=== PATIENT | male | born 1955 | race Caucasian/White ===

== ENCOUNTER 2016-07-09 09:32 | Inpatient (IN) | payer BC ==
[2016-07-05 10:17] VITALS: BMI 38.0
[2016-07-09] VITALS (11 sets, daily range): BP systolic 129–181; BP diastolic 66–93; PULSE 77–93; TEMP 36.2–37.2; O2SAT 92–96; Ht 177.8 cm; Wt 120.5 kg
[~2016-07-09] VITALS: Ht 177.8 cm; Wt 120.5 kg
[~2016-07-09 09:32] MED LIST: DUTA0.5C PO; FERR325T5 PO; LATA0.009 OPB; LOSA25TA18 PO; METF1000 PO; PRLSR20 PO; ROSU40TA PO
[2016-07-09] MEDS ORDERED: LIDOCAINE HCL 2% 2 ML VIAL (20MG/ML) ONE (10:25)
[2016-07-09] MEDS ORDERED: PROPOFOL IV EMULSION 10 MG/ML 20 ML VIAL IV ONE (10:25)
--- NOTE | 2016-07-09 11:32 | Anesthesiology Progress Note ---
Anesthesia Progress Note Date of Service Jul 09, 2016. Progress Notes Patient evaluated and chart reviewed. Patient is a 61 year old M scheduled for an upper and lower endoscopy to evaluate anemia. He did have a stress test a few weeks ago which was abnormal with stress and he has been getting progressively short of breath. According to the patient, cardiology wanted to evaluate the source of anemia before proceeding with his coronary workup and potentially committing him to anti platelet therapy. Since this time he has been placed on iron supplementation which failed to significantly increase his hct and he is infact mildly more short of breath with exertion. I did check another H/H today and his hemoglobin was 8.2, which appears to be a low point for his recent labs. Given his probable coronary disease and significant symptoms, I feel that the patient could benefit from transfusion prior to undergoing a significant anesthetic and procedure. I have discussed the patient with the [facility] Hospitalist who will accept the patient on the floor and we will tenatively plan to proceed with his colonoscopy and EGD as soon as possible.
[2016-07-09] MEDS ORDERED: ONDANSETRON INJ 2 MG/ML 2 ML VIAL IV PRN (12:15)
[2016-07-09] MEDS ORDERED: GLUCOSE 10 TABS/TUBE PO PRN (12:15)
[2016-07-09] MEDS ORDERED: DEXTROSE 50% 50 ML SYR IV PRN (12:15)
[2016-07-09] MEDS ORDERED: GLUCOSE 40% GEL 15 GM TUBE PO PRN (12:15)
[2016-07-09] MEDS ORDERED: GLUCAGON FOR INJ 1 MG VIAL SQ PRN (12:15)
[2016-07-09] MEDS ORDERED: ACETAMINOPHEN 325 MG TAB PO PRN (12:15)
[2016-07-09] MEDS ORDERED: MULT-922 PO (12:22)
[2016-07-09] MEDS ORDERED: OXYC-57 PO (12:22)
[2016-07-09] MEDS ORDERED: TRMO2580 TOP (12:22)
--- NOTE | 2016-07-09 13:10 | History and Physical ---
History & Physical Date & Time of Service: Jul 09, 2016 at 12:29 Chief Complaint: Anemia, Fatigue, Beeper 770 Primary Care Physician: Fady Barone M.D. History of Present Illness Source: patient This is a 61 y/o male with PMHx of DM 2, REMBERTO on CPAP, HTN, Dyslipidemia and other problems as outlined below who presents to the hospital for upper and lower endoscopy to evaluate anemia. Pt reports that he has been experiencing progressively worsening exertional dyspnea for the past few months. He also reports 2 episodes of chest pain while at rest that he describes as 1/10 central chest "pressure" that does not radiate anywhere. The sxs lasted a few minutes before resolving completely. Pt had a stress test done a few weeks ago which was + for inducible ischemia. According to the patient, he was scheduled for a cardiac catheterization however the procedure was cancelled due to anemia and cardiology wanted to evaluate the source of anemia before proceeding with coronary workup. Patient presented to the endoscopy lab this morning for his scheduled procedures. His HgB was noted to be 8.2. In the setting of possible coronary disease, anesthesia felt patient would benefit from transfusion prior to being scoped. Pt denies fever/chills, palpitations, abd pain, N/V, hematochezia, melena, bladder issues, LE edema ,calf pain, lightheadedness/ dizziness. 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) Allergies Coded Allergies: Nickel (Verified Allergy, Unknown, RASH, 07/05/16) Tetanus Toxoid (Verified Allergy, Unknown, ITCHING AND RASH, 07/05/16) Home Medications Scheduled Dutasteride (Avodart), 0.5 MG PO QAM Ferrous Sulfate (Ferrous Sulfate), 1 TAB PO BID Latanoprost 0.005% Oph (Xalatan 0.005% Oph), 1 DROP OPB QPM Losartan Potassium (Cozaar), 25 MG PO HS Metformin Hcl (Glucophage), 1,000 MG PO BID Multiple Vitamins W/ Minerals (Multivitamin Adults), 1 TAB PO DAILY Omeprazole (Prilosec), 20 MG PO BID Rosuvastatin Calcium (Crestor), 40 MG PO HS Triamcinolone Acetonide (Topic (Triamcinolone Acet 0.025%), 1 APPLN TOP BID Scheduled PRN Oxycodone/Acetaminophen 5MG/325MG (Percocet 5MG/325MG), 1 TABLET PO Q6H PRN for Pain Review of Systems Constitutional: + fatigue, No chills, No fever, No sweats, No weakness Eyes: No worsening of vision ENT: No hearing loss Respiratory: + dyspnea on exertion, + shortness of breath, No cough, No dyspnea at rest Cardiovascular: + chest pain, No claudication, No edema, No palpitations Abdomen: No GI bleeding, No constipation, No diarrhea, No nausea, No pain, No vomiting Musculoskeletal: No calf pain, No swelling Genitourinary - Male: No dysuria Neurologic: No weakness Psychiatric: No depression symptoms Endocrine: + fatigue Hematologic / Lymphatic: No abnormal bleeding/bruising Integumentary: No new/changing skin lesions Physical Exam Vital Signs Date Time Temp Pulse Resp B/P Pulse Ox O2 Delivery O2 Flow Rate FiO2 07/09/16 10:18 36.9 81 20 131/76 96 Room Air General Appearance: WD/WN, no apparent distress, + obese, + pertinent finding ( Pt is sitting in bed with at bedside) Head: normocephalic, atraumatic Eyes: normal inspection ENT: hearing grossly normal Neck: supple Respiratory/Chest: chest non-tender, lungs clear, normal breath sounds, no respiratory distress Cardiovascular: regular rate, rhythm, no edema, no murmur Abdomen/GI: normal bowel sounds, non tender, soft Back: normal inspection Extremities/Musculoskelatal: normal inspection, no calf tenderness, no pedal edema Neurologic/Psych: alert, normal mood/affect, oriented x 3 Skin: normal color, warm/dry Diagnostics Laboratory Results Results Past 24 Hours Test 07/09/16 11:00 Range/Units Hemoglobin 8.2 14.0-18.0 g/dL Hematocrit 28.0 42-52 % Impression Assessment and Plan SYMPTOMATIC ANEMIA pt presented with exertional dyspnea for a few months -admit to med/surg -Hgb currently 8.2; will continue to monitor with H&H q 8h -will transfuse 2 units now in setting of possible coronary disease; transfuse PRN HgB <10 -check anemia panel -clear liquid diet; keep NPO after midnight -consult GI, Dr. Flores-plan for EGD and colonoscopy tmrw -pt appears to be hemodynamically stable -continue to monitor closely RECENT ABNORMAL STRESS TEST -stress test 06/22/16 + inducible ischemia -plan is for cardiac cath after anemia is addressed -pt currently denies chest pain -follows with cardiology, Dr. Trujillo DM 2 -recent A1C 7.4 -hold metformin -start ISS -monitor with BSG AC HS REMBERTO ON CPAP -pt may use CPAP brought from home BPH -cont Avodart GLAUCOMA -cont latanoprost HTN -BP stable -cont losartan -monitor DYSLIPIDEMIA -cont statin DVT PROPHYLAXIS -SCDs only in setting of GI bleed CODE STATUS -FULL CODE status per discussion with patient upon admission DISPO Pt seen in collaboration with Dr Ruiz. Please see his addendum for further details. Thanks! -Of note: patient will be followed by Dr. Gibbs starting tomorrow AM. VTE Prophylaxis VTE Risk Assessment Done? Y/N: Yes Risk Level: Moderate Note ATTENDING ADDENDUM Record reviewed. Patient interviewed and examined. Care coordinated with Genet Mejía PA-C. Please refer to her documentation for patient's history. Briefly, 61 YO male undergoing evaluation for progressive dyspnea on exertion. Recent outpatient stress test was positive. Found to be anemic. EGD and colonoscopy recommended to rule out GI pathology before proceeding with cardiac cath and possible PCI. EGD and colonoscopy were scheduled to be performed today. Found to have Hgb of 8.2, lower than last determination. Transfusion recommended before proceeding with endoscopies in light of positive stress test. Not experiencing any melena or hematochezia. EXAM: General- no distress VS- as noted Neck- no JVD Lungs- clear Heart- RRR, II/ systolic murmur at base Abdomen- + BS, soft, nontender Extremities- no pretibial edema or calf tenderness Neuro- alert, oriented DATA: Hgb 8.2. Fe 12, % transferrin sat 2, ferritin 5. Other lab studies as noted. ASSESSMENT AND PLAN: Microcytic anemia, Fe deficiency. Transfusion recommended before endoscopies in light of recent EST. Transfuse 2 units pRBC's today. Check repeat H/H in a.m. GI unable to perform elective endoscopies tomorrow, so they will need to be rescheduled as outpatient. Please refer to NNEKA Mejía's documentation for discussion of other issues. Hansel Ruiz MD .
[2016-07-09 14:21] LABS: BASO % 0.9 %; BASO ABS # 0.06 K/uL (0-0.2); HEMATOCRIT 29.4 % (42-52); IG% 0.3 %; LYMPH % 20.2 %; LYMPH ABS # 1.33 K/uL (1.2-3.4); MEAN CELL VOLUME 68.1 fL (80-100); MEAN CORPUSCULAR HEMOGLOBIN 20.1 pg (25-34); MEAN CORPUSCULAR HGB CONC 29.6 g/dl (32-36); MEAN PLATELET VOLUME 9.2 fL (7.4-10.4); MONO % 7.9 %; NEUT % 68.7 %; PLATELET COUNT 246 K/uL (130-400); RED BLOOD COUNT 4.32 M/uL (4.7-6.1); WHITE BLOOD COUNT 6.58 K/uL (4.8-10.8)
[2016-07-09 14:44] LABS: COMPLETE YES; GIANT PLATELETS 1+; MICROCYTOSIS PRESENT; POLYCHROMASIA 1+
[2016-07-09 14:45] LABS: BUN/CREATININE RATIO 9.2 (10-20); CALCIUM 8.9 mg/dl (8.5-10.1); CREATININE 0.73 mg/dl (0.60-1.40); POTASSIUM 3.8 mmol/L (3.5-5.1)
[2016-07-09 14:48] LABS: FERRITIN 5.1 ng/ml (8.0-388.0)
--- NOTE | 2016-07-09 15:06 | Gastrointestinal Consultation ---
Gastrointestinal Consultation Date of Consultation: Jul 09, 2016 Consulting Physician: Mark Reason for Consultation: anemia History of Present Illness Patient is a 61 year old male with past medical history significant for obstructive sleep apnea using CPAP, DMT2, dyslipidemia, BPH, anemia, obesity and HTN . He was scheduled for an EGD/Colonoscopy today with Dr. Flores. This was not completed due to low HGB and recent cardiac complaints of worsening SOB with activity. The case was cancelled by anesthesia because of concerns about cardiac risk factors and symptoms. He was admitted for blood transfusion and a thorough cardiac work up. 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 His SOB has progressively worsened over the course of this past month. He was seen and evaluated this afternoon. A repeat HGB was obtained today, 8.2. He denies any GI complaints at this time. He reports that he is very hungry and would like to eat if he is not having any procedures done over the weekend. He is sitting upright in bed with his . Denies any history of black/bloody stools or emesis. No fever, chills, chest pain, SOB at rest. Colonoscopy 12/07/[address] Vinson: The perianal and digital rectal examinations were normal. Pertinent negatives include normal sphincter tone and no palpable rectal lesions. The terminal ileum appeared normal. The entire examined colon appeared normal on direct and retroflexion views. EGD: not previously completed. 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) Allergies Coded Allergies: Nickel (Verified Allergy, Unknown, RASH, 07/05/16) Tetanus Toxoid (Verified Allergy, Unknown, ITCHING AND RASH, 07/05/16) Current Medications Home Meds and Scripts Medications Dose Route/Sig Max Daily Dose Days Date Category Multivitamin Adults (Multiple Vitamins W/ Minerals) 1 Tab Tab 1 Tab PO DAILY 07/09/16 Reported Triamcinolone Acet 0.025% (Triamcinolone Acetonide (Topic) 0.025 % Oin 1 Appln TOP BID 07/09/16 Reported Percocet 5MG/325MG (Oxycodone/Acetaminophen) Tab 1 Tablet PO Q6H PRN 07/09/16 Reported Crestor (Rosuvastatin Calcium) 40 Mg Tab 40 Mg PO HS 07/05/16 Reported Ferrous Sulfate 325 Mg Tab 1 Tab PO BID 07/05/16 Reported Prilosec (Omeprazole) 20 Mg Capcr 20 Mg PO BID 07/05/16 Reported Glucophage (Metformin Hcl) 1,000 Mg Tab 1,000 Mg PO BID 07/05/16 Reported Avodart (Dutasteride) 0.5 Mg Cap 0.5 Mg PO QAM 11/05/12 Reported Cozaar (Losartan Potassium) 25 Mg Tab 25 Mg PO HS 11/05/12 Reported Xalatan 0.005% Oph (Latanoprost) Soln 1 Drop OPB QPM 11/05/12 Reported Review of Systems Constitutional: No chills, No fever, No weakness, No weight loss Respiratory: + shortness of breath, No cough Cardiac: No chest pain, No edema Abdomen: No GI bleeding, No constipation, No diarrhea, No dysphagia, No nausea , No odynophagia, No pain, No vomiting Skin: No color change, No itch, No jaundice, No rash Physical Exam Date Time Temp Pulse Resp B/P Pulse Ox O2 Delivery O2 Flow Rate FiO2 07/09/16 13:20 36.2 77 18 130/83 93 Room Air 07/09/16 13:20 36.2 77 18 130/83 93 Room Air 07/09/16 13:20 93 Room Air 07/09/16 10:18 36.9 81 20 131/76 96 Room Air General Appearance: no apparent distress Eyes: PERRL, EOMI ENT: hearing grossly normal Neck: supple, trachea midline Respiratory/Chest: lungs clear, normal breath sounds, no respiratory distress, no accessory muscle use Cardiovascular: regular rate, rhythm, no edema, no gallop, no JVD, no murmur Abdomen: normal bowel sounds, non tender, soft, no organomegaly Neurologic/Psych: alert, normal mood/affect, oriented x 3 Skin: normal color, no jaundice, warm/dry, no rash Laboratory Results Last 24 Hours Test 07/09/16 11:00 07/09/16 13:05 07/09/16 14:06 Hemoglobin 8.2 g/dL 8.7 g/dL Hematocrit 28.0 % 29.4 % Absolute Reticulocyte Count 0.10 10^6/uL Percent Reticulocyte Count 2.4 % Transferrin % Saturation % White Blood Count 6.58 K/uL Red Blood Count 4.32 M/uL Mean Corpuscular Volume 68.1 fL Mean Corpuscular Hemoglobin 20.1 pg Mean Corpuscular Hemoglobin Concent 29.6 g/dl Platelet Count 246 K/uL Mean Platelet Volume 9.2 fL Neutrophils (%) (Auto) 68.7 % Lymphocytes (%) (Auto) 20.2 % Monocytes (%) (Auto) 7.9 % Eosinophils (%) (Auto) 2.0 % Basophils (%) (Auto) 0.9 % Neutrophils # (Auto) 4.52 K/uL Lymphocytes # (Auto) 1.33 K/uL Monocytes # (Auto) 0.52 K/uL Eosinophils # (Auto) 0.13 K/uL Basophils # (Auto) 0.06 K/uL RDW Standard Deviation 46.0 fL RDW Coefficient of Variation 18.4 % Immature Granulocyte % (Auto) 0.3 % Immature Granulocyte # (Auto) 0.02 K/uL Giant Platelets 1+ Polychromasia 1+ Microcytosis PRESENT Impression Patient is a 61 year old male with GEOFF who was scheduled for an EGD/Colonoscopy today. This was postponed due to recent cardiac stress test and progressively worsening SOB. Will plan for EGD/Colonoscopy on 07/12/16 if patient is still admitted. Plan GI "ok" to advance diet today. Trend H&H - Transfuse as needed Cardiology referral - appreciate input No GI contraindication to discharge - if patient is stable and without any acute GI symptoms, we can plan to complete EGD and colonoscopy as an outpatient. If patient is still admitted for additional work up, we can arrange for an inpatient EGD/Colonoscopy on Tuesday07/12/16 if cleared by cardiology and anesthesia. Please order colonoscopy prep if patient wishes to proceed with procedures and is still admitted. Start the patient on a clear liquid diet on . Complete colonoscopy prep with 20 mg Dulcolax at 1700, 119 gm of miralax mixed with Gatorade at 1700 and 119 gm of miralax mixed with Gatorade at 2100. NPO at 2355 on 07/11/16. I have personally seen and examined patient with CYNDI Pina on . Her note reflects my exam and findings. I agree with her impression and plan. Will arrange rescheduling for endoscopy. Gilberto Flores M.D.
[2016-07-09] MEDS: INSULIN ASPART 100 UNITS/ML 3 ML PEN SC SCH ×2 (18:33→21:59)
--- NOTE | 2016-07-09 20:53 | CARDIOLOGY CONSULTATION ---
DATE OF CONSULTATION: 07/09/2016 HISTORY OF PRESENT ILLNESS: Rafael Cantu is a 61-year-old male seen in cardiology consultation per the request of Carlita Khan of the [facility] gastroenterology service for evaluation of shortness of breath and abnormal stress testing. 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 He has noted an insidious onset of fatigue and shortness of breath that he believes has occurred over the last few months. He is not able to pinpoint exactly when he started feeling poorly, but he notes that typical activities that he tolerated well, he has to pause and rest in order to catch his breath. He feels fatigue, shortness of breath, and feels that his heart races rapidly when he has these episodes. He had seen his primary care provider, Dr. Barone, and further testing was performed. An echocardiogram had been performed at [facility] on 06/22/2016 that revealed a normal LVEF and mild aortic valve stenosis. A pharmacologic nuclear stress test revealed ischemia in the inferior, inferolateral hughes with preserved LVEF. The patient had, therefore, seen Dr. Lucho Trujillo of [facility] cardiology in [place] on 06/29/2016. Due to the patient's abnormal stress test and symptoms, outpatient cardiac catheterization had been arranged. As part of his preoperative testing, however, the patient was found to have new onset anemia with a hemoglobin of 8.4 g/dL. This was significantly changed from his last hemoglobin level that had been performed in 2008. Because of the anemia, he was referred back to his primary care provider for further evaluation. Iron studies were performed as an outpatient and revealed iron deficiency. The patient was scheduled to have an outpatient colonoscopy and EGD for further evaluation of the anemia today, but on arrival when his history was reviewed including the abnormal stress test and recent shortness of breath, the patient's procedure was canceled and it was determined that he would be admitted for further anemia evaluation. His initial hemoglobin today at [facility] was 8.2 with a hematocrit of 28. His total iron was low at 12, his percent saturation was low at 2. His kidney function was noted to be stable. On questioning, the patient notes that in addition to his shortness of breath, he has had progressive constipation. He believes he had a colonoscopy about 5 years ago and was told that he had no significant abnormalities at that time and routine repeat surveillance colonoscopy was recommended. PAST MEDICAL HISTORY: 1. Type 2 diabetes mellitus. 2. Dyslipidemia. 3. Hypertension. 4. Obesity. 5. Obstructive sleep apnea, on CPAP. 6. Benign prostatic hypertrophy. SURGICAL HISTORY: 1. History of tonsillectomy. 2. History of rotator cuff repair bilaterally. SOCIAL HISTORY: The patient is a former smoker, having smoked up to 3 packs per day for 40 years. He quit in 2012 and he noted interval improvement in his breathing. He is and lives with his spouse who accompanies him at the bedside. 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 FAMILY HISTORY: The patient's mother at age 56 due to complication of throat cancer. The patient's father in his 80s due to complications of emphysema per the best of his recollection. He has a sister who is alive and has no heart disease to the best of his knowledge. ALLERGIES: 1. NICKEL. 2. TETANUS TOXOID. HOME MEDICATIONS: Avodart 0.5 mg daily in a.m., ferrous sulfate 1 tablet p.o. b.i.d., latanoprost 1 drop daily in p.m., losartan 25 mg at bedtime, Glucophage 1000 mg p.o. b.i.d., multivitamin 1 tablet by mouth daily, omeprazole 20 mg b.i.d., rosuvastatin 40 mg daily, triamcinolone apply topically 2 times per day. As needed MEDICATIONS: Oxycodone/acetaminophen 1 tablet by mouth q. 6 hours p.r.n. pain. REVIEW OF SYSTEMS: A 12-point review of systems was reviewed and is negative with the exception of that above. PHYSICAL EXAMINATION: VITAL SIGNS: Temperature 36.9, heart rate 83, blood pressure 155/81, respiratory rate 16, pulse oximetry 94% on room air. GENERAL APPEARANCE: Awake and oriented x3, no acute distress. HEENT: Extraocular muscles are intact. Pupils equal and reactive to light. NECK: No bruits, no cervical lymphadenopathy. CARDIOVASCULAR: 1/6 systolic murmur heard best at the right sternal border. LUNGS: Clear. No rales, rhonchi or wheezing. ABDOMEN: Soft, nontender, nondistended. EXTREMITIES: No clubbing, cyanosis or edema. NEUROLOGIC: No focal deficits. DIAGNOSTIC DATA: Recent echocardiogram and stress test as outlined above. The patient has not had an EKG yet in the hospital. FINAL IMPRESSION: 61-year-old male. 1. Recent complaint of progressive fatigue and exertional shortness of breath. 2. Abnormal cardiac testing with recent nuclear stress testing revealing inferior, inferolateral ischemia, preserved LVEF. 3. Mild aortic valve stenosis. 4. Iron deficiency anemia. DISCUSSION AND RECOMMENDATIONS: When I interviewed the patient in room 351-2, he was feeling well. He was receiving the first of his 2 units of packed red blood cells and he was tolerating this well. He notes no resting symptoms. He notes no lovely chest discomfort, just shortness of breath. At this point, I described to the patient that we have two issues that we need to deal with. His stress test is suggestive of underlying coronary artery disease. Coronary angiography had been recommended; however, surgical or percutaneous revascularization would not be possible without being on antiplatelet therapy. The clinical question at this point is how to address these 2 problems and in what order they should be addressed. If he was to have need for percutaneous coronary intervention, he would need dual antiplatelet therapy and of course this could not be performed with ongoing issues with anemia. Would recommend optimizing his hemoglobin with transfusion of packed red blood cells and proceed with endoscopy including EGD and colonoscopy with the knowledge that the stress test of course was performed in the setting of anemia. Optimizing his hemoglobin should reduce his ischemic burden. After it is determined that he is a candidate for antiplatelet therapy, would then proceed with diagnostic cardiac catheterization. In terms of the timing of the colonoscopy, depending upon how the patient feels after his transfusion therapy, this can be revisited to determine if this should be performed as an inpatient or if the patient can be discharged to have the procedure done as soon as possible as an outpatient. It is noted that the patient's complex history will have to be taken into account when his procedures are scheduled so that the providers caring for him including anesthesia, cardiology, and GI are well aware of what is going on before he arrives for any future scheduled procedure. JOSELYN
[2016-07-09] MEDS ORDERED: LATANOPROST 0.005% OP SOLN 2.5 ML BTL OPB SCH (21:00)
[2016-07-09] MEDS ORDERED: ROSUVASTATIN CALCIUM 20 MG TAB PO SCH (21:00)
[2016-07-09] MEDS ORDERED: LOSARTAN POTASSIUM 25 MG TAB PO SCH (21:00)
[2016-07-09] MEDS: PANTOprazole SOD 40 MG TAB PO SCH (21:47)
[2016-07-09] MEDS: TRIAMCINOLONE ACET 0.025% CR 15 GM TUBE EXT SCH (21:59)
[2016-07-10] VITALS (10 sets, daily range): BP systolic 122–176; BP diastolic 70–98; PULSE 72–81; TEMP 36.4–36.9; O2SAT 91–95
[2016-07-10 07:09] LABS: HEMATOCRIT 32.8 % (42-52); MEAN CELL VOLUME 71.3 fL (80-100); MEAN CORPUSCULAR HEMOGLOBIN 21.3 pg (25-34); MEAN CORPUSCULAR HGB CONC 29.9 g/dl (32-36); MEAN PLATELET VOLUME 10.2 fL (7.4-10.4); PLATELET COUNT 237 K/uL (130-400); WHITE BLOOD COUNT 6.76 K/uL (4.8-10.8)
[2016-07-10 07:43] LABS: CALCIUM 8.8 mg/dl (8.5-10.1); CREATININE 0.82 mg/dl (0.60-1.40)
[2016-07-10] MEDS: PANTOprazole SOD 40 MG TAB PO SCH (09:13)
[2016-07-10] MEDS: INSULIN ASPART 100 UNITS/ML 3 ML PEN SC SCH ×3 (09:13→18:30)
[2016-07-10] MEDS: TRIAMCINOLONE ACET 0.025% CR 15 GM TUBE EXT SCH (09:13)
--- NOTE | 2016-07-10 11:37 | Discharge Instructions ---
Discharge Instructions Admission Reason for Admission: Anemia Discharge Discharge Diagnosis / Problem: SYMPTOMATIC ANEMIA /IRON DEFICIENCY Discharge Goals Goal(s): Increase independence, Improve disease control, Diagnostic testing Activity Recommendations Activity Limitations: resume your previous activity . Instructions / Follow-Up Instructions / Follow-Up HOSPITAL FOLLOW UP ON 07/13/2016 @ 11:[address] Fady Barone III, MD [facility] BLOOD WORK : CBC ( COMPLETE BLOOD COUNT ) ON Tuesday07/12/16 DO NOT TAKE -ASPIRIN , MOTRIN , ADVIL , NAPROXEN , IBUPROFEN , ALEVE - FOR PAIN -AVOID NSAID'S CAN CAUSE STOMACH ULCER CAUSING BLEEDING /ANEMIA CAN TAKE TYLENOL NEEDED FOR PAIN NOTIFY YOUR FAMILY PHYSICIAN FOR ANY DARK STOOL , BLOOD IN STOOL Current Hospital Diet Patient's current hospital diet: Diabetes Type 2 Diet, AHA Diet (Heart Healthy) Discharge Diet Recommended Diet: AHA Diet (Heart Healthy), Diabetes Type 2 Diet Pending Studies Studies pending at discharge: yes List of pending studies: BLOOD WORK : CBC ( COMPLETE BLOOD COUNT ) ON Tuesday07/12/16 Medical Emergencies . Who to Call and When: Medical Emergencies: If at any time you feel your situation is an emergency, please call 911 immediately. . Non-Emergent Contact Non-Emergency issues call your: Primary Care Provider . . "Provider Documentation" section prepared by Dinora Patel. VTE Core Measure Inpt VTE Proph given/why not?: Jaclyn Pepper SCD's [place] Drug Monitoring Program Search Results: no issues identified
[2016-07-10] MEDS ORDERED: PRT40 PO (11:38)
[2016-07-10] MEDS ORDERED: FERR325T5 PO (11:38)
[2016-07-10] MEDS ORDERED: ASCA500 PO (11:38)
[2016-07-10] MEDS ORDERED: ASCORBIC ACID 500 MG TAB PO SCH (12:00)
--- NOTE | 2016-07-10 13:54 | Progress Note ---
Internal Med Progress Note Date of Service: Jul 10, 2016. Provider Documentation: SUBJECTIVE: still has some tiredness no PIERRE or SOB , denies of any orthopnea no episode of dark to tarry stool no chest pain tolerating diet well OBJECTIVE: Vital Signs-as noted below Exam: General-no sign of distress , very pleasant Eyes-sclera non icteric, PERRLA/EOMI ENT-NAD Neck-no thyromegaly Lungs-CTA , no wheeze or rales Heart-regular S1/S2 Abdomen-soft, non tender Extremities-no lower ext rash or deformity , no rash Neuro-no focal deficit Lab data as noted below. ASSESSMENT & PLAN: SYMPTOMATIC ANEMIA : presented for evaluation of generalized weakness, fatigue , PIERRE Fe study : checked pre transfusion : iron 12 ( low ) /TIBC 481 ( H) / transferrin 369 ( H) /transferrin % saturation 2 ( L ) /Ferritin 5.1 L ( L ) Microcytic/ Fe deficiency anemia -MCV 66 with elevated retic count possible GI bleed -chronic -most likely upper GI pt screening Colonoscopy in 2011 -was found to be wnl , no prior EGD done risk factors -reports of taking Motrin 800 mg 2 -3 times daily for joint / arthritis pain has stopped taking in past few weeks noted occasional black tarry stool off and on for past 2-3 months no active GI bleed noted ,stool heme occult negative appreciated GI eval pt is transfused 2 units of PRBC Hb improved 8.2-> 9.8 -still feels fatigued and weak mild improvement of PIERRE will order for transfusion for 1 more Unit of PRBC , goal to have Hb > 10 ( given concern for underlying Possible CAD ) pt is asked to avoid NSAID's added PPI repeat CBC in early next week , prior to Hospital follow up with PCP need to have GI eval and reschedule for EGD and Colonoscopy for possible peptic ulcer disease POSSIBLE CAD : complains of SOB on exertion , occasional chest heaviness with activity echocardiogram sone at [facility] on 06/22/2016 Normal LVEF and mild aortic valve stenosis. Pharmacologic nuclear stress test revealed ischemia in the inferior, inferolateral hughes with preserved LVEF. pt was seen Dr. Lucho Trujillo of [facility] cardiology in [place] on 2016. Out pt cardiac catheterization was schedule on 07/01/16 at [facility] Cardiac cath was cancelled as Preoperative testing showed significant anemia with a hemoglobin of 8.4 g/dL. anemia has to be corrected and needs GI eval with EGD /colonoscopy to assess for GI bleed as pt will need to be on dual antiplatelet therapy if any cardiac intervention needed pt given 2 units of PRBC transfusion , Hb improved to 9.8 no complain of chest pain or SOB no ischemic changes in EKG will transfuse one more unit of PRBC in order to achieve Hb > 10 repeat CBC as out pt continue follow up with Cardiology pt is asked to avoid anti platelets -no Aspirin till GI work up is done TYPE 2 DM : cont Metformin ordered for insulin SSI while in hospital DVT PROPHYLAXIS scd and teds Pharmacological anticoagulation avoided due to anemia DISPOSITION stable to be Discharge home today Vital Signs: Date Time Temp Pulse Resp B/P Pulse Ox O2 Delivery O2 Flow Rate FiO2 07/10/16 14:23 36.8 73 16 151/81 94 07/10/16 14:00 36.9 74 18 144/77 92 07/10/16 13:46 36.5 80 16 176/83 07/10/16 11:20 36.6 81 14 146/70 93 Room Air 07/10/16 09:49 93 Room Air 07/10/16 09:15 Room Air 07/10/16 08:15 36.5 72 18 138/98 93 Room Air 07/09/16 23:14 36.5 79 18 146/90 96 CPAP 07/09/16 22:19 36.7 82 18 178/81 94 07/09/16 21:43 36.8 83 18 130/66 93 Room Air 07/09/16 21:00 36.7 82 18 181/90 96 07/09/16 20:01 Room Air 07/09/16 19:50 36.7 81 18 139/73 92 07/09/16 19:18 37.0 83 18 138/81 94 07/09/16 18:53 36.9 83 16 155/81 94 07/09/16 18:31 36.9 91 18 170/93 94 07/09/16 18:20 37.2 93 18 152/82 93 07/09/16 15:57 Room Air 07/09/16 15:08 36.3 91 18 129/77 92 Room Air Lab Results: Results Past 24 Hours Test 07/09/16 16:47 07/09/16 20:16 07/10/16 06:50 07/10/16 07:48 Range/Units Bedside Glucose 248 161 195 70-99 mg/dl White Blood Count 6.76 4.8-10.8 K/uL Red Blood Count 4.60 4.7-6.1 M/uL Hemoglobin 9.8 14.0-18.0 g/dL Hematocrit 32.8 42-52 % Mean Corpuscular Volume 71.3 80-100 fL Mean Corpuscular Hemoglobin 21.3 25-34 pg Mean Corpuscular Hemoglobin Concent 29.9 32-36 g/dl RDW Standard Deviation 50.0 36.4-46.3 fL RDW Coefficient of Variation 19.3 11.5-14.5 % Platelet Count 237 130-400 K/uL Mean Platelet Volume 10.2 7.4-10.4 fL Sodium Level 140 136-145 mmol/L Potassium Level 4.0 3.5-5.1 mmol/L Chloride Level 105 98-107 mmol/L Carbon Dioxide Level 25 21-32 mmol/L Anion Gap 10.0 3-11 mmol/L Blood Urea Nitrogen 7 7-18 mg/dl Creatinine 0.82 0.60-1.40 mg/dl Est Creatinine Clear Calc Drug Dose 120.0 ml/min Estimated GFR () 109.1 Estimated GFR (Non- 94.1 BUN/Creatinine Ratio 9.0 10-20 Random Glucose 180 70-99 mg/dl Calcium Level 8.8 8.5-10.1 mg/dl Test 07/10/16 11:27 Range/Units Bedside Glucose 190 70-99 mg/dl
--- NOTE | 2016-07-10 13:56 | Discharge Summary ---
Discharge Summary Date of Service Jul 10, 2016. Discharge Summary Admission Date: Jul 09, 2016 at 12:13 Discharge Date: Jul 10, 2016 Discharge Disposition: Home Principal Diagnosis: SYMPTOMATIC ANEMIA /IRON DEFICIENCY Procedures: PRBC TRANSFUSION Consultations: [facility] CARD[facility] GASTROENTEROLOGY Pending Studies/Follow-Up: List of pending studies: BLOOD WORK : CBC ( COMPLETE BLOOD COUNT ) ON Tuesday07/12/16 Medication Reconciliation New Medications: Ascorbic Acid (Vitamin C) 500 Mg Tab 500 MG PO QAM for 30 Days, #30 TAB 3 Refills Pantoprazole (Pantoprazole Sodium) 40 Mg Tab 40 MG PO BID for 30 Days, #60 TAB 3 Refills Continued Medications: Dutasteride (Avodart) 0.5 Mg Cap 0.5 MG PO QAM Ferrous Sulfate (Ferrous Sulfate) 325 Mg Tab 1 TAB PO BID for 30 Days, #60 TABS 4 Refills (This prescription has been renewed ) Latanoprost 0.005% Oph (Xalatan 0.005% Oph) Soln 1 DROP OPB QPM Losartan Potassium (Cozaar) 25 Mg Tab 25 MG PO HS Metformin Hcl (Glucophage) 1,000 Mg Tab 1000 MG PO BID Multiple Vitamins W/ Minerals (Multivitamin Adults) 1 Tab Tab 1 TAB PO DAILY Oxycodone/Acetaminophen 5MG/325MG (Percocet 5MG/325MG) Tab 1 TABLET PO Q6H PRN for Pain, TAB Rosuvastatin Calcium (Crestor) 40 Mg Tab 40 MG PO HS Triamcinolone Acetonide (Topic (Triamcinolone Acet 0.025%) 0.025 % Oin 1 APPLN TOP BID, #30 GM 1 Refill Discontinued Medications: Omeprazole (Prilosec) 20 Mg Capcr 20 MG PO BID Admission Information HPI (per Admitting provider): This is a 61 y/o male with PMHx of DM 2, REMBERTO on CPAP, HTN, Dyslipidemia and other problems as outlined below who presents to the hospital for upper and lower endoscopy to evaluate anemia. Pt reports that he has been experiencing progressively worsening exertional dyspnea for the past few months. He also reports 2 episodes of chest pain while at rest that he describes as 1/10 central chest "pressure" that does not radiate anywhere. The sxs lasted a few minutes before resolving completely. Pt had a stress test done a few weeks ago which was + for inducible ischemia. According to the patient, he was scheduled for a cardiac catheterization however the procedure was cancelled due to anemia and cardiology wanted to evaluate the source of anemia before proceeding with coronary workup. Patient presented to the endoscopy lab this morning for his scheduled procedures. His HgB was noted to be 8.2. In the setting of possible coronary disease, anesthesia felt patient would benefit from transfusion prior to being scoped. Pt denies fever/chills, palpitations, abd pain, N/V, hematochezia, melena, bladder issues, LE edema ,calf pain, lightheadedness/ dizziness. Physical Exam (per Admitting): General Appearance: WD/WN, no apparent distress, + obese, + pertinent finding (Pt is sitting in bed with at bedside) Head: normocephalic, atraumatic Eyes: normal inspection ENT: hearing grossly normal Neck: supple Respiratory/Chest: chest non-tender, lungs clear, normal breath sounds, no respiratory distress Cardiovascular: regular rate, rhythm, no edema, no murmur Abdomen/GI: normal bowel sounds, non tender, soft Back: normal inspection Extremities/Musculoskelatal: normal inspection, no calf tenderness, no pedal edema Neurologic/Psych: alert, normal mood/affect, oriented x 3 Skin: normal color, warm/dry Hospital Course SYMPTOMATIC ANEMIA : presented for evaluation of generalized weakness, fatigue , PIERRE Fe study : checked pre transfusion : iron 12 ( low ) /TIBC 481 ( H) / transferrin 369 ( H) /transferrin % saturation 2 ( L ) /Ferritin 5.1 L ( L ) Microcytic/ Fe deficiency anemia -MCV 66 with elevated retic count possible GI bleed -chronic -most likely upper GI pt screening Colonoscopy in 2011 -was found to be wnl , no prior EGD done risk factors -reports of taking Motrin 800 mg 2 -3 times daily for joint / arthritis pain has stopped taking in past few weeks noted occasional black tarry stool off and on for past 2-3 months no active GI bleed noted ,stool heme occult negative appreciated GI eval pt is transfused 2 units of PRBC Hb improved 8.2-> 9.8 -still feels fatigued and weak mild improvement of PIERRE will order for transfusion for 1 more Unit of PRBC , goal to have Hb > 10 ( given concern for underlying Possible CAD ) pt is asked to avoid NSAID's added PPI repeat CBC in early next week , prior to Hospital follow up with PCP need to have GI eval and reschedule for EGD and Colonoscopy for possible peptic ulcer disease POSSIBLE CAD : complains of SOB on exertion , occasional chest heaviness with activity echocardiogram sone at [facility] on 06/22/2016 Normal LVEF and mild aortic valve stenosis. Pharmacologic nuclear stress test revealed ischemia in the inferior, inferolateral hughes with preserved LVEF. pt was seen Dr. Lucho Trujillo of [facility] cardiology in [place] on 2016. Out pt cardiac catheterization was schedule on 07/01/16 at [facility] Cardiac cath was cancelled as Preoperative testing showed significant anemia with a hemoglobin of 8.4 g/dL. anemia has to be corrected and needs GI eval with EGD /colonoscopy to assess for GI bleed as pt will need to be on dual antiplatelet therapy if any cardiac intervention needed pt given 2 units of PRBC transfusion , Hb improved to 9.8 no complain of chest pain or SOB no ischemic changes in EKG will transfuse one more unit of PRBC in order to achieve Hb > 10 repeat CBC as out pt continue follow up with Cardiology pt is asked to avoid anti platelets -no Aspirin till GI work up is done TYPE 2 DM : cont Metformin ordered for insulin SSI while in hospital DVT PROPHYLAXIS scd and teds Pharmacological anticoagulation avoided due to anemia DISPOSITION stable to be Discharge home today Total time spent on discharge = This includes examination of the patient, discharge planning, medication reconciliation, and communication with other providers. Discharge Instructions Discharge Instructions Admission Reason for Admission: Anemia Discharge Discharge Diagnosis / Problem: SYMPTOMATIC ANEMIA /IRON DEFICIENCY Discharge Goals Goal(s): Increase independence, Improve disease control, Diagnostic testing Activity Recommendations Activity Limitations: resume your previous activity . Instructions / Follow-Up Instructions / Follow-Up HOSPITAL FOLLOW UP ON 07/13/2016 @ 11:[address] Fady Barone III, MD [facility] BLOOD WORK : CBC ( COMPLETE BLOOD COUNT ) ON Tuesday07/12/16 DO NOT TAKE -ASPIRIN , MOTRIN , ADVIL , NAPROXEN , IBUPROFEN , ALEVE - FOR PAIN -AVOID NSAID'S CAN CAUSE STOMACH ULCER CAUSING BLEEDING /ANEMIA CAN TAKE TYLENOL NEEDED FOR PAIN NOTIFY YOUR FAMILY PHYSICIAN FOR ANY DARK STOOL , BLOOD IN STOOL Current Hospital Diet Patient's current hospital diet: Diabetes Type 2 Diet, AHA Diet (Heart Healthy) Discharge Diet Recommended Diet: AHA Diet (Heart Healthy), Diabetes Type 2 Diet Pending Studies Studies pending at discharge: yes List of pending studies: BLOOD WORK : CBC ( COMPLETE BLOOD COUNT ) ON Tuesday07/12/16 Medical Emergencies . Who to Call and When: Medical Emergencies: If at any time you feel your situation is an emergency, please call 911 immediately. . Non-Emergent Contact Non-Emergency issues call your: Primary Care Provider . . "Provider Documentation" section prepared by Dinora Patel. VTE Core Measure Inpt VTE Proph given/why not?: Jaclyn Pepper SCD's [place] Drug Monitoring Program Search Results: no issues identified
[2016-07-10] MEDS: FERROUS SULFATE 325 MG TAB PO SCH ×2 (14:10→18:27)
== END 2016-07-10 19:00 | disposition home or self-care (01) | DRG 812 ==
LOC: ENRESERVDT → ENRESERVTM → C.GI 09:32 → C.MSW 12:13
PROVIDERS: ADMIT Hospitalist; ATTEND Hospitalist
DX: D50.9 Iron deficiency anemia, unspecified (principal); K92.2 Gastrointestinal hemorrhage, unspecified; E11.9 Type 2 diabetes mellitus without complications; E78.5 Hyperlipidemia, unspecified; N40.0 Benign prostatic hyperplasia without lower urinary tract symptoms; G47.33 Obstructive sleep apnea (adult) (pediatric); K27.9 Peptic ulcer, site unspecified, unspecified as acute or chronic, without hemorrhage or perforation; H40.9 Unspecified glaucoma; I25.10 Atherosclerotic heart disease of native coronary artery without angina pectoris; I10 Essential (primary) hypertension; E66.9 Obesity, unspecified; Z68.38 Body mass index [BMI] 38.0-38.9, adult; Z87.891 Personal history of nicotine dependence; Z90.89 Acquired absence of other organs; Z98.890 Other specified postprocedural states; Z80.8 Family history of malignant neoplasm of other organs or systems; Z82.5 Family history of asthma and other chronic lower respiratory diseases; Z79.84 Long term (current) use of oral hypoglycemic drugs; Z79.899 Other long term (current) drug therapy

== ENCOUNTER → 2016-07-13 | Day surgery (SDC) | payer BC ==
[~2016-07-13] VITALS: Ht 177.8 cm; Wt 121.0 kg
[~2016-07-13] MED LIST changes: +ASCA500 PO; +LIDOCAINE HCL 2% 2 ML VIAL (20MG/ML) ONE; +MULT-922 PO; +ONDANSETRON INJ 2 MG/ML 2 ML VIAL IV PRN; +OXYC-57 PO; -PRLSR20 PO; +PROPOFOL IV EMULSION 10 MG/ML 20 ML VIAL IV ONE; +PRT40 PO; +TRMO2580 TOP
[2016-07-13 14:13] VITALS: Ht 177.8 cm; Wt 121.0 kg
--- NOTE | 2016-07-13 14:22 | Endo History and Physical ---
History & Physical Date of Service: Jul 13, 2016. Chief Complaint: Low blood count Referring Physician: Dr. Barone History of Present Illness Patient referred for evaluation of iron deficiency anemia, negative colonoscopy 3 years ago. No hematochezia, melena, difficulty swallowing or weight loss. Past Surgical History Hx Cardiac Surgery: No Hx Internal Defibrillator: No Hx Pacemaker: No Hx Abdominal Surgery: No Hx Post-Op Nausea and Vomiting: No Hx Cancer Surgery: No Hx Thoracic Surgery: No Hx Orthopedic: Yes (Bilateral shoulder and left wrist) Hx Urinary Tract Surgery: No Social History Smoking Status: Former Smoker Hx Substance Use: No Hx Alcohol Use: No Allergies Coded Allergies: Nickel (Verified Allergy, Unknown, RASH, 07/05/16) Tetanus Toxoid (Verified Allergy, Unknown, ITCHING AND RASH, 07/05/16) Current Medications Reported Home Medications Medications Dose Route/Sig Max Daily Dose Days Date Category Vitamin C (Ascorbic Acid) 500 Mg Tab 500 Mg PO QAM 30 07/10/16 Rx Pantoprazole Sodium (Pantoprazole) 40 Mg Tab 40 Mg PO BID 30 07/10/16 Rx Ferrous Sulfate 325 Mg Tab 1 Tab PO BID 30 07/10/16 Rx Multivitamin Adults (Multiple Vitamins W/ Minerals) 1 Tab Tab 1 Tab PO DAILY 07/09/16 Reported Triamcinolone Acet 0.025% (Triamcinolone Acetonide (Topic) 0.025 % Oin 1 Appln TOP BID 07/09/16 Reported Percocet 5MG/325MG (Oxycodone/Acetaminophen) Tab 1 Tablet PO Q6H PRN 07/09/16 Reported Crestor (Rosuvastatin Calcium) 40 Mg Tab 40 Mg PO HS 07/05/16 Reported Glucophage (Metformin Hcl) 1,000 Mg Tab 1,000 Mg PO BID 07/05/16 Reported Avodart (Dutasteride) 0.5 Mg Cap 0.5 Mg PO QAM 11/05/12 Reported Cozaar (Losartan Potassium) 25 Mg Tab 25 Mg PO HS 11/05/12 Reported Xalatan 0.005% Oph (Latanoprost) Soln 1 Drop OPB QPM 11/05/12 Reported Vital Signs Weight (Kilograms): 121 Height (Feet): 5 Height (Inches): 10 Physical Exam General Appearance: no apparent distress Respiratory/Chest: Auscultation: breath sounds normal Cardiovascular: Heart Auscultation: RRR Abdomen: Inspection & Palpation: soft Assessment and Plan Patient for EGD / colonoscopy today. Risks discussed to include bleeding, infection, perforation, pain, infection, and missed polyps.
--- NOTE | 2016-07-13 15:41 | GI REPORT ---
Procedure Date: 07/13/2016 3:02 PM Procedure: Upper GI endoscopy Indications: Iron deficiency anemia Medicines: Monitored Anesthesia Care Complications: No immediate complications. Estimated blood loss: Minimal. Estimated Blood Loss: Estimated blood loss was minimal. Procedure: Pre-Anesthesia Assessment: - Prior to the procedure, a History and Physical was performed, and patient medications, allergies and sensitivities were reviewed. The patient's tolerance of previous anesthesia was reviewed. - The risks and benefits of the procedure and the sedation options and risks were discussed with the patient. All questions were answered and informed consent was obtained. - Patient identification and proposed procedure were verified prior to the procedure by the physician, the nurse and the four slide machine setter. The procedure was verified in the procedure room. - Pre-procedure physical examination revealed no contraindications to sedation. - ASA Grade Assessment: III - A patient with severe systemic disease. - After reviewing the risks and benefits, the patient was deemed in satisfactory condition to undergo the procedure. - The anesthesia plan was to use monitored anesthesia care (MAC). - Immediately prior to administration of medications, the patient was re-assessed for adequacy to receive sedatives. - The heart rate, respiratory rate, oxygen saturations, blood pressure, adequacy of pulmonary ventilation, and response to care were monitored throughout the procedure. - The physical status of the patient was re-assessed after the procedure. After obtaining informed consent, the endoscope was passed under direct vision. Throughout the procedure, the patient's blood pressure, pulse, and oxygen saturations were monitored continuously. The scope was introduced through the mouth, and advanced to the third part of duodenum. The upper GI endoscopy was accomplished without difficulty. The patient tolerated the procedure well. Findings: The examined esophagus was normal. The Z-line was irregular and was found 39 cm from the incisors. Biopsies were taken with a cold forceps for histology. Estimated blood loss was minimal. Diffuse mild inflammation characterized by erythema and granularity was found in the entire examined stomach. Biopsies were taken with a cold forceps for histology. Estimated blood loss was minimal. The examined duodenum was normal. Biopsies were taken with a cold forceps for histology. Estimated blood loss was minimal. Impression: - Normal esophagus. - Z-line irregular, 39 cm from the incisors. Biopsied. - Gastritis. Biopsied. - Normal examined duodenum. Biopsied. Recommendation: - Perform a colonoscopy today. - Await pathology results. Marques Ferrara D.O. Marques Ferrara, DO 07/13/2016 3:40:40 PM This report has been signed electronically. Note Initiated On: 07/13/2016 3:02 PM I attest to the content of the Intraoperative Record and orders documented therein, exceptions below
--- NOTE | 2016-07-13 15:43 | Anesthesiology Progress Note ---
Anesthesia Post Op Note Date & Time Jul 13, 2016 at 15:43 Vital Signs Pain Intensity: 0 Vital Signs Past 12 Hours Date Time Temp Pulse Resp B/P Pulse Ox O2 Delivery O2 Flow Rate FiO2 07/13/16 14:20 36.8 92 20 158/88 100 Room Air Notes Mental Status: alert / awake / arousable, participated in evaluation Pt Amnestic to Procedure: Yes Nausea / Vomiting: adequately controlled Pain: adequately controlled Airway Patency, RR, SpO2: stable & adequate BP & HR: stable & adequate Hydration State: stable & adequate Anesthetic Complications: no major complications apparent
--- NOTE | 2016-07-13 15:45 | GI REPORT ---
Procedure Date: 07/13/2016 3:01 PM Procedure: Colonoscopy Indications: Iron deficiency anemia Medicines: Monitored Anesthesia Care Complications: No immediate complications. Estimated blood loss: Minimal. Estimated Blood Loss: Estimated blood loss was minimal. Procedure: Pre-Anesthesia Assessment: - Prior to the procedure, a History and Physical was performed, and patient medications, allergies and sensitivities were reviewed. The patient's tolerance of previous anesthesia was reviewed. - The risks and benefits of the procedure and the sedation options and risks were discussed with the patient. All questions were answered and informed consent was obtained. - Patient identification and proposed procedure were verified prior to the procedure by the physician, the nurse and the civil division deputy sheriff. The procedure was verified in the procedure room. - Pre-procedure physical examination revealed no contraindications to sedation. - ASA Grade Assessment: III - A patient with severe systemic disease. - After reviewing the risks and benefits, the patient was deemed in satisfactory condition to undergo the procedure. - The anesthesia plan was to use monitored anesthesia care (MAC). - Immediately prior to administration of medications, the patient was re-assessed for adequacy to receive sedatives. - The heart rate, respiratory rate, oxygen saturations, blood pressure, adequacy of pulmonary ventilation, and response to care were monitored throughout the procedure. - The physical status of the patient was re-assessed after the procedure. After I obtained informed consent, the scope was passed under direct vision. Throughout the procedure, the patient's blood pressure, pulse, and oxygen saturations were monitored continuously. The Scope was introduced through the anus and advanced to the terminal ileum. The colonoscopy was performed without difficulty. The patient tolerated the procedure well. The quality of the bowel preparation was adequate to identify polyps 6 mm and larger in size. Findings: The perianal and digital rectal examinations were normal. Pertinent negatives include normal sphincter tone. The terminal ileum appeared normal. A single medium-sized localized angioectasia with bleeding on contact was found in the cecum. Coagulation for tissue destruction using argon plasma at 1 liter/minute and 20 somers was successful. Estimated blood loss was minimal. A 18 mm polyp was found in the ascending colon. The polyp was semi-sessile. The polyp was removed with a piecemeal technique using a hot snare. Resection and retrieval were complete. Estimated blood loss was minimal. A 10 mm polyp was found in the sigmoid colon. The polyp was sessile. The polyp was removed with a hot snare. Resection and retrieval were complete. Estimated blood loss was minimal. Internal hemorrhoids were found during retroflexion. The hemorrhoids were mild. The exam was otherwise without abnormality. Impression: - The examined portion of the ileum was normal. - A single colonic angioectasia. Treated with argon plasma coagulation (APC). I suspect this may be the etiology to the patient's anemia. - One 18 mm polyp in the ascending colon, removed piecemeal using a hot snare. Resected and retrieved. - One 10 mm polyp in the sigmoid colon, removed with a hot snare. Resected and retrieved. - Internal hemorrhoids. - The examination was otherwise normal. Recommendation: - Discharge patient to home (ambulatory). - Advance diet as tolerated today. - Await pathology results. - Repeat colonoscopy in 3 years for surveillance based on pathology results. - Try an iron supplment 1 time daily - If anemia persists would consider further evaluation with Wireless Capsule Endoscopy to screen for AVMs in the small bowel. Marques Ferrara D.O. Marques Ferrara, DO 07/13/2016 3:44:50 PM This report has been signed electronically. Note Initiated On: 07/13/2016 3:01 PM I attest to the content of the Intraoperative Record and orders documented therein, exceptions below
--- NOTE | 2016-07-13 15:47 | Discharge Instructions ---
Endoscopy Patient Instructions Date / Procedure(s) Performed Jul 13, 2016. Colonoscopy, EGD Allergy Information Coded Allergies: Nickel (Verified Allergy, Unknown, RASH, 07/05/16) Tetanus Toxoid (Verified Allergy, Unknown, ITCHING AND RASH, 07/05/16) Discharge Date / Findings Jul 13, 2016. 1 cecal AVM 2 colon polyps Internal Hemorrhoids Medication Instructions Reported Home Medications Medications Dose Route/Sig Max Daily Dose Days Date Category Vitamin C (Ascorbic Acid) 500 Mg Tab 500 Mg PO QAM 30 07/10/16 Rx Pantoprazole Sodium (Pantoprazole) 40 Mg Tab 40 Mg PO BID 30 07/10/16 Rx Ferrous Sulfate 325 Mg Tab 1 Tab PO BID 30 07/10/16 Rx Multivitamin Adults (Multiple Vitamins W/ Minerals) 1 Tab Tab 1 Tab PO DAILY 07/09/16 Reported Triamcinolone Acet 0.025% (Triamcinolone Acetonide (Topic) 0.025 % Oin 1 Appln TOP BID 07/09/16 Reported Percocet 5MG/325MG (Oxycodone/Acetaminophen) Tab 1 Tablet PO Q6H PRN 07/09/16 Reported Crestor (Rosuvastatin Calcium) 40 Mg Tab 40 Mg PO HS 07/05/16 Reported Glucophage (Metformin Hcl) 1,000 Mg Tab 1,000 Mg PO BID 07/05/16 Reported Avodart (Dutasteride) 0.5 Mg Cap 0.5 Mg PO QAM 11/05/12 Reported Cozaar (Losartan Potassium) 25 Mg Tab 25 Mg PO HS 11/05/12 Reported Xalatan 0.005% Oph (Latanoprost) Soln 1 Drop OPB QPM 11/05/12 Reported Provider Instructions Activity Restrictions - No exercising or heavy lifting for 24 hours. - Do not drink alcohol the day of the procedure. - Do not drive a car or operate machinery until the day after the procedure. - Do not make any important decisions or sign important papers in 24 hours after the procedure. Following Day: - Return to full activity which may include returning to work/school. Diet Start your diet with liquids and light foods (jello, soup, juice, toast). Then eat your usual diet if not nauseated. Treatment For Common After Affects For mild abdominal pain, bloating, or excessive gas: - Rest - Eat lightly - Lie on right side Follow-Up Information Await pathology results Repeat colonoscoy in 3 years Would consider a monthly CBC, if anemia persists would then arrange a wireless capsule endoscopy to evaluate the small bowel. Anesthesia Information What You Should Know You have had a procedure that required some medicine to reduce anxiety and discomfort. This treatment is called moderate sedation. After receiving the treatment, you may be sleepy, but you will be able to breathe on your own. The effects of the treatment may last for several hours. Follow these instructions along with Activity/Diet recommendations noted above: * Do NOT do anything where dizziness or clumsiness would be dangerous. * Rest quietly at home today, then you can be up and about tomorrow. * Have a responsible person stay with you the rest of today. * You may have had an I.V. today. If so, you may take the dressing off later today. Recommendations Call your doctor if: * Trouble breathing * Continuous vomiting for more than 24 hours * Temperature above 101 degrees * Severe abdominal pain or bloating * Pain not relieved by pain medicine ordered * There is increased drainage or redness from any incision * A large amount of rectal bleeding greater than 2-3 tablespoons. (If you had a polyp/s removed or have hemorrhoids, a small amount of blood - from the rectum is to be expected.) * You have any unanswered questions or concerns. IN THE EVENT OF A SERIOUS EMERGENCY, GO TO THE NEAREST EMERGENCY ROOM Your discharge instructions were prepared by provider Marques Ferrara. Patient Instructions Signature Page Rafael Cantu Patient (or Guardian) Signature/Date: I have read and understand the instructions given to me by my caregivers. Caregiver/RN/Doctor Signature/Date: The above-named patient and/or guardian has received patient instructions on this date. + Original Patient Signature Page (only) stays with chart. Please make copy for patient.
[2016-07-13 16:10] VITALS: BP 127/84; PULSE 83; O2SAT 96
== END | disposition home or self-care (01) ==
LOC: C.GI 13:35
PROVIDERS: ATTEND Internal Medicine Gastroenterology
DX: D50.9 Iron deficiency anemia, unspecified (principal); K55.21 Angiodysplasia of colon with hemorrhage; D12.2 Benign neoplasm of ascending colon; D12.5 Benign neoplasm of sigmoid colon; K64.8 Other hemorrhoids; K29.70 Gastritis, unspecified, without bleeding; E11.9 Type 2 diabetes mellitus without complications; G47.33 Obstructive sleep apnea (adult) (pediatric); Z87.891 Personal history of nicotine dependence; Z88.7 Allergy status to serum and vaccine; Z90.89 Acquired absence of other organs; Z68.35 Body mass index [BMI] 35.0-35.9, adult

== ENCOUNTER 2020-10-01 05:42 | Observation (INO) ==
--- NOTE | 2020-08-28 14:05 | PAT Medication Instructions ---
Medication Instructions Date of Service August 28, 2020 Home Medications ascorbic acid (vitamin C) [Vitamin C] 500 mg PO DAILY aspirin [Aspir-Low] 81 mg PO DAILY dutasteride 0.5 mg PO QAM ferrous sulfate [iron] 325 mg PO DAILY losartan 25 mg PO QAM metformin 1,000 mg PO BID multivitamin 1 tab PO DAILY rosuvastatin 40 mg PO HS glimepiride 2 mg PO QAM DO NOT take the morning of surgery ascorbic acid (vitamin C) [Vitamin C] 500 mg PO DAILY ferrous sulfate [iron] 325 mg PO DAILY losartan 25 mg PO QAM metformin 1,000 mg PO BID multivitamin 1 tab PO DAILY glimepiride 2 mg PO QAM Take morning of surgery With a small sip of water, OTHERWISE NOTHING TO EAT OR DRINK AFTER MIDNIGHT: aspirin [Aspir-Low] 81 mg PO DAILY (take morning of surgery unless told otherwise by surgeon) dutasteride 0.5 mg PO QAM Take evening before surgery metformin 1,000 mg PO BID rosuvastatin 40 mg PO HS Other Notes If you have any questions please call us at [phone] or [phone] or [phone] or [phone]
--- NOTE | 2020-08-29 10:10 | Anesthesiology Consultation ---
Date of Service August 29, 2020 Assessment & Plan (1) Encounter for pre-operative examination: COVID Status: As of 08/29 assessment, patient denies travel to endemic area, known exposure/sick contacts, or symptoms of COVID19. Patient instructed that they and their household members must follow strict social distancing guidelines, wear a mask in public and avoid travel/events/gatherings for 14 days prior to surgery. Preoperative COVID19 testing to be completed prior to surgery per surgeon's arrangements. Patient made aware to self-isolate as much as possible between COVID testing and surgery. [facility] AM DOS Chart Review Chart Review: Acceptable Risk for Surgery (pending pcp clearance 09/17) and Patient seen in Pre Admission Testing Teaching & Discussion Instructed NPO after midnight before surgery, except medications with 15 cc of water. Medication instructions provided according to the PAT guidelines. History Surgery Operation Date: 10/01/20 08:35 Proposed Procedures p Right Total Knee Arthroplasty - Good Sinclair DO Height/Weight Height: 5 ft 10 in Weight: 119.9 kg Allergies Allergy/AdvReac Type Severity Reaction Status Date / Time empagliflozin Allergy Unknown URINARY Verified 08/22/20 14:07 [From Jardiance] TRACT INFECTION nickel Allergy Unknown RASH Verified 08/22/20 14:07 tetanus toxoid, adsorbed Allergy Unknown ITCHING Verified 08/22/20 14:07 lisinopril AdvReac Unknown Cough Verified 08/22/20 14:07 Medications Home Medications Medication Instructions Recorded Confirmed Last Taken ascorbic acid (vitamin C) [Vitamin 500 mg PO DAILY 08/11/18 08/22/20 08/20/18 C] aspirin [Aspir-Low] 81 mg PO DAILY 08/11/18 08/22/20 08/20/18 dutasteride 0.5 mg PO QAM 08/11/18 08/22/20 08/20/18 ferrous sulfate [iron] 325 mg PO DAILY 08/11/18 08/22/20 08/20/18 losartan 25 mg PO QAM 08/11/18 08/22/20 08/20/18 metformin 1,000 mg PO BID 08/11/18 08/22/20 08/20/18 multivitamin 1 tab PO DAILY 08/11/18 08/22/20 08/20/18 rosuvastatin 40 mg PO HS 08/11/18 08/22/20 08/20/18 glimepiride 2 mg PO QAM 08/22/20 08/22/20 Unknown Past Medical History Medical History Anemia RECENT BPH (benign prostatic hyperplasia) Diabetes mellitus, type 2 GERD (gastroesophageal reflux disease) Not an issue recently Glaucoma RESOLVED S/P SURGICAL INTERVENTION History of colon polyps BENIGN Hyperlipidemia Osteoarthritis Scoliosis Sleep apnea CPAP, COMPLIANT. Exercise / Class Metabolic Activity II 4-5 Yardwork/Stairs/Walk up hill (DOES FOS DAILY AT HOME/WORK, NO CP, 'NOT USUALLY' SOB) Past Family History Family History Grandmother (Maternal) Family history of diabetes mellitus Mother Family history of esophageal cancer Sister Family history of diabetes mellitus Past Surgical History Surgical History History of adenoidectomy History of cardiac cath ABNORMAL STRESS TEST IN 2017 - NO STENTS. 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) History of repair of rotator cuff RT/LEFT History of tonsillectomy History of tooth extraction Past Anesthesia History No Hx of Anesthesia Complications and No Family Hx of Anesthesia Complications History of PONV No Hx of PONV and No Hx of Motion Sickness Social History Smoking Status: Former smoker tobacco type: cigarettes Do You Dip or Chew Tobacco: No Smoking End Date: 8 YR AGO Hx Alcohol Use: Yes Alcohol type: beer alcohol intake frequency: holidays/special occasions only Hx Substance Use: No substance use type: does not use Review of Systems Pt denies any recent chest pain, shortness of breath, palpitations, cough, fever, URI, or uncontrolled acid reflux. Physical Exam Vital Signs BP: 141/79 P: 87bpm SPO2: 94% RA T: 98.3 F R: 16 Constitutional + obese ENMT Mouth: no dental restorations, no chipped teeth and no loose teeth Thyromental Distance: > or= 3.5 Finger Breadths Mallampati Class: III Neck + short neck, + thick neck and + facial hair (short goatee); neck extension not limited Respiratory normal respiratory effort, lungs clear to auscultation Cardiovascular Rate/Rhythm: regular rate and regular rhythm Heart Sounds: + murmur (I/ systolic) Vessels: no carotid bruit Testing Laboratory Results PT 10.6 Seconds (9.0-12.0) 08/29/20 10:33 INR 1.0 (0.9-1.1) 08/29/20 10:33 APTT 23.1 Seconds (21.0-31.0) 08/29/20 10:33 Urine Color Yellow 08/29/20 10:33 Urine Appearance Clear (Clear) 08/29/20 10:33 Urine pH 5.0 (4.5-7.5) 08/29/20 10:33 Ur Specific Leon 1.025 (1.000-1.030) 08/29/20 10:33 Urine Protein 2+ (Negative) H 08/29/20 10:33 Urine Glucose (UA) 3+ (Negative) H 08/29/20 10:33 Urine Ketones Negative (Negative) 08/29/20 10:33 Urine Nitrite Negative (Negative) 08/29/20 10:33 Ur Leukocyte Esterase Negative (Negative) 08/29/20 10:33 Urine WBC (Auto) 1-5 /hpf (0-5) 08/29/20 10:33 Urine RBC (Auto) 0-4 /hpf (0-4) 08/29/20 10:33 U Hyaline Cast (Auto) 1-5 /lpf (0-5) 08/29/20 10:33 U Epithel Cells (Auto) 20-30 /lpf (0-5) H 08/29/20 10:33 Urine Bacteria (Auto) Negative (Negative) 08/29/20 10:33 Blood Type AB Positive 08/29/20 10:33 Antibody Screen NEGATIVE 08/29/20 10:33 08/13/20 WBC: 8.25 H/H: 12.8/38.7 PLATELETS: 192 SODIUM: 136 POTASSIUM: 4.3 CHLORIDE: 102 CO2: 21 BUN: 14 CREATININE: 0.80 GLUCOSE: 219 A1C: 7.1% Electrocardiogram Date: 08/29/20 Findings: + NSR @ (86bpm) Inferior infarct, age undetermined. Compared to EKG from 2013, inferior infarct is now present. *Review of 08/10/2018 EKG from [facility] system reports "compared with EKG of 08/16/2016, minimal criteria for inferior infarct are no longer present." Pt had heart cath in 2017 showing diffuse minor irregularities. Chest X-Ray Date: 08/29/20 FINDINGS: Lung volumes are normal. Lungs are clear. There is no pneumothorax or pleural effusion. There is mild cardiomegaly. Mediastinal contours are normal. There is no evidence for pulmonary edema. Postoperative findings within the right shoulder are incidentally noted. IMPRESSION: No acute cardiopulmonary findings. Echocardiogram Date: 06/22/16 EF: 55-59% Mild concentric LVH. Grade I diastolic dysfunction. Mild aortic stenosis -- HAL 1.6-1.7 cm2, MG 15.4 mmHg. Mild TR. The aortic root and proximal ascending aorta are mildly enlarged. Stress Test Date: 06/22/16 Resting EF: 68% Abnormal Lexiscan nuclear stress test suggesting mid to apical inferior, and apical lateral ischemia. Gated SPECT images reveal significant myocardial thickening and wall motion. Cardiac Catheterization Date: 08/16/16 The coronary arteries have diffuse minor irregularities. Recommend risk factor and lifestyle modification. Continued medical management.
--- NOTE | 2020-08-29 11:00 | XRay Report ---
XR chest Pre-admission PA/Lat CLINICAL HISTORY: Preoperative evaluation. COMPARISON STUDY: Chest radiograph November 05, 2012. FINDINGS: Lung volumes are normal. Lungs are clear. There is no pneumothorax or pleural effusion. The re is mild cardiomegaly. Mediastinal contours are normal. There is no evidence for pulmonary edema. P ostoperative findings within the right shoulder are incidentally noted. IMPRESSION: No acute cardiopulmonary findings. ACT 112: Negative or not required by law. Electronically signed by: Issa Pereira M.D. 08/29/2020 10:59 AM
[2020-08-29 11:04] LABS: Appearance Urine Clear (Clear); Bacteria Urine Automated Negative (Negative); Bilirubin Urine Negative (Negative); Blood Urine Negative (Negative); Color Urine Yellow; Epithelial Cell Urine Auto 20-30 /lpf (0-5); Glucose Urine UA 3+ (Negative); Ketones Urine Negative (Negative); Leukocyte Esterase Urine Negative (Negative); Nitrite Urine Negative (Negative); Protein Urine 2+ (Negative); RBC Urine Automated 0-4 /hpf (0-4); Specific Gravity Urine 1.025 (1.000-1.030); Urobilinogen Urine Negative (Negative)
[2020-08-29 11:06] LABS: Partial Thromboplastin Ratio 0.9; Partial Thromboplastin Time 23.1 Seconds (21.0-31.0); Prothrombin Time 10.6 Seconds (9.0-12.0)
--- NOTE | 2020-08-30 00:02 | Electrocardiogram Report ---
Test Reason : Blood Pressure : / mmHG Vent. Rate : 086 BPM Atrial Rate : 086 BPM P-R Int : 184 ms QRS Dur : 096 ms QT Int : 364 ms P-R-T Axes : 066 -02 030 degrees QTc Int : 435 ms Normal sinus rhythm Inferior infarct , age undetermined Abnormal ECG When compared with ECG of 20-JUL-2013 08:05, Inferior infarct is now Present Confirmed by Randall Schneider ([id number]) on 08/30/2020 12:02:27 AM Referred By: Good Sinclair Confirmed By:Randall Schneider
--- NOTE | 2020-09-18 12:47 | History & Physical Report ---
Date of Service September 18, 2020 date of surgery: 10/01/20 Procedure: Right Total Knee Arthroplasty Assessment & Plan (1) Arthritis of right knee: Further care discussed with patient and at this point in time has failed conservative measures and would like to proceed with a right total knee rep lacement. Plan on discharge will be home with home health physical therapy. DVT prophalaxis with TEDs, SCDs and will also place on aspirin 81 mg p.o. b.i.d. for a month postop. Patient will have follow up appointment in our office two weeks post op for staple/suture removal and re-evaluation. Patient otherwise has no other questions or concerns. The risks and benefits have been discussed including, but not limited to, risk of infection, nerve injury, stiffness, loss of motion, failure to improve, etc. Reasonable outcomes and options of treatment were discussed. An explanation of appropriate alternatives to the procedure that may be advantageous were discussed and their risks and benefits, as well as the risks and benefits of not proceeding with treatment. I offered to answer any additional inquiries concerning the treatment involved. All the patient's questions were answered. The patient is agreeable, understanding of the treatment plan and alternatives, and wishes to proceed with the treatment plan. History of Present Illness Chief Complaint: Right knee pain Primary Care Provider: Raza Miguelterence Hall is a pleasant 65 year old male who complains of right knee pain, presents for pre-op evaluation prior to a Right total knee replacement by Dr Sinclair at [facility]. he has complaints of pain, decreased range of motion and stiffness in his right knee. Currently the patient states that the symptoms are moderate-severe and rated as 6/10. The pain is described as aching, sharp and throbbing. His symptoms are aggravated by ascending stairs, daily activities, first steps while awake walking. Prior NSAIDs include Aleve, IBU. he has continued right knee pain, has history of scope in December 2019 followed by Durolane injection in February 2020 without relief. x-rays taken today showing advanced DJD right knee with bone on bone changes. we discussed his options, he would like to proceed with right TKA at [facility]. Allergies Allergy/AdvReac Type Severity Reaction Status Date / Time empagliflozin Allergy Unknown URINARY Verified 08/22/20 14:07 [From Jardiance] TRACT INFECTION nickel Allergy Unknown RASH Verified 08/22/20 14:07 tetanus toxoid, adsorbed Allergy Unknown ITCHING Verified 08/22/20 14:07 lisinopril AdvReac Unknown Cough Verified 08/22/20 14:07 Home Medications Medication Instructions Recorded Confirmed Type ascorbic acid (vitamin C) [Vitamin 500 mg PO DAILY 08/11/18 08/22/20 History C] aspirin [Aspir-Low] 81 mg PO DAILY 08/11/18 08/22/20 History dutasteride 0.5 mg PO QAM 08/11/18 08/22/20 History ferrous sulfate [iron] 325 mg PO DAILY 08/11/18 08/22/20 History losartan 25 mg PO QAM 08/11/18 08/22/20 History metformin 1,000 mg PO BID 08/11/18 08/22/20 History multivitamin 1 tab PO DAILY 08/11/18 08/22/20 History rosuvastatin 40 mg PO HS 08/11/18 08/22/20 History glimepiride 2 mg PO QAM 08/22/20 08/22/20 History Past Med/Surg History Medical History Anemia RECENT BPH (benign prostatic hyperplasia) Diabetes mellitus, type 2 GERD (gastroesophageal reflux disease) Not an issue recently Glaucoma RESOLVED S/P SURGICAL INTERVENTION History of colon polyps BENIGN Hyperlipidemia Osteoarthritis Scoliosis Sleep apnea CPAP, COMPLIANT. Surgical History History of adenoidectomy History of cardiac cath ABNORMAL STRESS TEST IN 2017 - NO STENTS. 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) History of repair of rotator cuff RT/LEFT History of tonsillectomy History of tooth extraction Family History Grandmother (Maternal) Family history of diabetes mellitus Mother Family history of esophageal cancer Sister Family history of diabetes mellitus Social History Smoking Status: Former smoker Second Hand Exposure: No; Hx Alcohol Use: Yes Alcohol type: beer Hx Substance Use: No Preferred Language: Wolof Communication Ability: Effective Java Technical 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: No Beliefs That Will Affect Care: Rastafarian Rastafarian Beliefs: RESTORATIONISM Current Living Situation: Spouse Feels Safe at Home: Yes Assistive Devices: CPAP Review of Systems Review of Systems: All systems reviewed & are unremarkable except as noted in HPI & below Constitutional: no fever, no chills and no sweats Respiratory: no cough and no dyspnea Cardiovascular: no chest pain, no dyspnea and no orthopnea Gastrointestinal: no abdominal pain, no nausea and no vomiting Musculoskeletal: as per Subjective / HPI Physical Exam Physical Exam: HT: 5ft 10in WT: 119.9kg Constitutional: WD/WN, vitals as above no acute distress Respiratory: normal respiratory effort, lungs clear to auscultation no respiratory distress, no labored breathing and does not use accessory muscles Cardiovascular: RRR, no murmur, no edema Gastrointestinal (Abdomen): normal bowel sounds, soft, nontender, no hepatosplenomegaly Musculoskeletal: Knee: + knee abnormal to inspection (Right Knee: ), + ef fusion (+1 effusion), + surgical incision (well healed portals), + limited ROM of knee (ROM 0/3/110), + knee ROM with crepitation, + joint line tenderness (medial joint line) and + Timoteo's sign positive; no deformity, no skin erythema, no ecchymosis, no valgus laxity, no varus laxity, anterior drawer test negative, Kamari's sign negative and pivot shift test negative Results & Data Results & Data ([facility]) Laboratory Results Laboratory Results PT 10.6 Seconds (9.0-12.0) 08/29/20 10:33 INR 1.0 (0.9-1.1) 08/29/20 10:33 APTT 23.1 Seconds (21.0-31.0) 08/29/20 10:33 PTT Ratio 0.9 08/29/20 10:33 Urine Color Yellow 08/29/20 10:33 Urine Appearance Clear (Clear) 08/29/20 10:33 Urine pH 5.0 (4.5-7.5) 08/29/20 10:33 Ur Specific [place] 1.025 (1.000-1.030) 08/29/20 10:33 Urine Protein 2+ (Negative) H 08/29/20 10:33 Urine Glucose (UA) 3+ (Negative) H 08/29/20 10:33 Urine Ketones Negative (Negative) 08/29/20 10:33 Urine Blood Negative (Negative) 08/29/20 10:33 Urine Nitrite Negative (Negative) 08/29/20 10:33 Urine Bilirubin Negative (Negative) 08/29/20 10:33 Urine Urobilinogen Negative (Negative) 08/29/20 10:33 Ur Leukocyte Esterase Negative (Negative) 08/29/20 10:33 Urine WBC (Auto) 1-5 /hpf (0-5) 08/29/20 10:33 Urine RBC (Auto) 0-4 /hpf (0-4) 08/29/20 10:33 U Hyaline Cast (Auto) 1-5 /lpf (0-5) 08/29/20 10:33 U Epithel Cells (Auto) 20-30 /lpf (0-5) H 08/29/20 10:33 Urine Bacteria (Auto) Negative (Negative) 08/29/20 10:33 Blood Type AB Positive 08/29/20 10:33 Antibody Screen NEGATIVE 08/29/20 10:33 Impressions Chest X-Ray 08/29/20 07:39 XR chest Pre-admission PA/Lat CLINICAL HISTORY: Preoperative evaluation. COMPARISON STUDY: Chest radiograph November 05, 2012. FINDINGS: Lung volumes are normal. Lungs are clear. There is no pneumothorax or pleural effusion. There is mild cardiomegaly. Mediastinal contours are normal. There is no evidence for pulmonary edema. Postoperative findings within the right shoulder are incidentally noted. IMPRESSION: No acute cardiopulmonary findings. ACT 112: Negative or not required by law. Electronically signed by: Issa Pereira M.D. 08/29/2020 10:59 AM Diagnostic Findings Right Knee X-ray showing advanced degenerative changes to the right knee, narrowing of the medial compartment and patello-femoral joint with patellar spurring noted, findings showing joint space narrowing of the medial compartment and patello-femoral joint, osteophyte formation and subchondral sclerosis noted. overall varus alignment. no acute bony pathology noted.
[2020-10-01] MEDS ORDERED: oxyCODONE HCL 10 MG TABCR (OxyCONTIN) PO SCH (06:00)
[2020-10-01] MEDS ORDERED: ceFAZolin 2000MG 2,000 MG/15 ML SYR IV SCH (06:00)
[2020-10-01] MEDS ORDERED: LR 500ML BOLUS IV SCH (06:00)
[2020-10-01] MEDS ORDERED: LR 15ML/HR IV SCH (06:00)
[2020-10-01] MEDS ORDERED: GABAPENTIN 300 MG CAP PO SCH (06:00)
[2020-10-01] MEDS ORDERED: TRANEXAMIC ACID 1,000 MG **IV Pre-op IV SCH (06:00)
[2020-10-01] MEDS ORDERED: METOCLOPRAMIDE HCL 10 MG TABLET PO SCH (06:00)
[2020-10-01] MEDS ORDERED: CeleBREX 200 MG CAP PO SCH (06:00)
[2020-10-01] MEDS ORDERED: ACETAMINOPHEN 500 MG TAB PO SCH (06:00)
[2020-10-01] MEDS ORDERED: FAMOTIDINE 20 MG TAB PO SCH (06:00)
[2020-10-01] MEDS ORDERED: ROPIVACAINE 0.5% HCL/PF 150 MG, BUPIVACAINE 0.75% MPF 20 ML, EPINEPHrine 30MG/30ML (OR ... INSTIL SCH (06:00)
[2020-10-01] MEDS ORDERED: dexAMETHasone 4 MG TAB PO SCH (06:00)
[2020-10-01] MEDS ORDERED: TRANEXAMIC ACID 1,000 MG **IV Intra-op IV SCH (06:00)
[2020-10-01] MEDS ORDERED: BUPIVACAINE 0.5 % 5 MG/1 ML PF 10ML VIAL ONE (06:17)
[2020-10-01] MEDS ORDERED: MIDAZOLAM HCL 1 MG/ML 2ML VIAL ONE ×2 (06:44)
[2020-10-01] MEDS ORDERED: fentaNYL citrate 100 MCG/2 ML VIAL ONE ×2 (06:44→08:50)
--- NOTE | 2020-10-01 07:01 | History & Physical Bridge Note ---
Date of Service October 01, 2020 History & Physical Bridge Note I have examined the patient, reviewed the History & Physical and in the interval since the performance of the History & Physical I have noted the following changes of clinical significance: no changes noted
[2020-10-01] MEDS ORDERED: ATROPINE SULFATE 0.1 MG/ML 10ML SYR IV PRN (07:14)
[2020-10-01] MEDS ORDERED: ePHEDrine sulfate 50 MG/ML AMP IV PRN (07:14)
[2020-10-01] MEDS ORDERED: fentaNYL citrate 100 MCG/2 ML VIAL IV PRN (07:14)
[2020-10-01] MEDS ORDERED: ONDANSETRON INJ 2 MG/ML 2 ML VIAL IV PRN ×2 (07:14→11:34)
[2020-10-01] MEDS ORDERED: PROPOFOL IV EMULSION 10 MG/ML 20 ML VIAL IV ONE (08:29)
[2020-10-01] MEDS ORDERED: ROPIVACAINE 0.5% 5 MG/ML 30 ML VIAL ONE (08:48)
[2020-10-01] MEDS ORDERED: ACETAMINOPHEN 1000 MG/100 ML IV IV ONE (09:16)
[2020-10-01] MEDS ORDERED: KETOROLAC 30 MG/ML VIAL ONE ×2 (09:16→09:17)
--- NOTE | 2020-10-01 09:43 | Operative Report ---
Post Operative Report Pre & Post Diagnosis Operation Date: 10/01/20 08:10 Pre-Op Diagnosis: Osteoarthritis, Right Knee Post-Op Diagnosis: Osteoarthritis, Right Knee I identified the patient and participated in the time-out.: Yes Procedure Operation Date: 10/01/20 08:10 Actual Procedures p Right Total Knee Arthroplasty(Right) utilizing [employer] titanium persona posterior stabilized total knee arthroplasty size 9 standard femur F tibia 11 posterior stabilized polythirty 4 oval patella- Good Sinclair DO Surgeon Good Sinclair DO Senior Ecologist Armaan EARLY Estimated Blood Loss 5 Findings Consistent with Post-Op Diagnosis Patient presents with severe end-stage tricompartmental degenerative joint disease right knee no response to conservative management the above intraoperative findings noted patient had eburnated [id number] subchondral sclerosis marginal osteophytes large effusion Specimens Bone and cartilage Drains Medium bore Hemovac Anesthesia Type MAC Spinal Regional Complications none Disposition Accompanied Patient To Recovery: No Disposition: Recovery Room Indications Patient presents with severe end-stage DJD failed attempted conservative management physical therapy anti-inflammatories relative rest activity modification corticosteroid injections viscosupplementation above intraoperative findings noted. Description of Procedure After proper prepping and draping of the Right lower extremity anterior midline incision was made over the region of the extensor extensor mechanism after meticulous hemostasis was obtained and maintained in subcutaneous tissues a medial parapatellar incision was made The patella was subluxed lateralward the medial lateral gutter were cleaned from any hypertrophic synovitis and scar tissue of the distal femoral block was placed and the distal femoral osteotomy cut was made subsequently the chamfers anterior and posterior osteotomy cuts were made utilizing the 4-in-1 block the tibia was subsequently subluxed anteriorward medial and ateral meniscal remnants were excised in their entirety remnants of the anterior and posterior cruciate ligaments were excised in their entirety excellent exposure of the proximal tibia was obtained the tibial osteotomy guide was placed on the proximal tibial osteotomy cut was made once again the knee was irrigated with copious amounts of sterile saline solution the patella was subsequently everted lateralward thickened scar tissue around the patella was removed the patella was subsequently cut utilizing a freehand technique and was drilled prepared for final preparation and placement of patella socially flexion-extension gaps were checked and the equal and symmetric trials were placed to the appropriate femoral and tibial trials with poly-spacer being placed for equal flexion and extension gaps and full range of motion including extension to 0 and flexion to 140 the trial components after having been taken to recovery range of motion was subsequently removed meticulous hemostasis was obtained and maintained subsequently a knee block injection of joint cocktail including ropivacaine 0.5% 150 mg. Bupivacaine 0.5% epinephrine 1-200,030 mL's toradol 30 mg dexamethasone 4 mg ketamine 10 mg clonidine 100 micrograms normal saline solution 30 mg was infiltrated into the soft tissues of the posterior knee medial lateral gutters and periosteal synovium special attention was paid to protect neurovascular structures at all times subsequently trial components having been removed the knee was irrigated with sterile saline solution. debris was removed the proximal tibia was subsequently prepared and was made ready for the placement of the tibial component tibial component was also cemented and tamped into position the femoral component was subsequently placed and cemented in the position the patellar component was subsequently cemented in position because hemostasis once again obtained and maintained wound having been thoroughly irrigated with debridement and debridement lavage was performed as well as a medial parapatellar incision closed with #1 Vicryl in interrupted fashion subcutaneous was closed with #2 Vicryl skin was closed with skin clips. PA-C was necessary for prepping and drapping as well as wound closure of deep fascia Sub cutaneous tissue and skin and was necessary for the case. A sterile compressive dressing was placed patient was taken to recovery in stable condition of report dictated by Yahir I attest to the content of the Intraoperative Record and any orders documented therein. Any exceptions are noted below. I attest to the content of the Intraoperative Record and any orders documented therein. Any exceptions are noted below.
[2020-10-01] MEDS ORDERED: NovoLIN-R INSULIN PER UNIT CHARGE ONE (10:39)
[2020-10-01] MEDS ORDERED: NovoLIN-R INSULIN PER UNIT CHARGE IV STA (10:42)
--- NOTE | 2020-10-01 11:01 | Anesthesiology Progress Note ---
Date of Service October 01, 2020 Anesthesia Post Procedure Vital Signs Vital Signs: Temp Pulse Pulse Resp BP BP Pulse Ox 10/01/20 10:50 86 18 129/76 96 10/01/20 10:40 90 18 129/71 97 10/01/20 10:30 96 H 16 120/83 97 10/01/20 10:29 97.5 F L 96 H 18 124/76 96 10/01/20 06:24 98.8 F 84 18 150/84 H 95 Pain Intensity Right Knee: Pain Intensity: 5 Transfer of Care Handoff Completed per policy Notes Mental Status: alert / awake / arousable and participated in evaluation Patient Amnestic to Procedure: Yes Nausea / Vomiting: adequately controlled Pain: adequately controlled Airway Patency, RR, SpO2: stable & adequate BP & HR: stable & adequate Hydration State: stable & adequate Anesthetic Complications: no major complications apparent and Pt Satisfied with anesthetic care
[2020-10-01] MEDS ORDERED: bisacodyL 10 MG SUPP PR PRN (11:34)
[2020-10-01] MEDS ORDERED: NALOXONE HCL 0.4 MG/1 ML VIAL/CARP IV PRN (11:34)
[2020-10-01] MEDS ORDERED: MAGNESIUM HYDROXIDE SUSP 30 ML UDC PO PRN (11:34)
[2020-10-01] MEDS ORDERED: PHARMACY GLYCEMIC MGMT CONSULT PRN (11:46)
--- NOTE | 2020-10-01 11:54 | XRay Report ---
TWO VIEWS RIGHT KNEE CLINICAL HISTORY: Postoperative examination. FINDINGS: AP and crosstable lateral portable views of the right knee are obtained. A right knee arthr oplasty is in near anatomic alignment. There has been undersurface remodeling of the patella. No acut e fracture is seen. There are expected postoperative changes around the knee including a surgical óscar in, soft tissue edema, and subcutaneous gas. There is atherosclerotic calcification of the popliteal artery. IMPRESSION: Expected postoperative changes status post right knee arthroplasty. No acute fracture is seen. ACT 112: Negative or not required by law. Electronically signed by: Raghu Rivera M.D. 10/01/2020 11:53 AM
[2020-10-01] MEDS: SODIUM CHLORIDE 0.9% 1000ML 1,000 ML IV SCH ×2 (12:03→23:51)
[2020-10-01] MEDS ORDERED: CARBOHYDRATES FOR HYPOGLYCEMIA PO PRN (12:15)
[2020-10-01] MEDS ORDERED: GLUCOSE 40% GEL 15 GM TUBE PO PRN (12:15)
[2020-10-01] MEDS ORDERED: GLUCOSE 10 TABS/TUBE PO PRN (12:15)
[2020-10-01] MEDS ORDERED: GLUCAGON FOR INJ 1 MG VIAL IM PRN (12:15)
[2020-10-01] MEDS ORDERED: NovoLIN-N (NPH) PER UNIT CHARGE SQ STA (12:15)
[2020-10-01] MEDS ORDERED: DEXTROSE 50% 50 ML SYRINGE IV PRN (12:15)
[2020-10-01] MEDS: INSULIN ASPART 100 UNITS/ML 3 ML PEN SC SCH ×3 (12:59→20:46)
--- NOTE | 2020-10-01 13:14 | Pharmacy Report ---
Pharmacy Glycemic Short Note 2 - Date of Service October 01, 2020 - Glycemic Short BSG Results (Last 24 hours): 10/01/20 10/01/20 10/01/20 05:57 10:34 11:09 POC Glucose 246 H 308 H* 304 H* 10/01/20 11:44 POC Glucose 281 H OUTPATIENT ANTIDIABETIC REGIMEN: * Metformin 1000 mg PO BIDM * Glimepiride 2 mg PO qAM * HbA1c = 7.1% (08/13/20) ASSESSMENT: * 65 yo M admitted s/p right total knee arthroplasty. Pharmacy has been consulted to assist with inpatient glycemic management. Patient did received 8 mg of PO dexamethasone prior to surgery. No further steroids are ordered to my knowledge. * Preoperative BSG was 246 mg/dL. Postoperative BSG was 308 mg/dL. Patient was given 5 units IV insulin. BSG was then 304 mg/dL so he received another 5 units of IV insulin. * Gave a one time dose of 45 units (0.375 units/kg) NPH to cover for steroid induced hyperglycemia. Novolog will be started based on actual body weight and stress of 3. * May require a Lantus dose this evening if hyperglycemia persists. Will hand- off consult to 2nd shift pharmacist. PLAN FOR INPATIENT GLYCEMIC CONTROL: * Hold outpatient oral diabetes medications * Basal insulin * NPH 45 units SC x 1 * Bolus insulin * NovoLog per scale ACHS or Q6hrs while NPO * Goal Range: Low 110 mg/dL - High 140 mg/dL * Correction Factor: 15 mg/dL/unit * Nutritional / Prandial insulin per carb ratio of 1 unit per 4 grams CHO consumed PLAN FOR DISCHARGE: * HbA1c was 7.1% from 08/13/20. This is almost at goal (< 7%) based on this patient's age and comorbidities. * Recommend increasing Glimepiride to 4 mg PO qAM upon discharge.
[2020-10-01] MEDS: ACETAMINOPHEN 500 MG TAB PO SCH ×2 (14:22→20:49)
[2020-10-01] MEDS: ceFAZolin 2000MG 2,000 MG/15 ML SYR IV SCH ×2 (16:32→23:44)
[2020-10-01] MEDS: DOCUSATE SODIUM 100 MG CAP PO SCH (20:47)
[2020-10-01] MEDS: SENNA 8.6 MG TAB PO SCH (20:47)
[2020-10-01] MEDS: ASPIRIN 81 MG ECTAB PO SCH (20:48)
[2020-10-01] MEDS: ROSUVASTATIN CALCIUM 20 MG TAB PO SCH (20:48)
[2020-10-01] MEDS ORDERED: LANTUS PER UNIT CHARGE SQ SCH (21:30)
[2020-10-02] MEDS: HYDROmorphone INJ 0.5 MG/0.5 ML SYR IV PRN ×3 (04:08→17:59)
[2020-10-02] MEDS: ACETAMINOPHEN 500 MG TAB PO SCH ×3 (05:54→20:29)
[2020-10-02] MEDS: oxyCODONE HCL IR 5 MG TAB (IMMEDIATE RELEASE) PO PRN ×4 (05:54→20:29)
[2020-10-02 06:35] LABS: Hemoglobin 11.8 g/dL (14.0-18.0); Mean Corpuscular Hemoglobin 31.7 pg (25-34); Mean Corpuscular Hgb Conc 32.8 g/dL (32-36); Mean Corpuscular Volume 96.8 fL (80-100); Mean Platelet Volume 10.5 fL (7.4-10.4); Platelet Count 206 K/uL (130-400); RDW Coefficient of Variation 14.9 % (11.5-14.5); RDW Standard Deviation 53.2 fL (36.4-46.3); Red Blood Count 3.72 M/uL (4.7-6.1); White Blood Count 13.52 K/uL (4.8-10.8)
[2020-10-02 07:16] LABS: BUN Creatinine Ratio 23.1 (10-20); Creatinine Clr Calc Pharmacy 113.5 ml/min; Est GFR (African American) 106.1 ml/min; Est GFR (Non-African American) 91.5 ml/min; Potassium 3.7 mmol/L (3.5-5.1)
--- NOTE | 2020-10-02 08:34 | Anesthesiology Progress Note ---
Date of Service October 02, 2020 Anesthesia Post Procedure Vital Signs Vital Signs: Temp Pulse Pulse Resp BP BP Pulse Ox 10/02/20 07:55 36.8 C 76 18 124/74 93 10/02/20 04:00 36.6 C 81 18 128/69 95 10/01/20 23:43 36.7 C 79 20 117/67 94 10/01/20 19:40 37.1 C 87 20 120/63 95 10/01/20 14:23 91 H 16 150/80 H 94 10/01/20 13:25 37.0 C 88 18 131/68 96 10/01/20 12:30 90 18 144/81 H 95 10/01/20 12:01 88 18 147/70 H 93 10/01/20 11:30 36.7 C 85 18 132/77 94 10/01/20 11:20 86 18 121/73 94 10/01/20 11:10 88 18 119/76 94 10/01/20 11:00 36.7 C 90 14 115/56 L 93 10/01/20 10:50 86 18 129/76 96 10/01/20 10:40 90 18 129/71 97 10/01/20 10:30 96 H 16 120/83 97 10/01/20 10:29 36.4 C L 96 H 18 124/76 96 Pain Intensity Right Knee: Pain Intensity: 2 Notes Mental Status: alert / awake / arousable and participated in evaluation Patient Amnestic to Procedure: Yes Nausea / Vomiting: adequately controlled Pain: adequately controlled Airway Patency, RR, SpO2: stable & adequate BP & HR: stable & adequate Hydration State: stable & adequate Anesthetic Complications: no major complications apparent
[2020-10-02] MEDS: INSULIN ASPART 100 UNITS/ML 3 ML PEN SC SCH ×4 (08:40→20:27)
[2020-10-02] MEDS ORDERED: GLIMEPIRIDE 2 MG TAB PO SCH (09:00)
[2020-10-02] MEDS ORDERED: metFORMIN HCL 500 MG TAB PO SCH (09:00)
[2020-10-02] MEDS: LOSARTAN POTASSIUM 25 MG TAB PO SCH (09:49)
[2020-10-02] MEDS: TAMSULOSIN HCL 0.4 MG CAP PO SCH (09:49)
[2020-10-02] MEDS: DOCUSATE SODIUM 100 MG CAP PO SCH ×2 (09:49→20:29)
[2020-10-02] MEDS: MULTIVITAMIN TAB PO SCH (09:49)
[2020-10-02] MEDS: ASPIRIN 81 MG ECTAB PO SCH ×2 (09:49→20:30)
--- NOTE | 2020-10-02 10:07 | Orthopedic Progress Note ---
Date of Service October 02, 2020 Assessment & Plan (1) Arthritis of right knee: Postop day 1 status post right total knee arthroplasty. PT/OT protocols. Weightbearing as tolerated. DVT prophylaxis-aspirin p.o. twice daily, SCDs, ELLA morales. Pain management as written. DC planning-patient is planning for home health services upon discharge. Admission and Anticipated Discharge Date Admission Date: October 01, 2020 Supervising Physician Co-Signing Physician Notes Patient seen and examined. Is having a lot of pain right now in his right knee after sitting up and eating dinner. He has had quite a bit of pain since surgery, but he has been able to ambulate at least to the hallway. I think this will significantly improve over the next few days, but he may need rehab stay. Subjective Postop day 1 Patient sitting up in bed awake and alert. States he was having a fair amount of pain this morning around 6 AM but was given an IV pain medication as well as p.o. pain medications. He states the pain control is a little bit better this morning. Denies shortness of breath, chest pain, lightheadedness. No other complaints at this time. Physical Exam Physical Exam: Dressings are clean, dry, and intact. Calves are soft nontender. Neurovascular is intact. Toes are mobile. He has good dorsiflexion and plantarflexion of the right foot. Hemovac drain 150 mL from the previous shift. Results & Data ([facility]) Vital Signs (Past 12 Hours) Vital Signs Temp Pulse Resp BP Pulse Ox 10/02/20 07:55 36.8 C 76 18 124/74 93 10/02/20 04:00 36.6 C 81 18 128/69 95 10/01/20 23:43 36.7 C 79 20 117/67 94 Laboratory Results Laboratory Results WBC 13.52 K/uL (4.8-10.8) H 10/02/20 05:32 RBC 3.72 M/uL (4.7-6.1) L 10/02/20 05:32 Hgb 11.8 g/dL (14.0-18.0) L 10/02/20 05:32 Hct 36.0 % (42-52) L 10/02/20 05:32 MCV 96.8 fL (80-100) 10/02/20 05:32 MCH 31.7 pg (25-34) 10/02/20 05:32 MCHC 32.8 g/dL (32-36) 10/02/20 05:32 RDW Std Deviation 53.2 fL (36.4-46.3) H 10/02/20 05:32 RDW Coeff of Freddie 14.9 % (11.5-14.5) H 10/02/20 05:32 Plt Count 206 K/uL (130-400) 10/02/20 05:32 MPV 10.5 fL (7.4-10.4) H 10/02/20 05:32 PT 10.6 Seconds (9.0-12.0) 08/29/20 10:33 INR 1.0 (0.9-1.1) 08/29/20 10:33 APTT 23.1 Seconds (21.0-31.0) 08/29/20 10:33 PTT Ratio 0.9 08/29/20 10:33 Sodium 139 mmol/L (136-145) 10/02/20 05:32 Potassium 3.7 mmol/L (3.5-5.1) 10/02/20 05:32 Chloride 108 mmol/L (98-107) H 10/02/20 05:32 Carbon Dioxide 23 mmol/L (21-32) 10/02/20 05:32 Anion Gap 9.0 (3-11) 10/02/20 05:32 BUN 19 mg/dl (7-18) H 10/02/20 05:32 Creatinine 0.82 mg/dl (0.6-1.4) 10/02/20 05:32 Est Cr Clr Drug Dosing 113.5 ml/min 10/02/20 05:32 Est GFR ( Amer) 106.1 ml/min 10/02/20 05:32 Est GFR (Non-Af Amer) 91.5 ml/min 10/02/20 05:32 BUN/Creatinine Ratio 23.1 (10-20) H 10/02/20 05:32 Glucose 145 mg/dl (70-99) H 10/02/20 05:32 POC Glucose 176 mg/dl (70-99) H 10/02/20 08:14 Calcium 9.0 mg/dl (8.5-10.1) 10/02/20 05:32 Urine Color Yellow 08/29/20 10:33 Urine Appearance Clear (Clear) 08/29/20 10:33 Urine pH 5.0 (4.5-7.5) 08/29/20 10:33 Ur Specific Roy 1.025 (1.000-1.030) 08/29/20 10:33 Urine Protein 2+ (Negative) H 08/29/20 10:33 Urine Glucose (UA) 3+ (Negative) H 08/29/20 10:33 Urine Ketones Negative (Negative) 08/29/20 10:33 Urine Blood Negative (Negative) 08/29/20 10:33 Urine Nitrite Negative (Negative) 08/29/20 10:33 Urine Bilirubin Negative (Negative) 08/29/20 10:33 Urine Urobilinogen Negative (Negative) 08/29/20 10:33 Ur Leukocyte Esterase Negative (Negative) 08/29/20 10:33 Urine WBC (Auto) 1-5 /hpf (0-5) 08/29/20 10:33 Urine RBC (Auto) 0-4 /hpf (0-4) 08/29/20 10:33 U Hyaline Cast (Auto) 1-5 /lpf (0-5) 08/29/20 10:33 U Epithel Cells (Auto) 20-30 /lpf (0-5) H 08/29/20 10:33 Urine Bacteria (Auto) Negative (Negative) 08/29/20 10:33 COVID-19 Eval Order Covid19 IDNow [facility] 10/01/20 06:24 SARS-CoV-2, RNA, NAAT NEGATIVE (NEGATIVE) 10/01/20 06:24 Blood Type AB Positive 08/29/20 10:33 Antibody Screen NEGATIVE 08/29/20 10:33 Knee X-Ray 10/01/20 10:29 TWO VIEWS RIGHT KNEE CLINICAL HISTORY: Postoperative examination. FINDINGS: AP and crosstable lateral portable views of the right knee are obta ined. A right knee arthroplasty is in near anatomic alignment. There has been undersurface remodeling of the patella. No acute fracture is seen. There are expected postoperative changes around the knee including a surgical drain, soft tissue edema, and subcutaneous gas. There is atherosclerotic calcification of the popliteal artery. IMPRESSION: Expected postoperative changes status post right knee arthroplasty. No acute fracture is seen. ACT 112: Negative or not required by law. Electronically signed by: Raghu Rivera M.D. 10/01/2020 11:53 AM
[2020-10-02] MEDS: ROSUVASTATIN CALCIUM 20 MG TAB PO SCH (20:30)
[2020-10-02] MEDS: SENNA 8.6 MG TAB PO SCH (20:30)
[2020-10-02] MEDS ORDERED: LANTUS PER UNIT CHARGE SQ SCH (21:00)
[2020-10-03] MEDS: HYDROmorphone INJ 0.5 MG/0.5 ML SYR IV PRN ×2 (01:25→08:50)
[2020-10-03] MEDS: ACETAMINOPHEN 500 MG TAB PO SCH ×3 (05:09→20:53)
[2020-10-03] MEDS: oxyCODONE HCL IR 5 MG TAB (IMMEDIATE RELEASE) PO PRN (05:09)
[2020-10-03] MEDS: INSULIN ASPART 100 UNITS/ML 3 ML PEN SC SCH ×4 (08:53→20:52)
[2020-10-03] MEDS: DOCUSATE SODIUM 100 MG CAP PO SCH (09:04)
[2020-10-03] MEDS: TAMSULOSIN HCL 0.4 MG CAP PO SCH (09:05)
[2020-10-03] MEDS: ASPIRIN 81 MG ECTAB PO SCH ×2 (09:05→20:53)
[2020-10-03] MEDS: LOSARTAN POTASSIUM 25 MG TAB PO SCH (09:05)
[2020-10-03] MEDS: DUTASTERIDE 0.5MG PO SCH (09:05)
[2020-10-03] MEDS: MULTIVITAMIN TAB PO SCH (09:05)
[2020-10-03] MEDS: INSULIN GLARGINE SOLOSTAR 100 UNITS/ML 3 ML PEN SC SCH ×2 (09:08→20:51)
--- NOTE | 2020-10-03 09:25 | Orthopedic Progress Note ---
Date of Service October 03, 2020 Assessment & Plan (1) Arthritis of right knee: Postop day 2 status post right total knee arthroplasty. PT/OT protocols. Weightbearing as tolerated. DVT prophylaxis-aspirin p.o. twice daily, SCDs, ELLA morales. Pain management as written. DC planning-[facility] if bed available. Admission and Anticipated Discharge Date Admission Date: October 01, 2020 Subjective Postop day 2 Patient currently sitting up in his chair at the bedside and has finished breakfast. He appears comfortable. He states he is having pain off and on in the operative knee. No other complaints at this time. Denies shortness of breath, chest pain, lightheadedness. Patient states he is planning on going to [facility] if approved. Physical Exam Physical Exam: Dressing has been removed and Hemovac has been discontinued. Mild drainage noted on the dressing where the drain used to be. Telfa noted over the incision. There is no erythema. Mild swelling. Calves are soft and nontender. Neurovascular is intact. Toes are mobile. Results & Data ([facility]) Vital Signs (Past 12 Hours) Vital Signs Temp Pulse Resp BP BP Pulse Ox 10/03/20 07:16 36.5 C 85 18 133/71 93 10/03/20 05:21 36.8 C 92 H 154/83 H 10/02/20 22:36 36.6 C 84 18 159/97 H 92
[2020-10-03] MEDS ORDERED: KETOROLAC 30 MG/ML VIAL IV ONE (09:39)
[2020-10-03] MEDS ORDERED: KETOROLAC TROMETHAMINE 15 MG/ML VIAL IV ONE (10:00)
--- NOTE | 2020-10-03 10:06 | Pharmacy Report ---
Pharmacy Glycemic Short Note 2 - Date of Service October 03, 2020 - Glycemic Short BSG Results (Last 24 hours): 10/02/20 10/02/20 10/02/20 12:02 17:25 20:25 POC Glucose 187 H 176 H 228 H 10/03/20 08:08 POC Glucose 239 H OUTPATIENT ANTIDIABETIC REGIMEN: * Metformin 1000 mg PO BIDM * Glimepiride 2 mg PO qAM * HbA1c = 7.1% (08/13/20) ASSESSMENT: 10/03 * BSGs a little elevated yesterday and fasting BSG elevated today at 239 mg/dL despite no steroid continuation. Will increase basal insulin and give a dose of Lantus this morning. NovoLog scale will also be tightened again (this was loosened yesterday in anticipation of preop dex effects wearing off). Patient is tolerating a diet. * ~1040am BSG resulted >300 mg/dL. This was likely due to only being ~1.5 hrs post prandial, with not enough time for novolog to take effect. True lunchtime BSG improved to 234 mg/dL. 10/01 * 65 yo M admitted s/p right total knee arthroplasty. Pharmacy has been consulted to assist with inpatient glycemic management. Patient did received 8 mg of PO dexamethasone prior to surgery. No further steroids are ordered to my knowledge. * Preoperative BSG was 246 mg/dL. Postoperative BSG was 308 mg/dL. Patient was given 5 units IV insulin. BSG was then 304 mg/dL so he received another 5 units of IV insulin. * Gave a one time dose of 45 units (0.375 units/kg) NPH to cover for steroid induced hyperglycemia. Novolog will be started based on actual body weight and stress of 3. * May require a Lantus dose this evening if hyperglycemia persists. Will hand- off consult to 2nd shift pharmacist. PLAN FOR INPATIENT GLYCEMIC CONTROL: * Hold outpatient oral diabetes medications * Basal insulin * Lantus 15 units BID (increase) * Bolus insulin * NovoLog per scale ACHS or Q6hrs while NPO * Goal Range: Low 110 mg/dL - High 140 mg/dL * Correction Factor: 15 mg/dL/unit * Nutritional / Prandial insulin per carb ratio of 1 unit per 5 grams CHO consumed PLAN FOR DISCHARGE (from previous note): * HbA1c was 7.1% from 08/13/20. This is almost at goal (< 7%) based on this patient's age and comorbidities. * Recommend increasing Glimepiride to 4 mg PO qAM upon discharge.
[2020-10-03 10:17] LABS: Hematocrit (blood only) 36.6 % (42-52); Hemoglobin 12.2 g/dL (14.0-18.0); Mean Corpuscular Hemoglobin 32.5 pg (25-34); Mean Corpuscular Hgb Conc 33.3 g/dL (32-36); Mean Corpuscular Volume 97.6 fL (80-100); Mean Platelet Volume 10.1 fL (7.4-10.4); Platelet Count 207 K/uL (130-400); RDW Coefficient of Variation 15.1 % (11.5-14.5); RDW Standard Deviation 54.1 fL (36.4-46.3); Red Blood Count 3.75 M/uL (4.7-6.1)
[2020-10-03 10:40] LABS: BUN Creatinine Ratio 15.3 (10-20); Creatinine Clr Calc Pharmacy 100.1 ml/min; Est GFR (African American) 98.1 ml/min; Est GFR (Non-African American) 84.6 ml/min; Potassium 3.7 mmol/L (3.5-5.1)
[2020-10-03 10:58] LABS: Beta-Hydroxybutyrate 2.07 mg/dl (0.2-2.81)
[2020-10-03] MEDS ORDERED: KETOROLAC 30 MG/ML VIAL IV SCH (15:00)
[2020-10-03] MEDS: KETOROLAC TROMETHAMINE 15 MG/ML VIAL IV SCH ×2 (15:28→20:53)
[2020-10-03] MEDS: MoRPHine SULFATE CR 15 MG TABCR PO SCH (17:34)
[2020-10-03] MEDS: ROSUVASTATIN CALCIUM 20 MG TAB PO SCH (20:53)
[2020-10-04] MEDS: KETOROLAC TROMETHAMINE 15 MG/ML VIAL IV SCH ×3 (03:25→15:08)
[2020-10-04] MEDS: MoRPHine SULFATE CR 15 MG TABCR PO SCH (05:36)
[2020-10-04] MEDS: ACETAMINOPHEN 500 MG TAB PO SCH ×2 (05:36→15:12)
--- NOTE | 2020-10-04 06:11 | Orthopedic Progress Note ---
Date of Service October 04, 2020 Assessment & Plan (1) Arthritis of right knee: Postop day 3 status post right total knee arthroplasty. PT/OT protocols. Weightbearing as tolerated. DVT prophylaxis-aspirin p.o. twice daily, SCDs, ELLA morales. Pain management as written. DC planning-[facility] later today Admission and Anticipated Discharge Date Admission Date: October 03, 2020 Supervising Physician Co-Signing Physician Notes Patient seen and examined. Agree with NNEKA Bustos's note as above. Patient doing much better today. Pain is better controlled. He is ambulating better, now able to get to the hallway. Plan for discharge to [facility] today. Subjective Postop day 3 laying in bed, comfortable. states last night was his best night so far. pain currently 08/23 Review of Systems Constitutional: no fever and no chills Respiratory: no cough and no chest congestion Cardiovascular: no chest pain and no dyspnea Gastrointestinal: no nausea and no vomiting Physical Exam Physical Exam: Vital Signs Temp 37.2 C 10/03/20 22:24 Pulse 86 10/03/20 22:24 Resp 18 10/03/20 22:24 BP 123/75 10/03/20 22:24 Pulse Ox 93 10/03/20 22:24 Intake & Output 10/03/20 10/03/20 10/04/20 06:59 18:59 06:59 Intake Total 425 / 425 Output Total 1126 / 1626 300 / 302 2 / 302 Balance -1126 / -276 -300 / 123 423 / 123 Intake: Oral 425 / 425 Output: Urine 1000 / 1250 300 / 300 Drain Output 125 / 375 Right Knee Hem ovac 125 / 375 # Bowel Movement s 1 / 2 / 2 Other: # Unmeasured Voi ds 1 1 Constitutional: WD/WN, vitals as above no acute distress Musculoskeletal: Right Knee- NVDI, calf SNT, negative rossi sign. DP palpable, able to wiggle toes/ankle movement without difficulty. prinea dressing clean dry and intact. expected post-operative bruising noted. Results & Data ([facility]) Vital Signs (Past 12 Hours) Vital Signs Temp Pulse Resp BP Pulse Ox 10/03/20 22:24 37.2 C 86 18 123/75 93
[2020-10-04] MEDS: INSULIN ASPART 100 UNITS/ML 3 ML PEN SC SCH ×2 (07:50→12:43)
[2020-10-04] MEDS: INSULIN GLARGINE SOLOSTAR 100 UNITS/ML 3 ML PEN SC SCH (07:53)
[2020-10-04] MEDS: DUTASTERIDE 0.5MG PO SCH (07:59)
[2020-10-04] MEDS: ASPIRIN 81 MG ECTAB PO SCH (07:59)
[2020-10-04] MEDS: TAMSULOSIN HCL 0.4 MG CAP PO SCH (07:59)
[2020-10-04] MEDS: LOSARTAN POTASSIUM 25 MG TAB PO SCH (07:59)
[2020-10-04] MEDS: MULTIVITAMIN TAB PO SCH (07:59)
[2020-10-04] MEDS ORDERED: INSULIN GLARGINE SOLOSTAR 100 UNITS/ML 3 ML PEN SC ONE (08:30)
[2020-10-04] MEDS: oxyCODONE HCL IR 5 MG TAB (IMMEDIATE RELEASE) PO PRN (12:51)
--- NOTE | 2020-10-08 10:57 | Discharge Summary ---
Date of Service October 08, 2020 Admission HPI Per Admitting Provider Rafael is a pleasant 65 year old male who complains of right knee pain, presents for pre-op evaluation prior to a Right total knee replacement by Dr Sinclair at [facility]. he has complaints of pain, decreased range of motion and stiffness in his right knee. Currently the patient states that the symptoms are moderate-severe and rated as 6/10. The pain is described as aching, sharp and throbbing. His symptoms are aggravated by ascending stairs, daily activities, first steps while awake walking. Prior NSAIDs include Aleve, IBU. he has continued right knee pain, has history of scope in December 2019 followed by Durolane injection in February 2020 without relief. x-rays taken today showing advanced DJD right knee with bone on bone changes. we discussed his options, he would like to proceed with right TKA at [facility]. Admission Exam Per Admitting Provider Physical Exam: HT: 5ft 10in WT: 119.9kg Constitutional: WD/WN, vitals as above no acute distress Respiratory: normal respiratory effort, lungs clear to auscultation no respiratory distress, no labored breathing and does not use accessory muscles Cardiovascular: RRR, no murmur, no edema Gastrointestinal (Abdomen): normal bowel sounds, soft, nontender, no hepatosplenomegaly Musculoskeletal: Knee: + knee abnormal to inspection (Right Knee: ), + effusion (+1 effusion), + surgical incision (well healed portals), + limited ROM of knee (ROM 0/3/110), + knee ROM with crepitation, + joint line tenderness (medial joint line) and + Timoteo's sign positive; no deformity, no skin erythema, no ecchymosis, no valgus laxity, no varus laxity, anterior drawer test negative, Kamari's sign negative and pivot shift test negative Principal Diagnosis Right knee osteoarthritis Discharge Exam Subjective Postop day 3 laying in bed, comfortable. states last night was his best night so far. pain currently 4/10 Review of Systems Constitutional: no fever and no chills Respiratory: no cough and no chest congestion Cardiovascular: no chest pain and no dyspnea Gastrointestinal: no nausea and no vomiting Physical Exam Physical Exam: Vital Signs Temp 37.2 C 10/03/20 22:24 Pulse 86 10/03/20 22:24 Resp 18 10/03/20 22:24 BP 123/75 10/03/20 22:24 Pulse Ox 93 10/03/20 22:24 Intake & Output 10/03/20 10/03/20 10/04/20 06:59 18:59 06:59 Intake Total 425 / 425 Output Total 1126 / 1626 300 / 302 2 / 302 Balance -1126 / -276 -300 / 123 423 / 123 Intake: Oral 425 / 425 Output: Urine 1000 / 1250 300 / 300 Drain Output 125 / 375 Right Knee Hem ovac 125 / 375 # Bowel Movement s 2 / 2 Other: # Unmeasured Voi ds 1 1 Constitutional: WD/WN, vitals as above no acute distress Musculoskeletal: Right Knee- NVDI, calf SNT, negative rossi sign. DP palpable, able to wiggle toes/ankle movement without difficulty. prinea dressing clean dry and intact. expected post-operative bruising noted. Discharge Data Allergies Allergy/AdvReac Type Severity Reaction Status Date / Time empagliflozin Allergy Unknown URINARY Verified 08/22/20 14:07 [From Jardiance] TRACT INFECTION nickel Allergy Unknown RASH Verified 08/22/20 14:07 tetanus toxoid, adsorbed Allergy Unknown ITCHING Verified 08/22/20 14:07 lisinopril AdvReac Unknown Cough Verified 08/22/20 14:07 Procedures Performed Operation Date: 10/01/20 08:10 Actual Procedures p Right Total Knee Arthroplasty(Right) - Good Sinclair DO Ordered Studies 10/01/20 05:00 US - OR guided needle placemen Routine Hospital Course (1) Osteoarthritis of right knee: Patient was admitted on the above-noted date and had the above-noted surgery performed which he tolerated well.On his first postoperative day, he was having fair amount of pain that morning. IV pain medication as well as p.o. pain medication has been given. No other complaints that morning. Dressings were clean, dry, and intact. Calves were soft and nontender. Neurovascular was intact. Toes were mobile. Vital signs were stable and his hemoglobin was 11.8. He was started on PT and OT protocols and continued on DVT prophylaxis and pain management. By his second postoperative day, he he continued to have pain off and on in the operative knee. He initially was planning on going home however he changed his mind and plans were for a group home facility. Vital signs remaining stable. After reassessing him later that afternoon, he continued to have uncontrolled pain. MS Contin 15 mg p.o. twice daily and Toradol 15 mg IV every 6 hours scheduled were added. IV Dilaudid was held. His transfer to [facility] was held. By his third postoperative day, his pain control is much better. He was ambulating better. Vital signs were stable. With better pain control was felt that the patient could be transferred to group home [facility] for further physical therapy and care. He was thusly discharged to [facility] for further care. Total Time Total Time Spent Total Time Spent (In Minutes): 5 Discharge Plan Discharge Items Patient Disposition: Transfer [facility] Reason For Visit: Osteoarthritis, Right Knee Discharge Diagnosis: Right knee osteoarthritis Condition on Discharge: Good Activity: Per Instructions section Weightbearing: Right weightbearing Weightbearing Comment: As tolerated with walker. Non-emergency contact: Surgeon Call non-emergency contact if: you have any medication questions, your pain is not controlled, your temperature is above 101.5, your wound has increased redness and your wound has increased drainage Follow-up/Referrals: Raza Miramontes [Primary Care Provider] - Diet: Carb Consistent or DM2 Addtl Attending Provider Instructions: ACTIVITY RECOMMENDATIONS: SELF CARE INSTRUCTIONS AFTER TOTAL KNEE REPLACEMENT A. You may need to continue a physical therapy program after discharge from the hospital. There are several options available to you. Your doctor will assist you in selecting the best one for you. 1. An out-patient facility 2 to 3 times a week for therapy or home therapy. 2. Continue working on all exercises taught to you in the hospital. Your goals should be to increase bending of your knee to 90 degrees and beyond and to fully straighten your knee. B. You may progress at your own pace from walking with a walker or crutches to a cane; then to no assistive devices. C. Make walking a part of your daily routine. Be up as much as comfortable with rest periods throughout the day. Rest with leg elevation is very important. Use the ice wrap frequently for the first 3-4 weeks. D. There are no restrictions on activities. You may ride in a car, shop, participate in chrome polisher and all social activities. E. Wear the long elastic stockings (ELLA hose) 20 hours a day for 2 weeks after surgery. They can be removed several times a day for laundering and for a bath. F. You may shower, no tub baths until cleared by your doctor. SPECIAL CARE INSTRUCTIONS: VERY IMPORTANT TO READ AND REVIEW A. There are a few signs you need to watch for after you are home. Call [facility] if you notice any of the followin. Increased severe knee pain. Some pain is expected especially when you exercise. 2. Increased swelling in your leg or knee; pain or swelling of the calf muscle in either lower leg. 3. Any fluid drainage from the incision. 4. Shortness of breath or chest pain. B. Please call [facility] at if you have any concerns or questions about your operation or recovery. The doctor or his nurse will return your call promptly. C. You must take antibiotics before dental work, bladder, bowel or other surgery. Your doctor will provide you with a permanent care to carry describing this precaution. IMPORTANT: * REMEMBER TO TAKE ASPIRIN, 81 MG, TWICE DAILY FOR 4 WEEKS UNLESS OTHERWISE DIRECTED. THIS IS YOUR BLOOD THINNER. * HIGH RISK PATIENTS MAY BE PRESCRIBED A STRONGER BLOOD THINNER. THIS WILL BE PROVIDED AT DISCHARGE. * CALL IF INCREASED PAIN, REDNESS, DRAINAGE OR FEVER GREATER THAT 101. * WEAR ELLA HOSE 20 HOURS PER DAY FOR 2 WEEKS. * DERMABOND Prineo- This is a mesh tape dressing that is covered with glue. It should remain in place until the incision is properly healed, usually 10-14 days. This dressing is designed to naturally slough off. You may trim the excess mesh tape as it peels off. Incision may be briefly wet in a shower. Dry immediately by blotting with a clean, dry towel. Do not bath or swim until instructed by your doctor. Do not scratch, rub, or pick at the dressing. Do not apply any topical ointments or lotions until dressing is completely removed and/or instructed by your doctor. There may be a small piece of suture material at one end of your incision. Do not pull or trim this. If it is bothersome or catching on clothing, you may cover it with a band-aid. Please call the office with any wound questions. . FOLLOW UP VISIT: If appointment is not already scheduled: Please call [facility] to make a follow-up appointment for 2 weeks after your surgery at . Pending Studies at Discharge: No Stand-Alone Forms: My [facility] [email or web address], Smoking Cessation Skilled Items Patient informed of condition?: Yes Discharge Level of Care: Skilled Discharge Prognosis: Stable Lines: None Urinary Catheter: No Medications and DC Order Prescriptions: New acetaminophen 500 mg Tablet 1,000 mg PO Q8 14 Days Qty: 84 RF: 0 aspirin 81 mg Tablet,Delayed Release (Dr/Ec) 81 mg PO BID 30 Days Qty: 60 RF: 0 polyethylene glycol 3350 [Miralax] 17 gram powder in packet 17 g PO DAILY PRN (Reason: constipation) Qty: 5 RF: 0 oxycodone 5 mg Tablet 5 - 10 mg PO Q6H PRN (Reason: pain) Qty: 30 RF: 0 cefadroxil 500 mg capsule 500 mg PO BID Qty: 28 RF: 1 Continued multivitamin Tablet 1 tab PO DAILY RF: 0 ascorbic acid (vitamin C) [Vitamin C] 500 mg Tablet 500 mg PO DAILY RF: 0 ferrous sulfate [iron] 325 mg (65 mg iron) Tablet 325 mg PO DAILY RF: 0 metformin 1,000 mg Tablet 1,000 mg PO BID RF: 0 losartan 25 mg Tablet 25 mg PO QAM RF: 0 dutasteride 0.5 mg Capsule 0.5 mg PO QAM RF: 0 rosuvastatin 40 mg Tablet 40 mg PO HS RF: 0 glimepiride 2 mg Tablet 2 mg PO QAM RF: 0 tamsulosin 0.4 mg Capsule 0.4 mg PO DAILY RF: 0 Discontinued aspirin [Aspir-Low] 81 mg Tablet,Delayed Release (Dr/Ec) 81 mg PO DAILY RF: 0 Discharge Orders: Discharge Order (Routine); Ordered 10/04/20 Ordered By: Yonatan Bustos Admission Data Admit Date/Time: 10/01/20 10:29 Attending Provider: Good Sinclair Admit Provider: Good Sinclair Primary Care Provider: Raza Miramontes Other Providers: [facility],Home Healthcare ; Dianna Neal [facility] Other Interventions: Discharge Summary Assessment (RN) Last Done: 10/04/20 12:59
== END 2020-10-04 16:28 ==
LOC: ASU 05:42 → 3E 05:42

== ENCOUNTER 2024-04-06 10:43 | Inpatient (IN) ==
[2024-04-06 11:23] LABS: Basophils # (auto) 0.08 K/uL (0.00-0.20); Basophils % (auto) 1.1 %; Eosinophils % (auto) 2.7 %; Hemoglobin 8.8 g/dl (14.0-18.0); Immature Granulocytes # (auto) 0.04 K/uL (0.01-0.20); Immature Granulocytes % (auto) 0.5 %; Lymphocytes # (auto) 0.85 K/uL (1.20-3.40); Lymphocytes % (auto) 11.4 %; Mean Corpuscular Hgb Conc 32.6 g/dL (32.0-36.0); Mean Corpuscular Volume 101.1 fL (80.0-100.0); Mean Platelet Volume 10.5 fL (9.4-12.4); Monocytes # (auto) 0.47 K/uL (0.11-0.59); Monocytes % (auto) 6.3 %; Neutrophils # (auto) 5.82 K/uL (1.40-6.50); Platelet Count 210 K/uL (130-400); RDW Coefficient of Variation 15.6 % (11.5-14.5); Red Blood Count 2.67 M/uL (4.70-6.10); White Blood Count 7.46 K/ul (4.8-10.8)
[2024-04-06 11:39] LABS: Albumin Globulin Ratio 1.6 (0.9-2); Albumin Level 4.1 gm/dl (3.4-5.0); BUN Creatinine Ratio 23.8 (10-20); Bilirubin,Total 0.9 mg/dl (0.2-1.0); Calcium 9.3 mg/dl (8.6-10.3); Globulin 2.6 gm/dl (2.5-4.0); Potassium 4.2 mmol/L (3.5-5.1); Total Protein 6.7 gm/dl (6.0-8.3)
--- NOTE | 2024-04-06 11:42 | Emergency Department Note ---
Impression & Plan Anemia, Acute GI bleeding ED Provider Note NAME: MARY KATE MARQUEZ AGE: 68 SEX: Male INFORMANT: Patient ED PROVIDER(S): Hansel Landers MD CHIEF COMPLAINT: Abnormal labs admitted PLAN: Disposition: Admitted Outpatient prescription management: none Referral: None MEDICAL DECISION MAKING: Patient presented and was evaluated. Physical examination revealed possible palpable mass in the right lower quadrant without any tenderness. Rectal examination showed dark stool with Hemoccult positive testing. Patient was hemodynamically stable. Blood work was obtained and he was found to have an anemia which dropped from 13 down to 8. The patient had unremarkable chemistries otherwise. Patient was given Protonix and Pepcid. CT imaging was ordered. Patient was prepped with oral contrast to assist in diagnostic accuracy. Due to the anemia and suspected GI source the patient will need further evaluation and management in the hospital. Consultation was made with the [facility] hospitalist service. Patient was evaluated in the ER and admitted under Dr. Ibanez service for further management. Care/management discussed with: none Level of care consideration(s): After review of the information above and other included data, I feel the patient requires escalation of care to admission Triage Nursing notes: reviewed and agree them. Vital Signs: reviewed and remarkable for no significant abnormalities Additional History obtained from: none Chronic Medical/Social Conditions affecting care: Diabetes, hypertension Prior/ Outside/ External records reviewed: none Differential Diagnosis: Diverticulosis, AVM, coagulopathy, inflammatory bowel disease, malignancy, peptic ulcer disease, cardiac sources, electrolyte abnormality, as well as other pathologies. Diagnostics, independently interpreted by me: ECG: Twelve-lead ECG reveals a normal sinus rhythm at 95 bpm. Left axis deviation. No ST elevation or depression. No PVCs. Cardiac Monitoring: Cardiac monitoring ordered by me: The patient was placed on continuous cardiac monitoring and observed. It revealed a normal sinus rhythm at 81 beats per minute without ectopy or evidence of dysrhythmia. Medical decision rules: none Imaging studies: CT imaging of the abdomen pelvis was negative for acute pathology. No sign of obstruction or mass. I refer you to the EMR for further details. HPI: 68 year old Male arrives for evaluation of abnormal labs. This started from labs done yesterday at the [facility] and he was found to be significantly anemic. Hemoglobin was in the 8 range. The patient also notes the following associated symptoms, some dyspnea on exertion with fatigue. Low energy. Family notes patient does have times where he looks pale. He does note some dark black stool but states he takes iron twice daily. This has been dark for "quite some time". The patient has been prescribed no relieving factors. Current pain is rated as 0/10. Patient states that he also noticed a lump on the right side of his abdomen. Pt denies LOC, headache, fevers, chills, diaphoresis, visual changes, neck pain, chest pain, current breathing difficulties, nausea, vomiting, abdominal pain, back pain, hematochezia, urinary symptoms, numbness, focal weakness, lymphadenopathy, rash, or other complaints. . PAST MEDICAL HISTORY: See Below, osteoarthritis, diabetes, hypertension PAST SURGICAL HISTORY: See Below, right total knee replacement SOCIAL HISTORY: See Below, HOME MEDICATIONS: See Below ALLERGIES: See Below VITALS: See Below PHYSICAL EXAMINATION: GENERAL: Awake, alert, well-appearing, in no distress HENT: Normocephalic, atraumatic. Oropharynx unremarkable. EYES: Pale conjunctiva. Sclera non-icteric. NECK: Inspection normal. Non-tender. Supple. No nuchal rigidity. FROM. No masses. RESPIRATORY: Clear to auscultation. No wheezes. No rales. Normal respiratory effort. CARDIAC: Normal rate. Normal rhythm. No murmurs. No rubs. Extremities warm and well perfused. Pulses equal. No JVD. GI: Soft, non-distended. No tenderness to palpation. No rebound or guarding. No masses. RECTAL: Dark stool. Hemoccult positive. MUSCULOSKELETAL: Atraumatic. Chest examination reveals no tenderness. The back is symmetrical on inspection without obvious abnormality. There is no CVA tenderness to palpation. No joint edema. LOWER EXTREMITIES: Calves are essentially equal size bilaterally and non-tender. Trace edema which is worse on the right. No discoloration. NEURO: Normal sensorium. No sensory or motor deficits noted. SKIN: No rash or jaundice noted. PROCEDURES: none CRITICAL CARE: none OBSERVATION NOTE: none Past Med/Surg History Problem List (Updated 04/06/24 @ 16:05 by Yonatan Durham) Symptomatic severe aortic stenosis with normal ejection fraction Symptomatic anemia Acute GI bleeding (Acute) Occult blood in stools Acute on chronic anemia Encounter for pre-operative examination Osteoarthritis of right knee BPH (benign prostatic hyperplasia) (Chronic) REMBERTO on CPAP (Chronic) Obesity (Chronic) Dyslipidemia (Chronic) Diabetes mellitus, type II (Chronic) Anemia (Acute) HTN (hypertension) (Chronic) Medical History History of colon polyps BENIGN Scoliosis Osteoarthritis BPH (benign prostatic hyperplasia) GERD (gastroesophageal reflux disease) Not an issue recently Diabetes mellitus, type 2 Anemia Glaucoma RESOLVED S/P SURGICAL INTERVENTION Hyperlipidemia Sleep apnea CPAP, COMPLIANT. Surgical History History of total right knee replacement (TKR) History of cardiac cath ABNORMAL STRESS TEST IN 2017 - NO STENTS. 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) History of repair of rotator cuff RT/LEFT History of esophagogastroduodenoscopy (EGD) History of colonoscopy History of tooth extraction History of tonsillectomy History of adenoidectomy History of myringotomy Family History Grandmother (Maternal) Family history of diabetes mellitus Mother Family history of esophageal cancer Sister Family history of diabetes mellitus Social History Smoking Status: Former smoker Tobacco Type: Cigarettes Second Hand Exposure: No; Do You Dip or Chew Tobacco: No; Tobacco Cessation Education Requested by Patient: No Hx Alcohol Use: Yes Alcohol type: hard liquor Hx Substance Use: No Preferred Language: Danish Communication Ability: Effective Audio Video Tech Required: No Beliefs That Will Affect Care: None marital status: Current Living Situation: Alone Current Living Situation Comment: currently in rehab facility Other Information That Helps Us Care for You: No Feels Safe at Home: Yes Safety Concerns: Feels Safe At This Time Assistive Devices: Glasses Allergies Allergies Allergy/AdvReac Type Severity Reaction Status Date / Time nickel Allergy Unknown RASH Verified 06/29/23 08:10 tetanus toxoid, adsorbed Allergy Unknown ITCHING Verified 06/29/23 08:10 empagliflozin AdvReac Unknown URINARY Verified 06/29/23 08:10 [From Jardiance] TRACT INFECTION lisinopril AdvReac Unknown Cough Verified 06/29/23 08:10 Home Meds Home Medications Medication Instructions Recorded Confirmed dutasteride 0.5 mg capsule 0.5 mg PO QAM 08/11/18 04/06/24 ferrous sulfate 325 mg (65 mg 325 mg PO BID 08/11/18 04/06/24 iron) tablet (iron) losartan 25 mg tablet 50 mg PO QAM 08/11/18 04/06/24 metformin 1,000 mg tablet 1,000 mg PO BID 08/11/18 04/06/24 multivitamin 1 tab PO QAM 08/11/18 04/06/24 rosuvastatin 40 mg tablet 40 mg PO HS 08/11/18 04/06/24 glimepiride 2 mg tablet 2 mg PO QAM 08/22/20 04/06/24 tamsulosin 0.4 mg capsule 0.4 mg PO HS 10/01/20 04/06/24 latanoprost 0.005 % eye drops 1 drp OPB PM 11/02/23 04/06/24 timolol maleate 0.25 % eye drops 2 drp OPB DAILY 11/02/23 04/06/24 Tylenol Ex Str Rapid Release 1,000 mg PO DIRECTED PRN Pain 04/06/24 04/06/24 aspirin 81 mg tablet,delayed 81 mg PO QAM 04/06/24 04/06/24 release Results & Data (ED) Vital Signs Vital Signs - 24 hr 04/06/24 10:45 04/06/24 11:11 04/06/24 11:12 Temperature 37.0 C Temperature Source Temporal Artery Scan Pulse Rate 99 H 93 H Pulse Rate [Apical] 93 H Respiratory Rate 16 19 Respiratory Effort / Characteristics Non-Labored Spontaneous Respiratory Depth Normal Respiratory Pattern Regular Blood Pressure 129/58 L Blood Pressure [Left Arm] 112/74 Blood Pressure Mean 81 Blood Pressure Mean [Left Arm] 86 Pulse Oximetry 96 95 Oxygen Delivery Method Room Air Room Air Sepsis Recent Fever Within 48 Hours No Sepsis New/Unexplained Change in Mental Status No Sepsis Action Taken by Nursing No Action Required 04/06/24 11:14 Temperature Temperature Source Pulse Rate Pulse Rate [Apical] Respiratory Rate Respiratory Effort / Characteristics Respiratory Depth Respiratory Pattern Blood Pressure Blood Pressure [Left Arm] Blood Pressure Mean Blood Pressure Mean [Left Arm] Pulse Oximetry 97 Oxygen Delivery Method Room Air Sepsis Recent Fever Within 48 Hours Sepsis New/Unexplained Change in Mental Status Sepsis Action Taken by Nursing Laboratory Data 04/06/24 11:08 04/06/24 11:08 Lab Results 04/06/24 04/06/24 04/06/24 Range/Units 11:02 11:08 11:09 WBC 7.46 (4.8-10.8) K/ul RBC 2.67 L (4.70-6.10) M/uL Hgb 8.8 L (14.0-18.0) g/dl Hct 27.0 L (42.0-52.0) % MCV 101.1 H (80.0-100.0) fL MCH 33.0 (25.0-34.0) pg MCHC 32.6 (32.0-36.0) g/dL RDW Std Deviation 56.0 H (36.4-46.3) fL RDW Coeff of Freddie 15.6 H (11.5-14.5) % Plt Count 210 (130-400) K/uL MPV 10.5 (9.4-12.4) fL Immature Gran % (Auto) 0.5 % Neut % (Auto) 78.0 % Lymph % (Auto) 11.4 % [place] % (Auto) 6.3 % Eos % (Auto) 2.7 % Baso % (Auto) 1.1 % Neut # (Auto) 5.82 (1.40-6.50) K/uL Lymph # (Auto) 0.85 L (1.20-3.40) K/uL [place] # (Auto) 0.47 (0.11-0.59) K/uL Eos # (Auto) 0.20 (0.00-0.50) K/uL Baso # (Auto) 0.08 (0.00-0.20) K/uL Immature Gran # (Auto) 0.04 (0.01-0.20) K/uL PT 10.9 (9.0-12.0) Seconds INR 1.0 (0.9-1.1) APTT 23 (21-31) Seconds PTT Ratio 0.9 Sodium 138 (136-145) mmol/L Potassium 4.2 (3.5-5.1) mmol/L Chloride 106 (98-107) mmol/L Carbon Dioxide 23 (21-32) mmol/L Anion Gap 9 (3-11) BUN 19 (6-23) mg/dl Creatinine 0.80 (0.6-1.4) mg/dl Est Cr Clr Drug Dosing 106.0 ml/min eGFR 95.21 BUN/Creatinine Ratio 23.8 H (10-20) Glucose 265 H (70-99(Fasting)) mg/dl Calcium 9.3 (8.6-10.3) mg/dl Total Bilirubin 0.9 (0.2-1.0) mg/dl AST 15 (13-39) U/L ALT 13 (7-52) U/L Alkaline Phosphatase 54 (34-104) U/L Troponin I High Sens 6.8 (0-20) pg/ml Total Protein 6.7 (6.0-8.3) gm/dl Albumin 4.1 (3.4-5.0) gm/dl Globulin 2.6 (2.5-4.0) gm/dl Albumin/Globulin Ratio 1.6 (0.9-2) POC Stool Occult Blood (Negative) Anaplasma Smear See Comment Babesia Smear See Comment Lyme Disease Screen Negative (Negative) Blood Type AB Positive Antibody Screen NEGATIVE 04/06/24 Range/Units 11:33 WBC (4.8-10.8) K/ul RBC (4.70-6.10) M/uL Hgb (14.0-18.0) g/dl Hct (42.0-52.0) % MCV (80.0-100.0) fL MCH (25.0-34.0) pg MCHC (32.0-36.0) g/dL RDW Std Deviation (36.4-46.3) fL RDW Coeff of Freddie (11.5-14.5) % Plt Count (130-400) K/uL MPV (9.4-12.4) fL Immature Gran % (Auto) % Neut % (Auto) % Lymph % (Auto) % [place] % (Auto) % Eos % (Auto) % Baso % (Auto) % Neut # (Auto) (1.40-6.50) K/uL Lymph # (Auto) (1.20-3.40) K/uL [place] # (Auto) (0.11-0.59) K/uL Eos # (Auto) (0.00-0.50) K/uL Baso # (Auto) (0.00-0.20) K/uL Immature Gran # (Auto) (0.01-0.20) K/uL PT (9.0-12.0) Seconds INR (0.9-1.1) APTT (21-31) Seconds PTT Ratio Sodium (136-145) mmol/L Potassium (3.5-5.1) mmol/L Chloride (98-107) mmol/L Carbon Dioxide (21-32) mmol/L Anion Gap (3-11) BUN (6-23) mg/dl Creatinine (0.6-1.4) mg/dl Est Cr Clr Drug Dosing ml/min eGFR BUN/Creatinine Ratio (10-20) Glucose (70-99(Fasting)) mg/dl Calcium (8.6-10.3) mg/dl Total Bilirubin (0.2-1.0) mg/dl AST (13-39) U/L ALT (7-52) U/L Alkaline Phosphatase (34-104) U/L Troponin I High Sens (0-20) pg/ml Total Protein (6.0-8.3) gm/dl Albumin (3.4-5.0) gm/dl Globulin (2.5-4.0) gm/dl Albumin/Globulin Ratio (0.9-2) POC Stool Occult Blood Positive A (Negative) Anaplasma Smear Babesia Smear Lyme Disease Screen (Negative) Blood Type Antibody Screen Administered Medications Discontinued Medications Pantoprazole Sodium (Protonix) 40 mg in 10 mls @ 5 mls/min IV NOW ONE Stop: 04/06/24 11:38 Last Admin: 04/06/24 11:53 Dose: 5 mls/min Documented By: SABINE Famotidine (Pepcid 20mg Iv Push) 20 mg in 5 mls @ 2.5 mls/min IV NOW STA Stop: 04/06/24 11:38 Last Admin: 04/06/24 11:53 Dose: 2.5 mls/min Documented By: SABINE Ioversol (Optiray 320 100ml) 94 ml IV ONCE ONE Stop: 04/06/24 14:29 Last Admin: 04/06/24 14:21 Dose: 94 ml Documented By: BHAVESH Imaging Data Radiologist's Impression: Abdomen/Pelvis CT 04/06/24 11:43 CT OF THE ABDOMEN AND PELVIS WITH CONTRAST CLINICAL HISTORY: GI bleed, RLQ palpable mass. COMPARISON STUDY: None. TECHNIQUE: Following IV administration of 94 mL of Optiray, axial images of the abdomen and pelvis were obtained from the lung bases to the proximal femurs. Images were reviewed in the axial, sagittal, and coronal planes. IV contrast was administered without complication. Automated exposure control was utilized for the study. A dose lowering technique was utilized adhering to the principles of ALARA. Oral contrast was administered. CT DOSE: 1316.74 mGy.cm FINDINGS: No pneumatosis, free air or portal venous gas is present. There are no hepatic lesions. The spleen, adrenal glands, kidneys and pancreas are unremarkable. There is no biliary or pancreatic ductal dilatation. The caliber and wall thickness of small and large bowel are normal. No intraluminal contrast is identified on this exam to suggest active GI bleed although portions of the bowel are obscured by oral contrast. There is colonic diverticulosis without evidence for acute diverticulitis. The appendix is normal. Bladder is mildly distended. There is no lymphadenopathy. No mass, fluid collection or enlarged lymph nodes are identified. There are small fat-containing bilateral inguinal hernias. IMPRESSION: 1. No acute process within the abdomen or pelvis. 2. No bowel obstruction. No bowel wall thickening. Normal appendix. 3. Sigmoid diverticulosis. No evidence for acute diverticulitis. 4. No findings to indicate active GI bleed by CT. ACT 112: Negative or not required by law. Electronically signed by: Issa Pereira M.D. 04/06/2024 3:21 PM Discharge Plan Visit Data Chief Complaint: Abnormal Labs/Diagnostic Testing Stated Complaint: ABN BLOOD WORK ED Provider: Hansel Landers Discharge Problem: Anemia, Acute GI bleeding Discharge Instructions Interventions: ED Discharge Assessment Last Done: 04/06/24 14:16
[2024-04-06 11:45] LABS: Troponin I High Sensitivity 6.8 pg/ml (0-20)
[2024-04-06 11:48] LABS: Partial Thromboplastin Ratio 0.9; Partial Thromboplastin Time 23 Seconds (21-31); Prothrombin Time 10.9 Seconds (9.0-12.0)
--- NOTE | 2024-04-06 11:49 | History & Physical Report ---
Date of Service April 06, 2024 Assessment & Plan (1) Acute on chronic anemia: (2) Occult blood in stools: Plan Rafael Cantu is a 68y/o M with PMHx significant for DM type II, dyslipidemia, diabetic nephropathy, REMBERTO on CPAP, HTN, aortic valve stenosis, severe obesity, BPH with obstruction/lower urinary tract symptoms, benign paroxysmal vertigo, bilateral primary open-angle glaucoma, iron deficiency anemia and depression who presented to the ED via referral from his PCP due to acute on chronic anemia and worsening fatigue. Symptomatic Acute on Chronic Anemia Hemoccult Positive, Likely Upper GI Bleed: Hgb 8.8 on admission, baseline Hgb ~11-13 per chart review. Hemoccult stool positive in the ED. CTAP pending - patient has felt a RLQ lump + unintentional weight loss. Most recent colonoscopy performed 06/29/2023 -> Normal appearance of the colon, multiple small and large-mouthed diverticula in the sigmoid colon, internal hemorrhoids. Blood consent obtained in the ED already, type/cross for 2 units of PRBCs as a precaution - on hold for now pending Hgb trend. GI consult pending; NPO except sips/chips for now. Tick borne panel pending. AM anemia workup pending. S/p 20mg IV Pepcid, 40mg IV Protonix in the ED. Continue IV Protonix 40mg BID. Trend H/H. Hold home ASA, iron supplementation for now. Chest Pressure, Recent Presyncopal Events: Patient with recent episodes of chest pressure and presyncopal events with exertion. Known aortic valve stenosis, + systolic murmur on exam. Troponin x 1 negative, admitting EKG with no overt evidence of ischemia. Will proceed with routine echocardiogram. Hold off on shakeel nding troponin for now given no acute cardiac symptoms per patient. DM Type II: Hold home agents, SSI regimen while inpatient. BSG checks ACHS. Most recent Hgb A1c was 4.9% on 04/05/2024. Other Chronic Medical Conditions: Dyslipidemia/BPH/Glaucoma/HTN --> Can continue home medications for these specific conditions. Continue CPAP HS for REMBERTO. DVT Prophylaxis: SCDs/TEDs for now ISO above. Code Status: FULL CODE PCP: Declan Dejesus MD Disposition: Admit to Med/Tele - Anticipated discharge date uncertain at this time pending his clinical course. Patient seen in collaboration with Dr. Ibanez. Please see addendum. I spent a total of 75 minutes coordinating, documenting, and providing care for this patient excluding time spent in the performance of separately billed services. This included personally reviewing all current laboratories and imaging studies, medical reconciliation, outpatient chart review and discussion with specialists. This chart was completed in part utilizing Speech Voice Recognition Software. Grammatical errors, random word insertions, pronoun errors, and incomplete sentences are an occasional consequence of this system due to software limitations, ambient noise, and hardware issues. Any formal questions or concerns about the content, text, or information contained within the body of this dictation should be directly addressed to the provider for clarification. History of Present Illness Chief Complaint: Referred by PCP: Acute Anemia, Increasing Fatigue Primary Care Provider: Declan Dejesus MD Rafael Cantu is a 68y/o M with PMHx significant for DM type II, dyslipidemia, diabetic nephropathy, REMBERTO on CPAP, HTN, severe obesity, BPH with obstruction/lower urinary tract symptoms, benign paroxysmal vertigo, bilateral primary open-angle glaucoma, iron deficiency anemia and depression who presented to the ED via referral from his PCP due to acute on chronic anemia and worsening fatigue. History obtained from the patient, daughter at bedside and associated chart review. He had a PCP appointment yesterday due to increasing fatigue and was found to have a hemoglobin of 8.9 (previous Hgb was 13 in October of this year) therefore he was referred into the ED for further evaluation. Patient reports that he has been dealing with fatigue for several months, however it seems to have worsened lately. He has also been noticing some mild shortness of breath with exertion. He mentions that he can no longer walk around the grocery store for very long without feeling like he is going to pass out. He states that over the past couple of days it feels as if he has "a really bad hangover" but he denies any recent alcohol use. Reports that he has black, tarry stools at baseline ever since starting an iron supplement over 20 years ago. He did not notice any red streaking or bright red blood in his stools lately and his last bowel movement was this morning. No recent fevers recorded however he did report a bout of night sweats last evening. Patient also endorses an approximate 40 pound weight loss over the past couple of months. Mentions he used to weigh 285 pounds. He reports that his appetite has been somewhat suppressed over the past couple of months but over the last couple of days he mentions that he has felt rather insatiable. Other than that he was not making any other lifestyle changes to promote intentional weight loss. Denies any recent nausea or vomiting, he has not noticed any hematuria either. He reports that he has felt a lump in his right lower abdominal quadrant intermittently - which he mentions he first noticed a few months ago. He does experience some intermittent right lower quadrant abdominal pain as well. He does endorse some intermittent centralized chest pressure over the past couple of weeks - which he has taken baby aspirin for at home with relief. He did have an elevated troponin on outpatient lab work yesterday of . His troponin today in the ED was negative and his EKG revealed no overt evidence of acute ischemic changes. He reports that he is to have an echocardiogram done next month for evaluation of a murmur that he has, which he reports has been pr esent for many years. Patient states there was concern from his PCP that he may have a bad valve - patient and his daughter are unsure of which one his PCP was specifically referring to. He has been experiencing intermittent tingling in his upper extremities over the past couple of weeks but denies any swelling or numbness in these extremities. He took all of his home morning medications already. He is a former smoker, no recreational drug use. Hemoglobin stable at 8.8 on admission, Hemoccult stool test positive in the ED. Patient weighed 255 pounds back in May of this year per [facility] records --> His weight today is ~239.4 pounds. Therefore recorded weight loss of 15.6 pounds since May until now. S/p IV Protonix and Pepcid in the ED. Blood consent obtained in the ED as a precautionary measure. Patient does wear CPAP at night for REMBERTO. Allergies Allergy/AdvReac Type Severity Reaction Status Date / Time nickel Allergy Unknown RASH Verified 06/29/23 08:10 tetanus toxoid, adsorbed Allergy Unknown ITCHING Verified 06/29/23 08:10 empagliflozin AdvReac Unknown URINARY Verified 06/29/23 08:10 [From Jardiance] TRACT INFECTION lisinopril AdvReac Unknown Cough Verified 06/29/23 08:10 Home Medications Medication Instructions Recorded Confirmed Type dutasteride 0.5 mg capsule 0.5 mg PO QAM 08/11/18 04/06/24 History ferrous sulfate 325 mg (65 mg 325 mg PO BID 08/11/18 04/06/24 History iron) tablet (iron) losartan 25 mg tablet 50 mg PO QAM 08/11/18 04/06/24 History metformin 1,000 mg tablet 1,000 mg PO BID 08/11/18 04/06/24 History multivitamin 1 tab PO QAM 08/11/18 04/06/24 History rosuvastatin 40 mg tablet 40 mg PO HS 08/11/18 04/06/24 History glimepiride 2 mg tablet 2 mg PO QAM 08/22/20 04/06/24 History tamsulosin 0.4 mg capsule 0.4 mg PO HS 10/01/20 04/06/24 History latanoprost 0.005 % eye drops 1 drp OPB PM 11/02/23 04/06/24 History timolol maleate 0.25 % eye drops 2 drp OPB DAILY 11/02/23 04/06/24 History Tylenol Ex Str Rapid Release 1,000 mg PO DIRECTED PRN Pain 04/06/24 04/06/24 History aspirin 81 mg tablet,delayed 81 mg PO QAM 04/06/24 04/06/24 History release Past Med/Surg History Problem List Symptomatic severe aortic stenosis with normal ejection fraction Symptomatic anemia Acute GI bleeding (Acute) Occult blood in stools Acute on chronic anemia Encounter for pre-operative examination Osteoarthritis of right knee BPH (benign prostatic hyperplasia) (Chronic) REMBERTO on CPAP (Chronic) Obesity (Chronic) Dyslipidemia (Chronic) Diabetes mellitus, type II (Chronic) Anemia (Acute) HTN (hypertension) (Chronic) Medical History History of colon polyps BENIGN Scoliosis Osteoarthritis BPH (benign prostatic hyperplasia) GERD (gastroesophageal reflux disease) Not an issue recently Diabetes mellitus, type 2 Anemia Glaucoma RESOLVED S/P SURGICAL INTERVENTION Hyperlipidemia Sleep apnea CPAP, COMPLIANT. Surgical History History of total right knee replacement (TKR) History of cardiac cath ABNORMAL STRESS TEST IN 2017 - NO STENTS. 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) History of repair of rotator cuff RT/LEFT History of esophagogastroduodenoscopy (EGD) History of colonoscopy History of tooth extraction History of tonsillectomy History of adenoidectomy History of myringotomy Family History Grandmother (Maternal) Family history of diabetes mellitus Mother Family history of esophageal cancer Sister Family history of diabetes mellitus Social History Smoking Status: Former smoker Tobacco Type: Cigarettes Second Hand Exposure: No; Do You Dip or Chew Tobacco: No; Tobacco Cessation Education Requested by Patient: No Hx Alcohol Use: Yes Alcohol type: hard liquor Hx Substance Use: No Preferred Language: Mongolian Communication Ability: Effective 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 Physical Exam Physical Exam: General: Obese M, NAD, sitting up in bed, very pleasant, conversing appropriately. Daughter at bedside. A+Ox3, euthymic affect. HEENT: Normocephalic, atraumatic. Conjunctivae normal, anicteric sclerae. External ear and nose normal, oropharynx normal. Respiratory: Normal respiratory effort, lungs clear to auscultation, no wheeze/rales/rhonchi. No accessory muscle use. Cardiovascular: Regular rate, rhythm, + systolic murmur, normal peripheral pulses, +1-2 RLE edema. Vessels: No JVD. Abdomen/GI: Normal bowel sounds, distended but soft, mild tenderness to deep palpation in the RLQ, no palpable masses. Extremities/Musculoskeletal: No cyanosis or clubbing, extremities motor strength intact, moves all extremities. Neurologic: No overt focal deficits, CN's II-XI not formally tested but appear grossly intact bilaterally. Skin: No rashes, normal color, warm/dry. Results & Data Results & Data Vital Signs (Past 12 Hours) Vital Signs Temp Pulse Pulse Resp BP BP Pulse Ox 04/06/24 11:14 97 04/06/24 11:12 93 H 19 112/74 95 04/06/24 11:11 93 H 04/06/24 10:45 37.0 C 99 H 16 129/58 L 96 O2 Del Method 04/06/24 11:14 Room Air 04/06/24 11:12 Room Air 04/06/24 11:11 04/06/24 10:45 Room Air Laboratory Results Short CBC 04/06/24 Range/Units 11:08 WBC 7.46 (4.8-10.8) K/ul Hgb 8.8 L (14.0-18.0) g/dl Hct 27.0 L (42.0-52.0) % Plt Count 210 (130-400) K/uL BMP 04/06/24 11:08 Sodium 138 Potassium 4.2 Chloride 106 Carbon Dioxide 23 BUN 19 Creatinine 0.80 Glucose 265 H Calcium 9.3 Liver Function 04/06/24 Range/Units 11:08 Total Bilirubin 0.9 (0.2-1.0) mg/dl AST 15 (13-39) U/L ALT 13 (7-52) U/L Alkaline Phosphatase 54 (34-104) U/L Albumin 4.1 (3.4-5.0) gm/dl Medications Administered Discontinued Medications Pantoprazole Sodium (Protonix) 40 mg in 10 mls @ 5 mls/min IV NOW ONE Stop: 04/06/24 11:38 Last Admin: 04/06/24 11:53 Dose: 5 mls/min Documented By: SABINE Famotidine (Pepcid 20mg Iv Push) 20 mg in 5 mls @ 2.5 mls/min IV NOW STA Stop: 04/06/24 11:38 Last Admin: 04/06/24 11:53 Dose: 2.5 mls/min Documented By: SABINE Code Status & VTE Plan Code Status FULL CODE Supervising Physician Co-Signing Physician Notes Attending addendum The patient was seen and examined in medical telemetry unit He has been complaining of progressive weakness for a long time and the weakness has gotten worse for the last 1 week Has been noticing black tarry stool for a long time as well but he has been on iron tablet He felt a lump right lower quadrant without any pain and/or discomfort and apparent blood count showed that he has low hemoglobin Also complaining of shortness of breath with exertion and has had weight loss of about 15 pounds for the last 2 months On examination Lying in bed without any acute distress Hemodynamically stable Chestclear to auscultate bilaterally HeartS1, S2 with a 2/6 ESM over precordium and aortic area Abdomenbenign, soft but distended, ventral hernia and no evidence of any palpable mass right lower quadrant Extremities trace edema bilaterally CNSalert, awake and oriented x 3. No focal sensory or motor deficit appreciated His admission lab, EKG and imaging studies reviewed Progressive shortness of breath with exertion and weakness with black tarry stool for a long time and unintentional weight loss of 15 pounds for the last 2 months Hemoccult is positive and hemoglobin is dropped to 8.8 from 13.0 on 11/02/2023 Need to rule out GI bleed and also possible cause of weight loss- could be secondary to chronic disease including diabetes Has significant which may the cause of presyncope Awaiting results of CT of the abdomen pelvis GI has been consulted for possible EGD/colonoscopy down the line Will need to monitor CBC and give blood transfusion if the hemoglobin drops below 7 Agree with assessment and plan as outlined above by Lubna Kelly PA-C and take the full disposal of the care in the hospital Dr Nadine Ibanez
[2024-04-06] MEDS: FAMOTIDINE 20MG IV PUSH 20 MG/5 ML SYR IV STA (11:53)
[2024-04-06] MEDS: PANTOprazole 40 MG/10 ML SYR IV ONE (11:53)
[2024-04-06] MEDS: OPTIRAY 320 100ml IV ONE (14:21)
[2024-04-06] MEDS ORDERED: MAGNESIUM HYDROXIDE SUSP 30 ML UDC PO PRN (14:37)
[2024-04-06] MEDS ORDERED: GLUCOSE 10 TAB/TUBE PO PRN (14:37)
[2024-04-06] MEDS ORDERED: GLUCOSE 40% GEL 15 GM TUBE PO PRN (14:37)
[2024-04-06] MEDS ORDERED: ACETAMINOPHEN 325 MG TAB PO PRN (14:37)
[2024-04-06] MEDS ORDERED: DEXTROSE 50% 50 ML SYRINGE IV PRN (14:37)
[2024-04-06] MEDS ORDERED: SODIUM CHLORIDE 0.9% 100 ML IV PRN (14:37)
[2024-04-06] MEDS ORDERED: ONDANSETRON INJ 2 MG/ML 2 ML VIAL IV PRN (14:37)
[2024-04-06] MEDS ORDERED: CARBOHYDRATES FOR HYPOGLYCEMIA PO PRN (14:37)
[2024-04-06] MEDS ORDERED: POLYETHYLENE (MIRALAX) 17 GM PACK PO PRN (14:37)
[2024-04-06] MEDS ORDERED: GLUCAGON FOR INJ 1 MG VIAL SQ PRN (14:37)
[2024-04-06] MEDS ORDERED: SODIUM CHLORIDE 0.9% 50 ML IV PRN (14:37)
--- NOTE | 2024-04-06 14:37 | Electrocardiogram Report ---
Test Reason : Blood Pressure : */* mmHG Vent. Rate : 95 BPM Atrial Rate : 95 BPM P-R Int : 176 ms QRS Dur : 96 ms QT Int : 336 ms P-R-T Axes : 51 -39 73 degrees QTcB Int : 422 ms Normal sinus rhythm Left axis deviation Cannot rule out Inferior infarct Abnormal ECG When compared with ECG of 02-Nov-2023 10:07, No significant change was found Confirmed by Randall Schneider ([id number]) on 04/06/2024 2:37:30 PM Referred By: Confirmed By: Randall Schneider
--- NOTE | 2024-04-06 14:47 | Gastrointestinal Consultation ---
Date of Consultation April 06, 2024 Assessment & Plan (1) Occult blood in stools: 68 year old male with history of T2DM, dyslipidemia, diabetic nephropathy, REMBERTO on CPAP, HTN, aortic valve stenosis, severe obesity, BPH with obstruction/lower urinary tract symptoms, benign paroxysmal vertigo, bilateral primary open-angle glaucoma, iron deficiency anemia and depression admitted through the ED w/ symptomatic acute on chronic anemia and heme-positive dark stools, weight loss. He endorses daily ASA and recent NSAIDs use alternating with Tylenol related to some MSK pain. Concern for gastritis, PUD, esophagitis vs other source of occult GI bleeding - Await results of CT - May have liquids today - Trend H&H - Monitor and document GI output - Transfuse PRN per primary team - Stop NSAIDs - Start IV PPI twice daily - Please keep NPO after midnight in anticipation for EGD evaluation Tuesday unless urgently indicated over the . - If EGD is negative, should have a repeat outpatient colonoscopy with his regular GI providers through [facility] I spent a total of 60 minutes on the date of service in review of patient's record, and previously obtained information in person and appropriate medical visit, discussion and education of plan, with patient and/or caregiver, placing orders for tests/referral/procedures as medically necessary and documentation of pertinent clinical information in patient's medical records for their visit today. (2) Acute on chronic anemia: Supervising Physician Co-Signing Physician Notes I examined the patient and reviewed patient's chart , laboratory data and imaging studies. I agree with with assessment and plan of care as suggested by advanced practice provider. Worsening anemia, possible melena. Heme positive stool. Evaluation of anemia, rule out iron deficiency, rule out other causes. For EGD on Tuesday. History of Present Illness Reason for Consultation: heme + stool Requesting Physician: Mukund Ibanez MD Attending Physician: Mukund Ibanze MD History of Present Illness 68 year old male with history of T2DM, dyslipidemia, diabetic nephropathy, REMBERTO on CPAP, HTN, aortic valve stenosis, severe obesity, BPH with obstruction/lower urinary tract symptoms, benign paroxysmal vertigo, bilateral primary open-angle glaucoma, iron deficiency anemia and depression admitted through the ED w/ acute on chronic anemia and worsening fatigue. GI was asked to evaluate for heme positive stools. Notes that he has chronic dark stools while he has been on oral iron. Stools are dark, can be loose or formed. Can go every few days. No BRBPR. Denies abd pain, nausea/vomiting. Tolerating PO intake. Suggests he had breakfast this AM around 0900. Denies reflux/regurgitation. No dysphagia. He does report some weight loss. No fever, chills, CP, SOB. On ASA Has been taking alternating NSAIDs and Tylenol due to arm pain No AC No ETOH/Tobacco Has never had an EGD. Last colon was in Jun 2023 for a positive cologuard test. H&H 8.8 INR 1 BUN 19 CORRECTIVE THERAPY AIDE 0.8 CTAP 2023: pending Colonoscopy 2023: - The examined colon appeared normal. - Sigmoid diverticulosis in the sigmoid colon. - Internal hemorrhoids. - The examination was otherwise normal on direct and retroflexion views. Allergies Allergy/AdvReac Type Severity Reaction Status Date / Time nickel Allergy Unknown RASH Verified 06/29/23 08:10 tetanus toxoid, adsorbed Allergy Unknown ITCHING Verified 06/29/23 08:10 empagliflozin AdvReac Unknown URINARY Verified 06/29/23 08:10 [From Jardiance] TRACT INFECTION lisinopril AdvReac Unknown Cough Verified 06/29/23 08:10 Home Medications Medication Instructions Recorded Confirmed Type dutasteride 0.5 mg capsule 0.5 mg PO QAM 08/11/18 04/06/24 History ferrous sulfate 325 mg (65 mg 325 mg PO BID 08/11/18 04/06/24 History iron) tablet (iron) losartan 25 mg tablet 50 mg PO QAM 08/11/18 04/06/24 History metformin 1,000 mg tablet 1,000 mg PO BID 08/11/18 04/06/24 History multivitamin 1 tab PO QAM 08/11/18 04/06/24 History rosuvastatin 40 mg tablet 40 mg PO HS 08/11/18 04/06/24 History glimepiride 2 mg tablet 2 mg PO QAM 08/22/20 04/06/24 History tamsulosin 0.4 mg capsule 0.4 mg PO HS 10/01/20 04/06/24 History latanoprost 0.005 % eye drops 1 drp OPB PM 11/02/23 04/06/24 History timolol maleate 0.25 % eye drops 2 drp OPB DAILY 11/02/23 04/06/24 History Tylenol Ex Str Rapid Release 1,000 mg PO DIRECTED PRN Pain 04/06/24 04/06/24 History aspirin 81 mg tablet,delayed 81 mg PO QAM 04/06/24 04/06/24 History release Patient History Medical History History of colon polyps BENIGN Scoliosis Osteoarthritis BPH (benign prostatic hyperplasia) GERD (gastroesophageal reflux disease) Not an issue recently Diabetes mellitus, type 2 Anemia Glaucoma RESOLVED S/P SURGICAL INTERVENTION Hyperlipidemia Sleep apnea CPAP, COMPLIANT. Surgical History History of total right knee replacement (TKR) History of cardiac cath ABNORMAL STRESS TEST IN 2017 - NO STENTS. 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) History of repair of rotator cuff RT/LEFT History of esophagogastroduodenoscopy (EGD) History of colonoscopy History of tooth extraction History of tonsillectomy History of adenoidectomy History of myringotomy Family History Grandmother (Maternal) Family history of diabetes mellitus Mother Family history of esophageal cancer Sister Family history of diabetes mellitus Social History Smoking Status: Former smoker Tobacco Type: Cigarettes Second Hand Exposure: No; Do You Dip or Chew Tobacco: No; Tobacco Cessation Education Requested by Patient: No Hx Alcohol Use: Yes Alcohol type: hard liquor Hx Substance Use: No Preferred Language: Greek Communication Ability: Effective Precipitate Washer Required: No Beliefs That Will Affect Care: None marital status: Current Living Situation: Alone Current Living Situation Comment: currently in rehab facility Other Information That Helps Us Care for You: No Feels Safe at Home: Yes Safety Concerns: Feels Safe At This Time Assistive Devices: Glasses Review of Systems Review of Systems: All other findings negative except as noted in HPI. Physical Exam Constitutional: WD/WN, vitals as above Respiratory: normal respiratory effort Cardiovascular: Extremities: no edema Gastrointestinal (Abdomen): Inspection/Auscultation: abdomen normal to inspection Percussion/Palpation: abdomen soft; abdomen nontender, no guarding, abdomen not rigid, no abdominal mass and no ascites Skin: no rashes, warm and dry Results & Data Vital Signs (Past 12 Hours) Vital Signs Temp Pulse Pulse Resp BP BP Pulse Ox 04/06/24 14:37 36.6 C 85 15 129/69 94 04/06/24 14:07 74 22 124/64 98 04/06/24 13:00 81 16 141/80 H 97 04/06/24 11:14 97 04/06/24 11:12 93 H 19 112/74 95 04/06/24 11:11 93 H 04/06/24 10:45 37.0 C 99 H 16 129/58 L 96 O2 Del Method 04/06/24 14:37 Room Air 04/06/24 14:07 04/06/24 13:00 04/06/24 11:14 Room Air 04/06/24 11:12 Room Air 04/06/24 11:11 04/06/24 10:45 Room Air Laboratory Results 04/06/24 04/06/24 04/06/24 Range/Units 11:33 11:09 11:08 WBC 7.46 (4.8-10.8) K/ul RBC 2.67 L (4.70-6.10) M/uL Hgb 8.8 L (14.0-18.0) g/dl Hct 27.0 L (42.0-52.0) % MCV 101.1 H (80.0-100.0) fL MCH 33.0 (25.0-34.0) pg MCHC 32.6 (32.0-36.0) g/dL RDW Std Deviation 56.0 H (36.4-46.3) fL RDW Coeff of Freddie 15.6 H (11.5-14.5) % Plt Count 210 (130-400) K/uL MPV 10.5 (9.4-12.4) fL Immature Gran % (Auto) 0.5 % Neut % (Auto) 78.0 % Lymph % (Auto) 11.4 % [place] % (Auto) 6.3 % Eos % (Auto) 2.7 % Baso % (Auto) 1.1 % Neut # (Auto) 5.82 (1.40-6.50) K/uL Lymph # (Auto) 0.85 L (1.20-3.40) K/uL [place] # (Auto) 0.47 (0.11-0.59) K/uL Eos # (Auto) 0.20 (0.00-0.50) K/uL Baso # (Auto) 0.08 (0.00-0.20) K/uL Immature Gran # (Auto) 0.04 (0.01-0.20) K/uL PT 10.9 (9.0-12.0) Seconds INR 1.0 (0.9-1.1) APTT 23 (21-31) Seconds PTT Ratio 0.9 Sodium 138 (136-145) mmol/L Potassium 4.2 (3.5-5.1) mmol/L Chloride 106 (98-107) mmol/L Carbon Dioxide 23 (21-32) mmol/L Anion Gap 9 (3-11) BUN 19 (6-23) mg/dl Creatinine 0.80 (0.6-1.4) mg/dl Est Cr Clr Drug Dosing 106.0 ml/min eGFR 95.21 BUN/Creatinine Ratio 23.8 H (10-20) Glucose 265 H (70-99(Fasting)) mg/dl Calcium 9.3 (8.6-10.3) mg/dl Total Bilirubin 0.9 (0.2-1.0) mg/dl AST 15 (13-39) U/L ALT 13 (7-52) U/L Alkaline Phosphatase 54 (34-104) U/L Troponin I High Sens 6.8 (0-20) pg/ml Total Protein 6.7 (6.0-8.3) gm/dl Albumin 4.1 (3.4-5.0) gm/dl Globulin 2.6 (2.5-4.0) gm/dl Albumin/Globulin Ratio 1.6 (0.9-2) POC Stool Occult Blood Positive A (Negative) Anaplasma Smear See Comment A. phagocytophilum DNA Pending Babesia Smear See Comment Lyme Disease Screen Negative (Negative) Blood Type Antibody Screen 04/06/24 Range/Units 11:02 WBC (4.8-10.8) K/ul RBC (4.70-6.10) M/uL Hgb (14.0-18.0) g/dl Hct (42.0-52.0) % MCV (80.0-100.0) fL MCH (25.0-34.0) pg MCHC (32.0-36.0) g/dL RDW Std Deviation (36.4-46.3) fL RDW Coeff of Freddie (11.5-14.5) % Plt Count (130-400) K/uL MPV (9.4-12.4) fL Immature Gran % (Auto) % Neut % (Auto) % Lymph % (Auto) % [place] % (Auto) % Eos % (Auto) % Baso % (Auto) % Neut # (Auto) (1.40-6.50) K/uL Lymph # (Auto) (1.20-3.40) K/uL [place] # (Auto) (0.11-0.59) K/uL Eos # (Auto) (0.00-0.50) K/uL Baso # (Auto) (0.00-0.20) K/uL Immature Gran # (Auto) (0.01-0.20) K/uL PT (9.0-12.0) Seconds INR (0.9-1.1) APTT (21-31) Seconds PTT Ratio Sodium (136-145) mmol/L Potassium (3.5-5.1) mmol/L Chloride (98-107) mmol/L Carbon Dioxide (21-32) mmol/L Anion Gap (3-11) BUN (6-23) mg/dl Creatinine (0.6-1.4) mg/dl Est Cr Clr Drug Dosing ml/min eGFR BUN/Creatinine Ratio (10-20) Glucose (70-99(Fasting)) mg/dl Calcium (8.6-10.3) mg/dl Total Bilirubin (0.2-1.0) mg/dl AST (13-39) U/L ALT (7-52) U/L Alkaline Phosphatase (34-104) U/L Troponin I High Sens (0-20) pg/ml Total Protein (6.0-8.3) gm/dl Albumin (3.4-5.0) gm/dl Globulin (2.5-4.0) gm/dl Albumin/Globulin Ratio (0.9-2) POC Stool Occult Blood (Negative) Anaplasma Smear A. phagocytophilum DNA Babesia Smear Lyme Disease Screen (Negative) Blood Type AB Positive Antibody Screen NEGATIVE PG Care Time/CCT Total # of Minutes Spent Total Time Spent with Patient: Total time spent is greater than 50% in coordination of care (as documented) at patient's floor/unit and/or counseling patient: Coding Level of Care Code 23086 INT INP/OBS CARE 2/55MIN Diagnoses Occult blood in stools R19.5 Acute on chronic anemia D64.9
--- NOTE | 2024-04-06 15:23 | CT Scan Report ---
CT OF THE ABDOMEN AND PELVIS WITH CONTRAST CLINICAL HISTORY: GI bleed, RLQ palpable mass. COMPARISON STUDY: None. TECHNIQUE: Following IV administration of 94 mL of Optiray, axial images of the abdomen and pelvis we re obtained from the lung bases to the proximal femurs. Images were reviewed in the axial, sagittal, and coronal planes. IV contrast was administered without complication. Automated exposure control wa s utilized for the study. A dose lowering technique was utilized adhering to the principles of ALARA . Oral contrast was administered. CT DOSE: 1316.74 mGy.cm FINDINGS: No pneumatosis, free air or portal venous gas is present. There are no hepatic lesions. The spleen, adrenal glands, kidneys and pancreas are unremarkable. There is no biliary or pancreatic jaquelin amanda dilatation. The caliber and wall thickness of small and large bowel are normal. No intraluminal c ontrast is identified on this exam to suggest active GI bleed although portions of the bowel are obsc ured by oral contrast. There is colonic diverticulosis without evidence for acute diverticulitis. The appendix is normal. Bladder is mildly distended. There is no lymphadenopathy. No mass, fluid collect ion or enlarged lymph nodes are identified. There are small fat-containing bilateral inguinal hernias . IMPRESSION: 1. No acute process within the abdomen or pelvis. 2. No bowel obstruction. No bowel wall thickening. Normal appendix. 3. Sigmoid diverticulosis. No evidence for acute diverticulitis. 4. No findings to indicate active GI bleed by CT. ACT 112: Negative or not required by law. Electronically signed by: Issa Pereira M.D. 04/06/2024 3:21 PM
--- NOTE | 2024-04-06 15:44 | Cardiology Consultation ---
Date of Consultation April 06, 2024 Assessment & Plan (1) Symptomatic anemia: (2) Occult blood in stools: (3) Acute on chronic anemia: (4) Symptomatic severe aortic stenosis with normal ejection fraction: (5) REMBERTO on CPAP: (6) Dyslipidemia: (7) Diabetes mellitus, type II: (8) HTN (hypertension): Plan Symptomatic anemia. Occult blood in stool. Patient evaluated by GI. EGD planned for Tuesday unless urgently indicated over the weekend. If EGD negative, outpatient colonoscopy planned. Possibility of AVMs and Heyde Syndrome noted and discussed. No overt cardiac contraindications to the above GI evaluation which should transpire in the hospital setting. Severe symptomatic aortic valve stenosis. Recommend cardiology follow-up shortly after discharge to initiate outpatient aortic valve replacement workup. Patient will require complete dental evaluation, bilateral carotid duplex (? Bilateral carotid bruits versus transmitted systolic murmur), repeat diagnostic cardiac catheterization, and referral to the [facility] as discussed. Shortness of breath. Suspect secondary to the above however patient is a reformed longstanding cigarette user who notes recent unplanned weight loss and occasional night sweats. Chest x-ray pending. Consider further evaluation - CT scan of the chest, PFT's, outpatient pulmonary evaluation. Supervising Physician Co-Signing Physician Notes Attending attestation: Case reviewed with the advanced practitioner. I have personally performed a history and physical examination on the patient. I have reviewed the advanced practitioner's documentation on the date of service referenced in note, and I agree with, and take responsibility for the plan of care. Patient's daughter, Mattie, present at the bedside during my assessment. Patient notes a syncopal episode while doing yard work in the setting of heat, volume depletion including drinking beer, back in October. Patient hemodynamically stable to allow for endoscopy/colonoscopy, and I think it is prudent to perform this as he would be committed to antiplatelet therapy after surgical AVR or TAVR. Heyde syndrome a possibility which constitutes gastrointestinal bleeding from angiodysplasia in the presence of aortic stenosis. Conor Allen DO History of Present Illness Reason for Consultation: Severe aortic stenosis, presyncope with exertion [facility] Dr. Guerra, Lubna Carter Attending Physician: Dr. Mukund Ibanez MD History of Present Illness Daughter and grandson Jeremy at bedside. Mr. Rafael Cantu is a 68-year-old male who describes experiencing fatigue and exertional dyspnea for many months, becoming extreme over the past 3 to 4 days. At the urging of his daughter he presented to [facility] in [place] yesterday where laboratory work revealed anemia with a hemoglobin of 8.9 g/dL and a elevated troponin for which she was called today and referred to the emergency room for further evaluation and treatment. Patient denies activity related chest pain or discomfort. He experiences chest discomfort intermittently at nighttime, aided by taking as needed aspirin. Shortness of breath now precludes him from ambulating through the grocery store and is associated with dizziness and near syncope. No true syncope. No palpitations. No cough or chest congestion. No orthopnea or PND. Lower extremity peripheral edema is described as enough to see where the sock was at the end of the day. No recent colds. No fevers. No chills. No dysphagia. No epistaxis. No hemoptysis. No hematuria. Patient describes a longstanding history of iron deficiency anemia, chronically prescribed oral iron replacement therapy. No recent change in bowel habits. Colonoscopy in June 2023 revealed sigmoid diverticulosis and internal hemorrhoids only. He reports a unplanned weight loss of 15 pounds over the last 6 months. Hemoglobin 8.8 g/dL on presentation. Stool occult positive. EKG on presentation to the ER revealed normal sinus rhythm at 95 bpm with left axis deviation. Possible old inferior infarct. QTc 422 ms. When compared to prior available tracings, there is no significant change. High-sensitivity troponin I 6.8 pg/mL. Resting echocardiography obtained earlier today demonstrated severe calcific aortic valve stenosis with preserved LV systolic function Past Medical and Surgical History Aortic valve stenosis Diagnostic cardiac catheterization in 2016, following abnormal stress testing, revealed mild nonobstructive coronary artery disease Hypertension Dyslipidemia Type 2 diabetes mellitus with nephropathy Longstanding iron deficiency anemia Obesity Obstructive sleep apnea, CPAP therapy BPH with LUTS Vertigo Glaucoma Depression GERD Osteoarthritis Right total knee replacement Cataract extraction ORIF left wrist Status post rotator cuff repair Tonsillectomy and adenoidectomy Myringotomy Family History: Mother was a smoker, dying with throat cancer at the age of 56. Father in his late 80s, Parkinson's disease. Sister is alive at 74 with diabetes mellitus. Social History: Ex-smoker having quit in May 2019 after smoking up to 5 packs/day. No smokeless tobacco. Prior significant alcohol intake, now with occasional use. No illegal drug use. 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 Allergies Allergy/AdvReac Type Severity Reaction Status Date / Time nickel Allergy Unknown RASH Verified 06/29/23 08:10 tetanus toxoid, adsorbed Allergy Unknown ITCHING Verified 06/29/23 08:10 empagliflozin AdvReac Unknown URINARY Verified 06/29/23 08:10 [From Jardiance] TRACT INFECTION lisinopril AdvReac Unknown Cough Verified 06/29/23 08:10 Home Medications Medication Instructions Recorded Confirmed Type dutasteride 0.5 mg capsule 0.5 mg PO QAM 08/11/18 04/06/24 History ferrous sulfate 325 mg (65 mg 325 mg PO BID 08/11/18 04/06/24 History iron) tablet (iron) losartan 25 mg tablet 50 mg PO QAM 08/11/18 04/06/24 History metformin 1,000 mg tablet 1,000 mg PO BID 08/11/18 04/06/24 History multivitamin 1 tab PO QAM 08/11/18 04/06/24 History rosuvastatin 40 mg tablet 40 mg PO HS 08/11/18 04/06/24 History glimepiride 2 mg tablet 2 mg PO QAM 08/22/20 04/06/24 History tamsulosin 0.4 mg capsule 0.4 mg PO HS 10/01/20 04/06/24 History latanoprost 0.005 % eye drops 1 drp OPB PM 11/02/23 04/06/24 History timolol maleate 0.25 % eye drops 2 drp OPB DAILY 11/02/23 04/06/24 History Tylenol Ex Str Rapid Release 1,000 mg PO DIRECTED PRN Pain 04/06/24 04/06/24 History aspirin 81 mg tablet,delayed 81 mg PO QAM 04/06/24 04/06/24 History release Patient History Medical History History of colon polyps BENIGN Scoliosis Osteoarthritis BPH (benign prostatic hyperplasia) GERD (gastroesophageal reflux disease) Not an issue recently Diabetes mellitus, type 2 Anemia Glaucoma RESOLVED S/P SURGICAL INTERVENTION Hyperlipidemia Sleep apnea CPAP, COMPLIANT. Surgical History History of total right knee replacement (TKR) History of cardiac cath ABNORMAL STRESS TEST IN 2017 - NO STENTS. 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) History of repair of rotator cuff RT/LEFT History of esophagogastroduodenoscopy (EGD) History of colonoscopy History of tooth extraction History of tonsillectomy History of adenoidectomy History of myringotomy Family History Grandmother (Maternal) Family history of diabetes mellitus Mother Family history of esophageal cancer Sister Family history of diabetes mellitus Social History Smoking Status: Former smoker Tobacco Type: Cigarettes Second Hand Exposure: No; Do You Dip or Chew Tobacco: No; Tobacco Cessation Education Requested by Patient: No Hx Alcohol Use: Yes Alcohol type: hard liquor Hx Substance Use: No Preferred Language: Macedonian Communication Ability: Effective Conductor Symphonic Orchestra Required: No Beliefs That Will Affect Care: None marital status: Current Living Situation: Alone Current Living Situation Comment: currently in rehab facility Other Information That Helps Us Care for You: No Feels Safe at Home: Yes Safety Concerns: Feels Safe At This Time Assistive Devices: Glasses Review of Systems Review of Systems: Complete review of systems is otherwise as stated above, negative, or noncontributory. Physical Exam Physical Exam: General: A&Ox3. NAD. HENT: Normocephalic. Atraumatic. Eyes: PER. Conjunctiva pink, sclera clear. Neck: Transmitted systolic murmur versus bilateral carotid bruits. No overt JVD. Heart: Regular at 90 bpm. Grade III/ systolic ejection murmur. No diastolic murmur. No rub. Lungs: Clear to auscultation. No wheeze. No rales. No rhonchi. Abdomen: +BS. Soft. Nontender. No masses or organomegaly. Extremities: Minimal edema. No clubbing. No cyanosis. Limited neurological examination is without focal deficits. Pulses: Posterior tibial=1/4. Results & Data Vital Signs (Past 12 Hours) Vital Signs Temp Pulse Pulse Resp BP BP Pulse Ox 04/06/24 14:37 36.6 C 85 15 129/69 94 04/06/24 14:07 74 22 124/64 98 04/06/24 13:00 81 16 141/80 H 97 04/06/24 11:14 97 04/06/24 11:12 93 H 19 112/74 95 04/06/24 11:11 93 H 04/06/24 10:45 37.0 C 99 H 16 129/58 L 96 O2 Del Method 04/06/24 14:37 Room Air 04/06/24 14:07 04/06/24 13:00 04/06/24 11:14 Room Air 04/06/24 11:12 Room Air 04/06/24 11:11 04/06/24 10:45 Room Air Laboratory Results Cardiac Enzymes 04/06/24 Range/Units 11:08 AST 15 (13-39) U/L Troponin I High Sens 6.8 (0-20) pg/ml Coagulation 04/06/24 Range/Units 11:08 PT 10.9 (9.0-12.0) Seconds APTT 23 (21-31) Seconds CBC 04/06/24 Range/Units 11:08 WBC 7.46 (4.8-10.8) K/ul RBC 2.67 L (4.70-6.10) M/uL Hgb 8.8 L (14.0-18.0) g/dl Hct 27.0 L (42.0-52.0) % Plt Count 210 (130-400) K/uL Neut # (Auto) 5.82 (1.40-6.50) K/uL Lymph # (Auto) 0.85 L (1.20-3.40) K/uL [place] # (Auto) 0.47 (0.11-0.59) K/uL Eos # (Auto) 0.20 (0.00-0.50) K/uL Baso # (Auto) 0.08 (0.00-0.20) K/uL Comprehensive Metabolic Panel 04/06/24 Range/Units 11:08 Sodium 138 (136-145) mmol/L Potassium 4.2 (3.5-5.1) mmol/L Chloride 106 (98-107) mmol/L Carbon Dioxide 23 (21-32) mmol/L BUN 19 (6-23) mg/dl Creatinine 0.80 (0.6-1.4) mg/dl Glucose 265 H (70-99(Fasting)) mg/dl Calcium 9.3 (8.6-10.3) mg/dl AST 15 (13-39) U/L ALT 13 (7-52) U/L Alkaline Phosphatase 54 (34-104) U/L Total Protein 6.7 (6.0-8.3) gm/dl Albumin 4.1 (3.4-5.0) gm/dl Intake and Output 04/06/24 04/06/24 04/06/24 06:59 14:59 22:59 Other: Weight 108.6 kg Weight Measurement Method Standing Scale Patient Weight 04/07/24 06:59 Weight 108.6 kg Diagnostic Findings Telemetry: Sinus rhythm in the 90s, occasional PVC April 06, 2024 TTE ([facility], Dr. Allen): Mild concentric LVH. Normal LV wall motion. Normal LV systolic function. EF 55 to 60%. Mildly dilated left atrium. Severely calcified aortic valve. Severe aortic valve stenosis. Peak velocity across the aortic valve 4 m/s, mean gradient 40 mmHg, aortic valve area 1 cm. Grade 1 diastolic dysfunction. Aortic root normal in diameter. Proximal ascending aorta not well-visualized.
--- NOTE | 2024-04-06 16:18 | XRay Report ---
EXAM: Radiograph of the Chest 1 View INDICATION: Shortness of breath increasing over the last few days. TECHNIQUE: Frontal view of the chest. COMPARISON: 11/02/2023 FINDINGS: Lungs and pleural spaces: Stable chronic interstitial scarring. No consolidation or pulmonary edema. No pleural effusion or pneumothorax. Heart: Stable prominent cardiac shadow accentuated by technique. Mediastinum: Normal contour. Bones/joints: No fracture, erosion or dislocation. Soft tissues: No abnormality noted. No radiopaque foreign body noted. Vasculature: Stable ectatic aorta. Upper abdomen: No abnormality noted. IMPRESSION: Stable chronic changes. No acute disease. ACT 112: Negative or not required by law. Electronically signed by Yashira Montiel 04-06-2024 4:16 PM
--- NOTE | 2024-04-06 17:16 | Communication Note ---
Date of Service: April 06, 2024 Reviewed GI consultation note. May have liquid diet, continue to trend H&H. Will transfuse if hemoglobin drops <7. Blood consent already obtained. Type/cross already ordered for 2 units of PRBCs in anticipation of possible worsening anemia. Planning for EGD evaluation on Tuesday unless urgently indicated over the weekend. CTAP unremarkable, revealed no findings indicative of an active GI bleed. Cardiology was consulted on this patient as his echo revealed severe aortic stenosis --> "Recommend cardiology follow-up shortly after discharge to initiate outpatient aortic valve replacement workup. Patient will require complete dental evaluation, bilateral carotid duplex (? bilateral carotid bruits vs transmitted systolic murmur), repeat diagnostic cardiac catheterization, and referral to the [facility]." He has been experiencing SOB with exertion as mentioned in the H&P (likely sec ondary to above), however he would benefit from outpatient pulmonary evaluation given his smoking history. CXR unremarkable. Attending addendum: The chart reviewed and agree with the above statement. Dr Nadine Ibanez
[2024-04-06] MEDS: INSULIN ASPART PER UNIT CHARGE SC SCH (17:51)
[2024-04-06 19:06] LABS: Hematocrit (blood only) 27.8 % (42.0-52.0); Hemoglobin 8.9 g/dl (14.0-18.0)
[2024-04-06] MEDS: ROSUVASTATIN CALCIUM 20 MG TAB PO SCH (20:05)
[2024-04-06] MEDS: PANTOprazole 40 MG/10 ML SYR IV SCH (20:05)
[2024-04-06] MEDS: LATANOPROST 0.005% OP SOLN 2.5 ML BTL OPB SCH (20:05)
[2024-04-06] MEDS: TAMSULOSIN HCL 0.4 MG CAP PO SCH (20:06)
[2024-04-06 23:16] LABS: Hematocrit (blood only) 25.3 % (42.0-52.0); Hemoglobin 8.3 g/dl (14.0-18.0)
[2024-04-07 06:09] LABS: Hematocrit (blood only) 28.2 % (42.0-52.0); Hemoglobin 8.8 g/dl (14.0-18.0); Mean Corpuscular Hemoglobin 31.9 pg (25.0-34.0); Mean Corpuscular Hgb Conc 31.2 g/dL (32.0-36.0); Mean Corpuscular Volume 102.2 fL (80.0-100.0); Mean Platelet Volume 10.7 fL (9.4-12.4); Platelet Count 214 K/uL (130-400); RDW Coefficient of Variation 15.8 % (11.5-14.5); RDW Standard Deviation 57.7 fL (36.4-46.3); Red Blood Count 2.76 M/uL (4.70-6.10); White Blood Count 7.18 K/ul (4.8-10.8)
[2024-04-07 06:29] LABS: BUN Creatinine Ratio 17.4 (10-20); Calcium 9.3 mg/dl (8.6-10.3); Creatinine Clr Calc Pharmacy 120.8 ml/min; Phosphorus 4.2 mg/dl (2.5-4.9); Potassium 4.2 mmol/L (3.5-5.1)
[2024-04-07 06:48] LABS: Ferritin 10.4 ng/ml (8-388)
[2024-04-07 07:06] LABS: Folate (Folic Acid),Ser orPlas > 22.30 ng/ml (>5.38)
[2024-04-07 07:07] LABS: Vitamin B12 390 pg/ml (180-914)
[2024-04-07 07:19] LABS: Estimated Average Glucose 80 mg/dl; Hemoglobin A1C 4.4 % (4.5-5.6)
[2024-04-07] MEDS: FINASTERIDE 5 MG TAB PO SCH (07:53)
[2024-04-07] MEDS: LOSARTAN POTASSIUM 50 MG TAB PO SCH (07:53)
[2024-04-07] MEDS: MULTIVITAMIN TAB PO SCH (07:53)
--- NOTE | 2024-04-07 08:10 | Hospitalist Progress Note ---
Date of Service April 07, 2024 Assessment & Plan (1) Acute on chronic anemia: (2) Occult blood in stools: Plan 68y/o M with DM type II, dyslipidemia, diabetic nephropathy, REMBERTO on CPAP, HTN, aortic valve stenosis, severe obesity, BPH with obstruction/lower urinary tract symptoms, BPPV, bilateral primary open-angle glaucoma, iron deficiency anemia and depression who presented to the ED via referral from his PCP due to acute on chronic anemia and worsening fatigue. Symptomatic Acute on Chronic Anemia Hemoccult Positive, Likely Upper GI Bleed: Hgb 8.8 on admission, baseline Hgb ~11-13 per chart review. Hemoccult stool positive in the ED. (but pt is also on iron pills) CT A/P- unremarkable, revealed no findings indicative of an active GI bleed. + unintentional weight loss. Most recent colonoscopy performed 06/29/2023 -> Normal appearance of the colon, multiple small and large-mouthed diverticula in the sigmoid colon, internal hemorrhoids. Blood consent obtained in the ED already, type/cross for 2 units of PRBCs as a precaution - on hold for now pending Hgb trend. GI consulted - plan for EGD on Tuesday unless urgently indicated over the weekend. NPO after MN in anticipation for EGD on Tuesday If EGD is negative, should have a repeat outpatient colonoscopy with his regular GI providers through [facility] Tick borne panel pending. Anemia panel - folate , B12 wnl, transf. sat 6% -> will give IV iron (venofer) S/p 20mg IV Pepcid, 40mg IV Protonix in the ED. Continue IV Protonix 40mg BID. Trend H/H. Hgb stable 8.8 on 04/07 Hold home ASA, and oral iron supplementation for now. Chest Pressure, Recent Presyncopal Events: Severe Patient with recent episodes of chest pressure and presyncopal events with exertion. Known aortic valve stenosis, + systolic murmur on exam. Troponin x 1 negative, admitting EKG with no overt evidence of ischemia. Echocardiogram obtained showing severe -> cardiology consulted Per cardiology: EGD planned for Tuesday unless urgently indicated over the weekend. If EGD negative, outpatient colonoscopy planned. Possibility of AVMs and Heyde Sy ndrome noted and discussed. No overt cardiac contraindications to the above GI evaluation which should transpire in the hospital setting. Severe symptomatic aortic valve stenosis. Recommend cardiology follow-up shortly after discharge to initiate outpatient aortic valve replacement workup. Patient will require complete dental evaluation, bilateral carotid duplex (? Bilateral carotid bruits versus transmitted systolic murmur), repeat diagnostic cardiac catheterization, and referral to the [facility] as discussed. Shortness of breath. Suspect secondary to the above however patient is a reformed longstanding cigarette user who notes recent unplanned weight loss and occasional night sweats. Chest x-ray unremarkable. Consider further evaluation - CT scan of the chest, PFT's, outpatient pulmonary evaluation. DM Type II: Hold home agents, SSI regimen while inpatient. BSG checks ACHS. Most recent Hgb A1c was 4.9% on 04/05/2024. Other Chronic Medical Conditions: Dyslipidemia/BPH/Glaucoma/HTN --> Can continue home medications for these specific conditions. Continue CPAP HS for REMBERTO. DVT Prophylaxis: SCDs/TEDs for now ISO above. Code Status: FULL CODE PCP: Declan Dejesus MD Disposition: Med/Tele Admission and Anticipated Discharge Date Admission Date: April 06, 2024 Subjective Pt seen in follow up of anemia, poss. GI bleed, severe GI and cardiology consulted Hgb stable this AM trans. sat 6% - will give IV iron Plan for EGD on Tuesday Currently pt is sitting up in bed in NAD Denies any abd. pain no fever, chills, chest pain or shortness of breath at rest Review of Systems Review of Systems: All systems reviewed & are unremarkable except as noted in Subjective Physical Exam Physical Exam: General: Obese M, NAD HEENT: Normocephalic, atraumatic. Conjunctivae normal, anicteric sclerae. External ear and nose normal Respiratory: Normal respiratory effort, lungs clear to auscultation, no wheeze/rales/rhonchi. Cardiovascular: Regular rate, rhythm, + systolic murmur Abdomen/GI: Normal bowel sounds, soft, mild distention Extremities/Musculoskeletal: extremities motor strength intact, moves all extremities. Neurologic: awake, alert, oriented, answers appropriately, speech fluent, moves extremities Skin: warm/dry. Results & Data Results & Data Vital Signs (Past 12 Hours) Vital Signs Temp Pulse Pulse Resp BP Pulse Ox O2 Del Method 04/07/24 07:43 36.6 C 74 18 127/65 96 Room Air 04/07/24 07:26 76 04/07/24 04:03 36.9 C 80 20 123/74 95 Room Air 04/07/24 03:02 77 24 95 04/06/24 23:54 36.5 C 78 20 108/69 96 CPAP 04/06/24 23:02 71 04/06/24 21:00 75 22 95 FiO2 04/07/24 07:43 04/07/24 07:26 04/07/24 04:03 04/07/24 03:02 04/06/24 23:54 04/06/24 23:02 04/06/24 21:00 21 Laboratory Results 04/07/24 04/06/24 04/06/24 Range/Units 05:24 22:51 20:12 WBC 7.18 (4.8-10.8) K/ul RBC 2.76 L (4.70-6.10) M/uL Hgb 8.8 L 8.3 L (14.0-18.0) g/dl Hct 28.2 L 25.3 L (42.0-52.0) % MCV 102.2 H (80.0-100.0) fL MCH 31.9 (25.0-34.0) pg MCHC 31.2 L (32.0-36.0) g/dL RDW Std Deviation 57.7 H (36.4-46.3) fL RDW Coeff of Freddie 15.8 H (11.5-14.5) % Plt Count 214 (130-400) K/uL MPV 10.7 (9.4-12.4) fL Immature Gran % (Auto) % Neut % (Auto) % Lymph % (Auto) % Lyon % (Auto) % Eos % (Auto) % Baso % (Auto) % Neut # (Auto) (1.40-6.50) K/uL Lymph # (Auto) (1.20-3.40) K/uL Lyon # (Auto) (0.11-0.59) K/uL Eos # (Auto) (0.00-0.50) K/uL Baso # (Auto) (0.00-0.20) K/uL Immature Gran # (Auto) (0.01-0.20) K/uL PT (9.0-12.0) Seconds INR (0.9-1.1) APTT (21-31) Seconds PTT Ratio Sodium 141 (136-145) mmol/L Potassium 4.2 (3.5-5.1) mmol/L Chloride 109 H (98-107) mmol/L Carbon Dioxide 25 (21-32) mmol/L Anion Gap 7 (3-11) BUN 12 (6-23) mg/dl Creatinine 0.69 (0.6-1.4) mg/dl Est Cr Clr Drug Dosing 120.8 ml/min eGFR 99.56 BUN/Creatinine Ratio 17.4 (10-20) Glucose 169 H (70-99(Fasting)) mg/dl POC Glucose 301 H* (70-99) mg/dl Estimat Average Glucose 80 mg/dl Hemoglobin A1c 4.4 L (4.5-5.6) % Calcium 9.3 (8.6-10.3) mg/dl Phosphorus 4.2 (2.5-4.9) mg/dl Magnesium 2.0 (1.7-2.4) mg/dl Iron 25 L (35-175) mcg/dl TIBC 420 (250-450) mcg/dl Unsaturated IBC 395 H (155-355) mcg/dl Transferrin % Sat 6 L (20-50) % Ferritin 10.4 (8-388) ng/ml Total Bilirubin (0.2-1.0) mg/dl AST (13-39) U/L ALT (7-52) U/L Alkaline Phosphatase (34-104) U/L Troponin I High Sens (0-20) pg/ml Total Protein (6.0-8.3) gm/dl Albumin (3.4-5.0) gm/dl Globulin (2.5-4.0) gm/dl Albumin/Globulin Ratio (0.9-2) Vitamin B12 390 (180-914) pg/ml Folate > 22.30 (>5.38) ng/ml POC Stool Occult Blood (Negative) Anaplasma Smear A. phagocytophilum DNA Babesia Smear Babesia microti DNA PCR Pending Lyme Disease Screen (Negative) Ehrlichia DNA (PCR) Pending Q Fever Phase I IgG Ab Pending Q Fever Phase I IgM Ab Pending Q Fever Phase II IgG Ab Pending Q Fever Phase II IgM Ab Pending Rickettsia IgG Ab Pending Rickettsia IgM Ab Pending Typhus Fever IgG Ab Pending Typhus Fever IgM Ab Pending Blood Type Antibody Screen 04/06/24 04/06/24 04/06/24 Range/Units 18:34 17:05 11:33 WBC (4.8-10.8) K/ul RBC (4.70-6.10) M/uL Hgb 8.9 L (14.0-18.0) g/dl Hct 27.8 L (42.0-52.0) % MCV (80.0-100.0) fL MCH (25.0-34.0) pg MCHC (32.0-36.0) g/dL RDW Std Deviation (36.4-46.3) fL RDW Coeff of Freddie (11.5-14.5) % Plt Count (130-400) K/uL MPV (9.4-12.4) fL Immature Gran % (Auto) % Neut % (Auto) % Lymph % (Auto) % Lyon % (Auto) % Eos % (Auto) % Baso % (Auto) % Neut # (Auto) (1.40-6.50) K/uL Lymph # (Auto) (1.20-3.40) K/uL Lyon # (Auto) (0.11-0.59) K/uL Eos # (Auto) (0.00-0.50) K/uL Baso # (Auto) (0.00-0.20) K/uL Immature Gran # (Auto) (0.01-0.20) K/uL PT (9.0-12.0) Seconds INR (0.9-1.1) APTT (21-31) Seconds PTT Ratio Sodium (136-145) mmol/L Potassium (3.5-5.1) mmol/L Chloride (98-107) mmol/L Carbon Dioxide (21-32) mmol/L Anion Gap (3-11) BUN (6-23) mg/dl Creatinine (0.6-1.4) mg/dl Est Cr Clr Drug Dosing ml/min eGFR BUN/Creatinine Ratio (10-20) Glucose (70-99(Fasting)) mg/dl POC Glucose 161 H (70-99) mg/dl Estimat Average Glucose mg/dl Hemoglobin A1c (4.5-5.6) % Calcium (8.6-10.3) mg/dl Phosphorus (2.5-4.9) mg/dl Magnesium (1.7-2.4) mg/dl Iron (35-175) mcg/dl TIBC (250-450) mcg/dl Unsaturated IBC (155-355) mcg/dl Transferrin % Sat (20-50) % Ferritin (8-388) ng/ml Total Bilirubin (0.2-1.0) mg/dl AST (13-39) U/L ALT (7-52) U/L Alkaline Phosphatase (34-104) U/L Troponin I High Sens (0-20) pg/ml Total Protein (6.0-8.3) gm/dl Albumin (3.4-5.0) gm/dl Globulin (2.5-4.0) gm/dl Albumin/Globulin Ratio (0.9-2) Vitamin B12 (180-914) pg/ml Folate (>5.38) ng/ml POC Stool Occult Blood Positive A (Negative) Anaplasma Smear A. phagocytophilum DNA Babesia Smear Babesia microti DNA PCR Lyme Disease Screen (Negative) Ehrlichia DNA (PCR) Q Fever Phase I IgG Ab Q Fever Phase I IgM Ab Q Fever Phase II IgG Ab Q Fever Phase II IgM Ab Rickettsia IgG Ab Rickettsia IgM Ab Typhus Fever IgG Ab Typhus Fever IgM Ab Blood Type Antibody Screen 04/06/24 04/06/24 04/06/24 Range/Units 11:09 11:08 11:02 WBC 7.46 (4.8-10.8) K/ul RBC 2.67 L (4.70-6.10) M/uL Hgb 8.8 L (14.0-18.0) g/dl Hct 27.0 L (42.0-52.0) % MCV 101.1 H (80.0-100.0) fL MCH 33.0 (25.0-34.0) pg MCHC 32.6 (32.0-36.0) g/dL RDW Std Deviation 56.0 H (36.4-46.3) fL RDW Coeff of Freddie 15.6 H (11.5-14.5) % Plt Count 210 (130-400) K/uL MPV 10.5 (9.4-12.4) fL Immature Gran % (Auto) 0.5 % Neut % (Auto) 78.0 % Lymph % (Auto) 11.4 % Lyon % (Auto) 6.3 % Eos % (Auto) 2.7 % Baso % (Auto) 1.1 % Neut # (Auto) 5.82 (1.40-6.50) K/uL Lymph # (Auto) 0.85 L (1.20-3.40) K/uL Lyon # (Auto) 0.47 (0.11-0.59) K/uL Eos # (Auto) 0.20 (0.00-0.50) K/uL Baso # (Auto) 0.08 (0.00-0.20) K/uL Immature Gran # (Auto) 0.04 (0.01-0.20) K/uL PT 10.9 (9.0-12.0) Seconds INR 1.0 (0.9-1.1) APTT 23 (21-31) Seconds PTT Ratio 0.9 Sodium 138 (136-145) mmol/L Potassium 4.2 (3.5-5.1) mmol/L Chloride 106 (98-107) mmol/L Carbon Dioxide 23 (21-32) mmol/L Anion Gap 9 (3-11) BUN 19 (6-23) mg/dl Creatinine 0.80 (0.6-1.4) mg/dl Est Cr Clr Drug Dosing 106.0 ml/min eGFR 95.21 BUN/Creatinine Ratio 23.8 H (10-20) Glucose 265 H (70-99(Fasting)) mg/dl POC Glucose (70-99) mg/dl Estimat Average Glucose mg/dl Hemoglobin A1c (4.5-5.6) % Calcium 9.3 (8.6-10.3) mg/dl Phosphorus (2.5-4.9) mg/dl Magnesium (1.7-2.4) mg/dl Iron (35-175) mcg/dl TIBC (250-450) mcg/dl Unsaturated IBC (155-355) mcg/dl Transferrin % Sat (20-50) % Ferritin (8-388) ng/ml Total Bilirubin 0.9 (0.2-1.0) mg/dl AST 15 (13-39) U/L ALT 13 (7-52) U/L Alkaline Phosphatase 54 (34-104) U/L Troponin I High Sens 6.8 (0-20) pg/ml Total Protein 6.7 (6.0-8.3) gm/dl Albumin 4.1 (3.4-5.0) gm/dl Globulin 2.6 (2.5-4.0) gm/dl Albumin/Globulin Ratio 1.6 (0.9-2) Vitamin B12 (180-914) pg/ml Folate (>5.38) ng/ml POC Stool Occult Blood (Negative) Anaplasma Smear See Comment A. phagocytophilum DNA Pending Babesia Smear See Comment Babesia microti DNA PCR Lyme Disease Screen Negative (Negative) Ehrlichia DNA (PCR) Q Fever Phase I IgG Ab Q Fever Phase I IgM Ab Q Fever Phase II IgG Ab Q Fever Phase II IgM Ab Rickettsia IgG Ab Rickettsia IgM Ab Typhus Fever IgG Ab Typhus Fever IgM Ab Blood Type AB Positive Antibody Screen NEGATIVE Medications Administered Current Inpatient Medications Acetaminophen (Acetaminophen 325 Mg Tab) 650 mg PO Q4H PRN PRN Reason: Pain or Fever Stop: 05/06/24 14:36 Dextrose (Dextrose 50% 50 Ml Syringe) 25 - 50 ml IV UD PRN; Protocol PRN Reason: Hypoglycemia Protocol Stop: 05/06/24 14:36 Finasteride (Finasteride 5 Mg Tab) 5 mg PO QAM DANYEL; Protocol Stop: 05/07/24 08:59 Last Admin: 04/07/24 07:53 Dose: 5 mg Glucagon (Glucagon For Inj 1 Mg Vial) 1 mg SQ UD PRN; Protocol PRN Reason: Hypoglycemia Protocol Stop: 05/06/24 14:36 Glucose (Glucose 40% Gel 15 Gm Tube) 15 - 30 gm PO UD PRN; Protocol PRN Reason: Hypoglycemia Protocol Stop: 05/06/24 14:36 Glucose (Glucose 10 Tab/Tube) 4 - 8 tab PO UD PRN; Protocol PRN Reason: Hypoglycemia Protocol Stop: 05/06/24 14:36 Pantoprazole Sodium (Protonix) 40 mg in 10 mls @ 5 mls/min IV BID DANYEL Stop: 05/06/24 20:59 Last Admin: 04/07/24 07:53 Dose: 5 mls/min Insulin Aspart (Insulin Aspart Per Unit Charge) 0 units SC ACHS DANYEL Stop: 05/06/24 16:29 Last Admin: 04/06/24 20:15 Dose: 8 units Latanoprost (Latanoprost 0.005% Op Soln 2.5 Ml Btl) 1 drops OPB PM DANYEL Stop: 05/06/24 20:59 Last Admin: 04/06/24 20:05 Dose: 1 drops Losartan Potassium (Losartan Potassium 50 Mg Tab) 50 mg PO QAM DANYEL Stop: 05/07/24 08:59 Last Admin: 04/07/24 07:53 Dose: 50 mg Magnesium Hydroxide (Magnesium Hydroxide Susp 30 Ml Udc) 30 ml PO Q12H PRN PRN Reason: Constipation Stop: 05/06/24 14:36 Miscellaneous (Carbohydrates For Hypoglycemia ) 15 - 30 gm PO UD PRN PRN Reason: Hypoglycemia Protocol Stop: 05/06/24 14:36 Multivitamins (Multivitamin Tab) 1 tab PO QAM DANYEL Stop: 05/07/24 08:59 Last Admin: 04/07/24 07:53 Dose: 1 tab Ondansetron HCl (Ondansetron Inj 2 Mg/Ml 2 Ml Vial) 4 mg IV Q6H PRN PRN Reason: Nausea Stop: 05/06/24 14:36 Polyethylene Glycol (Polyethylene (Miralax) 17 Gm Pack) 17 gm PO DAILY PRN PRN Reason: Constipation Stop: 05/06/24 14:36 Rosuvastatin Calcium (Rosuvastatin Calcium 20 Mg Tab) 40 mg PO HS DANYEL Stop: 05/06/24 20:59 Last Admin: 04/06/24 20:05 Dose: 40 mg Tamsulosin HCl (Tamsulosin Hcl 0.4 Mg Cap) 0.4 mg PO HS DANYEL Stop: 05/06/24 20:59 Last Admin: 04/06/24 20:06 Dose: 0.4 mg Timolol Maleate (Timolol Maleate 0.25% Op Soln 5 Ml Btl) 2 drops OP DAILY DANYEL Stop: 05/07/24 08:59
[2024-04-07] MEDS: TIMOLOL MALEATE 0.25% OP SOLN 5 ML BTL OP SCH (08:45)
[2024-04-07] MEDS: IRON SUCROSE 300 MG in SODIUM CHLORIDE 0.9% 250 ML IV SCH (09:06)
--- OUTSIDE RECORDS SUMMARY | 2024-04-07 09:28 | External Medical Summary ---
Author Name Unknown Address Unknown Organization [id number]:[facility] [place] - [address] [place] [address] Laboratory Report Ordering Provider Test Date Status INGRIDKOTATIFFANY 04/05/2024 08:27:52 Final Observation Date Value Abnormality Reference (Units ) Status Troponin T 04/05/2024 08:27:52 31 Above high normal < =22 (ng/L) Final Performing Location [facility] [place] - [address] [place] [address]
--- OUTSIDE RECORDS SUMMARY | 2024-04-07 09:28 | External Medical Summary ---
Author Name Unknown Address Unknown Organization [id number][place] [place] [address] [place] [address] Laboratory Report Ordering Provider Test Date Status TIFFANY HERNANDEZ 04/05/2024 08:27:52 Final Observation Date Value Abnormality Reference (Units ) Status SYNC LEUKOCYTES IN BLOOD BY AUTOMATED COUNT 04/05/2024 08:27:52 9.88 4.00-10.80 (K/uL) Final Segs 04/05/2024 08:27:52 80.8 Above high normal 40.0-75.0 (%) Final Lymphs % 04/05/2024 08:27:52 8.5 Below low normal 18.0-42.0 (%) Final Monos 04/05/2024 08:27:52 7.0 1.0-11.0 (%) Final Eosinophils 04/05/2024 08:27:52 2.3 0.0-6.0 (%) Final Basos 04/05/2024 08:27:52 0.8 0.0-2.0 (%) Final Immature Granulocyte, Percent 04/05/2024 08:27:52 0.6 0.0-2.0 (%) Final Absolute Segs 04/05/2024 08:27:52 7.98 Above high normal 1.80-7.70 (K/uL) Final Lymphs, absolute 04/05/2024 08:27:52 0.84 Below low normal 1.00-4.80 (K/ul) Final Monos, Abs 04/05/2024 08:27:52 0.69 0.00-1.10 (K/uL) Final Eos, Abs 04/05/2024 08:27:52 0.23 0.00-0.70 (K/uL) Final Basos, Abs 04/05/2024 08:27:52 0.08 0.00-0.20 (K/uL) Final Immature Granulocytes, Number 04/05/2024 08:27:52 0.06 0.00-0.20 (K/uL) Final Performing Location [facility] [place] [facility] [place] [address]
--- OUTSIDE RECORDS SUMMARY | 2024-04-07 09:28 | External Medical Summary | Summary of Care ---
Author Name Unknown Organization [facility] Address [address] [place] [address] Phone [phone] Care Team Providers Care Trommel Tender Name Role Phone Declan Dejesus MD Primary Care Provider [phone] Reason for Visit * Reason Comments Outpatient Testing Encounter Details Date Type Department Care Team (Late st Contact Info) Description 04/05/2024 8:40 AM EST Laboratory Laboratory, [facility] [address] [place] [id number] [facility], Laboratory [address], [place] [id number] Type 2 diabetes mellitus with hemoglobin A1c goal of less than 7.0% ([facility]); HTN, goal below 140/90; Fatigue, unspecified type; Murmur Allergies Active Allergy Reactions Criticality Noted Date Comments Empagliflozin 10/06/2020 Fungal infection, urinary frequency Lisinopril Cough Nickel Rash 09/13/2011 Tetanus Toxoids Rash 09/13/2011 documented as of this encounter (statuses as of 04/05/2024) Medications MULTI VITAMIN MENS PO TABS one by mouth daily Active Acetaminophen 325 MG Oral Capsule Take 1 Tablet by mouth every 4 hours as needed for Pain. Active Acetaminophen 500 MG Oral Tablet (Tylenol Extra Strength) Take 2 Tablets by mouth in the morning and 2 Tablets at noon and 2 Tablets before bedtime. Active Ferrous Sulfate 325 (65 Fe) MG Oral Tablet (Feosol) Take 1 Tab by mouth daily with breakfast. 30 Tab 1 Active Vitamin C 500 MG Oral Tablet (Ascorbic Acid) Take 1 Tab by mouth daily. 30 Tab 1 Active Aspirin 81 MG Oral Tablet Delayed ReleaseIndications :Type 2 diabetes mellitus with hemoglobin A1c goal of less than 7.0% (HCC) Take 1 Tablet by mouth in the morning. 30 Tablet 6 3 Active metFORMIN HCl 1000 MG Oral Tablet (Glucophage)Indica tions:Type 2 diabetes mellitus with hemoglobin A1c goal of less than 7.0% (HCC) Take 1 Tablet by mouth in the morning and 1 Tablet before bedtime. With meals.. 180 Tablet 3 02/09/2024 9:03 AM EDT 4 Active Rosuvastatin Calcium 40 MG Oral Tablet (Crestor)Indicatio ns:High triglycerides take one tablet by mouth once a day 90 Tablet 3 02/09/2024 9:03 AM EDT 4 Active Dutasteride 0.5 MG Oral Capsule (Avodart)Indicatio ns:BPH with obstruction/lower urinary tract symptoms Take 1 Capsule by mouth in the morning. 90 Capsule 3 02/09/2024 9:03 AM EDT 4 Active Glimepiride 2 MG Oral Tablet (Amaryl) TAKE ONE TABLET BY MOUTH DAILY WITH BREAKFAST 90 Tablet 3 02/20/2024 7:27 AM EDT 4 Active Losartan Potassium 50 MG Oral Tablet (Cozaar) Take 1 Tablet by mouth daily. 90 Tablet 1 03/20/2024 7:45 AM EST 4 Active Tamsulosin HCl 0.4 MG Oral Capsule (Flomax) Take 1 Capsule by mouth at bedtime. 90 Capsule 1 03/20/2024 7:45 AM EST 4 Active Latanoprost 0.005 % Ophthalmic Solution (Xalatan) Instill 1 drop into both eyes at bedtime 10 mL 3 01/19/2024 3:31 PM EDT 4 Active Timolol Maleate 0.25 % Ophthalmic Solution (Timoptic) Instill 2 Drops into both eyes in the morning. 15 mL 3 02/16/2024 8:03 AM EDT Active documented as of this encounter (statuses as of 04/05/2024) Active Problems Problem Noted Date Diagnosed Date Primary open-angle glaucoma, bilateral, moderate stage 05/20/2023 Type 2 diabetes mellitus with diabetic nephropat hy 05/20/2023 S/P total knee replacement, right 10/09/2020 REMBERTO on CPAP 10/09/2020 Iron deficiency anemia due to chronic blood loss 09/27/2016 HTN, goal below 140/90 10/27/2015 Overview: Per HTN Protocol Dyslipidemia, goal LDL below 130 08/27/2013 Benign paroxysmal vertigo 12/12/2012 BPH with obstruction/lower urinary tract symptom s 07/03/2012 Severe obesity with body mas s index (BMI) of 35.0 to 39.9 with serious comorbidity 10/27/2009 Overview (03/01/2018): Per Obesity Protocol, #19 ICD-10 update of inactive diagnosis Type 2 diabetes mellitus wit h hemoglobin A1c goal of less than 7.0% 03/11/2009 Overview (09/09/2015): ICD-10 update of inactive term documented as of this encounter (statuses as of 04/05/2024) Resolved Problems Problem Noted Date Diagnosed Date Resolved Date Primary open-angle glaucoma, right eye, moderate stage 10/16/2020 08/15/2023 Overview (08/15/2023): Noted on pl as OU moderate Glaucoma 08/27/2013 06/07/2022 Overview (06/07/2022): More specific dx on pl HTN, goal below 140/80 07/03/201210/29 Overview: Per HTN Protocol documented as of this encounter (statuses as of 04/05/2024) Immunizations Name Administration Dates Next Due COVID-19 mRNA, LNP-s, No Pre serve, 2-Dose Series (Moderna) 08/19/2020,07/22/2020 COVID-19, MRNA-LNP, PF, 50 M CG/0.5 mL, 12 YRS AND ABOVE, IM (MODERNA-Spikevax) 04/04/2023 COVID-19, mRNA, LNP-s, PF, B ooster, 100mcg/0.5mg (Moderna) 04/16/2021 Covid-19 Ad26, Single Dose (Sylvia/J&J) 08/19/2020,07/22/2020 Pneumococcal Conjugate Vacci ne, 20-valent (Kymddue10) 05/20/2023 Pneumococcal Polysaccharide PPV23 (Pneumovax) 03/11/2009,10/11/2008(Deferred: Patient Refused) Seasonal Influenza Vac., MDV , IM, 0.5 mL (Fluzone) 03/07/2016,06/15/2015,07/16/2013,05/17,05/05/2009(Deferred: Patient Refused) Seasonal Influenza, Quadriva lent Hd (Fluzone Hd) 04/04/2023 Seasonal Influenza, Quadrivalent, ID 03/11/2022, 04/16/2021,02/19/2020 TDAP, Age 7 and older, IM (Adacel) 10/11/2008(De jeff: Patient Refused) Zoster Vaccine Recombinant (Shingrix) 06/10/2023 ,04/04/2023 documented as of this encounter Social History Tobacco Use Types Packs/Day Years Used Date Smoking Tobacco: Former Cigarettes 2 30 0 12/03/1982 - 12/03/2012 Smokeless Tobacco: Never Alcohol Use Standard Drinks/Week Comments Yes 0 (1 standard drink = 0.6 oz pur e alcohol) seasonally and socially PHQ-2 Answer Date Recorded PHQ Adult Total Score 0 07/20/2023 Hunger Vital Sign Answer Date Recorded Within the past 12 months, y ou worried that your food would run out before you got the money to buy more. Patient declined Within the past 12 months, t he food you bought just didn't last and you didn't have money to get more. Patient declined 12/2023 Childcare Answer Date Recorded Do you feel overwhelmed with taking care of a child, family member or friend? Yes 06/23/2023 Does your family need help f inding childcare? (Household - for ages 0-17 years) Not on file 06/23/2023 Clothing Answer Date Recorded Have you been unable to get clothing when it was really needed? No 06/23/2023 Is your family able to get c lothes or diapers when needed? (Household - for ages 0-17 years) Not on file 06/23/2023 Personal Safety Answer Date Recorded Do you feel unsafe or have concerns for your saf ety? No 06/23/2023 Do you have concerns for you r family's safety? (Household - for ages 0-17 years) Not on file 06/23/2023 Utilities Answer Date Recorded Do you have trouble paying y our heating, water, or electric bill? No 06/23/2023 Is your family able to pay t he heat, water, or electric bill? (Household - for ages 0-17 years) Not on file 06/23/2023 Does your family have access to good internet? (Household - for ages 0-17 years) Not on file 06/23/2023 Employment Status Answer Date Recorded Are you unemployed or without regular income? No 06/23/2023 Does the household have a [facility] source of income? (Household - for ages 0-17 years) Not on file 06/23/2023 Social Connections Answer Date Recorded How often do you feel lonely or isolated from those around you? Sometimes 06/23/2023 Financial Resource Strain Answer Date R ecorded Do you have any trouble payi ng for your medications, or do you think you might in the future? Yes 06/23/2023 Does your family have troubl e paying for medicine? (Household - for ages 0-17 years) Not on file 06/23/2023 Transportation Needs Answer Date Record ed READ ONLY Do you have troubl e getting a ride to medical visits or work? Sometimes True 06/23/2023 Does your family have a hard time getting a ride to doctors visits? (Household - for ages 0-17 years) Not on file 06/23/2023 Has lack of transportation k ept you from medical appointments, meetings, work, or from getting things needed for daily living? Check all that apply. (Adult - for ages 18 years and over) Not on file 06/23/2023 Do you (or your family) have trouble finding or paying for a ride (transportation)? (Household - for ages 0-17 years) Not on file 06/23/2023 Housing Stability Answer Date Recorded Do you currently live in a s helter or have no steady place to sleep at night? No 06/23/2023 READ ONLY Do you think you a re at risk of becoming homeless? No 06/23/2023 Does your family worry about paying for your home or becoming homeless? (Household - for ages 0-17 years) Not on file 0 06/23/2023 Are you homeless or worried that you might be in the future? (Adult - for ages 18 years and over) Not on file Are you (or your family) alayna eless or worried that you might be in the future? (Household - for ages 0-17 years) Not on file Food Insecurity Answer Date Recorded Do you need food for this week? No 06/23/2023 Are you able to get enough f ood for your family? (Household - for ages 0-17 years) Not on file 06/23/2023 Does your family need food t his week? (Household - for ages 0-17 years) Not on file 06/23/2023 Do you always have enough fo od for your family? (Household - for ages 0-17 years) Not on file 06/23/2023 Sex and Gender Information Value Date Recorded Sex Assigned at Male 06/23/2023 2:00 PM EST Legal Sex Male 6:25 AM EST Gender Identity Male 06/23/2023 2:00 PM EST Sexual Orientation Straight 06/23/2023 2: 00 PM EST documented as of this encounter Plan of Treatment Upcoming Encounters Date Type Department Care Team (Late st Contact Info) Description 04/20/2024 11:20 AM EST Office Visit Family [facility] Zacarias Gallegos [address] [phone] SeptemberDeclan MD [address] [address] 04/25/2024 7:15 AM EST Cardiac Studies Cardiac Studies, [facility] [address] [address] 07/24/2024 10:00 AM EDT Nurse Only Ancillary Department, [address] [phone] Ashleigh, Nurse Annual Wellness [address] [id number] Pending Results Name Type Priority Associated Diagnoses Date /Time HEMOGLOBIN A1C Lab Routine Type 2 diabetes mellitus with hemoglobin A1c goal of less than 7.0% (HCC) 04/05/2024 8:27 AM EST CBC WITH WBC DIFFERENTIAL Lab Routine Type 2 diabetes mellitus with hemoglobin A1c goal of less than 7.0% (HCC) HTN, goal below 140/90 Fatigue, unspecified type 04/05/2024 8:27 AM EST COMPREHENSIVE METABOLIC PANEL Lab Routine Type 2 diabetes mellitus with hemoglobin A1c goal of less than 7.0% (HCC) HTN, goal below 140/90 Fatigue, unspecified type 04/05/2024 8:27 AM EST URINALYSIS, REFLEX TO MICROSCOPIC Lab Routine Type 2 diabetes mellitus with hemoglobin A1c goal of less than 7.0% (HCC) Fatigue, unspecified type 04/05/2024 8:27 AM EST TSH WITH FREE T4 IF INDICATED Lab Routine HTN, goal below 140/90 Fatigue, unspecified type 04/05/2024 8:27 AM EST TROPONIN T, HIGH SENSITIVITY Lab Routine HTN, goal below 140/90 Fatigue, unspecified type Murmur 04/05/2024 8:27 AM EST CBC Lab Routine Type 2 diabetes mellitus with hemoglobin A1c goal of less than 7.0% (HCC) HTN, goal below 140/90 Fatigue, unspecified type 04/05/2024 8:27 AM EST DIFFERENTIAL, AUTOMATED Lab Routine Type 2 diabetes mellitus with hemoglobin A1c goal of less than 7.0% (HCC) HTN, goal below 140/90 Fatigue, unspecified type 04/05/2024 8:27 AM EST Scheduled Procedures Name Priority Associated Diagnoses Date/Ti me COLONOSCOPY FLEXIBLE PROXIMA L DIAGNOSTIC Recall Screening for colon cancer Health Maintenance Due Date Last Done Comments Sigmoidoscopy 1998 Lung Cancer Screening 2003 Fecal Occult Blood Test 01/14/2024 01/14/20 23, 01/13/2023, 01/15/2022, Additional history exists COVID-19 Vaccine ( season) 2024 04/04/2023, 04/16/2021, 08/19/2020, Additional history exists Influenza Vaccine (FLU shot) (#1) 2024 04/04/2023, 03/11/2022, 04/16/2021, Additional history exists HbA1c 04/19/2024 10/19/2023, 09/2023, 07/20/2023, Additional history exists Adult Wellness Visit 07/19/2024 07/20/2023 B-12 07/19/2024 07/20/2023 Depression Screening 07/19/2024 07/20/2023 Diabetic Foot Exam 07/19/2024 07/20/2023, 0 01/03/2017, 02/17/2015, Additional history exists GFR 07/19/2024 07/20/2023, 12/15, 10/07/2020, Additional history exists Diabetic Eye Exam 12/12/2024 12/13/2023, , 07/13/2023, Additional history exists Albumin/Creatinine Ratio 03/26/2025 024, 01/04/2023, 07/05/2022, Additional history exists Cologuard 2026 2023, 05/16, 05/25/2023 Colonoscopy 06/29/2028 06/29/2023, 06/16, 07/13/2016, Additional history exists Colorectal Cancer Screening 06/29/2028 Lipid Panel 07/19/2028 07/20/2023, 12/15, 01/08/2019, Additional history exists AAA Screening Completed 10/18/2018, 0 09/2018, 11/11/2014, Additional history exists Pneumococcal Vaccine: 65+ Years Completed 05/20/2023, 03/11/2009 Zoster Vaccines Completed 06/10/2023, 04/04/2023 HPV (Gardasil) Vaccine Aged Out No lo nger eligible based on patient's age to complete this topic Hepatitis B Vaccine Aged Out No longe r eligible based on patient's age to complete this topic MENINGOCOCCAL (MENACTRA/MENVEO) Aged Out No longer eligible based on patient's age to complete this topic documented as of this encounter Medical Devices Implanted Type Area Environmental Services Project Manager Device Identifier Shelf Expiration Date Model / Serial / Lot Iol Mx60 14.0 Implanted:Qty: 1 on 10/19/2019 by Ankit Ny MD at [facility] Right: Eye 04/14/2020 MX60 / [id number] / [id number] Implanted:Qty: 1 on 10/30/2019 by Ankit Ny MD at [facility] Left: Eye 02/12/2021 MX60 / [id number] / [id number] documented as of this encounter Visit Diagnoses Diagnosis Type 2 diabetes mellitus with hemoglobin A1c goal of less than 7.0% (HCC) HTN, goal below 140/90 Unspecified essential hypertension Fatigue, unspecified type Murmur Undiagnosed cardiac murmurs documented in this encounter Care Teams Trommel Tender Relationship Specialty Start Date End Date September, Declan Person MD [address] [place] [address] PCP - General Family Medicine 05/20/23 documented as of this encounter
--- OUTSIDE RECORDS SUMMARY | 2024-04-07 09:28 | External Medical Summary ---
Author Name Unknown Address Unknown Organization [id number]:LABORATORY [facility] [place] - [address] [facility] [place] [address] Laboratory Report Ordering Provider Test Date Status TIFFANY HERNANDEZ 04/05/2024 08:27:52 Final Observation Date Value Abnormality Reference (Units ) Status BUN 04/05/2024 08:27:52 17 6-20 (mg/dL) Final Creatinine 04/05/2024 08:27:52 0.7 0.6-1.2 (mg/dL) Final Glomerular filtration rate/1.73 sq M.predicted [Volume Rate/Area] in Serum, Plasma or Blood by Creatinine-based formula (CKD-EPI) 04/05/2024 08:27:52 >90 >=60 (mL/min) Final eGFR is calculated based on the CKD-EPI 2020 equation. Sodium 04/05/2024 08:27:52 140 135-146 (m mol/L) Final Potassium 04/05/2024 08:27:52 4.4 3.5-5.1 (m mol/L) Final Cl 04/05/2024 08:27:52 106 98-107 (mm ol/L) Final CO2 04/05/2024 08:27:52 23 22-32 (mmo l/L) Final Anion gap 04/05/2024 08:27:52 11 7-15 (mmol /L) Final Glucose 04/05/2024 08:27:52 182 Above high normal 70 -120 (mg/dL) Final Albumin 04/05/2024 08:27:52 4.2 3.8-5.0 (g /dL) Final AST (Aspartate aminotransferase) 04/05/2024 08:27:52 13 10-50 (U/L) Fin al Alk Phos 04/05/2024 08:27:52 64 35-130 (U/ L) Final Bilirubin, Total 04/05/2024 08:27:52 0.7 <=1 .2 (mg/dL) Final Calcium 04/05/2024 08:27:52 9.7 8.4-10.2 ( mg/dL) Final Protein 04/05/2024 08:27:52 6.4 6.0-8.3 (g /dL) Final ALT (Alanine aminotransferase) 04/05/2024 08:27:52 19 10-50 (U/L) Vignesh vargas Performing Location LAB[facility]ATORY [facility] - [facility] [address] [facility] [id number]
--- OUTSIDE RECORDS SUMMARY | 2024-04-07 09:28 | External Medical Summary ---
Author Name Unknown Address Unknown Organization [id number]:LABORATORY [facility] - [facility] [address] [place] [address] Laboratory Report Ordering Provider Test Date Status INGRIDKOTATIFFANY 04/05/2024 08:27:52 Final Observation Date Value Abnormality Reference (Units ) Status TSH 04/05/2024 08:27:52 1.88 0.27-4.20 (uIU/mL) Final Performing Location LABORATORY [facility] - [address] [place] [address]
--- OUTSIDE RECORDS SUMMARY | 2024-04-07 09:28 | External Medical Summary ---
Author Name Unknown Address Unknown Organization [id number]:LABORATORY [facility] [place] - [address] [place] [address] Laboratory Report Ordering Provider Test Date Status ERIKAIFTIKHARTIFFANY 04/05/2024 08:27:52 Final Observation Date Value Abnormality Reference (Units ) Status HbA1C 04/05/2024 08:27:52 4.9 4.0-5.6 (% ) Final The use of HbA1c to monitor glycemic status is based on normal hemoglobin and HbA composition. This test should not be used in patients with abnormal hemoglobin that affects the half life of the red blood cell or the in vivo glycation rates. Glucose, estimated average 04/05/2024 08:27:52 94 <126 (mg/dL) Final Performing Location LAB[facility]ATORY [facility] - [address] [place] [address]
--- OUTSIDE RECORDS SUMMARY | 2024-04-07 09:28 | External Medical Summary | Summary of Care ---
Author Name Unknown Organization [facility] Address [address] [place] [address] Phone [phone] Care Team Providers Care Accounting Clerks Supervisor Name Role Phone Declan Dejesus MD Primary Care Provider [phone] Reason for Referral * Precert (Diagnostic Medical) (Within 10 days (routine)) - Authorized Specialty Diagnoses / Procedures Referred By Contac t Referred To Contact Cardiac Studies Diagnoses HTN, goal below 140/90 Fatigue, unspecified type Murmur Procedures ECHO, COMPLETE (2D), TRANS-THORACIC Shira Black MD [address] [place] [address] Phone: tel: fax: Referral ID Status Reason Start Date Expiration Date V isits Requested Visits Authorized [id number] Authorized Precert 04/05/2024 999 999 Reason for Visit * Reason Comments Acute Experiencing high bl ood sugar, readings for the week having been in the mid to high 200's. Pt reports yesterday was the highest it's ever been at 270. Encounter Details Date Type Department Care Team (Late st Contact Info) Description 04/05/2024 8:00 AM EST Office Visit [facility] [place] [address] [facility] [place] [phone] Shira Black MD [address] [facility] [place] [address] Type 2 diabetes mellitus with hemoglobin A1c goal of less than 7.0% (HCC)*; HTN, goal below 140/90; Fatigue, unspecified type; [...] 15 mL 3 02/16/2024 8:03 AM EDT 4 Active documented as of this encounter (statuses [...] (Sylvia/J&J) 08/19/2020,07/22/2020 Pneumococcal Conjugate Vacci ne, 20-valent (Sfpndep36) 05/20/2023 Pneumococcal Polysaccharide PPV23 (Pneumovax) 03/11/2009,10/11/2008(Deferred: Patient Refused) Seasonal Influenza Vac., MDV , IM, 0.5 mL (Fluzone) 03/07/2016,06/15/2015,07/16/2013,05/17,05/05/2009(Deferred: Patient Refused) Seasonal Influenza, Quadriva lent Hd (Fluzone Hd) 04/04/2023 Seasonal Influenza, Quadrivalent, ID 03/11/2022, 04/16/2021,02/19/2020 TDAP, Age 7 and older, IM (Adacel) 10/11/2008(De ferred: Patient Refused) Zoster Vaccine Recombinant (Shingrix) 06/10/2023 [...] No 06/23/2023 Does the household have a re gular source of income? (Household - for ages [...] PM EST documented as of this encounter Last Filed Vital Signs Vital Sign Reading Time Taken Comments Blood Pressure 132/84 04/05/2024 7:51 AM EST Pulse 80 04/05/2024 7:51 AM EST Temperature 36.9 C (98.4 F) 04/05/2024 7:51 AM ES T Respiratory Rate 16 04/05/2024 7:51 AM EST Oxygen Saturation 98% 04/05/2024 7:51 AM EST Inhaled Oxygen Concentration - - Weight 108.3 kg (238 lb 11.2 oz) 04/05/2024 7:51 AM EST Height 176.5 cm (5' 9.5") 04/05/2024 7:51 AM EST Body Mass Index 34.74 04/05/2024 7:51 AM EST documented in this encounter Progress Notes * Shira Black MD - 04/05/2024 8:25 AM EST Subjective Rafael aCntu is a 68 year old male. Chief Complaint Patient presents with Acute Experiencing high blood sugar, readings for the week having been in the mid to high 200's. Pt reports yesterday was the highest it's ever been at 270. HPI: Here for increased fatigue, foggy feeling, not well feeling last several days Severe fatigue with exertion His sugar has been up too , Known type 2 DM, does not drink water, only diet soda, gatorade or icetea, etc Advised to stop it and drink only water Will need to rule out infection And also showed murmur, no recent 2D echo, will check Known obesity, HTN, HL Taking all his meds PMH: Patient Active Problem List Diagnosis Type 2 diabetes mellitus with hemoglobin A1c goal of less than 7.0% (HCC) Severe obesity with body mass index (BMI) of 35.0 to 39.9 with serious comorbidity (HCC) BPH with obstruction/lower urinary tract symptoms Benign paroxysmal vertigo Dyslipidemia, goal LDL below 130 HTN, goal below 140/90 Iron deficiency anemia due to chronic blood loss S/P total knee replacement, right REMBERTO on CPAP Primary open-angle glaucoma, bilateral, moderate stage Type 2 diabetes mellitus with diabetic nephropathy (HCC) Current Outpatient Medications Medication Sig Dispense Refill MULTI VITAMIN MENS PO TABS one by mouth daily Acetaminophen 325 MG Oral Capsule Take 1 Tablet by mouth every 4 hours as needed for Pain. Acetaminophen 500 MG Oral Tablet (Tylenol Extra Strength) Take 2 Tablets by mouth in the morning and 2 Tablets at noon and 2 Tablets before bedtime. Ferrous Sulfate 325 (65 Fe) MG Oral Tablet (Feosol) Take 1 Tab by mouth daily with breakfast. 30 Tab 0 Vitamin C 500 MG Oral Tablet (Ascorbic Acid) Take 1 Tab by mouth daily. 30 Tab 0 Aspirin 81 MG Oral Tablet Delayed Release Take 1 Tablet by mouth in the morning. 30 Tablet 6 metFORMIN HCl 1000 MG Oral Tablet (Glucophage) Take 1 Tablet by mouth in the morning and 1 Tablet before bedtime. With meals.. 180 Tablet 3 Rosuvastatin Calcium 40 MG Oral Tablet (Crestor) take one tablet by mouth once a day 90 Tablet 3 Dutasteride 0.5 MG Oral Capsule (Avodart) Take 1 Capsule by mouth in the morning. 90 Capsule 3 Glimepiride 2 MG Oral Tablet (Amaryl) TAKE ONE TABLET BY MOUTH DAILY WITH BREAKFAST 90 Tablet 3 Losartan Potassium 50 MG Oral Tablet (Cozaar) Take 1 Tablet by mouth daily. 90 Tablet 1 Tamsulosin HCl 0.4 MG Oral Capsule (Flomax) Take 1 Capsule by mouth at bedtime. 90 Capsule 1 Latanoprost 0.005 % Ophthalmic Solution (Xalatan) Instill 1 drop into both eyes at bedtime 10 mL 3 Timolol Maleate 0.25 % Ophthalmic Solution (Timoptic) Instill 2 Drops into both eyes in the morning. 15 mL 3 No current facility-administered medications for this visit. Past Medical History: Diagnosis Date Arthritis Diabetes mellitus (HCC) Dyslipidemia, goal LDL below 130 08/27/2013 Dyslipidemia, goal to be determined Glaucoma 08/27/2013 Hypertension Lumbago Major depressive disorder, single episode, moderate (HCC) Obesity Shortness of breath Type 2 diabetes mellitus (HCC) UTI (urinary tract infection) Past Surgical History: Procedure Laterality Date ARTHROPLASTY KNEE TOTAL Right 10/01/[address] [facility] [address] Sinclair CARDIAC SURGERY PROCEDURE NEC cardiac cath 2016 COLONOSCOPY, DIAGNOSTIC (RECTUM) 07/13/2016 adenomatous polyp, repeat 3 yrs/[facility] COLONOSCOPY, DIAGNOSTIC (RECTUM) N/A 06/29/2023 sigmoid diverticulosis/hemorrhoids/recall 5 years/Colonoscopy/[place] COLORECTAL CANCER SCREEN; NOT AT RISK 12/07/2011 COLONOSCOPY CA SCRN NOT HI RSK performed by Julissa Vinson DO at ENDOSCOPY [facility] CORONARY ANGIOGRAPHY W/LEFT HEART CATH Right 08/16/2016 CORONARY ANGIOGRAPHY W/LEFT HEART CATH performed by Khang Mir MD [place] [facility] [place], FLEXIBLE, DIAGNOSTIC 07/13/2016 Barretts, repeat 3 yrs/[facility] MISCELLANEOUS ORDER ([facility] ONLY) left wrist fracture and surgical repair MISCELLANEOUS ORDER ([facility] ONLY) ACT 112 signed, 08/10/2018 PARTIAL REMOVAL OF EYE FLUID Right 08/21/2018 23G PPV/MP for ERM with VMT OD, Dr. Johnston RELIEVE INNER EYE PRESSURE Right 10/19/2019 right GONIOTOMY performed by Ankit Ny MD at OR [facility] RELIEVE INNER EYE PRESSURE Left 10/30/2019 left GONIOTOMY performed by Ankit Ny MD at OR [facility] REMOVAL OF ADENOIDS, AGE 12+ REMOVAL OF TONSILS, UNDER AGE 12 REMOVE CATARACT, INSERT LENS PROSTH Right 10/19/2019 right EXTRACAPSULAR CATARACT REMOVAL WITH INTRAOCULAR LENS performed by Ankit Ny MD at OR [facility] REMOVE CATARACT, INSERT LENS PROSTH Left 10/30/2019 left EXTRACAPSULAR CATARACT REMOVAL WITH INTRAOCULAR LENS performed by Ankit Ny MD at OR [facility] SHOULDER SURGERY PROCEDURE NEC 2003, 2008 left then right rotator cuff Review of patient's allergies indicates: Allergen Reactions Empagliflozin Fungal infection, urinary frequency Lisinopril Cough Nickel Rash Tetanus Toxoids Rash Family History Problem Relation Name Age of Onset Cancer Mother Cancer Stroke Father prostate cancer Diabetes Sister Diabetes Grandmother (Maternal) Eye Problems None Denies family hx of AMD, RD, glaucoma, or blindness Heart Disorder None Hypertension None Thyroid Disorder None Family Status Relation Status Mo at age 56 Fa at age 86 Sis (Not Specified) MGMA (Not Specified) NONE (Not Specified) Social History Socioeconomic History Marital status: Spouse name: Not on file Number of children: Not on file Years of education: Not on file Highest education level: Not on file Occupational History Not on file Tobacco Use Smoking status: Former Current packs/day: 0.00 Average packs/day: 2.0 packs/day for 30.0 years (60.0 ttl pk-yrs) Types: Cigarettes Start date: 12/03/1982 Quit date: 12/03/2012 Years since quittin.3 Smokeless tobacco: Never Vaping Use Vaping status: Never Used Substance and Sexual Activity Alcohol use: Yes Alcohol/week: 0.0 standard drinks of alcohol Comment: seasonally and socially Drug use: No Sexual activity: Yes Comment: has tried viagra Other Topics Concern Service No Blood Transfusions No Caffeine Concern Yes Comment: when driving Occupational Exposure No Hobby Hazards No Sleep Concern Yes Comment: up to urinate Stress Concern Not Asked Weight Concern Yes Special Diet No Back Care Yes Comment: fall in past and it gives him trouble from time to time Exercise Not Asked Bike Helmet Not Asked Seat Belt Yes Self-Exams No 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 (Adult - for ages 18 years and over): Yes Does your family have trouble paying for medicine? (Household - for ages 0-17 years): Not on file Food Insecurity: No Food Insecurity (06/23/2023) Food Insecurity Do you need food for this week? (Adult - for ages 18 years and over): No Are you able to get enough food for your family? (Household - for ages 0-17 years): Not on file Does your family need food this week? (Household - for ages 0-17 years): Not on file Do you always have enough food for your family? (Household - for ages 0-17 years): Not on file Transportation Needs: Unmet Transportation Needs (06/23/2023) Transportation Needs Do you have trouble getting a ride to medical visits or work? (Adult - for ages 18 years and over):Sometimes True Does your family have a hard time getting a ride to doctors visits? (Household - for ages 0-17 years): Not on file Has lack of transportation kept you from medical appointments, meetings, work, or from getting things needed for daily living? Check all that apply. (Adult - for ages 18 years and over): Not on file Do you (or your family) have trouble finding or paying for a ride (transportation)? (Household - for ages 0-17 years): Not on file Social Connections: Socially Integrated (06/23/2023) Social Connections How often do you feel lonely or isolated from those around you? (Adult - for ages 18 years and over): Sometimes Housing Stability: Low Risk (06/23/2023) Housing Stability Do you currently live in a intermediate or have no steady place to sleep at night? (Adult - for ages 18 years and over): No Do you think you are at risk of becoming homeless? (Adult - for ages 18 years and over): No Does your family worry about paying for your home or becoming homeless? (Household - for ages 0-17 years): Not on file Are you homeless or worried that you might be in the future? (Adult - for ages 18 years and over): Not on file Are you (or your family) homeless or worried that you might be in the future? (Household - for ages0-17 years): Not on file Review of Systems Constitutional: Positive for activity change and fatigue. Negative for appetite change, chills, diaphoresis, fever and unexpected weight change. Respiratory: Positive for shortness of breath (on exetion). Negative for cough, chest tightness andwheezing. Cardiovascular: Negative for chest pain, palpitations and leg swelling. Gastrointestinal: Negative for abdominal distention, abdominal pain, constipation, diarrhea, nauseaand vomiting. Endocrine: Negative. Genitourinary: Negative for difficulty urinating, dysuria, frequency and hematuria. Neurological: Positive for weakness (general). Negative for dizziness, light- headedness and headaches. Psychiatric/Behavioral: Negative for agitation, behavioral problems and sleep disturbance. Objective BP 132/84 | Pulse 80 | Temp 98.4 F (36.9 C) (Tympanic) | Resp 16 | Ht 5' 9.5" (1.765 m) | Wt 238 lb 11.2 oz (108.3 kg) | SpO2 98% | BMI 34.74 kg/m | BSA 2.3 m Physical Exam Constitutional: General: He is not in acute distress. Appearance: Normal appearance. He is obese. He is not ill-appearing, toxic- appearing or diaphoretic. HENT: Head: Normocephalic and atraumatic. Nose: Nose normal. Eyes: Extraocular Movements: Extraocular movements intact. Cardiovascular: Rate and Rhythm: Normal rate and regular rhythm. Pulses: Normal pulses. Heart sounds: Murmur heard. Pulmonary: Effort: Pulmonary effort is normal. No respiratory distress. Breath sounds: Normal breath sounds. No stridor. No wheezing, rhonchi or rales. Chest: Chest wall: No tenderness. Musculoskeletal: Right lower leg: No edema. Left lower leg: No edema. Neurological: General: No focal deficit present. Mental Status: He is alert and oriented to person, place, and time. Psychiatric: Behavior: Behavior normal. ASSESSMENT/PLAN: Type 2 diabetes mellitus with hemoglobin A1c goal of less than 7.0% ([facility]) (Primary) - HEMOGLOBIN A1C; Future; Expected date: 04/05/2024 - CBC WITH WBC DIFFERENTIAL; Future; Expected date: 04/05/2024 - COMPREHENSIVE METABOLIC PANEL; Future; Expected date: 04/05/2024 - CULTURE, URINE, QUANTITATIVE - URINALYSIS, REFLEX TO MICROSCOPIC; Future; Expected date: 04/05/2024 HTN, goal below 140/90 - CBC WITH WBC DIFFERENTIAL; Future; Expected date: 04/05/2024 - COMPREHENSIVE METABOLIC PANEL; Future; Expected date: 04/05/2024 - TSH WITH FREE T4 IF INDICATED; Future; Expected date: 04/05/2024 - TROPONIN T, HIGH SENSITIVITY; Future; Expected date: 04/05/2024 - ECHO, COMPLETE (2D), TRANS-THORACIC; Future; Expected date: 04/05/2024 Fatigue, unspecified type - CBC WITH WBC DIFFERENTIAL; Future; Expected date: 04/05/2024 - COMPREHENSIVE METABOLIC PANEL; Future; Expected date: 04/05/2024 - CULTURE, URINE, QUANTITATIVE - URINALYSIS, REFLEX TO MICROSCOPIC; Future; Expected date: 04/05/2024 - TSH WITH FREE T4 IF INDICATED; Future; Expected date: 04/05/2024 - TROPONIN T, HIGH SENSITIVITY; Future; Expected date: 04/05/2024 - ECHO, COMPLETE (2D), TRANS-THORACIC; Future; Expected date: 04/05/2024 - 25-HYDROXY VITAMIN D; Future; Expected date: 04/05/2024 Murmur - TROPONIN T, HIGH SENSITIVITY; Future; Expected date: 04/05/2024 - ECHO, COMPLETE (2D), TRANS-THORACIC; Future; Expected date: 04/05/2024 Check-out note: Labs today And 2D echo Water, diet changes F/u all the tests Check glucose Shira Black MD documented in this encounter Nursing Notes * Shaar Quick MED ASSIST - 04/05/2024 7:59 AM EST The patient has been properly identified by confirmation of name and date of . Chief Complaint Patient presents with Acute Experiencing high blood sugar, readings for the week having been in the mid to high 200's. Pt reports yesterday was the highest it's ever been at 270. documented in this encounter Plan of Treatment Upcoming Encounters Date Type Department Care Team (Late st Contact Info) Description 04/20/2024 11:20 AM EST [facility] [place] [phone] SeptemberDeclan MD [address] [facility] [address] 04/25/2024 7:15 AM EST Cardiac Studies Cardiac Studies, [facility] [address] [facility] [place] [address] 07/24/2024 10:00 AM EDT Nurse Only Ancillary Department, [place] [address] [facility] [place] [phone] [place] Nurse [facility] [address] [facility] [place] [address] Pending Results Name Type Priority Associated Diagnoses [...] Fatigue, unspecified type 04/05/2024 8:27 AM EST CULTURE, URINE, QUANTITATIVE Lab Routine Type 2 diabetes mellitus with [...] unspecified type Murmur 04/05/2024 8:27 AM EST Scheduled Orders Name Type Priority Associated Diagnoses Orde r Schedule HEMOGLOBIN A1C Lab Routine Type 2 diabetes mellitus with hemoglobin A1c goal of less than 7.0% (HCC) Expected: 04/05/2024 (Approximate), Expires: 04/05/2025 CBC WITH WBC DIFFERENTIAL Lab Routine Type 2 diabetes mellitus with hemoglobin A1c goal of less than 7.0% (HCC) HTN, goal below 140/90 Fatigue, unspecified type Expected: 04/05/2024 (Approximate), Expires: 04/05/2025 COMPREHENSIVE METABOLIC PANEL Lab Routine Type 2 diabetes mellitus with hemoglobin A1c goal of less than 7.0% (HCC) HTN, goal below 140/90 Fatigue, unspecified type Expected: 04/05/2024 (Approximate), Expires: 04/05/2025 URINALYSIS, REFLEX TO MICROSCOPIC Lab Routine Type 2 diabetes mellitus with hemoglobin A1c goal of less than 7.0% (HCC) Fatigue, unspecified type Expected: 04/05/2024, Expires: 04/05/2025 TSH WITH FREE T4 IF INDICATED Lab Routine HTN, goal below 140/90 Fatigue, unspecified type Expected: 04/05/2024 (Approximate), Expires: 04/05/2025 TROPONIN T, HIGH SENSITIVITY Lab Routine HTN, goal below 140/90 Fatigue, unspecified type Murmur Expected: 04/05/2024 (Approximate), Expires: 04/05/2025 ECHO, COMPLETE (2D), TRANS-THORACIC Echocardiology Routine HTN, goal below 140/90 Fatigue, unspecified type Murmur Expected: 04/05/2024, Expires: 05/05/2026 25-HYDROXY VITAMIN D Lab Routine Fatigue, unspecified type Expected: 04/05/2024 (Approximate), Expires: 04/05/2025 Scheduled Procedures Name Priority Associated Diagnoses Date/Ti [...] 04/16/2021, Additional history exists HbA1c 04/19/2024 10/19/2023, 06/0 09/2023, 07/20/2023, Additional history exists Adult Wellness Visit 07/19/2024 07/20/2023 B-12 07/19/2024 07/20/2023 Depression Screening 07/19/2024 07/20/2023 Diabetic Foot Exam 07/19/2024 07/20/2023, 0 01/03/2017, 02/17/2015, Additional history exists GFR 07/19/2024 07/20/2023, 0806/2022, 10/07/2020, Additional history exists Diabetic Eye Exam 12/12/2024 12/13/2023, , 07/13/2023, Additional history exists Albumin/Creatinine Ratio 03/26/2025 024, 01/04/2023, 07/05/2022, Additional history exists Cologuard 2026 2023, 05/16, 05/25/2023 Colonoscopy 06/29/2028 06/29/2023, 06/16, 07/13/2016, Additional history exists Colorectal Cancer Screening 06/29/2028 Lipid Panel 07/19/2028 07/20/2023, 12/15, 01/08/2019, Additional history exists AAA Screening Completed 10/18/2018, 09/2018, 11/11/2014, Additional history exists Pneumococcal Vaccine: [...] this encounter Medical Devices Implanted Type Area Paper Bag Inspector Device Identifier Shelf Expiration Date Model / Serial / Lot Iol Mx60 14.0 Implanted:Qty: 1 on 10/19/2019 by Ankit Ny MD at OR [facility] Right: Eye 04/14/2020 MX60 / [id number] / Mx60 Implanted:Qty: 1 on 10/30/2019 by Ankit Ny MD at OR [facility] Left: Eye 02/12/2021 MX60 / [id number] / [id number] documented as of this encounter Visit Diagnoses Diagnosis Type 2 diabetes mellitus with hemoglobin A1c goal of less than 7.0% (HCC)- Primary HTN, goal below 140/90 Unspecified essential hypertension Fatigue, unspecified type Murmur Undiagnosed cardiac murmurs documented in this encounter Care Teams Accounting Clerks Supervisor Relationship Specialty Start Date End Date September, Declan Person MD [address] [place] [address] PCP - General Family Medicine 05/20/23 documented as of this encounter
--- OUTSIDE RECORDS SUMMARY | 2024-04-07 09:28 | External Medical Summary ---
Author Name Unknown Address Unknown Organization [id number]:[facility] [place] [facility] [address] [facility] [address] Laboratory Report Ordering Provider Test Date Status TIFFANY HERNANDEZ 04/05/2024 08:27:52 Final Observation Date Value Abnormality Reference (Units ) Status WBC, Total 04/05/2024 08:27:52 9.88 4.00-10.80 (K/uL) Final RBC 04/05/2024 08:27:52 2.67 4.50-5.25 (M/uL) Final Hemoglobin 04/05/2024 08:27:52 8.9 Below low normal 14.0-16.8 (g/dL) Final HCT 04/05/2024 08:27:52 29.1 Below low normal 40.0-48.4 (%) Final MCV 04/05/2024 08:27:52 109.0 82.0-99.5 (fL) Final MCH 04/05/2024 08:27:52 33.3 27.0-34.0 (pg) Final MCHC 04/05/2024 08:27:52 30.6 32.0-36.0 (g/dL) Final RDW 04/05/2024 08:27:52 15.7 11.5-15.5 (%) Final Platelets 04/05/2024 08:27:52 228 140-400 (K/uL) Final MPV 04/05/2024 08:27:52 11.3 6.6-11.1 (fL) Final Nucleated erythrocytes/100 leukocytes [Ratio] in Blood by Automated count 04/05/2024 08:27:52 0 <=0 (/100 WBCs) Final Performing Location [facility] [place] [address] [address]
--- OUTSIDE RECORDS SUMMARY | 2024-04-07 09:28 | External Medical Summary ---
Author Name Unknown Address Unknown Organization [id number][place] [place] [address] [facility] [address] Laboratory Report Ordering Provider Test Date Status TIFFANY HERNANDEZ 04/05/2024 08:27:52 Final Observation Date Value Abnormality Reference (Units ) Status Color of Urine by Auto 04/05/2024 08:27:52 Yellow Colorless, Light Yellow, Yellow, Dark Yellow Final Clarity, Urine 04/05/2024 08:27:52 Clear Clear Final Glucose [Mass/volume] in Urine by Automated test strip 04/05/2024 08:27:52 50 Abnormal Negative (mg/dL) Final Bilirubin.total [Presence] in Urine by Automated test strip 04/05/2024 08:27:52 Negative Negative Final Ketones [Mass/volume] in Urine by Automated test strip 04/05/2024 08:27:52 Negative Negative (mg/dL) Final Specific gravity, Urine 04/05/2024 08:27:52 1.026 1.003-1.030 Final Hemoglobin [Presence] in Urine by Automated test strip 04/05/2024 08:27:52 Negative Negative Final pH, Urine 04/05/2024 08:27:52 5.5 5.0-7.5 (Units) Final Protein [Mass/volume] in Urine by Automated test strip 04/05/2024 08:27:52 100 Abnormal Negative (mg/dL) Final Urobilinogen [Mass/volume] in Urine by Automated test strip 04/05/2024 08:27:52 Normal Normal (mg/dL) Final Nitrite [Presence] in Urine by Automated test strip 04/05/2024 08:27:52 Negative Negative Final Leukocyte esterase [Presence] in Urine by Automated test strip 04/05/2024 08:27:52 Negative Negative Final RBC, Urine 04/05/2024 08:27:52 0-2 0-2 (/HPF) Final WBC, Urine 04/05/2024 08:27:52 0-2 0-2 (/HPF) Final Bacteria [#/area] in Urine sediment by Microscopy high power field 04/05/2024 08:27:52 0-25 0-25 (/HPF) Final Performing Location [facility] [place] [facility] [address] [facility] [address]
--- OUTSIDE RECORDS SUMMARY | 2024-04-07 09:28 | External Medical Summary | Summary of Care ---
Author Name Unknown Organization [facility] Address [address] [place] [address] Phone [phone] Care Team Providers Care Security Operations Analyst Name Role Phone Declan Dejesus MD Primary Care Provider Encounter Details Date Type Department Care Team (Late st Contact Info) Description 04/05/2024 Telephone [facility] [address] [place] [address] Shira Black MD [address] [place] [address] Allergies Active Allergy Reactions Criticality Noted Date [...] noon and 2 Tablets before bedtime. Active Vitamin C 500 MG Oral Tablet (Ascorbic Acid) Take 1 Tab by mouth daily. 30 Tab Active Aspirin 81 MG Oral Tablet Delayed ReleaseIndication s:Type 2 diabetes mellitus with hemoglobin A1c goal of less than 7.0% (HCC) Take 1 Tablet by mouth in the morning. 30 Tablet 6 3 Active metFORMIN HCl 1000 MG Oral Tablet (Glucophage)Indic ations:Type 2 diabetes mellitus with hemoglobin A1c goal of less than 7.0% (HCC) Take 1 Tablet by mouth in the morning and 1 Tablet before bedtime. With meals.. 180 Tablet 3 02/09/2024 9:03 AM EDT 4 Active Rosuvastatin Calcium 40 MG Oral Tablet (Crestor)Indicati ons:High triglycerides take one tablet by mouth once a day 90 Tablet 3 02/09/2024 9:03 AM EDT 4 Active Dutasteride 0.5 MG Oral Capsule (Avodart)Indicati ons:BPH with obstruction/lower urinary tract symptoms Take 1 [...] 3 02/16/2024 8:03 AM EDT 4 Active Ferrous Sulfate 325 (65 Fe) MG Oral Tablet (Feosol) Take 1 Tablet by mouth in the morning and 1 Tablet in the evening. 180 Tablet 1 4 Active Ferrous Sulfate 325 (65 Fe) MG Oral Tablet (Feosol) Take 1 Tab by mouth daily with breakfast. 30 Tab 06/03 024 Discontin ued(Refil l) documented as of this encounter (statuses as [...] (Sylvia/J&J) 08/19/2020,07/22/2020 Pneumococcal Conjugate Vacci ne, 20-valent ([id number]) 05/20/2023 Pneumococcal Polysaccharide PPV23 (Pneumovax) 03/11/2009,10/11/2008(Deferred: Patient Refused) Seasonal Influenza Vac., MDV , IM, 0.5 mL (Fluzone) 03/07/2016,06/15/2015,07/16/2013,05/17,05/05/2009(Deferred: Patient Refused) Seasonal Influenza, Quadriva lent Hd (Fluzone Hd) 04/04/2023 Seasonal Influenza, Quadrivalent, ID 03/11/2022, 04/16/2021,02/19/2020 TDAP, Age 7 and older, IM (Adacel) 10/11/2008(De jaidend: Patient Refused) Zoster Vaccine Recombinant (Shingrix) 06/10/2023 [...] No 06/23/2023 Does the household have a [facility] source of income? (Household - for [...] PM EST documented as of this encounter Miscellaneous Notes * Telephone Encounter - Shira Black MD - 04/05/2024 4:10 PM EST Most of blood tests are pending But his cell counts showed acute anemia Last year his hb level was more than 13 Now down to 8.9 which is huge drop Wonder if he is taking iron pill ? If not, should start it twice daily Will send out And he had normal colonoscopy this year fortunately But wonder if he has heartburn or reflux, upper abd pain ? documented in this encounter Plan of Treatment Upcoming Encounters Date Type Department Care Team (Bogdan farooq Contact Info) Description 04/20/2024 11:20 AM EST Office Visit Family Practice, Ashleigh Gallegos [address] [place] [address] SeptemberDeclan MD [address] [facility] [address] 04/25/2024 7:15 AM EST Cardiac Studies Cardiac Studies, [facility] [address] [place] [address] 07/24/2024 10:00 AM EDT Nurse Only Ancillary Department, Ashleigh Palmer [address] [place] [address] [place], Nurse Annual Wellness [address] [facility] [place] [address] Scheduled Orders Name Type Priority Associated Diagnoses Orde r Schedule IRON SCREEN, INCLUDING TIBC Lab Routine Anemia, unspecified type Expected: 04/05/2024 (Approximate), Expires: 04/05/2025 VITAMIN B12 Lab Routine Anemia, unspecified type Expected: 04/05/2024 (Approximate), Expires: 04/05/2025 [...] this encounter Medical Devices Implanted Type Area Staff Auditor Device Identifier Shelf Expiration Date Model / Serial / Lot Iol Mx60 14.0 Implanted:Qty: 1 on 10/19/2019 by Ankit Ny MD at [facility] Right: Eye 04/14/2020 MX60 / [id number] / [id number] Implanted:Qty: 1 on 10/30/2019 by Ankit Ny MD at OR [facility] Left: Eye 02/12/2021 [id number] / [id number] / [id number] documented as of this encounter Visit Diagnoses Diagnosis Anemia, unspecified type- Primary documented in this encounter Care Teams Security Operations Analyst Relationship Specialty Start Date End Date September, Declan Person MD [address] [facility] [place] [address] PCP - General Family Medicine 05/20/23 documented as of this encounter
--- OUTSIDE RECORDS SUMMARY | 2024-04-07 09:29 | External Medical Summary | Summary of Care ---
Author Name Unknown Organization [facility] Address [address] [place] [facility] [place] [address] Phone [phone] Care Team Providers Care Accounting Supervisor Name Role Phone Declan Dejesus MD Primary Care Provider [phone] Encounter Details Date Type Department Care Team (Late st Contact Info) Description 03/19/2024 Patient Reported Data Patient Survey Ortho OBERD Allergies Active Allergy Reactions Criticality Noted Date Comments Empagliflozin 10/06/2020 Fungal infection, urinary frequency Lisinopril Cough Nickel Rash 09/13/2011 Tetanus Toxoids Rash 09/13/2011 documented as of this encounter (statuses as of 03/19/2024) Medications Medication Sig Dispensed Refills Start Date End Date Status MULTI VITAMIN MENS PO TABS one by [...] by mouth daily with breakfast. 30 Tab 10/16/2020 Active Vitamin C 500 MG Oral Tablet (Ascorbic Acid) Take 1 Tab by mouth daily. 30 Tab 10/16/2020 Active Aspirin 81 MG Oral Tablet Delayed ReleaseIndications:Ty pe 2 diabetes mellitus with hemoglobin A1c goal of less than 7.0% (HCC) Take 1 Tablet by mouth in the morning. 30 Tablet 6 01/04/2023 Active metFORMIN HCl 1000 MG Oral Tablet (Glucophage)Indicatio ns:Type 2 diabetes mellitus with hemoglobin A1c goal of less than 7.0% (HCC) Take 1 Tablet by mouth in the morning and 1 Tablet before bedtime. With meals.. 180 Tablet 3 05/20/2023 Active Rosuvastatin Calcium 40 MG Oral Tablet (Crestor)Indications: High triglycerides take one tablet by mouth once a day 90 Tablet 3 05/20/2023 Active Dutasteride 0.5 MG Oral Capsule (Avodart)Indications: BPH with obstruction/lower urinary tract symptoms Take 1 Capsule by mouth in the morning. 90 Capsule 3 08/19/2023 Active Glimepiride 2 MG Oral Tablet (Amaryl) TAKE ONE TABLET BY MOUTH DAILY WITH BREAKFAST 90 Tablet 3 11/21/2023 Active Losartan Potassium 50 MG Oral Tablet (Cozaar) Take 1 Tablet by mouth daily. 90 Tablet 1 12/20/2023 Active Tamsulosin HCl 0.4 MG Oral Capsule (Flomax) Take 1 Capsule by mouth at bedtime. 90 Capsule 1 12/20/2023 Active Latanoprost 0.005 % Ophthalmic Solution (Xalatan) Instill 1 drop into both eyes at bedtime 10 mL 3 01/18/2024 Active Timolol Maleate 0.25 % Ophthalmic Solution (Timoptic) Instill 2 Drops into both eyes in the morning. 15 mL 3 02/13/2024 Active documented as of this encounter (statuses as of 03/19/2024) Active Problems Problem Noted Date Diagnosed Date [...] 35.0 to 39.9 with serious comorbidity 10/27/2009 Overview: Per Obesity Protocol, #19 ICD-10 update of inactive diagnosis Type 2 diabetes mellitus wit h hemoglobin A1c goal of less than 7.0% 03/11/2009 Overview: ICD-10 update of inactive term documented as of this encounter (statuses as of 03/19/2024) Resolved Problems Problem Noted Date Diagnosed Date Resolved Date Primary open-angle glaucoma, right eye, moderate stage 10/16/2020 08/15/2023 Overview: Noted on pl as OU moderate Glaucoma 08/27/2013 06/07/2022 Overview: More specific dx on pl HTN, goal below 140/80 07/03/201210/29 Overview: Per HTN Protocol documented as of this encounter (statuses as of 03/19/2024) Immunizations Name Administration Dates Next Due COVID-19 mRNA, LNP-s, No Pre serve, 2-Dose Series (Moderna) 08/19/2020,07/22/2020 COVID-19, MRNA-LNP, PF, 50 M CG/0.5 mL, 12 YRS AND ABOVE, IM (MODERNA-Spikevax) 04/04/2023 COVID-19, mRNA, LNP-s, PF, B ooster, 100mcg/0.5mg (Moderna) 04/16/2021 Covid-19 Ad26, Single Dose (Sylvia/J&J) 08/19/2020,07/22/2020 Pneumococcal Conjugate Vacci ne, 20-valent (Ulglklc48) 05/20/2023 Pneumococcal Polysaccharide PPV23 (Pneumovax) 03/11/2009,10/11/2008(Deferred: Patient [...] seasonally and socially PHQ-2 Answer Date Recorded PHQ-2 Score -1 03/20/2018 Sex and Gender Information Value Date Recorded Sex Assigned at Male 06/23/2023 2:00 PM EST Gender Identity Male 06/23/2023 2:00 PM EST Sexual Orientation Straight 06/23/2023 2: 00 PM EST Job Start Date Occupation Industry Not on file Not on file Not on file documented as of this encounter Plan of Treatment Upcoming Encounters Date Type Department Care Team (Late st Contact Info) Description 04/20/2024 11:20 AM EST Office Visit [facility] [address] [place] [address] September, Declan Person MD [address] [place] [address] 07/24/2024 10:00 AM EDT Nurse Only Ancillary Department, [place] [address] [place] [address] [place], Nurse Annual Wellness [address] [place] [address] Scheduled Procedures Name Priority Associated Diagnoses Date/Ti me COLONOSCOPY FLEXIBLE PROXIMA L DIAGNOSTIC Recall Screening for colon cancer Health Maintenance Due Date Last Done Comments Sigmoidoscopy 1998 Lung Cancer Screening 2003 Albumin/Creatinine Ratio 01/05/2024 023, 07/05/2022, 01/08/2019, Additional history exists Fecal Occult Blood Test 01/14/2024 01/14/20 23, [...] 12/12/2024 12/13/2023, , 07/13/2023, Additional history exists Cologuard 2026 2023, 05/16, [...] this encounter Medical Devices Implanted Type Area Shrinking Machine Operator Device Identifier Shelf Expiration Date Model / Serial / Lot Iol Mx60 14.0 Implanted:Qty: 1 on 10/19/2019 by Ankit Ny MD at OR [facility] Right: Eye 04/14/2020 MX60 / [id number] / [id number] Implanted:Qty: 1 on 10/30/2019 by Ankit Ny MD at OR [facility] Left: Eye 02/12/2021 MX60 / [id number] / [id number] documented as of this encounter Care Teams Accounting Supervisor Relationship Specialty Start Date End Date September, Declan Person MD [address] [place] [address] PCP - General Family Medicine 05/20/23 documented as of this encounter
--- OUTSIDE RECORDS SUMMARY | 2024-04-07 09:29 | External Medical Summary | Summary of Care ---
Author Name Unknown Organization [facility] Address [address] [place] [address] Phone [phone] Care Team Providers Care Package Handler Name Role Phone Declan Dejesus MD Primary Care Provider [phone] Encounter Details Date Type Department Care Team (Late st Contact Info) Description 02/20/2024 Patient Reported Data Patient Survey Ortho OBERD Allergies Active Allergy Reactions Criticality Noted Date Comments Empagliflozin 10/06/2020 Fungal infection, urinary frequency Lisinopril Cough Nickel Rash 09/13/2011 Tetanus Toxoids Rash 09/13/2011 documented as of this encounter (statuses as of 02/20/2024) Medications Medication Sig Dispensed Refills Start Date [...] as of this encounter (statuses as of 02/20/2024) Active Problems Problem Noted Date Diagnosed Date [...] as of this encounter (statuses as of 02/20/2024) Resolved Problems Problem Noted Date Diagnosed Date Resolved Date Primary open-angle glaucoma, right eye, moderate stage 10/16/2020 08/15/2023 Overview: Noted on pl as OU moderate Glaucoma 08/27/2013 06/07/2022 Overview: More specific dx on pl HTN, goal below 140/80 07/03/201210/29 Overview: Per HTN Protocol documented as of this encounter (statuses as of 02/20/2024) Immunizations Name Administration Dates Next Due COVID-19 mRNA, LNP-s, No Pre serve, 2-Dose Series (Moderna) 08/19/2020,07/22/2020 COVID-19, MRNA-LNP, 23-24, P F, 50 MCG/0.5 mL, 12 YRS AND ABOVE, IM (MODERNA-Spikevax) 04/04/2023 COVID-19, mRNA, LNP-s, PF, B ooster, 100mcg/0.5mg (Moderna) 04/16/2021 Covid-19 Ad26, Single Dose (Sylvia/J&J) 08/19/2020,07/22/2020 Pneumococcal Conjugate Vacci ne, 20-valent ([id number]) 05/20/2023 Pneumococcal Polysaccharide PPV23 (Pneumovax) 03/11/2009,10/11/2008(Deferred: Patient [...] Care Team (Late st Contact Info) Description 03/16/2024 10:00 AM EDT Office Visit Orthopaedics [facility] [address] [place] [address] Evens Alas MD [address] [place] [phone] 04/20/2024 11:20 AM EST Office Visit Family [facility], [place] [address] [place] [facility] [place] [address] SeptemberDeclan MD [address] [place] [facility] [place] [address] 07/24/2024 10:00 AM EDT Nurse Only Ancillary Department, [place] [address] [facility] [id number] [place], Nurse Annual Wellness [address] [place] [address] Scheduled Procedures Name Priority Associated Diagnoses Date/Ti [...] Additional history exists AAA Screening Completed 10/18/2018, 060 09/2018, 11/11/2014, Additional history exists Pneumococcal Vaccine: [...] this encounter Medical Devices Implanted Type Area Mds Manager Device Identifier Shelf Expiration Date Model / Serial / Lot Iol Mx60 14.0 Implanted:Qty: 1 on 10/19/2019 by Ankit Ny MD at OR [facility] Right: Eye 04/14/2020 MX60 / [id number] / [id number] Implanted:Qty: 1 on 10/30/2019 by Ankit Ny MD at OR [facility] Left: Eye 02/12/2021 [id number] / [id number] / [id number] documented as of this encounter Care Teams Package Handler Relationship Specialty Start Date End Date September, Declan Person MD [address] [place] [address] PCP - General Family Medicine 05/20/23 documented as of this encounter
--- OUTSIDE RECORDS SUMMARY | 2024-04-07 09:29 | External Medical Summary | Summary of Care ---
Author Name Unknown Organization [facility] Address [address] [place] [facility] [place] [address] Phone [phone] Care Team Providers Care Guide Escort Name Role Phone Declan Dejesus MD Primary Care Provider [phone] Encounter Details Date Type Department Care Team (Late st Contact Info) Description 02/19/2024 Patient Reported Data Patient Survey Ortho OBERD Allergies Active Allergy Reactions Criticality Noted Date Comments Empagliflozin 10/06/2020 Fungal infection, urinary frequency Lisinopril Cough Nickel Rash 09/13/2011 Tetanus Toxoids Rash 09/13/2011 documented as of this encounter (statuses as of 02/19/2024) Medications Medication Sig Dispensed Refills Start Date [...] as of this encounter (statuses as of 02/19/2024) Active Problems Problem Noted Date Diagnosed Date [...] as of this encounter (statuses as of 02/19/2024) Resolved Problems Problem Noted Date Diagnosed Date Resolved Date Primary open-angle glaucoma, right eye, moderate stage 10/16/2020 08/15/2023 Overview: Noted on pl as OU moderate Glaucoma 08/27/2013 06/07/2022 Overview: More specific dx on pl HTN, goal below 140/80 07/03/201210/29 Overview: Per HTN Protocol documented as of this encounter (statuses as of 02/19/2024) Immunizations Name Administration Dates Next Due COVID-19 mRNA, LNP-s, No Pre serve, 2-Dose Series (Moderna) 08/19/2020,07/22/2020 COVID-19, MRNA-LNP, 23-24, P F, 50 MCG/0.5 mL, 12 YRS AND ABOVE, IM (MODERNA-Spikevax) 04/04/2023 COVID-19, mRNA, LNP-s, PF, B ooster, 100mcg/0.5mg (Moderna) 04/16/2021 Covid-19 Ad26, Single Dose (Sylvia/J&J) 08/19/2020,07/22/2020 Pneumococcal Conjugate Vacci ne, 20-valent ([id number]) 05/20/2023 Pneumococcal Polysaccharide PPV23 (Pneumovax) 03/11/2009,10/11/2008(Deferred: Patient [...] 03/16/2024 10:00 AM EDT Office Visit Orthopaedics [facility] [address] [place] [address] Evens Alas MD [address] [place] [address] 04/20/2024 11:20 AM EST Office Visit Family [facility], [place] [address] [place] [facility] [place] [address] SeptemberDeclan MD [address] [place] [facility] [place] [address] 07/24/2024 10:00 AM EDT Nurse Only Ancillary Department, [place] [address] [facility] [phone] [place], Nurse Annual Wellness [address] [place] [address] Scheduled Procedures Name Priority Associated Diagnoses Date/Ti [...] this encounter Medical Devices Implanted Type Area Splunk Dashboard Developer Device Identifier Shelf Expiration Date Model / Serial / Lot Iol Mx60 14.0 Implanted:Qty: 1 on 10/19/2019 by Ankit Ny MD at OR [facility] Right: Eye 04/14/2020 MX60 / [id number] / [id number] Implanted:Qty: 1 on 10/30/2019 by Ankit Ny MD at OR [facility] Left: Eye 02/12/2021 [id number] / [id number] / [id number] documented as of this encounter Care Teams Guide Escort Relationship Specialty Start Date End Date September, Declan Person MD [address] [place] [address] PCP - General Family Medicine 05/20/23 documented as of this encounter
--- OUTSIDE RECORDS SUMMARY | 2024-04-07 09:29 | External Medical Summary ---
Author Name Unknown Address Unknown Organization K1H:LAB[facility]ATORY [facility] - [address] [place] [address] Laboratory Report Ordering Provider Test Date Status APOLLOJOSE LUIS 03/26/2024 14:58:00 Final Normal: <30 mg/g creatinine< br/>High: 30-300 mg/g creatinine
Very High: >300 mg/g creatinine
Nephrotic: >2200 mg/g creatinine Observation Date Value Abnormality Reference (Units ) Status Albumin, Urine 03/26/2024 14:58:00 68.00 (mg/d L) Final This testing was performed a s part of a [facility] fulfillment initiative Creatinine, Urine 03/26/2024 14:58:00 121 (m g/dL) Final Albumin/Creatinine [Mass Ratio] in Urine 03/26/2024 14:58:00 562 Above high normal <30 (mg/g Creat) Final Performing Location [facility] - [address] [facility] [address]
--- OUTSIDE RECORDS SUMMARY | 2024-04-07 09:29 | External Medical Summary | Summary of Care ---
Author Name Unknown Organization [facility] Address [address] [facility] [place] [address] Phone [phone] Care Team Providers Care Research Geneticist Name Role Phone Declan Dejesus MD Primary [...] (Sylvia/J&J) 08/19/2020,07/22/2020 Pneumococcal Conjugate Vacci ne, 20-valent ([id number]) 05/20/2023 Pneumococcal Polysaccharide PPV23 (Pneumovax) 03/11/2009,10/11/2008(Deferred: Patient [...] 03/16/2024 10:00 AM EDT Office Visit Orthopaedics [facility] [address] [place] [address] Evens Alas MD [address] [place] [address] 04/20/2024 11:20 AM EST Office Visit [facility], [place] [address] [place] [facility] [place] [address] SeptemberDeclan MD [address] [place] [facility] [place] [facility] [place] [address] 07/24/2024 10:00 AM EDT Nurse Only Ancillary Department, [place] [address] [facility] [phone] [place], Nurse Annual Wellness [address] [place] [address] Scheduled Procedures Name Priority Associated Diagnoses Date/Ti [...] this encounter Medical Devices Implanted Type Area Academic Affairs Specialist Device Identifier Shelf Expiration Date Model / Serial / Lot Iol Mx60 14.0 Implanted:Qty: 1 on 10/19/2019 by Ankit Ny MD at OR [facility] Right: Eye 04/14/2020 MX60 / [id number] / [id number] Implanted:Qty: 1 on 10/30/2019 by Ankit Ny MD at OR [facility] Left: Eye 02/12/2021 [id number] / [id number] / [id number] documented as of this encounter Care Teams Research Geneticist Relationship Specialty Start Date End Date September, Declan Person MD [address] [place] [address] PCP - General Family Medicine 05/20/23 documented as of this encounter
--- OUTSIDE RECORDS SUMMARY | 2024-04-07 09:29 | External Medical Summary | Summary of Care ---
Author Name Unknown Organization [facility] Address [address] [facility] [place] [address] Phone [phone] Care Team Providers Care Traffic Investigator Name Role Phone Declan Dejesus MD Primary [...] (Sylvia/J&J) 08/19/2020,07/22/2020 Pneumococcal Conjugate Vacci ne, 20-valent ([id number]) 05/20/2023 Pneumococcal Polysaccharide PPV23 (Pneumovax) 03/11/2009,10/11/2008(Deferred: Patient [...] 03/16/2024 10:00 AM EDT Office Visit Orthopaedics [facility] [address] [place] [address] Evens Alas MD [address] [place] [address] 04/20/2024 11:20 AM EST Office Visit Family [facility], [place] [address] [place] [facility] [address] SeptemberDeclan MD [address] [place] [facility] [place] [address] 07/24/2024 10:00 AM EDT Nurse Only Ancillary Department, [place] [address] [facility] [phone] [place], Nurse Annual Wellness [address] [place] [facility] [place] [address] Scheduled Procedures Name Priority Associated Diagnoses Date/Ti [...] this encounter Medical Devices Implanted Type Area Tubing Tester Device Identifier Shelf Expiration Date Model / Serial / Lot Iol Mx60 14.0 Implanted:Qty: 1 on 10/19/2019 by Ankit Ny MD at OR [facility] Right: Eye 04/14/2020 MX60 / [id number] / [id number] Implanted:Qty: 1 on 10/30/2019 by Ankit Ny MD at OR [facility] Left: Eye 02/12/2021 [id number] / [id number] / [id number] documented as of this encounter Care Teams Traffic Investigator Relationship Specialty Start Date End Date September, Declan Person MD [address] [place] [address] PCP - General Family Medicine 05/20/23 documented as of this encounter
--- OUTSIDE RECORDS SUMMARY | 2024-04-07 09:29 | External Medical Summary | Summary of Care ---
Author Name Unknown Organization [facility] Address [address] [place] [facility] [place] [address] Phone [phone] Care Team Providers Care Equine Internship Name Role Phone Declan Dejesus MD Primary Care Provider [phone] Encounter Details Date Type Department Care Team [...] (Sylvia/J&J) 08/19/2020,07/22/2020 Pneumococcal Conjugate Vacci ne, 20-valent ([id number]) 05/20/2023 Pneumococcal Polysaccharide PPV23 (Pneumovax) 03/11/2009,10/11/2008(Deferred: Patient [...] 03/16/2024 10:00 AM EDT Office Visit Orthopaedics [facility] [address] [place] [address] Evens Alas MD [address] [place] [address] 04/20/2024 11:20 AM EST Office Visit Family [facility], [place] [address] [facility] [place] [address] SeptemberDeclan MD [address] [place] [facility] [place] [address] 07/24/2024 10:00 AM EDT Nurse Only Ancillary Department, [place] [address] [facility] [phone] [place], Nurse Annual Wellness [address] [place] [address] Scheduled Procedures Name Priority Associated Diagnoses Date/Ti [...] encounter Medical Devices Implanted Type Area Environmental Manager Device Identifier Shelf Expiration Date Model / Serial / Lot Iol Mx60 14.0 Implanted:Qty: 1 on 10/19/2019 by Ankit Ny MD at OR [facility] Right: Eye 04/14/2020 MX60 / [id number] / [id number] Implanted:Qty: 1 on 10/30/2019 by Ankit Ny MD at OR [facility] Left: Eye 02/12/2021 [id number] / [id number] / [id number] documented as of this encounter Care Teams Equine Internship Relationship Specialty Start Date End Date September, Declan Person MD [address] [place] [address] PCP - General Family Medicine 05/20/23 documented as of this encounter
--- OUTSIDE RECORDS SUMMARY | 2024-04-07 09:29 | External Medical Summary | Summary of Care ---
Author Name Unknown Organization [facility] Address [address] [place] [address] Phone [phone] Care Team Providers Care Data Migration Lead Name Role Phone Declan Dejesus MD Primary Care Provider [phone] Reason for Visit * Reason Onset Date Comments Order Request 02/03/2024 Encounter Details Date Type Department Care Team (Late st Contact Info) Description 02/03/2024 Telephone [facility] [address] [place] [address] Declan Dejesus MD [address] [place] [address] Order Request Allergies Active Allergy Reactions Criticality Noted Date Comments Empagliflozin 10/06/2020 Fungal infection, urinary frequency Lisinopril Cough Nickel Rash 09/13/2011 Tetanus Toxoids Rash 09/13/2011 documented as of this encounter (statuses as of 02/08/2024) Medications Medication Sig Dispensed Refills Start Date [...] by mouth daily. 30 Tab 10/16/2020 Active Timolol Maleate 0.25 % Ophthalmic Solution (Timoptic) Instill 2 Drops into both eyes in the morning. 15 mL 3 01/04/2023 Active Aspirin 81 MG Oral Tablet Delayed [...] at bedtime 10 mL 3 01/18/2024 Active documented as of this encounter (statuses as of 02/08/2024) Active Problems Problem Noted Date Diagnosed Date [...] as of this encounter (statuses as of 02/08/2024) Resolved Problems Problem Noted Date Diagnosed Date Resolved Date Primary open-angle glaucoma, right eye, moderate stage 10/16/2020 08/15/2023 Overview: Noted on pl as OU moderate Glaucoma 08/27/2013 06/07/2022 Overview: More specific dx on pl HTN, goal below 140/80 07/03/201210/29 Overview: Per HTN Protocol documented as of this encounter (statuses as of 02/08/2024) Immunizations Name Administration Dates Next Due COVID-19 mRNA, LNP-s, No Pre serve, 2-Dose Series (Moderna) 08/19/2020,07/22/2020 COVID-19, MRNA-LNP, 23-24, P F, 50 MCG/0.5 mL, 12 YRS AND ABOVE, IM (MODERNA-Spikevax) 04/04/2023 COVID-19, mRNA, LNP-s, PF, B ooster, 100mcg/0.5mg (Moderna) 04/16/2021 Covid-19 Ad26, Single Dose (Sylvia/J&J) 08/19/2020,07/22/2020 Pneumococcal Conjugate Vacci ne, 20-valent ([id number]) 05/20/2023 Pneumococcal Polysaccharide PPV23 (Pneumovax) 03/11/2009,10/11/2008(Deferred: Patient Refused) Seasonal Influenza, Quadriva lent Hd (Fluzone Hd) 04/04/2023 Seasonal Influenza, Quadrivalent, ID 03/11/2022, 04/16/2021,02/19/2020 Seasonal Influenza, Trivalen t, (IIV3), with Preserv, (Fluzone) 03/07/2016,06/15/2015,07/16/2013,05/17,05/05/2009(Deferred: Patient Refused) TDAP, Age 7 and older, IM (Adacel) [...] on file documented as of this encounter Miscellaneous Notes * Telephone Encounter - Lori Givens LPN - 02/08/2024 3:25 PM EDT Please see MyG message * Telephone Encounter - Hannah Mcintosh LPN - 02/03/2024 10:36 AM EDT Patient aware and verbalized understanding, will comply. * Telephone Encounter - Raeann Crenshaw DO - 02/03/2024 10:22 AM EDT Xray ordered * Telephone Encounter - Karla Oneill LPN - 02/03/2024 9:36 AM EDT Pt is requesting an Xray of Right Shoulder and Ar. Please advise. * Telephone Encounter - Fatou Lane OSA - 02/03/2024 9:06 AM EDT An order was requested for this patient. Name of Requesting Provider: DR Dejesus Order Requested: Xray of Right Shoulder and Arm Diagnosis/Reason for Request: Pt fell on 01/30/24 What location AND department does the patient wish to have their order completed at? [facility] Fax Number, if applicable: If the caller is not a current patient, please advise the patient to call their current PCP to havethe order's prior to being seen in our office. The patient was informed that our providers would not order anything (medication, labs, etc.) prior to being seen. documented in this encounter Plan of Treatment Upcoming Encounters Date Type Department Care Team (Late st Contact Info) Description 03/16/2024 10:00 AM EDT Office Visit Orthopaedics [facility] [address] [address] Evens Alas MD [address] [phone] 04/20/2024 11:20 AM EST [facility] [place] [address] [facility] [phone] Declan [facility]jesus [facility] [address] [facility] [address] 07/24/2024 10:00 AM EDT Nurse Only Ancillary Department, [place] [address] [address] [place], Nurse [facility] [address] [address] Scheduled Procedures Name Priority Associated Diagnoses Date/Ti [...] this encounter Medical Devices Implanted Type Area Hot Metal Mixer Operator Helper Device Identifier Shelf Expiration Date Model / Serial / Lot Iol Mx60 14.0 Implanted:Qty: 1 on 10/19/2019 by Ankit Ny MD at OR [facility] Right: Eye 04/14/2020 MX60 / [id number] / [id number] Implanted:Qty: 1 on 10/30/2019 by Ankit Ny MD at OR [facility] Left: Eye 02/12/2021 MX60 / [id number] / [id number] documented as of this encounter Procedures Procedure Name Priority Date/Time Associated Diagnosis Comments XR SHOULDER, 2 OR MORE VIEWS Routine 02/03/2024 12:01 PM EDT Pain of right upper extremity documented in this encounter Results * XR SHOULDER, 2 OR MORE VIEWS (02/03/2024 12:01 PM EDT) Anatomical Region Laterality Modality Upper Extremity, Shoulder Digita l Radiography 02/05/2024 9:03 AM EDT Narrative 02/05/2024 9:01 AM EDT EXAM: RT XR SHOULDER, 2 OR MORE VIEWS HISTORY: right arm pain COMPARISON:- FINDINGS / IMPRESSION: No acute displaced fracture or dislocation. Suture anchors in the right shoulder. Degenerative change of the AC joint. Procedure Note Paul Bruno MD - 02/05/2024 EXAM: RT XR SHOULDER, 2 OR MORE VIEWS HISTORY: right arm pain COMPARISON:- FINDINGS / IMPRESSION: No acute displaced fracture or dislocation. Suture anchors in the rightshoulder. Degenerative change of the AC joint. Raeann Crenshaw DO RADIOLOGY (RAD GENER AL) documented in this encounter Visit Diagnoses Diagnosis Pain of right upper extremity- Primary documented in this encounter Care Teams Data Migration Lead Relationship Specialty Start Date End Date September, Declan Perosn MD [address] [place] [address] PCP - General Family Medicine 05/20/23 documented as of this encounter
--- OUTSIDE RECORDS SUMMARY | 2024-04-07 09:29 | External Medical Summary | Summary of Care ---
Author Name Unknown Organization [facility] Address [address] [place] [facility] [place] [address] Phone [phone] Care Team Providers Care Production Solderer Name Role Phone Declan Dejesus MD Primary Care Provider [phone] Encounter Details Date Type Department Care Team [...] (Sylvia/J&J) 08/19/2020,07/22/2020 Pneumococcal Conjugate Vacci ne, 20-valent ([id number]) 05/20/2023 Pneumococcal Polysaccharide PPV23 (Pneumovax) 03/11/2009,10/11/2008(Deferred: Patient [...] 03/16/2024 10:00 AM EDT Office Visit Orthopaedics [facility] [address] [place] [address] Evens Alas MD [address] [place] [phone] 04/20/2024 11:20 AM EST Office Visit Family [facility], [place] [address] [place] [facility] [place] [address] SeptemberDeclan MD [address] [place] [facility] [place] [address] 07/24/2024 10:00 AM EDT Nurse Only Ancillary Department, [place] [address] [facility] [phone] [place], Nurse [facility] [address] [place] [address] Scheduled Procedures Name Priority Associated Diagnoses Date/Ti [...] this encounter Medical Devices Implanted Type Area Cable Puller Device Identifier Shelf Expiration Date Model / Serial / Lot Iol Mx60 14.0 Implanted:Qty: 1 on 10/19/2019 by Ankit Ny MD at OR [facility] Right: Eye 04/14/2020 MX60 / [id number] / [id number] Implanted:Qty: 1 on 10/30/2019 by Ankit Ny MD at OR [facility] Left: Eye 02/12/2021 MX60 / [id number] / [id number] documented as of this encounter Care Teams Production Solderer Relationship Specialty Start Date End Date September, Declan Person MD [address] [place] [address] PCP - General Family Medicine 05/20/23 documented as of this encounter
--- OUTSIDE RECORDS SUMMARY | 2024-04-07 09:29 | External Medical Summary | Summary of Care ---
Author Name Unknown Organization [facility] Address [address] [place] [address] Phone [phone] Care Team Providers Care Assistant Professor Of Surgery Name Role Phone Declan Dejesus MD Primary Care Provider [phone] Reason for Visit * Reason Onset Date Comments Order Request 02/03/2024 Encounter Details Date Type Department Care Team (Late st Contact Info) Description 02/03/2024 Telephone [facility] [address] [place] [facility] [place] [address] SeptemberDeclan MD [address] [place] [address] Order Request Allergies Active Allergy Reactions Criticality Noted Date Comments Empagliflozin 10/06/2020 Fungal infection, urinary frequency Lisinopril Cough Nickel Rash 09/13/2011 Tetanus Toxoids Rash 09/13/2011 documented as of this encounter (statuses as of 02/03/2024) Medications Medication Sig Dispensed Refills Start Date [...] as of this encounter (statuses as of 02/03/2024) Active Problems Problem Noted Date Diagnosed Date [...] as of this encounter (statuses as of 02/03/2024) Resolved Problems Problem Noted Date Diagnosed Date Resolved Date Primary open-angle glaucoma, right eye, moderate stage 10/16/2020 08/15/2023 Overview: Noted on pl as OU moderate Glaucoma 08/27/2013 06/07/2022 Overview: More specific dx on pl HTN, goal below 140/80 07/03/201210/29 Overview: Per HTN Protocol documented as of this encounter (statuses as of 02/03/2024) Immunizations Name Administration Dates Next Due COVID-19 mRNA, LNP-s, No Pre serve, 2-Dose Series (Moderna) 08/19/2020,07/22/2020 COVID-19, MRNA-LNP, 23-24, P F, 50 MCG/0.5 mL, 12 YRS AND ABOVE, IM (MODERNA-Spikevax) 04/04/2023 COVID-19, mRNA, LNP-s, PF, B ooster, 100mcg/0.5mg (Moderna) 04/16/2021 Covid-19 Ad26, Single Dose (Sylvia/J&J) 08/19/2020,07/22/2020 Pneumococcal Conjugate Vacci ne, 20-valent ([id number]) 05/20/2023 Pneumococcal Polysaccharide PPV23 (Pneumovax) 03/11/2009,10/11/2008(Deferred: Patient [...] encounter Miscellaneous Notes * Telephone Encounter - Hannah Mcintosh LPN [...] wish to have their order completed at? [facility] Fax Number, if applicable: If the caller [...] Description 04/20/2024 11:20 AM EST Office Visit [facility] [place] [address] [place] [address] SeptemberDeclan MD [address] [place] [address] 07/24/2024 10:00 AM EDT Nurse Only Ancillary Department, [place] [address] [place] [address] [place], Nurse [facility] [address] [place] [address] Scheduled Orders Name Type Priority Associated Diagnoses Orde r Schedule XR SHOULDER, 2 OR MORE VIEWS Medical Imaging Routine Pain of right upper extremity Ordered: 02/03/2024 Scheduled Procedures Name Priority Associated Diagnoses Date/Ti [...] this encounter Medical Devices Implanted Type Area Business Office Director Device Identifier Shelf Expiration Date Model / Serial / Lot Iol Mx60 14.0 Implanted:Qty: 1 on 10/19/2019 by Ankit Ny MD at OR [facility] Right: Eye 04/14/2020 MX60 / [id number] / [id number] Implanted:Qty: 1 on 10/30/2019 by Ankit Ny MD at OR [facility] Left: Eye 02/12/2021 MX60 / [id number] / [id number] documented as of this encounter Visit Diagnoses Diagnosis Pain of right upper extremity- Primary documented in this encounter Care Teams Assistant Professor Of Surgery Relationship Specialty Start Date End Date September, Declan Person MD [address] [place] [address] PCP - General Family Medicine 05/20/23 documented as of this encounter
--- OUTSIDE RECORDS SUMMARY | 2024-04-07 09:29 | External Medical Summary | Summary of Care ---
Author Name Unknown Organization [facility] Address [address] [facility] [address] Phone [phone] Care Team Providers Care Demurrage Clerk Name Role Phone Declan Dejesus MD Primary Care Provider [phone] Encounter Details Date Type Department Care Team [...] (Sylvia/J&J) 08/19/2020,07/22/2020 Pneumococcal Conjugate Vacci ne, 20-valent ([id number]) 05/20/2023 Pneumococcal Polysaccharide PPV23 (Pneumovax) 03/11/2009,10/11/2008(Deferred: Patient [...] 03/16/2024 10:00 AM EDT Office Visit Orthopaedics [facility] [address] [place] [address] Evens Alas MD [address] [place] [address] 04/20/2024 11:20 AM EST Office Visit Family [facility], [place] [address] [place] [facility] [place] [address] SeptemberDeclan MD [address] [place] [facility] [place] [address] 07/24/2024 10:00 AM EDT Nurse Only Ancillary Department, [place] [address] [address] [facility] [phone] [place], Nurse Annual Wellness [address] [place] [facility] [place] [place] [address] Scheduled Procedures Name Priority Associated Diagnoses Date/Ti [...] this encounter Medical Devices Implanted Type Area Collar Baster Device Identifier Shelf Expiration Date Model / Serial / Lot Iol Mx60 14.0 Implanted:Qty: 1 on 10/19/2019 by Ankit Ny MD at OR [facility] Right: Eye 04/14/2020 MX60 / [id number] / [id number] Implanted:Qty: 1 on 10/30/2019 by Ankit Ny MD at OR [facility] Left: Eye 02/12/2021 MX60 / [id number] / [id number] documented as of this encounter Care Teams Demurrage Clerk Relationship Specialty Start Date End Date September, Declan Person MD [address] [place] [address] PCP - General Family Medicine 05/20/23 documented as of this encounter
--- OUTSIDE RECORDS SUMMARY | 2024-04-07 09:29 | External Medical Summary | Summary of Care ---
Author Name Unknown Organization [facility] Address [address] [place] [address] Phone [phone] Care Team Providers Care Hazmat Technician Name Role Phone Kole Estrada MD Primary Care Provider [phone] Reason for Visit * Reason Comments Medication Refill Encounter Details Date Type Department Care Team (Late st Contact Info) Description 02/13/2024 Refill [facility] [address] [place] [phone] SeptemberKole MD [address] [place] [address] Allergies Active Allergy Reactions Criticality Noted Date Comments Empagliflozin 10/06/2020 Fungal infection, urinary frequency Lisinopril Cough Nickel Rash 09/13/2011 Tetanus Toxoids Rash 09/13/2011 documented as of this encounter (statuses as of 02/13/2024) Medications Medication Sig Dispensed Refills Start Date [...] Active Aspirin 81 MG Oral Tablet Delayed ReleaseIndications: Type 2 diabetes mellitus with hemoglobin A1c goal of less than 7.0% (HCC) Take 1 Tablet by mouth in the morning. 30 Tablet 6 01/04/2023 Active metFORMIN HCl 1000 MG Oral Tablet (Glucophage)Indicat ions:Type 2 diabetes mellitus with hemoglobin A1c goal of less than 7.0% (HCC) Take 1 Tablet by mouth in the morning and 1 Tablet before bedtime. With meals.. 180 Tablet 3 05/20/2023 Active Rosuvastatin Calcium 40 MG Oral Tablet (Crestor)Indication s:High triglycerides take one tablet by mouth once a day 90 Tablet 3 05/20/2023 Active Dutasteride 0.5 MG Oral Capsule (Avodart)Indication s:BPH with obstruction/lower urinary tract symptoms Take 1 [...] the morning. 15 mL 3 02/13/2024 Active Timolol Maleate 0.25 % Ophthalmic Solution (Timoptic) Instill 2 Drops into both eyes in the morning. 15 mL 3 01/04/2023 Discontinue d(Refill) documented as of this encounter (statuses as of 02/13/2024) Active Problems Problem Noted Date Diagnosed Date [...] as of this encounter (statuses as of 02/13/2024) Resolved Problems Problem Noted Date Diagnosed Date Resolved Date Primary open-angle glaucoma, right eye, moderate stage 10/16/2020 08/15/2023 Overview: Noted on pl as OU moderate Glaucoma 08/27/2013 06/07/2022 Overview: More specific dx on pl HTN, goal below 140/80 07/03/201210/29 Overview: Per HTN Protocol documented as of this encounter (statuses as of 02/13/2024) Immunizations Name Administration Dates Next Due COVID-19 mRNA, LNP-s, No Pre serve, 2-Dose Series (Moderna) 08/19/2020,07/22/2020 COVID-19, MRNA-LNP, 23-24, P F, 50 MCG/0.5 mL, 12 YRS AND ABOVE, IM (MODERNA-Spikevax) 04/04/2023 COVID-19, mRNA, LNP-s, PF, B ooster, 100mcg/0.5mg (Moderna) 04/16/2021 Covid-19 Ad26, Single Dose (Sylvia/J&J) 08/19/2020,07/22/2020 Pneumococcal Conjugate Vacci ne, 20-valent (Judrjno16) 05/20/2023 Pneumococcal Polysaccharide PPV23 (Pneumovax) 03/11/2009,10/11/2008(Deferred: Patient [...] encounter Miscellaneous Notes * Telephone Encounter - Kole Estrada MD - 02/13/2024 1:30 PM EDTSigned Prescriptions: Disp Refills Timolol Maleate 0.25 % Ophthalmic Solution*15 mL 3 Sig: Instill 2 Drops into both eyes in the morning. Authorizing Provider: KOLE ESTRADA * Telephone Encounter - Nabor Du, MED ASSIST - 02/13/2024 9:59 AM EDT Pending Prescriptions: Disp Refills Timolol Maleate 0.25 % Ophthalmic Solution*15 mL 3 Sig: Instill2 Drops into both eyes in the morning. documented in this encounter Plan of Treatment Upcoming Encounters Date Type Department Care Team (Late st Contact Info) Description 03/16/2024 10:00 AM EDT Office Visit [facility] [address] [facility] [place] [address] Evens Alas MD [address] [place] [phone] 04/20/2024 11:20 AM EST Office Visit [place] [address] [facility] [phone] SeptemberKole MD [address] [facility] [place] [address] 07/24/2024 10:00 AM EDT Nurse Only Ancillary Department, [place] [address] [facility] [place] [address] [place] Nurse Annual [facility]ness [address] [place] [facility] [place] [address] Scheduled Procedures Name Priority Associated Diagnoses Date/Ti [...] this encounter Medical Devices Implanted Type Area Fur Finisher Device Identifier Shelf Expiration Date Model / Serial / Lot Iol Mx60 14.0 Implanted:Qty: 1 on 10/19/2019 by Ankit Ny MD at OR [facility] Right: Eye 04/14/2020 MX60 / [id number] / [id number] Implanted:Qty: 1 on 10/30/2019 by Ankit Ny MD at OR [facility] Left: Eye 02/12/2021 MX60 / [id number] / [id number] documented as of this encounter Care Teams Hazmat Technician Relationship Specialty Start Date End Date September, Kole Person MD [address] [place] [address] PCP - General Family Medicine 05/20/23 documented as of this encounter
--- OUTSIDE RECORDS SUMMARY | 2024-04-07 09:29 | External Medical Summary | Summary of Care ---
Author Name Unknown Organization [facility] Address [address] [place] [facility] [place] [address] Phone [phone] Care Team Providers Care General Office Worker Name Role Phone Declan Dejesus MD Primary Care Provider [phone] Reason for Referral * Evaluate & Treat - Unlimited Visits (Within 30 days (routine)) - Authorized Specialty Diagnoses / Procedures Referred By Александр woo Referred To Contact Orthopaedic Surgery / Orthopedics Diagnoses Injury of right rotator cuff, initial encounter Sharer, Angela Ross PA-C [address] [place] [address] Good Aviles MD Referral ID Status Reason Start Date Expiration Date Visits Requested Visits Authorized [id number] Authorized Specialty Services Required 02/03/2024 999 [id number] Question Answer Referral Priority Within 30 days (routine) Where should this appointment be scheduled? [facility] What body part is the patient being seen for? Shoulder What condition is the patient being seen for? Sprain/Strain/Tear/Other * Evaluate & Treat - Unlimited Visits (Within 10 days (routine)) - Authorized Specialty Diagnoses / Procedures Referred By Александр woo Referred To Contact Physical Therapy / Physical Medicine And Rehab Diagnoses Injury of right rotator cuff, initial encounter Sharer, Angela Ross PA-C [address] [place] [address] Referral ID Status Reason Start Date Expiration Date Visits Requested Visits Authorized [id number] Authorized Specialty Services Required 02/03/[phone] Question Answer Referral Priority Within 10 days (routine) Where should this appointment be scheduled? [facility] Rotator cuff program with scapular stabilization and theraband home exercise program 2x week for 6 weeks Reason for Visit * Reason Comments NEW PATIENT Right shoulder Encounter Details Date Type Department Care Team (Late st Contact Info) Description 02/03/2024 12:15 PM EDT Office Visit Orthopaedics [facility] [address] [place] [address] Sharer, Angela Ross PA-C [address] [place] [address] Injury of right rotator cuff, initial encounter* Allergies Active Allergy Reactions Criticality Noted Date [...] hemoglobin A1c goal of less than 7.0% ([facility]) Take 1 Tablet by mouth in the [...] 05/20/2023 S/P total knee replacement, right 10/09/2020 REMBETRO on CPAP 10/09/2020 Iron deficiency anemia due [...] (Sylvia/J&J) 08/19/2020,07/22/2020 Pneumococcal Conjugate Vacci ne, 20-valent ([id number]) 05/20/2023 Pneumococcal Polysaccharide PPV23 (Pneumovax) 03/11/2009,10/11/2008(Deferred: Patient Refused) Seasonal Influenza, Quadriva lent Hd (Fluzone Hd) 04/04/2023 Seasonal Influenza, Quadrivalent, ID 03/11/2022, 04/16/2021,02/19/2020 Seasonal Influenza, Trivalen t, (IIV3), with Preserv, (Fluzone) 03/07/2016,06/15/2015,07/16/2013,05/17,05/05/2009(Deferred: Patient Refused) TDAP, Age 7 and older, IM (Adacel) 10/11/2008([facility]: Patient Refused) Zoster Vaccine Recombinant (Shingrix) 06/10/2023 [...] on file documented as of this encounter Progress Notes * Sharer, Angela Ross PA-C - 02/03/2024 12:45 PM EDT Rafael Cantu is a 68 year old male who presents for consultation to [facility] for right shoulder injury/pain. Consult requested by Raeann Crenshaw DO. Subjective: Rafael Cantu reports that right shoulder pain started after a fall in October. Patient states he fellagain on Tuesday re-injured the shoulder. He complains of pain along the anterior right shoulder. Complains difficulty with day-to-day activities. Notes pain with reaching overhead or reaching behind.Complains of weakness in his shoulder. He denies any neck pain, numbness, tingling. History of rotator cuff [place] [address] Aviles Review of systems: All others negative except those noted above in HPI. Review of patient's allergies indicates: Allergen Reactions Empagliflozin Fungal infection, urinary frequency Lisinopril Cough Nickel Rash Tetanus Toxoids Rash Current Outpatient Medications Medication Sig Dispense Refill [...] Tab by mouth daily. 30 Tab 0 Timolol Maleate 0.25 % Ophthalmic Solution (Timoptic) Instill 2 Drops into both eyes in the morning. 15 mL 3 Aspirin 81 MG Oral Tablet Delayed Release [...] both eyes at bedtime 10 mL 3 No current facility-administered medications for [...] Laterality Date ARTHROPLASTY KNEE TOTAL Right 10/01/2020 [facility] [address]. Sinclair CARDIAC SURGERY PROCEDURE NEC cardiac cath 2016 COLONOSCOPY, DIAGNOSTIC (RECTUM) 07/13/2016 adenomatous polyp, repeat 3 yrs/[facility] COLONOSCOPY, DIAGNOSTIC (RECTUM) N/A 06/29/2023 sigmoid diverticulosis/hemorrhoids/recall 5 years/Colonoscopy/CO COLORECTAL CANCER SCREEN; NOT AT RISK 12/07/2011 COLONOSCOPY CA SCRN NOT HI RSK performed by Julissa Vinson DO at ENDOSCOPY [facility] CORONARY ANGIOGRAPHY W/LEFT HEART CATH Right 08/16/2016 CORONARY ANGIOGRAPHY W/LEFT HEART CATH performed by Khang Mir MD at CARDIAC LABS [facility] EGD, FLEXIBLE, DIAGNOSTIC 07/13/2016 Barretts, repeat 3 yrs/[facility] MISCELLANEOUS ORDER ([facility] ONLY) left wrist fracture and surgical repair MISCELLANEOUS ORDER ([facility] ONLY) ACT 112 signed, 08/10/2018 PARTIAL REMOVAL OF EYE FLUID Right 08/21/2018 23G PPV/MP for ERM with VMT OD, Dr. Johnston RELIEVE INNER EYE PRESSURE Right 10/19/2019 right GONIOTOMY performed by Ankit Ny MD at OR [facility] RELIEVE INNER EYE PRESSURE Left 10/30/2019 left GONIOTOMY performed by Ankit Ny MD at OR [facility] REMOVAL OF ADENOIDS, AGE 12+ REMOVAL OF TONSILS, UNDER AGE 12 REMOVE CATARACT, INSERT LENS PROSTH Right 10/19/2019 right EXTRACAPSULAR CATARACT REMOVAL WITH INTRAOCULAR LENS performed by Ankit Ny MD at OR [facility] REMOVE CATARACT, INSERT LENS PROSTH Left 10/30/2019 left EXTRACAPSULAR CATARACT REMOVAL WITH INTRAOCULAR LENS performed by Ankit Ny MD at OR [facility] SHOULDER SURGERY PROCEDURE NEC 2003, 2008 left then right rotator cuff Social History Socioeconomic History Marital status: Spouse name: Not on file Number of children: Not on file Years of education: Not on file Highest education level: Not on file Occupational History Not on file Tobacco Use Smoking status: Former Current packs/day: 0.00 Average packs/day: 2.0 packs/day for 30.0 years (60.0 ttl pk-yrs) Types: Cigarettes Start date: 12/03/1982 Quit date: 12/03/2012 Years since quittin.1 Smokeless tobacco: Never Vaping Use Vaping status: [...] Belt Yes Self-Exams No Social History Narrative Stamp Classifier Social Determinants of Health Financial Resource Strain: High Risk (06/23/2023) Financial [...] Stability Do you currently live in a [place] care facility or have no steady place to sleep [...] - for ages0-17 years): Not on file Family History Problem Relation Name Age of Onset Cancer Mother Cancer Stroke Father prostate cancer Diabetes Sister Diabetes Grandmother (Maternal) Eye Problems None Denies family hx of AMD, RD, glaucoma, or blindness Heart Disorder None Hypertension None Thyroid Disorder None Family History; none relevant to acute HPI 02/03/2024 Objective: Physical Exam There were no vitals filed for this visit. Estimated body mass index is 35.37 kg/m as calculated from the following: Height as of 07/20/23: 1.765 m (5' 9.5"). Weight as of 10/19/23: 110.2 kg (243 lb). General: generally well-nourished and in no acute distress HEENT: normocephalic, atraumatic, sclera anicteric Psych: mood and affect normal , cooperative Card: Peripheral pulses: normal in affected extremity (s) Resp: equal chest rise, non-tachypneic, non-labored breathing Skin: no rash, normal Neuro: Coordination: normal; Sensation: normal on affected extremity (s) MSK: Shoulder exam, bilateral Inspection: Faint ecchymosis along anterior upper arm. Palpation: tender to palpation at supraspinatous right and tender to palpation at Biceps tendon right Shoulder glenohumeral ACTIVE range of motion: ABD (100') - Bilateral and equal ER (90') - Bilateral and equal IR (60') - Bilateral and equal FF (110') - Bilateral and equal Strength and cuff tests: supraspinatous (empty can): Right - 4/5 Left - 5/5 infraspinatous/teres minor (resisted external rotation): Right - 4/5 Left - 5/5 subscapularis (resisted internal rotation): Right - 5/5 Left - 5/5 drop arm: negative Bilateral Impingment tests: Neer positive Right Hawkin's sign positive Right Acromioclavicular joint: crossed arm negative Bilateral Biceps and labral tests: speed (biceps) positive Right Scapula exam: normal and symmetric motion Cervical Spine: Patient denies neck symptoms and/or numbness/tingling in upper extremities Spurling negative Bilateral Radiology (I have personally reviewed the following films): X-ray of the right was reviewed with patient. Those x-rays reveal no acute fracture or dislocations. There is no superior migration humeralhead. The AC joint reveals degenerative changes. Assessment and Plan: Injury of right rotator cuff, initial encounter (Primary) - PHYSICAL THERAPY REFERRAL OP - ORTHOPAEDICS REFERRAL OP Suspect rotator cuff tear. Recommend course of physical therapy. Encouraged ice. Follow Up: Return for Right shoulder pain Follow up with Dr Patterson in 6 weeks . | For: Right shoulder pain Follow up with Dr Patterson in 6 weeks Angela Ruano PA-C [facility] [address] [facility] [place] [address] documented in this encounter Nursing Notes * Bev Rudolph MED ASSIST - 02/03/2024 12:17 PM EDT Here for UC regarding ongoing right shoulder pain after a fall on Tuesday. documented in this encounter Plan of Treatment Upcoming Encounters Date Type Department Care Team (Late st Contact Info) Description 03/16/2024 10:00 AM EDT Office Visit Orthopaedics [facility] [address] [place] [address] Evens Alas MD [address] [place] [address] 04/20/2024 11:20 AM EST Office [facility] [place] [address] [address] Declan Dejesus [facility] [address] [facility] [address] 07/24/2024 10:00 AM EDT Nurse Only Ancillary Department, [place] [address] [facility] [address] [address] [place], Nurse [facility] [address] [facility] [address] Scheduled Procedures Name Priority Associated Diagnoses Date/Ti me COLONOSCOPY FLEXIBLE PROXIMA L DIAGNOSTIC Recall Screening for colon cancer Scheduled Referrals Name Type Priority Associated Diagnoses Order Schedule PHYSICAL THERAPY REFERRAL OP Referral Within 10 days (routine) Injury of right rotator cuff, initial encounter Ordered: 02/03/2024 ORTHOPAEDICS REFERRAL OP Referral Within 30 days (routine) Injury of right rotator cuff, initial encounter Ordered: 02/03/2024 Health Maintenance Due Date Last Done Comments Sigmoidoscopy 1998 Lung Cancer Screening 2003 Albumin/Creatinine Ratio 01/05/2024 023, 07/05/2022, 01/08/2019, Additional history exists Fecal Occult Blood Test 01/14/2024 01/14/20 23, 01/13/2023, 01/15/2022, Additional history exists COVID-19 Vaccine ( season) 2024 04/04/2023, 04/16/2021, 08/19/2020, Additional history exists Influenza Vaccine (FLU shot) (#1) 2024 04/04/2023, 03/11/2022, 04/16/2021, Additional history exists HbA1c 04/19/2024 10/19/2023, 0609/2023, 07/20/2023, Additional history exists Adult Wellness Visit [...] this encounter Medical Devices Implanted Type Area Acute Care Certified Nursing Assistant Device Identifier Shelf Expiration Date Model / Serial / Lot Iol Mx60 14.0 Implanted:Qty: 1 on 10/19/2019 by Ankit Ny MD at OR [facility] Right: Eye 04/14/2020 MX60 / [id number] / [id number] Implanted:Qty: 1 on 10/30/2019 by Ankit Ny MD at OR [facility] Left: Eye 02/12/2021 MX60 / [id number] / [id number] documented as of this encounter Visit Diagnoses Diagnosis Injury of right rotator cuff, initial encounter- Primary documented in this encounter Care Teams General Office Worker Relationship Specialty Start Date End Date September, Declan Person MD [address] [facility] [place] [address] PCP - General Family Medicine 05/20/23 documented as of this encounter
--- OUTSIDE RECORDS SUMMARY | 2024-04-07 09:29 | External Medical Summary | Summary of Care ---
Author Name Unknown Organization [facility] Address [address] [place] [address] Phone [phone] Care Team Providers Care Cp Bleacher Operator Name Role Phone Declan Dejesus MD Primary Care Provider [phone] Encounter Details Date Type Department Care Team [...] (Sylvia/J&J) 08/19/2020,07/22/2020 Pneumococcal Conjugate Vacci ne, 20-valent ([id number]) 05/20/2023 Pneumococcal Polysaccharide PPV23 (Pneumovax) 03/11/2009,10/11/2008(Deferred: Patient [...] 03/16/2024 10:00 AM EDT Office Visit Orthopaedics [facility] [address] [place] [address] Evens Alas MD [address] [place] [address] 04/20/2024 11:20 AM EST Office Visit Family [facility], [place] [address] [place] [facility] [place] [address] SeptemberDeclan MD [address] [place] [facility] [place] [address] 07/24/2024 10:00 AM EDT Nurse Only Ancillary Department, [place] [address] [facility] [facility] [id number] [place], Nurse Annual Wellness [address] [place] [facility] [place] [address] Scheduled Procedures Name Priority Associated Diagnoses Date/Ti [...] this encounter Medical Devices Implanted Type Area Product Development Ecologist Device Identifier Shelf Expiration Date Model / Serial / Lot Iol Mx60 14.0 Implanted:Qty: 1 on 10/19/2019 by Ankit Ny MD at OR [facility] Right: Eye 04/14/2020 MX60 / [id number] / [id number] Implanted:Qty: 1 on 10/30/2019 by Ankit Ny MD at OR [facility] Left: Eye 02/12/2021 [id number] / [id number] / [id number] documented as of this encounter Care Teams Cp Bleacher Operator Relationship Specialty Start Date End Date September, Declan Person MD [address] [place] [address] PCP - General Family Medicine 05/20/23 documented as of this encounter
--- OUTSIDE RECORDS SUMMARY | 2024-04-07 09:29 | External Medical Summary | Summary of Care ---
Author Name Unknown Organization [facility] Address [address] [place] [place] [place] [address] Phone [phone] Care Team Providers Care Construction Executive Name Role Phone Declan Dejesus MD Primary Care Provider [phone] Encounter Details Date Type Department Care Team [...] (Sylvia/J&J) 08/19/2020,07/22/2020 Pneumococcal Conjugate Vacci ne, 20-valent ([id number]) 05/20/2023 Pneumococcal Polysaccharide PPV23 (Pneumovax) 03/11/2009,10/11/2008(Deferred: Patient [...] 03/16/2024 10:00 AM EDT Office Visit Orthopaedics [facility] [address] [place] [address] Evens Alas MD [address] [place] [address] 04/20/2024 11:20 AM EST Office Visit Family [facility], [place] [address] [place] [address] SeptemberDeclan MD [address] [place] [facility] [place] [address] 07/24/2024 10:00 AM EDT Nurse Only Ancillary Department, [place] [address] [facility] [phone] [place], Nurse Annual Wellness [address] [place] [facility] [place] [address] Scheduled Procedures Name Priority Associated Diagnoses Date/Ti [...] this encounter Medical Devices Implanted Type Area Inpatient Services Director Device Identifier Shelf Expiration Date Model / Serial / Lot Iol Mx60 14.0 Implanted:Qty: 1 on 10/19/2019 by Ankit Ny MD at OR [facility] Right: Eye 04/14/2020 MX60 / [id number] / [id number] Implanted:Qty: 1 on 10/30/2019 by Ankit Ny MD at OR [facility] Left: Eye 02/12/2021 [id number] / [id number] / [id number] documented as of this encounter Care Teams Construction Executive Relationship Specialty Start Date End Date September, Declan Person MD [address] [place] [address] PCP - General Family Medicine 05/20/23 documented as of this encounter
--- OUTSIDE RECORDS SUMMARY | 2024-04-07 09:29 | External Medical Summary | Summary of Care ---
Author Name Unknown Organization [facility] Address [address] [facility] [place] [place] [address] Phone [phone] Care Team Providers Care Claims Customer Service Representative Name Role Phone Declan Dejesus MD Primary Care Provider [phone] Reason for Visit * Reason Comments NEW PATIENT Pt is here for R galen monet first seen by Angela Ruano 02/03/24 from a fall XR:02/03/24 * Evaluate & Treat - Unlimited Visits (Within 30 days (routine)) - Authorized Specialty Diagnoses / Procedures Referred By Александр woo Referred To Contact Orthopaedic Surgery / Orthopedics Diagnoses Injury of right rotator cuff, initial encounter Sharer, Angela Ross PA-C [address] [address] Good Aviles MD Referral ID Status Reason Start Date Expiration Date Visits Requested Visits Authorized [id number] Authorized Specialty Services Required 02/03/2024 [id number] Encounter Details Date Type Department Care Team (Late st Contact Info) Description 03/16/2024 10:00 AM EDT Office Visit Orthopaedics [facility] [address] [address] Evens Alas MD [address] [phone] Nontraumatic incomplete tear of right rotator cuff*; Nontraumatic incomplete tear of left rotator cuff Allergies Active Allergy Reactions Criticality Noted Date Comments Empagliflozin 10/06/2020 Fungal infection, urinary frequency Lisinopril Cough Nickel Rash 09/13/2011 Tetanus Toxoids Rash 09/13/2011 documented as of this encounter (statuses as of 03/16/2024) Medications Medication Sig Dispensed Refills Start Date [...] as of this encounter (statuses as of 03/16/2024) Active Problems Problem Noted Date Diagnosed Date [...] as of this encounter (statuses as of 03/16/2024) Resolved Problems Problem Noted Date Diagnosed Date Resolved Date Primary open-angle glaucoma, right eye, moderate stage 10/16/2020 08/15/2023 Overview: Noted on pl as OU moderate Glaucoma 08/27/2013 06/07/2022 Overview: More specific dx on pl HTN, goal below 140/80 07/03/201210/29 Overview: Per HTN Protocol documented as of this encounter (statuses as of 03/16/2024) Immunizations Name Administration Dates Next Due COVID-19 mRNA, LNP-s, No Pre serve, 2-Dose Series (Moderna) 08/19/2020,07/22/2020 COVID-19, MRNA-LNP, PF, 50 M CG/0.5 mL, 12 YRS AND ABOVE, IM (MODERNA-Spikevax) 04/04/2023 COVID-19, mRNA, LNP-s, PF, B ooster, 100mcg/0.5mg (Moderna) 04/16/2021 Covid-19 Ad26, Single Dose (Sylvia/J&J) 08/19/2020,07/22/2020 Pneumococcal Conjugate Vacci ne, 20-valent ([id number]) 05/20/2023 Pneumococcal Polysaccharide PPV23 (Pneumovax) 03/11/2009,10/11/2008(Deferred: Patient [...] as of this encounter Progress Notes * Evens Alas MD - 03/16/2024 10:05 AM EDT CHIEF COMPLAINT: Chief Complaint Patient presents with NEW PATIENT Pt is here for R shoulder first seen by Angela Ruano 02/03/24 from a fall XR:02/03/24 Impression: (M75.111) Nontraumatic incomplete tear of right rotator cuff (primary encounter diagnosis) acute onchronic injury (M75.112) Nontraumatic incomplete tear of left rotator cuff Plan: We discussed the diagnosis and treatment options with the patient today. Patient's physical exam isconsistent with bilateral shoulder weakness secondary to persistent rotator cuff pathology. Since the patient has improved with doing the physical therapy in his pain has subsided we recommend that he continue with the exercise program. We discussed other treatment options such as injections with the patient today. We would not recommend steroid injections at this time since he is functional. He understands the risk of steroids and the negative affects on tendon healing. If he develops worsening pain or pain at night patient may benefit from cortisone injections in thefuture. Follow Up: Return if symptoms worsen or fail to improve. There are no Patient Instructions on file for this visit. HISTORY OF PRESENT ILLNESS: Rafael Cantu is a 68 year old right hand dominant male who presents to orthopedic Sports Medicine for evaluation to us with a history of right shoulder pain . Patient states that he fell 2 months ago while doing yard work and developed pain in the shoulder. He presented to Urgent Care. He was evaluated and placed in physical therapy for his shoulder. He presents today stating that he has had improvement in his range of motion in his pain. He is now able to function and do most activities. He denies any paresthesias. Of note patient has had rotator cuff surgery on both shoulders over 10 yearsago. Wakes at night? no. Physical Therapy? yes. Injections? no. Nursing Notes: Esdras Jernigan, [facility] 03/16/24 0943 Signed Pt is here for R shoulder first seen by Angela Ruano 02/03/24 from a fall XR:02/03/24 Past Surgical History: Procedure Laterality Date ARTHROPLASTY KNEE TOTAL Right 10/01/2020 [facility] [address]. Sinclair CARDIAC SURGERY PROCEDURE NEC cardiac cath 2016 COLONOSCOPY, DIAGNOSTIC (RECTUM) 07/13/2016 adenomatous polyp, repeat 3 yrs/[facility] COLONOSCOPY, DIAGNOSTIC (RECTUM) N/A 06/29/2023 sigmoid diverticulosis/hemorrhoids/recall 5 years/Colonoscopy/DC COLORECTAL CANCER SCREEN; NOT AT RISK 12/07/2011 COLONOSCOPY CA SCRN NOT HI RSK performed by Julissa Vinson DO at ENDOSCOPY [facility] CORONARY ANGIOGRAPHY W/LEFT HEART CATH Right 08/16/2016 CORONARY ANGIOGRAPHY W/LEFT HEART CATH performed by Khang Mir MD at [facility] [place], FLEXIBLE, DIAGNOSTIC 07/13/2016 Barret[place], repeat 3 yrs/[facility] MISCELLANEOUS ORDER ([facility] ONLY) left wrist fracture and surgical repair MISCELLANEOUS ORDER ([facility] ONLY) ACT 112 signed, 08/10/2018 PARTIAL REMOVAL OF EYE FLUID Right 08/21/2018 23G PPV/MP for ERM with VMT OD, Dr. Johnston RELIEVE INNER EYE PRESSURE Right 10/19/2019 right GONIOTOMY performed by Ankit Ny MD at OR [facility] RELIEVE INNER EYE PRESSURE Left 10/30/2019 left GONIOTOMY performed by Ankit Ny MD at OR [facility] REMOVAL OF ADENOIDS, AGE 12+ REMOVAL OF TONSILS, UNDER AGE 12 REMOVE CATARACT, INSERT LENS PROSTH Right 10/19/2019 right EXTRACAPSULAR CATARACT REMOVAL WITH INTRAOCULAR LENS performed by Ankit yN MD at OR [facility] REMOVE CATARACT, INSERT LENS PROSTH Left 10/30/2019 left EXTRACAPSULAR CATARACT REMOVAL WITH INTRAOCULAR LENS performed by Ankit Ny MD at OR [facility] SHOULDER SURGERY PROCEDURE NEC 2003, 2008 [...] No current facility-administered medications for this visit. Social History Socioeconomic History Marital status: Tobacco Use Smoking status: Former Current packs/day: 0.00 Average packs/day: 2.0 packs/day for 30.0 years (60.0 ttl pk-yrs) Types: Cigarettes Start date: 12/03/1982 Quit date: 12/03/2012 Years since quittin.2 Smokeless tobacco: Never Vaping Use Vaping status: Never Used Substance and Sexual Activity Alcohol use: Yes Alcohol/week: 0.0 standard drinks of alcohol Comment: seasonally and socially Drug use: No Sexual activity: Yes Comment: has tried viagra Other Topics Concern Service No Blood Transfusions No Caffeine Concern Yes Comment: when driving Occupational Exposure No Hobby Hazards No Sleep Concern Yes Comment: up to urinate Weight Concern Yes Special Diet No Back Care Yes Comment: fall in past and it gives him trouble from time to time Seat Belt Yes Self-Exams No 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 (Adult - for ages 18 years and over): Yes Food Insecurity: No Food Insecurity (06/23/2023) Food Insecurity Do you need food for this week? (Adult - for ages 18 years and over): No Transportation Needs: Unmet Transportation Needs (06/23/2023) Transportation Needs Do you have trouble getting a ride to medical visits or work? (Adult - for ages 18 years and over):Sometimes True Social Connections: Socially Integrated (06/23/2023) Social Connections How often do you feel lonely or isolated from those around you? (Adult - for ages 18 years and over): Sometimes Housing Stability: Low Risk (06/23/2023) Housing Stability Do you currently live in a senior care or have no steady place to sleep at night? (Adult - for ages 18 years and over): No Do you think you are at risk of becoming homeless? (Adult - for ages 18 years and over): No Family History Problem Relation Name Age of Onset Cancer Mother Cancer Stroke Father prostate cancer Diabetes Sister Diabetes Grandmother (Maternal) Eye Problems None Denies family hx of AMD, RD, glaucoma, or blindness Heart Disorder None Hypertension None Thyroid Disorder None Past Medical History: Diagnosis Date Arthritis Diabetes mellitus (HCC) Dyslipidemia, goal LDL below 130 08/27/2013 Dyslipidemia, goal to be determined Glaucoma 08/27/2013 Hypertension Lumbago Major depressive disorder, single episode, moderate (HCC) Obesity Shortness of breath Type 2 diabetes mellitus (HCC) UTI (urinary tract infection) ROS: Constitional: No change in weight, No weakness, No fatigue, and No fevers, sweats, or chills Skin: No edema, No rash, and No itching Psychiatric: No depression, No anxiety, and No psychosis Xray: I personally reviewed the xrays. Patient underwent x-rays of the right shoulder on 02/03/2024. The x-rays of the right shoulder show evidence of previous rotator cuff repair with metal anchor placement at the rotator cuff footprint. There is no evidence of loose bodies. There is degeneration of the AC joint. Proximal humeral head migration is difficult to assess secondary to x-ray orientation. PHYSICAL EXAM: General: generally well-nourished and in no acute distress HEENT: normocephalic, atraumatic, EOMI, sclera anicteric. Psych: mood and affect normal , cooperative Card: Peripheral pulses: normal in affected extremity (s) Resp: equal chest rise, non-tachypneic, non-labored breathing Skin: no rash, normal Neuro: Coordination: normal; Sensation: normal on affected extremity (s) Skin: normal. C-Spine evaluation: Does patient have neck symptoms and/or numbness/tingling in upper extremities: no Inspection: bilateral and symmetrical . There is evidence of supraspinatus and infraspinatus muscleatrophy with prominence of the scapular spine bilaterally Shoulder ROM: ABD (170') - Bilateral and equal ER (40') - Bilateral and equal Passive ER -Bilateral and equal IR (T10) - right T10 left T10 FF (180') - Bilateral and equal Scapular elevation with forward flexion:negativeBilateral Tenderness/Location: yes - SS and Biceps Inspection AC Joint Prominence: normal Cross-arm maneuver: positive Impingement sign: positive Sulcus sign: negative Lift-off test: negative Apprehension:negative Kingsport's test: negative Load and shift: negative Speed's test: positive bilaterally Drop-arm test: negative Instability Testing: Shoulder instability testing: not examined negative scapular winging negative scapular dyskinesis Strength: ABD: Right - 5/5 Left - 5/5 ER: Right - 4/5 Left - 4/5 IR: Right - 5/5 Left - 5/5 Biceps: Right - 5-/5 Left - 5/5 "Empty can": Right - 4+/5 Left - 4+/5 Neurovascular assessment: negative for deficit Neck ROM: Extension 10 degrees Flexion to the chest Spurlings test: Right negative Left negative Lateral bending and rotation pain: right negative left negative TTP: negative Ligamentous laxity testing: negative Bilateral Evens Alas MD Orthopaedics [place] [id number] Orthopedic Sports Medicine Surgery 03/16/2024 10:05 AM This chart was completed in part utilizing [employer] Speech Voice Recognition Software. Grammatical errors, random word insertions, pronoun errors, and incomplete sentences are an occasional consequence of this system due to software limitations, ambient noise, and hardware issues. Any formal questions or concerns about the content, text, or information contained within the body of this dictation should be directly addressed to the provider for clarification. documented in this encounter Nursing Notes * Esdras Jernigan CMA - 03/16/2024 9:42 AM EDT Pt is here for R shoulder first seen by Angela Pintor 02/03/24 from a fall XR:02/03/24 documented in this encounter Plan of Treatment Upcoming Encounters Date Type Department Care Team (Late st Contact Info) Description 04/20/2024 11:20 AM EST Office Visit [facility] [address] [place] [address] September, Declan Person MD [address] [place] [address] 07/24/2024 10:00 AM EDT Nurse Only Ancillary Department, [place] [address] [place] [address] [place], Nurse Annual Wellness [address] [place] [address] Scheduled Procedures Name Priority Associated Diagnoses Date/Ti me COLONOSCOPY FLEXIBLE PROXIMA L DIAGNOSTIC Recall Screening for colon cancer Scheduled Referrals Name Type Priority Associated Diagnoses Order Schedule ORTHOPAEDICS REFERRAL OP Referral Within 30 days [...] this encounter Medical Devices Implanted Type Area Adjunct Professor Device Identifier Shelf Expiration Date Model / Serial / Lot Iol Mx60 14.0 Implanted:Qty: 1 on 10/19/2019 by Ankit Ny MD at OR [facility] Right: Eye 04/14/2020 MX60 / [id number] / [id number] Implanted:Qty: 1 on 10/30/2019 by Ankit Ny MD at [facility] Left: Eye 02/12/2021 MX60 / [id number] / [id number] documented as of this encounter Visit Diagnoses Diagnosis Nontraumatic incomplete tear of right rotator cuff- Primary Partial tear of rotator cuff Nontraumatic incomplete tear of left rotator cuff documented in this encounter Care Teams Claims Customer Service Representative Relationship Specialty Start Date End Date September, Declan Person MD [address] [place] [address] PCP - General Family Medicine 05/20/23 documented as of this encounter
--- OUTSIDE RECORDS SUMMARY | 2024-04-07 09:30 | External Medical Summary | Summary of Care ---
Author Name Unknown Organization [facility] Address [address] [place] [address] Phone [phone] Care Team Providers Care Conduit Cleaner Name Role Phone Kole Estrada MD Primary Care Provider [phone] Reason for Visit * Reason Comments Medication Refill Encounter Details Date Type Department Care Team (Late st Contact Info) Description 12/19/2023 Refill [facility] [address] [place] [phone] Kole Estrada MD [address] [place] [address] Allergies Active Allergy Reactions Criticality Noted Date Comments Empagliflozin 10/06/2020 Fungal infection, urinary frequency Lisinopril Cough Nickel Rash 09/13/2011 Tetanus Toxoids Rash 09/13/2011 documented as of this encounter (statuses as of 12/20/2023) Medications Medication Sig Dispensed Refills Start Date [...] the morning. 90 Capsule 3 08/19/2023 Active Latanoprost 0.005 % Ophthalmic Solution (Xalatan) Instill 1 drop into both eyes at bedtime 2.5 mL 3 10/11/2023 Active Glimepiride 2 MG Oral Tablet (Amaryl) TAKE ONE TABLET BY MOUTH DAILY WITH BREAKFAST 90 Tablet 3 11/21/2023 Active Losartan Potassium 50 MG Oral Tablet (Cozaar) Take 1 Tablet by mouth daily. 90 Tablet 1 12/20/2023 Active Tamsulosin HCl 0.4 MG Oral Capsule (Flomax) Take 1 Capsule by mouth at bedtime. 90 Capsule 1 12/20/2023 Active Losartan Potassium 50 MG Oral Tablet (Cozaar) Take 1 Tablet by mouth daily. 90 Tablet 1 06/29/2023 4 Discontinue d(Refill) Tamsulosin HCl 0.4 MG Oral Capsule (Flomax) Take 1 Capsule by mouth at bedtime. 90 Capsule 1 06/29/2023 4 Discontinue d(Refill) documented as of this encounter (statuses as of 12/20/2023) Active Problems Problem Noted Date Diagnosed Date [...] as of this encounter (statuses as of 12/20/2023) Resolved Problems Problem Noted Date Diagnosed Date Resolved Date Primary open-angle glaucoma, right eye, moderate stage 10/16/2020 08/15/2023 Overview: Noted on pl as OU moderate Glaucoma 08/27/2013 06/07/2022 Overview: More specific dx on pl HTN, goal below 140/80 07/03/201210/29 Overview: Per HTN Protocol documented as of this encounter (statuses as of 12/20/2023) Immunizations Name Administration Dates Next Due COVID-19 mRNA, LNP-s, No Pre serve, 2-Dose Series (Moderna) 08/19/2020,07/22/2020 COVID-19, MRNA-LNP, 23-24, P F, 50 MCG/0.5 mL, 12 YRS AND ABOVE, IM (MODERNA-Spikevax) 04/04/2023 COVID-19, mRNA, LNP-s, PF, B ooster, 100mcg/0.5mg (Moderna) 04/16/2021 Covid-19 Ad26, Single Dose (Sylvia/J&J) 08/19/2020,07/22/2020 Pneumococcal Conjugate Vacci ne, 20-valent ([id number]) 05/20/2023 Pneumococcal Polysaccharide PPV23 (Pneumovax) 03/11/2009,10/11/2008(Deferred: Patient Refused) Seasonal Influenza, Quadriva lent Hd (Fluzone Hd) 04/04/2023 Seasonal Influenza, Quadrivalent, ID 03/11/2022, 04/16/2021,02/19/2020 Seasonal Influenza, Split, I IV3, With Preserve, Inj 03/07/2016,06/15/2015,07/16/2013,05/17,05/05/2009(Deferred: Patient Refused) TDAP, Age 7 and [...] encounter Miscellaneous Notes * Telephone Encounter - Inge Arias [facility] - 12/20/2023 6:56 AM EDTSigned Prescriptions: Disp Refills Losartan Potassium 50 MG Oral Tablet (Coza*90 Tab*1 Sig: Take 1 Tablet by mouth daily. Authorizing Provider: KOLE ESTRADA Ordering User: INGE ARIAS Tamsulosin HCl 0.4 MG Oral Capsule (Flomax)90 Cap*1 Sig: Take 1 Capsule by mouth at bedtime. Authorizing Provider: KOLE ESTRADA Ordering User: INGE ARIAS ----- * Telephone Encounter - Transfer User, Rx Adt - 12/19/2023 12:13 AM EDTPending Prescriptions: Disp Refills Losartan Potassium 50 MG Oral Tablet (Coza*90 Tab*1 Sig: Take 1Tablet by mouth daily. Tamsulosin HCl 0.4 MG Oral Capsule (Flomax)90 Cap*1 Sig: Take 1 Capsule by mouth at bedtime. documented in this encounter Plan of Treatment Upcoming Encounters Date Type Department Care Team (Late st Contact Info) Description 04/20/2024 11:20 AM EST Office [facility] [place] [address] [facility] [phone] SeptemberKole MD [address] [facility] [address] 07/24/2024 10:00 AM EDT Nurse Only Ancillary Department, [place] [address] [facility] [place] [address] [place], Nurse [facility] [address] [facility] [address] Health Maintenance Due Date Last Done Comments Sigmoidoscopy 1998 Lung Cancer Screening 2003 COVID-19 Vaccine ( season) 2023 04/04/2023, 04/16/2021, 08/19/2020, Additional history exists Albumin/Creatinine Ratio 01/05/2024 08/22/2 023, 07/05/2022, 01/08/2019, Additional history exists Fecal Occult Blood Test 01/14/2024 01/14/20 23, 01/13/2023, 01/15/2022, Additional history exists Influenza Vaccine (FLU shot) (#1) 2024 04/04/2023, 03/11/2022, 04/16/2021, Additional history exists HbA1c 04/19/2024 10/19/2023, 09/2023, 07/20/2023, Additional history exists Diabetic Eye Exam 07/13/2024 07/13/2023, , 07/13/2023, Additional history exists Adult Wellness Visit 07/19/2024 07/20/2023 B-12 07/19/2024 07/20/2023 Depression Screening 07/19/2024 07/20/2023 Diabetic Foot Exam 07/19/2024 07/20/2023, 0 01/03/2017, 02/17/2015, Additional history exists GFR 07/19/2024 07/20/2023, 12/15, 10/07/2020, Additional history exists Cologuard 2026 2023, 05/16, 05/25/2023 Colonoscopy 06/29/2026 06/29/2023, 06/16, 07/13/2016, Additional history exists Colorectal Cancer Screening 06/29/2026 Lipid Panel 07/19/2028 07/20/2023, 12/15, 01/08/2019, Additional [...] this encounter Medical Devices Implanted Type Area Restaurant Managing Partner Device Identifier Shelf Expiration Date Model / Serial / Lot Iol Mx60 14.0 Implanted:Qty: 1 on 10/19/2019 by Ankit Ny MD at OR [facility] Right: Eye 04/14/2020 MX60 / [id number] / [id number] Implanted:Qty: 1 on 10/30/2019 by Ankit Ny MD at OR [facility] Left: Eye 02/12/2021 MX60 / [id number] / [id number] documented as of this encounter Care Teams Conduit Cleaner Relationship Specialty Start Date End Date September, Kole Person MD [address] [facility] [place] [address] PCP - General Family Medicine 05/20/23 documented as of this encounter
--- OUTSIDE RECORDS SUMMARY | 2024-04-07 09:30 | External Medical Summary | Summary of Care ---
Author Name Unknown Organization [facility] Address [address] [place] [address] Phone [phone] Care Team Providers Care Ophthalmic Asst Name Role Phone Kole Estrada MD Primary Care Provider [phone] Reason for Visit * Reason Comments Medication Refill Encounter Details Date Type Department Care Team (Late st Contact Info) Description 11/19/2023 Refill [facility] [address] [place] [id number] Kole Estrada MD [address] [place] [address] Allergies Active Allergy Reactions Criticality Noted Date Comments Empagliflozin 10/06/2020 Fungal infection, urinary frequency Lisinopril Cough Nickel Rash 09/13/2011 Tetanus Toxoids Rash 09/13/2011 documented as of this encounter (statuses as of 11/21/2023) Medications Medication Sig Dispensed Refills Start Date [...] a day 90 Tablet 3 05/20/2023 Active Losartan Potassium 50 MG Oral Tablet (Cozaar) Take 1 Tablet by mouth daily. 90 Tablet 1 06/29/2023 Active Tamsulosin HCl 0.4 MG Oral Capsule (Flomax) Take 1 Capsule by mouth at bedtime. 90 Capsule 1 06/29/2023 Active Dutasteride 0.5 MG Oral Capsule (Avodart)Indication s:BPH with obstruction/lower urinary tract symptoms Take 1 Capsule by mouth in the morning. 90 Capsule 3 08/19/2023 Active Latanoprost 0.005 % Ophthalmic Solution (Xalatan) Instill 1 drop into both eyes at bedtime 2.5 mL 3 10/11/2023 Active Glimepiride 2 MG Oral Tablet (Amaryl) TAKE 1 TABLET BY MOUTH DAILY WITH BREAKFAST 90 Tablet 3 11/21/2023 Active Glimepiride 2 MG Oral Tablet (Amaryl) TAKE 1 TABLET BY MOUTH DAILY WITH BREAKFAST 90 Tablet 1 05/27/2023 Discontinue d(Refill) documented as of this encounter (statuses as of 11/21/2023) Active Problems Problem Noted Date Diagnosed Date [...] as of this encounter (statuses as of 11/21/2023) Resolved Problems Problem Noted Date Diagnosed Date Resolved Date Primary open-angle glaucoma, right eye, moderate stage 10/16/2020 08/15/2023 Overview: Noted on pl as OU moderate Glaucoma 08/27/2013 06/07/2022 Overview: More specific dx on pl HTN, goal below 140/80 07/03/201210/29 Overview: Per HTN Protocol documented as of this encounter (statuses as of 11/21/2023) Immunizations Name Administration Dates Next Due COVID-19 mRNA, LNP-s, No Pre serve, 2-Dose Series (Moderna) 08/19/2020,07/22/2020 COVID-19, MRNA-LNP, 23-24, P F, 50 MCG/0.5 mL, 12 YRS AND ABOVE, IM (MODERNA-Spikevax) 04/04/2023 COVID-19, mRNA, LNP-s, PF, B ooster, 100mcg/0.5mg (Moderna) 04/16/2021 Covid-19 Ad26, Single Dose (Sylvia/J&J) 08/19/2020,07/22/2020 Pneumococcal Conjugate Vacci ne, 20-valent ([id number]) 05/20/2023 Pneumococcal Polysaccharide PPV23 (Pneumovax) 03/11/2009,10/11/2008(Deferred: Patient [...] encounter Miscellaneous Notes * Telephone Encounter - Koko Keita RPh - 11/21/2023 9:06 AM EDTSigned Prescriptions: Disp Refills Glimepiride 2 MG Oral Tablet (Amaryl) 90 Tab*3 Sig: TAKE 1 TABLET BY MOUTH DAILY WITH BREAKFASTAuthorizing Provider: KOLE ESTRADA User: KOKO KEITA- documented in this encounter Plan of Treatment Upcoming Encounters Date Type Department Care Team (Late st Contact Info) Description 04/20/2024 11:20 AM EST Office Visit Family Practice, [facility] [address] [phone] SeptemberKole MD [address] [address] 07/24/2024 10:00 AM EDT Nurse Only Ancillary Department, [facility] [address] [address] [employer], Nurse [facility] [address] [facility] [phone] Health Maintenance Due Date Last Done Comments Sigmoidoscopy 1998 Lung Cancer Screening 2003 COVID-19 Vaccine ( season) 2023 04/04/2023, 04/16/2021, 08/19/2020, Additional history exists Albumin/Creatinine Ratio 01/05/2024 023, 07/05/2022, 01/08/2019, Additional history exists Fecal Occult Blood Test 01/14/2024 01/14/20 23, 01/13/2023, 01/15/2022, Additional history exists Influenza Vaccine (FLU shot) (#1) 2024 04/04/2023, 03/11/2022, 04/16/2021, Additional history exists HbA1c 04/19/2024 10/19/2023, 06/0 09/2023, 07/20/2023, Additional history exists Diabetic Eye Exam 07/13/2024 07/13/2023, , 07/13/2023, Additional history exists B-12 07/19/2024 07/20/2023 Depression Screening 07/19/2024 07/20/2023 Diabetic Foot Exam 07/19/2024 07/20/2023, 0 01/03/2017, 02/17/2015, Additional history exists GFR 07/19/2024 07/20/2023, 0806/2022, 10/07/2020, Additional history exists Cologuard 2026 2023, [...] this encounter Medical Devices Implanted Type Area Entertainment Centre Manager Device Identifier Shelf Expiration Date Model / Serial / Lot Iol Mx60 14.0 Implanted:Qty: 1 on 10/19/2019 by Ankit Ny MD at OR [facility] Right: Eye 04/14/2020 MX60 / [id number] / [id number] Implanted:Qty: 1 on 10/30/2019 by Ankit Ny MD at OR [facility] Left: Eye 02/12/2021 MX60 / [id number] / [id number] documented as of this encounter Care Teams Ophthalmic Asst Relationship Specialty Start Date End Date September, Kole Person MD [address] [place] [address] PCP - General Family Medicine 05/20/23 documented as of this encounter
--- OUTSIDE RECORDS SUMMARY | 2024-04-07 09:30 | External Medical Summary | Summary of Care ---
Author Name Unknown Organization [facility] Address [address] [place] [address] Phone [phone] Care Team Providers Care Glove Operator Name Role Phone Declan Dejesus MD Primary Care Provider [phone] Reason for Visit * Reason Onset Date Comments Order Request 02/03/2024 Encounter Details Date Type Department Care Team (Late st Contact Info) Description 02/03/2024 Telephone [facility] [address] [place] [id number] SeptemberDeclan MD [address] [place] [address] Order Request Allergies Active Allergy [...] (Sylvia/J&J) 08/19/2020,07/22/2020 Pneumococcal Conjugate Vacci ne, 20-valent ([id number]) 05/20/2023 Pneumococcal Polysaccharide PPV23 (Pneumovax) 03/11/2009,10/11/2008(Deferred: Patient [...] wish to have their order completed at? [facility] Fax Number, if applicable: If the caller [...] Description 04/20/2024 11:20 AM EST Office Visit [facility], [place] [address] [place] [address] SeptemberDeclan MD [address] [place] [address] 07/24/2024 10:00 AM EDT Nurse Only Ancillary Department, [place] [address] [place] [address] [place], Nurse [facility] [address] [place] [address] Scheduled Orders Name Type Priority Associated Diagnoses [...] this encounter Medical Devices Implanted Type Area Underwriting Clerk Device Identifier Shelf Expiration Date Model / Serial / Lot Iol Mx60 14.0 Implanted:Qty: 1 on 10/19/2019 by Ankit Ny MD at OR [facility] Right: Eye 04/14/2020 MX60 / [id number] / Mx60 Implanted:Qty: 1 on 10/30/2019 by Ankit Ny MD at OR [facility] Left: Eye 02/12/2021 MX60 / [id number] / [id number] documented as of this encounter Visit Diagnoses Diagnosis Pain of right upper extremity- Primary documented in this encounter Care Teams Glove Operator Relationship Specialty Start Date End Date September, Declan Person MD [address] [place] [address] PCP - General Family Medicine 05/20/23 documented as of this encounter
--- NOTE | 2024-04-07 10:12 | Cardiology Progress Note ---
Date of Service April 07, 2024 Assessment & Plan (1) Symptomatic anemia: (2) Occult blood in stools: (3) Acute on chronic anemia: (4) Symptomatic severe aortic stenosis with normal ejection fraction: (5) REMBERTO on CPAP: (6) Dyslipidemia: (7) Diabetes mellitus, type II: (8) HTN (hypertension): Plan Symptomatic anemia. Occult blood in stool. Patient evaluated by GI. EGD planned for Tuesday unless urgently indicated over the weekend. If EGD negative, outpatient colonoscopy planned. Possibility of AVMs and Heyde Syndrome noted and discussed. No overt cardiac contraindications to the above GI evaluation which should transpire in the hospital setting. Severe symptomatic aortic valve stenosis. Recommend cardiology follow-up shortly after discharge to initiate outpatient aortic valve replacement workup. Patient will require complete dental evaluation, bilateral carotid duplex (? Bilateral carotid bruits versus transmitted systolic murmur), repeat diagnostic cardiac catheterization, and referral to the [facility] as discussed. Shortness of breath. Suspect secondary to the above however patient is a reformed longstanding cigarette user who notes recent unplanned weight loss and occasional night sweats. Chest x-ray pending. Consider further evaluation - CT scan of the chest, PFT's, outpatient pulmonary evaluation. Admission and Anticipated Discharge Date Admission Date: April 06, 2024 Subjective Patient seen cardiology follow-up. No acute complaints. Denies blood per rectum today. Denies lightheadedness, dizziness, or recurrent syncope. Telemetry reveals sinus rhythm in the range of 70 bpm to 100 bpm without arrhythmia. Review of Systems Review of Systems: All systems reviewed & are unremarkable except as noted in HPI & below Physical Exam Constitutional: well developed Eyes: PERRL, conjunctivae normal, anicteric sclerae Respiratory: normal respiratory effort, lungs clear to auscultation Cardiovascular: Rate/Rhythm: regular rate and regular rhythm Heart Sounds: + murmur (II/ systolic murmur heard best at right sternal border) Extremities: no edema Gastrointestinal (Abdomen): normal bowel sounds, soft, nontender, no hepatosplenomegaly Skin: no rashes, warm and dry Neurologic: PERRL, EOMI, accommodation nl, no face palsy, no dysarthria Results & Data Vital Signs (Past 12 Hours) Vital Signs Temp Pulse Pulse Resp BP Pulse Ox O2 Del Method 04/07/24 07:43 36.6 C 74 18 127/65 96 Room Air 04/07/24 07:26 76 04/07/24 04:03 36.9 C 80 20 123/74 95 Room Air 04/07/24 03:02 77 24 95 04/06/24 23:54 36.5 C 78 20 108/69 96 CPAP 04/06/24 23:02 71 Laboratory Results Cardiac Enzymes 04/06/24 Range/Units 11:08 AST 15 (13-39) U/L Troponin I High Sens 6.8 (0-20) pg/ml Coagulation 04/06/24 Range/Units 11:08 PT 10.9 (9.0-12.0) Seconds APTT 23 (21-31) Seconds CBC 04/06/24 04/06/24 04/06/24 Range/Units 11:08 18:34 22:51 WBC 7.46 (4.8-10.8) K/ul RBC 2.67 L (4.70-6.10) M/uL Hgb 8.8 L 8.9 L 8.3 L (14.0-18.0) g/dl Hct 27.0 L 27.8 L 25.3 L (42.0-52.0) % Plt Count 210 (130-400) K/uL Neut # (Auto) 5.82 (1.40-6.50) K/uL Lymph # (Auto) 0.85 L (1.20-3.40) K/uL Nicholas # (Auto) 0.47 (0.11-0.59) K/uL Eos # (Auto) 0.20 (0.00-0.50) K/uL Baso # (Auto) 0.08 (0.00-0.20) K/uL 04/07/24 Range/Units 05:24 WBC 7.18 (4.8-10.8) K/ul RBC 2.76 L (4.70-6.10) M/uL Hgb 8.8 L (14.0-18.0) g/dl Hct 28.2 L (42.0-52.0) % Plt Count 214 (130-400) K/uL Neut # (Auto) (1.40-6.50) K/uL Lymph # (Auto) (1.20-3.40) K/uL Nicholas # (Auto) (0.11-0.59) K/uL Eos # (Auto) (0.00-0.50) K/uL Baso # (Auto) (0.00-0.20) K/uL Comprehensive Metabolic Panel 04/06/24 04/07/24 Range/Units 11:08 05:24 Sodium 138 141 (136-145) mmol/L Potassium 4.2 4.2 (3.5-5.1) mmol/L Chloride 106 109 H (98-107) mmol/L Carbon Dioxide 23 25 (21-32) mmol/L BUN 19 12 (6-23) mg/dl Creatinine 0.80 0.69 (0.6-1.4) mg/dl Glucose 265 H 169 H (70-99(Fasting)) mg/dl Calcium 9.3 9.3 (8.6-10.3) mg/dl AST 15 (13-39) U/L ALT 13 (7-52) U/L Alkaline Phosphatase 54 (34-104) U/L Total Protein 6.7 (6.0-8.3) gm/dl Albumin 4.1 (3.4-5.0) gm/dl Intake and Output 04/06/24 04/07/24 04/07/24 22:59 06:59 14:59 Intake Total 450 / 600 150 / 600 Balance 450 / 600 150 / 600 Intake: Oral 450 / 600 150 / 600 Other: Weight 104.9 kg Weight Measurement Method Built in [facility] [id number]-rhgu stool sample for occult blood was positive
--- NOTE | 2024-04-07 10:41 | Gastroenterology Progress Note ---
Date of Service April 07, 2024 Assessment & Plan (1) Symptomatic anemia: (2) Acute GI bleeding: (3) Occult blood in stools: Plan: EGD planned for April 09. Please keep n.p.o. after midnight on Tuesday. Continue Protonix. Admission and Anticipated Discharge Date Admission Date: April 06, 2024 Subjective No gastrointestinal symptoms. No nausea, vomiting, hematemesis, no melena. Hemoglobin remains stable. Cardiology evaluation noted, okay to proceed with EGD from cardiac standpoint. Review of Systems Review of Systems: Constitutional: Denies weight loss, chills, fever, fatigue. Respiratory: Denies cough, denies shortness of breath. Cardiovascular: Denies chest pain and palpitations. Gastrointestinal: Denies nausea, vomiting, diarrhea, constipation, abdominal pain. Physical Exam Physical Exam: Constitutional: WD/WN, vitals as above Respiratory: normal respiratory effort, lungs clear to auscultation Cardiovascular: Irregular, systolic ejection murmur, no edema Gastrointestinal (Abdomen): normal bowel sounds, soft, nontender, no hepatosplenomegaly. Neurological: Oriented x 3, grossly no focal abnormalities, speech is intact. Results & Data Results & Data Vital Signs (Past 12 Hours) Vital Signs Temp Pulse Pulse Resp BP Pulse Ox O2 Del Method 04/07/24 07:43 36.6 C 74 18 127/65 96 Room Air 04/07/24 07:26 76 04/07/24 04:03 36.9 C 80 20 123/74 95 Room Air 04/07/24 03:02 77 24 95 04/06/24 23:54 36.5 C 78 20 108/69 96 CPAP 04/06/24 23:02 71 PG Care Time/CCT Total # of Minutes Spent Total Time Spent with Patient: Total time spent is greater than 50% in coordination of care (as documented) at patient's floor/unit and/or counseling patient: Coding Level of Care Code 44858 SUB INP/OBS CARE 2/35MIN Diagnoses Symptomatic anemia D64.9 Acute GI bleeding K92.2 Occult blood in stools R19.5
--- OUTSIDE RECORDS SUMMARY | 2024-04-07 15:29 | External Medical Summary | Summary of Care ---
Author Name Unknown Organization [facility] Address [address] [place] [address] Phone [phone] Care Team Providers Care Type Disk Quality Control Supervisor Name Role Phone Declan Dejesus MD Primary Care Provider [phone] Encounter Details Date Type Department Care Team (Late st Contact Info) Description 04/05/2024 Telephone [facility] [address] [place] [address] Shira Black MD [address] [place] [address] Allergies Active Allergy Reactions Criticality Noted Date Comments Empagliflozin 10/06/2020 Fungal infection, urinary frequency Lisinopril Cough Nickel Rash 09/13/2011 Tetanus Toxoids Rash 09/13/2011 documented as of this encounter (statuses as of 04/06/2024) Medications MULTI VITAMIN MENS PO TABS one [...] as of this encounter (statuses as of 04/06/2024) Active Problems Problem Noted Date Diagnosed Date [...] as of this encounter (statuses as of 04/06/2024) Resolved Problems Problem Noted Date Diagnosed Date Resolved Date Primary open-angle glaucoma, right eye, moderate stage 10/16/2020 08/15/2023 Overview (08/15/2023): Noted on pl as OU moderate Glaucoma 08/27/2013 06/07/2022 Overview (06/07/2022): More specific dx on pl HTN, goal below 140/80 07/03/201210/29 Overview: Per HTN Protocol documented as of this encounter (statuses as of 04/06/2024) Immunizations Name Administration Dates Next Due COVID-19 mRNA, LNP-s, No Pre serve, 2-Dose Series (Moderna) 08/19/2020,07/22/2020 COVID-19, MRNA-LNP, PF, 50 M CG/0.5 mL, 12 YRS AND ABOVE, IM (MODERNA-Spikevax) 04/04/2023 COVID-19, mRNA, LNP-s, PF, B ooster, 100mcg/0.5mg (Moderna) 04/16/2021 Covid-19 Ad26, Single Dose (Sylvia/J&J) 08/19/2020,07/22/2020 Pneumococcal Conjugate Vacci ne, 20-valent ([id number]) 05/20/2023 Pneumococcal Polysaccharide PPV23 (Pneumovax) 03/11/2009,10/11/2008(Deferred: Patient [...] No 06/23/2023 Does the household have a [facility] source of income? (Household - for [...] Telephone Encounter - Shira Black MD - 04/06/2024 9:32 AM EST Talked to pt Acute anemia, from 13 down to 8. With clinical sx of SOB, fatigue severe Also elevated troponin Having high glucose fasting more than 200 this morning Although his hba1c is 4.9 For all above findings, advised to pt to go to ER Pt understood * Telephone Encounter - Shira Black MD [...] 11:20 AM EST Office Visit Family Practice, [facility] [address] [place] [id number] SeptemberDeclan MD [address] [place] [address] 04/25/2024 7:15 AM EST Cardiac Studies Cardiac Studies, [facility] [address] [place] [address] 07/24/2024 10:00 AM EDT Nurse Only [facility] [address] [place] [address] [place], Nurse [facility] [address] [facility] [address] Scheduled Orders Name Type Priority Associated Diagnoses [...] 2024 04/04/2023, 03/11/2022, 04/16/2021, Additional history exists Adult Wellness Visit 07/19/2024 07/20/2023 B-12 07/19/2024 07/20/2023 Depression Screening 07/19/2024 07/20/2023 Diabetic Foot Exam 07/19/2024 07/20/2023, 0 01/03/2017, 02/17/2015, Additional history exists HbA1c 10/03/2024 04/05/2024, 06/0 09/2023, 10/19/2023, Additional history exists Diabetic Eye Exam 12/12/2024 12/13/2023, , 07/13/2023, Additional history exists Albumin/Creatinine Ratio 03/26/2025 024, 01/04/2023, 07/05/2022, Additional history exists GFR 04/05/2025 04/05/2024, 03/0 10/2023, 01/04/2023, Additional history exists Cologuard 2026 2023, 05/16, 05/25/2023 Colonoscopy 06/29/2028 06/29/2023, 06/16, 07/13/2016, Additional history exists Colorectal Cancer Screening 06/29/2028 Lipid Panel 07/19/2028 07/20/2023, 0806/2022, 01/08/2019, Additional history exists AAA Screening Completed [...] this encounter Medical Devices Implanted Type Area Ekg Technician Device Identifier Shelf Expiration Date Model / Serial / Lot Iol Mx60 14.0 Implanted:Qty: 1 on 10/19/2019 by Ankit Ny MD at OR [facility] Right: Eye 04/14/2020 MX60 / [id number] / [id number] Implanted:Qty: 1 on 10/30/2019 by Ankit Ny MD at OR [facility] Left: Eye 02/12/2021 MX60 / [id number] / [id number] documented as of this encounter Visit Diagnoses Diagnosis Anemia, unspecified type- Primary documented in this encounter Care Teams Type Disk Quality Control Supervisor Relationship Specialty Start Date End Date September, Declan Person MD [address] [place] [address] PCP - General Family Medicine 05/20/23 documented as of this encounter
[2024-04-08] MEDS: ALUMINUM/MAGNESIUM/SIMETH (MAALOX MAX) 30 ML UDC PO STA (02:38)
--- NOTE | 2024-04-08 07:51 | Hospitalist Progress Note ---
Date of Service April 08, 2024 Assessment & Plan (1) Acute on chronic anemia: (2) Occult blood in stools: Plan 68y/o M with DM type II, dyslipidemia, diabetic nephropathy, REMBERTO on CPAP, HTN, aortic valve stenosis, severe obesity, BPH with obstruction/lower urinary tract symptoms, BPPV, bilateral primary open-angle glaucoma, iron deficiency anemia and depression who presented to the ED via referral from his PCP due to acute on chronic anemia and worsening fatigue. Symptomatic Acute on Chronic Anemia Hemoccult Positive, Likely Upper GI Bleed: Hgb 8.8 on admission, baseline Hgb ~11-13 per chart review. Hemoccult stool positive in the ED. (but pt is also on iron pills) CT A/P- unremarkable, revealed no findings indicative of an active GI bleed. + unintentional weight loss. Most recent colonoscopy performed 06/29/2023 -> Normal appearance of the colon, multiple small and large-mouthed diverticula in the sigmoid colon, internal hemorrhoids. Blood consent obtained in the ED already, type/cross for 2 units of PRBCs as a precaution - on hold for now pending Hgb trend. GI consulted - plan for EGD on Tuesday unless urgently indicated over the weekend. NPO after MN in anticipation for EGD on Tuesday If EGD is negative, should have a repeat outpatient colonoscopy with his regular GI providers through [facility] Tick borne panel pending. Anemia panel - folate , B12 wnl, transf. sat 6% -> gave IV iron (venofer) on 04/07 S/p 20mg IV Pepcid, 40mg IV Protonix in the ED. Continue IV Protonix 40mg BID. Trend H/H. Hgb stable 8.8 on 04/07, hgb 9.3 on 04/08 Hold home ASA, and oral iron supplementation for now. Chest Pressure, Recent Presyncopal Events: Severe Patient with recent episodes of chest pressure and presyncopal events with exe rtion. Known aortic valve stenosis, + systolic murmur on exam. Troponin x 1 negative, admitting EKG with no overt evidence of ischemia. Echocardiogram obtained showing severe -> cardiology consulted Per cardiology: EGD planned for Tuesday unless urgently indicated over the weekend. If EGD negative, outpatient colonoscopy planned. Possibility of AVMs and Heyde Syndrome noted and discussed. No overt cardiac contraindications to the above GI evaluation which should transpire in the hospital setting. Severe symptomatic aortic valve stenosis. Recommend cardiology follow-up shortly after discharge to initiate outpatient aortic valve replacement workup. Patient will require complete dental evaluation, bilateral carotid duplex (? Bilateral carotid bruits versus transmitted systolic murmur), repeat diagnostic cardiac catheterization, and referral to the [facility] as discussed. Shortness of breath. Suspect secondary to the above however patient is a reformed longstanding cigarette user who notes recent unplanned weight loss and occasional night sweats. Chest x-ray unremarkable. Consider further evaluation - CT scan of the chest, PFT's, outpatient pulmonary evaluation. DM Type II: Hold home agents, SSI regimen while inpatient. BSG checks ACHS. Most recent Hgb A1c was 4.9% on 04/05/2024. Other Chronic Medical Conditions: Dyslipidemia/BPH/Glaucoma/HTN --> Can continue home medications for these specific conditions. Continue CPAP HS for REMBERTO. DVT Prophylaxis: SCDs/TEDs for now ISO above. Code Status: FULL CODE PCP: Declan Dejesus MD Disposition: Med/Tele Admission and Anticipated Discharge Date Admission Date: April 06, 2024 Subjective Pt seen in follow up of anemia, poss. GI bleed, severe GI and cardiology consulted Hgb improved this AM trans. sat 6% - gave IV iron yesterday Plan for EGD on Tuesday Currently pt is sitting up in bed in NAD Denies any abd. pain but feels that he had more BMs d/t oral contrast he got no fever, chills, chest pain or shortness of breath at rest Review of Systems Review of Systems: All systems reviewed & are unremarkable except as noted in Subjective Physical Exam Physical Exam: General: Obese M, NAD HEENT: Normocephalic, atraumatic. Conjunctivae normal, anicteric sclerae. Ex ternal ear and nose normal Respiratory: Normal respiratory effort, lungs clear to auscultation, no wheeze/rales/rhonchi. Cardiovascular: Regular rate, rhythm, + systolic murmur Abdomen/GI: Normal bowel sounds, soft, mild distention Extremities/Musculoskeletal: extremities motor strength intact, moves all extremities. Neurologic: awake, alert, oriented, answers appropriately, speech fluent, moves extremities Skin: warm/dry. Results & Data Results & Data Vital Signs (Past 12 Hours) Vital Signs Temp Pulse Pulse Resp BP BP Pulse Ox 04/08/24 07:13 68 04/08/24 07:13 04/08/24 07:07 36.4 C L 79 18 107/61 94 04/08/24 03:24 36.4 C L 73 20 128/75 96 04/08/24 03:08 77 26 H 95 04/08/24 00:12 56 L 04/07/24 23:06 36.3 C L 67 20 128/82 98 04/07/24 22:10 69 21 98 04/07/24 19:55 36.8 C 71 20 109/68 94 O2 Del Method FiO2 04/08/24 07:13 04/08/24 07:13 Nasal Cannula 04/08/24 07:07 Room Air 04/08/24 03:24 CPAP 04/08/24 03:08 21 04/08/24 00:12 04/07/24 23:06 CPAP 04/07/24 22:10 04/07/24 19:55 Room Air Laboratory Results 04/08/24 04/08/24 04/08/24 Range/Units 17:01 12:06 08:04 Hgb (14.0-18.0) g/dl Hct (42.0-52.0) % POC Glucose 126 H 197 H 206 H (70-99) mg/dl 04/08/24 04/07/24 Range/Units 07:52 20:30 Hgb 9.3 L (14.0-18.0) g/dl Hct 29.8 L (42.0-52.0) % POC Glucose 163 H (70-99) mg/dl Medications Administered Current Inpatient Medications Acetaminophen (Acetaminophen 325 Mg Tab) 650 mg PO Q4H PRN PRN Reason: Pain or Fever Stop: 05/06/24 14:36 Dextrose (Dextrose 50% 50 Ml Syringe) 25 - 50 ml IV UD PRN; Protocol PRN Reason: Hypoglycemia Protocol Stop: 05/06/24 14:36 Finasteride (Finasteride 5 Mg Tab) 5 mg PO QAM [facility]; Protocol Stop: 05/07/24 08:59 Last Admin: 04/08/24 07:41 Dose: 5 mg Glucagon (Glucagon For Inj 1 Mg Vial) 1 mg SQ UD PRN; Protocol PRN Reason: Hypoglycemia Protocol Stop: 05/06/24 14:36 Glucose (Glucose 40% Gel 15 Gm Tube) 15 - 30 gm PO UD PRN; Protocol PRN Reason: Hypoglycemia Protocol Stop: 05/06/24 14:36 Glucose (Glucose 10 Tab/Tube) 4 - 8 tab PO UD PRN; Protocol PRN Reason: Hypoglycemia Protocol Stop: 05/06/24 14:36 Pantoprazole Sodium (Protonix) 40 mg in 10 mls @ 5 mls/min IV BID DANYEL Stop: 05/06/24 20:59 Last Admin: 04/08/24 07:41 Dose: 5 mls/min Insulin Aspart (Insulin Aspart Per Unit Charge) 0 units SC ACHS DANYEL Stop: 05/06/24 16:29 Last Admin: 04/07/24 20:49 Dose: 1 units Latanoprost (Latanoprost 0.005% Op Soln 2.5 Ml Btl) 1 drops OPB PM DANYEL Stop: 05/06/24 20:59 Last Admin: 04/07/24 20:49 Dose: 1 drops Losartan Potassium (Losartan Potassium 50 Mg Tab) 50 mg PO QAM DANYEL Stop: 05/07/24 08:59 Last Admin: 04/08/24 07:41 Dose: 50 mg Magnesium Hydroxide (Magnesium Hydroxide Susp 30 Ml Udc) 30 ml PO Q12H PRN PRN Reason: Constipation Stop: 05/06/24 14:36 Miscellaneous (Carbohydrates For Hypoglycemia ) 15 - 30 gm PO UD PRN PRN Reason: Hypoglycemia Protocol Stop: 05/06/24 14:36 Multivitamins (Multivitamin Tab) 1 tab PO QAM DANYEL Stop: 05/07/24 08:59 Last Admin: 04/08/24 07:41 Dose: 1 tab Ondansetron HCl (Ondansetron Inj 2 Mg/Ml 2 Ml Vial) 4 mg IV Q6H PRN PRN Reason: Nausea Stop: 05/06/24 14:36 Polyethylene Glycol (Polyethylene (Miralax) 17 Gm Pack) 17 gm PO DAILY PRN PRN Reason: Constipation Stop: 05/06/24 14:36 Rosuvastatin Calcium (Rosuvastatin Calcium 20 Mg Tab) 40 mg PO HS DANYEL Stop: 05/06/24 20:59 Last Admin: 04/07/24 20:49 Dose: 40 mg Tamsulosin HCl (Tamsulosin Hcl 0.4 Mg Cap) 0.4 mg PO HS DANYEL Stop: 05/06/24 20:59 Last Admin: 04/07/24 20:49 Dose: 0.4 mg Timolol Maleate (Timolol Maleate 0.25% Op Soln 5 Ml Btl) 2 drops OP DAILY DANYEL Stop: 05/07/24 08:59 Last Admin: 04/08/24 07:42 Dose: 2 drops
[2024-04-08 08:10] LABS: Hematocrit (blood only) 29.8 % (42.0-52.0); Hemoglobin 9.3 g/dl (14.0-18.0)
--- NOTE | 2024-04-08 11:33 | Cardiology Progress Note ---
Date of Service April 08, 2024 Assessment & Plan (1) Symptomatic anemia: (2) Occult blood in stools: (3) Acute on chronic anemia: (4) Symptomatic severe aortic stenosis with normal ejection fraction: (5) REMBERTO on CPAP: (6) Dyslipidemia: (7) Diabetes mellitus, type II: (8) HTN (hypertension): Plan Symptomatic anemia. Occult blood in stool. Patient evaluated by GI. EGD planned for Tuesday unless urgently indicated over the weekend. If EGD negative, outpatient colonoscopy planned. Possibility of AVMs and Heyde Syndrome noted and discussed. No overt cardiac contraindications to the above GI evaluation which should transpire in the hospital setting. Severe symptomatic aortic valve stenosis. Recommend cardiology follow-up shortly after discharge to initiate outpatient aortic valve replacement workup. Patient will require complete dental evaluation, bilateral carotid duplex (? Bilateral carotid bruits versus transmitted systolic murmur), repeat diagnostic cardiac catheterization, and referral to the [facility] as discussed. Admission and Anticipated Discharge Date Admission Date: April 06, 2024 Subjective Patient seen in cardiology follow-up. No acute cardiology complaints. Denies any blood per rectum. Telemetry feels sinus rhythm in the 60s. Physical Exam Physical Exam: General: no acute distress and stated age Eyes: conjunctiva are pink and non-injected, sclera clear Neck: normal jugular venous pulse, no hepatojugular reflux Chest: normal shape and normal respiratory effort Lungs: clear to auscultation and percussion Cardiac Exam: - Regular rate and rhythm, 2/6 systolic murmur heard best at the right sternal border. Abdomen: abdomen soft, non-tender, no abnormal masses and no hepatosplenomegaly Musculoskeletal: no gait disturbance, no weakness Extremities: no edema and no cyanosis Neuro:awake, conversant, follows commands, no focal motor deficits Results & Data Vital Signs (Past 12 Hours) Vital Signs Temp Pulse Pulse Resp BP BP Pulse Ox 04/08/24 10:58 36.4 C L 73 18 112/66 96 04/08/24 07:13 68 04/08/24 07:13 04/08/24 07:07 36.4 C L 79 18 107/61 94 04/08/24 03:24 36.4 C L 73 20 128/75 96 04/08/24 03:08 77 26 H 95 04/08/24 00:12 56 L O2 Del Method FiO2 04/08/24 10:58 Room Air 04/08/24 07:13 04/08/24 07:13 Nasal Cannula 04/08/24 07:07 Room Air 04/08/24 03:24 CPAP 04/08/24 03:08 21 04/08/24 00:12
[2024-04-08] MEDS: CALCIUM CARBONATE 500 MG CHEWABLE TAB PO ONE (17:40)
[2024-04-09 06:27] LABS: Hematocrit (blood only) 31.7 % (42.0-52.0); Hemoglobin 10.3 g/dl (14.0-18.0); Mean Corpuscular Hemoglobin 32.9 pg (25.0-34.0); Mean Corpuscular Hgb Conc 32.5 g/dL (32.0-36.0); Mean Corpuscular Volume 101.3 fL (80.0-100.0); Mean Platelet Volume 10.8 fL (9.4-12.4); Platelet Count 245 K/uL (130-400); RDW Coefficient of Variation 14.9 % (11.5-14.5); RDW Standard Deviation 55.6 fL (36.4-46.3); Red Blood Count 3.13 M/uL (4.70-6.10); White Blood Count 8.53 K/ul (4.8-10.8)
[2024-04-09 06:43] LABS: BUN Creatinine Ratio 9.9 (10-20); Calcium 9.7 mg/dl (8.6-10.3); Creatinine Clr Calc Pharmacy 101.7 ml/min; Magnesium 2.3 mg/dl (1.7-2.4); Phosphorus 3.7 mg/dl (2.5-4.9); Potassium 4.3 mmol/L (3.5-5.1)
--- NOTE | 2024-04-09 07:21 | Anesthesiology Consultation ---
Date of Service April 09, 2024 Assessment & Plan Chart Review Chart Review: Acceptable Risk for Surgery Consults Requested none ASA ASA4 Proposed Anesthesia Anesthesia Type: MAC Risk / Benefits Reviewed With: PT / POA / Parent / Guardian, Accepts Plan and Informed Consent Obtained Additional Comments: discussed risks if mac with severe as and ot accepts History Surgery Operation Date: 04/09/24 17:10 Proposed Procedures p Esophagogastroduodenoscopy Valentin Hanson MD Height/Weight Height: 5 ft 10 in Weight: 102.3 kg Allergies Allergy/AdvReac Type Severity Reaction Status Date / Time nickel Allergy Unknown RASH Verified 06/29/23 08:10 tetanus toxoid, adsorbed Allergy Unknown ITCHING Verified 06/29/23 08:10 empagliflozin AdvReac Unknown URINARY Verified 06/29/23 08:10 [From Jardiance] TRACT INFECTION lisinopril AdvReac Unknown Cough Verified 06/29/23 08:10 Medications Home Medications Medication Instructions Recorded Confirmed Last Taken dutasteride 0.5 mg capsule 0.5 mg PO QAM 08/11/18 04/06/24 11/02/23 ferrous sulfate 325 mg (65 mg 325 mg PO BID 08/11/18 04/06/24 11/02/23 iron) tablet (iron) losartan 25 mg tablet 50 mg PO QAM 08/11/18 04/06/24 11/02/23 metformin 1,000 mg tablet 1,000 mg PO BID 08/11/18 04/06/24 11/02/23 multivitamin 1 tab PO QAM 08/11/18 04/06/24 06/28/23 rosuvastatin 40 mg tablet 40 mg PO HS 08/11/18 04/06/24 06/28/23 glimepiride 2 mg tablet 2 mg PO QAM 08/22/20 04/06/24 11/02/23 tamsulosin 0.4 mg capsule 0.4 mg PO HS 10/01/20 04/06/24 06/28/23 latanoprost 0.005 % eye drops 1 drp OPB PM 11/02/23 04/06/24 Unknown timolol maleate 0.25 % eye drops 2 drp OPB DAILY 11/02/23 04/06/24 Unknown Tylenol Ex Str Rapid Release 1,000 mg PO DIRECTED PRN Pain 04/06/24 04/06/24 Unknown aspirin 81 mg tablet,delayed 81 mg PO QAM 04/06/24 04/06/24 Unknown release Active Medications Generic Name Dose Route Start Last Admin Trade Name Veronica CUMMINS Reason Stop Dose Admin Finasteride 5 mg 04/07/24 09:00 04/09/24 07:40 Finasteride 5 Mg Tab PO 05/07/24 08:59 Not Given QAM DANYEL Protocol Pantoprazole Sodium 40 mg in 10 mls @ 5 mls/min 04/06/24 21:00 04/09/24 07:40 Protonix IV 05/06/24 20:59 5 mls/min BID DANYEL Administration Insulin Aspart 0 units 04/06/24 16:30 04/08/24 21:06 Insulin Aspart Per Unit Charge SC 05/06/24 16:29 Not Given ACHS DANYEL Latanoprost 1 drops 04/06/24 21:00 04/08/24 21:06 Latanoprost 0.005% Op Soln 2.5 Ml Btl OPB 05/06/24 20:59 1 drops PM DANYEL Administration Losartan Potassium 50 mg 04/07/24 09:00 04/09/24 07:40 Losartan Potassium 50 Mg Tab PO 05/07/24 08:59 Not Given QAM DANYEL Multivitamins 1 tab 04/07/24 09:00 04/09/24 07:40 Multivitamin Tab PO 05/07/24 08:59 Not Given QAM DANYEL Rosuvastatin Calcium 40 mg 04/06/24 21:00 04/08/24 21:06 Rosuvastatin Calcium 20 Mg Tab PO 05/06/24 20:59 40 mg HS DANYEL Administration Tamsulosin HCl 0.4 mg 04/06/24 21:00 04/08/24 21:06 Tamsulosin Hcl 0.4 Mg Cap PO 05/06/24 20:59 0.4 mg HS DANYEL Administration Timolol Maleate 2 drops 04/07/24 09:00 04/09/24 07:40 Timolol Maleate 0.25% Op Soln 5 Ml Btl OP 05/07/24 08:59 2 drops DAILY DANYEL Administration NPO Date Last Intake of Fluids: 04/08/24 Time Last Intake of Fluids: 19:00 Date Last Intake of Solids: 04/08/24 Time Last Intake of Solids: 17:00 Past Medical History Medical History (Updated 04/09/24 @ 07:17 by Shara Mackey DO) Aortic stenosis, severe BPH (benign prostatic hyperplasia) REMBERTO on CPAP Obesity Dyslipidemia HTN (hypertension) Diabetes mellitus, type II History of colon polyps BENIGN Scoliosis Osteoarthritis BPH (benign prostatic hyperplasia) GERD (gastroesophageal reflux disease) Not an issue recently Diabetes mellitus, type 2 Anemia Glaucoma RESOLVED S/P SURGICAL INTERVENTION Hyperlipidemia Sleep apnea CPAP, COMPLIANT. Exercise / Class Metabolic Activity III < 4 Walking/Shop/Light housework in october 2023 pt syncopal while doing yardwork Past Family History Family History Grandmother (Maternal) Family history of diabetes mellitus Mother Family history of esophageal cancer Sister Family history of diabetes mellitus Past Surgical History Surgical History (Updated 04/09/24 @ 07:17 by Shara Mackey DO) History of tonsillectomy Hx of repair of rotator cuff "bilateral" History of total right knee replacement (TKR) History of cardiac cath ABNORMAL STRESS TEST IN 2016 - NO STENTS. 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) History of repair of rotator cuff RT/LEFT History of esophagogastroduodenoscopy (EGD) History of colonoscopy History of tooth extraction History of tonsillectomy History of adenoidectomy History of myringotomy Past Anesthesia History No Hx of Anesthesia Complications and No Family Hx of Anesthesia Complications History of PONV No Hx of PONV and No Hx of Motion Sickness Social History Smoking Status: Former smoker tobacco type: cigarettes Do You Dip or Chew Tobacco: No Hx Alcohol Use: Yes Alcohol type: hard liquor alcohol intake frequency: holidays/special occasions only Hx Substance Use: No substance use type: does not use Physical Exam Vital Signs Last Vital Signs Temp 36.3 C L 04/09/24 08:12 Pulse 74 04/09/24 08:12 Resp 16 04/09/24 08:12 BP 114/73 04/09/24 08:12 Pulse Ox 95 04/09/24 08:12 O2 Del Method Room Air 04/09/24 08:12 FiO2 21 04/08/24 03:08 Constitutional + obese ENMT Mouth: + dentition abnormality (missing both front kateral teeth, scattered others missing none loose); no TMJ abnormality Thyromental Distance: > or= 3.5 Finger Breadths Mallampati Class: II Neck normal visual inspection and trachea midline; neck extension not limited Respiratory normal respiratory effort Auscultation: lungs clear to auscultation bilaterally Cardiovascular Rate/Rhythm: regular rate and regular rhythm Heart Sounds: + murmur (4/6sem ) Musculoskeletal Spine: normal cervical ROM Extremities: full ROM of extremities Neurologic moves all extremities Psychiatric Orientation: alert and oriented x 3 Testing Laboratory Results 04/09/24 05:57 04/09/24 05:57 PT 10.9 Seconds (9.0-12.0) 04/06/24 11:08 INR 1.0 (0.9-1.1) 04/06/24 11:08 APTT 23 Seconds (21-31) 04/06/24 11:08 Hemoglobin A1c 4.4 % (4.5-5.6) L 04/07/24 05:24 Blood Type AB Positive 04/06/24 11:02 Antibody Screen NEGATIVE 04/06/24 11:02 04/08/24 20:48 POC Glucose 128 H Electrocardiogram Date: 04/06/24 Findings: + NSR @ (95bpm with LAD) Chest X-Ray Date: 04/06/24 Findings: + NAD Echocardiogram Date: 04/06/24 EF: 55-60% LV Function: normal Other Findings: + atrial enlargement (mild LAE), + LVH (mild concen) and + diastolic dysfunction (gr1) Valvular Disease: + (severe HAL 1cm2 peak velocity 4m/s)
--- NOTE | 2024-04-09 08:20 | Cardiology Progress Note ---
Date of Service April 09, 2024 Assessment & Plan (1) Symptomatic severe aortic stenosis with normal ejection fraction: Plan 68 yo man presenting with GIB S/P Endoscopy - Pathology noted Pt will need to have Aortic Valve evaluation. Potential referral to Valve Clinic Please call back with any additional questions 52 min spent addressing challenges, educating and advancing daily plan of care Paul Castillo Admission and Anticipated Discharge Date Admission Date: April 06, 2024 Subjective Events Overnight: No events EGD performed without complications noted Telemetry - No events reported Subjective: No complaints Review of Systems Review of Systems: All systems reviewed & are unremarkable except as noted in HPI & below Physical Exam Physical Exam: Obese Joselo cheeks No elevation in JVP S1S2 2-3/6 Systolic Murmur c/w - runs through second heart sound CTA B No C/C/E Warm and perfused Results & Data Vital Signs (Past 12 Hours) Vital Signs Temp Pulse Pulse Resp BP Pulse Ox O2 Del Method 04/09/24 07:26 36.5 C 86 20 119/74 95 Room Air 04/09/24 07:09 100 H 04/09/24 07:09 Room Air 04/09/24 05:42 84 18 96 04/09/24 03:46 36.2 C L 89 20 123/76 92 Room Air, CPAP 04/08/24 23:42 36.3 C L 81 20 114/73 92 Room Air 04/08/24 23:16 74 04/08/24 21:32 Room Air 04/08/24 21:00 77 14 97 Laboratory Results CBC 04/09/24 Range/Units 05:57 WBC 8.53 (4.8-10.8) K/ul RBC 3.13 L (4.70-6.10) M/uL Hgb 10.3 L (14.0-18.0) g/dl Hct 31.7 L (42.0-52.0) % Plt Count 245 (130-400) K/uL Comprehensive Metabolic Panel 04/09/24 Range/Units 05:57 Sodium 139 (136-145) mmol/L Potassium 4.3 (3.5-5.1) mmol/L Chloride 105 (98-107) mmol/L Carbon Dioxide 27 (21-32) mmol/L BUN 8 (6-23) mg/dl Creatinine 0.81 (0.6-1.4) mg/dl Glucose 202 H (70-99(Fasting)) mg/dl Calcium 9.7 (8.6-10.3) mg/dl Intake and Output 04/08/24 04/09/24 04/09/24 22:59 06:59 14:59 Intake Total 700 / 1180 Balance 700 / 1180 Intake: Oral 700 / 1180 Other: Other Intake Source sips Weight 102.3 kg 102.3 kg Weight Measurement Method Built in [facility] Patient Weight 04/10/24 06:59 Weight 102.3 kg Medications Administered Current Inpatient Medications Acetaminophen (Acetaminophen 325 Mg Tab) 650 mg PO Q4H PRN PRN Reason: Pain or Fever Stop: 05/06/24 14:36 Dextrose (Dextrose 50% 50 Ml Syringe) 25 - 50 ml IV UD PRN; Protocol PRN Reason: Hypoglycemia Protocol Stop: 05/06/24 14:36 Finasteride (Finasteride 5 Mg Tab) 5 mg PO QAM DANYEL; Protocol Stop: 05/07/24 08:59 Last Admin: 04/09/24 07:40 Dose: Not Given Glucagon (Glucagon For Inj 1 Mg Vial) 1 mg SQ UD PRN; Protocol PRN Reason: Hypoglycemia Protocol Stop: 05/06/24 14:36 Glucose (Glucose 40% Gel 15 Gm Tube) 15 - 30 gm PO UD PRN; Protocol PRN Reason: Hypoglycemia Protocol Stop: 05/06/24 14:36 Glucose (Glucose 10 Tab/Tube) 4 - 8 tab PO UD PRN; Protocol PRN Reason: Hypoglycemia Protocol Stop: 05/06/24 14:36 Pantoprazole Sodium (Protonix) 40 mg in 10 mls @ 5 mls/min IV BID DANYEL Stop: 05/06/24 20:59 Last Admin: 04/09/24 07:40 Dose: 5 mls/min Insulin Aspart (Insulin Aspart Per Unit Charge) 0 units SC ACHS DANYEL Stop: 05/06/24 16:29 Last Admin: 04/08/24 21:06 Dose: Not Given Latanoprost (Latanoprost 0.005% Op Soln 2.5 Ml Btl) 1 drops OPB PM DANYEL Stop: 05/06/24 20:59 Last Admin: 04/08/24 21:06 Dose: 1 drops Losartan Potassium (Losartan Potassium 50 Mg Tab) 50 mg PO QAM ADNYEL Stop: 05/07/24 08:59 Last Admin: 11/25/24 07:40 Dose: Not Given Magnesium Hydroxide (Magnesium Hydroxide Susp 30 Ml Udc) 30 ml PO Q12H PRN PRN Reason: Constipation Stop: 05/06/24 14:36 Miscellaneous (Carbohydrates For Hypoglycemia ) 15 - 30 gm PO UD PRN PRN Reason: Hypoglycemia Protocol Stop: 05/06/24 14:36 Multivitamins (Multivitamin Tab) 1 tab PO QAM DANYEL Stop: 05/07/24 08:59 Last Admin: 04/09/24 07:40 Dose: Not Given Ondansetron HCl (Ondansetron Inj 2 Mg/Ml 2 Ml Vial) 4 mg IV Q6H PRN PRN Reason: Nausea Stop: 05/06/24 14:36 Polyethylene Glycol (Polyethylene (Miralax) 17 Gm Pack) 17 gm PO DAILY PRN PRN Reason: Constipation Stop: 05/06/24 14:36 Rosuvastatin Calcium (Rosuvastatin Calcium 20 Mg Tab) 40 mg PO HS DANYEL Stop: 05/06/24 20:59 Last Admin: 04/08/24 21:06 Dose: 40 mg Tamsulosin HCl (Tamsulosin Hcl 0.4 Mg Cap) 0.4 mg PO HS DANYEL Stop: 05/06/24 20:59 Last Admin: 04/08/24 21:06 Dose: 0.4 mg Timolol Maleate (Timolol Maleate 0.25% Op Soln 5 Ml Btl) 2 drops OP DAILY DANYEL Stop: 05/07/24 08:59 Last Admin: 04/09/24 07:40 Dose: 2 drops
--- NOTE | 2024-04-09 08:30 | Gastroenterology Progress Note ---
Date of Service April 09, 2024 Assessment & Plan (1) Symptomatic anemia: Plan: 68 year old male with history of T2DM, dyslipidemia, diabetic nephropathy, REMBERTO on CPAP, HTN, aortic valve stenosis, severe obesity, BPH with obstruction/lower urinary tract symptoms, benign paroxysmal vertigo, bilateral primary open-angle glaucoma, iron deficiency anemia and depression admitted through the ED w/ symptomatic acute on chronic anemia and heme-positive dark stools, weight loss. He endorses daily ASA and recent NSAIDs use alternating with Tylenol related to some MSK pain. Concern for gastritis, PUD, esophagitis vs other source of occult GI bleeding - Maintain NPO status for EGD evaluation this AM - Trend H&H - Monitor and document GI output - Transfuse PRN per primary team - Stop NSAIDs - Continue IV PPI twice daily - If EGD is negative, should have a repeat outpatient colonoscopy with his regular GI providers through [facility] and this will need to be arranged by this hospitalist service. We appreciate assistance in the management of any serological abnormality and corrections to include: hemoglobin >7, INR <2, platelets >50,000, potassium levels >3.5 but <5.3, and sodium levels within 5 points of the reference range prior to endoscopic evaluation. Thank you for allowing us to participate in the care of this patient. Please call with any acute changes, questions or concerns. Please see addendum below with additional recommendation from my supervising physician. Admission and Anticipated Discharge Date Admission Date: April 06, 2024 Supervising Physician Co-Signing Physician Notes .attestation I examined the patient and reviewed the medical record, laboratory data and i maging studies. I agree with the assessment and plan of care as suggested by the advanced practice provider. Subjective Pt was seen and evaluated, chart reviewed. Remains NPO for EGD this AM for eval of acute on chronic anemia and dark stools. Notes his stools seem to be more brown now. Denies any black or bloody output. Abd pain is also improving. Review of Systems Review of Systems: All other findings negative except as noted in HPI. Physical Exam Constitutional: WD/WN, vitals as above Respiratory: normal respiratory effort, lungs clear to auscultation Cardiovascular: Rate/Rhythm: regular rate and regular rhythm Gastrointestinal (Abdomen): normal bowel sounds, soft, nontender, no hepatosplenomegaly Skin: no rashes, warm and dry Results & Data Results & Data Vital Signs (Past 12 Hours) Vital Signs Temp Pulse Pulse Resp BP BP Pulse Ox 04/09/24 08:12 36.3 C L 74 16 114/73 95 04/09/24 07:26 36.5 C 86 20 119/74 95 04/09/24 07:09 100 H 04/09/24 07:09 04/09/24 05:42 84 18 96 04/09/24 03:46 36.2 C L 89 20 123/76 92 04/08/24 23:42 36.3 C L 81 20 114/73 92 04/08/24 23:16 74 04/08/24 21:32 04/08/24 21:00 77 14 97 O2 Del Method 04/09/24 08:12 Room Air 04/09/24 07:26 Room Air 04/09/24 07:09 04/09/24 07:09 Room Air 04/09/24 05:42 04/09/24 03:46 Room Air, CPAP 04/08/24 23:42 Room Air 04/08/24 23:16 04/08/24 21:32 Room Air 04/08/24 21:00 Laboratory Results 04/09/24 04/08/24 04/08/24 Range/Units 05:57 20:48 17:01 WBC 8.53 (4.8-10.8) K/ul RBC 3.13 L (4.70-6.10) M/uL Hgb 10.3 L (14.0-18.0) g/dl Hct 31.7 L (42.0-52.0) % MCV 101.3 H (80.0-100.0) fL MCH 32.9 (25.0-34.0) pg MCHC 32.5 (32.0-36.0) g/dL RDW Std Deviation 55.6 H (36.4-46.3) fL RDW Coeff of Freddie 14.9 H (11.5-14.5) % Plt Count 245 (130-400) K/uL MPV 10.8 (9.4-12.4) fL Sodium 139 (136-145) mmol/L Potassium 4.3 (3.5-5.1) mmol/L Chloride 105 (98-107) mmol/L Carbon Dioxide 27 (21-32) mmol/L Anion Gap 7 (3-11) BUN 8 (6-23) mg/dl Creatinine 0.81 (0.6-1.4) mg/dl Est Cr Clr Drug Dosing 101.7 ml/min eGFR 94.85 BUN/Creatinine Ratio 9.9 L (10-20) Glucose 202 H (70-99(Fasting)) mg/dl POC Glucose 128 H 126 H (70-99) mg/dl Calcium 9.7 (8.6-10.3) mg/dl Phosphorus 3.7 (2.5-4.9) mg/dl Magnesium 2.3 (1.7-2.4) mg/dl 04/08/24 Range/Units 12:06 WBC (4.8-10.8) K/ul RBC (4.70-6.10) M/uL Hgb (14.0-18.0) g/dl Hct (42.0-52.0) % MCV (80.0-100.0) fL MCH (25.0-34.0) pg MCHC (32.0-36.0) g/dL RDW Std Deviation (36.4-46.3) fL RDW Coeff of Freddie (11.5-14.5) % Plt Count (130-400) K/uL MPV (9.4-12.4) fL Sodium (136-145) mmol/L Potassium (3.5-5.1) mmol/L Chloride (98-107) mmol/L Carbon Dioxide (21-32) mmol/L Anion Gap (3-11) BUN (6-23) mg/dl Creatinine (0.6-1.4) mg/dl Est Cr Clr Drug Dosing ml/min eGFR BUN/Creatinine Ratio (10-20) Glucose (70-99(Fasting)) mg/dl POC Glucose 197 H (70-99) mg/dl Calcium (8.6-10.3) mg/dl Phosphorus (2.5-4.9) mg/dl Magnesium (1.7-2.4) mg/dl PG Care Time/CCT Total # of Minutes Spent Total Time Spent with Patient: Total time spent is greater than 50% in coordination of care (as documented) at patient's floor/unit and/or counseling patient: Coding Level of Care Code None Diagnoses Symptomatic anemia D64.9
--- NOTE | 2024-04-09 10:12 | GI REPORT ---
[facility] Patient: MARY KATE MARQUEZ : 1955 Sex at : Male Age: 68 Years Procedure: Upper GI endoscopy Date: 04/09/2024 Attending Physician: Toñito Hanson MD Referring MD: Maximus Mcdaniel Md Indications: - Anemia and melena Medications: - Monitored Anesthesia Care Complications: - None Estimated Blood Loss: - Estimated blood loss: None. Procedure: - The egd scope was introduced through the mouth and advanced to the second part of the duodenum. - The upper GI endoscopy was accomplished with ease. - The patient tolerated the procedure well. Findings: - Irregular GE Junction Biopsy done for Barretts Erosions in the antrum and body of the stomach Biopsy done for H. Pylorii Duodenitis in the bulb Impression: - Irregular GE Junction Biopsy done for Barretts Erosions in the antrum and body of the stomach Biopsy done for H. Pylorii Duodenitis in the bulb Recommendation: - PPI BID. Avoid NSAIDS. FU pathology. FU as OP with gastroenterology Procedure Code(s): - 27553, Esophagogastroduodenoscopy, flexible, transoral; diagnostic, including collection of specimen(s) by brushing or washing, when performed (separate procedure) CPT(R) - 2023 copyright [employer]. All Rights Reserved. The CPT codes, CCI edits and ICD codes generated are intended as suggestions and were generated based on input data. These codes are preliminary and upon nail making machine setter review may be revised to meet current compliance and payer requirements. The provider is responsible for the final determination of appropriate codes, and modifiers. Toñito Hanson MD This document has been electronically signed. Note Initiated:04/09/2024 Note Completed:04/09/2024 10:11 AM \\[email or web address]\Results\[email or web address]\[id number]
--- NOTE | 2024-04-09 11:03 | Anesthesiology Progress Note ---
Date of Service April 09, 2024 Anesthesia Post Procedure Vital Signs Vital Signs: Temp Pulse Pulse Resp BP BP Pulse Ox 04/09/24 10:38 66 16 124/73 97 04/09/24 10:23 66 16 111/61 95 04/09/24 10:08 78 18 110/74 97 04/09/24 08:12 36.3 C L 74 16 114/73 95 04/09/24 07:26 36.5 C 86 20 119/74 95 04/09/24 07:09 100 H 04/09/24 07:09 04/09/24 05:42 84 18 96 04/09/24 03:46 36.2 C L 89 20 123/76 92 04/08/24 23:42 36.3 C L 81 20 114/73 92 04/08/24 23:16 74 04/08/24 21:32 04/08/24 21:00 77 14 97 04/08/24 20:02 36.6 C 89 20 94/60 L 95 04/08/24 15:34 89 04/08/24 15:22 36.5 C 83 18 119/78 95 O2 Del Method 04/09/24 10:38 Room Air 04/09/24 10:23 Room Air 04/09/24 10:08 Room Air 04/09/24 08:12 Room Air 04/09/24 07:26 Room Air 04/09/24 07:09 04/09/24 07:09 Room Air 04/09/24 05:42 04/09/24 03:46 Room Air, CPAP 04/08/24 23:42 Room Air 04/08/24 23:16 04/08/24 21:32 Room Air 04/08/24 21:00 04/08/24 20:02 Room Air 04/08/24 15:34 04/08/24 15:22 Room Air Pain Intensity Bilateral Abdomen: Pain Intensity: 5 Transfer of Care Handoff Completed per policy Notes Mental Status: alert / awake / arousable Patient Amnestic to Procedure: Yes Nausea / Vomiting: adequately controlled Pain: adequately controlled Airway Patency, RR, SpO2: stable & adequate BP & HR: stable & adequate Hydration State: stable & adequate Anesthetic Complications: no major complications apparent and Pt Satisfied with anesthetic care
[2024-04-09] MEDS: KETAMINE HCL 10MG/ML SYR ONE (11:47)
[2024-04-09] MEDS: BENZOCAINE/TETRACAIN/BUTAM 50 APPLN/5 GM CAN EXT ONE (11:47)
[2024-04-09] MEDS: LIDOCAINE 2% 2 ML VIAL/AMP(20MG/ML) INFIL ONE (11:48)
[2024-04-09] MEDS: PROPOFOL IV EMULSION 10 MG/ML 20 ML VIAL IV ONE (11:48)
[2024-04-09 12:08] VITALS: BP 113/70; PULSE 64; RESP 20; TEMP 97.5; O2SAT 94
--- NOTE | 2024-04-09 12:16 | Discharge Summary ---
Date of Service April 09, 2024 Admission HPI Per Admitting Provider Rafael Cantu is a 68y/o M with PMHx significant for DM type II, dyslipidemia, diabetic nephropathy, REMBERTO on CPAP, HTN, severe obesity, BPH with obstruction/lower urinary tract symptoms, benign paroxysmal vertigo, bilateral primary open-angle glaucoma, iron deficiency anemia and depression who presented to the ED via referral from his PCP due to acute on chronic anemia and worsening fatigue. History obtained from the patient, daughter at bedside and associated chart review. He had a PCP appointment yesterday due to increasing fatigue and was found to have a hemoglobin of 8.9 (previous Hgb was 13 in October of this year) therefore he was referred into the ED for further evaluation. Patient reports that he has been dealing with fatigue for several months, however it seems to have worsened lately. He has also been noticing some mild shortness of breath with exertion. He mentions that he can no longer walk around the grocery store for very long without feeling like he is going to pass out. He states that over the past couple of days it feels as if he has "a really bad hangover" but he denies any recent alcohol use. Reports that he has black, tarry stools at baseline ever since starting an iron supplement over 20 years ago. He did not notice any red streaking or bright red blood in his stools lately and his last bowel movement was this morning. No recent fevers recorded however he did report a bout of night sweats last evening. Patient also endorses an approximate 40 pound weight loss over the past couple of months. Mentions he used to weigh 285 pounds. He reports that his appetite has been somewhat suppressed over the past couple of months but over the last couple of days he mentions that he has felt rather insatiable. Other than that he was not making any other lifestyle changes to promote intentional weight loss. Denies any recent nausea or vomiting, he has not noticed any hematuria either. He reports that he has felt a lump in his right lower abdominal quadrant intermittently - which he mentions he first noticed a few months ago. He does experience some intermittent right lower quadrant abdominal pain as well. He does endorse some intermittent centralized chest pressure over the past couple of weeks - which he has taken baby aspirin for at home with relief. He did have an elevated troponin on outpatient lab work yesterday of . His troponin today in the ED was negative and his EKG revealed no overt evidence of acute ischemic changes. He reports that he is to have an echocardiogram done next month for evaluation of a murmur that he has, which he reports has been present for many years. Patient states there was concern from his PCP that he may have a bad valve - patient and his daughter are unsure of which one his PCP was specifically referring to. He has been experiencing intermittent tingling in his upper extremities over the past couple of weeks but denies any swelling or numbness in these extremities. He took all of his home morning medications already. He is a former smoker, no recreational drug use. Hemoglobin stable at 8.8 on admission, Hemoccult stool test positive in the ED. Patient weighed 255 pounds back in May of this year per [facility] records --> His weight today is ~239.4 pounds. Therefore recorded weight loss of 15.6 pounds since May until now. S/p IV Protonix and Pepcid in the ED. Blood consent obtained in the ED as a precautionary measure. Patient does wear CPAP at night for REMBERTO. Admission Exam Per Admitting Provider General: Obese M, NAD, sitting up in bed, very pleasant, conversing appropriately. Daughter at bedside. A+Ox3, euthymic affect. HEENT: Normocephalic, atraumatic. Conjunctivae normal, anicteric sclerae. External ear and nose normal, oropharynx normal. Respiratory: Normal respiratory effort, lungs clear to auscultation, no wheeze/rales/rhonchi. No accessory muscle use. Cardiovascular: Regular rate, rhythm, + systolic murmur, normal peripheral pulses, +1-2 RLE edema. Vessels: No JVD. Abdomen/GI: Normal bowel sounds, distended but soft, mild tenderness to deep palpation in the RLQ, no palpable masses. Extremities/Musculoskeletal: No cyanosis or clubbing, extremities motor strength intact, moves all extremities. Neurologic: No overt focal deficits, CN's II-XI not formally tested but appear grossly intact bilaterally. Skin: No rashes, normal color, warm/dry. Principal Diagnosis Anemia, GI bleed Duodenitis, possible Larsen's esophagus Discharge Exam General: Obese M, NAD HEENT: Normocephalic, atraumatic. Conjunctivae normal, anicteric sclerae. External ear and nose normal Respiratory: Normal respiratory effort, lungs clear to auscultation, no wheeze/rales/rhonchi. Cardiovascular: Regular rate, rhythm, + systolic murmur Abdomen/GI: Normal bowel sounds, soft, mild distention Extremities/Musculoskeletal: extremities motor strength intact, moves all extremities. Neurologic: awake, alert, oriented, answers appropriately, speech fluent, moves extremities Skin: warm/dry. Discharge Data Allergies Allergy/AdvReac Type Severity Reaction Status Date / Time nickel Allergy Unknown RASH Verified 06/29/23 08:10 tetanus toxoid, adsorbed Allergy Unknown ITCHING Verified 06/29/23 08:10 empagliflozin AdvReac Unknown URINARY Verified 06/29/23 08:10 [From Jardiance] TRACT INFECTION lisinopril AdvReac Unknown Cough Verified 06/29/23 08:10 Consultations 04/06/24 11:47 ED Decision to Admit Stat 04/06/24 13:28 Consult Gastroenterology Routine 04/06/24 15:06 Consult Cardiology Routine Procedures Performed Operation Date: 04/09/24 17:10 Actual Procedures p EGD Biopsy Cytology - Toñito Hanson MD Ordered Studies 04/06/24 11:43 CT Abd and Pelvis [CT abd pelvis oral and IV con] Stat FINDINGS: No pneumatosis, free air or portal venous gas is present. There are no hepatic lesions. The spleen, adrenal glands, kidneys and pancreas are unremarkable. There is no biliary or pancreatic ductal dilatation. The caliber and wall thickness of small and large bowel are normal. No intraluminal contrast is identified on this exam to suggest active GI bleed although portions of the bowel are obscured by oral contrast. There is colonic diverticulosis without evidence for acute diverticulitis. The appendix is normal. Bladder is mildly distended. There is no lymphadenopathy. No mass, fluid collection or enlarged lymph nodes are identified. There are small fat-containing bilateral inguinal hernias. IMPRESSION: 1. No acute process within the abdomen or pelvis. 2. No bowel obstruction. No bowel wall thickening. Normal appendix. 3. Sigmoid diverticulosis. No evidence for acute diverticulitis. 4. No findings to indicate active GI bleed by CT. Hospital Course (1) Acute on chronic anemia: (2) Occult blood in stools: Plan 68y/o M with DM type II, dyslipidemia, diabetic nephropathy, REMBERTO on CPAP, HTN, aortic valve stenosis, severe obesity, BPH with obstruction/lower urinary tract symptoms, BPPV, bilateral primary open-angle glaucoma, iron deficiency anemia and depression who presented to the ED via referral from his PCP due to acute on chronic anemia and worsening fatigue. Symptomatic Acute on Chronic Anemia Hemoccult Positive, Likely Upper GI Bleed: Hgb 8.8 on admission, baseline Hgb ~11-13 per chart review. Hemoccult stool positive in the ED. (but pt is also on iron pills) CT A/P- unremarkable, revealed no findings indicative of an active GI bleed. + unintentional weight loss. Most recent colonoscopy performed 06/29/2023 -> Normal appearance of the colon, multiple small and large-mouthed diverticula in the sigmoid colon, internal hemorrhoids. Blood consent obtained in the ED already, type/cross for 2 units of PRBCs as a precaution - on hold for now pending Hgb trend. GI consulted - s/p EGD 04/09/2024 Findings: - Irregular GE Junction Biopsy done for Barretts Erosions in the antrum and body of the stomach Biopsy done for H. Pylorii Duodenitis in the bulb Impression: - Irregular GE Junction Biopsy done for Barretts Erosions in the antrum and body of the stomach Biopsy done for H. Pylorii Duodenitis in the bulb Recommendation: - PPI BID. Avoid NSAIDS. Follow Up pathology. Follow Up as OP with gastroenterology Tick borne panel pending. Anemia panel - folate , B12 wnl, transf. sat 6% -> gave IV iron (venofer) on 04/07 S/p 20mg IV Pepcid, 40mg IV Protonix in the ED. Continue IV Protonix 40mg BID while inpt -> switch to PO lasix 40 mg BID on discharge Trend H/H. Hgb stable 8.8 on 04/07, hgb 9.3 on 04/08 ok to resume ASA, per GI Chest Pressure, Recent Presyncopal Events: Severe Patient with recent episodes of chest pressure and presyncopal events with exertion. Known aortic valve stenosis, + systolic murmur on exam. Troponin x 1 negative, admitting EKG with no overt evidence of ischemia. Echocardiogram obtained showing severe -> cardiology consulted Per cardiology: EGD planned for Tuesday unless urgently indicated over the weekend. If EGD negative, outpatient colonoscopy planned. Possibility of AVMs and Heyde Syndrome noted and discussed. No overt cardiac contraindications to the above GI evaluation which should transpire in the hospital setting. Severe symptomatic aortic valve stenosis. Recommend cardiology follow-up shortly after discharge to initiate outpatient aortic valve replacement workup. Patient will require complete dental evaluation, bilateral carotid duplex (? Bilateral carotid bruits versus transmitted systolic murmur), repeat diagnostic cardiac catheterization, and referral to the [facility] as discussed. Shortness of breath. Suspect secondary to the above however patient is a reformed longstanding cigarette user who notes recent unplanned weight loss and occasional night sweats. Chest x-ray unremarkable. Consider further evaluation - CT scan of the chest, PFT's, outpatient pulmonary evaluation. DM Type II: Hold home agents, SSI regimen while inpatient. BSG checks ACHS. Most recent Hgb A1c was 4.9% on 04/05/2024. Other Chronic Medical Conditions: Dyslipidemia/BPH/Glaucoma/HTN --> Can continue home medications for these speci fic conditions. Continue CPAP HS for REMBERTO. Total Time Total Time Spent Total Time Spent (In Minutes): 40 Discharge Plan Discharge Items Patient Disposition: Home - Self-Care Reason For Visit: ACUTE ON CHRONIC ANEMIA, GI BLEED Discharge Diagnosis: Anemia, GI bleed Duodenitis, possible Larsen's esophagus Activity: Per Instructions section Non-emergency contact: Primary Care Provider, Order Processing Clerk and Script Coordinator Call non-emergency contact if: you have any medication questions and your symptoms worsen Follow-up/Referrals: Declan Dejesus MD [Primary Care Provider] - Diet: Regular Addtl Attending Provider Instructions: Follow up with primary care doctor, mobile development manager and senior living sales counselor. Take pantoprazole 40 mg twice a day. Do not take NSAIDs - such as ibuprofen, Advil, Mortrin, etc. For pain, you can take tylenol 1,000 mg three times a day. Pending Studies at Discharge: Yes Studies:: biopsy from EGD, tickborne panel Stand-Alone Forms: [employer], Smoking Cessation Medications and DC Order Prescriptions: New pantoprazole 40 mg Tablet,Delayed Release (Dr/Ec) 40 mg PO BID Qty: 60 0RF Continued multivitamin Tablet 1 tab PO QAM ferrous sulfate [iron] 325 mg (65 mg iron) Tablet 325 mg PO BID metformin 1,000 mg Tablet 1,000 mg PO BID losartan 25 mg Tablet 50 mg PO QAM dutasteride 0.5 mg Capsule 0.5 mg PO QAM rosuvastatin 40 mg Tablet 40 mg PO HS glimepiride 2 mg Tablet 2 mg PO QAM tamsulosin 0.4 mg Capsule 0.4 mg PO HS latanoprost 0.005 % drops 1 drp OPB PM timolol maleate 0.25 % drops 2 drp OPB DAILY aspirin [Aspir-81] 81 mg Tablet,Delayed Release (Dr/Ec) 81 mg PO QAM Tylenol Ex Str Rapid Release 1,000 mg PO DIRECTED PRN (Reason: Pain) Discharge Orders: Discharge Order (Routine); Ordered 04/09/24 Ordered By: Maximus Mcdaniel Admission Data Admit Date/Time: 04/06/24 12:05 Attending Provider: Maximus Mcdaniel Admit Provider: Mukund Ibanez Primary Care Provider: Declan Dejesus Other Providers: Tigre Castano; Mukund Ibanez; Conor Allen Other Interventions: Discharge Summary Assessment (RN) Last Done: 04/09/24 10:38
[2024-04-09] MEDS: LIDOCAINE 5% 1 PATCH TD STA (13:58)
[2024-04-09] MEDS ORDERED: PANTOprazole 40 MG TAB PO SCH (21:00)
--- NOTE | 2024-04-10 18:22 | Coding Query ---
ANEMIA To promote full compliance with coding requirements relating to patient care, physician participation is requested in all cases of educational therapist uncertainty. Please assist us with the question(s) below: Coding Question(s): The record reflects the following clinical findings: 68-year-old male who is FOCB+ presents with acute on chronic anemia. The medical record reflects the following clinical evidence: Clinical Indicators: H&H 8.3/25.3, FOCB+ Risk Factor(s): Age, weight loss, GI bleed, possible AVM, Treatment: Daily H&H's, type and crossmatch for 2 units, GI consultation, pending EGD, If these findings are indicative of anemia, please specify the known or suspected type by placing an "X" within the parenthesis (x). If other, please document type. ( ) Acute blood loss anemia ( ) Chronic blood loss anemia ( ) Iron deficient anemia ( ) Anemia, unspecified or other ( x) Other: (please specify) acute on chronic anemia Thank you Shawna ALVES
[2024-04-12 00:11] LABS: Babesia microti DNA Not Detected (Not Detected); Q Fever IgG, Phase I NEGATIVE; Q Fever Phase I IgM Antibody NEGATIVE; Q Fever Phase II IgG Antibody NEGATIVE; Q Fever Phase II IgM Antibody NEGATIVE; R. typhi IgG Ab NOT DETECTED; R. typhi IgM Ab NOT DETECTED; RMSF IgG Ab NOT DETECTED; RMSF IgM Ab NOT DETECTED
== END 2024-04-09 15:01 | disposition home or self-care (01) | DRG 379 ==
LOC: ED 10:43 → SUATTDRO 12:05 → 2W 12:05

== ENCOUNTER 2024-04-17 09:09 | Inpatient (IN) ==
[2024-04-17 09:53] LABS: iSTAT Creatinine 0.8 mg/dl (0.6-1.3); iSTAT Hemoglobin 7.5 g/dl (14.0-18.0); iSTAT Ionized Calcium 1.22 mmol/l (1.12-1.32); iSTAT Potassium 4.1 mmol/L (3.3-5.0)
--- NOTE | 2024-04-17 10:04 | Emergency Department Note ---
Impression & Plan Symptomatic anemia, Dizziness, Generalized weakness, Aortic stenosis ED Provider Note NAME: MARY KATE MARQUEZ AGE: 68 SEX: M : 1955 ARRIVES VIA: Walk-In INFORMANT: Patient ED PROVIDER(S): Lloyd Morales MD CHIEF COMPLAINT: Dizziness, anemia, referred. PLAN: Disposition: Admit MEDICAL DECISION MAKING: The patient is a pleasant 68-year-old gentleman with a past medical history of aortic stenosis, hypertension, HLD, REMBERTO on CPAP, GERD, gastritis, iron deficiency anemia who presents to the emergency department via walk-in referred by his PCP office for generalized weakness and lightheadedness where he had outpatient blood work showing hemoglobin of 7.1 after being admitted to this facility recently from 04/06-04/09 for anemia and suspicion for upper GI bleeding where he had endoscopy showing erosive changes of the esophagus, duodenum, and stomach. The patient was treat with Iron infusion and Protonix. Hbg 8.8 to 10.3 on discharge on 04/09. Patient reports he has been taking oral iron supplement and so his stool continues to be black but denies any gross blood in his stool. He denies any chest pain, shortness of breath. He reports some intermittent abdominal cramping but denies discrete abdominal pain. CT of the abdomen pelvis on his prior admission was unremarkable. On evaluation the patient is no distress, afebrile stable vital signs. He has mild pallor. Abdomen is nontender. EKG without overt acute ischemia. CXR with vascular congestion and chronic interstitial thickening and otherwise negative for acute cardiopulmonary process per my personal preliminary review/interpretation. WBC and platelet within normal limits. MCV of 104 and H/H 7.1/23.5, downtrending from the patient's discharge. Chemistry without metabolic acidosis. BUN is 20. Creatinine is within normal limits. LFTs are unremarkable. The patient's iron is 115. Folate and B12 are normal. TSH is normal limits. Given the patient's symptomatic anemia patient was consented for blood transfusion with 1 unit of PRBCs administered. Patient agrees with plan for admission for further management. Case was discussed with Leann Mendoza PAC [facility], who will evaluate the patient for admission. Further management per admitting team. Triage Nursing notes reviewed and agree them. Prior/external medical records reviewed Vital Signs: reviewed Differential diagnosis: Diverticulosis, AVM, coagulopathy, colitis, inflammatory bowel disease, malignancy, Gwendolyn-Ny tear, esophagitis, peptic ulcer disease, variceal bleed, gastritis, epistaxis, fissure, hemorrhoids, as well as other pathologies. ER treatment provided: See below. Diagnostics interpreted by me: ECG: NSR, 88 bpm, no ectopy, no overt ST elevation or depression. Cardiac Monitoring: An order for continuous cardiac monitoring was placed and demonstrated NSR, 88 bpm, no ectopy. Laboratory studies: See below Imaging studies: See below Consultation(s): Leann [facility] PAC with Dr. Martinez [facility] hospitalist HPI: The patient is a pleasant 68-year-old gentleman with a past medical history of aortic stenosis, hypertension, HLD, REMBERTO on CPAP, GERD, gastritis, iron deficiency anemia who presents to the emergency department via walk-in referred by his PCP office for generalized weakness and lightheadedness where he had outpatient blood work showing hemoglobin of 7.1 after being admitted to this facility recently from 04/06-04/09 for anemia and suspicion for upper GI bleeding where he had endoscopy showing erosive changes of the esophagus, duodenum, and stomach. The patient was treat with Iron infusion and Protonix. Hbg 8.8 to 10.3 on discharge on 04/09. Patient reports he has been taking oral iron supplement and so his stool continues to be black but denies any gross blood in his stool. He denies any chest pain, shortness of breath. He reports some intermittent abdominal cramping but denies discrete abdominal pain. CT of the abdomen pelvis on his prior admission was unremarkable. ROS: See above HPI for pertinent positives & negatives. A total of 10 systems reviewed and were otherwise negative. VITALS:See Below PHYSICAL EXAMINATION: GENERAL: Awake, alert, fatigued-appearing, in no distress HENT: Normocephalic, atraumatic. Oropharynx unremarkable. EYES: Normal conjunctiva. Sclera non-icteric. NECK: Supple. No nuchal rigidity. FROM. No JVD. RESPIRATORY: Clear to auscultation. CARDIAC: Regular rate, normal rhythm. 3/6 systolic murmur. Extremities warm and well perfused. Pulses equal. ABDOMEN: Soft, non-distended. No tenderness to palpation. No rebound or guarding. No masses. MUSCULOSKELETAL: Chest examination reveals no tenderness. The back is symmetrical on inspection without obvious abnormality. There is no CVA tenderness to palpation. No joint edema. LOWER EXTREMITIES: Calves are equal size bilaterally and non-tender. No edema. No discoloration. NEURO: Normal sensorium. No sensory or motor deficits noted. SKIN: Mild pallor. No rash or jaundice noted. ED COURSE: Critical Care: I have personally spent greater than 35 minutes of critical care time in the direct management of this patient. This includes bedside care, interpretation of diagnostic studies, and testing, discussion with consultants, patient, and family members, and other required patient management activities. This 35 minutes is in excess of all separately billable procedures. Lloyd Morales MD Past Med/Surg History Problem List (Updated 04/17/24 @ 19:55 by Lloyd Morales MD) Aortic stenosis (Acute) Generalized weakness (Acute) Dizziness (Acute) Symptomatic severe aortic stenosis with normal ejection fraction Symptomatic anemia (Acute) Acute GI bleeding (Acute) Occult blood in stools Acute on chronic anemia Osteoarthritis of right knee Anemia (Acute) Medical History Aortic stenosis, severe BPH (benign prostatic hyperplasia) REMBERTO on CPAP Obesity Dyslipidemia HTN (hypertension) Diabetes mellitus, type II History of colon polyps BENIGN Scoliosis Osteoarthritis BPH (benign prostatic hyperplasia) GERD (gastroesophageal reflux disease) Not an issue recently Diabetes mellitus, type 2 Anemia Glaucoma RESOLVED S/P SURGICAL INTERVENTION Hyperlipidemia Sleep apnea CPAP, COMPLIANT. Surgical History History of tonsillectomy Hx of repair of rotator cuff "bilateral" History of total right knee replacement (TKR) History of cardiac cath ABNORMAL STRESS TEST IN 2017 - NO STENTS. 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) History of repair of rotator cuff RT/LEFT History of esophagogastroduodenoscopy (EGD) History of colonoscopy History of tooth extraction History of tonsillectomy History of adenoidectomy History of myringotomy Family History Grandmother (Maternal) Family history of diabetes mellitus Mother Family history of esophageal cancer Sister Family history of diabetes mellitus Social History Smoking Status: Former smoker Tobacco Type: Cigarettes Second Hand Exposure: No; Do You Dip or Chew Tobacco: No; Hx Alcohol Use: Yes Alcohol type: hard liquor Hx Substance Use: No Preferred Language: Portuguese Communication Ability: Effective Wheat Cleaner Required: No Beliefs That Will Affect Care: None marital status: Current Living Situation: Alone Current Living Situation Comment: currently in rehab facility Other Information That Helps Us Care for You: No Feels Safe at Home: Yes Safety Concerns: Feels Safe At This Time Assistive Devices: CPAP and Glasses Allergies Allergies Allergy/AdvReac Type Severity Reaction Status Date / Time nickel Allergy Unknown RASH Verified 06/29/23 08:10 tetanus toxoid, adsorbed Allergy Unknown ITCHING Verified 06/29/23 08:10 empagliflozin AdvReac Unknown URINARY Verified 06/29/23 08:10 [From Jardiance] TRACT INFECTION lisinopril AdvReac Unknown Cough Verified 06/29/23 08:10 Home Meds Home Medications Medication Instructions Recorded Confirmed dutasteride 0.5 mg capsule 0.5 mg PO QAM 08/11/18 04/17/24 ferrous sulfate 325 mg (65 mg 325 mg PO BID 08/11/18 04/17/24 iron) tablet (iron) losartan 25 mg tablet 50 mg PO QAM 08/11/18 04/17/24 metformin 1,000 mg tablet 1,000 mg PO BID 08/11/18 04/17/24 multivitamin 1 tab PO QAM 08/11/18 04/17/24 rosuvastatin 40 mg tablet 40 mg PO HS 08/11/18 04/17/24 glimepiride 2 mg tablet 2 mg PO QAM 08/22/20 04/17/24 tamsulosin 0.4 mg capsule 0.4 mg PO HS 10/01/20 04/17/24 latanoprost 0.005 % eye drops 1 drp OPB PM 11/02/23 04/17/24 timolol maleate 0.25 % eye drops 2 drp OPB DAILY 11/02/23 04/17/24 Tylenol Ex Str Rapid Release 1,000 mg PO DIRECTED PRN Pain 04/06/24 04/17/24 aspirin 81 mg tablet,delayed 81 mg PO QAM 04/06/24 04/17/24 release Previous Rx's Medication Instructions Recorded pantoprazole 40 mg tablet,delayed 40 mg PO BID #60 tabs 04/09/24 release Results & Data (ED) Vital Signs Vital Signs - 24 hr 04/17/24 09:16 04/17/24 09:41 04/17/24 09:45 Temperature 36.7 C Temperature Source Temporal Artery Scan Pulse Rate 86 87 82 Pulse Rate from SpO2 Sensor 84 Respiratory Rate 20 17 Respiratory Effort / Characteristics Non-Labored Spontaneous Respiratory Depth Normal Blood Pressure 110/68 Blood Pressure Mean 82 Blood Pressure Position Pulse Oximetry 97 95 Oxygen Delivery Method Room Air Room Air Sepsis Recent Fever Within 48 Hours No Sepsis New/Unexplained Change in Mental Status N/A Sepsis Action Taken by Nursing No Action Required 04/17/24 10:00 04/17/24 10:00 04/17/24 10:27 Temperature Temperature Source Pulse Rate 82 83 Pulse Rate from SpO2 Sensor 82 83 Respiratory Rate 21 19 Respiratory Effort / Characteristics Respiratory Depth Blood Pressure 104/61 Blood Pressure Mean 75 Blood Pressure Position Pulse Oximetry 94 95 Oxygen Delivery Method Room Air Room Air Sepsis Recent Fever Within 48 Hours Sepsis New/Unexplained Change in Mental Status Sepsis Action Taken by Nursing 04/17/24 10:30 04/17/24 10:57 04/17/24 11:00 Temperature Temperature Source Pulse Rate 80 Pulse Rate from SpO2 Sensor 79 Respiratory Rate 19 Respiratory Effort / Characteristics Respiratory Depth Blood Pressure 115/58 L 121/70 Blood Pressure Mean 85 78 Blood Pressure Position Pulse Oximetry 91 Oxygen Delivery Method Room Air Sepsis Recent Fever Within 48 Hours Sepsis New/Unexplained Change in Mental Status Sepsis Action Taken by Nursing 04/17/24 11:06 04/17/24 11:09 04/17/24 11:20 Temperature 36.9 C Temperature Source Oral Pulse Rate 77 79 79 Pulse Rate from SpO2 Sensor 78 80 Respiratory Rate 17 18 18 Respiratory Effort / Characteristics Respiratory Depth Blood Pressure 120/70 Blood Pressure Mean 86 Blood Pressure Position Lying Pulse Oximetry 92 96 95 Oxygen Delivery Method Room Air Room Air Sepsis Recent Fever Within 48 Hours Sepsis New/Unexplained Change in Mental Status Sepsis Action Taken by Nursing 04/17/24 11:20 04/17/24 11:32 04/17/24 11:33 Temperature Temperature Source Pulse Rate 78 Pulse Rate from SpO2 Sensor 78 Respiratory Rate 17 Respiratory Effort / Characteristics Respiratory Depth Blood Pressure 120/70 108/56 L Blood Pressure Mean 95 73 Blood Pressure Position Pulse Oximetry 97 Oxygen Delivery Method Room Air Sepsis Recent Fever Within 48 Hours Sepsis New/Unexplained Change in Mental Status Sepsis Action Taken by Nursing 04/17/24 11:35 04/17/24 11:45 04/17/24 11:45 Temperature Temperature Source Pulse Rate 77 79 Pulse Rate from SpO2 Sensor 79 Respiratory Rate 22 18 Respiratory Effort / Characteristics Respiratory Depth Blood Pressure 108/56 L 116/71 Blood Pressure Mean 73 90 Blood Pressure Position Pulse Oximetry 96 96 Oxygen Delivery Method Sepsis Recent Fever Within 48 Hours Sepsis New/Unexplained Change in Mental Status Sepsis Action Taken by Nursing 04/17/24 11:51 Temperature 36.9 C Temperature Source Oral Pulse Rate 76 Pulse Rate from SpO2 Sensor Respiratory Rate 18 Respiratory Effort / Characteristics Respiratory Depth Blood Pressure 128/73 Blood Pressure Mean 91 Blood Pressure Position Pulse Oximetry 97 Oxygen Delivery Method Sepsis Recent Fever Within 48 Hours Sepsis New/Unexplained Change in Mental Status Sepsis Action Taken by Nursing Laboratory Data Attestation: I reviewed the patient's lab results. 04/17/24 09:31 04/17/24 09:31 Lab Results 04/17/24 04/17/24 04/17/24 Range/Units 09:31 09:37 10:05 WBC 7.20 (4.8-10.8) K/ul RBC 2.26 L (4.70-6.10) M/uL Hgb 7.1 L (14.0-18.0) g/dl POC Hgb 7.5 L (14.0-18.0) g/dl Hct 23.5 L (42.0-52.0) % POC Hct 22 L (42-52) % MCV 104.0 H (80.0-100.0) fL MCH 31.4 (25.0-34.0) pg MCHC 30.2 L (32.0-36.0) g/dL RDW Std Deviation 55.0 H (36.4-46.3) fL RDW Coeff of Freddie 14.7 H (11.5-14.5) % Plt Count 205 (130-400) K/uL MPV 11.3 (9.4-12.4) fL Immature Gran % (Auto) 0.7 % Neut % (Auto) 79.8 % Lymph % (Auto) 9.4 % Martin % (Auto) 7.6 % Eos % (Auto) 1.7 % Baso % (Auto) 0.8 % Reticulocyte % (Auto) 10.33 H (0.50-2.00) % Neut # (Auto) 5.74 (1.40-6.50) K/uL Lymph # (Auto) 0.68 L (1.20-3.40) K/uL Martin # (Auto) 0.55 (0.11-0.59) K/uL Eos # (Auto) 0.12 (0.00-0.50) K/uL Baso # (Auto) 0.06 (0.00-0.20) K/uL Reticulocyte # 0.230 H (0.020-0.100) 10^6/uL Immature Gran # (Auto) 0.05 (0.01-0.20) K/uL Polychromasia 1+ Anisocytosis Present Tear Drop Cells Occasional PT 10.9 (9.0-12.0) Seconds INR 1.0 (0.9-1.1) POC Sodium 138 (135-144) mmol/L Sodium 137 (136-145) mmol/L POC Potassium 4.1 (3.3-5.0) mmol/L Potassium 4.0 (3.5-5.1) mmol/L POC Chloride 105 (101-112) mmol/L Chloride 106 (98-107) mmol/L Carbon Dioxide 21 (21-32) mmol/L POC Total CO2 19 L (24-31) mmol/L Anion Gap 10 (3-11) POC Anion Gap 19.0 (16-25) mmol/L POC BUN 18 (7-18) mg/dl BUN 20 (6-23) mg/dl Creatinine 0.78 (0.6-1.4) mg/dl POC Creatinine 0.8 (0.6-1.3) mg/dl Est Cr Clr Drug Dosing 105.0 ml/min eGFR 95.94 BUN/Creatinine Ratio 25.6 H (10-20) Glucose 224 H (70-99(Fasting)) mg/dl POC Glucose (other) 219 H (70-99) mg/dl Calcium 9.2 (8.6-10.3) mg/dl POC Ioniz Calcium Juan Antonio 1.22 (1.12-1.32) mmol/l Magnesium 1.8 (1.7-2.4) mg/dl Iron 115 (35-175) mcg/dl Unsaturated IBC 292 (155-355) mcg/dl Transferrin 325 (200-360) mg/dl Ferritin 13.3 (8-388) ng/ml Total Bilirubin 0.7 (0.2-1.0) mg/dl AST 16 (13-39) U/L ALT 12 (7-52) U/L Alkaline Phosphatase 52 (34-104) U/L Total Protein 6.2 (6.0-8.3) gm/dl Albumin 4.1 (3.4-5.0) gm/dl Globulin 2.1 L (2.5-4.0) gm/dl Albumin/Globulin Ratio 2.0 (0.9-2) Vitamin B12 409 (180-914) pg/ml Folate > 22.30 (>5.38) ng/ml TSH 2.956 (0.300-4.500) uIu/ml Blood Type AB Positive Antibody Screen NEGATIVE Crossmatch See Detail Administered Medications Insulin Aspart (Insulin Aspart Per Unit Charge) 0 units SC ACHS DANYEL Stop: 05/17/24 16:29 Last Admin: 04/17/24 18:04 Dose: 5 units Documented By: MANDY Co-signed By: [facility] [place] Discontinued Medications Furosemide (Furosemide Inj 20 Mg/2 Ml Vial) 20 mg IV ONE ONE Stop: 04/17/24 12:27 Last Admin: 04/17/24 12:38 Dose: 20 mg Documented By: RADHA Furosemide (Furosemide Inj 20 Mg/2 Ml Vial) 20 mg IV ONE ONE Stop: 04/17/24 15:33 Last Admin: 04/17/24 17:00 Dose: 20 mg Documented By: MANDY Pantoprazole Sodium (Protonix) 40 mg in 10 mls @ 5 mls/min IV NOW ONE Stop: 04/17/24 11:44 Last Admin: 04/17/24 12:03 Dose: 5 mls/min Documented By: RADHA Potassium Chloride (Potassium Chloride Crtab 20 Meq Tabcr) 40 meq PO ONE ONE Stop: 04/17/24 15:33 Last Admin: 04/17/24 18:00 Dose: 40 meq Documented By: MANDY Imaging Data Radiologist's Impression: Chest X-Ray 04/17/24 10:06 XR chest 1V portable HISTORY: 68 years-old Male weakness COMPARISON: 04/06/2024 TECHNIQUE: AP view of the chest FINDINGS: Cardiac silhouette is enlarged. Chronic interstitial coarsening. No pneumothorax. Pulmonary vascular congestion with unchanged blunting of the costophrenic angles. No large pleural effusion. No lobar airspace consolidation. Surgical anchor of the right humeral head. The bones appear grossly intact. IMPRESSION: 1. Cardiomegaly with pulmonary vascular congestion and mild chronic interstitial coarsening. 2. No airspace consolidation typical for pneumonia. ACT 112: Negative or not required by law. The above report was generated using voice recognition software. It may contain grammatical, syntax or spelling errors. Electronically signed by: Brian Grimes M.D. 04/17/2024 10:27 AM Discharge Plan Visit Data Chief Complaint: Abnormal Labs/Diagnostic Testing Stated Complaint: ABN LABS/BLOOD WORK, NEEDS TRANSFUSION ED Provider: Lloyd Morales ED Midlevel Provider: Roxie Kohli Discharge Problem: Symptomatic anemia, Dizziness, Generalized weakness, Aortic stenosis Patient Disposition: Admitted As Inpatient Discharge Instructions Interventions: ED Discharge Assessment Last Done: 04/17/24 14:47 Discharge Problem: Aortic stenosis Qualifiers: Cardiac valve disease etiology: etiology unspecified Qualified Code(s): I35.0 - Nonrheumatic aortic (valve) stenosis
[2024-04-17] MEDS ORDERED: SODIUM CHLORIDE 0.9% 100 ML IV PRN (10:09)
[2024-04-17] MEDS ORDERED: SODIUM CHLORIDE 0.9% 50 ML IV PRN (10:09)
--- NOTE | 2024-04-17 10:28 | XRay Report ---
XR chest 1V portable HISTORY: 68 years-old Male weakness COMPARISON: 04/06/2024 TECHNIQUE: AP view of the chest FINDINGS: Cardiac silhouette is enlarged. Chronic interstitial coarsening. No pneumothorax. Pulmonary vascular congestion with unchanged blunting of the costophrenic angles. No large pleural effusion. No lobar ai rspace consolidation. Surgical anchor of the right humeral head. The bones appear grossly intact. IMPRESSION: 1. Cardiomegaly with pulmonary vascular congestion and mild chronic interstitial coarsening. 2. No airspace consolidation typical for pneumonia. ACT 112: Negative or not required by law. The above report was generated using voice recognition software. It may contain grammatical, syntax o r spelling errors. Electronically signed by: Brian Grimes M.D. 04/17/2024 10:27 AM
[2024-04-17 10:40] LABS: Basophils # (auto) 0.06 K/uL (0.00-0.20); Basophils % (auto) 0.8 %; Eosinophils # (auto) 0.12 K/uL (0.00-0.50); Eosinophils % (auto) 1.7 %; Hematocrit (blood only) 23.5 % (42.0-52.0); Hemoglobin 7.1 g/dl (14.0-18.0); Immature Granulocytes # (auto) 0.05 K/uL (0.01-0.20); Immature Granulocytes % (auto) 0.7 %; Lymphocytes # (auto) 0.68 K/uL (1.20-3.40); Lymphocytes % (auto) 9.4 %; Mean Corpuscular Hemoglobin 31.4 pg (25.0-34.0); Mean Corpuscular Hgb Conc 30.2 g/dL (32.0-36.0); Mean Platelet Volume 11.3 fL (9.4-12.4); Monocytes # (auto) 0.55 K/uL (0.11-0.59); Monocytes % (auto) 7.6 %; Neutrophils # (auto) 5.74 K/uL (1.40-6.50); Neutrophils % (auto) 79.8 %; Platelet Count 205 K/uL (130-400); RDW Coefficient of Variation 14.7 % (11.5-14.5); Red Blood Count 2.26 M/uL (4.70-6.10); Reticulocyte % 10.33 % (0.50-2.00)
[2024-04-17 11:00] LABS: Albumin Level 4.1 gm/dl (3.4-5.0); BUN Creatinine Ratio 25.6 (10-20); Bilirubin,Total 0.7 mg/dl (0.2-1.0); Calcium 9.2 mg/dl (8.6-10.3); Globulin 2.1 gm/dl (2.5-4.0); Magnesium 1.8 mg/dl (1.7-2.4); Prothrombin Time 10.9 Seconds (9.0-12.0); Total Protein 6.2 gm/dl (6.0-8.3)
[2024-04-17 11:04] LABS: Anisocytosis Present; Polychromasia 1+; Tear Drop Cells Occasional
[2024-04-17 11:14] LABS: Thyroid Stimulating Hormone 2.956 uIu/ml (0.300-4.500)
[2024-04-17 11:19] LABS: Ferritin 13.3 ng/ml (8-388)
[2024-04-17 11:21] LABS: Folate (Folic Acid),Ser orPlas > 22.30 ng/ml (>5.38)
[2024-04-17 11:22] LABS: Vitamin B12 409 pg/ml (180-914)
[2024-04-17] MEDS: PANTOprazole 40 MG/10 ML SYR IV ONE (12:03)
--- NOTE | 2024-04-17 12:23 | History & Physical Report ---
<Statement entered by Keo Martinez, DO - 04/17/24 13:44> I have seen and examined the patient and have discussed the case with the provider above. I have reviewed the advanced practitioner's documentation, and I agree with, and take responsibility for that plan of care. Patient seen and examined while still in the ED. Nontoxic appearance. No acute distress. Physical exam: Lungs: Decreased breath sounds, no wheezes, no significant rales CV: S1-S2, systolic blowing murmur Extremities: 1+ pretibial edema Reviewed diagnostics Suspect patient's symptoms are multifactorial. I suspect patient's aortic stenosis may be the most significant contributing diagnosis to his shortness of breath and fatigue. His anemia is slightly worse but not significantly worse today as expect his symptoms to be significantly different than when he left the hospital. May have some evidence of volume overload most likely due to his valvular failure. I suspect the patient's symptoms were not completely resolved until he has his aortic valve repaired. Reviewed plan of care with MARC as outlined below Date of Service April 17, 2024 Assessment & Plan (1) Symptomatic anemia: (2) Symptomatic severe aortic stenosis with normal ejection fraction: (3) Acute on chronic anemia: (4) Diabetes mellitus, type II: (5) HTN (hypertension): (6) REMBERTO on CPAP: (7) Obesity: Plan Rafael Cantu is a 68y/o M with PMHx significant for DM type II, dyslipidemia, REMBERTO on CPAP, HTN, aortic valve stenosis, morbid obesity, BPH with obstruction/lower urinary tract symptoms, benign paroxysmal vertigo, bilateral primary open-angle glaucoma, iron deficiency anemia and depression who presented to the ED via referral from his PCP due to abnormal labs. Recent admission 04/06 to 04/09. Received 1 iron transfusion during the hospitalization. Underwent EGD which was consistent with Larsen's esophagus and duodenitis, prescribed pantoprazole 40 mg twice daily. Up until yesterday he had only been taking it once daily. Last colonoscopy was June 2023 which was otherwise unremarkable except for some diverticulosis and internal hemorrhoids. He reports no active bleeding, chronic black stool from iron supplement. Outpatient hemoglobin 7.1 at hospital follow-up visit and was referred back to ED. He is currently receiving 1 unit of PRBC in ED. Acute on chronic anemia history of iron deficiency status post supplementation IV and orally symptomatic anemia admit to medical telemetry continue transfusion of 1 unit PRBC, give Lasix 20 mg IV x 1 now, will consider additional diuresis posttransfusion suspect patient's symptoms are multifactorial in setting of acute on chronic anemia as well as symptomatic aortic stenosis he is already established with GI, do not feel GI will offer any further intervention during last hospitalization there was question of Heyde syndrome anemia panel unremarkable Pt on [id number] daily, will hold for now as he does not have any hx of known CAD with angioplasty or hx of TIA/CVA Severe aortic stenosis established with cardiology Resting echo last admission demonstrated severe calcific aortic valve stenosis with preserved LV systolic function outpt work up in progress per last cardiology note during last hospitalization "Patient will require complete dental evaluation, bilateral carotid duplex (? Bilateral carotid bruits versus transmitted systolic murmur), repeat diagnostic cardiac catheterization, and referral to the [facility] as discussed." T2DM: chronic, stable, hold metformin, glimperide and lantus/novolog while inpt, most recent a1c 4.4, will not be accurate this admission due to transfusion HTN: chronic, stable, hold losartan for now until reassessed in a.m. as Bp on softer side today HLD: chronic, stable continue statin Morbid obesity: chronic, BMI 36.2, continue diet/lifestyle modifcations REMBERTO on CPAP DVT ppx: SCDS FULL CODE PCP: Declan Dejesus Dispo: admit to med tele Pt was seen and examined in collaboration with Dr. Martinez, please see addendum I spent a total of 65 minutes reviewing notes, outpatient records, labs, medication, coordinating, documenting and providing care for this patient excluding time spent in the performance of separately billed services. History of Present Illness Chief Complaint: Referral by PCP due to abnormal labs Primary Care Provider: Declan Dejesus MD Rafael Cantu is a 68y/o M with PMHx significant for DM type II, dyslipidemia, REMBERTO on CPAP, HTN, aortic valve stenosis, morbid obesity, BPH with obstruction/lower urinary tract symptoms, benign paroxysmal vertigo, bilateral primary open-angle glaucoma, iron deficiency anemia and depression who presented to the ED via referral from his PCP due to abnormal labs. of significance patient was recently hospitalized 04/06 to 04/09 secondary to acute on chronic anemia. He initially presented to ED secondary to referral from PCP due to worsening fatigue and hemoglobin. On admission his hemoglobin was 8.8. At baseline he is approximately 11-13. His Hemoccult stool was positive in ED. CT abdomen pelvis was negative for any acute abnormality or findings of active GI bleeding. Of significance his last colonoscopy was 06/29/2023 which revealed multiple small and large mouth diverticula in the sigmoid colon, internal hemorrhoids otherwise normal-appearing colon. During last admission he did undergo EGD on 04/09 which showed an irregular GE junction which was biopsied and consistent with Larsen's esophagus. Also noted was erosions in the antrum and the body of the stomach and duodenitis in the bulb. He was prescribed Protonix 40 mg twice daily at discharge. Subsequently patient was only taking Protonix once daily until yesterday when PCP educated him that it was prescribed twice daily. He does have chronic black school secondary to taking iron supplements but otherwise denies any overt bleeding. He reports a significant fatigue, lack of energy, dyspnea on exertion and chest tightness when lying flat. He states that the symptoms were present during previous admission and have remained constant/stable. He does report some lightheadedness and dizziness when walking through the grocery store but denies any syncope. He denies any fever, chills, sweats, current chest pain or shortness of breath, nausea, vomiting, abdominal pain, change in his bowel or urinary habits. Allergies Allergy/AdvReac Type Severity Reaction Status Date / Time nickel Allergy Unknown RASH Verified 06/29/23 08:10 tetanus toxoid, adsorbed Allergy Unknown ITCHING Verified 06/29/23 08:10 empagliflozin AdvReac Unknown URINARY Verified 06/29/23 08:10 [From Jardiance] TRACT INFECTION lisinopril AdvReac Unknown Cough Verified 06/29/23 08:10 Home Medications Medication Instructions Recorded Confirmed Type dutasteride 0.5 mg capsule 0.5 mg PO QAM 08/11/18 04/17/24 History ferrous sulfate 325 mg (65 mg 325 mg PO BID 08/11/18 04/17/24 History iron) tablet (iron) losartan 25 mg tablet 50 mg PO QAM 08/11/18 04/17/24 History metformin 1,000 mg tablet 1,000 mg PO BID 08/11/18 04/17/24 History multivitamin 1 tab PO QAM 08/11/18 04/17/24 History rosuvastatin 40 mg tablet 40 mg PO HS 08/11/18 04/17/24 History glimepiride 2 mg tablet 2 mg PO QAM 08/22/20 04/17/24 History tamsulosin 0.4 mg capsule 0.4 mg PO HS 10/01/20 04/17/24 History latanoprost 0.005 % eye drops 1 drp OPB PM 11/02/23 04/17/24 History timolol maleate 0.25 % eye drops 2 drp OPB DAILY 11/02/23 04/17/24 History Tylenol Ex Str Rapid Release 1,000 mg PO DIRECTED PRN Pain 04/06/24 04/17/24 History aspirin 81 mg tablet,delayed 81 mg PO QAM 04/06/24 04/17/24 History release pantoprazole 40 mg tablet,delayed 40 mg PO BID #60 tabs 04/09/24 04/17/24 Rx release Past Med/Surg History Problem List Symptomatic severe aortic stenosis with normal ejection fraction Symptomatic anemia (Acute) Acute GI bleeding (Acute) Occult blood in stools Acute on chronic anemia Osteoarthritis of right knee Anemia (Acute) Medical History Aortic stenosis, severe BPH (benign prostatic hyperplasia) REMBERTO on CPAP Obesity Dyslipidemia HTN (hypertension) Diabetes mellitus, type II History of colon polyps BENIGN Scoliosis Osteoarthritis BPH (benign prostatic hyperplasia) GERD (gastroesophageal reflux disease) Not an issue recently Diabetes mellitus, type 2 Anemia Glaucoma RESOLVED S/P SURGICAL INTERVENTION Hyperlipidemia Sleep apnea CPAP, COMPLIANT. Surgical History History of tonsillectomy Hx of repair of rotator cuff "bilateral" History of total right knee replacement (TKR) History of cardiac cath ABNORMAL STRESS TEST IN 2017 - NO STENTS. 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) History of repair of rotator cuff RT/LEFT History of esophagogastroduodenoscopy (EGD) History of colonoscopy History of tooth extraction History of tonsillectomy History of adenoidectomy History of myringotomy Family History Grandmother (Maternal) Family history of diabetes mellitus Mother Family history of esophageal cancer Sister Family history of diabetes mellitus Social History Smoking Status: Never smoker Tobacco Type: Cigarettes Second Hand Exposure: No; Do You Dip or Chew Tobacco: No; Hx Alcohol Use: Yes Alcohol type: hard liquor Hx Substance Use: No Preferred Language: Albanian Communication Ability: Effective Fisher Required: No Beliefs That Will Affect Care: None marital status: Current Living Situation: Alone Current Living Situation Comment: currently in rehab facility Feels Safe at Home: Yes Assistive Devices: CPAP Review of Systems Review of Systems: All systems reviewed & are unremarkable except as noted in HPI & below Physical Exam Physical Exam: Constitutional: WD/WN, vitals as above, NAD, sitting up in bed, pleasant, conversing easily Head: Normocephalic, Atraumatic Eyes: PERRL, conjunctivae normal, anicteric sclerae ENMT: external ear and nose normal, oropharynx normal Neck: trachea midline, no thyromegaly normal visual inspection Respiratory: normal respiratory effort, lungs clear to auscultation, no wheeze, rales, rhonchi. Normal insp/exp effort, no accessory muscle use Cardiovascular: RRR, 2/6 blowing MIESHA on precordium, no edema Vessels: no JVD or carotid bruit Chest: normal inspection of chest Abdomen: normal bowel sounds,obese abd, soft, nontender, no hepatosplenomegaly Musculoskeletal: no cyanosis or clubbing, extremities motor strength 5/5 Skin: no rashes, warm and dry normal turgor Neurologic: PERRL, EOMI, accommodation nl, no face palsy, no dysarthria CN's II-XI intact bilaterally and moves all extremities Psychiatric: A+Ox3, flat affect Lymphatic: no cervical or axillary lymphadenopathy : deferred Results & Data Results & Data Vital Signs (Past 12 Hours) Vital Signs Temp Pulse Resp BP Pulse Ox O2 Del Method 04/17/24 12:06 36.9 C 81 22 128/75 96 04/17/24 11:51 36.9 C 76 18 128/73 97 04/17/24 11:35 77 22 108/56 L 96 04/17/24 11:33 78 17 97 Room Air 04/17/24 11:32 108/56 L 04/17/24 11:20 120/70 04/17/24 11:20 36.9 C 79 18 120/70 95 04/17/24 11:09 79 18 96 Room Air 04/17/24 11:06 77 17 92 Room Air 04/17/24 11:00 121/70 04/17/24 10:57 80 19 91 Room Air 04/17/24 10:30 115/58 L 04/17/24 10:27 83 19 95 Room Air 04/17/24 10:00 82 21 94 Room Air 04/17/24 10:00 104/61 04/17/24 09:45 82 17 95 Room Air 04/17/24 09:41 87 04/17/24 09:16 36.7 C 86 20 110/68 97 Room Air Laboratory Results I have independently reviewed and interpreted patient's admitting labs including CBC, CMP, PT/INR, anemia panel, mag and troponin. Diagnostic Findings Chest X-Ray 04/17/24 10:06 XR chest 1V portable HISTORY: 68 years-old Male weakness COMPARISON: 04/06/2024 TECHNIQUE: AP view of the chest FINDINGS: Cardiac silhouette is enlarged. Chronic interstitial coarsening. No pn eumothorax. Pulmonary vascular congestion with unchanged blunting of the costophrenic angles. No large pleural effusion. No lobar airspace consolidation. Surgical anchor of the right humeral head. The bones appear grossly intact. IMPRESSION: 1. Cardiomegaly with pulmonary vascular congestion and mild chronic interstitial coarsening. 2. No airspace consolidation typical for pneumonia. ACT 112: Negative or not required by law. The above report was generated using voice recognition software. It may contain grammatical, syntax or spelling errors. Electronically signed by: Brian Grimes M.D. 04/17/2024 10:27 AM Medications Administered Medication List Discontinued Medications Pantoprazole Sodium (Protonix) 40 mg in 10 mls @ 5 mls/min IV NOW ONE Stop: 04/17/24 11:44 Last Admin: 04/17/24 12:03 Dose: 5 mls/min Documented By: RADHA Code Status & VTE Plan Code Status FULL CODE VTE Prophylaxis Plan VTE Prophylaxis will be ordered: Yes
[2024-04-17] MEDS: FUROSEMIDE INJ 20 MG/2 ML VIAL IV ONE ×2 (12:38→17:00)
[2024-04-17 14:00] LABS: Appearance Urine Clear (Clear); Bacteria Urine Automated None Seen (None Seen); Bilirubin Urine Negative (Negative); Blood Urine Negative (Negative); Cast Urine Automated 0-2 /lpf (0-2); Color Urine Yellow; Epithelial Cell Urine Auto 0-2 /hpf (0-2); Glucose Urine UA Negative (Negative); Ketones Urine Negative (Negative); Leukocyte Esterase Urine Negative (Negative); Nitrite Urine Negative (Negative); Protein Urine 1+ (Negative); RBC Urine Automated 0-2 /hpf (0-2); Specific Gravity Urine 1.015 (1.000-1.030); Urobilinogen Urine Negative (Negative); WBC Urine Automated 0-5 /hpf (0-5)
--- NOTE | 2024-04-17 14:19 | Electrocardiogram Report ---
Test Reason : Blood Pressure : */* mmHG Vent. Rate : 88 BPM Atrial Rate : 88 BPM P-R Int : 190 ms QRS Dur : 94 ms QT Int : 348 ms P-R-T Axes : 24 -26 51 degrees QTcB Int : 421 ms Normal sinus rhythm with sinus arrhythmia Normal ECG When compared with ECG of 06-Apr-2024 11:00, No significant change was found Confirmed by Milind Nichols ([id number]) on 04/17/2024 2:18:53 PM Referred By: REFERRED SELF Confirmed By: Milind Nichols
[2024-04-17] MEDS ORDERED: GLUCAGON FOR INJ 1 MG VIAL SQ PRN (15:32)
[2024-04-17] MEDS ORDERED: DEXTROSE 50% 50 ML SYRINGE IV PRN (15:32)
[2024-04-17] MEDS ORDERED: GLUCOSE 10 TAB/TUBE PO PRN (15:32)
[2024-04-17] MEDS ORDERED: ACETAMINOPHEN 325 MG TAB PO PRN (15:32)
[2024-04-17] MEDS ORDERED: ONDANSETRON INJ 2 MG/ML 2 ML VIAL IV PRN (15:32)
[2024-04-17] MEDS ORDERED: POLYETHYLENE (MIRALAX) 17 GM PACK PO PRN (15:32)
[2024-04-17] MEDS ORDERED: GLUCOSE 40% GEL 15 GM TUBE PO PRN (15:32)
[2024-04-17] MEDS ORDERED: CARBOHYDRATES FOR HYPOGLYCEMIA PO PRN (15:32)
[2024-04-17] MEDS: POTASSIUM CHLORIDE CRTAB 20 MEQ TABCR PO ONE (18:00)
[2024-04-17] MEDS: INSULIN ASPART PER UNIT CHARGE SC SCH (18:04)
[2024-04-17] MEDS: LATANOPROST 0.005% OP SOLN 2.5 ML BTL OPB SCH (19:59)
[2024-04-17] MEDS: TAMSULOSIN HCL 0.4 MG CAP PO SCH (20:00)
[2024-04-17] MEDS: FERROUS SULFATE 325 MG TAB PO SCH (20:00)
[2024-04-17] MEDS: PANTOprazole 40 MG/10 ML SYR IV SCH (20:00)
[2024-04-17] MEDS: ROSUVASTATIN CALCIUM 20 MG TAB PO SCH (20:00)
[2024-04-17] MEDS: LANTUS PER UNIT CHARGE SQ SCH (20:14)
[2024-04-18 07:48] LABS: Hematocrit (blood only) 25.8 % (42.0-52.0); Mean Corpuscular Hemoglobin 30.7 pg (25.0-34.0); Mean Corpuscular Volume 98.9 fL (80.0-100.0); Mean Platelet Volume 11.1 fL (9.4-12.4); Platelet Count 199 K/uL (130-400); RDW Coefficient of Variation 16.9 % (11.5-14.5); Red Blood Count 2.61 M/uL (4.70-6.10); White Blood Count 6.96 K/ul (4.8-10.8)
[2024-04-18 07:54] LABS: Basophils # (auto) 0.07 K/uL (0.00-0.20); Eosinophils # (auto) 0.16 K/uL (0.00-0.50); Eosinophils % (auto) 2.3 %; Immature Granulocytes # (auto) 0.02 K/uL (0.01-0.20); Immature Granulocytes % (auto) 0.3 %; Lymphocytes # (auto) 0.62 K/uL (1.20-3.40); Lymphocytes % (auto) 8.9 %; Monocytes # (auto) 0.63 K/uL (0.11-0.59); Monocytes % (auto) 9.1 %; Neutrophils # (auto) 5.46 K/uL (1.40-6.50); Neutrophils % (auto) 78.4 %; Polychromasia 1+
[2024-04-18 07:56] LABS: Albumin Globulin Ratio 1.6 (0.9-2); Albumin Level 3.8 gm/dl (3.4-5.0); BUN Creatinine Ratio 22.7 (10-20); Bilirubin,Total 1.2 mg/dl (0.2-1.0); Calcium 9.2 mg/dl (8.6-10.3); Creatinine Clr Calc Pharmacy 107.7 ml/min; Globulin 2.4 gm/dl (2.5-4.0); Magnesium 1.9 mg/dl (1.7-2.4); Potassium 4.1 mmol/L (3.5-5.1); Total Protein 6.2 gm/dl (6.0-8.3)
[2024-04-18] MEDS: TIMOLOL MALEATE 0.25% OP SOLN 5 ML BTL OPB SCH (09:26)
[2024-04-18] MEDS: FINASTERIDE 5 MG TAB PO SCH (09:27)
[2024-04-18] MEDS: MULTIVITAMIN TAB PO SCH (09:27)
[2024-04-18] MEDS ORDERED: SODIUM CHLORIDE 0.9% 100 ML IV PRN (09:43)
[2024-04-18] MEDS ORDERED: SODIUM CHLORIDE 0.9% 50 ML IV PRN (09:43)
--- NOTE | 2024-04-18 09:54 | Discharge Summary ---
Discharge Summary Date of Service April 18, 2024 Principal Dx & Hospital Course #1 = Principal Diagnosis (1) Symptomatic anemia: (2) Symptomatic severe aortic stenosis with normal ejection fraction: (3) Acute on chronic anemia: (4) Diabetes mellitus, type II: (5) HTN (hypertension): (6) REMBERTO on CPAP: (7) Obesity: Notes For Next Care Provider Medication Changes From Visit None Admission HPI Per Admitting Provider Patient is a 68-year-old gentleman with history of diabetes mellitus type 2, dyslipidemia, REMBERTO, hypertension, significant aortic stenosis, severe obesity, BPH, macular degeneration, chronic iron deficiency anemia who presented to hospital because of weakness and tiredness. Patient was found to have hemo globin of 7.3 and was transfused with 1 unit of PRBC. Hemoglobin improved to 8. Patient was seen and examined today. We had a long conversation about the nature of his symptoms. My personal intake is that this is multifactorial secondary to severe aortic stenosis for which patient has already been transferred to valve clinic for consideration of TAVR, the second important thing is that this gentleman has chronic iron deficiency because of chronic GI blood loss coming from significant GERD/Larsen's esophagus as well as evidence of multiple diverticula and polyps found on colonoscopy earlier this year. His fecal occult blood in March was positive as well. I am going to give him another unit of blood to thank him up and along with 1 more dose of Lasix, in the afternoon he can be discharged home, I explained to him that the nature of this is recurring and ongoing, he is already on PPI twice daily, I am questioning whether his aspirin can be discontinued but that is up to his card iologist. I recommended him to have at least CBC every week to be able to catch drop in H&H faster and schedule him for outpatient transfusion. Otherwise patient is stable and can be discharged home. Discharge Exam VITALS: Reviewed. WEIGHT/BMI reviewed. GEN: Healthy appearing, well-developed, NAD. PSYCH: Good Judgment. AOx3. Normal memory, mood, and affect. NECK: Supple, with no masses. CV: RRR, no m/r/g. LUNGS: CTAB, no w/r/c. ABD: Soft, NT/ND, NBS, no masses or organomegaly. : N/A SKIN: Warm, well perfused. No skin rashes or abnormal lesions. MSK: No deformities, Normal gait. EXT: No clubbing, cyanosis, or edema. NEURO: Ambulating with no limitations. Normal muscle strength and tone. No focal deficits. Updated Medication List Medication Instructions Recorded Confirmed Type dutasteride 0.5 mg capsule 0.5 mg PO QAM 08/11/18 04/17/24 History ferrous sulfate 325 mg (65 mg 325 mg PO BID 08/11/18 04/17/24 History iron) tablet (iron) losartan 25 mg tablet 50 mg PO QAM 08/11/18 04/17/24 History metformin 1,000 mg tablet 1,000 mg PO BID 08/11/18 04/17/24 History multivitamin 1 tab PO QAM 08/11/18 04/17/24 History rosuvastatin 40 mg tablet 40 mg PO HS 08/11/18 04/17/24 History glimepiride 2 mg tablet 2 mg PO QAM 08/22/20 04/17/24 History tamsulosin 0.4 mg capsule 0.4 mg PO HS 10/01/20 04/17/24 History latanoprost 0.005 % eye drops 1 drp OPB PM 11/02/23 04/17/24 History timolol maleate 0.25 % eye drops 2 drp OPB DAILY 11/02/23 04/17/24 History Tylenol Ex Str Rapid Release 1,000 mg PO DIRECTED PRN Pain 04/06/24 04/17/24 History aspirin 81 mg tablet,delayed 81 mg PO QAM 04/06/24 04/17/24 History release pantoprazole 40 mg tablet,delayed 40 mg PO BID #60 tabs 04/09/24 04/17/24 Rx release Additional Medication Comments Current Inpatient Medications Acetaminophen (Acetaminophen 325 Mg Tab) 650 mg PO Q4H PRN PRN Reason: Pain or Fever Stop: 05/17/24 15:31 Dextrose (Dextrose 50% 50 Ml Syringe) 25 - 50 ml IV UD PRN; Protocol PRN Reason: Hypoglycemia Protocol Stop: 05/17/24 15:31 Ferrous Sulfate (Ferrous Sulfate 325 Mg Tab) 325 mg PO BID [facility] Stop: 05/17/24 20:59 Last Admin: 04/18/24 09:27 Dose: 325 mg Finasteride (Finasteride 5 Mg Tab) 5 mg PO QAM [facility] Stop: 05/18/24 08:59 Last Admin: 04/18/24 09:27 Dose: 5 mg Glucagon (Glucagon For Inj 1 Mg Vial) 1 mg SQ UD PRN; Protocol PRN Reason: Hypoglycemia Protocol Stop: 05/17/24 15:31 Glucose (Glucose 40% Gel 15 Gm Tube) 15 - 30 gm PO UD PRN; Protocol PRN Reason: Hypoglycemia Protocol Stop: 05/17/24 15:31 Glucose (Glucose 10 Tab/Tube) 4 - 8 tab PO UD PRN; Protocol PRN Reason: Hypoglycemia Protocol Stop: 05/17/24 15:31 Pantoprazole Sodium (Protonix) 40 mg in 10 mls @ 5 mls/min IV BID [facility] Stop: 05/17/24 20:59 Last Admin: 04/18/24 09:27 Dose: 5 mls/min Sodium Chloride (Nss) 100 mls @ 15 mls/hr IV .Q6H40M PRN PRN Reason: For Transfusion Duration Stop: 04/18/24 17:44 Sodium Chloride (Nss) 50 mls @ 15 mls/hr IV .Q3H20M PRN PRN Reason: For Transfusion Duration Stop: 04/18/24 17:44 Insulin Aspart (Insulin Aspart Per Unit Charge) 0 units SC ACHS [facility] Stop: 05/17/24 16:29 Last Admin: 04/18/24 09:26 Dose: 6 units Insulin Glargine (Lantus Per Unit Charge) 0 - 5 units SQ BID [facility] Stop: 05/17/24 20:59 Last Admin: 04/18/24 09:25 Dose: 5 units Latanoprost (Latanoprost 0.005% Op Soln 2.5 Ml Btl) 1 drops OPB PM [facility] Stop: 05/17/24 20:59 Last Admin: 04/17/24 19:59 Dose: 1 drops Miscellaneous (Carbohydrates For Hypoglycemia ) 15 - 30 gm PO UD PRN PRN Reason: Hypoglycemia Protocol Stop: 05/17/24 15:31 Multivitamins (Multivitamin Tab) 1 tab PO QAM [facility] Stop: 05/18/24 08:59 Last Admin: 04/18/24 09:27 Dose: 1 tab Ondansetron HCl (Ondansetron Inj 2 Mg/Ml 2 Ml Vial) 4 mg IV Q6H PRN PRN Reason: Nausea Stop: 05/17/24 15:31 Polyethylene Glycol (Polyethylene (Miralax) 17 Gm Pack) 17 gm PO DAILY PRN PRN Reason: Constipation Stop: 05/17/24 15:31 Rosuvastatin Calcium (Rosuvastatin Calcium 20 Mg Tab) 40 mg PO HS [facility] Stop: 05/17/24 20:59 Last Admin: 04/17/24 20:00 Dose: 40 mg Tamsulosin HCl (Tamsulosin Hcl 0.4 Mg Cap) 0.4 mg PO HS [facility] Stop: 05/17/24 20:59 Last Admin: 04/17/24 20:00 Dose: 0.4 mg Timolol Maleate (Timolol Maleate 0.25% Op Soln 5 Ml Btl) 2 drops OPB DAILY [facility] Stop: 05/18/24 08:59 Last Admin: 04/18/24 09:26 Dose: 2 drops Hospital Stay Data Consultations 04/17/24 11:43 ED Decision to Admit Stat 04/17/24 15:50 Consult Cardiology Routine Diagnostic Imagining Performed Chest X-Ray 04/17/24 10:06 XR chest 1V portable HISTORY: 68 years-old Male weakness COMPARISON: 04/06/2024 TECHNIQUE: AP view of the chest FINDINGS: Cardiac silhouette is enlarged. Chronic interstitial coarsening. No pneumothorax. Pulmonary vascular congestion with unchanged blunting of the costophrenic angles. No large pleural effusion. No lobar airspace consolidation. Surgical anchor of the right humeral head. The bones appear grossly intact. IMPRESSION: 1. Cardiomegaly with pulmonary vascular congestion and mild chronic interstitial coarsening. 2. No airspace consolidation typical for pneumonia. ACT 112: Negative or not required by law. The above report was generated using voice recognition software. It may contain grammatical, syntax or spelling errors. Electronically signed by: Brian Grimes M.D. 04/17/2024 10:27 AM Pending Results Patient Have Any Pending Studies at Discharge: No Discharge Instructions Given to Patient (Per Discharging Provider) Patient to contact his PCP to have weekly CBC Total Time Total Time Spent Total Time Spent (In Minutes): More than 40 minutes
--- NOTE | 2024-04-18 10:05 | Cardiology Progress Note ---
Date of Service April 18, 2024 Assessment & Plan (1) Aortic stenosis: Plan 68 yo man presenting with GIB S/P Endoscopy - Pathology noted Continue PPI Ongoing need for transfusions Potential ongoing tarry stools Severe + Chest pain - nocturnal - consistent with angina Would maintain HgB >8 Given ongoing transfusion requirement, may need to transfuse above HgB of 8 to maintain a HgB of 8 Please administer lasix with each transfusion to maintain euvolemia - Patient appears mildly volume overloaded (JVP 15 cmH20) - Lasix 40 mg IV x 1 may be helpful at the time of transfusion Outpatient evaluation for Aortic Valve intervention set for 04/26/2024 Please call back with any additional questions 51 min spent addressing challenges, educating and advancing daily plan of care Paul Castillo Admission and Anticipated Discharge Date Admission Date: April 17, 2024 Subjective Events Overnight: * no telemetry events Subjective: * Chest discomfort at night * + Tarry stools persist Review of Systems Review of Systems: All systems reviewed & are unremarkable except as noted in HPI & below Physical Exam Physical Exam: Obese Joselo cheeks JVP 15 cmH20 S1S2 2-3/6 Systolic Murmur c/w - runs through second heart sound CTA B No C/C/E Warm and perfused Results & Data Vital Signs (Past 12 Hours) Vital Signs Temp Pulse Pulse Resp BP Pulse Ox O2 Del Method 04/18/24 08:22 36.4 C L 74 20 108/65 95 Room Air 04/18/24 07:30 Room Air 04/18/24 07:16 83 04/18/24 03:44 36.5 C 83 20 107/63 94 Room Air 04/18/24 00:22 36.5 C 83 20 114/68 93 Room Air Laboratory Results Cardiac Enzymes 04/17/24 04/18/24 Range/Units 09:31 06:40 AST 16 13 (13-39) U/L Coagulation 04/17/24 Range/Units 09:31 PT 10.9 (9.0-12.0) Seconds CBC 04/17/24 04/18/24 Range/Units 09:31 06:40 WBC 7.20 6.96 (4.8-10.8) K/ul RBC 2.26 L 2.61 L (4.70-6.10) M/uL Hgb 7.1 L 8.0 L (14.0-18.0) g/dl Hct 23.5 L 25.8 L (42.0-52.0) % Plt Count 205 199 (130-400) K/uL Neut # (Auto) 5.74 5.46 (1.40-6.50) K/uL Lymph # (Auto) 0.68 L 0.62 L (1.20-3.40) K/uL [place] # (Auto) 0.55 0.63 H (0.11-0.59) K/uL Eos # (Auto) 0.12 0.16 (0.00-0.50) K/uL Baso # (Auto) 0.06 0.07 (0.00-0.20) K/uL Comprehensive Metabolic Panel 04/17/24 04/18/24 Range/Units 09:31 06:40 Sodium 137 136 (136-145) mmol/L Potassium 4.0 4.1 (3.5-5.1) mmol/L Chloride 106 103 (98-107) mmol/L Carbon Dioxide 21 26 (21-32) mmol/L BUN 20 17 (6-23) mg/dl Creatinine 0.78 0.75 (0.6-1.4) mg/dl Glucose 224 H 194 H (70-99(Fasting)) mg/dl Calcium 9.2 9.2 (8.6-10.3) mg/dl AST 16 13 (13-39) U/L ALT 12 11 (7-52) U/L Alkaline Phosphatase 52 51 (34-104) U/L Total Protein 6.2 6.2 (6.0-8.3) gm/dl Albumin 4.1 3.8 (3.4-5.0) gm/dl Intake and Output 04/17/24 04/18/24 04/18/24 22:59 06:59 14:59 Intake Total 320 / 730 100 / 730 Output Total 400 / 1900 1500 / 1900 Balance -80 / -1170 -1400 / -1170 Intake: Oral 320 / 420 100 / 420 Output: Urine 400 / 1900 1500 / 1900 Other: Weight 105.2 kg Weight Measurement Method Standing Scale Diagnostic Findings ECHOcardiogram: 04-06-2024 LVEF 55-60% No WMA LA - mildly dilated Aortic Valve - severely calcified - HAL 1 cm2 Severe Aortic Stenosis Medications Administered Current Inpatient Medications Acetaminophen (Acetaminophen 325 Mg Tab) 650 mg PO Q4H PRN PRN Reason: Pain or Fever Stop: 05/17/24 15:31 Dextrose (Dextrose 50% 50 Ml Syringe) 25 - 50 ml IV UD PRN; Protocol PRN Reason: Hypoglycemia Protocol Stop: 05/17/24 15:31 Ferrous Sulfate (Ferrous Sulfate 325 Mg Tab) 325 mg PO BID DANYEL Stop: 05/17/24 20:59 Last Admin: 04/18/24 09:27 Dose: 325 mg Finasteride (Finasteride 5 Mg Tab) 5 mg PO QAM DANYEL Stop: 05/18/24 08:59 Last Admin: 04/18/24 09:27 Dose: 5 mg Glucagon (Glucagon For Inj 1 Mg Vial) 1 mg SQ UD PRN; Protocol PRN Reason: Hypoglycemia Protocol Stop: 05/17/24 15:31 Glucose (Glucose 40% Gel 15 Gm Tube) 15 - 30 gm PO UD PRN; Protocol PRN Reason: Hypoglycemia Protocol Stop: 05/17/24 15:31 Glucose (Glucose 10 Tab/Tube) 4 - 8 tab PO UD PRN; Protocol PRN Reason: Hypoglycemia Protocol Stop: 05/17/24 15:31 Pantoprazole Sodium (Protonix) 40 mg in 10 mls @ 5 mls/min IV BID [facility] Stop: 05/17/24 20:59 Last Admin: 04/18/24 09:27 Dose: 5 mls/min Sodium Chloride (Nss) 100 mls @ 15 mls/hr IV .Q6H40M PRN PRN Reason: For Transfusion Duration Stop: 04/18/24 17:44 Sodium Chloride (Nss) 50 mls @ 15 mls/hr IV .Q3H20M PRN PRN Reason: For Transfusion Duration Stop: 04/18/24 17:44 Insulin Aspart (Insulin Aspart Per Unit Charge) 0 units SC ACHS [facility] Stop: 05/17/24 16:29 Last Admin: 04/18/24 09:26 Dose: 6 units Insulin Glargine (Lantus Per Unit Charge) 0 - 5 units SQ BID [facility] Stop: 05/17/24 20:59 Last Admin: 04/18/24 09:25 Dose: 5 units Latanoprost (Latanoprost 0.005% Op Soln 2.5 Ml Btl) 1 drops OPB PM [facility] Stop: 05/17/24 20:59 Last Admin: 04/17/24 19:59 Dose: 1 drops Miscellaneous (Carbohydrates For Hypoglycemia ) 15 - 30 gm PO UD PRN PRN Reason: Hypoglycemia Protocol Stop: 05/17/24 15:31 Multivitamins (Multivitamin Tab) 1 tab PO QAM DANYEL Stop: 05/18/24 08:59 Last Admin: 04/18/24 09:27 Dose: 1 tab Ondansetron HCl (Ondansetron Inj 2 Mg/Ml 2 Ml Vial) 4 mg IV Q6H PRN PRN Reason: Nausea Stop: 05/17/24 15:31 Polyethylene Glycol (Polyethylene (Miralax) 17 Gm Pack) 17 gm PO DAILY PRN PRN Reason: Constipation Stop: 05/17/24 15:31 Rosuvastatin Calcium (Rosuvastatin Calcium 20 Mg Tab) 40 mg PO HS [facility] Stop: 05/17/24 20:59 Last Admin: 04/17/24 20:00 Dose: 40 mg Tamsulosin HCl (Tamsulosin Hcl 0.4 Mg Cap) 0.4 mg PO HS [facility] Stop: 05/17/24 20:59 Last Admin: 04/17/24 20:00 Dose: 0.4 mg Timolol Maleate (Timolol Maleate 0.25% Op Soln 5 Ml Btl) 2 drops OPB DAILY [facility] Stop: 05/18/24 08:59 Last Admin: 04/18/24 09:26 Dose: 2 drops (1) Aortic stenosis Cardiac valve disease etiology: etiology unspecified Qualified Code(s): I35.0 - Nonrheumatic aortic (valve) stenosis
[2024-04-18] MEDS: FUROSEMIDE 40 MG/4 ML VIAL IV ONE (10:31)
[2024-04-18 10:59] VITALS: RESP 18
--- OUTSIDE RECORDS SUMMARY | 2024-04-18 11:57 | External Medical Summary | Summary of Care ---
Author Name Unknown Organization [facility] Address [address] [place] [address] Phone [phone] Care Team Providers Care Residential Sales Manager Name Role Phone Declan Dejesus MD Primary Care Provider [phone] Reason for Visit * Reason Onset Date Comments Appointment 04/10/2024 Clarify need for Echocardiogram appointment Encounter Details Date Type Department Care Team (Latest Contact Info) Description 04/10/2024 Erco Machine Operator Telephone Care Coordination and Integration [address] [place] [address] Diana Cole, YAMILE [address] [place] [address] Appointment (Clarify need for Echocardiogr... Allergies Active Allergy Reactions Criticality Noted Date Comments Empagliflozin 10/06/2020 Fungal infection, urinary frequency Lisinopril Cough Nickel Rash 09/13/2011 Tetanus Toxoids Rash 09/13/2011 documented as of this encounter (statuses as of 04/16/2024) Medications MULTI VITAMIN MENS PO TABS one by mouth daily Active Aspirin 81 MG Oral Tablet Delayed [...] the evening. 180 Tablet 1 4 Active Acetaminophen 500 MG Oral Capsule Take 2 Capsules by mouth every 4 hours as needed for Pain, Mild or Fever >38C(100.5F). Active Pantoprazole Sodium 40 MG Oral Tablet Delayed Release (Protonix) Take 1 Tablet by mouth 2 times a day. Active Vitamin C 1000 MG Oral Tablet Take 1 Tablet by mouth 2 times a day. Active Zinc 50 MG Oral Tablet Take 1 Tablet by mouth in the morning. Active Vitamin D3 125 MCG (5000 UT) Oral Tablet Disintegrating Take 1 Tablet by mouth daily. Active documented as of this encounter (statuses as of 04/16/2024) Active Problems Problem Noted Date Diagnosed Date [...] as of this encounter (statuses as of 04/16/2024) Resolved Problems Problem Noted Date Diagnosed Date Resolved Date Primary open-angle glaucoma, right eye, moderate stage 10/16/2020 08/15/2023 Overview (08/15/2023): Noted on pl as OU moderate Glaucoma 08/27/2013 06/07/2022 Overview (06/07/2022): More specific dx on pl HTN, goal below 140/80 07/03/201210/29 Overview: Per HTN Protocol documented as of this encounter (statuses as of 04/16/2024) Immunizations Name Administration Dates Next Due COVID-19 mRNA, LNP-s, No Pre serve, 2-Dose Series (Moderna) 08/19/2020,07/22/2020 COVID-19, MRNA-LNP, PF, 50 M CG/0.5 mL, 12 YRS AND ABOVE, IM (MODERNA-Spikevax) 04/04/2023 COVID-19, mRNA, LNP-s, PF, B ooster, 100mcg/0.5mg (Moderna) 04/16/2021 Covid-19 Ad26, Single Dose (Sylvia/J&J) 08/19/2020,07/22/2020 Pneumococcal Conjugate Vacci ne, 20-valent ([id number]) 05/20/2023 Pneumococcal Polysaccharide PPV23 (Pneumovax) 03/11/2009,10/11/2008(Deferred: Patient [...] Answer Date Recorded PHQ Adult Total Score 2 04/10/2024 Hunger Vital Sign Answer Date Recorded Within the past 12 months, y ou worried that your food would run out before you got the money to buy more. Never true 04/10/20 24 Within the past 12 months, t he food you bought just didn't last and you didn't have money to get more. Never true 04/10/2024 Childcare Answer Date Recorded Do you feel overwhelmed with taking care of a child, family member or friend? No 04/10/2024 Does your family need help f inding childcare? (Household - for ages 0-17 years) Not on file 04/10/2024 Clothing Answer Date Recorded Have you been unable to get clothing when it was really needed? No 04/10/2024 Is your family able to get c lothes or diapers when needed? (Household - for ages 0-17 years) Not on file 04/10/2024 Personal Safety Answer Date Recorded Do you feel unsafe or have concerns for your saf ety? No 04/10/2024 Do you have concerns for you r family's safety? (Household - for ages 0-17 years) Not on file 04/10/2024 Utilities Answer Date Recorded Do you have trouble paying y our heating, water, or electric bill? No 04/10/2024 Is your family able to pay t he heat, water, or electric bill? (Household - for ages 0-17 years) Not on file 04/10/2024 Does your family have access to good internet? (Household - for ages 0-17 years) Not on file 04/10/2024 Employment Status Answer Date Recorded Are you unemployed or without regular income? No 04/10/2024 Does the household have a [employer] [place] source of income? (Household - for ages 0-17 years) Not on file 04/10/2024 Social Connections Answer Date Recorded How often do you feel lonely or isolated from those around you? Sometimes 04/10/2024 Financial Resource Strain Answer Date R ecorded Do you have any trouble payi ng for your medications, or do you think you might in the future? No 04/10/2024 Does your family have troubl e paying for medicine? (Household - for ages 0-17 years) Not on file 04/10/2024 Transportation Needs Answer Date Record ed READ ONLY Do you have troubl e getting a ride to medical visits or work? Sometimes True 04/10/2024 Does your family have a hard time getting a ride to doctors visits? (Household - for ages 0-17 years) Not on file 04/10/2024 Has lack of transportation k ept you from medical appointments, meetings, work, or from getting things needed for daily living? Check all that apply. No Do you (or your family) have trouble finding or paying for a ride (transportation)? (Household - for ages 0-17 years) Not on file 04/10/2024 Housing Stability Answer Date Recorded Do you currently live in a s helter or have no steady place to sleep at night? No 04/10/2024 READ ONLY Do you think you a re at risk of becoming homeless? No 04/10/2024 Does your family worry about paying for your home or becoming homeless? (Household - for ages 0-17 years) Not on file 1 06/10/2023 Are you homeless or worried that you might be in the future? No 04/10/2024 Are you (or your family) alayna eless or worried that you might be in the future? (Household - for ages 0-17 years) Not on file Food Insecurity Answer Date Recorded Do you need food for this week? No 04/10/2024 Are you able to get enough f ood for your family? (Household - for ages 0-17 years) Not on file 04/10/2024 Does your family need food t his week? (Household - for ages 0-17 years) Not on file 04/10/2024 Do you always have enough fo od for your family? (Household - for ages 0-17 years) Not on file 04/10/2024 Sex and Gender Information Value Date Recorded Sex Assigned at Male 06/23/2023 2:00 PM EST Legal Sex Male 6:25 AM EST Gender Identity Male 06/23/2023 2:00 PM EST Sexual Orientation Straight 06/23/2023 2: 00 PM EST documented as of this encounter Miscellaneous Notes * Telephone Encounter - Diana Cole RN - 04/16/2024 11:17 AM EST Noted. Spoke to patient, making him aware he does not need to having an echocardiogram done on 04/25/2024 given he recently had one done while admitted at [facility]. Patient verbalized understanding andexpressed appreciation for the follow up. Per review of [facility], the Echocardiogram appointment on 04/25/2024 has been canceled. Diana Cole RN, BSN Float [employer] Machine Operator [phone] * Telephone Encounter - Kareen Boyd CRNP - 04/11/2024 12:24 PM EST Please advise patient that NO he does not need that outpatient echo as he just had one done in the hospital. That echo had been ordered by his PCP prior to hospitalization. We will use the echo he had completed at [facility]. Cancel Echo appt. Keep Cardiology appt. Very important. Thank you. * Telephone Encounter - Diana Cole RN - 04/10/2024 2:51 PM EST Patient acknowledged he is scheduled to undergo an Echocardiogram on 04/25/2024, however he is questioning the need for this appointment and states he had an echocardiogram completed during his recent hospitalization at [facility] (04/06/2024 - 04/09/2024). Please clarify whether or not patient is to keep his Echo appointment scheduled for 04/25/2024. Thanks, Diana Cole RN, BSN [facility] Erco Machine Operator [phone] documented in this encounter Plan of Treatment Upcoming Encounters Date Type Department Care Team (Late st Contact Info) Description 04/23/2024 8:30 AM EST Imaging Vascular Lab, [facility] [address] [address] 04/26/2024 11:30 AM EST Office Visit Cardiology, [facility] [address] [address] Kareen Boyd CRNP [address] [address] 07/20/2024 10:20 AM EST Office Visit [facility] Zacarias Gallegos [address] [phone] Declan Dejesus MD [address] [address] 07/24/2024 10:00 AM EDT Nurse Only Ancillary Department, Ashleigh Kamara [address] [phone] Ashleigh, Nurse Annual Wellness [address] [place] [address] Scheduled Procedures Name Priority Associated Diagnoses Date/Ti me COLONOSCOPY FLEXIBLE PROXIMA L DIAGNOSTIC Recall Screening for colon cancer Health Maintenance Due Date Last Done Comments Sigmoidoscopy 1998 Lung Cancer Screening 2003 Fecal Occult Blood Test 01/14/2024 01/14/20, 01/13/2023, 01/15/2022, Additional history exists COVID-19 Vaccine ( season) 2024 04/04/2023, 04/16/2021, 08/19/2020, Additional history exists Influenza Vaccine (FLU shot) (#1) 2024 04/04/2023, 03/11/2022, 04/16/2021, Additional history exists Adult Wellness Visit 07/19/2024 07/20/2023 B-12 07/19/2024 07/20/2023 Diabetic Foot Exam 07/19/2024 07/20/2023, 0 01/03/2017, 02/17/2015, Additional history exists HbA1c 10/03/2024 04/05/2024, 06/0 09/2023, 10/19/2023, Additional history exists Diabetic Eye Exam 12/12/2024 12/13/2023, , 07/13/2023, Additional history exists Albumin/Creatinine Ratio 03/26/20252 024, 01/04/2023, 07/05/2022, Additional history exists GFR 04/05/2025 04/05/2024, 03/0 10/2023, 01/04/2023, Additional history exists Depression Screening 04/10/2025 04/10/2024 Cologuard 2026 2023, 05/16, 05/25/2023 Colonoscopy 06/29/2028 [...] this encounter Medical Devices Implanted Type Area Auto Hiker Device Identifier Shelf Expiration Date Model / Serial / Lot Iol Mx60 14.0 Implanted:Qty: 1 on 10/19/2019 by Ankit Ny MD at OR [facility] Right: Eye 04/14/2020 MX60 / [id number] / [id number] Implanted:Qty: 1 on 10/30/2019 by Ankit Ny MD at OR [facility] Left: Eye 02/12/2021 MX60 / [id number] / [id number] documented as of this encounter Care Teams Residential Sales Manager Relationship Specialty Start Date End Date September, Declan Person MD [address] [place] [address] PCP - General Family Medicine 05/20/23 documented as of this encounter
--- OUTSIDE RECORDS SUMMARY | 2024-04-18 11:58 | External Medical Summary | Summary of Care ---
Author Name Unknown Organization [facility] Address [address] [facility] [place] [address] Phone [phone] Care Team Providers Care Statistical Technician Name Role Phone Declan Dejesus MD Primary Care Provider Encounter Details Date Type Department Care Team (Late st Contact Info) Description 04/09/2024 Telephone Cardiology, [facility] [address] [place] [address] Kareen Boyd CRNP [address] [address] Allergies Active Allergy Reactions Criticality Noted Date Comments Empagliflozin 10/06/2020 Fungal infection, urinary frequency Lisinopril Cough Nickel Rash 09/13/2011 Tetanus Toxoids Rash 09/13/2011 documented as of this encounter (statuses as of 04/11/2024) Medications MULTI VITAMIN MENS PO TABS one [...] evening. 180 Tablet 1 4 Active Acetaminophen 325 MG Oral Capsule Take 1 Tablet by mouth every 4 hours as needed for Pain. 024 Discontin ued(Medic ation List Clean Up) Acetaminophen 500 MG Oral Tablet (Tylenol Extra Strength) Take 2 Tablets by mouth in the morning and 2 Tablets at noon and 2 Tablets before bedtime. 024 Discontin ued(Medic ation List Clean Up) Vitamin C 500 MG Oral Tablet (Ascorbic Acid) Take 1 Tab by mouth daily. 30 Tab 06/ 024 Discontin ued(Medic ation/Dos e Changed) documented as of this encounter (statuses as of 04/11/2024) Active Problems Problem Noted Date Diagnosed Date [...] as of this encounter (statuses as of 04/11/2024) Resolved Problems Problem Noted Date Diagnosed Date Resolved Date Primary open-angle glaucoma, right eye, moderate stage 10/16/2020 08/15/2023 Overview (08/15/2023): Noted on pl as OU moderate Glaucoma 08/27/2013 06/07/2022 Overview (06/07/2022): More specific dx on pl HTN, goal below 140/80 07/03/201210/29 Overview: Per HTN Protocol documented as of this encounter (statuses as of 04/11/2024) Immunizations Name Administration Dates Next Due COVID-19 mRNA, LNP-s, No Pre serve, 2-Dose Series (Moderna) 08/19/2020,07/22/2020 COVID-19, MRNA-LNP, PF, 50 M CG/0.5 mL, 12 YRS AND ABOVE, IM (MODERNA-Spikevax) 04/04/2023 COVID-19, mRNA, LNP-s, PF, B ooster, 100mcg/0.5mg (Moderna) 04/16/2021 Covid-19 Ad26, Single Dose (Sylvia/J&J) 08/19/2020,07/22/2020 Pneumococcal Conjugate Vacci ne, 20-valent ([id number]) 05/20/2023 Pneumococcal Polysaccharide PPV23 (Pneumovax) 03/11/2009,10/11/2008(Deferred: Patient [...] No 04/10/2024 Does the [facility] have [facility]? (Household - for [...] daily living? Check all that apply. No 024 Do you (or your family) have trouble [...] encounter Miscellaneous Notes * Telephone Encounter - Kareen Boyd CRNP - 04/11/2024 12:23 PM EST Noted. Thank you * Telephone Encounter - Demetris Miller OSA - 04/11/2024 10:21 AM EST Patient has been scheduled and hold removed: NEW CARDIOLOGY at 11:30 AM (60 min)Arrive by 11:15 AM April Appointment Provider:Kareen Boyd CRNP in CARDIOLOGY [facility] * Telephone Encounter - Bruna Carter RN - 04/11/2024 10:09 AM EST Conversion complete. Please schedule and remove hold. * Telephone Encounter - Diana Cole RN - 04/10/2024 3:28 PM EST Spoke to patient, verifying his upcoming Cardiology appointment is on 04/26/2024 at 11:30am. He verbalized understanding and expressed appreciation for the clarification. Diana Cole RN, BSN [facility] Assistant Associate Full Professor [phone] * Telephone Encounter - Demetris Miller OSA - 04/10/2024 2:59 PM EST I am sorry, it was for 04/26/24 at 1130. My mistake. Thank you. * Telephone Encounter - Diana Cole RN - 04/10/2024 2:53 PM EST While speaking with patient, he mentioned he was offered a Cardiology appointment on either 04/26/2024 or 04/27/2024 and accepted an appointment on 04/26/2024 at 11:30am. Per review of this encounter, it states patient accepted an appointment on 04/27/2024 at 11:30am. Please contact patient to clarify his appointment date/time and ensure the appointment is scheduledin [facility]. Thanks, Diana Cole RN, BSN [facility] Assistant Associate Full Professor [phone] * Telephone Encounter - Demetris Miller OSA - 04/10/2024 10:49 AM EST Called patient, he accepted 04/27/24 at 1130 am with Kareen. Thank you. * Telephone Encounter - Bruna Carter RN - 04/09/2024 3:12 PM EST Acceptable to offer close in new as per below. Please route back once date/time confirmed and will submit. * Telephone Encounter - Demetris Miller OSA - 04/09/2024 2:01 PM EST jeff Mcfarland I offer this patient a WORKING SECOND HAND Clos Rel with Yonatan, he has several upcoming appts. And this patient also has an ECHO scheduled on 04/25. Thank you. * Telephone Encounter - Kareen Boyd CRNP - 04/09/2024 1:37 PM EST New patient establish care/ Hospital discharge follow up: Patient needs to be scheduled for a new patient appointment/ Hospital discharge follow up Admitted [facility] 04/06/2024- Anticipated DC date Today. DX: Symptomatic anemia Symptomatic Severe with preserved EF REMBERTO HTN DM Dyslipidemia Patient needs to be established with General cardiology and they will likely proceed with a valve clinic referral (leave at their discretion) Patient was seen by Dr. Allen and yonatan Durham PA-C inpatient. Please try to arrange within the next 4 weeks. Important. Thank you, Kareen documented in this encounter Plan of Treatment Upcoming Encounters Date Type Department Care Team (Late st Contact Info) Description 04/16/2024 9:00 AM EST Office Visit Ashleigh Husain [address] [phone] SeptemberDeclan MD [address] [address] 04/20/2024 11:20 AM EST Office Visit Family Practice, [place] [facility] [address] [facility] [place] [phone] Declan Dejesus MD [address] [place] [address] 04/25/2024 7:15 AM EST Cardiac Studies Cardiac Studies, [facility] [address] [facility] [address] 04/26/2024 11:30 AM EST Office Visit Cardiology, [facility] [address] [address] K[facility]en Boyd CRNP [address] [facility] [address] 07/24/2024 10:00 AM EDT Nurse Only [facility] [address] [facility] [place] [phone] Ashleigh Nurse Annual Wellness [address] [place] [address] Scheduled Procedures Name Priority Associated Diagnoses Date/Ti [...] 07/05/2022, Additional history exists GFR 04/05/2025 04/05/2024, 030 10/2023, 01/04/2023, Additional history exists Depression Screening [...] this encounter Medical Devices Implanted Type Area Cloud Solutions Architect Device Identifier Shelf Expiration Date Model / Serial / Lot Iol Mx60 14.0 Implanted:Qty: 1 on 10/19/2019 by Ankit Ny MD at [facility] Right: Eye 04/14/2020 MX60 / [id number] / [id number] Implanted:Qty: 1 on 10/30/2019 by Ankit Ny MD at OR [facility] Left: Eye 02/12/2021 MX60 / [id number] / [id number] documented as of this encounter Care Teams Statistical Technician Relationship Specialty Start Date End Date September, Declan Person MD [address] [address] PCP - General Family Medicine 05/20/23 documented as of this encounter
--- OUTSIDE RECORDS SUMMARY | 2024-04-18 11:58 | External Medical Summary ---
Author Name Unknown Address Unknown Organization K01:LABORATORY [facility] [place] - [address] [place] [address] Laboratory Report Ordering Provider Test Date Status TIFFANY HERNANDEZ 04/16/2024 10:12:30 Final Observation Date Value Abnormality Reference (Units ) Status Iron 04/16/2024 10:12:30 122 45-176 (ug /dL) Final Iron-binding capacity 04/16/2024 10:12:30 383 250-425 (ug/dL) Final Transferrin Sat % 04/16/2024 10:12:30 32 15 -55 (%) Final Performing Location LABORATORY [facility] [place] - [address] [place] [address]
--- OUTSIDE RECORDS SUMMARY | 2024-04-18 11:58 | External Medical Summary | Summary of Care ---
Author Name Unknown Organization [facility] Address [address] [facility] [place] [address] Phone [phone] Care Team Providers Care Civil Drafting Technician Name Role Phone Declan Dejesus MD Primary Care Provider [phone] Reason for Visit * Reason Onset Date Comments Hospital Follow-Up Patient is he re for a hospital follow up from [facility] 04/06-04/09 for GI bleed and Anemia. Hospital Follow-Up 04/16/2024 Encounter Details Date Type Department Care Team (Late st Contact Info) Description 04/16/2024 9:00 AM EST Office Visit [facility] Ashleigh Nes[address]itt [address] [phone] Declan Dejesus MD [address] [address] Hospital discharge follow-up*; Severe aortic stenosis; Acute blood loss anemia; Iron deficiency anemia due to chronic blood loss; HTN, goal below 140/90; Type 2 diabetes mellitus with hemoglobin A1c goal of less than 7.0% ([facility]); Dyslipidemia, goal LDL below 130 Allergies Active Allergy Reactions Criticality Noted Date [...] Tablet in the evening. 180 Tablet 1 11/21/202 4 Active Acetaminophen 500 MG Oral Capsule [...] (Sylvia/J&J) 08/19/2020,07/22/2020 Pneumococcal Conjugate Vacci ne, 20-valent ([id number]) 05/20/2023 Pneumococcal Polysaccharide PPV23 (Pneumovax) 03/11/2009,10/11/2008(Deferred: Patient [...] No 04/10/2024 Does the household have a re gular [...] Sign Reading Time Taken Comments Blood Pressure 126/60 04/16/2024 9:18 AM EST Pulse 84 04/16/2024 9:18 AM EST Temperature 36.9 C (98.4 F) 04/16/2024 9:18 AM ES T Respiratory Rate 18 04/16/2024 9:18 AM EST Oxygen Saturation 97% 04/16/2024 9:18 AM EST Inhaled Oxygen Concentration - - Weight 108.7 kg (239 lb 9.6 oz) 04/16/2024 9:18 AM EST Height - - Body Mass Index 34.88 04/05/2024 7:51 AM EST documented in this encounter Progress Notes * Declan Dejesus MD - 04/16/2024 9:15 AM EST Images from the original note were not included. Assessment and Plan 1. Severe aortic stenosis Severe aortic stenosis on echocardiogram completed 04/06/2024 during hospitalization at [facility]. Recommendation is for evaluation by Cardiology to consider AVR. We will get a carotid ultrasound as recommended by the hospital team and await evaluation on 04/26/2024 with Cardiology through [facility]. - [facility] DUPLEX CAROTID BILAT 2. Acute blood loss anemia Stable hemoglobin during hospitalization. Status post Venofer. Erosions noted in the stomach. Consideration for Heyde syndrome in the setting of severe aortic stenosis. Patient is taking pantoprazoleonce daily. Recommended twice daily dosing. CBC prior to leaving the office today to ensure stability of HGB. Does have follow up with Gastroenterology scheduled for June 2024. Continue oral ironsupplementation. - CBC; Future 3. Iron deficiency anemia due to chronic blood loss 4. HTN, goal below 140/90 Blood pressure 126/60 in office today. Continue losartan 50 mg daily. 5. Type 2 diabetes mellitus with hemoglobin A1c goal of less than 7.0% (HCC) Type 2 diabetes with most recent A1c 4.9 impacted by anemia. Blood sugars at home has been running in the low 200s. Recommend ongoing use of metformin 1000 mg twice daily and glimepiride 2 mg daily. 6. Dyslipidemia, goal LDL below 130 Continue rosuvastatin 40 mg daily. 7. Hospital discharge follow-up (Primary) - DISCH MED RECON CUR MED LIS Wrap-Up Follow up in 3 months with PCP, as scheduled with specialists. History of Present Illness The patient is a 68-year-old male with past medical history of type 2 diabetes, dyslipidemia, hypertension, REMBERTO on CPAP, obesity, BPH, vertigo, iron-deficiency anemia who presents for hospital followup. The patient was admitted to [facility] from 04/06/2024 through 04/09/2024. Patient initially presented to the ED due to hemoglobin drop from 13-8.9 with a associated fatigue and shortness of breath. In the ED hemoglobin was 8.8 with positive Hemoccult. He received IV Protonix and Pepcid in the ED. he underwent CT abdomen pelvis which was unremarkable with no findings of active GI bleed. Patient underwent EGD per GI recommendations. This showed irregular GE junction withbiopsy collected to rule out Larsen's and H pylori. He was recommended PPI twice daily for at least a month. Avoid NSAIDs. It was recommended he follow up outpatient with Gastroenterology. His anemia panel showed normal folate and B12. Transferrin saturation was 6% and therefore he was given IV Venofer. Cardiology evaluated the patient due to intermittent chest pain. He was known aortic stenosis and there was concern for Heyde syndrome as a cause of his GI bleed. Recommendation is for outpatient workup for aortic valve replacement. He is scheduled to see cardiology on 04/26/2024. Today patient reports he feels fairly well. Does report ongoing symptoms of fatigue and a chronic hang over tight feeling as he describes it. Denies any bright red blood per rectum. Eating and drinking normally. He was unsure if he was taking his Protonix twice daily as directed. He maybe only taking them once daily. He will check on this when he returns home. Physical Exam Vitals: 04/16/24 0918 Temp: 98.4 F (36.9 C) Pulse: 84 Resp: 18 SpO2: 97% BP: 126/60 Physical Exam Physical Exam Vitals reviewed. Constitutional: General: He is not in acute distress. Cardiovascular: Rate and Rhythm: Normal rate and regular rhythm. Heart sounds: Murmur heard. Comments: 3/6 systolic ejection murmur. Pulmonary: Effort: Pulmonary effort is normal. No respiratory distress. Breath sounds: Normal breath sounds. No wheezing. Musculoskeletal: Comments: Trace edema to the mid rasheed bilaterally. Neurological: General: No focal deficit present. Mental Status: He is alert. Psychiatric: Mood and Affect: Mood normal. Behavior: Behavior normal. Time: I spent a total of 30-39 minutes (exact time 38 mins) on the date of service in preparation, delivery, and documentation of the care provided to the patient excluding any time spent in the performance of separately billed services. This note has been completed in part utilizing 248 [employer] Voice Recognition Software. Due to technical limitations of the software, grammatical errors, random word insertions, prounoun errors, and incomplete sentences may occur. Any formal questions or concerns about the content, text, or information contained within the body of this dictation should be directly addressed to the provider for clarification. documented in this encounter Nursing Notes * Bev Schuler LPN - 04/16/2024 9:18 AM EST The patient has been properly identified by confirmation of name and date of . Chief Complaint Patient presents with Hospital Follow-Up Patient is here for a hospital follow up from [facility] 04/06-04/09 for GI bleed and Anemia. documented in this encounter Plan of Treatment Upcoming Encounters Date Type Department Care Team (Late st Contact Info) Description 04/23/2024 8:30 AM EST [facility] [address] [address] 04/26/2024 11:30 AM EST Office Visit Cardiology, [facility] [address] [facility] [place] [address] Kareen Boyd CRNP [address] [facility] [place] [address] 07/20/2024 10:20 AM EST Office Visit Family [facility], [place]leigh Gallegos [address] [phone] Declan Dejesus MD [address] [address] 07/24/2024 10:00 AM EDT Nurse Only Ancillary Department, [place] Kamara [address] [phone] Ashleigh Nurse [facility] [address] [place] [address] Pending Results Name Type Priority Associated Diagnoses Date /Time CBC Lab Routine Acute blood loss anemia 04/16/2024 10:12 AM EST Scheduled Orders Name Type Priority Associated Diagnoses Orde r Schedule VASC DUPLEX CAROTID BILAT Medical Imaging Routine Severe aortic stenosis Ordered: 04/16/2024 CBC Lab Routine Acute blood loss anemia Expected: 04/16/2024 (Approximate), Expires: 04/16/2025 Scheduled Procedures Name Priority Associated Diagnoses Date/Ti [...] this encounter Medical Devices Implanted Type Area Pierce And Shave Press Operator Device Identifier Shelf Expiration Date Model / Serial / Lot Iol Mx60 14.0 Implanted:Qty: 1 on 10/19/2019 by Ankit Ny MD at OR [facility] Right: Eye 04/14/2020 MX60 / [id number] / [id number] Implanted:Qty: 1 on 10/30/2019 by Ankti Ny MD at OR [facility] Left: Eye 02/12/2021 MX60 / [id number] / [id number] documented as of this encounter Visit Diagnoses Diagnosis Hospital discharge follow-up- Primary Other follow-up examination Severe aortic stenosis Aortic valve disorders Acute blood loss anemia Acute posthemorrhagic anemia Iron deficiency anemia due to chronic blood loss Iron deficiency anemia secondary to blood loss (chronic) HTN, goal below 140/90 Unspecified essential hypertension Type 2 diabetes mellitus with hemoglobin A1c goal of less than 7.0% (HCC) Dyslipidemia, goal LDL below 130 Other and unspecified hyperlipidemia documented in this encounter Care Teams Civil Drafting Technician Relationship Specialty Start Date End Date September, Declan Person MD [address] [place] [id number] PCP - General Family Medicine 05/20/23 documented as of this encounter
--- OUTSIDE RECORDS SUMMARY | 2024-04-18 11:58 | External Medical Summary ---
Author Name Unknown Address Unknown Organization K01:LAB[facility]ATORY [facility] [place] - [address] [place] [address] Laboratory Report Ordering Provider Test Date Status TIFFANY HERNANDEZ 04/16/2024 10:12:30 Final Observation Date Value Abnormality Reference (Units ) Status Vitamin B12 04/16/2024 10:12:30 444 648-5465 (pg/mL) Final Performing Location LABORATORY [facility] - [address] [place] [address]
--- OUTSIDE RECORDS SUMMARY | 2024-04-18 11:58 | External Medical Summary | Summary of Care ---
Author Name Unknown Organization [facility] Address [address] [place] [place] [address] Phone [phone] Care Team Providers Care Flavoring Oil Filterer Name Role Phone Declan Dejesus MD Primary Care Provider [phone] Encounter Details Date Type Department Care Team (Late st Contact Info) Description 04/09/2024 Population Health External Data Unspecified Department Allergies Active Allergy Reactions Criticality Noted Date Comments Empagliflozin 10/06/2020 Fungal infection, urinary frequency Lisinopril Cough Nickel Rash 09/13/2011 Tetanus Toxoids Rash 09/13/2011 documented as of this encounter (statuses as of 04/09/2024) Medications MULTI VITAMIN MENS PO TABS one [...] the evening. 180 Tablet 1 4 Active documented as of this encounter (statuses as of 04/09/2024) Active Problems Problem Noted Date Diagnosed Date [...] as of this encounter (statuses as of 04/09/2024) Resolved Problems Problem Noted Date Diagnosed Date Resolved Date Primary open-angle glaucoma, right eye, moderate stage 10/16/2020 08/15/2023 Overview (08/15/2023): Noted on pl as OU moderate Glaucoma 08/27/2013 06/07/2022 Overview (06/07/2022): More specific dx on pl HTN, goal below 140/80 07/03/201210/29 Overview: Per HTN Protocol documented as of this encounter (statuses as of 04/09/2024) Immunizations Name Administration Dates Next Due COVID-19 mRNA, LNP-s, No Pre serve, 2-Dose Series (Moderna) 08/19/2020,07/22/2020 COVID-19, MRNA-LNP, PF, 50 M CG/0.5 mL, 12 YRS AND ABOVE, IM (MODERNA-Spikevax) 04/04/2023 COVID-19, mRNA, LNP-s, PF, B ooster, 100mcg/0.5mg (Moderna) 04/16/2021 Covid-19 Ad26, Single Dose (Sylvia/J&J) 08/19/2020,07/22/2020 Pneumococcal Conjugate Vacci ne, 20-valent ([id number]) 05/20/2023 Pneumococcal Polysaccharide PPV23 (Pneumovax) 03/11/2009,10/11/2008(Deferred: Patient [...] Office Visit Family Practice, [place] Gallegos [address] [phone] SeptemberDeclan MD [address] [facility] [place] [address] 04/25/2024 7:15 AM EST Cardiac Studies Cardiac Studies, [facility] [address] [facility] [place] [address] 07/24/2024 10:00 AM EDT Nurse Only Ancillary Department, Ashleigh Kamara [address] [phone] Ashleigh Nurse [facility] [address] [address] Scheduled Procedures Name Priority Associated Diagnoses Date/Ti [...] Additional history exists AAA Screening Completed 10/18/2018, 06/0 09/2018, 11/11/2014, Additional history exists Pneumococcal Vaccine: [...] this encounter Medical Devices Implanted Type Area Applications Sales Representative Device Identifier Shelf Expiration Date Model / Serial / Lot Iol Mx60 14.0 Implanted:Qty: 1 on 10/19/2019 by Ankit Ny MD at OR [facility] Right: Eye 04/14/2020 MX60 / [id number] / [id number] Implanted:Qty: 1 on 10/30/2019 by Ankit Ny MD at OR [facility] Left: Eye 02/12/2021 [id number] / [id number] / [id number] documented as of this encounter Care Teams Flavoring Oil Filterer Relationship Specialty Start Date End Date September, Declan Person MD [address] [place] [address] PCP - General Family Medicine 05/20/23 documented as of this encounter
--- OUTSIDE RECORDS SUMMARY | 2024-04-18 11:58 | External Medical Summary | Summary of Care ---
Author Name Unknown Organization [facility] Address [address] [place] [address] Phone [phone] Care Team Providers Care Cart Pusher Name Role Phone Declan Dejesus MD Primary Care Provider [phone] Reason for Visit * Reason Comments Outpatient Testing Encounter Details Date Type Department Care Team (Late st Contact Info) Description 04/16/2024 9:20 AM EST Laboratory Laboratory, [facility] [address] [place] [phone] [place], Laboratory [address] [place] [address] Fatigue, unspecified type; Anemia, unspecified type; Acute blood loss anemia Allergies Active Allergy Reactions Criticality Noted Date [...] A1c goal of less than 7.0% ([facility]) Take 1 Tablet by mouth in the [...] (Sylvia/J&J) 08/19/2020,07/22/2020 Pneumococcal Conjugate Vacci ne, 20-valent ([id number]) 05/20/2023 Pneumococcal Polysaccharide PPV23 (Pneumovax) 03/11/2009,10/11/2008(Deferred: Patient [...] No 04/10/2024 Does the household have a [facility] source [facility] income? (Household - for [...] 04/23/2024 8:30 AM EST Imaging Vascular Lab, [facility] [facility] [address] [address] 04/26/2024 11:30 AM EST Office Visit Cardiology, [facility] [address] [address] Kareen Boyd CRNP [address] [address] 07/20/2024 10:20 AM EST Office Visit Family Practice, [place] Gallegos [address] [place] [address] SeptemberDeclan MD [address] [address] 07/24/2024 10:00 AM EDT Nurse Only Ancillary Department, Ashleigh Kamara [address] [place] [phone] Ashleigh, Nurse [facility] [address] [facility] [address] [phone] Pending Results Name Type Priority Associated Diagnoses Date /Time 25-HYDROXY VITAMIN D Lab Routine Fatigue, unspecified type 04/16/2024 10:12 AM EST IRON SCREEN, INCLUDING TIBC Lab Routine Anemia, unspecified type 04/16/2024 10:12 AM EST VITAMIN B12 Lab Routine Anemia, unspecified type 04/16/2024 10:12 AM EST CBC Lab Routine Acute blood loss anemia 04/16/2024 10:12 AM EST Scheduled Procedures Name Priority Associated [...] 07/05/2022, Additional history exists GFR 04/05/2025 04/05/2024, 10/2023, 01/04/2023, Additional history exists Depression Screening [...] this encounter Medical Devices Implanted Type Area Elect Equip Maint Eng Device Identifier Shelf Expiration Date Model / Serial / Lot Iol Mx60 14.0 Implanted:Qty: 1 on 10/19/2019 by Ankit Ny MD at OR [facility] Right: Eye 04/14/2020 [id number] / [id number] / [id number] Implanted:Qty: 1 on 10/30/2019 by Ankit Ny MD at OR [facility] Left: Eye 02/12/2021 [id number] / [id number] / [id number] documented as of this encounter Visit Diagnoses Diagnosis Fatigue, unspecified type Anemia, unspecified type Acute blood loss anemia Acute posthemorrhagic anemia documented in this encounter Care Teams Cart Pusher Relationship Specialty Start Date End Date September, Declan Person MD [address] [address] PCP - General Family Medicine 05/20/23 documented as of this encounter
--- OUTSIDE RECORDS SUMMARY | 2024-04-18 11:58 | External Medical Summary ---
Author Name Unknown Address Unknown Organization K01:LAB[place]ATORY [facility] [place] [address] [place] [address] Laboratory Report Ordering Provider Test Date Status TIFFANY HERNANDEZ 04/16/2024 10:12:30 Final Deficient: <20 ng/mL
Ins ufficient: 20-29 ng/mL
Recommended/Optimum:30-50 ng/mL

Vitamin D intoxication is rare. If suspicious of Vitamin D toxicity, evaluation of serum Calcium and PTH is recommended. Observation Date Value Abnormality Reference (Units ) Status 25-OH Vitamin D total 04/16/2024 10:12:30 64 >19 (ng/mL) Final Performing Location LABORATORY [facility] [place] [address] [place] [address]
--- OUTSIDE RECORDS SUMMARY | 2024-04-18 11:58 | External Medical Summary | Summary of Care ---
Author Name Unknown Organization [facility] Address [address] [place] [place] [address] Phone [phone] Care Team Providers Care Collating Machine Operator Name Role Phone Declan Dejesus MD Primary Care Provider [phone] Encounter Details Date Type Department Care Team (Late st Contact Info) Description 04/06/2024 Result Scan Unspecified Department <No scans attached> Allergies Active Allergy Reactions Criticality Noted Date Comments Empagliflozin 10/06/2020 Fungal infection, urinary frequency Lisinopril Cough Nickel Rash 09/13/2011 Tetanus Toxoids Rash 09/13/2011 documented as of this encounter (statuses as of 04/10/2024) Medications MULTI VITAMIN MENS PO TABS one [...] as of this encounter (statuses as of 04/10/2024) Active Problems Problem Noted Date Diagnosed Date [...] as of this encounter (statuses as of 04/10/2024) Resolved Problems Problem Noted Date Diagnosed Date Resolved Date Primary open-angle glaucoma, right eye, moderate stage 10/16/2020 08/15/2023 Overview (08/15/2023): Noted on pl as OU moderate Glaucoma 08/27/2013 06/07/2022 Overview (06/07/2022): More specific dx on pl HTN, goal below 140/80 07/03/201210/29 Overview: Per HTN Protocol documented as of this encounter (statuses as of 04/10/2024) Immunizations Name Administration Dates Next Due COVID-19 mRNA, LNP-s, No Pre serve, 2-Dose Series (Moderna) 08/19/2020,07/22/2020 COVID-19, MRNA-LNP, PF, 50 M CG/0.5 mL, 12 YRS AND ABOVE, IM (MODERNA-Spikevax) 04/04/2023 COVID-19, mRNA, LNP-s, PF, B ooster, 100mcg/0.5mg (Moderna) 04/16/2021 Covid-19 Ad26, Single Dose (Sylvia/J&J) 08/19/2020,07/22/2020 Pneumococcal Conjugate Vacci ne, 20-valent ([id number]) 05/20/2023 Pneumococcal Polysaccharide PPV23 (Pneumovax) 03/11/2009,10/11/2008(Deferred: Patient [...] Description 04/16/2024 9:00 AM EST [place] [phone] Declan Dejesus MD [address] [address] 04/20/2024 11:20 AM EST Office Visit [place] Husain [address] [phone] SeptemberDeclan MD [address] [address] 04/25/2024 7:15 AM EST Cardiac Studies Cardiac Studies, [facility] [address] [place] [address] 07/24/2024 10:00 AM EDT Nurse Only Ancillary Department, [address] [phone] Ashleigh, Nurse [facility] [address] [place] [phone] Scheduled Procedures Name Priority Associated Diagnoses Date/Ti [...] this encounter Medical Devices Implanted Type Area Medical Receptionist Assistant Device Identifier Shelf Expiration Date Model / Serial / Lot Iol Mx60 14.0 Implanted:Qty: 1 on 10/19/2019 by Ankit Ny MD at OR [facility] Right: Eye 04/14/2020 MX60 / [id number] / Mx60 Implanted:Qty: 1 on 10/30/2019 by Ankit Ny MD at OR [facility] Left: Eye 02/12/2021 MX60 / [id number] / [id number] documented as of this encounter Procedures Procedure Name Priority Date/Time Associated Diagnosis Comments ECHOCARDIOLOGY SCANNED RESULT 04/06/2024 documented in this encounter Results * ECHOCARDIOLOGY SCANNED RESULT (04/06/2024) 04/06/2024 us No Physician Data Unknown ECHOCARDIOLOGY Final Result documented in this encounter Care Teams Collating Machine Operator Relationship Specialty Start Date End Date September, [facility] [address] [facility] [address] PCP - General Family Medicine 05/20/23 documented as of this encounter
--- OUTSIDE RECORDS SUMMARY | 2024-04-18 11:58 | External Medical Summary ---
Author Name Unknown Address Unknown Organization K01:LABORATORY [facility] [place] [facility] [address] Laboratory Report Ordering Provider Test Date Status 04/16/2024 10:12:30 Final Observation Date Value Abnormality Reference (Units ) Status WBC, Total 04/16/2024 10:12:30 7.32 4.00-10.80 (K/uL) Final RBC 04/16/2024 10:12:30 2.22 4.50-5.25 (M/uL) Final Hemoglobin 04/16/2024 10:12:30 7.1 Below low normal 14.0-16.8 (g/dL) Final HCT 04/16/2024 10:12:30 24.0 Below low normal 40.0-48.4 (%) Final MCV 04/16/2024 10:12:30 108.1 82.0-99.5 (fL) Final MCH 04/16/2024 10:12:30 32.0 27.0-34.0 (pg) Final MCHC 04/16/2024 10:12:30 29.6 32.0-36.0 (g/dL) Final RDW 04/16/2024 10:12:30 14.6 11.5-15.5 (%) Final Platelets 04/16/2024 10:12:30 206 140-400 (K/uL) Final MPV 04/16/2024 10:12:30 11.1 6.6-11.1 (fL) Final Nucleated erythrocytes/100 leukocytes [Ratio] in Blood by Automated count 04/16/2024 10:12:30 0 <=0 (/100 WBCs) Final Performing Location LABORATORY [facility] [place] - [address] [place] [address]
[2024-04-18 14:05] VITALS: TEMP 99; O2SAT 93
[2024-04-18 14:42] VITALS: BP 108/65; PULSE 74
== END 2024-04-18 15:18 | disposition home or self-care (01) | DRG 307 ==
LOC: ED 09:09 → 2N 11:56 → SUATTDRO 11:56 → 2N 14:47

== ENCOUNTER 2024-07-04 11:12 | Inpatient (IN) ==
[2024-07-04 11:41] LABS: Basophils # (auto) 0.06 K/uL (0.00-0.20); Basophils % (auto) 0.7 %; Eosinophils # (auto) 0.15 K/uL (0.00-0.50); Eosinophils % (auto) 1.6 %; Hematocrit (blood only) 28.1 % (42.0-52.0); Hemoglobin 8.3 g/dl (14.0-18.0); Immature Granulocytes # (auto) 0.03 K/uL (0.01-0.20); Immature Granulocytes % (auto) 0.3 %; Lymphocytes # (auto) 0.79 K/uL (1.20-3.40); Lymphocytes % (auto) 8.7 %; Mean Corpuscular Hemoglobin 23.6 pg (25.0-34.0); Mean Corpuscular Hgb Conc 29.5 g/dL (32.0-36.0); Mean Corpuscular Volume 80.1 fL (80.0-100.0); Mean Platelet Volume 11.2 fL (9.4-12.4); Monocytes # (auto) 0.65 K/uL (0.11-0.59); Monocytes % (auto) 7.1 %; Neutrophils # (auto) 7.45 K/uL (1.40-6.50); Neutrophils % (auto) 81.6 %; Platelet Count 212 K/uL (130-400); RDW Coefficient of Variation 16.5 % (11.5-14.5); RDW Standard Deviation 47.1 fL (36.4-46.3); Red Blood Count 3.51 M/uL (4.70-6.10); White Blood Count 9.13 K/ul (4.8-10.8)
[2024-07-04 11:51] LABS: Partial Thromboplastin Ratio 0.9; Partial Thromboplastin Time 25 Seconds (21-31); Prothrombin Time 11.2 Seconds (9.0-12.0)
--- NOTE | 2024-07-04 11:51 | Operative Report ---
Post Operative Report Patient:Rafael Cantu MR#:[id number] Date:1955 DATE OF PROCEDURE: 07/04/2024 PREOPERATIVE DIAGNOSIS: Supraventricular tachycardia. POSTOPERATIVE DIAGNOSIS: Typical atrioventricular red reentrant tachycardia. PROCEDURES PERFORMED: Electrophysiology study, ultrasound guidance venous access, radiofrequency ablation of the slow pathway with slow pathway modification, isuprel drug infusion, 3D anatomical mapping of the His bundle region and the coronary sinus. SURGEON: Divya Nation DO. MANAGER CARE MANAGEMENT: None. ANESTHESIA: Monitored conscious sedation administered under my supervision by Samra Yoo Start time 08:11 and end time 11:04. A total of 6 mg of Versed and 150 mcg of fentanyl. INTRAVENOUS FLUIDS: 60 mL. BLOOD LOSS: 5 mL URINE OUTPUT: Not applicable. SPECIMENS: None. FINDINGS: See below. DRAINS: None. COMPLICATIONS: None. CONDITION: Stable. INDICATIONS: This is a 69-year-old female who has a past medical history for PAT on zio patch 03/2024 along with WCT thought to be more SVT with aberrancy on zio patch, HTN, HLD, Hypothyroidism and palpitations. Due to the recurrent symptomatic palpitations with possible SVT, she was recommended an electrophysiology study with possible ablation. CONSENT: Consent was obtained prior to the patient going into the electrophysiology lab. The patient was informed of risks, benefits, and alternatives to the procedure. Risks include, but not limited to sudden cardiac , cardiac arrhythmias, cerebrovascular accident, myocardial infarction, injury to the blood vessels, chamber of the heart, or the modoc electrical system where she would need a permanent pacemaker, bleeding, and infection. The patient understood these risks and agreed to the procedure as planned. Informed consent was obtained. DESCRIPTION OF PROCEDURE: The patient was brought into the electrophysiology lab in a fasting state. She was connected to continuous cardiac monitoring. A time-out was performed to ensure the patient identity and procedure correctly. She was prepped and draped over bilateral groins in normal surgical standard fashion. Monitored conscious sedation was given throughout the procedure for the patient's comfort level. [place] precautions were maintained throughout the procedure. A 10 mL of 1% lidocaine-bupivacaine mixture were given in the bilateral groins each for local anesthesia. Then, using the modified Seldinger technique under ultrasound guidance, venous access was obtained in the following manner. The left femoral vein had a 6-Pakistani sheath followed by a Monika quadripolar catheter positioned in the right ventricular apex. A 7-Pakistani sheath followed by octopole the Hisser catheter positioned over the His bundle region. A 7-Pakistani sheath followed by a Biosense DF curved decapolar coronary sinus positioned out in the coronary sinus. The right femoral vein had a 6-Pakistani sheath followed by a Monika quadripolar catheter positioned in the right atrial appendage. A 6-Pakistani sheath that was ultimately swapped out for an SRO sheath followed by a non-irrigated Biosense DF 4 mm mapping ablation catheter. With all the diagnostic catheters in position, an electrophysiology study was performed with the following findings. Baseline intervals cycle length was 886 milliseconds. UT interval 172 milliseconds, QRS 82 milliseconds, QT 405 milliseconds. AH 97 milliseconds, HV 52 milliseconds. AV Wenckebach was found to be at 420 milliseconds. The AV node ERP was 650/320 and 500/410. But there were echo beats repeatedly at 650/450 and 500/450. The FP ERP was 650/460. The right atrial ERP was 650/210 and 500/270. The right ventricular ERP was 600/210 and 400/220. Giving double atrial extrastimuli from the high right atrium, as well as single atrial extrastimuli from C/S prox, I was not able to induce SVT, so then I started isuprel drug infusion. Once I had an adequate Isuprel response, I then repeated the electrophysiology study with the following findings. Sinus cycle length was 663 milliseconds. The UT interval was 114 milliseconds, QRS 75 milliseconds, QT 328 milliseconds, AH was 50 milliseconds, and the HV was 44 milliseconds. AV Wenckebach 320ms FP ERP 450/340 AVN ERP 450/250; i was getting echo beats with giving single atrial extrastimuli Atrial ERP 450/220 No inducible SVT with doubles from the HRA so the isoprel was increased to 4 with the higher increase of isoprel dose I still did not induce any SVT. So then I tried to induce during isoprel washout; which while giving doubles from the HRA at 500/410/300 the patient went into SVT. The tachycardia cycle length was 376 milliseconds. VA time was 44 milliseconds. There was concentric retrograde atrial activation and with entrainment and burst right ventricular pacing, the tachycardia continued after I thought and there was a VAV response, all suggesting that the patient's tachycardia was a typical AVNRT. The typical/may be slightly atypical given the longer VA time. I then set up to do a slow pathway modification. The right femoral 6-Pakistani vein, 6-Pakistani sheath was swapped out for the SRO and then the ablation catheter was advanced into the heart. I did 3D anatomical mapping of the His bundle region as well as the coronary sinus. Then, I positioned the catheter on the low right atrial septum area and started having a series of radiofrequency scott at 30 somers. I had to move up and septal and then got junctional beats; continued on RF for about a total of 1 minute; i did not give any further RF as the catheter was moving a lot with respiration and I felt that the 1 minute burn was good enough. So I pulled the ablation catheter back into the IVC and did a post ablation EPS and tried to re-induce SVT. Electrophysiology study post-ablation following findings: Baseline intervals, UT interval 181 milliseconds, QRS 61 milliseconds, QT 369 milliseconds. Sinus cycle length 772 milliseconds, AH 80 milliseconds, and HV 61 milliseconds. AV Wenckebach was 490 milliseconds. There was no evidence of a Fast pathway anymore; and there were no echo beats. The AV node ERP was 700/440 and at a 450/260. The atrial ERP was 700/240 and 450/220.I then gave up to singles without any inducible SVT, so then I started isuprel drug infusion. Once I had a successful response to the Isuprel, I did another electrophysiology study to see if I could induce SVT again post-ablation giving up to doubles from the HRA. I then tried to re-induce SVT with wash out on Isuprel and gave up to tripples from the HRA without any echo beats or SVT. As I am declared that we were successful with our ablation. All the catheters were removed from the body and the sheaths were pulled and manual compression was used to establish hemostasis. IMPRESSION: 1. Successful slow pathway modification radiofrequency ablation secondary to atrioventricular red reentrant tachycardia. 2. Dual atrioventricular red pathology. PLAN: Monitor the patient post-procedure. No heavy lifting or squatting for 1 week. For now we will continue the metoprolol 25mg BID and decide in follow up about possibly switching to toprol 25mg daily or taking metoprolol PRN. She will bel seen in the office in approximately 1 month's time.
[2024-07-04] MEDS: fentaNYL citrate PF 100 MCG/2 ML VIAL IV STA (11:57)
--- NOTE | 2024-07-04 12:00 | Electrocardiogram Report ---
Test Reason : Blood Pressure : */* mmHG Vent. Rate : 77 BPM Atrial Rate : 77 BPM P-R Int : 212 ms QRS Dur : 164 ms QT Int : 430 ms P-R-T Axes : -1 -9 86 degrees QTcB Int : 486 ms Sinus rhythm with 1st degree A-V block with Fusion complexes Left bundle branch block Abnormal ECG When compared with ECG of 17-Apr-2024 09:28, Fusion complexes are now Present Left bundle branch block is now Present Confirmed by Baron Pagan ([id number]) on 07/04/2024 12:00:39 PM Referred By: Divya Nation Confirmed By: Baron Pagan
[2024-07-04 12:04] LABS: Albumin Level 4.2 gm/dl (3.4-5.0); Bilirubin,Total 0.8 mg/dl (0.2-1.0); Potassium 4.4 mmol/L (3.5-5.1)
[2024-07-04 12:10] LABS: Albumin Globulin Ratio 1.4 (0.9-2); BUN Creatinine Ratio 22.1 (10-20); Creatinine Clr Calc Pharmacy 104.4 ml/min; Total Protein 7.2 gm/dl (6.0-8.3)
--- NOTE | 2024-07-04 12:11 | XRay Report ---
XR chest 1V portable CLINICAL HISTORY: Chest pain, nonspecific COMPARISON STUDY: Chest radiograph July 02, 2024. FINDINGS: Left subclavian pacer and prosthetic aortic valve are place. Moderate cardiomegaly is again noted. There is no evidence for pulmonary edema. There is no consolidation. No pneumothorax or pleur al effusion. IMPRESSION: No acute cardiopulmonary findings. No change in appearance of the chest. ACT 112: Negative or not required by law. Electronically signed by: Issa Pereira M.D. 07/04/2024 12:10 PM
--- NOTE | 2024-07-04 13:27 | Emergency Department Note ---
Impression & Plan Syncope and collapse, Sustained ventricular fibrillation ED Provider Note HISTORY OF PRESENT ILLNESS: Patient is a 69-year-old male presenting after syncopal episode. Patient reports that last night he was seated in a recliner watching TV when he suddenly felt unwell and his vision got fuzzy. The next thing he remembers was waking up in his recliner. He states he was able to get himself to bed but was feeling very rundown and fatigued. He called his daughter this morning and explained his situation, and she promptly brought him to the emergency department after consulting his rn community health. Patient just had a pacemaker placed 3 days ago. They were called by the pacemaker company and stated that "I had an arrhythmia and to come to the ER." Patient had a pacemaker placed for complete heart block and previous V. tach. Patient is complaining of pain at his pacemaker site. Denies any abdominal pain, nausea or vomiting. He does report feeling short of breath earlier today. Denies any anticoagulation use. Denies any history of cardiac stents. He had a valve replacement recently. ROS: as above PHYSICAL EXAM: Constitutional: Patient appears in no acute distress. HENT: Head: Normocephalic and atraumatic. Eyes: EOMI, PERRL Mouth/Throat: Mucous membranes moist. Neck: Trachea midline. Neck supple. Cardiovascular: Paced rhythm. No murmurs, rubs or gallops. Intact distal pulses. Pulmonary/Chest: No respiratory distress. Breath sounds clear and equal bilaterally. No wheezes or rales. Incision on left chest wall is clean/dry/intact. No drainage or palpable fluctuance underneath the incision. Abdominal: Abdomen soft, no tenderness, rebound or guarding. Musculoskeletal: No edema, tenderness or deformity noted. Skin: Warm and dry. No rash, erythema, pallor or cyanosis Psychiatric: Appropriate mood and affect for situation. Neurological: Alert and keenly responsive. CN II-XII grossly intact, moving all extremities equally and fully. MDM: - Vitals signs stable - History obtained via patient. History as above. - Chronic conditions affecting care: anemia; DM-2; GERD; BPH; HLD; aortic stenosis; complete heart block (s/p pacemaker) - Differential diagnoses include, but are not limited to: Dysrhythmia; electrolyte abnormality; ACS; pneumonia; anemia - Order placed for continuous cardiac monitoring. At this time, monitor showed rate of 70 bpm with paced rhythm, per my interpretation. - External medical records reviewed. Discharge summary dated 04/18/2024 was reviewed. Patient was admitted that time due to symptomatic severe aortic stenosis and symptomatic anemia. - Discussed case with patient's rn community health, Dr. Nation, at 13:27. She recommended laboratory workup and ordered an echocardiogram. She reported the patient had an episode of V. tach which is why they referred the patient to the ER. - EKG image interpreted by myself showed ventricular paced rhythm. Rate 71 bpm. - Laboratory workup interpreted by myself showed normal WBC; chronic anemia (Hgb 8.3); normal PT/INR; stable electrolytes; elevated troponin (26) - CXR image reviewed by myself is negative for pneumonia, per my interpretation. - Patient given 50 mcg IV fentanyl for chest and arm pain in the ER. - Discussion was had with leather case finisher about patient's case and need for admission - Hospitalist consulted for admission - Patient admitted to [facility] for further evaluation and management. ASSESSMENT AND PLAN: Diagnosis: Syncope and collapse; sustained ventricular tachycardia Plan: admit Past Med/Surg History Problem List (Updated 07/04/24 @ 15:08 by Kelli Stover MD) Sustained ventricular fibrillation (Acute) Syncope and collapse (Acute) Chronic anemia Hypomagnesemia S/P TAVR (transcatheter aortic valve replacement) Ventricular tachycardia Syncope and collapse Aortic stenosis (Acute) Generalized weakness (Acute) Dizziness (Acute) Symptomatic severe aortic stenosis with normal ejection fraction Symptomatic anemia (Acute) Acute GI bleeding (Acute) Occult blood in stools Acute on chronic anemia Osteoarthritis of right knee Anemia (Acute) Medical History Aortic stenosis, severe BPH (benign prostatic hyperplasia) REMBERTO on CPAP Obesity Dyslipidemia HTN (hypertension) Diabetes mellitus, type II History of colon polyps BENIGN Scoliosis Osteoarthritis BPH (benign prostatic hyperplasia) GERD (gastroesophageal reflux disease) Not an issue recently Diabetes mellitus, type 2 Anemia Glaucoma RESOLVED S/P SURGICAL INTERVENTION Hyperlipidemia Sleep apnea CPAP, COMPLIANT. Surgical History History of tonsillectomy Hx of repair of rotator cuff "bilateral" History of total right knee replacement (TKR) History of cardiac cath ABNORMAL STRESS TEST IN 2017 - NO STENTS. 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) History of repair of rotator cuff RT/LEFT History of esophagogastroduodenoscopy (EGD) History of colonoscopy History of tooth extraction History of tonsillectomy History of adenoidectomy History of myringotomy Family History Grandmother (Maternal) Family history of diabetes mellitus Mother Family history of esophageal cancer Sister Family history of diabetes mellitus Social History Smoking Status: Never smoker Tobacco Type: Cigarettes Second Hand Exposure: No; Do You Dip or Chew Tobacco: No; Hx Alcohol Use: Yes Alcohol type: beer Hx Substance Use: No Preferred Language: Azeri Communication Ability: Effective Technical Sales Associate Required: No Beliefs That Will Affect Care: None marital status: Current Living Situation: Alone Current Living Situation Comment: currently in rehab facility Feels Safe at Home: Yes Assistive Devices: Glasses Allergies Allergies Allergy/AdvReac Type Severity Reaction Status Date / Time nickel Allergy Unknown RASH Verified 07/02/24 09:42 tetanus toxoid, adsorbed Allergy Unknown ITCHING Verified 07/02/24 09:42 empagliflozin AdvReac Unknown URINARY Verified 07/02/24 09:42 [From Jardiance] TRACT INFECTION lisinopril AdvReac Unknown Cough Verified 07/02/24 09:42 polyethylene glycol 3350 AdvReac Unknown Verified 07/02/24 09:42 [From Miralax] Home Meds Home Medications Medication Instructions Recorded Confirmed dutasteride 0.5 mg capsule 0.5 mg PO QAM 08/11/18 07/02/24 metformin 1,000 mg tablet 1,000 mg PO BID 08/11/18 07/02/24 multivitamin 1 tab PO QAM 08/11/18 07/02/24 rosuvastatin 40 mg tablet 40 mg PO HS 08/11/18 07/02/24 glimepiride 2 mg tablet 2 mg PO QAM 08/22/20 07/02/24 tamsulosin 0.4 mg capsule 0.4 mg PO 10/01/20 07/02/24 timolol maleate 0.25 % eye drops 2 drp OPB DAILY 11/02/23 07/02/24 Tylenol Ex Str Rapid Release 1,000 mg PO DIRECTED PRN Pain 04/06/24 07/02/24 ascorbic acid (vitamin C) 1,000 mg 1 g PO Q6H 07/02/24 07/02/24 tablet (Vitamin C) aspirin 81 mg chewable tablet 81 mg PO DAILY 07/02/24 07/02/24 cholecalciferol (vitamin D3) 125 125 mcg PO DAILY 07/02/24 07/02/24 mcg (5,000 unit) tablet (Vitamin D3) folic acid 1 mg tablet 1 mg PO DAILY 07/02/24 07/02/24 vitamin B12 1,000 mcg-folic acid 1,000 medardo sublingual 07/02/24 400 mcg sublingual lozenge zinc 50 mg capsule 50 mg PO DAILY 07/02/24 07/02/24 Previous Rx's Medication Instructions Recorded pantoprazole 40 mg tablet,delayed 40 mg PO BID #60 tabs 05/15/24 release metoprolol succinate 25 mg 25 mg PO DAILY #30 tabs 07/02/24 tablet,extended release 24 hr (Toprol XL) Results & Data (ED) Vital Signs Vital Signs - 24 hr 07/04/24 11:14 07/04/24 11:17 07/04/24 11:17 Temperature 36.8 C 36.9 C Temperature Source Temporal Artery Scan Oral Pulse Rate 84 Pulse Rate [Apical] 70 Pulse Rate from SpO2 Sensor Pulse Rhythm Pulse Rhythm [Apical] Regular Pulse Strength [Apical] Normal Respiratory Rate 18 20 Respiratory Effort / Characteristics Non-Labored Spontaneous Non-Labored Spontaneous Respiratory Depth Normal Normal Respiratory Pattern Regular Regular Blood Pressure 136/74 Blood Pressure [Right Arm] 117/71 Blood Pressure Mean 94 Blood Pressure Mean [Right Arm] 86 Blood Pressure Position [Right Arm] Semi-fowlers Pulse Oximetry 97 96 98 Oxygen Delivery Method Room Air Room Air Room Air Sepsis Recent Fever Within 48 Hours No Sepsis New/Unexplained Change in Mental Status N/A Sepsis Action Taken by Nursing No Action Required 07/04/24 11:17 07/04/24 12:30 07/04/24 12:30 Temperature Temperature Source Pulse Rate 70 70 Pulse Rate [Apical] Pulse Rate from SpO2 Sensor Pulse Rhythm Regular Pulse Rhythm [Apical] Pulse Strength [Apical] Respiratory Rate 20 Respiratory Effort / Characteristics Respiratory Depth Respiratory Pattern Blood Pressure 117/71 Blood Pressure [Right Arm] Blood Pressure Mean 91 Blood Pressure Mean [Right Arm] Blood Pressure Position [Right Arm] Pulse Oximetry 96 Oxygen Delivery Method Room Air Sepsis Recent Fever Within 48 Hours Sepsis New/Unexplained Change in Mental Status Sepsis Action Taken by Nursing 07/04/24 12:30 07/04/24 12:36 07/04/24 13:01 Temperature Temperature Source Pulse Rate 70 Pulse Rate [Apical] Pulse Rate from SpO2 Sensor 70 Pulse Rhythm Pulse Rhythm [Apical] Pulse Strength [Apical] Respiratory Rate 10 L Respiratory Effort / Characteristics Respiratory Depth Respiratory Pattern Blood Pressure 117/71 93/62 L Blood Pressure [Right Arm] Blood Pressure Mean 91 73 Blood Pressure Mean [Right Arm] Blood Pressure Position [Right Arm] Pulse Oximetry 93 Oxygen Delivery Method Sepsis Recent Fever Within 48 Hours Sepsis New/Unexplained Change in Mental Status Sepsis Action Taken by Nursing 07/04/24 13:06 07/04/24 13:12 07/04/24 13:24 Temperature Temperature Source Pulse Rate 70 72 72 Pulse Rate [Apical] Pulse Rate from SpO2 Sensor 71 72 73 Pulse Rhythm Pulse Rhythm [Apical] Pulse Strength [Apical] Respiratory Rate 16 16 17 Respiratory Effort / Characteristics Respiratory Depth Respiratory Pattern Blood Pressure Blood Pressure [Right Arm] Blood Pressure Mean Blood Pressure Mean [Right Arm] Blood Pressure Position [Right Arm] Pulse Oximetry 95 95 95 Oxygen Delivery Method Sepsis Recent Fever Within 48 Hours Sepsis New/Unexplained Change in Mental Status Sepsis Action Taken by Nursing 07/04/24 13:27 07/04/24 13:46 07/04/24 13:57 Temperature Temperature Source Pulse Rate 72 77 Pulse Rate [Apical] Pulse Rate from SpO2 Sensor 71 70 Pulse Rhythm Pulse Rhythm [Apical] Pulse Strength [Apical] Respiratory Rate 15 19 Respiratory Effort / Characteristics Respiratory Depth Respiratory Pattern Blood Pressure 111/67 Blood Pressure [Right Arm] Blood Pressure Mean 91 Blood Pressure Mean [Right Arm] Blood Pressure Position [Right Arm] Pulse Oximetry 95 94 Oxygen Delivery Method Sepsis Recent Fever Within 48 Hours Sepsis New/Unexplained Change in Mental Status Sepsis Action Taken by Nursing 07/04/24 14:15 Temperature Temperature Source Pulse Rate 72 Pulse Rate [Apical] Pulse Rate from SpO2 Sensor 73 Pulse Rhythm Pulse Rhythm [Apical] Pulse Strength [Apical] Respiratory Rate 19 Respiratory Effort / Characteristics Respiratory Depth Respiratory Pattern Blood Pressure Blood Pressure [Right Arm] Blood Pressure Mean Blood Pressure Mean [Right Arm] Blood Pressure Position [Right Arm] Pulse Oximetry 94 Oxygen Delivery Method Sepsis Recent Fever Within 48 Hours Sepsis New/Unexplained Change in Mental Status Sepsis Action Taken by Nursing Laboratory Data 07/04/24 11:21 07/04/24 11:21 Lab Results 07/04/24 Range/Units 11:21 WBC 9.13 (4.8-10.8) K/ul RBC 3.51 L (4.70-6.10) M/uL Hgb 8.3 L (14.0-18.0) g/dl Hct 28.1 L (42.0-52.0) % MCV 80.1 (80.0-100.0) fL MCH 23.6 L (25.0-34.0) pg MCHC 29.5 L (32.0-36.0) g/dL RDW Std Deviation 47.1 H (36.4-46.3) fL RDW Coeff of Freddie 16.5 H (11.5-14.5) % Plt Count 212 (130-400) K/uL MPV 11.2 (9.4-12.4) fL Immature Gran % (Auto) 0.3 % Neut % (Auto) 81.6 % Lymph % (Auto) 8.7 % [place] % (Auto) 7.1 % Eos % (Auto) 1.6 % Baso % (Auto) 0.7 % Neut # (Auto) 7.45 H (1.40-6.50) K/uL Lymph # (Auto) 0.79 L (1.20-3.40) K/uL [place] # (Auto) 0.65 H (0.11-0.59) K/uL Eos # (Auto) 0.15 (0.00-0.50) K/uL Baso # (Auto) 0.06 (0.00-0.20) K/uL Immature Gran # (Auto) 0.03 (0.01-0.20) K/uL PT 11.2 (9.0-12.0) Seconds INR 1.0 (0.9-1.1) APTT 25 (21-31) Seconds PTT Ratio 0.9 Sodium 138 (136-145) mmol/L Potassium 4.4 (3.5-5.1) mmol/L Chloride 105 (98-107) mmol/L Carbon Dioxide 26 (21-32) mmol/L Anion Gap 7 (3-11) BUN 17 (6-23) mg/dl Creatinine 0.77 (0.6-1.4) mg/dl Est Cr Clr Drug Dosing 104.4 ml/min eGFR 95.72 BUN/Creatinine Ratio 22.1 H (10-20) Glucose 137 H (70-99(Fasting)) mg/dl Calcium 10.0 (8.6-10.3) mg/dl Magnesium 2.0 (1.7-2.4) mg/dl Total Bilirubin 0.8 (0.2-1.0) mg/dl AST 13 (13-39) U/L ALT 9 (7-52) U/L Alkaline Phosphatase 78 (34-104) U/L Troponin I High Sens 26.0 H (0-20) pg/ml Total Protein 7.2 (6.0-8.3) gm/dl Albumin 4.2 (3.4-5.0) gm/dl Globulin 3.0 (2.5-4.0) gm/dl Albumin/Globulin Ratio 1.4 (0.9-2) Administered Medications Magnesium Sulfate/Dextrose (Magnesium Sulfate / D5w) 1 gm in 100 mls @ 50 mls/hr IV Q2H DANYEL Stop: 07/04/24 18:29 Last Admin: 07/04/24 14:44 Dose: 50 mls/hr Documented By: RL Discontinued Medications Fentanyl Citrate (Fentanyl Citrate Pf 100 Mcg/2 Ml Vial) 50 mcg IV NOW STA Stop: 07/04/24 11:55 Last Admin: 07/04/24 11:57 Dose: 50 mcg Documented By: RL Imaging Data Radiologist's Impression: Chest X-Ray 07/04/24 11:17 XR chest 1V portable CLINICAL HISTORY: Chest pain, nonspecific COMPARISON STUDY: Chest radiograph July 02, 2024. FINDINGS: Left subclavian pacer and prosthetic aortic valve are place. Moderate cardiomegaly is again noted. There is no evidence for pulmonary edema. There is no consolidation. No pneumothorax or pleural effusion. IMPRESSION: No acute cardiopulmonary findings. No change in appearance of the chest. ACT 112: Negative or not required by law. Electronically signed by: Issa Pereira M.D. 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, DOC REF ED Provider: Kelli Stover Discharge Problem: Syncope and collapse, Sustained ventricular fibrillation Forms Stand Alone Forms: My [facility] Prescriptions Prescriptions: No Action pantoprazole 40 mg tablet,delayed release (DR/EC) 40 mg PO BID Qty: 60 2RF multivitamin Tablet 1 tab PO QAM metformin 1,000 mg Tablet 1,000 mg PO BID dutasteride 0.5 mg Capsule 0.5 mg PO QAM rosuvastatin 40 mg Tablet 40 mg PO HS glimepiride 2 mg Tablet 2 mg PO QAM tamsulosin 0.4 mg Capsule 0.4 mg PO HS timolol maleate 0.25 % drops 2 drp OPB DAILY Tylenol Ex Str Rapid Release 1,000 mg PO DIRECTED PRN (Reason: Pain) ascorbic acid (vitamin C) [Vitamin C] 1,000 mg Tablet 1 g PO Q6H aspirin 81 mg Tablet,Chewable 81 mg PO DAILY folic acid 1 mg Tablet 1 mg PO DAILY zinc 50 mg Capsule 50 mg PO DAILY cholecalciferol (vitamin D3) [Vitamin D3] 125 mcg (5,000 unit) Tablet 125 mcg PO DAILY vitamin X44-udpdg acid 1,000-400 mcg Lozenge 1,000 medardo SUBLINGUAL metoprolol succinate [Toprol XL] 25 mg tablet extended release 24 hr 25 mg PO DAILY Qty: 30 11RF Referrals Referrals: Declan Dejesus MD [Primary Care Provider] -
--- NOTE | 2024-07-04 14:40 | Cardiology Consultation ---
Date of Consultation July 04, 2024 Assessment & Plan (1) Syncope and collapse: (2) Ventricular tachycardia: (3) S/P TAVR (transcatheter aortic valve replacement): (4) Hypomagnesemia: (5) Chronic anemia: Plan 69-year-old male with complex recent cardiac history noted above including TAVR and pacemaker implantation presents to the ER with syncope secondary to sustained ventricular tachycardia. Echocardiogram demonstrates preserved LV systolic function, normal TAVR valve function, no significant pericardial effusion. Recommend ICD implantation for secondary prevention of ventricular tachycardia. Titrate metoprolol to 25 mg twice daily. Supplement magnesium as indicated. Maintain serum potassium greater than 4.0. Discuss potential addition of antiarrhythmic therapy (amiodarone) with electrophysiology. Thank you for allowing me to participate in care of your patient. Good Crenshaw DO, [facility] History of Present Illness Reason for Consultation: Syncope, VT Requesting Physician: Dr. Stover, ER physician Attending Physician: Dr. Kelli Stover History of Present Illness 69-year-old male status post recent TAVR implantation 07/10, and dual-chamber permanent pacemaker implantation 06/01/2024 presents emergency department with syncope. Patient was sitting on his couch last evening when he became acutely lightheaded and lost consciousness. Event was unwitnessed. No tongue biting, or incontinence. Contacted his daughter in the a.m. who brought him to the ER for further evaluation and treatment. Pacemaker interrogation reveal sustained ventricular tachycardia at the time of syncopal event. He remains sinus rhythm with first-degree AV block and atrial paced rhythm on telemetry since admission. Preliminary review of bedside echocardiogram demonstrates preserved LV systolic function. Normal TAVR function as well. No pericardial effusion. Currently, patient resting comfortably. Denies any recent chest pain or unusual shortness of breath. Recovering well from recent TAVR and pacemaker implantation. No orthopnea, PND, or lower extremity edema. Pre-TAVR cardiac catheterization revealed essentially normal coronary arteries 05/29/2024. Allergies Allergy/AdvReac Type Severity Reaction Status Date / Time nickel Allergy Unknown RASH Verified 07/02/24 09:42 tetanus toxoid, adsorbed Allergy Unknown ITCHING Verified 07/02/24 09:42 empagliflozin AdvReac Unknown URINARY Verified 07/02/24 09:42 [From Jardiance] TRACT INFECTION lisinopril AdvReac Unknown Cough Verified 07/02/24 09:42 polyethylene glycol 3350 AdvReac Unknown Verified 07/02/24 09:42 [From Miralax] Home Medications Medication Instructions Recorded Confirmed Type dutasteride 0.5 mg capsule 0.5 mg PO QAM 08/11/18 07/02/24 History metformin 1,000 mg tablet 1,000 mg PO BID 08/11/18 07/02/24 History multivitamin 1 tab PO QAM 08/11/18 07/02/24 History rosuvastatin 40 mg tablet 40 mg PO HS 08/11/18 07/02/24 History glimepiride 2 mg tablet 2 mg PO QAM 08/22/20 07/02/24 History tamsulosin 0.4 mg capsule 0.4 mg PO HS 10/01/20 07/02/24 History timolol maleate 0.25 % eye drops 2 drp OPB DAILY 11/02/23 07/02/24 History Tylenol Ex Str Rapid Release 1,000 mg PO DIRECTED PRN Pain 04/06/24 07/02/24 History pantoprazole 40 mg tablet,delayed 40 mg PO BID #60 tabs 05/15/24 07/02/24 Rx release ascorbic acid (vitamin C) 1,000 mg 1 g PO Q6H 07/02/24 07/02/24 History tablet (Vitamin C) aspirin 81 mg chewable tablet 81 mg PO DAILY 07/02/24 07/02/24 History cholecalciferol (vitamin D3) 125 125 mcg PO DAILY 07/02/24 07/02/24 History mcg (5,000 unit) tablet (Vitamin D3) folic acid 1 mg tablet 1 mg PO DAILY 07/02/24 07/02/24 History metoprolol succinate 25 mg 25 mg PO DAILY #30 tabs 07/02/24 Rx tablet,extended release 24 hr (Toprol XL) vitamin B12 1,000 mcg-folic acid 1,000 medardo sublingual 07/02/24 History 400 mcg sublingual lozenge zinc 50 mg capsule 50 mg PO DAILY 07/02/24 07/02/24 History Patient History Medical History Aortic stenosis, severe BPH (benign prostatic hyperplasia) REMBERTO on CPAP Obesity Dyslipidemia HTN (hypertension) Diabetes mellitus, type II History of colon polyps BENIGN Scoliosis Osteoarthritis BPH (benign prostatic hyperplasia) GERD (gastroesophageal reflux disease) Not an issue recently Diabetes mellitus, type 2 Anemia Glaucoma RESOLVED S/P SURGICAL INTERVENTION Hyperlipidemia Sleep apnea CPAP, COMPLIANT. Surgical History History of tonsillectomy Hx of repair of rotator cuff "bilateral" History of total right knee replacement (TKR) History of cardiac cath ABNORMAL STRESS TEST IN 2017 - NO STENTS. 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) History of repair of rotator cuff RT/LEFT History of esophagogastroduodenoscopy (EGD) History of colonoscopy History of tooth extraction History of tonsillectomy History of adenoidectomy History of myringotomy Family History Grandmother (Maternal) Family history of diabetes mellitus Mother Family history of esophageal cancer Sister Family history of diabetes mellitus Social History Smoking Status: Never smoker Tobacco Type: Cigarettes Second Hand Exposure: No; Do You Dip or Chew Tobacco: No; Hx Alcohol Use: Yes Alcohol type: beer Hx Substance Use: No Preferred Language: [place] Communication Ability: Effective Physician Pediatrician Required: No Beliefs That Will Affect Care: None marital status: Current Living Situation: Alone Current Living Situation Comment: currently in rehab facility Feels Safe at Home: Yes Assistive Devices: Glasses Review of Systems Review of Systems: All systems reviewed & are unremarkable except as noted in Subjective Physical Exam Constitutional: well nourished; no acute distress and not ill appearing Respiratory: no respiratory distress, no labored breathing and no retractions Auscultation: lungs clear to auscultation bilaterally; no crackles, no rales, no rhonchi and no wheezes Cardiovascular: Rate/Rhythm: + abnormal rhythm (Irregular rhythm) Heart Sounds: normal S1, normal S2 and + murmur (1/6 systolic ejection murmur heard best at the base) Vessels: radial pulses present; no JVD Extremities: no edema Gastrointestinal (Abdomen): Inspection/Auscultation: abdomen normal to insp ection; abdomen not distended Percussion/Palpation: abdomen soft; abdomen nontender, no guarding and abdomen not rigid Neurologic: CN's II-XI intact bilaterally and moves all extremities; no focal motor deficits Results & Data Vital Signs (Past 12 Hours) Vital Signs Temp Pulse Pulse Resp BP BP Pulse Ox 07/04/24 14:15 72 19 94 07/04/24 13:57 77 19 94 07/04/24 13:46 111/67 07/04/24 13:27 72 15 95 07/04/24 13:24 72 17 95 07/04/24 13:12 72 16 95 07/04/24 13:06 70 16 95 07/04/24 13:01 93/62 L 07/04/24 12:36 70 10 L 93 07/04/24 12:30 117/71 07/04/24 12:30 117/71 07/04/24 12:30 70 07/04/24 11:17 70 20 96 07/04/24 11:17 36.9 C 70 20 117/71 98 07/04/24 11:17 96 07/04/24 11:14 36.8 C 84 18 136/74 97 O2 Del Method 07/04/24 14:15 07/04/24 13:57 07/04/24 13:46 07/04/24 13:27 07/04/24 13:24 07/04/24 13:12 07/04/24 13:06 07/04/24 13:01 07/04/24 12:36 07/04/24 12:30 07/04/24 12:30 07/04/24 12:30 07/04/24 11:17 Room Air 07/04/24 11:17 Room Air 07/04/24 11:17 Room Air 07/04/24 11:14 Room Air Laboratory Results Cardiac Enzymes 07/04/24 Range/Units 11:21 AST 13 (13-39) U/L Troponin I High Sens 26.0 H (0-20) pg/ml Coagulation 07/04/24 Range/Units 11:21 PT 11.2 (9.0-12.0) Seconds APTT 25 (21-31) Seconds CBC 07/04/24 Range/Units 11:21 WBC 9.13 (4.8-10.8) K/ul RBC 3.51 L (4.70-6.10) M/uL Hgb 8.3 L (14.0-18.0) g/dl Hct 28.1 L (42.0-52.0) % Plt Count 212 (130-400) K/uL Neut # (Auto) 7.45 H (1.40-6.50) K/uL Lymph # (Auto) 0.79 L (1.20-3.40) K/uL Mills # (Auto) 0.65 H (0.11-0.59) K/uL Eos # (Auto) 0.15 (0.00-0.50) K/uL Baso # (Auto) 0.06 (0.00-0.20) K/uL Comprehensive Metabolic Panel 07/04/24 Range/Units 11:21 Sodium 138 (136-145) mmol/L Potassium 4.4 (3.5-5.1) mmol/L Chloride 105 (98-107) mmol/L Carbon Dioxide 26 (21-32) mmol/L BUN 17 (6-23) mg/dl Creatinine 0.77 (0.6-1.4) mg/dl Glucose 137 H (70-99(Fasting)) mg/dl Calcium 10.0 (8.6-10.3) mg/dl AST 13 (13-39) U/L ALT 9 (7-52) U/L Alkaline Phosphatase 78 (34-104) U/L Total Protein 7.2 (6.0-8.3) gm/dl Albumin 4.2 (3.4-5.0) gm/dl Intake and Output 07/03/24 07/04/24 07/04/24 22:59 06:59 14:59 Other: Weight 107.1 kg Weight Measurement Method Chair Scale Patient Weight 07/05/24 06:59 Weight 107.1 kg
[2024-07-04] MEDS: MAGNESIUM SULFATE / D5W 1 GM/100 ML BAG IV SCH (14:44)
--- NOTE | 2024-07-04 14:56 | History & Physical Report ---
<Statement entered by Keo Martinez, DO - 07/04/24 18:41> I have seen and examined the patient and have discussed the case with the advance practice provider. I have reviewed the advanced practitioner's documentation, and I agree with, and take responsibility for that plan of care. Patient on his way to the [facility] [employer] [facility] for AICD. Denies any chest pain or shortness of breath at this time. Further plan of care as outlined below I spent a total of 14 minutes coordinating, documenting, and providing care for this patient excluding time spent by another provider/QHP. Date of Service July 04, 2024 Assessment & Plan (1) Syncope and collapse: (2) Ventricular tachycardia: (3) Pacemaker: Plan: Patient is 69 year old male with PMH HTN, dyslipidemia, DM II, chronic iron deficiency anemia, s/p TAVR 06/19/24, AV block s/p pacemaker on 07/02/24, CPAP, depression, BPH presented to ER with c/o syncope last night. In ER vitals stable. Troponin: 26-->24. K: 4.4. Magnesium: 2.0 CXR: no acute infiltrate, no significant overload Pacemaker in interrogated showing episode sustained ventricular tachycardia. Today Echo: EF: 60-65, normal TAVR valve function, no significant pericardial effusion. Cardiology consult. Dr Crenshaw saw and recommend ICD implantation and ordered metoprolol to 25 mg twice daily, and IV magnesium Consult cardiology EP. Dr Nation saw pt in ER and is planning to take for ICD now Will keep NPO for now CBC, BMP in am EKG in am (4) Aortic stenosis: (5) S/P TAVR (transcatheter aortic valve replacement): Plan: S/P TAVR on 06/19/24 (6) HTN (hypertension): Plan: BP stable Cardiology had changed metoprolol succinate 25mg to tartrate 25mg BID Monitor (7) Dyslipidemia: Plan: Continue rosuvastatin (8) Chronic anemia: Plan: Chronic iron deficiency anemia Hgb: 8.3. 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 Supplemental iron stopped as pt reports causing GI upset. (9) Diabetes mellitus, type II: Plan: A1c: 4.9 on 04/05/24 Hold home metformin, glimepiride Novolog sliding scale per protocol (10) BPH (benign prostatic hyperplasia): Plan: Continue home tamsulosin, dutasteride (11) REMBERTO on CPAP: Plan: CPAP HS DVT Prophylaxis SCDs for now Admit PCU Full Code as per discussion with pt Follows with Dr Dejesus for routine care Pt was seen and care coordinated with Dr Martinez. See addendum I spent a total of 63 minutes reviewing notes, outpatient records, labs, medication, coordinating, documenting and providing care for this patient excluding time spent in the performance of separately billed services and excluding time spent by another provider/QHP. History of Present Illness Chief Complaint: Syncope Primary Care Provider: Declan Dejesus MD Patient is 69 year old male with PMH HTN, dyslipidemia, DM II, chronic iron deficiency anemia, s/p TAVR 06/19/24, AV block s/p pacemaker on 07/02/24, CPAP, depression, BPH presented to ER with c/o syncope last night. Patient states was sitting in his chair when he had sudden dizziness and states he passed out. Unsure how long episode was. He was at home by himself. Denies palpitation, N/V, THAKKAR or chest pain. States he has been having pain at site of pacemaker since it was inserted. Hasn't noticed any discharge from area. Reports still has been feeling poorly with continued exertional SOB. Per out patient chart review saw Dr Nation on 06/29/24 and Lasix was started. Patient states last took yesterday and he feels his BLE edema has improved and didn't take any more today. Had 3 cups coffee this morning, nothing else to eat. Denies fever/chills, diaphoresis, N/V/D/C, THAKKAR, neck pain, cough, sore throat, rhinorrhea, abdominal pain, paresthesias, rashes, dysuria, hematuria. Allergies Allergy/AdvReac Type Severity Reaction Status Date / Time nickel Allergy Unknown RASH Verified 07/04/24 15:10 tetanus toxoid, adsorbed Allergy Unknown ITCHING Verified 07/04/24 15:10 empagliflozin AdvReac Unknown URINARY Verified 07/04/24 15:10 [From Jardiance] TRACT INFECTION lisinopril AdvReac Unknown Cough Verified 07/04/24 15:10 polyethylene glycol 3350 AdvReac Unknown Verified 07/04/24 15:10 [From Miralax] Home Medications Medication Instructions Recorded Confirmed Type dutasteride 0.5 mg capsule 0.5 mg PO QAM 08/11/18 07/04/24 History metformin 1,000 mg tablet 1,000 mg PO BID 08/11/18 07/04/24 History multivitamin 1 tab PO QAM 08/11/18 07/04/24 History rosuvastatin 40 mg tablet 40 mg PO HS 08/11/18 07/04/24 History glimepiride 2 mg tablet 2 mg PO QAM 08/22/20 07/04/24 History tamsulosin 0.4 mg capsule 0.4 mg PO HS 10/01/20 07/04/24 History timolol maleate 0.25 % eye drops 2 drp OPB DAILY 11/02/23 07/04/24 History acetaminophen 500 mg tablet 1,000 mg PO DIRECTED PRN Pain 04/06/24 07/04/24 History ##0 ascorbic acid (vitamin C) 1,000 mg 1 g PO BID 07/02/24 07/04/24 History tablet (Vitamin C) aspirin 81 mg chewable tablet 81 mg PO DAILY 07/02/24 07/04/24 History cholecalciferol (vitamin D3) 125 125 mcg PO DAILY 07/02/24 07/04/24 History mcg (5,000 unit) tablet (Vitamin D3) folic acid 1 mg tablet 1 mg PO DAILY 07/02/24 07/04/24 History metoprolol succinate 25 mg 25 mg PO DAILY #30 tabs 07/02/24 07/04/24 Rx tablet,extended release 24 hr (Toprol XL) cyanocobalamin (vitamin B-12) 1,000 mcg PO DAILY 07/04/24 07/04/24 History 1,000 mcg tablet (Vitamin B-12) furosemide 20 mg tablet 20 mg PO DAILY PRN Weight Gain 07/04/24 07/04/24 History latanoprost 0.005 % eye drops 1 drp ophthalmic (eye) HS 07/04/24 07/04/24 History pantoprazole 40 mg tablet,delayed 40 mg PO DAILY 07/04/24 07/04/24 History release Past Med/Surg History Problem List (Updated 07/04/24 @ 15:54 by Amanda Tanner PA-C) Pacemaker Sustained ventricular fibrillation (Acute) Syncope and collapse (Acute) Chronic anemia Hypomagnesemia S/P TAVR (transcatheter aortic valve replacement) Ventricular tachycardia Syncope and collapse Aortic stenosis (Acute) Generalized weakness (Acute) Dizziness (Acute) Symptomatic severe aortic stenosis with normal ejection fraction Symptomatic anemia (Acute) Acute GI bleeding (Acute) Occult blood in stools Acute on chronic anemia Osteoarthritis of right knee Anemia (Acute) Medical History Aortic stenosis, severe BPH (benign prostatic hyperplasia) REMBERTO on CPAP Obesity Dyslipidemia HTN (hypertension) Diabetes mellitus, type II History of colon polyps BENIGN Scoliosis Osteoarthritis BPH (benign prostatic hyperplasia) GERD (gastroesophageal reflux disease) Not an issue recently Diabetes mellitus, type 2 Anemia Glaucoma RESOLVED S/P SURGICAL INTERVENTION Hyperlipidemia Sleep apnea CPAP, COMPLIANT. Surgical History History of tonsillectomy Hx of repair of rotator cuff "bilateral" History of total right knee replacement (TKR) History of cardiac cath ABNORMAL STRESS TEST IN 2017 - NO STENTS. 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) History of repair of rotator cuff RT/LEFT History of esophagogastroduodenoscopy (EGD) History of colonoscopy History of tooth extraction History of tonsillectomy History of adenoidectomy History of myringotomy Family History Grandmother (Maternal) Family history of diabetes mellitus Mother Family history of esophageal cancer Sister Family history of diabetes mellitus Social History Smoking Status: Never smoker Tobacco Type: Cigarettes Second Hand Exposure: No; Do You Dip or Chew Tobacco: No; Hx Alcohol Use: Yes Alcohol type: beer Hx Substance Use: No Preferred Language: Hebrew Communication Ability: Effective Center Director Required: No Beliefs That Will Affect Care: None marital status: Current Living Situation: Alone Current Living Situation Comment: currently in rehab facility Feels Safe at Home: Yes Assistive Devices: Glasses Review of Systems Review of Systems: All systems reviewed & are unremarkable except as noted in HPI & below Physical Exam Physical Exam: General: no acute distress, obese elderly male Head: normocephalic, atraumatic Eyes: conjunctiva non-injected, anicteric ENT: normal inspection external ears, nose, mucous membranes moist Neck: supple, trachea midline, non-tender Lungs: clear, no respiratory distress, no wheezing/rhonchi/rales CV: RRR, +murmur, trace pretibial edema Abd: protuberant, normal BS, soft, non-tender Ext: no cyanosis, no calf tenderness Neuro: A&O x 3, no focal deficits noted, normal affect Skin: warm, dry Results & Data Results & Data Vital Signs (Past 12 Hours) Vital Signs Temp Pulse Pulse Resp BP BP Pulse Ox 07/04/24 14:15 72 19 94 07/04/24 13:57 77 19 94 07/04/24 13:46 111/67 07/04/24 13:27 72 15 95 07/04/24 13:24 72 17 95 07/04/24 13:12 72 16 95 07/04/24 13:06 70 16 95 07/04/24 13:01 93/62 L 07/04/24 12:36 70 10 L 93 07/04/24 12:30 117/71 07/04/24 12:30 117/71 07/04/24 12:30 70 07/04/24 11:17 70 20 96 07/04/24 11:17 36.9 C 70 20 117/71 98 07/04/24 11:17 96 07/04/24 11:14 36.8 C 84 18 136/74 97 O2 Del Method 07/04/24 14:15 07/04/24 13:57 07/04/24 13:46 07/04/24 13:27 07/04/24 13:24 07/04/24 13:12 07/04/24 13:06 07/04/24 13:01 07/04/24 12:36 07/04/24 12:30 07/04/24 12:30 07/04/24 12:30 07/04/24 11:17 Room Air 07/04/24 11:17 Room Air 07/04/24 11:17 Room Air 07/04/24 11:14 Room Air Laboratory Results Short CBC 07/04/24 Range/Units 11:21 WBC 9.13 (4.8-10.8) K/ul Hgb 8.3 L (14.0-18.0) g/dl Hct 28.1 L (42.0-52.0) % Plt Count 212 (130-400) K/uL BMP 07/04/24 11:21 Sodium 138 Potassium 4.4 Chloride 105 Carbon Dioxide 26 BUN 17 Creatinine 0.77 Glucose 137 H Calcium 10.0 Liver Function 07/04/24 Range/Units 11:21 Total Bilirubin 0.8 (0.2-1.0) mg/dl AST 13 (13-39) U/L ALT 9 (7-52) U/L Alkaline Phosphatase 78 (34-104) U/L Albumin 4.2 (3.4-5.0) gm/dl Diagnostic Findings Chest X-Ray 07/04/24 11:17 XR chest 1V portable CLINICAL HISTORY: Chest pain, nonspecific COMPARISON STUDY: Chest radiograph July 02, 2024. FINDINGS: Left subclavian pacer and prosthetic aortic valve are place. Moderate cardiomegaly is again noted. There is no evidence for pulmonary edema. There is no consolidation. No pneumothorax or pleural effusion. IMPRESSION: No acute cardiopulmonary findings. No change in appearance of the chest. ACT 112: Negative or not required by law. Electronically signed by: Issa Pereira M.D. 07/04/2024 12:10 PM ECG Additional Comments: sinus rhythm, rate 77, 1st degree AV block, LBBB (4) Aortic stenosis Cardiac valve disease etiology: etiology unspecified Qualified Code(s): I35.0 - Nonrheumatic aortic (valve) stenosis
--- NOTE | 2024-07-04 16:35 | History & Physical Bridge Note ---
Date of Service July 04, 2024 History & Physical Bridge Note I have examined the patient, reviewed the History & Physical and in the interval since the performance of the History & Physical I have noted the following changes of clinical significance: Pt with syncope due to sustained VT as found on pacemaker interrogation; he is recommended an upgrade to a BiV ICD due to the sustained VT. I discussed the procedure and potential risks with the patient and his daughter (who was on the phone); they expressed an understanding and consents signed. A formal shared decision making process was performed with Rafael Cantu today utilizing the [employer] ICD evidence based tool from [employer] [place] [employer]. The discussion that followed was collaborative: detailing the information, risks, and benefits provided by the tool. We also discussed the values and preferences of Rafael Cantu to build a consensus regarding the preferred treatment plan. A decision was reached to proceed with upgrade to a BiV ICD due to sustained VT
--- NOTE | 2024-07-04 16:38 | Electrocardiogram Report ---
Test Reason : Blood Pressure : */* mmHG Vent. Rate : 71 BPM Atrial Rate : 71 BPM P-R Int : * ms QRS Dur : 126 ms QT Int : 412 ms P-R-T Axes : * -47 103 degrees QTcB Int : 447 ms Ventricular-paced rhythm with frequent atrial-paced complexes in a pattern of bigeminy Undersensing of some P-waves (likely in the blanking period) Abnormal ECG When compared with ECG of 04-Jul-2024 11:21, Electronic ventricular pacemaker has replaced Sinus rhythm Confirmed by Baron Pagan ([id number]) on 07/04/2024 4:38:14 PM Referred By: Divya Ntaion Confirmed By: Baron Pagan
--- OUTSIDE RECORDS SUMMARY | 2024-07-04 16:53 | External Medical Summary | Summary of Care ---
Author Name Unknown Organization [facility] Address [address] [facility] [place] [address] Phone [phone] Care Team Providers Care Manager Intensive Care Name Role Phone Declan Dejesus MD Primary Care Provider [phone] Reason for Visit * Reason Onset Date Comments Patient Instructions 06/29/2024 Encounter Details Date Type Department Care Team (Late st Contact Info) Description 06/29/2024 Telephone Cardiology, [place] [address] [place] [id number] Divya Nation Yanna, [address] [facility] [place] [address] Patient Instructions Allergies Active Allergy Reactions Criticality Noted Date Comments Empagliflozin 10/06/2020 Fungal infection, urinary frequency Lisinopril Cough Polyethylene Glycol Other (Please comment) Low 04/26/2024 Severe gas Nickel Rash 09/13/2011 Tetanus Toxoids Rash 09/13/2011 documented as of this encounter (statuses as of 07/02/2024) Medications MULTI VITAMIN MENS PO TABS one by mouth daily Active Dutasteride 0.5 MG Oral Capsule (Avodart)Indicatio ns:BPH with obstruction/lower urinary tract symptoms Take 1 Capsule by mouth in the morning. 90 Capsule 3 05/10/2024 10:16 AM EST Active Glimepiride 2 MG Oral Tablet (Amaryl) TAKE ONE TABLET BY MOUTH DAILY WITH BREAKFAST 90 Tablet 3 05/19/2024 3:36 PM EST 4 Active Latanoprost 0.005 % Ophthalmic Solution (Xalatan) Instill 1 drop into both eyes at bedtime 10 mL 3 04/19/2024 9:28 AM EST 4 Active Timolol Maleate 0.25 % Ophthalmic Solution (Timoptic) Instill 2 Drops into both eyes in the morning. 15 mL 3 05/15/2024 11:26 AM EST 4 Active Acetaminophen 500 MG Oral Capsule Take 2 Capsules by mouth every 4 hours as needed for Pain, Mild or Fever >38C(100.5F). Active Vitamin C 1000 MG Oral Tablet Take 1 Tablet by mouth 2 times a day. Active Zinc 50 MG Oral Tablet Take 1 Tablet by mouth in the morning. Active Vitamin D3 125 MCG (5000 UT) Oral Tablet Disintegrating Take 1 Tablet by mouth daily. Active Rosuvastatin Calcium 40 MG Oral Tablet (Crestor)Indicatio ns:High triglycerides take one tablet by mouth once a day 90 Tablet 3 05/03/2024 10:09 AM EST 4 Active metFORMIN HCl 1000 MG Oral Tablet (Glucophage)Indica tions:Type 2 diabetes mellitus with hemoglobin A1c goal of less than 7.0% (HCC) Take 1 Tablet by mouth in the morning and 1 Tablet before bedtime with meals 180 Tablet 3 05/03/2024 10:09 AM EST 4 Active CPAP every night at bedtime. Active Tamsulosin HCl 0.4 MG Oral Capsule (Flomax) Take 1 Capsule by mouth at bedtime. 90 Capsule 1 06/14/2024 6:43 PM EST 5 Active Pantoprazole Sodium 40 MG Oral Tablet Delayed Release (Protonix) Take 1 Tablet by mouth in the morning. 30 Tablet 1 5 Active Aspirin 81 MG Oral Tablet Chewable Chew & swallow 1 Tablet by mouth every morning. 30 Tablet 11 5 Active Vitamin B-12 1000 MCG Oral Tablet (Cyanocobalamin)In dications:Iron deficiency anemia due to chronic blood loss Take 1 Tablet by mouth in the morning. 90 Tablet 3 06/29/2024 3:45 PM EST 5 Active Folic Acid 1 MG Oral TabletIndications: Iron deficiency anemia due to chronic blood loss Take 1 Tablet by mouth in the morning. 90 Tablet 3 06/29/2024 3:45 PM EST Active Furosemide 20 MG Oral Tablet (Lasix) Take 1 Tablet by mouth daily as needed (leg swelling and weight gain). 30 Tablet 3 5 Active documented as of this encounter (statuses as of 07/02/2024) Active Problems Problem Noted Date Diagnosed Date Glaucoma 06/26/2024 Pulmonary emphysema 06/26/2024 S/P TAVR (transcatheter aortic valve replacement ) 06/20/2024 History of arteriovenous malformation (AVM) 05/17 Edema of right lower leg 06/07/2024 Atherosclerosis of [place] ronary artery without angina pectoris 05/11/2024 Severe aortic stenosis 05/01/2024 Symptomatic anemia 05/01/2024 Melena 05/01/2024 Primary open-angle glaucoma, bilateral, moderate stage 05/20/2023 [...] as of this encounter (statuses as of 07/02/2024) Resolved Problems Problem Noted Date Diagnosed Date Resolved Date Primary open-angle glaucoma, right eye, moderate stage 10/16/2020 08/15/2023 Overview (08/15/2023): Noted on pl as OU moderate Glaucoma 08/27/2013 06/07/2022 Overview (06/07/2022): More specific dx on pl HTN, goal below 140/80 07/03/201210/29 Overview: Per HTN Protocol documented as of this encounter (statuses as of 07/02/2024) Immunizations Name Administration Dates Next Due COVID-19 mRNA, LNP-s, No Pre serve, 2-Dose Series (Moderna) 08/19/2020,07/22/2020 COVID-19, MRNA-LNP, PF, 50 M CG/0.5 mL, 12 YRS AND ABOVE, IM (MODERNA-Spikevax) 04/04/2023 COVID-19, mRNA, LNP-s, PF, B ooster, 100mcg/0.5mg (Moderna) 04/16/2021 Covid-19 Ad26, Single Dose (Sylvia/J&J) 08/19/2020,07/22/2020 Pneumococcal Conjugate Vacci ne, 20-valent ([id number]) 05/20/2023 Pneumococcal Polysaccharide PPV23 (Pneumovax) 03/11/2009,10/11/2008(Deferred: Patient [...] Cigarettes 2 30 0 12/03/1982 - 12/03/2012 Passive Smoke Exposure: Past Smokeless Tobacco: Never Alcohol Use Standard Drinks/Week [...] have concerns for your saf ety? No 05/01/2024 Do you have concerns for you r family's safety? (Household - for ages 0-17 years) Not on file 05/01/2024 Utilities Answer Date Recorded Do you have trouble paying y our heating, water, or electric bill? No 05/01/2024 Is your family able to pay t he heat, water, or electric bill? (Household - for ages 0-17 years) Not on file 05/01/2024 Does your family have access to good internet? (Household - for ages 0-17 years) Not on file 05/01/2024 Employment Status Answer Date Recorded Are you [...] 04/10/2024 Transportation Needs Answer Date Record ed Do you have trouble getting a ride to medical visits or work? (Adult - for ages 18 years and over) Not on file 05/01/2024 Does your family have a hard time getting a ride to doctors visits? (Household - for ages 0-17 years) Not on file 05/01/2024 Has lack of transportation k ept you from medical appointments, meetings, work, or from getting things needed for daily living? Check all that apply. No 05/01/2024 Do you (or your family) have trouble finding or paying for a ride (transportation)? (Household - for ages 0-17 years) Not on file 05/01/2024 Housing Stability Answer Date Recorded Do you currently live in a s helter or have no steady place to sleep at night? No 05/01/2024 Do you think you are at risk of becoming homeless? (Adult - for ages 18 years and over) Not on file 05/01/2024 Does your family worry about paying for your home or becoming homeless? (Household - for ages 0-17 years) Not on file 1 07/02/2023 Are you homeless or worried that you might be in the future? No 05/01/2024 Are you (or your family) alayna eless or worried that you might be in the future? (Household - for ages 0-17 years) Not on file Food Insecurity Answer Date Recorded Do you need food for this week? No 05/01/2024 Are you able to get enough f ood for your family? (Household - for ages 0-17 years) Not on file 05/01/2024 Does your family need food t his week? (Household - for ages 0-17 years) Not on file 05/01/2024 Do you always have enough fo od for your family? (Household - for ages 0-17 years) Not on file 05/01/2024 Food Insecurity Answer Date Recorded Within the past 12 months, y ou worried that your food would run out before you got the money to buy more. Never true 05/01/20 24 Within the past 12 months, t he food you bought just didn't last and you didn't have money to get more. Never true 05/01/2024 Do you need food for this week? No 05/01/2024 Sex and Gender Information Value Date Recorded Sex Assigned at Male 06/23/2023 2:00 PM EST Legal Sex Male 6:25 AM EST Gender Identity Male 06/23/2023 2:00 PM EST Sexual Orientation Straight 06/23/2023 2: 00 PM EST documented as of this encounter Functional Status * Are you deaf or do you have serious difficulty hearing? Answer Date of Assessment Author No 06/07/2024 11:53 PM EST Yeny Bowman RN * Are you blind or do you have serious difficulty seeing, even when wearing glasses? Answer Date of Assessment Author No 06/07/2024 11:53 PM Yeny Carrillo RN * Do you have serious difficulty walking or climbing stairs? (5 years old or older) Answer Date of Assessment Author Yes 06/07/2024 11:53 PM Yeny Carrillo RN * Do you have difficulty dressing or bathing? (5 years old or older) Answer Date of Assessment Author Yes 06/07/2024 11:53 PM Yeny Carrillo RN * Because of a physical, mental, or emotional condition, do you have difficulty doing errands alone such as visiting a doctors office or shopping? (15 years old or older) Answer Date of Assessment Author No 06/07/2024 11:53 PM Yeny Carrillo RN documented as of this encounter Mental Status * Because of a physical, mental, or emotional condition, do you have serious difficulty concentrating, remembering, or making decisions? (5 years old or older) Answer Entry Date Author No 06/07/2024 11:53 PM Yeny Carrillo RN documented in this encounter Miscellaneous Notes * Telephone Encounter - Brianna Pereira NRCMA - 06/29/2024 2:42 PM EST Device Instructions Procedure Date: 07/02/2024 Time: 10:30 am For: New Dual chamber Pacemaker Location: [facility] Main Entrance- Outpatient Registration, [address] [facility] [place] [address] Patient/Family member was notified via written instructions given at office visit. Nothing to eat or drink after midnight, You may have clear liquids 4 hours prior to procedure No caffeine 24 hours prior to procedure No tobacco products after midnight Arrive at [facility] at 9:30 am in the Medical Treatment Unit/Same Day Surgery Desk and check in at the registration desk. Meds to hold AM of procedure include- Lasix, Metformin, Glimepiride and any over the counter vitamins, Fish oil and/or Vit E. Meds to adjust the pm prior to the procedure include- none Pt may take all other medications regularly scheduled that morning including aspirin. Additional labs or testing needed: none Bring all of your medications with you in their original containers. Use Chlorhexidine wash the evening prior to and the morning of the procedure. Follow instructions given with the wash. You may remain at [facility] Overnight for observation. Wound check will be scheduled in [facility] Office with Clinic Nurse. Your wound is NOT PERMITTED to get wet in any way while site is covered by bandage. You are unable to shower/swim/hot tub until given permission by clinic nurse in the office. New devices education Please make sure you diet is rich in fruits, vegetables, and healthy protein to promote proper healing. Do not lift any object over 10 pounds. Do not raise your elbow on the incision side above shoulder level in a repetitive manner. This gives the device lead wires time to attach securely inside your heart. Avoid dental procedures for 6 months Call Miriam at [phone] with any questions or concerns documented in this encounter Plan of Treatment Upcoming Encounters Date Type Department Care Team (Late st Contact Info) Description 07/12/2024 10:00 AM EST Cardiac Studies Cardiology, [facility] [address] [facility] [place] [address] Edvin Bradshaw [facility] [address] [facility] [place] [address] 07/17/2024 7:40 AM EST Office Visit Family [facility] [address] [place] [phone] SeptemberDeclan MD [address] [place] [address] 07/19/2024 2:30 PM EST Cardiac Studies Cardiac Studies, [facility] [address] [place] [address] 07/24/2024 10:00 AM EDT Nurse Only Ancillary Department, Ashleigh Kamara [address] [place] [phone] Ashleigh Nurse Annual Wellness [address] [place] [address] 07/26/2024 9:00 AM EDT Laboratory Laboratory, [facility] [address] [place] [phone] [facility] [address] [place] [address] 07/26/2024 9:30 AM EDT Office Visit Cardiology, [facility] [address] [place] [address] Kareen Boyd CRNP [address] [place] [address] 07/30/2024 12:40 PM EDT Office Visit Family Practice, Ashleigh Gallegos [address] [place] [phone] SeptemberDeclan MD [address] [place] [address] 07/31/2024 10:00 AM EDT Laboratory Laboratory, Ashleigh Galleg[place] [phone] Ashleigh, Laboratory [address] [place] [address] 08/07/2024 11:30 AM EDT Office Visit Hematology/Oncology Juan Richards [place] [address] [facility] [place] [phone] Bruna Funk CRNP [address] [place] [address] Health Maintenance Due Date Last Done Comments Alpha-1 Antitrypsin 1971 Sigmoidoscopy 1998 Lung Cancer Screening 2003 Fecal Occult Blood Test 01/14/2024 01/14/20 23, 01/13/2023, 01/15/2022, Additional history exists COVID-19 Vaccine ( season) 2024 04/04/2023, 04/16/2021, 08/19/2020, Additional history exists Influenza Vaccine (FLU shot) (#1) 2024 04/04/2023, 03/11/2022, 04/16/2021, Additional history exists Adult Wellness Visit 07/19/2024 07/20/2023 Diabetic Foot Exam 07/19/2024 07/20/2023, 0 01/03/2017, 02/17/2015, Additional history exists HbA1c 10/03/2024 04/05/2024, 06/0 09/2023, 10/19/2023, Additional history exists Diabetic Eye Exam 12/12/2024 12/13/2023, , 07/13/2023, Additional history exists Albumin/Creatinine Ratio 03/26/2025 024, 01/04/2023, 07/05/2022, Additional history exists Depression Screening 04/10/2025 04/10/2024 B-12 06/08/2025 06/08/2024, 12/06/2023, 07/20/2023 O2 ASSESSMENT COMPLETED IN PAST YEAR FOR COPD 06/19/2025 06/19/2024 GFR 06/20/2025 06/20/2024, 08/2024, 06/19/2024, Additional history exists Cologuard 2026 2023, 05/16, 05/25/2023 Colonoscopy 05/02/2029 05/02/2024, 04/15, 06/29/2023, Additional history exists Colorectal Cancer Screening 05/02/2029 AAA Screening Completed 10/18/2018, 09/2018, 11/11/2014, Additional history exists Pneumococcal Vaccine: 50+ Years Completed 05/20/2023, 03/11/2009 Zoster Vaccines Completed 06/10/2023, 04/04/2023 HPV (Gardasil) Vaccine Aged Out No lo nger eligible based on patient's age to complete this topic Hepatitis B Vaccine Aged Out No longe r eligible based on patient's age to complete this topic MENINGOCOCCAL (MENACTRA/MENVEO) Aged Out No longer eligible based on patient's age to complete this topic Meningitis B Vaccine (Bexsero/Trumemba) Aged Out No longer eligible based on patient's age to complete this topic documented as of this encounter Medical Devices Implanted Type Area Label Paster Device Identifier Shelf Expiration Date Model / Serial / Lot Iol Mx60 14.0 Implanted:Qty: 1 on 10/19/2019 by Ankit Ny MD at OR [facility] Right: Eye 04/14/2020 MX60 / [id number] / [id number] Implanted:Qty: 1 on 10/30/2019 by Ankit Ny MD at OR [facility] Left: Eye 02/12/2021 MX60 / [id number] / [id number] Clip Ultra 360 235cm - [id number] Implanted:Qty: 1 on 05/02/2024 by Omid Bonner MD at OR [facility] Colon [employer] ENDOSCOPY [id number] 12/26/2026 [id number] / / [id number] Clip Ultra 360 235cm - [id number] Implanted:Qty: 1 on 05/02/2024 by Omid Bonner MD at OR [facility] Colon [employer] ENDOS[employer] [id number] 12/26/2026 [id number] / / [id number] Clip Ultra 360 235cm - [id number] Implanted:Qty: 1 on 05/02/2024 by Omid Bonner MD at OR [facility] [employer] ENDOSCOPY [id number] 12/26/2026 [id number] / / [id number] Catheter Hemostatic 235cm 2.8mm 11mm Cl[address] Latexfree - [id number] Implanted:Qty: 1 on 06/08/2024 by Belén Hernadez MD at OR [facility] [employer] ENDOSCOPY [id number] 01/01/2027 [id number] / / [id number] Clip Ultra 360 235cm - [id number] Implanted:Qty: 1 on 06/08/2024 by Belén Hernadez MD at OR [facility] [employer] ENDOSCOPY [id number] 03/06/2027 [id number] / / [id number] Catheter Hemostatic 235cm 2.8mm 11mm [address] Latexfree - [id number] Implanted:Qty: 1 on 06/08/2024 by Belén Hernadez MD at OR [facility] [employer] ENDOSCOPY [id number] 01/30/2027 [id number] / / [id number] Clip Ultra 360 235cm - [id number] Implanted:Qty: 1 on 06/08/2024 by Belén Hernadez MD at OR [facility] [employer] ENDOSCOPY [id number] 12/27/2026 [id number] / / [id number] Catheter Hemostatic 235cm 2.8mm [address]mm [address] Latexfree - [id number] Implanted:Qty: 1 on 06/08/2024 by Belén Hernadez MD at OR [facility] [employer] ENDOSCOPY [id number] 01/30/2027 [id number] / / [id number] Clip Ultra 360 235cm - [id number] Implanted:Qty: 1 on 06/08/2024 by Belén Hernadez MD at OR [facility] [employer] ENDOSCOPY [id number] 12/27/2026 [id number] / / [id number] Clip Ultra 360 235cm - [id number] Implanted:Qty: 1 on 06/08/2024 by Belén Hernadez MD at OR [facility] [employer] ENDOSCOPY [id number] 12/26/2026 [id number] / / [id number] Clip Ultra 360 235cm - [id number] Implanted:Qty: 1 on 06/08/2024 by Belén Hernadez MD at OR [facility] [employer] ENDOSCOPY [id number] 12/27/2026 [id number] / / [id number] Clip Hemostatic 18mm Assurance - [id number] Implanted:Qty: 1 on 06/08/2024 by Belén Hernadez MD at OR [facility] [employer] [id number] 01/02/2027 [id number] / / [id number] Catheter Hemostatic 235cm 2.8mm [address]mm [address] Latexfree - [id number] Implanted:Qty: 1 on 06/08/2024 by Belén Hernadez MD at OR [facility] [employer] ENDOSCOPY [id number] 01/30/2027 [id number] / / [id number] Catheter Hemostatic 235cm 2.8mm [address] Latexfree - [id number] Implanted:Qty: 1 on 06/08/2024 by Belén Hernadez MD at OR [facility] [employer] ENDOSCOPY [id number] 01/30/2027 [id number] / / [id number] Clip Hemostatic 11mm Assurance - [id number] Implanted:Qty: 1 on 06/08/2024 by Belén Hernadez MD at OR [facility] [employer] 11/14/2026 [id number] / / [id number] Catheter Hemostatic 235cm 2.8mm [address]mm [address] Latexfree - [id number] Implanted:Qty: 1 on 06/08/2024 by Belén Hernadez MD at OR [facility] [employer] ENDOSCOPY [id number] 01/01/2027 [id number] / / [id number] Catheter Hemostatic 235cm 2.8mm [address]mm [address] Latexfree - [id number] Implanted:Qty: 1 on 06/08/2024 by Belén Hernadez MD at OR [facility] [employer] ENDOSCOPY [id number] 01/30/2027 [id number] / / [id number] Valve Transcath Resilia 26mm - [id number] - [id number] Implanted:Qty: 1 on 06/19/2024 by Khang Mir MD at [facility] [employer] [id number] 09/27/2026 [id number] / [id number] / [id number] documented as of this encounter Advance Directives * Full Code (Latest Code Status on File) Date Activated Date Inactivated Comments 06/19/2024 12:49 PM 06/20/2024 4:51 PM This order re flects the patients wishes and were consensually agreed upon. Question Answer Comments Discussion of Advance Directives occurred with: Patient * Full Code Date Activated Date Inactivated Comments 06/07/2024 10:49 PM 06/12/2024 10:54 PM This order reflects the patients wishes and were consensually agreed upon. Question Answer Comments Discussion of Advance Directives occurred with: Patient * Full Code Date Activated Date Inactivated Comments 05/02/2024 9:14 AM 05/04/2024 2:11 PM This order reflects the patients wishes and were consensually agreed upon. Question Answer Comments Discussion of Advance Directives occurred with: Patient Does the patient have a Living Will? Yes, not cu rrently available Does the patient have Health Care Power of Wood Box Maker? Yes, not currently available * No Code Date Activated Date Inactivated Comments 05/01/2024 11:50 AM 05/02/2024 9:14 AM This orde r reflects the patients wishes and were consensually agreed upon. Question Answer Comments Discussion of Advance Directives occurred with: Patient Healthcare Agents on File Name Relationship Healthcare Agent Relationshi p Communication Mattie Branch Adult Child First Alternat e Health Care Agent (per Health Care Power of Wood Box Maker document) Care Teams Manager Intensive Care Relationship Specialty Start Date End Date September, Declan Person MD [address] [place] [address] PCP - General Family Medicine 05/20/23 documented as of this encounter
[2024-07-04] MEDS: BUPIVACAINE 0.25% PF 30 ML VIAL ONE (16:54)
[2024-07-04] MEDS: VANCOMYCIN HCL 1000MG/20ML VIAL ONE (16:54)
[2024-07-04] MEDS: LIDOCAINE 1% LOCAL 20 ML VIAL ONE ×2 (16:54→17:34)
[2024-07-04] MEDS: ceFAZolin 330 MG/ML 1 GM VIAL ONE (16:55)
[2024-07-04] MEDS: WATER, STERILE FOR INJ 10 ML VIAL ONE (16:55)
[2024-07-04] MEDS: METOPROLOL TARTRATE 25 MG TAB PO STA (17:10)
[2024-07-04] MEDS: MIDAZOLAM HCL 5 MG/ML 1 ML VIAL ONE (17:33)
[2024-07-04] MEDS: fentaNYL citrate PF 100 MCG/2 ML VIAL ONE (17:33)
[2024-07-04] MEDS: MoRPHine SULFATE 2 MG/ML CARP ONE (17:34)
--- NOTE | 2024-07-04 17:38 | Post Anesthesia Assessment ---
Date of Service July 04, 2024 Post Sedation Assessment Vital Signs Temp Pulse Pulse Resp BP BP Pulse Ox 07/04/24 15:58 77 18 90/50 L 98 07/04/24 15:00 123/71 07/04/24 15:00 72 20 94 07/04/24 14:31 103/42 L 07/04/24 14:15 72 19 94 07/04/24 13:57 77 19 94 07/04/24 13:46 111/67 07/04/24 13:27 72 15 95 07/04/24 13:24 72 17 95 07/04/24 13:12 72 16 95 07/04/24 13:06 70 16 95 07/04/24 13:01 93/62 L 07/04/24 12:36 70 10 L 93 07/04/24 12:30 117/71 07/04/24 12:30 117/71 07/04/24 12:30 70 07/04/24 11:17 70 20 96 07/04/24 11:17 36.9 C 70 20 117/71 98 07/04/24 11:17 96 07/04/24 11:14 36.8 C 84 18 136/74 97 O2 Del Method 07/04/24 15:58 Room Air 07/04/24 15:00 07/04/24 15:00 07/04/24 14:31 07/04/24 14:15 07/04/24 13:57 07/04/24 13:46 07/04/24 13:27 07/04/24 13:24 07/04/24 13:12 07/04/24 13:06 07/04/24 13:01 07/04/24 12:36 07/04/24 12:30 07/04/24 12:30 07/04/24 12:30 07/04/24 11:17 Room Air 07/04/24 11:17 Room Air 07/04/24 11:17 Room Air 07/04/24 11:14 Room Air Recovery Score Activity: Moves 4 extremities Respiration: Deep Breath/Cough Circulation: +/-20% PreAnes Value Consciousness: Fully Awake Oxygen Saturation: > 92% On Room Air Discharge Sedation Level of Care: Fast Track Phase II Post Sedation Plan On clinical assessment, the patient appears to have tolerated the sedation without complications. Patient is recovering as anticipated. Patient will continue to be monitored by nursing and may be discharged when sedation discharge criteria are met per below protocol. Upon Completions of procedure up to 15 minutes continue every 5 minute vital signs and the P.A.R. score; then discharge to a Phase I or Fast Track to Phase II per the following guidelines: * Discharge Patient to appropriate Phase II area if PAR is 8 or greater or return to pre- procedure baseline. The post - procedure orders will be as directed. * If PAR score is less than 8 or not return to pre-procedure baseline then patient will follow Phase I monitoring till PAR is reached for Phase II. The Phase I may be done in procedure room or may call to secure a Phase I area. * If naloxone or flumazenil are used for reversal, hold in Phase I for continued monitoring from when last reversal dose was given for a minimum of 60 minutes or longer pending the nurse and/or physician discretion of patient condition before discharge to Phase II. Please call the Sedation Physician to re-evaluate and complete post-note for discharge to Phase II area. Do NOT discharge from procedure sedation or Phase 1 until post- sedation evaluation note is complete by procedure /sedation MD Sedation Discharge Instructions to be given to the patient at discharge to home.
[2024-07-04] MEDS ORDERED: MAGNESIUM HYDROXIDE SUSP 30 ML UDC PO PRN (18:33)
[2024-07-04] MEDS ORDERED: DEXTROSE 50% 50 ML SYRINGE IV PRN (18:33)
[2024-07-04] MEDS ORDERED: GLUCOSE 40% GEL 15 GM TUBE PO PRN (18:33)
[2024-07-04] MEDS ORDERED: CARBOHYDRATES FOR HYPOGLYCEMIA PO PRN (18:33)
[2024-07-04] MEDS ORDERED: GLUCAGON FOR INJ 1 MG VIAL SQ PRN (18:33)
[2024-07-04] MEDS ORDERED: GLUCOSE 10 TAB/TUBE PO PRN (18:33)
[2024-07-04] MEDS ORDERED: INFLUENZA VACC TS2024-25(65y+)/PF (IIV3) 0.5mL Syr IM ONE (18:43)
--- NOTE | 2024-07-04 20:03 | XRay Report ---
EXAM: X-ray chest one-view portable CLINICAL HISTORY: Status post upgrade to BiV ICD ensure no pneumothorax PRIORS: 07/02/2024 TECHNIQUE: Frontal view chest FINDINGS: The chest is well-expanded. No pneumothorax. A cardiac device is noted on the left chest wall. Postsurgical change of the heart noted. Heart size mildly enlarged. Trachea is patent. Osseous structures demonstrate no acute abnormality. Surgical anchors noted in the right humeral head. IMPRESSION: No pneumothorax. Electronically signed by Laura Balderas 07-04-2024 8:03 PM
[2024-07-04] MEDS: INSULIN ASPART PER UNIT CHARGE SC SCH (20:07)
[2024-07-04] MEDS: LATANOPROST 0.005% OP SOLN 2.5 ML BTL OP SCH (21:12)
[2024-07-04] MEDS: ROSUVASTATIN CALCIUM 20 MG TAB PO SCH (21:14)
[2024-07-04] MEDS: TAMSULOSIN HCL 0.4 MG CAP PO SCH (21:15)
[2024-07-04] MEDS: AMIODARONE 200 MG TAB PO ONE (22:45)
[2024-07-04] MEDS: METOPROLOL TARTRATE 25 MG TAB PO SCH (22:45)
[2024-07-04] MEDS: oxyCODONE/ACETAMINOPHEN 5mg/325mg TAB PO PRN (23:00)
--- OUTSIDE RECORDS SUMMARY | 2024-07-05 03:05 | External Medical Summary | Summary of Care ---
Author Name Unknown Organization [facility] Address [address] [address] Phone [phone] Care Team Providers Care Commercial Fisher Name Role Phone Declan Dejesus MD Primary Care Provider [phone] Reason for Visit * Reason Onset Date Comments Near Syncopal Episode 07/04/2024 Encounter Details Date Type Department Care Team (Late st Contact Info) Description 07/04/2024 Telephone Cardiology, [facility] [address] [facility] [place] [address] Divya Nation, [address] [facility] [place] [address] Near Syncopal Episode Allergies Active Allergy Reactions Criticality Noted Date Comments Empagliflozin 10/06/2020 Fungal infection, urinary frequency Lisinopril Cough Polyethylene Glycol Other (Please comment) Low 04/26/2024 Severe gas Nickel Rash 09/13/2011 Tetanus Toxoids Rash 09/13/2011 documented as of this encounter (statuses as of 07/04/2024) Medications MULTI VITAMIN MENS PO TABS one by mouth daily Active Dutasteride 0.5 MG Oral Capsule (Avodart)Indicatio ns:BPH with obstruction/lower urinary tract symptoms Take 1 Capsule by mouth in the morning. 90 Capsule 3 05/10/2024 10:16 AM EST 04/05/202 4 Active Glimepiride 2 MG Oral Tablet [...] 3 06/29/2024 3:45 PM EST 5 Active Furosemide 20 MG Oral Tablet (Lasix) Take 1 Tablet by mouth daily as needed (leg swelling and weight gain). 30 Tablet 3 5 Active Amoxicillin 500 MG Oral Capsule (Amoxil) Take 4 capsules 1 hour prior to any dental 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 4 Capsule 3 5 Active documented as of this encounter (statuses as of 07/04/2024) Active Problems Problem Noted Date Diagnosed Date Glaucoma 06/26/2024 Pulmonary emphysema 06/26/2024 S/P TAVR (transcatheter aortic valve replacement ) 06/20/2024 History of arteriovenous malformation (AVM) 05/17 Edema of right lower leg 06/07/2024 Atherosclerosis of [place] ronary artery without angina pectoris 05/11/2024 [...] as of this encounter (statuses as of 07/04/2024) Resolved Problems Problem Noted Date Diagnosed Date Resolved Date Primary open-angle glaucoma, right eye, moderate stage 10/16/2020 08/15/2023 Overview (08/15/2023): Noted on pl as OU moderate Glaucoma 08/27/2013 06/07/2022 Overview (06/07/2022): More specific dx on pl HTN, goal below 140/80 07/03/201210/29 Overview: Per HTN Protocol documented as of this encounter (statuses as of 07/04/2024) Immunizations Name Administration Dates Next Due COVID-19 mRNA, LNP-s, No Pre serve, 2-Dose Series (Moderna) 08/19/2020,07/22/2020 COVID-19, MRNA-LNP, PF, 50 M CG/0.5 mL, 12 YRS AND ABOVE, IM (MODERNA-Spikevax) 04/04/2023 COVID-19, mRNA, LNP-s, PF, B ooster, 100mcg/0.5mg (Moderna) 04/16/2021 Covid-19 Ad26, Single Dose (Sylvia/J&J) 08/19/2020,07/22/2020 Pneumococcal Conjugate Vacci ne, 20-valent ([id number]) 05/20/2023 Pneumococcal Polysaccharide PPV23 (Pneumovax) 03/11/2009,10/11/2008(Deferred: Patient [...] 06/07/2024 11:53 PM Yeny Carrillo RN * Are you blind or do [...] Telephone Encounter - Brianna Pereira NRCMA - 07/04/2024 10:06 AM EST Received remote tracing per Dr Nation, pt had sustained VT and needs to go to [facility] ED for echo andto see Dr Nation in ED for further evaluation and treatment. Pt daughter made aware, states understanding and will get father to ED now. JASPER Recio * Telephone Encounter - Brianna Pereira NRCMA - 07/04/2024 9:10 AM EST Pt daughter called to state that he had an episode of near syncope yesterday evening lasting less than 1 minute. Pt denies any illness. BP is note available. Blood sugar was 147. Pt related this episode to feeling worse than he did after valve surgery when he was on telemetry and had 4 sec pause. Daughter is at work an pt is is at his home with no way to check bp. Pt was advise to send a remote transmission and Dr Nation made aware. Per Dr Nation, pt may need to come into clinic for in personinterrogation. This will depend on the remote findings. JASPER Recio documented in this encounter Plan of Treatment Upcoming Encounters Date Type Department Care Team (Late st Contact Info) Description 07/12/2024 10:00 AM EST Cardiac Studies Cardiology, [facility] [address] [facility] [place] [address] [facility] [address] [facility] [place] [address] 07/17/2024 7:40 AM EST [facility] [address] [place] [phone] Declan Dejesus MD [address] [address] 07/19/2024 2:30 PM EST Cardiac Studies Cardiac Studies, [facility] [address] [place] [address] 07/24/2024 10:00 AM EDT Nurse Only Ancillary Department, [place] [phone] Ashleigh Nurse [facility] [address] [place] [address] 07/26/2024 9:00 AM EDT Laboratory Laboratory, [facility] [address] [facility] [address] [facility] [phone] [facility] [address] [place] [address] 07/26/2024 9:30 AM EDT Office Visit Cardiology, [facility] [address] [place] [address] Kareen Boyd CRNP [address] [place] [address] 07/30/2024 12:40 PM EDT Office Visit Family Practice, [place] [phone] Declan Dejesus MD [address] [place] [address] 07/31/2024 10:00 AM EDT Laboratory Laboratory, [place] [address] [place] [address] [place] [address] 08/09/2024 2:30 PM EDT Office Visit Hematology/Oncology [facility] [place] [address] [place] [phone] Bruna Funk CRNP [address] [place] [address] Health Maintenance Due Date Last Done Comments [...] 02/17/2015, Additional history exists HbA1c 10/03/2024 04/05/2024, 060 09/2023, 10/19/2023, Additional history exists Diabetic Eye Exam 12/12/2024 12/13/2023, , 07/13/2023, Additional history exists Albumin/Creatinine Ratio 03/26/2025 024, 01/04/2023, 07/05/2022, Additional history exists Depression Screening 04/10/2025 04/10/2024 B-12 06/08/2025 06/08/2024, 06/2023, 07/20/2023 O2 ASSESSMENT COMPLETED IN PAST YEAR FOR COPD 06/19/2025 06/19/2024 GFR 06/20/2025 06/20/2024, 08/2024, 06/19/2024, Additional history exists Cologuard 2026 2023, 05/16, 05/25/2023 Colonoscopy 05/02/2029 05/02/2024, 04/15, 06/29/2023, Additional history exists Colorectal Cancer Screening 05/02/2029 AAA Screening Completed 10/18/2018, 06/0 09/2018, 11/11/2014, [...] this encounter Medical Devices Implanted Type Area Border Measurer And Cutter Device Identifier Shelf Expiration Date Model / Serial / Lot Iol Mx60 14.0 Implanted:Qty: 1 on 10/19/2019 by Ankit Ny MD at OR [facility] Right: Eye 04/14/2020 MX60 / [id number] / [id number] Implanted:Qty: 1 on 10/30/2019 by Ankit Ny MD at OR [facility] Left: Eye 02/12/2021 MX60 / [id number] / [id number] Clip Ultra 360 235cm - [id number] Implanted:Qty: 1 on 05/02/2024 by Omid Bonner MD at OR [facility] Colon [employer] : ENDOSCOPY [id number] 12/26/2026 [id number] / / [id number] Clip Ultra 360 235cm - [id number] Implanted:Qty: 1 on 05/02/2024 by Omid Bonner MD at OR [facility] Colon [employer] ENDOSCOPY [id number] 12/26/2026 [id number] / / [id number] Clip Ultra 360 235cm - [id number] Implanted:Qty: 1 on 05/02/2024 by Omid Bonner MD at OR [facility] Colon [employer] ENDOSCOPY [id number] 12/26/2026 [id number] / / [id number] Catheter Hemostatic 235cm 2.8mm 11mm Cl[address] Latexfree - [id number] Implanted:Qty: 1 on 06/08/2024 by Belén Hernadez MD at OR [facility] [employer] ENDOSCOPY [id number] 01/01/2027 [id number] / / [id number] Clip Ultra 360 235cm - [id number] Implanted:Qty: 1 on 06/08/2024 by Belén Hernadez MD at OR [facility] [employer] ENDOSCOPY [id number] 03/06/2027 [id number] / / [id number] Catheter Hemostatic 235cm 2.8mm 11mm Cl[address] Latexfree - [id number] Implanted:Qty: 1 on 06/08/2024 by Belén Hernadez MD at OR [facility] [employer] ENDOSCOPY [id number] 01/30/2027 [id number] / / [id number] Clip Ultra 360 235cm - [id number] Implanted:Qty: 1 on 06/08/2024 by Belén Hernadez MD at OR [facility] [employer] ENDOSCOPY [id number] 12/27/2026 [id number] / / [id number] Catheter Hemostatic 235cm 2.8mm 11mm [address] Latexfree - [id number] Implanted:Qty: 1 on 06/08/2024 by Belén Hernadez MD at OR [facility] [employer] ENDOSCOPY [id number] 01/30/2027 [id number] / / [id number] Clip Ultra 360 235cm - [id number] Implanted:Qty: 1 on 06/08/2024 by Belén Hernadez MD at OR [facility] [employer] ENDOSCOPY [id number] 12/27/2026 [id number] / / [id number] Clip Ultra 360 235cm - [id number] Implanted:Qty: 1 on 06/08/2024 by Belén Hernadez MD at OR [facility] [employer] ENDOSCOPY [id number] 12/26/2026 [id number] / / [id number] Clip Ultra 360 235cm - [id number] Implanted:Qty: 1 on 06/08/2024 by Belén Hernadez MD at OR [facility] [employer] ENDOSCOPY [id number] 12/27/2026 [id number] / / [id number] Clip Hemostatic 18mm Assurance - [id number] Implanted:Qty: 1 on 06/08/2024 by Belén Hernadez MD at OR [facility] [employer] [id number] 01/02/2027 [id number] / / [id number] Catheter Hemostatic 235cm 2.8mm 11mm [address] Latexfree - [id number] Implanted:Qty: 1 on 06/08/2024 by Belén Hernadez MD at OR [facility] [employer] ENDOSCOPY [id number] 01/30/2027 [id number] / / [id number] Catheter Hemostatic 235cm 2.8mm 11mm [address] Latexfree - [id number] Implanted:Qty: 1 on 06/08/2024 by Belén Hernadez MD at OR [facility] [employer] ENDOSCOPY [id number] 01/30/2027 [id number] / / [id number] Clip Hemostatic 11mm Assurance - [id number] Implanted:Qty: 1 on 06/08/2024 by Belén Hernadez MD at OR [facility] [email or web address] 11/14/2026 [id number] / / [id number] Catheter Hemostatic 235cm 2.8mm 11mm Cl[address] Latexfree - [id number] Implanted:Qty: 1 on 06/08/2024 by Belén Hernadez MD at OR [facility] [employer] ENDOSCOPY [id number] 01/01/2027 [id number] / / [id number] Catheter Hemostatic 235cm 2.8mm 11mm Cl[address] Latexfree - [id number] Implanted:Qty: 1 on 06/08/2024 by Belén Hernadez MD at OR [facility] [employer] ENDOSCOPY [id number] 01/30/2027 [id number] / / [id number] Valve Transcath Resilia 26mm - [id number] - [id number] Implanted:Qty: 1 on 06/19/2024 by Khang Mir MD at [facility] [employer] [id number] 09/27/2026 [id number] / [id number] / [id number] documented as of this encounter Advance Directives [...] the patient have Health Care Power of Tin Recovery Worker? Yes, not currently available * No Code Date Activated Date Inactivated Comments 05/01/2024 11:50 AM 05/02/2024 9:14 AM This orde r reflects the patients wishes and were consensually agreed upon. Question Answer Comments Discussion of Advance Directives occurred with: Patient Healthcare Agents on File Name Relationship Healthcare Agent [facility] Mattie Branch Adult Child First Alternat e Health Care Agent (per Health Care Power of Tin Recovery Worker document) Care Teams Commercial Fisher Relationship Specialty Start Date End Date September, Declan Person MD [address] [address] [address] PCP - General Family Medicine 05/20/23 documented as of this encounter
[2024-07-05 06:37] LABS: Hematocrit (blood only) 24.9 % (42.0-52.0); Hemoglobin 7.4 g/dl (14.0-18.0); Mean Corpuscular Hemoglobin 23.9 pg (25.0-34.0); Mean Corpuscular Hgb Conc 29.7 g/dL (32.0-36.0); Mean Corpuscular Volume 80.3 fL (80.0-100.0); Mean Platelet Volume 10.9 fL (9.4-12.4); Platelet Count 171 K/uL (130-400); RDW Coefficient of Variation 16.9 % (11.5-14.5); RDW Standard Deviation 49.5 fL (36.4-46.3); White Blood Count 7.25 K/ul (4.8-10.8)
[2024-07-05 06:51] LABS: BUN Creatinine Ratio 19.1 (10-20); Calcium 9.2 mg/dl (8.6-10.3); Creatinine Clr Calc Pharmacy 118.3 ml/min; Magnesium 2.1 mg/dl (1.7-2.4); Potassium 3.9 mmol/L (3.5-5.1)
[2024-07-05] MEDS: AMIODARONE 200 MG TAB PO SCH (08:24)
[2024-07-05] MEDS: FOLIC ACID 1 MG TAB PO SCH (08:25)
[2024-07-05] MEDS: ASPIRIN 81 MG CHEW PO SCH (08:25)
[2024-07-05] MEDS: PANTOprazole 40 MG TAB PO SCH (08:26)
[2024-07-05] MEDS: FINASTERIDE 5 MG TAB PO SCH (08:26)
[2024-07-05] MEDS: MULTIVITAMIN TAB PO SCH (08:26)
[2024-07-05] MEDS: CHOLECALCIFEROL 125 MCG (5,000 UNITS) TAB PO SCH (08:27)
[2024-07-05] MEDS: CYANOCOBALAMIN (B-12) 500 MCG TABLET PO SCH (08:27)
[2024-07-05] MEDS: TIMOLOL MALEATE 0.25% OP SOLN 5 ML BTL OPB SCH (08:28)
[2024-07-05 09:14] LABS: Estimated Average Glucose 128 mg/dl; Hemoglobin A1C 6.1 % (4.5-5.6)
[2024-07-05 12:03] LABS: Hematocrit (blood only) 26.8 % (42.0-52.0); Hemoglobin 7.8 g/dl (14.0-18.0)
--- NOTE | 2024-07-05 12:10 | Cardiology Progress Note ---
Date of Service July 05, 2024 Assessment & Plan (1) Syncope and collapse: (2) Ventricular tachycardia: (3) S/P TAVR (transcatheter aortic valve replacement): (4) Hypomagnesemia: (5) Chronic anemia: (6) ICD (implantable cardioverter-defibrillator) in place: Plan 69-year-old male with complex recent cardiac history noted above including TAVR and pacemaker implantation presents to the ER with syncope secondary to sustained ventricular tachycardia. Echocardiogram demonstrates preserved LV systolic function, normal TAVR valve function, no significant pericardial effusion. ICD implanted without complication 07/04/2024. Normal function per interrogation today. Hemoglobin trending downward today without signs/symptoms of GI blood loss. Recommendations: * Discontinue metoprolol to tartrate in favor of Toprol-XL 50 mg today * Amiodarone 200 mg TID, reduce dose to 200mg daily after 8-10g load * Serial H&H, maintain hemoglobin greater than 8.0g/dl * Outpatient device clinic wound check in one week * Continue low dose aspirin Thank you for allowing me to participate in care of your patient. Good Crenshaw DO, [facility] Admission and Anticipated Discharge Date Admission Date: July 04, 2024 Subjective Technically 69-year-old male seen examined at the bedside. Notes mild discomfort near ICD surgical site. No ecchymosis or hematoma. Telemetry reveals sinus rhythm with ventricular pacing. No recurrent ventricular tachycardia overnight. Denies palpitations or lightheadedness. Review of Systems Review of Systems: All systems reviewed & are unremarkable except as noted in Subjective Physical Exam Constitutional: well nourished; no acute distress and not ill appearing Respiratory: no respiratory distress, no labored breathing and no retractions Auscultation: lungs clear to auscultation bilaterally; no crackles, no rales, no rhonchi and no wheezes Cardiovascular: Rate/Rhythm: + abnormal rhythm (Irregular rhythm) Heart Sounds: normal S1, normal S2 and + murmur (1/6 systolic ejection murmur heard best at the base) Vessels: radial pulses present; no JVD Extremities: no edema Gastrointestinal (Abdomen): Inspection/Auscultation: abdomen normal to inspection; abdomen not distended Percussion/Palpation: abdomen soft; abdomen nontender, no guarding and abdomen not rigid Neurologic: CN's II-XI intact bilaterally and moves all extremities; no focal motor deficits Results & Data Vital Signs (Past 12 Hours) Vital Signs Temp Pulse Pulse Resp BP Pulse Ox O2 Del Method 07/05/24 11:30 36.8 C 74 18 118/65 97 Room Air 07/05/24 08:58 67 07/05/24 08:00 36.9 C 68 20 129/74 96 Room Air 07/05/24 04:02 36.8 C 80 18 135/89 96 Room Air 07/05/24 03:30 66 13 95 FiO2 07/05/24 11:30 07/05/24 08:58 07/05/24 08:00 07/05/24 04:02 07/05/24 03:30 21 Laboratory Results Cardiac Enzymes 07/04/24 Range/Units 14:48 Troponin I High Sens 24.1 H (0-20) pg/ml CBC 07/05/24 07/05/24 Range/Units 06:06 11:53 WBC 7.25 (4.8-10.8) K/ul RBC 3.10 L (4.70-6.10) M/uL Hgb 7.4 L 7.8 L (14.0-18.0) g/dl Hct 24.9 L 26.8 L (42.0-52.0) % Plt Count 171 (130-400) K/uL Comprehensive Metabolic Panel 07/05/24 Range/Units 06:06 Sodium 137 (136-145) mmol/L Potassium 3.9 (3.5-5.1) mmol/L Chloride 105 (98-107) mmol/L Carbon Dioxide 27 (21-32) mmol/L BUN 13 (6-23) mg/dl Creatinine 0.68 (0.6-1.4) mg/dl Glucose 163 H (70-99(Fasting)) mg/dl Calcium 9.2 (8.6-10.3) mg/dl Intake and Output 07/04/24 07/05/24 07/05/24 22:59 06:59 14:59 Intake Total 200 / 200 Balance 200 / 200 Intake: IV 200 / 200 Magnesium Sulfate / D5w 1 gm In 200 / 200 100 ml @ 50 mls/hr IV Q2H DANYEL Rx#:[id number] Other: # Unmeasured Voids 450 Weight 107.1 kg 107.2 kg Weight Measurement Method Built in [facility] Built in [facility]
--- NOTE | 2024-07-05 15:47 | Electrocardiogram Report ---
Test Reason : Blood Pressure : */* mmHG Vent. Rate : 83 BPM Atrial Rate : 83 BPM P-R Int : 144 ms QRS Dur : 114 ms QT Int : 382 ms P-R-T Axes : * -44 111 degrees QTcB Int : 448 ms Atrial-sensed ventricular-paced rhythm Abnormal ECG When compared with ECG of 04-Jul-2024 14:15, Vent. rate has increased by 12 bpm Confirmed by Baron Pagan ([id number]) on 07/05/2024 3:47:40 PM Referred By: Divya Nation Confirmed By: Baron Pagan
--- NOTE | 2024-07-05 16:01 | Electrocardiogram Report ---
Test Reason : Blood Pressure : */* mmHG Vent. Rate : 72 BPM Atrial Rate : 72 BPM P-R Int : 158 ms QRS Dur : 162 ms QT Int : 454 ms P-R-T Axes : 42 -44 95 degrees QTcB Int : 497 ms Atrial-sensed ventricular-paced rhythm Abnormal ECG When compared with ECG of 04-Jul-2024 21:53, (unconfirmed) Vent. rate has decreased by 11 bpm Confirmed by Baron Pagan ([id number]) on 07/05/2024 4:01:04 PM Referred By: Divya Nation Confirmed By: Baron Pagan
[2024-07-05] MEDS: IRON SUCROSE 300 MG in SODIUM CHLORIDE 0.9% 250 ML IV ONE (16:25)
--- NOTE | 2024-07-05 18:51 | Hospitalist Progress Note ---
Date of Service July 05, 2024 Assessment & Plan (1) Syncope and collapse: (2) Ventricular tachycardia: (3) Pacemaker: Plan: Patient is 69 year old male with PMH HTN, dyslipidemia, DM II, chronic iron deficiency anemia, s/p TAVR 06/19/24, AV block s/p pacemaker on 07/02/24, CPAP, depression, BPH presented to ER with c/o syncope last night. In ER vitals stable. Troponin: 26-->24. K: 4.4. Magnesium: 2.0 CXR: no acute infiltrate, no significant overload Pacemaker in interrogated showing episode sustained ventricular tachycardia. Today Echo: EF: 60-65, normal TAVR valve function, no significant pericardial effusion. Cardiology consult. Dr Crenshaw saw and recommend ICD implantation and ordered metoprolol to 25 mg twice daily, and IV magnesium Consult cardiology EP. Dr Nation saw pt in ER and is planning to take for ICD now Will keep NPO for now CBC, BMP in am EKG in am 07/05 s/p pacemaker placement Cardiology recommendations: * Discontinue metoprolol to tartrate in favor of Toprol-XL 50 mg today * Amiodarone 200 mg TID, reduce dose to 200mg daily after 8-10g load * Serial H&H, maintain hemoglobin greater than 8.0g/dl * Outpatient device clinic wound check in one week * Continue low dose aspirin (4) Aortic stenosis: (5) S/P TAVR (transcatheter aortic valve replacement): Plan: S/P TAVR on 06/19/24 (6) HTN (hypertension): Plan: BP stable Monitor (7) Dyslipidemia: Plan: Continue rosuvastatin (8) Chronic anemia: Plan: Chronic iron deficiency anemia Hgb: 8.3. 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 Supplemental iron stopped as pt reports causing GI upset. 07/05 Iron < 17 Venofer ordered monitor Hg (9) Diabetes mellitus, type II: Plan: A1c: 4.9 on 04/05/24 Hold home metformin, glimepiride Novolog sliding scale per protocol (10) BPH (benign prostatic hyperplasia): Plan: Continue home tamsulosin, dutasteride (11) REMBERTO on CPAP: Plan: CPAP HS DVT Prophylaxis SCDs for now Admit PCU Full Code as per discussion with pt Follows with Dr Dejesus for routine care Admission and Anticipated Discharge Date Admission Date: July 04, 2024 Subjective ff up for v tach, syncope, etc s/p ICD placement seen resting in bed, sleeping states he feels ok overall still having significant pain over the ICD site no chest pain, dyspnea, palpitations, dizziness no melena/hematochezia no other symptom Review of Systems Review of Systems: all noted and negative except for above Physical Exam Physical Exam: General- oriented x 3, not in distress, speaks in sentences with no effort or accessory muscle use Eyes- anicteric Neck- no JVD Lungs- clear breath sounds bilaterally, no rales/wheezes left chest wall: no bleeding or discharge Heart- normal rate, regular rhythm; no murmurs Abdomen- normal bowel sounds, nondistended, soft, nontender Extremities- no pretibial edema, no calf tenderness Neuro- alert, oriented x 3; no gross focal neurologic deficits Skin- warm & dry Results & Data Results & Data Vital Signs (Past 12 Hours) Vital Signs Temp Pulse Pulse Resp BP Pulse Ox O2 Del Method 07/05/24 15:34 72 07/05/24 15:03 36.7 C 77 16 124/70 97 Room Air 07/05/24 11:30 36.8 C 74 18 118/65 97 Room Air 07/05/24 08:58 67 07/05/24 08:00 36.9 C 68 20 129/74 96 Room Air all noted and reviewed including below (4) Aortic stenosis Cardiac valve disease etiology: etiology unspecified Qualified Code(s): I35.0 - Nonrheumatic aortic (valve) stenosis
[2024-07-06 06:57] LABS: Basophils # (auto) 0.05 K/uL (0.00-0.20); Basophils % (auto) 0.6 %; Eosinophils # (auto) 0.14 K/uL (0.00-0.50); Eosinophils % (auto) 1.6 %; Hematocrit (blood only) 25.1 % (42.0-52.0); Hemoglobin 7.5 g/dl (14.0-18.0); Immature Granulocytes # (auto) 0.04 K/uL (0.01-0.20); Immature Granulocytes % (auto) 0.5 %; Lymphocytes # (auto) 0.48 K/uL (1.20-3.40); Lymphocytes % (auto) 5.5 %; Mean Corpuscular Hgb Conc 29.9 g/dL (32.0-36.0); Mean Corpuscular Volume 80.4 fL (80.0-100.0); Mean Platelet Volume 11.3 fL (9.4-12.4); Monocytes # (auto) 0.79 K/uL (0.11-0.59); Monocytes % (auto) 9.1 %; Neutrophils # (auto) 7.18 K/uL (1.40-6.50); Neutrophils % (auto) 82.7 %; Platelet Count 169 K/uL (130-400); RDW Coefficient of Variation 16.9 % (11.5-14.5); RDW Standard Deviation 49.4 fL (36.4-46.3); Red Blood Count 3.12 M/uL (4.70-6.10); White Blood Count 8.68 K/ul (4.8-10.8)
[2024-07-06 07:10] LABS: BUN Creatinine Ratio 15.8 (10-20); Calcium 9.3 mg/dl (8.6-10.3); Creatinine Clr Calc Pharmacy 105.5 ml/min; Potassium 3.9 mmol/L (3.5-5.1)
[2024-07-06 07:29] LABS: Hypochromasia Present; Polychromasia 1+; Tear Drop Cells 1+
[2024-07-06] MEDS: METOPROLOL SUCC 50MG EXT REL TAB PO SCH (08:30)
[2024-07-06] MEDS ORDERED: SODIUM CHLORIDE 0.9% 50 ML IV PRN (10:10)
[2024-07-06] MEDS ORDERED: SODIUM CHLORIDE 0.9% 100 ML IV PRN (10:10)
[2024-07-06] MEDS: ACETAMINOPHEN 325 MG TAB PO SCH (12:27)
[2024-07-06] MEDS: diphenhydrAMINE Capsule 25 MG CAP PO SCH (12:28)
--- NOTE | 2024-07-06 13:54 | Cardiology Progress Note ---
Date of Service July 06, 2024 Assessment & Plan (1) Syncope and collapse: (2) Ventricular tachycardia: (3) S/P TAVR (transcatheter aortic valve replacement): (4) Hypomagnesemia: (5) Chronic anemia: (6) ICD (implantable cardioverter-defibrillator) in place: Plan 69-year-old male with complex recent cardiac history noted above including TAVR and pacemaker implantation presents to the ER with syncope secondary to sustained ventricular tachycardia. Echocardiogram demonstrates preserved LV systolic function, normal TAVR valve function, no significant pericardial effusion. ICD implanted without complication 07/04/2024. Normal function per interrogation 07/05/2024. Hemoglobin 7.5 (stable) today without signs/symptoms of GI blood loss. Recommendations: * Continue Toprol-XL 50 mg today * Amiodarone 200 mg TID, reduce dose to 200mg daily after 8-10g load (14 days) * Serial H&H, maintain hemoglobin greater than 8.0g/dl * Oral iron supplementation poorly tolerated, IV iron infusion as per internal medicine * Outpatient device clinic wound check in one week * Continue low dose aspirin Cardiology will sign off. Please call with additional concerns/questions. Good Crenshaw DO, [facility] Admission and Anticipated Discharge Date Admission Date: July 04, 2024 Subjective 69-year-old male seen examined the bedside. Feeling better today. Notes mild discomfort near ICD surgical site. No palpitations, chest discomfort, shortness of breath. Denies signs/symptoms of GI blood loss. Hemoglobin stable. Review of Systems Review of Systems: All systems reviewed & are unremarkable except as noted in Subjective Physical Exam Constitutional: well nourished; no acute distress and not ill appearing Respiratory: no respiratory distress, no labored breathing and no retractions Auscultation: lungs clear to auscultation bilaterally; no crackles, no rales, no rhonchi and no wheezes Cardiovascular: Rate/Rhythm: + abnormal rhythm (Irregular rhythm) Heart Sounds: normal S1, normal S2 and + murmur (1/6 systolic ejection murmur heard best at the base) Vessels: radial pulses present; no JVD Extremities: no edema Gastrointestinal (Abdomen): Inspection/Auscultation: abdomen normal to inspection; abdomen not distended Percussion/Palpation: abdomen soft; abdomen nontender, no guarding and abdomen not rigid Neurologic: CN's II-XI intact bilaterally and moves all extremities; no focal motor deficits Results & Data Vital Signs (Past 12 Hours) Vital Signs Temp Pulse Pulse Resp BP BP Pulse Ox 07/06/24 13:31 36.9 C 68 18 109/71 92 07/06/24 13:09 36.8 C 66 18 105/67 93 07/06/24 12:01 36.6 C 71 20 134/76 94 07/06/24 07:33 37.1 C 74 18 113/72 93 07/06/24 03:58 64 16 92 07/06/24 03:00 36.7 C 78 17 123/71 91 O2 Del Method FiO2 07/06/24 13:31 07/06/24 13:09 07/06/24 12:01 Room Air 07/06/24 07:33 Room Air 07/06/24 03:58 21 07/06/24 03:00 CPAP Laboratory Results CBC 07/06/24 Range/Units 06:17 WBC 8.68 (4.8-10.8) K/ul RBC 3.12 L (4.70-6.10) M/uL Hgb 7.5 L (14.0-18.0) g/dl Hct 25.1 L (42.0-52.0) % Plt Count 169 (130-400) K/uL Neut # (Auto) 7.18 H (1.40-6.50) K/uL Lymph # (Auto) 0.48 L (1.20-3.40) K/uL [place] # (Auto) 0.79 H (0.11-0.59) K/uL Eos # (Auto) 0.14 (0.00-0.50) K/uL Baso # (Auto) 0.05 (0.00-0.20) K/uL Comprehensive Metabolic Panel 07/06/24 Range/Units 06:17 Sodium 137 (136-145) mmol/L Potassium 3.9 (3.5-5.1) mmol/L Chloride 105 (98-107) mmol/L Carbon Dioxide 27 (21-32) mmol/L BUN 12 (6-23) mg/dl Creatinine 0.76 (0.6-1.4) mg/dl Glucose 176 H (70-99(Fasting)) mg/dl Calcium 9.3 (8.6-10.3) mg/dl Intake and Output 07/05/24 07/06/24 07/06/24 22:59 06:59 14:59 Intake Total 465 / 1135 120 / 1135 0 / 0 Output Total 200 / 200 Balance 265 / 935 120 / 935 0 / 0 Intake: IV 265 / 265 Iron Sucrose 300 mg In Sodium 265 / 265 Chloride 0.9% 250 ml @ 176.667 mls/hr IV TODAY ONE Rx#: [id number] Oral 200 / 870 120 / 870 Intake (Blood Product) Amt 0 / 0 Packed Cells, Leukoreduced 0 / 0 Unit [id number] Output: Urine 200 / 200 Other: Weight 106.6 kg Weight Measurement Method Built in [facility]
--- NOTE | 2024-07-06 17:46 | Hospitalist Progress Note ---
Date of Service July 06, 2024 Assessment & Plan (1) Syncope and collapse: (2) Ventricular tachycardia: (3) Pacemaker: Plan: Patient is 69 year old male with PMH HTN, dyslipidemia, DM II, chronic iron deficiency anemia, s/p TAVR 06/19/24, AV block s/p pacemaker on 07/02/24, CPAP, depression, BPH presented to ER with c/o syncope last night. In ER vitals stable. Troponin: 26-->24. K: 4.4. Magnesium: 2.0 CXR: no acute infiltrate, no significant overload Pacemaker in interrogated showing episode sustained ventricular tachycardia. Today Echo: EF: 60-65, normal TAVR valve function, no significant pericardial effusion. Cardiology consult. Dr Crenshaw saw and recommend ICD implantation and ordered metoprolol to 25 mg twice daily, and IV magnesium Consult cardiology EP. Dr Nation saw pt in ER and is planning to take for ICD now Will keep NPO for now CBC, BMP in am EKG in am 07/06 s/p pacemaker placement No arrhythmias so far Cardiology recommendations: * Discontinue metoprolol to tartrate in favor of Toprol-XL 50 mg today * Amiodarone 200 mg TID, reduce dose to 200mg daily after 8-10g load * Serial H&H, maintain hemoglobin greater than 8.0g/dl * Outpatient device clinic wound check in one week * Continue low dose aspirin (4) Aortic stenosis: (5) S/P TAVR (transcatheter aortic valve replacement): Plan: S/P TAVR on 06/19/24 (6) HTN (hypertension): Plan: BP stable Monitor (7) Dyslipidemia: Plan: Continue rosuvastatin (8) Chronic anemia: Plan: Chronic iron deficiency anemia Hgb: 8.3. 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 Supplemental iron stopped as pt reports causing GI upset. 07/05 Iron < 17 Venofer ordered monitor Hg 07/06 Hemoglobin decreased 7.5 Likely secondary to acute blood loss from procedures No signs of overt GI bleed Has a history of Heyde's syndrome 1 unit packed RBCs ordered Hold aspirin for now Repeat H&H tonight (9) Diabetes mellitus, type II: Plan: A1c: 4.9 on 04/05/24 Hold home metformin, glimepiride Novolog sliding scale per protocol (10) BPH (benign prostatic hyperplasia): Plan: Continue home tamsulosin, dutasteride (11) REMBERTO on CPAP: Plan: CPAP HS DVT Prophylaxis SCDs for now Admit PCU Full Code as per discussion with pt Follows with Dr Dejesus for routine care Admission and Anticipated Discharge Date Admission Date: July 04, 2024 Subjective Still having some pain over the ICD/pacemaker site Denies chest pain, shortness of breath, palpitations, dizziness no other new symptoms Review of Systems Review of Systems: all noted and negative except for above Physical Exam Physical Exam: General- oriented x 3, not in distress, speaks in sentences with no effort or accessory muscle use Eyes- anicteric Neck- no JVD Lungs- clear breath sounds bilaterally, no rales/wheezes ICD/pacemaker site: No bleeding or discharge Heart- normal rate, regular rhythm; no murmurs Abdomen- normal bowel sounds, nondistended, soft, nontender Extremities- no pretibial edema, no calf tenderness Neuro- alert, oriented x 3; no gross focal neurologic deficits Skin- warm & dry Results & Data Results & Data Vital Signs (Past 12 Hours) Vital Signs Temp Pulse Pulse Resp BP BP Pulse Ox 07/06/24 17:39 36.5 C 67 18 128/62 94 07/06/24 16:30 65 07/06/24 15:43 36.5 C 71 18 142/83 H 94 07/06/24 15:16 36.5 C 67 18 128/62 93 07/06/24 14:16 65 18 105/72 91 07/06/24 13:46 36.9 C 64 18 108/69 92 07/06/24 13:31 36.9 C 68 18 109/71 92 07/06/24 13:09 36.8 C 66 18 105/67 93 07/06/24 12:01 36.6 C 71 20 134/76 94 07/06/24 10:10 70 07/06/24 07:33 37.1 C 74 18 113/72 93 O2 Del Method 07/06/24 17:39 07/06/24 16:30 07/06/24 15:43 Room Air 07/06/24 15:16 07/06/24 14:16 07/06/24 13:46 07/06/24 13:31 07/06/24 13:09 07/06/24 12:01 Room Air 07/06/24 10:10 07/06/24 07:33 Room Air all noted and reviewed including below (4) Aortic stenosis Cardiac valve disease etiology: etiology unspecified Qualified Code(s): I35.0 - Nonrheumatic aortic (valve) stenosis
[2024-07-06 18:56] LABS: Hematocrit (blood only) 27.6 % (42.0-52.0); Hemoglobin 8.4 g/dl (14.0-18.0)
[2024-07-06] MEDS ORDERED: MoRPHine SULFATE 4 MG/ML 1 ML CARP\\VIAL IV PRN (20:44)
[2024-07-06] MEDS: oxyCODONE HCL IR 5 MG TAB (IMMEDIATE RELEASE) PO STA (21:19)
[2024-07-06] MEDS: ACETAMINOPHEN 325 MG TAB PO PRN (21:19)
[2024-07-06] MEDS: PANTOprazole 40 MG/10 ML SYR IV SCH (21:20)
[2024-07-07] MEDS: oxyCODONE HCL IR 5 MG TAB (IMMEDIATE RELEASE) PO PRN (02:14)
[2024-07-07] MEDS: DOCUSATE SODIUM 100 MG CAP PO SCH (08:48)
[2024-07-07 09:32] LABS: Basophils # (auto) 0.07 K/uL (0.00-0.20); Basophils % (auto) 0.9 %; Eosinophils # (auto) 0.25 K/uL (0.00-0.50); Eosinophils % (auto) 3.1 %; Hematocrit (blood only) 27.4 % (42.0-52.0); Hemoglobin 8.2 g/dl (14.0-18.0); Immature Granulocytes # (auto) 0.05 K/uL (0.01-0.20); Immature Granulocytes % (auto) 0.6 %; Lymphocytes # (auto) 0.59 K/uL (1.20-3.40); Lymphocytes % (auto) 7.3 %; Mean Corpuscular Hemoglobin 24.1 pg (25.0-34.0); Mean Corpuscular Hgb Conc 29.9 g/dL (32.0-36.0); Mean Corpuscular Volume 80.6 fL (80.0-100.0); Mean Platelet Volume 11.6 fL (9.4-12.4); Monocytes # (auto) 0.71 K/uL (0.11-0.59); Monocytes % (auto) 8.8 %; Neutrophils # (auto) 6.38 K/uL (1.40-6.50); Neutrophils % (auto) 79.3 %; Platelet Count 172 K/uL (130-400); RDW Coefficient of Variation 16.6 % (11.5-14.5); RDW Standard Deviation 48.2 fL (36.4-46.3); White Blood Count 8.05 K/ul (4.8-10.8)
[2024-07-07] MEDS ORDERED: PHARMACY GLYCEMIC MGMT CONSULT PRN (11:35)
[2024-07-07 11:49] VITALS: BP 122/71; RESP 20; TEMP 97.5; O2SAT 92
--- NOTE | 2024-07-07 13:23 | Hospitalist Progress Note ---
Date of Service July 07, 2024 Assessment & Plan (1) Syncope and collapse: (2) Ventricular tachycardia: (3) Pacemaker: Plan: Patient is 69 year old male with PMH HTN, dyslipidemia, DM II, chronic iron deficiency anemia, s/p TAVR 06/19/24, AV block s/p pacemaker on 07/02/24, CPAP, depression, BPH presented to ER with c/o syncope last night. In ER vitals stable. Troponin: 26-->24. K: 4.4. Magnesium: 2.0 CXR: no acute infiltrate, no significant overload Pacemaker in interrogated showing episode sustained ventricular tachycardia. Today Echo: EF: 60-65, normal TAVR valve function, no significant pericardial effusion. Cardiology consult. Dr Crenshaw saw and recommend ICD implantation and ordered metoprolol to 25 mg twice daily, and IV magnesium Consult cardiology EP. Dr Nation saw pt in ER and is planning to take for ICD now Will keep NPO for now CBC, BMP in am EKG in am 07/06 s/p pacemaker placement No arrhythmias so far Cardiology recommendations: * Discontinue metoprolol to tartrate in favor of Toprol-XL 50 mg today * Amiodarone 200 mg TID, reduce dose to 200mg daily after 8-10g load * Serial H&H, maintain hemoglobin greater than 8.0g/dl * Outpatient device clinic wound check in one week * Continue low dose aspirin (4) Aortic stenosis: (5) S/P TAVR (transcatheter aortic valve replacement): Plan: S/P TAVR on 06/19/24 (6) HTN (hypertension): Plan: BP stable Monitor (7) Dyslipidemia: Plan: Continue rosuvastatin (8) Chronic anemia: Plan: Chronic iron deficiency anemia Hgb: 8.3. 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 Supplemental iron stopped as pt reports causing GI upset. 07/05 Iron < 17 Venofer ordered monitor Hg 07/06 Hemoglobin decreased 7.5 Likely secondary to acute blood loss from procedures No signs of overt GI bleed Has a history of Heyde's syndrome 1 unit packed RBCs ordered Hold aspirin for now Repeat H&H tonight (9) Diabetes mellitus, type II: Plan: A1c: 4.9 on 04/05/24 Hold home metformin, glimepiride Novolog sliding scale per protocol (10) BPH (benign prostatic hyperplasia): Plan: Continue home tamsulosin, dutasteride (11) REMBERTO on CPAP: Plan: CPAP HS DVT Prophylaxis SCDs for now Admit PCU Full Code as per discussion with pt Follows with Dr Dejesus for routine care Admission and Anticipated Discharge Date Admission Date: July 04, 2024 Results & Data Results & Data Vital Signs (Past 12 Hours) Vital Signs Temp Pulse Resp BP Pulse Ox O2 Del Method 07/07/24 10:58 36.4 C L 67 20 122/71 92 Room Air 07/07/24 07:35 36.3 C L 82 19 138/77 95 Room Air 07/07/24 02:29 36.8 C 70 18 118/62 93 Room Air 07/07/24 02:29 19 93 (4) Aortic stenosis Cardiac valve disease etiology: etiology unspecified Qualified Code(s): I35.0 - Nonrheumatic aortic (valve) stenosis
[2024-07-07 14:03] VITALS: PULSE 77
--- NOTE | 2024-07-07 16:18 | Discharge Summary ---
Discharge Summary Date of Service July 07, 2024 delayed entry date of service noted above Principal Dx & Hospital Course #1 = Principal Diagnosis (1) Syncope and collapse: (2) Ventricular tachycardia: (3) Pacemaker: (4) Aortic stenosis: (5) S/P TAVR (transcatheter aortic valve replacement): (6) HTN (hypertension): (7) Dyslipidemia: (8) Chronic anemia: (9) Diabetes mellitus, type II: (10) BPH (benign prostatic hyperplasia): (11) REMBERTO on CPAP: (1) Syncope and collapse: (2) Ventricular tachycardia: (3) Pacemaker: Plan: Patient is 69 year old male with PMH HTN, dyslipidemia, DM II, chronic iron deficiency anemia, s/p TAVR 06/19/24, AV block s/p pacemaker on 07/02/24, CPAP, depression, BPH presented to ER with c/o syncope last night. In ER vitals stable. Troponin: 26-->24. K: 4.4. Magnesium: 2.0 CXR: no acute infiltrate, no significant overload Pacemaker in interrogated showing episode sustained ventricular tachycardia. Today Echo: EF: 60-65, normal TAVR valve function, no significant pericardial e ffusion. Cardiology consult. Dr Crenshaw saw and recommend ICD implantation and ordered metoprolol to 25 mg twice daily, and IV magnesium Consult cardiology EP. Dr Nation saw pt in ER and is planning to take for ICD now Will keep NPO for now CBC, BMP in am EKG in am 07/07 s/p pacemaker placement No arrhythmias so far Cardiology recommendations: * Discontinue metoprolol to tartrate in favor of Toprol-XL 50 mg today * Amiodarone 200 mg TID, reduce dose to 200mg daily after 8-10g load (2 weeks) * Serial H&H, maintain hemoglobin greater than 8.0g/dl * Outpatient device clinic wound check in one week * Continue low dose aspirin (4) Aortic stenosis: (5) S/P TAVR (transcatheter aortic valve replacement): Plan: S/P TAVR on 06/19/24 (6) HTN (hypertension): Plan: BP stable Monitor (7) Dyslipidemia: Plan: Continue rosuvastatin (8) Chronic anemia: Plan: Chronic iron deficiency anemia Hgb: 8.3. 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 Supplemental iron stopped as pt reports causing GI upset. 07/05 Iron < 17 Venofer ordered monitor Hg 07/06 Hemoglobin decreased 7.5 Likely secondary to acute blood loss from procedures No signs of overt GI bleed Has a history of Heyde's syndrome 1 unit packed RBCs ordered Hold aspirin for now Repeat H&H tonight 07/07 Hg stable at 8.2 no overt signs of GI bleed noted acute blood loss likely from recent procedures monitor CBC and Fe level closely (9) Diabetes mellitus, type II: Plan: A1c: 4.9 on 04/05/24 resume usual regimen (10) BPH (benign prostatic hyperplasia): Plan: Continue home tamsulosin, dutasteride (11) REMBERTO on CPAP: Plan: CPAP HS d/c to home ff up with PCP in 1 week ff up with [facility] in 1 week Notes For Next Care Provider Medication Changes From Visit Toprol-XL 50mg daily Amiodarone 200 mg three times a day,then reduce dose to 200mg daily on July 21, 2024 Oxycodone PRN for severe pain Admission HPI Per Admitting Provider Patient is 69 year old male with PMH HTN, dyslipidemia, DM II, chronic iron deficiency anemia, s/p TAVR 06/19/24, AV block s/p pacemaker on 07/02/24, CPAP, depression, BPH presented to ER with c/o syncope last night. Patient states was sitting in his chair when he had sudden dizziness and states he passed out. Unsure how long episode was. He was at home by himself. Denies palpitation, N/V, THAKKAR or chest pain. States he has been having pain at site of pacemaker since it was inserted. Hasn't noticed any discharge from area. Reports still has been feeling poorly with continued exertional SOB. Per out patient chart review saw Dr Nation on 06/29/24 and Lasix was started. Patient states last took yesterday and he feels his BLE edema has improved and didn't take any more today. Had 3 cups coffee this morning, nothing else to eat. Denies fever/chills, diaphoresis, N/V/D/C, THAKKAR, neck pain, cough, sore throat, rhinorrhea, abdominal pain, paresthesias, rashes, dysuria, hematuria. Admission Exam Per Admitting Provider General: no acute distress, obese elderly male Head: normocephalic, atraumatic Eyes: conjunctiva non-injected, anicteric ENT: normal inspection external ears, nose, mucous membranes moist Neck: supple, trachea midline, non-tender Lungs: clear, no respiratory distress, no wheezing/rhonchi/rales CV: RRR, +murmur, trace pretibial edema Abd: protuberant, normal BS, soft, non-tender Ext: no cyanosis, no calf tenderness Neuro: A&O x 3, no focal deficits noted, normal affect Skin: warm, dry Discharge Exam General- oriented x 3, not in distress, speaks in sentences with no effort or accessory muscle use Eyes- anicteric Neck- no JVD Lungs- clear breath sounds bilaterally, no rales/wheezes Heart- normal rate, regular rhythm; no murmurs pacemaker site: no bleeding or discharge Abdomen- normal bowel sounds, nondistended, soft, nontender Extremities- no pretibial edema, no calf tenderness Neuro- alert, oriented x 3; no gross focal neurologic deficits Skin- warm & dry Updated Medication List Medication Instructions Recorded Confirmed Type dutasteride 0.5 mg capsule 0.5 mg PO QAM 08/11/18 07/04/24 History metformin 1,000 mg tablet 1,000 mg PO BID 08/11/18 07/04/24 History multivitamin 1 tab PO QAM 08/11/18 07/04/24 History rosuvastatin 40 mg tablet 40 mg PO HS 08/11/18 07/04/24 History glimepiride 2 mg tablet 2 mg PO QAM 08/22/20 07/04/24 History tamsulosin 0.4 mg capsule 0.4 mg PO HS 10/01/20 07/04/24 History timolol maleate 0.25 % eye drops 2 drp OPB DAILY 11/02/23 07/04/24 History acetaminophen 500 mg tablet 1,000 mg PO DIRECTED PRN Pain 04/06/24 07/04/24 History ##0 ascorbic acid (vitamin C) 1,000 mg 1 g PO BID 07/02/24 07/04/24 History tablet (Vitamin C) aspirin 81 mg chewable tablet 81 mg PO DAILY 07/02/24 07/04/24 History cholecalciferol (vitamin D3) 125 125 mcg PO DAILY 07/02/24 07/04/24 History mcg (5,000 unit) tablet (Vitamin D3) folic acid 1 mg tablet 1 mg PO DAILY 07/02/24 07/04/24 History cyanocobalamin (vitamin B-12) 1,000 mcg PO DAILY 07/04/24 07/04/24 History 1,000 mcg tablet (Vitamin B-12) furosemide 20 mg tablet 20 mg PO DAILY PRN Weight Gain 07/04/24 07/04/24 History latanoprost 0.005 % eye drops 1 drp ophthalmic (eye) HS 07/04/24 07/04/24 History pantoprazole 40 mg tablet,delayed 40 mg PO DAILY 07/04/24 07/04/24 History release amiodarone 200 mg tablet 200 mg PO UD #60 tabs 07/07/24 Rx docusate sodium 100 mg capsule 100 mg PO BID 7 days #14 caps 07/07/24 Rx metoprolol succinate 50 mg 50 mg PO QAM 30 days #30 tabs 07/07/24 Rx tablet,extended release 24 hr oxycodone 5 mg tablet 5 mg PO QID PRN SEVERE PAIN #15 07/07/24 Rx tabs Hospital Stay Data Consultations 07/04/24 14:43 ED Decision to Admit Stat 07/04/24 15:56 Consult Cardiac Electrophysiology Routine 07/04/24 15:57 Consult Cardiology Routine Procedures Performed Operation Date: 07/04/24 15:30 Actual Procedures p ICD Insertion Single or Dual - Divya Nation DO s Venogram, Unilateral - Divya Nation DO Diagnostic Imagining Performed 07/04/24 17:00 EP Lab Images for PACS ONCE XR chest 1V portable CLINICAL HISTORY: Chest pain, nonspecific COMPARISON STUDY: Chest radiograph July 02, 2024. FINDINGS: Left subclavian pacer and prosthetic aortic valve are place. Moderate cardiomegaly is again noted. There is no evidence for pulmonary edema. There is no consolidation. No pneumothorax or pleural effusion. IMPRESSION: No acute cardiopulmonary findings. No change in appearance of the chest. ACT 112: Negative or not required by law. Electronically signed by: Issa Pereira M.D. 07/04/2024 12:10 PM EXAM: X-ray chest one-view portable CLINICAL HISTORY: Status post upgrade to BiV ICD ensure no pneumothorax PRIORS: 07/02/2024 TECHNIQUE: Frontal view chest FINDINGS: The chest is well-expanded. No pneumothorax. A cardiac device is noted on the left chest wall. Postsurgical change of the heart noted. Heart size mildly enlarged. Trachea is patent. Osseous structures demonstrate no acute abnormality. Surgical anchors noted in the right humeral head. IMPRESSION: No pneumothorax. Electronically signed by Laura Balderas 07-04-2024 8:03 PM Dictated: 07/04/241933 Transcribed: Pending Results Patient Have Any Pending Studies at Discharge: No Discharge Instructions Given to Patient (Per Discharging Provider) PLEASE REFER TO YOUR NEW MEDICATION LIST AND FOLLOW INSTRUCTIONS CAREFULLY. YOUR NEW MEDICATIONS INCLUDE Toprol-XL 50mg daily Amiodarone 200 mg three times a day,then reduce dose to 200mg daily on July 21, 2024 Oxycodone PRN for severe pain PLEASE CALL YOUR PRIMARY CARE PHYSICIAN OR RETURN TO THE ER IF WITH WORSENING OF SYMPTOMS, INCLUDING pain over surgical site, bleeding from surgical site, black or bloody stools, dizziness, weakness, chest pain, shortness of breath, palpitations, etc FOLLOW UP WITH PRIMARY CARE PHYSICIAN IN 1 WEEK. FOLLOW UP WITH CARDIOLOGY CLINIC THIS COMING WEEK FOR WOUND AND DEVICE CHECK. THE CLINIC WILL BE CALLING YOU SOON FOR APPOINTMENT. Total Time Total Time Spent Total Time Spent (In Minutes): 45 minutes
--- NOTE | 2024-07-21 08:03 | Operative Report ---
Post Operative Report DATE OF PROCEDURE: 07/04/2024 PREOPERATIVE DIAGNOSES: sustained VT, syncope, Chronic heart failure with preserved EF NYHA Class II, intermittent CHB POSTOPERATIVE DIAGNOSES: same PROCEDURE: Upgrade to a BiV rate responsive implantable cardiac defibrillator under fluoroscopic guidance along with a peripheral venogram SURGEON: Divya Nation DO. BUTTERMAKER HELPER: None. ANESTHESIA: Monitored conscious sedation administered under my supervision by Ani Fountain. Start time 16:55 end time 17:45. A total of 4 mg of Versed and 100 mcg of fentanyl. INTRAVENOUS FLUIDS: 0 mL. CONTRAST: 10 mL. ANTIBIOTICS: 2 gram ancef INTRAVENOUS FLUIDS: 0 mL. BLOOD LOSS: 50 mL. URINE OUTPUT: None. SPECIMENS: None. FINDINGS: See below. DRAINS: None. INDICATIONS: This is a 69-year-old gentleman, who has a past medical history intermittent CHB s/p ppm 07/02/2024, LBBB, TAVR 06/19/2024, HTN, HLD, DM, S/p TKA, REMBERTO on CPAP, CAD mild non-obstructive disease, BPH, H?o AVM, iron deficiency anemia, emphysema. He had a syncopal episode which correlated with VT as seen on his ppm interrogation. He was recommended an upgrade to a BiV ICD. CONSENT: Consent was obtained prior to the patient going into electrophysiology lab. The patient was informed of risks, benefits, and alternatives to the procedure. Risks include, but not limited to, sudden cardiac , cardiac arrhythmias, cerebrovascular accident, myocardial infarction, injury to the blood vessels, chamber of the heart and lung, bleeding and infection. The patient understood these risks and agreed to proceed as planned. Informed consent was obtained. DESCRIPTION OF PROCEDURE: The patient was brought into electrophysiology lab in a fasting state. He was connected to continuous cardiac monitoring. A time-out was performed to ensure patient's identity and procedure correctly. He was prepped and draped in the left clavicular space in normal surgical standard fashion. Monitored conscious sedation was given throughout the procedure for patient's comfort level. [place] precautions were maintained throughout the procedure. He received prophylactic antibiotics prior to incision 10 mL of 1% lidocaine-bupivacaine mixture was given over the prior surgical incision.The prior surgical incision was reopened using blunt dissection. Blunt dissection was performed down to the pulse generator. Pulse generator was removed from the body but the remained attached to the leads to have back up pacing while positioning in the bundle lead. Then, a peripheral venogram was performed to identify the axillary vein. Venous access was obtained through a needlestick without any problems. A guidewire was inserted without any res istance. A 7-Lao sheath was then inserted over the guidewire without any resistance. The guidewire and dilator were removed. Then the right ventricular defibrillator lead was advanced into the RV and positioned into the RV apex under fluoroscopic guidance. There was adequate sensing and pacing threshold without any diaphragmatic stimulation with high output pacing. The 7 uzbek sheath was split under fluoroscopic guidance and the lead was fixated to the pectoralis muscle using 0 silk suture. Then, I flushed the pocket with copious amounts of vancomycin and saline wash and inspected for hemostasis. I then connected the RV lead to the new pulse generator making sure the pins were in appropriate position, passed set screws, and set screws were tightened. Then, I disconnected the pacemaker leads from the pacemaker and checked it intraoperatively, see below for results. I then connected the RA and left bundle leads to the new ICD generator making sure the pins were in appropriate position, passed set screws, and set screws were all tightened. I then placed the device in the pocket, making sure the leads were lying flat beneath the device. The incision was closed in a 3-layer fashion using 2-0 Vicryl interrupted suture, followed by 3-0 Vicryl interrupted suture, followed by 4-0 Monocryl. Primaseal dressing was placed. EQUIPMENT: 1. Explanted generator is a model [id number], serial number [id number], implanted 07/02/2024 2. The new pulse generator is a BudgefZarpo Assura [id number], serial number [id number] 3. RA lead Winkler UlitPace [id number]; SN: [id number] implanted 07/02/2024 4. RV ICD lead: Winkler Durata [id number]; SN: [id number] 5. Left bundle lead; Winkler Ulitpace [id number]; SN: [id number] implanted 07/02/2024 INTRAPROCEDURAL FINDINGS: 1. Right atrial lead, P waves 1.7 millivolts, impedance 360 ohms, threshold 1.0 volts at 0.5 milliseconds. 2. Right ventricular defibrillator lead, R waves 12mV; impedance 670 ohms, threshold 0.5 volts at 0.5 milliseconds. 3. Left bundle lead, impedance 470 ohms, threshold 0.75 volts at 0.5 milliseconds. FINAL MEASUREMENTS THROUGH THE DEVICE: 1. Right atrial lead, P waves 1.5 millivolts, impedance 340 ohms, threshold 0.75 volts at 0.4 milliseconds. 2. Right ventricular defibrillator lead, 12mV; impedance 680 ohms, threshold 0.55 volts at 0.4 milliseconds. 3. Left bundle lead, programmed unipolar, impedance 480 ohms, threshold 0.75 volts at 0.4 milliseconds. FINAL PARAMETERS: DDDR 60/130, right atrial amplitude 3.5 volts, pulse width 0.4 milliseconds, sensitivity 0.3 millivolts. Right ventricular defibrillator lead amplitude 3.5 volts, pulse width 0.4 milliseconds, sensitivity 0.3 millivolts. Left bundle lead amplitude 3.5 volts, pulse width 0.4 milliseconds. A VT monitor zone at 150 beats per minute for 30 detection intervals, a VT zone at 171bpm for 30 detection intervals and a VF zone at 230 beats per minute for 24detection intervals. IMPRESSION: Successful upgrade to a biventricular rate responsive implantable cardiac defibrillator along with peripheral venogram under fluoroscopic guidance secondary to syncope from sustained VT, intermittent CHB s/p ppm 07/02/2024, Chronic heart failure with reduced ejection fraction, [place] Heart Association class II. PLAN: Monitor the patient post-procedure. A 12-lead ECG, chest x-ray and recheck the device in a few hours. He cannot lift more than 10 pounds with left arm for 2 weeks. He cannot lift the left elbow or left shoulder for 1 month. He is to keep the dressing on and dry until his wound check.
== END 2024-07-07 15:10 | disposition home or self-care (01) | DRG 277 ==
LOC: ED 11:12 → 2S 15:05 → SUATTDRO 15:05
PROC: EPB.ICD (2024-07-04 15:30)

== ENCOUNTER 2024-07-31 07:09 | Inpatient (IN) ==
--- NOTE | 2024-07-31 07:26 | Emergency Department Note ---
Impression & Plan Generalized weakness, Fever, Leukocytosis, Elevated procalcitonin, Thrombocytopenia, Elevated lactic acid level, Elevated troponin ED Provider Note HISTORY OF PRESENT ILLNESS: Patient is a 69-year-old male presenting with weakness. Patient reports he has been feeling generally unwell for the last 36 hours. He reports that Tuesday night he broke out in a cold sweat and started having some foul-smelling urine. Denies any burning with urination. He states he was feeling generally unwell yesterday, but when he tried to get up today out of his chair he developed some substernal chest pain and shortness of breath. He proceeded to call 911. He states that he took Tylenol yesterday for his chills. Denies any recent sick contact exposures. Denies any abdominal pain, nausea or vomiting. Denies any chest pain currently. ROS: as above PHYSICAL EXAM: Constitutional: Patient appears in no acute distress. HENT: Head: Normocephalic and atraumatic. Eyes: EOMI, PERRL Mouth/Throat: Mucous membranes moist. Neck: Trachea midline. Neck supple. Cardiovascular: Paced rhythm. No murmurs, rubs or gallops. Intact distal pulses. Pulmonary/Chest: No respiratory distress. Breath sounds clear and equal bilaterally. No wheezes or rales. Abdominal: Abdomen soft, no tenderness, rebound or guarding. Musculoskeletal: No edema, tenderness or deformity noted. Skin: Warm and dry. No rash, erythema, pallor or cyanosis Psychiatric: Appropriate mood and affect for situation. Neurological: Alert and keenly responsive. CN II-XII grossly intact, moving all extremities equally and fully. MDM: - Vitals signs stable - History obtained via patient. History as above. - Chronic conditions affecting care: HTN; HLD; DM-2; chronic iron deficiency anemia; aortic stenosis (s/p TAVR in Jun 2024); AV block (s/p pacemaker); BPH; depression - Differential diagnoses include, but are not limited to: UTI; pneumonia; viral syndrome; ACS; pulmonary edema - Order placed for continuous cardiac monitoring. At this time, monitor showed rate of 90 bpm with normal sinus rhythm, per my interpretation. - External medical records reviewed. Discharge summary dated 07/07/2024 was reviewed. Patient was admitted for syncope and collapse secondary to ventricular tachycardia. - EKG image interpreted by myself showed paced rhythm. Rate 99 bpm. QT 380. 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 UA was obtained via straight cath - Viral respiratory panel negative - CXR image reviewed by myself showed some right perihilar infiltration, per my interpretation. Radiology reports chest x-ray is negative. - Blood cultures ordered. Patient given 1g IV tylenol for fever in ER. - Patient given 2.5L NS in ER. Patient sepsis fluid volume calculation based on ideal body weight is 2100 mL. - Given 2g IV Rocephin for antibiotic coverage. Unclear source for patient's sepsis at this time. However, he did recent have an aortic valve replacement in early June. Will broaden antibiotic coverage to cefepime and vancomycin. Patient will need echocardiogram in the inpatient setting. - Patient has no complaints of abdominal pain and no reproducible abdominal pain on examination. So though CT abdomen/pelvis was considered it was not obtained. - Discussion was had with mental health case manager about patient's case and need for admission - Hospitalist consulted for admission - Patient admitted to [facility] for further evaluation and management. ASSESSMENT AND PLAN: Diagnosis: Generalized weakness; fever; chest pain; leukocytosis; thrombocytopenia; elevated lactic acid; elevated troponin; elevated procalcitonin Plan: Admit Past Med/Surg History Problem List (Updated 07/31/24 @ 10:02 by Lubna Carter PA-C) Severe sepsis Elevated troponin (Acute) Elevated lactic acid level (Acute) Thrombocytopenia (Acute) Elevated procalcitonin (Acute) Leukocytosis (Acute) Fever (Acute) Generalized weakness (Acute) ICD (implantable cardioverter-defibrillator) in place Pacemaker Sustained ventricular fibrillation (Acute) Syncope and collapse (Acute) Chronic anemia Hypomagnesemia S/P TAVR (transcatheter aortic valve replacement) Ventricular tachycardia Syncope and collapse Aortic stenosis (Acute) Generalized weakness (Acute) Dizziness (Acute) Symptomatic severe aortic stenosis with normal ejection fraction Symptomatic anemia (Acute) Acute GI bleeding (Acute) Occult blood in stools Acute on chronic anemia Osteoarthritis of right knee Anemia (Acute) Medical History Aortic stenosis, severe BPH (benign prostatic hyperplasia) REMBERTO on CPAP Obesity Dyslipidemia HTN (hypertension) Diabetes mellitus, type II History of colon polyps BENIGN Scoliosis Osteoarthritis BPH (benign prostatic hyperplasia) GERD (gastroesophageal reflux disease) Not an issue recently Diabetes mellitus, type 2 Anemia Glaucoma RESOLVED S/P SURGICAL INTERVENTION Hyperlipidemia Sleep apnea CPAP, COMPLIANT. Surgical History History of tonsillectomy Hx of repair of rotator cuff "bilateral" History of total right knee replacement (TKR) History of cardiac cath ABNORMAL STRESS TEST IN 2017 - NO STENTS. 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) History of repair of rotator cuff RT/LEFT History of esophagogastroduodenoscopy (EGD) History of colonoscopy History of tooth extraction History of tonsillectomy History of adenoidectomy History of myringotomy Family History Grandmother (Maternal) Family history of diabetes mellitus Mother Family history of esophageal cancer Sister Family history of diabetes mellitus Social History Smoking Status: Former smoker Tobacco Type: Cigarettes Second Hand Exposure: No; Do You Dip or Chew Tobacco: No; Hx Alcohol Use: No Hx Substance Use: No Preferred Language: Uzbek Communication Ability: Effective 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 Beliefs That Will Affect Care: None marital status: Current Living Situation: Alone Current Living Situation Comment: currently in rehab facility Feels Safe at Home: Yes Assistive Devices: None Allergies Allergies Allergy/AdvReac Type Severity Reaction Status Date / Time nickel Allergy Unknown RASH Verified 07/04/24 15:10 tetanus toxoid, adsorbed Allergy Unknown ITCHING Verified 07/04/24 15:10 empagliflozin AdvReac Unknown URINARY Verified 07/04/24 15:10 [From Jardiance] TRACT INFECTION lisinopril AdvReac Unknown Cough Verified 07/04/24 15:10 polyethylene glycol 3350 AdvReac Unknown Verified 07/04/24 15:10 [From Miralax] Home Meds Home Medications Medication Instructions Recorded Confirmed dutasteride 0.5 mg capsule 0.5 mg PO QAM 08/11/18 07/31/24 metformin 1,000 mg tablet 1,000 mg PO BID 08/11/18 07/31/24 multivitamin 1 tab PO QAM 08/11/18 07/31/24 rosuvastatin 40 mg tablet 40 mg PO HS 08/11/18 07/31/24 glimepiride 2 mg tablet 2 mg PO QAM 08/22/20 07/31/24 tamsulosin 0.4 mg capsule 0.4 mg PO HS 10/01/20 07/31/24 timolol maleate 0.25 % eye drops 2 drp OPB DAILY 11/02/23 07/31/24 acetaminophen 500 mg tablet 1,000 mg PO DIRECTED PRN Pain 04/06/24 07/31/24 ##0 ascorbic acid (vitamin C) 1,000 mg 1 g PO BID 07/02/24 07/31/24 tablet (Vitamin C) aspirin 81 mg chewable tablet 81 mg PO DAILY 07/02/24 07/31/24 cholecalciferol (vitamin D3) 125 125 mcg PO DAILY 07/02/24 07/31/24 mcg (5,000 unit) tablet (Vitamin D3) folic acid 1 mg tablet 1 mg PO DAILY 07/02/24 07/31/24 cyanocobalamin (vitamin B-12) 1,000 mcg PO DAILY 07/04/24 07/31/24 1,000 mcg tablet (Vitamin B-12) furosemide 20 mg tablet 20 mg PO DAILY PRN Weight Gain 07/04/24 07/31/24 latanoprost 0.005 % eye drops 1 drp ophthalmic (eye) HS 07/04/24 07/31/24 pantoprazole 40 mg tablet,delayed 40 mg PO DAILY 07/04/24 07/31/24 release amiodarone 200 mg tablet 200 mg PO DAILY 07/31/24 07/31/24 Previous Rx's Medication Instructions Recorded metoprolol succinate 50 mg 50 mg PO QAM 30 days #30 tabs 07/07/24 tablet,extended release 24 hr oxycodone 5 mg tablet 5 mg PO QID PRN SEVERE PAIN #15 07/07/24 tabs Results & Data (ED) Vital Signs Vital Signs - 24 hr 07/31/24 07:15 07/31/24 07:23 07/31/24 07:43 Temperature 39.3 C H Temperature Source Oral Pulse Rate 92 H 98 H Pulse Rate [Apical] Pulse Rhythm Regular Pulse Rhythm [Apical] Pulse Strength Normal Pulse Strength [Apical] Respiratory Rate 18 Respiratory Effort / Characteristics Non-Labored Spontaneous Respiratory Depth Normal Respiratory Pattern Regular Blood Pressure 126/72 Blood Pressure [Right Arm] Blood Pressure Mean 90 Blood Pressure Mean [Right Arm] Pulse Oximetry 94 94 Oxygen Delivery Method Room Air Room Air Sepsis Recent Fever Within 48 Hours No Sepsis New/Unexplained Change in Mental Status No Sepsis Action Taken by Nursing No Action Required 07/31/24 07:46 07/31/24 08:35 07/31/24 09:35 Temperature 36.8 C Temperature Source Oral Pulse Rate Pulse Rate [Apical] 91 H 92 H 90 Pulse Rhythm Pulse Rhythm [Apical] Regular Pulse Strength Pulse Strength [Apical] Normal Normal Respiratory Rate 19 19 18 Respiratory Effort / Characteristics Non-Labored Spontaneous Non-Labored Spontaneous Non-Labored Spontaneous Respiratory Depth Normal Normal Normal Respiratory Pattern Regular Regular Blood Pressure Blood Pressure [Right Arm] 133/75 138/56 L 136/77 Blood Pressure Mean Blood Pressure Mean [Right Arm] 94 83 96 Pulse Oximetry 95 96 95 Oxygen Delivery Method Room Air Room Air Room Air Sepsis Recent Fever Within 48 Hours Sepsis New/Unexplained Change in Mental Status Sepsis Action Taken by Nursing Laboratory Data 07/31/24 07:40 07/31/24 07:40 Lab Results 07/31/24 07/31/24 07/31/24 Range/Units 07:40 09:19 Unknown WBC 12.38 H (4.8-10.8) K/ul RBC 3.55 L (4.70-6.10) M/uL Hgb 8.4 L (14.0-18.0) g/dl Hct 28.5 L (42.0-52.0) % MCV 80.3 (80.0-100.0) fL MCH 23.7 L (25.0-34.0) pg MCHC 29.5 L (32.0-36.0) g/dL RDW Std Deviation 59.0 H (36.4-46.3) fL RDW Coeff of Freddie 20.7 H (11.5-14.5) % Plt Count 118 L (130-400) K/uL MPV 11.2 (9.4-12.4) fL Immature Gran % (Auto) 0.6 % Neut % (Auto) 92.7 % Lymph % (Auto) 1.7 % [place] % (Auto) 4.8 % Eos % (Auto) 0.0 % Baso % (Auto) 0.2 % Neut # (Auto) 11.46 H (1.40-6.50) K/uL Lymph # (Auto) 0.21 L (1.20-3.40) K/uL [place] # (Auto) 0.60 H (0.11-0.59) K/uL Eos # (Auto) 0.00 (0.00-0.50) K/uL Baso # (Auto) 0.03 (0.00-0.20) K/uL Immature Gran # (Auto) 0.08 (0.01-0.20) K/uL Platelet Estimate Decreased L (Normal) Polychromasia 1+ Anisocytosis Present Tear Drop Cells 1+ Ovalocytes 1+ PT 12.6 H (9.0-12.0) Seconds INR 1.2 H (0.9-1.1) Sodium 131 L (136-145) mmol/L Potassium 3.6 (3.5-5.1) mmol/L Chloride 97 L (98-107) mmol/L Carbon Dioxide 24 (21-32) mmol/L Anion Gap 10 (3-11) BUN 23 (6-23) mg/dl Creatinine 1.09 (0.6-1.4) mg/dl Est Cr Clr Drug Dosing 72.3 ml/min eGFR 72.56 BUN/Creatinine Ratio 21.1 H (10-20) Glucose 236 H (70-99(Fasting)) mg/dl Lactate 4.5 H* 2.1 H* (0.4-2.0) mmol/L Calcium 8.9 (8.6-10.3) mg/dl Magnesium 1.9 (1.7-2.4) mg/dl Total Bilirubin 1.8 H (0.2-1.0) mg/dl AST 21 (13-39) U/L ALT 16 (7-52) U/L Alkaline Phosphatase 62 (34-104) U/L Troponin I High Sens 31.9 H (0-20) pg/ml Total Protein 6.7 (6.0-8.3) gm/dl Albumin 4.0 (3.4-5.0) gm/dl Globulin 2.7 (2.5-4.0) gm/dl Albumin/Globulin Ratio 1.5 (0.9-2) Procalcitonin 2.27 H (0-0.5) ng/ml TSH 1.154 (0.300-4.500) uIu/ml Urine Color Yellow Urine Appearance Cloudy A (Clear) Urine pH 5.0 (4.5-7.5) Ur Specific [place] 1.022 (1.000-1.030) Urine Protein 3+ H (Negative) Urine Glucose (UA) Negative (Negative) Urine Ketones Negative (Negative) Urine Blood Trace H (Negative) Urine Nitrite Negative (Negative) Urine Bilirubin Negative (Negative) Urine Urobilinogen Negative (Negative) Ur Leukocyte Esterase Negative (Negative) Urine WBC (Auto) 0-5 (0-5) /hpf Urine RBC (Auto) 0-2 (0-2) /hpf U Hyaline Cast (Auto) 3-5 H (0-2) /lpf U Epithel Cells (Auto) 3-5 H (0-2) /hpf Urine Bacteria (Auto) None Seen (None Seen) Granular Casts Present A (None Prsent) /lpf Adenovirus (PCR) Not Detected (NotDetected) B. pertussis DNA (PCR) Not Detected (NotDetected) B.parapertussis DNA PCR Not Detected (NotDetected) C. pneumoniae DNA (PCR) Not Detected (NotDetected) Coronavirus OC43 (PCR) Not Detected (NotDetected) Coronavirus HKU1 (PCR) Not Detected (NotDetected) Coronavirus 229E (PCR) Not Detected (NotDetected) SARS-CoV-2 (PCR) Not Detected (NotDetected) Coronavirus NL63 (PCR) Not Detected (NotDetected) Human Metapneumovir PCR Not Detected (NotDetected) Influenza Type A (PCR) Not Detected (NotDetected) Influenza Type B (PCR) Not Detected (NotDetected) M. pneumoniae (PCR) Not Detected (NotDetected) Parainfluenza 1 (PCR) Not Detected (NotDetected) Parainfluenza 2 (PCR) Not Detected (NotDetected) Parainfluenza 3 (PCR) Not Detected (NotDetected) Parainfluenza 4 (PCR) Not Detected (NotDetected) RSV (PCR) Not Detected (NotDetected) Entero/Rhino (PCR) Not Detected (NotDetected) Administered Medications Sodium Chloride (Nss) 1,000 mls @ 999 mls/hr IV .Q1H1M ONE Stop: 07/31/24 10:15 Last Admin: 07/31/24 09:51 Dose: 999 mls/hr Documented By: Infusion: 07/31/24 09:51 Dose: Infused Documented By: Admin: 07/31/24 09:32 Dose: 999 mls/hr Documented By: BRIDGETT Sodium Chloride (Nss) 1,000 mls @ 999 mls/hr IV .Q1H1M ONE Stop: 07/31/24 10:35 Last Admin: 07/31/24 09:51 Dose: 999 mls/hr Documented By: BRIDGETT Discontinued Medications Acetaminophen (Ofirmev) 1,000 mg in 100 mls @ 400 mls/hr IV NOW STA Stop: 07/31/24 07:39 Last Infusion: 07/31/24 08:01 Dose: Infused Documented By: Admin: 07/31/24 07:45 Dose: 400 mls/hr Documented By: BRIDGETT Ceftriaxone Sodium (Rocephin) 2,000 mg in 50 mls @ 100 mls/hr IV NOW STA Stop: 07/31/24 09:44 Last Admin: 07/31/24 09:31 Dose: 100 mls/hr Documented By: BRIDGETT Imaging Data Radiologist's Impression: Chest X-Ray 07/31/24 07:24 XR chest 1V portable CLINICAL HISTORY: weakness COMPARISON STUDY: 07/04/2024 FINDINGS: Stable pacemaker. Stable cardiac valve repair. Stable mild cardiomegaly without pulmonary vascular congestion. No effusion, consolidation, or pneumothorax. IMPRESSION: No acute findings. ACT 112: Negative or not required by law. Electronically signed by: Raza Velazquez M.D. 07/31/2024 8:07 AM Discharge Plan Visit Data Chief Complaint: Weakness ED Provider: Kelli Stover Discharge Problem: Generalized weakness, Fever, Leukocytosis, Elevated procalcitonin, Thrombocytopenia, Elevated lactic acid level, Elevated troponin Forms Stand Alone Forms: My [facility] Prescriptions Prescriptions: No Action multivitamin Tablet 1 tab PO QAM Rx Instructions: otc unable to verify metformin 1,000 mg Tablet 1,000 mg PO BID dutasteride 0.5 mg Capsule 0.5 mg PO QAM rosuvastatin 40 mg Tablet 40 mg PO HS glimepiride 2 mg Tablet 2 mg PO QAM tamsulosin 0.4 mg Capsule 0.4 mg PO HS timolol maleate 0.25 % drops 2 drp OPB DAILY latanoprost 0.005 % drops 1 drp ophthalmic (eye) HS cyanocobalamin (vitamin B-12) [Vitamin B-12] 1,000 mcg Tablet 1,000 mcg PO DAILY Rx Instructions: otc unable to verify furosemide 20 mg tablet 20 mg PO DAILY PRN (Reason: Weight Gain) pantoprazole 40 mg tablet,delayed release (DR/EC) 40 mg PO DAILY metoprolol succinate 50 mg Tablet Extended Release 24 Hr 50 mg PO QAM 30 Days Qty: 30 1RF oxycodone 5 mg Tablet 5 mg PO QID PRN (Reason: SEVERE PAIN) Qty: 15 0RF Rx Instructions: last filled 07/07 4 day supply acetaminophen 500 mg Tablet 1,000 mg PO DIRECTED PRN (Reason: Pain) Qty: 0 Rx Instructions: otc unable to verify ascorbic acid (vitamin C) [Vitamin C] 1,000 mg Tablet 1 g PO BID Rx Instructions: otc unable to verify aspirin 81 mg Tablet,Chewable 81 mg PO DAILY Rx Instructions: otc unable to verify folic acid 1 mg Tablet 1 mg PO DAILY Rx Instructions: otc unable to verify cholecalciferol (vitamin D3) [Vitamin D3] 125 mcg (5,000 unit) Tablet 125 mcg PO DAILY Rx Instructions: otc unable to verify amiodarone 200 mg tablet 200 mg PO DAILY Referrals Referrals: Dcelan Dejesus MD [Primary Care Provider] -
[2024-07-31] MEDS: ACETAMINOPHEN 1,000 MG/100 ML VIAL IV STA (07:45)
--- NOTE | 2024-07-31 08:09 | XRay Report ---
XR chest 1V portable CLINICAL HISTORY: weakness COMPARISON STUDY: 07/04/2024 FINDINGS: Stable pacemaker. Stable cardiac valve repair. Stable mild cardiomegaly without pulmonary v ascular congestion. No effusion, consolidation, or pneumothorax. IMPRESSION: No acute findings. ACT 112: Negative or not required by law. Electronically signed by: Raza Velazquez M.D. 07/31/2024 8:07 AM
[2024-07-31 08:18] LABS: Albumin Globulin Ratio 1.5 (0.9-2); BUN Creatinine Ratio 21.1 (10-20); Bilirubin,Total 1.8 mg/dl (0.2-1.0); Calcium 8.9 mg/dl (8.6-10.3); Creatinine Clr Calc Pharmacy 72.3 ml/min; Globulin 2.7 gm/dl (2.5-4.0); Magnesium 1.9 mg/dl (1.7-2.4); Potassium 3.6 mmol/L (3.5-5.1); Total Protein 6.7 gm/dl (6.0-8.3)
[2024-07-31 08:24] LABS: Troponin I High Sensitivity 31.9 pg/ml (0-20)
[2024-07-31 08:27] LABS: INR 1.2 (0.9-1.1); Prothrombin Time 12.6 Seconds (9.0-12.0)
[2024-07-31 08:33] LABS: Thyroid Stimulating Hormone 1.154 uIu/ml (0.300-4.500)
[2024-07-31 08:39] LABS: Adenovirus PCR Not Detected (NotDetected); Bordetella parapertussis PCR Not Detected (NotDetected); Bordetella pertussis PCR Not Detected (NotDetected); Chlamydia pneumoniae PCR Not Detected (NotDetected); Coronavirus 229E PCR Not Detected (NotDetected); Coronavirus CoV-2 (COVID19)PCR Not Detected (NotDetected); Coronavirus HKU1 PCR Not Detected (NotDetected); Coronavirus NL63 PCR Not Detected (NotDetected); Coronavirus OC43PCR Not Detected (NotDetected); Human Metapneumovirus PCR Not Detected (NotDetected); Influenza A PCR Not Detected (NotDetected); Influenza B PCR Not Detected (NotDetected); Mycoplasma pneumoniae PCR Not Detected (NotDetected); Parainfluenza Virus 1 PCR Not Detected (NotDetected); Parainfluenza Virus 2 PCR Not Detected (NotDetected); Parainfluenza Virus 3 PCR Not Detected (NotDetected); Parainfluenza Virus 4 PCR Not Detected (NotDetected); Respiratory Syncytial VirusPCR Not Detected (NotDetected); Rhinovirus/Enterovirus PCR Not Detected (NotDetected)
[2024-07-31 08:46] LABS: Anisocytosis Present; Basophils # (auto) 0.03 K/uL (0.00-0.20); Basophils % (auto) 0.2 %; Hematocrit (blood only) 28.5 % (42.0-52.0); Hemoglobin 8.4 g/dl (14.0-18.0); Immature Granulocytes # (auto) 0.08 K/uL (0.01-0.20); Immature Granulocytes % (auto) 0.6 %; Lymphocytes # (auto) 0.21 K/uL (1.20-3.40); Lymphocytes % (auto) 1.7 %; Mean Corpuscular Hemoglobin 23.7 pg (25.0-34.0); Mean Corpuscular Hgb Conc 29.5 g/dL (32.0-36.0); Mean Corpuscular Volume 80.3 fL (80.0-100.0); Mean Platelet Volume 11.2 fL (9.4-12.4); Monocytes % (auto) 4.8 %; Neutrophils # (auto) 11.46 K/uL (1.40-6.50); Neutrophils % (auto) 92.7 %; Ovalocytes 1+; Platelet Count 118 K/uL (130-400); Platelet Estimate Decreased (Normal); Polychromasia 1+; RDW Coefficient of Variation 20.7 % (11.5-14.5); Red Blood Count 3.55 M/uL (4.70-6.10); Tear Drop Cells 1+; White Blood Count 12.38 K/ul (4.8-10.8)
--- OUTSIDE RECORDS SUMMARY | 2024-07-31 08:59 | External Medical Summary | Summary of Care ---
Author Name Unknown Organization [facility] Address [address] [place] [address] Phone [phone] Care Team Providers Care Party Plan Selling Distributor Name Role Phone Declan Dejesus MD Primary Care Provider [phone] Reason for Visit * Reason Comments IV Therapy Venofer 2/ Encounter Details Date Type Department Care Team (Latest Contact Info) Description 07/27/2024 8:30 AM EDT Hem/Onc Treatment Hematology/Oncology Treatment, [address] [phone] Susie, Chair 11 Hem Onc [address] [address] Iron deficiency anemia due to chronic blood loss* Allergies Active Allergy Reactions Criticality Noted Date Comments Empagliflozin 10/06/2020 Fungal infection, urinary frequency Lisinopril Cough Polyethylene Glycol Other (Please comment) Low 04/26/2024 Severe gas Nickel Rash 09/13/2011 Tetanus Toxoids Rash 09/13/2011 documented as of this encounter (statuses as of 07/27/2024) Medications MULTI VITAMIN MENS PO TABS one by mouth daily Active Dutasteride 0.5 MG Oral Capsule (Avodart)Indicatio ns:BPH with obstruction/lower urinary tract symptoms Take 1 Capsule by mouth in the morning. 90 Capsule 3 05/10/2024 10:16 AM EST 08/19/19 24 Active Glimepiride 2 MG Oral Tablet (Amaryl) TAKE ONE TABLET BY MOUTH DAILY WITH BREAKFAST 90 Tablet 3 05/19/2024 3:36 PM EST 11/21/19 24 Active Latanoprost 0.005 % Ophthalmic Solution (Xalatan) Instill 1 drop into both eyes at bedtime 10 mL 3 07/17/2024 1:46 PM EST 01/18/20 24 Active Timolol Maleate 0.25 % Ophthalmic Solution (Timoptic) Instill 2 Drops into both eyes in the morning. 15 mL 3 05/15/2024 11:26 AM EST 02/13/20 24 Active Acetaminophen 500 MG Oral Capsule Take [...] 90 Tablet 3 05/03/2024 10:09 AM EST 05/02/20 24 Active metFORMIN HCl 1000 MG Oral Tablet (Glucophage)Indica tions:Type 2 diabetes mellitus with hemoglobin A1c goal of less than 7.0% (HCC) Take 1 Tablet by mouth in the morning and 1 Tablet before bedtime with meals 180 Tablet 3 05/03/2024 10:09 AM EST 05/02/20 24 Active CPAP every night at bedtime. Active Tamsulosin HCl 0.4 MG Oral Capsule (Flomax) Take 1 Capsule by mouth at bedtime. 90 Capsule 1 06/14/2024 6:43 PM EST 06/12/19 25 Active Pantoprazole Sodium 40 MG Oral Tablet Delayed Release (Protonix) Take 1 Tablet by mouth in the morning. 30 Tablet 1 06/12/19 25 Active Aspirin 81 MG Oral Tablet Chewable Chew & swallow 1 Tablet by mouth every morning. 30 Tablet 11 06/21/19 25 Active Vitamin B-12 1000 MCG Oral Tablet (Cyanocobalamin)In dications:Iron deficiency anemia due to chronic blood loss Take 1 Tablet by mouth in the morning. 90 Tablet 3 06/29/2024 3:45 PM EST 06/26/19 25 Active Folic Acid 1 MG Oral TabletIndications: Iron deficiency anemia due to chronic blood loss Take 1 Tablet by mouth in the morning. 90 Tablet 3 06/29/2024 3:45 PM EST 06/26/19 Active Furosemide 20 MG Oral Tablet (Lasix) Take 1 Tablet by mouth daily as needed (leg swelling and weight gain). 30 Tablet 3 06/29/19 Active Amoxicillin 500 MG Oral Capsule (Amoxil) Take 4 capsules 1 hour prior to any dental work/cleaning. 4 Capsule 3 06/29/19 25 Active Additional Information Patient not taking.Reported on 07/26/2024 Amiodarone HCl 200 MG Oral Tablet (Cordarone) Take 1 Tablet by mouth in the morning and 1 Tablet at noon and 1 Tablet before bedtime. Reduce to 200mg daily starting July 21 2024. Active Docusate Sodium 100 MG Oral Capsule (Colace) Take 1 Capsule by mouth in the morning and 1 Capsule before bedtime. For 7 days. Active Metoprolol Succinate 50 MG Oral Capsule ER 24 Hour Sprinkle Take 50 mg by mouth in the morning. Active documented as of this encounter (statuses as of 07/27/2024) Active Problems Problem Noted Date Diagnosed Date Glaucoma 06/26/2024 Pulmonary emphysema 06/26/2024 S/P TAVR (transcatheter aortic valve replacement ) 06/20/2024 History of arteriovenous malformation (AVM) 05/17 Edema of right lower leg 06/07/2024 Atherosclerosis of [place] ronary artery without angina pectoris 05/11/2024 [...] as of this encounter (statuses as of 07/27/2024) Resolved Problems Problem Noted Date Diagnosed Date Resolved Date Primary open-angle glaucoma, right eye, moderate stage 10/16/2020 08/15/2023 Overview (08/15/2023): Noted on pl as OU moderate Glaucoma 08/27/2013 06/07/2022 Overview (06/07/2022): More specific dx on pl HTN, goal below 140/80 07/03/201210/29 Overview: Per HTN Protocol documented as of this encounter (statuses as of 07/27/2024) Immunizations Name Administration Dates Next Due COVID-19 mRNA, LNP-s, No Pre serve, 2-Dose Series (Moderna) 08/19/2020,07/22/2020 COVID-19, MRNA-LNP, PF, 50 M CG/0.5 mL, 12 YRS AND ABOVE, IM (MODERNA-Spikevax) 04/04/2023 COVID-19, mRNA, LNP-s, PF, B ooster, 100mcg/0.5mg (Moderna) 04/16/2021 Covid-19 Ad26, Single Dose (Sylvia/J&J) 08/19/2020,07/22/2020 Pneumococcal Conjugate Vacci ne, 20-valent ([id number]) 05/20/2023 Pneumococcal Polysaccharide PPV23 (Pneumovax) 03/11/2009,10/11/2008(Deferred: Patient Refused) Seasonal Influenza Vac., MDV , IM, 0.5 mL (Fluzone) 03/07/2016,06/15/2015,07/16/2013,05/17,05/05/2009(Deferred: Patient Refused) Seasonal Influenza, High Dos e, Trivalent, PF, IM (Fluzone HD) 07/17/2024 Seasonal Influenza, Quadriva lent Hd (Fluzone Hd) [...] Date Recorded PHQ Adult Total Score 0 07/24/2024 Hunger Vital Sign Answer Date Recorded Within [...] Sign Reading Time Taken Comments Blood Pressure 128/73 07/27/2024 8:45 AM EDT Pulse 60 07/27/2024 8:45 AM EDT Temperature 36.3 °C (97.3 °F) 07/27/2024 8:45 AM ED T Respiratory Rate 16 07/27/2024 8:45 AM EDT Oxygen Saturation 95% 07/27/2024 8:45 AM EDT Inhaled Oxygen Concentration - - Weight - - Height - - Body Mass Index - - documented in this encounter Functional Status * Are you deaf or do you have serious difficulty hearing? Answer Date of Assessment Author No 06/07/2024 11:53 PM EST Yeny Bowman RN * Are you blind or do you have serious difficulty seeing, even when wearing glasses? Answer Date of Assessment Author No 06/07/2024 11:53 PM EST Yeny Bowman RN * Do you have serious difficulty [...] doing errands alone such as visiting a doctor’s office or shopping? (15 years old or [...] Yeny Carrillo RN documented in this encounter Nursing Notes * Makayla Love RN - 07/27/2024 8:46 AM EDT Chair 8, Venofer 2/4. Aside from ongoing fatigue, pt has no new acute symptoms/concerns to report since last treatment. PIV established; Venofer infusing. Safety and Risk for Injury Patient will remain free from injury. Ensure appropriate safety devices are available. Provide and maintain safe environment. Patient instructed on use of heat and massage functions where applicable. Patient shown how to operate the heat function of the chair and to alert nursing staff if the chair feels too warm. Patient instructed on the risk of potential scott while using the heat function. documented in this encounter Plan of Treatment Upcoming Encounters Date Type Department Care Team (Late st Contact Info) Description 07/31/2024 10:00 AM EDT Laboratory Laboratory, Ashleigh Kamara [address] [phone] [place] Sotelo [address] [address] 08/01/2024 8:00 AM EDT Hem/Onc Treatment Hematology/Oncology Treatment, [place] [address] [facility] [place] [phone] Susie, Chair 5 Hem Onc Scenery [address] [facility] [place], [place] [address] 08/09/2024 12:30 PM EDT Hem/Onc Treatment Hematology/Oncology Treatment, [place] [address] [facility], [place] [phone] Susie, Chair 1 Hem Onc Scenery [address] [facility] [place], [place] [address] 08/09/2024 2:30 PM EDT Office Visit Hematology/Oncology [facility] [place] [address] [facility] [place], [place] [phone] Bruna Funk CRNP [address] [place], [place] [address] [address] 10/09/2024 10:00 AM EDT Cardiac Studies Cardiology, [facility] [address] [facility] [place] [address] Edvin Bradshaw [facility] [address] [facility] [place] [address] 10/17/2024 8:00 AM EDT Office Visit [facility] [address] [facility] [place] [phone] Declan Dejesus MD [address] [facility] [place] [address] 12/26/2024 9:30 AM EDT Cardiac Studies Cardiac Studies, [facility] [address] [place] [address] 12/31/2024 2:00 PM EDT Office Visit Cardiology, [facility] [address] [facility] [place] [address] Kareen Boyd CRNP [address] [place] [address] 07/29/2025 10:00 AM EDT Nurse Only Ancillary Department, Ashleigh Kamara [address] [phone] Ashleigh, Nurse [facility] Wellness [address] [facility] [place] [address] Health Maintenance Due Date Last Done Comments Alpha-1 Antitrypsin 1971 Sigmoidoscopy 1998 Lung Cancer Screening 2003 Fecal Occult Blood Test 01/14/2024 01/14/20 23, 01/13/2023, 01/15/2022, Additional history exists COVID-19 Vaccine ( season) 2024 04/04/2023, 04/16/2021, 08/19/2020, Additional history exists HbA1c 10/03/2024 04/05/2024, 06/0 09/2023, 10/19/2023, Additional history exists Albumin/Creatinine Ratio 03/26/2025 024, 01/04/2023, 07/05/2022, Additional history exists B-12 06/08/2025 06/08/2024, 1206/2023, 07/20/2023 O2 ASSESSMENT COMPLETED IN PAST YEAR FOR COPD 06/19/2025 06/19/2024 Adult Wellness Visit 07/24/2025 07/24/2024, 07/20/19 24 Depression Screening 07/24/2025 07/24/2024 Diabetic Foot Exam 07/24/2025 07/24/2024, 0 07/20/2023, 01/03/2017, Additional history exists Diabetic Eye Exam 07/25/2025 07/25/2024, , 07/13/2023, Additional history exists GFR 07/26/2025 07/26/2024, 03/0 07/2024, 06/20/2024, Additional history exists Cologuard 2026 2023, 05/16, 05/25/2023 Colonoscopy 05/02/2029 05/02/2024, 04/15, 06/29/2023, Additional history exists Colorectal Cancer Screening 05/02/2029 AAA Screening Completed 10/18/2018, 09/2018, 11/11/2014, Additional history exists Pneumococcal Vaccine: 50+ Years Completed 05/20/2023, 03/11/2009 Zoster Vaccines Completed 06/10/2023, 04/04/2023 Influenza Vaccine (FLU shot) Completed 08/2024, 04/04/2023, 03/11/2022, Additional history exists HPV (Gardasil) Vaccine Aged Out No lo [...] this encounter Medical Devices Implanted Type Area Painter Set Device Identifier Shelf Expiration Date Model / Serial / Lot Iol Mx60 14.0 Implanted:Qty: 1 on 10/19/2019 by Ankit Ny MD at OR [facility] Right: Eye 04/14/2020 MX60 / [id number] / [id number] Implanted:Qty: 1 on 10/30/2019 by Ankit Ny MD at OR [facility] Left: Eye 02/12/2021 MX60 / [id number] / [id number] Clip Ultra 360 235cm - [id number] Implanted:Qty: 1 on 05/02/2024 by Omid Bonner MD at OR [facility] Colon [employer] ENDOSCOPY [id number] 12/26/2026 [id number] / / [id number] Clip Ultra 360 235cm - [id number] Implanted:Qty: 1 on 05/02/2024 by Omid Bonner MD at OR [facility] Colon [employer] ENDOSCOPY [id number] 12/26/2026 [id number] / / [id number] Clip Ultra 360 235cm - [id number] Implanted:Qty: 1 on 05/02/2024 by Omid Bonner MD at OR [facility] Colon [employer] ENDOS[employer] [id number] 12/26/2026 [id number] / / [id number] Catheter Hemostatic 235cm 2.8mm [address]mm Cl[address] Latexfree - [id number] Implanted:Qty: 1 on 06/08/2024 by Belén Hernadez MD at OR [facility] [employer] ENDOS[employer] [id number] 01/01/2027 [id number] / / [id number] Clip Ultra 360 235cm - [id number] Implanted:Qty: 1 on 06/08/2024 by Belén Hernadez MD at OR [facility] [employer] ENDOS[employer] [id number] 03/06/2027 [id number] / / [id number] Catheter Hemostatic 235cm 2.8mm [address]mm [address] Latexfree - [id number] Implanted:Qty: 1 on 06/08/2024 by Belén Hernadez MD at OR [facility] [employer] ENDOS[employer] [id number] 01/30/2027 [id number] / / [id number] Clip Ultra 360 235cm - [id number] Implanted:Qty: 1 on 06/08/2024 by Belén Hernadez MD at OR [facility] [employer] [id number] 12/27/2026 [id number] / / [id number] Catheter Hemostatic 235cm 2.8mm [address] Latexfree - [id number] Implanted:Qty: 1 on 06/08/2024 by Belén Hernadez MD at OR [facility] [employer] ENDOS[employer] [id number] 01/30/2027 [id number] / / [id number] Clip Ultra 360 235cm - [id number] Implanted:Qty: 1 on 06/08/2024 by Belén Hernadez MD at OR [facility] [employer] ENDOS[employer] [id number] 12/27/2026 [id number] / / [id number] Clip Ultra 360 235cm - [id number] Implanted:Qty: 1 on 06/08/2024 by Belén Hernadez MD at OR [facility] [employer] ENDOS[employer] [id number] 12/26/2026 [id number] / / [id number] Clip Ultra 360 235cm - [id number] Implanted:Qty: 1 on 06/08/2024 by Belén Hernadez MD at OR [facility] [employer]OS[employer] [id number] 12/27/2026 [id number] / / [id number] Clip Hemostatic 18mm Assurance - [id number] Implanted:Qty: 1 on 06/08/2024 by Belén Hernadez MD at OR [facility] [employer] [id number] 01/02/2027 [id number] / [id number] Catheter Hemostatic 235cm 2.8mm [address] Latexfree - [id number] Implanted:Qty: 1 on 06/08/2024 by Belén Hernadez MD at OR [facility] [employer] [id number] 01/30/2027 [id number] / / [id number] Catheter Hemostatic 235cm 2.8mm [address] Latexfree - [id number] Implanted:Qty: 1 on 06/08/2024 by Belén Hernadez MD at OR [facility] [employer]OS[employer] [id number] 01/30/2027 [id number] / / [id number] Clip Hemostatic 11mm Assurance - [id number] Implanted:Qty: 1 on 06/08/2024 by Belén Hernadez MD at OR [facility] [employer] 11/14/2026 [id number] / [id number] Catheter Hemostatic 235cm 2.8mm [address] Latexfree - [id number] Implanted:Qty: 1 on 06/08/2024 by Belén Hernadez MD at OR [facility] [employer] ENDOS[employer] [id number] 01/01/2027 [id number] / / [id number] Catheter Hemostatic 235cm 2.8mm [address] Latexfree - [id number] Implanted:Qty: 1 on 06/08/2024 by Belén Hernadez MD at OR [facility] [employer] [id number] 01/30/2027 [id number] / / [id number] Valve Transcath Resilia 26mm - [id number] - [id number] Implanted:Qty: 1 on 06/19/2024 by Khang Mir MD at [facility] [employer] [id number] 09/27/2026 [id number] / [id number] / [id number] documented as of this encounter Visit Diagnoses Diagnosis Iron deficiency anemia due to chronic blood loss- Primary Iron deficiency anemia secondary to blood loss (chronic) documented in this encounter Administered Medications Active Administered Medications - up to 3 most recent administrations Medication Order MAR Action Action Date Dose Rate Site diphenhydrAMINE (Benadryl) inj 50 mg 50 mg, IV Push, ONCE PRN Other, Hypersensitivity Reaction, Starting on Tue07/27/24 at 0836, Until 07/28/24 at 0835, For 24 hoursIndications:Iron deficiency anemia due to chronic blood loss EPINEPHrine 1 MG/ML inj 0.3 mg 0.3 mg, Intramuscular, ONCE PRN Other, Hypersensitivity Reaction or Anaphylaxis, Starting on Tue07/27/24 at 0836, Until 07/28/24 at 0835, For 24 hoursIndications:Iron deficiency anemia due to chronic blood loss hEParin 100 UNIT/ML Lock Flush inj 500 Units 500 Units (5 mL), IV Lock, PRN Other, IV Flush, Starting on Tue07/27/24 at 0836, Until 07/28/24 at 0835, For 24 hours, Do not flush if lock, PICC, or central line not in place; IV infusing or unable to flush.Indications:Iron deficiency anemia due to chronic blood loss Hydrocortisone Sod Suc (PF) (Solu-Cortef) inj 100 mg 100 mg, IV Push, ONCE PRN Other, Hypersensitivity Reaction, Starting on Tue07/27/24 at 0836, Until 07/28/24 at 0835, For 24 hoursIndications:Iron deficiency anemia due to chronic blood loss NSS infusion 500 mL, Intravenous, at 50 mL/hr, CONTINUOUS, Starting on Tue07/27/24 at 0945, Until Tue07/27/24 at 1944Indications:Iron deficiency anemia due to chronic blood loss Start Infusion 07/27/2024 8:38 AM EDT 500 mL 50 mL/hr oxygen GAS Inhalation, OXYGEN, First dose on Tue07/27/24 at 0915, Until Discontinued, Device/Managed by: Low Flow Device, Goal SPO2 (%): 91-95, Starting Device: Nasal Cannula, Initial Flow Rate (LPM): 2, Lowest Support: Nasal Cannula: Flow 0-6 LPM. Titrate up/down by 1 LPM., Higher Support: Non-Rebreather (NRB) Mask: Minimum of 10 LPM. Titrate to maintain bag inflation., Titration Interval: Q2 minutes and as needed., Notify Provider: For sudden DECREASE in resting SPO2 to less than 85% and when escalating delivery device., Wean patient off Oxygen when the oxygen saturation is greater than or equal to 93%Indications:Iron deficiency anemia due to chronic blood loss sodium chloride 0.9 % flush central line 10 mL 10 mL, IV Push, PRN Other, IV Flush, Starting on Tue07/27/24 at 0836, Until 07/28/24 at 0835, For 24 hours, Do not flush if lock, PICC, or central line not in place; IV infusing or unable to flush.Indications:Iron deficiency anemia due to chronic blood loss Inactive Administered Medications - up to 3 most recent administrations Medication Order MAR Action Action Date Dose Rate Site Iron Sucrose (Venofer) 300 mg in NSS 250 mL ivpb 300 mg, IV Piggyback, ONCE, 1 dose, On Tue07/27/24 at 1015, Administer over 90 MinutesIndications:Iron deficiency anemia due to chronic blood loss Start Infusion 07/27/2024 8:41 AM EDT 300 mg 180 mL/hr documented in this encounter Advance Directives * Full Code [...] the patient have Health Care Power of Waiter/Waitress Head? Yes, not currently available * No Code Date Activated Date Inactivated Comments 05/01/2024 11:50 AM 05/02/2024 9:14 AM This orde r reflects the patients wishes and were consensually agreed upon. Question Answer Comments Discussion of Advance Directives occurred with: Patient Healthcare Agents on File Name Relationship Healthcare Agent [facility] p Communication Mattie Bracnh Adult Child First Alternat e Health Care Agent (per Health Care Power of Waiter/Waitress Head document) Care Teams Party Plan Selling Distributor Relationship Specialty Start Date End Date September, Declan Person MD [address] [facility] [place] [id number] PCP - General Family Medicine 05/20/23 documented as of this encounter
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
--- OUTSIDE RECORDS SUMMARY | 2024-07-31 08:59 | External Medical Summary | Summary of Care ---
Author Name Unknown Organization [facility] Address [address] [place] [address] Phone [phone] Care Team Providers Care Assistant Real Estate Manager Name Role Phone Declan Dejesus MD Primary Care Provider [phone] Encounter Details Date Type Department Care Team (Late st Contact Info) Description 07/30/2024 10:45 AM EDT Scheduled Telephone Care Coordination and Integration [address] [place], [place] [phone] Shara Ruiz, Community Health Ingot Weigher [address] [place], [place] [phone] Allergies Active Allergy Reactions Criticality Noted Date [...] of right lower leg 06/07/2024 Atherosclerosis of [place] co ronary artery without angina pectoris 05/11/2024 [...] (Sylvia/J&J) 08/19/2020,07/22/2020 Pneumococcal Conjugate Vacci ne, 20-valent (Ihujmdz44) 05/20/2023 Pneumococcal Polysaccharide PPV23 (Pneumovax) 03/11/2009,10/11/2008(Deferred: Patient [...] from today. * Shara Ruiz, Community Health Ingot Weigher - 07/30/2024 11:43 AM EDT Telemedicine visit: No Community Health Ingot Weigher (JHOAN) documentation: This Chw placed #3 f/u [...] Health Worker 1 Support Services/[facility] [employer] Plan [email or web address] documented in this encounter Plan of Treatment Upcoming Encounters Date Type Department Care Team (Late st Contact Info) Description 07/31/2024 10:00 AM EDT Laboratory Laboratory, [facility] Kamara [address] [phone] [facility] [address] [address] 08/01/2024 8:00 AM EDT Hem/Onc Treatment Hematology/[address], [address] [phone] Susie, Chair 5 Hem On[address] [place] [address] 08/09/2024 12:30 PM EDT Hem/Onc Treatment Hematology/Oncology Treatment, [place] [address] [facility] [phone] Susie, Chair 8 Hem Onc [facility] [address] [place] [address] [place] [address] 08/09/2024 2:30 PM EDT Office Visit Hematology/Oncology [facility] [address] [place] [phone] Bruna Funk CRNP [address] [facility] [place] [address] 10/09/2024 10:00 AM EDT Cardiac Studies Cardiology, [facility] [address] [facility] [place] [address] Edvin Bradshaw [facility] [address] [address] 10/17/2024 8:00 AM EDT Office Visit Family Practice, [facility]leigh Gallegos [address] [phone] Declan Dejesus MD [address] [address] 12/26/2024 9:30 AM EDT Cardiac Studies Cardiac Studies, [facility] [address] [place] [address] 12/31/2024 2:00 PM EDT Office Visit Cardiology, [facility] [address] [place] [address] Kareen Boyd CRNP [address] [place] [address] 07/29/2025 10:00 AM EDT Nurse Only Ancillary Department, [facility] Kamara [address] [phone] Ashleigh, Nurse Annual Wellness [address] [address] Health Maintenance Due Date Last Done Comments [...] this encounter Medical Devices Implanted Type Area Ehs Engineer Device Identifier Shelf Expiration Date Model / Serial / Lot Iol Mx60 14.0 Implanted:Qty: 1 on 10/19/2019 by Ankit Ny MD at OR [facility] Right: Eye 04/14/2020 MX60 / [id number] / Mx60 Implanted:Qty: 1 on 10/30/2019 by Ankit Ny MD at OR [facility] Left: Eye 02/12/2021 MX60 / [id number] / [id number] Clip Ultra 360 235cm - [id number] Implanted:Qty: 1 on 05/02/2024 by Omid Bonner MD at OR [facility] Colon [employer] : ENDOSCOPY [id number] 12/26/2026 [id number] / / [id number] Clip Ultra 360 235cm - [id number] Implanted:Qty: 1 on 05/02/2024 by Omid Bonner MD at OR [facility] Colon [employer] : ENDOSCOPY [id number] 12/26/2026 [id number] / / [id number] Clip Ultra 360 235cm - [id number] Implanted:Qty: 1 on 05/02/2024 by Omid Bonner MD at OR [facility] Colon [employer] ENDOSCOPY [id number] 12/26/2026 [id number] / / [id number] Catheter Hemostatic 235cm 2.8mm [address]mm [address] Latexfree - [id number] Implanted:Qty: 1 on 06/08/2024 by Belén Hernadez MD at OR [facility] [employer] ENDOSCOPY [id number] 01/01/2027 [id number] / / [id number] Clip Ultra 360 235cm - [id number] Implanted:Qty: 1 on 06/08/2024 by Belén Hernadez MD at OR [facility] [employer] ENDOSCOPY [id number] 03/06/2027 [id number] / / [id number] Catheter Hemostatic 235cm 2.8mm [address]mm [address] Latexfree - [id number] Implanted:Qty: 1 on 06/08/2024 by Belén Hernadez MD at OR [facility] [employer] ENDOSCOPY [id number] 01/30/2027 [id number] / / [id number] Clip Ultra 360 235cm - [id number] Implanted:Qty: 1 on 06/08/2024 by Belén Hernadez MD at OR [facility] [employer] ENDOS[employer] [id number] 12/27/2026 [id number] / / [id number] Catheter Hemostatic 235cm 2.8mm [address]mm [address] Latexfree - [id number] Implanted:Qty: 1 on 06/08/2024 by Belén Hernadez MD at OR [facility] [employer] ENDOSCOPY [id number] 01/30/2027 [id number] / / [id number] Clip Ultra 360 235cm - [id number] Implanted:Qty: 1 on 06/08/2024 by Belén Hernadez MD at OR [facility] [employer] ENDOSCOPY [id number] 12/27/2026 [id number] / / [id number] Clip Ultra 360 235cm - [id number] Implanted:Qty: 1 on 06/08/2024 by Belén Hernadez MD at OR [facility] [employer] ENDOSCOPY [id number] 12/26/2026 [id number] / / [id number] Clip Ultra 360 235cm - [id number] Implanted:Qty: 1 on 06/08/2024 by Belén Hernadez MD at OR [facility] [employer] ENDOS[employer] [id number] 12/27/2026 [id number] / / [id number] Clip Hemostatic 18mm Assurance - [id number] Implanted:Qty: 1 on 06/08/2024 by Belén Hernadez MD at OR [facility] [employer] [id number] 01/02/2027 [id number] Catheter Hemostatic 235cm 2.8mm [address] Latexfree - Implanted:Qty: 1 on 06/08/2024 by Belén Hernadez MD at OR [facility] [employer] ENDOSCOPY [id number] 01/30/2027 [id number] / / [id number] Catheter Hemostatic 235cm 2.8mm [address] Latexfree - [id number] Implanted:Qty: 1 on 06/08/2024 by Belén Hernadez MD at OR [facility] [employer] ENDOSCOPY [id number] 01/30/2027 [id number] / / [id number] Clip Hemostatic 11mm Assurance - [id number] Implanted:Qty: 1 on 06/08/2024 by Belén Hernadez MD at OR [facility] [employer] 11/14/2026 [id number] / / [id number] Catheter Hemostatic 235cm 2.8mm [address] Latexfree - [id number] Implanted:Qty: 1 on 06/08/2024 by Belén Hernadez MD at OR [facility] [employer] ENDOS[employer] [id number] 01/01/2027 [id number] / / [id number] Catheter Hemostatic 235cm 2.8mm [address]mm [address] Latexfree - [id number] Implanted:Qty: 1 on 06/08/2024 by Belén Hernadez MD at OR [facility] [employer] ENDOS[employer] [id number] 01/30/2027 [id number] / / [id number] Valve Transcath Resilia 26mm - [id number] - [id number] Implanted:Qty: 1 on 06/19/2024 by Khang Mir MD at [facility] [employer] [id number] 09/27/2026 [id number] / [id number] / [id number] documented as of this encounter Advance Directives [...] the patient have Health Care Power of Clinical Resource Coordinator? Yes, not currently available * No Code [...] Care Agent (per Health Care Power of Clinical Resource Coordinator document) Care Teams Assistant Real Estate Manager Relationship Specialty Start Date End Date September, Declan Person MD [address] [address] PCP - General Family Medicine 05/20/23 documented as of this encounter
--- OUTSIDE RECORDS SUMMARY | 2024-07-31 08:59 | External Medical Summary | Summary of Care ---
Author Name Unknown Organization [facility] Address [address] [place] [facility] [place] [address] Phone [phone] Care Team Providers Care Dock Associate Name Role Phone Declan Dejesus MD Primary Care Provider [phone] Reason for Visit * Reason Comments IV Therapy Venofer 2/ Encounter Details Date Type Department Care Team (Latest Contact Info) Description 07/27/2024 8:30 AM EDT Hem/Onc Treatment Hematology/Oncology Treatment, [address] [phone] Susie, Chair 11 Hem On[address] [address] Iron deficiency anemia due to chronic blood [...] of right lower leg 06/07/2024 Atherosclerosis of [place] co ronary artery without angina pectoris 05/11/2024 [...] (Sylvia/J&J) 08/19/2020,07/22/2020 Pneumococcal Conjugate Vacci ne, 20-valent (Rymoyli32) 05/20/2023 Pneumococcal Polysaccharide PPV23 (Pneumovax) 03/11/2009,10/11/2008(Deferred: Patient [...] Laboratory Laboratory, Ashleigh Kamara [address] [phone] [place] [address] [place] [address] 08/01/2024 8:00 AM EDT Hem/Onc Treatment Hematology/Oncology Treatment, [place] [address] [facility] [place] [phone] Susie, Chair 5 Hem Onc Scenery [address] [facility] [place], [place] [address] 08/09/2024 12:30 PM EDT Hem/Onc Treatment Hematology/Oncology Treatment, [place] [address] [facility] [place], [place] [phone] Susie, Chair 8 Hem Onc Scenery [address] [facility] [place] [address] 08/09/2024 2:30 PM EDT Office Visit Hematology/Oncology [facility] [place] [address] [facility] [place], [place] [phone] Bruna Funk CRNP [address] [place], [place] [address] [address] 10/09/2024 10:00 AM EDT Cardiac Studies Cardiology, [facility] [address] [facility] [place] [address] Edvin Bradshaw [facility] 132 [facility] [place] [address] 10/17/2024 8:00 AM EDT Office Visit [facility] [address] [facility] [place] [phone] Declan Dejesus MD [address] [facility] [place] [address] 12/26/2024 9:30 AM EDT Cardiac Studies Cardiac Studies, [facility] [address] [place] [address] 12/31/2024 2:00 PM EDT Office Visit Cardiology, [facility] [address] [facility] [place] [address] Kareen Boyd CRNP [address] [place] [address] 07/29/2025 10:00 AM EDT Nurse Only Ancillary Department, Ashleigh Kamara [address] [address] [phone] Ashleigh, Nurse Annual Wellness [facility] [place] [address] Health Maintenance Due Date Last Done Comments [...] this encounter Medical Devices Implanted Type Area [employer]ver [employer] Mold Device Identifier Shelf Expiration Date Model / Serial / Lot Iol Mx60 14.0 Implanted:Qty: 1 on 10/19/2019 by Ankit Ny MD at OR [facility] Right: Eye 04/14/2020 MX60 / [id number] / [id number] Implanted:Qty: 1 on 10/30/2019 by Ankit Ny MD at OR [facility] Left: Eye 02/12/2021 MX60 / [id number] / [id number] Clip Ultra 360 235cm - [id number] Implanted:Qty: 1 on 05/02/2024 by Omid Bonner MD at OR [facility] Colon [employer] ENDOSCOPY [id number] 12/26/2026 [id number] / / [id number] Clip Ultra 360 235cm - [id number] Implanted:Qty: 1 on 05/02/2024 by Omid Bonner MD at OR [facility] Colon [employer] : ENDOSCOPY [id number] 12/26/2026 [id number] / / [id number] Clip Ultra 360 235cm - [id number] Implanted:Qty: 1 on 05/02/2024 by Omid Bonner MD at OR [facility] Colon [employer] ENDOSCOPY [id number] 12/26/2026 [id number] / / [id number] Catheter Hemostatic 235cm 2.8mm 11mm Clip St Latexfree - [id number] Implanted:Qty: 1 on 06/08/2024 by Belén Hernadez MD at OR [facility] [employer] ENDOS[employer] [id number] 01/01/2027 [id number] / / [id number] Clip Ultra 360 235cm - [id number] Implanted:Qty: 1 on 06/08/2024 by Belén Hernadez MD at OR [facility] [employer] ENDOS[employer] [id number] 03/06/2027 [id number] / / [id number] Catheter Hemostatic 235cm 2.8mm 11mm Cl[address] Latexfree - [id number] Implanted:Qty: 1 on 06/08/2024 by Belén Hernadez MD at OR [facility] [employer] ENDOSCOPY [id number] 01/30/2027 [id number] / / [id number] Clip Ultra 360 235cm - [id number] Implanted:Qty: 1 on 06/08/2024 by Belén Hernadez MD at OR [facility] [employer] ENDOS[employer] [id number] 12/27/2026 [id number] / / [id number] Catheter Hemostatic 235cm 2.8mm 11mm [address] Latexfree - [id number] Implanted:Qty: 1 on 06/08/2024 by Belén Hernadez MD at OR [facility] [employer] ENDOSCOPY [id number] 01/30/2027 [id number] / / [id number] Clip Ultra 360 235cm - [id number] Implanted:Qty: 1 on 06/08/2024 by Belén Hernadez MD at OR [facility] [employer] ENDOS[employer] [id number] 12/27/2026 [id number] / / [id number] Clip Ultra 360 235cm - [id number] Implanted:Qty: 1 on 06/08/2024 by Belén Hernadez MD at OR [facility] [employer] ENDOS[employer] [id number] 12/26/2026 [id number] / / [id number] Clip Ultra 360 235cm - [id number] Implanted:Qty: 1 on 06/08/2024 by Belén Hernadez MD at OR [facility] [employer] ENDOS[employer] [id number] 12/27/2026 [id number] / / [id number] Clip Hemostatic 18mm Assurance - [id number] Implanted:Qty: 1 on 06/08/2024 by Belén Hernadez MD at OR [facility] [employer]IA [id number] 01/02/2027 [id number] / [id number] Catheter Hemostatic 235cm 2.8mm 11mm Cl[address] Latexfree - [id number] Implanted:Qty: 1 on 06/08/2024 by Belén Hernadez MD at OR [facility] [employer] ENDOS[employer] [id number] 01/30/2027 [id number] / / [id number] Catheter Hemostatic 235cm 2.8mm 11mm [address] Latexfree - [id number] Implanted:Qty: 1 on 06/08/2024 by Belén Hernadez MD at OR [facility] [employer] ENDOS[employer] [id number] 01/30/2027 [id number] / / [id number] Clip Hemostatic 11mm Assurance - [id number] Implanted:Qty: 1 on 06/08/2024 by Belén Hernadez MD at OR [facility] [employer] 11/14/2026 [id number] / [id number] Catheter Hemostatic 235cm 2.8mm [address]mm [address] Latexfree - [id number] Implanted:Qty: 1 on 06/08/2024 by Belén Hernadez MD at OR [facility] [employer] ENDOSCOPY [id number] 01/01/2027 [id number] / / [id number] Catheter Hemostatic 235cm 2.8mm 11mm Cl[address] Latexfree - [id number] Implanted:Qty: 1 on 06/08/2024 by Belén Hernadez MD at OR [facility] [employer] ENDOSCOPY [id number] 01/30/2027 [id number] / / [id number] Valve Transcath Resilia 26mm - [id number] - [id number] Implanted:Qty: 1 on 06/19/2024 by Khang Mir MD at [facility] [employer] [id number] 09/27/2026 [id number] / [id number] / [id number] documented as of this encounter Visit Diagnoses Diagnosis Iron deficiency anemia due to chronic blood loss- Primary Iron deficiency anemia secondary to blood loss (chronic) documented in this encounter Administered Medications Inactive Administered Medications - up to 3 most recent administrations Medication Order MAR Action Action Date Dose Rate Site Iron Sucrose (Venofer) 300 mg in NSS 250 mL ivpb 300 mg, IV Piggyback, ONCE, 1 dose, On Tue07/27/24 at 1015, Administer over 90 MinutesIndications:Iron deficiency anemia due to chronic blood loss Start Infusion 07/27/2024 8:41 AM EDT 300 mg 180 mL/hr NSS infusion 500 mL, Intravenous, at 50 mL/hr, CONTINUOUS, Starting on Tue07/27/24 at 0945, Until Tue07/27/24 at 1249Indications:Iron deficiency anemia due to chronic blood loss Start Infusion 07/27/2024 8:38 AM EDT 500 mL 50 mL/hr documented in this encounter Advance Directives [...] the patient have Health Care Power of Materials Inspector? Yes, not currently available * No Code Date Activated Date Inactivated Comments 05/01/2024 11:50 AM 05/02/2024 9:14 AM This orde r reflects the patients wishes and were consensually agreed upon. Question Answer Comments Discussion of Advance Directives occurred with: Patient Healthcare Agents on File Name Relationship Healthcare Agent [employer] p Communication Mattie Branch Adult Child First Alternat e Health Care Agent (per Health Care Power of Materials Inspector document) Care Teams Dock Associate Relationship Specialty Start Date End Date September, Declan Person MD [address] [facility] [place] [address] PCP - General Family Medicine 05/20/23 documented as of this encounter
--- OUTSIDE RECORDS SUMMARY | 2024-07-31 08:59 | External Medical Summary | Summary of Care ---
Author Name Unknown Organization [facility] Address [address] [place] [facility] [place] [place] [address] Phone [phone] Care Team Providers Care Crate Tier Name Role Phone Declan Dejesus MD Primary Care Provider [phone] Encounter Details Date Type Department Care Team (Late st Contact Info) Description 07/17/2024 Orders Only Hematology/Oncology Treatment, [place] [address] [place] [address] [facility]una [facility] [place] [address] Allergies Active Allergy Reactions Criticality Noted Date Comments Empagliflozin 10/06/2020 Fungal infection, urinary frequency Lisinopril Cough Polyethylene Glycol Other (Please comment) Low 04/26/2024 Severe gas Nickel Rash 09/13/2011 Tetanus Toxoids Rash 09/13/2011 documented as of this encounter (statuses as of 07/28/2024) Medications MULTI VITAMIN MENS PO TABS one [...] as of this encounter (statuses as of 07/28/2024) Active Problems Problem Noted Date Diagnosed Date Glaucoma 06/26/2024 Pulmonary emphysema 06/26/2024 S/P TAVR (transcatheter aortic valve replacement ) 06/20/2024 History of arteriovenous malformation (AVM) 05/17 Edema of right lower leg 06/07/2024 Atherosclerosis of [place] ronary artery without angina pectoris 05/11/2024 [...] as of this encounter (statuses as of 07/28/2024) Resolved Problems Problem Noted Date Diagnosed Date Resolved Date Primary open-angle glaucoma, right eye, moderate stage 10/16/2020 08/15/2023 Overview (08/15/2023): Noted on pl as OU moderate Glaucoma 08/27/2013 06/07/2022 Overview (06/07/2022): More specific dx on pl HTN, goal below 140/80 07/03/201210/29 Overview: Per HTN Protocol documented as of this encounter (statuses as of 07/28/2024) Immunizations Name Administration Dates Next Due COVID-19 mRNA, LNP-s, No Pre serve, 2-Dose Series (Moderna) 08/19/2020,07/22/2020 COVID-19, MRNA-LNP, PF, 50 M CG/0.5 mL, 12 YRS AND ABOVE, IM (MODERNA-Spikevax) 04/04/2023 COVID-19, mRNA, LNP-s, PF, B ooster, 100mcg/0.5mg (Moderna) 04/16/2021 Covid-19 Ad26, Single Dose (Sylvia/J&J) 08/19/2020,07/22/2020 Pneumococcal Conjugate Vacci ne, 20-valent (Jnrxxrv38) 05/20/2023 Pneumococcal Polysaccharide PPV23 (Pneumovax) 03/11/2009,10/11/2008(Deferred: Patient [...] Yeny Carrillo RN documented in this encounter Plan of Treatment Upcoming Encounters Date Type Department Care Team (Late st Contact Info) Description 07/31/2024 10:00 AM EDT Laboratory Laboratory, [address] [facility] [place] [phone] [facility] [place] [address] 08/01/2024 8:00 AM EDT [facility] [phone] Susie, Chair 5 Hem Onc Scenery [address] [place] [address] [place] [address] 08/09/2024 12:30 PM EDT Hem/Onc Treatment Hematology/Oncology Treatment, [place] [address] [facility] [phone] Susie, Chair 8 Hem Onc Scenery 200 [facility] [place] [address] 08/09/2024 2:30 PM EDT Office Visit Hematology/Oncology [facility] [place] [address] [facility] [phone] Bruna Funk CRNP [address] [facility] [place] [id number] 10/09/2024 10:00 AM EDT Cardiac Studies Cardiology, [facility] 132 [facility] [place] [address] Edvin [facility] 132 [facility] [place] [address] 10/17/2024 8:00 AM EDT Office Visit Family Practice, Ashleigh Gallegos [address] [place] [phone] Declan Dejesus MD [address] [place] [address] 12/26/2024 9:30 AM EDT Cardiac Studies Cardiac Studies, [facility] [address] [place] [address] 12/31/2024 2:00 PM EDT Office Visit [facility]iology, [facility] [place] [address] Kareen Boyd CRNP [address] [place] [address] 07/29/2025 10:00 AM EDT Nurse Only Ancillary Department, Ashleigh Kamara [address] [place] [phone] Ashleigh, Nurse Annual Wellness [address] [place] [address] Health Maintenance Due Date Last Done Comments [...] 06/19/2024 Adult Wellness Visit 07/24/2025 07/24/2024, 07/20/19 Depression Screening 07/24/2025 07/24/2024 Diabetic Foot Exam [...] this encounter Medical Devices Implanted Type Area Bargeman Device Identifier Shelf Expiration Date Model / Serial / Lot Iol Mx60 14.0 Implanted:Qty: 1 on 10/19/2019 by Ankit Ny MD at OR [facility] Right: Eye 04/14/2020 MX60 / [id number] / [id number] Implanted:Qty: 1 on 10/30/2019 by Ankit Ny MD at OR [facility] Left: Eye 02/12/2021 MX60 / [id number] / [id number] Clip Ultra 360 235cm - [id number] Implanted:Qty: 1 on 05/02/2024 by Omid Bonner MD at OR [facility] Colon [employer] ENDOSCOPY [id number] 12/26/2026 [id number] / / [id number] Clip Ultra 360 235cm - [id number] Implanted:Qty: 1 on 05/02/2024 by Omid Bonner MD at OR [facility] Colon [employer] ENDOSCOPY [id number] 12/26/2026 [id number] / / [id number] Clip Ultra 360 235cm - [id number] Implanted:Qty: 1 on 05/02/2024 by Omid Bonner MD at OR [facility] Colon [employer] ENDOSCOPY [id number] 12/26/2026 [id number] / / [id number] Catheter Hemostatic 235cm 2.8mm [address] Latexfree - [id number] Implanted:Qty: 1 on 06/08/2024 by Belén Hernadez MD at OR [facility] [employer] ENDOSCOPY [id number] 01/01/2027 [id number] / / [id number] Clip Ultra 360 235cm - [id number] Implanted:Qty: 1 on 06/08/2024 by Belén Hernadez MD at OR [facility] [employer] ENDOSCOPY [id number] 03/06/2027 [id number] / / [id number] Catheter Hemostatic 235cm 2.8mm [address]mm [address] Latexfree - [id number] Implanted:Qty: 1 on 06/08/2024 by Belén Hernadez MD at OR [facility] [employer] ENDOSCOPY [id number] 01/30/2027 [id number] / / [id number] Clip Ultra 360 235cm - [id number] Implanted:Qty: 1 on 06/08/2024 by Belén Hernadez MD at OR [facility] [employer] ENDOSCOPY [id number] 12/27/2026 [id number] / / [id number] Catheter Hemostatic 235cm 2.8mm [address] Latexfree - [id number] Implanted:Qty: 1 on 06/08/2024 by Belén Hernadez MD at OR [facility] [employer] ENDOSCOPY [id number] 01/30/2027 [id number] / / [id number] Clip Ultra 360 235cm - [id number] Implanted:Qty: 1 on 06/08/2024 by Belén Hernadez MD at OR [facility] [employer] ENDOSCOPY [id number] 12/27/2026 [id number] / / [id number] Clip Ultra 360 235cm - [id number] Implanted:Qty: 1 on 06/08/2024 by Belén Hernadez MD at OR [facility] [employer] ENDOSCOPY [id number] 12/26/2026 [id number] / / [id number] Clip Ultra 360 235cm - [id number] Implanted:Qty: 1 on 06/08/2024 by Belén Hernadez MD at OR [facility] [employer] ENDOSCOPY [id number] 12/27/2026 [id number] / / [id number] Clip Hemostatic 18mm Assurance - [id number] Implanted:Qty: 1 on 06/08/2024 by Belén Hernadez MD at OR [facility] [employer] [id number] 01/02/2027 [id number] / [id number] Catheter Hemostatic 235cm 2.8mm [address] Latexfree - [id number] Implanted:Qty: 1 on 06/08/2024 by Belén Hernadez MD at OR [facility] [employer] ENDOSCOPY [id number] 01/30/2027 [id number] / / [id number] Catheter Hemostatic 235cm 2.8mm [address] Latexfree - [id number] Implanted:Qty: 1 on 06/08/2024 by Belén Hernadez MD at OR [facility] [employer] ENDOSCOPY [id number] 01/30/2027 [id number] / / [id number] Clip Hemostatic 11mm Assurance - [id number] Implanted:Qty: 1 on 06/08/2024 by Belén Hernadez MD at OR [facility] [employer] 11/14/2026 [id number] / / [id number] Catheter Hemostatic 235cm 2.8mm [address] Latexfree - [id number] Implanted:Qty: 1 on 06/08/2024 by Belén Hernadez MD at OR [facility] [employer] ENDOS[employer] [id number] 01/01/2027 [id number] / / [id number] Catheter Hemostatic 235cm 2.8mm [address] Latexfree - [id number] Implanted:Qty: 1 on 06/08/2024 by Belén Hernadez MD at OR [facility] [employer] ENDOS[employer] [id number] 01/30/2027 [id number] / / [id number] Valve Transcath Resilia 26mm - [id number] - [id number] Implanted:Qty: 1 on 06/19/2024 by Khang Mir MD at [facility] [employer] [id number] 09/27/2026 [id number] / [id number] / [id number] documented as of this encounter Advance Directives [...] the patient have Health Care Power of Hand Alterations Tailor? Yes, not currently available * No Code Date Activated Date Inactivated Comments 05/01/2024 11:50 AM 05/02/2024 9:14 AM This orde r reflects the patients wishes and were consensually agreed upon. Question Answer Comments Discussion of Advance Directives occurred with: Patient Healthcare Agents on File Name Relationship Healthcare Agent [facility] p Communication Mattie Branch Adult Child First Alternat e Health Care Agent (per Health Care Power of Hand Alterations Tailor document) Care Teams Crate Tier Relationship Specialty Start Date End Date September, Declan Person MD [address] [place] [id number] PCP - General Family Medicine 05/20/23 documented as of this encounter
--- OUTSIDE RECORDS SUMMARY | 2024-07-31 08:59 | External Medical Summary | Summary of Care ---
Author Name Unknown Organization [facility] Address [address] [place] [address] Phone [phone] Care Team Providers Care Cow Trimmer Name Role Phone Declan Dejesus MD Primary Care Provider [phone] Encounter Details Date Type Department Care Team (Late st Contact Info) Description 07/26/2024 Result Scan Unspecified Department Divya Nation, DO [address] [facility] [place] [id number] <No scans attached> Allergies Active Allergy Reactions [...] of right lower leg 06/07/2024 Atherosclerosis of [place] co ronary artery without angina pectoris 05/11/2024 [...] (Sylvia/J&J) 08/19/2020,07/22/2020 Pneumococcal Conjugate Vacci ne, 20-valent ([id number]) 05/20/2023 Pneumococcal Polysaccharide PPV23 (Pneumovax) 03/11/2009,10/11/2008(Deferred: Patient [...] EDT Laboratory Laboratory, [address] [facility] [phone] [facility] [place] [address] 08/01/2024 8:00 AM EDT Hem[facility] [phone] Susie, Chair 5 Hem Onc [address] [place] [address] 08/09/2024 12:30 PM EDT Hem/Onc Treatment Hematology/Oncology Treatment, [place] [address] [facility] [phone] Susie, Chair 1 Hem Onc [address] [place] [address] 08/09/2024 2:30 PM EDT Office Visit Hematology/Oncology [facility] [place] [address] [facility] [place] [phone] Bruna Funk CRNP [address] [facility] [place] [address] 10/09/2024 10:00 AM EDT Cardiac Studies Cardiology, [facility] [address] [facility] [place] [address] [facility] [address] [facility] [place] [address] 10/17/2024 8:00 AM EDT Office Visit Family Practice, [address] [place] [phone] Declan Dejesus MD [address] [place] [address] 12/26/2024 9:30 AM EDT Cardiac Studies Cardiac Studies, [facility] [address] [place] [address] 12/31/2024 2:00 PM EDT Office Visit [facility], [facility] [place] [address] Kareen Boyd CRNP [address] [place] [address] 07/29/2025 10:00 AM EDT Nurse Only Ancillary Department, [place] [address] [place] [phone] Ashleigh, Nurse Annual Wellness [address] [place] [address] Health Maintenance Due Date Last Done Comments Alpha-1 Antitrypsin 1971 Sigmoidoscopy 1998 Lung Cancer Screening 2003 Fecal Occult Blood Test 01/14/2024 01/14/20 23, 01/13/2023, 01/15/2022, Additional history exists COVID-19 Vaccine ( season) 2024 04/04/2023, 04/16/2021, 08/19/2020, Additional history exists HbA1c 10/03/2024 04/05/2024, 09/2023, 10/19/2023, Additional history exists Albumin/Creatinine Ratio 03/26/2025 024, 01/04/2023, 07/05/2022, Additional history exists B-12 06/08/2025 06/08/2024, 06/2023, 07/20/2023 O2 ASSESSMENT [...] this encounter Medical Devices Implanted Type Area Overhead Door Technician Device Identifier Shelf Expiration Date Model / Serial / Lot Iol Mx60 14.0 Implanted:Qty: 1 on 10/19/2019 by Ankit Ny MD at OR [facility] Right: Eye 04/14/2020 MX60 / [id number] / Mx60 Implanted:Qty: 1 on 10/30/2019 by Ankit Ny MD at OR [facility] Left: Eye 02/12/2021 MX60 / [id number] / [id number] Clip Ultra 360 235cm - [id number] Implanted:Qty: 1 on 05/02/2024 by Omid Bonner MD at OR [facility] Colon [employer] : ENDOSCOPY [id number] 12/26/2026 [id number] / / [id number] Clip Ultra 360 235cm - [id number] Implanted:Qty: 1 on 05/02/2024 by Omid Bonner MD at OR [facility] Colon [employer] ENDOSCOPY [id number] 12/26/2026 [id number] / / [id number] Clip Ultra 360 235cm - [id number] Implanted:Qty: 1 on 05/02/2024 by Omid Bonner MD at OR [facility] Colon [employer] ENDOSCOPY [id number] 12/26/2026 [id number] / / [id number] Catheter Hemostatic 235cm 2.8mm [address]mm Cl[address] Latexfree - [id number] Implanted:Qty: 1 on 06/08/2024 by Belén Hernadez MD at OR [facility] [employer]OS[employer] [id number] 01/01/2027 [id number] / / [id number] Clip Ultra 360 235cm - [id number] Implanted:Qty: 1 on 06/08/2024 by Belén Hernadez MD at OR [facility] [employer] [id number] 03/06/2027 [id number] / / [id number] Catheter Hemostatic 235cm 2.8mm [address] Latexfree - [id number] Implanted:Qty: 1 on 06/08/2024 by Belén Hernadez MD at OR [facility] [employer] ENDOS[employer] [id number] 01/30/2027 [id number] / / [id number] Clip Ultra 360 235cm - [id number] Implanted:Qty: 1 on 06/08/2024 by Belén Hernadez MD at OR [facility] [employer] END[employer] [id number] 12/27/2026 [id number] / / [id number] Catheter Hemostatic 235cm 2.8mm [address] Latexfree - [id number] Implanted:Qty: 1 on 06/08/2024 by Belén Hernadez MD at OR [facility] [employer] ENDOS[employer] [id number] 01/30/2027 [id number] / / [id number] Clip Ultra 360 235cm - [id number] Implanted:Qty: 1 on 06/08/2024 by Belén Hernadez MD at OR [facility] [employer] ENDOS[employer] [id number] 12/27/2026 [id number] / / [id number] Clip Ultra 360 235cm - [id number] Implanted:Qty: 1 on 06/08/2024 by Belén Hernadez MD at OR [facility] [employer] ENDOS[employer] [id number] 12/26/2026 [id number] / / [id number] Clip Ultra 360 235cm - [id number] Implanted:Qty: 1 on 06/08/2024 by Belén Hernadez MD at OR [facility] [employer]OS[employer] [id number] 12/27/2026 [id number] / / [id number] Clip Hemostatic 18mm Assurance - [id number] Implanted:Qty: 1 on 06/08/2024 by Belén Hernadez MD at OR [facility] [employer] [id number] 01/02/2027 [id number] / / [id number] Catheter Hemostatic 235cm 2.8mm [address] Latexfree - [id number] Implanted:Qty: 1 on 06/08/2024 by Belén Hernadez MD at OR [facility] [employer] [id number] 01/30/2027 [id number] / / [id number] Catheter Hemostatic 235cm 2.8mm [address] Latexfree - [id number] Implanted:Qty: 1 on 06/08/2024 by Belén Hernadez MD at OR [facility] [employer] [id number] 01/30/2027 [id number] / / [id number] Clip Hemostatic 11mm Assurance - [id number] Implanted:Qty: 1 on 06/08/2024 by Belén Hernadez MD at OR [facility] [employer] 11/14/2026 [id number] / / [id number] Catheter Hemostatic 235cm 2.8mm [address] Latexfree - [id number] Implanted:Qty: 1 on 06/08/2024 by Belén Hernadez MD at OR [facility] [employer]OS[employer] [id number] 01/01/2027 [id number] / / [id number] Catheter Hemostatic 235cm 2.8mm [address] Latexfree - [id number] Implanted:Qty: 1 on 06/08/2024 by Belén Hernadez MD at OR [facility] [employer] ENDOS[employer] [id number] 01/30/2027 [id number] / / [id number] Valve Transcath Resilia 26mm - [id number] - [id number] Implanted:Qty: 1 on 06/19/2024 by Khang Mir MD at [facility] [employer] [id number] 09/27/2026 [id number] / [id number] / [id number] documented as of this encounter Procedures Procedure Name Priority Date/Time Associated Diagnosis Comments CARDIOLOGY SCANNED RESULT 07/26/2024 documented in this encounter Results * CARDIOLOGY SCANNED RESULT (07/26/2024) 07/26/2024 Divya Nation DO OTHER Final R esult documented in this encounter Advance Directives * [...] the patient have Health Care Power of Webmethods Consultant? Yes, not currently available * No Code Date Activated Date Inactivated Comments 05/01/2024 11:50 AM 05/02/2024 9:14 AM This orde r reflects the patients wishes and were consensually agreed upon. Question Answer Comments Discussion of Advance Directives occurred with: Patient Healthcare Agents on File Name Relationship Healthcare Agent [facility] p Communication Mattie Branch Adult Child First Alternat e Health Care Agent (per Health Care Power of Webmethods Consultant document) Care Teams Cow Trimmer Relationship Specialty Start Date End Date September, Declan Person MD [address] [facility] [place] [address] PCP - General Family Medicine 05/20/23 documented as of this encounter
--- OUTSIDE RECORDS SUMMARY | 2024-07-31 09:00 | External Medical Summary | Summary of Care ---
Author Name Unknown Organization [facility] Address [address] [address] Phone [phone] Care Team Providers Care Booster Operator Name Role Phone Declan Dejesus MD Primary Care Provider [phone] Reason for Referral * Precert (Diagnostic Medical) (Within 10 days (routine)) - Authorized Specialty Diagnoses / Procedures Referred By Contac t Referred To Contact Cardiac Studies Diagnoses S/P TAVR (transcatheter aortic valve replacement) Procedures ECHO, COMPLETE (2D), TRANS-THORACIC Kareen Boyd CRNP [address] [address] Phone: tel: fax: Referral ID Status Reason Start Date Expiration Date V isits Requested Visits Authorized [id number] Authorized Precert 12/18/2024 999 999 Reason for Visit * Reason Comments Follow Up Encounter Details Date Type Department Care Team (Late st Contact Info) Description 07/26/2024 9:30 AM EDT Office Visit Cardiology, [facility] [address] [place] [address] Kareen Boyd CRNP [address] [place] [address] Severe aortic stenosis*; S/P TAVR (transcatheter aortic valve replacement); Mobitz type 2 second degree AV block; Sustained VT (ventricular tachycardia) (HCC); Presence of automatic cardioverter/defibri llator (AICD); HTN, goal below 140/90 Allergies Active Allergy Reactions Criticality Noted Date Comments Empagliflozin 10/06/2020 Fungal infection, urinary frequency Lisinopril Cough Polyethylene Glycol Other (Please comment) Low 04/26/2024 Severe gas Nickel Rash 09/13/2011 Tetanus Toxoids Rash 09/13/2011 documented as of this encounter (statuses as of 07/27/2024) Medications MULTI VITAMIN MENS PO TABS one by mouth daily Active Dutasteride 0.5 MG Oral Capsule (Avodart)Indicati ons:BPH with obstruction/lower urinary tract symptoms Take 1 Capsule by mouth in the morning. 90 Capsule 3 4 10:16 AM EST 024 Active Glimepiride 2 MG Oral Tablet (Amaryl) TAKE ONE TABLET BY MOUTH DAILY WITH BREAKFAST 90 Tablet 3 5 3:36 PM EST 024 Active Latanoprost 0.005 % Ophthalmic Solution (Xalatan) Instill 1 drop into both eyes at bedtime 10 mL 3 5 1:46 PM EST 024 Active Timolol Maleate 0.25 % Ophthalmic Solution (Timoptic) Instill 2 Drops into both eyes in the morning. 15 mL 3 4 11:26 AM EST 024 Active Acetaminophen 500 MG Oral Capsule Take [...] mouth once a day 90 Tablet 3 4 10:09 AM EST 024 Active metFORMIN HCl 1000 MG Oral Tablet (Glucophage)Indic ations:Type 2 diabetes mellitus with hemoglobin A1c goal of less than 7.0% (HCC) Take 1 Tablet by mouth in the morning and 1 Tablet before bedtime with meals 180 Tablet 3 4 10:09 AM EST 024 Active CPAP every night at bedtime. Active Tamsulosin HCl 0.4 MG Oral Capsule (Flomax) Take 1 Capsule by mouth at bedtime. 90 Capsule 1 5 6:43 PM EST 025 Active Pantoprazole Sodium 40 MG Oral Tablet Delayed Release (Protonix) Take 1 Tablet by mouth in the morning. 30 Tablet 1 025 Active Aspirin 81 MG Oral Tablet Chewable Chew & swallow 1 Tablet by mouth every morning. 30 Tablet 11 025 Active Vitamin B-12 1000 MCG Oral Tablet (Cyanocobalamin)I ndications:Iron deficiency anemia due to chronic blood loss Take 1 Tablet by mouth in the morning. 90 Tablet 3 5 3:45 PM EST 025 Active Folic Acid 1 MG Oral TabletIndications :Iron deficiency anemia due to chronic blood loss Take 1 Tablet by mouth in the morning. 90 Tablet 3 5 3:45 PM EST 025 Active Furosemide 20 MG Oral Tablet (Lasix) Take 1 Tablet by mouth daily as needed (leg swelling and weight gain). 30 Tablet 3 025 Active Amoxicillin 500 MG Oral Capsule (Amoxil) Take 4 capsules 1 hour prior to any dental work/cleaning. 4 Capsule 3 025 Active Additional Information Patient not taking.Reported on [...] mg by mouth in the morning. Active oxyCODONE-Acetami nophen 5-325 MG Oral Tablet (Percocet) Take 1 Tablet by mouth every 4 hours as needed for Pain, Moderate. 20 Tablet 025 2024 Discontinued documented as of this encounter (statuses as of 07/27/2024) Active Problems Problem Noted Date Diagnosed Date Glaucoma 06/26/2024 Pulmonary emphysema 06/26/2024 S/P TAVR (transcatheter aortic valve replacement ) 06/20/2024 History of arteriovenous malformation (AVM) 05/17 Edema of right lower leg 06/07/2024 Atherosclerosis of kasaan co ronary artery without angina pectoris 05/11/2024 [...] (Sylvia/J&J) 08/19/2020,07/22/2020 Pneumococcal Conjugate Vacci ne, 20-valent ([id number]) 05/20/2023 Pneumococcal Polysaccharide PPV23 (Pneumovax) 03/11/2009,10/11/2008(Deferred: Patient [...] Sign Reading Time Taken Comments Blood Pressure 122/72 07/26/2024 8:59 AM EDT Pulse 60 07/26/2024 8:59 AM EDT Temperature - - Respiratory Rate - - Oxygen Saturation - - Inhaled Oxygen Concentration - - Weight 106.6 kg (235 lb) 07/26/2024 8:59 AM EDT Height - - Body Mass Index 34.7 07/24/2024 10:24 AM EDT documented in this encounter Functional Status * [...] documented in this encounter Progress Notes * Kareen Boyd CRNP - 07/26/2024 9:30 AM EDT 07/25/2024 Valve Clinic Return: 1 Month Primary Sign Maker: Cardiac Problems: Severe aortic stenosis s/p TAVR # 26mm Restrepo Roxana S3 Ultra Resilia valve (post dilated with oneadditional cc of volume) 06/19/24 Iron deficiency anemia LBBB HLD DM 2 HTN REMBERTO on CPAP HPI: Rafael Cantu is a 69 year old male presents for one month post TAVR follow up HOSPITAL COURSE (focused) 06/19-06/20/24: The patient presented to the hospital for an outpatient TAVR.Patient's procedure was completed without complications. After the procedure, CXRs were WNL. EKG post procedure were WNL. An echocardiogram was performed on POD#1 to assess the aortic valve replacement and showed normal functioning of the aortic valve. Repeat EKG prior to discharge showed no concerning conduction abnormalities. Patient was noted to have a 4 second sinus pause on tele the night ofTAVR. Patient with no additional pauses thereafter during hospitalization and remained HDS. Zio patch was ordered on discharge for additional evaluation. The patient otherwise remained stable and wasdischarged to home in stable condition on 06/20/2024. Patient was seen one week post TAVR by Ms. Lebron PA-C reporting that he wasn't feeling any improvement post TAVR. Complained of chest pain at rest, shortness of breath and fatigue. He also endorsed consuming a diet high in sodium including ham, potatoes, premade breakfast bowls, soda, and pours salt in his coffee, complained of lower extremity edema and weight gain. HANY noted Mobitz II Block, was asymptomatic and set up to see EP on 06/30. Review of Dr. Nation'snote recommended to move forward with placement of a dual chamber PPM which was scheduled for 07/02/24 at [facility]. Patient had a near syncopal episode on 07/04 and presented to the ER at [facility] after a remote device interrogation showed sustained VT on 07/02/24. His device was upgraded to an ICD on 07/04/2024. Presents today feeling fair. He just feels exhausted, endorses some dizziness today with ambulatinginto the building, but resolved quickly after he sat down. No chest pain or pressure. No palpitations. Endorses some tenderness at the IcD incision site. Diet: Recent subway sub, does add table salt to his coffee grounds. He has been trying to avoid canned foods. Not currently taking his Lasix. Mora he didn't need it. Weights have been stable per patient. EKG today shows AV paced rhythm. ICD site is closed, well approximated with no erythema, discharge or drainage. BP well controlled. Compliant on all medication therapies (excluding lasix as noted above) Recent echo reviewed showing preserved EF and stable functioning TAVR REVIEW OF SYSTEMS: See HPI for pertinent positives. All others negative other than those noted in the HPI. CONSTITUTIONAL: No change in weight, No weakness, No fatigue and No fevers, No sweats or chills. PULMONARY: No cough, sputum, or hemoptysis, No wheezing, No shortness or breath and No recent change in breathing. CARDIOVASCULAR: No chest pain, No dyspnea on exertion, No edema, No palpitations and No syncope. GASTROINTESTINAL: No abdominal pain, No change in bowel habits, No significant heartburn, No nausea, No vomiting, No diarrhea, No constipation, No blood in stools or black tarry stools. No dysphagia. HEMATOLOGIC: No abnormal bleeding and No bruising. NEUROLOGICAL: Normal balance, No headaches and No weakness. Review of patient's allergies indicates: Allergen Reactions Empagliflozin Fungal infection, urinary frequency Lisinopril Cough Nickel Rash Tetanus Toxoids Rash Miralax [Polyethylene Glycol] Other (Please comment) Severe gas Current Outpatient Medications Medication Sig Dispense Refill MULTI VITAMIN MENS PO TABS one by mouth daily Dutasteride 0.5 MG Oral Capsule (Avodart) Take 1 Capsule by mouth in the morning. 90 Capsule 3 Glimepiride 2 MG Oral Tablet (Amaryl) TAKE ONE TABLET BY MOUTH DAILY WITH BREAKFAST 90 Tablet 3 Latanoprost 0.005 % Ophthalmic Solution (Xalatan) Instill 1 drop into both eyes at bedtime 10 mL 3 Timolol Maleate 0.25 % Ophthalmic Solution (Timoptic) Instill 2 Drops into both eyes in the morning. 15 mL 3 Acetaminophen 500 MG Oral Capsule Take 2 Capsules by mouth every 4 hours as needed for Pain, Mild or Fever >38C(100.5F). Vitamin C 1000 MG Oral Tablet Take 1 Tablet by mouth 2 times a day. Zinc 50 MG Oral Tablet Take 1 Tablet by mouth in the morning. Vitamin D3 125 MCG (5000 UT) Oral Tablet Disintegrating Take 1 Tablet by mouth daily. Rosuvastatin Calcium 40 MG Oral Tablet (Crestor) take one tablet by mouth once a day 90 Tablet 3 metFORMIN HCl 1000 MG Oral Tablet (Glucophage) Take 1 Tablet by mouth in the morning and 1 Tablet before bedtime with meals 180 Tablet 3 CPAP every night at bedtime. Tamsulosin HCl 0.4 MG Oral Capsule (Flomax) Take 1 Capsule by mouth at bedtime. 90 Capsule 1 Pantoprazole Sodium 40 MG Oral Tablet Delayed Release (Protonix) Take 1 Tablet by mouth in the morning. 30 Tablet 1 Aspirin 81 MG Oral Tablet Chewable Chew & swallow 1 Tablet by mouth every morning. 30 Tablet 11 Vitamin B-12 1000 MCG Oral Tablet (Cyanocobalamin) Take 1 Tablet by mouth in the morning. 90 Tablet3 Folic Acid 1 MG Oral Tablet Take 1 Tablet by mouth in the morning. 90 Tablet 3 Furosemide 20 MG Oral Tablet (Lasix) Take 1 Tablet by mouth daily as needed (leg swelling and weight gain). 30 Tablet 3 Amiodarone HCl 200 MG Oral Tablet (Cordarone) Take 1 Tablet by mouth in the morning and 1 Tablet atnoon and 1 Tablet before bedtime. Reduce to 200mg daily starting July 21 2024. Docusate Sodium 100 MG Oral Capsule (Colace) Take 1 Capsule by mouth in the morning and 1 Capsule before bedtime. For 7 days. Metoprolol Succinate 50 MG Oral Capsule ER 24 Hour Sprinkle Take 50 mg by mouth in the morning. Amoxicillin 500 MG Oral Capsule (Amoxil) Take 4 capsules 1 hour prior to any dental work/cleaning. (Patient not taking: Reported on 07/26/2024) 4 Capsule 3 No current facility-administered medications for this visit. Past Medical History: Diagnosis Date Arthritis Diabetes mellitus (HCC) Dyslipidemia, goal LDL below 130 08/27/2013 Dyslipidemia, goal to be determined Glaucoma 08/27/2013 Hypertension Lumbago Major depressive disorder, single episode, moderate (HCC) Obesity Shortness of breath Type 2 diabetes mellitus (HCC) UTI (urinary tract infection) Family History Problem Relation Name Age of Onset Cancer Mother Cancer Stroke Father prostate cancer Diabetes Sister Diabetes Grandmother (Maternal) Eye Problems None Denies family hx of AMD, RD, glaucoma, or blindness Heart Disorder None Hypertension None Thyroid Disorder None Social History Socioeconomic History Marital status: Tobacco Use Smoking status: Former Current packs/day: 0.00 Average packs/day: 2.0 packs/day for 30.0 years (60.0 ttl pk-yrs) Types: Cigarettes Start date: 12/03/1982 Quit date: 12/03/2012 Years since quittin.6 Passive exposure: Past Smokeless tobacco: Never Vaping Use Vaping status: [...] Belt Yes Self-Exams No 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 (Adult - for ages 18 years and over): No Food Insecurity: No Food Insecurity (05/01/2024) Food Insecurity Worried About Running Out of Food in the Last Year: Never true Ran Out of Food in the Last Year: Never true Do you need food for this week? (Adult - for ages 18 years and over): No Transportation Needs: No Transportation Needs (05/01/2024) Transportation Needs Has lack of transportation kept you from medical appointments, meetings, work, or from getting things needed for daily living? Check all that apply. (Adult - for ages 18 years and over): No Recent Concern: Transportation Needs - Unmet Transportation Needs (05/01/2024) Transportation Needs Do you have trouble getting a ride to medical visits or work? (Adult - for ages 18 years and over):Sometimes True Has lack of transportation kept you from medical appointments, meetings, work, or from getting things needed for daily living? Check all that apply. (Adult - for ages 18 years and over): No Social Connections: Socially Integrated (04/10/2024) Social Connections How often do you feel lonely or isolated from those around you? (Adult - for ages 18 years and over): Sometimes Housing Stability: Low Risk (05/01/2024) Housing Stability Do you currently live in a fdc or have no steady place to sleep at night? (Adult - for ages 18 years and over): No Are you homeless or worried that you might be in the future? (Adult - for ages 18 years and over): No OBJECTIVE/PHYSICAL EXAMINATION: BP 122/72 | Pulse 60 | Wt 106.6 kg (235 lb) | BMI 34.70 kg/m² | BSA 2.28 m² General: No acute distress. A+Ox3. HEENT: Normocephalic. Atraumatic. PERRL. EOMI. Conjunctiva and sclera clear. NECK: No carotid bruits. No JVD. Carotid upstrokes are brisk. Heart: RRR. S1 and S2 noted. +1/6 systolic murmur. No rubs or gallops. PMI non displaced. Lungs: Clear to auscultation. No wheezes.No rhonchi. No rales. Abdomen: Normal bowel sounds. Soft. Nontender. No masses or organomegaly. No abdominal bruits. Extremities: +Trace edema. No clubbing or cyanosis. Pulses: radial=2/4, posterior tibial=2/4, dorsalis pedis = 2/4. NEURO: No focal deficits. PSYCH: Appropriate affect and insight. SKIN: Groin sites healed. Left ICD/pacer pocket site C/D/I. No erythema, discharge or drainage. DATA Labs & Imaging Reviewed Below: EKG 1 Week s/p TAVR 06/29/24 Sinus rhythm with 1st degree AV block with fusion complexes, 81 bpm LBBB ECHO 1 Month post TAVR (07/19/2024) Interpretation Summary The left ventricular cavity size is normal. The LV wall thickness is moderately increased (concentric). The left ventricular wall motion is normal. The qualitative LV ejection fraction is 55-59% (normal). The left ventricular diastolic function is mildly abnormal (grade I). The patient is status post TAVR with Roxana type prosthetic valve. Aortic valve prosthesis stenosis is absent. Trivial paravalvular aortic valve prosthesis regurgitation is present. The aortic root is borderline enlarged. The proximal ascending thoracic aorta is mildly enlarged. The mitral valve leaflets thickness is moderately increased. Moderate mitral regurgitation is present. Echo POD # 1 s/p TAVR 06/20/24 The examination is adequate to evaluate the referral indication. The qualitative LV ejection fraction is 55-59% (normal). No LV segmental wall motion abnormalities. The left ventricular diastolic function is mildly abnormal (grade I). The patient is status post TAVR with Roxana type prosthetic valve. Aortic valve prosthesis stenosis is absent. Significant aortic valve prosthesis regurgitation is absent. Ao V max = 2.44 m/s. mean PG = 11.4 mmHg. The ascending aorta is mildly dilated at 4.3 cm. Intra-Op TAVR Echo 06/19/24 This was an intraprocedural TTE performed during the deployment of a #26 Restrepo Roxana TAVR Pre-TAVR The examination is adequate to evaluate the referral indication. The qualitative LV ejection fraction is 55-59% (normal). No LV segmental wall motion abnormalities. Severe aortic stenosis was felt to be present on prior TTE. Doppler data could not confirm on this exam. Post-TAVR The patient is status post TAVR with Roxana type prosthetic valve. Aortic valve prosthesis stenosisis absent. Trivial paravalvular aortic valve prosthesis regurgitation is present. No pericardial effusion is noted. Pre-TAVR Cardiac Catheterization 05/29/24 * Mild luminal irregularities in the RCA, otherwise normal coronary arteries by angiography ASSESSMENT/PLAN: 69 year old year old male 1. Severe aortic stenosis 2. S/P TAVR (transcatheter aortic valve replacement) -Recent echo shows stable function -EKG with no acute changes. -Reports ongoing fatigue, but is noticing a small increase in functional capacity. -Labs and echo prior to next valve clinic return - EKG - ECHO, COMPLETE (2D), TRANS-THORACIC; Future - CBC; Future - BASIC METABOLIC PANEL; Future -Continue ASA -Discussed maintaining daily weights and adhering to a lower sodium diet. He is to alert us of any weight gain of 5lbs or greater in one week, significant swelling of lower extremities. May continue Furosemide on PRN plan 3. Mobitz type 2 second degree AV block 4. Sustained VT (ventricular tachycardia) (HCC) 5. Presence of automatic cardioverter/defibrillator (AICD -Underwent dual chamber PPM on 07/02, but then suffered a syncopal episode with a remote interrogation showing sustained VT during event. Upgraded on 07/04/24 with an ICD -incision site demonstrates routine healing without incident 6. HTN, goal below 140/90 -controlled SBE Prophylaxis: No routine dental work should be completed in the first 6 months after TAVR. However, if an acute issue arises, patient is to alert the valve team. Antibiotics are needed for all dental work: Amoxicillin 2g- Take 4 capsules 1 hour prior to any dental work Cephalexin 2g- Take 4 tablets 1 hour prior to any dental procedure. Penicillin and/or sulfa allergy: Azithromycin 500 mg (1 tablet) 30-60 mg prior to any dental work. DISPOSITION: Follow up 5 months (6mo valve clinic return) or if symptoms worsen/fail to improve. All questions were answered to the patients satisfaction. Patient advised to report to ED with any and all emergencies. The patient agrees to the above plan and will call with additional questions or concerns. CYNDI [facility] Cardiology, [address] [address] I spent a total of 40 minutes on the date of service in preparation, delivery, and documentation ofthe care provided to Rafael Cantu excluding any time spent in the performance of separately billedservices. This chart was completed in part utilizing [employer] Speech Voice Recognition Software. Grammatical errors, random word insertions, pronoun errors, and incomplete sentences are an occasional consequence of this system due to software limitations, ambient noise, and hardware issues. Any formal questions or concerns about the content, text, or information contained within the body of this dictation should be directly addressed to the provider for clarification. documented in this encounter Procedure Notes * Woody Sethi DO - 07/26/2024 9:08 AM EDTAssociated Order(s): EKG REASON FOR STUDY: 1m s/p TAVR;1m s/p TAVR CONCLUSIONS: AV dual-paced rhythm Abnormal ECG When compared with ECG [id number] 13:29, Electronic pacemaker detectedhas replacedSinus rhythm Ventricular Rate: 60 Atrial Rate: 24 QRS Duration: 166 QT/QTc: 482/482 ms P-R-T [place]: 0 : -25 : 17 degrees documented in this encounter Nursing Notes * Oberteuffer, Cori, SHIP YARD ELECTRICAL PERSON - 07/26/2024 8:56 AM EDT Examination Room: 7 Name: Rafael Cantu Date of : (1955) Reason for Visit: 1m Interim Hospitalization(s): none Problems/Concerns: fatigue Chest Pain/SOB: denied [facility] is a way you can talk to your provider online through e-mail. Would you like to sign up? I can activate it for you? ALREADY ACTIVE Patient was instructed to not get up on the exam table until directed and assisted by their provider; patient is to remain seated in the chair/ wheelchair/ exam table for fall prevention and safety reasons. Patient is aware to have assistance to step down off exam table with personnel. Patient voiced full comprehension of instructions. documented in this encounter Plan of Treatment Upcoming Encounters Date Type Department Care Team (Late st Contact Info) Description 07/27/2024 8:30 AM EDT Hem/Onc Treatment Hematology[address] [phone] Susie, Chair 11 Hem Onc [address] [facility] [place] [address] 07/31/2024 10:00 AM EDT Laboratory [facility], [place] [facility] [address] [facility] [place] [phone] [place], Laboratory [address] [facility] [place] [id number] 08/01/2024 8:00 AM EDT Hem/Onc Treatment Hematology/[address], [address] [phone] Susie, Chair 5 Hem Onc [address] [place] [address] 08/09/2024 12:30 PM EDT Hem/Onc Treatment Hematology/Oncology Treatment, [place] [address] [place] [phone] Susie, Chair 1 Hem Onc [facility] [address] [place] [address] 08/09/2024 2:30 PM EDT Office Visit Hematology/Oncology [facility] [place] [address] [place] [phone] Bruna Funk CRNP [address] [place] [address] 10/09/2024 10:00 AM EDT Cardiac Studies Cardiology, [facility] [address] [place] [address] Edvin Bradshaw [facility] [address] [facility] [place] [address] 10/17/2024 8:00 AM EDT Office Visit Family Practice, [facility] [address] [facility] [address] [phone] Declan Dejesus MD [address] [address] 12/26/2024 9:30 AM EDT Cardiac Studies Cardiac Studies, [facility] [address] [place] [address] 12/31/2024 2:00 PM EDT Office Visit Cardiology, [facility] [address] [place] [address] Kareen Boyd CRNP [address] [place] [address] 07/29/2025 10:00 AM EDT Nurse Only Ancillary Department, Ashleigh Kamara [address] [phone] Ashleigh Nurse Annual Wellness [address] [place] [address] Scheduled Orders Name Type Priority Associated Diagnoses Orde r Schedule ECHO, COMPLETE (2D), TRANS-THORACIC Echocardiology Routine S/P TAVR (transcatheter aortic valve replacement) Expected: 12/18/2024 (Approximate), Expires: 08/25/2026 Health Maintenance Due Date Last Done Comments [...] 07/13/2023, Additional history exists GFR 07/26/2025 07/26/2024, 030 07/2024, 06/20/2024, Additional history exists Cologuard 2026 [...] this encounter Medical Devices Implanted Type Area Dexigraph Operator Device Identifier Shelf Expiration Date Model / Serial / Lot Iol Mx60 14.0 Implanted:Qty: 1 on 10/19/2019 by Ankit Ny MD at OR [facility] Right: Eye 04/14/2020 MX60 / [id number] / [id number] Implanted:Qty: 1 on 10/30/2019 by Ankit Ny MD at OR [facility] Left: Eye 02/12/2021 MX60 / [id number] / [id number] Clip Ultra 360 235cm - [id number] Implanted:Qty: 1 on 05/02/2024 by Omid Bonner MD at OR [facility] Colon [employer] : ENDOSCOPY [id number] 12/26/2026 [id number] / / [id number] Clip Ultra 360 235cm - [id number] Implanted:Qty: 1 on 05/02/2024 by Omid Bonner MD at OR [facility] Colon [employer] : ENDOSCOPY [id number] 12/26/2026 [id number] / / [id number] Clip Ultra 360 235cm - [id number] Implanted:Qty: 1 on 05/02/2024 by Omid Bonner MD at OR [facility] Colon [employer] : ENDOSCOPY [id number] 12/26/2026 [id number] / / [id number] Catheter Hemostatic 235cm 2.8mm [address]mm Cl[address] Latex[employer] - [id number] Implanted:Qty: 1 on 06/08/2024 by Belén Hernadez MD at OR [facility] [employer] ENDOSCOPY [id number] 01/01/2027 [id number] / / [id number] Clip Ultra 360 235cm - [id number] Implanted:Qty: 1 on 06/08/2024 by Belén Hernadez MD at OR [facility] [employer] ENDOSCOPY [id number] 03/06/2027 [id number] / / [id number] Catheter Hemostatic 235cm 2.8mm [address] Late[employer] - [id number] Implanted:Qty: 1 on 06/08/2024 by Belén Hernadez MD at OR [facility] [employer] [id number] 01/30/2027 [id number] / / [id number] Clip Ultra 360 235cm - [id number] Implanted:Qty: 1 on 06/08/2024 by Belén Hernadez MD at OR [facility] [employer] [id number] 12/27/2026 [id number] / / [id number] Catheter Hemostatic 235cm 2.8mm 11mm Clip [address] Latexfree - [id number] Implanted:Qty: 1 on 06/08/2024 by Belén Hernadez MD at OR [facility] [employer] [id number] 01/30/2027 [id number] / / [id number] Clip Ultra 360 235cm - [id number] Implanted:Qty: 1 on 06/08/2024 by Belén Hernadez MD at OR [facility] [employer] [id number] 12/27/2026 [id number] / / [id number] Clip Ultra 360 235cm - [id number] Implanted:Qty: 1 on 06/08/2024 by Belén Hernadez MD at OR [facility] [employer] [id number] 12/26/2026 [id number] / / [id number] Clip Ultra 360 235cm - [id number] Implanted:Qty: 1 on 06/08/2024 by Belén Hernadez MD at OR [facility] [employer] [id number] 12/27/2026 [id number] / / [id number] Clip Hemostatic 18mm Assurance - [id number] Implanted:Qty: 1 on 06/08/2024 by Belén Hernadez MD at OR [facility] [employer] [id number] 01/02/2027 [id number] / / [id number] Catheter Hemostatic 235cm 2.8mm 11mm Cl[address] Latexfree - [id number] Implanted:Qty: 1 on 06/08/2024 by Belén Hernadez MD at OR [facility] [employer] END[employer] [id number] 01/30/2027 [id number] / / [id number] Catheter Hemostatic 235cm 2.8mm [address]mm [address] Latexfree - [id number] Implanted:Qty: 1 on 06/08/2024 by Belén Hernadez MD at OR [facility] [employer] END[employer] [id number] 01/30/2027 [id number] / / [id number] Clip Hemostatic 11mm Assurance - [id number] Implanted:Qty: 1 on 06/08/2024 by Belén Hernadez MD at OR [facility] [employer] 11/14/2026 [id number] / / [id number] Catheter Hemostatic 235cm 2.8mm 11mm Cl[address] Latexfree - [id number] Implanted:Qty: 1 on 06/08/2024 by Belén Hernadez MD at OR [facility] [employer] [id number] 01/01/2027 [id number] / / [id number] Catheter Hemostatic 235cm 2.8mm 11mm Cl[address] Latexfree - [id number] Implanted:Qty: 1 on 06/08/2024 by Belén Hernadez MD at OR [facility] [employer] [id number] 01/30/2027 [id number] / / [id number] Valve Transcath Resilia 26mm - [id number] - [id number] Implanted:Qty: 1 on 06/19/2024 by Khang Mir MD at [facility] [employer] [id number] 09/27/2026 [id number] / [id number] / [id number] documented as of this encounter Procedures Procedure Name Priority Date/Time Associated Diagnosis Comments HI ECG ROUTINE ECG W/LEAST 12 LDS W/I&R Routine 07/26/2024 9:08 AM EDT S/P TAVR (transcatheter aortic valve replacement) documented in this encounter Results * BASIC METABOLIC PANEL (07/26/2024 9:45 AM EDT) BUN 19 6 - 20 mg/dL 07/26/2024 1:13 PM EDT [facility] CREATININE 0.8 0.6 - 1.2 mg/dL 07/26/2024 1:13 PM EDT [facility] EGFR >90 >=60 mL/min 07/26/2024 1:13 PM EDT [facility] Comment:eGFR is calculated b ased on the CKD-EPI 2020 equation. SODIUM 139 135 - 146 mmol/L 07/26/2024 1:13 PM EDT [facility] POTASSIUM 4.5 3.5 - 5.1 mmol/L 07/26/2024 1:13 PM EDT [facility] CHLORIDE 102 98 - 107 mmol/L 07/26/2024 1:13 PM EDT [facility] CO2 23 22 - 32 mmol/L 07/26/2024 1:13 PM EDT [facility] ANION GAP 14 7 - 15 mmol/L 07/26/2024 1:13 PM EDT [facility] GLUCOSE 115 70 - 120 mg/dL 07/26/2024 1:13 PM EDT [facility] CALCIUM 9.9 8.4 - 10.2 mg/dL 07/26/2024 1:13 PM EDT [facility] Blood Venous blood specimen / Unknown Venipuncture / Unknown 07/26/2024 9:45 AM EDT 07/26/2024 9:45 AM EDT Kareen HANNA LAB BLOOD ORDERABLES Fi nal Result [facility] [place] [address] * (ABNORMAL) CBC (07/26/2024 9:45 AM EDT) WBC 9.25 4.00 - 10.80 K/uL 07/26/2024 9:57 AM EDT [facility] RBC 3.60 4.50 - 5.25 M/uL 07/26/2024 9:57 AM EDT [facility]10 HGB 8.7(L) 14.0 - 16.8 g/dL 07/26/2024 9:57 AM EDT [facility] HCT 30.2(L) 40.0 - 48.4 % 07/26/2024 9:57 AM EDT [facility]10 MCV 83.9 82.0 - 99.5 fL 07/26/2024 9:57 AM EDT [facility]10 MCH 24.2 27.0 - 34.0 pg 07/26/2024 9:57 AM EDT [facility]10 MCHC 28.8 32.0 - 36.0 g/dL 07/26/2024 9:57 AM EDT [facility] RDW 19.4 11.5 - 15.5 % 07/26/2024 9:57 AM EDT [facility]10 PLT 217 140 - 400 K/uL 07/26/2024 9:57 AM EDT [facility] MPV 11.7 6.6 - 11.1 fL 07/26/2024 9:57 AM EDT [facility] Blood Venous blood specimen / Unknown Venipuncture / Unknown 07/26/2024 9:45 AM EDT 07/26/2024 9:45 AM EDT Kareen HANNA LAB BLOOD ORDERABLES Fi nal Result Performing Organization Address [facility] Co de Phone Number [phone] [place] [address] * EKG (07/26/2024 9:08 AM EDT) 07/26/2024 9:08 AM EDT Narrative Procedure Note Woody Sethi, DO - 07/26/2024 9:08 AM EDT REASON FOR STUDY: 1m s/p TAVR;1m s/p TAVR CONCLUSIONS: AV dual-paced rhythm Abnormal ECG When compared with ECG [id number] 13:29, Electronic pacemaker detectedhas replacedSinus rhythm Ventricular Rate: 60 Atrial Rate: 24 QRS Duration: 166 QT/QTc: 482/482 ms P-R-T [place]: 0 : -25 : 17 degrees Kareen HANNA EKG Final R esult Performing Organization Address [facility] de Phone Number [facility] documented in this encounter Visit Diagnoses Diagnosis Severe aortic stenosis- Primary Aortic valve disorders S/P TAVR (transcatheter aortic valve replacement) Heart valve replaced by other means Mobitz type 2 second degree AV block Mobitz (type) II atrioventricular block Sustained VT (ventricular tachycardia) (HCC) Paroxysmal ventricular tachycardia Presence of automatic cardioverter/defibrillator (AICD) Automatic implantable cardiac defibrillator in situ HTN, goal below 140/90 Unspecified essential hypertension documented in this encounter Advance Directives * [...] the patient have Health Care Power of Mold Finisher? Yes, not currently available * No Code Date Activated Date Inactivated Comments 05/01/2024 11:50 AM 05/02/2024 9:14 AM This orde r reflects the patients wishes and were consensually agreed upon. Question Answer Comments Discussion of Advance Directives occurred with: Patient Healthcare Agents on File Name Relationship Healthcare Agent [facility] Mattie Branch Adult Child First Alternat e Health Care Agent (per Health Care Power of Mold Finisher document) Care Teams Booster Operator Relationship Specialty Start Date End Date September, Declan Person MD [address] [facility] [place] [address] PCP - General Family Medicine 05/20/23 documented as of this encounter"
--- OUTSIDE RECORDS SUMMARY | 2024-07-31 09:00 | External Medical Summary | Summary of Care ---
Author Name Unknown Organization [facility] Address [address] [facility] [place] [address] Phone [phone] Care Team Providers Care Craft Center Director Name Role Phone Declan Dejesus MD Primary Care Provider [phone] Reason for Visit * Reason Comments Outpatient Testing Encounter Details Date Type Department Care Team (Late st Contact Info) Description 07/26/2024 10:10 AM EDT Laboratory Laboratory, [facility] [address] [facility] [phone] [facility] [address] [place] [address] S/P TAVR (transcatheter aortic valve replacement) Allergies Active Allergy Reactions Criticality Noted Date Comments Empagliflozin 10/06/2020 Fungal infection, urinary frequency Lisinopril Cough Polyethylene Glycol Other (Please comment) Low 04/26/2024 Severe gas Nickel Rash 09/13/2011 Tetanus Toxoids Rash 09/13/2011 documented as of this encounter (statuses as of 07/26/2024) Medications MULTI VITAMIN MENS PO TABS one [...] as of this encounter (statuses as of 07/26/2024) Active Problems Problem Noted Date Diagnosed Date Glaucoma 06/26/2024 Pulmonary emphysema 06/26/2024 S/P TAVR (transcatheter aortic valve replacement ) 06/20/2024 History of arteriovenous malformation (AVM) 05/17 Edema of right lower leg 06/07/2024 Atherosclerosis of [place] co ronary artery without angina pectoris 05/11/2024 [...] as of this encounter (statuses as of 07/26/2024) Resolved Problems Problem Noted Date Diagnosed Date Resolved Date Primary open-angle glaucoma, right eye, moderate stage 10/16/2020 08/15/2023 Overview (08/15/2023): Noted on pl as OU moderate Glaucoma 08/27/2013 06/07/2022 Overview (06/07/2022): More specific dx on pl HTN, goal below 140/80 07/03/201210/29 Overview: Per HTN Protocol documented as of this encounter (statuses as of 07/26/2024) Immunizations Name Administration Dates Next Due COVID-19 mRNA, LNP-s, No Pre serve, 2-Dose Series (Moderna) 08/19/2020,07/22/2020 COVID-19, MRNA-LNP, PF, 50 M CG/0.5 mL, 12 YRS AND ABOVE, IM (MODERNA-Spikevax) 04/04/2023 COVID-19, mRNA, LNP-s, PF, B ooster, 100mcg/0.5mg (Moderna) 04/16/2021 Covid-19 Ad26, Single Dose (Sylvia/J&J) 08/19/2020,07/22/2020 Pneumococcal Conjugate Vacci ne, 20-valent (Tuajgzm54) 05/20/2023 Pneumococcal Polysaccharide PPV23 (Pneumovax) 03/11/2009,10/11/2008(Deferred: Patient [...] Entry Date Author No 06/07/2024 11:53 PM Yney Carrillo RN documented in this encounter Plan of Treatment Upcoming Encounters Date Type Department Care Team (Late st Contact Info) Description 07/27/2024 8:30 AM EDT Hem/Onc Treatment Hematology/[address], [address] [phone] Susie, Chair 11 Hem Onc Scenery [address] [place] [address] [place] [address] 07/31/2024 10:00 AM EDT Laboratory Laboratory, [facility] [address] [facility] [address] [facility] [address] [place] [address] 08/01/2024 8:00 AM EDT Hem/Onc Treatment Hematology/Oncology Treatment, [address], [place] [address] Susie, Chair 5 Hem Onc Scenery [facility] [place] [address] 08/09/2024 12:30 PM EDT Hem/Onc Treatment Hematology/Oncology Treatment, [address], [place] [address] Susie, Chair 1 Hem Onc [facility] [place] [address] 08/09/2024 2:30 PM EDT Office Visit Hematology/Oncology [facility] [address] [address] [place] [phone] Bruna Funk CRNP [address] [place] [address] 10/09/2024 10:00 AM EDT Cardiac Studies Cardiology, [facility] [address] [facility] [place] [address] [facility] [address] [place] [address] 10/17/2024 8:00 AM EDT Office [facility] [address] [facility] [place] [phone] SeptemberDeclan MD [address] [place] [address] 12/26/2024 9:30 AM EDT Cardiac Studies Cardiac Studies, [facility] [address] [facility] [address] [place] [address] 12/31/2024 2:00 PM EDT Office Visit Cardiology, [facility] [address] [facility] [place] [address] Kareen Boyd CRNP [address] [place] [address] 07/29/2025 10:00 AM EDT Nurse Only Ancillary Department, [facility] Kamara [address] [facility] [place] [phone] Ashleigh Nurse Annual Wellness [address] [place] [address] Pending Results Name Type Priority Associated Diagnoses Date /Time BASIC METABOLIC PANEL Lab Routine S/P TAVR (transcatheter aortic valve replacement) 07/26/2024 9:45 AM EDT Health Maintenance Due Date Last Done Comments [...] PAST YEAR FOR COPD 06/19/2025 06/19/2024 GFR 07/16/2025 07/16/2024, 09/2024, 06/19/2024, Additional history exists Adult Wellness Visit 07/24/2025 07/24/2024, 07/20/19 Depression Screening 07/24/2025 07/24/2024 Diabetic Foot Exam 07/24/2025 07/24/2024, 0 07/20/2023, 01/03/2017, Additional history exists Diabetic Eye Exam 07/25/2025 07/25/2024, , 07/13/2023, Additional history exists Cologuard 2026 [...] this encounter Medical Devices Implanted Type Area Microbiology Lab Analyst Device Identifier Shelf Expiration Date Model / Serial / Lot Iol Mx60 14.0 Implanted:Qty: 1 on 10/19/2019 by Ankit Ny MD at OR [facility] Right: Eye 04/14/2020 MX60 / [id number] / [id number] Implanted:Qty: 1 on 10/30/2019 by Ankit Ny MD at OR [facility] Left: Eye 02/12/2021 MX60 / [id number] / [id number] Clip Ultra 360 235cm - [id number] Implanted:Qty: 1 on 05/02/2024 by Omid Bonner MD at OR [facility] Colon [employer]OS[employer] [id number] 12/26/2026 [id number] / / [id number] Clip Ultra 360 235cm - [id number] Implanted:Qty: 1 on 05/02/2024 by Omid Bonner MD at OR [facility] Colon [employer] [id number] 12/26/2026 [id number] / / [id number] Clip Ultra 360 235cm - [id number] Implanted:Qty: 1 on 05/02/2024 by Omid Bonner MD at OR [facility] Colon [employer] [id number] 12/26/2026 [id number] / / [id number] Catheter Hemostatic 235cm 2.8mm [address]mm [address] Latexfree - [id number] Implanted:Qty: 1 on 06/08/2024 by Belén Hernadez MD at OR [facility] [employer] [id number] 01/01/2027 [id number] / / [id number] Clip Ultra 360 235cm - [id number] Implanted:Qty: 1 on 06/08/2024 by Belén Hernadez MD at OR [facility] [employer] [id number] 03/06/2027 [id number] / / [id number] Catheter Hemostatic 235cm 2.8mm [address]mm [address] [employer]xfree - [id number] Implanted:Qty: 1 on 06/08/2024 by Belén Hernadez MD at OR [facility] [employer] [id number] 01/30/2027 [id number] / / [id number] Clip Ultra 360 235cm - [id number] Implanted:Qty: 1 on 06/08/2024 by Belén Hernadez MD at OR [facility] [employer] [id number] 12/27/2026 [id number] / / [id number] Catheter Hemostatic 235cm 2.8mm [address] [employer] - [id number] Implanted:Qty: 1 on 06/08/2024 by Belén Hernadez MD at OR [facility] [employer] [id number] 01/30/2027 [id number] / / [id number] Clip Ultra 360 235cm - [id number] Implanted:Qty: 1 on 06/08/2024 by Belén Hernadez MD at OR [facility] [employer] [id number] 12/27/2026 [id number] / / [id number] Clip Ultra 360 235cm - [id number] Implanted:Qty: 1 on 06/08/2024 by Belén Hernadez MD at OR [facility] [employer] [id number] 12/26/2026 [id number] / / [id number] Clip Ultra 360 235cm - [id number] Implanted:Qty: 1 on 06/08/2024 by Belén Hernadez MD at OR [facility] [employer] [id number] 12/27/2026 [id number] / / [id number] Clip Hemostatic 18mm Assurance - [id number] Implanted:Qty: 1 on 06/08/2024 by Belén Hernadez MD at OR [facility] [employer] [id number] 01/02/2027 [id number] / / [id number] Catheter Hemostatic 235cm 2.8mm [address] Latexfree - [id number] Implanted:Qty: 1 on 06/08/2024 by Belén Hernadez MD at OR [facility] [employer] [id number] 01/30/2027 [id number] / / [id number] Catheter Hemostatic 235cm 2.8mm [address] Latexfree - [id number] Implanted:Qty: 1 on 06/08/2024 by Belén Hernadez MD at OR [facility] [employer] [id number] 01/30/2027 [id number] / / [id number] Clip Hemostatic 11mm Assurance - [id number] Implanted:Qty: 1 on 06/08/2024 by Belén Hernadez MD at OR [facility] [employer] 11/14/2026 [id number] / / [id number] Catheter Hemostatic 235cm 2.8mm [address] [employer] - [id number] Implanted:Qty: 1 on 06/08/2024 by Belén Hernadez MD at OR [facility] [employer] [id number] 01/01/2027 [id number] / / [id number] Catheter Hemostatic 235cm 2.8mm [address] Latexfree - [id number] Implanted:Qty: 1 on 06/08/2024 by Belén Hernadez MD at OR [facility] [employer] [id number] 01/30/2027 [id number] / / [id number] Valve Transcath Resilia 26mm - [id number] - [id number] Implanted:Qty: 1 on 06/19/2024 by Khang Mir MD at [facility]ARDIAC LABS [facility] [employer] [id number] 09/27/2026 [id number] / [id number] / [id number] documented as of this encounter Procedures Procedure Name Priority Date/Time Associated Diagnosis Comments CBC Routine 07/26/2024 9:45 AM EDT S/P TAVR (transcatheter aortic valve replacement) documented in this encounter Results * (ABNORMAL) CBC (07/26/2024 9:45 AM EDT) WBC 9.25 4.00 - 10.80 K/uL 07/26/2024 9:57 AM EDT [facility] RBC 3.60 4.50 - 5.25 M/uL 07/26/2024 9:57 AM EDT [facility] [place] [facility]10 HGB 8.7(L) 14.0 - 16.8 g/dL 07/26/2024 9:57 AM EDT [facility] [place] [facility]10 HCT 30.2(L) 40.0 - 48.4 % 07/26/2024 9:57 AM EDT [facility]10 MCV 83.9 82.0 - 99.5 fL 07/26/2024 9:57 AM EDT [facility]10 MCH 24.2 27.0 - 34.0 pg 07/26/2024 9:57 AM EDT [facility]10 MCHC 28.8 32.0 - 36.0 g/dL 07/26/2024 9:57 AM EDT [facility]10 RDW 19.4 11.5 - 15.5 % 07/26/2024 9:57 AM EDT [facility]10 PLT 217 140 - 400 K/uL 07/26/2024 9:57 AM EDT [facility]10 MPV 11.7 6.6 - 11.1 fL 07/26/2024 9:57 AM EDT [facility]10 Blood Venous blood specimen / Unknown Venipuncture / Unknown 07/26/2024 9:45 AM EDT 07/26/2024 9:45 AM EDT us Kareen HANNA LAB BLOOD ORDERABLES Fi nal Result [facility] [facility] [place] [address] documented in this encounter Visit Diagnoses Diagnosis S/P TAVR (transcatheter aortic valve replacement) Heart valve replaced by other means documented in this encounter Advance Directives * [...] the patient have Health Care Power of County Surveyor? Yes, not currently available * No Code Date Activated Date Inactivated Comments 05/01/2024 11:50 AM 05/02/2024 9:14 AM This orde r reflects the patients wishes and were consensually agreed upon. Question Answer Comments Discussion of Advance Directives occurred with: Patient Healthcare Agents on File Name Relationship [facility] Mattie Branch Adult Child First Alternat e Health Care Agent (per Health Care Power of County Surveyor document) Care Teams Craft Center Director Relationship Specialty Start Date End Date September, Declan Person MD [address] [place] [address] PCP - General Family Medicine 05/20/23 documented as of this encounter
--- OUTSIDE RECORDS SUMMARY | 2024-07-31 09:02 | External Medical Summary | Summary of Care ---
Author Name Unknown Organization [facility] Address [address] [address] Phone [phone] Care Team Providers Care Heavy Forger Name Role Phone Declan Dejesus MD Primary Care Provider [phone] Encounter Details Date Type Department Care Team (Late st Contact Info) Description 07/17/2024 Orders Only [facility] [phone] Bruna Funk CRNP [address] [facility] [place] [address] Allergies Active Allergy Reactions Criticality Noted Date Comments Empagliflozin 10/06/2020 Fungal infection, urinary frequency Lisinopril Cough Polyethylene Glycol Other (Please comment) Low 04/26/2024 Severe gas Nickel Rash 09/13/2011 Tetanus Toxoids Rash 09/13/2011 documented as of this encounter (statuses as of 07/25/2024) Medications MULTI VITAMIN MENS PO TABS one [...] 10 mL 3 07/17/2024 1:46 PM EST 4 Active Timolol Maleate 0.25 % [...] 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 4 Capsule 3 5 Active oxyCODONE-Acetamin ophen 5-325 MG Oral Tablet (Percocet) Take 1 Tablet by mouth every 4 hours as needed for Pain, Moderate. 20 Tablet 5 Active Amiodarone HCl 200 MG Oral Tablet (Cordarone) [...] as of this encounter (statuses as of 07/25/2024) Active Problems Problem Noted Date Diagnosed Date Glaucoma 06/26/2024 Pulmonary emphysema 06/26/2024 S/P TAVR (transcatheter aortic valve replacement ) 06/20/2024 History of arteriovenous malformation (AVM) 05/17 Edema of right lower leg 06/07/2024 Atherosclerosis of jena co ronary artery without angina pectoris 05/11/2024 [...] as of this encounter (statuses as of 07/25/2024) Resolved Problems Problem Noted Date Diagnosed Date Resolved Date Primary open-angle glaucoma, right eye, moderate stage 10/16/2020 08/15/2023 Overview (08/15/2023): Noted on pl as OU moderate Glaucoma 08/27/2013 06/07/2022 Overview (06/07/2022): More specific dx on pl HTN, goal below 140/80 07/03/201210/29 Overview: Per HTN Protocol documented as of this encounter (statuses as of 07/25/2024) Immunizations Name Administration Dates Next Due COVID-19 mRNA, LNP-s, No Pre serve, 2-Dose Series (Moderna) 08/19/2020,07/22/2020 COVID-19, MRNA-LNP, PF, 50 M CG/0.5 mL, 12 YRS AND ABOVE, IM (MODERNA-Spikevax) 04/04/2023 COVID-19, mRNA, LNP-s, PF, B ooster, 100mcg/0.5mg (Moderna) 04/16/2021 Covid-19 Ad26, Single Dose (Sylvia/J&J) 08/19/2020,07/22/2020 Pneumococcal Conjugate Vacci ne, 20-valent ([id number]) 05/20/2023 Pneumococcal Polysaccharide PPV23 (Pneumovax) 03/11/2009,10/11/2008(Deferred: Patient [...] Team (Late st Contact Info) Description 07/26/2024 9:00 AM EDT Laboratory Laboratory, [facility] [address] [place] [phone] [facility] [address] [place] [address] 07/26/2024 9:30 AM EDT Office Visit Cardiology, [facility] [address] [place] [address] Kareen Boyd CRNP 132 [facility] [place] [address] 07/27/2024 8:30 AM EDT Hem/Onc Treatment Hematology/Oncology Treatment, [address], [place] [phone] Susie, Chair 11 Hem [address]c [address] [address] 07/31/2024 10:00 AM EDT Laboratory LaboratoryAshleigh [address] [place] [phone] [place] [address] [place] [address] 08/01/2024 8:00 AM EDT Hem/Onc Treatment [address]ematology[address] [phone] Susie, Chair 5 Hem Onc Scenery [address] [place], [place] [address] 08/09/2024 12:30 PM EDT Hem/Onc Treatment Hematology/Oncology Treatment, [place] [address] [place], [place] [phone] Susie, Chair 1 Hem Onc Scenery [address] [place], [place] [address] 08/09/2024 2:30 PM EDT Office Visit Hematology/Oncology [facility] [place] [address] [place], [place] [address] Bruna Funk CRNP [address] [facility] [place] [address] 10/09/2024 10:00 AM EDT Cardiac Studies Cardiology, [facility] [address] [facility] [place] [address] [facility] [address] [facility] [place] [address] 10/17/2024 8:00 AM EDT Office Visit Family Practice, [place]leigh Gallegos [address] [place] [phone] SeptemberDeclan MD [address] [place] [address] 07/29/2025 10:00 AM EDT Nurse Only Ancillary Department, [place] Kamara [address] [place] [phone] Ashleigh, Nurse Annual Wellness [address] [place] [address] Health Maintenance Due Date Last Done Comments Alpha-1 Antitrypsin 1971 Sigmoidoscopy 1998 Lung Cancer Screening 2003 Fecal Occult Blood Test 01/14/2024 01/14/20 23, 01/13/2023, 01/15/2022, Additional history exists COVID-19 Vaccine ( season) 2024 04/04/2023, 04/16/2021, 08/19/2020, Additional history exists HbA1c 10/03/2024 04/05/2024, 09/2023, 10/19/2023, Additional history exists Diabetic Eye [...] 07/24/2024, 0 07/20/2023, 01/03/2017, Additional history exists Cologuard 2026 2023, 05/16, [...] this encounter Medical Devices Implanted Type Area Cellophane Bath Mixer Device Identifier Shelf Expiration Date Model / Serial / Lot Iol Mx60 14.0 Implanted:Qty: 1 on 10/19/2019 by Ankit Ny MD at OR [facility] Right: Eye 04/14/2020 MX60 / [id number] / [id number] Implanted:Qty: 1 on 10/30/2019 by Ankit Ny MD at OR [facility] Left: Eye 02/12/2021 MX60 / [id number] / [id number] Clip Ultra 360 235cm - [id number] Implanted:Qty: 1 on 05/02/2024 by Omid Bonner MD at OR [facility] Colon [employer] ENDOSCOPY [id number] 12/26/2026 [id number] / / [id number] Clip Ultra 360 235cm - [id number] Implanted:Qty: 1 on 05/02/2024 by Omid Bonner MD at OR [facility] Colon [employer] ENDOSCOPY [id number] 12/26/2026 [id number] / / [id number] Clip Ultra 360 235cm - [id number] Implanted:Qty: 1 on 05/02/2024 by Omid Bonner MD at OR [facility] Colon [employer] ENDOS[employer] [id number] 12/26/2026 [id number] / / [id number] Catheter Hemostatic 235cm 2.8mm [address] Latexfree - [id number] Implanted:Qty: 1 on 06/08/2024 by Belén Hernadez MD at OR [facility] [employer] ENDOS[employer] [id number] 01/01/2027 [id number] / / [id number] Clip Ultra 360 235cm - [id number] Implanted:Qty: 1 on 06/08/2024 by Belén Hernadez MD at OR [facility] [employer] ENDOS[employer] [id number] 03/06/2027 [id number] / / [id number] Catheter Hemostatic 235cm 2.8mm [address] Latexfree - [id number] Implanted:Qty: 1 on 06/08/2024 by Belén Hernadez MD at OR [facility] [employer] ENDOS[employer] [id number] 01/30/2027 [id number] / / [id number] Clip Ultra 360 235cm - [id number] Implanted:Qty: 1 on 06/08/2024 by Belén Hernadez MD at OR [facility] [employer] ENDOS[employer] [id number] 12/27/2026 [id number] / / [id number] Catheter Hemostatic 235cm 2.8mm [address] Latexfree - [id number] Implanted:Qty: 1 on 06/08/2024 by Belén Hernadez MD at OR [facility] [employer] ENDOS[employer] [id number] 01/30/2027 [id number] / / [id number] Clip Ultra 360 235cm - [id number] Implanted:Qty: 1 on 06/08/2024 by Belén Hernadez MD at OR [facility] [employer] ENDOS[employer] [id number] 12/27/2026 [id number] / / [id number] Clip Ultra 360 235cm - [id number] Implanted:Qty: 1 on 06/08/2024 by Belén Hernadez MD at OR [facility] [employer] ENDOS[employer] [id number] 12/26/2026 [id number] / / [id number] Clip Ultra 360 235cm - [id number] Implanted:Qty: 1 on 06/08/2024 by Belén Hernadez MD at OR [facility] [employer] ENDOS[employer] [id number] 12/27/2026 [id number] / / [id number] Clip Hemostatic 18mm Assurance - [id number] Implanted:Qty: 1 on 06/08/2024 by Belén Hernadez MD at OR [facility] [employer] [id number] 01/02/2027 [id number] / / [id number] Catheter Hemostatic 235cm 2.8mm [address] Latexfree - [id number] Implanted:Qty: 1 on 06/08/2024 by Belén Hernadez MD at OR [facility] [employer] ENDOS[employer] [id number] 01/30/2027 [id number] / / [id number] Catheter Hemostatic 235cm 2.8mm [address] Latexfree - [id number] Implanted:Qty: 1 on 06/08/2024 by Belén Hernadez MD at OR [facility] [employer] ENDOS[employer] [id number] 01/30/2027 [id number] / / [id number] Clip Hemostatic 11mm Assurance - [id number] Implanted:Qty: 1 on 06/08/2024 by Belén Hernadez MD at OR [facility] [employer] 11/14/2026 [id number] / / [id number] Catheter Hemostatic 235cm 2.8mm [address] Latexfree - [id number] Implanted:Qty: 1 on 06/08/2024 by Belén Hernadez MD at OR [facility] [employer] ENDOS[employer] [id number] 01/01/2027 [id number] / / [id number] Catheter Hemostatic 235cm 2.8mm [address] Latexfree - [id number] Implanted:Qty: 1 on 06/08/2024 by Belén Hernadez MD at OR [facility] [employer] ENDOS[employer] [id number] 01/30/2027 [id number] / / [id number] Valve Transcath Resilia 26mm - [id number] - [id number] Implanted:Qty: 1 on 06/19/2024 by Khang Mir MD at [facility] [employer] [id number] 09/27/2026 [id number] / [id number] / [id number] documented as of this encounter Advance Directives [...] the patient have Health Care Power of Instrument Repair Specialist? Yes, not currently available * No Code Date Activated Date Inactivated Comments 05/01/2024 11:50 AM 05/02/2024 9:14 AM This orde r reflects the patients wishes and were consensually agreed upon. Question Answer Comments Discussion of Advance Directives occurred with: Patient Healthcare Agents on File Name Relationship [facility] Mattie Branch Adult Child First Alternat e Health Care Agent (per Health Care Power of Instrument Repair Specialist document) Care Teams Heavy Forger Relationship Specialty Start Date End Date September, Declan Person MD [address] [place] [address] PCP - General Family Medicine 05/20/23 documented as of this encounter
--- OUTSIDE RECORDS SUMMARY | 2024-07-31 09:02 | External Medical Summary ---
Author Name Unknown Address Unknown Organization [id number] [address] [place] [address] Laboratory Report Ordering Provider Test Date Status COLUMBA ALBARRAN 07/26/2024 09:45:42 Final Observation Date Value Abnormality Reference (Units ) Status WBC, Total 07/26/2024 09:45:42 9.25 4.00-10.8 0 (K/uL) Final RBC 07/26/2024 09:45:42 3.60 4.50-5.25 (M/uL) Final Hemoglobin 07/26/2024 09:45:42 8.7 Below low normal 14 .0-16.8 (g/dL) Final HCT 07/26/2024 09:45:42 30.2 Below low normal 40. 0-48.4 (%) Final MCV 07/26/2024 09:45:42 83.9 82.0-99.5 (fL) Final MCH 07/26/2024 09:45:42 24.2 27.0-34.0 (pg) Final MCHC 07/26/2024 09:45:42 28.8 32.0-36.0 (g/dL) Final RDW 07/26/2024 09:45:42 19.4 11.5-15.5 (%) Final Platelets 07/26/2024 09:45:42 217 140-400 (K /uL) Final MPV 07/26/2024 09:45:42 11.7 6.6-11.1 ( fL) Final [facility] [address] [place] [address]
--- OUTSIDE RECORDS SUMMARY | 2024-07-31 09:02 | External Medical Summary | Clinical Summary ---
Author Name Unknown Organization [facility] Address 1 [facility] [place] [address] Care Team Providers Care Wildlife Protector Name Role Phone AnjelicaDeclan MD Primary Care Provider [phone] Allergies Active Allergy Reactions Criticality Noted Date Comments Empagliflozin 10/06/2020 Fungal infection, urinary frequency Lisinopril Cough Polyethylene Glycol Other (Please comment) Low 04/26/2024 Severe gas Nickel Rash 09/13/2011 Tetanus Toxoids Rash 09/13/2011 Medications * This document contains information received from the source organization and may not represent a complete record from that organization. MULTI VITAMIN MENS PO TABS one by [...] Pain, Moderate. 20 Tablet 025 2024 Discontinued Active Problems Problem Noted Date Diagnosed Date [...] Overview (09/09/2015): ICD-10 update of inactive term Resolved Problems Problem Noted Date Diagnosed Date Resolved Date Primary open-angle glaucoma, right eye, moderate stage 10/16/2020 08/15/2023 Overview (08/15/2023): Noted on pl as OU moderate Glaucoma 08/27/2013 06/07/2022 Overview (06/07/2022): More specific dx on pl HTN, goal below 140/80 07/03/201210/29 Overview: Per HTN Protocol Encounters Date Type Department Care Team Description 07/27/19 9:30 AM EDT Office Visit Cardiology, [facility] [address] [place] [address] Kareen Boyd CRNP HTN, goal below 140/90*; S/P TAVR (transcatheter aortic valve replacement) 07/27/19 Travel 07/27/19 Orders Only Family Practice, Ashleigh Gallegos [address] [facility] [place] [address] SeptemberDeclan MD 07/25/19 10:00 AM EDT Nurse Only Ancillary Department, Ashleigh Palmer [address] [facility] [place] [address] Ashleigh, Nurse Annual Wellness Adult Annual Wellness Visit, Subsequent Visit 07/25/19 Travel 07/24/19 12:00 PM EDT Scheduled Telephone Care Coordination and Integration [address] [place] [address] Shara Ruiz [facility] [employer] Mother 07/20/19 2:30 PM EST Cardiac Studies Cardiac Studies, [facility] 132 [place] [address] History of transcatheter aortic valve replacement (TAVR) 07/20/19 Travel 07/19/19 8:30 AM EST Hem/Onc Treatment Hematology/Oncolo gy Treatment, [place] [address] [place] [address] Susie, Chair 11 Hem Onc [facility] Iron deficiency anemia due to chronic blood loss* 07/18/19 7:40 AM EST Office Visit [facility], Ashleigh Gallegos [address] [place] [address] Declan Dejesus MD Risk and functional assessment*; Iron deficiency anemia due to chronic blood loss; Hospital discharge follow-up; Need for influenza vaccination; Type 2 diabetes mellitus with hemoglobin A1c goal of less than 7.0% (HCC); Dyslipidemia, goal LDL below 130; HTN, goal below 140/90; S/P TAVR (transcatheter aortic valve replacement); Severe obesity with body mass index (BMI) of 35.0 to 39.9 with serious comorbidity (HCC) 07/18/19 25 Orders Only Hematology/Oncolo gy [facility] 200 [facility] [place] [address] Bruna Funk CRNP 07/18/19 25 Orders Only Hematology/Oncolo gy [facility] [address] Bruna Funk CRNP 07/18/19 25 Telephone Cardiology, [address] [place], [place] [id number] Diana Diana PA-C Test Results 07/18/19 25 Telephone Hematology/Oncolo gy [facility] 200 [facility] [place] [address] Bruna Funk CRNP Test Results Lab 07/18/19 25 Orders Only Hematology/Oncolo gy [facility] 200 [facility] [place] [address] Bruna Funk CRNP Iron deficiency anemia due to chronic blood loss* 07/18/19 Travel 07/17/19 2:00 PM EST Scheduled Telephone Care Coordination and Integration 100 [address] [facility] [place] [address] Shara Ruiz [facility] [employer] Mother 07/17/19 9:40 AM EST Laboratory Laboratory, Ashleigh Kamara [address] [place] [phone] [place] Iron deficiency anemia due to chronic blood loss; History of transcatheter aortic valve replacement (TAVR); Severe aortic stenosis; S/P TAVR (transcatheter aortic valve replacement); Mobitz type 2 second degree AV block 07/17/19 Travel 07/12/19 10:00 AM EST Cardiac Studies Cardiology, [facility] [address] [facility] LBBB (left bundle branch block)*; Mobitz type 2 second degree AV block; Intermittent complete atrioventricular block (HCC); Presence of automatic cardioverter/defibrillator (AICD) 07/12/19 Travel 07/09/19 Telephone Hematology/Oncolo gy Treatment, [place] [address] [place] [address] Bruna Funk CRNP Encounter Created in Error 07/05/19 Orders Only Family Practice, [facility] 226 [facility] [place] [phone] SeptemberDeclan MD 07/04/19 Result Scan Unspecified Department <No scans attached> 07/04/19 Telephone Cardiology, [place] [address] Divya Nation DO 07/04/19 Telephone Cardiology, [facility] 132 [facility] [place] [address] Divya Nation DO Near Syncopal Episode 06/29/19 2:00 [place] [address] Divya Nation DO Intermittent complete atrioventricular block (HCC)*; LBBB (left bundle branch block); Dyslipidemia, goal LDL below 130; HTN, goal below 140/90; Atherosclerosis of [place] coronary artery of [place] heart without angina pectoris 06/29/19 2:00 PM EST Office Visit [place] [address] Diana Diana PA-C S/P TAVR (transcatheter aortic valve replacement)*; Severe aortic stenosis; Mobitz type 2 second degree AV block 06/29/19 Telephone Cardiology, [address] [place] [address] Divya Nation, Patient Instructions 06/29/19 Travel 06/28/19 5:30 PM EST Scheduled Telephone Care Coordination and Integration [address] [place] [address] Shara Ruiz [facility] Patrol Mother 06/28/19 Telephone [facility] [address] [address] Katia Ernst, RN 06/28/19 Documentation [facility] 100 [place] [address] Katia Ernst, RN 06/28/19 Telephone [facility] [place] Cardiology [address] [place] [address] Donald Ellis DO Advice 06/26/19 4:20 PM EST Office [facility] 226 [place] [address] Declan Dejesus MD Hospital discharge follow-up*; Iron deficiency anemia due to chronic blood loss; S/P TAVR (transcatheter aortic valve replacement); HTN, goal below 140/90; Type 2 diabetes mellitus with diabetic nephropathy, unspecified whether [facility] insulin use (HCC); Primary open-angle glaucoma, bilateral, moderate stage; Atherosclerosis of [place] coronary artery without angina pectoris, unspecified whether [place] or transplanted heart; Glaucoma, unspecified glaucoma type, unspecified laterality; Pulmonary emphysema, unspecified emphysema type ([facility]) 06/26/19 Travel 06/22/19 Telephone Care Coordination and Integration [facility] [place] [address] Diana Cole, YAMILE Appointment 06/20/19 1:00 PM EST Documentation [facility] 100 [place] [address] Monitor, Holter S/P TAVR (transcatheter aortic valve replacement) 06/20/19 25 7:23 AM EST - 06/20/19 25 11:59 PM EST Hospital Encounter [facility] [address] [place] [address] Discharge Disposition: Home - Self Care 06/20/19 25 Travel 06/20/19 25 Population Health External Data Unspecified Department 06/19/19 25 10:52 AM EST - 06/19/19 25 11:59 PM EST Hospital Encounter [facility] [address] [place] [address] Discharge Disposition: Home - Self Care 06/19/19 25 9:30 AM EST - 06/19/19 25 10:30 AM EST Surgery CRS Waiting GM, Cardiac Recovery Suite Waiting Unit, [address] [place] [address] Khang Mir MD REPLACE AORTIC VALVE, PERCUTANEOUS FEMORAL 06/19/19 25 8:46 AM EST - 06/20/19 25 12:51 PM EST Hospital Encounter CRS Extend [facility], Cardiac Recovery Suite Extended Unit, [address] [place] [address] Khang Mir MD Yost, Gregory Walter, EKG Report Discharge Disposition: Home - Self Care 06/19/19 25 Documentation Cardiology [facility], [address] [address] Leah Sutton, 06/19/19 25 Travel 06/18/19 25 Orders Only Cardiology [facility], [place] [address] [place] [address] Noelle Alexis CRC History of transcatheter aortic valve replacement (TAVR)* 06/15/19 25 9:20 AM EST Laboratory Laboratory, [place] [facility] [address] 226 [facility] [place] [phone] [place] m[place] 06/15/19 25 Telephone Radiology Film File 100 [place] [facility] [place] [address] Support, Imaging Radiology Imaging Records Request 06/15/19 25 Travel 06/13/19 Telephone Radiology Film File 100 [address] [facility] [place] [address] Support, Imaging Radiology Patient Access Records Request 06/13/19 Telephone Hematology/Oncolo wilfrido Richards [place] [address] [place] [address] Bruna Funk CRNP 06/12/19 Telephone [facility] [place] [address] [facility] [place] [address] Declan Dejesus MD Hospital Follow-Up 06/11/19 10:00 AM EST Nurse Only Gastroenterology, [place] [address] [place] [address] Nurse Nate Ariza Nurse Documentation (VCE as inpatient); En... 06/11/19 Refill [facility] [place] [address] [facility] [place] [address] Declan Dejesus MD 06/08/19 1:50 PM EST - 06/08/19 2:27 PM EST Surgery OR [facility], Operating Room, [facility] - 4th Floor [address] [place] [phone] Belén Hernadez MD ESOPHAGOGASTRODUODENOSCOPY (EGD), FLEXIBLE, TRANSORAL, DIAGNOSTIC 06/08/19 Travel 06/08/19 Population Health External Data Unspecified Department 06/07/19 6:10 PM EST - 06/12/19 6:54 PM EST Hospital Encounter 3B GL, [facility] 3rd Floor [address] [place] [address] Thomas Bolaños DO Vilensky, Valeriy M, MD Varela, Lionel, MD Xanthopoulos, Julie, MD, PhD Various: KRAVS,UGI,EKG Discharge Disposition: Home - Self Care 06/07/19 8:30 AM EST Laboratory Laboratory, [place] [facility] [address] [facility] [place] [address] [place] Iron deficiency anemia due to chronic blood loss 06/07/19 Telephone Hematology/Oncolo gy [address] [place] [address] [place] [phone] Bruna Funk, CYNDI Test Results Lab 06/07/19 Travel 06/05/19 9:45 AM EST Scheduled Telephone Care Coordination and Integration [address] [facility] [place] [address] Keshia Reyez [facility] Mother 06/04/19 1:30 PM EST Office Visit Cardiothoracic Surg [facility], [place] [address] [place] [facility] [place] [address] Yonatan Newell MD Severe aortic stenosis* 06/04/19 Population Health External Data Unspecified Department 06/04/19 Travel 06/01/19 3:00 PM EST Hem/Onc Treatment Hematology/Oncolo gy Treatment, [address] [phone] Susie, Chair 10 Hem Onc Scenery Iron deficiency anemia due to chronic blood loss* 05/29/19 7:00 AM EST - 05/29/19 8:00 AM EST Surgery CRS Waiting [facility] [place], Cardiac Recovery Suite Waiting Unit, H [address] [place] [address] Gretchen Leone MD CORONARY ANGIOGRAPHY W/LEFT HEART CATH 05/29/19 6:32 AM EST - 05/29/19 12:56 PM EST Hospital Encounter CRS Waiting [facility] [place], Cardiac Recovery Suite Waiting Unit, H [address] [place] [address] Gretchen Leone MD Various: KRAVS,EKG Discharge Disposition: Home - Self Care 05/29/19 Travel 05/25/19 1:00 PM EST Hem/Onc Treatment Hematology/Oncolo gy Treatment, [address] [place] [phone] Susie, Chair 6 Hem Onc Scenery Iron deficiency anemia due to chronic blood loss* 05/24/19 8:40 AM EST Laboratory Laboratory, [address] [facility] [place] [address] [facility] Iron deficiency anemia due to chronic blood loss; Symptomatic anemia; Severe aortic stenosis 05/24/19 Travel 05/22/19 12:30 PM EST Scheduled Telephone Care Coordination and Integration [address] [place] [address] Thuy Mccarthy, [facility] Patrol Mother 05/21/19 12:30 PM EST Office Visit Dental Medicine, [place] [address] [place] [address] Woody Mathews, NATHANAEL Dental caries [K02.9]* 05/21/19 Travel 05/18/19 11:15 AM EST Hem/Onc Treatment Hematology/Oncolo gy Treatment, [place] [address] [place] [address] Susie Chair 9 Hem Onc [facility] Iron deficiency anemia due to chronic blood loss* 05/17/19 8:40 AM EST Laboratory Laboratory, [place] [facility] [address] [place] [address] [facility] Iron deficiency anemia due to chronic blood loss 05/17/19 25 Travel 05/15/20 24 2:45 PM EST Scheduled Telephone Care Coordination and Integration [address] [place] [address] Thuy Mccarthy, [facility] Health Patrol Mother 05/15/20 24 Travel 05/11/20 24 2:00 PM EST Office Visit [facility], [address] [place] [phone] Shira Black MD Symptomatic anemia*; Severe aortic stenosis; Iron deficiency anemia due to chronic blood loss; Heyd's syndrome (HCC); Angiectasia; Type 2 diabetes mellitus with hemoglobin A1c goal of less than 7.0% (HCC); HTN, goal below 140/90; Atherosclerosis of [place] coronary artery without angina pectoris, unspecified whether [place] or transplanted heart 05/11/20 24 Orders Only Hematology/Oncolo gy [facility] [address] [place] [address] Bruna Funk CRNP 05/11/20 Travel 05/11/20 Telephone Hematology/Oncolo gy [facility] [address] [place] [address] Bruna Funk CRNP Appointment ([facility]) 05/11/20 Orders Only Hematology/Oncolo gy [facility] [address] [place], [place] [address] Bruna Funk CRNP 05/11/20 Telephone Hematology/Oncolo gy [facility] [address] [place], [place] [address] Bruna Funk CRNP Test Results Lab 05/10/20 11:00 AM EST Laboratory Laboratory [facility] [address] [place], [place] [address] [facility] Severe aortic stenosis; Acute blood loss anemia; Iron deficiency anemia due to chronic blood loss; Symptomatic anemia 05/10/20 10:00 AM EST Office Visit Hematology/Oncolo gy [facility] [address] [place], [place] [address] Bruna Funk CRNP Iron deficiency anemia due to chronic blood loss*; Symptomatic anemia; Severe aortic stenosis 05/10/[address] [address] Declan Dejesus MD Health Maintenance 05/10/20 Travel 05/07/20 11:00 AM EST Office Visit [facility], [address] [address] Khang Mir MD Nonrheumatic aortic valve stenosis* 05/07/20 9:20 AM EST - 05/07/20 11:59 PM EST Hospital Encounter Radiology, [address] [address] Discharge Disposition: Home - Self Care 05/07/20 Telephone Oral Maxillofacial Surgery, [address] [address] Services, Scheduling 05/07/20 Orders Only Cardiology [facility], [place] [address] [place] [address] Katia Ernst, RN Dental caries* 05/07/20 Travel 05/03/20 Orders Only Cardiology [facility], [place] [address] [place] [address] Katia Ernst, RN Aortic valve stenosis* 05/02/20 1:00 PM EST - 05/02/20 1:43 PM EST Surgery OR [facility], Operating Room, [facility] - 4th Floor 400 [place] [address] Omid Bonner MD COLONOSCOPY FLEXIBLE PROXIMAL DIAGNOSTIC 05/02/20 Population Health External Data Unspecified Department 05/01/20 10:11 AM EST - 05/04/20 10:05 AM EST Hospital Encounter 5A [facility], [facility] 5th Floor 400 [place] [address] Woody Shea MD Taylor, MD Jr Kwan, Clulen Berman MD Various: KRAVS,EKG,GICOLON Discharge Disposition: Home - Self Care 05/01/20 Travel 05/01/[address] [place] [address] Declan Dejesus MD High triglycerides; Type 2 diabetes mellitus with hemoglobin A1c goal of less than 7.0% ([facility]) 04/30/20 8:20 AM EST Laboratory Laboratory, [facility] [address] [place] [phone] Ashleigh Laboratory Severe aortic stenosis; Acute blood loss anemia; Iron deficiency anemia due to chronic blood loss 04/30/20 Travel 04/27/20 12:30 PM EST Scheduled Telephone Care Coordination and Integration 100 [address] [facility] [place] [address] Thuy Mccarthy, [facility] Patrol Mother 04/27/20 Telephone [facility]03[facility] [address] September, Declan Person MD FYI 04/27/20 24 New Patient Triage (CRITICAL CARE UNIT MANAGER USE ONLY) Cardiology [facility] [place], [address] [place] [address] Katia Ernst RN from Last 3 Months Immunizations Name Administration Dates Next Due COVID-19 mRNA, LNP-s, No Pre serve, 2-Dose Series (Moderna) 08/19/2020,07/22/2020 COVID-19, MRNA-LNP, PF, 50 M CG/0.5 mL, 12 YRS AND ABOVE, IM (MODERNA-Spikevax) 04/04/2023 COVID-19, mRNA, LNP-s, PF, B ooster, 100mcg/0.5mg (Moderna) 04/16/2021 Covid-19 Ad26, Single Dose (Sylvia/J&J) 08/19/2020,07/22/2020 Pneumococcal Conjugate Vacci ne, 20-valent ([id number]) 05/20/2023 Pneumococcal Polysaccharide PPV23 (Pneumovax) 03/11/2009,10/11/2008(Deferred: Patient Refused) Seasonal Influenza Vac., MDV , IM, 0.5 mL (Fluzone) 03/07/2016,06/15/2015,07/16/2013,05/17,05/05/2009(Deferred: Patient Refused) Seasonal Influenza, High Dos e, Trivalent, PF, IM (Fluzone HD) 07/17/2024 Seasonal Influenza, Quadriva lent Hd (Fluzone Hd) 04/04/2023 Seasonal Influenza, Quadrivalent, ID 03/11/2022, 04/16/2021,02/19/2020 TDAP, Age 7 and older, IM (Adacel) 10/11/2008(Plaza: Patient Refused) Zoster Vaccine Recombinant (Shingrix) 06/10/2023 ,04/04/2023 Family History Medical History Relation Name Comments Stroke Father prostate cancer Diabetes Grandmother (Maternal) Cancer Mother Cancer Eye Problems None Denies family h x of AMD, RD, glaucoma, or blindness Heart Disorder None Hypertension None Thyroid Disorder None Diabetes Sister Relation Name Status Comments Father (Age 86) Grandmother (Maternal) Mother (Age 56) None Sister Social History Tobacco Use Types Packs/Day Years Used Date Smoking Tobacco: Former Cigarettes 2 30 0 12/03/1982 - 12/03/2012 Passive Smoke Exposure: Past Smokeless Tobacco: Never Tobacco Cessation:Counseling Given: No Alcohol Use Standard Drinks/Week Comments Yes 0 [...] Orientation Straight 06/23/2023 2: 00 PM EST Last Filed Vital Signs Vital Sign Reading Time Taken Comments Blood Pressure 122/72 07/26/2024 8:59 AM EDT Pulse 60 07/26/2024 8:59 AM EDT Temperature 37.1 °C (98.7 °F) 07/24/2024 10:24 AM E DT Respiratory Rate 18 07/18/2024 8:40 AM EST Oxygen Saturation 95% 07/24/2024 10:24 AM EDT Inhaled Oxygen Concentration - - Weight 106.6 kg (235 lb) 07/26/2024 8:59 AM EDT Height 175.3 cm (5' 9") 07/24/2024 10:24 AM EDT Body Mass Index 34.7 07/24/2024 10:24 AM EDT Plan of Treatment Upcoming Encounters Date Type Department Care Team (Late st Contact Info) Description 07/26/2024 10:10 AM EDT [facility] 132 [facility] [place] [phone] Kg Stafford 132 [facility] [place] [address] Arrived 07/27/2024 8:30 AM EDT Hem/Onc Treatment Hematology/Oncology Treatment, [place] [address] [place] [phone] Susie, Chair 11 Hem Onc Scenery [address] [place] [address] 07/31/2024 10:00 AM EDT Laboratory Laboratory, Ashleigh Adames 226 [facility] [place] [address] Ashleigh, Laboratory 226 [place] [address] 08/01/2024 8:00 AM EDT Hem/Onc Treatment Hematology/Oncology Treatment, [address], [place] [phone] Susie, Chair 5 Hem On[address] [place], [place] [address] 08/09/2024 12:30 PM EDT Hem/Onc Treatment Hematology/Oncology Treatment, [place] 200 [facility], [place] [phone] Susie, Chair 1 Hem Onc [address] [place], [place] [address] 08/09/2024 2:30 PM EDT Office Visit Hematology/Oncology [facility] 200 [facility], [place] [address] Bruna Funk CRNP [address] [place] [address] 10/09/2024 10:00 AM EDT Cardiac Studies Cardiology, [facility] 132 [facility] [address] [facility] 132 [facility] [place] [address] 10/17/2024 8:00 AM EDT Office Visit Family [facility], Ashleigh Gallegos [address] [place] [address] Declan Dejesus MD 226 [facility] [place] [address] 12/26/2024 9:30 AM EDT Cardiac Studies Cardiac Studies, [facility] [address] [place] [address] 12/31/2024 2:00 PM EDT Office Visit Cardiology, [facility] [address] [place] [address] Kareen Boyd CRNP [address] [place] [address] 07/29/2025 10:00 AM EDT Nurse Only Ancillary Department, Ashleigh Kamara [address] [place] [address] Nurse Ashleigh Annual Wellness 226 [place] [address] Health Maintenance Due Date Last Done Comments Alpha-1 Antitrypsin 1971 Sigmoidoscopy 1998 Lung Cancer Screening 2003 Fecal Occult Blood Test 01/14/2024 01/14/20 23, 01/13/2023, 01/15/2022, Additional history exists COVID-19 Vaccine ( season) 2024 04/04/2023, 04/16/2021, 08/19/2020, Additional history exists HbA1c 10/03/2024 04/05/2024, 0 09/2023, 10/19/2023, Additional history exists Albumin/Creatinine Ratio 03/26/2025 024, 01/04/2023, 07/05/2022, Additional history exists B-12 06/08/2025 06/08/2024, 06/2023, 07/20/2023 O2 ASSESSMENT COMPLETED IN PAST YEAR FOR COPD 06/19/2025 06/19/2024 GFR 07/16/2025 07/16/2024, 0 09/2024, 06/19/2024, Additional history exists Adult Wellness Visit 07/24/2025 07/24/2024, 07/20/19 24 [...] on patient's age to complete this topic Medical Devices Implanted Type Area Food Truck Caterer Device Identifier Shelf Expiration Date Model / Serial / Lot Iol Mx60 14.0 Implanted:Qty: 1 on 10/19/2019 by Ankit Ny MD at OR [facility] Right: Eye 04/14/2020 MX60 / [id number] / [id number] Implanted:Qty: 1 on 10/30/2019 by Ankit Ny MD at OR [facility] Left: Eye 02/12/2021 [id number] / [id number] / [id number] Clip Ultra 360 235cm - [id number] Implanted:Qty: 1 on 05/02/2024 by Omid Bonner MD at OR [facility] Colon [employer] : ENDOSCOPY [id number] 12/26/2026 [id number] / / [id number] Clip Ultra 360 235cm - [id number] Implanted:Qty: 1 on 05/02/2024 by Omid Bonner MD at OR [facility] Colon [employer] : ENDOSCOPY [id number] 12/26/2026 [id number] / / [id number] Clip Ultra 360 235cm - [id number] Implanted:Qty: 1 on 05/02/2024 by Omid Bonner MD at OR [facility] Colon [employer] : ENDOSCOPY [id number] 12/26/2026 [id number] / / [id number] Catheter Hemostatic 235cm 2.8mm [address]mm [address] Latexfree - [id number] Implanted:Qty: 1 on 06/08/2024 by Belén Hernadez MD at OR [facility] [employer] : ENDOSCOPY [id number] 01/01/2027 [id number] / / [id number] Clip Ultra 360 235cm - [id number] Implanted:Qty: 1 on 06/08/2024 by Belén Hernadez MD at OR [facility] [employer] ENDOSCOPY [id number] 03/06/2027 [id number] / / [id number] Catheter Hemostatic 235cm 2.8mm 11mm [address] Latex[employer] - [id number] Implanted:Qty: 1 on 06/08/2024 by Belén Hernadez MD at OR [facility] [employer] ENDOSCOPY [id number] 01/30/2027 [id number] / / [id number] Clip Ultra 360 235cm - [id number] Implanted:Qty: 1 on 06/08/2024 by Belén Hernadez MD at OR [facility] [employer] : ENDOSCOPY [id number] 12/27/2026 [id number] / / [id number] Catheter Hemostatic 235cm 2.8mm 11mm Clip St Latex[employer] - [id number] Implanted:Qty: 1 on 06/08/2024 by Belén Hernadez MD at OR [facility] [employer] : ENDOSCOPY [id number] 01/30/2027 [id number] / / [id number] Clip Ultra 360 235cm - [id number] Implanted:Qty: 1 on 06/08/2024 by Belén Hernadez MD at OR [facility] [employer] : ENDOSCOPY [id number] 12/27/2026 [id number] / / [id number] Clip Ultra 360 235cm - [id number] Implanted:Qty: 1 on 06/08/2024 by Belén Hernadez MD at OR [facility] [employer] : ENDOSCOPY [id number] 12/26/2026 [id number] / / [id number] Clip Ultra 360 235cm - [id number] Implanted:Qty: 1 on 06/08/2024 by Belén Hernadez MD at OR [facility] [employer] : ENDOSCOPY [id number] 12/27/2026 [id number] / / [id number] Clip Hemostatic 18mm Assurance - [id number] Implanted:Qty: 1 on 06/08/2024 by Belén Hernadez MD at OR [facility] [place] [employer] [id number] 01/02/2027 [id number] / / [id number] Catheter Hemostatic 235cm 2.8mm [address]mm [address] Latexfree - [id number] Implanted:Qty: 1 on 06/08/2024 by Belén Hernadez MD at OR [facility] [employer] : ENDOSCOPY [id number] 01/30/2027 [id number] / / [id number] Catheter Hemostatic 235cm 2.8mm [address] Latexfree - [id number] Implanted:Qty: 1 on 06/08/2024 by Belén Hernadez MD at OR [facility] [employer] : ENDOSCOPY [id number] 01/30/2027 [id number] / / [id number] Clip Hemostatic 11mm Assurance - [id number] Implanted:Qty: 1 on 06/08/2024 by Belén Hernadez MD at OR [facility] [place] [employer] 11/14/2026 [id number] / / [id number] Catheter Hemostatic 235cm 2.8mm [address] Latexfree - [id number] Implanted:Qty: 1 on 06/08/2024 by Belén Hernadez MD at OR [facility] [employer] : ENDOSCOPY [id number] 01/01/2027 [id number] / / [id number] Catheter Hemostatic 235cm 2.8mm [address] Latexfree - [id number] Implanted:Qty: 1 on 06/08/2024 by Belén Hernadez MD at OR [facility] [employer] : ENDOSCOPY [id number] 01/30/2027 [id number] / / [id number] Valve Transcath Resilia 26mm - [id number] - [id number] Implanted:Qty: 1 on 06/19/2024 by Khang Mir MD at CARDIAC LABS [facility] [place] [place] [employer] [id number] 09/27/2026 [id number] / [id number] / [id number] Procedures Procedure Name Priority Date/Time Associated Diagnosis Comments DIABETIC EYE EXAM Routine 07/25/2024 ECHO, COMPLETE (2D), TRANS-THORACIC Routine 07/19/2024 3:40 PM EST History of transcatheter aortic valve replacement (TAVR) IRON SCREEN, INCLUDING TIBC Routine 07/16/2024 9:42 AM EST Iron deficiency anemia due to chronic blood loss FERRITIN Routine 07/16/2024 9:42 AM EST Iron deficiency anemia due to chronic blood loss DIFFERENTIAL, AUTOMATED STAT 07/16/2024 9:42 AM EST Iron deficiency anemia due to chronic blood loss CBC STAT 07/16/2024 9:42 AM EST Iron deficiency anemia due to chronic blood loss COMPREHENSIVE METABOLIC PANEL Routine 07/16/2024 9:42 AM EST Severe aortic stenosis S/P TAVR (transcatheter aortic valve replacement) Mobitz type 2 second degree AV block CBC STAT 07/16/2024 9:42 AM EST Iron deficiency anemia due to chronic blood loss ECHOCARDIOLOGY SCANNED RESULT 07/04/2024 XR CHEST 1 VIEW Routine 07/04/2024 HC ECG TRACING ONLY STAT 06/29/2024 1:29 PM EST Screening for cardiovascular condition ECHO, COMPLETE (2D), TRANS-THORACIC Routine 06/20/2024 8:16 AM EST S/P TAVR (transcatheter aortic valve replacement) XR CHEST 1 VIEW Routine 06/20/2024 6:05 AM EST Encounter for surgical aftercare following surgery on the circulatory system HC ECG TRACING ONLY Routine 06/20/2024 3:45 AM EST Post-operative state MAGNESIUM STAT 06/20/2024 3:32 AM EST BASIC METABOLIC PANEL STAT 06/20/2024 3:32 AM EST CBC STAT 06/20/2024 3:31 AM EST GLUCOSE METER, POINT OF CARE ROLANDA 06/19/2024 10:12 PM EST GLUCOSE METER, POINT OF CARE ROLANDA 06/19/2024 7:01 PM EST XR CHEST 1 VIEW STAT 06/19/2024 1:26 PM EST Encounter for surgical aftercare following surgery on the circulatory system Other disorders of lung S/P TAVR (transcatheter aortic valve replacement) MAGNESIUM STAT 06/19/2024 1:06 PM EST CBC STAT 06/19/2024 1:06 PM EST BASIC METABOLIC PANEL STAT 06/19/2024 1:06 PM EST HC ECG TRACING ONLY STAT 06/19/2024 12:55 PM EST Post-operative state ECHO, COMPLETE (2D), TRANS-THORACIC Routine 06/19/2024 12:41 PM EST Status post cardiac surgery ACT, POINT OF CARE ROLANDA 06/19/2024 12:12 PM EST Replace Aortic Valve, Percutaneous Femoral 06/19/2024 11:32 AM EST Aortic stenosis Replace Aortic Valve, Percutaneous Femoral 06/19/2024 11:32 AM EST Aortic stenosis TYPE AND SCREEN Routine 06/19/2024 9:09 AM EST PT INR Routine 06/19/2024 9:09 AM EST HEPATIC FUNCTION PANEL Routine 06/19/2024 9:09 AM EST CBC Routine 06/19/2024 9:09 AM EST BNP (NT-PROBNP) Routine 06/19/2024 9:09 AM EST BASIC METABOLIC PANEL Routine 06/19/2024 9:09 AM EST HC COMPATIBILITY ELECTRONIC CROSSMATCH STAT 06/19/2024 8:50 AM EST CARDIAC CATHETERIZATION REPORT Routine 06/19/2024 DIFFERENTIAL, AUTOMATED Routine 06/15/2024 9:35 AM EST Melena Severe aortic stenosis CBC Routine 06/15/2024 9:35 AM EST Melena Severe aortic stenosis FERRITIN Routine 06/15/2024 9:35 AM EST Melena Severe aortic stenosis IRON SCREEN, INCLUDING TIBC Routine 06/15/2024 9:35 AM EST Melena Severe aortic stenosis CBC Routine 06/15/2024 9:35 AM EST Melena Severe aortic stenosis GLUCOSE METER, POINT OF CARE ROLANDA 06/12/2024 4:30 PM EST GLUCOSE METER, POINT OF CARE [facility] 06/12/2024 11:23 AM EST GLUCOSE METER, POINT OF CARE [facility] 06/12/2024 7:36 AM EST CBC Routine 06/12/2024 6:55 AM EST COMPREHENSIVE METABOLIC PANEL STAT 06/12/2024 6:55 AM EST GLUCOSE METER, POINT OF CARE [facility] 06/11/2024 9:18 PM EST CBC Routine 06/11/2024 6:22 PM EST GLUCOSE METER, POINT OF CARE [facility] 06/11/2024 5:00 PM EST GLUCOSE METER, POINT OF CARE [facility] 06/11/2024 11:57 AM EST GLUCOSE METER, POINT OF CARE [facility] 06/11/2024 7:43 AM EST GLUCOSE METER, POINT OF CARE [facility] 06/11/2024 6:32 AM EST CBC Routine 06/11/2024 5:39 AM EST COMPREHENSIVE METABOLIC PANEL STAT 06/11/2024 5:39 AM EST GI TRACT IMAGING, CAPSULE, SMALL Routine 06/11/2024 GLUCOSE METER, POINT OF CARE [facility] 06/10/2024 9:47 PM EST GLUCOSE METER, POINT OF CARE [facility] 06/10/2024 9:10 PM EST GLUCOSE METER, POINT OF CARE [facility] 06/10/2024 4:20 PM EST HEMOGLOBIN AND HEMATOCRIT PANEL Routine 06/10/2024 2:04 PM EST GLUCOSE METER, POINT OF CARE [facility] 06/10/2024 11:20 AM EST TRANSFUSE PACKED RED BLOOD CELLS Routine 06/10/2024 9:37 AM EST HC COMPATIBILITY ELECTRONIC CROSSMATCH Routine 06/10/2024 8:40 AM EST GLUCOSE METER, POINT OF CARE [facility] 06/10/2024 7:22 AM EST IRON SCREEN, INCLUDING TIBC Add-on 06/10/2024 7:11 AM EST DIFFERENTIAL, AUTOMATED Routine 06/10/2024 7:11 AM EST CBC Routine 06/10/2024 7:11 AM EST CBC Routine 06/10/2024 7:11 AM EST COMPREHENSIVE METABOLIC PANEL STAT 06/10/2024 7:11 AM EST GLUCOSE METER, POINT OF CARE [facility] 06/09/2024 9:10 PM EST GLUCOSE METER, POINT OF CARE [facility] 06/09/2024 4:29 PM EST CBC Routine 06/09/2024 4:13 PM EST GLUCOSE METER, POINT OF CARE [facility] 06/09/2024 11:37 AM EST GLUCOSE METER, POINT OF CARE [facility] 06/09/2024 8:21 AM EST CBC Add-on 06/09/2024 7:12 AM EST EXTRA LAVENDER TOP Routine 06/09/2024 7:12 AM EST EXTRA TUBES Routine 06/09/2024 7:12 AM EST COMPREHENSIVE METABOLIC PANEL STAT 06/09/2024 6:43 AM EST CBC Routine 06/08/2024 11:48 PM EST GLUCOSE METER, POINT OF CARE R[facility] 06/08/2024 9:03 PM EST GLUCOSE METER, POINT OF CARE [facility] 06/08/2024 5:28 PM EST CBC Routine 06/08/2024 4:53 PM EST UPPER GI ENDOSCOPY 06/08/2024 2:02 PM EST EGD, Flexible, Diagnostic 06/08/2024 1:40 PM EST Iron deficiency anemia TRANSFUSE PACKED RED BLOOD CELLS STAT 06/08/2024 12:44 PM EST GLUCOSE METER, POINT OF CARE ROLANDA 06/08/2024 12:31 PM EST CBC STAT 06/08/2024 11:44 AM EST GLUCOSE METER, POINT OF CARE [facility] 06/08/2024 10:11 AM EST TRANSFUSE PACKED RED BLOOD CELLS STAT 06/08/2024 8:42 AM EST HC COMPATIBILITY ELECTRONIC CROSSMATCH STAT 06/08/2024 8:05 AM EST RETICULOCYTE PANEL Add-on 06/08/2024 7:05 AM EST CBC Routine 06/08/2024 7:05 AM EST IRON SCREEN, INCLUDING TIBC Add-on 06/08/2024 7:04 AM EST FERRITIN Add-on 06/08/2024 7:04 AM EST VITAMIN B12 Add-on 06/08/2024 7:04 AM EST FOLIC ACID Add-on 06/08/2024 7:04 AM EST HAPTOGLOBIN Add-on 06/08/2024 7:04 AM EST LD Add-on 06/08/2024 7:04 AM EST BASIC METABOLIC PANEL Routine 06/08/2024 7:[address] PULMONARY EMBOLUS W CONTRAST STAT 06/07/2024 9:41 PM EST Other nonspecific abnormal finding of lung field Shortness of breath Tachycardia, unspecified TROPONIN T, HIGH SENSITIVITY STAT 06/07/2024 8:38 PM EST TRANSFUSE PACKED RED BLOOD CELLS Routine 06/07/2024 7:26 PM EST PT INR STAT 06/07/2024 7:04 PM EST HC COMPATIBILITY ELECTRONIC CROSSMATCH Routine 06/07/2024 6:35 PM EST EXTRA ANGELO TOP Routine 06/07/2024 6:22 PM EST EXTRA PINK TOP Routine 06/07/2024 6:22 PM EST EXTRA TUBES Routine 06/07/2024 6:22 PM EST DIFFERENTIAL, AUTOMATED STAT 06/07/2024 6:22 PM EST CBC STAT 06/07/2024 6:22 PM EST TROPONIN T, HIGH SENSITIVITY STAT 06/07/2024 6:22 PM EST TYPE AND SCREEN STAT 06/07/2024 6:22 PM EST CBC STAT 06/07/2024 6:22 PM EST COMPREHENSIVE METABOLIC PANEL STAT 06/07/2024 6:22 PM EST HC ECG TRACING ONLY STAT 06/07/2024 6:16 PM EST Screening for cardiovascular condition DIFFERENTIAL, AUTOMATED STAT 06/07/2024 8:20 AM EST Iron deficiency anemia due to chronic blood loss CBC STAT 06/07/2024 8:20 AM EST Iron deficiency anemia due to chronic blood loss CBC STAT 06/07/2024 8:20 AM EST Iron deficiency anemia due to chronic blood loss Coronary Angiography w/left heart Cath 05/29/2024 9:29 AM EST Aortic stenosis RENAL FUNCTION PANEL STAT 05/29/2024 7:27 AM EST CBC STAT 05/29/2024 7:27 AM EST HC ECG TRACING ONLY STAT 05/29/2024 7:23 AM EST SOB (shortness of breath) CARDIAC CATHETERIZATION REPORT Routine 05/29/2024 DIFFERENTIAL, AUTOMATED STAT 05/24/2024 8:38 AM EST Iron deficiency anemia due to chronic blood loss CBC STAT 05/24/2024 8:38 AM EST Iron deficiency anemia due to chronic blood loss FERRITIN STAT 05/24/2024 8:38 AM EST Iron deficiency anemia due to chronic blood loss Symptomatic anemia Severe aortic stenosis IRON SCREEN, INCLUDING TIBC STAT 05/24/2024 8:38 AM EST Iron deficiency anemia due to chronic blood loss Symptomatic anemia Severe aortic stenosis CBC STAT 05/24/2024 8:38 AM EST Iron deficiency anemia due to chronic blood loss DIFFERENTIAL, AUTOMATED STAT 05/17/2024 8:43 AM EST Iron deficiency anemia due to chronic blood loss CBC STAT 05/17/2024 8:43 AM EST Iron deficiency anemia due to chronic blood loss CBC STAT 05/17/2024 8:43 AM EST Iron deficiency anemia due to chronic blood loss DIFFERENTIAL, AUTOMATED STAT 05/10/2024 10:06 AM EST Iron deficiency anemia due to chronic blood loss Symptomatic anemia Severe aortic stenosis CBC STAT 05/10/2024 10:06 AM EST Iron deficiency anemia due to chronic blood loss Symptomatic anemia Severe aortic stenosis FERRITIN STAT 05/10/2024 10:06 AM EST Iron deficiency anemia due to chronic blood loss Symptomatic anemia Severe aortic stenosis IRON SCREEN, INCLUDING TIBC STAT 05/10/2024 10:06 AM EST Iron deficiency anemia due to chronic blood loss Symptomatic anemia Severe aortic stenosis CBC STAT 05/10/2024 10:06 AM EST Iron deficiency anemia due to chronic blood loss Symptomatic anemia Severe aortic stenosis CTA TAVR GATED STUDY Routine 05/07/2024 10:34 AM EST Aortic valve stenosis GLUCOSE METER, POINT OF CARE ROLANDA 05/04/2024 7:33 AM EST DIFFERENTIAL, AUTOMATED Routine 05/04/2024 5:56 AM EST CBC Routine 05/04/2024 5:56 AM EST BASIC METABOLIC PANEL Routine 05/04/2024 5:56 AM EST CBC Routine 05/04/2024 5:56 AM EST GLUCOSE METER, POINT OF CARE ROLANDA 05/03/2024 9:27 PM EST HGB Routine 05/03/2024 7:00 PM EST GLUCOSE METER, POINT OF CARE ROLANDA 05/03/2024 6:03 PM EST HGB Routine 05/03/2024 11:55 AM EST GLUCOSE METER, POINT OF CARE ROLANDA 05/03/2024 11:44 AM EST GLUCOSE METER, POINT OF CARE ROLANDA 05/03/2024 5:49 AM EST DIFFERENTIAL, AUTOMATED Routine 05/03/2024 5:23 AM EST CBC Routine 05/03/2024 5:23 AM EST BASIC METABOLIC PANEL Routine 05/03/2024 5:23 AM EST CBC Routine 05/03/2024 5:23 AM EST GLUCOSE METER, POINT OF CARE ROLANDA 05/03/2024 12:20 AM EST HGB Routine 05/02/2024 11:49 PM EST HGB Routine 05/02/2024 9:20 PM EST GLUCOSE METER, POINT OF CARE ROLANDA 05/02/2024 5:17 PM EST HGB Routine 05/02/2024 2:44 PM EST COLONOSCOPY 05/02/2024 1:26 PM EST Colonoscopy, Diagnostic (Rectum) 05/02/2024 1:00 PM EST Anemia GLUCOSE METER, POINT OF CARE ROLANDA 05/02/2024 11:42 AM EST GLUCOSE METER, POINT OF CARE ROLANDA 05/02/2024 6:03 AM EST PHOSPHORUS Routine 05/02/2024 5:42 AM EST MAGNESIUM Routine 05/02/2024 5:42 AM EST CBC Routine 05/02/2024 5:42 AM EST BASIC METABOLIC PANEL Routine 05/02/2024 5:42 AM EST GLUCOSE METER, POINT OF CARE ROLANDA 05/01/2024 11:47 PM EST HGB Routine 05/01/2024 9:40 PM EST TRANSFUSE PACKED RED BLOOD CELLS Routine 05/01/2024 6:20 PM EST GLUCOSE METER, POINT OF CARE ROLANDA 05/01/2024 5:16 PM EST HC COMPATIBILITY ELECTRONIC CROSSMATCH Routine 05/01/2024 5:05 PM EST HGB Routine 05/01/2024 4:24 PM EST EXTRA GREEN TOP WITH GEL Routine 05/01/2024 4:21 PM EST EXTRA TUBES Routine 05/01/2024 4:21 PM EST XR CHEST 1 VIEW STAT 05/01/2024 12:58 PM EST Pleural effusion, not elsewhere classified TRANSFUSE PACKED RED BLOOD CELLS STAT 05/01/2024 12:41 PM EST GLUCOSE METER, POINT OF CARE ROLANDA 05/01/2024 12:18 PM EST ABO/RH Routine 05/01/2024 11:04 AM EST HC COMPATIBILITY ELECTRONIC CROSSMATCH STAT 05/01/2024 10:45 AM EST EXTRA LIGHT BLUE TOP Routine 05/01/2024 10:24 AM EST EXTRA TUBES Routine 05/01/2024 10:24 AM EST DIFFERENTIAL, AUTOMATED STAT 05/01/2024 10:24 AM EST CBC STAT 05/01/2024 10:24 AM EST BNP (NT-PROBNP) STAT 05/01/2024 10:24 AM EST TROPONIN T, HIGH SENSITIVITY STAT 05/01/2024 10:24 AM EST TYPE AND SCREEN STAT 05/01/2024 10:24 AM EST COMPREHENSIVE METABOLIC PANEL STAT 05/01/2024 10:24 AM EST CBC STAT 05/01/2024 10:24 AM EST HC ECG TRACING ONLY STAT 05/01/2024 10:15 AM EST CBC Routine 04/30/2024 8:31 AM EST Severe aortic stenosis Acute blood loss anemia Iron deficiency anemia due to chronic blood loss HEMOGLOBIN A1C Routine 04/05/2024 8:27 AM EST Type 2 diabetes mellitus with hemoglobin A1c goal of less than 7.0% (HCC) ALBUMIN / CREATININE RATIO, URINE Routine 03/26/2024 2:58 PM EST Other specified diabetes mellitus without complications (HCC) COLOGUARD Unrestricted Lab 05/25/2023 7:30 AM EST Colon cancer screening FECAL OCCULT BLOOD, EIA Routine 01/13/2023 6:53 AM EDT Encounter for screening for malignant neoplasm of colon CT ABDOMEN W IV AND W ORAL CONTRAST Routine 11/11/2014 11:42 AM EDT Abdominal pain, right lower quadrant from Last 3 Months or Most Recently Relevant to Health Maintenance Results * DIABETIC EYE EXAM (07/25/2024) 07/25/2024 us History Per Patient OTHER Final Result OUTSIDE LAB (SEE SCANNED REPORT) * ECHO, COMPLETE (2D), TRANS-THORACIC (07/19/2024 3:40 PM EST) Only the most recent of3 resultswithin the time period is included. LEFT VENTRICULAR EJECTION FRACTION 55 % [facility] 07/19/2024 2:14 PM EST us Kareen HANNA ECHOCARDIOLOGY Final R esult [facility] CARDIOLOGY * (ABNORMAL) DIFFERENTIAL, AUTOMATED (07/16/2024 9:42 AM EST) Only the most recent of11 resultswithin the time period is included. WBC 10.17 4.00 - 10.80 K/uL 07/16/2024 5:17 PM EST [facility] Neutrophils % 86.3(H) 40.0 - 75.0 % 07/16/2024 5:17 PM EST [facility] Lymphocytes % 4.9(L) 18.0 - 42.0 % 07/16/2024 5:17 PM EST [facility] Monocytes % 6.3 1.0 - 11.0 % 07/16/2024 5:17 PM EST [facility] Eosinophils % 1.5 0.0 - 6.0 % 07/16/2024 5:17 PM EST [facility] Basophils % 0.6 0.0 - 2.0 % 07/16/2024 5:17 PM EST [facility] Immature Granulocytes % 0.4 0.0 - 2.0 % 07/16/2024 5:17 PM EST [facility] Absolute Neutrophils 8.78(H) 1.80 - 7.70 K/uL 07/16/2024 5:17 PM EST [facility] Absolute Lymphocytes 0.50(L) 1.00 - 4.80 K/ul 07/16/2024 5:17 PM EST [facility] Absolute Monocytes 0.64 0.00 - 1.10 K/uL 07/16/2024 5:17 PM EST [facility] Absolute Eosinophils 0.15 0.00 - 0.70 K/uL 07/16/2024 5:17 PM EST [facility] Absolute Basophils 0.06 0.00 - 0.20 K/uL 07/16/2024 5:17 PM EST [facility] Absolute Immature Granulocytes 0.04 0.00 - 0.20 K/uL 07/16/2024 5:17 PM EST [facility] Blood Venous blood specimen / Unknown Venipuncture / Unknown 07/16/2024 9:42 AM EST 07/16/2024 9:42 AM EST us Bruna HANNA LAB BLOOD ORDERABLES Fi nal Result [facility] [address] [place] [address] * (ABNORMAL) COMPREHENSIVE METABOLIC PANEL (07/16/2024 9:42 AM EST) Only the most recent of7 resultswithin the time period is included. BUN 14 6 - 20 mg/dL 07/16/2024 4:43 PM EST [facility] CREATININE 0.9 0.6 - 1.2 mg/dL 07/16/2024 4:43 PM EST [facility] EGFR >90 >=60 mL/min 07/16/2024 4:43 PM EST [facility] Comment:eGFR is calculated b ased on the CKD-EPI 2020 equation. SODIUM 140 135 - 146 mmol/L 07/16/2024 4:43 PM EST [facility] POTASSIUM 4.6 3.5 - 5.1 mmol/L 07/16/2024 4:43 PM EST [facility] CHLORIDE 104 98 - 107 mmol/L 07/16/2024 4:43 PM EST [facility] CO2 24 22 - 32 mmol/L 07/16/2024 4:43 PM EST [facility] ANION GAP 12 7 - 15 mmol/L 07/16/2024 4:43 PM EST [facility] GLUCOSE 168(H) 70 - 120 mg/dL 07/16/2024 4:43 PM EST [facility] Albumin 4.1 3.8 - 5.0 g/dL 07/16/2024 4:43 PM EST [facility] AST 30 10 - 50 U/L 07/16/2024 4:43 PM EST [facility] Alkaline Phosphatase 89 35 - 130 U/L 07/16/2024 4:43 PM EST [facility] Bilirubin, Total 0.8 <=1.2 mg/dL 07/16/2024 4:43 PM EST [facility] CALCIUM 9.4 8.4 - 10.2 mg/dL 07/16/2024 4:43 PM EST [facility] Protein 6.5 6.0 - 8.3 g/dL 07/16/2024 4:43 PM EST [facility] ALT 28 10 - 50 U/L 07/16/2024 4:43 PM EST [facility] Blood Venous blood specimen / Unknown Venipuncture / Unknown 07/16/2024 9:42 AM EST 07/16/2024 9:42 AM EST Diana Diana PA-C LAB BLOOD ORDERABLES Fi nal Result Performing Organization Address [facility] de Phone Number LABORATORY [facility] [place] [place] [address] [place] [address] * (ABNORMAL) IRON SCREEN, INCLUDING TIBC (07/16/2024 9:42 AM EST) Only the most recent of6 resultswithin the time period is included. Iron 22(L) 45 - 176 ug/dL 07/17/2024 11:20 AM EST [facility] Iron Binding Capacity 375 250 - 425 ug/dL 07/17/2024 11:20 AM EST [facility] Transferrin Saturation Percent 6(L) 15 - 55 % 07/17/2024 11:20 AM EST [facility] Blood Venous blood specimen / Unknown Venipuncture / Unknown 07/16/2024 9:42 AM EST 07/16/2024 9:42 AM EST Bruna HANNA LAB BLOOD ORDERABLES Fi nal Result Performing Organization Address [facility] de Phone Number LABORATORY [facility] [place] [place] [address] [place] [address] * (ABNORMAL) CBC (07/16/2024 9:42 AM EST) Only the most recent of26 resultswithin the time period is included. WBC 10.17 4.00 - 10.80 K/uL 07/16/2024 5:17 PM EST [facility] RBC 3.58 4.50 - 5.25 M/uL 07/16/2024 5:17 PM EST [facility] HGB 8.6(L) 14.0 - 16.8 g/dL 07/16/2024 5:17 PM EST [facility] HCT 29.8(L) 40.0 - 48.4 % 07/16/2024 5:17 PM EST [facility] MCV 83.2 82.0 - 99.5 fL 07/16/2024 5:17 PM EST LABORATORY [facility] [place] [place] MCH 24.0 27.0 - 34.0 pg 07/16/2024 5:17 PM EST LABORATORY [facility] [place] [place] MCHC 28.9 32.0 - 36.0 g/dL 07/16/2024 5:17 PM EST LABORATORY [facility] [place] [place] RDW 17.5 11.5 - 15.5 % 07/16/2024 5:17 PM EST LABORATORY [facility] [place] [place] PLT 201 140 - 400 K/uL 07/16/2024 5:17 PM EST LABORATORY [facility] [place] [place] MPV 12.4 6.6 - 11.1 fL 07/16/2024 5:17 PM EST LABORATORY [facility] [place] [place] nRBCs 0 <=0 /100 WBCs 07/16/2024 5:17 PM EST LABORATORY [facility] [place] [place] Blood Venous blood specimen / Unknown Venipuncture / Unknown 07/16/2024 9:42 AM EST 07/16/2024 9:42 AM EST Bruna HANNA LAB BLOOD ORDERABLES Fi nal Result Performing Organization Address City/[facility]/ZIP Co de Phone Number LABORATORY [place] [address] [place] [address] * (ABNORMAL) FERRITIN (07/16/2024 9:42 AM EST) Only the most recent of5 resultswithin the time period is included. [facility] Ferritin 24(L) 30 - 400 ng/mL 07/17/2024 11:47 AM EST LABORATORY [facility] [place] [place] Blood Venous blood specimen / Unknown Venipuncture / Unknown 07/16/2024 9:42 AM EST 07/16/2024 9:42 AM EST Bruna HANNA LAB BLOOD ORDERABLES Fi nal Result Performing Organization Address City/[facility]/ZIP Co de Phone Number LABORATORY [place] [address] [place] [address] * XR CHEST 1 VIEW (07/04/2024) Only the most recent of4 resultswithin the time period is included. Anatomical Region Laterality Modality Chest Other 07/04/2024 us Divya Raines Felyvíctor RADIOLOGY (RAD GENERAL) Final Result * ECHOCARDIOLOGY SCANNED RESULT (07/04/2024) 07/04/2024 us No Physician Data Unknown ECHOCARDIOLOGY Final Result * EKG (06/29/2024 1:29 PM EST) Only the most recent of6 resultswithin the time period is included. 06/29/2024 1:29 PM EST Narrative Procedure Note Divya Nation, - 06/12/2024 6:54 PM EST REASON FOR STUDY: Screening for cardiovascular condition CONCLUSIONS: Sinus rhythm with 1st degree AV block with Fusion complexes Left bundle branch block Abnormal ECG When compared with ECG of 20-Jun-2024 03:45, Fusion complexes are now Present NV interval has increased Left bundle branch block is now Present Ventricular Rate: 81 Atrial Rate: 81 NV Interval: 234 QRS Duration: 158 QT/QTc: 432/501 ms P-R-T [place]: 63 : 61 : 14 degrees us Haris Chao PA-C EKG Final Result [facility] * (ABNORMAL) BASIC METABOLIC PANEL (06/20/2024 3:32 AM EST) Only the most recent of7 resultswithin the time period is included. BUN 20 6 - 20 mg/dL 06/20/2024 4:17 AM EST [facility] CREATININE 0.8 0.6 - 1.2 mg/dL 06/20/2024 4:17 AM EST [facility] EGFR >90 >=60 mL/min 06/20/2024 4:17 AM EST [facility] Comment:eGFR is calculated b ased on the CKD-EPI 2020 equation. SODIUM 135 135 - 146 mmol/L 06/20/2024 4:17 AM EST [facility] POTASSIUM 4.1 3.5 - 5.1 mmol/L 06/20/2024 4:17 AM EST LABORAT[facility] C CHLORIDE 104 98 - 107 mmol/L 06/20/2024 4:17 AM EST LABORATORY C CO2 23 22 - 32 mmol/L 06/20/2024 4:17 AM EST LABORATORY C ANION GAP 8 7 - 15 mmol/L 06/20/2024 4:17 AM EST LABORATORY [facility] [place] [place] GLUCOSE 202(H) 70 - 120 mg/dL 06/20/2024 4:17 AM EST LAB[facility]ATORY [facility] [place] [place] CALCIUM 9.4 8.4 - 10.2 mg/dL 06/20/2024 4:17 AM EST [facility]ATORY [facility] [place] [place] Blood Venous blood specimen / Unknown Venipuncture / Unknown 06/20/2024 3:32 AM EST 06/20/2024 3:41 AM EST us Maninder Comer MD LAB BLOOD ORDERABLES Final Resul t Performing Organization Address City/[facility] Co de Phone Number LABORATORY [facility] [place] [place] [address] [place] [address] * MAGNESIUM (06/20/2024 3:32 AM EST) Only the most recent of3 resultswithin the time period is included. Magnesium 2.1 1.5 - 2.6 mg/dL 06/20/2024 4:17 AM EST LAB[facility]ATORY [facility] [place] [place] Blood Venous blood specimen / Unknown Venipuncture / Unknown 06/20/2024 3:32 AM EST 06/20/2024 3:41 AM EST us Maninder Comer MD LAB BLOOD ORDERABLES Final Resul t Performing Organization Address City/[facility] de Phone Number LABORATORY [facility] [place] [place] [address] [place] [address] * (ABNORMAL) GLUCOSE METER, POINT OF CARE (06/19/2024 10:12 PM EST) Only the most recent of35 resultswithin the time period is included. Glucose - POCT 212(H) 70 - 120 mg/dL 06/19/2024 10:22 PM EST [employer] Blood Whole blood specimen / Unknown 06/19/2024 10:12 PM EST 06/19/2024 10:22 PM EST [place] [facility] POINT OF CARE TEST DOCKED DEVICE UNSOLICITED RESULTS Final Result Performing Organization Address City/[facility]/ZIP Co de Phone Number [facility] [address] [place] [address] * ACT, POINT OF CARE (06/19/2024 12:12 PM EST) [facility] ACT 245 50 - 1,000 secs 06/19/2024 2:38 PM EST [facility] Blood 06/19/2024 12:1 2 PM EST 06/19/2024 2:38 PM EST Narrative [facility] [employer] [facility] - 06/19/2024 2:38 PM EST NORMAL (NON-HEPARINIZED) 74-137 SECONDS HEPARINIZED 200+ SECONDS CRITICAL GREATER THAN 1000 SECONDS [place] [facility] POINT OF CARE TEST DOCKED DEVICE UNSOLICITED RESULTS Final Result Performing Organization Address [facility] de Phone Number [facility] [address] [place] [address] * BNP, NT-PRO (06/19/2024 9:09 AM EST) Only the most recent of2 resultswithin the time period is included. [facility] BNP, NT-Pro 95 <300 pg/mL 06/19/2024 9:59 AM EST LABORATORY [facility] [place] [place] Blood Venous blood specimen / Unknown Venipuncture / Unknown 06/19/2024 9:09 AM EST 06/19/2024 9:30 AM EST Narrative LAB[facility]ATORY [facility] [place] [place] - 06/19/2024 9:59 AM EST Exclude Heart Failure: <300 pg/mL Diagnose Heart Failure: Age <50 yr: >450 pg/mL 50-75 yr: >900 pg/mL >75 yr: >1800 pg/mL GFR is 30-59 mL/min: >1200 pg/mL or Age-adjusted values GFR <30 mL/min: do not use, not reliable Prognostic threshold: 1000 pg/mL Khang Mir MD LAB BLOOD ORDERABLES Final Re sult Performing Organization Address [facility] de Phone Number LABORATORY [facility] [place] [place] [address] [place] [address] * HEPATIC FUNCTION PANEL (06/19/2024 9:09 AM EST) Albumin 4.4 3.8 - 5.0 g/dL 06/19/2024 9:59 AM EST [facility] AST 13 10 - 50 U/L 06/19/2024 9:59 AM EST [facility] Alkaline Phosphatase 78 35 - 130 U/L 06/19/2024 9:59 AM EST LABORATORY C ALT 10 10 - 50 U/L 06/19/2024 9:59 AM EST [facility] Bilirubin, Total 0.8 <=1.2 mg/dL 06/19/2024 9:59 AM EST LABORATORY C Bilirubin, Direct 0.3 0.0 - 0.3 mg/dL 06/19/2024 9:59 AM EST LABORATORY C Protein 7.1 6.0 - 8.3 g/dL 06/19/2024 9:59 AM EST LABORATORY C Blood Venous blood specimen / Unknown Venipuncture / Unknown 06/19/2024 9:09 AM EST 06/19/2024 9:30 AM EST Khang Mir MD LAB BLOOD ORDERABLES Final Re sult Performing Organization Address [facility] de Phone Number LABORATORY [facility] [place] [place] [address] [place] [address] * TYPE AND SCREEN (06/19/2024 9:09 AM EST) Only the most recent of3 resultswithin the time period is included. ABO AB 06/19/2024 10:12 AM EST LAB[facility]ATORY [facility] [place] [place] BLOOD BANK Rh Positive 06/19/2024 10:12 AM EST LAB[facility] [place] [place] BLOOD BANK Red Blood Cell Antibody Screen Negative 06/19/2024 10:12 AM EST LAB[facility]AT[facility] [place] [place] BLOOD BANK Specimen Expiration Date 06/22/2024 23:59 06/19/2024 10:12 AM EST LAB[facility] [place] [place] BLOOD BANK Blood Venous blood specimen / Unknown Venipuncture / Unknown 06/19/2024 9:09 AM EST 06/19/2024 9:17 AM EST Khang Mir MD LAB BLOOD BANK TEST ORDERABLE S Final Result Performing Organization Address [facility] de Phone Number LABORATORY [facility] [place] [place] BLOOD BANK [address] [place] [address] * PT INR (06/19/2024 9:09 AM EST) Only the most recent of2 resultswithin the time period is included. Prothrombin Time 14.1 11.6 - 15.2 seconds 06/19/2024 9:51 AM EST LAB[facility]ATORY [facility] [place] [place] INR 1.1 0.8 - 1.2 06/19/2024 9:51 AM EST LAB[facility] [place] [place] Blood Venous blood specimen / Unknown Venipuncture / Unknown 06/19/2024 9:09 AM EST 06/19/2024 9:30 AM EST Narrative [facility] [place] [place] - 06/19/2024 9:51 AM EST Warfarin Therapy INR: 2.0-3.0 conventional anticoagulation INR: 2.5-3.5 high intensity anticoagulation Khang Mir MD LAB BLOOD ORDERABLES Final Re sult Performing Organization Address City/[facility] de Phone Number LABORATORY [facility] [place] [place] [address] [place] [address] * PREPARE PACKED RED BLOOD CELLS (06/19/2024 8:50 AM EST) Only the most recent of6 resultswithin the time period is included. Unit Product Code [id number] 06/19/2024 6:17 PM EST LAB[facility]ATORY [facility] [place] [place] BLOOD BANK Unit Number [id number] 06/19/2024 6:17 PM EST LAB[facility] [place] [place] BLOOD BANK Unit ABO AB 06/19/2024 6:17 PM EST LAB[facility] [place] [place] BLOOD BANK Unit Rh POS 06/19/2024 6:17 PM EST LAB[facility]AT[facility] [place] [place] BLOOD BANK Unit Crossmatch Compatible 06/19/2024 10:16 AM EST [facility] BLOOD BANK Unit Status RE 06/19/2024 6:17 PM EST [facility] BLOOD BANK Unit Blood Type ABPOS 06/19/2024 6:17 PM EST [facility] BLOOD BANK Unit Expiration [id number] 06/19/2024 6:17 PM EST [facility] BLOOD BANK Unit Barcode 8400 06/19/2024 6:17 PM EST LABORATORY C BLOOD BANK Unit Product Code [id number] 06/19/2024 6:17 PM EST LABORATORY C BLOOD BANK Unit Number [id number] 06/19/2024 6:17 PM EST LABORATORY C BLOOD BANK Unit ABO AB 06/19/2024 6:17 PM EST LAB[facility]ATORY [facility] [place] [place] BLOOD BANK Unit Rh POS 06/19/2024 6:17 PM EST [facility] [place] [place] BLOOD BANK Unit Crossmatch Compatible 06/19/2024 10:16 AM EST LAB[facility] [place] [place] BLOOD BANK Unit Status RE 06/19/2024 6:17 PM EST LAB[facility] [place] [place] BLOOD BANK Unit Blood Type ABPOS 06/19/2024 6:17 PM EST LAB[facility] [place] [place] BLOOD BANK Unit Expiration [id number] 06/19/2024 6:17 PM EST LAB[facility] [place] [place] BLOOD BANK Unit Barcode 8400 06/19/2024 6:17 PM EST LAB[facility] [place] [place] BLOOD BANK 06/19/2024 8:50 AM EST Khang Mir MD BLD BANK PRODUCT ORDERABLES E dited Result - Final LABORATORY [facility] [place] [place] BLOOD BANK [address] [place] [address] * CARDIAC CATHETERIZATION REPORT (06/19/2024) Only the most recent of2 resultswithin the time period is included. DATE OF PROCEDURE 06/19/2024 [facility] Khang Sosa MD [facility] PROCEDURES TAVR - Replace Aortic Valve Perq No conscious sedation administered by cath/EP lab staff during this procedure. [facility] TOTAL CONTRAST VOLUME 45 ml [facility] TOTAL RADIATION 0.23 Gy [facility] COMPLICATIONS No complication None [facility] 06/19/2024 06/19/2024 1:1 8 PM EST Khang Mir MD CARD CATH Final Result [facility] * GI TRACT IMAGING, CAPSULE, SMALL (06/11/2024) Lori Hall PA-C MEDICINE Final R esult * (ABNORMAL) HEMOGLOBIN AND HEMATOCRIT PANEL (06/10/2024 2:04 PM EST) [facility] HGB 8.7(L) 14.0 - 16.8 g/dL 06/10/2024 2:42 PM EST [facility]ATORY [facility] HCT 28.1(L) 40.0 - 48.4 % 06/10/2024 2:42 PM EST LABORATORY GL Blood Venous blood specimen / Unknown Venipuncture / Unknown 06/10/2024 2:04 PM EST 06/10/2024 2:38 PM EST Carmencita Baldwin MD, PhD LAB BLOOD ORDERABLES Final Result Performing Organization Address [facility] de Phone Number LABORATORY [address] [address] * TRANSFUSE PACKED RED BLOOD CELLS (06/10/2024 1:06 PM EST) Only the most recent of6 resultswithin the time period is included. Carmencita Baldwin MD, PhD BLD BANK TRANFUSE ORD ERABLES Final Result * EXTRA LAVENDER TOP (06/09/2024 7:12 AM EST) Blood Venous blood specimen / Unknown 06/09/2024 7:12 AM EST 06/09/2024 7:12 AM EST Carmencita Baldwin MD, PhD LAB BLOOD ORDERABLES Final Result Performing Organization Address City/[facility] Co de Phone Number LABORATORY [address] [id number] * UPPER GI ENDOSCOPY (06/08/2024 2:02 PM EST) 06/08/2024 2:02 PM EST Narrative Procedure Note Stan Lorenzo MD - 06/08/2024 2:02 PM EST [facility] Patient Name: Rafael Cantu Procedure Date: 06/08/2024 2:02 PM Date of : 1955 Admit Type: Outpatient Note Status:Finalized Date of : 1955 Admit Type: Outpatient Age: 69 Room: OR 5 Gender: Male Note Status: Finalized Procedure: Upper GI endoscopy / small bowel enteroscopy Indications: Acute post hemorrhagic anemia Providers: Belén Hernadez MD (Doctor) Referring MD: Stan Lorenzo MD Medicines: See the Anesthesia note for documentation of theadministered medications Complications: No immediate complications. Procedure: Pre-Anesthesia Assessment: - ASA Grade Assessment: III - A patient with severesystemic disease. After obtaining informed consent, the endoscope waspassed under direct vision. All instruments were visually inspected immediatelybefore and after removal from the patient to ensure they are fully intact. Throughoutthe procedure, the patient's blood pressure, pulse, and oxygen saturations weremonitored continuously. The PCF-H180AL Colonoscope ([id number]) was introducedthrough the mouth, and advanced to the proximal jejunum. The upper GI endoscopy wasaccomplished without difficulty. The patient tolerated the procedure well. Findings & Specimens: The examined esophagus was normal. The stomach was normal. The duodenum was normal. There were multiple non-bleeding angioectasias throughout the smallintestine. 10 angioectasias were clipped, using a total of 13 clips. There was bilious fluidthroughout the entire examined small intestine. Pictures from the exam were lost. Recommendation: Discharge pt floor. Clears today, and then adv to reg diet if hgbstable. Octreotide x 48 hours for angioectasia bleeding. Belén Hernadez MD 06/08/2024 4:12:58 PM This report has been signed electronically. us Stan Lorenzo MD GASTRO UPPER Final Result * (ABNORMAL) RETICULOCYTE PANEL (06/08/2024 7:05 AM EST) Reticulocyte Percent 5.40(H) 0.80 - 1.90 % 06/08/2024 9:25 AM EST LABORATORY [facility] Absolute Reticulocyte 129.1(H) 31.3 - 100.1 K/uL 06/08/2024 9:25 AM EST LABORATORY [facility] Immature Reticulocyte Fraction 40.4(H) 2.5 - 20.6 % 06/08/2024 9:25 AM EST LAB[facility]ATORY [facility] Reticulocyte Hemoglobin 20.6(L) 29.7 - 37.4 pg 06/08/2024 9:25 AM EST LAB[facility]ATORY [facility] Blood Venous blood specimen / Unknown Venipuncture / Unknown 06/08/2024 7:05 AM EST 06/08/2024 7:24 AM EST us Stan Lorenzo MD LAB BLOOD ORDERABLES Final Resu lt LABORATORY [address] [address] * FOLIC ACID (06/08/2024 7:04 AM EST) Pathologist [facility] Folic Acid >20.0 >4.5 ng/mL 06/08/2024 5:06 PM EST LABORATORY [facility] [place] [place] Blood Venous blood specimen / Unknown Venipuncture / Unknown 06/08/2024 7:04 AM EST 06/08/2024 7:24 AM EST us Stan Lorenzo MD LAB BLOOD ORDERABLES Final Resu lt LABORATORY [address] [address] * LD (06/08/2024 7:04 AM EST) Pathologist [facility] LD 173 <=250 U/L 06/08/2024 9:4 6 AM EST LAB[facility]ATORY [facility] Blood Venous blood specimen / Unknown Venipuncture / Unknown 06/08/2024 7:04 AM EST 06/08/2024 7:24 AM EST us Stan Lorenzo MD LAB BLOOD ORDERABLES Final Resu lt Performing Organization Address City/[facility]/ZIP Co de Phone Number LABORATORY [facility] [address] [place] [address] * HAPTOGLOBIN (06/08/2024 7:04 AM EST) Haptoglobin 125 30 - 200 mg/dL 06/08/2024 4:00 PM EST LABORATORY [facility] [place] [place] Blood Venous blood specimen / Unknown Venipuncture / Unknown 06/08/2024 7:04 AM EST 06/08/2024 7:24 AM EST us Stan Lorenzo MD LAB BLOOD ORDERABLES Final Resu lt Performing Organization Address [facility] Co de Phone Number LABORATORY [facility] [place] [place] [address] [place] [address] * VITAMIN B12 (06/08/2024 7:04 AM EST) Vitamin B12 492 232 - 1,245 pg/mL 06/08/2024 5:06 PM EST LAB[facility]ATORY [facility] [place] [place] Blood Venous blood specimen / Unknown Venipuncture / Unknown 06/08/2024 7:04 AM EST 06/08/2024 7:24 AM EST Stan Lorenzo MD LAB BLOOD ORDERABLES Final Resu lt Performing Organization Address [facility] Co de Phone Number LABORATORY [facility] [place] [place] [address] [place] [address] * CT PULMONARY EMBOLUS W CONTRAST (06/07/2024 9:41 PM EST) Anatomical Region Laterality Modality Chest, Cardio, Body Computed Victor Manuel ography 06/07/2024 9:30 PM EST Impressions 06/07/2024 10:15 PM EST IMPRESSION: 1. No central pulmonary arterial filling defect is seen. Subsegmental vessels are not well evaluated due to motion and technical factors related to small bore IV. 2. Parenchymal consolidations at the bases could be on the basis of atelectasis but underlying infection is not completely excluded. COMMENTS: The presence of pulmonary emphysema on CT is an independent risk factor for lung cancer. In the absence of a history or active diagnosis of lung cancer, it is recommended that this patient with emphysema be evaluated for enrollment in a low dose CT lung cancer screening program. THIS DOCUMENT HAS BEEN ELECTRONICALLY SIGNED BY PRAMOD URIOSETGUI MD Narrative 06/07/2024 10:15 PM EST PROCEDURE INFORMATION: Exam: CTA Chest With Contrast Exam date and time: 06/07/2024 9:30 PM Age: 69 years old Clinical indication: Shortness of breath; Additional info: Clinical signs of dvt, SOB, tachy TECHNIQUE: Imaging protocol: Computed tomographic angiography of the chest with contrast. Exam focused on the arteries. 3D rendering (Not supervised by radiologist): MIP and/or 3D reconstructed images were created by the technologist. Radiation optimization: All CT scans at this facility use at least one of these dose optimization techniques: automated exposure control; mA and/or kV adjustment per patient size (includes targeted exams where dose is matched to clinical indication); or iterative reconstruction. Contrast material: ISOVUE 370; Contrast volume: 80 ml; Contrast route: INTRAVENOUS (IV); COMPARISON: 1. CR (CXR AP X-HESS GRID, CHEST, CXR AP GRID Crosswise) 05/01/2024 12:[address] Cardiac^TAVR LARGE (Adult) 05/07/2024 10:26 AM 3. XA Cardiac ECO Dose 05/29/2024 9:16 AM FINDINGS: Pulmonary arteries: There is fair opacification of the pulmonary arterial tree. No central pulmonary arterial filling defect is seen. Aorta: There is atherosclerotic disease of the visualized aorta and its major branch vessels. Other arteries: Subsegmental vessels are not well evaluated due to motion and factors related to small bore IV. Lungs: Scattered areas of bronchial wall thickening which are likely chronic inflammatory. A few areas of subpleural reticulation are noted, nonspecific. There are scattered areas of emphysema throughout the lungs. Parenchymal consolidations at the bases could be on the basis of atelectasis but underlying infection is not completely excluded. Pleural spaces: Unremarkable. No pneumothorax. No pleural effusion. Heart: Unremarkable. No cardiomegaly. No pericardial effusion. Coronary arteries: There is mild coronary atherosclerotic disease/calcification although evaluation is limited secondary to the non gated nature of the study. Lymph nodes: There are mildly prominent mediastinal lymph nodes which are nonenlarged. Kidneys: There is nonspecific bilateral perinephric stranding. Intestine: There is large volume stool throughout the colon. Bones/joints: There is diffuse degenerative disease of the visualized osseous structures. Soft tissues: Unremarkable. Other findings: Motion artifact mildly limits evaluation. Procedure Note Pramod Uriostegui MD - 06/07/2024 PROCEDURE INFORMATION: Exam: CTA Chest With Contrast Exam date and time: 06/07/2024 9:30 PM Age: 69 years old Clinical indication: Shortness of breath; Additional info: Clinical signsof dvt, SOB, tachy TECHNIQUE: Imaging protocol: Computed tomographic angiography of the chest withcontrast. Exam focused on the arteries. 3D rendering (Not supervised by radiologist): MIP and/or 3D reconstructed images were created by the technologist. Radiation optimization: All CT scans at this facility use at least one ofthese dose optimization techniques: automated exposure control; mA and/or kV adjustment per patient size (includes targeted exams where dose is matchedto clinical indication); or iterative reconstruction. Contrast material: ISOVUE 370; Contrast volume: 80 ml; Contrast route: INTRAVENOUS (IV); COMPARISON: 1. CR (CXR AP X-HESS GRID, CHEST, CXR AP GRID Crosswise) 412:[address] Cardiac^TAVR LARGE (Adult) 05/07/2024 10:26 AM 3. XA Cardiac ECO Dose 05/29/2024 9:16 AM FINDINGS: Pulmonary arteries: There is fair opacification of the pulmonary arterialtree. No central pulmonary arterial filling defect is seen. Aorta: There is atherosclerotic disease of the visualized aorta and itsmajor branch vessels. Other arteries: Subsegmental vessels are not well evaluated due to motionand factors related to small bore IV. Lungs: Scattered areas of bronchial wall thickening which are likelychronic inflammatory. A few areas of subpleural reticulation are noted,nonspecific. There are scattered areas of emphysema throughout the lungs. Parenchymal consolidations at the bases could be on the basis of atelectasis butunderlying infection is not completely excluded. Pleural spaces: Unremarkable. No pneumothorax. No pleural effusion. Heart: Unremarkable. No cardiomegaly. No pericardial effusion. Coronary arteries: There is mild coronary atheroscleroticdisease/calcification although evaluation is limited secondary to the non gated nature of thestudy. Lymph nodes: There are mildly prominent mediastinal lymph nodes which are nonenlarged. Kidneys: There is nonspecific bilateral perinephric stranding. Intestine: There is large volume stool throughout the colon. Bones/joints: There is diffuse degenerative disease of the visualizedosseous structures. Soft tissues: Unremarkable. Other findings: Motion artifact mildly limits evaluation. IMPRESSION IMPRESSION: 1. No central pulmonary arterial filling defect is seen. Subsegmentalvessels are not well evaluated due to motion and technical factors related tosmall bore IV. 2. Parenchymal consolidations at the bases could be on the basis of atelectasis but underlying infection is not completely excluded. COMMENTS: The presence of pulmonary emphysema on CT is an independent risk factorfor lung cancer. In the absence of a history or active diagnosis of lungcancer, it is recommended that this patient with emphysema be evaluated forenrollment in a low dose CT lung cancer screening program. THIS DOCUMENT HAS BEEN ELECTRONICALLY SIGNED BY PRAMOD URIOSTEGUI MD Haris Chao PA-C RAD CT Final Result * (ABNORMAL) TROPONIN T, HIGH SENSITIVITY (06/07/2024 8:38 PM EST) Only the most recent of3 resultswithin the time period is included. Troponin T, High Sensitivity 28(H) <=22 ng/L 06/07/2024 9:03 PM EST LABORATORY [facility] Blood Venous blood specimen / Unknown Venipuncture / Unknown 06/07/2024 8:38 PM EST 06/07/2024 8:41 PM EST Thomas Bolaños DO LAB BLOOD ORDERABLES Final Re sult LABORATORY [facility] [address] [place] [address] * EXTRA ANGELO TOP (06/07/2024 6:22 PM EST) Blood Venous blood specimen / Unknown 06/07/2024 6:22 PM EST 06/07/2024 6:27 PM EST [facility] LAB BLOOD ORDERABLES Final Re sult Performing Organization Address City/[facility]/ZIP Co de Phone Number LABORATORY [address] [address] * EXTRA PINK TOP (06/07/2024 6:22 PM EST) Blood Venous blood specimen / Unknown 06/07/2024 6:22 PM EST 06/07/2024 6:27 PM EST [facility] LAB BLOOD ORDERABLES Final Re sult Performing Organization Address City/[facility] Co de Phone Number LABORATORY [address] [address] * (ABNORMAL) RENAL FUNCTION PANEL (05/29/2024 7:27 AM EST) BUN 15 6 - 20 mg/dL 05/29/2024 8:09 AM EST [facility] CREATININE 0.7 0.6 - 1.2 mg/dL 05/29/2024 8:09 AM EST [facility] EGFR >90 >=60 mL/min 05/29/2024 8:09 AM EST [facility] Comment:eGFR is calculated b ased on the CKD-EPI 2020 equation. SODIUM 138 135 - 146 mmol/L 05/29/2024 8:09 AM EST [facility] POTASSIUM 4.1 3.5 - 5.1 mmol/L 05/29/2024 8:09 AM EST [facility] CHLORIDE 103 98 - 107 mmol/L 05/29/2024 8:09 AM EST [facility] CO2 23 22 - 32 mmol/L 05/29/2024 8:09 AM EST [facility] ANION GAP 12 7 - 15 mmol/L 05/29/2024 8:09 AM EST [facility] GLUCOSE 207(H) 70 - 120 mg/dL 05/29/2024 8:09 AM EST [facility] CALCIUM 9.7 8.4 - 10.2 mg/dL 05/29/2024 8:09 AM EST [facility] Albumin 4.3 3.8 - 5.0 g/dL 05/29/2024 8:09 AM EST [facility] Phosphorus 3.6 2.5 - 4.8 mg/dL 05/29/2024 8:09 AM EST LAB[facility]ATORY [facility] [place] [place] Blood Venous blood specimen / Unknown Venipuncture / Unknown 05/29/2024 7:27 AM EST 05/29/2024 7:35 AM EST us Jessica Zhang CYNDI LAB BLOOD ORDERABLES Final Result LABORATORY [facility] [place] [place] [address] [place] [address] * CTA TAVR GATED STUDY (05/07/2024 10:34 AM EST) Anatomical Region Laterality Modality Chest, Abdomen, Pelvis, Body Com puted Tomography 05/07/2024 7:44 PM EST Narrative 05/07/2024 7:42 PM EST EXAM: 1. CTA CHEST WITH CONTRAST 2. CTA ABDOMEN PELVIS WITH CONTRAST 3. CTA TAVR HISTORY: pre TAVR COMPARISON: CT abdomen from 11/11/2014. TECHNIQUE: 1. CTA chest with intravenous contrast was performed. MIP images were obtained and reviewed. 2. CTA abdomen pelvis with intravenous contrast was performed. MIP images were obtained and reviewed. 3. CTA TAVR CONTRAST: 80 mL intravenously. FINDINGS: CTA CHEST: PULMONARY ARTERIES: Normal in size. No large central or segmental pulmonary embolism. AORTA: Aortic valve appears trileaflet with moderate annular calcifications. Total annular calcium score of 1701. No significant sub valvular calcifications. Maximum annular distension measured on 20% R-R. 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 Patent arch vessels. HEART: Normal in size. Moderate mitral annular calcifications. Moderate to severe trivessel coronary artery atherosclerosis. No pericardial effusion.. MEDIASTINUM/JEAN: No lymphadenopathy. CHEST WALL/AXILLA: Unremarkable. LUNGS/PLEURA: Emphysema. No suspicious pulmonary nodules. Central airways are clear. No pleural effusion or pneumothorax. CTA ABDOMEN PELVIS: LIVER: Unremarkable. GALLBLADDER/BILE DUCTS: Unremarkable. PANCREAS: Unremarkable. GI TRACT: Surgical clips in the cecal region. Scattered colonic diverticula. No evidence of bowel obstruction. SPLEEN: Unremarkable. LYMPH NODES: No lymphadenopathy. ADRENAL GLANDS: Left adrenal gland thickening/nodularity. KIDNEYS/URETERS: Irregular area of masslike enhancement in the central aspect of the left kidney measuring 26.2 mm x 36.3 mm (series 10, image 373). Further evaluation with MRI is recommended. Mild perinephric stranding. URINARY BLADDER: Unremarkable. REPRODUCTIVE ORGANS: Prostate is unremarkable. VASCULATURE: Scattered atherosclerotic calcifications without aortic aneurysm. Celiac, SMA and RADHA are patent. Single patent renal arteries bilaterally. Moderate iliofemoral atherosclerosis without significant stenosis. Average min diameter abdominal aorta: 17.9 mm Average max diameter abdominal aorta: 23.4 mm Min left iliofemoral diameter: 8.08 mm Min right iliofemoral diameter: 7.24 mm Cannulation zone calcifications: [id number]-lsuwlaeo MISCELLANEOUS: No free fluid or free air. Small fat containing bilateral inguinal hernias. MUSCULOSKELETAL: Polyarticular degenerative changes. Fusion of the T12 through L2 vertebral bodies. Anterolisthesis of L5 on S1 secondary to pars defects. No acute osseous abnormalities IMPRESSION: Aortic valve appears trileaflet with moderate annular calcifications. Total annular calcium score of 1701. No significant sub valvular calcifications. Maximum annular distension measured on 20% R-R. Annulus measures 4.87 cm2. LVOT 4 mm below annular plane measures5.17 cm2. Minimal coronary ostia height from annulus 12.9 mm on the left. Severe trivessel coronary artery atherosclerosis. Moderate mitral annular calcifications. No significant iliofemoral atherosclerosis. Minimal luminal diameter of 7.2 mm on the right. Mild tortuosity. Irregular in area of nodular enhancement measuring up to 36 mm in the central aspect of the left kidney, possibly artifactual. Further evaluation with MRI is recommended to rule out underlying mass. Procedure Note Sean Parisi MD - 05/07/2024 EXAM: 1. CTA CHEST WITH CONTRAST 2. CTA ABDOMEN PELVIS WITH CONTRAST 3. CTA TAVR HISTORY: pre TAVR COMPARISON: CT abdomen from 11/11/2014. TECHNIQUE: 1. CTA chest with intravenous contrast was performed. MIP images wereobtained and reviewed. 2. CTA abdomen pelvis with intravenous contrast was performed. MIP imageswere obtained and reviewed. 3. CTA TAVR CONTRAST: 80 mL intravenously. FINDINGS: CTA CHEST: PULMONARY ARTERIES: Normal in size. No large central or segmentalpulmonary embolism. AORTA: Aortic valve appears trileaflet with moderate annularcalcifications. Total annular calcium score of 1701. No significant subvalvular calcifications. Maximum annular distension measured on 20% R-R. 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 Patent archvessels. HEART: Normal in size. Moderate mitral annular calcifications. Moderateto severe trivessel coronary artery atherosclerosis. No pericardialeffusion.. MEDIASTINUM/JEAN: No lymphadenopathy. CHEST WALL/AXILLA: Unremarkable. LUNGS/PLEURA: Emphysema. No suspicious pulmonary nodules. Centralairways are clear. No pleural effusion or pneumothorax. CTA ABDOMEN PELVIS: LIVER: Unremarkable. GALLBLADDER/BILE DUCTS: Unremarkable. PANCREAS: Unremarkable. GI TRACT: Surgical clips in the cecal region. Scattered colonicdiverticula. No evidence of bowel obstruction. SPLEEN: Unremarkable. LYMPH NODES: No lymphadenopathy. ADRENAL GLANDS: Left adrenal gland thickening/nodularity. KIDNEYS/URETERS: Irregular area of masslike enhancement in the centralaspect of the left kidney measuring 26.2 mm x 36.3 mm (series 10, ). Further evaluation with MRI is recommended. Mild perinephricstranding. URINARY BLADDER: Unremarkable. REPRODUCTIVE ORGANS: Prostate is unremarkable. VASCULATURE: Scattered atherosclerotic calcifications without aorticaneurysm. Celiac, SMA and RADHA are patent. Single patent renal arteriesbilaterally. Moderate iliofemoral atherosclerosis without significantstenosis. Average min diameter abdominal aorta: 17.9 mm Average max diameter abdominal aorta: 23.4 mm Min left iliofemoral diameter: 8.08 mm Min right iliofemoral diameter: 7.24 mm Cannulation zone calcifications: [id number]-[id number] MISCELLANEOUS: No free fluid or free air. Small fat containing bilateralinguinal hernias. MUSCULOSKELETAL: Polyarticular degenerative changes. Fusion of the [id number] L2 vertebral bodies. Anterolisthesis of L5 on S1 secondary topars defects. No acute osseous abnormalities IMPRESSION: Aortic valve appears trileaflet with moderate annular calcifications.Total annular calcium score of 1701. No significant sub valvularcalcifications. Maximum annular distension measured on 20% R-R. Annulus measures 4.87 cm2.LVOT 4 mm below annular plane measures5.17 cm2. Minimal coronary ostia height from annulus 12.9 mm on the left. Severetrivessel coronary artery atherosclerosis. Moderate mitral annularcalcifications. No significant iliofemoral atherosclerosis. Minimal luminal diameter of7.2 mm on the right. Mild tortuosity. Irregular in area of nodular enhancement measuring up to 36 mm in thecentral aspect of the left kidney, possibly artifactual. Furtherevaluation with MRI is recommended to rule out underlying mass. us Khang Mir MD RAD CT Final Result * (ABNORMAL) HGB (05/03/2024 7:00 PM EST) Only the most recent of7 resultswithin the time period is included. HGB 8.1(L) 14.0 - 16.8 g/dL 05/03/2024 7:08 PM EST LAB[facility]ATORY [facility] Blood Venous blood specimen / Unknown Venipuncture / Unknown 05/03/2024 7:00 PM EST 05/03/2024 7:04 PM EST us Min Min Jr BOWLING LAB BLOOD ORDERABLES Final Resul t LAB[facility]ATORY [facility] [address] [place] [address] * COLONOSCOPY (05/02/2024 1:26 PM EST) 05/02/2024 1:26 PM EST Narrative Procedure Note Conor Allen DO - 05/02/2024 1:26 PM EST [facility] Patient Name: Rafael Cantu Procedure Date: 05/02/2024 1:26 PM Date of : 1955 Admit Type: Outpatient Note Status:Finalized Date of : 1955 Admit Type: Outpatient Age: 68 Room: OR 4 Gender: Male Note Status: Finalized Procedure: Colonoscopy Indications: Iron deficiency anemia Providers: Omid Bonner MD (Doctor) Referring MD: Conor Allen MD, Declan Kingsley Medicines: Propofol per Anesthesia Complications: No immediate complications. Estimated blood loss:None. Procedure: Pre-Anesthesia Assessment: - - Prior to the procedure, a History and Physicalwas performed, patient medications, allergies and sensitivities were reviewed. Thepatient's tolerance of previous anesthesia was reviewed. See [facility] for furtherdetails. - The risks, benefits, and alternatives of theprocedure including the sedation options and risks were discussed with the patient.All questions were answered and informed consent was obtained. - Patient identification and proposed procedurewere verified prior to the procedure by the physician and the nurse. The procedure wasverified in the procedure room. - See [facility] for documentation of the pre-procedureassessment including ASA status. - After I obtained informed consent, the scope wascarefully and meticulously passed under direct vision only when the lumen wasdefinitively identified. CO2 insufflation was utilized throughout the entire procedureexclusively. After I obtained informed consent, the scope waspassed under direct vision. All instruments were visually inspected immediatelybefore and after removal from the patient to ensure they are fully intact. Throughout the procedure, the patient's bloodpressure, pulse, and oxygen saturations were monitored continuously. The [id number] ([id number]) was introduced through the anus and advanced to the cecum,identified by appendiceal orifice and ileocecal valve. The colonoscopy was performedwithout difficulty. The patient tolerated the procedure well. The quality of thebowel preparation was fair. Findings & Specimens: The terminal ileum appeared normal. Multiple small-mouthed diverticula were found in the sigmoid colon. Internal hemorrhoids were found during retroflexion. A single localized angioectasia without bleeding was found in thececum. Coagulation for bleeding prevention using argon beam at 0.8 liters/minute and 20 somers wassuccessful. To prevent bleeding post-intervention, three hemostatic clips were successfully placed(MR conditional). There was no bleeding during, or at the end, of the procedure. The exam was otherwise without abnormality on direct and retroflexionviews. Impression: - Preparation of the colon was fair. - The examined portion of the ileum was normal. - Diverticulosis in the sigmoid colon. - Internal hemorrhoids. - A single non-bleeding colonic angioectasia.Treated with argon beam coagulation. Clips (MR conditional) were placed. - The examination was otherwise normal on directand retroflexion views. - No specimens collected. Recommendation: - Return patient to hospital recio for possibledischarge same day. - Return to referring physician as previouslyscheduled. - Follow clinically, consider outpatient Videocapsule endoscopy, however, given green stool in colon would not delay Aortic valverepair Omid Bonner MD 05/02/2024 2:19:26 PM This report has been signed electronically. Conor Allen DO GASTRO LOWER Final Result * PHOSPHORUS (05/02/2024 5:42 AM EST) Phosphorus 3.9 2.5 - 4.8 mg/dL 05/02/2024 6:24 AM EST [facility] Blood Venous blood specimen / Unknown Venipuncture / Unknown 05/02/2024 5:42 AM EST 05/02/2024 5:51 AM EST Sharon Chavez PA-C LAB BLOOD ORDERABLES Final R esult [facility] [address] [place] [address] * EXTRA GREEN TOP WITH GEL (05/01/2024 4:21 PM EST) Blood Venous blood specimen / Unknown 05/01/2024 4:21 PM EST 05/01/2024 4:40 PM EST Vasile Montalvo MD LAB BLOOD ORDERABLES Final Result Performing Organization Address [facility] de Phone Number LABORATORY [address] [address] * ABO/RH (05/01/2024 11:04 AM EST) ABO AB 05/01/2024 11:25 AM EST [facility] BLOOD BANK Rh Positive 05/01/2024 11:25 AM EST [facility] BLOOD BANK Blood Venous blood specimen / Unknown Venipuncture / Unknown 05/01/2024 11:04 AM EST 05/01/2024 11:24 AM EST Woody Shea MD LAB BLOOD BANK TEST ORDERABLE S Final Result Performing Organization Address [facility] de Phone Number [facility] BLOOD BANK [address] [place] [id number] * EXTRA LIGHT BLUE TOP (05/01/2024 10:24 AM EST) Blood Venous blood specimen / Unknown 05/01/2024 10:24 AM EST 05/01/2024 10:34 AM EST Woody Shea MD LAB BLOOD ORDERABLES Final Re sult Performing Organization Address [facility] de Phone Number LABORATORY [address] [address] * HEMOGLOBIN A1C (04/05/2024 8:27 AM EST) Hemoglobin A1C 4.9 4.0 - 5.6 % 04/05/2024 8:32 PM EST LABORATORY [facility] [place] [place] Comment:The use of HbA1c to monitor glycemic status is based on normal hemoglobin and HbA composition. This test should not be used in patients with abnormal hemoglobin that affects the half life of the red blood cell or the in vivo glycation rates. Estimated Average Glucose 94 <126 mg/dL 04/05/2024 8:32 PM EST LAB[facility]ORY [facility] [place] [place] Blood Venous blood specimen / Unknown Venipuncture / Unknown 04/05/2024 8:27 AM EST 04/05/2024 8:31 AM EST Shira Black MD LAB BLOOD ORDERABLES Final Resul t Performing Organization Address City/[facility]/ZIP Co de Phone Number LABORATORY [facility] [place] [place] [address] [place] [address] * (ABNORMAL) ALBUMIN / CREATININE RATIO, URINE (03/26/2024 2:58 PM EST) Albumin, Random Urine 68.00 mg/dL 03/27/2024 2:07 PM EST LABORATORY [facility] [place] Comment:This testing was per formed as part of a [facility] [employer] fulfillment initiative Creatinine, Random Urine 121 mg/dL 03/27/2024 2:07 PM EST LAB[facility]ORY [facility] [place] Albumin / Creatinine Ratio, Urine 562(H) <30 mg/g Creat 03/27/2024 2:07 PM EST LAB[facility] [place] Urine Urine specimen obtained by clean catch procedure / Unknown 03/26/2024 2:58 PM EST 03/26/2024 3:53 PM EST Narrative LAB[facility]ATORY [facility] [place] - 03/27/2024 2:07 PM EST Normal: <30 mg/g creatinine High: 30-300 mg/g creatinine Very High: >300 mg/g creatinine Nephrotic: >2200 mg/g creatinine us Vera Shaw MD LAB URINE ORDERABLES F inal Result LAB[facility]ATORY [facility] [place] [address] [place] [address] * (ABNORMAL) COLOGUARD (05/25/2023 7:30 AM EST) COLOGUARD Positive( A) Negative [facility] (CLIA #:[id number]) Comment: POSITIVE TEST RESULT. A positive Cologuard result should be followed with a colonoscopy or visual examination of the colon. The normal value (reference range) for this assay is negative. TEST DESCRIPTION: Composite algorithmic analysis of stool DNA-biomarkers with hemoglobin immunoassay. Quantitative values of individual biomarkers are not reportable and are not associated with individual biomarker result reference ranges. Cologuard is intended for colorectal cancer screening of adults of either sex, 45 years or older, who are at average-risk for colorectal cancer (CRC). Cologuard has been approved for use by the U.S. FDA. The performance of Cologuard was established in a cross sectional study of average-risk adults aged 50-84. Cologuard performance in patients ages 45 to 49 years was estimated by sub-group analysis of near-age groups. Colonoscopies performed for a positive result may find as the most clinically significant lesion: colorectal cancer [4.0%], advanced adenoma (including sessile serrated polyps greater than or equal to 1cm diameter) [20%] or non- advanced adenoma [31%]; or no colorectal neoplasia [45%]. These estimates are derived from a prospective cross-sectional screening study of 10,000 individuals at average risk for colorectal cancer who were screened with both Cologuard and colonoscopy. (Xochilt Al. et al, N Engl J Med 2014;370(14):6173-5167.) Cologuard may produce a false negative or false positive result (no colorectal cancer or precancerous polyp present at colonoscopy follow up). A negative Cologuard test result does not guarantee the absence of CRC or advanced adenoma (pre-cancer). The current Cologuard screening interval is every 3 years. ([place] [employer] and U.S. Multi-Society Task Force). Cologuard performance data in a 10,000 patient pivotal study using colonoscopy as the reference method can be accessed at the following location: www.[employer].com/results. Additional description of the Cologuard test process, warnings and precautions can be found at www.[email or web address].com. Stool 05/25/2023 7:30 AM EST 05/26/2023 2:59 PM EST Declan Dejesus MD LAB FLUID AND STOOL ORDERABLES Final Result Performing Organization Address City/[facility]/ZIP Co de Phone Number [employer] [address] , [address] [place] [address], [facility] [employer] (CLIA #:[id number]) [address] [place] [address] * (ABNORMAL) FECAL OCCULT BLOOD, EIA (01/13/2023 6:53 AM EDT) iFOBT Positive( A) Negative 01/13/2023 9:40 AM EDT LABORATORY [facility] [place] Comment:This testing was per formed as part of a [facility] Care-[employer] fulfillment initiative Stool Stool specimen / Unknown 01/13/2023 6:53 AM EDT 01/13/2023 7:43 AM EDT us Vera Shaw MD LAB FLUID AND STOOL OR DERABLES Final Result Performing Organization Address [facility] de Phone Number LABORATORY [facility] [place] [address] [place] [address] * ABDOMEN CT WITH IV AND WITH PO CONTRAST (11/11/2014 11:42 AM EDT) Anatomical Region Laterality Modality Other 11/11/2014 11:4 2 AM EDT Narrative 11/11/2014 1:58 PM EDT EXAM EXAM: CT ABDOMEN WITH IV CONTRAST- W/ PO DATE and TIME: 11/11/2014 11:42 AM HISTORY CLINICAL INFORMATION: persistent right sided abdominal pain, worsening over past six months. had US gb and that was normal TECHNIQUE Oral Contrast: Oral contrast was administered. IV Contrast: 96 milliliterml of OPTIRAY 350 was injected intravenously; Prepared:100 milliliter; Not Used:4 milliliter COMPARISON No comparisons FINDINGS LOWER CHEST: HEART(visualized): Unremarkable LUNG BASES: Mild dependent changes. ABDOMEN/PELVIS: LINES AND DEVICES: None LIVER: Unremarkable BILE DUCTS: Unremarkable GALLBLADDER: No radiodense calculi. PANCREAS: Unremarkable SPLEEN: Unremarkable ADRENALS: Mild nonspecific thickening/nodularity of the left adrenal gland. KIDNEYS/URETERS: Unremarkable BOWEL: Visualized bowel is normal in caliber. LYMPH NODES: No pathologically enlarged lymph nodes are seen. VESSELS: Aortic calcifications. PERITONEUM/RETROPERITONEUM: Unremarkable ABDOMINAL WALL/SOFT TISSUES: Unremarkable BONES: Advanced thoracolumbar degenerative changes. IMPRESSION No acute findings in the abdomen. Incidental/chronic findings, as above. Authenticated By Authenticating Date Authenticating Time Reading Providers(s) YUNIOR CARPIO MD 11-11-2014 13:58 YUNIOR CARPIO MD Procedure Note Yunior Carpio MD - 11/11/2014 EXAM EXAM: CT ABDOMEN WITH IV CONTRAST- W/ PO DATE and TIME: 11/11/2014 11:42 AM HISTORY CLINICAL INFORMATION: persistent right sided abdominal pain, worseningover past six months. had US gb and that was normal TECHNIQUE Oral Contrast: Oral contrast was administered. IV Contrast: 96 milliliterml of OPTIRAY 350 was injected intravenously;Prepared:100 milliliter; Not Used:4 milliliter COMPARISON No comparisons FINDINGS LOWER CHEST: HEART(visualized): Unremarkable LUNG BASES: Mild dependent changes. ABDOMEN/PELVIS: LINES AND DEVICES: None LIVER: Unremarkable BILE DUCTS: Unremarkable GALLBLADDER: No radiodense calculi. PANCREAS: Unremarkable SPLEEN: Unremarkable ADRENALS: Mild nonspecific thickening/nodularity of the left adrenalgland. KIDNEYS/URETERS: Unremarkable BOWEL: Visualized bowel is normal in caliber. LYMPH NODES: No pathologically enlarged lymph nodes are seen. VESSELS: Aortic calcifications. PERITONEUM/RETROPERITONEUM: Unremarkable ABDOMINAL WALL/SOFT TISSUES: Unremarkable BONES: Advanced thoracolumbar degenerative changes. IMPRESSION No acute findings in the abdomen. Incidental/chronic findings, as above. Authenticated By Authenticating Date AuthenticatingTime Reading Providers(s) YUNIOR CARPIO MD 11-11-2014 13:58YUNIOR CARPIO MD us Fady Barone III, MD RAD CT Final R esult from Last 3 Months or Most Recently Relevant to Health Maintenance Advance Directives * Full Code (Latest Code [...] the patient have Health Care Power of Washer And Capper Machine Operator? Yes, not currently available * No Code Date Activated Date Inactivated Comments 05/01/2024 11:50 AM 05/02/2024 9:14 AM This orde r reflects the patients wishes and were consensually agreed upon. Question Answer Comments Discussion of Advance Directives occurred with: Patient Healthcare Agents on File Name Relationship Healthcare Agent [facility] Communication Mattie Branch Adult Child First Alternat e Health Care Agent (per Health Care Power of Washer And Capper Machine Operator document) Care Teams Wildlife Protector Relationship Specialty Start Date End Date September, Declan Person MD [address] [facility] [place] [id number] PCP - General Family Medicine 05/20/23
--- OUTSIDE RECORDS SUMMARY | 2024-07-31 09:02 | External Medical Summary | Summary of Care ---
Author Name Unknown Organization [facility] Address [address] [place] [address] Phone [phone] Care Team Providers Care Exhauster Engineer Name Role Phone SeptemberDeclan MD Primary Care Provider [phone] Encounter Details Date Type Department Care Team (Late st Contact Info) Description 07/26/2024 Orders Only [facility] [address] [phone] Declan Dejesus MD [address] [place] [address] Allergies Active Allergy Reactions Criticality Noted [...] 90 Capsule 3 4 10:16 AM EST 08/19/19 24 Active Glimepiride 2 MG Oral Tablet (Amaryl) TAKE ONE TABLET BY MOUTH DAILY WITH BREAKFAST 90 Tablet 3 5 3:36 PM EST 11/21/19 24 Active Latanoprost 0.005 % Ophthalmic Solution (Xalatan) Instill 1 drop into both eyes at bedtime 10 mL 3 5 1:46 PM EST 01/18/20 24 Active Timolol Maleate 0.25 % Ophthalmic Solution (Timoptic) Instill 2 Drops into both eyes in the morning. 15 mL 3 4 11:26 AM EST 02/13/20 24 Active Acetaminophen 500 MG Oral Capsule Take 2 Capsules by mouth every 4 hours as needed for Pain, Mild or Fever >38C(100.5F) . Active Vitamin C 1000 MG Oral Tablet [...] 90 Tablet 3 4 10:09 AM EST 05/02/20 24 Active metFORMIN HCl 1000 MG Oral Tablet (Glucophage)Indic ations:Type 2 diabetes mellitus with hemoglobin A1c goal of less than 7.0% (HCC) Take 1 Tablet by mouth in the morning and 1 Tablet before bedtime with meals 180 Tablet 3 4 10:09 AM EST 05/02/20 24 Active CPAP every night at bedtime. Active Tamsulosin HCl 0.4 MG Oral Capsule (Flomax) Take 1 Capsule by mouth at bedtime. 90 Capsule 1 5 6:43 PM EST 06/12/19 25 Active Pantoprazole [...] 90 Tablet 3 5 3:45 PM EST 06/26/19 25 Active Folic Acid 1 MG Oral TabletIndications :Iron deficiency anemia due to chronic blood loss Take 1 Tablet by mouth in the morning. 90 Tablet 3 5 3:45 PM EST 06/26/19 25 Active Furosemide 20 MG Oral Tablet (Lasix) Take 1 Tablet by mouth daily as needed (leg swelling and weight gain). 30 Tablet 3 06/29/19 25 Active Amoxicillin 500 MG Oral Capsule (Amoxil) Take 4 capsules 1 hour prior to any dental work/cleanin g. 4 Capsule 3 06/29/19 25 Active Amiodarone HCl 200 MG Oral Tablet [...] as needed for Pain, Moderate. 20 Tablet 07/04/19 25 025 Discontinued documented as of this encounter (statuses as of 07/26/2024) Active Problems Problem Noted Date Diagnosed Date Glaucoma 06/26/2024 Pulmonary emphysema 06/26/2024 S/P TAVR (transcatheter aortic valve replacement ) 06/20/2024 History of arteriovenous malformation (AVM) 05/17 Edema of right lower leg 06/07/2024 Atherosclerosis of [place] co ronary artery without angina pectoris 05/11/2024 [...] (Sylvia/J&J) 08/19/2020,07/22/2020 Pneumococcal Conjugate Vacci ne, 20-valent ([id number]) 05/20/2023 Pneumococcal Polysaccharide PPV23 (Pneumovax) 03/11/2009,10/11/2008(Deferred: Patient [...] 04/10/2024 Does the household have a re lar source of income? (Household - for ages [...] Upcoming Encounters Date Type Department Care Team (Latest Contact Info) Description 07/26/2024 9:30 AM EDT Office Visit Cardiology, [facility] [address] [place] [address] Kareen Boyd CRNP [address] [place] [address] HTN, goal below 140/90*; S/P TAVR (transcatheter aortic valve replacement) 07/27/2024 8:30 AM EDT Hem/Onc Treatment Hematology/Oncology Treatment[address], [place] [phone] Susie, Chair 11 Hem Onc [address] [place] [address] 07/31/2024 10:00 AM EDT Laboratory Laboratory, [facility]leigh Kamara [address] [phone] [facility] [address] [address] 08/01/2024 8:00 AM EDT Hem/Onc Treatment Hematology/Oncology Treatment, [address], [place] [phone] Susie, Chair 5 Hem Onc [facility] [address] [place] [address] [place] [address] 08/09/2024 12:30 PM EDT Hem/Onc Treatment Hematology/Oncology Treatment, [place] [address] [place], [place] [address] Susie, Chair 1 Hem Onc [facility] [address] [facility] [place] [address] 08/09/2024 2:30 PM EDT Office Visit Hematology/Oncology [facility] [place] [address] [facility] [place] [phone] Bruna Funk CRNP [address] [place] [address] 10/09/2024 10:00 AM EDT Cardiac Studies Cardiology, [facility] [address] [facility] [place] [address] [facility] [address] [facility] [place] [address] 10/17/2024 8:00 AM EDT Office Visit Family Practice, Ashleigh Gallegos [address] [phone] SeptemberDeclan MD [address] [address] 07/29/2025 10:00 AM EDT Nurse Only Ancillary Department, Ashleigh Kamara [address] [phone] Ashleigh, Nurse Annual Wellness [address] [address] Health Maintenance Due Date Last Done Comments [...] this encounter Medical Devices Implanted Type Area Activities Counselor Device Identifier Shelf Expiration Date Model / Serial / Lot Iol Mx60 14.0 Implanted:Qty: 1 on 10/19/2019 by Ankit Ny MD at OR [facility] Right: Eye 04/14/2020 MX60 / [id number] / [id number] Implanted:Qty: 1 on 10/30/2019 by Ankit Ny MD at OR [facility] Left: Eye 02/12/2021 MX60 / [id number] / [id number] Clip Ultra 360 235cm - [id number] Implanted:Qty: 1 on 05/02/2024 by Omid Bonner MD at OR [facility] Colon [employer] ENDOSCOPY [id number] 12/26/2026 [id number] / / [id number] Clip Ultra 360 235cm - [id number] Implanted:Qty: 1 on 05/02/2024 by Omid Bonner MD at OR [facility] Colon [employer] ENDOS[employer] [id number] 12/26/2026 [id number] / / [id number] Clip Ultra 360 235cm - [id number] Implanted:Qty: 1 on 05/02/2024 by Omid Bonner MD at OR [facility] Colon [employer] ENDOS[employer] [id number] 12/26/2026 [id number] / / [id number] Catheter Hemostatic 235cm 2.8mm 11mm Clip [address] Latexfree - [id number] Implanted:Qty: 1 on 06/08/2024 by Belén Hernadez MD at OR [facility] [employer] [id number] 01/01/2027 [id number] / / [id number] Clip Ultra 360 235cm - [id number] Implanted:Qty: 1 on 06/08/2024 by Belén Hernadez MD at OR [facility] [employer] [id number] 03/06/2027 [id number] / / [id number] Catheter Hemostatic 235cm 2.8mm [address] Latexfree - [id number] Implanted:Qty: 1 on 06/08/2024 by Belén Hernadez MD at OR [facility] [employer] [id number] 01/30/2027 [id number] / / [id number] Clip Ultra 360 235cm - [id number] Implanted:Qty: 1 on 06/08/2024 by Belén Hernadez MD at OR [facility] [employer] [id number] 12/27/2026 [id number] / / [id number] Catheter Hemostatic 235cm 2.8mm [address] Latexfree - [id number] Implanted:Qty: 1 on 06/08/2024 by Belén Hernadez MD at OR [facility] [employer] END[employer] [id number] 01/30/2027 [id number] / / [id number] Clip Ultra 360 235cm - [id number] Implanted:Qty: 1 on 06/08/2024 by Belén Hernadez MD at OR [facility] [employer] ENDOSCOPY [id number] 12/27/2026 [id number] / / [id number] Clip Ultra 360 235cm - [id number] Implanted:Qty: 1 on 06/08/2024 by Belén Hernadez MD at OR [facility] [employer] ENDOS[employer] [id number] 12/26/2026 [id number] / / [id number] Clip Ultra 360 235cm - [id number] Implanted:Qty: 1 on 06/08/2024 by Belén Hernadez MD at OR [facility] [employer] [id number] 12/27/2026 [id number] / / [id number] Clip Hemostatic 18mm Assurance - [id number] Implanted:Qty: 1 on 06/08/2024 by Belén Hernadez MD at OR [facility] [employer] [id number] 01/02/2027 [id number] / / [id number] Catheter Hemostatic 235cm 2.8mm [address] Latexfree - [id number] Implanted:Qty: 1 on 06/08/2024 by Belén Hernadez MD at OR [facility] [employer] ENDOS[employer] [id number] 01/30/2027 [id number] / / [id number] Catheter Hemostatic 235cm 2.8mm [address] Latexfree - [id number] Implanted:Qty: 1 on 06/08/2024 by Belén Hernadez MD at OR [facility] [employer] [id number] 01/30/2027 [id number] / / [id number] Clip Hemostatic 11mm Assurance - [id number] Implanted:Qty: 1 on 06/08/2024 by Belén Hernadez MD at OR [facility] [employer] 11/14/2026 [id number] Catheter Hemostatic 235cm 2.8mm [address] Latexfree - [id number] Implanted:Qty: 1 on 06/08/2024 by Belén Hernadez MD at OR [facility] [employer]OS[employer] [id number] 01/01/2027 [id number] / / [id number] Catheter Hemostatic 235cm 2.8mm [address] Latexfree - [id number] Implanted:Qty: 1 on 06/08/2024 by Belén Hernadez MD at OR [facility] [employer] [id number] 01/30/2027 [id number] / / [id number] Valve Transcath Resilia 26mm - [id number] - [id number] Implanted:Qty: 1 on 06/19/2024 by Khang Mir MD at [facility] [employer] [id number] 09/27/2026 [id number] / [id number] / [id number] documented as of this encounter Procedures Procedure Name Priority Date/Time Associated Diagnosis Comments DIABETIC EYE EXAM Routine 07/25/2024 documented in this encounter Results * DIABETIC EYE EXAM (07/25/2024) 07/25/2024 us History Per Patient OTHER Final Result OUTSIDE LAB (SEE SCANNED REPORT) documented in this encounter Advance Directives * [...] the patient have Health Care Power of Agency Legal Counsel? Yes, not currently available * No Code [...] Care Agent (per Health Care Power of Agency Legal Counsel document) Care Teams Exhauster Engineer Relationship Specialty Start Date End Date September, Declan Person MD [address] [address] PCP - General Family Medicine 05/20/23 documented as of this encounter
--- OUTSIDE RECORDS SUMMARY | 2024-07-31 09:02 | External Medical Summary ---
Author Name Unknown Address Unknown Organization [id number] [address] [place] [address] Laboratory Report Ordering Provider Test Date Status COLUMBA ALBARRAN 07/26/2024 09:45:42 Final Observation Date Value Abnormality Reference (Units ) Status BUN 07/26/2024 09:45:42 19 6-20 (mg/dL) Final Creatinine 07/26/2024 09:45:42 0.8 0.6-1.2 (mg/dL) Final Glomerular filtration rate/1.73 sq M.predicted [Volume Rate/Area] in Serum, Plasma or Blood by Creatinine-based formula (CKD-EPI) 07/26/2024 09:45:42 >90 >=60 (mL/min) Final eGFR is calculated based on the CKD-EPI 2020 equation. Sodium 07/26/2024 09:45:42 139 135-146 (m mol/L) Final Potassium 07/26/2024 09:45:42 4.5 3.5-5.1 (m mol/L) Final Cl 07/26/2024 09:45:42 102 98-107 (mm ol/L) Final CO2 07/26/2024 09:45:42 23 22-32 (mmo l/L) Final Anion gap 07/26/2024 09:45:42 14 7-15 (mmol /L) Final Glucose 07/26/2024 09:45:42 115 70-120 (mg /dL) Final Calcium 07/26/2024 09:45:42 9.9 8.4-10.2 ( mg/dL) Final Performing Location [facility] [address] [place] [address]
--- OUTSIDE RECORDS SUMMARY | 2024-07-31 09:03 | External Medical Summary | Summary of Care ---
Author Name Unknown Organization [facility] Address [address] [address] Phone [phone] Care Team Providers Care Stringing Machine Tender Name Role Phone Declan Dejesus MD Primary Care Provider [phone] Reason for Visit * Reason Comments Medication Administration venofer Encounter Details Date Type Department Care Team (Latest Contact Info) Description 07/18/2024 8:30 AM EST Hem/Onc Treatment Hematology/Oncology Treatment, [place] [address] [place] [address] Susie, Chair 11 Hem Onc [facility] [address] [place], [place] [id number] Iron deficiency anemia due to chronic blood loss* Allergies Active Allergy Reactions Criticality Noted Date Comments Empagliflozin 10/06/2020 Fungal infection, urinary frequency Lisinopril Cough Polyethylene Glycol Other (Please comment) Low 04/26/2024 Severe gas Nickel Rash 09/13/2011 Tetanus Toxoids Rash 09/13/2011 documented as of this encounter (statuses as of 07/18/2024) Medications MULTI VITAMIN MENS PO TABS one [...] as of this encounter (statuses as of 07/18/2024) Active Problems Problem Noted Date Diagnosed Date Glaucoma 06/26/2024 Pulmonary emphysema 06/26/2024 S/P TAVR (transcatheter aortic valve replacement ) 06/20/2024 History of arteriovenous malformation (AVM) 05/17 Edema of right lower leg 06/07/2024 Atherosclerosis of [place] co ronary artery without angina pectoris 05/11/2024 [...] as of this encounter (statuses as of 07/18/2024) Resolved Problems Problem Noted Date Diagnosed Date Resolved Date Primary open-angle glaucoma, right eye, moderate stage 10/16/2020 08/15/2023 Overview (08/15/2023): Noted on pl as OU moderate Glaucoma 08/27/2013 06/07/2022 Overview (06/07/2022): More specific dx on pl HTN, goal below 140/80 07/03/201210/29 Overview: Per HTN Protocol documented as of this encounter (statuses as of 07/18/2024) Immunizations Name Administration Dates Next Due COVID-19 mRNA, LNP-s, No Pre serve, 2-Dose Series (Moderna) 08/19/2020,07/22/2020 COVID-19, MRNA-LNP, PF, 50 M CG/0.5 mL, 12 YRS AND ABOVE, IM (MODERNA-Spikevax) 04/04/2023 COVID-19, mRNA, LNP-s, PF, B ooster, 100mcg/0.5mg (Moderna) 04/16/2021 Covid-19 Ad26, Single Dose (Sylvia/J&J) 08/19/2020,07/22/2020 Pneumococcal Conjugate Vacci ne, 20-valent (Idfjehd48) 05/20/2023 Pneumococcal Polysaccharide PPV23 (Pneumovax) 03/11/2009,10/11/2008(Deferred: Patient [...] Sign Reading Time Taken Comments Blood Pressure 129/73 07/18/2024 8:40 AM EST Pulse 60 07/18/2024 8:40 AM EST Temperature 36.2 °C (97.1 °F) 07/18/2024 8:40 AM ES T Respiratory Rate 18 07/18/2024 8:40 AM EST Oxygen Saturation 96% 07/18/2024 8:40 AM EST Inhaled Oxygen Concentration - - Weight - [...] documented in this encounter Nursing Notes * Carmencita Cortes RN - 07/18/2024 10:32 AM EST Infusion complete. Patient tolerated well. No complaints. IV site removed and dry dressing applied. Goals: Patient will remain free from injury. Possible barriers to meeting goals: ambulating with IV pole Stability of the patient: Moderately stable - low risk of patient condition declining or worsening Summary regarding today's goals: Met: Patient remained free from harm/injury during treatment. Patient left facility in stable condition. * Carmencita Cortes RN - 07/18/2024 10:06 AM EST Chair 9, patient here for venofer infusion. Patient has tolerated infusions in the past. IV started, patient tolerated well. Safety and Risk for Injury Patient will [...] Care Team (Late st Contact Info) Description 07/19/2024 2:30 PM EST Cardiac Studies Cardiac Studies, [facility] [address] [place] [address] 07/24/2024 10:00 AM EDT Nurse Only Ancillary Department, Ashleigh Kamara [address] [phone] Ashleigh Nurse Annual [facility] [address] [address] 07/25/2024 1:30 PM EDT Hem/Onc Treatment Hematology/Oncology Treatment, [place] [address] [facility] [place] [phone] Susie, Chair 10 Hem Onc [facility] [address] [place] [address] 07/26/2024 9:00 AM EDT Laboratory Laboratory, [facility] [address] [phone] [facility] [address] [facility] [place] [address] 07/26/2024 9:30 AM EDT Office Visit Cardiology, [facility] [address] [address] Kareen Boyd CRNP [address] [place] [address] 07/31/2024 10:00 AM EDT Laboratory Laboratory, [facility] Kamara [address] [phone] [place] Sotelo [address] [address] 08/01/2024 8:00 AM EDT Hem/Onc Treatment Hematology/Oncology Treatment, [place] [address] [place] [phone] Susie, Chair 5 Hem Onc [facility] [address] [facility] [place] [address] 08/09/2024 12:30 PM EDT Hem/Onc Treatment Hematology/Oncology Treatment, [place] [address] [facility], [place] [phone] Susie, Chair 1 Hem Onc [address] [place] [address] 08/09/2024 2:30 PM EDT Office Visit Hematology/Oncology [facility] [address] [facility] [place] [address] Bruna Funk CRNP [address] [place] [address] [place] [address] 10/09/2024 10:00 AM EDT Cardiac Studies [facility], [facility] [address] [facility] [address] [place] [address] 10/17/2024 8:00 AM EDT [facility] Visit [facility] [address] [phone] SeptemberDeclan MD [address] [address] Health Maintenance Due Date Last Done Comments Alpha-1 Antitrypsin 1971 Sigmoidoscopy 1998 Lung Cancer Screening 2003 Fecal Occult Blood Test 01/14/2024 01/14/20 23, 01/13/2023, 01/15/2022, Additional history exists COVID-19 Vaccine ( season) 2024 04/04/2023, 04/16/2021, 08/19/2020, Additional history exists Adult Wellness Visit 07/19/2024 [...] 07/16/2024, 0 09/2024, 06/19/2024, Additional history exists Cologuard 2026 2023, 05/16, 05/25/2023 Colonoscopy 05/02/2029 05/02/2024, 04/15, 06/29/2023, Additional history exists Colorectal Cancer Screening 05/02/2029 AAA Screening Completed 10/18/2018, 060 09/2018, 11/11/2014, [...] this encounter Medical Devices Implanted Type Area Supervisory Aide Device Identifier Shelf Expiration Date Model / Serial / Lot Iol Mx60 14.0 Implanted:Qty: 1 on 10/19/2019 by Ankit Ny MD at OR [facility] Right: Eye 04/14/2020 MX60 / [id number] / [id number] Implanted:Qty: 1 on 10/30/2019 by Ankit Ny MD at OR [facility] Left: Eye 02/12/2021 MX60 / [id number] / [id number] Clip Ultra 360 235cm - [id number] Implanted:Qty: 1 on 05/02/2024 by Omid Bonner MD at OR [facility] Colon [employer] : ENDOSCOPY [id number] 12/26/2026 [id number] / / [id number] Clip Ultra 360 235cm - [id number] Implanted:Qty: 1 on 05/02/2024 by Omid Bonner MD at OR [facility] Colon [employer] : ENDOSCOPY [id number] 12/26/2026 [id number] / / [id number] Clip Ultra 360 235cm - [id number] Implanted:Qty: 1 on 05/02/2024 by Omid Bonner MD at OR [facility] Colon [employer] : ENDOSCOPY [id number] 12/26/2026 [id number] / / [id number] Catheter Hemostatic 235cm 2.8mm [address]mm Cl[address] Latexfree - [id number] Implanted:Qty: 1 on 06/08/2024 by Belén Hernadez MD at OR [facility] [employer] ENDOSCOPY [id number] 01/01/2027 [id number] / / [id number] Clip Ultra 360 235cm - [id number] Implanted:Qty: 1 on 06/08/2024 by Belén Hernadez MD at OR [facility] [employer] ENDOSCOPY [id number] 03/06/2027 [id number] / / [id number] Catheter Hemostatic 235cm 2.8mm [address] Latexfree - [id number] Implanted:Qty: 1 on 06/08/2024 by Belén Hernadez MD at OR [facility] [employer] : ENDOSCOPY [id number] 01/30/2027 [id number] / / [id number] Clip Ultra 360 235cm - [id number] Implanted:Qty: 1 on 06/08/2024 by Belén Hernadez MD at OR [facility] [employer] ENDOSCOPY [id number] 12/27/2026 [id number] / / [id number] Catheter Hemostatic 235cm 2.8mm [address] Latexfree - [id number] Implanted:Qty: 1 on 06/08/2024 by Belén Hernadez MD at OR [facility] [employer] ENDOSCOPY [id number] 01/30/2027 [id number] / / [id number] Clip Ultra 360 235cm - [id number] Implanted:Qty: 1 on 06/08/2024 by Belén Hernadez MD at OR [facility] [employer] ENDOSCOPY [id number] 12/27/2026 [id number] / / [id number] Clip Ultra 360 235cm - [id number] Implanted:Qty: 1 on 06/08/2024 by Belén Hernadez MD at OR [facility] [employer] ENDOSCOPY [id number] 12/26/2026 [id number] / / [id number] Clip Ultra 360 235cm - [id number] Implanted:Qty: 1 on 06/08/2024 by Belén Hernadez MD at OR [facility] [employer] ENDOSCOPY [id number] 12/27/2026 [id number] / / [id number] Clip Hemostatic 18mm Assurance - [id number] Implanted:Qty: 1 on 06/08/2024 by Belén Hernadez MD at OR [facility] [employer] [id number] 01/02/2027 [id number] Catheter Hemostatic 235cm 2.8mm [address] Latexfree - [id number] Implanted:Qty: 1 on 06/08/2024 by Belén Hernadez MD at OR [facility] [employer] ENDOSCOPY [id number] 01/30/2027 [id number] / / [id number] Catheter Hemostatic 235cm 2.8mm [address] Latexfree - [id number] Implanted:Qty: 1 on 06/08/2024 by Belén Hernadez MD at OR [facility] [employer] ENDOSCOPY [id number] 01/30/2027 [id number] / / [id number] Clip Hemostatic 11mm Assurance - [id number] Implanted:Qty: 1 on 06/08/2024 by Belén Hernadez MD at OR [facility] [employer] 11/14/2026 [id number] / / [id number] Catheter Hemostatic 235cm 2.8mm [address] Latexfree - [id number] Implanted:Qty: 1 on 06/08/2024 by Belén Hernadez MD at OR [facility] [employer] ENDOSCOPY [id number] 01/01/2027 [id number] / / [id number] Catheter Hemostatic 235cm 2.8mm [address] Latexfree - [id number] Implanted:Qty: 1 on 06/08/2024 by Belén Hernadez MD at OR [facility] [employer] ENDOSCOPY [id number] 01/30/2027 [id number] / / [id number] Valve Transcath Resilia 26mm - [id number] - [id number] Implanted:Qty: 1 on 06/19/2024 by Khang Mir MD at [facility] [employer] [id number] 09/27/2026 [id number] / [id number] / [id number] documented as of this encounter Visit Diagnoses [...] ONCE PRN Other, Hypersensitivity Reaction, Starting on Tue07/18/24 at 0840, Until Candace 07/19/24 at 0839, For 24 hoursIndications:Iron deficiency anemia due to chronic blood loss EPINEPHrine 1 MG/ML inj 0.3 mg 0.3 mg, Intramuscular, ONCE PRN Other, Hypersensitivity Reaction or Anaphylaxis, Starting on Tue07/18/24 at 0840, Until Candace 07/19/24 at 0839, For 24 hoursIndications:Iron deficiency anemia due to chronic blood loss hEParin 100 UNIT/ML Lock Flush inj 500 Units 500 Units (5 mL), IV Lock, PRN Other, IV Flush, Starting on Tue07/18/24 at 0840, Until Candace 07/19/24 at 0839, For 24 hours, Do not flush if lock, PICC, or central line not in place; IV infusing or unable to flush.Indications:Iron deficiency anemia due to chronic blood loss Hydrocortisone Sod Suc (PF) (Solu-Cortef) inj 100 mg 100 mg, IV Push, ONCE PRN Other, Hypersensitivity Reaction, Starting on Tue07/18/24 at 0840, Until Candace 07/19/24 at 0839, For 24 hoursIndications:Iron deficiency anemia due to chronic blood loss NSS infusion 500 mL, Intravenous, at 50 mL/hr, CONTINUOUS, Starting on Tue07/18/24 at 0945, Until Tue07/18/24 at 1944Indications:Iron deficiency anemia due to chronic blood loss Start Infusion 07/18/2024 8:43 AM EST 500 mL 50 mL/hr oxygen GAS Inhalation, OXYGEN, First dose on Tue07/18/24 at 0915, Until Discontinued, Device/Managed by: Low [...] Push, PRN Other, IV Flush, Starting on Tue07/18/24 at 0840, Until Candace 07/19/24 at 0839, For 24 hours, Do not flush if [...] mg, IV Piggyback, ONCE, 1 dose, On Tue07/18/24 at 1015, Administer over 90 MinutesIndications:Iron deficiency anemia due to chronic blood loss Start Infusion 07/18/2024 8:45 AM EST 300 mg 180 mL/hr documented in this [...] the patient have Health Care Power of Hypoid Gear Tester? Yes, not currently available * No Code Date Activated Date Inactivated Comments 05/01/2024 11:50 AM 05/02/2024 9:14 AM This orde r reflects the patients wishes and were consensually agreed upon. Question Answer Comments Discussion of Advance Directives occurred with: Patient Healthcare Agents on File Name Relationship Healthcare Agent [facility] Communication Mattie Branch Adult Child First Alternat e Health Care Agent (per Health Care Power of Hypoid Gear Tester document) Care Teams Stringing Machine Tender Relationship Specialty Start Date End Date September, Declan Person MD [address] [address] PCP - General Family Medicine 05/20/23 documented as of this encounter
--- OUTSIDE RECORDS SUMMARY | 2024-07-31 09:03 | External Medical Summary | Summary of Care ---
Author Name Unknown Organization [facility] Address [address] [facility] [place] [address] Phone [phone] Care Team Providers Care Executive Assistant Name Role Phone Declan Dejesus MD Primary Care Provider [phone] Reason for Visit * Reason Onset Date Comments Test Results Lab 07/17/2024 Encounter Details Date Type Department Care Team (Late st Contact Info) Description 07/17/2024 Telephone Hematology/Oncology [facility] [address] [facility] [place] [address] Bruna Funk CRNP 400 [facility] [place] [address] Test Results Lab Allergies Active Allergy Reactions Criticality Noted Date Comments Empagliflozin 10/06/2020 Fungal infection, urinary frequency Lisinopril Cough Polyethylene Glycol Other (Please comment) Low 04/26/2024 Severe gas Nickel Rash 09/13/2011 Tetanus Toxoids Rash 09/13/2011 documented as of this encounter (statuses as of 07/17/2024) Medications MULTI VITAMIN MENS PO TABS one [...] hemoglobin A1c goal of less than 7.0% ([facility]) Take 1 Tablet by mouth in the [...] as of this encounter (statuses as of 07/17/2024) Active Problems Problem Noted Date Diagnosed Date Glaucoma 06/26/2024 Pulmonary emphysema 06/26/2024 S/P TAVR (transcatheter aortic valve replacement ) 06/20/2024 History of arteriovenous malformation (AVM) 05/17 Edema of right lower leg 06/07/2024 Atherosclerosis of [place] ronary artery without angina pectoris 05/11/2024 [...] as of this encounter (statuses as of 07/17/2024) Resolved Problems Problem Noted Date Diagnosed Date Resolved Date Primary open-angle glaucoma, right eye, moderate stage 10/16/2020 08/15/2023 Overview (08/15/2023): Noted on pl as OU moderate Glaucoma 08/27/2013 06/07/2022 Overview (06/07/2022): More specific dx on pl HTN, goal below 140/80 07/03/201210/29 Overview: Per HTN Protocol documented as of this encounter (statuses as of 07/17/2024) Immunizations Name Administration Dates Next Due COVID-19 mRNA, LNP-s, No Pre serve, 2-Dose Series (Moderna) 08/19/2020,07/22/2020 COVID-19, MRNA-LNP, PF, 50 M CG/0.5 mL, 12 YRS AND ABOVE, IM (MODERNA-Spikevax) 04/04/2023 COVID-19, mRNA, LNP-s, PF, B ooster, 100mcg/0.5mg (Moderna) 04/16/2021 Covid-19 Ad26, Single Dose (Sylvia/J&J) 08/19/2020,07/22/2020 Pneumococcal Conjugate Vacci ne, 20-valent (Mclzgin09) 05/20/2023 Pneumococcal Polysaccharide PPV23 (Pneumovax) 03/11/2009,10/11/2008(Deferred: Patient [...] 06/07/2024 11:53 PM EST Yeny Bowman RN documented as of this encounter Mental Status * Because of a physical, mental, or emotional condition, do you have serious difficulty concentrating, remembering, or making decisions? (5 years old or older) Answer Entry Date Author No 06/07/2024 11:53 PM EST Yeny Bowman RN documented in this encounter Miscellaneous Notes * Telephone Encounter - Maida Saxena LPN - 07/17/2024 1:12 PM EST Spoke with patient, informed patient of result note below. Patient verbalized understanding. Patient states he is agreeable to having the infusions. Patient is requesting morning infusion appointments when possible. Patient scheduled for his last infusion on 08/09/2024 prior to his appointment with Bruna at 2:30 pm to minimize travel. He denies any questions or needs at this time. * Telephone Encounter - Maida Saxena LPN - 07/17/2024 12:58 PM EST Order received for Venofer [place] plan built and routed to provider No prior authorization required * Telephone Encounter - Bruna Funk CRNP - 07/17/2024 11:50 AM EST Results for orders placed or performed in visit on 07/17/24 FERRITIN Result Value Ref Range Ferritin 24 (L) 30 - 400 ng/mL IRON SCREEN, INCLUDING TIBC Result Value Ref Range Iron 22 (L) 45 - 176 ug/dL Iron Binding Capacity 375 250 - 425 ug/dL Transferrin Saturation Percent 6 (L) 15 - 55 % Component Latest Ref Rng 07/16/2024 WBC 4.00 - 10.80 K/uL 10.17 RBC 4.50 - 5.25 M/uL 3.58 HGB 14.0 - 16.8 g/dL 8.6 (L) HCT 40.0 - 48.4 % 29.8 (L) MCV 82.0 - 99.5 fL 83.2 MCH 27.0 - 34.0 pg 24.0 MCHC 32.0 - 36.0 g/dL 28.9 RDW 11.5 - 15.5 % 17.5 PLT 140 - 400 K/uL 201 MPV 6.6 - 11.1 fL 12.4 nRBCs <=0 /100 WBCs 0 Ongoing GEOFF present. Order placed for IV Venofer 300 mg weekly x 4 infusions. Please make patient aware and assist with scheduling. Please keep office visit scheduled 08/09/24. documented in this encounter Plan of Treatment Upcoming Encounters Date Type Department Care Team (Late st Contact Info) Description 07/18/2024 8:30 AM EST Hem/Onc Treatment Hematology/[address] [phone] Susie, Chair 11 Hem On[address] [place] [address] 07/19/2024 2:30 PM EST Cardiac Studies Cardiac Studies, [facility] [address] 07/24/2024 10:00 AM EDT Nurse Only Ancillary Department, Ashleigh Kamara 226 [facility] [place] [phone] Ashleigh, Nurse Annual Wellness [address] [facility] [place] [address] 07/25/2024 1:30 PM EDT Hem/Onc Treatment Hematology/Oncology [address], [address] [phone] Susie, Chair 10 Hem On[address] [place] [address] 07/26/2024 9:00 AM EDT Laboratory Laboratory, [facility] [address] [facility] [place] [phone] Kg Stafford [facility] [address] [facility] [place], [place] [address] 07/26/2024 9:30 AM EDT Office Visit Cardiology, [facility] [address] [facility] [place], [place] [address] Kareen Boyd CRNP [address] [place] [address] 07/31/2024 10:00 AM EDT [facility] [phone] [facility] [address] [place] [address] 08/01/2024 8:00 AM EDT [facility] 200 [facility], [place] [phone] Susie, Chair 5 Hem Onc Scenery [address] [place] [address] [place] [address] 08/09/2024 12:30 PM EDT Hem/Onc Treatment Hematology/Oncology [address] [phone] Susie, Chair 1 Hem Onc [facility] [address] [place] [address] [place] [address] 08/09/2024 2:30 PM EDT Office Visit Hematology/Oncology [facility] [place] [facility] [phone] Bruna Funk CRNP [address] [place] [address] 10/09/2024 10:00 AM EDT Cardiac Studies Cardiology, [facility] [address] [place] [address] [facility] [address] [place] [address] 10/17/2024 8:00 AM EDT Office Visit Family Practice, Ashleigh [address] [place] [phone] Declan Dejesus MD [address] [place] [address] Health Maintenance Due Date Last Done Comments [...] Depression Screening 04/10/2025 04/10/2024 B-12 06/08/2025 06/08/2024, 12/0 06/2023, 07/20/2023 O2 ASSESSMENT COMPLETED IN PAST YEAR FOR COPD 06/19/2025 06/19/2024 GFR 07/16/2025 07/16/2024, 09/2024, 06/19/2024, Additional history exists Cologuard 2026 [...] this encounter Medical Devices Implanted Type Area Brick Kiln Worker Device Identifier Shelf Expiration Date Model / Serial / Lot Iol Mx60 14.0 Implanted:Qty: 1 on 10/19/2019 by Ankit Ny MD at OR [facility] Right: Eye 04/14/2020 MX60 / [id number] / [id number] Implanted:Qty: 1 on 10/30/2019 by Ankit Ny MD at OR [facility] Left: Eye 02/12/2021 MX60 / [id number] / [id number] Clip Ultra 360 235cm - [id number] Implanted:Qty: 1 on 05/02/2024 by Omid Bonner MD at OR [facility] Colon [employer] ENDOSCOPY [id number] 12/26/2026 [id number] / / [id number] Clip Ultra 360 235cm - [id number] Implanted:Qty: 1 on 05/02/2024 by Omid Bonner MD at OR [facility] Colon [employer] ENDOSCOPY [id number] 12/26/2026 [id number] / / [id number] Clip Ultra 360 235cm - [id number] Implanted:Qty: 1 on 05/02/2024 by Omid Bonner MD at OR [facility] Colon [employer] ENDOSCOPY [id number] 12/26/2026 [id number] / / [id number] Catheter Hemostatic 235cm 2.8mm [address]mm [address] Latexfree - [id number] Implanted:Qty: 1 on 06/08/2024 by Belén Hernadez MD at OR [facility] [employer] ENDOSCOPY [id number] 01/01/2027 [id number] / / [id number] Clip Ultra 360 235cm - [id number] Implanted:Qty: 1 on 06/08/2024 by Belén Hernadez MD at OR [facility] [employer] ENDOSCOPY [id number] 03/06/2027 [id number] / / [id number] Catheter Hemostatic 235cm 2.8mm [address]mm [address] Latexfree - [id number] Implanted:Qty: 1 on 06/08/2024 by Belén Hernadez MD at OR [facility] [employer] ENDOSCOPY [id number] 01/30/2027 [id number] / / [id number] Clip Ultra 360 235cm - [id number] Implanted:Qty: 1 on 06/08/2024 by Belén Hernadez MD at OR [facility] [employer] ENDOSCOPY [id number] 12/27/2026 [id number] / / [id number] Catheter Hemostatic 235cm 2.8mm [address]mm [address] Latexfree - [id number] Implanted:Qty: 1 on 06/08/2024 by Belén Hernadez MD at OR [facility] [employer] ENDOSCOPY [id number] 01/30/2027 [id number] / / [id number] Clip Ultra 360 235cm - [id number] Implanted:Qty: 1 on 06/08/2024 by Belén Hernadez MD at OR [facility] [employer] ENDOSCOPY [id number] 12/27/2026 [id number] / / [id number] Clip Ultra 360 235cm - [id number] Implanted:Qty: 1 on 06/08/2024 by Belén Hernadez MD at OR [facility] [employer] ENDOSCOPY [id number] 12/26/2026 [id number] / / [id number] Clip Ultra 360 235cm - [id number] Implanted:Qty: 1 on 06/08/2024 by Belén Hernadez MD at OR [facility] [employer] ENDOSCOPY [id number] 12/27/2026 [id number] / / [id number] Clip Hemostatic 18mm Assurance - [id number] Implanted:Qty: 1 on 06/08/2024 by Belén Hernadez MD at OR [facility] [employer] [id number] 01/02/2027 [id number] / / [id number] Catheter Hemostatic 235cm 2.8mm 11mm [address] Latexfree - [id number] Implanted:Qty: 1 on 06/08/2024 by Belén Hernadez MD at OR [facility] [employer] ENDOSCOPY [id number] 01/30/2027 [id number] / / [id number] Catheter Hemostatic 235cm 2.8mm [address]mm [address] Latexfree - [id number] Implanted:Qty: 1 on 06/08/2024 by Belén Hernadez MD at OR [facility] [employer] ENDOSCOPY [id number] 01/30/2027 [id number] / / [id number] Clip Hemostatic 11mm Assurance - [id number] Implanted:Qty: 1 on 06/08/2024 by Belén Hernadez MD at OR [facility] [employer] 11/14/2026 [id number] / / [id number] Catheter Hemostatic 235cm 2.8mm [address]mm [address] Latexfree - [id number] Implanted:Qty: 1 on 06/08/2024 by Belén Hernadez MD at OR [facility] [employer] ENDOSCOPY [id number] 01/01/2027 [id number] / / [id number] Catheter Hemostatic 235cm 2.8mm [address]mm [address] Latexfree - [id number] Implanted:Qty: 1 on 06/08/2024 by Belén Hernadez MD at OR [facility] [employer] ENDOSCOPY [id number] 01/30/2027 [id number] / / [id number] Valve Transcath Resilia 26mm - [id number] - [id number] Implanted:Qty: 1 on 06/19/2024 by Khang Mir MD at [facility] [employer] [id number] 09/27/2026 [id number] / [id number] / [id number] documented as of this encounter Visit Diagnoses Diagnosis Iron deficiency anemia due to chronic blood loss- Primary Iron deficiency anemia secondary to blood loss (chronic) documented in this encounter Advance Directives * [...] the patient have Health Care Power of Analytical Chemist? Yes, not currently available * No Code Date Activated Date Inactivated Comments 05/01/2024 11:50 AM 05/02/2024 9:14 AM This orde r reflects the patients wishes and were consensually agreed upon. Question Answer Comments Discussion of Advance Directives occurred with: Patient Healthcare Agents on File Name Relationship Healthcare Agent [facility] Mattie Branch Adult Child First Alternat e Health Care Agent (per Health Care Power of Analytical Chemist document) Care Teams Executive Assistant Relationship Specialty Start Date End Date September, Declan Person MD [address] [place] [address] PCP - General Family Medicine 05/20/23 documented as of this encounter
--- OUTSIDE RECORDS SUMMARY | 2024-07-31 09:03 | External Medical Summary | Summary of Care ---
Author Name Unknown Organization [facility] Address [address] [facility] [place] [address] Phone [phone] Care Team Providers Care Sports Bookmaker Name Role Phone Declan Dejesus MD Primary Care Provider [phone] Reason for Visit * Reason Onset Date Comments Test Results 07/17/2024 Encounter Details Date Type Department Care Team (Late st Contact Info) Description 07/17/2024 Telephone Cardiology, [place] [address] [place] [phone] Diana Diana PA-C [address] [place] [address] Test Results Allergies Active Allergy Reactions Criticality Noted Date [...] of right lower leg 06/07/2024 Atherosclerosis of [place] ronary artery without angina pectoris 05/11/2024 [...] (Sylvia/J&J) 08/19/2020,07/22/2020 Pneumococcal Conjugate Vacci ne, 20-valent (Weszzdx72) 05/20/2023 Pneumococcal Polysaccharide PPV23 (Pneumovax) 03/11/2009,10/11/2008(Deferred: Patient [...] encounter Miscellaneous Notes * Telephone Encounter - Michelle Gandhi LPN - 07/17/2024 12:41 PM EST Patient advised of result note via [employer] Message. Michelle Gandhi LPN * Telephone Encounter - Michelle Gandhi LPN - 07/17/2024 12:39 PM EST ----- Message from Diana Diana sent at 07/17/2024 12:10 PM EST ----- Stable electrolytes and kidney function. Continue current medications. documented in this encounter Plan of Treatment Upcoming Encounters Date Type Department Care Team (Late st Contact Info) Description 07/18/2024 8:30 AM EST Hem/Onc Treatment Hematology/Oncology Treatment, [place] [address] [place] [address] Susie, Chair 11 Hem Onc Scenery [address] [place] [address] 07/19/2024 2:30 PM EST Cardiac Studies Cardiac Studies, [facility] [address] [place] [address] 07/24/2024 10:00 AM EDT Nurse Only Ancillary Department, [address] [place] [phone] Ashleigh Nurse Annual Wellness [address] [place] [address] 07/25/2024 1:30 PM EDT Hem/Onc Treatment Hematology/Oncology Treatment, [address] [place] [phone] Susie, Chair 10 Hem On[address] [place], [place] [address] 07/26/2024 9:00 AM EDT Laboratory Laboratory, [facility] [address] [facility] [place] [phone] Kg Stafford [facility] [address] [facility] [place] [address] 07/26/2024 9:30 AM EDT Office Visit Cardiology, [facility] [address] [facility] [place] [address] Kareen Boyd CRNP [address] [facility] [place] [address] 07/31/2024 10:00 AM EDT Laboratory Laboratory, [place]leigh Kamara [address] [facility] [place] [phone] Ashleigh Laboratory [address] [place] [address] 08/01/2024 8:00 AM EDT Hem/Onc Treatment Hematology/Oncology Treatment, [address] [place] [phone] Susie, Chair 5 Hem On[address] [place], [place] [address] 08/09/2024 12:30 PM EDT Hem/Onc Treatment Hematology/Oncology Treatment, [address] [place] [phone] Susie, Chair 1 Hem Onc [facility] 200 [facility] [place] [address] 08/09/2024 2:30 PM EDT Office Visit Hematology/Oncology [facility] [place] 200 [facility] [place] [phone] Bruna Funk, CYNDI 400 [facility] [address] 10/09/2024 10:00 AM EDT Cardiac Studies Cardiology, [facility] 132 [facility] [address] [facility] 132 [facility] [place] [address] 10/17/2024 8:00 AM EDT [facility] 226 [place] [address] SeptemberDeclan MD [address] [place] [address] Health Maintenance Due Date Last Done Comments [...] this encounter Medical Devices Implanted Type Area Supervisor Liquid Yeast Device Identifier Shelf Expiration Date Model / Serial / Lot Iol Mx60 14.0 Implanted:Qty: 1 on 10/19/2019 by Ankit Ny MD at OR [facility] Right: Eye 04/14/2020 MX60 / [id number] / Mx60 Implanted:Qty: 1 on 10/30/2019 by Ankit Ny MD at OR [facility] Left: Eye 02/12/2021 MX60 / [id number] / [id number] Clip Ultra 360 235cm - [id number] Implanted:Qty: 1 on 05/02/2024 by Omid Bonner MD at OR [facility] Colon [employer] ENDOSCOPY [id number] 12/26/2026 [id number] / / [id number] Clip Ultra 360 235cm - [id number] Implanted:Qty: 1 on 05/02/2024 by Omid Bonner MD at OR [facility] Colon [employer] ENDOSCOPY [id number] 12/26/2026 [id number] / / [id number] Clip Ultra 360 235cm - [id number] Implanted:Qty: 1 on 05/02/2024 by Omid Bonner MD at OR [facility] Colon [employer] ENDOSCOPY [id number] 12/26/2026 [id number] / / [id number] Catheter Hemostatic 235cm 2.8mm [address] Latexfree - [id number] Implanted:Qty: 1 on 06/08/2024 by Belén Hernadez MD at OR [facility] [employer] ENDOSCOPY [id number] 01/01/2027 [id number] / / [id number] Clip Ultra 360 235cm - [id number] Implanted:Qty: 1 on 06/08/2024 by Belén Hernadez MD at OR [facility] [employer] ENDOSCOPY [id number] 03/06/2027 [id number] / / [id number] Catheter Hemostatic 235cm 2.8mm [address] Latexfree - [id number] Implanted:Qty: 1 on 06/08/2024 by Belén Hernadez MD at OR [facility] [employer] ENDOSCOPY [id number] 01/30/2027 [id number] / / [id number] Clip Ultra 360 235cm - [id number] Implanted:Qty: 1 on 06/08/2024 by Belén Hernadez MD at OR [facility] [employer] ENDOSCOPY [id number] 12/27/2026 [id number] / / [id number] Catheter Hemostatic 235cm 2.8mm [address] Latexfree - [id number] Implanted:Qty: 1 on 06/08/2024 by Belén Hernadez MD at OR [facility] [employer] ENDOSCOPY [id number] 01/30/2027 [id number] / / [id number] Clip Ultra 360 235cm - [id number] Implanted:Qty: 1 on 06/08/2024 by Belén Hernadez MD at OR [facility] [employer] ENDOSCOPY [id number] 12/27/2026 [id number] / / [id number] Clip Ultra 360 235cm - [id number] Implanted:Qty: 1 on 06/08/2024 by Belén Hernadez MD at OR [facility] [employer] ENDOSCOPY [id number] 12/26/2026 [id number] / / [id number] Clip Ultra 360 235cm - [id number] Implanted:Qty: 1 on 06/08/2024 by Belén Hernadez MD at OR [facility] [employer] ENDOSCOPY [id number] 12/27/2026 [id number] / / [id number] Clip Hemostatic 18mm Assurance - [id number] Implanted:Qty: 1 on 06/08/2024 by Belén Hernadez MD at OR [facility] [employer] [id number] 01/02/2027 [id number] / / [id number] Catheter Hemostatic 235cm 2.8mm [address] Latexfree - [id number] Implanted:Qty: 1 on 06/08/2024 by Belén Hernadez MD at OR [facility] [employer] ENDOSCOPY [id number] 01/30/2027 [id number] / / [id number] Catheter Hemostatic 235cm 2.8mm [address] Latexfree - [id number] Implanted:Qty: 1 on 06/08/2024 by Belén Hernadez MD at OR [facility] [employer] ENDOSCOPY [id number] 01/30/2027 [id number] / / [id number] Clip Hemostatic 11mm Assurance - [id number] Implanted:Qty: 1 on 06/08/2024 by Belén Hernadez MD at OR [facility] [employer] 11/14/2026 [id number] / / [id number] Catheter Hemostatic 235cm 2.8mm [address] Latexfree - [id number] Implanted:Qty: 1 on 06/08/2024 by Belén Hernadez MD at OR [facility] [employer] ENDOS[employer] [id number] 01/01/2027 [id number] / / [id number] Catheter Hemostatic 235cm 2.8mm [address]mm [address] Latexfree - [id number] Implanted:Qty: 1 on 06/08/2024 by Belén Hernadez MD at OR [facility] [employer] ENDOSCOPY [id number] 01/30/2027 [id number] / / [id number] Valve Transcath Resilia 26mm - [id number] - [id number] Implanted:Qty: 1 on 06/19/2024 by Khang Mir MD at [facility] [employer] [id number] 09/27/2026 [id number] / [id number] / [id number] documented as of this encounter Advance Directives [...] the patient have Health Care Power of Winery Worker? Yes, not currently available * No [...] Care Agent (per Health Care Power of Winery Worker document) Care Teams Sports Bookmaker Relationship Specialty Start Date End Date September, Declan Person MD [address] [place] [address] PCP - General Family Medicine 05/20/23 documented as of this encounter
--- OUTSIDE RECORDS SUMMARY | 2024-07-31 09:03 | External Medical Summary | Summary of Care ---
Author Name Unknown Organization [facility] Address [address] [facility] [place] [address] Phone [phone] Care Team Providers Care Beautician Apprentice Name Role Phone Declan Dejesus MD Primary Care Provider [phone] Reason for Visit * Reason Comments Adult Annual Wellness Visit, Subsequent Visit Encounter Details Date Type Department Care Team (Late st Contact Info) Description 07/24/2024 10:00 AM EDT Nurse Only Ancillary Department, Ashleigh [address] [id number] Ashleigh Nurse Annual Wellness [address] [address] Adult Annual Wellness Visit, Subsequent Visit Allergies Active Allergy Reactions Criticality Noted Date Comments Empagliflozin 10/06/2020 Fungal infection, urinary frequency Lisinopril Cough Polyethylene Glycol Other (Please comment) Low 04/26/2024 Severe gas Nickel Rash 09/13/2011 Tetanus Toxoids Rash 09/13/2011 documented as of this encounter (statuses as of 07/24/2024) Medications MULTI VITAMIN MENS PO TABS one by mouth daily Active Dutasteride 0.5 MG Oral Capsule (Avodart)Indicatio ns:BPH with obstruction/lower urinary tract symptoms Take 1 Capsule by mouth in the morning. 90 Capsule 3 05/10/2024 10:16 AM EST 4 Active Glimepiride 2 MG Oral Tablet [...] as of this encounter (statuses as of 07/24/2024) Active Problems Problem Noted Date Diagnosed Date Glaucoma 06/26/2024 Pulmonary emphysema 06/26/2024 S/P TAVR (transcatheter aortic valve replacement ) 06/20/2024 History of arteriovenous malformation (AVM) 05/17 Edema of right lower leg 06/07/2024 Atherosclerosis of [place] co ronary artery without angina pectoris 05/11/2024 [...] as of this encounter (statuses as of 07/24/2024) Resolved Problems Problem Noted Date Diagnosed Date Resolved Date Primary open-angle glaucoma, right eye, moderate stage 10/16/2020 08/15/2023 Overview (08/15/2023): Noted on pl as OU moderate Glaucoma 08/27/2013 06/07/2022 Overview (06/07/2022): More specific dx on pl HTN, goal below 140/80 07/03/201210/29 Overview: Per HTN Protocol documented as of this encounter (statuses as of 07/24/2024) Immunizations Name Administration Dates Next Due COVID-19 mRNA, LNP-s, No Pre serve, 2-Dose Series (Moderna) 08/19/2020,07/22/2020 COVID-19, MRNA-LNP, PF, 50 M CG/0.5 mL, 12 YRS AND ABOVE, IM (MODERNA-Spikevax) 04/04/2023 COVID-19, mRNA, LNP-s, PF, B ooster, 100mcg/0.5mg (Moderna) 04/16/2021 Covid-19 Ad26, Single Dose (Sylvia/J&J) 08/19/2020,07/22/2020 Pneumococcal Conjugate Vacci ne, 20-valent (Uffcgqo19) 05/20/2023 Pneumococcal Polysaccharide PPV23 (Pneumovax) 03/11/2009,10/11/2008(Deferred: Patient [...] Sign Reading Time Taken Comments Blood Pressure 123/50 07/24/2024 10:24 AM EDT Pulse 60 07/24/2024 10:24 AM EDT Temperature 37.1 °C (98.7 °F) 07/24/2024 1 0:24 AM EDT Respiratory Rate - - Oxygen Saturation 95% 07/24/2024 10: 24 AM EDT Inhaled Oxygen Concentration - - Weight 105.8 kg (233 lb 3.2 oz) 025 10:24 AM EDT Height 175.3 cm (5' 9") 07/24/2024 10:2 4 AM EDT Body Mass Index 34.44 07/24/2024 10:24 AM EDT documented in this [...] Yeny Carrillo RN documented in this encounter Patient Instructions * Patient Instructions* Kimberlee Campuzano RN - 07/24/2024 11:03 AM EDT Hi Mr. Cantu, As your primary care physician, I know that regular visits with my patients who have several chronic conditions can go a long way in helping you stay healthy. Many times, the clinic team and I are in touch with you and/or other care team members between office visits to adjust medications, discuss any changes in your health, and review our care plan to make sure it is still meeting your needs. I am dedicated to helping you take a more active role in your overall care. It is important that there are resources available to you, so I created a personalized plan of care with a Health Calendar for you, which is included on the next page of this letter. Below is a list that summarizes your electronic health record: Health Maintenance Due: Health Maintenance Due Topic Date Due • Alpha-1 Antitrypsin Never done • Lung Cancer Screening Never done • COVID-19 Vaccine ( season) 2024 Current Medication List: (as of Visit date not found (in office), Visit date not found (telemedicine) ) Current Outpatient Medications Medication Sig Dispense Refill • MULTI VITAMIN MENS PO TABS one by mouth daily • Dutasteride 0.5 MG Oral Capsule (Avodart) Take 1 Capsule by mouth in the morning. 90 Capsule 3 • Glimepiride 2 MG Oral Tablet (Amaryl) TAKE ONE TABLET BY MOUTH DAILY WITH BREAKFAST 90 Tablet 3 • Latanoprost 0.005 % Ophthalmic Solution (Xalatan) Instill 1 drop into both eyes at bedtime 10 mL 3 • Timolol Maleate 0.25 % Ophthalmic Solution (Timoptic) Instill 2 Drops into both eyes in the morning. 15 mL 3 • Vitamin C 1000 MG Oral Tablet Take 1 Tablet by mouth 2 times a day. • Zinc 50 MG Oral Tablet Take 1 Tablet by mouth in the morning. • Vitamin D3 125 MCG (5000 UT) Oral Tablet Disintegrating Take 1 Tablet by mouth daily. • Rosuvastatin Calcium 40 MG Oral Tablet (Crestor) take one tablet by mouth once a day 90 Tablet 3 • metFORMIN HCl 1000 MG Oral Tablet (Glucophage) Take 1 Tablet by mouth in the morning and 1 Tablet before bedtime with meals 180 Tablet 3 • CPAP every night at bedtime. • Tamsulosin HCl 0.4 MG Oral Capsule (Flomax) Take 1 Capsule by mouth at bedtime. 90 Capsule 1 • Pantoprazole Sodium 40 MG Oral Tablet Delayed Release (Protonix) Take 1 Tablet by mouth in the morning. 30 Tablet 1 Aspirin 81 MG Oral Tablet Chewable Chew & swallow 1 Tablet by mouth every morning. 30 Tablet 11 • Vitamin B-12 1000 MCG Oral Tablet (Cyanocobalamin) Take 1 Tablet by mouth in the morning. 90 Tablet 3 • Folic Acid 1 MG Oral Tablet Take 1 Tablet by mouth in the morning. 90 Tablet 3 • oxyCODONE-Acetaminophen 5-325 MG Oral Tablet (Percocet) Take 1 Tablet by mouth every 4 hours asneeded for Pain, Moderate. 20 Tablet 0 • Amiodarone HCl 200 MG Oral Tablet (Cordarone) Take 1 Tablet by mouth in the morning and 1 Tablet at noon and 1 Tablet before bedtime. Reduce to 200mg daily starting July 21 2024. • Metoprolol Succinate 50 MG Oral Capsule ER 24 Hour Sprinkle Take 50 mg by mouth in the morning. • Acetaminophen 500 MG Oral Capsule Take 2 Capsules by mouth every 4 hours as needed for Pain, Mild or Fever >38C(100.5F). • Furosemide 20 MG Oral Tablet (Lasix) Take 1 Tablet by mouth daily as needed (leg swelling and weight gain). 30 Tablet 3 • Amoxicillin 500 MG Oral Capsule (Amoxil) Take 4 capsules 1 hour prior to any dental work/cleaning. 4 Capsule 3 • Docusate Sodium 100 MG Oral Capsule (Colace) Take 1 Capsule by mouth in the morning and 1 Capsule before bedtime. For 7 days. (Patient not taking: Reported on 07/17/2024) No current facility-administered medications for this visit. Current List of Allergies: (as of Visit date not found (in office), Visit date not found (telemedicine) ) Review of patient's allergies indicates: Allergen Reactions • Empagliflozin Fungal infection, urinary frequency • Lisinopril Cough • Nickel Rash • Tetanus Toxoids Rash • Miralax [Polyethylene Glycol] Other (Please comment) Severe gas Most Recent Lab Results: Results for orders placed or performed in visit on 07/19/24 ECHO, COMPLETE (2D), TRANS-THORACIC Result Value Ref Range LEFT VENTRICULAR EJECTION FRACTION 55 % Sincerely, Declan Dejesus MD 07/24/2024 [facility] Calendar (as of Visit date not found (in office), Visit date not found (telemedicine) ) Care needs Care needs Last completed Due next Alpha-1 Antitrypsin --- Never done Lung cancer screening --- Never done COVID-19 Vaccine ( season) 2023 01/15/2024 A1C blood sugar test 04/05/2024 10/03/2024 Diabetic Eye Exam 12/13/2023 12/12/2024 Urine albumin/creatinine test 03/26/2024 03/26/2025 Yearly B-12 vitamin test 06/08/2024 06/08/2025 Yearly COPD oxygen test 06/19/2024 06/19/2025 Kidney Function Test 07/16/2024 07/16/2025 Diabetic Foot Exam 07/24/2024 07/24/2025 Adult Wellness Visit 07/24/2024 07/24/2025 Colorectal cancer screening (colonoscopy 10 years, sigmoidoscopy 5 years, Cologuard 3 years, stool sample 1 year) 05/02/2024 05/02/2029 As you look over the recommended services, be sure to check with your insurance company to determine what's covered. [employer] is a great tool that helps you review your medical record online, including test results, doctor notes and your health summary. You can also schedule appointments with me and other members of your care team, request prescription refills and ask for advice related to your medical conditions at [employer] documented in this encounter Progress Notes * Kimberlee Campuzano RN - 07/24/2024 10:28 AM EDT AD8 Dementia Screening Interview Person answering questions: patient Remember, "Yes, a change" indicates that there has been a change in the last several years caused by cognitive (thinking and memory) problems 1. Problems with judgement (eg: problems making decisions, bad financial decisions, problems with thinking). No (0) 2. Less interest in hobbies/activities. No (0) 3. Repeats the same things over and over (questions, stories, or statements). No (0) 4. Trouble learning how to use a tool, appliance, or gadget (eg: VCR, computer, microwave, remote control). No (0) 5. Forgets correct month or year. No (0) 6. Trouble handling complicated financial affairs (eg: balancing checkbook, income taxes, paying bills). No (0) 7. Trouble remembering appointments. No (0) 8. Daily problems with thinking and/or memory. No (0) TOTAL AD8: 0 - AD8 Dementia Screening Score The final score is a sum of the number items marked "Yes, A Change". 0 - 1: Normal cognition; 2 or greater: Cognitive impairments is likely to be present - further testing required Adult Annual Wellness Visit: Rafael Cantu is a 69 year old male who presents for an Adult Annual Wellness Visit. Depression Screening: Did the patient complete the screening questionnaire for Depression? Yes Is the patient's total score for Depression 15 or greater? No, no further intervention needed, unless requested by patient. Did the patient answer positively to the suicide question? No, no further intervention needed, unless requested by patient. In general, compared to other people your age, what would you say that your health is? Poor Ht Readings from Last 1 Encounters: 07/24/24 5' 9" (1.753 m) Wt Readings from Last 1 Encounters: 07/24/24 233 lb 3.2 oz (105.8 kg) Body Mass Index: BMI Greater than 30 Body mass index is 34.44 kg/m². BP Readings from Last 1 Encounters: 07/24/24 123/50 Medical/Surgical/Family History Reviewed: Yes Past Medical History: Diagnosis Date Arthritis Diabetes mellitus (HCC) Dyslipidemia, goal LDL below 130 08/27/2013 Dyslipidemia, goal to be determined Glaucoma 08/27/2013 Hypertension Lumbago Major depressive disorder, single episode, moderate (HCC) Obesity Shortness of breath Type 2 diabetes mellitus (HCC) UTI (urinary tract infection) Past Surgical History: Procedure Laterality Date ARTHROPLASTY KNEE TOTAL Right 10/01/2020 [facility] Dr. Sinclair CARDIAC SURGERY PROCEDURE NEC cardiac cath 2016 COLONOSCOPY, DIAGNOSTIC (RECTUM) 07/13/2016 adenomatous polyp, repeat 3 yrs/[facility] COLONOSCOPY, DIAGNOSTIC (RECTUM) N/A 06/29/2023 sigmoid diverticulosis/hemorrhoids/recall 5 years/Colonoscopy/[place] COLONOSCOPY, DIAGNOSTIC (RECTUM) N/A 05/02/2024 poor prep/diverticulosis/hemorrhoids/single non-bleeding colonic angioectasia, clips placed/COLONOSCOPY FLEXIBLE PROXIMAL DIAGNOSTIC performed by Omid Bonner MD at OR [facility] COLORECTAL CANCER SCREEN; NOT AT RISK 12/07/2011 COLONOSCOPY CA SCRN NOT HI RSK performed [facility] Julissa Vinson [facility] CORONARY ANGIOGRAPHY W/LEFT HEART CATH Right 08/16/2016 CORONARY ANGIOGRAPHY W/LEFT HEART CATH performed by Khang Mir MD at [facility] CORONARY ANGIOGRAPHY W/LEFT HEART CATH Right 05/29/2024 CORONARY ANGIOGRAPHY W/LEFT HEART CATH performed by Gretchen Leone MD at [facility] EGD, FLEXIBLE, DIAGNOSTIC 07/13/2016 Barretts, repeat 3 yrs/[facility] EGD, FLEXIBLE, DIAGNOSTIC N/A 06/08/2024 multiple non-bleeding angioectasias small intestine, clipped/ESOPHAGOGASTRODUODENOSCOPY (EGD), FLEXIBLE, TRANSORAL, DIAGNOSTIC performed by Belén Hernadez MD at OR [facility] MISCELLANEOUS ORDER ([facility] ONLY) left wrist fracture and surgical repair MISCELLANEOUS ORDER ([facility] ONLY) ACT 112 signed, 08/10/2018 PARTIAL REMOVAL OF EYE FLUID Right 08/21/2018 23G PPV/MP for ERM with VMT OD, Dr. Johnston RELIEVE INNER EYE PRESSURE Right 10/19/2019 right GONIOTOMY performed by Ankit Ny MD at OR [facility] [address] RELIEVE INNER EYE PRESSURE Left 10/30/2019 left GONIOTOMY performed by Ankit Ny MD at [facility] REMOVAL OF ADENOIDS, AGE 12+ REMOVAL OF TONSILS, UNDER AGE 12 REMOVE CATARACT, INSERT LENS PROSTH Right 10/19/2019 right EXTRACAPSULAR CATARACT REMOVAL WITH INTRAOCULAR LENS performed by Ankit Ny MD at OR [facility] [address] REMOVE CATARACT, INSERT LENS PROSTH Left 10/30/2019 left EXTRACAPSULAR CATARACT REMOVAL WITH INTRAOCULAR LENS performed by Ankit Ny MD at [facility] REPLACE AORTIC VALVE, PERCUTANEOUS FEMORAL N/A 06/19/2024 REPLACE AORTIC VALVE, PERCUTANEOUS FEMORAL performed by Khang Mir MD at [facility] REPLACE AORTIC VALVE, PERCUTANEOUS FEMORAL N/A 06/19/2024 REPLACE AORTIC VALVE, PERCUTANEOUS FEMORAL performed by Woody Alanis MD at [facility] SHOULDER SURGERY PROCEDURE NEC 2003, 2008 left then right rotator cuff Family History Problem Relation Name Age of Onset Cancer Mother Cancer Stroke Father prostate cancer Diabetes Sister Diabetes Grandmother (Maternal) Eye Problems None Denies family hx of AMD, RD, glaucoma, or blindness Heart Disorder None Hypertension None Thyroid Disorder None Has patient ever had cancer? No Social History Tobacco Use Smoking status: Former Current packs/day: 0.00 Average packs/day: 2.0 packs/day for 30.0 years (60.0 ttl pk-yrs) Types: Cigarettes Start date: 12/03/1982 Quit date: 12/03/2012 Years since quittin.6 Passive exposure: Past Smokeless tobacco: Never Substance Use Topics Alcohol use: Yes Alcohol/week: 0.0 standard drinks of alcohol Comment: seasonally and socially Vaping/E-Cigarette Use Vaping/E-Cigarette Use Never User Passive Exposure No Vaping/E-Cigarette Substances Nicotine No Other No Flavoring No THC No Cannabidiol (CBD) No Vaping/E-Cigarette Devices Disposable No Pre-filled or Refillable Cartridge No Refillable Tank No Pre-filled Pod No Tobacco/Alcohol screening completed today? Yes Hospital Care: Admissions (within the last year): Hospital, Location: [facility] 03/2024 [facility] 04/2024 [facility] 04/2024 [facility] 05/2024 [facility] 06/2024 [facility] 06/2024 ER within 30 days: Yes, when: 07/04/2024 and where: [facility] Does the patient have an Advance Directives/Living Will? Yes Advance Care Planning is important to all adults. Discussed the process of thinking and talking about future healthcare decisions. Reviewed Living Will with patient. Last Physical Exam: Last physical exam: 07/17/2024 Does patient see primary provider regularly? Yes Does patient see other providers? Yes, Specialist Patient Care Team updated? Yes Review of patient's allergies indicates: Allergen Reactions Empagliflozin Fungal infection, urinary frequency Lisinopril Cough Nickel Rash Tetanus Toxoids Rash Miralax [Polyethylene Glycol] Other (Please comment) Severe gas Immunization History Administered Date(s) Administered COVID-19 mRNA, LNP-s, No Preserve, 2-Dose Series (Moderna) 07/22/2020, 08/19/2020 COVID-19, MRNA-LNP, PF, 50 MCG/0.5 mL, 12 YRS AND ABOVE, IM (MODERNA-Spikevax) 04/04/2023 COVID-19, mRNA, LNP-s, PF, Booster, 100mcg/0.5mg (Moderna) 04/16/2021 Covid-19 Ad26, Single Dose (Sylvia/J&J) 07/22/2020, 08/19/2020 Pneumococcal Conjugate Vaccine, 20-valent ([id number]) 05/20/2023 Pneumococcal Polysaccharide PPV23 (Pneumovax) 03/11/2009 Seasonal Influenza Vac., MDV, IM, 0.5 mL (Fluzone) 05/17/2012, 07/16/2013, 06/15/2015, 03/07/2016 Seasonal Influenza, High Dose, Trivalent, PF, IM (Fluzone HD) 07/17/2024 Seasonal Influenza, Quadrivalent Hd (Fluzone Hd) 04/04/2023 Seasonal Influenza, Quadrivalent, ID 02/19/2020, 04/16/2021, 03/11/2022 Zoster Vaccine Recombinant (Shingrix) 04/04/2023, 06/10/2023 Current Outpatient Medications Medication Sig Dispense Refill [...] eyes in the morning. 15 mL 3 Vitamin C 1000 MG Oral Tablet Take [...] mouth in the morning. 90 Tablet 3 oxyCODONE-Acetaminophen 5-325 MG Oral Tablet (Percocet) Take 1 Tablet by mouth every 4 hours as needed for Pain, Moderate. 20 Tablet 0 Amiodarone HCl 200 MG Oral Tablet (Cordarone) Take 1 Tablet by mouth in the morning and 1 Tablet atnoon and 1 Tablet before bedtime. Reduce to 200mg daily starting July 21 2024. Metoprolol Succinate 50 MG Oral Capsule ER 24 Hour Sprinkle Take 50 mg by mouth in the morning. Acetaminophen 500 MG Oral Capsule Take 2 Capsules by mouth every 4 hours as needed for Pain, Mild or Fever >38C(100.5F). Furosemide 20 MG Oral Tablet (Lasix) Take 1 Tablet by mouth daily as needed (leg swelling and weight gain). 30 Tablet 3 Amoxicillin 500 MG Oral Capsule (Amoxil) Take 4 capsules 1 hour prior to any dental work/cleaning. 4 Capsule 3 Docusate Sodium 100 MG Oral Capsule (Colace) Take 1 Capsule by mouth in the morning and 1 Capsule before bedtime. For 7 days. (Patient not taking: Reported on 07/17/2024) No current facility-administered medications for this visit. 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 Yes Patient takes medications as prescribed? Yes Patient manages own medications: Yes Patient uses a pill box? No Dental Exam: No Encouraged twice yearly cleaning Eye Screening: Yes: Every 6 months Are you having trouble with hearing? No Do you use an assistive device to help your hearing? No Exercise Screening: does not exercise regularly Nutrition Assessment: Eats one - two meals a day Some fruits, not as many vegetables Pain Screening: Are you having any pain? No Sleep Screening Tool 'STOP': Has sleep apnea, uses CPAP Patient and Caregiver Support System: Patient lives alone Means of Transportation: Drives. Not a concern. Patient lives in Two Story - How many stairs: 15 steps, with hand railings Community Resources: Not Applicable Functional Status and ADL Skills: Has patient ever had an amputation? No Functional Assessment: 80- Normal activity with effort: some symptoms of disease Ambulation: Patient ambulates without assistive device. Independent Dressing: Gets clothes and dresses without any assistance: Independent Able to move freely in chair or bed including turning over: Independent Repositioning (bed or chair): Not applicable Transfers: Independent Toileting: Goes to bathroom, uses toilet, arranges clothes and returns without any assistance: Independent Toileting: continent of bowel and incontinent of bladder Feeding: Self Bathing: Self; walk in shower, grab bars, mat to step out onto Requires none assistance with ADLs. Instrumental ADL's: Shopping: Moderate Assistance, daughter helps Housekeeping: Minimal Assistance Handling Finances: Independent DME Vendor Name: Not Applicable Fall Risk Assessment: Fall Risk Assessment Questionnaire & Timed Up and Go Test (TUG) None Can the patient demonstrate that he can stand from a sitting position? Yes Has the patient had a fall within the last 6 months? No Does the patient have a problem with his gait or balance? Yes Does the patient take 4 or more prescription medicines? Yes Does the patient use sedatives or narcotics? No Fall Risk Factors Present: History of falls within the past 6 months Yes Cause of fall: Patient lost balance. Uses more than 4 medications Balance or gait disturbances Older than age 70 Adq-Jy-jtz-Go Test: Time began at 1000. Patient stood from sitting position and walked approximately 10 feet, returned and sat down. Total time for mld-uc-ghz-go test was 15 seconds. Tsy-Wk-rxo-Go Test completed? Yes Gender Specific Preventative Plan: Health Maintenance Topic Date Due Alpha-1 Antitrypsin Never done Lung Cancer Screening Never done COVID-19 Vaccine ( season) 2024 HbA1c 10/03/2024 Diabetic Eye Exam 12/12/2024 Albumin/Creatinine Ratio 03/26/2025 B-12 06/08/2025 O2 ASSESSMENT COMPLETED IN PAST YEAR FOR COPD 06/19/2025 GFR 07/16/2025 Diabetic Foot Exam 07/24/2025 Depression Screening 07/24/2025 Adult Wellness Visit 07/24/2025 Colorectal Cancer Screening 05/02/2029 Influenza Vaccine (FLU shot) Completed AAA Screening Completed Zoster Vaccines Completed Pneumococcal Vaccine: 50+ Years Completed Hepatitis B Vaccine Aged Out MENINGOCOCCAL (MENACTRA/MENVEO) Aged Out HPV (Gardasil) Vaccine Aged Out Meningitis B Vaccine (Bexsero/Trumemba) Aged Out Follow Up/ Referrals/Handouts: Depression screening - Completed Functional assessment - Completed Falls Risk screening - Completed, handout given Exercise screening - Encouraged to be as active as able Nutrition assessment -. Education Provided and Handouts Provided Pain screening - No concerns Incontinence screening - Urinary incontinence, no new concerns Routine general medical examination at a health care facility (Primary) Type 2 diabetes mellitus with hemoglobin A1c goal of less than 7.0% ([facility]) - DIABETES FOOT EXAM Component Latest Ref Rng 04/05/2024 Hemoglobin A1C 4.0 - 5.6 % 4.9 Estimated Average Glucose <126 mg/dL 94 -Med reconciliation completed and compliance discussed. - pt to continue present medications. Continue to monitor and follow with PCP. Dyslipidemia, goal LDL below 130 Component Latest Ref Rng 07/20/2023 Non-HDL Cholesterol <=159 mg/dL 92 -Med reconciliation completed and compliance discussed. - pt to continue present medications. Continue to monitor and follow with PCP REMBERTO on CPAP Continue to monitor and follow with PCP HTN, goal below 140/90 BP Readings from Last 3 Encounters: 07/24/24 123/50 07/18/24 129/73 07/17/24 126/56 -Med reconciliation completed and compliance discussed. - pt to continue present medications. Continue to monitor and follow with PCP/Cardiology Patient has been verbally educated on the need or importance of Diabetic Foot Exam and Lung Cancer Screening, Alpha-1 Antitrypsin level DM Foot exam completed today Lung Cancer Screening - defer to PCP Alpha-1 Antitrypsin level - defer to PCP Discussed importance of Covid Vaccine: pt has received the vaccine Yes, Patient has received Covid vaccine and boosters. Has not received most recent booster. Would patient like to schedule next AWV visit? Yes Kimberlee Campuzano RN DM Foot Exam completed today. Kimberlee Campuzano RN Socks and Shoes Removed for Annual Diabetic Foot Screening RIGHT FOOT: No Reddened, Cracking, Or Open Areas Noted. RIGHT Dorsalis Pedis Pulse: Palpable RIGHT Posterior Tibial Pulse: Palpable RIGHT Monofilament:Patient reports feeling monofilament pressure on plantar surface of foot LEFT FOOT: No Reddened, Cracking or Open Areas Noted. LEFT Dorsalis Pedis Pulse: Palpable LEFT Posterior Tibial Pulse: Palpable LEFT Monofilament:Patient reports feeling monofilament pressure on plantar surface of foot Do you need diabetic shoes: N/A documented in this encounter Miscellaneous Notes * Pt Handout (not on AVS) - Kimberlee Campuzano RN - 07/24/2024 11:07 AM EDT [id number] Fall Prevention Falls often take place due to slipping, tripping, or losing your balance. Millions of people fall every year and injure themselves. Among older adults in the [place] falls are the most common cause of traumatic brain injuries. Every 20 minutes, an older adult dies from a fall. Here are ways to reduceyour risk of falling again: · Think about your fall. Was there anything that caused your fall that can be fixed, removed, or replaced? · Make your home safe by keeping walkways clear of objects you may trip over, such as electrical cords. · Use nonslip pads under rugs. Don't use area rugs or small throw rugs. · Use nonslip mats in bathtubs and showers. · Hang grab rails by the toilet and inside and outside the shower. · Install handrails and lights on staircases. The handrails should be on both sides of the stairs. · Use night lights. · Don't walk in poorly lit areas. · Don't stand on chairs or wobbly ladders. · Use care when reaching overhead or looking up. This position can cause a loss of balance. · Be sure your shoes fit well, are in good condition, and have nonslip bottoms. · Wear shoes both inside and outside of your home. Don't go barefoot or wear slippers. · Be cautious when going up and down stairs, curbs, and when walking on uneven sidewalks. · If your balance is poor, consider using a cane or walker. Talk with your healthcare provider about having a balance assessment. · If your fall was related to alcohol use, stop or limit alcohol intake. Ask your provider for help if you think you may overuse alcohol and can't stop. · If your fall was related to use of sleeping medicines, talk with your provider about this. You may need to reduce your dosage at bedtime if you wake up during the night to go to the bathroom. · To reduce the need for nighttime bathroom trips: o Don't drink fluids for several hours before going to bed o Empty your bladder before going to bed o Men can keep a urinal at the bedside · Stay as active as you can. Balance, flexibility, strength, and endurance all come from exercise.They all play a role in preventing falls. Ask your provider which types of activity are right for you. Try to do some type of exercise every day. · Get your eyes checked once a year or more often if your vision changes · If you have pets, know where they are before you stand up or walk so you don't trip over them. · Go over all your medicines with a pharmacist or other provider. This is to see if any of them could make you more likely to fall. Have this type of medicine review at least once every year. · If your provider advises a new medicine, ask if the side effects will affect your balance. · Don't move quickly from one position to another. For instance, don't stand up fast from sitting.This can cause dizziness and may lead to a fall. · Sit down when putting on pants, socks, and shoes. This will make you less likely to lose your balance and fall. · Always let your provider know if you have fallen since your last visit. · Contact your provider right away if you're having balance problems or falling more often. Last Reviewed Date: 2021 00:00:00 © [employer]. All rights reserved. This information is not intended as a substitute for professional medical care. Always follow your healthcare professional's instructions. * Pt Handout (not on AVS) - Kimberlee Campuzano RN - 07/24/2024 11:06 AM EDT Images from the original note were not included. [id number] Steps for Eating Healthier Changing the way you eat can improve your health. It can lower your cholesterol and blood pressure,and help you stay at a healthy weight. Your diet doesn?t have to be bland and boring to be healthy.Just watch your calories and follow these steps: Step 1. Eat fewer unhealthy fats · Choose more fish and lean meats instead of fatty cuts of meat. · Skip butter and lard, and use less margarine. Replace these with healthier fats, such as olive, canola, or avocado oils. · Pass on foods that have palm, coconut, or partially hydrogenated oils. · Eat fewer high-fat dairy foods like cheese, ice cream, and whole milk. · Get a heart-healthy cookbook and try some new recipes. Step 2. Go light on salt · Keep the saltshaker off the table. · Limit high-salt ingredients, such as soy sauce, bouillon, and garlic salt. · Instead of adding salt when cooking, season your food with herbs, spices, and other flavorings. Try lemon, garlic, onion, vinegar, or salt-free herb seasonings. · Limit convenience foods, such as boxed or canned foods and restaurant food. · Read food labels and choose lower-sodium options. Buy fresh, frozen, or canned vegetables that don't have added salt. Step 3. Limit sugar · Pause before you add sugars to pancakes, cereal, coffee, or tea. This includes white and brown table sugar, syrup, honey, and molasses. Cut your usual amount by half. · Swap out sugar-filled soda and other drinks. Buy sugar-free or low-calorie beverages. Remember, water is always the best choice. Try adding lemon juice to water for extra flavor. · Read labels and choose foods with less added sugar. Keep in mind that dairy foods and foods withfruit will have some natural sugar. · Cut the sugar in recipes by 1/3 to 1/2. Boost the flavor with extracts like almond, vanilla, or orange. Or add spices such as cinnamon or nutmeg. Step 4. Eat more fiber · Eat fresh fruits and vegetables every day. · Boost your diet with whole grains. Go for oats, whole-grain rice, and bran. · Add beans and lentils to your meals. · Drink more water to match your fiber increase to help prevent constipation. Step 5. Pay attention to serving sizes · Remember that a serving size is a standard measurement. It will let you track the amount of fat,calories, and other nutrients in the food you eat. · Read the Nutrition Facts label on packaged foods to learn their serving sizes. · Use serving sizes to assess how much food you put on your plate. Pay attention to your portions.How many servings are you eating? · Keep in mind that your needs may change if you?re more active or less active, or if you have other factors that change your calorie needs. · Use your hand to help you measure serving sizes. For example: o 1 teaspoon: This is about the size of the first joint of your thumb. o 1 tablespoon: This is about the size of the first 2 joints of your thumb. o 1 ounce: This is about what you can fit in your cupped hand. o 2 to 3 ounces: This is about the size of the palm of your hand. o ½ cup: This is also about what you can fit in your cupped hand. o 1 cup: This is about the size of your fist. Last Reviewed Date: 2022 00:00:00 © 9567-4536 [employer]. All rights reserved. This information is not intended as a substitute for professional medical care. Always follow your healthcare professional's instructions. documented in this encounter Plan of Treatment Upcoming Encounters Date Type Department Care Team (Late st Contact Info) Description 07/26/2024 9:00 AM EDT Laboratory Laboratory, [facility] [address] [facility] [place] [address] [facility] [address] [facility] [address] 07/26/2024 9:30 AM EDT Office Visit Cardiology, [facility] [address] [facility] [place] [address] Kareen Boyd CRNP [address] [place] [address] 07/27/2024 8:30 AM EDT Hem/Onc Treatment Hematology/Oncology Treatment, [address], [place] [id number] Susie, Chair 11 Hem Onc [address] [place] [address] 07/31/2024 10:00 AM EDT [facility] [address] [place] [address] [facility] [address] [place] [address] 08/01/2024 8:00 AM EDT Hem/Onc Treatment Hematology/Oncology Treatment[address], [place] [phone] Susie, Chair 5 Hem Onc [facility] [address] [place] [address] [place], [place] [address] 08/09/2024 12:30 PM EDT Hem/Onc Treatment Hematology/Oncology Treatment, [address], [place] [id number] Susie, Chair 1 Hem Onc [facility] [address] [place] [address] [place] [address] 08/09/2024 2:30 PM EDT Office Visit Hematology/Oncology [facility] [place] [address] [address] [place] [phone] Bruna Funk CRNP [address] [place] [address] 10/09/2024 10:00 AM EDT Cardiac Studies Cardiology, [facility] [address] [facility] [place] [address] [facility] [address] [facility] [place] [address] 10/17/2024 8:00 AM EDT Office Visit [facility] Practice, [facility] [address] [facility] [place] [phone] Declan Dejesus MD [facility] [place] [address] 07/29/2025 10:00 AM EDT Nurse Only Ancillary Department, [facility] Kamara [facility] [place] [phone] Nurse Ashleigh [facility] [address] [place] [id number] Health Maintenance Due Date Last Done Comments [...] this encounter Medical Devices Implanted Type Area Pot Pusher Device Identifier Shelf Expiration Date Model / Serial / Lot Iol Mx60 14.0 Implanted:Qty: 1 on 10/19/2019 by Ankit Ny MD at OR [facility] [address] Right: Eye 04/14/2020 MX60 / [id number] / [id number] Implanted:Qty: 1 on 10/30/2019 by Ankit Ny MD at OR [facility] [address] Left: Eye 02/12/2021 MX60 / [id number] / [id number] Clip Ultra 360 235cm - [id number] Implanted:Qty: 1 on 05/02/2024 by Omid Bonner MD at OR [facility] Colon [employer] ENDOSCOPY [id number] 12/26/2026 [id number] / / [id number] Clip Ultra 360 235cm - [id number] Implanted:Qty: 1 on 05/02/2024 by Omid Bonner MD at OR [facility] Colon [employer] ENDOSCOPY [id number] 12/26/2026 [id number] / / [id number] Clip Ultra 360 235cm - [id number] Implanted:Qty: 1 on 05/02/2024 by Omid Bonner MD at OR [facility] Colon [employer] ENDOS[employer] [id number] 12/26/2026 [id number] / / [id number] Catheter Hemostatic 235cm 2.8mm [address]mm [address] Latexfree - [id number] Implanted:Qty: 1 on 06/08/2024 by Belén Hernadez MD at OR [facility] [employer] ENDOS[employer] [id number] 01/01/2027 [id number] / / [id number] Clip Ultra 360 235cm - [id number] Implanted:Qty: 1 on 06/08/2024 by Belén Hernadez MD at OR [facility] [employer] ENDOS[employer] [id number] 03/06/2027 [id number] / / [id number] Catheter Hemostatic 235cm 2.8mm [address] [employer] - [id number] Implanted:Qty: 1 on 06/08/2024 by Belén Hernadez MD at OR [facility] [employer] [id number] 01/30/2027 [id number] / / [id number] Clip Ultra 360 235cm - [id number] Implanted:Qty: 1 on 06/08/2024 by Belén Hernadez MD at OR [facility] [employer] END[employer] [id number] 12/27/2026 [id number] / / [id number] Catheter Hemostatic 235cm 2.8mm [address] Late[employer]free - [id number] Implanted:Qty: 1 on 06/08/2024 by Belén Hernadez MD at OR [facility] [employer] END[employer] [id number] 01/30/2027 [id number] / / [id number] Clip Ultra 360 235cm - [id number] Implanted:Qty: 1 on 06/08/2024 by Belén Hernadez MD at OR [facility] [employer] ENDOS[employer] [id number] 12/27/2026 [id number] / / [id number] Clip Ultra 360 235cm - [id number] Implanted:Qty: 1 on 06/08/2024 by Belén Hernadez MD at OR [facility] [employer] ENDOS[employer] [id number] 12/26/2026 [id number] / / [id number] Clip Ultra 360 235cm - [id number] Implanted:Qty: 1 on 06/08/2024 by Belén Hernadez MD at OR [facility] [employer] [id number] 12/27/2026 [id number] / / [id number] Clip Hemostatic 18mm Assurance - [id number] Implanted:Qty: 1 on 06/08/2024 by Belén Hernadez MD at OR [facility] [id number] 01/02/2027 [id number] / [id number] Catheter Hemostatic 235cm 2.8mm [address] Latexfree - [id number] Implanted:Qty: 1 on 06/08/2024 by Belén Hernadez MD at OR [facility] [employer] ENDOS[employer] [id number] 01/30/2027 [id number] / / [id number] Catheter Hemostatic 235cm 2.8mm [address] Latexfree - [id number] Implanted:Qty: 1 on 06/08/2024 by Belén Hernadez MD at OR [facility] [employer] [id number] 01/30/2027 [id number] / / [id number] Clip Hemostatic 11mm Assurance - [id number] Implanted:Qty: 1 on 06/08/2024 by Belén Hernadez MD at OR [facility] [employer] 11/14/2026 [id number] / / [id number] Catheter Hemostatic 235cm 2.8mm [address] Late[employer]free - [id number] Implanted:Qty: 1 on 06/08/2024 by Belén Hernadez MD at OR [facility] [employer] ENDOS[employer] [id number] 01/01/2027 [id number] / / [id number] Catheter Hemostatic 235cm 2.8mm [address] Latexfree - [id number] Implanted:Qty: 1 on 06/08/2024 by Belén Hernadez MD at OR [facility] [employer] END[employer] [id number] 01/30/2027 [id number] / / [id number] Valve Transcath Resilia 26mm - [id number] - [id number] Implanted:Qty: 1 on 06/19/2024 by Khang Mir MD at [facility] [employer] [id number] 09/27/2026 [id number] / [id number] / [id number] documented as of this encounter Visit Diagnoses Diagnosis Routine general medical examination at a health care facility- Primary Type 2 diabetes mellitus with hemoglobin A1c goal of less than 7.0% (HCC) Dyslipidemia, goal LDL below 130 Other and unspecified hyperlipidemia REMBERTO on CPAP Obstructive sleep apnea (adult) (pediatric) HTN, goal below 140/90 Unspecified essential hypertension [...] the patient have Health Care Power of Valving Machine Operator? Yes, not currently available * No Code Date Activated Date Inactivated Comments 05/01/2024 11:50 AM 05/02/2024 9:14 AM This orde r reflects the patients wishes and were consensually agreed upon. Question Answer Comments Discussion of Advance Directives occurred with: Patient Healthcare Agents on File Name Relationship Healthcare Agent [facility] Communication Mattie Branch Adult Child First Alternat e Health Care Agent (per Health Care Power of Valving Machine Operator document) Care Teams Beautician Apprentice Relationship Specialty Start Date End Date September, Declan Person MD [address] [facility] [place] [address] PCP - General Family Medicine 05/20/23 documented as of this encounter
--- OUTSIDE RECORDS SUMMARY | 2024-07-31 09:03 | External Medical Summary | Summary of Care ---
Author Name Unknown Organization [facility] Address [address] [place] [address] Phone [phone] Care Team Providers Care Brush Filler Hand Name Role Phone Declan Dejesus MD Primary Care Provider [phone] Encounter Details Date Type Department Care Team (Late st Contact Info) Description 07/23/2024 12:00 PM EDT Scheduled Telephone Care Coordination and Integration [address] [place], [place] [phone] Shara Ruiz, Community Health Parts Designer [address] [place], [place] [phone] Allergies Active Allergy Reactions Criticality Noted Date Comments Empagliflozin 10/06/2020 Fungal infection, urinary frequency Lisinopril Cough Polyethylene Glycol Other (Please comment) Low 04/26/2024 Severe gas Nickel Rash 09/13/2011 Tetanus Toxoids Rash 09/13/2011 documented as of this encounter (statuses as of 07/23/2024) Medications MULTI VITAMIN MENS PO TABS one [...] as of this encounter (statuses as of 07/23/2024) Active Problems Problem Noted Date Diagnosed Date Glaucoma 06/26/2024 Pulmonary emphysema 06/26/2024 S/P TAVR (transcatheter aortic valve replacement ) 06/20/2024 History of arteriovenous malformation (AVM) 05/17 Edema of right lower leg 06/07/2024 Atherosclerosis of [place] co ronary artery without angina pectoris 05/11/2024 [...] as of this encounter (statuses as of 07/23/2024) Resolved Problems Problem Noted Date Diagnosed Date Resolved Date Primary open-angle glaucoma, right eye, moderate stage 10/16/2020 08/15/2023 Overview (08/15/2023): Noted on pl as OU moderate Glaucoma 08/27/2013 06/07/2022 Overview (06/07/2022): More specific dx on pl HTN, goal below 140/80 07/03/201210/29 Overview: Per HTN Protocol documented as of this encounter (statuses as of 07/23/2024) Immunizations Name Administration Dates Next Due COVID-19 mRNA, LNP-s, No Pre serve, 2-Dose Series (Moderna) 08/19/2020,07/22/2020 COVID-19, MRNA-LNP, PF, 50 M CG/0.5 mL, 12 YRS AND ABOVE, IM (MODERNA-Spikevax) 04/04/2023 COVID-19, mRNA, LNP-s, PF, B ooster, 100mcg/0.5mg (Moderna) 04/16/2021 Covid-19 Ad26, Single Dose (Sylvia/J&J) 08/19/2020,07/22/2020 Pneumococcal Conjugate Vacci ne, 20-valent (Ghxwsrz64) 05/20/2023 Pneumococcal Polysaccharide PPV23 (Pneumovax) 03/11/2009,10/11/2008(Deferred: Patient [...] documented in this encounter Progress Notes * Shara Ruiz, Community Health Parts Designer - 07/23/2024 12:12 PM EDT Telemedicine visit: No Community Health Parts Designer (JHOAN) documentation: This CHW placed #2 f/u PC to patient per CM's request Patient is will having a lot of weakness and is exhausted since hospitalization and is having incision site discomfort. Are you experiencing any chest pain or discomfort? No Have you been experiencing any palpitations or tachycardia? No Have you been experiencing any dizziness or lightheadedness? Yes, all the time. Especially when standing up and moving around Have you had any syncopal episodes? No Are you experiencing any increase in weakness or fatigue since your hospitalization? yes Have you noticed any increase in shortness of breath since your procedure? yes Have you noticed any new or unusual swelling? No Are you experiencing any fevers or chills? No Are you experiencing any change in your bowels? No Patient has wellness check up tomorrow and has Veterinary Livestock Inspector appointment on Tuesday this week. This Chw confirmed CM's contact name and number and encouraged patient to reach out to CM with any concerns or questions and this CHW will follow up with patient next week as scheduled. Shara Ruiz- Community Health Worker 1 Support Services/[facility] [email or web address] documented in this encounter Plan of Treatment Upcoming Encounters Date Type Department Care Team (Late st Contact Info) Description 07/24/2024 10:00 AM EDT Nurse Only Ancillary Department, [address] [place] [phone] Ashleigh Nurse Annual Wellness [address] [place] [address] 07/26/2024 9:00 AM EDT Laboratory Laboratory, [facility] [address] [facility] [place] [address] Kg Stafford [facility] [address] [place] [address] 07/26/2024 9:30 AM EDT Office Visit Cardiology, [facility] [address] [facility] [place], [place] [address] Kareen Boyd CRNP [address] [place] [address] 07/27/2024 8:30 AM EDT Hem/Onc Treatment Hematology/Oncology Treatment, [address] [place] [phone] Susie, Chair 11 Hem Onc [facility] [address] [place] [address] [place] [address] 07/31/2024 10:00 AM EDT Laboratory Laboratory, Ashleigh Kamara [address] [place] [address] Ash[facility] Laboratory [address] [place] [address] 08/01/2024 8:00 AM EDT Hem/Onc Treatment Hematology/Oncology Treatment, [address] [place] [phone] Susie, Chair 5 Hem Onc Scenery 200 [facility] [place] [address] 08/09/2024 12:30 PM EDT Hem/Onc Treatment Hematology/Oncology Treatment, [address], [place] [phone] Susie, Chair 1 Hem Onc [facility] 200 [facility] [place] [address] 08/09/2024 2:30 PM EDT Office Visit Hematology/Oncology [facility] [place] 200 [facility] [place], [place] [phone] Bruna Funk, CYNDI [facility] [address] 10/09/2024 10:00 AM EDT Cardiac Studies Cardiology, [facility] 132 [facility] [place] [address] [facility] 132 [facility] [place] [address] 10/17/2024 8:00 AM EDT [facility] [address] SeptemberDeclan MD [address] [place] [address] Health Maintenance Due Date Last Done Comments [...] this encounter Medical Devices Implanted Type Area Design Painter Device Identifier Shelf Expiration Date Model / Serial / Lot Iol Mx60 14.0 Implanted:Qty: 1 on 10/19/2019 by Ankit Ny MD at OR [facility] Right: Eye 04/14/2020 MX60 / [id number] / [id number] Implanted:Qty: 1 on 10/30/2019 by Ankit Ny MD at OR [facility] Left: Eye 02/12/2021 MX60 / [id number] / [id number] Clip Ultra 360 235cm - [id number] Implanted:Qty: 1 on 05/02/2024 by Omid Bonner MD at OR [facility] Colon [employer] ENDOSCOPY [id number] 12/26/2026 [id number] / / [id number] Clip Ultra 360 235cm - [id number] Implanted:Qty: 1 on 05/02/2024 by Omid Bonner MD at OR [facility] Colon [employer] ENDOSCOPY [id number] 12/26/2026 [id number] / / [id number] Clip Ultra 360 235cm - [id number] Implanted:Qty: 1 on 05/02/2024 by Omid Bonner MD at OR [facility] Colon [employer] : ENDOSCOPY [id number] 12/26/2026 [id number] / / [id number] Catheter Hemostatic 235cm 2.8mm [address]mm [address] Latexfree - [id number] Implanted:Qty: 1 on 06/08/2024 by Belén Hernadez MD at OR [facility] [employer] ENDOSCOPY [id number] 01/01/2027 [id number] / / [id number] Clip Ultra 360 235cm - [id number] Implanted:Qty: 1 on 06/08/2024 by Belén Hernadez MD at OR [facility] [employer] ENDOS[employer] [id number] 03/06/2027 [id number] / / [id number] Catheter Hemostatic 235cm 2.8mm 11mm [address] Latexfree - [id number] Implanted:Qty: 1 on 06/08/2024 by Belén Hernadez MD at OR [facility] [employer] ENDOS[employer] [id number] 01/30/2027 [id number] / / [id number] Clip Ultra 360 235cm - [id number] Implanted:Qty: 1 on 06/08/2024 by Belén Hernadez MD at OR [facility] [employer] ENDOSCOPY [id number] 12/27/2026 [id number] / / [id number] Catheter Hemostatic 235cm 2.8mm 11mm [address] Latexfree - [id number] Implanted:Qty: 1 on 06/08/2024 by Belén Hernadez MD at OR [facility] [employer] ENDOSCOPY [id number] 01/30/2027 [id number] / / [id number] Clip Ultra 360 235cm - [id number] Implanted:Qty: 1 on 06/08/2024 by Belén Hernadez MD at OR [facility] [employer] ENDOSCOPY [id number] 12/27/2026 [id number] / / [id number] Clip Ultra 360 235cm - [id number] Implanted:Qty: 1 on 06/08/2024 by Belén Hernadez MD at OR [facility] [employer] ENDOSCOPY [id number] 12/26/2026 [id number] / / [id number] Clip Ultra 360 235cm - [id number] Implanted:Qty: 1 on 06/08/2024 by Belén Hernadez MD at OR [facility] [employer] ENDOSCOPY [id number] 12/27/2026 [id number] / / [id number] Clip Hemostatic 18mm Assurance - [id number] Implanted:Qty: 1 on 06/08/2024 by Belén Hernadez MD at OR [facility] [employer] [id number] 01/02/2027 [id number] / / [id number] Catheter Hemostatic 235cm 2.8mm [address] Latexfree - [id number] Implanted:Qty: 1 on 06/08/2024 by Belén Hernadez MD at OR [facility] [employer] ENDOSCOPY [id number] 01/30/2027 [id number] / / [id number] Catheter Hemostatic 235cm 2.8mm [address] Latexfree - [id number] Implanted:Qty: 1 on 06/08/2024 by Belén Hernadez MD at OR [facility] [employer] ENDOSCOPY [id number] 01/30/2027 [id number] / / [id number] Clip Hemostatic 11mm Assurance - [id number] Implanted:Qty: 1 on 06/08/2024 by Belén Hernadez MD at OR [facility] [employer] 11/14/2026 [id number] / / [id number] Catheter Hemostatic 235cm 2.8mm [address]mm [address] Latexfree - [id number] Implanted:Qty: 1 on 06/08/2024 by Belén Hernadez MD at OR [facility] [employer] ENDOSCOPY [id number] 01/01/2027 [id number] / / [id number] Catheter Hemostatic 235cm 2.8mm [address]mm [address] Latexfree - [id number] Implanted:Qty: 1 on 06/08/2024 by Belén Hernadez MD at OR [facility] [employer] ENDOSCOPY [id number] 01/30/2027 [id number] / / [id number] Valve Transcath Resilia 26mm - [id number] - [id number] Implanted:Qty: 1 on 06/19/2024 by Khang Mir MD at [facility] [place] [employer] [id number] 09/27/2026 [id number] / [id number] / [id number] documented as of this encounter Advance Directives * Full Code (Latest Code Status on File) Date Activated Date Inactivated Comments 06/19/2024 12:49 PM 06/20/2024 4:51 PM This order r eflects the patients wishes and were consensually agreed [...] the patient have Health Care Power of Warehouse Technician? Yes, not currently available * No Code [...] Care Agent (per Health Care Power of Warehouse Technician document) Care Teams Brush Filler Hand Relationship Specialty Start Date End Date September, Declan Person MD [address] [place] [address] PCP - General Family Medicine 05/20/23 documented as of this encounter
--- OUTSIDE RECORDS SUMMARY | 2024-07-31 09:04 | External Medical Summary | Summary of Care ---
Author Name Unknown Organization [facility] Address [address] [facility] [place] [address] Phone [phone] Care Team Providers Care Weatherization Operations Manager Name Role Phone Declan Dejesus MD Primary Care Provider [phone] Reason for Visit * Reason Onset Date Comments Test Results Lab 07/17/2024 Encounter Details Date Type Department Care Team (Late st Contact Info) Description 07/17/2024 Telephone Hematology/Oncology [facility] 200 [facility] [place] [address] Bruna Funk CRNP 400 [facility] [place] [address] Test Results [...] hemoglobin A1c goal of less than 7.0% ([facility]) Take 1 Tablet by mouth in the [...] of right lower leg 06/07/2024 Atherosclerosis of [place] co ronary artery without angina pectoris 05/11/2024 [...] (Sylvia/J&J) 08/19/2020,07/22/2020 Pneumococcal Conjugate Vacci ne, 20-valent (Jpoihsf26) 05/20/2023 Pneumococcal Polysaccharide PPV23 (Pneumovax) 03/11/2009,10/11/2008(Deferred: Patient [...] 12:58 PM EST Order received for Venofer Calhoun plan built and routed to provider No [...] 07/18/2024 8:30 AM EST Hem/Onc Treatment Hematology[address] [phone] Susie, Chair 11 Hem Onc [address] [place] [address] 07/19/2024 2:30 PM EST Cardiac Studies Card[facility] Studies, [facility] 132 [facility] [address] 07/24/2024 10:00 AM EDT Nurse Only Ancillary Department, Ashleigh Kamara 226 [facility] [place] [phone] Ashleigh, Nurse Annual Wellness [facility] [place] [address] 07/25/2024 1:30 PM EDT Hem/Onc Treatment Hematology/[address]cology [address], [address] [phone] Susie, Chair 10 Hem Onc [address] [place] [address] 07/26/2024 9:00 AM EDT Laboratory Laboratory, [facility] [address] [facility] [place] [phone] Kg Stafford [facility] [address] [facility] [place], [place] [address] 07/26/2024 9:30 AM EDT Office Visit Cardiology, [facility] [address] [facility] [place] [address] Kareen Boyd CRNP [address] [place] [address] 07/31/2024 10:00 AM EDT [facility] [phone] [facility] 226 [place] [address] 08/01/2024 8:00 AM EDT Hem[facility] 200 [facility], [place] [phone] Susie, Chair 5 Hem Onc Scenery [address] [place] [address] [place] [address] 08/09/2024 12:30 PM EDT Hem/Onc Treatment Hematology/[address]cology [address] [phone] Susie, Chair 1 Hem Onc [facility] [address] [place] [address] [place] [address] 08/09/2024 2:30 PM EDT Office Visit Hematology/Oncology [facility] [place] [facility] [phone] Bruna Funk CRNP [address] [place] [address] 10/09/2024 10:00 AM EDT Cardiac Studies Cardiology, [facility] [address] [place] [address] [facility] [address] [place] [address] 10/17/2024 8:00 AM EDT Office Visit Family Practice, [place] [address] [place] [phone] Declan Dejesus MD [address] [place] [address] Health Maintenance Due Date Last Done Comments [...] this encounter Medical Devices Implanted Type Area Compliance Paralegal Device Identifier Shelf Expiration Date Model / Serial / Lot Iol Mx60 14.0 Implanted:Qty: 1 on 10/19/2019 by Ankit Ny MD at OR [facility] Right: Eye 04/14/2020 MX60 / [id number] / [id number] Implanted:Qty: 1 on 10/30/2019 by Ankit Ny MD at OR [facility] Left: Eye 02/12/2021 MX60 / [id number] 2 / [id number] Clip Ultra 360 235cm - [id number] Implanted:Qty: 1 on 05/02/2024 by Omid Bonner MD at OR [facility] Colon [employer] : ENDOSCOPY [id number] 12/26/2026 [id number] / / [id number] Clip Ultra 360 235cm - [id number] Implanted:Qty: 1 on 05/02/2024 by Omid Bonner MD at OR [facility] Colon [employer] ENDOSCOPY [id number] 12/26/2026 [id number] / / [id number] Clip Ultra 360 235cm - [id number] Implanted:Qty: 1 on 05/02/2024 by Omid Bonner MD at OR [facility] Colon [employer] ENDOSCOPY [id number] 12/26/2026 [id number] / / [id number] Catheter Hemostatic 235cm 2.8mm [address] Latexfree - [id number] Implanted:Qty: 1 on 06/08/2024 by Belén Hernadez MD at OR [facility] [employer] ENDOSCOPY [id number] 01/01/2027 [id number] / / [id number] Clip Ultra 360 235cm - [id number] Implanted:Qty: 1 on 06/08/2024 by Belén Hernadez MD at OR [facility] [employer] ENDOSCOPY [id number] 03/06/2027 [id number] / / [id number] Catheter Hemostatic 235cm 2.8mm [address] Latexfree - [id number] Implanted:Qty: 1 on 06/08/2024 by Belén Hernadez MD at OR [facility] [employer] ENDOSCOPY [id number] 01/30/2027 [id number] / / [id number] Clip Ultra 360 235cm - [id number] Implanted:Qty: 1 on 06/08/2024 by Belén Hernadez MD at OR [facility] [employer] ENDOSCOPY [id number] 12/27/2026 [id number] / / [id number] Catheter Hemostatic 235cm 2.8mm [address] Latexfree - [id number] Implanted:Qty: 1 on 06/08/2024 by Belén Hernadez MD at OR [facility] [employer] ENDOSCOPY [id number] 01/30/2027 [id number] / / [id number] Clip Ultra 360 235cm - [id number] Implanted:Qty: 1 on 06/08/2024 by Belén Hernadez MD at OR [facility] [employer] ENDOSCOPY [id number] 12/27/2026 [id number] / / [id number] Clip Ultra 360 235cm - [id number] Implanted:Qty: 1 on 06/08/2024 by Belén Hernadez MD at OR [facility] [employer] ENDOSCOPY [id number] 12/26/2026 [id number] / / [id number] Clip Ultra 360 235cm - [id number] Implanted:Qty: 1 on 06/08/2024 by Belén Hernadez MD at OR [facility] [employer] ENDOSCOPY [id number] 12/27/2026 [id number] / / [id number] Clip Hemostatic 18mm Assurance - [id number] Implanted:Qty: 1 on 06/08/2024 by Belén Hernadez MD at OR [facility] [employer] [id number] 01/02/2027 [id number] / / [id number] Catheter Hemostatic 235cm 2.8mm [address] Latexfree - [id number] Implanted:Qty: 1 on 06/08/2024 by Belén Hernadez MD at OR [facility] [employer] ENDOSCOPY [id number] 01/30/2027 [id number] / / [id number] Catheter Hemostatic 235cm 2.8mm [address] Latexfree - [id number] Implanted:Qty: 1 on 06/08/2024 by Belén Hernadez MD at OR [facility] [employer] ENDOSCOPY [id number] 01/30/2027 [id number] / / [id number] Clip Hemostatic 11mm Assurance - [id number] Implanted:Qty: 1 on 06/08/2024 by Belén Hernadez MD at OR [facility] [employer] 11/14/2026 [id number] / / [id number] Catheter Hemostatic 235cm 2.8mm [address] Latexfree - [id number] Implanted:Qty: 1 on 06/08/2024 by Belén Hernadez MD at OR [facility] [employer] ENDOSCOPY [id number] 01/01/2027 [id number] / / [id number] Catheter Hemostatic 235cm 2.8mm [address] Latexfree - [id number] Implanted:Qty: 1 on 06/08/2024 by Belén Hernadez MD at OR [facility] [employer] ENDOSCOPY [id number] 01/30/2027 [id number] / / [id number] Valve Transcath Resilia 26mm - [id number] - [id number] Implanted:Qty: 1 on 06/19/2024 by Khang Mir MD at [facility] [place] [employer] [id number] 09/27/2026 [id number] / [id number] / [id number] documented as of this encounter Visit Diagnoses [...] the patient have Health Care Power of Director Of Dementia Operations? Yes, not currently available * No Code Date Activated Date Inactivated Comments 05/01/2024 11:50 AM 05/02/2024 9:14 AM This orde r reflects the patients wishes and were consensually agreed upon. Question Answer Comments Discussion of Advance Directives occurred with: Patient Healthcare Agents on File Name Relationship Healthcare Agent [facility] Mattie Branch Adult Child First Alternat e Health Care Agent (per Health Care Power of Director Of Dementia Operations document) Care Teams Weatherization Operations Manager Relationship Specialty Start Date End Date September, Declan Person MD [address] [place] [address] PCP - General Family Medicine 05/20/23 documented as of this encounter
--- OUTSIDE RECORDS SUMMARY | 2024-07-31 09:04 | External Medical Summary | Summary of Care ---
Author Name Unknown Organization [facility] Address [address] [place] [address] Phone [phone] Care Team Providers Care Tricot Knitting Machine Operator Name Role Phone Declan Dejesus MD Primary Care Provider [phone] Reason for Visit * Reason Onset Date Comments Test Results Lab 07/17/2024 Encounter Details Date Type Department Care Team (Late st Contact Info) Description 07/17/2024 Telephone Hematology/Oncology [facility] 200 [facility] [place] [address] Bruna Funk CRNP 400 [facility] [place] [address] Test Results Lab Allergies [...] less than 7.0% ([facility]) Take 1 Tablet by mouth [...] of right lower leg 06/07/2024 Atherosclerosis of [place] co ronary artery without angina pectoris 05/11/2024 [...] (Sylvia/J&J) 08/19/2020,07/22/2020 Pneumococcal Conjugate Vacci ne, 20-valent (Sprzexj10) 05/20/2023 Pneumococcal Polysaccharide PPV23 (Pneumovax) 03/11/2009,10/11/2008(Deferred: Patient [...] 12:58 PM EST Order received for Venofer [place] plan built and routed to provider No [...] 07/18/2024 8:30 AM EST Hem/Onc Treatment Hematology/Oncology [address] [phone] Susie, Chair 11 Hem Onc [address] [place] [address] 07/19/2024 2:30 PM EST Cardiac Studies Cardiac Studies, [facility] [address] 07/24/2024 10:00 AM EDT Nurse Only Ancillary Department, Ashleigh Kamara 226 [facility] [place] [phone] Ashleigh, Nurse Annual Wellness [facility] [place] [address] 07/25/2024 1:30 PM EDT Hem/Onc Treatment Hematology/Oncology Treatment, [address] [phone] Susie, Chair 10 Hem Onc [address] [place] [address] 07/26/2024 9:00 AM EDT Laboratory Laboratory, [facility] [address] [facility] [place] [phone] Kg [facility] [address] [facility] [place], [place] [address] 07/26/2024 9:30 AM EDT Office Visit Cardiology, [facility] [address] [facility] [place], [place] [address] Kareen Boyd CRNP [address] [place] [address] 07/31/2024 10:00 AM EDT Laboratory Laboratory, [place] [facility] [phone] [facility] 226 [place] [address] 08/01/2024 8:00 AM EDT Hem[facility] 200 [facility], [place] [phone] Susie, Chair 5 Hem Onc Scenery [address] [place] [address] [place] [address] 08/09/2024 12:30 PM EDT Hem/Onc Treatment Hematology/Oncology [address] [phone] Susie, Chair 1 Hem Onc [facility] [address] [place] [address] [place] [address] 08/09/2024 2:30 PM EDT Office Visit Hematology/Oncology [facility] [place] 200 [facility] [phone] Bruna Funk CRNP [address] [place] [address] 10/09/2024 10:00 AM EDT Cardiac Studies Cardiology, [facility] [address] [place] [address] [facility] [address] [place] [address] 10/17/2024 8:00 AM EDT Office Visit Family Practice, Ashleigh Gallegos 226 [place] [phone] Declan Dejesus MD 226 [place] [address] Health Maintenance Due Date Last Done Comments [...] this encounter Medical Devices Implanted Type Area Inspector Hairspring Truing Device Identifier Shelf Expiration Date Model / Serial / Lot Iol Mx60 14.0 Implanted:Qty: 1 on 10/19/2019 by Ankit Ny MD at OR [facility] Right: Eye 04/14/2020 MX60 / [id number] / [id number] Implanted:Qty: 1 on 10/30/2019 by Ankit Ny MD at OR [facility] Left: Eye 02/12/2021 MX60 / [id number] / [id number] Clip Ultra 360 235cm - [id number] Implanted:Qty: 1 on 05/02/2024 by Omid Bonner MD at OR [facility] Colon [employer] ENDOSCOPY [id number] 12/26/2026 [id number] / / [id number] Clip Ultra 360 235cm - [id number] Implanted:Qty: 1 on 05/02/2024 by Omid Bonner MD at OR [facility] Colon [employer] ENDOSCOPY [id number] 12/26/2026 [id number] / / [id number] Clip Ultra 360 235cm - [id number] Implanted:Qty: 1 on 05/02/2024 by Omid Bonner MD at OR [facility] Colon [employer] ENDOSCOPY [id number] 12/26/2026 [id number] / / [id number] Catheter Hemostatic 235cm 2.8mm 11mm Clip St Latexfree - [id number] Implanted:Qty: 1 on 06/08/2024 by Belén Hernadez MD at OR [facility] [employer] ENDOSCOPY [id number] 01/01/2027 [id number] / / [id number] Clip Ultra 360 235cm - [id number] Implanted:Qty: 1 on 06/08/2024 by Belén Hernadez MD at OR [facility] [employer] ENDOS[employer] [id number] 03/06/2027 [id number] / / [id number] Catheter Hemostatic 235cm 2.8mm 11mm Cl[address] Latexfree - [id number] Implanted:Qty: 1 on 06/08/2024 by Belén Hernadez MD at OR [facility] [employer] ENDOSCOPY [id number] 01/30/2027 [id number] / / [id number] Clip Ultra 360 235cm - [id number] Implanted:Qty: 1 on 06/08/2024 by Belén Hernadez MD at OR [facility] [employer] ENDOSCOPY [id number] 12/27/2026 [id number] / / [id number] Catheter Hemostatic 235cm 2.8mm 11mm [address] Latexfree - [id number] Implanted:Qty: 1 on 06/08/2024 by Belén Hernadez MD at OR [facility] [employer] ENDOSCOPY [id number] 01/30/2027 [id number] / / [id number] Clip Ultra 360 235cm - [id number] Implanted:Qty: 1 on 06/08/2024 by Belén Hernadez MD at OR [facility] [employer] ENDOSCOPY [id number] 12/27/2026 [id number] / / [id number] Clip Ultra 360 235cm - [id number] Implanted:Qty: 1 on 06/08/2024 by Belén Hernadez MD at OR [facility] [employer] ENDOSCOPY [id number] 12/26/2026 [id number] / / [id number] Clip Ultra 360 235cm - [id number] Implanted:Qty: 1 on 06/08/2024 by Belén Hernadez MD at OR [facility] [employer] ENDOS[employer] [id number] 12/27/2026 [id number] / / [id number] Clip Hemostatic 18mm Assurance - [id number] Implanted:Qty: 1 on 06/08/2024 by Belén Hernadez MD at OR [facility] [employer]IS [employer] [id number] 01/02/2027 [id number] / / [id number] Catheter Hemostatic 235cm 2.8mm 11mm Cl[address] Latexfree - [id number] Implanted:Qty: 1 on 06/08/2024 by Belén Hernadez MD at OR [facility] [employer] ENDOSCOPY [id number] 01/30/2027 [id number] / / [id number] Catheter Hemostatic 235cm 2.8mm 11mm [address] Latexfree - [id number] Implanted:Qty: 1 on 06/08/2024 by Belén Hernadez MD at OR [facility] [employer] ENDOSCOPY [id number] 01/30/2027 [id number] / / [id number] Clip Hemostatic 11mm Assurance - [id number] Implanted:Qty: 1 on 06/08/2024 by Belén Hernadez MD at OR [facility] [employer] 11/14/2026 [id number] / / [id number] Catheter Hemostatic 235cm 2.8mm 11mm [address] Latexfree - [id number] Implanted:Qty: 1 on 06/08/2024 by Belén Hernadez MD at OR [facility] [employer] ENDOSCOPY [id number] 01/01/2027 [id number] / / [id number] Catheter Hemostatic 235cm 2.8mm 11mm [address] Latexfree - [id number] Implanted:Qty: 1 on 06/08/2024 by Belén Hernadez MD at OR [facility] [employer] ENDOSCOPY [id number] 01/30/2027 [id number] / / [id number] Valve Transcath Resilia 26mm - [id number] - [id number] Implanted:Qty: 1 on 06/19/2024 by Khang Mir MD at [facility]S [facility] [employer] [id number] 09/27/2026 [id number] / [id number] / [id number] documented as of this encounter Visit Diagnoses [...] the patient have Health Care Power of Monument Stonecutter? Yes, not currently available * No Code Date Activated Date Inactivated Comments 05/01/2024 11:50 AM 05/02/2024 9:14 AM This orde r reflects the patients wishes and were consensually agreed upon. Question Answer Comments Discussion of Advance Directives occurred with: Patient Healthcare Agents on File Name Relationship Healthcare Agent [facility] Mattie Branch Adult Child First Alternat e Health Care Agent (per Health Care Power of Monument Stonecutter document) Care Teams Tricot Knitting Machine Operator Relationship Specialty Start Date End Date September, Declan Person MD 226 [place] [address] PCP - General Family Medicine 05/20/23 documented as of this encounter
--- OUTSIDE RECORDS SUMMARY | 2024-07-31 09:04 | External Medical Summary | Summary of Care ---
Author Name Unknown Organization [facility] Address [address] [facility] [facility] [address] Phone [phone] Care Team Providers Care Special Education Superintendent Name Role Phone Declan Dejesus MD Primary Care Provider Encounter Details Date Type Department Care Team (Late st Contact Info) Description 07/17/2024 Orders Only Hematology/Oncology [facility] 200 [facility] [address] Bruna Funk CRNP 400 [facility] [place] [address] Iron deficiency anemia due to chronic blood [...] of right lower leg 06/07/2024 Atherosclerosis of [place] co ronary artery without angina pectoris 05/11/2024 [...] (Sylvia/J&J) 08/19/2020,07/22/2020 Pneumococcal Conjugate Vacci ne, 20-valent (Naphlfu80) 05/20/2023 Pneumococcal Polysaccharide PPV23 (Pneumovax) 03/11/2009,10/11/2008(Deferred: Patient [...] of Assessment Author Yes 06/07/2024 11:53 PM EST Yeny Bowman RN * Do you have difficulty dressing or bathing? (5 years old or older) Answer Date of Assessment Author Yes 06/07/2024 11:53 PM EST Yeny Bowman RN * Because of a physical, mental, [...] Yeny Bowman RN documented in this encounter Plan of Treatment Upcoming Encounters Date Type Department Care Team (Late st Contact Info) Description 07/18/2024 8:30 AM EST Hem/Onc Treatment Hematology/Oncology [address], [address] [phone] Susie, Chair 11 Hem Onc [address] [place] [address] 07/19/2024 2:30 PM EST Cardiac Studies Cardiac Studies, [facility] 132 [facility] [place] [address] 07/24/2024 10:00 AM EDT Nurse Only Ancillary Department, Ashleigh Kamara 226 [facility] [place] [address] Ashleigh, Nurse Annual Wellness [facility] [place] [address] 07/25/2024 1:30 PM EDT Hem/Onc Treatment Hematology/Oncology Treatment, [address] [phone] Susie, Chair 10 Hem Onc [facility] 200 [facility] [place] [address] 07/26/2024 9:00 AM EDT Laboratory Laboratory, [facility] [address] [place] [phone] [place] 132 [facility] [place] [address] 07/26/2024 9:30 AM EDT Office Visit Cardiology, [facility] 132 [facility] [place] [address] Kareen Boyd CRNP 132 [facility] [place] [address] 07/31/2024 10:00 AM EDT Laboratory Laboratory, [place] [facility] 226 [facility] [phone] [facility] 226 [place] [address] 08/01/2024 8:00 AM EDT Hem/Onc Treatment Hematology/Oncology Treatment[address], [place] [phone] Susie, Chair 5 Hem Onc [facility] [address] [place], [place] [address] [address] 08/09/2024 12:30 PM EDT Hem/Onc Treatment Hematology/Oncology [address], [place] [phone] Susie, Chair 1 Hem Onc [address] [address] 08/09/2024 2:30 PM EDT Office Visit Hematology/Oncology [address] [phone] Bruna Funk CRNP [address] [place] [address] 10/09/2024 10:00 AM EDT Cardiac Studies Cardiology, [facility] 132 [facility] [place] [address] [facility] 132 [facility] [place] [address] 10/17/2024 8:00 AM EDT Office Visit [facility], Ashleigh Gallegos 226 [place] [address] Declan Dejesus MD [address] [place] [address] Health Maintenance Due Date Last Done Comments Alpha-1 Antitrypsin 1971 Sigmoidoscopy 1998 Lung Cancer Screening 2003 Fecal Occult Blood Test 01/14/2024 01/14/20, 01/13/2023, 01/15/2022, Additional history exists COVID-19 Vaccine ( season) 2024 04/04/2023, 04/16/2021, 08/19/2020, Additional history exists Adult Wellness Visit 07/19/2024 07/20/2023 Diabetic Foot Exam 07/19/2024 07/20/2023, 0 01/03/2017, 02/17/2015, Additional history exists HbA1c 10/03/2024 04/05/2024, 09/2023, 10/19/2023, Additional history exists Diabetic Eye Exam 12/12/2024 12/13/2023, , 07/13/2023, Additional history exists Albumin/Creatinine Ratio 03/26/20252 024, 01/04/2023, 07/05/2022, Additional history exists Depression [...] this encounter Medical Devices Implanted Type Area Records Custodian Device Identifier Shelf Expiration Date Model / Serial / Lot Iol Mx60 14.0 Implanted:Qty: 1 on 10/19/2019 by Ankit Ny MD at OR [facility] Right: Eye 04/14/2020 MX60 / [id number] / [id number] Implanted:Qty: 1 on 10/30/2019 by Ankit Ny MD at OR [facility] Left: Eye 02/12/2021 MX60 / [id number] / [id number] Clip Ultra 360 235cm - [id number] Implanted:Qty: 1 on 05/02/2024 by Omid Bonner MD at OR [facility] Colon [employer] ENDOSCOPY [id number] 12/26/2026 [id number] / / [id number] Clip Ultra 360 235cm - [id number] Implanted:Qty: 1 on 05/02/2024 by Omid Bonner MD at OR [facility] Colon [employer] ENDOSCOPY [id number] 12/26/2026 [id number] / / [id number] Clip Ultra 360 235cm - [id number] Implanted:Qty: 1 on 05/02/2024 by Omid Bonner MD at OR [facility] Colon [employer] ENDOSCOPY [id number] 12/26/2026 [id number] / / [id number] Catheter Hemostatic 235cm 2.8mm [address]mm [address] Latexfree - [id number] Implanted:Qty: 1 on 06/08/2024 by Belén Hernadez MD at OR [facility] [employer] ENDOS[employer] [id number] 01/01/2027 [id number] / / [id number] Clip Ultra 360 235cm - [id number] Implanted:Qty: 1 on 06/08/2024 by Belén Hernadez MD at OR [facility] [employer] ENDOS[employer] [id number] 03/06/2027 [id number] / / [id number] Catheter Hemostatic 235cm 2.8mm [address]mm [address] Latexfree - [id number] Implanted:Qty: 1 on 06/08/2024 by Belén Hernadez MD at OR [facility] [employer] ENDOSCOPY [id number] 01/30/2027 [id number] / / [id number] Clip Ultra 360 235cm - [id number] Implanted:Qty: 1 on 06/08/2024 by Belén Hernadez MD at OR [facility] [employer] ENDOS[employer] [id number] 12/27/2026 [id number] / / [id number] Catheter Hemostatic 235cm 2.8mm [address]mm [address] Latexfree - [id number] Implanted:Qty: 1 on 06/08/2024 by Belén Hernadez MD at OR [facility] [employer] ENDOS[employer] [id number] 01/30/2027 [id number] / / [id number] Clip Ultra 360 235cm - [id number] Implanted:Qty: 1 on 06/08/2024 by Belén Hernadez MD at OR [facility] [employer] ENDOSCOPY [id number] 12/27/2026 [id number] / / [id number] Clip Ultra 360 235cm - [id number] Implanted:Qty: 1 on 06/08/2024 by Belén Hernadez MD at OR [facility] [employer] ENDOSCOPY [id number] 12/26/2026 [id number] / / [id number] Clip Ultra 360 235cm - [id number] Implanted:Qty: 1 on 06/08/2024 by Belén Hernadez MD at OR [facility] [employer] ENDOS[employer] [id number] 12/27/2026 [id number] / / [id number] Clip Hemostatic 18mm Assurance - [id number] Implanted:Qty: 1 on 06/08/2024 by Belén Hernadez MD at OR [facility] STERIS [employer]ASIA [id number] 01/02/2027 [id number] / / [id number] Catheter Hemostatic 235cm 2.8mm [address]mm [address] Latexfree - [id number] Implanted:Qty: 1 on 06/08/2024 by Belén Hernadez MD at OR [facility] [employer] ENDOSCOPY [id number] 01/30/2027 [id number] / / [id number] Catheter Hemostatic 235cm 2.8mm [address] Latexfree - [id number] Implanted:Qty: 1 on 06/08/2024 by Belén Hernadez MD at OR [facility] [employer] ENDOSCOPY [id number] 01/30/2027 [id number] / / [id number] Clip Hemostatic 11mm Assurance - [id number] Implanted:Qty: 1 on 06/08/2024 by Belén Hernadez MD at OR [facility] [employer] 11/14/2026 [id number] / / [id number] Catheter Hemostatic 235cm 2.8mm [address] Latexfree - [id number] Implanted:Qty: 1 on 06/08/2024 by Belén Hernadez MD at OR [facility] [employer] ENDOS[employer] [id number] 01/01/2027 [id number] / / [id number] Catheter Hemostatic 235cm 2.8mm [address]mm [address] Latexfree - [id number] Implanted:Qty: 1 on 06/08/2024 by Belén Hernadez MD at OR [facility] [employer] ENDOSCOPY [id number] 01/30/2027 [id number] / / [id number] Valve Transcath Resilia 26mm - [id number] - [id number] Implanted:Qty: 1 on 06/19/2024 by Khang Mir MD [place] [facility] [employer] [id number] 09/27/2026 [id number] / [id number] / [id number] documented as of this encounter Procedures Procedure Name Priority Date/Time Associated Diagnosis Comments IRON SCREEN, INCLUDING TIBC Routine 07/16/2024 9:42 AM EST Iron deficiency anemia due to chronic blood loss FERRITIN Routine 07/16/2024 9:42 AM EST Iron deficiency anemia due to chronic blood loss documented in this encounter Results * (ABNORMAL) IRON SCREEN, INCLUDING TIBC (07/16/2024 9:42 AM EST) Iron 22(L) 45 - 176 ug/dL 07/17/2024 11:20 AM EST LAB[facility] Iron Binding Capacity 375 250 - 425 ug/dL 07/17/2024 11:20 AM EST LABORATORY C Transferrin Saturation Percent 6(L) 15 - 55 % 07/17/2024 11:20 AM EST [facility] Blood Venous blood specimen / Unknown Venipuncture / Unknown 07/16/2024 9:42 AM EST 07/16/2024 9:42 AM EST us Bruna HANNA LAB BLOOD ORDERABLES Fi nal Result [facility] [address] [place] [address] * (ABNORMAL) FERRITIN (07/16/2024 9:42 AM EST) Ferritin 24(L) 30 - 400 ng/mL 07/17/2024 11:47 AM EST [facility] Blood Venous blood specimen / Unknown Venipuncture / Unknown 07/16/2024 9:42 AM EST 07/16/2024 9:42 AM EST us Bruna HANNA LAB BLOOD ORDERABLES Fi nal Result [facility] 100 [address] [facility] [place] [address] documented in this encounter Visit Diagnoses Diagnosis Iron deficiency [...] the patient have Health Care Power of Wall And Floor Tiler? Yes, not currently available * No Code Date Activated Date Inactivated Comments 05/01/2024 11:50 AM 05/02/2024 9:14 AM This orde r reflects the patients wishes and were consensually agreed upon. Question Answer Comments Discussion of Advance Directives occurred with: Patient Healthcare Agents on File Name Relationship Healthcare Agent [facility] Communication Mattie Branch Adult Child First Alternat e Health Care Agent (per Health Care Power of Wall And Floor Tiler document) Care Teams Special Education Superintendent Relationship Specialty Start Date End Date September, Declan Person MD [address] [place] [address] PCP - General Family Medicine 05/20/23 documented as of this encounter
--- OUTSIDE RECORDS SUMMARY | 2024-07-31 09:04 | External Medical Summary | Summary of Care ---
Author Name Unknown Organization [facility] Address [address] [place] [facility] [place] [address] Phone [phone] Care Team Providers Care Nurse Wound Name Role Phone Declan Dejesus MD Primary Care Provider [phone] Reason for Visit * Reason Onset Date Comments Follow Up Pt here today fo r his 3 month follow upPt has a concern about a his heart. He has had a heart valve replacement, and two pacemaker surgery. Hospital Follow-Up 07/17/2024 Encounter Details Date Type Department Care Team (Late st Contact Info) Description 07/17/2024 7:40 AM EST [facility] [address] [phone] Declan Dejesus MD [address] [id number] Risk and functional assessment*; Iron deficiency anemia due to chronic blood loss; Hospital discharge follow-up; Need for influenza vaccination; Type 2 diabetes mellitus with hemoglobin A1c goal of less than 7.0% (HCC); Dyslipidemia, goal LDL below 130; HTN, goal below 140/90; S/P TAVR (transcatheter aortic valve replacement); Severe obesity with body mass index (BMI) of 35.0 to 39.9 with serious comorbidity (HCC) Allergies Active Allergy Reactions Criticality Noted Date [...] goal of less than 7.0% ([facility]) Take 1 Tablet by mouth [...] of right lower leg 06/07/2024 Atherosclerosis of twenty-nine palms co ronary artery without angina pectoris 05/11/2024 [...] (Sylvia/J&J) 08/19/2020,07/22/2020 Pneumococcal Conjugate Vacci ne, 20-valent (Loptfqs06) 05/20/2023 Pneumococcal Polysaccharide PPV23 (Pneumovax) 03/11/2009,10/11/2008(Deferred: Patient [...] Sign Reading Time Taken Comments Blood Pressure 126/56 07/17/2024 7:36 AM EST Pulse 60 07/17/2024 7:36 AM EST Temperature 36.7 °C (98 °F) 07/17/2024 7:36 AM EST Respiratory Rate 16 07/17/2024 7:36 AM EST Oxygen Saturation 96% 07/17/2024 7:36 AM EST Inhaled Oxygen Concentration - - Weight 107.7 kg (237 lb 6.4 oz) 07/17/2024 7:36 AM EST Height - - Body Mass Index 36.1 06/29/2024 2:28 PM EST documented in this encounter Functional Status * [...] this encounter Patient Instructions * Patient Instructions* Mai Davalos LPN - 07/17/2024 7:39 AM EST Patient Instructions - Fall Prevention (This education is for all patients over 65 regardless of symptoms) Remember to take your current medications as prescribed. In order to prevent falls, you are encouraged to: Exercise Utilize assistive/adaptive devices Avoid multifocal lenses when walking Avoid hazards in home Maintain a regular toileting schedule Any questions please contact our office. Preventing Falls in the Home (This education is for all patients over 65 regardless of symptoms) As you get older, falls are more likely. That’s because your reaction time slows. Your muscles and joints may also get stiffer, making them less flexible. Illness, medications, and vision changes can also affect your balance. A fall could leave you unable to live on your own. To make your home safer, follow these tips: Floors Put nonskid pads under area rugs Remove throw rugs Replace worn floor coverings Tack carpets firmly to each step on carpeted stairs. Put nonskid strips on the edges of uncarpeted stairs Keep floors and stairs free of clutter and cords Arrange furniture so there are clear pathways Clean up any spills right away Bathrooms Install grab bars in the tub or shower Apply nonskid strips or put a nonskid rubber mat in the tub or shower Sit on a bath chair to bathe Use bathmats with nonskid backing Lighting Keep a flashlight in each room Put a nightlight along the pathway between the bedroom and the bathroom [employer] Patient Education Copyright© 2008 - 2010 [employer]ail except where otherwise noted Preventing Falls: Exercises to Improve Balance, Flexibility, Strength, and Staying Power (This education is for all patients over 65 regardless of symptoms) Certain types of exercises may help make you less likely to fall. Try the ones below. Or do other exercises that your healthcare provider suggests. Depending on your health, you may need to start slowly. Don’t let that stop you. Even small amounts of exercise can help you. Be sure to talk to yourhealthcare provider before starting any exercise program. Improve Balance Many types of exercise can help improve balance. Felipe chi and yoga are good examples. Here’s another one to try. You can do it anytime and almost anywhere. Stand next to a counter or solid support. Push yourself up onto your tiptoes. Hold for 5 seconds. If you start to lose your balance, hold on to the counter. Rest and repeat 5 times. Work up to holding for 20 to 30 seconds, if you can. Increase Flexibility Being more flexible makes it easier for you to move around safely. Try exercises like the seated hamstring stretch. Sit in a chair and put one foot on a stool. Straighten your leg and reach with both hands down either side of your leg. Reach as far down your leg as you can. Hold for about 20 seconds. Go back to the starting position. Then repeat 5 times. Switch legs. Build Strength “Resistance” exercises help build strength. You can do them without equipment. Or you can use weights, elastic bands, or special machines. One such exercise is called the biceps curl. You can hold a 1 pound weight or even a can of soup. Do this exercise at least 3 times a week. Strive for everyday. Sit up straight in a chair. Keep your elbow close to your body and your wrist straight. Bend your arm, moving your hand up to your shoulder. Then slowly lower your arm. Repeat 5 times. Switch to the other arm. Build Your Staying Power “Aerobic” exercises make your heart and lungs stronger so you can keep moving longer. Walking and swimming are two of the best types of exercises you can do. Using a stationary bike is great, too. Find an aerobic exercise that you enjoy. Start slowly and build up. Even 5 minutes is helpful. Aimfor a goal of 30 minutes, at least 3 times a week. You don’t have to do 30 minutes in one session. Break it up and walk a little throughout the day. More Helpful Tips Start easy. Slowly work up to doing more. Talk with your healthcare provider about the best exercises for you. Call senior centers or health clubs about exercise programs. If needed, have a family member watch you walk every so often to check your stability. Exercise with a friend. Choose an activity you both enjoy. Try exercises that you can do anytime, anywhere. Here are two examples. Have someone with you when you first try these: Practice walking by placing one foot right in front of the other. Stand up and sit down 10 times. Repeat this throughout the day. Sohail Patient Education Copyright© 2008 - 2010 Sohail except where otherwise noted. Preventing Falls: Moving Safely Using a Cane or Walker (This education is for all patients over 65 regardless of symptoms) Keep the cane away from your feet so you don’t trip. A walking aid, such as a cane or walker, can help you stay more independent and avoid falls. Remember to keep your walking aid within easy reach when you’re in a chair or in bed. And learn how to use it safely so you don’t injure yourself. Using a Cane If you have a stronger side, hold the cane on that side. Get your balance. Move the cane and your weaker leg forward. Support your weight on both the cane and your weaker side. Step with your stronger leg. Start again from step 1. If you’re using a folding walker, be sure you know how to lock it open. Check that it’s locked open before each use. Using a Walker Roll the walker (or lift it, if you’re using one without wheels) forward about 12 inches. Step forward with your weaker leg first. Use the walker to help keep your balance. Bring your other foot forward to the center of the walker. Start again from step 1. Helpful Tips Check with your healthcare provider about the right walking aid to use. Ask about a walker with a seat attached. Check the tips of your cane or walker to make sure they have nonskid covers. Move slowly from room to room. Don’t meade. Sit down to get dressed. Use a javon pack or backpack to keep your hands free. Get help for jobs that mean climbing, even on a stepstool. [employer]oh[employer] Patient Education Copyright© 2008 - 2010 Sohail except where otherwise noted. Treating Urinary Incontinence in Men (This education is for all patients over 65 regardless of symptoms) You can't always control the release of urine. You may leak urine. Or you may not be able to hold your urine until you can get to a bathroom. This is called urinary incontinence. The problem can be managed. Talk to your doctor about your treatment options. Taking Medications Prescription medications may help you. They may: Help the sphincter to work better. (This is the muscle that closes to keep urine from leaking out of the bladder.) Help stop the bladder from walt too often to push urine out. Help the bladder muscles contract with more force. Help relax the sphincter muscle and allow urine to flow more freely. Making Changes to Your Routine Certain changes in your daily routine may help. These include: Avoiding caffeine and alcohol. Using timed voiding. This is following a schedule for drinking fluids and urinating. Doing Kegel exercises daily. These exercises involve tightening the muscles in your sphincter and around your bladder to help strengthen them. Your doctor can explain how to do them. Using a Catheter A catheter is a narrow tube that is inserted through the urethra into the bladder. It drains urine.A condom catheter covers the penis. It channels urine into a collection bag. It is worn most of thetime. Intermittent catheterization means inserting a catheter to drain the bladder, then removing it. This is done on a regular schedule. Having Surgery If other options don't work, surgery may be recommended. If surgery is an option, your healthcare provider can discuss it with you and explain its risks and benefits. Healing After Prostate Surgery Surgery on the prostate gland can cause incontinence. Most often, the incontinence is only for a short time. It clears up when healing is complete. Very rarely, prostate surgery can result in permanent incontinence. documented in this encounter Progress Notes * Declan Dejesus MD - 07/17/2024 8:23 AM EST Images from the original note were not included. Subjective Rafael Catnu is a 69 year old male that presents for Follow Up (Pt here today for his 3 month follow up/Pt has a concern about a his heart. He has had a heart valve replacement, and two pacemaker surgery. ) and Hospital Follow-Up History of Present Illness Rafael Cantu is a 69 year old male with severe aortic stenosis status post TAVR and dual chamber pacemaker who presents for hospital follow-up. He was admitted to [facility] from 07/04/2024-07/07/2024 following a syncopal episode. His pacer was interrogated showing sustained ventricular tachycardia. Went for ICD placement. Was started on amiodarone and metoprolol succinate. Received a single unit of pRBCs for HGB of 7.5 with goal above 8. Was discharged to follow up with PCP and cardiology. He experiences significant fatigue, which he attributes to recent medical procedures and low blood count. He underwent a transcatheter aortic valve replacement (TAVR) on June 19, 2024, and a dual chamber pacemaker implantation on July 02, 2024. Following the pacemaker implantation, he had a syncopal episode on July 03, 2024, and was admitted to [facility] on July 04, 2024, where sustained ventricular tachycardia was detected. An ICD was subsequently implanted. He is currently on amiodarone 200 mg three times daily, which will be reduced to 200 mg daily starting July 21, 2024. He is also taking metoprolol succinate 50 mg once daily. He has a history of iron deficiency anemia and supplemental iron was discontinued due to gastrointestinal upset. His hemoglobin was 8.2 at the hospital and has increased to 8.6 on 07/16/2024. Iron of 32 on 06/15/2024. He has type 2 diabetes with recent glucose readings of 168 mg/dL and 228 mg/dL. His glucose levels tend to be higher in the morning. He has experienced some swelling in his right leg, which he attributes to a previous knee replacement. His right leg tends to swell more than the left. He is prescribed lasix to be used PRN for leg swelling or weight gain. Weight has been largely stable and he has not been taking the medication. He has a history of obesity, benign prostatic hyperplasia (BPH), pulmonary emphysema, hypertension,and dyslipidemia. Objective Vitals: 07/17/24 0736 Temp: 98 °F (36.7 °C) Pulse: 60 Resp: 16 SpO2: 96% BP: 126/56 Physical Exam EXTREMITIES: Mild edema on right leg, minimal on left leg. Physical Exam Vitals reviewed. Constitutional: General: He is not in acute distress. Cardiovascular: Rate and Rhythm: Normal rate and regular rhythm. Heart sounds: No murmur heard. Pulmonary: Effort: Pulmonary effort is normal. No respiratory distress. Breath sounds: Normal breath sounds. No wheezing. Musculoskeletal: Comments: Trace edema bilaterally, right greater than left. Neurological: General: No focal deficit present. Mental Status: He is alert. I have reviewed the following results: Results LABS Hemoglobin: 8.6 g/dL (07/16/2024) Hemoglobin: 8.2 g/dL (07/04/2024) DIAGNOSTIC Echocardiogram: Valve functioning properly (06/19/2024) Pacemaker interrogation: Sustained ventricular tachycardia (07/04/2024) Assessment and Plan Assessment & Plan Ventricular tachycardia Managed with ICD implantation and amiodarone to prevent recurrence and reduce ICD intervention. - Continue amiodarone 200 mg three times daily until July 21, then reduce to 200 mg daily. - Follow up with cardiology on July 26. High degree AV block status post pacemaker and ICD implantation Managed with dual chamber pacemaker and ICD to prevent syncope and manage arrhythmias. - Monitor for symptoms of dizziness or syncope. - Follow up with cardiology on July 26. Aortic stenosis status post TAVR Post-TAVR with good initial valve function. Awaiting follow-up echocardiogram. - Order echocardiogram on July 19 to assess valve function. - Follow up with cardiology on July 26. Iron deficiency anemia Chronic anemia likely due to GI bleeding and surgeries. Oral iron stopped due to GI upset. Considering IV iron. - Contact hematology/oncology to discuss possibility of IV iron infusions. - Monitor hemoglobin levels and iron stores. - Encourage dietary intake of iron-rich foods. Type 2 diabetes mellitus Glucose levels range from 168 to 228 mg/dL. A1c unreliable due to anemia. Focus on maintaining glucose below 200 mg/dL. - Monitor blood glucose levels, aiming for values below 200 mg/dL. - Reassess diabetes management after stabilization of other health issues. Hypertension Well-controlled with metoprolol succinate. No need for daily monitoring unless symptomatic. - Continue metoprolol succinate 50 mg once daily. - Monitor blood pressure if symptomatic. Obesity Noted in medical history. Dyslipidemia Noted in medical history. Pulmonary emphysema Noted in medical history. Benign prostatic hyperplasia (BPH) Noted in medical history. Goals of Care Discussed resuscitation preferences and quality of life concerns. Low likelihood of successful resuscitation with good outcomes. - Consider discussing advanced directives and resuscitation preferences in future visits. Follow-up Plans discussed for continuity of care. - Cancel appointment on July 30 and reschedule for three months later. - Keep wellness appointment on July 24. - Administer flu shot during today's visit. Risk and functional assessment (Primary) Iron deficiency anemia due to chronic blood loss Hospital discharge follow-up - DISCH MED RECON CUR MED LIS Need for influenza vaccination - INFLUENZA VAC., TRIVALENT, HD, PF, 65 AND ABOVE, 0.5 ML IM (FLUZONE HD) Type 2 diabetes mellitus with hemoglobin A1c goal of less than 7.0% (HCC) Dyslipidemia, goal LDL below 130 HTN, goal below 140/90 S/P TAVR (transcatheter aortic valve replacement) Severe obesity with body mass index (BMI) of 35.0 to 39.9 with serious comorbidity (HCC) Wrap-Up Follow Up: Return in about 3 months (around 10/17/2024) for 3 month return. | For: 3 month return | Check-out note: Please cancel appointment on 07/30/2024. Time: I spent a total of 40-54 minutes (exact time 45 mins) on the date of service in preparation, delivery, and documentation of the care provided to Rafael Cantu excluding any time spent in the performance of separately billed services. Text in this note was generated using an ambient documentation service. I discussed the use of a device to record and summarize our discussion today. All persons present during the encounter consented to its use. documented in this encounter Nursing Notes * Mai Davalos LPN - 07/17/2024 7:29 AM EST Chief Complaint Patient presents with Follow Up Pt here today for his 3 month follow up Pt has a concern about a his heart. He has had a heart valve replacement, and two pacemaker surgery. documented in this encounter Plan of Treatment Upcoming Encounters Date Type Department Care Team (Late st Contact Info) Description 07/19/2024 2:30 PM EST Cardiac Studies Cardiac Studies, [facility] [address] [address] 07/24/2024 10:00 AM EDT Nurse Only Ancillary Department, [facility] [address] [facility] [place] [address] [facility], Nurse Annual Wellness [address] [place] [place] [address] 07/26/2024 9:00 AM EDT Laboratory Laboratory, [facility] [address] [facility] [place] [phone] [facility] [address] [address] 07/26/2024 9:30 AM EDT Office Visit Cardiology, [facility] [address] [address] Kareen Boyd CRNP [address] [address] 07/31/2024 10:00 AM EDT Laboratory Laboratory, [facility] [address] [place] [phone] [facility] [address] [place] [address] 08/09/2024 2:30 PM EDT Office Visit Hematology/Oncology [facility] [address] [place] [place] [phone] Bruna Funk CRNP [address] [facility] [address] [address] 10/09/2024 10:00 AM EDT Cardiac Studies Cardiology, [facility] [address] [address] [facility] [address] [address] 10/17/2024 8:00 AM EDT Office Visit Family Practice, [place] [facility] [address] [phone] Declan Dejesus MD [address] [place] [address] Health Maintenance Due Date Last Done Comments [...] this encounter Medical Devices Implanted Type Area Jail Guard Device Identifier Shelf Expiration Date Model / Serial / Lot Iol Mx60 14.0 Implanted:Qty: 1 on 10/19/2019 by Ankit Ny MD at OR [facility] Right: Eye 04/14/2020 MX60 / [id number] / [id number] Implanted:Qty: 1 on 10/30/2019 by Ankit Ny MD at OR [facility] Left: Eye 02/12/2021 MX60 / [id number] / [id number] Clip Ultra 360 235cm - [id number] Implanted:Qty: 1 on 05/02/2024 by Omid Bonner MD at OR [facility] Colon [employer] ENDOSCOPY [id number] 12/26/2026 [id number] / / [id number] Clip Ultra 360 235cm - [id number] Implanted:Qty: 1 on 05/02/2024 by Omid Bonner MD at OR [facility] Colon [employer] ENDOSCOPY [id number] 12/26/2026 [id number] / / [id number] Clip Ultra 360 235cm - [id number] Implanted:Qty: 1 on 05/02/2024 by Omid Bonner MD at OR [facility] Colon [employer] ENDOSCOPY [id number] 12/26/2026 [id number] / / [id number] Catheter Hemostatic 235cm 2.8mm [address] Latexfree - [id number] Implanted:Qty: 1 on 06/08/2024 by Belén Hernadez MD at OR [facility] [employer] ENDOSCOPY [id number] 01/01/2027 [id number] / / [id number] Clip Ultra 360 235cm - [id number] Implanted:Qty: 1 on 06/08/2024 by Belén Hernadez MD at OR [facility] [employer] ENDOSCOPY [id number] 03/06/2027 [id number] / / [id number] Catheter Hemostatic 235cm 2.8mm [address] Latexfree - [id number] Implanted:Qty: 1 on 06/08/2024 by Belén Hernadez MD at OR [facility] [employer] ENDOSCOPY [id number] 01/30/2027 [id number] / / [id number] Clip Ultra 360 235cm - [id number] Implanted:Qty: 1 on 06/08/2024 by Belén Herandez MD at OR [facility] [employer] ENDOS[employer] [id number] 12/27/2026 [id number] / / [id number] Catheter Hemostatic 235cm 2.8mm [address] Latexfree - [id number] Implanted:Qty: 1 on 06/08/2024 by Belén Hernadez MD at OR [facility] [employer] ENDOSCOPY [id number] 01/30/2027 [id number] / / [id number] Clip Ultra 360 235cm - [id number] Implanted:Qty: 1 on 06/08/2024 by Belén Hernadez MD at OR [facility] [employer] ENDOSCOPY [id number] 12/27/2026 [id number] / / [id number] Clip Ultra 360 235cm - [id number] Implanted:Qty: 1 on 06/08/2024 by Belén Hernadez MD at OR [facility] [employer] ENDOSCOPY [id number] 12/26/2026 [id number] / / [id number] Clip Ultra 360 235cm - [id number] Implanted:Qty: 1 on 06/08/2024 by Belén Hernadez MD at OR [facility] [employer] ENDOSCOPY [id number] 12/27/2026 [id number] / / [id number] Clip Hemostatic 18mm Assurance - [id number] Implanted:Qty: 1 on 06/08/2024 by Belén Hernadez MD at OR [facility] [employer]IS [employer] [id number] 01/02/2027 [id number] / / [id number] Catheter Hemostatic 235cm 2.8mm [address] Latexfree - [id number] Implanted:Qty: 1 on 06/08/2024 by Belén Hernadez MD at OR [facility] [employer] ENDOS[employer] [id number] 01/30/2027 [id number] / / [id number] Catheter Hemostatic 235cm 2.8mm [address] Latexfree - [id number] Implanted:Qty: 1 on 06/08/2024 by Belén Hernadez MD at OR [facility] [employer] ENDOSCOPY [id number] 01/30/2027 [id number] / / [id number] Clip Hemostatic 11mm Assurance - [id number] Implanted:Qty: 1 on 06/08/2024 by Belén Hernadez MD at OR [facility] [employer] 11/14/2026 [id number] / / [id number] Catheter Hemostatic 235cm 2.8mm [address] Latexfree - [id number] Implanted:Qty: 1 on 06/08/2024 by Belén Hernadez MD at OR [facility] [employer] ENDOSCOPY [id number] 01/01/2027 [id number] / / [id number] Catheter Hemostatic 235cm 2.8mm [address] Latexfree - [id number] Implanted:Qty: 1 on 06/08/2024 by Belén Hernadez MD at OR [facility] [employer] ENDOS[employer] [id number] 01/30/2027 [id number] / / [id number] Valve Transcath Resilia 26mm - [id number] - [id number] Implanted:Qty: 1 on 06/19/2024 by Khang Mir MD at [facility] [id number] 09/27/2026 [id number] / [id number] / [id number] documented as of this encounter Visit Diagnoses Diagnosis Risk and functional assessment- Primary Screening for unspecified condition Iron deficiency anemia due to chronic blood loss Iron deficiency anemia secondary to blood loss (chronic) Hospital discharge follow-up Other follow-up examination Need for influenza vaccination Need for prophylactic vaccination and inoculation against influenza Type 2 diabetes mellitus with hemoglobin A1c goal of less than 7.0% (HCC) Dyslipidemia, goal LDL below 130 Other and unspecified hyperlipidemia HTN, goal below 140/90 Unspecified essential hypertension S/P TAVR (transcatheter aortic valve replacement) Heart valve replaced by other means Severe obesity with body mass index (BMI) of 35.0 to 39.9 with serious comorbidity (HCC) documented in this encounter Advance Directives * [...] the patient have Health Care Power of Aviation Safety Officer? Yes, not currently available * No Code Date Activated Date Inactivated Comments 05/01/2024 11:50 AM 05/02/2024 9:14 AM This orde r reflects the patients wishes and were consensually agreed upon. Question Answer Comments Discussion of Advance Directives occurred with: Patient Healthcare Agents on File Name Relationship Healthcare Agent [facility] Communication Mattie Branch Adult Child First Alternat e Health Care Agent (per Health Care Power of Aviation Safety Officer document) Care Teams Nurse Wound Relationship Specialty Start Date End Date September, Declan Person MD [address] [address] PCP - General Family Medicine 05/20/23 documented as of this encounter"
--- OUTSIDE RECORDS SUMMARY | 2024-07-31 09:04 | External Medical Summary | Summary of Care ---
Author Name Unknown Organization [facility] Address [address] [place] [address] Phone [phone] Care Team Providers Care Electrical Technician Instructor Name Role Phone Declan Dejesus MD Primary Care Provider [phone] Encounter Details Date Type Department Care Team (Late st Contact Info) Description 07/16/2024 2:00 PM EST Scheduled Telephone Care Coordination and Integration [address], [place] [id number] [facility] [address], [place] [id number] Allergies Active Allergy Reactions Criticality Noted Date [...] of right lower leg 06/07/2024 Atherosclerosis of [place] co ronary artery without angina pectoris 05/11/2024 [...] (Sylvia/J&J) 08/19/2020,07/22/2020 Pneumococcal Conjugate Vacci ne, 20-valent (Tmpqagg17) 05/20/2023 Pneumococcal Polysaccharide PPV23 (Pneumovax) 03/11/2009,10/11/2008(Deferred: Patient [...] Description 07/17/2024 7:40 AM EST Office Visit Family [facility] [place] [address] [place] [phone] SeptemberDeclan MD [address] [facility] [place] [address] 07/19/2024 2:30 PM EST Cardiac Studies Cardiac Studies, [facility] [address] [place] [address] 07/24/2024 10:00 AM EDT Nurse Only Ancillary Department, Ashleigh Dilllissa Kamara 226 [facility] [place] [phone] Ashleigh, Nurse Annual Wellness 226 [facility] [place] [address] 07/26/2024 9:00 AM EDT Laboratory Laboratory, [facility] 132 [facility] [place] [address] [facility] 132 [facility] [place] [address] 07/26/2024 9:30 AM EDT Office Visit Cardiology, [facility] [address] [address] Kareen Boyd CRNP 132 [facility] [place] [address] 07/30/2024 12:40 PM EDT Office Visit Family Practice, Ashleigh Gallegos [address] [place] [address] SeptemberDeclan MD [address] [address] 07/31/2024 10:00 AM EDT Laboratory Laboratory, Ashleigh Kamara [address] [place] [phone] [facility] [address] [place] [address] 08/09/2024 2:30 PM EDT Office Visit Hematology/Oncology [facility] [address] [facility] [phone] Bruna Funk CRNP [address] [place] [address] [place] [address] 10/09/2024 10:00 AM EDT Cardiac Studies Cardiology, [facility] 132 [facility] [place] [address] [facility] 132 [place] [address] Health Maintenance Due Date Last Done Comments [...] this encounter Medical Devices Implanted Type Area City Letter Carrier Device Identifier Shelf Expiration Date Model / Serial / Lot Iol Mx60 14.0 Implanted:Qty: 1 on 10/19/2019 by Ankit Ny MD at OR [facility] Right: Eye 04/14/2020 MX60 / [id number] / [id number] Implanted:Qty: 1 on 10/30/2019 by Ankit Ny MD at OR [facility] Left: Eye 02/12/2021 MX60 / [id number] / [id number] Clip Ultra 360 235cm - [id number] Implanted:Qty: 1 on 05/02/2024 by Omid Bonner MD at OR [facility] Colon [employer] ENDOSCOPY [id number] 12/26/2026 [id number] / / [id number] Clip Ultra 360 235cm - [id number] Implanted:Qty: 1 on 05/02/2024 by Omid Bonner MD at OR [facility] Colon [employer] ENDOSCOPY [id number] 12/26/2026 [id number] / / [id number] Clip Ultra 360 235cm - [id number] Implanted:Qty: 1 on 05/02/2024 by Omid Bonner MD at OR [facility] Colon [employer] ENDOSCOPY [id number] 12/26/2026 [id number] / / [id number] Catheter Hemostatic 235cm 2.8mm 11mm Clip [address] Latexfree - [id number] Implanted:Qty: 1 on 06/08/2024 by Belén Hernadez MD at OR [facility] [employer] ENDOSCOPY [id number] 01/01/2027 [id number] / / [id number] Clip Ultra 360 235cm - [id number] Implanted:Qty: 1 on 06/08/2024 by Belén Hernadez MD at OR [facility] [employer] ENDOSCOPY [id number] 03/06/2027 [id number] / / [id number] Catheter Hemostatic 235cm 2.8mm 11mm [address] Latexfree - [id number] Implanted:Qty: 1 on 06/08/2024 by Belén Hernadez MD at OR [facility] [employer] ENDOSCOPY [id number] 01/30/2027 [id number] / / [id number] Clip Ultra 360 235cm - [id number] Implanted:Qty: 1 on 06/08/2024 by Belén Hernadez MD at OR [facility] [employer] ENDOSCOPY [id number] 12/27/2026 [id number] / / [id number] Catheter Hemostatic 235cm 2.8mm [address]mm [address] Latexfree - [id number] Implanted:Qty: 1 on 06/08/2024 by Belén Hernadez MD at OR [facility] [employer] ENDOSCOPY [id number] 01/30/2027 [id number] / / [id number] Clip Ultra 360 235cm - [id number] Implanted:Qty: 1 on 06/08/2024 by Belén Hernadez MD at OR [facility] [employer] ENDOSCOPY [id number] 12/27/2026 [id number] / / [id number] Clip Ultra 360 235cm - [id number] Implanted:Qty: 1 on 06/08/2024 by Belén Hernadez MD at OR [facility] [employer] ENDOSCOPY [id number] 12/26/2026 [id number] / / [id number] Clip Ultra 360 235cm - [id number] Implanted:Qty: 1 on 06/08/2024 by Belén Hernadez MD at OR [facility] [employer] ENDOSCOPY [id number] 12/27/2026 [id number] / / [id number] Clip Hemostatic 18mm Assurance - [id number] Implanted:Qty: 1 on 06/08/2024 by Belén Hernadez MD at OR [facility] [employer] [id number] 01/02/2027 [id number] / [id number] Catheter Hemostatic 235cm 2.8mm 11mm [address] Latexfree - [id number] Implanted:Qty: 1 on 06/08/2024 by Belén Hernadez MD at OR [facility] [employer] ENDOS[employer] [id number] 01/30/2027 [id number] / / [id number] Catheter Hemostatic 235cm 2.8mm 11mm [address] Latexfree - [id number] Implanted:Qty: 1 on 06/08/2024 by Belén Hernadez MD at OR [facility] [employer] ENDOSCOPY [id number] 01/30/2027 [id number] / / [id number] Clip Hemostatic 11mm Assurance - [id number] Implanted:Qty: 1 on 06/08/2024 by Belén Hernadez MD at OR [facility] [employer] 11/14/2026 [id number] / / [id number] Catheter Hemostatic 235cm 2.8mm [address]mm [address] Latexfree - [id number] Implanted:Qty: 1 on 06/08/2024 by Belén Hernadez MD at OR [facility] [employer] ENDOSCOPY [id number] 01/01/2027 [id number] / / [id number] Catheter Hemostatic 235cm 2.8mm 11mm [address] Latexfree - [id number] Implanted:Qty: 1 on 06/08/2024 by Belén Hernadez MD at OR [facility] [employer] ENDOS[employer] [id number] 01/30/2027 [id number] / / [id number] Valve Transcath Resilia 26mm - [id number] - [id number] Implanted:Qty: 1 on 06/19/2024 by Khang Mir MD at [facility] [employer] [id number] 09/27/2026 [id number] / [id number] / [id number] documented as of this encounter Advance Directives [...] the patient have Health Care Power of Marine Equipment Preservation Inspector? Yes, not currently available * No Code Date Activated Date Inactivated Comments 05/01/2024 11:50 AM 05/02/2024 9:14 AM This orde r reflects the patients wishes and were consensually agreed upon. Question Answer Comments Discussion of Advance Directives occurred with: Patient Healthcare Agents on File Name Relationship Healthcare Agent [facility] Communication Mattie Branch Adult Child First Alternat e Health Care Agent (per Health Care Power of Marine Equipment Preservation Inspector document) Care Teams Electrical Technician Instructor Relationship Specialty Start Date End Date September, Declan Person MD [address] [place] [address] PCP - General Family Medicine 05/20/23 documented as of this encounter
--- OUTSIDE RECORDS SUMMARY | 2024-07-31 09:05 | External Medical Summary | Summary of Care ---
Author Name Unknown Organization [facility] Address [address] [facility] [address] Phone [phone] Care Team Providers Care Head Mechanic Name Role Phone Declan Dejesus MD Primary Care Provider [phone] Reason for Visit * Reason Comments Defibrillator Clinic Wound check Encounter Details Date Type Department Care Team (Latest Contact Info) Description 07/12/2024 10:00 AM EST Cardiac Studies Cardiology, [facility] [address] [place], [place] [phone] [place], Pacer [facility] [address] [place] [address] LBBB (left bundle branch block)*; Mobitz type 2 second degree AV block; Intermittent complete atrioventricular block (HCC); Presence of automatic cardioverter/defibrillat or (AICD) Allergies Active Allergy Reactions Criticality Noted Date Comments Empagliflozin 10/06/2020 Fungal infection, urinary frequency Lisinopril Cough Polyethylene Glycol Other (Please comment) Low 04/26/2024 Severe gas Nickel Rash 09/13/2011 Tetanus Toxoids Rash 09/13/2011 documented as of this encounter (statuses as of 07/12/2024) Medications MULTI VITAMIN MENS PO TABS one [...] as of this encounter (statuses as of 07/12/2024) Active Problems Problem Noted Date Diagnosed Date Glaucoma 06/26/2024 Pulmonary emphysema 06/26/2024 S/P TAVR (transcatheter aortic valve replacement ) 06/20/2024 History of arteriovenous malformation (AVM) 05/17 Edema of right lower leg 06/07/2024 Atherosclerosis of [place] co ronary artery without angina pectoris 05/11/2024 [...] as of this encounter (statuses as of 07/12/2024) Resolved Problems Problem Noted Date Diagnosed Date Resolved Date Primary open-angle glaucoma, right eye, moderate stage 10/16/2020 08/15/2023 Overview (08/15/2023): Noted on pl as OU moderate Glaucoma 08/27/2013 06/07/2022 Overview (06/07/2022): More specific dx on pl HTN, goal below 140/80 07/03/201210/29 Overview: Per HTN Protocol documented as of this encounter (statuses as of 07/12/2024) Immunizations Name Administration Dates Next Due COVID-19 mRNA, LNP-s, No Pre serve, 2-Dose Series (Moderna) 08/19/2020,07/22/2020 COVID-19, MRNA-LNP, PF, 50 M CG/0.5 mL, 12 YRS AND ABOVE, IM (MODERNA-Spikevax) 04/04/2023 COVID-19, mRNA, LNP-s, PF, B ooster, 100mcg/0.5mg (Moderna) 04/16/2021 Covid-19 Ad26, Single Dose (Sylvia/J&J) 08/19/2020,07/22/2020 Pneumococcal Conjugate Vacci ne, 20-valent (Oommdfu40) 05/20/2023 Pneumococcal Polysaccharide PPV23 (Pneumovax) 03/11/2009,10/11/2008(Deferred: Patient [...] documented in this encounter Progress Notes * Mattie Johnson, ORIN - 07/12/2024 10:13 AM EST Patient and implanted device were evaluated today in the [facility]. Providers please see scanned report in the Scans tab. Primaseal dressing removed. Left pectoral device pocket appears to be healing. No drainage is noted. Incision edges are in approximation. No ecchymosis is noted. Area is soft to palpation. Area cleansed with chlora prep. After dry Sure prep applied to surrounding skin avoiding incision. No recorded events . The below education was provided along with the [facility] booklet. Please inspect your incision every day. You should not have any drainage, redness, open areas or scabs. Report any changes to the Device Clinic. You may shower and cleanse the area with antibacterial soap and pat dry, do not allow shower spray to hit incision directly Do not raise your elbow on the incision side above shoulder level in a repetitive manner.-- This gives the device lead wires time to attach securely inside your heart. No lifting anything over 10 pounds Avoid dental procedures for 6 months - call if there is a dental emergency. Please be sure your diet is rich in fruits, vegetables, and healthy protein to promote proper healing. You can supplement with Boost or Ensure protein drinks. Carry an ID card that contains information about your pacemaker. You can show this card if your pacemaker sets off a metal detector. You should also show it to avoid screening with a hand-held security wand. Keep your cell phone away from your pacemaker. Don't carry the phone in your shirt pocket, even when it's turned off. Avoid strong magnets. Examples are those used in MRIs or in hand-held security wands. Avoid strong electrical marie. Examples are those made by radio transmitting towers, “ham” radios, and heavy-duty electrical equipment. Avoid leaning over the open hopkins of a running car. A running engine creates an electrical field. documented in this encounter Plan of Treatment Upcoming Encounters Date Type Department Care Team (Late st Contact Info) Description 07/17/2024 7:40 AM EST [facility] [place] [facility] [address] [facility] [place] [phone] SeptemberDeclan MD 226 [facility] [place] [address] 07/19/2024 2:30 PM EST Cardiac Studies Cardiac Studies, [facility] 132 [facility] [place] [address] 07/24/2024 10:00 AM EDT Nurse Only Ancillary Department, [place] 226 [facility] [place] [address] Ashleigh, Nurse Annual Wellness 226 [facility] [place] [address] 07/26/2024 9:00 AM EDT Laboratory Laboratory, [facility] 132 [facility] [place] [address] [facility] 132 [facility] [place] [address] 07/26/2024 9:30 AM EDT Office Visit Cardiology, [facility] 132 [facility] [place] [address] Kareen Boyd CRNP 132 [facility] [place] [address] 07/30/2024 12:40 PM EDT [facility] [place] Gallegos [address] [address] Declan Dejesus MD [address] [place] [address] 07/31/2024 10:00 AM EDT Laboratory Laboratory, Ashleigh Kamara [address] [place] [address] [facility] [address] [place] [address] 08/09/2024 2:30 PM EDT Office Visit Hematology/Oncology [facility] 200 [place] [address] Bruna Funk [facility]NP [facility] [address] 10/09/2024 10:00 AM EDT Cardiac Studies Cardiology, [facility] 132 [facility] [phone] [place], Pacer Clinic [facility] 132 [facility] [address] Scheduled Orders Name Type Priority Associated Diagnoses Orde r Schedule POSTOP F-UP VISIT IN GLOBAL Procedures Routine LBBB (left bundle branch block) Mobitz type 2 second degree AV block Intermittent complete atrioventricular block (HCC) Presence of automatic cardioverter/defibrillator (AICD) Ordered: 07/12/2024 Health Maintenance Due Date Last Done Comments [...] Depression Screening 04/10/2025 04/10/2024 B-12 06/08/2025 06/08/2024, 120 06/2023, 07/20/2023 O2 ASSESSMENT COMPLETED IN PAST [...] this encounter Medical Devices Implanted Type Area Offline Cutter Device Identifier Shelf Expiration Date Model / Serial / Lot Iol Mx60 14.0 Implanted:Qty: 1 on 10/19/2019 by Ankit Ny MD at OR [facility] Right: Eye 04/14/2020 MX60 / [id number] / Mx60 Implanted:Qty: 1 on 10/30/2019 by Ankit Ny MD at OR [facility] Left: Eye 02/12/2021 MX60 / [id number] / [id number] Clip Ultra 360 235cm - [id number] Implanted:Qty: 1 on 05/02/2024 by Omid Bonner MD at OR [facility] Colon [employer] ENDOSCOPY [id number] 12/26/2026 [id number] / / [id number] Clip Ultra 360 235cm - [id number] Implanted:Qty: 1 on 05/02/2024 by Omid Bonner MD at OR [facility] Colon [employer] ENDOSCOPY [id number] 12/26/2026 [id number] / / [id number] Clip Ultra 360 235cm - [id number] Implanted:Qty: 1 on 05/02/2024 by Omid Bonner MD at OR [facility] Colon [employer] ENDOSCOPY [id number] 12/26/2026 [id number] / / [id number] Catheter Hemostatic 235cm 2.8mm [address]mm [address] Latexfree - [id number] Implanted:Qty: 1 on 06/08/2024 by Belén Hernadez MD at OR [facility] [employer] ENDOSCOPY [id number] 01/01/2027 [id number] / / [id number] Clip Ultra 360 235cm - [id number] Implanted:Qty: 1 on 06/08/2024 by Belén Hernadez MD at OR [facility] [employer] [id number] 03/06/2027 [id number] / / [id number] Catheter Hemostatic 235cm 2.8mm [address] Latexfree - [id number] Implanted:Qty: 1 on 06/08/2024 by Belén Hernadez MD at OR [facility] [employer] END[employer] [id number] 01/30/2027 [id number] / / [id number] Clip Ultra 360 235cm - [id number] Implanted:Qty: 1 on 06/08/2024 by Belén Hernadez MD at OR [facility] [employer] ENDOSCOPY [id number] 12/27/2026 [id number] / / [id number] Catheter Hemostatic 235cm 2.8mm [address] Latexfree - [id number] Implanted:Qty: 1 on 06/08/2024 by Belén Hernadez MD at OR [facility] [employer] ENDOS[employer] [id number] 01/30/2027 [id number] / / [id number] Clip Ultra 360 235cm - [id number] Implanted:Qty: 1 on 06/08/2024 by Belén Hernadez MD at OR [facility] [employer] ENDOS[employer] [id number] 12/27/2026 [id number] / / [id number] Clip Ultra 360 235cm - [id number] Implanted:Qty: 1 on 06/08/2024 by Belén Hernadez MD at OR [facility] [employer] [id number] 12/26/2026 [id number] / / [id number] Clip Ultra 360 235cm - [id number] Implanted:Qty: 1 on 06/08/2024 by Belén Hernadez MD at OR [facility] [employer] ENDOS[employer] [id number] 12/27/2026 [id number] / / [id number] Clip Hemostatic 18mm Assurance - [id number] Implanted:Qty: 1 on 06/08/2024 by Belén Hernadez MD at OR [facility] [employer] [id number] 01/02/2027 [id number] / / [id number] Catheter Hemostatic 235cm 2.8mm [address] Latexfree - [id number] Implanted:Qty: 1 on 06/08/2024 by Belén Hernadez MD at OR [facility] [employer] END[employer] [id number] 01/30/2027 [id number] / / [id number] Catheter Hemostatic 235cm 2.8mm [address] Latexfree - [id number] Implanted:Qty: 1 on 06/08/2024 by Belén Hernadez MD at OR [facility] [employer] ENDOS[employer] [id number] 01/30/2027 [id number] / / [id number] Clip Hemostatic 11mm Assurance - [id number] Implanted:Qty: 1 on 06/08/2024 by Belén Hernadez MD at OR [facility] [employer] 11/14/2026 [id number] Catheter Hemostatic 235cm 2.8mm [address] Latexfree - [id number] Implanted:Qty: 1 on 06/08/2024 by Belén Hernadez MD at OR [facility] [employer] [id number] 01/01/2027 [id number] / / [id number] Catheter Hemostatic 235cm 2.8mm [address] Latexfree - [id number] Implanted:Qty: 1 on 06/08/2024 by Belén Hernadez MD at OR [facility] [employer] [id number] 01/30/2027 [id number] / / [id number] Valve Transcath Resilia 26mm - [id number] - [id number] Implanted:Qty: 1 on 06/19/2024 by Khang Mir MD at [facility] [employer] [id number] 09/27/2026 [id number] / [id number] / [id number] documented as of this encounter Visit Diagnoses Diagnosis LBBB (left bundle branch block)- Primary Other left bundle branch block Mobitz type 2 second degree AV block Mobitz (type) II atrioventricular block Intermittent complete atrioventricular block (HCC) Atrioventricular block, complete Presence of automatic cardioverter/defibrillator (AICD) Automatic implantable cardiac defibrillator in situ documented in this encounter Advance Directives * [...] the patient have Health Care Power of Geophysical Laboratory Director? Yes, not currently available * No Code Date Activated Date Inactivated Comments 05/01/2024 11:50 AM 05/02/2024 9:14 AM This orde r reflects the patients wishes and were consensually agreed upon. Question Answer Comments Discussion of Advance Directives occurred with: Patient Healthcare Agents on File Name Relationship [facility] Agent [facility] Communication Mattie Branch Adult Child First Alternat e Health Care Agent (per Health Care Power of Geophysical Laboratory Director document) Care Teams Head Mechanic Relationship Specialty Start Date End Date September, Declan Person MD [address] [address] PCP - General Family Medicine 05/20/23 documented as of this encounter
--- OUTSIDE RECORDS SUMMARY | 2024-07-31 09:05 | External Medical Summary | Summary of Care ---
Author Name Unknown Organization [facility] Address [address] [place] [facility] [place] [place] [address] Phone [phone] Care Team Providers Care Switch Foreman Name Role Phone Declan Dejesus MD Primary Care Provider [phone] Reason for Visit * Reason Onset Date Comments Encounter Created in Error 07/09/2024 Encounter Details Date Type Department Care Team (Late st Contact Info) Description 07/09/2024 Telephone Hematology/Oncology Treatment, [place] [address] [place] [address] Bruna Funk CRNP [address] [place] [address] [place] [address] Encounter Created in Error Allergies Active Allergy Reactions Criticality Noted Date Comments Empagliflozin 10/06/2020 Fungal infection, urinary frequency Lisinopril Cough Polyethylene Glycol Other (Please comment) Low 04/26/2024 Severe gas Nickel Rash 09/13/2011 Tetanus Toxoids Rash 09/13/2011 documented as of this encounter (statuses as of 07/09/2024) Medications MULTI VITAMIN MENS PO TABS one [...] for Pain, Moderate. 20 Tablet 5 Active documented as of this encounter (statuses as of 07/09/2024) Active Problems Problem Noted Date Diagnosed Date Glaucoma 06/26/2024 Pulmonary emphysema 06/26/2024 S/P TAVR (transcatheter aortic valve replacement ) 06/20/2024 History of arteriovenous malformation (AVM) 05/17 Edema of right lower leg 06/07/2024 Atherosclerosis of [place] co ronary artery without angina pectoris 05/11/2024 [...] as of this encounter (statuses as of 07/09/2024) Resolved Problems Problem Noted Date Diagnosed Date Resolved Date Primary open-angle glaucoma, right eye, moderate stage 10/16/2020 08/15/2023 Overview (08/15/2023): Noted on pl as OU moderate Glaucoma 08/27/2013 06/07/2022 Overview (06/07/2022): More specific dx on pl HTN, goal below 140/80 07/03/201210/29 Overview: Per HTN Protocol documented as of this encounter (statuses as of 07/09/2024) Immunizations Name Administration Dates Next Due COVID-19 mRNA, LNP-s, No Pre serve, 2-Dose Series (Moderna) 08/19/2020,07/22/2020 COVID-19, MRNA-LNP, PF, 50 M CG/0.5 mL, 12 YRS AND ABOVE, IM (MODERNA-Spikevax) 04/04/2023 COVID-19, mRNA, LNP-s, PF, B ooster, 100mcg/0.5mg (Moderna) 04/16/2021 Covid-19 Ad26, Single Dose (Sylvia/J&J) 08/19/2020,07/22/2020 Pneumococcal Conjugate Vacci ne, 20-valent (Phhvbyu88) 05/20/2023 Pneumococcal Polysaccharide PPV23 (Pneumovax) 03/11/2009,10/11/2008(Deferred: Patient [...] money to buy more. Never true 04/10/20 Within the past 12 months, t he [...] 07/12/2024 10:00 AM EST Cardiac Studies Cardiology, [facility] [address] [place] [address] [facility] [address] [place] [address] 07/17/2024 7:40 AM EST [facility] [address] [facility] [place] [address] SeptemberDeclan MD [address] [place] [address] 07/19/2024 2:30 PM EST Cardiac Studies Cardiac Studies, [facility] [address] [place] [address] 07/24/2024 10:00 AM EDT Nurse Only Ancillary Department, [place] [address] [facility] [place] [address] Ashleigh, Nurse Annual Wellness [address] [place] [address] 07/26/2024 9:00 AM EDT Laboratory Laboratory, [facility] [address] [facility] [place] [address] [facility] [address] [place] [address] 07/26/2024 9:30 AM EDT Office Visit Cardiology, [facility] [address] [place] [address] Kareen Boyd CRNP [address] [place] [address] 07/30/2024 12:40 PM EDT Office Visit Family Practice, Ashleigh Gallegos [address] [place] [address] SeptemberDeclan MD [address] [place] [address] 07/31/2024 10:00 AM EDT Laboratory Laboratory, Ashleigh Kamara [address] [place] [address] [facility] [address] [place] [address] 08/09/2024 2:30 PM EDT Office Visit Hematology/Oncology [facility] [place] [address] [facility], [place] [phone] Bruna Funk CRNP [address] [facility] [place] [address] Health Maintenance Due Date Last Done Comments [...] this encounter Medical Devices Implanted Type Area Online Marketing Analyst Device Identifier Shelf Expiration Date Model / Serial / Lot Iol Mx60 14.0 Implanted:Qty: 1 on 10/19/2019 by Ankit Ny MD at OR [facility] Right: Eye 04/14/2020 MX60 / [id number] / [id number] Implanted:Qty: 1 on 10/30/2019 by Ankit Ny MD at OR [facility] Left: Eye 02/12/2021 MX60 / [id number] / [id number] Clip Ultra 360 235cm - [id number] Implanted:Qty: 1 on 05/02/2024 by Omid Bonner MD at OR [facility] Colon [employer] ENDOSCOPY [id number] 12/26/2026 [id number] / / [id number] Clip Ultra 360 235cm - [id number] Implanted:Qty: 1 on 05/02/2024 by Omid Bonner MD at OR [facility] Colon [employer] ENDOSCOPY [id number] 12/26/2026 [id number] / / [id number] Clip Ultra 360 235cm - [id number] Implanted:Qty: 1 on 05/02/2024 by Omid Bonner MD at OR [facility] Colon [employer] ENDOSCOPY [id number] 12/26/2026 [id number] / / [id number] Catheter Hemostatic 235cm 2.8mm [address]mm [address] Latexfree - [id number] Implanted:Qty: 1 on 06/08/2024 by Belén Hernadez MD at OR [facility] [employer] ENDOS[employer] [id number] 01/01/2027 [id number] / / [id number] Clip Ultra 360 235cm - [id number] Implanted:Qty: 1 on 06/08/2024 by Belén Hernadez MD at OR [facility] [employer] ENDOS[employer] [id number] 03/06/2027 [id number] / / [id number] Catheter Hemostatic 235cm 2.8mm 11mm [address] Latexfree - [id number] Implanted:Qty: 1 on 06/08/2024 by Belén Hernadez MD at OR [facility] [employer] ENDOSCOPY [id number] 01/30/2027 [id number] / / [id number] Clip Ultra 360 235cm - [id number] Implanted:Qty: 1 on 06/08/2024 by Belén Hernadez MD at OR [facility] [employer] ENDOSCOPY [id number] 12/27/2026 [id number] / / [id number] Catheter Hemostatic 235cm 2.8mm [address]mm [address] Latexfree - [id number] Implanted:Qty: 1 on 06/08/2024 by Belén Hernadez MD at OR [facility] [employer] ENDOSCOPY [id number] 01/30/2027 [id number] / / [id number] Clip Ultra 360 235cm - [id number] Implanted:Qty: 1 on 06/08/2024 by Belén Hernadez MD at OR [facility] [employer] ENDOSCOPY [id number] 12/27/2026 [id number] / / [id number] Clip Ultra 360 235cm - [id number] Implanted:Qty: 1 on 06/08/2024 by Belén Hernadez MD at OR [facility] [employer] ENDOSCOPY [id number] 12/26/2026 [id number] / / [id number] Clip Ultra 360 235cm - [id number] Implanted:Qty: 1 on 06/08/2024 by Belén Hernadez MD at OR [facility] [employer] ENDOSCOPY [id number] 12/27/2026 [id number] / / [id number] Clip Hemostatic 18mm Assurance - [id number] Implanted:Qty: 1 on 06/08/2024 by Belén Hernadez MD at OR [facility] [employer] [id number] 01/02/2027 [id number] Catheter Hemostatic 235cm 2.8mm 11mm [address] Latexfree - [id number] Implanted:Qty: 1 on 06/08/2024 by Belén Hernadez MD at OR [facility] [employer] ENDOSCOPY [id number] 01/30/2027 [id number] / / [id number] Catheter Hemostatic 235cm 2.8mm 11mm [address] Latexfree - [id number] Implanted:Qty: 1 on 06/08/2024 by Belén Hernadez MD at OR [facility] [employer] ENDOSCOPY [id number] 01/30/2027 [id number] / / [id number] Clip Hemostatic 11mm Assurance - [id number] Implanted:Qty: 1 on 06/08/2024 by Belén Hernadez MD at OR [facility] [employer] 11/14/2026 [id number] / / [id number] Catheter Hemostatic 235cm 2.8mm 11mm [address] Latexfree - [id number] Implanted:Qty: 1 on 06/08/2024 by Belén Hernadez MD at OR [facility] [employer] ENDOSCOPY [id number] 01/01/2027 [id number] / / [id number] Catheter Hemostatic 235cm 2.8mm 11mm [address] Latexfree - [id number] Implanted:Qty: 1 on 06/08/2024 by Belén Hernadez MD at OR [facility] [employer] ENDOSCOPY [id number] 01/30/2027 [id number] / / [id number] Valve Transcath Resilia 26mm - [id number] - [id number] Implanted:Qty: 1 on 06/19/2024 by Khang Mir MD at [facility] [employer] [id number] 09/27/2026 [id number] / [id number] / [id number] documented as of this encounter Advance Directives [...] the patient have Health Care Power of Core Dropper? Yes, not currently available * No Code Date Activated Date Inactivated Comments 05/01/2024 11:50 AM 05/02/2024 9:14 AM This orde r reflects the patients wishes and were consensually agreed upon. Question Answer Comments Discussion of Advance Directives occurred with: Patient Healthcare Agents on File Name Relationship [facility] Mattie Branch Adult Child First Alternat e Health Care Agent (per Health Care Power of Core Dropper document) Care Teams Switch Foreman Relationship Specialty Start Date End Date September, Declan Person MD [address] [place] [id number] PCP - General Family Medicine 05/20/23 documented as of this encounter
--- OUTSIDE RECORDS SUMMARY | 2024-07-31 09:05 | External Medical Summary | Summary of Care ---
Author Name Unknown Organization [facility] Address [address] [facility] [address] Phone [phone] Care Team Providers Care Orientation And Mobility Instructor Name Role Phone Declan Dejesus MD Primary Care Provider [phone] Encounter Details Date Type Department Care Team (Late st Contact Info) Description 07/04/2024 Telephone Cardiology, [place] [address] [facility] [address] Divya Nation, [address] [facility] [place] [address] Allergies Active Allergy Reactions Criticality Noted Date Comments Empagliflozin 10/06/2020 Fungal infection, urinary frequency Lisinopril Cough Polyethylene Glycol Other (Please comment) Low 04/26/2024 Severe gas Nickel Rash 09/13/2011 Tetanus Toxoids Rash 09/13/2011 documented as of this encounter (statuses as of 07/05/2024) Medications MULTI VITAMIN MENS PO TABS one [...] as of this encounter (statuses as of 07/05/2024) Active Problems Problem Noted Date Diagnosed Date Glaucoma 06/26/2024 Pulmonary emphysema 06/26/2024 S/P TAVR (transcatheter aortic valve replacement ) 06/20/2024 History of arteriovenous malformation (AVM) 05/17 Edema of right lower leg 06/07/2024 Atherosclerosis of [place] co ronary artery without angina pectoris 05/11/2024 [...] as of this encounter (statuses as of 07/05/2024) Resolved Problems Problem Noted Date Diagnosed Date Resolved Date Primary open-angle glaucoma, right eye, moderate stage 10/16/2020 08/15/2023 Overview (08/15/2023): Noted on pl as OU moderate Glaucoma 08/27/2013 06/07/2022 Overview (06/07/2022): More specific dx on pl HTN, goal below 140/80 07/03/201210/29 Overview: Per HTN Protocol documented as of this encounter (statuses as of 07/05/2024) Immunizations Name Administration Dates Next Due COVID-19 mRNA, LNP-s, No Pre serve, 2-Dose Series (Moderna) 08/19/2020,07/22/2020 COVID-19, MRNA-LNP, PF, 50 M CG/0.5 mL, 12 YRS AND ABOVE, IM (MODERNA-Spikevax) 04/04/2023 COVID-19, mRNA, LNP-s, PF, B ooster, 100mcg/0.5mg (Moderna) 04/16/2021 Covid-19 Ad26, Single Dose (Sylvia/J&J) 08/19/2020,07/22/2020 Pneumococcal Conjugate Vacci ne, 20-valent (Oxbcynj24) 05/20/2023 Pneumococcal Polysaccharide PPV23 (Pneumovax) 03/11/2009,10/11/2008(Deferred: Patient [...] encounter Miscellaneous Notes * Telephone Encounter - Divya Nation DO - 07/04/2024 6:46 PM EST Pt has post op pain from ppm on Tuesday07/02/2024 and upgrade to biv ICD on 07/04/2024 due to sustained VT. Will prescribe percocet Divya Nation DO [facility] [place] [address] documented in this encounter Plan of Treatment Upcoming Encounters Date Type Department Care Team (Late st Contact Info) Description 07/12/2024 10:00 AM EST Cardiac Studies Cardiology, [facility] [address] [facility] [place] [address] [facility] [address] [place] [address] 07/17/2024 7:40 AM EST Office Visit Family Practice, Ashleigh Gallegos [address] [place] [phone] September, Declan Person MD [address] [place] [address] 07/19/2024 2:30 PM EST Cardiac Studies Cardiac Studies, [facility] [address] [facility] [place] [address] 07/24/2024 10:00 AM EDT Nurse Only Ancillary Department, Ashleigh Kamara [address] [facility] [place] [phone] Ashleigh Nurse Annual Wellness [address] [place] [address] 07/26/2024 9:00 AM EDT Laboratory Laboratory, [facility] [place] [phone] [place] [address] [place] [address] 07/26/2024 9:30 AM EDT Office Visit Cardiology, [facility] [address] [place] [address] Kareen Boyd CRNP [address] [place] [address] 07/30/2024 12:40 PM EDT Office Visit Family Practice, [facility] [address] [facility] [place] [address] SeptemberDeclan MD [address] [facility] [address] 07/31/2024 10:00 AM EDT Laboratory Laboratory, [place] [facility] [address] [facility] [place] [phone] [facility] Laboratory [address] [place] [address] 08/09/2024 2:30 PM EDT Office Visit Hematology/Oncology [facility] [address] [place] [phone] Bruna Funk CRNP [address] [facility] [place] [address] Health Maintenance Due Date Last Done Comments [...] FOR COPD 06/19/2025 06/19/2024 GFR 06/20/2025 06/20/2024, 020 08/2024, 06/19/2024, Additional history exists Cologuard 2026 2023, 05/16, 05/25/2023 Colonoscopy 05/02/2029 05/02/2024, 04/15, 06/29/2023, Additional history exists Colorectal Cancer Screening 05/02/2029 AAA Screening Completed 10/18/2018, 0 09/2018, 11/11/2014, [...] this encounter Medical Devices Implanted Type Area Boring Machine Set Up Operator Jig Device Identifier Shelf Expiration Date Model / Serial / Lot Iol Mx60 14.0 Implanted:Qty: 1 on 10/19/2019 by Ankit Ny MD at OR [facility] Right: Eye 04/14/2020 MX60 / [id number] / [id number] Implanted:Qty: 1 on 10/30/2019 by Ankit Ny MD at OR [facility] Left: Eye 02/12/2021 MX60 / [id number] / [id number] Clip Ultra 360 235cm - [id number] Implanted:Qty: 1 on 05/02/2024 by Omid Bonner MD at OR [facility] Colon [employer] ENDOSCOPY [id number] 12/26/2026 [id number] / / [id number] Clip Ultra 360 235cm - [id number] Implanted:Qty: 1 on 05/02/2024 by Omid Bonner MD at OR [facility] Colon [employer] ENDOSCOPY [id number] 12/26/2026 [id number] / / [id number] Clip Ultra 360 235cm - [id number] Implanted:Qty: 1 on 05/02/2024 by Omid Bonner MD at OR [facility] Colon [employer] ENDOSCOPY [id number] 12/26/2026 [id number] / / [id number] Catheter Hemostatic 235cm 2.8mm [address] Latexfree - [id number] Implanted:Qty: 1 on 06/08/2024 by Belén Hernadez MD at OR [facility] [employer] ENDOSCOPY [id number] 01/01/2027 [id number] / / [id number] Clip Ultra 360 235cm - [id number] Implanted:Qty: 1 on 06/08/2024 by Belén Hernadez MD at OR [facility] [employer] ENDOSCOPY [id number] 03/06/2027 [id number] / / [id number] Catheter Hemostatic 235cm 2.8mm [address]mm [address] Latexfree - [id number] Implanted:Qty: 1 on 06/08/2024 by Belén Hernadez MD at OR [facility] [employer] ENDOSCOPY [id number] 01/30/2027 [id number] / / [id number] Clip Ultra 360 235cm - [id number] Implanted:Qty: 1 on 06/08/2024 by Belén Hernadez MD at OR [facility] [employer] ENDOSCOPY [id number] 12/27/2026 [id number] / / [id number] Catheter Hemostatic 235cm 2.8mm [address] Latexfree - [id number] Implanted:Qty: 1 on 06/08/2024 by Belén Hernadez MD at OR [facility] [employer] ENDOSCOPY [id number] 01/30/2027 [id number] / / [id number] Clip Ultra 360 235cm - [id number] Implanted:Qty: 1 on 06/08/2024 by Belén Hernadez MD at OR [facility] [employer] ENDOSCOPY [id number] 12/27/2026 [id number] / / [id number] Clip Ultra 360 235cm - [id number] Implanted:Qty: 1 on 06/08/2024 by Belén Hernadez MD at OR [facility] [employer] ENDOSCOPY [id number] 12/26/2026 [id number] / / [id number] Clip Ultra 360 235cm - [id number] Implanted:Qty: 1 on 06/08/2024 by Belén Hernadez MD at OR [facility] [employer] ENDOSCOPY [id number] 12/27/2026 [id number] / / [id number] Clip Hemostatic 18mm Assurance - [id number] Implanted:Qty: 1 on 06/08/2024 by Belén Hernadez MD at OR [facility] [employer]ERIS [employer]IA [id number] 01/02/2027 [id number] / [id number] Catheter Hemostatic 235cm 2.8mm [address] Latexfree - [id number] Implanted:Qty: 1 on 06/08/2024 by Belén Hernadez MD at OR [facility] [employer] ENDOSCOPY [id number] 01/30/2027 [id number] / / [id number] Catheter Hemostatic 235cm 2.8mm [address] Latexfree - [id number] Implanted:Qty: 1 on 06/08/2024 by Belén Hernadez MD at OR [facility] [employer] ENDOSCOPY [id number] 01/30/2027 [id number] / / [id number] Clip Hemostatic 11mm Assurance - [id number] Implanted:Qty: 1 on 06/08/2024 by Belén Hernadez MD at OR [facility] [employer]IS T[employer]IA 11/14/2026 [id number] / / [id number] Catheter Hemostatic 235cm 2.8mm [address] Latexfree - [id number] Implanted:Qty: 1 on 06/08/2024 by Belén Hernadez MD at OR [facility] [employer] ENDOSCOPY [id number] 01/01/2027 [id number] / / [id number] Catheter Hemostatic 235cm 2.8mm [address] Latexfree - [id number] Implanted:Qty: 1 on 06/08/2024 by Belén Hernadez MD at OR [facility] [employer] ENDOSCOPY [id number] 01/30/2027 [id number] / / [id number] Valve Transcath Resilia 26mm - [id number] - [id number] Implanted:Qty: 1 on 06/19/2024 by Khang Mir MD at [facility] [employer] [id number] 09/27/2026 [id number] / [id number] / [id number] documented as of this encounter Advance Directives [...] the patient have Health Care Power of Motor Assembly Supervisor? Yes, not currently available * No Code Date Activated Date Inactivated Comments 05/01/2024 11:50 AM 05/02/2024 9:14 AM This orde r reflects the patients wishes and were consensually agreed upon. Question Answer Comments Discussion of Advance Directives occurred with: Patient Healthcare Agents on File Name Relationship Healthcare Agent [facility] Mattie Branch Adult Child First Alternat e Health Care Agent (per Health Care Power of Motor Assembly Supervisor document) Care Teams Orientation And Mobility Instructor Relationship Specialty Start Date End Date September, Declan Person MD [address] [facility] [place] [id number] PCP - General Family Medicine 05/20/23 documented as of this encounter
--- OUTSIDE RECORDS SUMMARY | 2024-07-31 09:05 | External Medical Summary ---
Author Name Unknown Address Unknown Organization K01:LABORATORY [facility] - [facility] [address] [facility] [address] [facility] [address] Laboratory Report Ordering Provider Test Date Status CASANDRA WALKER 07/16/2024 09:42:51 Final Observation Date Value Abnormality Reference (Units ) Status WBC, Total 07/16/2024 09:42:51 10.17 4.00-10.80 (K/uL) Final RBC 07/16/2024 09:42:51 3.58 4.50-5.25 (M/uL) Final Hemoglobin 07/16/2024 09:42:51 8.6 Below low normal 14.0-16.8 (g/dL) Final HCT 07/16/2024 09:42:51 29.8 Below low normal 40.0-48.4 (%) Final MCV 07/16/2024 09:42:51 83.2 82.0-99.5 (fL) Final MCH 07/16/2024 09:42:51 24.0 27.0-34.0 (pg) Final MCHC 07/16/2024 09:42:51 28.9 32.0-36.0 (g/dL) Final RDW 07/16/2024 09:42:51 17.5 11.5-15.5 (%) Final Platelets 07/16/2024 09:42:51 201 140-400 (K/uL) Final MPV 07/16/2024 09:42:51 12.4 6.6-11.1 (fL) Final Nucleated erythrocytes/100 leukocytes [Ratio] in Blood by Automated count 07/16/2024 09:42:51 0 <=0 (/100 WBCs) Final Performing Location LABORATORY [facility] - [address] [place] [address]
--- OUTSIDE RECORDS SUMMARY | 2024-07-31 09:05 | External Medical Summary ---
Author Name Unknown Address Unknown Organization K01:LABORATORY [facility] - [address] [place] [address] Laboratory Report Ordering Provider Test Date Status CASANDRA WALKER 07/16/2024 09:42:51 Final Observation Date Value Abnormality Reference (Units ) Status Ferritin 07/16/2024 09:42:51 24 Below low normal 30- 400 (ng/mL) Final Performing Location LABORATORY [facility] - [address] [place] [address]
--- OUTSIDE RECORDS SUMMARY | 2024-07-31 09:05 | External Medical Summary | Summary of Care ---
Author Name Unknown Organization [facility] Address [address] [facility] [address] Phone [phone] Care Team Providers Care Skidway Man Name Role Phone Declan Dejesus MD Primary Care Provider [phone] Encounter Details Date Type Department Care Team (Late st Contact Info) Description 07/04/2024 Result Scan Unspecified Department <No scans attached> Allergies Active Allergy Reactions Criticality Noted Date Comments Empagliflozin 10/06/2020 Fungal infection, urinary frequency Lisinopril Cough Polyethylene Glycol Other (Please comment) Low 04/26/2024 Severe gas Nickel Rash 09/13/2011 Tetanus Toxoids Rash 09/13/2011 documented as of this encounter (statuses as of 07/06/2024) Medications MULTI VITAMIN MENS PO TABS one [...] as of this encounter (statuses as of 07/06/2024) Active Problems Problem Noted Date Diagnosed Date Glaucoma 06/26/2024 Pulmonary emphysema 06/26/2024 S/P TAVR (transcatheter aortic valve replacement ) 06/20/2024 History of arteriovenous malformation (AVM) 05/17 Edema of right lower leg 06/07/2024 Atherosclerosis of [place] co ronary artery without angina pectoris 05/11/2024 [...] as of this encounter (statuses as of 07/06/2024) Resolved Problems Problem Noted Date Diagnosed Date Resolved Date Primary open-angle glaucoma, right eye, moderate stage 10/16/2020 08/15/2023 Overview (08/15/2023): Noted on pl as OU moderate Glaucoma 08/27/2013 06/07/2022 Overview (06/07/2022): More specific dx on pl HTN, goal below 140/80 07/03/201210/29 Overview: Per HTN Protocol documented as of this encounter (statuses as of 07/06/2024) Immunizations Name Administration Dates Next Due COVID-19 mRNA, LNP-s, No Pre serve, 2-Dose Series (Moderna) 08/19/2020,07/22/2020 COVID-19, MRNA-LNP, PF, 50 M CG/0.5 mL, 12 YRS AND ABOVE, IM (MODERNA-Spikevax) 04/04/2023 COVID-19, mRNA, LNP-s, PF, B ooster, 100mcg/0.5mg (Moderna) 04/16/2021 Covid-19 Ad26, Single Dose (Sylvia/J&J) 08/19/2020,07/22/2020 Pneumococcal Conjugate Vacci ne, 20-valent ([id number]) 05/20/2023 Pneumococcal Polysaccharide PPV23 (Pneumovax) 03/11/2009,10/11/2008(Deferred: Patient [...] 07/12/2024 10:00 AM EST Cardiac Studies Cardiology, [facility] [address] [facility] [place] [address] [facility] [address] [place] [address] 07/17/2024 7:40 AM EST Office Visit [facility], [place] [phone] SeptemberDeclan MD [address] [place] [address] 07/19/2024 2:30 PM EST Cardiac Studies Cardiac Studies, [facility] [address] [place] [address] 07/24/2024 10:00 AM EDT Nurse Only Ancillary Department, [place] [phone] [place], Nurse Annual Wellness [address] [place] [address] 07/26/2024 9:00 AM EDT Laboratory Laboratory, [facility] [address] [place] [phone] [facility] [address] [place] [address] 07/26/2024 9:30 AM EDT Office Visit Cardiology, [facility] [address] [place] [address] Kareen Boyd CRNP [address] [place] [address] 07/30/2024 12:40 PM EDT Office Visit [facility], [place] Gallegos [address] [place] [phone] Declan Dejesus MD [address] [place] [address] 07/31/2024 10:00 AM EDT Laboratory Laboratory, [place] [address] [place] [phone] [place], Laboratory [address] [place] [address] 08/09/2024 2:30 PM EDT Office Visit Hematology/Oncology [facility] [place] [address] [place] [address] Bruna Funk CRNP [address] [place] [address] Health Maintenance Due Date Last Done Comments [...] this encounter Medical Devices Implanted Type Area Jinrikisha Driver Device Identifier Shelf Expiration Date Model / Serial / Lot Iol Mx60 14.0 Implanted:Qty: 1 on 10/19/2019 by Ankit Ny MD at OR [facility] Right: Eye 04/14/2020 MX60 / [id number] / [id number] Implanted:Qty: 1 on 10/30/2019 by Ankit Ny MD at OR [facility] Left: Eye 02/12/2021 MX60 / [id number] / [id number] Clip Ultra 360 235cm - [id number] Implanted:Qty: 1 on 05/02/2024 by Omid Bonner MD at OR [facility] Colon [employer] : ENDOSCOPY [id number] 12/26/2026 [id number] / / [id number] Clip Ultra 360 235cm - [id number] Implanted:Qty: 1 on 05/02/2024 by Omid Bonner MD at OR [facility] Colon [employer] : ENDOSCOPY [id number] 12/26/2026 [id number] / / [id number] Clip Ultra 360 235cm - [id number] Implanted:Qty: 1 on 05/02/2024 by Omid Bonner MD at OR [facility] Colon [employer] : ENDOSCOPY [id number] 12/26/2026 [id number] / / [id number] Catheter Hemostatic 235cm 2.8mm 11mm Clip [address] Latexfree - [id number] Implanted:Qty: 1 on 06/08/2024 by Belén Hernadez MD at OR [facility] [employer] ENDOSCOPY [id number] 01/01/2027 [id number] / / [id number] Clip Ultra 360 235cm - [id number] Implanted:Qty: 1 on 06/08/2024 by Belén Hernadez MD at OR [facility] [employer] ENDOSCOPY [id number] 03/06/2027 [id number] / / [id number] Catheter Hemostatic 235cm 2.8mm 11mm Cl[address] Latexfree - [id number] Implanted:Qty: 1 on 06/08/2024 by Belén Hernadez MD at OR [facility] [employer] ENDOSCOPY [id number] 01/30/2027 [id number] / / [id number] Clip Ultra 360 235cm - [id number] Implanted:Qty: 1 on 06/08/2024 by Belén Hernadez MD at OR [facility] [employer] ENDOSCOPY [id number] 12/27/2026 [id number] / / [id number] Catheter Hemostatic 235cm 2.8mm 11mm Cl[address] Latexfree - [id number] Implanted:Qty: 1 on 06/08/2024 by Belén Hernadez MD at OR [facility] [employer] ENDOSCOPY [id number] 01/30/2027 [id number] / / [id number] Clip Ultra 360 235cm - [id number] Implanted:Qty: 1 on 06/08/2024 by Belén Hernadez MD at OR [facility] [employer] ENDOSCOPY [id number] 12/27/2026 [id number] / / [id number] Clip Ultra 360 235cm - [id number] Implanted:Qty: 1 on 06/08/2024 by Belén Hernadez MD at OR [facility] [employer] ENDOSCOPY [id number] 12/26/2026 [id number] / / [id number] Clip Ultra 360 235cm - [id number] Implanted:Qty: 1 on 06/08/2024 by Belén Hernadez MD at OR [facility] [employer] ENDOSCOPY [id number] 12/27/2026 [id number] / / [id number] Clip Hemostatic 18mm Assurance - [id number] Implanted:Qty: 1 on 06/08/2024 by Belén Hernadez MD at OR [facility] [employer] [id number] 01/02/2027 [id number] / / [id number] Catheter Hemostatic 235cm 2.8mm 11mm Cl[address] Latexfree - [id number] Implanted:Qty: 1 on 06/08/2024 by Belén Hernadez MD at OR [facility] [employer] ENDOSCOPY [id number] 01/30/2027 [id number] / / [id number] Catheter Hemostatic 235cm 2.8mm 11mm [address] Latexfree - [id number] Implanted:Qty: 1 on 06/08/2024 by Belén Hernadez MD at OR [facility] [employer] ENDOSCOPY [id number] 01/30/2027 [id number] / / [id number] Clip Hemostatic 11mm Assurance - [id number] Implanted:Qty: 1 on 06/08/2024 by Belén Hernadez MD at OR [facility] [employer] 11/14/2026 [id number] / / [id number] Catheter Hemostatic 235cm 2.8mm 11mm Cl[address] Latexfree - [id number] Implanted:Qty: 1 on 06/08/2024 by Belén Hernadez MD at OR [facility] [employer] ENDOSCOPY [id number] 01/01/2027 [id number] / / [id number] Catheter Hemostatic 235cm 2.8mm 11mm Cl[address] Latexfree - [id number] Implanted:Qty: 1 on 06/08/2024 by Belén Hernadez MD at OR [facility] [employer] ENDOSCOPY [id number] 01/30/2027 [id number] / / [id number] Valve Transcath Resilia 26mm - [id number] - [id number] Implanted:Qty: 1 on 06/19/2024 by Khang Mir MD at [facility]ARD[facility]AC [facility]S [facility] [email or web address] [id number] 09/27/2026 [id number] / [id number] / [id number] documented as of this encounter Procedures Procedure Name Priority Date/Time Associated Diagnosis Comments ECHOCARDIOLOGY SCANNED RESULT 07/04/2024 documented in this encounter Results * ECHOCARDIOLOGY SCANNED RESULT (07/04/2024) 07/04/2024 us No Physician Data Unknown ECHOCARDIOLOGY Final Result documented in this encounter Advance Directives * [...] the patient have Health Care Power of Estate And Trust Tax Principal? Yes, not currently available * No Code Date Activated Date Inactivated Comments 05/01/2024 11:50 AM 05/02/2024 9:14 AM This orde r reflects the patients wishes and were consensually agreed upon. Question Answer Comments Discussion of Advance Directives occurred with: Patient Healthcare Agents on File Name Relationship Healthcare Agent [facility] p Communication Mattie Branch Adult Child First Alternat e Health Care Agent (per Health Care Power of Estate And Trust Tax Principal document) Care Teams Skidway Man Relationship Specialty Start Date End Date September, Declan Person MD [address] [facility] [place] [address] PCP - General Family Medicine 05/20/23 documented as of this encounter
--- OUTSIDE RECORDS SUMMARY | 2024-07-31 09:05 | External Medical Summary | Summary of Care ---
Author Name Unknown Organization [facility] Address [address] [facility] [address] Phone [phone] Care Team Providers Care X Ray Equipment Tester Name Role Phone Declan Dejesus MD Primary Care Provider [phone] Reason for Visit * Reason Comments Outpatient Testing Encounter Details Date Type Department Care Team (Late st Contact Info) Description 07/16/2024 9:40 AM EST Laboratory Laboratory, [place] [facility] [address] [facility] [place] [address] [facility] [address] [facility] [place] [address] Iron deficiency anemia due to chronic blood loss; History of transcatheter aortic valve replacement (TAVR); Severe aortic stenosis; S/P TAVR (transcatheter aortic valve replacement); Mobitz type 2 second degree AV block Allergies Active Allergy Reactions Criticality Noted Date Comments Empagliflozin 10/06/2020 Fungal infection, urinary frequency Lisinopril Cough Polyethylene Glycol Other (Please comment) Low 04/26/2024 Severe gas Nickel Rash 09/13/2011 Tetanus Toxoids Rash 09/13/2011 documented as of this encounter (statuses as of 07/16/2024) Medications MULTI VITAMIN MENS PO TABS one [...] as of this encounter (statuses as of 07/16/2024) Active Problems Problem Noted Date Diagnosed Date Glaucoma 06/26/2024 Pulmonary emphysema 06/26/2024 S/P TAVR (transcatheter aortic valve replacement ) 06/20/2024 History of arteriovenous malformation (AVM) 05/17 Edema of right lower leg 06/07/2024 Atherosclerosis of [place] co ronary artery without angina pectoris 05/11/2024 [...] as of this encounter (statuses as of 07/16/2024) Resolved Problems Problem Noted Date Diagnosed Date Resolved Date Primary open-angle glaucoma, right eye, moderate stage 10/16/2020 08/15/2023 Overview (08/15/2023): Noted on pl as OU moderate Glaucoma 08/27/2013 06/07/2022 Overview (06/07/2022): More specific dx on pl HTN, goal below 140/80 07/03/201210/29 Overview: Per HTN Protocol documented as of this encounter (statuses as of 07/16/2024) Immunizations Name Administration Dates Next Due COVID-19 mRNA, LNP-s, No Pre serve, 2-Dose Series (Moderna) 08/19/2020,07/22/2020 COVID-19, MRNA-LNP, PF, 50 M CG/0.5 mL, 12 YRS AND ABOVE, IM (MODERNA-Spikevax) 04/04/2023 COVID-19, mRNA, LNP-s, PF, B ooster, 100mcg/0.5mg (Moderna) 04/16/2021 Covid-19 Ad26, Single Dose (Sylvia/J&J) 08/19/2020,07/22/2020 Pneumococcal Conjugate Vacci ne, 20-valent (Oyivqwt24) 05/20/2023 Pneumococcal Polysaccharide PPV23 (Pneumovax) 03/11/2009,10/11/2008(Deferred: Patient [...] AM EST [facility] [place] [facility] [address] [facility] [place] [phone] SeptemberDeclan MD [address] [facility] [place] [address] 07/19/2024 2:30 PM EST Cardiac Studies Cardiac Studies, [facility] [address] [place] [address] 07/24/2024 10:00 AM EDT Nurse Only Ancillary Department, [place] Dilllissa Kamara [address] [facility] [place] [phone] [place] Nurse Annual Wellness [address] [facility] [place] [address] 07/26/2024 9:00 AM EDT Laboratory Laboratory, [facility] [address] [facility] [place] [address] Kg [place] [address] [place] [address] 07/26/2024 9:30 AM EDT [facility] [address] [facility] [place] [address] Kareen Boyd CRNP [address] [place] [address] 07/30/2024 12:40 PM EDT [facility] [place] [place] [phone] Declan Dejesus MD [address] [place] [address] 07/31/2024 10:00 AM EDT Laboratory Laboratory, [place] [phone] [place], Laboratory [address] [place] [address] 08/09/2024 2:30 PM EDT Office Visit Hematology/Oncology [facility] [address] [facility] [phone] Bruna Funk CRNP [address] [place] [address] 10/09/2024 10:00 AM EDT Cardiac Studies Cardiology, [facility] [address] [place] [address] [facility] [address] [place] [address] Pending Results Name Type Priority Associated Diagnoses Date /Time CBC WITH WBC DIFFERENTIAL Lab STAT Iron deficiency anemia due to chronic blood loss 07/16/2024 9:42 AM EST COMPREHENSIVE METABOLIC PANEL Lab Routine Severe aortic stenosis S/P TAVR (transcatheter aortic valve replacement) Mobitz type 2 second degree AV block 07/16/2024 9:42 AM EST CBC Lab STAT Iron deficiency anemia due to chronic blood loss 07/16/2024 9:42 AM EST DIFFERENTIAL, AUTOMATED Lab STAT Iron deficiency anemia due to chronic blood loss 07/16/2024 9:42 AM EST Health Maintenance Due Date Last Done Comments [...] FOR COPD 06/19/2025 06/19/2024 GFR 06/20/2025 06/20/2024, 0 08/2024, 06/19/2024, Additional history exists Cologuard 2026 [...] this encounter Medical Devices Implanted Type Area Director Of Services Device Identifier Shelf Expiration Date Model / Serial / Lot Iol Mx60 14.0 Implanted:Qty: 1 on 10/19/2019 by Ankit Ny MD at OR [facility] Right: Eye 04/14/2020 MX60 / [id number] / [id number] Implanted:Qty: 1 on 10/30/2019 by Ankit Ny MD at OR [facility] Left: Eye 02/12/2021 MX60 / [id number] / [id number] Clip Ultra 360 235cm - [id number] Implanted:Qty: 1 on 05/02/2024 by Omid Bonner MD at OR [facility] Colon [employer] : ENDOSCOPY [id number] 12/26/2026 [id number] / / [id number] Clip Ultra 360 235cm - [id number] Implanted:Qty: 1 on 05/02/2024 by Omid Bonner MD at OR [facility] Colon [employer] ENDOSCOPY [id number] 12/26/2026 [id number] / / [id number] Clip Ultra 360 235cm - [id number] Implanted:Qty: 1 on 05/02/2024 by Omid Bonner MD at OR [facility] Colon [employer] ENDOSCOPY [id number] 12/26/2026 [id number] / / [id number] Catheter Hemostatic 235cm 2.8mm [address]mm [address] Latexfree - [id number] Implanted:Qty: 1 on 06/08/2024 by Belén Hernadez MD at OR [facility] [employer] ENDOSCOPY [id number] 01/01/2027 [id number] / / [id number] Clip Ultra 360 235cm - [id number] Implanted:Qty: 1 on 06/08/2024 by Belén Hernadez MD at OR [facility] [employer] ENDOSCOPY [id number] 03/06/2027 [id number] / / [id number] Catheter Hemostatic 235cm 2.8mm [address] Latexfree - [id number] Implanted:Qty: 1 on 06/08/2024 by Belén Hernadez MD at OR [facility] [employer] ENDOSCOPY [id number] 01/30/2027 [id number] / / [id number] Clip Ultra 360 235cm - [id number] Implanted:Qty: 1 on 06/08/2024 by Belén Hernadez MD at OR [facility] [employer] ENDOSCOPY [id number] 12/27/2026 [id number] / / [id number] Catheter Hemostatic 235cm 2.8mm [address] Latexfree - [id number] Implanted:Qty: 1 on 06/08/2024 by Belén Hernadez MD at OR [facility] [employer] ENDOSCOPY [id number] 01/30/2027 [id number] / / [id number] Clip Ultra 360 235cm - [id number] Implanted:Qty: 1 on 06/08/2024 by Belén Hernadez MD at OR [facility] [employer] ENDOSCOPY [id number] 12/27/2026 [id number] / / [id number] Clip Ultra 360 235cm - [id number] Implanted:Qty: 1 on 06/08/2024 by Belén Hernadez MD at OR [facility] [employer] ENDOSCOPY [id number] 12/26/2026 [id number] / / [id number] Clip Ultra 360 235cm - [id number] Implanted:Qty: 1 on 06/08/2024 by Belén Hernadez MD at OR [facility] [employer] ENDOSCOPY [id number] 12/27/2026 [id number] / / [id number] Clip Hemostatic 18mm Assurance - [id number] Implanted:Qty: 1 on 06/08/2024 by Belén Hernadez MD at OR [facility] [employer]ER[employer] [id number] 01/02/2027 [id number] / / [id number] Catheter Hemostatic 235cm 2.8mm [address] Latexfree - [id number] Implanted:Qty: 1 on 06/08/2024 by Belén Hernadez MD at OR [facility] [employer] ENDOSCOPY [id number] 01/30/2027 [id number] / / [id number] Catheter Hemostatic 235cm 2.8mm [address] Latexfree - [id number] Implanted:Qty: 1 on 06/08/2024 by Belén Hernadez MD at OR [facility] [employer] ENDOSCOPY [id number] 01/30/2027 [id number] / / [id number] Clip Hemostatic 11mm Assurance - [id number] Implanted:Qty: 1 on 06/08/2024 by Belén Hernadez MD at OR [facility] [employer]ER[employer]ium TASIA 11/14/2026 [id number] / / [id number] Catheter Hemostatic 235cm 2.8mm [address] Latexfree - [id number] Implanted:Qty: 1 on 06/08/2024 by Belén Hernadez MD at OR [facility] [employer] ENDOSCOPY [id number] 01/01/2027 [id number] / / [id number] Catheter Hemostatic 235cm 2.8mm [address]mm [address] Latexfree - [id number] Implanted:Qty: 1 on 06/08/2024 by Belén Hernadez MD at OR [facility] [employer] ENDOSCOPY [id number] 01/30/2027 [id number] / / [id number] Valve Transcath Resilia 26mm - [id number] - [id number] Implanted:Qty: 1 on 06/19/2024 by Khang Mir MD [place] [facility] [employer] [id number] 09/27/2026 [id number] / [id number] / [id number] documented as of this encounter Visit Diagnoses Diagnosis Iron deficiency anemia due to chronic blood loss Iron deficiency anemia secondary to blood loss (chronic) History of transcatheter aortic valve replacement (TAVR) Severe aortic stenosis Aortic valve disorders S/P TAVR (transcatheter aortic valve replacement) Heart valve replaced by other means Mobitz type 2 second degree AV block Mobitz (type) II atrioventricular block documented in this encounter Advance Directives * [...] the patient have Health Care Power of Coning Machine Operator? Yes, not currently available * No Code Date Activated Date Inactivated Comments 05/01/2024 11:50 AM 05/02/2024 9:14 AM This orde r reflects the patients wishes and were consensually agreed upon. Question Answer Comments Discussion of Advance Directives occurred with: Patient Healthcare Agents on File Name Relationship Healthcare Agent [facility] p Communication Mattie Branch Adult Child First Alternat e Health Care Agent (per Health Care Power of Coning Machine Operator document) Care Teams X Ray Equipment Tester Relationship Specialty Start Date End Date September, Declan Person MD [address] [place] [address] PCP - General Family Medicine 05/20/23 documented as of this encounter
--- OUTSIDE RECORDS SUMMARY | 2024-07-31 09:05 | External Medical Summary ---
Author Name Unknown Address Unknown Organization K01:LAB[facility]ATORY [facility] [place] - [address] [facility] [place] [address] Laboratory Report Ordering Provider Test Date Status CASANDRA WALKER 07/16/2024 09:42:51 Final Observation Date Value Abnormality Reference (Units ) Status SYNC LEUKOCYTES IN BLOOD BY AUTOMATED COUNT 07/16/2024 09:42:51 10.17 4.00-10.80 (K/uL) Final Segs 07/16/2024 09:42:51 86.3 Above high normal 40.0-75.0 (%) Final Lymphs % 07/16/2024 09:42:51 4.9 Below low normal 18.0-42.0 (%) Final Monos 07/16/2024 09:42:51 6.3 1.0-11.0 (%) Final Eosinophils 07/16/2024 09:42:51 1.5 0.0-6.0 (%) Final Basos 07/16/2024 09:42:51 0.6 0.0-2.0 (%) Final Immature Granulocyte, Percent 07/16/2024 09:42:51 0.4 0.0-2.0 (%) Final Absolute Segs 07/16/2024 09:42:51 8.78 Above high normal 1.80-7.70 (K/uL) Final Lymphs, absolute 07/16/2024 09:42:51 0.50 Below low normal 1.00-4.80 (K/ul) Final Monos, Abs 07/16/2024 09:42:51 0.64 0.00-1.10 (K/uL) Final Eos, Abs 07/16/2024 09:42:51 0.15 0.00-0.70 (K/uL) Final Basos, Abs 07/16/2024 09:42:51 0.06 0.00-0.20 (K/uL) Final Immature Granulocytes, Number 07/16/2024 09:42:51 0.04 0.00-0.20 (K/uL) Final Performing Location LAB[facility]ATORY [facility] [place] - [facility] [place] [address]
--- OUTSIDE RECORDS SUMMARY | 2024-07-31 09:05 | External Medical Summary ---
Author Name Unknown Address Unknown Organization K01[place] [place] [address] [place] [address] Laboratory Report Ordering Provider Test Date Status CASANDRA WALKER 07/16/2024 09:42:51 Final Observation Date Value Abnormality Reference (Units ) Status Iron 07/16/2024 09:42:51 22 Below low normal 45-176 (ug/dL) Final Iron-binding capacity 07/16/2024 09:42:51 375 250-425 (ug/dL) Final Transferrin Sat % 07/16/2024 09:42:51 6 Below low normal 15-55 (%) Final Performing Location [facility] [place] [address] [place] [address]
--- OUTSIDE RECORDS SUMMARY | 2024-07-31 09:05 | External Medical Summary ---
Author Name Unknown Address Unknown Organization K01:[facility] [place] [address] [facility] [address] [facility] [place] [address] Laboratory Report Ordering Provider Test Date Status GERALDINE DIAZ 07/16/2024 09:42:51 Final Observation Date Value Abnormality Reference (Units ) Status BUN 07/16/2024 09:42:51 14 6-20 (mg/dL) Final Creatinine 07/16/2024 09:42:51 0.9 0.6-1.2 (mg/dL) Final Glomerular filtration rate/1.73 sq M.predicted [Volume Rate/Area] in Serum, Plasma or Blood by Creatinine-based formula (CKD-EPI) 07/16/2024 09:42:51 >90 >=60 (mL/min) Final eGFR is calculated based on the CKD-EPI 2020 equation. Sodium 07/16/2024 09:42:51 140 135-146 (m mol/L) Final Potassium 07/16/2024 09:42:51 4.6 3.5-5.1 (m mol/L) Final Cl 07/16/2024 09:42:51 104 98-107 (mm ol/L) Final CO2 07/16/2024 09:42:51 24 22-32 (mmo l/L) Final Anion gap 07/16/2024 09:42:51 12 7-15 (mmol /L) Final Glucose 07/16/2024 09:42:51 168 Above high normal 70 -120 (mg/dL) Final Albumin 07/16/2024 09:42:51 4.1 3.8-5.0 (g /dL) Final AST (Aspartate aminotransferase) 07/16/2024 09:42:51 30 10-50 (U/L) Fin al Alk Phos 07/16/2024 09:42:51 89 35-130 (U/ L) Final Bilirubin, Total 07/16/2024 09:42:51 0.8 <=1 .2 (mg/dL) Final Calcium 07/16/2024 09:42:51 9.4 8.4-10.2 ( mg/dL) Final Protein 07/16/2024 09:42:51 6.5 6.0-8.3 (g /dL) Final ALT (Alanine aminotransferase) 07/16/2024 09:42:51 28 10-50 (U/L) Vignesh vargas Performing Location [facility] [place] [address] [facility] [address]
[2024-07-31 09:15] LABS: Appearance Urine Cloudy (Clear); Bacteria Urine Automated None Seen (None Seen); Bilirubin Urine Negative (Negative); Blood Urine Trace (Negative); Color Urine Yellow; Glucose Urine UA Negative (Negative); Granular Casts Urine Present /lpf (None Prsent); Ketones Urine Negative (Negative); Leukocyte Esterase Urine Negative (Negative); Nitrite Urine Negative (Negative); Protein Urine 3+ (Negative); RBC Urine Automated 0-2 /hpf (0-2); Specific Gravity Urine 1.022 (1.000-1.030); Urobilinogen Urine Negative (Negative); WBC Urine Automated 0-5 /hpf (0-5)
[2024-07-31] MEDS: cefTRIAXone SODIUM 2,000 MG/50 ML BAG IV STA (09:31)
[2024-07-31] MEDS: SODIUM CHLORIDE 0.9% 1,000 ML IV ONE ×2 (09:32→09:51)
[2024-07-31] MEDS ORDERED: VANCOMYCIN CONSULT ACTIVE PRN (09:53)
--- NOTE | 2024-07-31 10:00 | History & Physical Report ---
Date of Service Over course of day patient improved hemodynamically. Appreciate cardiology input on atrial flutter and input regarding next steps. 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 July 31, 2024 Assessment & Plan (1) Severe sepsis: Plan: Rafael Cantu is a 69y/o M with PMHx significant for severe aortic stenosis s/p TAVR on 06/19/24, chronic LBBB, Mobitz type 2 second degree AV block s/p pacemaker placement on 07/02/24 with postoperative course complicated by episodes of sustained ventricular tachycardia requiring upgrade to an ICD on 07/04/24, HTN, HLD, mild nonobstructive CAD, DMII with diabetic nephropathy, REMBERTO on CPAP, pulmonary emphysema, longstanding iron deficiency anemia, BPH with LUTS, benign paroxysmal vertigo, glaucoma of both eyes, depression, GERD and generalized osteoarthritis who presented to the ED via EMS with complaints of fever, chills and generalized weakness. Meets severe sepsis criteria on admission given evidence of HR>90, temp>38C, leukocytosis (WBC 12k), suspected source of infection and lactic acidosis. Respiratory BioFire panel negative. CXR unremarkable. UA without overt evidence of infection. Procalcitonin 2.27. Currently with unidentified/unknown source of infection. Patient with recent invasive cardiac procedures including TAVR on 06/19/24 for severe and pacemaker placement on 07/02/24 with postoperative course complicated by episodes of sustained ventricular tachycardia requiring upgrade to an ICD on 07/04/24. Cannot rule-out possibility of underlying infected prosthetic valve endocarditis, therefore will broaden ABX coverage to IV vancomycin plus IV gentamicin and IV cefepime for now pending further evaluation including blood cultures, TTE, chest CT and CTAP. Check pacemaker interrogation. Trend lactate; set to receive 3L NSS so far. ID consult pending above additional work-up. PT/OT evaluations. (2) Elevated troponin: Plan: Likely 2/2 above infection. EKG reassuring. Will continue to trend troponin Q6H x 4 for now until flat. EKG with chest pain PRN. (3) History of transcatheter aortic valve replacement (TAVR): Plan: Severe s/p TAVR performed on 06/19/24 at [facility]. Follows with [facility] as an outpatient. TTE most recently performed on 07/19/24 with the following findings: normal LV c avity size, moderately increased concentric LV wall thickness, normal LV wall motion, LVEF of 55 to 59%, grade I DD, trivial paravalvular AV prosthesis regurgitation, borderline enlarged aortic root, mildly enlarged proximal ascending thoracic aorta and moderate mitral regurgitation. (4) Hyponatremia: Plan: Na 131 on admission. Suspect 2/2 recent poor oral intake. S/p IVF as per above. Encourage oral intake. Monitor repeat CMP in AM. (5) Thrombocytopenia: Plan: Platelet count 118k on admission. Likely 2/2 sepsis-induced thrombocytopenia. Monitor repeat CBC in AM. (6) Hyperlipidemia: (7) CAD (coronary artery disease): Plan: Continue ASA and rosuvastatin. (8) History of sustained ventricular tachycardia: (9) S/P ICD (internal cardiac defibrillator) procedure: Plan: Mobitz type 2 second degree AV block s/p pacemaker placement on 07/02/24 with postoperative course complicated by episodes of sustained ventricular t achycardia requiring upgrade to an ICD on 07/04/24. Incision site on right upper chest wall appears benign - no surrounding erythema, not warm to the touch, no visible drainage and nontender to palpation. Continue amiodarone. Other Chronic Medical Conditions: REMBERTO - Continue CPAP HS. HTN - BP stable but on lower side. Continue Toprol XL. Hold Lasix for now. DVT Prophylaxis: SQ Heparin Code Status: DNR/DNI - Per direct discussion with patient at bedside in ED. PCP: Declan Dejesus MD Disposition: Admit to PCU for further inpatient evaluation and management. Patient seen in collaboration with Dr. Mullins. Please see addendum. I spent a total of 65 minutes coordinating, documenting, and providing care for this patient excluding time spent in the performance of separately billed services or time spent by another provider/QHP. This included personally reviewing all current laboratories and imaging studies, medical reconciliation, outpatient chart review and discussion with specialists. This chart was completed in part utilizing Speech Voice Recognition Software. Grammatical errors, random word insertions, pronoun errors, and incomplete sentences are an occasional consequence of this system due to software limitations, ambient noise, and hardware issues. Any formal questions or concerns about the content, text, or information contained within the body of this dictation should be directly addressed to the provider for clarification. History of Present Illness Chief Complaint: Fever/Chills, Generalized Weakness Primary Care Provider: MD Lisa Shaylen Cantu is a 69y/o M with PMHx significant for severe aortic stenosis s/p TAVR on 06/19/24, chronic LBBB, Mobitz type 2 second degree AV block s/p pacemaker placement on 07/02/24 with postoperative course complicated by episodes of sustained ventricular tachycardia requiring upgrade to an ICD on 07/04/24, HTN, HLD, mild nonobstructive CAD, DMII with diabetic nephropathy, REMBERTO on CPAP, pulmonary emphysema, longstanding iron deficiency anemia, BPH with LUTS, benign paroxysmal vertigo, glaucoma of both eyes, depression, GERD and generalized osteoarthritis who presented to the ED via EMS with complaints of fever, chills and generalized weakness. History obtained from the patient, discussion with ED provider and associated chart review. Patient seen at bedside in the ED with Dr. Mullins. Endorses chills and generalized weakness since this past Tuesday. He has been feeling so weak to the point where he becomes extremely fatigued with minimal exertion. Mentions that he was so weak Tuesday evening that he could not even ambulate to the restroom and was unfortunately incontinent of his urine. Reports having fevers at home as well. Has also been experiencing dysuria and increased urinary frequency. Also endorsing malodorous urine, however he has not hydrating or eating well since Tuesday due to not feeling well. No hematuria. Denies any abdominal pain or diarrhea. Has not had a bowel movement since Tuesday. No reported headaches or neck stiffness. No increase in leg swelling. Denies any bodily wounds or open sores. No erythema, pain to palpation or drainage from his pacemaker/ICD insertion site on the right upper aspect of his chest; mentions this area seems to be healing well. No alcohol or tobacco use. No recreational drug use. Meets severe sepsis criteria on admission given evidence of HR > 90, temp > 38C, leukocytosis, suspected source of infection and lactic acidosis. CXR unremarkable. Initial laboratory evaluation reviewed. WBC count 12.38k with neutrophilic predominance. Thrombocytopenic with platelet count of 118k. Chronic anemia with baseline Hgb around 7-9. Lactic acidosis with initial lactate of 4.1, repeat lactate of 2.1 s/p 2L NSS in the ED. Procalcitonin 2.27; UA without overt evidence of infection. RVP negative. Noted to be hyponatremic with sodium level of 131, suspect due to poor oral intake. Hyperglycemic with BSG of 236. Elevated troponin with initial level of 31.9, repeat level of 30.7. Follows with [facility] as an outpatient. TTE most recently performed on 07/19/24 with the following findings: normal LV cavity size, moderately increased concentric LV wall thickness, normal LV wall motion, LVEF of 55 to 59%, grade I DD, trivial paravalvular AV prosthesis regurgitation, borderline enlarged aortic root, mildly enlarged proximal ascending thoracic aorta and moderate mitral regurgitation. Allergies Allergy/AdvReac Type Severity Reaction Status Date / Time nickel Allergy Unknown RASH Verified 07/04/24 15:10 tetanus toxoid, adsorbed Allergy Unknown ITCHING Verified 07/04/24 15:10 empagliflozin AdvReac Unknown URINARY Verified 07/04/24 15:10 [From Jardiance] TRACT INFECTION lisinopril AdvReac Unknown Cough Verified 07/04/24 15:10 polyethylene glycol 3350 AdvReac Unknown Verified 07/04/24 15:10 [From Miralax] Home Medications Medication Instructions Recorded Confirmed Type dutasteride 0.5 mg capsule 0.5 mg PO QAM 08/11/18 07/31/24 History metformin 1,000 mg tablet 1,000 mg PO BID 08/11/18 07/31/24 History multivitamin 1 tab PO QAM 08/11/18 07/31/24 History rosuvastatin 40 mg tablet 40 mg PO HS 08/11/18 07/31/24 History glimepiride 2 mg tablet 2 mg PO QAM 08/22/20 07/31/24 History tamsulosin 0.4 mg capsule 0.4 mg PO HS 10/01/20 07/31/24 History timolol maleate 0.25 % eye drops 2 drp OPB DAILY 11/02/23 07/31/24 History acetaminophen 500 mg tablet 1,000 mg PO DIRECTED PRN Pain 04/06/24 07/31/24 History ##0 ascorbic acid (vitamin C) 1,000 mg 1 g PO BID 07/02/24 07/31/24 History tablet (Vitamin C) aspirin 81 mg chewable tablet 81 mg PO DAILY 07/02/24 07/31/24 History cholecalciferol (vitamin D3) 125 125 mcg PO DAILY 07/02/24 07/31/24 History mcg (5,000 unit) tablet (Vitamin D3) folic acid 1 mg tablet 1 mg PO DAILY 07/02/24 07/31/24 History cyanocobalamin (vitamin B-12) 1,000 mcg PO DAILY 07/04/24 07/31/24 History 1,000 mcg tablet (Vitamin B-12) furosemide 20 mg tablet 20 mg PO DAILY PRN Weight Gain/Leg 07/04/24 07/31/24 History Swelling latanoprost 0.005 % eye drops 1 drp OPB HS 07/04/24 07/31/24 History pantoprazole 40 mg tablet,delayed 40 mg PO DAILY 07/04/24 07/31/24 History release metoprolol succinate 50 mg 50 mg PO QAM 30 days #30 tabs 07/07/24 07/31/24 Rx tablet,extended release 24 hr oxycodone 5 mg tablet 5 mg PO QID PRN SEVERE PAIN #15 07/07/24 07/31/24 Rx tabs amiodarone 200 mg tablet 200 mg PO DAILY 07/31/24 07/31/24 History Past Med/Surg History Problem List (Updated 07/31/24 @ 15:37 by Zina Acuna PA-C) Atrial flutter with rapid ventricular response S/P ICD (internal cardiac defibrillator) procedure History of sustained ventricular tachycardia CAD (coronary artery disease) History of transcatheter aortic valve replacement (TAVR) Hyponatremia Severe sepsis Elevated troponin (Acute) Elevated lactic acid level (Acute) Thrombocytopenia (Acute) Elevated procalcitonin (Acute) Leukocytosis (Acute) Fever (Acute) Generalized weakness (Acute) ICD (implantable cardioverter-defibrillator) in place Pacemaker Sustained ventricular fibrillation (Acute) Syncope and collapse (Acute) Chronic anemia Hypomagnesemia S/P TAVR (transcatheter aortic valve replacement) Ventricular tachycardia Syncope and collapse Aortic stenosis (Acute) Generalized weakness (Acute) Dizziness (Acute) Symptomatic severe aortic stenosis with normal ejection fraction Symptomatic anemia (Acute) Acute GI bleeding (Acute) Occult blood in stools Acute on chronic anemia Osteoarthritis of right knee Anemia (Acute) Medical History Aortic stenosis, severe BPH (benign prostatic hyperplasia) REMBERTO on CPAP Obesity Dyslipidemia HTN (hypertension) Diabetes mellitus, type II History of colon polyps BENIGN Scoliosis Osteoarthritis BPH (benign prostatic hyperplasia) GERD (gastroesophageal reflux disease) Not an issue recently Diabetes mellitus, type 2 Anemia Glaucoma RESOLVED S/P SURGICAL INTERVENTION Hyperlipidemia Sleep apnea CPAP, COMPLIANT. Surgical History History of tonsillectomy Hx of repair of rotator cuff "bilateral" History of total right knee replacement (TKR) History of cardiac cath ABNORMAL STRESS TEST IN 2017 - NO STENTS. 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) History of repair of rotator cuff RT/LEFT History of esophagogastroduodenoscopy (EGD) History of colonoscopy History of tooth extraction History of tonsillectomy History of adenoidectomy History of myringotomy Family History Grandmother (Maternal) Family history of diabetes mellitus Mother Family history of esophageal cancer Sister Family history of diabetes mellitus Social History Smoking Status: Former smoker Tobacco Type: Cigarettes Second Hand Exposure: No; Do You Dip or Chew Tobacco: No; Hx Alcohol Use: No Hx Substance Use: No Preferred Language: E[place] Communication Ability: Effective 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 Physical Exam Physical Exam: Please refer to Dr. Mullins's addendum for physical examination findings. Results & Data Results & Data Vital Signs (Past 12 Hours) Vital Signs Temp Pulse Pulse Resp BP BP Pulse Ox 07/31/24 09:35 90 18 136/77 95 07/31/24 08:35 36.8 C 92 H 19 138/56 L 96 07/31/24 07:46 91 H 19 133/75 95 07/31/24 07:43 94 07/31/24 07:23 98 H 07/31/24 07:15 39.3 C H 92 H 18 126/72 94 O2 Del Method 07/31/24 09:35 Room Air 07/31/24 08:35 Room Air 07/31/24 07:46 Room Air 07/31/24 07:43 Room Air 07/31/24 07:23 07/31/24 07:15 Room Air Laboratory Results Short CBC 07/31/24 Range/Units 07:40 WBC 12.38 H (4.8-10.8) K/ul Hgb 8.4 L (14.0-18.0) g/dl Hct 28.5 L (42.0-52.0) % Plt Count 118 L (130-400) K/uL BMP 07/31/24 07:40 Sodium 131 L Potassium 3.6 Chloride 97 L Carbon Dioxide 24 BUN 23 Creatinine 1.09 Glucose 236 H Calcium 8.9 Liver Function 07/31/24 Range/Units 07:40 Total Bilirubin 1.8 H (0.2-1.0) mg/dl AST 21 (13-39) U/L ALT 16 (7-52) U/L Alkaline Phosphatase 62 (34-104) U/L Albumin 4.0 (3.4-5.0) gm/dl Urine 07/31/24 Range/Units Unknown Urine Color Yellow Urine Appearance Cloudy A (Clear) Urine pH 5.0 (4.5-7.5) Ur Specific Indian 1.022 (1.000-1.030) Urine Protein 3+ H (Negative) Urine Glucose (UA) Negative (Negative) Diagnostic Findings Chest X-Ray 07/31/24 07:24 XR chest 1V portable CLINICAL HISTORY: weakness COMPARISON STUDY: 07/04/2024 FINDINGS: Stable pacemaker. Stable cardiac valve repair. Stable mild cardiomegaly without pulmonary vascular congestion. No effusion, consolidation, or pneumothorax. IMPRESSION: No acute findings. ACT 112: Negative or not required by law. Electronically signed by: Raza Velazquez M.D. 07/31/2024 8:07 AM Medications Administered Sodium Chloride (Nss) 1,000 mls @ 999 mls/hr IV .Q1H1M ONE Stop: 07/31/24 10:15 Last Admin: 07/31/24 09:51 Dose: 999 mls/hr Documented By: Infusion: 07/31/24 09:51 Dose: Infused Documented By: Admin: 07/31/24 09:32 Dose: 999 mls/hr Documented By: BRIDGETT Sodium Chloride (Nss) 1,000 mls @ 999 mls/hr IV .Q1H1M ONE Stop: 07/31/24 10:35 Last Admin: 07/31/24 09:51 Dose: 999 mls/hr Documented By: BRIDGETT Discontinued Medications Acetaminophen (Ofirmev) 1,000 mg in 100 mls @ 400 mls/hr IV NOW STA Stop: 07/31/24 07:39 Last Infusion: 07/31/24 08:01 Dose: Infused Documented By: Admin: 07/31/24 07:45 Dose: 400 mls/hr Documented By: BRIDGETT Ceftriaxone Sodium (Rocephin) 2,000 mg in 50 mls @ 100 mls/hr IV NOW STA Stop: 07/31/24 09:44 Last Admin: 07/31/24 09:31 Dose: 100 mls/hr Documented By: BRIDGETT Code Status & VTE Plan Code Status FULL CODE Supervising Physician Co-Signing Physician Notes Patient seen and examined at bedside. Symptoms have been present since Tuesday, started with fever and chills, then progressed to shallow breathing and palpitations. On arrival tachycardic and febrile. On exam, head to toe exam revealed no wounds, clear to auscultation lungs bilaterally, tachycardic, regular rhythm, systolic murmur on aortic valve consistent with TAVR. No clear source of infectious etiology, UA negative, chest xray clear, we ordered CT imaging with contrast of chest, abdomen, and pelvis to find source but no clear infectious source. Does have mediastinal lymphadenopathy. Elevated procal, fevers, tachycardia, leukocytosis with significant left shift clear sepsis pathology. Had TAVR 07/10/2024, has to be considered as source of infection given negative workup otherwise. Will start vancomycin, gentamycin and cefepime for now to cover prosthetic valve endocarditis and potential pacemaker infection (although less likely), needs 3 blood cultures total, cardiology consult, fluid resuscitation in setting of sepsis. Echo ordered, will likely need ADOLFO for further evaluation of prosthetic valve. I have seen and discussed the case with the collaborating advanced practitioner. I agree with the above H&P. I have reviewed and confirmed the patients medical history, the findings on physical examination, and the patients diagnosis and treatment plan with Raul ARECHIGA and agree with the information documented. I spent a total of 40 minutes coordinating, documenting, and providing care for this patient excluding time spent in the performance of separately billed [employer] es. All of the aforementioned completed outside of collaborating with the assigned advanced practitioner for a full treatment plan. I have reviewed the advanced practitioner's documentation, and I agree with, and take responsibility for the plan of care (6) Hyperlipidemia Hyperlipidemia type: unspecified Qualified Code(s): E78.5 - Hyperlipidemia, unspecified (7) CAD (coronary artery disease) Associated angina: unspecified whether angina present Coronary Disease- Associated Artery/Lesion type: unspecified vessel or lesion type [place] vs. transplanted heart: [place] heart Qualified Code(s): I25.10 - Atherosclerotic heart disease of [place] coronary artery without angina pectoris
[2024-07-31] MEDS: CEFEPIME 2000MG 2,000 MG/20 ML SYR IV STA (10:10)
[2024-07-31] MEDS: SODIUM CHLORIDE 0.9% 500 ML IV ONE (10:39)
[2024-07-31] MEDS: VANCOMYCIN HCL 2,000 MG in SODIUM CHLORIDE 0.9% 500 ML IV ONE (10:39)
[2024-07-31] MEDS: OPTIRAY 320 100ml IV ONE (10:55)
[2024-07-31] MEDS ORDERED: GENTAMICIN CONSULT ACTIVE PRN (11:07)
[2024-07-31] MEDS ORDERED: MAGNESIUM HYDROXIDE SUSP 30 ML UDC PO PRN (11:17)
[2024-07-31] MEDS ORDERED: ACETAMINOPHEN 325 MG TAB PO PRN (11:17)
--- NOTE | 2024-07-31 11:17 | CT Scan Report ---
CT OF THE ABDOMEN AND PELVIS WITH CONTRAST CLINICAL HISTORY: Unclear sepsis source. COMPARISON STUDY: CT of the abdomen and pelvis April 06, 2024. TECHNIQUE: Following IV administration of 94 mL of Optiray, axial images of the abdomen and pelvis we re obtained from the lung bases to the proximal femurs. Images were reviewed in the axial, sagittal, and coronal planes. IV contrast was administered without complication. Automated exposure control wa s utilized for the study. A dose lowering technique was utilized adhering to the principles of ALARA . FINDINGS: Pacer leads are partially imaged. There is mild interlobular septal thickening. No pneumato sis, free air or portal venous gas is present. Mild hepatosplenomegaly is unchanged. There are no hep atic lesions. There is no biliary or pancreatic ductal dilatation. Bilateral perinephric fluid is unc hanged. There is no hydronephrosis. Nephrograms are symmetric. No peripancreatic or pericholecystic i nfiltration is present. No abdominal or pelvic lymphadenopathy. Caliber and wall thickness of small a nd large bowel are normal. There is sigmoid diverticulosis without evidence for acute diverticulitis. The appendix is normal. No fluid collections are identified. Multilevel degenerative changes within lumbar spine are similar in appearance to prior CT. No areas of bony erosion are identified. IMPRESSION: 1. No acute process within the abdomen or pelvis. 2. No bowel obstruction. No bowel wall thickening. Sigmoid diverticulosis. No evidence for acute dive rticulitis. 3. Mild hepatosplenomegaly, unchanged. 4. Mild interstitial pulmonary edema. ACT 112: Negative or not required by law. Electronically signed by: Issa Pereira M.D. 07/31/2024 11:16 AM
--- NOTE | 2024-07-31 11:24 | CT Scan Report ---
CHEST CT WITH CONTRAST CT DOSE: 2374.74 mGy.cm HISTORY: concern for infective endocarditis/ICD infection TECHNIQUE: Multiaxial CT images of the chest were performed following the IV administration of 90 cc of Optiray. A dose lowering technique was utilized adhering to the principles of ALARA. COMPARISON STUDY: Chest x-ray earlier today. FINDINGS: Left cardiac pacemaker is present. No adjacent hematoma or abscess seen. There is minimal s carring or atelectasis in the lung bases. There is no pulmonary consolidation or pleural effusion. Th ere is mild emphysema. No specific evidence of interstitial lung disease. There are a few scattered s mall pulmonary nodules measuring up to 4 mm maximal dimension. There is mild mediastinal adenopathy w ith largest lymph node at right pretracheal node measuring 1.8 cm. There is aortic valve repair. Ther e are scattered coronary artery and aortic calcifications. There is mild scoliosis. There are mild di ffuse degenerative changes at the thoracic spine. IMPRESSION: 1. No evidence of abscess adjacent to the pacemaker battery. No pericardial effusion. 2. Mild mediastinal lymphadenopathy. No other acute findings seen. 3. Emphysema with no pneumonia or pleural effusion. There are a few small pulmonary nodules for which follow-up chest CT is suggested in one year. ACT 112: Positive. There are findings on this exam that require communication between the performing entity and the patient following Patient Test Result Information Act ([place] Act 112) guidelines. Electronically signed by: Raza Velazquez M.D. 07/31/2024 11:23 AM
[2024-07-31] MEDS ORDERED: DEXTROSE 50% 50 ML SYRINGE IV PRN (11:30)
[2024-07-31] MEDS ORDERED: GLUCOSE 40% GEL 15 GM TUBE PO PRN (11:30)
[2024-07-31] MEDS ORDERED: CARBOHYDRATES FOR HYPOGLYCEMIA PO PRN (11:30)
[2024-07-31] MEDS ORDERED: GLUCAGON FOR INJ 1 MG VIAL SQ PRN (11:30)
[2024-07-31] MEDS ORDERED: GLUCOSE 10 TAB/TUBE PO PRN (11:30)
[2024-07-31] MEDS ORDERED: PHARMACY GLYCEMIC MGMT CONSULT PRN (11:30)
--- NOTE | 2024-07-31 12:22 | Pharmacy Report ---
Pharmacy PK ABX Note - Date of Service July 31, 2024 - Assessment and Plan Assessment 69 year old M receiving Vancomycin, cefepime and gentamicin empirically for possible prosthetic valve endocarditis. Patient ~1.5 month since valve replacement. Pertinent microbiologic data includes: blood cultures pending Day # 1 of antimicrobial therapy. Plan Vancomycin * Loading dose: 2000 mg IV x 1 * Maintenance dose: 1000 mg IV every 12 hours * Regimen is predicted to achieve target AUC/ROSALIO of 400-600 mg/L.hr * Random level ordered for: 08/02/24 @0800 Gentamicin- synergy dosing * 3 mg/kg adj body weight q24 hours * Trough level ordered 08/02 @1130 prior to the 3rd dose to rule out accumulation of drug and potential for toxicity. Goal is to maintain trough levels < 1 mcg/mL. Cefepime: 2g q8 Pharmacy will continue to follow and will adjust dose/frequency as necessary. Thank you. Pharmacy has transitioned to AUC monitoring for vancomycin. AUC/ROSALIO is the preferred PK/PD target and is associated with decreased risk of nephrotoxicity compared to traditional trough targets.
[2024-07-31] MEDS: LANTUS PER UNIT CHARGE SC ONE (13:16)
[2024-07-31] MEDS: INSULIN ASPART PER UNIT CHARGE SC SCH (13:17)
[2024-07-31] MEDS: METOPROLOL SUCC 50MG EXT REL TAB PO SCH (13:18)
[2024-07-31] MEDS: CHOLECALCIFEROL 125 MCG (5,000 UNITS) TAB PO SCH (13:18)
[2024-07-31] MEDS: ASPIRIN 81 MG CHEW PO SCH (13:18)
[2024-07-31] MEDS: PANTOprazole 40 MG TAB PO SCH (13:18)
--- NOTE | 2024-07-31 14:11 | Pharmacy Report ---
Pharmacy Glycemic Short Note 2 - Date of Service July 31, 2024 - Glycemic Short BSG Results (Last 24 hours): 07/31/24 07/31/24 07:40 13:00 Glucose 236 H POC Glucose 197 H OUTPATIENT ANTIDIABETIC REGIMEN: * Metformin 1 g PO BIDM * Glimepiride 2 mg PO qAM HbA1c: 6.1% (07/05/24) ASSESSMENT: * RB is a 69 year old male admitted for sepsis secondary to currently unidentified source (concern for prosthetic valve infective endocarditis) * Blood sugar on presentation is 236 mg/dL, pharmacy consulted for glycemic management * Will give conservative Lantus dose for now and weight-based stress of 2 Novolog * Patient was hyperglycemic during last several inpatient stays here without basal insulin * Diet ordered PLAN FOR INPATIENT GLYCEMIC CONTROL: * Hold outpatient oral diabetes medications * Basal insulin * Lantus 15 units SC x 1 (~0.2 unit/kg of adjusted body weight) * Bolus insulin * NovoLog per scale ACHS or Q6hrs while NPO * Goal Range: Low 120 mg/dL - High 150 mg/dL * Correction Factor: 25 mg/dL/unit * Nutritional / Prandial insulin per carb ratio of 1 unit per 8 grams CHO consumed
[2024-07-31] MEDS: GENTAMICIN SULFATE 240 MG in DEXTROSE 5% 100 ML IV SCH (14:18)
[2024-07-31] MEDS: FINASTERIDE 5 MG TAB PO SCH (14:19)
[2024-07-31] MEDS: AMIODARONE 200 MG TAB PO SCH (14:19)
[2024-07-31] MEDS: ACETAMINOPHEN 500 MG TAB PO PRN (14:22)
--- NOTE | 2024-07-31 14:53 | Electrocardiogram Report ---
Test Reason : Blood Pressure : */* mmHG Vent. Rate : 99 BPM Atrial Rate : 99 BPM P-R Int : 178 ms QRS Dur : 130 ms QT Int : 380 ms P-R-T Axes : -4 -38 103 degrees QTcB Int : 487 ms Atrial-sensed ventricular-paced rhythm Abnormal ECG When compared with ECG of 05-Jul-2024 06:05, Vent. rate has increased by 27 bpm Confirmed by Baron Pagan ([id number]) on 07/31/2024 2:53:40 PM Referred By: Renny Mullins Confirmed By: Baron Pagan
--- NOTE | 2024-07-31 15:17 | Cardiology Consultation ---
Date of Consultation July 31, 2024 Assessment & Plan (1) Severe sepsis: (2) Atrial flutter with rapid ventricular response: (3) ICD (implantable cardioverter-defibrillator) in place: (4) History of transcatheter aortic valve replacement (TAVR): (5) History of sustained ventricular tachycardia: Plan Patient admitted for sepsis/febrile illness. Source unidentified at this time. WBC elevated. Lactate elevated. Febrile. Negative respiratory biofire. negative urine Chest CT and Abdominal CT without acute findings. Blood cultures pending. Pacemaker site without erythema. Interrogation ordered - [employer] rep notified and will be in to interrogate/check leads. Echo with preserved LVEF, normal functioning TAVR. No obvious source of vegetation. Once clinically stable/improved, consider ADOLFO. Will make NPO at midnight for possible ADOLOF on morning of 08/01 Continue broad spectrum antibiotics. New onset atrial flutter around 10:00 AM this morning. This correlates with timing of patient's worsening respiratory status/tachypnea. Has been on oral amiodarone as an outpatient due to VT. No known history of PAF per chart review. Reload amiodarone - IV amiodarone with bolus and gtt ordered. Continue metoprolol 50 mg daily Given thrombocytopenia and anemia, will hold of on IV heparin, unless atrial flutter persists > 24 hours. Supplement potassium and magnesium. ordered. Case discussed with Dr. Crenshaw. Further recommendations pending clinical response to above therapies and re- evaluation. I spent a total of 60 minutes on the date of service in preparation, delivery, and documentation of the care provided to this patient, excluding any time spent in the performance of separately billed services. Zina Acuna PA-C Department of Cardiology, [facility] This chart was completed in part utilizing Speech Voice Recognition Software. Grammatical errors, random word insertions, pronoun errors, and incomplete sentences are an occasional consequence of this system due to software limitations, ambient noise, and hardware issues. Any formal questions or concerns about the content, text, or information contained within the body of this dictation should be directly addressed to the provider for clarification. Supervising Physician Co-Signing Physician Notes I have personally performed a history and physical examination on the patient. I have reviewed the advance practitioner's documentation, and I agree with, and take responsibility for the plan of care. Complex 69-year-old patient presents with severe sepsis and new onset atrial flutter with rapid ventricular response. Recent history significant for TAVR placement and ICD implantation. Infectious source undefined at this time. Blood and urine cultures pending. Preliminary review of transthoracic echoca rdiogram without evidence of obvious vegetation. ICD surgical site nontender, intact, without erythema. Continue broad-spectrum antibiotic therapy and supportive care per internal medicine. Device interrogation pending at this time. Attempt antitachycardia pacing due to new onset atrial flutter. Initiate IV amiodarone bolus with infusion overnight. Continue metoprolol 50 mg daily. Supplement electrolytes as indicated. Maintain serum potassium greater than 4.0 and serum magnesium greater than 2.0. With new onset thrombocytopenia will hold off on IV anticoagulation unless patient remains in atrial flutter greater than 24 hours. N.p.o. except medications after midnight. I spent a total of 45 minutes on the date of service in preparation, delivery, and documentation of the care provided to this patient, excluding any time spent in the performance of separately billed services. Good Crenshaw DO, [facility] History of Present Illness Reason for Consultation: Sepsis; Recent TAVR; Pacemaker implant Requesting Physician: Reji Palomino Attending Physician: Dr. Crenshaw History of Present Illness Patient is a complex 69 year old male who presented to [facility] today with fevers, weakness, chills and malaise. Symptoms started on Tuesday night with chills/rigors. Poor PO intake of fluids/nutrition. Today he had trouble ambulating from bed to bathroom and came to the ER for evaluation. Since admission, found to have elevated WBC, elevated lactate. Meets sepsis criteria. No obvious source of infection by CT scans. Urine negative. Received IV fluids in the ER, now more tachycardiac and tachypneic. At 10:00 AM he went into atrial flutter RVR at 115 bmp. Blood cultures drawn. Started on broad spectrum antibiotics. Echo with preserved LVEF, no obvious vegetation on TAVR. Complex history includin. Severe aortic stenosis s/p TAVR # 26mm Restrepo Roxana S3 Ultra Resilia valve (post dilated with one additional cc of volume) 06/19/24 2. Iron deficiency anemia 3. LBBB 4. HLD 5. DM 2 6. HTN 7. REMBERTO on CPAP 8. 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 Allergies Allergy/AdvReac Type Severity Reaction Status Date / Time nickel Allergy Unknown RASH Verified 07/04/24 15:10 tetanus toxoid, adsorbed Allergy Unknown ITCHING Verified 07/04/24 15:10 empagliflozin AdvReac Unknown URINARY Verified 07/04/24 15:10 [From Jardiance] TRACT INFECTION lisinopril AdvReac Unknown Cough Verified 07/04/24 15:10 polyethylene glycol 3350 AdvReac Unknown Verified 07/04/24 15:10 [From Miralax] Home Medications Medication Instructions Recorded Confirmed Type dutasteride 0.5 mg capsule 0.5 mg PO QAM 08/11/18 07/31/24 History metformin 1,000 mg tablet 1,000 mg PO BID 08/11/18 07/31/24 History multivitamin 1 tab PO QAM 08/11/18 07/31/24 History rosuvastatin 40 mg tablet 40 mg PO HS 08/11/18 07/31/24 History glimepiride 2 mg tablet 2 mg PO QAM 08/22/20 07/31/24 History tamsulosin 0.4 mg capsule 0.4 mg PO HS 10/01/20 07/31/24 History timolol maleate 0.25 % eye drops 2 drp OPB DAILY 11/02/23 07/31/24 History acetaminophen 500 mg tablet 1,000 mg PO DIRECTED PRN Pain 04/06/24 07/31/24 History ##0 ascorbic acid (vitamin C) 1,000 mg 1 g PO BID 07/02/24 07/31/24 History tablet (Vitamin C) aspirin 81 mg chewable tablet 81 mg PO DAILY 07/02/24 07/31/24 History cholecalciferol (vitamin D3) 125 125 mcg PO DAILY 07/02/24 07/31/24 History mcg (5,000 unit) tablet (Vitamin D3) folic acid 1 mg tablet 1 mg PO DAILY 07/02/24 07/31/24 History cyanocobalamin (vitamin B-12) 1,000 mcg PO DAILY 07/04/24 07/31/24 History 1,000 mcg tablet (Vitamin B-12) furosemide 20 mg tablet 20 mg PO DAILY PRN Weight Gain/Leg 07/04/24 07/31/24 History Swelling latanoprost 0.005 % eye drops 1 drp OPB HS 07/04/24 07/31/24 History pantoprazole 40 mg tablet,delayed 40 mg PO DAILY 07/04/24 07/31/24 History release metoprolol succinate 50 mg 50 mg PO QAM 30 days #30 tabs 07/07/24 07/31/24 Rx tablet,extended release 24 hr oxycodone 5 mg tablet 5 mg PO QID PRN SEVERE PAIN #15 07/07/24 07/31/24 Rx tabs amiodarone 200 mg tablet 200 mg PO DAILY 07/31/24 07/31/24 History Patient History Medical History Aortic stenosis, severe BPH (benign prostatic hyperplasia) REMBERTO on CPAP Obesity Dyslipidemia HTN (hypertension) Diabetes mellitus, type II History of colon polyps BENIGN Scoliosis Osteoarthritis BPH (benign prostatic hyperplasia) GERD (gastroesophageal reflux disease) Not an issue recently Diabetes mellitus, type 2 Anemia Glaucoma RESOLVED S/P SURGICAL INTERVENTION Hyperlipidemia Sleep apnea CPAP, COMPLIANT. Surgical History History of tonsillectomy Hx of repair of rotator cuff "bilateral" History of total right knee replacement (TKR) History of cardiac cath ABNORMAL STRESS TEST IN 2017 - NO STENTS. 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) History of repair of rotator cuff RT/LEFT History of esophagogastroduodenoscopy (EGD) History of colonoscopy History of tooth extraction History of tonsillectomy History of adenoidectomy History of myringotomy Family History Grandmother (Maternal) Family history of diabetes mellitus Mother Family history of esophageal cancer Sister Family history of diabetes mellitus Social History Smoking Status: Former smoker Tobacco Type: Cigarettes Second Hand Exposure: No; Do You Dip or Chew Tobacco: No; Hx Alcohol Use: No Hx Substance Use: No Preferred Language: Paraguayan Communication Ability: Effective Tenterer Required: No Beliefs That Will Affect Care: None marital status: Current Living Situation: Alone Current Living Situation Comment: currently in rehab facility Feels Safe at Home: Yes Assistive Devices: None Review of Systems Review of Systems: All systems reviewed & are unremarkable except as noted in HPI & below Physical Exam Constitutional: WD/WN, vitals as above + ill appearing and + obese Neck: + thick neck Respiratory: + labored breathing, + cough and + tachy pneic Auscultation: + diminished lung sounds and + wheezes; no crackles and no rales Cardiovascular: Rate/Rhythm: regular rhythm and + tachycardic Heart Sounds: normal S1 and normal S2; no murmur Vessels: no JVD Extremities: no edema Gastrointestinal (Abdomen): normal bowel sounds, soft, nontender, no hepatosplenomegaly Neurologic: PERRL, EOMI, accommodation nl, no face palsy, no dysarthria Results & Data Vital Signs (Past 12 Hours) Vital Signs Temp Pulse Pulse Resp BP BP Pulse Ox 07/31/24 14:21 38.5 C H 115 H 28 H 142/72 H 94 07/31/24 10:11 37.1 C 105 H 18 133/66 94 07/31/24 09:35 90 18 136/77 95 07/31/24 08:35 36.8 C 92 H 19 138/56 L 96 07/31/24 07:46 91 H 19 133/75 95 07/31/24 07:43 94 07/31/24 07:23 98 H 07/31/24 07:15 39.3 C H 92 H 18 126/72 94 O2 Del Method O2 Flow Rate 07/31/24 14:21 Nasal Cannula 2 07/31/24 10:11 Room Air 07/31/24 09:35 Room Air 07/31/24 08:35 Room Air 07/31/24 07:46 Room Air 07/31/24 07:43 Room Air 07/31/24 07:23 07/31/24 07:15 Room Air Laboratory Results Cardiac Enzymes 07/31/24 07/31/24 Range/Units 07:40 09:24 AST 21 (13-39) U/L Troponin I High Sens 31.9 H 30.7 H (0-20) pg/ml Coagulation 07/31/24 Range/Units 07:40 PT 12.6 H (9.0-12.0) Seconds CBC 07/31/24 Range/Units 07:40 WBC 12.38 H (4.8-10.8) K/ul RBC 3.55 L (4.70-6.10) M/uL Hgb 8.4 L (14.0-18.0) g/dl Hct 28.5 L (42.0-52.0) % Plt Count 118 L (130-400) K/uL Neut # (Auto) 11.46 H (1.40-6.50) K/uL Lymph # (Auto) 0.21 L (1.20-3.40) K/uL [place] # (Auto) 0.60 H (0.11-0.59) K/uL Eos # (Auto) 0.00 (0.00-0.50) K/uL Baso # (Auto) 0.03 (0.00-0.20) K/uL Comprehensive Metabolic Panel 07/31/24 Range/Units 07:40 Sodium 131 L (136-145) mmol/L Potassium 3.6 (3.5-5.1) mmol/L Chloride 97 L (98-107) mmol/L Carbon Dioxide 24 (21-32) mmol/L BUN 23 (6-23) mg/dl Creatinine 1.09 (0.6-1.4) mg/dl Glucose 236 H (70-99(Fasting)) mg/dl Calcium 8.9 (8.6-10.3) mg/dl AST 21 (13-39) U/L ALT 16 (7-52) U/L Alkaline Phosphatase 62 (34-104) U/L Total Protein 6.7 (6.0-8.3) gm/dl Albumin 4.0 (3.4-5.0) gm/dl Intake and Output 07/31/24 07/31/24 07/31/24 06:59 14:59 22:59 Intake Total 2966.35 / 3072.35 106 / 3072.35 Output Total 650 / 650 Balance 2316.35 / 2422.35 106 / 2422.35 Intake: IV 2966.35 / 3072.35 106 / 3072.35 Acetaminophen 1,000 mg In 100 100 / 100 ml @ 400 mls/hr IV NOW STA Rx#: [id number] Gentamicin Sulfate 240 mg In 106 / 106 Dextrose 5% 100 ml @ 100 mls/hr IV Q24H [facility] Rx#:[id number] Sodium Chloride 0.9% 500 ml @ 2816.35 / 2816.35 999 mls/hr IV .Q31M ONE Rx#: [id number] cefTRIAXone SODIUM 2,000 mg In 50 / 50 50 ml @ 100 mls/hr IV NOW STA Rx#:[id number] Output: Urine 650 / 650 Other: Weight 103 kg Weight [facility] Weight 08/01/24 06:59 Weight 103 kg Diagnostic Findings Telemetry reviewed: On admission he presented with atrial sensed, ventricular paced rhythm. Around 10:00 patient developed atrial flutter with RVR at 115 bmp. EKG reviewed from admission: Atrial sensed ventricular paced rhythm. Repeat EKG reviewed from this afternoon: Atrial flutter with 2:1 AV conduction LAD Non specific intraventricular conduction delay Echo report reviewed dated 07/31/24: LVEF 55-60% Moderate concentric LVH 26 mm Edward Roxana TAVR bioprosthesis is present No significant AI Moderate MAC Mild TR Estimated pulm pressure is 43 mmHg No evidence of vegetation within limitations of imaging modality Chest X-Ray 07/31/24 07:24 XR chest 1V portable CLINICAL HISTORY: weakness COMPARISON STUDY: 07/04/2024 FINDINGS: Stable pacemaker. Stable cardiac valve repair. Stable mild cardiomegaly without pulmonary vascular congestion. No effusion, consolidation, or pneumothorax. IMPRESSION: No acute findings. Abdomen/Pelvis CT 07/31/24 10:43 IMPRESSION: 1. No acute process within the abdomen or pelvis. 2. No bowel obstruction. No bowel wall thickening. Sigmoid diverticulosis. No evidence for acute diverticulitis. 3. Mild hepatosplenomegaly, unchanged. 4. Mild interstitial pulmonary edema. ACT 112: Negative or not required by law. Electronically signed by: Issa Pereira M.D. 07/31/2024 11:[address] 07/31/24 10:[address] WITH CONTRAST CT DOSE: 2374.74 mGy.cm HISTORY: concern for infective endocarditis/ICD infection TECHNIQUE: Multiaxial CT images of the chest were performed following the IV administration of 90 cc of Optiray. A dose lowering technique was utilized adhering to the principles of ALARA. COMPARISON STUDY: Chest x-ray earlier today. FINDINGS: Left cardiac pacemaker is present. No adjacent hematoma or abscess seen. There is minimal scarring or atelectasis in the lung bases. There is no pulmonary consolidation or pleural effusion. There is mild emphysema. No specific evidence of interstitial lung disease. There are a few scattered small pulmonary nodules measuring up to 4 mm maximal dimension. There is mild mediastinal adenopathy with largest lymph node at right pretracheal node measuring 1.8 cm. There is aortic valve repair. There are scattered coronary artery and aortic calcifications. There is mild scoliosis. There are mild diffuse degenerative changes at the thoracic spine. IMPRESSION: 1. No evidence of abscess adjacent to the pacemaker battery. No pericardial effusion. 2. Mild mediastinal lymphadenopathy. No other acute findings seen. 3. Emphysema with no pneumonia or pleural effusion. There are a few small pulmonary nodules for which follow-up chest CT is suggested in one year. ACT 112: Positive. There are findings on this exam that require communication between the performing entity and the patient following Patient Test Result Information Act ([place] Act 112) guidelines. Electronically signed by: Raza Velazquez M.D. 07/31/2024 11:23 AM Medications Administered Current Inpatient Medications Acetaminophen (Acetaminophen 500 Mg Tab) 1,000 mg PO Q8H PRN PRN Reason: Pain Stop: 08/30/24 11:16 Last Admin: 07/31/24 14:22 Dose: 1,000 mg Amiodarone HCl (Amiodarone 200 Mg Tab) 200 mg PO DAILY DANYEL Stop: 08/30/24 11:44 Last Admin: 07/31/24 14:19 Dose: 200 mg Aspirin (Aspirin 81 Mg Chew) 81 mg PO DAILY DANYEL Stop: 08/30/24 11:44 Last Admin: 07/31/24 13:18 Dose: 81 mg Cyanocobalamin (Cyanocobalamin (B-12) 500 Mcg Tablet) 1,000 mcg PO DAILY DANYEL Stop: 08/31/24 08:59 Dextrose (Dextrose 50% 50 Ml Syringe) 25 - 50 ml IV UD PRN; Protocol PRN Reason: Hypoglycemia Protocol Stop: 08/30/24 11:29 Finasteride (Finasteride 5 Mg Tab) 5 mg PO QAM DANYEL Stop: 08/30/24 11:44 Last Admin: 07/31/24 14:19 Dose: 5 mg Folic Acid (Folic Acid 1 Mg Tab) 1 mg PO DAILY DANYEL Stop: 08/31/24 08:59 Glucagon (Glucagon For Inj 1 Mg Vial) 1 mg SQ UD PRN; Protocol PRN Reason: Hypoglycemia Protocol Stop: 08/30/24 11:29 Glucose (Glucose 40% Gel 15 Gm Tube) 15 - 30 gm PO UD PRN; Protocol PRN Reason: Hypoglycemia Protocol Stop: 08/30/24 11:29 Glucose (Glucose 10 Tab/Tube) 4 - 8 tab PO UD PRN; Protocol PRN Reason: Hypoglycemia Protocol Stop: 08/30/24 11:29 Heparin Sodium (Porcine) (Heparin Sod 5,000 Unit/0.5 Ml Vial) 5,000 units SQ Q8 DANYEL Stop: 08/30/24 13:59 Last Admin: 07/31/24 15:28 Dose: 5,000 units Lactated Ringer's (Lr) 1,000 mls @ 80 mls/hr IV .[id number] DANYEL Stop: 08/01/24 11:14 Cefepime HCl (Maxipime 2000mg) 2,000 mg in 20 mls @ 5 mls/min IV Q8H DANYEL Stop: 09/11/24 17:59 Gentamicin Sulfate 240 mg/ (Dextrose) 106 mls @ 100 mls/hr IV Q24H DANYEL Stop: 09/11/24 12:29 Last Infusion: 07/31/24 15:22 Dose: Infused Vancomycin HCl (Vancomycin Hcl) 1,000 mg in 270 mls @ 200 mls/hr IV Q12H DANYEL Stop: 09/11/24 22:59 Amiodarone HCl/Dextrose (Nexterone / D5w) 360 mg in 200 mls @ 33.333 mls/hr IV ONE ONE Stop: 07/31/24 21:33 Amiodarone HCl/Dextrose (Nexterone / D5w) 360 mg in 200 mls @ 16.667 mls/hr IV .Q12H DANYEL Stop: 08/30/24 21:29 Insulin Aspart (Insulin Aspart Per Unit Charge) 0 units SC ACHS DANYEL Stop: 08/30/24 11:29 Last Admin: 07/31/24 13:17 Dose: 4 units Lactobacillus Acidophilus (Advanced Probiotic 625 Mg Capsule) 1,250 mg PO DAILY DANYEL Stop: 08/30/24 14:14 Last Admin: 07/31/24 15:28 Dose: 1,250 mg Latanoprost (Latanoprost 0.005% Op Soln 2.5 Ml Btl) 1 drops OPB HS DANYEL Stop: 08/30/24 20:59 Magnesium Hydroxide (Magnesium Hydroxide Susp 30 Ml Udc) 30 ml PO Q12H PRN PRN Reason: Constipation Stop: 08/30/24 11:16 Metoprolol Succinate (Metoprolol Succ 50mg Ext Rel Tab) 50 mg PO QAM DANYEL Stop: 08/30/24 11:44 Last Admin: 07/31/24 13:18 Dose: 50 mg Miscellaneous (Carbohydrates For Hypoglycemia ) 15 - 30 gm PO UD PRN PRN Reason: Hypoglycemia Protocol Stop: 08/30/24 11:29 Miscellaneous Information (Vancomycin Consult Active) 1 each N/A UD PRN PRN Reason: Consult Stop: 08/30/24 09:52 Miscellaneous Information (Gentamicin Consult Active) 1 each N/A UD PRN PRN Reason: Consult Stop: 08/30/24 11:06 Miscellaneous Information (Pharmacy Glycemic Mgmt Consult) 1 each N/A UD PRN PRN Reason: Consult Stop: 08/30/24 11:29 Multivitamins (Multivitamin Tab) [facility] Stop: 08/31/24 08:59 Pantoprazole Sodium (Pantoprazole 40 Mg Tab) 40 mg PO DAILY DANYEL Stop: 08/30/24 11:44 Last Admin: 07/31/24 13:18 Dose: 40 mg Rosuvastatin Calcium (Rosuvastatin Calcium 20 Mg Tab) 40 mg PO HS DANYEL Stop: 08/30/24 20:59 Tamsulosin HCl (Tamsulosin Hcl 0.4 Mg Cap) 0.4 mg PO HS DANYEL Stop: 08/30/24 20:59 Vitamin D (Cholecalciferol 125 Mcg (5,000 Units) Tab) 125 mcg PO DAILY DANYEL Stop: 08/30/24 11:44 Last Admin: 07/31/24 13:18 Dose: 125 mcg
[2024-07-31] MEDS ORDERED: 0.2 MICRON FILTER SET 1 EACH IV STA (15:24)
[2024-07-31] MEDS: HEPARIN SOD 5,000 UNIT/0.5 ML VIAL SQ SCH (15:28)
[2024-07-31] MEDS: ADVANCED PROBIOTIC 625 MG CAPSULE PO SCH (15:28)
[2024-07-31] MEDS: AMIODARONE / D5W 150 MG/100 ML BAG IV STA (15:52)
[2024-07-31 16:03] LABS: Potassium 3.7 mmol/L (3.5-5.1)
[2024-07-31 16:10] LABS: Troponin I High Sensitivity 37.8 pg/ml (0-20)
[2024-07-31] MEDS: AMIODARONE / D5W 360 MG/200 ML BAG IV ONE (16:15)
[2024-07-31] MEDS: LACTATED RINGER'S 1,000 ML IV SCH (16:30)
[2024-07-31] MEDS: MAGNESIUM SULFATE / D5W 1 GM/100 ML BAG IV SCH (17:01)
[2024-07-31] MEDS: POTASSIUM CHLORIDE CRTAB 20 MEQ TABCR PO ONE (17:01)
[2024-07-31] MEDS: CEFEPIME 2000MG 2,000 MG/20 ML SYR IV SCH (19:41)
[2024-07-31] MEDS: ROSUVASTATIN CALCIUM 20 MG TAB PO SCH (20:44)
[2024-07-31] MEDS: TAMSULOSIN HCL 0.4 MG CAP PO SCH (20:44)
[2024-07-31 21:39] LABS: A calco-baum cmplx NotReported Not Detected (NotDetected); Bact fragilis Not Reported Not Detected (NotDetected); Blood Culture Id Panel See PCR Comment (NotDetected); C auris Not Reported Not Detected (NotDetected); Calbicans Not Reported Not Detected (NotDetected); Candida glabrata Not Reported Not Detected (NotDetected); Candida krusei Not Reported Not Detected (NotDetected); Cneoformans/gatti Not Reported Not Detected (NotDetected); Cparapsilosis Not Reported Not Detected (NotDetected); E cloacae compx Not Reported Not Detected (NotDetected); Efaecalis Not Reported DETECTED (NotDetected); Efaecium Not Reported Not Detected (NotDetected); Enterobacterales Not Reported Not Detected (NotDetected); Escherichia coli Not Reported Not Detected (NotDetected); H influenzae Not Reported Not Detected (NotDetected); K aerogenes Not Reported Not Detected (NotDetected); Koxytoca Not Reported Not Detected (NotDetected); Kpneumoniae grp Not Reported Not Detected (NotDetected); Lmonocyt Not Reported Not Detected (NotDetected); N meningitidis Not Reported Not Detected (NotDetected); P aeruginosa Not Reported Not Detected (NotDetected); Proteus spp Not Reported Not Detected (NotDetected); Salmonella spp Not Reported Not Detected (NotDetected); Staph lugdunensis Not Reported Not Detected (NotDetected); Staph spp. Not Reported Not Detected (NotDetected); Staphaureus Not Reported Not Detected (NotDetected); Staphepi Not Reported Not Detected (NotDetected); Stenmaltophilia Not Reported Not Detected (NotDetected); Strep agal(GrpB) Not Reported Not Detected (NotDetected); Strep pneum Not Reported Not Detected (NotDetected); Strep pyog (GrpA) Not Reported Not Detected (NotDetected); Strep spp Not Reported Not Detected (NotDetected); VanAB Resistant Gene VRE Not Detected (NotDetected)
[2024-07-31 21:56] LABS: Enterococcus faecalis DETECTED (NotDetected)
[2024-07-31] MEDS: AMIODARONE / D5W 360 MG/200 ML BAG IV SCH (22:13)
[2024-07-31] MEDS: LATANOPROST 0.005% OP SOLN 2.5 ML BTL OPB SCH (22:13)
[2024-07-31] MEDS: VANCOMYCIN HCL 1,000 MG/270 ML BAG IV SCH (22:59)
[2024-08-01 06:33] LABS: Albumin Globulin Ratio 1.3 (0.9-2); Albumin Level 3.2 gm/dl (3.4-5.0); BUN Creatinine Ratio 20.2 (10-20); Bilirubin,Total 0.9 mg/dl (0.2-1.0); Calcium 8.4 mg/dl (8.6-10.3); Creatinine Clr Calc Pharmacy 86.3 ml/min; Globulin 2.5 gm/dl (2.5-4.0); Magnesium 2.4 mg/dl (1.7-2.4); Potassium 3.7 mmol/L (3.5-5.1); Total Protein 5.7 gm/dl (6.0-8.3)
[2024-08-01 06:38] LABS: Troponin I High Sensitivity 26.1 pg/ml (0-20)
[2024-08-01 06:44] LABS: Hematocrit (blood only) 24.8 % (42.0-52.0); Hemoglobin 7.5 g/dl (14.0-18.0); Mean Corpuscular Hemoglobin 23.9 pg (25.0-34.0); Mean Corpuscular Hgb Conc 30.2 g/dL (32.0-36.0); Mean Platelet Volume 11.5 fL (9.4-12.4); Platelet Count 87 K/uL (130-400); RDW Coefficient of Variation 20.1 % (11.5-14.5); RDW Standard Deviation 56.5 fL (36.4-46.3); Red Blood Count 3.14 M/uL (4.70-6.10); White Blood Count 4.76 K/ul (4.8-10.8)
[2024-08-01 06:46] LABS: Anisocytosis Present; Basophils # (auto) 0.03 K/uL (0.00-0.20); Basophils % (auto) 0.6 %; Eosinophils # (auto) 0.02 K/uL (0.00-0.50); Eosinophils % (auto) 0.4 %; Immature Granulocytes # (auto) 0.02 K/uL (0.01-0.20); Immature Granulocytes % (auto) 0.4 %; Lymphocytes # (auto) 0.23 K/uL (1.20-3.40); Lymphocytes % (auto) 4.8 %; Monocytes # (auto) 0.52 K/uL (0.11-0.59); Monocytes % (auto) 10.9 %; Neutrophils # (auto) 3.94 K/uL (1.40-6.50); Neutrophils % (auto) 82.9 %; Tear Drop Cells 1+
[2024-08-01] MEDS: MULTIVITAMIN TAB PO SCH (08:36)
[2024-08-01] MEDS: CYANOCOBALAMIN (B-12) 500 MCG TABLET PO SCH (08:36)
[2024-08-01] MEDS: LANTUS PER UNIT CHARGE SC ONE ×2 (08:36→20:28)
[2024-08-01] MEDS: FOLIC ACID 1 MG TAB PO SCH (08:37)
[2024-08-01] MEDS ORDERED: AMIODARONE 200 MG TAB PO SCH (09:00)
[2024-08-01] MEDS: AMIODARONE IV BOLUS & DRIP IV STA (09:13)
[2024-08-01] MEDS: STAT IV Infusion **Titration per Protocol STA (09:13)
[2024-08-01] MEDS: VANCOMYCIN HCL 1,250 MG in SODIUM CHLORIDE 0.9% 250 ML IV SCH (09:53)
--- NOTE | 2024-08-01 10:44 | Pharmacy Report ---
Pharmacy Glycemic Short Note 2 - Date of Service August 01, 2024 - Glycemic Short BSG Results (Last 24 hours): 07/31/24 07/31/24 07/31/24 13:00 17:39 20:04 Glucose POC Glucose 197 H 219 H 227 H 08/01/24 08/01/24 05:38 07:14 Glucose 170 H POC Glucose 188 H OUTPATIENT ANTIDIABETIC REGIMEN: * Metformin 1 g PO BIDM * Glimepiride 2 mg PO qAM HbA1c: 6.1% (07/05/24) ASSESSMENT: 08/01/24: * Blood sugars elevated yesterday, ranging 197-227 mg/dL following consult * Received 32 units of insulin (15 units of basal and 17 units of prandial/correctional bolus) * NPO today for ADOLFO to assess for prosthetic valve IE - currently on broad spectrum antimicrobial regimen (vanco, gentamicin, and cefepime) * Currently receiving amiodarone gtt (mixed in dextrose) 07/31/24: * RB is a 69 year old male admitted for sepsis secondary to currently unidentified source (concern for prosthetic valve infective endocarditis) * Blood sugar on presentation is 236 mg/dL, pharmacy consulted for glycemic management * Will give conservative Lantus dose for now and weight-based stress of 2 Novolog * Patient was hyperglycemic during last several inpatient stays here without basal insulin * Diet ordered PLAN FOR INPATIENT GLYCEMIC CONTROL: * Hold outpatient oral diabetes medications * Basal insulin * Lantus 10 units SC x 1 this morning while NPO * Lantus 0-5-10 units SC HS (see EHR for details) * Bolus insulin * NovoLog per scale ACHS or Q6hrs while NPO * Goal Range: Low 120 mg/dL - High 150 mg/dL * Correction Factor: 20 mg/dL/unit * Nutritional / Prandial insulin per carb ratio of 1 unit per 7 grams CHO consumed
[2024-08-01] MEDS ORDERED: VANCOMYCIN HCL IV SCH (11:00)
[2024-08-01] MEDS ORDERED: HEPARIN 25000 UNIT/500 ML D5W 25,000 UNITS/500 ML BAG IV SCH (11:15)
[2024-08-01] MEDS: Heparin IV Adult Wt-Based Low-Dose *NO* INITIAL Bolus Protocol IV SCH (11:19)
--- NOTE | 2024-08-01 11:39 | Electrocardiogram Report ---
Test Reason : Blood Pressure : */* mmHG Vent. Rate : 113 BPM Atrial Rate : 226 BPM P-R Int : * ms QRS Dur : 122 ms QT Int : 318 ms P-R-T Axes : -82 -32 50 degrees QTcB Int : 436 ms Atrial flutter with 2:1 A-V conduction Left axis deviation Non-specific intra-ventricular conduction delay Abnormal ECG When compared with ECG of 31-Jul-2024 07:16, Atrial flutter has replaced Electronic ventricular pacemaker Confirmed by Baron Pagan ([id number]) on 08/01/2024 11:39:41 AM Referred By: Renny Mullins Confirmed By: Baron Pagan
--- NOTE | 2024-08-01 11:42 | Electrocardiogram Report ---
Test Reason : Blood Pressure : */* mmHG Vent. Rate : 90 BPM Atrial Rate : 227 BPM P-R Int : * ms QRS Dur : 108 ms QT Int : 354 ms P-R-T Axes : * -27 24 degrees QTcB Int : 433 ms Atrial flutter with variable A-V block Inferior infarct , age undetermined Abnormal ECG When compared with ECG of 31-Jul-2024 15:27, (unconfirmed) Nonspecific T wave abnormality no longer evident in Anterior leads Confirmed by Baron Pagan ([id number]) on 08/01/2024 11:41:39 AM Referred By: Renny Mullins Confirmed By: Baron Pagan
--- NOTE | 2024-08-01 12:28 | Hospitalist Progress Note ---
Date of Service August 01, 2024 Assessment & Plan (1) Severe sepsis: Plan: Rafael Cantu is a 69y/o M with PMHx significant for severe aortic stenosis s/p TAVR on 06/19/24, chronic LBBB, Mobitz type 2 second degree AV block s/p pacemaker placement on 07/02/24 with postoperative course complicated by episodes of sustained ventricular tachycardia requiring upgrade to an ICD on 07/04/24, HTN, HLD, mild nonobstructive CAD, DMII with diabetic nephropathy, REMBERTO on CPAP, p ulmonary emphysema, longstanding iron deficiency anemia, BPH with LUTS, benign paroxysmal vertigo, glaucoma of both eyes, depression, GERD and generalized osteoarthritis who presented to the ED via EMS with complaints of fever, chills and generalized weakness. Patient with recent invasive cardiac procedures including TAVR on 06/19/24 for severe and pacemaker placement on 07/02/24 with postoperative course complicated by episodes of sustained ventricular tachycardia requiring upgrade to an ICD on 07/04/24. Severe sepsis Suspected infective endocarditis Enterococcus bacteremia Lactic acidosis --CT chest showed mild mediastinal lymphadenopathy, emphysema, few small pulmonary nodules but otherwise no acute process -CT abdomen showed-sigmoid diverticulosis, mild hepatosplenomegaly, no other ac joyce process --Blood cultures: Enterococcus faecalis, gram-positive cocci in chains --BioFire negative --ECHO: No significant change when compared to prior study. EF 55 to 60%. Moderate concentric LVH. TAVR bioprosthesis is present. No significant bioprosthetic aortic valve regurgitation. Gradient is normal for prosthetic arctic valve. Moderate mitral annular calcification. Mild tricuspid re gurgitation. Estimated systolic blood pressure 43 mmHg. No evidence of vegetation within the limitations of imaging modality. --ICD site nonerythematous Lactic acidosis resolved with IV fluids Empirically on broad-spectrum antibiotics with vancomycin, cefepime, gentamicin Infectious disease consulted Appreciate cardiology input Plan for ADOLFO today Pancytopenia Currently no signs of bleeding Monitor CBC closely Atrial flutter with rapid ventricular response--POA ICD interrogation Continue amiodarone, metoprolol Was reloaded with IV amiodarone Not on anticoagulation due to anemia, thrombocytopenia Appreciate cardiology help (2) Elevated troponin: Plan: Likely demand ischemia secondary to sepsis, atrial flutter RVR (3) History of transcatheter aortic valve replacement (TAVR): Plan: Severe s/p TAVR performed on 06/19/24 at [facility]. Follows with [facility] as an outpatient. (4) Hyponatremia: Plan: Resolved with IV fluids Monitor sodium levels (5) Thrombocytopenia: Plan: Likely secondary to sepsis Currently no acute bleeding issues Monitor platelet count (6) Hyperlipidemia: Plan: Continue statin (7) CAD (coronary artery disease): Plan: Continue aspirin, metoprolol, statin (8) History of sustained ventricular tachycardia: (9) S/P ICD (internal cardiac defibrillator) procedure: Plan: Mobitz type 2 second degree AV block s/p pacemaker placement on 07/02/24 with postoperative course complicated by episodes of sustained ventricular tachycardia requiring upgrade to an ICD on 07/04/24. Other Chronic Medical Conditions: REMBERTO - Continue CPAP HS. HTN -continue current medications, monitor blood pressure DVT Px SQ Heparin Code Status: DNR/DNI Disposition: PT OT prior to discharge Admission and Anticipated Discharge Date Admission Date: July 31, 2024 Subjective Patient is seen and examined at bedside States feeling a lot better today Chills, dyspnea, chest tightness resolved Offers no new complaints today Discussed with cardiology today Denies any nausea, vomiting, abdominal pain, dizziness Review of Systems Review of Systems: All systems reviewed & are unremarkable except as noted in Subjective Physical Exam Physical Exam: Physical Exam: Vitals signs as noted above General Appearance:Obese, no apparent distress Head: normocephalic, Atraumatic Eyes: normal inspection, EOMI Neck: supple, Trachea midline Respiratory/Chest: Decreased breath sounds, CTA, No accessory muscle use Cardiovascular: S1, S2, no murmur Abdomen/GI:Soft, Non tender, Bowel sounds present Extremities/Musculoskeletal:normal inspection, 1+ edema Neurologic/Psych:AAOX3, grossly no focal neurological deficits Skin: normal color, warm Results & Data Results & Data Vital Signs (Past 12 Hours) Vital Signs Temp Pulse Pulse Resp BP Pulse Ox Pulse Ox 08/01/24 11:37 36.8 C 79 19 110/69 95 08/01/24 11:17 93 08/01/24 10:02 08/01/24 07:43 97 H 08/01/24 07:12 36.8 C 94 H 20 122/64 93 08/01/24 03:22 98 H 21 94 08/01/24 02:39 36.6 C 100 H 18 119/70 94 O2 Del Method O2 Del Method FiO2 08/01/24 11:37 Room Air 08/01/24 11:17 Room Air 08/01/24 10:02 Room Air 08/01/24 07:43 08/01/24 07:12 Room Air 08/01/24 03:22 21 08/01/24 02:39 BiPAP Laboratory Results Short CBC 08/01/24 Range/Units 05:38 WBC 4.76 L D (4.8-10.8) K/ul Hgb 7.5 L (14.0-18.0) g/dl Hct 24.8 L (42.0-52.0) % Plt Count 87 L (130-400) K/uL BMP 07/31/24 08/01/24 15:30 05:38 Sodium 136 Potassium 3.7 3.7 Chloride 106 Carbon Dioxide 24 BUN 19 Creatinine 0.94 Glucose 170 H Calcium 8.4 L Liver Function 08/01/24 Range/Units 05:38 Total Bilirubin 0.9 D (0.2-1.0) mg/dl AST 21 (13-39) U/L ALT 16 (7-52) U/L Alkaline Phosphatase 54 (34-104) U/L Albumin 3.2 L (3.4-5.0) gm/dl (6) Hyperlipidemia Hyperlipidemia type: unspecified Qualified Code(s): E78.5 - Hyperlipidemia, unspecified (7) CAD (coronary artery disease) Coronary Disease-Associated Artery/Lesion type: unspecified vessel or lesion type [place] vs. transplanted heart: [place] heart Associated angina: unspecified whether angina present Qualified Code(s): I25.10 - Atherosclerotic heart disease of [place] coronary artery without angina pectoris
--- NOTE | 2024-08-01 12:54 | Cardiology Progress Note ---
Date of Service August 01, 2024 Assessment & Plan (1) Severe sepsis: (2) Atrial flutter with rapid ventricular response: (3) ICD (implantable cardioverter-defibrillator) in place: (4) History of transcatheter aortic valve replacement (TAVR): (5) History of sustained ventricular tachycardia: Plan 07/31/24 Patient admitted for sepsis/febrile illness. Source unidentified at this time. WBC elevated. Lactate elevated. Febrile. Negative respiratory biofire. negative urine Chest CT and Abdominal CT without acute findings. Blood cultures pending. Pacemaker site without erythema. Interrogation ordered - [employer] rep notified and will be in to interrogate/check leads. Echo with preserved LVEF, normal functioning TAVR. No obvious source of vegetation. Once clinically stable/improved, consider ADOLFO. Will make NPO at midnight for possible ADOLFO on morning of 08/01 Continue broad spectrum antibiotics. New onset atrial flutter around 10:00 AM this morning. This correlates with timing of patient's worsening respiratory status/tachypnea. Has been on oral amiodarone as an outpatient due to VT. No known history of PAF per chart review. Reload amiodarone - IV amiodarone with bolus and gtt ordered. Continue metoprolol 50 mg daily Given thrombocytopenia and anemia, will hold of on IV heparin, unless atrial flutter persists > 24 hours. Supplement potassium and magnesium. 08/01/24: Patient admitted with severe sepsis. 3 out of 3 blood cultures positive for gram + cocci - Enterococcus Faecalis. Continue broad spectrum antibiotics. Initial Echo without evidence of vegetation on TAVR No evidence of pacemaker infection Patient NPO this morning for possible ADOLFO later today Patient remains in persistent atrial flutter. Rates improved on IV amiodarone. Continue amiodarone gtt. Continue metoprolol. Device rep to interrogate pacemaker and possible try to convert with ATP pacing If afib does not convert, may need IV heparin - Although anemia/low platelets noted. Will monitor. Further recommendations pending ADOLFO and device interrogation. Case discussed with Dr. Crenshaw. Further recommendations pending clinical response to above therapies and re- evaluation. I spent a total of 35 minutes on the date of service in preparation, delivery, and documentation of the care provided to this patient, excluding any time spent in the performance of separately billed services. Zina Acuna PA-C Department of Cardiology, [facility] This chart was completed in part utilizing Speech Voice Recognition Software. Grammatical errors, random word insertions, pronoun errors, and incomplete sentences are an occasional consequence of this system due to software limitations, ambient noise, and hardware issues. Any formal questions or concerns about the content, text, or information contained within the body of this dictation should be directly addressed to the provider for clarification. Admission and Anticipated Discharge Date Admission Date: July 31, 2024 Supervising Physician Co-Signing Physician Notes I have personally performed a history and physical examination on the patient. I have reviewed the advance practitioner's documentation, and I agree with, and take responsibility for the plan of care. Complex 69-year-old patient admitted with severe sepsis and new onset atrial flutter with rapid ventricular response. Recent history significant for TAVR placement and ICD implantation. Blood cultures positive for gram-positive cocci in chains. No obvious vegetation on transthoracic echocardiogram. Atrial flutter noted since admission. Successfully returned to sinus rhythm with antitachycardia pacing via pacemaker today. Recommendations: * Transesophageal echocardiogram today * Anesthesia consultation placed * Broad-spectrum antibiotic therapy and supportive care per internal medicine. * Continue IV amiodarone and metoprolol 50 mg daily. * Supplement electrolytes as indicated. * Maintain serum potassium greater than 4.0 and serum magnesium greater than 2.0. * NPO in anticipation of transesophageal echocardiogram I spent a total of 30 minutes on the date of service in preparation, delivery, and documentation of the care provided to this patient, excluding any time spent in the performance of separately billed services. Good Crenshaw DO, [facility] Subjective Patient resting in chair and working with PT at time of evaluation. Patient reports feeling "much better" than yesterday. SOB improved. No chest pain. Fevers improved. No dizziness. Still feeling "weak" but that is also improving. Review of Systems Review of Systems: All systems reviewed & are unremarkable except as noted in HPI & below Physical Exam Constitutional: WD/WN, vitals as above + obese; no acute distress Neck: + thick neck Respiratory: no labored breathing and not tachypneic Auscultation: + diminished lung sounds; no crackles, no rales and no wheezes Cardiovascular: Rate/Rhythm: regular rhythm and + tachycardic Heart Sounds: normal S1 and normal S2; no murmur Vessels: no JVD Extremities: no edema Gastrointestinal (Abdomen): normal bowel sounds, soft, nontender, no hepatosplenomegaly Neurologic: PERRL, EOMI, accommodation nl, no face palsy, no dysarthria Results & Data Vital Signs (Past 12 Hours) Vital Signs Temp Pulse Pulse Resp BP Pulse Ox Pulse Ox 08/01/24 11:37 36.8 C 79 19 110/69 95 08/01/24 11:17 93 08/01/24 10:02 08/01/24 07:43 97 H 08/01/24 07:12 36.8 C 94 H 20 122/64 93 08/01/24 03:22 98 H 21 94 08/01/24 02:39 36.6 C 100 H 18 119/70 94 O2 Del Method O2 Del Method FiO2 08/01/24 11:37 Room Air 08/01/24 11:17 Room Air 08/01/24 10:02 Room Air 08/01/24 07:43 08/01/24 07:12 Room Air 08/01/24 03:22 21 08/01/24 02:39 BiPAP Laboratory Results Cardiac Enzymes 07/31/24 07/31/24 07/31/24 Range/Units 15:30 16:04 18:11 AST (13-39) U/L Troponin I High Sens 37.8 H 30.2 H 38.0 H (0-20) pg/ml 07/31/24 08/01/24 08/01/24 Range/Units 21:05 05:38 11:44 AST 21 (13-39) U/L Troponin I High Sens 29.2 H 26.1 H 24.7 H (0-20) pg/ml CBC 08/01/24 Range/Units 05:38 WBC 4.76 L D (4.8-10.8) K/ul RBC 3.14 L (4.70-6.10) M/uL Hgb 7.5 L (14.0-18.0) g/dl Hct 24.8 L (42.0-52.0) % Plt Count 87 L (130-400) K/uL Neut # (Auto) 3.94 (1.40-6.50) K/uL Lymph # (Auto) 0.23 L (1.20-3.40) K/uL [place] # (Auto) 0.52 (0.11-0.59) K/uL Eos # (Auto) 0.02 (0.00-0.50) K/uL Baso # (Auto) 0.03 (0.00-0.20) K/uL Comprehensive Metabolic Panel 07/31/24 08/01/24 Range/Units 15:30 05:38 Sodium 136 (136-145) mmol/L Potassium 3.7 3.7 (3.5-5.1) mmol/L Chloride 106 (98-107) mmol/L Carbon Dioxide 24 (21-32) mmol/L BUN 19 (6-23) mg/dl Creatinine 0.94 (0.6-1.4) mg/dl Glucose 170 H (70-99(Fasting)) mg/dl Calcium 8.4 L (8.6-10.3) mg/dl AST 21 (13-39) U/L ALT 16 (7-52) U/L Alkaline Phosphatase 54 (34-104) U/L Total Protein 5.7 L (6.0-8.3) gm/dl Albumin 3.2 L (3.4-5.0) gm/dl Intake and Output 07/31/24 08/01/24 08/01/24 22:59 06:59 14:59 Intake Total 506 / 4282.35 270 / 4282.35 1542.525 / 1542.525 Output Total 1000 / 2150 500 / 2150 Balance -494 / 2132.35 -230 / 2132.35 1542.525 / 1542.525 Intake: IV 506 / 4282.35 270 / 4282.35 1542.525 / 1542.525 Amiodarone / D5w 150 mg In 100 100 / 100 ml @ 600 mls/hr IV NOW STA Rx#: [id number] Amiodarone / D5w 360 mg In 200 200 / 200 179.525 / 179.525 ml @ 0.5 MG/MIN 16.667 mls/hr IV .Q12H DANYEL Rx#:[id number] Gentamicin Sulfate 240 mg In 106 / 106 Dextrose 5% 100 ml @ 100 mls/hr IV Q24H DANYEL Rx#:[id number] Lactated Ringer's 1,000 ml @ 80 988 / 988 mls/hr IV .[id number] DANYEL Rx#: [id number] Magnesium Sulfate / D5w 1 gm In 200 / 200 100 ml @ 50 mls/hr IV Q2H DANYEL Rx#:[id number] Vancomycin HCl 1,250 mg In 275 / 275 Sodium Chloride 0.9% 250 ml @ 200 mls/hr IV Q12H DANYEL Rx#: [id number] Vancomycin HCl 1,000 mg In 270 270 / 270 ml @ 200 mls/hr IV Q12H DANYEL Rx# :[id number] Output: Urine 1000 / 2150 500 / 2150 Other: Other Intake Source npo Weight 105.4 kg 105.5 kg Weight Measurement Method Built in [facility] Diagnostic Findings 3 out of 3 blood cultures positive for Gram + cocci - Enterococcus Faecalis Telemetry reviewed: remains atrial flutter with controlled rates in the 80-90's at time of evaluation. Medications Administered Current Inpatient Medications Acetaminophen (Acetaminophen 500 Mg Tab) 1,000 mg PO Q8H PRN PRN Reason: Pain Stop: 08/30/24 11:16 Last Admin: 07/31/24 14:22 Dose: 1,000 mg Amiodarone HCl (Amiodarone 200 Mg Tab) 200 mg PO DAILY DANYEL Stop: 08/30/24 11:44 Last Admin: 08/01/24 09:53 Dose: 200 mg Aspirin (Aspirin 81 Mg Chew) 81 mg PO DAILY DANYEL Stop: 08/30/24 11:44 Last Admin: 08/01/24 08:36 Dose: 81 mg Cyanocobalamin (Cyanocobalamin (B-12) 500 Mcg Tablet) 1,000 mcg PO DAILY DANYEL Stop: 08/31/24 08:59 Last Admin: 08/01/24 08:36 Dose: 1,000 mcg Dextrose (Dextrose 50% 50 Ml Syringe) 25 - 50 ml IV UD PRN; Protocol PRN Reason: Hypoglycemia Protocol Stop: 08/30/24 11:29 Finasteride (Finasteride 5 Mg Tab) 5 mg PO QAM DANYEL Stop: 08/30/24 11:44 Last Admin: 08/01/24 08:37 Dose: 5 mg Folic Acid (Folic Acid 1 Mg Tab) 1 mg PO DAILY DANYEL Stop: 08/31/24 08:59 Last Admin: 08/01/24 08:37 Dose: 1 mg Glucagon (Glucagon For Inj 1 Mg Vial) 1 mg SQ UD PRN; Protocol PRN Reason: Hypoglycemia Protocol Stop: 08/30/24 11:29 Glucose (Glucose 40% Gel 15 Gm Tube) 15 - 30 gm PO UD PRN; Protocol PRN Reason: Hypoglycemia Protocol Stop: 08/30/24 11:29 Glucose (Glucose 10 Tab/Tube) 4 - 8 tab PO UD PRN; Protocol PRN Reason: Hypoglycemia Protocol Stop: 08/30/24 11:29 Heparin Sodium (Porcine) (Heparin Sod 5,000 Unit/0.5 Ml Vial) 5,000 units SQ Q8 DANYEL Stop: 08/30/24 13:59 Last Admin: 08/01/24 05:24 Dose: 5,000 units Cefepime HCl (Maxipime 2000mg) 2,000 mg in 20 mls @ 5 mls/min IV Q8H DANYEL Stop: 09/11/24 17:59 Last Admin: 08/01/24 08:44 Dose: 5 mls/min Gentamicin Sulfate 240 mg/ (Dextrose) 106 mls @ 100 mls/hr IV Q24H DANYEL Stop: 09/11/24 12:29 Last Admin: 08/01/24 12:03 Dose: 100 mls/hr Amiodarone HCl/Dextrose (Nexterone / D5w) 360 mg in 200 mls @ 16.667 mls/hr IV .Q12H DANYEL Stop: 08/30/24 21:29 Last Admin: 08/01/24 08:58 Dose: 0.5 mg/min, 16.7 mls/hr Vancomycin HCl 1,250 mg/ (Sodium Chloride) 275 mls @ 200 mls/hr IV Q12H DANYEL Stop: 09/12/24 10:59 Last Infusion: 08/01/24 11:18 Dose: Infused Insulin Aspart (Insulin Aspart Per Unit Charge) 0 units SC ACHS DANYEL Stop: 08/30/24 11:29 Last Admin: 08/01/24 12:03 Dose: 2 units Lactobacillus Acidophilus (Advanced Probiotic 625 Mg Capsule) 1,250 mg PO DAILY DANYEL Stop: 08/30/24 14:14 Last Admin: 08/01/24 09:53 Dose: 1,250 mg Latanoprost (Latanoprost 0.005% Op Soln 2.5 Ml Btl) 1 drops OPB HS DANYEL Stop: 08/30/24 20:59 Last Admin: 07/31/24 22:13 Dose: 1 drops Magnesium Hydroxide (Magnesium Hydroxide Susp 30 Ml Udc) 30 ml PO Q12H PRN PRN Reason: Constipation Stop: 08/30/24 11:16 Metoprolol Succinate (Metoprolol Succ 50mg Ext Rel Tab) 50 mg PO QAM [facility] Stop: 08/30/24 11:44 Last Admin: 08/01/24 08:36 Dose: 50 mg Miscellaneous (Carbohydrates For Hypoglycemia ) 15 - 30 gm PO UD PRN PRN Reason: Hypoglycemia Protocol Stop: 08/30/24 11:29 Miscellaneous (Gentamicin Trough) 1 each N/A DAILY@1130 DANYEL Stop: 08/02/24 11:31 Miscellaneous Information (Vancomycin Consult Active) 1 each N/A UD PRN PRN Reason: Consult Stop: 08/30/24 09:52 Miscellaneous Information (Gentamicin Consult Active) 1 each N/A UD PRN PRN Reason: Consult Stop: 08/30/24 11:06 Miscellaneous Information (Pharmacy Glycemic Mgmt Consult) 1 each N/A UD PRN PRN Reason: Consult Stop: 08/30/24 11:29 Multivitamins ([facility]ivitamin Tab) [facility] [place]: 08/31/24 08:59 Last Admin: 08/01/24 08:36 Dose: 1 tab Pantoprazole Sodium (Pantoprazole 40 Mg Tab) 40 mg PO DAILY DANYEL Stop: 08/30/24 11:44 Last Admin: 08/01/24 08:36 Dose: 40 mg Rosuvastatin Calcium (Rosuvastatin Calcium 20 Mg Tab) 40 mg PO HS DANYEL Stop: 08/30/24 20:59 Last Admin: 07/31/24 20:44 Dose: 40 mg Tamsulosin HCl (Tamsulosin Hcl 0.4 Mg Cap) 0.4 mg PO HS DANYEL Stop: 08/30/24 20:59 Last Admin: 07/31/24 20:44 Dose: 0.4 mg Vitamin D (Cholecalciferol 125 Mcg (5,000 Units) Tab) 125 mcg PO DAILY DANYEL Stop: 08/30/24 11:44 Last Admin: 08/01/24 08:36 Dose: 125 mcg
--- NOTE | 2024-08-01 12:58 | Anesthesiology Consultation ---
Date of Service August 01, 2024 Assessment & Plan Chart Review Chart Review: Acceptable Risk for Surgery and Patient NOT seen in Pre Admission Testing Consults Requested none ASA ASA4 Proposed Anesthesia Anesthesia Type: MAC History Surgery ADOLFO/Cardioversion Height/Weight Height: 5 ft 9 in Weight: 105.5 kg Allergies Allergy/AdvReac Type Severity Reaction Status Date / Time nickel Allergy Unknown RASH Verified 07/04/24 15:10 tetanus toxoid, adsorbed Allergy Unknown ITCHING Verified 07/04/24 15:10 empagliflozin AdvReac Unknown URINARY Verified 07/04/24 15:10 [From Jardiance] TRACT INFECTION lisinopril AdvReac Unknown Cough Verified 07/04/24 15:10 polyethylene glycol 3350 AdvReac Unknown Verified 07/04/24 15:10 [From Miralax] Medications Home Medications Medication Instructions Recorded Confirmed Last Taken dutasteride 0.5 mg capsule 0.5 mg PO QAM 08/11/18 07/31/24 11/02/23 metformin 1,000 mg tablet 1,000 mg PO BID 08/11/18 07/31/24 07/01/24 multivitamin 1 tab PO QAM 08/11/18 07/31/24 06/28/23 rosuvastatin 40 mg tablet 40 mg PO HS 08/11/18 07/31/24 06/28/23 glimepiride 2 mg tablet 2 mg PO QAM 08/22/20 07/31/24 11/02/23 tamsulosin 0.4 mg capsule 0.4 mg PO HS 10/01/20 07/31/24 06/28/23 timolol maleate 0.25 % eye drops 2 drp OPB DAILY 11/02/23 07/31/24 Unknown acetaminophen 500 mg tablet 1,000 mg PO DIRECTED PRN Pain 04/06/24 07/31/24 Unknown ##0 ascorbic acid (vitamin C) 1,000 mg 1 g PO BID 07/02/24 07/31/24 Unknown tablet (Vitamin C) aspirin 81 mg chewable tablet 81 mg PO DAILY 07/02/24 07/31/24 Unknown cholecalciferol (vitamin D3) 125 125 mcg PO DAILY 07/02/24 07/31/24 Unknown mcg (5,000 unit) tablet (Vitamin D3) folic acid 1 mg tablet 1 mg PO DAILY 07/02/24 07/31/24 Unknown cyanocobalamin (vitamin B-12) 1,000 mcg PO DAILY 07/04/24 07/31/24 Unknown 1,000 mcg tablet (Vitamin B-12) furosemide 20 mg tablet 20 mg PO DAILY PRN Weight Gain/Leg 07/04/24 07/31/24 07/03/24 Swelling latanoprost 0.005 % eye drops 1 drp OPB HS 07/04/24 07/31/24 Unknown pantoprazole 40 mg tablet,delayed 40 mg PO DAILY 07/04/24 07/31/24 Unknown release metoprolol succinate 50 mg 50 mg PO QAM 30 days #30 tabs 07/07/24 07/31/24 Unknown tablet,extended release 24 hr oxycodone 5 mg tablet 5 mg PO QID PRN SEVERE PAIN #15 07/07/24 07/31/24 Unknown tabs amiodarone 200 mg tablet 200 mg PO DAILY 07/31/24 07/31/24 Unknown Active Medications Generic Name Dose Route Start Last Admin Trade Name Freq PRN Reason Stop Dose Admin Acetaminophen 1,000 mg 07/31/24 11:17 07/31/24 14:22 Acetaminophen 500 Mg Tab PO 08/30/24 11:16 1,000 mg Q8H PRN Administration Pain Amiodarone HCl 200 mg 07/31/24 11:45 08/01/24 09:53 Amiodarone 200 Mg Tab PO 08/30/24 11:44 200 mg DAILY DANYEL Administration Aspirin 81 mg 07/31/24 11:45 08/01/24 08:36 Aspirin 81 Mg Chew PO 08/30/24 11:44 81 mg DAILY DANYEL Administration Cyanocobalamin 1,000 mcg 08/01/24 09:00 08/01/24 08:36 Cyanocobalamin (B-12) 500 Mcg Tablet PO 08/31/24 08:59 1,000 mcg DAILY DANYEL Administration Finasteride 5 mg 07/31/24 11:45 08/01/24 08:37 Finasteride 5 Mg Tab PO 08/30/24 11:44 5 mg QAM DANYEL Administration Folic Acid 1 mg 08/01/24 09:00 08/01/24 08:37 Folic Acid 1 Mg Tab PO 08/31/24 08:59 1 mg DAILY DANYEL Administration Heparin Sodium (Porcine) 5,000 units 07/31/24 14:00 08/01/24 05:24 Heparin Sod 5,000 Unit/0.5 Ml Vial SQ 08/30/24 13:59 5,000 units Q8 DANYEL Administration Cefepime HCl 2,000 mg in 20 mls @ 5 mls/min 07/31/24 18:00 08/01/24 08:44 Maxipime 2000mg IV 09/11/24 17:59 5 mls/min Q8H DANYEL Administration Gentamicin Sulfate 240 mg/ 106 mls @ 100 mls/hr 07/31/24 12:30 08/01/24 12:03 Dextrose IV 09/11/24 12:29 100 mls/hr Q24H DANYEL Administration Amiodarone HCl/Dextrose 360 mg in 200 mls @ 16.667 mls/hr 07/31/24 21:30 08/01/24 08:58 Nexterone / D5w IV 08/30/24 21:29 0.5 mg/min .Q12H DANYEL 16.7 mls/hr Administration 0.5 MG/MIN Vancomycin HCl 1,250 mg/ 275 mls @ 200 mls/hr 08/01/24 11:00 08/01/24 11:18 Sodium Chloride IV 09/12/24 10:59 Infused Q12H DANYEL Infusion Insulin Aspart 0 units 07/31/24 11:30 08/01/24 12:03 Insulin Aspart Per Unit Charge SC 08/30/24 11:29 2 units ACHS DANYEL Administration Lactobacillus Acidophilus 1,250 mg 07/31/24 14:15 08/01/24 09:53 Advanced Probiotic 625 Mg Capsule PO 08/30/24 14:14 1,250 mg DAILY DANYEL Administration Latanoprost 1 drops 07/31/24 21:00 07/31/24 22:13 Latanoprost 0.005% Op Soln 2.5 Ml Btl OPB 08/30/24 20:59 1 drops HS DANYEL Administration Metoprolol Succinate 50 mg 07/31/24 11:45 08/01/24 08:36 Metoprolol Succ 50mg Ext Rel Tab PO 08/30/24 11:44 50 mg QAM DANYEL Administration Multivitamins 1 tab 08/01/24 09:00 08/01/24 08:36 Multivitamin Tab PO 08/31/24 08:59 1 tab QAM DANYEL Administration Pantoprazole Sodium 40 mg 07/31/24 11:45 08/01/24 08:36 Pantoprazole 40 Mg Tab PO 08/30/24 11:44 40 mg DAILY DANYEL Administration Rosuvastatin Calcium 40 mg 07/31/24 21:00 07/31/24 20:44 Rosuvastatin Calcium 20 Mg Tab PO 08/30/24 20:59 40 mg HS DANYEL Administration Tamsulosin HCl 0.4 mg 07/31/24 21:00 07/31/24 20:44 Tamsulosin Hcl 0.4 Mg Cap PO 08/30/24 20:59 0.4 mg HS DANYEL Administration Vitamin D 125 mcg 07/31/24 11:45 08/01/24 08:36 Cholecalciferol 125 Mcg (5,000 Units) Tab PO 08/30/24 11:44 125 mcg DAILY DANYEL Administration Past Medical History Medical History Aortic stenosis, severe BPH (benign prostatic hyperplasia) REMBERTO on CPAP Obesity Dyslipidemia HTN (hypertension) Diabetes mellitus, type II History of colon polyps BENIGN Scoliosis Osteoarthritis BPH (benign prostatic hyperplasia) GERD (gastroesophageal reflux disease) Not an issue recently Diabetes mellitus, type 2 Anemia Glaucoma RESOLVED S/P SURGICAL INTERVENTION Hyperlipidemia Sleep apnea CPAP, COMPLIANT. HTN ASCVD Aorta COPD/Emphysema Hx/oV Tach S/P AICD A Flutter Exercise / Class Metabolic Activity III < 4 Walking/Shop/Light housework Past Family History Family History Grandmother (Maternal) Family history of diabetes mellitus Mother Family history of esophageal cancer Sister Family history of diabetes mellitus Past Surgical History Surgical History History of tonsillectomy Hx of repair of rotator cuff "bilateral" History of total right knee replacement (TKR) History of cardiac cath ABNORMAL STRESS TEST IN 2017 - NO STENTS. 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) History of repair of rotator cuff RT/LEFT History of esophagogastroduodenoscopy (EGD) History of colonoscopy History of tooth extraction History of tonsillectomy History of adenoidectomy History of myringotomy Past Anesthesia History No Hx of Anesthesia Complications and No Family Hx of Anesthesia Complications History of PONV No Hx of PONV and No Hx of Motion Sickness Social History Smoking Status: Former smoker tobacco type: cigarettes Do You Dip or Chew Tobacco: No Hx Alcohol Use: No Alcohol type: beer alcohol intake frequency: holidays/special occasions only Hx Substance Use: No substance use type: does not use Physical Exam Vital Signs Last Vital Signs Temp 36.8 C 08/01/24 11:37 Pulse 79 08/01/24 11:37 Resp 19 08/01/24 11:37 BP 110/69 08/01/24 11:37 Pulse Ox 95 08/01/24 11:37 O2 Del Method Room Air 08/01/24 11:37 O2 Flow Rate 2 07/31/24 15:30 FiO2 21 08/01/24 03:22 Testing Laboratory Results 08/01/24 05:38 08/01/24 05:38 PT 12.6 Seconds (9.0-12.0) H 07/31/24 07:40 INR 1.2 (0.9-1.1) H 07/31/24 07:40 Urine Color Yellow 07/31/24 Unknown Urine Appearance Cloudy (Clear) A 07/31/24 Unknown Urine pH 5.0 (4.5-7.5) 07/31/24 Unknown Ur Specific Sayre 1.022 (1.000-1.030) 07/31/24 Unknown Urine Protein 3+ (Negative) H 07/31/24 Unknown Urine Glucose (UA) Negative (Negative) 07/31/24 Unknown Urine Ketones Negative (Negative) 07/31/24 Unknown Urine Nitrite Negative (Negative) 07/31/24 Unknown Ur Leukocyte Esterase Negative (Negative) 07/31/24 Unknown Urine WBC (Auto) 0-5 /hpf (0-5) 07/31/24 Unknown Urine RBC (Auto) 0-2 /hpf (0-2) 07/31/24 Unknown U Hyaline Cast (Auto) 3-5 /lpf (0-2) H 07/31/24 Unknown U Epithel Cells (Auto) 3-5 /hpf (0-2) H 07/31/24 Unknown Urine Bacteria (Auto) None Seen (None Seen) 07/31/24 Unknown 07/31/24 09:19 Aerobic Blood Culture - Final Blood Enterococcus faecalis 07/31/24 09:19 Aerobic Blood Culture - Preliminary Blood Enterococcus faecalis 07/31/24 12:48 Aerobic Blood Culture - Preliminary Blood Gram positive cocci in chains 08/01/24 08/01/24 11:28 07:14 POC Glucose 185 H 188 H Electrocardiogram Date: 08/01/24 Findings: + AFIB @ (A Flutter @ 90 W/ variable AVB;inferior infarct,age ?) Chest X-Ray Date: 07/31/24 Findings: + NAD and + cardiomegaly stable PM;stable AVR Echocardiogram Date: 07/31/24 EF: 55% LV Function: normal RWMA: + none Other Findings: + LVH (moderate) Valvular Disease: + no significant valvular disease Mild TR Sys PA pressure 43 Torr Bioprosthetic AV functioning well 2ndary to TAVR 06/19/2024
--- NOTE | 2024-08-01 13:57 | Infectious Disease Consult ---
Date of Service August 01, 2024 Telehealth Information I performed this visit using a real-time telehealth connection between my location and the patients location ([facility]). After connecting through interactive tele-video, patient was identified by name and date of and/or wristband check.Patient (or authorized healthcare automobile rental representative) was informed that this was a telemedicine visit and it was being conducted confidentially over secure lines. My office door was closed and no on e else was present in the room with me.Patient (or authorized healthcare automobile rental representative) provided consent to proceed with the visit, expressed an understanding of privacy and security of the telemedicine visit, and gave permission to have a hospital automobile rental representative in the room in order to assist with the visit and to conduct portions of the visit, as needed. I informed the patient (or authorized healthcare automobile rental representative) that I reviewed their record and presented the opportunity for them to ask any questions regarding the visit today. The patient agreed to participate. Assessment & Plan (1) Enterococcal bacteremia: (2) History of transcatheter aortic valve replacement (TAVR): (3) S/P ICD (internal cardiac defibrillator) procedure: Plan patient with likely high-grade Enterococcus bacteremia, source is not obvious however may have initially presented from translocation of the abdomen given constipation or his history of IV infusions however this is unlikely to cause his current picture of high-grade bacteremia. High concern there is endocarditis given his recently placed aortic valve and recently placed ICD, agree with ruling out with ADOLFO. We are still pending sensitivities of the Enterococcus faecalis and as such can deescalate the cefepime to ampicillin, would recommend continuing with the vancomycin however can hold gentamicin at this time pending sensitivities and results of ADOLFO. Although synergistic gentamicin is recommended in endocarditis with this organism, alternative therapy is double beta-lactam if indeed sensitive to ampicillin. - ADOLFO - vancomycin IV, per pharmacy - ampicillin IV 2 g q.12 hours - discontinue cefepime/ gentamicin - repeat 2 sets blood culture tomorrow 08/02 final recommendation pending results of ADOLFO, patient may need removal of we lead/ surgical intervention of valve. high likelihood of prolonged IV therapy. Appreciate consultation, please do not hesitate to reach out for any further questions or concerns. Israel Parada MD PGY5 Infectious Disease Attending addendum This is a 69 y/o male w/ a hx of severe s/p TAVR (06/19/24), chronic LBBB w/ Mobitz II AV block s/p PPM (07/02/24) c/b Vtach, requiring upgrade to ICD (07/04/24), DM2 w/ nephropathy, who was admitted on 07/31/24 for sepsis w/ E faecalis bacteremia of unclear etiology (07/31/24: 3 [address] A/P and TTE unremarkable so far. The patient has hx of L knee replacement but currently no pain there. No neck pain. No new back pain. I agree w/ empiric abx w/ vancomcin iv and ampicillin for now, pending repeat blood cultures and ADOLFO for further evaluation. I am concerned about possible PVE or CIED infection. I saw and evaluated the patient today. I have reviewed the resident/fellow physician note and agree. During this patient encounter, one or more of the following was provided in addition to my in person visit: disease transmission risk assessment and mitigation; public health investigation, analysis, and testing; and/or complex antimicrobial therapy counseling and treatment. History of Present Illness History of Present Illness 69-year-old male with a history of aortic stenosis status post TAVR on 06/19/2024, status post ICD 07/04/2024, diabetes type 2, emphysema, BPH with LUTS presented to the ER with fever, chills and generalized weakness. T-max on admission 39.3, decreased to 38.5 and is now afebrile. Initial WBC 12.3, decreased to 4.7 today with lymphopenia as well as thrombocytopenia 87, anemia 7.5 with seemingly progressive decrease starting in middle of 2023, anemia also noted in 2020. Blood cultures 07/19 positive for the time being with Enterococcus faecalis. Patient was initiated on vancomycin, cefepime, gentamicin. Renal function is currently intact. Initial transthoracic echocardiogram without obvious vegetation. Cardiology has been consulted for ADOLFO, pending at this time. patient does note that he has been having ongoing iron infusions, weekly. He does not have any chronic indwelling venous access however. He also endorses right knee replacement however he is able to ambulate without difficulty, not in any significant pain. Denies significant back pain/neck pain. He also endorses chronic constipation with last bowel movement on Tuesday. Denies any abdominal pain. Allergies Allergy/AdvReac Type Severity Reaction Status Date / Time nickel Allergy Unknown RASH Verified 07/04/24 15:10 tetanus toxoid, adsorbed Allergy Unknown ITCHING Verified 07/04/24 15:10 empagliflozin AdvReac Unknown URINARY Verified 07/04/24 15:10 [From Jardiance] TRACT INFECTION lisinopril AdvReac Unknown Cough Verified 07/04/24 15:10 polyethylene glycol 3350 AdvReac Unknown Verified 07/04/24 15:10 [From Miralax] Home Medications Medication Instructions Recorded Confirmed Type dutasteride 0.5 mg capsule 0.5 mg PO QAM 08/11/18 07/31/24 History metformin 1,000 mg tablet 1,000 mg PO BID 08/11/18 07/31/24 History multivitamin 1 tab PO QAM 08/11/18 07/31/24 History rosuvastatin 40 mg tablet 40 mg PO HS 08/11/18 07/31/24 History glimepiride 2 mg tablet 2 mg PO QAM 08/22/20 07/31/24 History tamsulosin 0.4 mg capsule 0.4 mg PO HS 10/01/20 07/31/24 History timolol maleate 0.25 % eye drops 2 drp OPB DAILY 11/02/23 07/31/24 History acetaminophen 500 mg tablet 1,000 mg PO DIRECTED PRN Pain 04/06/24 07/31/24 History ##0 ascorbic acid (vitamin C) 1,000 mg 1 g PO BID 07/02/24 07/31/24 History tablet (Vitamin C) aspirin 81 mg chewable tablet 81 mg PO DAILY 07/02/24 07/31/24 History cholecalciferol (vitamin D3) 125 125 mcg PO DAILY 07/02/24 07/31/24 History mcg (5,000 unit) tablet (Vitamin D3) folic acid 1 mg tablet 1 mg PO DAILY 07/02/24 07/31/24 History cyanocobalamin (vitamin B-12) 1,000 mcg PO DAILY 07/04/24 07/31/24 History 1,000 mcg tablet (Vitamin B-12) furosemide 20 mg tablet 20 mg PO DAILY PRN Weight Gain/Leg 07/04/24 07/31/24 History Swelling latanoprost 0.005 % eye drops 1 drp OPB HS 07/04/24 07/31/24 History pantoprazole 40 mg tablet,delayed 40 mg PO DAILY 07/04/24 07/31/24 History release metoprolol succinate 50 mg 50 mg PO QAM 30 days #30 tabs 07/07/24 07/31/24 Rx tablet,extended release 24 hr oxycodone 5 mg tablet 5 mg PO QID PRN SEVERE PAIN #15 07/07/24 07/31/24 Rx tabs amiodarone 200 mg tablet 200 mg PO DAILY 07/31/24 07/31/24 History Patient History Medical History Aortic stenosis, severe BPH (benign prostatic hyperplasia) REMBERTO on CPAP Obesity Dyslipidemia HTN (hypertension) Diabetes mellitus, type II History of colon polyps BENIGN Scoliosis Osteoarthritis BPH (benign prostatic hyperplasia) GERD (gastroesophageal reflux disease) Not an issue recently Diabetes mellitus, type 2 Anemia Glaucoma RESOLVED S/P SURGICAL INTERVENTION Hyperlipidemia Sleep apnea CPAP, COMPLIANT. Surgical History History of tonsillectomy Hx of repair of rotator cuff "bilateral" History of total right knee replacement (TKR) History of cardiac cath ABNORMAL STRESS TEST IN 2017 - NO STENTS. 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) History of repair of rotator cuff RT/LEFT History of esophagogastroduodenoscopy (EGD) History of colonoscopy History of tooth extraction History of tonsillectomy History of adenoidectomy History of myringotomy Family History Grandmother (Maternal) Family history of diabetes mellitus Mother Family history of esophageal cancer Sister Family history of diabetes mellitus Social History Smoking Status: Former smoker Tobacco Type: Cigarettes Second Hand Exposure: No; Do You Dip or Chew Tobacco: No; Hx Alcohol Use: No Hx Substance Use: No Preferred Language: Kiswahili Communication Ability: Effective Reliability 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: No Beliefs That Will Affect Care: None marital status: Current Living Situation: Alone Current Living Situation Comment: currently in rehab facility Feels Safe at Home: Yes Assistive Devices: CPAP Review of Systems CONSTITUTIONAL: Denies weight loss, fever and chills. HEENT: Denies changes in vision and hearing. RESPIRATORY: Denies SOB and cough. CV: Denies palpitations and CP. GI: Denies abdominal pain, nausea, vomiting and diarrhea. : Denies dysuria and urinary frequency. MSK: Denies myalgia and joint pain. SKIN: Denies rash and pruritus. NEUROLOGICAL: Denies headache and syncope PSYCHIATRIC: Denies recent changes in mood. Denies anxiety and depression. Physical Exam GENERAL: Appears as stated age. No acute distress. NEUROLOGIC: No focal neurological deficits. Cranial nerves grossly intact. Results & Data Vital Signs (Past 12 Hours) Vital Signs Temp Pulse Pulse Resp BP Pulse Ox Pulse Ox 08/01/24 11:37 36.8 C 79 19 110/69 95 08/01/24 11:17 93 08/01/24 10:02 08/01/24 07:43 97 H 08/01/24 07:12 36.8 C 94 H 20 122/64 93 08/01/24 03:22 98 H 21 94 08/01/24 02:39 36.6 C 100 H 18 119/70 94 O2 Del Method O2 Del Method FiO2 08/01/24 11:37 Room Air 08/01/24 11:17 Room Air 08/01/24 10:02 Room Air 08/01/24 07:43 08/01/24 07:12 Room Air 08/01/24 03:22 21 08/01/24 02:39 BiPAP Laboratory Results 07/31/24 09:19 Aerobic Blood Culture - Final Blood Enterococcus faecalis Anaerobic Blood Culture - Pending 07/31/24 09:19 Aerobic Blood Culture - Preliminary Blood Enterococcus faecalis Anaerobic Blood Culture - Pending 07/31/24 12:48 Aerobic Blood Culture - Preliminary Blood Gram positive cocci in chains Anaerobic Blood Culture - Pending 08/01/24 08/01/24 08/01/24 11:44 11:28 07:14 WBC RBC Hgb Hct MCV MCH MCHC RDW Std Deviation RDW Coeff of Freddie Plt Count MPV Immature Gran % (Auto) Neut % (Auto) Lymph % (Auto) [place] % (Auto) Eos % (Auto) Baso % (Auto) Neut # (Auto) Lymph # (Auto) [place] # (Auto) Eos # (Auto) Baso # (Auto) Immature Gran # (Auto) Anisocytosis Tear Drop Cells Sodium Potassium Chloride Carbon Dioxide Anion Gap BUN Creatinine Est Cr Clr Drug Dosing eGFR BUN/Creatinine Ratio Glucose POC Glucose 185 H 188 H Lactate Calcium Magnesium Total Bilirubin AST ALT Alkaline Phosphatase Troponin I High Sens 24.7 H Total Protein Albumin Globulin Albumin/Globulin Ratio Enterococc faecalis PCR Sisi/B-Vanco Res Genes Bld Cult ID Panel PCR 08/01/24 07/31/24 07/31/24 05:38 21:05 20:04 WBC 4.76 L D RBC 3.14 L Hgb 7.5 L Hct 24.8 L MCV 79.0 L MCH 23.9 L MCHC 30.2 L RDW Std Deviation 56.5 H RDW Coeff of Freddie 20.1 H Plt Count 87 L MPV 11.5 Immature Gran % (Auto) 0.4 Neut % (Auto) 82.9 Lymph % (Auto) 4.8 [place] % (Auto) 10.9 Eos % (Auto) 0.4 Baso % (Auto) 0.6 Neut # (Auto) 3.94 Lymph # (Auto) 0.23 L [place] # (Auto) 0.52 Eos # (Auto) 0.02 Baso # (Auto) 0.03 Immature Gran # (Auto) 0.02 Anisocytosis Present Tear Drop Cells 1+ Sodium 136 Potassium 3.7 Chloride 106 Carbon Dioxide 24 Anion Gap 6 BUN 19 Creatinine 0.94 Est Cr Clr Drug Dosing 86.3 eGFR 86.67 BUN/Creatinine Ratio 20.2 H Glucose 170 H POC Glucose 227 H Lactate Calcium 8.4 L Magnesium 2.4 Total Bilirubin 0.9 D AST 21 ALT 16 Alkaline Phosphatase 54 Troponin I High Sens 26.1 H 29.2 H Total Protein 5.7 L Albumin 3.2 L Globulin 2.5 Albumin/Globulin Ratio 1.3 Enterococc faecalis PCR Sisi/B-Vanco Res Genes Bld Cult ID Panel PCR 07/31/24 07/31/24 07/31/24 18:11 17:39 16:04 WBC RBC Hgb Hct MCV MCH MCHC RDW Std Deviation RDW Coeff of Freddie Plt Count MPV Immature Gran % (Auto) Neut % (Auto) Lymph % (Auto) [place] % (Auto) Eos % (Auto) Baso % (Auto) Neut # (Auto) Lymph # (Auto) [place] # (Auto) Eos # (Auto) Baso # (Auto) Immature Gran # (Auto) Anisocytosis Tear Drop Cells Sodium Potassium Chloride Carbon Dioxide Anion Gap BUN Creatinine Est Cr Clr Drug Dosing eGFR BUN/Creatinine Ratio Glucose POC Glucose 219 H Lactate Calcium Magnesium Total Bilirubin AST ALT Alkaline Phosphatase Troponin I High Sens 38.0 H 30.2 H Total Protein Albumin Globulin Albumin/Globulin Ratio Enterococc faecalis PCR Sisi/B-Vanco Res Genes Bld Cult ID Panel PCR 07/31/24 07/31/24 15:30 09:19 WBC RBC Hgb Hct MCV MCH MCHC RDW Std Deviation RDW Coeff of Freddie Plt Count MPV Immature Gran % (Auto) Neut % (Auto) Lymph % (Auto) [place] % (Auto) Eos % (Auto) Baso % (Auto) Neut # (Auto) Lymph # (Auto) [place] # (Auto) Eos # (Auto) Baso # (Auto) Immature Gran # (Auto) Anisocytosis Tear Drop Cells Sodium Potassium 3.7 Chloride Carbon Dioxide Anion Gap BUN Creatinine Est Cr Clr Drug Dosing eGFR BUN/Creatinine Ratio Glucose POC Glucose Lactate 1.9 Calcium Magnesium Total Bilirubin AST ALT Alkaline Phosphatase Troponin I High Sens 37.8 H Total Protein Albumin Globulin Albumin/Globulin Ratio Enterococc faecalis PCR DETECTED A Sisi/B-Vanco Res Genes VRE Not Detected Bld Cult ID Panel PCR See PCR Comment Diagnostic Findings Chest X-Ray 07/31/24 07:24 XR chest 1V portable CLINICAL HISTORY: weakness COMPARISON STUDY: 07/04/2024 FINDINGS: Stable pacemaker. Stable cardiac valve repair. Stable mild cardiomegaly without pulmonary vascular congestion. No effusion, consolidation, or pneumothorax. IMPRESSION: No acute findings. ACT 112: Negative or not required by law. Electronically signed by: Raza Velazquez M.D. 07/31/2024 8:07 AM Abdomen/Pelvis CT 07/31/24 10:43 CT OF THE ABDOMEN AND PELVIS WITH CONTRAST CLINICAL HISTORY: Unclear sepsis source. COMPARISON STUDY: CT of the abdomen and pelvis April 06, 2024. TECHNIQUE: Following IV administration of 94 mL of Optiray, axial images of the abdomen and pelvis were obtained from the lung bases to the proximal femurs. Images were reviewed in the axial, sagittal, and coronal planes. IV contrast was administered without complication. Automated exposure control was utilized for the study. A dose lowering technique was utilized adhering to the principles of ALARA. FINDINGS: Pacer leads are partially imaged. There is mild interlobular septal thickening. No pneumatosis, free air or portal venous gas is present. Mild hepatosplenomegaly is unchanged. There are no hepatic lesions. There is no biliary or pancreatic ductal dilatation. Bilateral perinephric fluid is unchanged. There is no hydronephrosis. Nephrograms are symmetric. No baltazar pancreatic or pericholecystic infiltration is present. No abdominal or pelvic lymphadenopathy. Caliber and wall thickness of small and large bowel are normal. There is sigmoid diverticulosis without evidence for acute diverticulitis. The appendix is normal. No fluid collections are identified. Multilevel degenerative changes within lumbar spine are similar in appearance to prior CT. No areas of bony erosion are identified. IMPRESSION: 1. No acute process within the abdomen or pelvis. 2. No bowel obstruction. No bowel wall thickening. Sigmoid diverticulosis. No evidence for acute diverticulitis. 3. Mild hepatosplenomegaly, unchanged. 4. Mild interstitial pulmonary edema. ACT 112: Negative or not required by law. Electronically signed by: Issa Pereira M.D. 07/31/2024 11:[address] 07/31/24 10:[address] WITH CONTRAST CT DOSE: 2374.74 mGy.cm HISTORY: concern for infective endocarditis/ICD infection TECHNIQUE: Multiaxial CT images of the chest were performed following the IV administration of 90 cc of Optiray. A dose lowering technique was utilized adhering to the principles of ALARA. COMPARISON STUDY: Chest x-ray earlier today. FINDINGS: Left cardiac pacemaker is present. No adjacent hematoma or abscess seen. There is minimal scarring or atelectasis in the lung bases. There is no pulmonary consolidation or pleural effusion. There is mild emphysema. No specific evidence of interstitial lung disease. There are a few scattered small pulmonary nodules measuring up to 4 mm maximal dimension. There is mild mediastinal adenopathy with largest lymph node at right pretracheal node measuring 1.8 cm. There is aortic valve repair. There are scattered coronary artery and aortic calcifications. There is mild scoliosis. There are mild diffuse degenerative changes at the thoracic spine. IMPRESSION: 1. No evidence of abscess adjacent to the pacemaker battery. No pericardial effusion. 2. Mild mediastinal lymphadenopathy. No other acute findings seen. 3. Emphysema with no pneumonia or pleural effusion. There are a few small pulmonary nodules for which follow-up chest CT is suggested in one year. ACT 112: Positive. There are findings on this exam that require communication between the performing entity and the patient following Patient Test Result Information Act ([place] Act 112) guidelines. Electronically signed by: Raza Velazquez M.D. 07/31/2024 11:23 AM
[2024-08-01] MEDS ORDERED: PROPOFOL IV EMULSION 10 MG/ML 20 ML VIAL IV ONE ×2 (14:19→15:16)
--- NOTE | 2024-08-01 15:36 | Anesthesiology Progress Note ---
Date of Service August 01, 2024 Anesthesia Post Procedure Vital Signs Vital Signs: Temp Pulse Pulse Resp BP Pulse Ox Pulse Ox 08/01/24 15:26 76 08/01/24 14:35 98 H 14 119/74 94 08/01/24 11:37 36.8 C 79 19 110/69 95 08/01/24 11:17 93 08/01/24 10:02 08/01/24 07:43 97 H 08/01/24 07:12 36.8 C 94 H 20 122/64 93 08/01/24 03:22 98 H 21 94 08/01/24 02:39 36.6 C 100 H 18 119/70 94 07/31/24 22:55 21 95 07/31/24 22:51 36.7 C 75 18 116/70 95 07/31/24 19:30 07/31/24 19:21 36.7 C 82 18 109/60 94 07/31/24 17:35 07/31/24 17:35 36.8 C 91 H 22 105/70 93 O2 Del Method O2 Del Method FiO2 08/01/24 15:26 08/01/24 14:35 Room Air 08/01/24 11:37 Room Air 08/01/24 11:17 Room Air 08/01/24 10:02 Room Air 08/01/24 07:43 08/01/24 07:12 Room Air 08/01/24 03:22 21 08/01/24 02:39 BiPAP 07/31/24 22:55 21 07/31/24 22:51 Nasal Cannula 07/31/24 19:30 Room Air 07/31/24 19:21 Nasal Cannula 07/31/24 17:35 Room Air 07/31/24 17:35 Transfer of Care Handoff Completed per policy Notes Mental Status: alert / awake / arousable and participated in evaluation Patient Amnestic to Procedure: Yes Nausea / Vomiting: adequately controlled Pain: adequately controlled Airway Patency, RR, SpO2: stable & adequate BP & HR: stable & adequate Hydration State: stable & adequate Anesthetic Complications: no major complications apparent and Pt Satisfied with anesthetic care
[2024-08-01] MEDS: AMPICILLIN 2,000 MG in SODIUM CHLOR 0.9% MINI-B 100 ML IV SCH (17:27)
[2024-08-02] MEDS: INSULIN ASPART PER UNIT CHARGE SC SCH (02:33)
[2024-08-02 07:56] LABS: Albumin Globulin Ratio 1.3 (0.9-2); Albumin Level 3.2 gm/dl (3.4-5.0); BUN Creatinine Ratio 18.6 (10-20); Bilirubin,Total 0.7 mg/dl (0.2-1.0); Calcium 8.2 mg/dl (8.6-10.3); Creatinine Clr Calc Pharmacy 94.2 ml/min; Globulin 2.5 gm/dl (2.5-4.0); Magnesium 2.3 mg/dl (1.7-2.4); Potassium 3.6 mmol/L (3.5-5.1); Total Protein 5.7 gm/dl (6.0-8.3)
[2024-08-02 08:05] LABS: Hematocrit (blood only) 24.8 % (42.0-52.0); Hemoglobin 7.1 g/dl (14.0-18.0); Mean Corpuscular Hemoglobin 23.3 pg (25.0-34.0); Mean Corpuscular Hgb Conc 28.6 g/dL (32.0-36.0); Mean Corpuscular Volume 81.3 fL (80.0-100.0); Mean Platelet Volume 11.2 fL (9.4-12.4); Platelet Count 89 K/uL (130-400); RDW Coefficient of Variation 20.1 % (11.5-14.5); RDW Standard Deviation 58.6 fL (36.4-46.3); Red Blood Count 3.05 M/uL (4.70-6.10); White Blood Count 3.97 K/ul (4.8-10.8)
[2024-08-02 08:06] LABS: Anisocytosis Present; Basophils # (auto) 0.02 K/uL (0.00-0.20); Basophils % (auto) 0.5 %; Eosinophils # (auto) 0.07 K/uL (0.00-0.50); Eosinophils % (auto) 1.8 %; Hypochromasia Present; Immature Granulocytes # (auto) 0.02 K/uL (0.01-0.20); Immature Granulocytes % (auto) 0.5 %; Lymphocytes # (auto) 0.24 K/uL (1.20-3.40); Monocytes # (auto) 0.42 K/uL (0.11-0.59); Monocytes % (auto) 10.6 %; Neutrophils % (auto) 80.6 %; Ovalocytes 1+; Polychromasia 1+; Tear Drop Cells 1+
[2024-08-02] MEDS ORDERED: SODIUM CHLORIDE 0.9% 100 ML IV PRN (08:57)
[2024-08-02] MEDS: LANTUS PER UNIT CHARGE SC SCH (09:35)
[2024-08-02] MEDS: VANCOMYCIN HCL 1,500 MG in SODIUM CHLORIDE 0.9% 500 ML IV SCH (10:33)
[2024-08-02] MEDS ORDERED: GENTAMICIN TROUGH SCH (11:30)
[2024-08-02] MEDS: BENZOCAINE/TETRACAIN/BUTAM 50 APPLN/5 GM CAN EXT ONE (11:41)
[2024-08-02] MEDS: cefTRIAXone SODIUM 2,000 MG/50 ML BAG IV SCH (12:08)
--- NOTE | 2024-08-02 12:35 | Hospitalist Progress Note ---
Date of Service August 02, 2024 Assessment & Plan (1) Severe sepsis: Plan: Rafael Cantu is a 69y/o M with PMHx significant for severe aortic stenosis s/p TAVR on 06/19/24, chronic LBBB, Mobitz type 2 second degree AV block s/p pacemaker placement on 07/02/24 with postoperative course complicated by episodes of sustained ventricular tachycardia requiring upgrade to an ICD on 07/04/24, HTN, HLD, mild nonobstructive CAD, DMII with diabetic nephropathy, REMBERTO on CPAP, pulmonary emphysema, longstanding iron deficiency anemia, BPH with LUTS, benign paroxysmal vertigo, glaucoma of both eyes, depression, GERD and generalized osteoarthritis who presented to the ED via EMS with complaints of fever, chills and generalized weakness. Patient with recent invasive cardiac procedures including TAVR on 06/19/24 for severe and pacemaker placement on 07/02/24 with postoperative course complicated by episodes of sustained ventricular tachycardia requiring upgrade to an ICD on 07/04/24. 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 EF 55 to 60%. Moderate concentric LVH. TAVR bioprosthesis is present. No significant bioprosthetic aortic valve regurgitation. Gradient is normal for prosthetic arctic valve. Moderate mitral annular calcification. Mild tricuspid regurgitation. Estimated systolic blood pressure 43 mmHg. No evidence of vegetation within the limitations of imaging modality. --ICD site nonerythematous --S/P ADOLFO: Mobile echodensity) to the ICD lead as it transverses through the right atrium. Imaging consistent with vegetation or thrombus. Left atrium is moderately dilated. No thrombus detected in the left atrial appendage. 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 Patient has been receiving IV Venofer as outpatient Currently no signs of bleeding Monitor CBC closely Anemia workup pending Will consider to give IV Venofer today Atrial flutter with rapid ventricular response--POA ICD interrogation IV amiodarone discontinued Continue amiodarone, metoprolol Not on anticoagulation due to anemia, thrombocytopenia Appreciate cardiology input (2) Elevated troponin: Plan: Likely demand ischemia secondary to sepsis, atrial flutter RVR (3) History of transcatheter aortic valve replacement (TAVR): Plan: Severe s/p TAVR performed on 06/19/24 at [facility]. Follows with [facility] as an outpatient. (4) Hyponatremia: Plan: Resolved with IV fluids Monitor sodium levels (5) Thrombocytopenia: Plan: Likely secondary to sepsis Currently no acute bleeding issues Monitor platelet count Stable (6) Hyperlipidemia: Plan: Continue statin (7) CAD (coronary artery disease): Plan: Continue aspirin, metoprolol, statin (8) History of sustained ventricular tachycardia: (9) S/P ICD (internal cardiac defibrillator) procedure: Plan: Mobitz type 2 second degree AV block s/p pacemaker placement on 07/02/24 with postoperative course complicated by episodes of sustained ventricular tachycardia requiring upgrade to an ICD on 07/04/24. Other Chronic Medical Conditions: REMBERTO - Continue CPAP HS. HTN -continue current medications, monitor blood pressure DVT Px SQ Heparin Code Status: DNR/DNI Disposition: PT OT prior to discharge Admission and Anticipated Discharge Date Admission Date: July 31, 2024 Subjective Patient is seen and examined at bedside States having generalized weakness and feels tired No other complaints today Denies any bleeding issues Denies any chest pain, dyspnea, nausea, vomiting, abdominal pain, dizziness Review of Systems Review of Systems: All systems reviewed & are unremarkable except as noted in Subjective Physical Exam Physical Exam: Physical Exam: Vitals signs as noted above General Appearance:Obese, no apparent distress Head: normocephalic, Atraumatic Eyes: normal inspection, EOMI Neck: supple, Trachea midline Respiratory/Chest: Decreased breath sounds, CTA, No accessory muscle use Cardiovascular: S1, S2, no murmur Abdomen/GI:Soft, Non tender, Bowel sounds present Extremities/Musculoskeletal:normal inspection, 1+ edema Neurologic/Psych:AAOX3, grossly no focal neurological deficits Skin: normal color, warm Results & Data Results & Data Vital Signs (Past 12 Hours) Vital Signs Temp Pulse Pulse Resp BP Pulse Ox Pulse Ox 08/02/24 11:31 36.5 C 64 16 138/82 92 08/02/24 11:00 94 08/02/24 07:19 36.5 C 67 19 123/76 94 08/02/24 03:34 66 20 92 08/02/24 02:36 36.6 C 70 18 105/61 96 O2 Del Method O2 Del Method FiO2 08/02/24 11:31 Room Air 08/02/24 11:00 Room Air 08/02/24 07:19 Room Air 08/02/24 03:34 21 08/02/24 02:36 BiPAP Laboratory Results Short CBC 08/02/24 Range/Units 07:02 WBC 3.97 L (4.8-10.8) K/ul Hgb 7.1 L (14.0-18.0) g/dl Hct 24.8 L (42.0-52.0) % Plt Count 89 L (130-400) K/uL BMP 08/02/24 07:02 Sodium 137 Potassium 3.6 Chloride 109 H Carbon Dioxide 26 BUN 16 Creatinine 0.86 Glucose 144 H Calcium 8.2 L Liver Function 08/02/24 Range/Units 07:02 Total Bilirubin 0.7 (0.2-1.0) mg/dl AST 69 H (13-39) U/L ALT 62 H (7-52) U/L Alkaline Phosphatase 68 (34-104) U/L Albumin 3.2 L (3.4-5.0) gm/dl (6) Hyperlipidemia Hyperlipidemia type: unspecified Qualified Code(s): E78.5 - Hyperlipidemia, unspecified (7) CAD (coronary artery disease) Coronary Disease-Associated Artery/Lesion type: unspecified vessel or lesion type [place] vs. transplanted heart: [place] heart Associated angina: unspecified whether angina present Qualified Code(s): I25.10 - Atherosclerotic heart disease of [place] coronary artery without angina pectoris
[2024-08-02 13:04] LABS: Hematocrit (blood only) 24.6 % (42.0-52.0); Hemoglobin 7.3 g/dl (14.0-18.0)
[2024-08-02 13:49] LABS: Folate (Folic Acid),Ser orPlas > 22.30 ng/ml (>5.38); Vitamin B12 974 pg/ml (180-914)
[2024-08-02 13:54] LABS: Ferritin 159.7 ng/ml (8-388)
--- NOTE | 2024-08-02 14:28 | Cardiology Progress Note ---
Date of Service August 02, 2024 Assessment & Plan (1) Severe sepsis: (2) Atrial flutter with rapid ventricular response: (3) ICD (implantable cardioverter-defibrillator) in place: (4) History of transcatheter aortic valve replacement (TAVR): (5) History of sustained ventricular tachycardia: Plan 07/31/24 Patient admitted for sepsis/febrile illness. Source unidentified at this time. WBC elevated. Lactate elevated. Febrile. Negative respiratory biofire. negative urine Chest CT and Abdominal CT without acute findings. Blood cultures pending. Pacemaker site without erythema. Interrogation ordered - [employer] rep notified and will be in to interrogate/check leads. Echo with preserved LVEF, normal functioning TAVR. No obvious source of vegetation. Once clinically stable/improved, consider ADOLFO. Will make NPO at midnight for possible ADOLFO on morning of 08/01 Continue broad spectrum antibiotics. New onset atrial flutter around 10:00 AM this morning. This correlates with timing of patient's worsening respiratory status/tachypnea. Has been on oral amiodarone as an outpatient due to VT. No known history of PAF per chart review. Reload amiodarone - IV amiodarone with bolus and gtt ordered. Continue metoprolol 50 mg daily Given thrombocytopenia and anemia, will hold of on IV heparin, unless atrial flutter persists > 24 hours. Supplement potassium and magnesium. 08/01/24: Patient admitted with severe sepsis. 3 out of 3 blood cultures positive for gram + cocci - Enterococcus Faecalis. Continue broad spectrum antibiotics. Initial Echo without evidence of vegetation on TAVR No evidence of pacemaker infection Patient NPO this morning for possible ADOLFO later today Patient remains in persistent atrial flutter. Rates improved on IV amiodarone. Continue amiodarone gtt. Continue metoprolol. Device rep to interrogate pacemaker and possible try to convert with ATP pacing If afib does not convert, may need IV heparin - Although anemia/low platelets noted. Will monitor. Further recommendations pending ADOLFO and device interrogation. 08/02: Patient underwent ADOLFO yesterday afternoon with findings of mobile echodensity adherent to the ICD lead of his newly implanted device. Discussed with EP and extraction of PPM to occur tomorrow. IV amiodarone to be transitioned to oral amiodarone 200 mg BID today. Needs ongoing IV antibiotics, likely 6 weeks. ID consulted. No vegetation noted on his TAVR. No recurrent atrial flutter. NPO after midnight Case discussed with Dr. Crenshaw. I spent a total of 35 minutes on the date of service in preparation, delivery, and documentation of the care provided to this patient, excluding any time spent in the performance of separately billed services. Zina Acuna PA-C Department of Cardiology, [facility] This chart was completed in part utilizing Speech Voice Recognition Software. Grammatical errors, random word insertions, pronoun errors, and incomplete sentences are an occasional consequence of this system due to software limitations, ambient noise, and hardware issues. Any formal questions or concerns about the content, text, or information contained within the body of this dictation should be directly addressed to the provider for clarification. Admission and Anticipated Discharge Date Admission Date: July 31, 2024 Supervising Physician Co-Signing Physician Notes I have personally performed a history and physical examination on the patient. I have reviewed the advance practitioner's documentation, and I agree with, and take responsibility for the plan of care. Complex 69-year-old patient admitted with severe sepsis and new onset atrial flutter with rapid ventricular response. Antitachycardia pacing performed yesterday with return to sinus rhythm. Transesophageal echocardiogram demonstrating ICD lead vegetation. Blood cultures positive for Enterococcus. Patient feeling better today. No recurrent fevers. Telemetry revealing sinus rhythm. Recommendations: * Device extraction scheduled 08/03/2024. * N.p.o. except medications after midnight. * Antibiotic therapy and supportive care per internal medicine. * Discontinue IV amiodarone. * Restart oral amiodarone 200 mg twice daily. * Continue metoprolol 50 mg daily. * Supplement electrolytes as indicated. * Maintain serum potassium greater than 4.0 and serum magnesium greater than 2.0. I spent a total of 30 minutes on the date of service in preparation, delivery, and documentation of the care provided to this patient, excluding any time spent in the performance of separately billed services. Good Crenshaw DO, [facility] Subjective Patient sitting in chair. Feeling ok. Frustrated by recent events and needing device out, but understands. He reports he is feeling better since admission. SOB improved. no chest pain. No recurrent fevers or chills. No orthopnea, PND or edema. Review of Systems Review of Systems: All systems reviewed & are unremarkable except as noted in HPI & below Physical Exam Constitutional: WD/WN, vitals as above + ill appearing and + obese; no acute distress Neck: + thick neck Respiratory: no labored breathing and not tachypneic Auscultation: + diminished lung sounds; no crackles, no rales and no wheezes Cardiovascular: Rate/Rhythm: regular rhythm and + tachycardic Heart Sounds: normal S1 and normal S2; no murmur Vessels: no JVD Extremities: no edema Gastrointestinal (Abdomen): normal bowel sounds, soft, nontender, no hepatosplenomegaly Neurologic: PERRL, EOMI, accommodation nl, no face palsy, no dysarthria Results & Data Vital Signs (Past 12 Hours) Vital Signs Temp Pulse Pulse Resp BP Pulse Ox Pulse Ox 08/02/24 11:31 36.5 C 64 16 138/82 92 08/02/24 11:00 94 08/02/24 07:19 36.5 C 67 19 123/76 94 08/02/24 03:34 66 20 92 08/02/24 02:36 36.6 C 70 18 105/61 96 O2 Del Method O2 Del Method FiO2 08/02/24 11:31 Room Air 08/02/24 11:00 Room Air 08/02/24 07:19 Room Air 08/02/24 03:34 21 08/02/24 02:36 BiPAP Laboratory Results Cardiac Enzymes 08/02/24 Range/Units 07:02 AST 69 H (13-39) U/L CBC 08/02/24 08/02/24 Range/Units 07:02 12:47 WBC 3.97 L (4.8-10.8) K/ul RBC 3.05 L (4.70-6.10) M/uL Hgb 7.1 L 7.3 L (14.0-18.0) g/dl Hct 24.8 L 24.6 L (42.0-52.0) % Plt Count 89 L (130-400) K/uL Neut # (Auto) 3.20 (1.40-6.50) K/uL Lymph # (Auto) 0.24 L (1.20-3.40) K/uL [place] # (Auto) 0.42 (0.11-0.59) K/uL Eos # (Auto) 0.07 (0.00-0.50) K/uL Baso # (Auto) 0.02 (0.00-0.20) K/uL Comprehensive Metabolic Panel 08/02/24 Range/Units 07:02 Sodium 137 (136-145) mmol/L Potassium 3.6 (3.5-5.1) mmol/L Chloride 109 H (98-107) mmol/L Carbon Dioxide 26 (21-32) mmol/L BUN 16 (6-23) mg/dl Creatinine 0.86 (0.6-1.4) mg/dl Glucose 144 H (70-99(Fasting)) mg/dl Calcium 8.2 L (8.6-10.3) mg/dl AST 69 H (13-39) U/L ALT 62 H (7-52) U/L Alkaline Phosphatase 68 (34-104) U/L Total Protein 5.7 L (6.0-8.3) gm/dl Albumin 3.2 L (3.4-5.0) gm/dl Intake and Output 08/01/24 08/02/24 08/02/24 22:59 06:59 14:59 Intake Total 400 / 3073.525 575 / 3073.525 674.628 / 674.628 Output Total 500 / 1200 250 / 1200 800 / 800 Balance -100 / 1873.525 325 / 1873.525 -125.372 / -125.372 Intake: IV 400 / 2523.525 475 / 2523.525 674.628 / 674.628 Amiodarone / D5w 360 mg In 200 200 / 379.525 231.295 / 231.295 ml @ 0.5 MG/MIN 16.667 mls/hr IV .Q12H DANYEL Rx#:[id number] Ampicillin 2,000 mg In Sodium 200 / 400 200 / 400 200 / 200 Chlor 0.9% Mini-B 100 ml @ 200 mls/hr IV Q4H DANYEL Rx#:[id number] Vancomycin HCl 1,250 mg In 275 / 550 Sodium Chloride 0.9% 250 ml @ 200 mls/hr IV Q12H DANYEL Rx#: [id number] Vancomycin HCl 1,500 mg In 193.333 / 193.333 Sodium Chloride 0.9% 500 ml @ 200 mls/hr IV Q12H DANYEL Rx#: [id number] cefTRIAXone SODIUM 2,000 mg In 50 / 50 50 ml @ 100 mls/hr IV Q12 [facility] Rx#:[id number] Oral 100 / 550 Output: Urine 500 / 1200 250 / 1200 800 / 800 Other: Weight 105.5 kg 105.3 kg Diagnostic Findings Telemetry reviewed: AV paced rhythm ADOLFO report reviewed: Mobile echodensity adherent to the ICD lead as it transverses through the right atrium. Image consistent with vegetation or thrombus 26 mm Edward Roxana TAVR bioprosthesis is present No significant bioprosthetic AVR No vegetation visualized LA is moderately dilated No thrombus detected in the LA appendage Medications Administered Current Inpatient Medications Acetaminophen (Acetaminophen 500 Mg Tab) 1,000 mg PO Q8H PRN PRN Reason: Pain Stop: 08/30/24 11:16 Last Admin: 08/01/24 19:25 Dose: 1,000 mg Amiodarone HCl (Amiodarone 200 Mg Tab) 200 mg PO BIDM DANYEL Stop: 09/01/24 16:59 Aspirin (Aspirin 81 Mg Chew) 81 mg PO DAILY DANYEL Stop: 08/30/24 11:44 Last Admin: 08/02/24 09:37 Dose: 81 mg Cyanocobalamin (Cyanocobalamin (B-12) 500 Mcg Tablet) 1,000 mcg PO DAILY DANYEL Stop: 08/31/24 08:59 Last Admin: 08/02/24 08:24 Dose: 1,000 mcg Dextrose (Dextrose 50% 50 Ml Syringe) 25 - 50 ml IV UD PRN; Protocol PRN Reason: Hypoglycemia Protocol Stop: 08/30/24 11:29 Finasteride (Finasteride 5 Mg Tab) 5 mg PO QAM DANYEL Stop: 08/30/24 11:44 Last Admin: 08/02/24 08:26 Dose: 5 mg Folic Acid (Folic Acid 1 Mg Tab) 1 mg PO DAILY DANYEL Stop: 08/31/24 08:59 Last Admin: 08/02/24 08:26 Dose: 1 mg Glucagon (Glucagon For Inj 1 Mg Vial) 1 mg SQ UD PRN; Protocol PRN Reason: Hypoglycemia Protocol Stop: 08/30/24 11:29 Glucose (Glucose 40% Gel 15 Gm Tube) 15 - 30 gm PO UD PRN; Protocol PRN Reason: Hypoglycemia Protocol Stop: 08/30/24 11:29 Glucose (Glucose 10 Tab/Tube) 4 - 8 tab PO UD PRN; Protocol PRN Reason: Hypoglycemia Protocol Stop: 08/30/24 11:29 Heparin Sodium (Porcine) (Heparin Sod 5,000 Unit/0.5 Ml Vial) 5,000 units SQ Q8 DANYEL Stop: 08/30/24 13:59 Last Admin: 08/02/24 14:01 Dose: 5,000 units Ampicillin Sodium 2,000 mg/ (Sodium Chloride) 100 mls @ 200 mls/hr IV Q4H DANYEL Stop: 09/12/24 15:29 Last Infusion: 08/02/24 12:55 Dose: Infused Sodium Chloride (Nss) 100 mls @ 15 mls/hr IV .Q6H40M PRN PRN Reason: For Transfusion Duration Stop: 08/02/24 16:57 Ceftriaxone Sodium (Rocephin) 2,000 mg in 50 mls @ 100 mls/hr IV Q12 DANYEL Stop: 09/13/24 11:44 Last Infusion: 08/02/24 12:55 Dose: Infused Insulin Aspart (Insulin Aspart Per Unit Charge) 0 units SC ACHS DANYEL Stop: 08/30/24 11:29 Last Admin: 08/02/24 12:27 Dose: 11 units Insulin Glargine (Lantus Per Unit Charge) 10 units SC BID DANYEL Stop: 09/01/24 08:59 Last Admin: 08/02/24 09:35 Dose: 10 units Lactobacillus Acidophilus (Advanced Probiotic 625 Mg Capsule) 1,250 mg PO DAILY DANYEL Stop: 08/30/24 14:14 Last Admin: 08/02/24 08:24 Dose: 1,250 mg Latanoprost (Latanoprost 0.005% Op Soln 2.5 Ml Btl) 1 drops OPB HS DANYEL Stop: 08/30/24 20:59 Last Admin: 08/01/24 20:29 Dose: 1 drops Magnesium Hydroxide (Magnesium Hydroxide Susp 30 Ml Udc) 30 ml PO Q12H PRN PRN Reason: Constipation Stop: 08/30/24 11:16 Metoprolol Succinate (Metoprolol Succ 50mg Ext Rel Tab) 50 mg PO QAM DANYEL Stop: 08/30/24 11:44 Last Admin: 08/02/24 08:25 Dose: 50 mg Miscellaneous (Carbohydrates For Hypoglycemia ) 15 - 30 gm PO UD PRN PRN Reason: Hypoglycemia Protocol Stop: 08/30/24 11:29 Miscellaneous Information (Pharmacy Glycemic Mgmt Consult) 1 each N/A UD PRN PRN Reason: Consult Stop: 08/30/24 11:29 Multivitamins (Multivitamin Tab) 1 tab PO QAM DANYEL Stop: 08/31/24 08:59 Last Admin: 08/02/24 08:26 Dose: 1 tab Pantoprazole Sodium (Pantoprazole 40 Mg Tab) 40 mg PO DAILY DANYEL Stop: 08/30/24 11:44 Last Admin: 08/02/24 08:26 Dose: 40 mg Rosuvastatin Calcium (Rosuvastatin Calcium 20 Mg Tab) 40 mg PO HS DANYEL Stop: 08/30/24 20:59 Last Admin: 08/01/24 20:31 Dose: 40 mg Tamsulosin HCl (Tamsulosin Hcl 0.4 Mg Cap) 0.4 mg PO HS DANYEL Stop: 08/30/24 20:59 Last Admin: 08/01/24 20:30 Dose: 0.4 mg Vitamin D (Cholecalciferol 125 Mcg (5,000 Units) Tab) 125 mcg PO DAILY DANYEL Stop: 08/30/24 11:44 Last Admin: 08/02/24 08:24 Dose: 125 mcg
[2024-08-02] MEDS: AMIODARONE 200 MG TAB PO SCH (16:23)
--- NOTE | 2024-08-02 16:29 | Communication Note ---
Attending Addendum ADOLFO showed a mobile echodensity adherent to the ICD lead, consistent w/ vegetation, suggesting CIED infection. Enterococcus turned out to be susceptible to ampicillin. I agree w/ stopping vancomycin iv and started high dose ceftriaxone (2 gm iv q12 hours), continuing ampicillin 2 gm iv q4 hours. PPM is to be removed tomorrow (08/03). Granted that the procedure gets done w/o complication and the repeat blood cultures from 08/02/24 remain negative, I recommend the followin. Continue CTX 2 gm iv q12 hours and ampicillin 2 gm iv q4 hours (or 12 gm/24 hours continuous infusion) to complete total 6 weeks from 08/03 to 09/13/24 2. Check CBC w/ diff and CMP while on abx therapy 3. Consider implantation of a new device at least 72 hours post explantation of the old device granted the patient remains clinically stable. 4. The patient will need f/u w/ outpatient ID clinic w/in 4-6 weeks 5. ID signing off at this time. Please, contact ID if any concern or question s. Date of Service: August 02, 2024 patient was Enterococcus faecalis bacteremia, ampicillin sensitive, mobile echodensities identified on ICD lead via ADOLFO. Agree with removal, luckily his blood cultures have become negative, reasonable to deescalate to ampicillin and ceftriaxone and if patient continues expectedly With consistently cleared blood cultures he can continue these antibiotics for a total of 6 weeks from the date of lead removal. - discontinue vancomycin - ceftriaxone 2 g IV q.12 hours - ampicillin 2 g IV q.4 hours or 12 g every 24 hours continuous infusion To complete total of 6 weeks from 08/0309/13/2024 ( based on removal date) - CBC with differential, CMP q.week while on antibiotics - reasonable to replace new device after at least 72 hours as long as patient remains stable - patient will need follow-up in ID Clinic within 4-6 weeks Appreciate consultation, Infectious Disease will sign off at this time. please do not hesitate to reach out for any further questions or concerns. Israel Parada MD PGY5 Infectious Disease
[2024-08-02] MEDS: IRON SUCROSE 300 MG in SODIUM CHLORIDE 0.9% 250 ML IV ONE (17:10)
[2024-08-02] MEDS: ONDANSETRON INJ 2 MG/ML 2 ML VIAL IV PRN (18:18)
[2024-08-02] MEDS: MoRPHine SULFATE 2 MG/ML CARP IV ONE (18:18)
--- NOTE | 2024-08-02 18:27 | Communication Note ---
Date of Service: August 02, 2024 Patient noted to have right upper extremity swelling associated with erythema and pain. Suspected thrombophlebitis. Will check Dopplers to rule out throm bosis. Compression, ice, upper extremity elevation recommended. Pain control as needed.
--- NOTE | 2024-08-02 19:09 | Ultrasound Report ---
Clinical History: Pain Technique: Doppler sonography was performed of the right arm veins Findings: There is apparent thrombus within the right cephalic vein The right jugular, subclavian, axillary, brachial, basilic, radial, and ulnar veins all appear patent with normal anechoic lumens and full compressibility. Expected Doppler waveforms were noted. No definite soft tissue mass or fluid collection is seen. Impression: 1. Superficial venous thrombosis involving the right cephalic vein 2. No evidence of right arm deep venous thrombosis ACT 112: Positive. There are findings on this exam that require communication between the performing entity and the patient following Patient Test Result Information Act ([place] ACT 112) guidelines. Electronically signed by Alvin Fernandez 08-02-2024 7:09 PM
[2024-08-03 07:18] LABS: Hematocrit (blood only) 24.8 % (42.0-52.0); Hemoglobin 7.2 g/dl (14.0-18.0); Mean Corpuscular Hemoglobin 23.6 pg (25.0-34.0); Mean Corpuscular Volume 81.3 fL (80.0-100.0); Mean Platelet Volume 12.3 fL (9.4-12.4); Platelet Count 107 K/uL (130-400); RDW Coefficient of Variation 19.9 % (11.5-14.5); RDW Standard Deviation 58.3 fL (36.4-46.3); Red Blood Count 3.05 M/uL (4.70-6.10); White Blood Count 4.92 K/ul (4.8-10.8)
[2024-08-03 07:46] LABS: Albumin Globulin Ratio 1.2 (0.9-2); Albumin Level 3.2 gm/dl (3.4-5.0); BUN Creatinine Ratio 13.7 (10-20); Bilirubin,Total 0.5 mg/dl (0.2-1.0); Calcium 8.4 mg/dl (8.6-10.3); Creatinine Clr Calc Pharmacy 87.4 ml/min; Globulin 2.6 gm/dl (2.5-4.0); Magnesium 2.2 mg/dl (1.7-2.4); Total Protein 5.8 gm/dl (6.0-8.3)
[2024-08-03] MEDS: LANTUS PER UNIT CHARGE SC ONE (08:21)
--- NOTE | 2024-08-03 09:31 | Pharmacy Report ---
Pharmacy Glycemic Short Note 2 - Date of Service August 03, 2024 - Glycemic Short BSG Results (Last 24 hours): 08/02/24 08/02/24 08/02/24 11:20 16:38 17:56 Glucose POC Glucose 236 H 156 H 163 H 08/02/24 08/03/24 08/03/24 20:24 06:12 07:25 Glucose 158 H POC Glucose 161 H 177 H OUTPATIENT ANTIDIABETIC REGIMEN: * Metformin 1 g PO BIDM * Glimepiride 2 mg PO qAM HbA1c: 6.1% (07/05/24) ASSESSMENT: 08/03/24 * Patient received a total of 43 units of insulin yesterday (20units were basal and 23units were bolus). * BSGs remained above goal range yesterday ([id number]/dL) although they were improved from the previous day. * Fasting BSG was 177mg/dL this morning. Patient was made NPO starting after midnight last night for pacer removal this afternoon. The dose of Lantus was decreased for this morning as patient likely wont be eating until late afternoon. * Bolus insulin regimen to be continued as ordered, may need to tighten parameters once diet is restarted. 08/01/24: * Blood sugars elevated yesterday, ranging 197-227 mg/dL following consult * Received 32 units of insulin (15 units of basal and 17 units of prandial/correctional bolus) * NPO today for ADOLFO to assess for prosthetic valve IE - currently on broad spectrum antimicrobial regimen (vanco, gentamicin, and cefepime) * Currently receiving amiodarone gtt (mixed in dextrose) 07/31/24: * RB is a 69 year old male admitted for sepsis secondary to currently unidentified source (concern for prosthetic valve infective endocarditis) * Blood sugar on presentation is 236 mg/dL, pharmacy consulted for glycemic management * Will give conservative Lantus dose for now and weight-based stress of 2 Novolog * Patient was hyperglycemic during last several inpatient stays here without basal insulin * Diet ordered PLAN FOR INPATIENT GLYCEMIC CONTROL: * Hold outpatient oral diabetes medications * Basal insulin * Lantus 5 units SQ this morning (reduced for NPO through afternoon), then 10 units SQ BID starting this evening. * Bolus insulin * NovoLog per scale ACHS or Q6hrs while NPO * Goal Range: Low 120 mg/dL - High 150 mg/dL * Correction Factor: 20 mg/dL/unit * Nutritional / Prandial insulin per carb ratio of 1 unit per 7 grams CHO consumed
[2024-08-03] MEDS: MoRPHine SULFATE 2 MG/ML CARP IV PRN (12:37)
--- NOTE | 2024-08-03 14:41 | Pre Anesthesia Assessment ---
Date of Service August 03, 2024 Pre Sedation Assessment Vital Signs Temp Pulse Pulse Resp BP Pulse Ox O2 Del Method 08/03/24 14:11 67 08/03/24 13:56 36.9 C 62 14 92 Room Air 08/03/24 10:38 36.7 C 65 19 143/84 H 91 Room Air 08/03/24 08:00 68 08/03/24 07:28 36.5 C 74 18 130/75 91 Room Air 08/03/24 03:51 36.5 C 77 18 144/68 H 92 BiPAP 08/02/24 23:05 84 21 94 08/02/24 22:54 36.3 C L 66 17 112/62 93 BiPAP 08/02/24 22:00 69 08/02/24 20:00 Room Air 08/02/24 19:29 37.2 C 66 18 124/72 93 Room Air 08/02/24 17:28 38.6 C H 65 16 123/74 95 Room Air 08/02/24 16:30 36.7 C 69 14 141/73 H 95 Room Air 08/02/24 16:05 36.7 C 69 18 141/73 H 95 Room Air Cardiovascular RRR, no murmur, no edema Respiratory normal respiratory effort, lungs clear to auscultation Pre-Sedation Airway Assessment Smoking Status: Former smoker Hx Sleep Apnea: No Hx Difficult Intubation: No Short, Thick Neck: No Thyromental Distance: > or= 3.5 Finger Breadths Oral Cavity: + WNL Mallampati Class: III ASA: ASA3 NPO Status Date of Last Intake of Fluids: 08/02/24 Time of Last Intake of Fluids: 18:30 Date of Last Intake of Solid Food: 08/02/24 Time of Last Intake of Solid Foods: 18:30 Procedure Planning Contraindications for Sedation: none Current Medications Reviewed: Yes Notes The planned sedation has been discussed with the patient. Informed Consent was obtained. I have identified the patient, determined the appropriateness of sedation and have assessed the patient immediately prior to the procedure. All medicine(s) and interventions are by my order.
--- NOTE | 2024-08-03 14:41 | History & Physical Bridge Note ---
Date of Service August 03, 2024 History & Physical Bridge Note I have examined the patient, reviewed the History & Physical and in the interval since the performance of the History & Physical I have noted the following changes of clinical significance: pt admitted and found to be bacteremic with enterococcus unclear etiology. ADOLFO revealed vegetation on the ICD wire and he is recommended a BiV ICD extraction. Discussed the procedure and potential risks; consents signed.
--- NOTE | 2024-08-03 14:42 | Hospitalist Progress Note ---
Date of Service August 03, 2024 Assessment & Plan (1) Severe sepsis: Plan: Rafael Cantu is a 69y/o M with PMHx significant for severe aortic stenosis s/p TAVR on 06/19/24, chronic LBBB, Mobitz type 2 second degree AV block s/p pacemaker placement on 07/02/24 with postoperative course complicated by episodes of sustained ventricular tachycardia requiring upgrade to an ICD on 07/04/24, HTN, HLD, mild nonobstructive CAD, DMII with diabetic nephropathy, REMBERTO on CPAP, pulmonary emphysema, longstanding iron deficiency anemia, BPH with LUTS, benign paroxysmal vertigo, glaucoma of both eyes, depression, GERD and generalized osteoarthritis who presented to the ED via EMS with complaints of fever, chills and generalized weakness. Patient with recent invasive cardiac procedures including TAVR on 06/19/24 for severe and pacemaker placement on 07/02/24 with postoperative course complicated by episodes of sustained ventricular tachycardia requiring upgrade to an ICD on 07/04/24. 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 EF 55 to 60%. Moderate concentric LVH. TAVR bioprosthesis is present. No significant bioprosthetic aortic valve regurgitation. Gradient is normal for prosthetic arctic valve. Moderate mitral annular calcification. Mild tricuspid regurgitation. Estimated systolic blood pressure 43 mmHg. No evidence of vegetation within the limitations of imaging modality. --ICD site nonerythematous --S/P ADOLFO: Mobile echodensity) to the ICD lead as it transverses through the right atrium. Imaging consistent with vegetation or thrombus. Left atrium is moderately dilated. No thrombus detected in the left atrial appendage. 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 Patient has been receiving IV Venofer as outpatient Currently no signs of bleeding Monitor CBC closely Anemia workup reviewed Needs follow-up with hematology on discharge Will give a dose of IV Venofer today Thrombocytopenia improving Hemoglobin 7.2 today Atrial flutter with rapid ventricular response--POA ICD interrogation IV amiodarone discontinued Continue amiodarone, metoprolol Not on anticoagulation due to anemia, thrombocytopenia Appreciate cardiology input Right cephalic vein thrombosis Likely due to IV line placement IV line removed Given high risk for thrombosis, patient may need to be started on IV anticoagulation Plan to start on low-dose IV heparin when appropriate after ICD extraction (2) Elevated troponin: Plan: Likely demand ischemia secondary to sepsis, atrial flutter RVR (3) History of transcatheter aortic valve replacement (TAVR): Plan: Severe s/p TAVR performed on 06/19/24 at [facility]. Follows with [facility] as an outpatient. (4) Hyponatremia: Plan: Resolved with IV fluids Monitor sodium levels (5) Thrombocytopenia: Plan: Likely secondary to sepsis Currently no acute bleeding issues Monitor platelet count Stable (6) Hyperlipidemia: Plan: Continue statin (7) CAD (coronary artery disease): Plan: Continue aspirin, metoprolol, statin (8) History of sustained ventricular tachycardia: (9) S/P ICD (internal cardiac defibrillator) procedure: Plan: Mobitz type 2 second degree AV block s/p pacemaker placement on 07/02/24 with postoperative course complicated by episodes of sustained ventricular tachycardia requiring upgrade to an ICD on 07/04/24. Other Chronic Medical Conditions: REMBERTO - Continue CPAP HS. HTN -continue current medications, monitor blood pressure DVT Px SQ Heparin Code Status: DNR/DNI Disposition: PT OT prior to discharge Admission and Anticipated Discharge Date Admission Date: July 31, 2024 Subjective Patient is seen and examined at bedside Complains of right on pain, erythema, swelling No other complaints today Plan for ICD extraction today Discussed with cardiology today Denies any chest pain, dyspnea, nausea, vomiting, abdominal pain, dizziness Review of Systems Review of Systems: All systems reviewed & are unremarkable except as noted in Subjective Physical Exam Physical Exam: Physical Exam: Vitals signs as noted above General Appearance:Obese, no apparent distress Head: normocephalic, Atraumatic Eyes: normal inspection, EOMI Neck: supple, Trachea midline Respiratory/Chest: Decreased breath sounds, CTA, No accessory muscle use Cardiovascular: S1, S2, no murmur Abdomen/GI:Soft, Non tender, Bowel sounds present Extremities/Musculoskeletal:normal inspection, 1+ edema, right upper extremity swelling, erythema, tender Neurologic/Psych:AAOX3, grossly no focal neurological deficits Skin: normal color, warm Results & Data Results & Data Vital Signs (Past 12 Hours) Vital Signs Temp Pulse Pulse Resp BP Pulse Ox O2 Del Method 08/03/24 14:11 67 08/03/24 13:56 36.9 C 62 14 92 Room Air 08/03/24 10:38 36.7 C 65 19 143/84 H 91 Room Air 08/03/24 08:00 68 08/03/24 07:28 36.5 C 74 18 130/75 91 Room Air 08/03/24 03:51 36.5 C 77 18 144/68 H 92 BiPAP Laboratory Results Short CBC 08/03/24 Range/Units 06:12 WBC 4.92 (4.8-10.8) K/ul Hgb 7.2 L (14.0-18.0) g/dl Hct 24.8 L (42.0-52.0) % Plt Count 107 L (130-400) K/uL BMP 08/03/24 06:12 Sodium 138 Potassium 4.0 Chloride 105 Carbon Dioxide 26 BUN 13 Creatinine 0.95 Glucose 158 H Calcium 8.4 L Liver Function 08/03/24 Range/Units 06:12 Total Bilirubin 0.5 (0.2-1.0) mg/dl AST 38 (13-39) U/L ALT 49 (7-52) U/L Alkaline Phosphatase 69 (34-104) U/L Albumin 3.2 L (3.4-5.0) gm/dl (6) Hyperlipidemia Hyperlipidemia type: unspecified Qualified Code(s): E78.5 - Hyperlipidemia, unspecified (7) CAD (coronary artery disease) Coronary Disease-Associated Artery/Lesion type: unspecified vessel or lesion type [place] vs. transplanted heart: [place] heart Associated angina: unspecified whether angina present Qualified Code(s): I25.10 - Atherosclerotic heart disease of [place] coronary artery without angina pectoris
[2024-08-03] MEDS: ceFAZolin 330 MG/ML 1 GM VIAL ONE (15:13)
[2024-08-03] MEDS: LIDOCAINE 1% LOCAL 20 ML VIAL ONE (15:14)
[2024-08-03] MEDS: VANCOMYCIN HCL 1000MG/20ML VIAL ONE (15:14)
[2024-08-03] MEDS: WATER, STERILE FOR INJ 10 ML VIAL ONE (15:14)
[2024-08-03] MEDS: BUPIVACAINE 0.25% PF 30 ML VIAL ONE (15:14)
[2024-08-03] MEDS: MIDAZOLAM HCL 5 MG/ML 1 ML VIAL ONE (15:58)
[2024-08-03] MEDS: fentaNYL citrate PF 100 MCG/2 ML VIAL ONE (15:58)
--- NOTE | 2024-08-03 16:11 | Post Anesthesia Assessment ---
Date of Service August 03, 2024 Post Sedation Assessment Vital Signs Temp Pulse Pulse Resp BP Pulse Ox O2 Del Method 08/03/24 14:11 67 08/03/24 13:56 36.9 C 62 14 92 Room Air 08/03/24 10:38 36.7 C 65 19 143/84 H 91 Room Air 08/03/24 08:00 68 08/03/24 07:28 36.5 C 74 18 130/75 91 Room Air 08/03/24 03:51 36.5 C 77 18 144/68 H 92 BiPAP 08/02/24 23:05 84 21 94 08/02/24 22:54 36.3 C L 66 17 112/62 93 BiPAP 08/02/24 22:00 69 08/02/24 20:00 Room Air 08/02/24 19:29 37.2 C 66 18 124/72 93 Room Air 08/02/24 17:28 38.6 C H 65 16 123/74 95 Room Air 08/02/24 16:30 36.7 C 69 14 141/73 H 95 Room Air Recovery Score Activity: Moves 4 extremities Respiration: Deep Breath/Cough Circulation: +/-20% PreAnes Value Consciousness: Fully Awake Oxygen Saturation: > 92% On Room Air Post Anesthesia Score: 10 Discharge Sedation Level of Care: Fast Track Phase II Post Sedation Plan On clinical assessment, the patient appears to have tolerated the sedation without complications. Patient is recovering as anticipated. Patient will continue to be monitored by nursing and may be discharged when sedation discharge criteria are met per below protocol. Upon Completions of procedure up to 15 minutes continue every 5 minute vital signs and the P.A.R. score; then discharge to a Phase I or Fast Track to Phase II per the following guidelines: * Discharge Patient to appropriate Phase II area if PAR is 8 or greater or return to pre- procedure baseline. The post - procedure orders will be as di rected. * If PAR score is less than 8 or not return to pre-procedure baseline then patient will follow Phase I monitoring till PAR is reached for Phase II. The Phase I may be done in procedure room or may call to secure a Phase I area. * If naloxone or flumazenil are used for reversal, hold in Phase I for continued monitoring from when last reversal dose was given for a minimum of 60 minutes or longer pending the nurse and/or physician discretion of patient condition before discharge to Phase II. Please call the Sedation Physician to re-evaluate and complete post-note for discharge to Phase II area. Do NOT discharge from procedure sedation or Phase 1 until post- sedation evaluation note is complete by procedure /sedation MD Sedation Discharge Instructions to be given to the patient at discharge to home.
[2024-08-03] MEDS ORDERED: oxyCODONE/ACETAMINOPHEN 5mg/325mg TAB PO PRN (16:24)
--- NOTE | 2024-08-03 16:29 | Cardiology Progress Note ---
Date of Service August 03, 2024 Assessment & Plan (1) Endocarditis: (2) Enterococcal bacteremia: (3) S/P ICD (internal cardiac defibrillator) procedure: (4) History of sustained ventricular tachycardia: (5) History of transcatheter aortic valve replacement (TAVR): Plan Complex 69-year-old patient admitted with severe sepsis and new onset atrial flutter with rapid ventricular response. Antitachycardia pacing performed yesterday with return to sinus rhythm. Transesophageal echocardiogram demonstrating ICD lead vegetation. Blood cultures positive for Enterococcus. No recurrent fevers. Telemetry revealing sinus rhythm with V-pacing. Recommendations: * Device extraction today. * Antibiotic therapy and supportive care per internal medicine. * Continue oral amiodarone 200 mg twice daily. * Continue metoprolol 50 mg daily. * Supplement electrolytes as indicated. * Maintain serum potassium greater than 4.0 and serum magnesium greater than 2.0. Good Crenshaw DO [facility] Admission and Anticipated Discharge Date Admission Date: July 31, 2024 Subjective 69-year-old male seen examined the bedside. Diagnosed with a upper extremity superficial thrombophlebitis related to IV site. Feeling fatigued today. Telemetry reveals paced rhythm. No chest pain or shortness of breath at rest. Review of Systems Review of Systems: All systems reviewed & are unremarkable except as noted in Subjective Physical Exam Constitutional: well nourished and + obese Respiratory: normal respiratory effort Auscultation: no crackles, no rales, no rhonchi and no wheezes Results & Data Vital Signs (Past 12 Hours) Vital Signs Temp Pulse Pulse Resp BP Pulse Ox O2 Del Method 08/03/24 14:11 67 08/03/24 13:56 36.9 C 62 14 92 Room Air 08/03/24 10:38 36.7 C 65 19 143/84 H 91 Room Air 08/03/24 08:00 68 08/03/24 07:28 36.5 C 74 18 130/75 91 Room Air (1) Endocarditis Chronicity: acute Endocarditis type: infective Infective endocarditis organism: bacterial Qualified Code(s): I33.0 - Acute and subacute infective endocarditis
[2024-08-03 17:11] LABS: Hematocrit (blood only) 26.2 % (42.0-52.0); Hemoglobin 7.6 g/dl (14.0-18.0)
[2024-08-03] MEDS: IRON SUCROSE 300 MG in SODIUM CHLORIDE 0.9% 250 ML IV ONE (18:37)
[2024-08-03] MEDS: LANTUS PER UNIT CHARGE SC SCH (20:53)
[2024-08-04] MEDS: NITROGLYCERIN SL 0.4 MG/TAB TAB SL PRN (01:58)
[2024-08-04] MEDS: NITROGLYCERIN SL 0.4 MG/TAB TAB ONE (01:59)
[2024-08-04] MEDS: oxyCODONE HCL IR 5 MG TAB (IMMEDIATE RELEASE) PO PRN (01:59)
[2024-08-04 02:31] LABS: Basophils # (auto) 0.05 K/uL (0.00-0.20); Basophils % (auto) 0.8 %; Eosinophils # (auto) 0.22 K/uL (0.00-0.50); Eosinophils % (auto) 3.4 %; Hemoglobin 7.3 g/dl (14.0-18.0); Immature Granulocytes # (auto) 0.11 K/uL (0.01-0.20); Immature Granulocytes % (auto) 1.7 %; Lymphocytes # (auto) 0.44 K/uL (1.20-3.40); Lymphocytes % (auto) 6.7 %; Mean Corpuscular Hemoglobin 23.5 pg (25.0-34.0); Mean Corpuscular Hgb Conc 29.2 g/dL (32.0-36.0); Mean Corpuscular Volume 80.4 fL (80.0-100.0); Mean Platelet Volume 11.1 fL (9.4-12.4); Monocytes # (auto) 0.63 K/uL (0.11-0.59); Monocytes % (auto) 9.6 %; Neutrophils # (auto) 5.11 K/uL (1.40-6.50); Neutrophils % (auto) 77.8 %; Nucleated RBC # (auto) 0.02 K/uL (0.00-0.12); Nucleated RBC % (auto) 0.3 %; Platelet Count 141 K/uL (130-400); RDW Coefficient of Variation 20.1 % (11.5-14.5); RDW Standard Deviation 57.8 fL (36.4-46.3); Red Blood Count 3.11 M/uL (4.70-6.10); White Blood Count 6.56 K/ul (4.8-10.8)
[2024-08-04 02:50] LABS: Albumin Globulin Ratio 1.2 (0.9-2); Albumin Level 3.2 gm/dl (3.4-5.0); BUN Creatinine Ratio 10.6 (10-20); Bilirubin,Total 0.5 mg/dl (0.2-1.0); Calcium 8.6 mg/dl (8.6-10.3); Creatinine Clr Calc Pharmacy 79.8 ml/min; Globulin 2.7 gm/dl (2.5-4.0); Potassium 3.7 mmol/L (3.5-5.1); Total Protein 5.9 gm/dl (6.0-8.3)
[2024-08-04 02:56] LABS: Troponin I High Sensitivity 7.5 pg/ml (0-20)
[2024-08-04 03:01] LABS: Partial Thromboplastin Ratio 1.2; Partial Thromboplastin Time 32 Seconds (21-31)
[2024-08-04 03:13] LABS: Ovalocytes 1+; Polychromasia 1+
--- NOTE | 2024-08-04 03:42 | CT Scan Report ---
EXAM: CT angio chest PE protocol CLINICAL HISTORY: cp TECHNIQUE: Contiguous axial images were obtained from the neck base through the upper abdomen following intravenous administration of iodinated contrast material. Angiographic images were processed, 3D MIP images were acquired for interpretation. If IV contrast material had not been administered, the likelihood of detecting abnormalities relevant to the patient's condition would have been substantially decreased. Coronal and sagittal 3-D MIPs were likewise performed and indicated to increase the sensitivity of detectin diffuse clinically relevant pathology. CT scan was performed according to ALARA (as low as reasonably achievable). COMPARISON: CT, 07/31/2024 09:54:55 [place] FINDINGS: Adequate contrast bolus without evidence of pulmonary embolism. Dilated main pulmonary artery, [id number]. Prosthetic aortic valve is seen. Enlarged right paratracheal, lower pretracheal, subcarinal and prevascular lymph nodes seen, largest measuring [id number]. The central airways are patent. Bilateral mild pleural effusion with adjacent basal atelectasis. Smooth interlobular septal thickening seen in bilateral lungs, predominantly in bilateral upper lobes and smooth fissural thickening Centrilobular emphysematous changes in bilateral upper lobes. The heart, aorta, and pulmonary arteries are of normal size and configuration. There are no appreciable coronary artery and aortic atherosclerotic calcifications. No pericardial effusion is identified. The thyroid is unremarkable. No hilar, or axillary lymphadenopathy is noted. No suspicious lytic or sclerotic osseous lesions are identified. Significant degenerative changes in visualized spine. IMPRESSION: 1. No evidence of pulmonary embolism. 2. Stable dilated main pulmonary artery. 3. Interval development of bilateral pleural effusion and smooth interlobular septal thickening in bilateral lungs, predominantly in bilateral upper lobes and smooth fissural thickening-- Likely changes of Pulmonary edema. 4. Stable Centrilobular emphysematous changes in bilateral upper lobes. 5. Interval mild increase in size of mediastinal lymph nodes. Electronically signed by Ollie Baumann 08-04-2024 03:41 AM
[2024-08-04] MEDS: OPTIRAY 320 125ml IV ONE (04:02)
[2024-08-04] MEDS: MoRPHine SULFATE 4 MG/ML 1 ML CARP\\VIAL IV PRN (05:45)
--- NOTE | 2024-08-04 08:02 | Electrocardiogram Report ---
Test Reason : Blood Pressure : */* mmHG Vent. Rate : 66 BPM Atrial Rate : 66 BPM P-R Int : 264 ms QRS Dur : 114 ms QT Int : 430 ms P-R-T Axes : 54 -17 33 degrees QTcB Int : 450 ms Sinus rhythm with 1st degree A-V block Incomplete left bundle block Borderline ECG When compared with ECG of 01-Aug-2024 09:08, Sinus rhythm has replaced Atrial flutter Incomplete left bundle block is now Present Criteria for Inferior infarct no longer present Confirmed by Dixon Moreno ([id number] on 08/04/2024 8:01:59 AM Referred By: Renny Mullins Confirmed By: Dixon Moreno
[2024-08-04] MEDS: FUROSEMIDE INJ 20 MG/2 ML VIAL IV ONE (10:32)
--- NOTE | 2024-08-04 14:11 | Cardiology Progress Note ---
Date of Service August 04, 2024 Assessment & Plan (1) Endocarditis: (2) Enterococcal bacteremia: (3) S/P ICD (internal cardiac defibrillator) procedure: (4) History of sustained ventricular tachycardia: (5) History of transcatheter aortic valve replacement (TAVR): Plan Complex 69-year-old patient admitted with severe sepsis and new onset atrial flutter with rapid ventricular response. Antitachycardia pacing performed yesterday with return to sinus rhythm. Transesophageal echocardiogram demonstrating ICD lead vegetation. Blood cultures positive for Enterococcus. No recurrent fevers. Telemetry revealing sinus rhythm in the 60s overnight. Recommendations: * s/p Device extraction * Antibiotic therapy and supportive care per internal medicine. * Continue oral amiodarone 200 mg twice daily. * Continue metoprolol 50 mg daily. * Supplement electrolytes as indicated. * Maintain serum potassium greater than 4.0 and serum magnesium greater than 2.0. I provided 55 min of care to the patient in regards to management of atrial flutter and ICD lead vegetation s/p extraction. Floyd Beach MD Admission and Anticipated Discharge Date Admission Date: July 31, 2024 Subjective 69-year-old male seen examined the bedside. Diagnosed with a upper extremity superficial thrombophlebitis related to IV site. Feeling fatigued today. Telemetry reveals paced rhythm. No chest pain or shortness of breath at rest. Having back pain, which has improved since last night Review of Systems Review of Systems: All systems reviewed & are unremarkable except as noted in HPI & below Physical Exam Physical Exam: GEN: AAOx3; NAD HEENT: Cannot assess JVD CV: Regular rate and rhythm, No M/R/G PULM: CTA b/l; no wheezes, rales, or rhonchi ABD: soft; NTND EXT: trace lower extremity edema NEURO: deferred. Results & Data Vital Signs (Past 12 Hours) Vital Signs Temp Pulse Pulse Resp BP BP Pulse Ox 08/04/24 11:35 36.4 C L 64 19 128/70 92 08/04/24 09:35 79 08/04/24 07:01 36.7 C 73 19 152/76 H 91 08/04/24 04:17 36.5 C 71 18 136/73 86 L 08/04/24 04:00 65 20 91 O2 Del Method FiO2 08/04/24 11:35 Room Air 08/04/24 09:35 08/04/24 07:01 Room Air 08/04/24 04:17 BiPAP 08/04/24 04:00 21 Laboratory Results Cardiac Enzymes 08/04/24 Range/Units 02:02 AST 24 (13-39) U/L Troponin I High Sens 7.5 (0-20) pg/ml Coagulation 08/04/24 Range/Units 02:02 APTT 32 H (21-31) Seconds CBC 08/03/24 08/04/24 Range/Units 16:47 02:02 WBC 6.56 (4.8-10.8) K/ul RBC 3.11 L (4.70-6.10) M/uL Hgb 7.6 L 7.3 L (14.0-18.0) g/dl Hct 26.2 L 25.0 L (42.0-52.0) % Plt Count 141 (130-400) K/uL Neut # (Auto) 5.11 (1.40-6.50) K/uL Lymph # (Auto) 0.44 L (1.20-3.40) K/uL [place] # (Auto) 0.63 H (0.11-0.59) K/uL Eos # (Auto) 0.22 (0.00-0.50) K/uL Baso # (Auto) 0.05 (0.00-0.20) K/uL Comprehensive Metabolic Panel 08/04/24 Range/Units 02:02 Sodium 138 (136-145) mmol/L Potassium 3.7 (3.5-5.1) mmol/L Chloride 105 (98-107) mmol/L Carbon Dioxide 29 (21-32) mmol/L BUN 11 (6-23) mg/dl Creatinine 1.04 (0.6-1.4) mg/dl Glucose 121 H (70-99(Fasting)) mg/dl Calcium 8.6 (8.6-10.3) mg/dl AST 24 (13-39) U/L ALT 40 (7-52) U/L Alkaline Phosphatase 78 (34-104) U/L Total Protein 5.9 L (6.0-8.3) gm/dl Albumin 3.2 L (3.4-5.0) gm/dl Intake and Output 08/03/24 08/04/24 08/04/24 22:59 06:59 14:59 Intake Total 615 / 1265 400 / 1265 250 / 250 Output Total 350 / 650 500 / 500 Balance 265 / 615 400 / 615 -250 / -250 Intake: IV 515 / 965 200 / 965 250 / 250 Ampicillin 2,000 mg In Sodium 200 / 600 200 / 600 200 / 200 Chlor 0.9% Mini-B 100 ml @ 200 mls/hr IV Q4H [facility] Rx#:[id number] Iron Sucrose 300 mg In Sodium 265 / 265 Chloride 0.9% 250 ml @ 176.667 mls/hr IV ONE ONE Rx#:[id number] cefTRIAXone SODIUM 2,000 mg In 50 / 100 50 / 50 50 ml @ 100 mls/hr IV Q12 [facility] Rx#:[id number] Oral 100 / 300 200 / 300 Output: Urine 350 / 650 500 / 500 Other: # Unmeasured Voids 1 Weight 110.4 kg Weight Measurement Method Standing Scale Medications Administered Home Medications Medication Instructions Recorded Confirmed Last Taken dutasteride 0.5 mg capsule 0.5 mg PO QAM 08/11/18 07/31/24 11/02/23 metformin 1,000 mg tablet 1,000 mg PO BID 08/11/18 07/31/24 07/01/24 multivitamin 1 tab PO QAM 08/11/18 07/31/24 06/28/23 rosuvastatin 40 mg tablet 40 mg PO 08/11/18 07/31/24 06/28/23 glimepiride 2 mg tablet 2 mg PO QA 08/22/20 07/31/24 11/02/23 tamsulosin 0.4 mg capsule 0.4 mg PO 10/01/20 07/31/24 06/28/23 timolol maleate 0.25 % eye drops 2 drp OPB DAILY 11/02/23 07/31/24 Unknown acetaminophen 500 mg tablet 1,000 mg PO DIRECTED PRN Pain 04/06/24 07/31/24 Unknown ##0 ascorbic acid (vitamin C) 1,000 mg 1 g PO BID 07/02/24 07/31/24 Unknown tablet (Vitamin C) aspirin 81 mg chewable tablet 81 mg PO DAILY 07/02/24 07/31/24 Unknown cholecalciferol (vitamin D3) 125 125 mcg PO DAILY 07/02/24 07/31/24 Unknown mcg (5,000 unit) tablet (Vitamin D3) folic acid 1 mg tablet 1 mg PO DAILY 07/02/24 07/31/24 Unknown cyanocobalamin (vitamin B-12) 1,000 mcg PO DAILY 07/04/24 07/31/24 Unknown 1,000 mcg tablet (Vitamin B-12) furosemide 20 mg tablet 20 mg PO DAILY PRN Weight Gain/Leg 07/04/24 07/31/24 07/03/24 Swelling latanoprost 0.005 % eye drops 1 drp OPB HS 07/04/24 07/31/24 Unknown pantoprazole 40 mg tablet,delayed 40 mg PO DAILY 07/04/24 07/31/24 Unknown release metoprolol succinate 50 mg 50 mg PO QAM 30 days #30 tabs 07/07/24 07/31/24 Unknown tablet,extended release 24 hr oxycodone 5 mg tablet 5 mg PO QID PRN SEVERE PAIN #15 07/07/24 07/31/24 Unknown tabs amiodarone 200 mg tablet 200 mg PO DAILY 07/31/24 07/31/24 Unknown Active Medications Generic Name Dose Route Start Last Admin Trade Name Freq PRN Reason Stop Dose Admin Acetaminophen 1,000 mg 07/31/24 11:17 08/03/24 08:25 Acetaminophen 500 Mg Tab PO 08/30/24 11:16 1,000 mg Q8H PRN Administration Pain Amiodarone HCl 200 mg 08/02/24 17:00 08/04/24 07:43 Amiodarone 200 Mg Tab PO 09/01/24 16:59 200 mg BIDM DANYEL Administration Aspirin 81 mg 07/31/24 11:45 08/04/24 07:43 Aspirin 81 Mg Chew PO 08/30/24 11:44 81 mg DAILY DANYEL Administration Cyanocobalamin 1,000 mcg 08/01/24 09:00 08/04/24 07:42 Cyanocobalamin (B-12) 500 Mcg Tablet PO 08/31/24 08:59 1,000 mcg DAILY DANYEL Administration Finasteride 5 mg 07/31/24 11:45 08/04/24 07:42 Finasteride 5 Mg Tab PO 08/30/24 11:44 5 mg QAM DANYEL Administration Folic Acid 1 mg 08/01/24 09:00 08/04/24 07:42 Folic Acid 1 Mg Tab PO 08/31/24 08:59 1 mg DAILY DANYEL Administration Heparin Sodium (Porcine) 5,000 units 07/31/24 14:00 08/04/24 05:43 Heparin Sod 5,000 Unit/0.5 Ml Vial SQ 08/30/24 13:59 5,000 units Q8 DANYEL Administration Ampicillin Sodium 2,000 mg/ 100 mls @ 200 mls/hr 08/01/24 15:30 08/04/24 13:22 Sodium Chloride IV 09/12/24 15:29 Infused Q4H DANYEL Infusion Ceftriaxone Sodium 2,000 mg in 50 mls @ 100 mls/hr 08/02/24 11:45 08/04/24 08:19 Rocephin IV 09/13/24 11:44 Infused Q12 DANYEL Infusion Insulin Aspart 0 units 07/31/24 11:30 08/04/24 12:22 Insulin Aspart Per Unit Charge SC 08/30/24 11:29 10 units ACHS DANYEL Administration Insulin Glargine 10 units 08/03/24 21:00 08/04/24 07:44 Lantus Per Unit Charge SC 09/02/24 20:59 10 units BID DANYEL Administration Lactobacillus Acidophilus 1,250 mg 07/31/24 14:15 08/04/24 07:42 Advanced Probiotic 625 Mg Capsule PO 08/30/24 14:14 1,250 mg DAILY DANYEL Administration Latanoprost 1 drops 07/31/24 21:00 08/03/24 20:12 Latanoprost 0.005% Op Soln 2.5 Ml Btl OPB 08/30/24 20:59 1 drops HS DANYEL Administration Metoprolol Succinate 50 mg 07/31/24 11:45 08/04/24 07:43 Metoprolol Succ 50mg Ext Rel Tab PO 08/30/24 11:44 50 mg QAM DANYEL Administration Morphine Sulfate 4 mg 08/04/24 01:46 08/04/24 05:45 Morphine Sulfate 4 Mg/Ml 1 Ml Carp\Vial IV 08/18/24 01:45 4 mg Q4H PRN Administration Pain Multivitamins 1 tab 08/01/24 09:00 08/04/24 07:43 Multivitamin Tab PO 08/31/24 08:59 1 tab QAM DANYEL Administration Nitroglycerin 0.4 mg 08/04/24 01:34 08/04/24 01:58 Nitroglycerin Sl 0.4 Mg/Tab Tab SL 09/03/24 01:33 0.4 mg Q5M PRN Administration Chest Pain Ondansetron HCl 4 mg 08/02/24 18:10 08/02/24 18:18 Ondansetron Inj 2 Mg/Ml 2 Ml Vial IV 09/01/24 18:09 4 mg Q6H PRN Administration Nausea And Vomiting Oxycodone HCl 5 mg 08/04/24 01:36 08/04/24 07:28 Oxycodone Hcl Ir 5 Mg Tab (Immediate Release) PO 08/18/24 01:35 5 mg Q4H PRN Administration Pain Pantoprazole Sodium 40 mg 07/31/24 11:45 08/04/24 07:43 Pantoprazole 40 Mg Tab PO 08/30/24 11:44 40 mg DAILY DANYEL Administration Rosuvastatin Calcium 40 mg 07/31/24 21:00 08/03/24 20:11 Rosuvastatin Calcium 20 Mg Tab PO 08/30/24 20:59 40 mg HS DANYEL Administration Tamsulosin HCl 0.4 mg 07/31/24 21:00 08/03/24 20:11 Tamsulosin Hcl 0.4 Mg Cap PO 08/30/24 20:59 0.4 mg HS DANYEL Administration Vitamin D 125 mcg 07/31/24 11:45 08/04/24 07:43 Cholecalciferol 125 Mcg (5,000 Units) Tab PO 08/30/24 11:44 125 mcg DAILY DANYEL Administration (1) Endocarditis Endocarditis type: infective Infective endocarditis organism: bacterial Chronicity: acute Qualified Code(s): I33.0 - Acute and subacute infective endocarditis
--- NOTE | 2024-08-04 14:49 | XRay Report ---
REASON FOR EXAM: The patient is presenting with a history of back pain radiating to the sacrum. HISTORY: Back pain EXAM: Lumbar spine 2-3 views No previous studies available. There is diffuse osteoporosis without compression fracture. Significant scoliosis convex to the right with the apex at the L2-3 level is seen. Abnormal disc narrowing is seen at all levels of the lumbar spine with marked marginal spurring and facet arthropathy. Additionally pars interarticularis defects seen at L5 with grade 1 spondylolisthesis of L5 on S1. Diffusely increased stool and gas are seen through the colon. Extensive aortic calcification is seen with the possible aneurysm formation just above the bifurcation. Further evaluation with ultrasound and/or CT recommended. IMPRESSION: 1. Moderately severe dextroscoliosis. 2. Severe degenerative spondylosis with probable elements of spinal stenosis through the mid and lower lumbar spine. 3. Spondylolysis with grade 1 spondylolisthesis of L5 on S1. 4. Diffuse colonic constipation. 5. Possible abdominal aortic aneurysm. Further evaluation with ultrasound and/or CT exam recommended if this has not been performed recently. Electronically signed by Raza Martinez 08-04-2024 2:49 PM
--- NOTE | 2024-08-04 14:51 | XRay Report ---
REASON FOR EXAM: The patient is presenting with a history of back pain radiating to the sacrum/coccyx. HISTORY: Pain EXAM: Sacrum/coccyx Reason for study: None FINDINGS: Sacroiliac joints unremarkable. Spondylolysis with a grade 1 spondylolisthesis of L5-S1 again seen. Otherwise no acute bony abnormality of the sacrum or coccyx identified. IMPRESSION: 1. Spondylolysis with grade 1 spondylolisthesis of L5-S1. 2. Otherwise negative for acute bony abnormality. Electronically signed by Raza Martinez 08-04-2024 2:51 PM
[2024-08-04] MEDS ORDERED: MoRPHine SULFATE 4 MG/ML 1 ML CARP\\VIAL IV PRN (15:40)
[2024-08-04] MEDS ORDERED: bisacodyL 10 MG SUPP PR PRN (15:41)
[2024-08-04] MEDS: DOCUSATE SODIUM 100 MG CAP PO SCH (15:48)
--- NOTE | 2024-08-04 15:55 | Hospitalist Progress Note ---
Date of Service August 04, 2024 Assessment & Plan (1) Severe sepsis: Plan: Rafael Cantu is a 69y/o M with PMHx significant for severe aortic stenosis s/p TAVR on 06/19/24, chronic LBBB, Mobitz type 2 second degree AV block s/p pacemaker placement on 07/02/24 with postoperative course complicated by episodes of sustained ventricular tachycardia requiring upgrade to an ICD on 07/04/24, HTN, HLD, mild nonobstructive CAD, DMII with diabetic nephropathy, REMBERTO on CPAP, pulmonary emphysema, longstanding iron deficiency anemia, BPH with LUTS, benign paroxysmal vertigo, glaucoma of both eyes, depression, GERD and generalized osteoarthritis who presented to the ED via EMS with complaints of fever, chills and generalized weakness. Patient with recent invasive cardiac procedures including TAVR on 06/19/24 for severe and pacemaker placement on 07/02/24 with postoperative course complicated by episodes of sustained ventricular tachycardia requiring upgrade to an ICD on 07/04/24. 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 EF 55 to 60%. Moderate concentric LVH. TAVR bioprosthesis is present. No significant bioprosthetic aortic valve regurgitation. Gradient is normal for prosthetic arctic valve. Moderate mitral annular calcification. Mild tricuspid regurgitation. Estimated systolic blood pressure 43 mmHg. No evidence of vegetation within the limitations of imaging modality. --S/P ADOLFO: Mobile echodensity) to the ICD lead as it transverses through the right atrium. Imaging consistent with vegetation or thrombus. Left atrium is moderately dilated. No thrombus detected in the left atrial appendage. 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 Patient has been receiving IV Venofer as outpatient Currently no signs of bleeding Anemia workup reviewed Needs follow-up with hematology on discharge Received IV Venofer Leukopenia, thrombocytopenia resolved Hemoglobin 7.3 today Monitor CBC Atrial flutter with rapid ventricular response--POA ICD interrogation IV amiodarone discontinued Continue amiodarone, metoprolol Not on anticoagulation due to anemia, thrombocytopenia Appreciate cardiology input Right cephalic vein thrombosis Likely due to IV line placement IV line removed Discussed with on 08/03/2024: Recommends to avoid any systemic anticoagulation Conservative management for now If clinically worsens, we will repeat Doppler to reassess clot burden Slowly improving Back pain likely due to dextroscoliosis, spondylolisthesis --Lumbar spine x-ray: Moderately severe dextroscoliosis. Severe degenerative spondylosis with probable elements of spinal stenosis through the mid and lower lumbar spine. Spondylolysis with grade 1 spondylolisthesis of L5 on S1. -- Sacrum/coccygeal x-ray:Spondylolysis with grade 1 spondylolisthesis of L5-S1. Otherwise negative for acute bony abnormality. -- Minimize IV narcotics as able has tendency to develop constipation Bowel regimen as needed Orthopedic spine consulted (2) Elevated troponin: Plan: Likely demand ischemia secondary to sepsis, atrial flutter RVR (3) History of transcatheter aortic valve replacement (TAVR): Plan: Severe s/p TAVR performed on 06/19/24 at [facility]. Follows with [facility] as an outpatient. (4) Hyponatremia: Plan: Resolved with IV fluids Monitor sodium levels (5) Thrombocytopenia: Plan: Likely secondary to sepsis Currently no acute bleeding issues Resolved Monitor (6) Hyperlipidemia: Plan: Continue statin (7) CAD (coronary artery disease): Plan: Continue aspirin, metoprolol, statin (8) History of sustained ventricular tachycardia: (9) S/P ICD (internal cardiac defibrillator) procedure: Plan: Mobitz type 2 second degree AV block s/p pacemaker placement on 07/02/24 with postoperative course complicated by episodes of sustained ventricular tachycardia requiring upgrade to an ICD on 07/04/24. Other Chronic Medical Conditions: REMBERTO - Continue CPAP HS. HTN -continue current medications, monitor blood pressure DVT Px SQ Heparin Code Status: DNR/DNI Disposition: PT OT prior to discharge Admission and Anticipated Discharge Date Admission Date: July 31, 2024 Subjective Patient is seen and examined at bedside States having significant lower back pain today Also states having some chest discomfort Denies any dyspnea, nausea, vomiting, abdominal pain Mild soreness at the site of ICD extraction Upper extremity edema, erythema improving No other complaints today Review of Systems Review of Systems: All systems reviewed & are unremarkable except as noted in Subjective Physical Exam Physical Exam: Physical Exam: Vitals signs as noted above General Appearance:Obese, no apparent distress Head: normocephalic, Atraumatic Eyes: normal inspection, EOMI Neck: supple, Trachea midline Respiratory/Chest: Decreased breath sounds, CTA, No accessory muscle use Cardiovascular: S1, S2, no murmur Abdomen/GI:Soft, Non tender, Bowel sounds present Extremities/Musculoskeletal:normal inspection, 1+ edema, right upper extremity swelling, erythema, tender improving Neurologic/Psych:AAOX3, grossly no focal neurological deficits Skin: normal color, warm Results & Data Results & Data Vital Signs (Past 12 Hours) Vital Signs Temp Pulse Pulse Resp BP BP Pulse Ox 08/04/24 13:05 64 08/04/24 11:35 36.4 C L 64 19 128/70 92 08/04/24 09:35 79 08/04/24 07:01 36.7 C 73 19 152/76 H 91 08/04/24 04:17 36.5 C 71 18 136/73 86 L 08/04/24 04:00 65 20 91 O2 Del Method FiO2 08/04/24 13:05 08/04/24 11:35 Room Air 08/04/24 09:35 08/04/24 07:01 Room Air 08/04/24 04:17 BiPAP 08/04/24 04:00 21 Laboratory Results Short CBC 08/03/24 08/04/24 Range/Units 16:47 02:02 WBC 6.56 (4.8-10.8) K/ul Hgb 7.6 L 7.3 L (14.0-18.0) g/dl Hct 26.2 L 25.0 L (42.0-52.0) % Plt Count 141 (130-400) K/uL BMP 08/04/24 02:02 Sodium 138 Potassium 3.7 Chloride 105 Carbon Dioxide 29 BUN 11 Creatinine 1.04 Glucose 121 H Calcium 8.6 Liver Function 08/04/24 Range/Units 02:02 Total Bilirubin 0.5 (0.2-1.0) mg/dl AST 24 (13-39) U/L ALT 40 (7-52) U/L Alkaline Phosphatase 78 (34-104) U/L Albumin 3.2 L (3.4-5.0) gm/dl (6) Hyperlipidemia Hyperlipidemia type: unspecified Qualified Code(s): E78.5 - Hyperlipidemia, unspecified (7) CAD (coronary artery disease) Coronary Disease-Associated Artery/Lesion type: unspecified vessel or lesion type [place] vs. transplanted heart: [place] heart Associated angina: unspecified whether angina present Qualified Code(s): I25.10 - Atherosclerotic heart disease of [place] coronary artery without angina pectoris
[2024-08-05 06:38] LABS: Hematocrit (blood only) 26.8 % (42.0-52.0); Hemoglobin 7.8 g/dl (14.0-18.0); Mean Corpuscular Hemoglobin 23.6 pg (25.0-34.0); Mean Corpuscular Hgb Conc 29.1 g/dL (32.0-36.0); Mean Platelet Volume 10.9 fL (9.4-12.4); Nucleated RBC % (auto) 1.4 %; Platelet Count 175 K/uL (130-400); RDW Coefficient of Variation 20.7 % (11.5-14.5); RDW Standard Deviation 57.7 fL (36.4-46.3); Red Blood Count 3.31 M/uL (4.70-6.10); White Blood Count 7.25 K/ul (4.8-10.8)
[2024-08-05 06:59] LABS: BUN Creatinine Ratio 11.5 (10-20); Calcium 8.9 mg/dl (8.6-10.3); Creatinine Clr Calc Pharmacy 85.8 ml/min; Potassium 3.8 mmol/L (3.5-5.1)
--- NOTE | 2024-08-05 08:01 | XRay Report ---
EXAM: XR chest 1V portable CLINICAL HISTORY: Pleural effusion. TECHNIQUE: An X-ray image of the chest is obtained in AP projection. COMPARISON: 08/04/2024 CT FINDINGS: Pulmonary Parenchyma: Lungs are clear bilaterally. No evidence of consolidation, collapse, or focal opacities. No pulmonary nodules are identified. Prominent bronchovascular markings seen bilaterally. Obliteration of the right costophrenic angle. Minimal blunting of the left costophrenic angle. Heart and Mediastinum: Heart size and shape are normal. No mediastinal widening or masses. No hilar or mediastinal lymphadenopathy. Bony Thorax: Bony thorax appears intact without fractures or deformities. Soft Tissues: Soft tissues overlying the chest wall are unremarkable. IMPRESSION: 1. Bilateral mild pleural effusion more on right. 2. Prominent bronchovascular markings seen bilaterally likely due to vascular congestion/early pulmonary edema. 3. No significant interval changes. 4. Clinical lab correlation and follow-up chest x-ray is advised. Electronically signed by Minor Marin 08-05-2024 07:59 AM
[2024-08-05] MEDS: LANTUS PER UNIT CHARGE SC SCH ×2 (08:50→20:58)
[2024-08-05] MEDS ORDERED: LORazepam 2 MG/1 ML VIAL IV ONE (10:28)
--- NOTE | 2024-08-05 11:23 | Pharmacy Report ---
Pharmacy Glycemic Short Note 2 - Date of Service August 05, 2024 - Glycemic Short BSG Results (Last 24 hours): 08/04/24 08/04/24 08/04/24 11:18 16:17 20:23 Glucose POC Glucose 153 H 123 H 140 H 08/05/24 08/05/24 08/05/24 06:23 07:36 11:16 Glucose 148 H POC Glucose 169 H 254 H OUTPATIENT ANTIDIABETIC REGIMEN: * Metformin 1 g PO BIDM * Glimepiride 2 mg PO qAM HbA1c: 6.1% (07/05/24) ASSESSMENT: 08/05/24: * Blood sugars well-controlled yesterday, ranging 123-156 mg/dL * Received 45 units of insulin (20 units of basal and 25 units of prandial/correctional bolus) * Fasting blood sugar of 169 mg/dL this morning and trending up at lunch * Will hold off on bolus changes today since well-controlled yesterday, but will increase basal 08/03/24 * Patient received a total of 43 units of insulin yesterday (20units were basal and 23units were bolus). * BSGs remained above goal range yesterday ([phone]/dL) although they were improved from the previous day. * Fasting BSG was 177mg/dL this morning. Patient was made NPO starting after midnight last night for pacer removal this afternoon. The dose of Lantus was decreased for this morning as patient likely wont be eating until late afternoon. * Bolus insulin regimen to be continued as ordered, may need to tighten parameters once diet is restarted. 08/01/24: * Blood sugars elevated yesterday, ranging 197-227 mg/dL following consult * Received 32 units of insulin (15 units of basal and 17 units of prandial/correctional bolus) * NPO today for ADOLFO to assess for prosthetic valve IE - currently on broad spect rum antimicrobial regimen (vanco, gentamicin, and cefepime) * Currently receiving amiodarone gtt (mixed in dextrose) 07/31/24: * RB is a 69 year old male admitted for sepsis secondary to currently unide ntified source (concern for prosthetic valve infective endocarditis) * Blood sugar on presentation is 236 mg/dL, pharmacy consulted for glycemic management * Will give conservative Lantus dose for now and weight-based stress of 2 Novolog * Patient was hyperglycemic during last several inpatient stays here without basal insulin * Diet ordered PLAN FOR INPATIENT GLYCEMIC CONTROL: * Hold outpatient oral diabetes medications * Basal insulin * Lantus 12-15 units SC BID * Bolus insulin * NovoLog per scale ACHS or Q6hrs while NPO * Goal Range: Low 120 mg/dL - High 150 mg/dL * Correction Factor: 20 mg/dL/unit * Nutritional / Prandial insulin per carb ratio of 1 unit per 7 grams CHO consumed
[2024-08-05] MEDS ORDERED: FUROSEMIDE 40 MG/4 ML VIAL IV ONE (13:52)
[2024-08-05] MEDS: LORazepam 2 MG/1 ML VIAL IV ONE (13:55)
[2024-08-05] MEDS: FUROSEMIDE 40 MG/4 ML VIAL IV ONE (13:58)
--- NOTE | 2024-08-05 15:06 | Cardiology Progress Note ---
Date of Service August 05, 2024 Assessment & Plan (1) Endocarditis: (2) Enterococcal bacteremia: (3) S/P ICD (internal cardiac defibrillator) procedure: (4) History of sustained ventricular tachycardia: (5) History of transcatheter aortic valve replacement (TAVR): Plan * s/p Device extraction * Antibiotic therapy and supportive care per internal medicine. * Continue oral amiodarone 200 mg twice daily. * Continue Toprol and rosuvastatin 50 mg daily. * Supplement electrolytes as indicated. * Maintain serum potassium greater than 4.0 and serum magnesium greater than 2.0 * Bilateral lower extremity edema noted recommend IV Lasix 40 mg x 1 dose today * Have coordinated with [facility] today for placement of external defibrillator prior to discharge * Plan is for eventual replacement of ICD on the right, please avoid use of the right arm for PICC line Case discussed with CYNDI Chang [facility] Cardiology Admission and Anticipated Discharge Date Admission Date: July 31, 2024 Supervising Physician Co-Signing Physician Notes I have seen and examined the patient above and agree with the assessment and plan above as noted by CYNDI Ramirez. Floyd Beach MD I provided 80 min of care to the patient in regards to management of recent ICD infection and device exchange. Subjective Complex 69-year-old patient admitted with severe sepsis and new onset atrial flutter with rapid ventricular response s/p ICD extraction. No longer having significant lower back pain. Symptomatically he is feeling somewhat better. Persistent right hand swelling. No recurrent fevers or other complaints. Review of Systems Constitutional: no fever and no body aches Respiratory: no cough and no dyspnea Cardiovascular: + edema; no chest pain, no dyspnea on ex ertion and no palpitations Musculoskeletal: no back pain Physical Exam Constitutional: WD/WN, vitals as above well developed and well nourished Neck: trachea midline, no thyromegaly Respiratory: normal respiratory effort, lungs clear to auscultation Cardiovascular: Rate/Rhythm: regular rate and regular rhythm Vessels: no JVD Extremities: + edema Skin: no rashes, warm and dry Psychiatric: A+Ox3, euthymic affect Results & Data Vital Signs (Past 12 Hours) Vital Signs Temp Pulse Pulse Resp BP Pulse Ox O2 Del Method 08/05/24 09:00 70 08/05/24 08:13 36.6 C 69 18 155/75 H 90 Room Air 08/05/24 04:45 65 18 92 08/05/24 03:16 36.6 C 67 20 165/82 H 91 CPAP O2 Flow Rate 08/05/24 09:00 08/05/24 08:13 08/05/24 04:45 2 08/05/24 03:16 Laboratory Results Laboratory Results WBC 7.25 K/ul (4.8-10.8) 08/05/24 06:23 RBC 3.31 M/uL (4.70-6.10) L 08/05/24 06:23 Hgb 7.8 g/dl (14.0-18.0) L 08/05/24 06:23 Hct 26.8 % (42.0-52.0) L 08/05/24 06:23 MCV 81.0 fL (80.0-100.0) 08/05/24 06:23 MCH 23.6 pg (25.0-34.0) L 08/05/24 06:23 MCHC 29.1 g/dL (32.0-36.0) L 08/05/24 06:23 RDW Std Deviation 57.7 fL (36.4-46.3) H 08/05/24 06:23 RDW Coeff of Freddie 20.7 % (11.5-14.5) H 08/05/24 06:23 Plt Count 175 K/uL (130-400) 08/05/24 06:23 MPV 10.9 fL (9.4-12.4) 08/05/24 06:23 Immature Gran % (Auto) 1.7 % 08/04/24 02:02 Neut % (Auto) 77.8 % 08/04/24 02:02 Lymph % (Auto) 6.7 % 08/04/24 02:02 [place] % (Auto) 9.6 % 08/04/24 02:02 Eos % (Auto) 3.4 % 08/04/24 02:02 Baso % (Auto) 0.8 % 08/04/24 02:02 Neut # (Auto) 5.11 K/uL (1.40-6.50) 08/04/24 02:02 Lymph # (Auto) 0.44 K/uL (1.20-3.40) L 08/04/24 02:02 [place] # (Auto) 0.63 K/uL (0.11-0.59) H 08/04/24 02:02 Eos # (Auto) 0.22 K/uL (0.00-0.50) 08/04/24 02:02 Baso # (Auto) 0.05 K/uL (0.00-0.20) 08/04/24 02:02 Immature Gran # (Auto) 0.11 K/uL (0.01-0.20) 08/04/24 02:02 Absolute Nucleated RBC 0.10 K/uL (0.00-0.12) 08/05/24 06:23 Nucleated RBC % (auto) 1.4 % 08/05/24 06:23 Platelet Estimate Decreased (Normal) L 07/31/24 07:40 Polychromasia 1+ 08/04/24 02:02 Hypochromasia Present 08/02/24 07:02 Anisocytosis Present 08/02/24 07:02 Tear Drop Cells 1+ 08/02/24 07:02 Ovalocytes 1+ 08/04/24 02:02 Peripher Smr Path Cons 08/02/24 12:47 PT 12.6 Seconds (9.0-12.0) H 07/31/24 07:40 INR 1.2 (0.9-1.1) H 07/31/24 07:40 APTT 32 Seconds (21-31) H 08/04/24 02:02 PTT Ratio 1.2 08/04/24 02:02 Sodium 139 mmol/L (136-145) 08/05/24 06:23 Potassium 3.8 mmol/L (3.5-5.1) 08/05/24 06:23 Chloride 104 mmol/L (98-107) 08/05/24 06:23 Carbon Dioxide 30 mmol/L (21-32) 08/05/24 06:23 Anion Gap 5 (3-11) 08/05/24 06:23 BUN 11 mg/dl (6-23) 08/05/24 06:23 Creatinine 0.96 mg/dl (0.6-1.4) 08/05/24 06:23 Est Cr Clr Drug Dosing 85.8 ml/min 08/05/24 06:23 eGFR 84.51 08/05/24 06:23 BUN/Creatinine Ratio 11.5 (10-20) 08/05/24 06:23 Glucose 148 mg/dl (70-99(Fasting)) H 08/05/24 06:23 POC Glucose 254 mg/dl (70-99) H 08/05/24 11:16 Lactate 1.9 mmol/L (0.4-2.0) 07/31/24 15:30 Calcium 8.9 mg/dl (8.6-10.3) 08/05/24 06:23 Magnesium 2.0 mg/dl (1.7-2.4) 08/04/24 02:02 Iron 24 mcg/dl (35-175) L 08/02/24 12:47 Transferrin 210 mg/dl (200-360) 08/02/24 12:47 Ferritin 159.7 ng/ml (8-388) 08/02/24 12:47 Total Bilirubin 0.5 mg/dl (0.2-1.0) 08/04/24 02:02 AST 24 U/L (13-39) 08/04/24 02:02 ALT 40 U/L (7-52) 08/04/24 02:02 Alkaline Phosphatase 78 U/L (34-104) 08/04/24 02:02 Troponin I High Sens 7.5 pg/ml (0-20) 08/04/24 02:02 Total Protein 5.9 gm/dl (6.0-8.3) L 08/04/24 02:02 Albumin 3.2 gm/dl (3.4-5.0) L 08/04/24 02:02 Globulin 2.7 gm/dl (2.5-4.0) 08/04/24 02:02 Albumin/Globulin Ratio 1.2 (0.9-2) 08/04/24 02:02 Vitamin B12 974 pg/ml (180-914) H 08/02/24 12:47 Folate > 22.30 ng/ml (>5.38) 08/02/24 12:47 Procalcitonin 2.27 ng/ml (0-0.5) H 07/31/24 07:40 TSH 1.154 uIu/ml (0.300-4.500) 07/31/24 07:40 Urine Color Yellow 07/31/24 Unknown Urine Appearance Cloudy (Clear) A 07/31/24 Unknown Urine pH 5.0 (4.5-7.5) 07/31/24 Unknown Ur Specific [place] 1.022 (1.000-1.030) 07/31/24 Unknown Urine Protein 3+ (Negative) H 07/31/24 Unknown Urine Glucose (UA) Negative (Negative) 07/31/24 Unknown Urine Ketones Negative (Negative) 07/31/24 Unknown Urine Blood Trace (Negative) H 07/31/24 Unknown Urine Nitrite Negative (Negative) 07/31/24 Unknown Urine Bilirubin Negative (Negative) 07/31/24 Unknown Urine Urobilinogen Negative (Negative) 07/31/24 Unknown Ur Leukocyte Esterase Negative (Negative) 07/31/24 Unknown Urine WBC (Auto) 0-5 /hpf (0-5) 07/31/24 Unknown Urine RBC (Auto) 0-2 /hpf (0-2) 07/31/24 Unknown U Hyaline Cast (Auto) 3-5 /lpf (0-2) H 07/31/24 Unknown U Epithel Cells (Auto) 3-5 /hpf (0-2) H 07/31/24 Unknown Urine Bacteria (Auto) None Seen (None Seen) 07/31/24 Unknown Granular Casts Present /lpf (None Prsent) A 07/31/24 Unknown Random Vancomycin 10.6 mcg/ml (10-20) 08/02/24 07:02 Adenovirus (PCR) Not Detected (NotDetected) 07/31/24 07:40 B. pertussis DNA (PCR) Not Detected (NotDetected) 07/31/24 07:40 B.parapertussis DNA PCR Not Detected (NotDetected) 07/31/24 07:40 C. pneumoniae DNA (PCR) Not Detected (NotDetected) 07/31/24 07:40 Coronavirus OC43 (PCR) Not Detected (NotDetected) 07/31/24 07:40 Coronavirus HKU1 (PCR) Not Detected (NotDetected) 07/31/24 07:40 Coronavirus 229E (PCR) Not Detected (NotDetected) 07/31/24 07:40 SARS-CoV-2 (PCR) Not Detected (NotDetected) 07/31/24 07:40 Coronavirus NL63 (PCR) Not Detected (NotDetected) 07/31/24 07:40 Enterococc faecalis PCR DETECTED (NotDetected) A 07/31/24 09:19 Human Metapneumovir PCR Not Detected (NotDetected) 07/31/24 07:40 Influenza Type A (PCR) Not Detected (NotDetected) 07/31/24 07:40 Influenza Type B (PCR) Not Detected (NotDetected) 07/31/24 07:40 M. pneumoniae (PCR) Not Detected (NotDetected) 07/31/24 07:40 Parainfluenza 1 (PCR) Not Detected (NotDetected) 07/31/24 07:40 Parainfluenza 2 (PCR) Not Detected (NotDetected) 07/31/24 07:40 Parainfluenza 3 (PCR) Not Detected (NotDetected) 07/31/24 07:40 Parainfluenza 4 (PCR) Not Detected (NotDetected) 07/31/24 07:40 RSV (PCR) Not Detected (NotDetected) 07/31/24 07:40 Entero/Rhino (PCR) Not Detected (NotDetected) 07/31/24 07:40 Sisi/B-Vanco Res Genes VRE Not Detected (NotDetected) 07/31/24 09:19 Bld Cult ID Panel PCR See PCR Comment (NotDetected) 07/31/24 09:19 Blood Type AB Positive 08/02/24 12:46 Antibody Screen NEGATIVE 08/02/24 12:46 Crossmatch See Detail 08/02/24 12:46 Impressions Abdomen/Pelvis CT 07/31/24 10:43 CT OF THE ABDOMEN AND PELVIS WITH CONTRAST CLINICAL HISTORY: Unclear sepsis source. COMPARISON STUDY: CT of the abdomen and pelvis April 06, 2024. TECHNIQUE: Following IV administration of 94 mL of Optiray, axial images of the abdomen and pelvis were obtained from the lung bases to the proximal femurs. Images were reviewed in the axial, sagittal, and coronal planes. IV contrast was administered without complication. Automated exposure control was utilized for the study. A dose lowering technique was utilized adhering to the principles of ALARA. FINDINGS: Pacer leads are partially imaged. There is mild interlobular septal thickening. No pneumatosis, free air or portal venous gas is present. Mild hepatosplenomegaly is unchanged. There are no hepatic lesions. There is no biliary or pancreatic ductal dilatation. Bilateral perinephric fluid is unchanged. There is no hydronephrosis. Nephrograms are symmetric. No peripancreatic or pericholecystic infiltration is present. No abdominal or pelvic lymphadenopathy. Caliber and wall thickness of small and large bowel are normal. There is sigmoid diverticulosis without evidence for acute diverticulitis. The appendix is normal. No fluid collections are identified. Multilevel degenerative changes within lumbar spine are similar in appearance to prior CT. No areas of bony erosion are identified. IMPRESSION: 1. No acute process within the abdomen or pelvis. 2. No bowel obstruction. No bowel wall thickening. Sigmoid diverticulosis. No evidence for acute diverticulitis. 3. Mild hepatosplenomegaly, unchanged. 4. Mild interstitial pulmonary edema. ACT 112: Negative or not required by law. Electronically signed by: Issa Pereira M.D. 07/31/2024 11:[address] 07/31/24 10:[address] WITH CONTRAST CT DOSE: 2374.74 mGy.cm HISTORY: concern for infective endocarditis/ICD infection TECHNIQUE: Multiaxial CT images of the chest were performed following the IV administration of 90 cc of Optiray. A dose lowering technique was utilized adhering to the principles of ALARA. COMPARISON STUDY: Chest x-ray earlier today. FINDINGS: Left cardiac pacemaker is present. No adjacent hematoma or abscess seen. There is minimal scarring or atelectasis in the lung bases. There is no pulmonary consolidation or pleural effusion. There is mild emphysema. No specific evidence of interstitial lung disease. There are a few scattered small pulmonary nodules measuring up to 4 mm maximal dimension. There is mild mediastinal adenopathy with largest lymph node at right pretracheal node measuring 1.8 cm. There is aortic valve repair. There are scattered coronary artery and aortic calcifications. There is mild scoliosis. There are mild diffuse degenerative changes at the thoracic spine. IMPRESSION: 1. No evidence of abscess adjacent to the pacemaker battery. No pericardial effusion. 2. Mild mediastinal lymphadenopathy. No other acute findings seen. 3. Emphysema with no pneumonia or pleural effusion. There are a few small pu lmonary nodules for which follow-up chest CT is suggested in one year. ACT 112: Positive. There are findings on this exam that require communication between the performing entity and the patient following Patient Test Result Information Act ([place] Act 112) guidelines. Electronically signed by: Raza Velazquez M.D. 07/31/2024 11:23 AM Venous Doppler Study 08/02/24 18:02 Clinical History: Pain Technique: Doppler sonography was performed of the right arm veins Findings: There is apparent thrombus within the right cephalic vein The right jugular, subclavian, axillary, brachial, basilic, radial, and ulnar veins all appear patent with normal anechoic lumens and full compressibility. Expected Doppler waveforms were noted. No definite soft tissue mass or fluid collection is seen. Impression: 1. Superficial venous thrombosis involving the right cephalic vein 2. No evidence of right arm deep venous thrombosis ACT 112: Positive. There are findings on this exam that require communication between the performing entity and the patient following Patient Test Result Information Act ([place] ACT 112) guidelines. Electronically signed by Alvin Fernandez 08-02-2024 7:09 PM Chest CTA 08/04/24 01:58 EXAM: CT angio chest PE protocol CLINICAL HISTORY: cp TECHNIQUE: Contiguous axial images were obtained from the neck base through the upper abdomen following intravenous administration of iodinated contrast material. Angiographic images were processed, 3D MIP images were acquired for interpretation. If IV contrast material had not been administered, the likelihood of detecting abnormalities relevant to the patient's condition would have been substantially decreased. Coronal and sagittal 3-D MIPs were likewise performed and indicated to increase the sensitivity of detectin diffuse clinically relevant pathology. CT scan was performed according to ALARA (as low as reasonably achievable). COMPARISON: CT, 07/31/2024 09:54:55 [employer] FINDINGS: Adequate contrast bolus without evidence of pulmonary embolism. Dilated main pulmonary artery, [id number]. Prosthetic aortic valve is seen. Enlarged right paratracheal, lower pretracheal, subcarinal and prevascular lymph nodes seen, largest measuring [id number]. The central airways are patent. Bilateral mild pleural effusion with adjacent basal atelectasis. Smooth interlobular septal thickening seen in bilateral lungs, predominantly in bilateral upper lobes and smooth fissural thickening Centrilobular emphysematous changes in bilateral upper lobes. The heart, aorta, and pulmonary arteries are of normal size and configuration. There are no appreciable coronary artery and aortic atherosclerotic calcifications. No pericardial effusion is identified. The thyroid is unremarkable. No hilar, or axillary lymphadenopathy is noted. No suspicious lytic or sclerotic osseous lesions are identified. Significant degenerative changes in visualized spine. IMPRESSION: 1. No evidence of pulmonary embolism. 2. Stable dilated main pulmonary artery. 3. Interval development of bilateral pleural effusion and smooth interlobular septal thickening in bilateral lungs, predominantly in bilateral upper lobes and smooth fissural thickening-- Likely changes of Pulmonary edema. 4. Stable Centrilobular emphysematous changes in bilateral upper lobes. 5. Interval mild increase in size of mediastinal lymph nodes. Electronically signed by Ollie Baumann 08-04-2024 03:41 AM Lumbar Spine X-Ray 08/04/24 13:05 REASON FOR EXAM: The patient is presenting with a history of back pain radiating to the sacrum. HISTORY: Back pain EXAM: Lumbar spine 2-3 views No previous studies available. There is diffuse osteoporosis without compression fracture. Significant scoliosis convex to the right with the apex at the L2-3 level is seen. Abnormal disc narrowing is seen at all levels of the lumbar spine with marked marginal spurring and facet arthropathy. Additionally pars interarticularis defects seen at L5 with grade 1 spondylolisthesis of L5 on S1. Diffusely increased stool and gas are seen through the colon. Extensive aortic calcification is seen with the possible aneurysm formation just above the bifurcation. Further evaluation with ultrasound and/or CT recommended. IMPRESSION: 1. Moderately severe dextroscoliosis. 2. Severe degenerative spondylosis with probable elements of spinal stenosis through the mid and lower lumbar spine. 3. Spondylolysis with grade 1 spondylolisthesis of L5 on S1. 4. Diffuse colonic constipation. 5. Possible abdominal aortic aneurysm. Further evaluation with ultrasound and/or CT exam recommended if this has not been performed recently. Electronically signed by Raza Martinez 08-04-2024 2:49 PM Sacrum and Coccyx X-Ray 08/04/24 13:05 REASON FOR EXAM: The patient is presenting with a history of back pain radiating to the sacrum/coccyx. HISTORY: Pain EXAM: Sacrum/coccyx Reason for study: None FINDINGS: Sacroiliac joints unremarkable. Spondylolysis with a grade 1 spondylolisthesis of L5-S1 again seen. Otherwise no acute bony abnormality of the sacrum or coccyx identified. IMPRESSION: 1. Spondylolysis with grade 1 spondylolisthesis of L5-S1. 2. Otherwise negative for acute bony abnormality. Electronically signed by Raza Martinez 08-04-2024 2:51 PM Chest X-Ray 08/05/24 07:00 EXAM: XR chest 1V portable CLINICAL HISTORY: Pleural effusion. TECHNIQUE: An X-ray image of the chest is obtained in AP projection. COMPARISON: 08/04/2024 CT FINDINGS: Pulmonary Parenchyma: Lungs are clear bilaterally. No evidence of consolidation, collapse, or focal opacities. No pulmonary nodules are identified. Prominent bronchovascular markings seen bilaterally. Obliteration of the right costophrenic angle. Minimal blunting of the left costophrenic angle. Heart and Mediastinum: Heart size and shape are normal. No mediastinal widening or masses. No hilar or mediastinal lymphadenopathy. Bony Thorax: Bony thorax appears intact without fractures or deformities. Soft Tissues: Soft tissues overlying the chest wall are unremarkable. IMPRESSION: 1. Bilateral mild pleural effusion more on right. 2. Prominent bronchovascular markings seen bilaterally likely due to vascular congestion/early pulmonary edema. 3. No significant interval changes. 4. Clinical lab correlation and follow-up chest x-ray is advised. Electronically signed by Minor Marin 08-05-2024 07:59 AM Diagnostic Findings CBC 08/05/24 Range/Units 06:23 WBC 7.25 (4.8-10.8) K/ul RBC 3.31 L (4.70-6.10) M/uL Hgb 7.8 L (14.0-18.0) g/dl Hct 26.8 L (42.0-52.0) % Plt Count 175 (130-400) K/uL Comprehensive Metabolic Panel 08/05/24 Range/Units 06:23 Sodium 139 (136-145) mmol/L Potassium 3.8 (3.5-5.1) mmol/L Chloride 104 (98-107) mmol/L Carbon Dioxide 30 (21-32) mmol/L BUN 11 (6-23) mg/dl Creatinine 0.96 (0.6-1.4) mg/dl Glucose 148 H (70-99(Fasting)) mg/dl Calcium 8.9 (8.6-10.3) mg/dl Intake and Output 08/05/24 08/05/24 08/05/24 06:59 14:59 22:59 Intake Total 300 / 1280 250 / 250 Balance 300 / 580 250 / 250 Intake: IV 200 / 700 250 / 250 Ampicillin 2,000 mg In Sodium 200 / 600 200 / 200 Chlor 0.9% Mini-B 100 ml @ 200 mls/hr IV Q4H [facility] Rx#:[id number] cefTRIAXone SODIUM 2,000 mg In 50 / 50 50 ml @ 100 mls/hr IV Q12 [facility] Rx#:[id number] Oral 100 / 580 Other: # Unmeasured Voids 2 Weight 108.7 kg Weight Measurement Method Standing Scale (1) Endocarditis Chronicity: acute Endocarditis type: infective Infective endocarditis organism: bacterial Qualified Code(s): I33.0 - Acute and subacute infective endocarditis
[2024-08-05] MEDS: GADOBUTROL 65ML VIAL IV ONE (15:30)
--- NOTE | 2024-08-05 15:59 | Magnetic Resonance Report ---
MRI of the lumbosacral spine without and with contrast. Study is limited by motion and differences in positioning. Conus is located at the level of L1. Severe disc space narrowing at T12-L1, L1-L2 and L2-L3. Moderate narrowing at L3-L4. At L1-2 there is disc bulge resulting in mild central stenosis in the left paracentral region. There is mild left foraminal stenosis. There is moderate bilateral facet arthropathy more severe on the left side. Right foramen is patent. At L2-L3 there is generalized disc bulging resulting in mild central stenosis. No foraminal stenosis. There is moderate facet arthropathy with fluid in the joint space. At L3 L4 there is generalized disc bulging resulting in moderate central stenosis. There is moderate facet arthropathy with fluid in the joint space. There is mild right foraminal stenosis. At L4-5 there is no central or foraminal stenosis. There is moderate facet arthropathy. At L5-S1 there is minimal anterolisthesis of L5. No significant central or foraminal stenosis. There is moderate to severe facet arthropathy. Suspicion of presence of bilateral spondylolysis. Following injection of contrast material no evidence of pathologic enhancement. Impression Degenerative changes. Electronically signed by Gail Henriquez 08-05-2024 3:56 PM
[2024-08-05] MEDS: Nursing to Pharmacy Communication SCH (16:36)
--- NOTE | 2024-08-05 17:52 | Hospitalist Progress Note ---
Date of Service August 05, 2024 Assessment & Plan (1) Severe sepsis: Plan: Rafael Cantu is a 69y/o M with PMHx significant for severe aortic stenosis s/p TAVR on 06/19/24, chronic LBBB, Mobitz type 2 second degree AV block s/p pacemaker placement on 07/02/24 with postoperative course complicated by episodes of sustained ventricular tachycardia requiring upgrade to an ICD on 07/04/24, HTN, HLD, mild nonobstructive CAD, DMII with diabetic nephropathy, REMBERTO on CPAP, pulmonary emphysema, longstanding iron deficiency anemia, BPH with LUTS, benign paroxysmal vertigo, glaucoma of both eyes, depression, GERD and generalized osteoarthritis who presented to the ED via EMS with complaints of fever, chills and generalized weakness. Patient with recent invasive cardiac procedures including TAVR on 06/19/24 for severe and pacemaker placement on 07/02/24 with postoperative course complicated by episodes of sustained ventricular tachycardia requiring upgrade to an ICD on 07/04/24. 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 EF 55 to 60%. Moderate concentric LVH. TAVR bioprosthesis is present. No significant bioprosthetic aortic valve regurgitation. Gradient is normal for prosthetic arctic valve. Moderate mitral annular calcification. Mild tricuspid regurgitation. Estimated systolic blood pressure 43 mmHg. No evidence of vegetation within the limitations of imaging modality. --S/P ADOLFO: Mobile echodensity) to the ICD lead as it transverses through the right atrium. Imaging consistent with vegetation or thrombus. Left atrium is moderately dilated. No thrombus detected in the left atrial appendage. 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 Patient has been receiving IV Venofer as outpatient Currently no signs of bleeding Anemia workup reviewed Needs follow-up with hematology on discharge Received IV Venofer Leukopenia, thrombocytopenia resolved Hemoglobin 7.8 today Monitor CBC No bleeding issues currently Atrial flutter with rapid ventricular response--POA ICD interrogation IV amiodarone discontinued Continue amiodarone, metoprolol Not on anticoagulation due to anemia, thrombocytopenia Appreciate cardiology input Right cephalic vein thrombosis Likely due to IV line placement IV line removed Discussed with on 08/03/2024: Recommends to avoid any systemic anticoagulation Conservative management for now If clinically worsens, we will repeat Doppler to reassess clot burden Slowly improving Continue current management Back pain likely due to dextroscoliosis, spondylolisthesis --Lumbar spine x-ray: Moderately severe dextroscoliosis. Severe degenerative spondylosis with probable elements of spinal stenosis through the mid and lower lumbar spine. Spondylolysis with grade 1 spondylolisthesis of L5 on S1. -- Sacrum/coccygeal x-ray:Spondylolysis with grade 1 spondylolisthesis of L5-S1. Otherwise negative for acute bony abnormality. --MRI Lumbar Spine:Degenerative changes. -- Minimize IV narcotics as able has tendency to develop constipation Bowel regimen as needed Orthopedic spine consulted PT OT as able (2) Elevated troponin: Plan: Likely demand ischemia secondary to sepsis, atrial flutter RVR (3) History of transcatheter aortic valve replacement (TAVR): Plan: Severe s/p TAVR performed on 06/19/24 at [facility]. Follows with [facility] as an outpatient. (4) Hyponatremia: Plan: Resolved with IV fluids Monitor sodium levels (5) Thrombocytopenia: Plan: Likely secondary to sepsis Currently no acute bleeding issues Resolved Monitor (6) Hyperlipidemia: Plan: Continue statin (7) CAD (coronary artery disease): Plan: Continue aspirin, metoprolol, statin (8) History of sustained ventricular tachycardia: (9) S/P ICD (internal cardiac defibrillator) procedure: Plan: Mobitz type 2 second degree AV block s/p pacemaker placement on 07/02/24 with postoperative course complicated by episodes of sustained ventricular tachycardia requiring upgrade to an ICD on 07/04/24. Other Chronic Medical Conditions: REMBERTO - Continue CPAP HS. HTN -continue current medications, monitor blood pressure DVT Px SQ Heparin Code Status: DNR/DNI Disposition: PT OT prior to discharge Admission and Anticipated Discharge Date Admission Date: July 31, 2024 Subjective Patient is seen and examined at bedside Back pain is better today MRI showed no acute process Patient offers no new complaints Denies any dyspnea, nausea, vomiting, abdominal pain Upper extremity edema, erythema better Review of Systems Review of Systems: All systems reviewed & are unremarkable except as noted in Subjective Physical Exam Physical Exam: Physical Exam: Vitals signs as noted above General Appearance:Obese, no apparent distress Head: normocephalic, Atraumatic Eyes: normal inspection, EOMI Neck: supple, Trachea midline Respiratory/Chest: Decreased breath sounds, CTA, No accessory muscle use Cardiovascular: S1, S2, no murmur Abdomen/GI:Soft, Non tender, Bowel sounds present Extremities/Musculoskeletal:normal inspection, 2+ edema, right upper extremity swelling, erythema, tender improving Neurologic/Psych:AAOX3, grossly no focal neurological deficits Skin: normal color, warm Results & Data Results & Data Vital Signs (Past 12 Hours) Vital Signs Temp Pulse Pulse Pulse Resp BP Pulse Ox 08/05/24 16:00 36.5 C 65 18 135/71 96 08/05/24 09:00 70 08/05/24 08:13 36.6 C 69 18 155/75 H 90 O2 Del Method 08/05/24 16:00 Room Air 08/05/24 09:00 08/05/24 08:13 Room Air Laboratory Results Short CBC 08/05/24 Range/Units 06:23 WBC 7.25 (4.8-10.8) K/ul Hgb 7.8 L (14.0-18.0) g/dl Hct 26.8 L (42.0-52.0) % Plt Count 175 (130-400) K/uL BMP 08/05/24 06:23 Sodium 139 Potassium 3.8 Chloride 104 Carbon Dioxide 30 BUN 11 Creatinine 0.96 Glucose 148 H Calcium 8.9 (6) Hyperlipidemia Hyperlipidemia type: unspecified Qualified Code(s): E78.5 - Hyperlipidemia, unspecified (7) CAD (coronary artery disease) Coronary Disease-Associated Artery/Lesion type: unspecified vessel or lesion type Samish vs. transplanted heart: zuni heart Associated angina: unspecified whether angina present Qualified Code(s): I25.10 - Atherosclerotic heart disease of zuni coronary artery without angina pectoris
[2024-08-06 07:09] LABS: Hematocrit (blood only) 27.2 % (42.0-52.0); Hemoglobin 7.9 g/dl (14.0-18.0); Mean Corpuscular Hemoglobin 23.5 pg (25.0-34.0); Nucleated RBC # (auto) 0.07 K/uL (0.00-0.12); Nucleated RBC % (auto) 0.9 %; Platelet Count 215 K/uL (130-400); RDW Coefficient of Variation 21.9 % (11.5-14.5); RDW Standard Deviation 58.7 fL (36.4-46.3); Red Blood Count 3.36 M/uL (4.70-6.10); White Blood Count 7.81 K/ul (4.8-10.8)
[2024-08-06 07:30] LABS: BUN Creatinine Ratio 11.8 (10-20); Calcium 8.7 mg/dl (8.6-10.3); Creatinine Clr Calc Pharmacy 80.6 ml/min; Magnesium 2.1 mg/dl (1.7-2.4); Potassium 3.6 mmol/L (3.5-5.1)
--- NOTE | 2024-08-06 08:49 | Cardiology Progress Note ---
Date of Service August 06, 2024 Assessment & Plan (1) Endocarditis: (2) Enterococcal bacteremia: (3) S/P ICD (internal cardiac defibrillator) procedure: (4) History of sustained ventricular tachycardia: (5) History of transcatheter aortic valve replacement (TAVR): Plan * s/p Device extraction * Antibiotic therapy and supportive care per internal medicine. 08/06/2024: -patient is resting comfortably in bed with no acute concerns at this time. -Appear volume overloaded on exam. Give Furosemide 40mg IV x1 dose now. -Monitor daily weights with standing scale, strict I&O and labs closely. -goal serum K > 4.0 and Serum Mag > 2.0. Close monitoring of renal function. -H/H remains low but stable, would discuss with hematology should patient's labs worsening -Assure Vest is to arrange for placement of external defibrillator. Patient requires this after having and episode of sustained VT with syncope which led to prior hospitalization. Unfortunately, his implanted ICD had to be removed s/t to sepsis with a noted vegetation on a lead. Will need set up prior to discharge. -Plan is for patient to be followed by ID with plans for antibiotics following discharge. Primary team to discuss this with ID as patient of a PICC line will be complicated by the new findings of thrombophlebitis in both upper extremities. -Plan is for eventual replacement of ICD, but on the right side. -Continue Toprol xl 50mg daily -Continue Crestor 40mg daily -Continue ASA 81mg daily. Re-assess volume status in AM, follow labs closely. Case has been discussed with Dr. Allen. Further recommendations regarding plan of care as per his assessment. I spent a total of 30 minutes on the date of service in preparation, delivery, documentation of the care provided to the patient excluding any time spent in the performance of separately billed services. CYNDI Crabtree [facility] Admission and Anticipated Discharge Date Admission Date: July 31, 2024 Supervising Physician Co-Signing Physician Notes Attending attestation: Case reviewed with the advanced practitioner. I have personally performed a history and physical examination on the patient. I have reviewed the advanced practitioner's documentation on the date of service referenced in note, and I agree with, and take responsibility for the plan of care. Continue ampicillin/Rocephin. IV antibiotic therapy clinically essential, but likely contributing to volume overload. Agree with furosemide 40 mg IV x 1 for volume overload. Telemetry reveals stable findings, sinus rhythm in the 70s without VT or pauses. Continue metoprolol and amiodarone. Await approval from insurance for wearable defibrillator, documentation submitted over the weekend. 3 blood cultures obtained on 07/31/2024 positive for Enterococcus faecalis, numerous repeat cultures without growth thus far. I spent a total of 20 minutes coordinating, documenting, and providing care for this patient excluding time spent in the performance of separately billed services or time spent by another provider. Conor Allen DO Subjective 08/06/2024:Patient seen and examined in follow up today. Feeling ok. Offers no cardiac concerns. His HgB remains low at 7.9. No active bleeding issues. Received iron infusion yesterday. No fevers. Assure vest had been ordered by cardiology team over the weekend. Awaiting plan for fitting, but patient is to be discharged home on vest. Bilateral arms remains swollen, but noted improvement in erythema. Thrombophlebitis. Labs, vitals, diagnostics, telemetry and documentation reviewed. Telemetry reviewed showing SR rates 60-80's. No acute events overnight. H/H 7.9/27.2 Review of Systems Review of Systems: All systems reviewed & are unremarkable except as noted in HPI & below Physical Exam Constitutional: well developed, well nourished and + ill appearing; no acute distress Neck: normal visual inspection and trachea midline Respiratory: normal respiratory effort; no respiratory distress, no labored breathing and no cough Auscultation: lungs clear to auscultation bilaterally; no crackles, no rales, no rhonchi and no wheezes Cardiovascular: Rate/Rhythm: regular rate and regular rhythm Heart Sounds: normal S1, normal S2 and + murmur (+1/6 systolic ) Vessels: dorsalis pedis pulses present; no JVD Extremities: + edema (+1 BLE) Skin: no rashes, warm and dry Optifoam/Op-site in place over left ant. chest wall Psychiatric: A+Ox3, euthymic affect Results & Data Vital Signs (Past 12 Hours) Vital Signs Temp Pulse Pulse Resp BP Pulse Ox O2 Del Method 08/06/24 07:54 36.8 C 789 H 18 127/63 74 L BiPAP 08/06/24 03:24 60 19 90 08/06/24 02:21 36.7 C 63 20 137/72 93 BiPAP 08/05/24 23:23 18 94 08/05/24 22:55 67 08/05/24 22:39 37 C 65 20 143/69 H 93 BiPAP 08/05/24 21:31 CPAP Laboratory Results CBC 08/06/24 Range/Units 06:52 WBC 7.81 (4.8-10.8) K/ul RBC 3.36 L (4.70-6.10) M/uL Hgb 7.9 L (14.0-18.0) g/dl Hct 27.2 L (42.0-52.0) % Plt Count 215 (130-400) K/uL Comprehensive Metabolic Panel 08/06/24 Range/Units 06:52 Sodium 137 (136-145) mmol/L Potassium 3.6 (3.5-5.1) mmol/L Chloride 102 (98-107) mmol/L Carbon Dioxide 33 H (21-32) mmol/L BUN 12 (6-23) mg/dl Creatinine 1.02 (0.6-1.4) mg/dl Glucose 173 H (70-99(Fasting)) mg/dl Calcium 8.7 (8.6-10.3) mg/dl Intake and Output 08/05/24 08/06/24 08/06/24 22:59 06:59 14:59 Intake Total 250 / 820 320 / 820 Output Total 950 / 950 Balance -700 / -130 320 / -130 Intake: IV 250 / 700 200 / 700 Ampicillin 2,000 mg In Sodium 200 / 600 200 / 600 Chlor 0.9% Mini-B 100 ml @ 200 mls/hr IV Q4H [facility] Rx#:[id number] cefTRIAXone SODIUM 2,000 mg In 50 / 100 50 ml @ 100 mls/hr IV Q12 [facility] Rx#:[id number] Oral 120 / 120 Output: Urine 950 / 950 Other: Weight 108.5 kg (1) Endocarditis Chronicity: acute Endocarditis type: infective Infective endocarditis organism: bacterial Qualified Code(s): I33.0 - Acute and subacute infective endocarditis
--- NOTE | 2024-08-06 09:36 | Consultation ---
Date of Consultation August 06, 2024 Assessment & Plan (1) Spondylolisthesis at L5-S1 level: Dr Guiod has reviewed imaging and treatment plan. He is not a surgical candidate currently in light of his endocarditis/sepsis, nor is he a candidate for epidural injections because of this reason as well. His acute pain has resolved and his chronic pain has been manageable at home. He can follow up as needed as an outpatient. Nothing further to offer him at this time. Will sign off History of Present Illness Reason for Consultation: back pain Attending Physician: Sonu Carl MD History of Present Illness This is a 69yo gentleman who presented to the ER with sepsis/endocarditis. ICD has been removed during his stay. He has chronic back pain off and on but is highly functional with it. He developed new back pain during his hospital admission which has now resolved. He denies lower extremity pain, weakness. No bowel/bladder loss of control. He ambulates independently. in the past, he has managed his back pain with chiropractic treatments and pain management injections at [facility], last being in 2022, Allergies Allergy/AdvReac Type Severity Reaction Status Date / Time nickel Allergy Unknown RASH Verified 07/04/24 15:10 tetanus toxoid, adsorbed Allergy Unknown ITCHING Verified 07/04/24 15:10 empagliflozin AdvReac Unknown URINARY Verified 07/04/24 15:10 [From Jardiance] TRACT INFECTION lisinopril AdvReac Unknown Cough Verified 07/04/24 15:10 polyethylene glycol 3350 AdvReac Unknown Verified 07/04/24 15:10 [From Miralax] Home Medications Medication Instructions Recorded Confirmed Type dutasteride 0.5 mg capsule 0.5 mg PO QAM 08/11/18 07/31/24 History metformin 1,000 mg tablet 1,000 mg PO BID 08/11/18 07/31/24 History multivitamin 1 tab PO QAM 08/11/18 07/31/24 History rosuvastatin 40 mg tablet 40 mg PO HS 08/11/18 07/31/24 History glimepiride 2 mg tablet 2 mg PO QAM 08/22/20 07/31/24 History tamsulosin 0.4 mg capsule 0.4 mg PO HS 10/01/20 07/31/24 History timolol maleate 0.25 % eye drops 2 drp OPB DAILY 11/02/23 07/31/24 History acetaminophen 500 mg tablet 1,000 mg PO DIRECTED PRN Pain 04/06/24 07/31/24 History ##0 ascorbic acid (vitamin C) 1,000 mg 1 g PO BID 07/02/24 07/31/24 History tablet (Vitamin C) aspirin 81 mg chewable tablet 81 mg PO DAILY 07/02/24 07/31/24 History cholecalciferol (vitamin D3) 125 125 mcg PO DAILY 07/02/24 07/31/24 History mcg (5,000 unit) tablet (Vitamin D3) folic acid 1 mg tablet 1 mg PO DAILY 07/02/24 07/31/24 History cyanocobalamin (vitamin B-12) 1,000 mcg PO DAILY 07/04/24 07/31/24 History 1,000 mcg tablet (Vitamin B-12) furosemide 20 mg tablet 20 mg PO DAILY PRN Weight Gain/Leg 07/04/24 07/31/24 History Swelling latanoprost 0.005 % eye drops 1 drp OPB HS 07/04/24 07/31/24 History pantoprazole 40 mg tablet,delayed 40 mg PO DAILY 07/04/24 07/31/24 History release metoprolol succinate 50 mg 50 mg PO QAM 30 days #30 tabs 07/07/24 07/31/24 Rx tablet,extended release 24 hr oxycodone 5 mg tablet 5 mg PO QID PRN SEVERE PAIN #15 07/07/24 07/31/24 Rx tabs amiodarone 200 mg tablet 200 mg PO DAILY 07/31/24 07/31/24 History Patient History Medical History Aortic stenosis, severe BPH (benign prostatic hyperplasia) REMBERTO on CPAP Obesity Dyslipidemia HTN (hypertension) Diabetes mellitus, type II History of colon polyps BENIGN Scoliosis Osteoarthritis BPH (benign prostatic hyperplasia) GERD (gastroesophageal reflux disease) Not an issue recently Diabetes mellitus, type 2 Anemia Glaucoma RESOLVED S/P SURGICAL INTERVENTION Hyperlipidemia Sleep apnea CPAP, COMPLIANT. Surgical History History of tonsillectomy Hx of repair of rotator cuff "bilateral" History of total right knee replacement (TKR) History of cardiac cath ABNORMAL STRESS TEST IN 2017 - NO STENTS. 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) History of repair of rotator cuff RT/LEFT History of esophagogastroduodenoscopy (EGD) History of colonoscopy History of tooth extraction History of tonsillectomy History of adenoidectomy History of myringotomy Family History Grandmother (Maternal) Family history of diabetes mellitus Mother Family history of esophageal cancer Sister Family history of diabetes mellitus Social History Smoking Status: Former smoker Tobacco Type: Cigarettes Second Hand Exposure: No; Do You Dip or Chew Tobacco: No; Hx Alcohol Use: No Hx Substance Use: No Preferred Language: Arabic 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 nontender to palpation lumbar spine midline Results & Data Vital Signs (Past 12 Hours) Vital Signs Temp Pulse Pulse Resp BP Pulse Ox O2 Del Method 08/06/24 07:54 36.8 C 789 H 18 127/63 74 L BiPAP 08/06/24 03:24 60 19 90 08/06/24 02:21 36.7 C 63 20 137/72 93 BiPAP 08/05/24 23:23 18 94 08/05/24 22:55 67 08/05/24 22:39 37 C 65 20 143/69 H 93 BiPAP Diagnostic Findings [place], [place] [phone] XRay Report Patient: MARY KATE MARQUEZ Admit Date: 07/31/24 MR#: [id number] Address1: [address] [place] [address] Acct ID:[id number] Address2: Date: 1955 [facility] Zip: [place] [address] Age: 69 Location: 2S Sex: M Room/Bed: S230-2 Att Phy: Sonu Carl MD Diagnosis: SEPSIS Ree Phy: Declan Dejesus MD Service Date: 08/04/24 [facility] Phy: Interpreting Phy: Raza Selby Phy: Renny Mullins MD Ordering Phy: Sonu Carl MD cc: ~ REASON FOR EXAM: The patient is presenting with a history of back pain radiating to the sacrum. HISTORY: Back pain EXAM: Lumbar spine 2-3 views No previous studies available. There is diffuse osteoporosis without compression fracture. Significant scoliosis convex to the right with the apex at the L2-3 level is seen. Abnormal disc narrowing is seen at all levels of the lumbar spine with marked marginal spurring and facet arthropathy. Additionally pars interarticularis defects seen at L5 with grade 1 spondylolisthesis of L5 on S1. Diffusely increased stool and gas are seen through the colon. Extensive aortic calcification is seen with the possible aneurysm formation just above the bifurcation. Further evaluation with ultrasound and/or CT recommended. IMPRESSION: 1. Moderately severe dextroscoliosis. 2. Severe degenerative spondylosis with probable elements of spinal stenosis through the mid and lower lumbar spine. 3. Spondylolysis with grade 1 spondylolisthesis of L5 on S1. 4. Diffuse colonic constipation. 5. Possible abdominal aortic aneurysm. Further evaluation with ultrasound and/or CT exam recommended if this has not been performed recently. Electronically signed by Raza Martinez 08-04-2024 2:49 PM Dictated: 08/04/24 1412 Transcribed: [place], [place] [phone] Magnetic Resonance Report Patient: MARY KATE MARQUEZ Admit Date: 07/31/24 MR#: [id number] Address1: [address] [place] [address] Acct ID:[id number] Address2: Date: 1955 [facility] Zip: [place] [address] Age: 69 Location: 2S Sex: M Room/Bed: S230-2 Att Phy: Sonu Carl MD Diagnosis: SEPSIS Ree Phy: Declan Dejesus MD Service Date: 08/05/24 [facility] Phy: Interpreting Phy: Gail Selby Phy: Renny Mullins MD Ordering Phy: Elina Crawford cc: ~ MRI of the lumbosacral spine without and with contrast. Study is limited by motion and differences in positioning. Conus is located at the level of L1. Severe disc space narrowing at T12-L1, L1-L2 and L2-L3. Moderate narrowing at L3-L4. At L1-2 there is disc bulge resulting in mild central stenosis in the left paracentral region. There is mild left foraminal stenosis. There is moderate bilateral facet arthropathy more severe on the left side. Right foramen is patent. At L2-L3 there is generalized disc bulging resulting in mild central stenosis. No foraminal stenosis. There is moderate facet arthropathy with fluid in the joint space. At L3 L4 there is generalized disc bulging resulting in moderate central stenosis. There is moderate facet arthropathy with fluid in the joint space. There is mild right foraminal stenosis. At L4-5 there is no central or foraminal stenosis. There is moderate facet arthropathy. At L5-S1 there is minimal anterolisthesis of L5. No significant central or foraminal stenosis. There is moderate to severe facet arthropathy. Suspicion of presence of bilateral spondylolysis. Following injection of contrast material no evidence of pathologic enhancement. Impression Degenerative changes. Electronically signed by Gail Henriquez 08-05-2024 3:56 PM Dictated: 08/05/24 1502 Transcribed:
--- NOTE | 2024-08-06 11:09 | Pharmacy Report ---
Pharmacy Glycemic Short Note 2 - Date of Service August 06, 2024 - Glycemic Short BSG Results (Last 24 hours): 08/05/24 08/05/24 08/05/24 11:16 16:24 20:11 Glucose POC Glucose 254 H 167 H 144 H 08/06/24 08/06/24 06:52 07:17 Glucose 173 H POC Glucose 179 H OUTPATIENT ANTIDIABETIC REGIMEN: * Metformin 1 g PO BIDM * Glimepiride 2 mg PO qAM HbA1c: 6.1% (07/05/24) ASSESSMENT: 08/06/24 * Rafael received 48 units of insulin yesterday (24 were basal) * Fasting BSG this AM acceptable, basal insulin increased yesterday, will continue regimen at this time * No changes to NovoLog, he continues on IV ampicillin and ceftriaxone 08/05/24: * Blood sugars well-controlled yesterday, ranging 123-156 mg/dL * Received 45 units of insulin (20 units of basal and 25 units of prandia l/correctional bolus) * Fasting blood sugar of 169 mg/dL this morning and trending up at lunch * Will hold off on bolus changes today since well-controlled yesterday, but will increase basal 08/03/24 * Patient received a total of 43 units of insulin yesterday (20units were basal and 23units were bolus). * BSGs remained above goal range yesterday ([phone]/dL) although they were improved from the previous day. * Fasting BSG was 177mg/dL this morning. Patient was made NPO starting after midnight last night for pacer removal this afternoon. The dose of Lantus was decreased for this morning as patient likely wont be eating until late afternoon. * Bolus insulin regimen to be continued as ordered, may need to tighten parameters once diet is restarted. 08/01/24: * Blood sugars elevated yesterday, ranging 197-227 mg/dL following consult * Received 32 units of insulin (15 units of basal and 17 units of prandial/correctional bolus) * NPO today for ADOLFO to assess for prosthetic valve IE - currently on broad spectrum antimicrobial regimen (vanco, gentamicin, and cefepime) * Currently receiving amiodarone gtt (mixed in dextrose) 07/31/24: * RB is a 69 year old male admitted for sepsis secondary to currently unidentified source (concern for prosthetic valve infective endocarditis) * Blood sugar on presentation is 236 mg/dL, pharmacy consulted for glycemic management * Will give conservative Lantus dose for now and weight-based stress of 2 Novolog * Patient was hyperglycemic during last several inpatient stays here without basal insulin * Diet ordered PLAN FOR INPATIENT GLYCEMIC CONTROL: * Hold outpatient oral diabetes medications * Basal insulin * Lantus 12-15 units SC BID * Bolus insulin * NovoLog per scale ACHS or Q6hrs while NPO * Goal Range: Low 120 mg/dL - High 150 mg/dL * Correction Factor: 20 mg/dL/unit * Nutritional / Prandial insulin per carb ratio of 1 unit per 7 grams CHO consumed
[2024-08-06] MEDS: FUROSEMIDE 40 MG/4 ML VIAL IV ONE (14:25)
--- NOTE | 2024-08-06 15:07 | Hospitalist Progress Note ---
Date of Service August 06, 2024 Assessment & Plan (1) Severe sepsis: Plan: Rafael Cantu is a 69y/o M with PMHx significant for severe aortic stenosis s/p TAVR on 06/19/24, chronic LBBB, Mobitz type 2 second degree AV block s/p pacemaker placement on 07/02/24 with postoperative course complicated by episodes of sustained ventricular tachycardia requiring upgrade to an ICD on 07/04/24, HTN, HLD, mild nonobstructive CAD, DMII with diabetic nephropathy, REMBERTO on CPAP, pulmonary emphysema, longstanding iron deficiency anemia, BPH with LUTS, benign paroxysmal vertigo, glaucoma of both eyes, depression, GERD and generalized osteoarthritis who presented to the ED via EMS with complaints of fever, chills and generalized weakness. Patient with recent invasive cardiac procedures including TAVR on 06/19/24 for severe and pacemaker placement on 07/02/24 with postoperative course complicated by episodes of sustained ventricular tachycardia requiring upgrade to an ICD on 07/04/24. 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 EF 55 to 60%. Moderate concentric LVH. TAVR bioprosthesis is present. No significant bioprosthetic aortic valve regurgitation. Gradient is normal for prosthetic arctic valve. Moderate mitral annular calcification. Mild tricuspid regurgitation. Estimated systolic blood pressure 43 mmHg. No evidence of vegetation within the limitations of imaging modality. --S/P ADOLFO: Mobile echodensity) to the ICD lead as it transverses through the right atrium. Imaging consistent with vegetation or thrombus. Left atrium is moderately dilated. No thrombus detected in the left atrial appendage. Lactic acidosis resolved with IV fluids --S/P ICD extraction by on 08/04/24 Continue antibiotics: vancomycin, cefepime, gentamicin>> transitioned to Rocephin, ampicillin Appreciate cardiology, infectious disease input Would likely need 6 weeks of antibiotic course from first negative blood cultures Needs PICC line prior to discharge Follow-up wound cultures--mixed probable skin christiana, final cultures pending Monitor volume status, on Lasix as needed Will give a dose of IV Lasix today Discuss with ID for final recommendations on antibiotic therapy. 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 Patient has been receiving IV Venofer as outpatient Currently no signs of bleeding Anemia workup reviewed Needs follow-up with hematology on discharge Received IV Venofer Leukopenia, thrombocytopenia resolved Hemoglobin 7.9 today Monitor CBC No bleeding issues currently Atrial flutter with rapid ventricular response--POA ICD interrogation IV amiodarone discontinued Continue amiodarone, metoprolol Not on anticoagulation due to anemia, thrombocytopenia Appreciate cardiology input Right cephalic vein thrombosis Likely due to IV line placement IV line removed Discussed with on 08/03/2024: Recommends to avoid any systemic anticoagulation Conservative management for now If clinically worsens, we will repeat Doppler to reassess clot burden Clinically improving Back pain likely due to dextroscoliosis, spondylolisthesis --Lumbar spine x-ray: Moderately severe dextroscoliosis. Severe degenerative spondylosis with probable elements of spinal stenosis through the mid and lower lumbar spine. Spondylolysis with grade 1 spondyl olisthesis of L5 on S1. -- Sacrum/coccygeal x-ray:Spondylolysis with grade 1 spondylolisthesis of L5-S1. Otherwise negative for acute bony abnormality. --MRI Lumbar Spine:Degenerative changes. -- Minimize IV narcotics as able has tendency to develop constipation Bowel regimen as needed Appreciate orthopedics input: Conservative management for now PT OT as able (2) Elevated troponin: Plan: Likely demand ischemia secondary to sepsis, atrial flutter RVR (3) History of transcatheter aortic valve replacement (TAVR): Plan: Severe s/p TAVR performed on 06/19/24 at [facility]. Follows with [facility] as an outpatient. (4) Hyponatremia: Plan: Resolved with IV fluids Monitor sodium levels (5) Thrombocytopenia: Plan: Likely secondary to sepsis Currently no acute bleeding issues Resolved Monitor (6) Hyperlipidemia: Plan: Continue statin (7) CAD (coronary artery disease): Plan: Continue aspirin, metoprolol, statin (8) History of sustained ventricular tachycardia: (9) S/P ICD (internal cardiac defibrillator) procedure: Plan: Mobitz type 2 second degree AV block s/p pacemaker placement on 07/02/24 with postoperative course complicated by episodes of sustained ventricular tachycardia requiring upgrade to an ICD on 07/04/24. Other Chronic Medical Conditions: REMBERTO - Continue CPAP HS. HTN -continue current medications, monitor blood pressure DVT Px SQ Heparin Code Status: DNR/DNI Disposition: PT OT prior to discharge Admission and Anticipated Discharge Date Admission Date: July 31, 2024 Subjective Patient is seen and examined at bedside States feeling a lot better today No new complaints Back pain is well-controlled Discussed with cardiology today Denies any chest pain, dyspnea, nausea, vomiting, abdominal pain Upper extremity edema, erythema improving Review of Systems Review of Systems: All systems reviewed & are unremarkable except as noted in Subjective Physical Exam Physical Exam: Physical Exam: Vitals signs as noted above General Appearance:Obese, no apparent distress Head: normocephalic, Atraumatic Eyes: normal inspection, EOMI Neck: supple, Trachea midline Respiratory/Chest: Decreased breath sounds, CTA, No accessory muscle use Cardiovascular: S1, S2, no murmur Abdomen/GI:Soft, Non tender, Bowel sounds present Extremities/Musculoskeletal:normal inspection, 2+ edema, right upper extremity swelling, erythema, tender improving Neurologic/Psych:AAOX3, grossly no focal neurological deficits Skin: normal color, warm Results & Data Results & Data Vital Signs (Past 12 Hours) Vital Signs Temp Pulse Pulse Resp BP Pulse Ox O2 Del Method 08/06/24 12:00 36.7 C 71 16 142/69 H 96 Room Air 08/06/24 08:00 70 08/06/24 07:54 36.8 C 78 18 127/63 94 BiPAP 08/06/24 03:24 60 19 90 Laboratory Results Short CBC 08/06/24 Range/Units 06:52 WBC 7.81 (4.8-10.8) K/ul Hgb 7.9 L (14.0-18.0) g/dl Hct 27.2 L (42.0-52.0) % Plt Count 215 (130-400) K/uL BMP 08/06/24 06:52 Sodium 137 Potassium 3.6 Chloride 102 Carbon Dioxide 33 H BUN 12 Creatinine 1.02 Glucose 173 H Calcium 8.7 (6) Hyperlipidemia Hyperlipidemia type: unspecified Qualified Code(s): E78.5 - Hyperlipidemia, u nspecified (7) CAD (coronary artery disease) Coronary Disease-Associated Artery/Lesion type: unspecified vessel or lesion t ype [place] vs. transplanted heart: [place] heart Associated angina: unspecified whether angina present Qualified Code(s): I25.10 - Atherosclerotic heart disease of [place] coronary artery without angina pectoris
[2024-08-07] MEDS: METOPROLOL TARTRATE 1 MG/ML VIAL IV STA (07:56)
[2024-08-07 08:01] LABS: BUN Creatinine Ratio 12.8 (10-20); Calcium 9.5 mg/dl (8.6-10.3); Creatinine Clr Calc Pharmacy 75.4 ml/min; Potassium 4.1 mmol/L (3.5-5.1)
--- NOTE | 2024-08-07 08:54 | Cardiology Progress Note ---
Date of Service August 07, 2024 Assessment & Plan (1) Endocarditis: (2) Enterococcal bacteremia: (3) S/P ICD (internal cardiac defibrillator) procedure: (4) History of sustained ventricular tachycardia: (5) History of transcatheter aortic valve replacement (TAVR): Plan * s/p Device extraction * Antibiotic therapy and supportive care per internal medicine. 08/06/2024: -patient is resting comfortably in bed with no acute concerns at this time. -Appear volume overloaded on exam. Give Furosemide 40mg IV x1 dose now. -Monitor daily weights with standing scale, strict I&O and labs closely. -goal serum K > 4.0 and Serum Mag > 2.0. Close monitoring of renal function. -H/H remains low but stable, would discuss with hematology should patient's labs worsening -Assure Vest is to arrange for placement of external defibrillator. Patient requires this after having and episode of sustained VT with syncope which led to prior hospitalization. Unfortunately, his implanted ICD had to be removed s/t to sepsis with a noted vegetation on a lead. Will need set up prior to discharge. -Plan is for patient to be followed by ID with plans for antibiotics following discharge. Primary team to discuss this with ID as patient of a PICC line will be complicated by the new findings of thrombophlebitis in both upper extremities. -Plan is for eventual replacement of ICD, but on the right side. -Continue Toprol xl 50mg daily -Continue Crestor 40mg daily -Continue ASA 81mg daily. Re-assess volume status in AM, follow labs closely. Case has been discussed with Dr. Allen. Further recommendations regarding plan of care as per his assessment. I spent a total of 30 minutes on the date of service in preparation, delivery, documentation of the care provided to the patient excluding any time spent in the performance of separately billed services. CYNDI Crabtree [facility] Admission and Anticipated Discharge Date Admission Date: July 31, 2024 Subjective 08/07/2024:Patient seen and examined in follow up today. Feeling Labs, vitals, diagnostics, telemetry and documentation reviewed. Telemetry reviewed showing Physical Exam Constitutional: well developed, well nourished and + ill appearing; no acute distress Neck: normal visual inspection and trachea midline Respiratory: normal respiratory effort; no respiratory distress, no labored breathing and no cough Auscultation: lungs clear to auscultation bilaterally; no crackles, no rales, no rhonchi and no wheezes Cardiovascular: Rate/Rhythm: regular rate and regular rhythm Heart Sounds: normal S1, normal S2 and + murmur (+1/6 systolic ) Vessels: dorsalis pedis pulses present; no JVD Extremities: + edema (+1 BLE) Skin: no rashes, warm and dry Psychiatric: A+Ox3, euthymic affect Results & Data Vital Signs (Past 12 Hours) Vital Signs Temp Pulse Pulse Resp BP BP Pulse Ox 08/07/24 07:56 98 H 130/80 08/07/24 07:20 36.7 C 105 H 19 129/75 91 08/07/24 02:39 6 L 17 90 08/07/24 02:31 37.1 C 67 18 136/71 94 08/06/24 22:56 62 08/06/24 22:39 08/06/24 22:34 36.6 C 60 18 148/73 H 94 08/06/24 22:11 57 L 19 95 O2 Del Method O2 Flow Rate 08/07/24 07:56 08/07/24 07:20 Room Air 08/07/24 02:39 2 08/07/24 02:31 BiPAP 08/06/24 22:56 08/06/24 22:39 CPAP 08/06/24 22:34 BiPAP 08/06/24 22:11 Laboratory Results Comprehensive Metabolic Panel 08/07/24 Range/Units 07:09 Sodium 139 (136-145) mmol/L Potassium 4.1 (3.5-5.1) mmol/L Chloride 101 (98-107) mmol/L Carbon Dioxide 31 (21-32) mmol/L BUN 14 (6-23) mg/dl Creatinine 1.09 (0.6-1.4) mg/dl Glucose 184 H (70-99(Fasting)) mg/dl Calcium 9.5 (8.6-10.3) mg/dl Intake and Output 08/06/24 08/07/24 08/07/24 22:59 06:59 14:59 Intake Total 550 / 1550 300 / 1550 Output Total 425 / 850 425 / 850 Balance 125 / 700 -125 / 700 Intake: IV 250 / 700 200 / 700 Ampicillin 2,000 mg In Sodium 200 / 600 200 / 600 Chlor 0.9% Mini-B 100 ml @ 200 mls/hr IV Q4H [facility] Rx#:[id number] cefTRIAXone SODIUM 2,000 mg In 50 / 100 50 ml @ 100 mls/hr IV Q12 [facility] Rx#:[id number] Oral 300 / 850 100 / 850 Output: Urine 425 / 850 425 / 850 Other: Weight 108.3 kg (1) Endocarditis Endocarditis type: infective Infective endocarditis organism: bacterial Chronicity: acute Qualified Code(s): I33.0 - Acute and subacute infective endocarditis
[2024-08-07] MEDS: MAGNESIUM SULFATE / D5W 1 GM/100 ML BAG IV ONE (09:44)
[2024-08-07 13:24] LABS: Hematocrit (blood only) 29.6 % (42.0-52.0); Hemoglobin 8.6 g/dl (14.0-18.0); Mean Corpuscular Hemoglobin 24.1 pg (25.0-34.0); Mean Corpuscular Hgb Conc 29.1 g/dL (32.0-36.0); Mean Corpuscular Volume 82.9 fL (80.0-100.0); Mean Platelet Volume 10.8 fL (9.4-12.4); Nucleated RBC # (auto) 0.04 K/uL (0.00-0.12); Nucleated RBC % (auto) 0.5 %; Platelet Count 265 K/uL (130-400); RDW Coefficient of Variation 22.7 % (11.5-14.5); RDW Standard Deviation 65.1 fL (36.4-46.3); Red Blood Count 3.57 M/uL (4.70-6.10); White Blood Count 7.51 K/ul (4.8-10.8)
[2024-08-07] MEDS: FUROSEMIDE 40 MG/4 ML VIAL IV ONE (13:45)
--- NOTE | 2024-08-07 14:22 | Electrocardiogram Report ---
Test Reason : Blood Pressure : */* mmHG Vent. Rate : 83 BPM Atrial Rate : 234 BPM P-R Int : * ms QRS Dur : 122 ms QT Int : 450 ms P-R-T Axes : * -10 71 degrees QTcB Int : 528 ms Atrial flutter with variable A-V block with ventricular escape complexes Left bundle branch block Abnormal ECG When compared with ECG of 04-Aug-2024 01:40, Atrial flutter has replaced Sinus rhythm ST elevation now present in Inferior leads QT has lengthened Confirmed by Milind Nichols ([id number]) on 08/07/2024 2:21:57 PM Referred By: Renny Mullins Confirmed By: Milind Nichols
--- NOTE | 2024-08-07 15:25 | Hospitalist Progress Note ---
Date of Service August 07, 2024 Assessment & Plan (1) Severe sepsis: Plan: Rafael Cantu is a 69y/o M with PMHx significant for severe aortic stenosis s/p TAVR on 06/19/24, chronic LBBB, Mobitz type 2 second degree AV block s/p pacemaker placement on 07/02/24 with postoperative course complicated by episodes of sustained ventricular tachycardia requiring upgrade to an ICD on 07/04/24, HTN, HLD, mild nonobstructive CAD, DMII with diabetic nephropathy, REMBERTO on CPAP, pulmonary emphysema, longstanding iron deficiency anemia, BPH with LUTS, benign paroxysmal vertigo, glaucoma of both eyes, depression, GERD and generalized osteoarthritis who presented to the ED via EMS with complaints of fever, chills and generalized weakness. Patient with recent invasive cardiac procedures including TAVR on 06/19/24 for severe and pacemaker placement on 07/02/24 with postoperative course complicated by episodes of sustained ventricular tachycardia requiring upgrade to an ICD on 07/04/24. 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 EF 55 to 60%. Moderate concentric LVH. TAVR bioprosthesis is present. No significant bioprosthetic aortic valve regurgitation. Gradient is normal for prosthetic arctic valve. Moderate mitral annular calcification. Mild tricuspid regurgitation. Estimated systolic blood pressure 43 mmHg. No evidence of vegetation within the limitations of imaging modality. --S/P ADOLFO: Mobile echodensity) to the ICD lead as it transverses through the right atrium. Imaging consistent with vegetation or thrombus. Left atrium is moderately dilated. No thrombus detected in the left atrial appendage. Lactic acidosis resolved with IV fluids --S/P ICD extraction by on 08/04/24 Continue antibiotics: vancomycin, cefepime, gentamicin>> transitioned to Rocephin, ampicillin Appreciate cardiology, infectious disease input Would likely need 6 weeks of antibiotic course from first negative blood cultures. 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 Patient has been receiving IV Venofer as outpatient Currently no signs of bleeding Anemia workup reviewed Needs follow-up with hematology on discharge Received IV Venofer Leukopenia, thrombocytopenia resolved Hemoglobin 8.6 today Monitor CBC No bleeding issues currently Atrial flutter with rapid ventricular response--POA ICD interrogation Currently no ICD as above IV amiodarone discontinued Continue amiodarone, metoprolol Given stable hemoglobin, thrombocytopenia resolved--consider to start anticoagulation likely with Eliquis Appreciate cardiology input Still in atrial flutter, rate controlled after IV Lopressor today Right cephalic vein thrombosis Likely due to IV line placement IV line removed Discussed with on 08/03/2024: Recommends to avoid any systemic anticoagulation Conservative management for now If clinically worsens, we will repeat Doppler to reassess clot burden Clinically improving Cardiology plans to start patient on Eliquis as able Back pain likely due to dextroscoliosis, spondylolisthesis --Lumbar spine x-ray: Moderately severe dextroscoliosis. Severe degenerative spondylosis with probable elements of spinal stenosis through the mid and lower lumbar spine. Spondylolysis with grade 1 spondylolisthesis of L5 on S1. -- Sacrum/coccygeal x-ray:Spondylolysis with grade 1 spondylolisthesis of L5-S1. Otherwise negative for acute bony abnormality. --MRI Lumbar Spine:Degenerative changes. -- Minimize IV narcotics as able has tendency to develop constipation Bowel regimen as needed Appreciate orthopedics input: Conservative management for now PT OT: Recommends to return home (2) Elevated troponin: Plan: Likely demand ischemia secondary to sepsis, atrial flutter RVR (3) History of transcatheter aortic valve replacement (TAVR): Plan: Severe s/p TAVR performed on 06/19/24 at [facility]. Follows with [facility] as an outpatient. (4) Hyponatremia: Plan: Resolved with IV fluids Monitor sodium levels (5) Thrombocytopenia: Plan: Likely secondary to sepsis Currently no acute bleeding issues Resolved Monitor (6) Hyperlipidemia: Plan: Continue statin (7) CAD (coronary artery disease): Plan: Continue aspirin, metoprolol, statin (8) History of sustained ventricular tachycardia: (9) S/P ICD (internal cardiac defibrillator) procedure: Plan: Mobitz type 2 second degree AV block s/p pacemaker placement on 07/02/24 with postoperative course complicated by episodes of sustained ventricular tachycardia requiring upgrade to an ICD on 07/04/24. Other Chronic Medical Conditions: REMBERTO - Continue CPAP HS. HTN -continue current medications, monitor blood pressure DVT Px SQ Heparin for now Code Status: DNR/DNI Disposition: Home as able Admission and Anticipated Discharge Date Admission Date: July 31, 2024 Subjective Patient is seen and examined at bedside Patient went into atrial flutter with RVR this morning Subjectively feels well with no complaints Discussed with cardiology today Denies any chest pain, dyspnea, nausea, vomiting, abdominal pain Upper extremity edema, erythema continues to improve Review of Systems Review of Systems: All systems reviewed & are unremarkable except as noted in Subjective Physical Exam Physical Exam: Physical Exam: Vitals signs as noted above General Appearance:Obese, no apparent distress Head: normocephalic, Atraumatic Eyes: normal inspection, EOMI Neck: supple, Trachea midline Respiratory/Chest: Decreased breath sounds, CTA, No accessory muscle use Cardiovascular: Irregularly irregular, no murmur Abdomen/GI:Soft, Non tender, Bowel sounds present Extremities/Musculoskeletal:normal inspection, 2+ edema, right upper extremity swelling, erythema, tender improving Neurologic/Psych:AAOX3, grossly no focal neurological deficits Skin: normal color, warm Results & Data Results & Data Vital Signs (Past 12 Hours) Vital Signs Temp Pulse Pulse Resp BP BP Pulse Ox 08/07/24 14:39 57 L 08/07/24 13:44 63 120/69 08/07/24 12:31 61 08/07/24 11:26 36.6 C 56 L 18 125/74 91 08/07/24 08:11 78 123/82 08/07/24 07:56 98 H 130/80 08/07/24 07:20 36.7 C 105 H 19 129/75 91 O2 Del Method 08/07/24 14:39 08/07/24 13:44 08/07/24 12:31 08/07/24 11:26 Room Air 08/07/24 08:11 08/07/24 07:56 08/07/24 07:20 Room Air Laboratory Results Short CBC 08/07/24 Range/Units 12:28 WBC 7.51 (4.8-10.8) K/ul Hgb 8.6 L (14.0-18.0) g/dl Hct 29.6 L (42.0-52.0) % Plt Count 265 (130-400) K/uL BMP 08/07/24 07:09 Sodium 139 Potassium 4.1 Chloride 101 Carbon Dioxide 31 BUN 14 Creatinine 1.09 Glucose 184 H Calcium 9.5 (6) Hyperlipidemia Hyperlipidemia type: unspecified Qualified Code(s): E78.5 - Hyperlipidemia, unspecified (7) CAD (coronary artery disease) Coronary Disease-Associated Artery/Lesion type: unspecified vessel or lesion type [place] vs. transplanted heart: [place] heart Associated angina: unspecified whether angina present Qualified Code(s): I25.10 - Atherosclerotic heart disease of [place] coronary artery without angina pectoris
--- NOTE | 2024-08-07 15:48 | Cardiology Progress Note ---
Date of Service August 07, 2024 Assessment & Plan (1) Endocarditis: (2) Enterococcal bacteremia: (3) S/P ICD (internal cardiac defibrillator) procedure: (4) History of sustained ventricular tachycardia: (5) History of transcatheter aortic valve replacement (TAVR): (6) Atrial flutter: Plan * s/p Device extraction * Antibiotic therapy and supportive care per internal medicine. Patient with chronic anemia and had undergone a colonoscopy at [facility] in late 2024 with findings of colonic angioectasia which was treated with argon laser. 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 He has since undergone transcatheter aortic valve implantation. It also recently undergone permanent pacemaker implantation with an upgrade to AICD given findings of syncope and ventricular tachycardia in the setting of normal LVEF. He had been found to have enterococcal bacteremia this admission. ADOLFO suggestive of lead vegetation and the device was extracted on 08/03/2024. The left subclavian bandage was changed today by the undersigned. Mild tinge of dried blood was noted on the dressing. No hematoma. The incision is intact with well-approximated sutures and no drainage. Patient now with recurrent right controlled atrial flutter which she is tolerating relatively well hemodynamically. He did have this earlier this hospital stay and with antitachycardia pacing reverted to sinus rhythm. At this point, despite his ongoing anemia, benefits of anticoagulation with Eliquis to prevent stroke are felt to outweigh bleeding risk. Hemoglobin relatively stable today at 8.6 improved from 7.9 yesterday. Continue diuresis, additional dose of IV furosemide administered today for volume overload likely in setting of IV fluid administration/antibiotics. Admission and Anticipated Discharge Date Admission Date: July 31, 2024 Subjective Patient seen in cardiology follow-up. Denies subjective complaint, with exception of a slight "lump "in his throat. No rash. On telemetry he was noted to have reverted to a rate controlled atrial flutter with resting ventricular rate in the range of 50 to 60 bpm onset 08/07/2024 at 6:23 AM. Physical Exam Physical Exam: Temp Pulse Resp BP Pulse Ox O2 Del Method O2 Flow Rate 36.5 C 50 L 19 110/69 93 Room Air 2 08/07/24 15:23 08/07/24 15:23 08/07/24 15:23 08/07/24 15:23 08/07/24 15:23 08/07/24 15:23 08/07/24 02:39 FiO2 21 08/04/24 04:00 Constitutional: WD/WN, vitals as above well developed, well nourished, + ill appearing and + obese; no acute distress Neck: trachea midline, no thyromegaly normal visual inspection, trachea midline and + thick neck Respiratory: normal respiratory effort, lungs clear to auscultation normal respiratory effort; no respiratory distress, no labored breathing, no cough and not tachypneic Auscultation: lungs clear to auscultation bilaterally and + diminished lung sounds; no crackles, no rales, no rhonchi and no wheezes Cardiovascular: RRR, no murmur, no edema Rate/Rhythm: regular rate and regular rhythm Heart Sounds: normal S1, normal S2 and + murmur (+1/6 systolic ) Vessels: dorsalis pedis pulses present; no JVD Extremities: + edema (+1 BLE) Gastrointestinal (Abdomen): normal bowel sounds, soft, nontender, no hepatosplenomegaly Skin: no rashes, warm and dry Neurologic: PERRL, EOMI, accommodation nl, no face palsy, no dysarthria Psychiatric: A+Ox3, euthymic affect Results & Data Vital Signs (Past 12 Hours) Vital Signs Temp Pulse Pulse Resp BP BP Pulse Ox 08/07/24 15:23 36.5 C 50 L 19 110/69 93 08/07/24 14:39 57 L 08/07/24 13:44 63 120/69 08/07/24 12:31 61 08/07/24 11:26 36.6 C 56 L 18 125/74 91 08/07/24 08:11 78 123/82 08/07/24 07:56 98 H 130/80 08/07/24 07:20 36.7 C 105 H 19 129/75 91 O2 Del Method 08/07/24 15:23 Room Air 08/07/24 14:39 08/07/24 13:44 08/07/24 12:31 08/07/24 11:26 Room Air 08/07/24 08:11 08/07/24 07:56 08/07/24 07:20 Room Air Laboratory Results CBC 08/07/24 Range/Units 12:28 WBC 7.51 (4.8-10.8) K/ul RBC 3.57 L (4.70-6.10) M/uL Hgb 8.6 L (14.0-18.0) g/dl Hct 29.6 L (42.0-52.0) % Plt Count 265 (130-400) K/uL Comprehensive Metabolic Panel 08/07/24 Range/Units 07:09 Sodium 139 (136-145) mmol/L Potassium 4.1 (3.5-5.1) mmol/L Chloride 101 (98-107) mmol/L Carbon Dioxide 31 (21-32) mmol/L BUN 14 (6-23) mg/dl Creatinine 1.09 (0.6-1.4) mg/dl Glucose 184 H (70-99(Fasting)) mg/dl Calcium 9.5 (8.6-10.3) mg/dl Intake and Output 08/07/24 08/07/24 08/07/24 06:59 14:59 22:59 Intake Total 300 / 1550 700 / 700 Output Total 425 / 850 Balance -125 / 700 700 / 700 Intake: IV 200 / 700 350 / 350 Ampicillin 2,000 mg In Sodium 200 / 600 200 / 200 Chlor 0.9% Mini-B 100 ml @ 200 mls/hr IV Q4H [facility] Rx#:[id number] Magnesium Sulfate / D5w 1 gm In 100 / 100 100 ml @ 50 mls/hr IV ONE ONE Rx#:[id number] cefTRIAXone SODIUM 2,000 mg In 50 / 50 50 ml @ 100 mls/hr IV Q12 [facility] Rx#:[id number] Oral 100 / 850 350 / 350 Output: Urine 425 / 850 Other: # Unmeasured Voids 2 Weight 108.3 kg (1) Endocarditis Endocarditis type: infective Infective endocarditis organism: bacterial Chronicity: acute Qualified Code(s): I33.0 - Acute and subacute infective endocarditis
[2024-08-07] MEDS: APIXABAN 5 MG TABLET PO ONE (17:06)
--- NOTE | 2024-08-07 20:03 | Communication Note ---
Date of Service: August 07, 2024
[2024-08-07] MEDS: BENZONATATE 100 MG CAPSULE PO PRN (20:33)
[2024-08-07] MEDS: LANTUS PER UNIT CHARGE SC SCH (20:34)
[2024-08-07] MEDS: APIXABAN 5 MG TABLET PO SCH (20:35)
[2024-08-07 21:25] LABS: Adenovirus PCR Not Detected (NotDetected); Bordetella parapertussis PCR Not Detected (NotDetected); Bordetella pertussis PCR Not Detected (NotDetected); Chlamydia pneumoniae PCR Not Detected (NotDetected); Coronavirus 229E PCR Not Detected (NotDetected); Coronavirus CoV-2 (COVID19)PCR Not Detected (NotDetected); Coronavirus HKU1 PCR Not Detected (NotDetected); Coronavirus NL63 PCR Not Detected (NotDetected); Coronavirus OC43PCR Not Detected (NotDetected); Human Metapneumovirus PCR Not Detected (NotDetected); Influenza A PCR Not Detected (NotDetected); Influenza B PCR Not Detected (NotDetected); Mycoplasma pneumoniae PCR Not Detected (NotDetected); Parainfluenza Virus 1 PCR Not Detected (NotDetected); Parainfluenza Virus 2 PCR Not Detected (NotDetected); Parainfluenza Virus 3 PCR Not Detected (NotDetected); Parainfluenza Virus 4 PCR Not Detected (NotDetected); Respiratory Syncytial VirusPCR Not Detected (NotDetected); Rhinovirus/Enterovirus PCR Not Detected (NotDetected)
--- NOTE | 2024-08-07 21:54 | XRay Report ---
Exam(s): XR CXR 1 VIEW EXAM: XR Chest, 1 View CLINICAL HISTORY: Reason for exam: cough. TECHNIQUE: Frontal view of the chest. COMPARISON: FINDINGS: Lungs: Mild pulmonary vascular congestion. No consolidation. Pleural space: Unremarkable. No pneumothorax. Heart: Unremarkable. No cardiomegaly. Mediastinum: Unremarkable. Normal mediastinal contour. Bones/joints: Unremarkable. No acute fracture. IMPRESSION: Mild pulmonary vascular congestion, similar to prior study Electronically signed by: Sridhar Mckenna MD 08/07/24 21:53 PM
[2024-08-08 07:33] LABS: Hematocrit (blood only) 30.8 % (42.0-52.0); Hemoglobin 8.8 g/dl (14.0-18.0); Mean Corpuscular Hemoglobin 23.5 pg (25.0-34.0); Mean Corpuscular Hgb Conc 28.6 g/dL (32.0-36.0); Mean Corpuscular Volume 82.4 fL (80.0-100.0); Mean Platelet Volume 10.8 fL (9.4-12.4); Platelet Count 269 K/uL (130-400); RDW Coefficient of Variation 23.1 % (11.5-14.5); RDW Standard Deviation 65.4 fL (36.4-46.3); Red Blood Count 3.74 M/uL (4.70-6.10); White Blood Count 7.64 K/ul (4.8-10.8)
[2024-08-08 08:01] LABS: BUN Creatinine Ratio 16.4 (10-20); Calcium 8.9 mg/dl (8.6-10.3); Creatinine Clr Calc Pharmacy 70.7 ml/min; Magnesium 2.4 mg/dl (1.7-2.4); Phosphorus 3.8 mg/dl (2.5-4.9)
--- NOTE | 2024-08-08 08:34 | Hospitalist Progress Note ---
Date of Service August 08, 2024 Assessment & Plan (1) Severe sepsis: Plan: Rafael Cantu is a 69y/o M with PMHx significant for severe aortic stenosis s/p TAVR on 06/19/24, chronic LBBB, Mobitz type 2 second degree AV block s/p pacemaker placement on 07/02/24 with postoperative course complicated by episodes of sustained ventricular tachycardia requiring upgrade to an ICD on 07/04/24, HTN, HLD, mild nonobstructive CAD, DMII with diabetic nephropathy, REMBERTO on CPAP, pulmonary emphysema, longstanding iron deficiency anemia, BPH with LUTS, benign paroxysmal vertigo, glaucoma of both eyes, depression, GERD and generalized osteoarthritis who presented to the ED via EMS with complaints of fever, chills and generalized weakness. Patient with recent invasive cardiac procedures including TAVR on 06/19/24 for severe and pacemaker placement on 07/02/24 with postoperative course complicated by episodes of sustained ventricular tachycardia requiring upgrade to an ICD on 07/04/24. 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 EF 55 to 60%. Moderate concentric LVH. TAVR bioprosthesis is present. No significant bioprosthetic aortic valve regurgitation. Gradient is normal for prosthetic arctic valve. Moderate mitral annular calcification. Mild tricuspid regurgitation. Estimated systolic blood pressure 43 mmHg. No evidence of vegetation within the limitations of imaging modality. --S/P ADOLFO: Mobile echodensity) to the ICD lead as it transverses through the right atrium. Imaging consistent with vegetation or thrombus. Left atrium is moderately dilated. No thrombus detected in the left atrial appendage. Lactic acidosis resolved with IV fluids --S/P ICD extraction by on 08/04/24 Continue antibiotics: vancomycin, cefepime, gentamicin>> transitioned to Rocephin, ampicillin Appreciate cardiology, infectious disease input Would likely need 6 weeks of antibiotic course from first negative blood cultures. Confirmed with infectious disease on 08/06/2024 Needs PICC line prior to discharge Monitor volume status, cont. 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 Patient has been receiving IV Venofer as outpatient Currently no signs of bleeding Anemia workup reviewed Needs follow-up with hematology on discharge Received IV Venofer Leukopenia, thrombocytopenia resolved Hemoglobin 8.8 today Monitor CBC No bleeding issues currently Atrial flutter with rapid ventricular response--POA ICD interrogation Currently no ICD as above IV amiodarone discontinued Continue amiodarone, metoprolol Given stable hemoglobin, thrombocytopenia resolved-- started anticoagulation with Eliquis, per cardiology Appreciate cardiology input atrial flutter yesterday Right cephalic vein thrombosis Likely due to IV line placement IV line removed previous hospitalist discussed with on 08/03/2024: Recommends to avoid any systemic anticoagulation Conservative management for now If clinically worsens, we will repeat Doppler to reassess clot burden Clinically improving Cardiology plans to start patient on Eliquis as able Back pain likely due to dextroscoliosis, spondylolisthesis --Lumbar spine x-ray: Moderately severe dextroscoliosis. Severe degenerative spondylosis with probable elements of spinal stenosis through the mid and lower lumbar spine. Spondylolysis with grade 1 spondylolisthesis of L5 on S1. -- Sacrum/coccygeal x-ray:Spondylolysis with grade 1 spondylolisthesis of L5-S1. Otherwise negative for acute bony abnormality. --MRI Lumbar Spine:Degenerative changes. -- Minimize IV narcotics as able has tendency to develop constipation Bowel regimen as needed Appreciate orthopedics input: Conservative management for now PT OT: Recommends to return home (2) Elevated troponin: Plan: Likely demand ischemia secondary to sepsis, atrial flutter RVR (3) History of transcatheter aortic valve replacement (TAVR): Plan: Severe s/p TAVR performed on 06/19/24 at [facility]. Follows with [facility] as an outpatient. (4) Hyponatremia: Plan: Resolved with IV fluids Monitor sodium levels (5) Thrombocytopenia: Plan: Likely secondary to sepsis Currently no acute bleeding issues Resolved Monitor (6) Hyperlipidemia: Plan: Continue statin (7) CAD (coronary artery disease): Plan: Continue aspirin, metoprolol, statin (8) History of sustained ventricular tachycardia: (9) S/P ICD (internal cardiac defibrillator) procedure: Plan: Mobitz type 2 second degree AV block s/p pacemaker placement on 07/02/24 with postoperative course complicated by episodes of sustained ventricular tachycardia requiring upgrade to an ICD on 07/04/24. Other Chronic Medical Conditions: REMBERTO - Continue CPAP HS. HTN -continue current medications, monitor blood pressure DVT Px SQ Heparin -> eliquis Code Status: DNR/DNI Disposition: Home as able Admission and Anticipated Discharge Date Admission Date: July 31, 2024 Subjective Pt seen in follow up bacteremia ICD removed 08/03 ID consult note on 08/02 cardiology following closely Patient went into atrial flutter with RVR yesterday AM Subjectively feels well with no complaints Discussed with cardiology today - will cont. to olivia, also on eliquis Pt denies any chest pain, dyspnea, nausea, vomiting, abdominal pain Upper extremity edema, erythema continues to improve Review of Systems Review of Systems: All systems reviewed & are unremarkable except as noted in Subjective Physical Exam Physical Exam: General Appearance:Obese, no apparent distress Head: normocephalic, Atraumatic Eyes: normal inspection, EOMI Neck: supple Respiratory/Chest: Decreased breath sounds, CTA, No accessory muscle use Cardiovascular: Irregularly irregular, no murmur Abdomen/GI:Soft, Non tender, Bowel sounds present Extremities/Musculoskeletal:normal inspection, + edema, right upper extremity swelling, erythema, tender much improved now Neurologic/Psych:AAOX3, grossly no focal neurological deficits Skin: normal color, warm Results & Data Results & Data Vital Signs (Past 12 Hours) Vital Signs Temp Pulse Pulse Resp BP Pulse Ox O2 Del Method 08/08/24 07:14 36.5 C 56 L 17 123/74 93 Room Air 08/08/24 03:45 17 08/08/24 02:38 36.5 C 55 L 18 114/68 96 BiPAP 08/07/24 22:50 46 L 08/07/24 22:36 36.6 C 55 L 20 122/68 96 BiPAP 08/07/24 22:30 54 L 17 92 08/07/24 21:27 Room Air O2 Flow Rate 08/08/24 07:14 08/08/24 03:45 2 08/08/24 02:38 08/07/24 22:50 08/07/24 22:36 08/07/24 22:30 2 08/07/24 21:27 Laboratory Results 08/08/24 08/08/24 08/07/24 Range/Units 07:11 06:49 Unknown WBC 7.64 (4.8-10.8) K/ul RBC 3.74 L (4.70-6.10) M/uL Hgb 8.8 L (14.0-18.0) g/dl Hct 30.8 L (42.0-52.0) % MCV 82.4 (80.0-100.0) fL MCH 23.5 L (25.0-34.0) pg MCHC 28.6 L (32.0-36.0) g/dL RDW Std Deviation 65.4 H (36.4-46.3) fL RDW Coeff of Freddie 23.1 H (11.5-14.5) % Plt Count 269 (130-400) K/uL MPV 10.8 (9.4-12.4) fL Absolute Nucleated RBC (0.00-0.12) K/uL Nucleated RBC % (auto) % Sodium 137 (136-145) mmol/L Potassium 4.0 (3.5-5.1) mmol/L Chloride 100 (98-107) mmol/L Carbon Dioxide 31 (21-32) mmol/L Anion Gap 6 (3-11) BUN 19 (6-23) mg/dl Creatinine 1.16 (0.6-1.4) mg/dl Est Cr Clr Drug Dosing 70.7 ml/min eGFR 67.34 BUN/Creatinine Ratio 16.4 (10-20) Glucose 182 H (70-99(Fasting)) mg/dl POC Glucose 178 H (70-99) mg/dl Calcium 8.9 (8.6-10.3) mg/dl Phosphorus 3.8 (2.5-4.9) mg/dl Magnesium 2.4 (1.7-2.4) mg/dl Adenovirus (PCR) Not Detected (NotDetected) B. pertussis DNA (PCR) Not Detected (NotDetected) B.parapertussis DNA PCR Not Detected (NotDetected) C. pneumoniae DNA (PCR) Not Detected (NotDetected) Coronavirus OC43 (PCR) Not Detected (NotDetected) Coronavirus HKU1 (PCR) Not Detected (NotDetected) Coronavirus 229E (PCR) Not Detected (NotDetected) SARS-CoV-2 (PCR) Not Detected (NotDetected) Coronavirus NL63 (PCR) Not Detected (NotDetected) Human Metapneumovir PCR Not Detected (NotDetected) Influenza Type A (PCR) Not Detected (NotDetected) Influenza Type B (PCR) Not Detected (NotDetected) M. pneumoniae (PCR) Not Detected (NotDetected) Parainfluenza 1 (PCR) Not Detected (NotDetected) Parainfluenza 2 (PCR) Not Detected (NotDetected) Parainfluenza 3 (PCR) Not Detected (NotDetected) Parainfluenza 4 (PCR) Not Detected (NotDetected) RSV (PCR) Not Detected (NotDetected) Entero/Rhino (PCR) Not Detected (NotDetected) 08/07/24 08/07/24 08/07/24 Range/Units 20:03 16:26 12:28 WBC 7.51 (4.8-10.8) K/ul RBC 3.57 L (4.70-6.10) M/uL Hgb 8.6 L (14.0-18.0) g/dl Hct 29.6 L (42.0-52.0) % MCV 82.9 (80.0-100.0) fL MCH 24.1 L (25.0-34.0) pg MCHC 29.1 L (32.0-36.0) g/dL RDW Std Deviation 65.1 H (36.4-46.3) fL RDW Coeff of Freddie 22.7 H (11.5-14.5) % Plt Count 265 (130-400) K/uL MPV 10.8 (9.4-12.4) fL Absolute Nucleated RBC 0.04 (0.00-0.12) K/uL Nucleated RBC % (auto) 0.5 % Sodium (136-145) mmol/L Potassium (3.5-5.1) mmol/L Chloride (98-107) mmol/L Carbon Dioxide (21-32) mmol/L Anion Gap (3-11) BUN (6-23) mg/dl Creatinine (0.6-1.4) mg/dl Est Cr Clr Drug Dosing ml/min eGFR BUN/Creatinine Ratio (10-20) Glucose (70-99(Fasting)) mg/dl POC Glucose 166 H 97 (70-99) mg/dl Calcium (8.6-10.3) mg/dl Phosphorus (2.5-4.9) mg/dl Magnesium (1.7-2.4) mg/dl Adenovirus (PCR) (NotDetected) B. pertussis DNA (PCR) (NotDetected) B.parapertussis DNA PCR (NotDetected) C. pneumoniae DNA (PCR) (NotDetected) Coronavirus OC43 (PCR) (NotDetected) Coronavirus HKU1 (PCR) (NotDetected) Coronavirus 229E (PCR) (NotDetected) SARS-CoV-2 (PCR) (NotDetected) Coronavirus NL63 (PCR) (NotDetected) Human Metapneumovir PCR (NotDetected) Influenza Type A (PCR) (NotDetected) Influenza Type B (PCR) (NotDetected) M. pneumoniae (PCR) (NotDetected) Parainfluenza 1 (PCR) (NotDetected) Parainfluenza 2 (PCR) (NotDetected) Parainfluenza 3 (PCR) (NotDetected) Parainfluenza 4 (PCR) (NotDetected) RSV (PCR) (NotDetected) Entero/Rhino (PCR) (NotDetected) 08/07/24 Range/Units 11:23 WBC (4.8-10.8) K/ul RBC (4.70-6.10) M/uL Hgb (14.0-18.0) g/dl Hct (42.0-52.0) % MCV (80.0-100.0) fL MCH (25.0-34.0) pg MCHC (32.0-36.0) g/dL RDW Std Deviation (36.4-46.3) fL RDW Coeff of Freddie (11.5-14.5) % Plt Count (130-400) K/uL MPV (9.4-12.4) fL Absolute Nucleated RBC (0.00-0.12) K/uL Nucleated RBC % (auto) % Sodium (136-145) mmol/L Potassium (3.5-5.1) mmol/L Chloride (98-107) mmol/L Carbon Dioxide (21-32) mmol/L Anion Gap (3-11) BUN (6-23) mg/dl Creatinine (0.6-1.4) mg/dl Est Cr Clr Drug Dosing ml/min eGFR BUN/Creatinine Ratio (10-20) Glucose (70-99(Fasting)) mg/dl POC Glucose 225 H (70-99) mg/dl Calcium (8.6-10.3) mg/dl Phosphorus (2.5-4.9) mg/dl Magnesium (1.7-2.4) mg/dl Adenovirus (PCR) (NotDetected) B. pertussis DNA (PCR) (NotDetected) B.parapertussis DNA PCR (NotDetected) C. pneumoniae DNA (PCR) (NotDetected) Coronavirus OC43 (PCR) (NotDetected) Coronavirus HKU1 (PCR) (NotDetected) Coronavirus 229E (PCR) (NotDetected) SARS-CoV-2 (PCR) (NotDetected) Coronavirus NL63 (PCR) (NotDetected) Human Metapneumovir PCR (NotDetected) Influenza Type A (PCR) (NotDetected) Influenza Type B (PCR) (NotDetected) M. pneumoniae (PCR) (NotDetected) Parainfluenza 1 (PCR) (NotDetected) Parainfluenza 2 (PCR) (NotDetected) Parainfluenza 3 (PCR) (NotDetected) Parainfluenza 4 (PCR) (NotDetected) RSV (PCR) (NotDetected) Entero/Rhino (PCR) (NotDetected) Medications Administered Current Inpatient Medications Acetaminophen (Acetaminophen 500 Mg Tab) 1,000 mg PO Q8H PRN PRN Reason: Pain Stop: 08/30/24 11:16 Last Admin: 08/03/24 08:25 Dose: 1,000 mg Amiodarone HCl (Amiodarone 200 Mg Tab) 200 mg PO BIDM [facility] Stop: 09/01/24 16:59 Last Admin: 08/07/24 16:54 Dose: 200 mg Apixaban (Apixaban 5 Mg Tablet) 5 mg PO BID [facility] Stop: 09/06/24 20:59 Last Admin: 08/07/24 20:35 Dose: 5 mg Aspirin (Aspirin 81 Mg Chew) 81 mg PO DAILY [facility] Stop: 08/30/24 11:44 Last Admin: 08/07/24 08:16 Dose: 81 mg Benzonatate (Benzonatate 100 Mg Capsule) 100 mg PO TID PRN PRN Reason: Cough Stop: 09/06/24 19:57 Last Admin: 08/07/24 20:33 Dose: 100 mg Bisacodyl (Bisacodyl 10 Mg Supp) 10 mg [place] DAILY PRN PRN Reason: Constipation Stop: 09/03/24 15:40 Cyanocobalamin (Cyanocobalamin (B-12) 500 Mcg Tablet) 1,000 mcg PO DAILY [facility] Stop: 08/31/24 08:59 Last Admin: 08/07/24 08:14 Dose: 1,000 mcg Dextrose (Dextrose 50% 50 Ml Syringe) 25 - 50 ml IV UD PRN; Protocol PRN Reason: Hypoglycemia Protocol Stop: 08/30/24 11:29 Docusate Sodium (Docusate Sodium 100 Mg Cap) 100 mg PO BID [facility] Stop: 09/03/24 15:39 Last Admin: 08/07/24 20:33 Dose: 100 mg Finasteride (Finasteride 5 Mg Tab) 5 mg PO QAM [facility] Stop: 08/30/24 11:44 Last Admin: 08/07/24 08:16 Dose: 5 mg Folic Acid (Folic Acid 1 Mg Tab) 1 mg PO DAILY [facility] Stop: 08/31/24 08:59 Last Admin: 08/07/24 08:15 Dose: 1 mg Glucagon (Glucagon For Inj 1 Mg Vial) 1 mg SQ UD PRN; Protocol PRN Reason: Hypoglycemia Protocol Stop: 08/30/24 11:29 Glucose (Glucose 40% Gel 15 Gm Tube) 15 - 30 gm PO UD PRN; Protocol PRN Reason: Hypoglycemia Protocol Stop: 08/30/24 11:29 Glucose (Glucose 10 Tab/Tube) 4 - 8 tab PO UD PRN; Protocol PRN Reason: Hypoglycemia Protocol Stop: 08/30/24 11:29 Ampicillin Sodium 2,000 mg/ (Sodium Chloride) 100 mls @ 200 mls/hr IV Q4H [facility] Stop: 09/12/24 15:29 Last Infusion: 08/08/24 04:00 Dose: Infused Ceftriaxone Sodium (Rocephin) 2,000 mg in 50 mls @ 100 mls/hr IV Q12 [facility] Stop: 09/13/24 11:44 Last Infusion: 08/07/24 21:08 Dose: Infused Insulin Aspart (Insulin Aspart Per Unit Charge) 0 units SC ACHS [facility] Stop: 08/30/24 11:29 Last Admin: 08/07/24 20:33 Dose: 1 units Insulin Glargine (Lantus Per Unit Charge) 15 units SC BID [facility] Stop: 09/06/24 20:59 Last Admin: 08/07/24 20:34 Dose: 15 units Lactobacillus Acidophilus (Advanced Probiotic 625 Mg Capsule) 1,250 mg PO DAILY [facility] Stop: 08/30/24 14:14 Last Admin: 08/07/24 08:15 Dose: 1,250 mg Latanoprost (Latanoprost 0.005% Op Soln 2.5 Ml Btl) 1 drops OPB HS [facility] Stop: 08/30/24 20:59 Last Admin: 08/07/24 20:36 Dose: 1 drops Magnesium Hydroxide (Magnesium Hydroxide Susp 30 Ml Udc) 30 ml PO Q12H PRN PRN Reason: Constipation Stop: 08/30/24 11:16 Metoprolol Succinate (Metoprolol Succ 50mg Ext Rel Tab) 50 mg PO QAM [facility] Stop: 08/30/24 11:44 Last Admin: 08/07/24 08:14 Dose: 50 mg Miscellaneous (Carbohydrates For Hypoglycemia ) 15 - 30 gm PO UD PRN PRN Reason: Hypoglycemia Protocol Stop: 08/30/24 11:29 Miscellaneous Information (Pharmacy Glycemic Mgmt Consult) 1 each N/A UD PRN PRN Reason: Consult Stop: 08/30/24 11:29 Morphine Sulfate (Morphine Sulfate 4 Mg/Ml 1 Ml Carp\Vial) 2 mg IV Q4H PRN PRN Reason: Pain Stop: 08/18/24 01:45 Multivitamins (Multivitamin Tab) 1 tab PO QAM [facility] Stop: 08/31/24 08:59 Last Admin: 08/07/24 08:14 Dose: 1 tab Nitroglycerin (Nitroglycerin Sl 0.4 Mg/Tab Tab) 0.4 mg SL Q5M PRN PRN Reason: Chest Pain Stop: 09/03/24 01:33 Last Admin: 08/04/24 01:58 Dose: 0.4 mg Ondansetron HCl (Ondansetron Inj 2 Mg/Ml 2 Ml Vial) 4 mg IV Q6H PRN PRN Reason: Nausea And Vomiting Stop: 09/01/24 18:09 Last Admin: 08/02/24 18:18 Dose: 4 mg Oxycodone HCl (Oxycodone Hcl Ir 5 Mg Tab (Immediate Release)) 5 mg PO Q4H PRN PRN Reason: Pain Stop: 08/18/24 01:35 Last Admin: 08/04/24 07:28 Dose: 5 mg Pantoprazole Sodium (Pantoprazole 40 Mg Tab) 40 mg PO DAILY [facility] Stop: 08/30/24 11:44 Last Admin: 08/07/24 08:15 Dose: 40 mg Rosuvastatin Calcium (Rosuvastatin Calcium 20 Mg Tab) 40 mg PO HS [facility] Stop: 08/30/24 20:59 Last Admin: 08/07/24 20:35 Dose: 40 mg Tamsulosin HCl (Tamsulosin Hcl 0.4 Mg Cap) 0.4 mg PO HS [facility] Stop: 08/30/24 20:59 Last Admin: 08/07/24 20:36 Dose: 0.4 mg Vitamin D (Cholecalciferol 125 Mcg (5,000 Units) Tab) 125 mcg PO DAILY [facility] Stop: 08/30/24 11:44 Last Admin: 08/07/24 08:16 Dose: 125 mcg (6) Hyperlipidemia Hyperlipidemia type: unspecified Qualified Code(s): E78.5 - Hyperlipidemia, unspecified (7) CAD (coronary artery disease) Associated angina: unspecified whether angina present Coronary Disease- Associated Artery/Lesion type: unspecified vessel or lesion type [place] vs. transplanted heart: [place] heart Qualified Code(s): I25.10 - Atherosclerotic heart disease of [place] coronary artery without angina pectoris
--- NOTE | 2024-08-08 14:50 | Pharmacy Report ---
Pharmacy Glycemic Short Note 2 - Date of Service August 08, 2024 - Glycemic Short BSG Results (Last 24 hours): 08/07/24 08/07/24 08/08/24 16:26 20:03 06:49 Glucose 182 H POC Glucose 97 166 H 08/08/24 08/08/24 07:11 11:03 Glucose POC Glucose 178 H 241 H OUTPATIENT ANTIDIABETIC REGIMEN: * Metformin 1 g PO BIDM * Glimepiride 2 mg PO qAM HbA1c: 6.1% (07/05/24) ASSESSMENT: 08/08/24 * Rafael received 61 units of insulin yesterday (30 were basal) * Fasting BSG this AM acceptable, continue current basal insulin * Lunchtime BSG elevated, and lower at dinner, therefore loosen correction factor. Carbohydrate ratio tightened yesterday. * He continues on IV antibiotics, ceftriaxone and ampicillin 08/06/24 * Rafael received 48 units of insulin yesterday (24 were basal) * Fasting BSG this AM acceptable, basal insulin increased yesterday, will continue regimen at this time * No changes to NovoLog, he continues on IV ampicillin and ceftriaxone 08/05/24: * Blood sugars well-controlled yesterday, ranging 123-156 mg/dL * Received 45 units of insulin (20 units of basal and 25 units of prandial/correctional bolus) * Fasting blood sugar of 169 mg/dL this morning and trending up at lunch * Will hold off on bolus changes today since well-controlled yesterday, but will increase basal 08/03/24 * Patient received a total of 43 units of insulin yesterday (20units were basal and 23units were bolus). * BSGs remained above goal range yesterday ([phone]/dL) although they were improved from the previous day. * Fasting BSG was 177mg/dL this morning. Patient was made NPO starting after midnight last night for pacer removal this afternoon. The dose of Lantus was decreased for this morning as patient likely wont be eating until late afternoon. * Bolus insulin regimen to be continued as ordered, may need to tighten parameters once diet is restarted. 08/01/24: * Blood sugars elevated yesterday, ranging 197-227 mg/dL following consult * Received 32 units of insulin (15 units of basal and 17 units of prandial/correctional bolus) * NPO today for ADOLFO to assess for prosthetic valve IE - currently on broad spectrum antimicrobial regimen (vanco, gentamicin, and cefepime) * Currently receiving amiodarone gtt (mixed in dextrose) 07/31/24: * RB is a 69 year old male admitted for sepsis secondary to currently unidentified source (concern for prosthetic valve infective endocarditis) * Blood sugar on presentation is 236 mg/dL, pharmacy consulted for glycemic management * Will give conservative Lantus dose for now and weight-based stress of 2 Novolog * Patient was hyperglycemic during last several inpatient stays here without basal insulin * Diet ordered PLAN FOR INPATIENT GLYCEMIC CONTROL: * Hold outpatient oral diabetes medications * Basal insulin * Lantus 15 units SC BID * Bolus insulin * NovoLog per scale ACHS or Q6hrs while NPO * Goal Range: Low 120 mg/dL - High 150 mg/dL * Correction Factor: 25 mg/dL/unit * Nutritional / Prandial insulin per carb ratio of 1 unit per 6 grams CHO consumed
--- NOTE | 2024-08-08 16:39 | Cardiology Progress Note ---
Date of Service August 08, 2024 Assessment & Plan (1) Endocarditis: (2) Enterococcal bacteremia: (3) S/P ICD (internal cardiac defibrillator) procedure: (4) History of sustained ventricular tachycardia: (5) History of transcatheter aortic valve replacement (TAVR): (6) Atrial flutter: Plan: * Continue ampicillin and Rocephin for now with hopes to hear of the spectrum of antibiotics. * Continue furosemide, 40 mg today and daily. * Continue metoprolol and amiodarone. * Eliquis added, hemoglobin has been stable. * Wearable defibrillator fitted, delivered Admission and Anticipated Discharge Date Admission Date: July 31, 2024 Subjective Patient describes having nasal and throat congestion he feels like he has a cold. A viral respiratory panel was obtained yesterday which was negative. Telemetry reveals rate controlled atrial flutter in the 50s to 60s at rest. This has persisted since approximately 6 AM on 08/07/2024. Physical Exam Physical Exam: Temp Pulse Resp BP Pulse Ox O2 Del Method O2 Flow Rate 36.8 C 54 L 18 144/74 H 95 Room Air 2 08/08/24 15:23 08/08/24 15:23 08/08/24 15:23 08/08/24 15:23 08/08/24 15:23 08/08/24 15:23 08/08/24 03:45 FiO2 21 08/04/24 04:00 Constitutional: WD/WN, vitals as above well developed, well nourished, + ill appearing and + obese; no acute distress Neck: trachea midline, no thyromegaly normal visual inspection, trachea midline and + thick neck Respiratory: normal respiratory effort, lungs clear to auscultation normal respiratory effort; no respiratory distress, no labored breathing, no cough and not tachypneic Auscultation: lungs clear to auscultation bilaterally and + diminished lung sounds; no crackles, no rales, no rhonchi and no wheezes Cardiovascular: RRR, no murmur, no edema Rate/Rhythm: regular rate and regular rhythm Heart Sounds: normal S1, normal S2 and + murmur (+1/6 systolic ) Vessels: dorsalis pedis pulses present; no JVD Extremities: + edema (+1 BLE) Gastrointestinal (Abdomen): normal bowel sounds, soft, nontender, no hepatosplenomegaly Skin: no rashes, warm and dry Neurologic: PERRL, EOMI, accommodation nl, no face palsy, no dysarthria Psychiatric: A+Ox3, euthymic affect Results & Data Vital Signs (Past 12 Hours) Vital Signs Temp Pulse Pulse Resp BP Pulse Ox O2 Del Method 08/08/24 15:23 36.8 C 54 L 18 144/74 H 95 Room Air 08/08/24 14:13 57 L 08/08/24 10:40 36.4 C L 59 L 19 130/72 94 Room Air 08/08/24 10:02 57 L 08/08/24 07:14 36.5 C 56 L 17 123/74 93 Room Air (1) Endocarditis Endocarditis type: infective Infective endocarditis organism: bacterial Chronicity: acute Qualified Code(s): I33.0 - Acute and subacute infective endocarditis
[2024-08-08] MEDS: FUROSEMIDE 40 MG/4 ML VIAL IV ONE (16:56)
[2024-08-08] MEDS: SODIUM CHLORIDE 0.65% NA SOLN 45 ML (OCEAN) SCH (20:34)
[2024-08-08] MEDS: guaiFENesin 600 MG TABCR PO SCH (20:34)
[2024-08-09 07:40] LABS: Hematocrit (blood only) 31.6 % (42.0-52.0); Hemoglobin 9.3 g/dl (14.0-18.0); Mean Corpuscular Hemoglobin 24.3 pg (25.0-34.0); Mean Corpuscular Hgb Conc 29.4 g/dL (32.0-36.0); Mean Corpuscular Volume 82.5 fL (80.0-100.0); Mean Platelet Volume 10.7 fL (9.4-12.4); Platelet Count 274 K/uL (130-400); RDW Coefficient of Variation 23.3 % (11.5-14.5); RDW Standard Deviation 67.7 fL (36.4-46.3); Red Blood Count 3.83 M/uL (4.70-6.10); White Blood Count 9.64 K/ul (4.8-10.8)
[2024-08-09 07:52] LABS: Calcium 9.1 mg/dl (8.6-10.3); Creatinine Clr Calc Pharmacy 71.4 ml/min; Magnesium 2.3 mg/dl (1.7-2.4); Phosphorus 3.5 mg/dl (2.5-4.9); Potassium 3.9 mmol/L (3.5-5.1)
--- NOTE | 2024-08-09 08:13 | Hospitalist Progress Note ---
Date of Service August 09, 2024 Assessment & Plan (1) Severe sepsis: Plan: Rafael Cantu is a 69y/o M with PMHx significant for severe aortic stenosis s/p TAVR on 06/19/24, chronic LBBB, Mobitz type 2 second degree AV block s/p pacemaker placement on 07/02/24 with postoperative course complicated by episodes of sustained ventricular tachycardia requiring upgrade to an ICD on 07/04/24, HTN, HLD, mild nonobstructive CAD, DMII with diabetic nephropathy, REMBERTO on CPAP, pulmonary emphysema, longstanding iron deficiency anemia, BPH with LUTS, benign paroxysmal vertigo, glaucoma of both eyes, depression, GERD and generalized osteoarthritis who presented to the ED via EMS with complaints of fever, chills and generalized weakness. Patient with recent invasive cardiac procedures including TAVR on 06/19/24 for severe and pacemaker placement on 07/02/24 with postoperative course complicated by episodes of sustained ventricular tachycardia requiring upgrade to an ICD on 07/04/24. 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 EF 55 to 60%. Moderate concentric LVH. TAVR bioprosthesis is present. No significant bioprosthetic aortic valve regurgitation. Gradient is normal for prosthetic arctic valve. Moderate mitral annular calcification. Mild tricuspid regurgitation. Estimated systolic blood pressure 43 mmHg. No evidence of vegetation within the limitations of imaging modality. --S/P ADOLFO: Mobile echodensity) to the ICD lead as it transverses through the right atrium. Imaging consistent with vegetation or thrombus. Left atrium is moderately dilated. No thrombus detected in the left atrial appendage. Lactic acidosis resolved with IV fluids --S/P ICD extraction by on 08/04/24 Continue antibiotics: vancomycin, cefepime, gentamicin>> transitioned to Rocephin, ampicillin Appreciate cardiology, infectious disease input Would likely need 6 weeks of antibiotic course from first negative blood cultures. Confirmed with infectious disease on 08/06/2024 Needs PICC line prior to discharge - consent obtained this AM (08/09/2024), likely will place tmrw Monitor volume status, cont. 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 Patient has been receiving IV Venofer as outpatient Currently no signs of bleeding Anemia workup reviewed Needs follow-up with hematology on discharge Received IV Venofer Leukopenia, thrombocytopenia resolved Hemoglobin 9.3 today Monitor CBC No bleeding issues currently Atrial flutter with rapid ventricular response--POA ICD interrogation Currently no ICD as above IV amiodarone discontinued Continue amiodarone, metoprolol Given stable hemoglobin, thrombocytopenia resolved-- started anticoagulation with Eliquis, per cardiology Appreciate cardiology input atrial flutter yesterday Right cephalic vein thrombosis Likely due to IV line placement IV line removed previous hospitalist discussed with on 08/03/2024: Recommends to avoid any systemic anticoagulation Conservative management for now If clinically worsens, we will repeat Doppler to reassess clot burden Clinically improving Cardiology started patient on Eliquis as above Back pain likely due to dextroscoliosis, spondylolisthesis --Lumbar spine x-ray: Moderately severe dextroscoliosis. Severe degenerative spondylosis with probable elements of spinal stenosis through the mid and lower lumbar spine. Spondylolysis with grade 1 spondylolisthesis of L5 on S1. -- Sacrum/coccygeal x-ray:Spondylolysis with grade 1 spondylolisthesis of L5-S1. Otherwise negative for acute bony abnormality. --MRI Lumbar Spine:Degenerative changes. -- Minimize IV narcotics as able has tendency to develop constipation Bowel regimen as needed Appreciate orthopedics input: Conservative management for now PT OT: Recommends to return home (2) Elevated troponin: Plan: Likely demand ischemia secondary to sepsis, atrial flutter RVR (3) History of transcatheter aortic valve replacement (TAVR): Plan: Severe s/p TAVR performed on 06/19/24 at [facility]. Follows with [facility] as an outpatient. (4) Hyponatremia: Plan: Resolved with IV fluids Monitor sodium levels (5) Thrombocytopenia: Plan: Likely secondary to sepsis Currently no acute bleeding issues Resolved Monitor (6) Hyperlipidemia: Plan: Continue statin (7) CAD (coronary artery disease): Plan: Continue aspirin, metoprolol, statin (8) History of sustained ventricular tachycardia: (9) S/P ICD (internal cardiac defibrillator) procedure: Plan: Mobitz type 2 second degree AV block s/p pacemaker placement on 07/02/24 with postoperative course complicated by episodes of sustained ventricular tachycardia requiring upgrade to an ICD on 07/04/24. Other Chronic Medical Conditions: REMBERTO - Continue CPAP HS. HTN -continue current medications, monitor blood pressure DVT Px SQ Heparin -> eliquis Code Status: DNR/DNI Disposition: Home as able Admission and Anticipated Discharge Date Admission Date: July 31, 2024 Subjective Pt seen in follow up bacteremia ICD removed 08/03 ID consult note on 08/02 cardiology following closely Patient went into atrial flutter with RVR day before yesterday Overall feels well but tired, reports rhinorrhea Discussed with cardiology yesterday - will cont. to diurese, also on eliquis Pt denies any chest pain, dyspnea, nausea, vomiting, abdominal pain Upper extremity edema, erythema continues to improve plan for picc line placement likely tmrw - consent obtained this AM Review of Systems Review of Systems: All systems reviewed & are unremarkable except as noted in Subjective Physical Exam Physical Exam: General Appearance:Obese, no apparent distress Head: normocephalic, Atraumatic Eyes: normal inspection, EOMI Neck: supple Respiratory/Chest: Decreased breath sounds, CTA, No accessory muscle use Cardiovascular: regular, no murmur Abdomen/GI:Soft, Non tender, Bowel sounds present Extremities/Musculoskeletal:normal inspection, + edema, right upper extremity swelling, erythema, tender much improved now Neurologic/Psych:AAOX3, grossly no focal neurological deficits Skin: normal color, warm Results & Data Results & Data Vital Signs (Past 12 Hours) Vital Signs Temp Pulse Pulse Resp BP Pulse Ox O2 Del Method 08/09/24 07:22 36.7 C 86 18 115/68 96 Room Air 08/09/24 07:08 77 08/09/24 03:43 55 L 20 94 08/09/24 03:05 36.7 C 86 18 104/61 96 CPAP 08/08/24 23:30 57 L 22 96 08/08/24 23:12 55 L 08/08/24 23:09 36.5 C 71 20 132/70 97 Nasal Cannula O2 Flow Rate 08/09/24 07:22 08/09/24 07:08 08/09/24 03:43 3 08/09/24 03:05 08/08/24 23:30 3 08/08/24 23:12 08/08/24 23:09 Laboratory Results 08/09/24 08/09/24 08/08/24 Range/Units 07:18 06:50 19:59 WBC 9.64 (4.8-10.8) K/ul RBC 3.83 L (4.70-6.10) M/uL Hgb 9.3 L (14.0-18.0) g/dl Hct 31.6 L (42.0-52.0) % MCV 82.5 (80.0-100.0) fL MCH 24.3 L (25.0-34.0) pg MCHC 29.4 L (32.0-36.0) g/dL RDW Std Deviation 67.7 H (36.4-46.3) fL RDW Coeff of Freddie 23.3 H (11.5-14.5) % Plt Count 274 (130-400) K/uL MPV 10.7 (9.4-12.4) fL Sodium 136 (136-145) mmol/L Potassium 3.9 (3.5-5.1) mmol/L Chloride 101 (98-107) mmol/L Carbon Dioxide 29 (21-32) mmol/L Anion Gap 6 (3-11) BUN 17 (6-23) mg/dl Creatinine 1.13 (0.6-1.4) mg/dl Est Cr Clr Drug Dosing 71.4 ml/min eGFR 69.49 BUN/Creatinine Ratio 15.0 (10-20) Glucose 172 H (70-99(Fasting)) mg/dl POC Glucose 152 H 195 H (70-99) mg/dl Calcium 9.1 (8.6-10.3) mg/dl Phosphorus 3.5 (2.5-4.9) mg/dl Magnesium 2.3 (1.7-2.4) mg/dl 08/08/24 08/08/24 Range/Units 16:02 11:03 WBC (4.8-10.8) K/ul RBC (4.70-6.10) M/uL Hgb (14.0-18.0) g/dl Hct (42.0-52.0) % MCV (80.0-100.0) fL MCH (25.0-34.0) pg MCHC (32.0-36.0) g/dL RDW Std Deviation (36.4-46.3) fL RDW Coeff of Freddie (11.5-14.5) % Plt Count (130-400) K/uL MPV (9.4-12.4) fL Sodium (136-145) mmol/L Potassium (3.5-5.1) mmol/L Chloride (98-107) mmol/L Carbon Dioxide (21-32) mmol/L Anion Gap (3-11) BUN (6-23) mg/dl Creatinine (0.6-1.4) mg/dl Est Cr Clr Drug Dosing ml/min eGFR BUN/Creatinine Ratio (10-20) Glucose (70-99(Fasting)) mg/dl POC Glucose 128 H 241 H (70-99) mg/dl Calcium (8.6-10.3) mg/dl Phosphorus (2.5-4.9) mg/dl Magnesium (1.7-2.4) mg/dl Medications Administered Current Inpatient Medications Acetaminophen (Acetaminophen 500 Mg Tab) 1,000 mg PO Q8H PRN PRN Reason: Pain Stop: 08/30/24 11:16 Last Admin: 08/09/24 07:37 Dose: 1,000 mg Amiodarone HCl (Amiodarone 200 Mg Tab) 200 mg PO BIDM DANYEL Stop: 09/01/24 16:59 Last Admin: 08/09/24 07:38 Dose: 200 mg Apixaban (Apixaban 5 Mg Tablet) 5 mg PO BID DANYEL Stop: 09/06/24 20:59 Last Admin: 08/08/24 20:10 Dose: 5 mg Aspirin (Aspirin 81 Mg Chew) 81 mg PO DAILY DANYEL Stop: 08/30/24 11:44 Last Admin: 08/08/24 09:03 Dose: 81 mg Benzonatate (Benzonatate 100 Mg Capsule) 100 mg PO TID PRN PRN Reason: Cough Stop: 09/06/24 19:57 Last Admin: 08/08/24 15:57 Dose: 100 mg Bisacodyl (Bisacodyl 10 Mg Supp) 10 mg GA DAILY PRN PRN Reason: Constipation Stop: 09/03/24 15:40 Cyanocobalamin (Cyanocobalamin (B-12) 500 Mcg Tablet) 1,000 mcg PO DAILY DANYEL Stop: 08/31/24 08:59 Last Admin: 08/08/24 09:06 Dose: 1,000 mcg Dextrose (Dextrose 50% 50 Ml Syringe) 25 - 50 ml IV UD PRN; Protocol PRN Reason: Hypoglycemia Protocol Stop: 08/30/24 11:29 Docusate Sodium (Docusate Sodium 100 Mg Cap) 100 mg PO BID DANYEL Stop: 09/03/24 15:39 Last Admin: 08/08/24 20:09 Dose: 100 mg Finasteride (Finasteride 5 Mg Tab) 5 mg PO QAM DANYEL Stop: 08/30/24 11:44 Last Admin: 08/08/24 09:04 Dose: 5 mg Folic Acid (Folic Acid 1 Mg Tab) 1 mg PO DAILY DANYEL Stop: 08/31/24 08:59 Last Admin: 08/08/24 09:07 Dose: 1 mg Furosemide (Furosemide 40 Mg/4 Ml Vial) 40 mg IV DAILY DANYEL Stop: 09/08/24 08:59 Glucagon (Glucagon For Inj 1 Mg Vial) 1 mg SQ UD PRN; Protocol PRN Reason: Hypoglycemia Protocol Stop: 08/30/24 11:29 Glucose (Glucose 40% Gel 15 Gm Tube) 15 - 30 gm PO UD PRN; Protocol PRN Reason: Hypoglycemia Protocol Stop: 08/30/24 11:29 Glucose (Glucose 10 Tab/Tube) 4 - 8 tab PO UD PRN; Protocol PRN Reason: Hypoglycemia Protocol Stop: 08/30/24 11:29 Guaifenesin (Guaifenesin 600 Mg Tabcr) 600 mg PO Q12 DANYEL Stop: 09/07/24 20:59 Last Admin: 08/08/24 20:34 Dose: 600 mg Ampicillin Sodium 2,000 mg/ (Sodium Chloride) 100 mls @ 200 mls/hr IV Q4H DANYEL Stop: 09/12/24 15:29 Last Admin: 08/09/24 07:39 Dose: 200 mls/hr Ceftriaxone Sodium (Rocephin) 2,000 mg in 50 mls @ 100 mls/hr IV Q12 DANYEL Stop: 09/13/24 11:44 Last Infusion: 08/08/24 20:38 Dose: Infused Insulin Aspart (Insulin Aspart Per Unit Charge) 0 units SC ACHS DANYEL Stop: 08/30/24 11:29 Last Admin: 08/09/24 07:53 Dose: 8 units Insulin Glargine (Lantus Per Unit Charge) 15 units SC BID DANYEL Stop: 09/06/24 20:59 Last Admin: 08/08/24 20:18 Dose: 15 units Lactobacillus Acidophilus (Advanced Probiotic 625 Mg Capsule) 1,250 mg PO DAILY DANYEL Stop: 08/30/24 14:14 Last Admin: 08/08/24 09:04 Dose: 1,250 mg Latanoprost (Latanoprost 0.005% Op Soln 2.5 Ml Btl) 1 drops OPB HS DANYEL Stop: 08/30/24 20:59 Last Admin: 08/08/24 20:09 Dose: 1 drops Magnesium Hydroxide (Magnesium Hydroxide Susp 30 Ml Udc) 30 ml PO Q12H PRN PRN Reason: Constipation Stop: 08/30/24 11:16 Metoprolol Succinate (Metoprolol Succ 50mg Ext Rel Tab) 50 mg PO QAM [facility] Stop: 08/30/24 11:44 Last Admin: 08/08/24 09:07 Dose: 50 mg Miscellaneous (Carbohydrates For Hypoglycemia ) 15 - 30 gm PO UD PRN PRN Reason: Hypoglycemia Protocol Stop: 08/30/24 11:29 Miscellaneous Information (Pharmacy Glycemic Mgmt Consult) 1 each N/A UD PRN PRN Reason: Consult Stop: 08/30/24 11:29 Morphine Sulfate (Morphine Sulfate 4 Mg/Ml 1 Ml Carp\Vial) 2 mg IV Q4H PRN PRN Reason: Pain Stop: 08/18/24 01:45 Multivitamins (Multivitamin Tab) 1 tab PO QAM [facility] Stop: 08/31/24 08:59 Last Admin: 08/08/24 09:07 Dose: 1 tab Nitroglycerin (Nitroglycerin Sl 0.4 Mg/Tab Tab) 0.4 mg SL Q5M PRN PRN Reason: Chest Pain Stop: 09/03/24 01:33 Last Admin: 08/04/24 01:58 Dose: 0.4 mg Ondansetron HCl (Ondansetron Inj 2 Mg/Ml 2 Ml Vial) 4 mg IV Q6H PRN PRN Reason: Nausea And Vomiting Stop: 09/01/24 18:09 Last Admin: 08/02/24 18:18 Dose: 4 mg Oxycodone HCl (Oxycodone Hcl Ir 5 Mg Tab (Immediate Release)) 5 mg PO Q4H PRN PRN Reason: Pain Stop: 08/18/24 01:35 Last Admin: 08/04/24 07:28 Dose: 5 mg Pantoprazole Sodium (Pantoprazole 40 Mg Tab) 40 mg PO DAILY DANYEL Stop: 08/30/24 11:44 Last Admin: 08/08/24 09:06 Dose: 40 mg Rosuvastatin Calcium (Rosuvastatin Calcium 20 Mg Tab) 40 mg PO HS DANYEL Stop: 08/30/24 20:59 Last Admin: 08/08/24 20:09 Dose: 40 mg Sodium Chloride (Sodium Chloride 0.65% Na Soln 45 Ml ([place])) 1 sprays NA TID DANYEL Stop: 09/07/24 20:59 Last Admin: 08/08/24 20:34 Dose: 1 sprays Tamsulosin HCl (Tamsulosin Hcl 0.4 Mg Cap) 0.4 mg PO HS DANYEL Stop: 08/30/24 20:59 Last Admin: 08/08/24 20:09 Dose: 0.4 mg Vitamin D (Cholecalciferol 125 Mcg (5,000 Units) Tab) 125 mcg PO DAILY DANYEL Stop: 08/30/24 11:44 Last Admin: 08/08/24 09:06 Dose: 125 mcg (6) Hyperlipidemia Hyperlipidemia type: unspecified Qualified Code(s): E78.5 - Hyperlipidemia, unspecified (7) CAD (coronary artery disease) Associated angina: unspecified whether angina present Coronary Disease- Associated Artery/Lesion type: unspecified vessel or lesion type [place] vs. transplanted heart: [place] heart Qualified Code(s): I25.10 - Atherosclerotic heart disease of [place] coronary artery without angina pectoris
--- NOTE | 2024-08-09 08:45 | Cardiology Progress Note ---
Date of Service August 09, 2024 Assessment & Plan (1) Endocarditis: (2) Enterococcal bacteremia: (3) S/P ICD (internal cardiac defibrillator) procedure: (4) History of sustained ventricular tachycardia: (5) History of transcatheter aortic valve replacement (TAVR): (6) Atrial flutter: Plan: 08/08/2024 * Continue ampicillin and Rocephin for now with hopes to hear of the spectrum of antibiotics. * Continue furosemide, 40 mg today and daily. * Continue metoprolol and amiodarone. * Eliquis added, hemoglobin has been stable. * Wearable defibrillator fitted, delivered 08/09/2024: * patient is stable from a cardiac perspective. he shows some improvement in his volume status. Agree with continuing Furosemide 40mg IV daily. Closely monitor renal function and serum electrolytes. * Daily weights on standing scale. Strict I&O. -4kg weight deficit per Nursing notes. * Goal serum K > 4.0 and serum Mag > 2.0 * continues with A-fib/flutter on telemetry, asymptomatic. Continue Amiodarone and metoprolol. No profound lows or highs on telemetry. * Assure wearable defibrillator has been fitted and remains at bedside. Ready for when patient is appropriate for discharge. Concern is ensuring that any rehab facility he is discharged to is aware and accepts him with this device. May just need education gap filled. * Continue Eliquis 5mg PO BID. No bleeding concerns. HgB remains stable. * assess fluid status in the AM * ID to determine antibiotic plan for when patient is discharged, continued management per primary team. Case has been discussed with Dr. Allen. Further recommendations regarding plan of care as per his assessment. I spent a total of 30 minutes on the date of service in preparation, delivery, documentation of the care provided to the patient excluding any time spent in the performance of separately billed services. CYNDI Crabtree [facility] Admission and Anticipated Discharge Date Admission Date: July 31, 2024 Supervising Physician Co-Signing Physician Notes Attending attestation: Case reviewed with the advanced practitioner. I have personally performed a history and physical examination on the patient. I have reviewed the advanced practitioner's documentation on the date of service referenced in note, and I agree with, and take responsibility for the plan of care. Continue ampicillin/Rocephin. Continue IV furosemide Barriers to discharge include ongoing volume overload, and need to clarify antibiotic plan and appropriate location for rehab/administration. Wearable defibrillator has been delivered and fitted. I spent a total of 20 minutes coordinating, documenting, and providing care for this patient excluding time spent in the performance of separately billed services or time spent by another provider. Conor Allen DO Subjective 08/09/2024: Patient seen and examined in follow up today. Feeling fair. He states that "I feel like I picked up a head cold" Endorses some nasal congestion/post nasal gtt. Remains Afebrile. No chest pain, pressure or palpitations. Denies any shortness of breath, PND, pre-syncope. syncope. Labs, vitals, diagnostics, telemetry and documentation reviewed. Telemetry reviewed showing A-flutter/fib rates 60-90's. No acute events overnight. Review of Systems Review of Systems: All systems reviewed & are unremarkable except as noted in HPI & below Physical Exam Physical Exam: Temp Pulse Resp BP Pulse Ox O2 Del Method O2 Flow Rate 36.8 C 54 L 18 144/74 H 95 Room Air 2 08/08/24 15:23 08/08/24 15:23 08/08/24 15:23 08/08/24 15:23 08/08/24 15:23 08/08/24 15:23 08/08/24 03:45 FiO2 21 08/04/24 04:00 Constitutional: WD/WN, vitals as above well developed and well nourished; no acute distress Neck: trachea midline, no thyromegaly normal visual inspection and trachea midline Respiratory: normal respiratory effort, lungs clear to auscultation normal respiratory effort; no respiratory distress and no labored breathing Auscultation: lungs clear to auscultation bilaterally; no crackles, no rales and no rhonchi Cardiovascular: RRR, no murmur, no edema Rate/Rhythm: + irregularly irregular Heart Sounds: normal S1, normal S2 and + murmur (+1/6 systolic) Vessels: dorsalis pedis pulses present; no JVD Extremities: + edema (trace to +1 BLE) Gastrointestinal (Abdomen): normal bowel sounds, soft, nontender, no hepatosplenomegaly Skin: no rashes, warm and dry normal turgor; no rashes optifoam DSG in place over left chest wall c/d/i Neurologic: PERRL, EOMI, accommodation nl, no face palsy, no dysarthria Psychiatric: A+Ox3, euthymic affect Results & Data Vital Signs (Past 12 Hours) Vital Signs Temp Pulse Pulse Resp BP Pulse Ox O2 Del Method 08/09/24 07:22 36.7 C 86 18 115/68 96 Room Air 08/09/24 07:08 77 08/09/24 03:43 55 L 20 94 08/09/24 03:05 36.7 C 86 18 104/61 96 CPAP 08/08/24 23:30 57 L 22 96 08/08/24 23:12 55 L 08/08/24 23:09 36.5 C 71 20 132/70 97 Nasal Cannula O2 Flow Rate 08/09/24 07:22 08/09/24 07:08 08/09/24 03:43 3 08/09/24 03:05 08/08/24 23:30 3 08/08/24 23:12 08/08/24 23:09 Laboratory Results CBC 08/09/24 Range/Units 06:50 WBC 9.64 (4.8-10.8) K/ul RBC 3.83 L (4.70-6.10) M/uL Hgb 9.3 L (14.0-18.0) g/dl Hct 31.6 L (42.0-52.0) % Plt Count 274 (130-400) K/uL Comprehensive Metabolic Panel 08/09/24 Range/Units 06:50 Sodium 136 (136-145) mmol/L Potassium 3.9 (3.5-5.1) mmol/L Chloride 101 (98-107) mmol/L Carbon Dioxide 29 (21-32) mmol/L BUN 17 (6-23) mg/dl Creatinine 1.13 (0.6-1.4) mg/dl Glucose 172 H (70-99(Fasting)) mg/dl Calcium 9.1 (8.6-10.3) mg/dl Intake and Output 08/08/24 08/09/24 08/09/24 22:59 06:59 14:59 Intake Total 450 / 1460 400 / 1460 100 / 100 Output Total 350 / 350 Balance 450 / 1110 50 / 1110 100 / 100 Intake: IV 250 / 700 200 / 700 100 / 100 Ampicillin 2,000 mg In Sodium 200 / 600 200 / 600 100 / 100 Chlor 0.9% Mini-B 100 ml @ 200 mls/hr IV Q4H [facility] Rx#:[id number] cefTRIAXone SODIUM 2,000 mg In 50 / 100 50 ml @ 100 mls/hr IV Q12 [facility] Rx#:[id number] Oral 200 / 760 200 / 760 Output: Urine 350 / 350 Other: Weight 104.4 kg Weight Measurement Method Built in [facility] (1) Endocarditis Chronicity: acute Endocarditis type: infective Infective endocarditis organism: bacterial Qualified Code(s): I33.0 - Acute and subacute infective endocarditis
[2024-08-09] MEDS: FUROSEMIDE 40 MG/4 ML VIAL IV SCH (09:03)
[2024-08-09] MEDS: COUGH DROP (SUGAR FREE) LOZ 24 LOZ/1 BOX BUCCAL STA (09:43)
[2024-08-09] MEDS: COUGH DROP (SUGAR FREE) LOZ 24 LOZ/1 BOX BUCCAL PRN (13:31)
--- NOTE | 2024-08-09 14:57 | XRay Report ---
XR chest 1V portable CLINICAL HISTORY: Check PICC line placement COMPARISON STUDY: 08/07/2024 FINDINGS: Right PICC line tip is at the cavoatrial junction. No consolidation, pleural effusion, or p neumothorax. Stable mild cardiomegaly without pulmonary vascular congestion. IMPRESSION: Well-positioned right PICC. No acute findings. ACT 112: Negative or not required by law. Electronically signed by: Raza Velazquez M.D. 08/09/2024 2:56 PM
[2024-08-10 07:34] LABS: Hematocrit (blood only) 30.8 % (42.0-52.0); Hemoglobin 9.1 g/dl (14.0-18.0); Mean Corpuscular Hemoglobin 24.5 pg (25.0-34.0); Mean Corpuscular Hgb Conc 29.5 g/dL (32.0-36.0); Mean Platelet Volume 10.7 fL (9.4-12.4); Platelet Count 256 K/uL (130-400); RDW Coefficient of Variation 23.4 % (11.5-14.5); RDW Standard Deviation 69.2 fL (36.4-46.3); Red Blood Count 3.71 M/uL (4.70-6.10); White Blood Count 8.72 K/ul (4.8-10.8)
[2024-08-10 08:01] LABS: Albumin Globulin Ratio 1.2 (0.9-2); Albumin Level 3.8 gm/dl (3.4-5.0); BUN Creatinine Ratio 17.5 (10-20); Bilirubin,Total 0.5 mg/dl (0.2-1.0); Calcium 9.2 mg/dl (8.6-10.3); Creatinine Clr Calc Pharmacy 70.7 ml/min; Globulin 3.3 gm/dl (2.5-4.0); Magnesium 2.4 mg/dl (1.7-2.4); Phosphorus 3.7 mg/dl (2.5-4.9); Total Protein 7.1 gm/dl (6.0-8.3)
--- NOTE | 2024-08-10 08:17 | Cardiology Progress Note ---
Date of Service August 10, 2024 Assessment & Plan (1) Endocarditis: (2) Enterococcal bacteremia: (3) S/P ICD (internal cardiac defibrillator) procedure: Plan: -Extracted 08/03/2024 (4) History of sustained ventricular tachycardia: (5) History of transcatheter aortic valve replacement (TAVR): (6) Atrial flutter: Plan: 08/08/2024 * Continue ampicillin and Rocephin for now with hopes to hear of the spectrum of antibiotics. * Continue furosemide, 40 mg today and daily. * Continue metoprolol and amiodarone. * Eliquis added, hemoglobin has been stable. * Wearable defibrillator fitted, delivered 08/09/2024: * patient is stable from a cardiac perspective. he shows some improvement in his volume status. Agree with continuing Furosemide 40mg IV daily. Closely monitor renal function and serum electrolytes. * Daily weights on standing scale. Strict I&O. -4kg weight deficit per Nursing notes. * Goal serum K > 4.0 and serum Mag > 2.0 * continues with A-fib/flutter on telemetry, asymptomatic. Continue Amiodarone and metoprolol. No profound lows or highs on telemetry. * Assure wearable defibrillator has been fitted and remains at bedside. Ready for when patient is appropriate for discharge. Concern is ensuring that any rehab facility he is discharged to is aware and accepts him with this device. May just need education gap filled. * Continue Eliquis 5mg PO BID. No bleeding concerns. HgB remains stable. * assess fluid status in the AM * ID to determine antibiotic plan for when patient is discharged, continued management per primary team. 08/10/2024: -Patient continues to demonstrate clinical improvement, but remains with volume overload on exam. -Give a one time additional dose of Furosemide 40mg IV today. Starting tomorrow transition to Torsemide 40mg PO daily. Strict I&O, daily weights with a standing scale. -Close monitoring of renal function and serum electrolytes. Goal serum K > 4.0 and Serum mag > 2.0 -Assure wearable defibrillator has been fitted and remains at bedside. Ready for when patient is appropriate for discharge. Concern is ensuring that any rehab facility he is discharged to is aware and accepts him with this device. May just need education gap filled. -Continue Eliquis 5mg PO BID. No bleeding concerns. HgB remains stable. -assess fluid status in the AM -Reviewed patient's record and Infectious disease plan of care is outlined below. May see Communication report dated 08/02/[address] Parada: Date of Service: August 02, 2024 Enterococcus faecalis bacteremia, ampicillin sensitive, mobile echodensities identified on ICD lead via ADOLFO. Agree with removal, luckily his blood cultures have become negative, reasonable to deescalate to ampicillin and ceftriaxone and if patient continues expectedly With consistently cleared blood cultures he can continue these antibiotics for a total of 6 weeks from the date of lead removal. - discontinue vancomycin - ceftriaxone 2 g IV q.12 hours - ampicillin 2 g IV q.4 hours or 12 g every 24 hours continuous infusion To complete total of 6 weeks from 08/0309/13/2024 ( based on removal date) - CBC with differential, CMP q.week while on antibiotics - reasonable to replace new device after at least 72 hours as long as patient remains stable - patient will need follow-up in [facility] within 4-6 weeks Case has been discussed with Dr. Allen. Further recommendations regarding plan of care as per his assessment. I spent a total of 30 minutes on the date of service in preparation, delivery, documentation of the care provided to the patient excluding any time spent in the performance of separately billed services. CYNDI Crabtree [facility] Admission and Anticipated Discharge Date Admission Date: July 31, 2024 Supervising Physician Co-Signing Physician Notes Attending attestation: Case reviewed with the advanced practitioner. I have personally performed a history and physical examination on the patient. I have reviewed the advanced practitioner's documentation on the date of service referenced in note, and I agree with, and take responsibility for the plan of care. Anticipate ongoing diuretic requirement while on IV ampicillin and Rocephin. I spent a total of 20 minutes coordinating, documenting, and providing care for this patient excluding time spent in the performance of separately billed servic es or time spent by another provider. Conor Allen, Subjective 08/10/2024: Patient seen and examined in follow up today. Feeling fair. Continues with lower extremity swelling, but offers no chest pain, pressure, palpitations, no shortness of breath, PND, pre-syncope or syncope Labs, vitals, diagnostics, telemetry and documentation reviewed. Telemetry reviewed showing Atrial flutter rats 60's. No acute events overnight. H/H stable Renal function stable -4kg weight deficit Review of Systems Review of Systems: All systems reviewed & are unremarkable except as noted in HPI & below Physical Exam Constitutional: well developed and well nourished; no acute distress Neck: normal visual inspection and trachea midline Respiratory: normal respiratory effort; no respiratory distress and no labored breathing Auscultation: lungs clear to auscultation bilaterally and + wheezes (scattered exp. wheezes in bilateral upper and right middle lobe ); no crackles, no rales and no rhonchi Cardiovascular: Rate/Rhythm: + irregularly irregular Heart Sounds: normal S1, normal S2 and + murmur (+1/6 systolic) Vessels: dorsalis pedis pulses present; no JVD Extremities: + edema (trace to +1 BLE) Skin: normal turgor; no rashes Psychiatric: A+Ox3, euthymic affect Results & Data Vital Signs (Past 12 Hours) Vital Signs Temp Pulse Pulse Resp BP Pulse Ox O2 Del Method 08/10/24 08:08 69 08/10/24 07:27 57 L 08/10/24 07:10 36.8 C 57 L 19 128/68 95 Room Air 08/10/24 02:55 36.3 C L 61 18 135/68 96 Room Air 08/09/24 23:14 59 L 17 96 08/09/24 22:56 56 L 08/09/24 22:00 36.4 C L 56 L 18 111/63 96 Room Air O2 Flow Rate 08/10/24 08:08 08/10/24 07:27 08/10/24 07:10 08/10/24 02:55 08/09/24 23:14 2 08/09/24 22:56 08/09/24 22:00 Laboratory Results Cardiac Enzymes 08/10/24 Range/Units 06:36 AST 21 (13-39) U/L CBC 08/10/24 Range/Units 06:36 WBC 8.72 (4.8-10.8) K/ul RBC 3.71 L (4.70-6.10) M/uL Hgb 9.1 L (14.0-18.0) g/dl Hct 30.8 L (42.0-52.0) % Plt Count 256 (130-400) K/uL Comprehensive Metabolic Panel 08/10/24 Range/Units 06:36 Sodium 137 (136-145) mmol/L Potassium 4.0 (3.5-5.1) mmol/L Chloride 102 (98-107) mmol/L Carbon Dioxide 29 (21-32) mmol/L BUN 20 (6-23) mg/dl Creatinine 1.14 (0.6-1.4) mg/dl Glucose 159 H (70-99(Fasting)) mg/dl Calcium 9.2 (8.6-10.3) mg/dl AST 21 (13-39) U/L ALT 24 (7-52) U/L Alkaline Phosphatase 92 (34-104) U/L Total Protein 7.1 (6.0-8.3) gm/dl Albumin 3.8 (3.4-5.0) gm/dl Intake and Output 08/09/24 08/10/24 08/10/24 22:59 06:59 14:59 Intake Total 250 / 1240 200 / 1240 150 / 150 Output Total Balance 249 / 689 200 / 689 150 / 150 Intake: IV 250 / 700 200 / 700 150 / 150 Ampicillin 2,000 mg In Sodium 200 / 600 200 / 600 100 / 100 Chlor 0.9% Mini-B 100 ml @ 200 mls/hr IV Q4H [facility] Rx#:[id number] cefTRIAXone SODIUM 2,000 mg In 50 / 100 50 / 50 50 ml @ 100 mls/hr IV Q12 [facility] Rx#:[id number] Output: # Bowel Movements Other: # Unmeasured Voids 1 Weight 104.2 kg Weight Measurement Method Built in [facility] (1) Endocarditis Chronicity: acute Endocarditis type: infective Infective endocarditis organism: bacterial Qualified Code(s): I33.0 - Acute and subacute infective endocarditis
[2024-08-10] MEDS: LANTUS PER UNIT CHARGE SC SCH (09:02)
--- NOTE | 2024-08-10 10:35 | Pharmacy Report ---
Pharmacy Glycemic Short Note 2 - Date of Service August 10, 2024 - Glycemic Short BSG Results (Last 24 hours): 08/09/24 08/09/24 08/09/24 11:16 16:21 20:24 Glucose POC Glucose 174 H 112 H 186 H 08/10/24 08/10/24 06:36 07:02 Glucose 159 H POC Glucose 170 H OUTPATIENT ANTIDIABETIC REGIMEN: * Metformin 1 g PO BIDM * Glimepiride 2 mg PO qAM HbA1c: 6.1% (07/05/24) ASSESSMENT: 08/10/24 * Rafael received 60 units of SQ insulin yesterday with good glycemic control * Fasting BSG of 170 mg/dL. Fasting BSG has ranged from 152-178 mg/dL on current basal dose. Will increase 20%. * Post prandial BSGs are acceptable. Carb ration tightened yesterday. Will continue same for today. 08/08/24 * Rafael received 61 units of insulin yesterday (30 were basal) * Fasting BSG this AM acceptable, continue current basal insulin * Lunchtime BSG elevated, and lower at dinner, therefore loosen correction factor. Carbohydrate ratio tightened yesterday. * He continues on IV antibiotics, ceftriaxone and ampicillin 08/06/24 * Rafael received 48 units of insulin yesterday (24 were basal) * Fasting BSG this AM acceptable, basal insulin increased yesterday, will continue regimen at this time * No changes to NovoLog, he continues on IV ampicillin and ceftriaxone 08/05/24: * Blood sugars well-controlled yesterday, ranging 123-156 mg/dL * Received 45 units of insulin (20 units of basal and 25 units of prandial/correctional bolus) * Fasting blood sugar of 169 mg/dL this morning and trending up at lunch * Will hold off on bolus changes today since well-controlled yesterday, but will increase basal 08/03/24 * Patient received a total of 43 units of insulin yesterday (20units were basal and 23units were bolus). * BSGs remained above goal range yesterday ([phone]/dL) although they were improved from the previous day. * Fasting BSG was 177mg/dL this morning. Patient was made NPO starting after midnight last night for pacer removal this afternoon. The dose of Lantus was decreased for this morning as patient likely wont be eating until late afternoon. * Bolus insulin regimen to be continued as ordered, may need to tighten parameters once diet is restarted. 08/01/24: * Blood sugars elevated yesterday, ranging 197-227 mg/dL following consult * Received 32 units of insulin (15 units of basal and 17 units of prandial/correctional bolus) * NPO today for ADOLFO to assess for prosthetic valve IE - currently on broad spectrum antimicrobial regimen (vanco, gentamicin, and cefepime) * Currently receiving amiodarone gtt (mixed in dextrose) 07/31/24: * RB is a 69 year old male admitted for sepsis secondary to currently unidentified source (concern for prosthetic valve infective endocarditis) * Blood sugar on presentation is 236 mg/dL, pharmacy consulted for glycemic management * Will give conservative Lantus dose for now and weight-based stress of 2 Novolog * Patient was hyperglycemic during last several inpatient stays here without basal insulin * Diet ordered PLAN FOR INPATIENT GLYCEMIC CONTROL: * Hold outpatient oral diabetes medications * Basal insulin * Lantus 18 units SC BID * Bolus insulin * NovoLog per scale ACHS or Q6hrs while NPO * Goal Range: Low 120 mg/dL - High 150 mg/dL * Correction Factor: 25 mg/dL/unit * Nutritional / Prandial insulin per carb ratio of 1 unit per 5 grams CHO consumed
[2024-08-10] MEDS: FUROSEMIDE 40 MG/4 ML VIAL IV ONE (13:06)
--- NOTE | 2024-08-10 13:32 | Hospitalist Progress Note ---
Date of Service August 10, 2024 Assessment & Plan (1) Severe sepsis: Plan: Rafael Cantu is a 69y/o M with PMHx significant for severe aortic stenosis s/p TAVR on 06/19/24, chronic LBBB, Mobitz type 2 second degree AV block s/p pacemaker placement on 07/02/24 with postoperative course complicated by episodes of sustained ventricular tachycardia requiring upgrade to an ICD on 07/04/24, HTN, HLD, mild nonobstructive CAD, DMII with diabetic nephropathy, REMBERTO on CPAP, pulmonary emphysema, longstanding iron deficiency anemia, BPH with LUTS, benign paroxysmal vertigo, glaucoma of both eyes, depression, GERD and generalized osteoarthritis who presented to the ED via EMS with complaints of fever, chills and generalized weakness. Patient with recent invasive cardiac procedures including TAVR on 06/19/24 for severe and pacemaker placement on 07/02/24 with postoperative course complicated by episodes of sustained ventricular tachycardia requiring upgrade to an ICD on 07/04/24. 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 EF 55 to 60%. Moderate concentric LVH. TAVR bioprosthesis is present. No significant bioprosthetic aortic valve regurgitation. Gradient is normal for prosthetic arctic valve. Moderate mitral annular calcification. Mild tricuspid regurgitation. Estimated systolic blood pressure 43 mmHg. No evidence of vegetation within the limitations of imaging modality. --S/P ADOLFO: Mobile echodensity) to the ICD lead as it transverses through the right atrium. Imaging consistent with vegetation or thrombus. Left atrium is moderately dilated. No thrombus detected in the left atrial appendage. Lactic acidosis resolved with IV fluids --S/P ICD extraction by on 08/04/24 Continue antibiotics: vancomycin, cefepime, gentamicin>> transitioned to Rocephin, ampicillin Appreciate cardiology, infectious disease input Would likely need 6 weeks of antibiotic course from first negative blood cultures. Confirmed with infectious disease on 08/06/2024 PICC line placed on 08/09/2024 Monitor volume status, cont. 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 Patient has been receiving IV Venofer as outpatient Currently no signs of bleeding Anemia workup reviewed Needs follow-up with hematology on discharge Received IV Venofer Leukopenia, thrombocytopenia resolved Hemoglobin 9.1 today Monitor CBC No bleeding issues currently Atrial flutter with rapid ventricular response--POA ICD interrogation Currently no ICD as above IV amiodarone discontinued Continue amiodarone, metoprolol Given stable hemoglobin, thrombocytopenia resolved-- started anticoagulation with Eliquis, per cardiology Appreciate cardiology input Right cephalic vein thrombosis Likely due to IV line placement IV line removed previous hospitalist discussed with on 08/03/2024: Recommends to avoid any systemic anticoagulation Conservative management for now If clinically worsens, we will repeat Doppler to reassess clot burden Clinically improving Cardiology started patient on Eliquis as above Back pain likely due to dextroscoliosis, spondylolisthesis --Lumbar spine x-ray: Moderately severe dextroscoliosis. Severe degenerative spondylosis with probable elements of spinal stenosis through the mid and lower lumbar spine. Spondylolysis with grade 1 spondylolisthesis of L5 on S1. -- Sacrum/coccygeal x-ray:Spondylolysis with grade 1 spondylolisthesis of L5-S1. Otherwise negative for acute bony abnormality. --MRI Lumbar Spine:Degenerative changes. -- Minimize IV narcotics as able has tendency to develop constipation Bowel regimen as needed Appreciate orthopedics input: Conservative management for now PT OT: Recommends to return home (2) Elevated troponin: Plan: Likely demand ischemia secondary to sepsis, atrial flutter RVR (3) History of transcatheter aortic valve replacement (TAVR): Plan: Severe s/p TAVR performed on 06/19/24 at [facility]. Follows with [facility] as an outpatient. (4) Hyponatremia: Plan: Resolved with IV fluids Monitor sodium levels, now pt diuresed (5) Thrombocytopenia: Plan: Likely secondary to sepsis Currently no acute bleeding issues Resolved Monitor (6) Hyperlipidemia: Plan: Continue statin (7) CAD (coronary artery disease): Plan: Continue aspirin, metoprolol, statin (8) History of sustained ventricular tachycardia: (9) S/P ICD (internal cardiac defibrillator) procedure: Plan: Mobitz type 2 second degree AV block s/p pacemaker placement on 07/02/24 with postoperative course complicated by episodes of sustained ventricular tachycardia requiring upgrade to an ICD on 07/04/24. Other Chronic Medical Conditions: REMBERTO - Continue CPAP HS. HTN -continue current medications, monitor blood pressure DVT Px SQ Heparin -> eliquis Code Status: DNR/DNI Disposition: [facility]/ [facility] Admission and Anticipated Discharge Date Admission Date: July 31, 2024 Subjective Pt seen in follow up bacteremia ICD removed 08/03 ID consult note on 08/02 Cardiology following closely and discussed with - will cont. with diuresis today. Plan to then DC to snf Overall pt feels well Pt denies any chest pain, dyspnea, nausea, vomiting, abdominal pain Upper extremity edema, erythema continues to improve PICC line placed yesterday (08/09/2024) Review of Systems Review of Systems: All systems reviewed & are unremarkable except as noted in Subjective Physical Exam Physical Exam: General Appearance:Obese, no apparent distress Head: normocephalic, Atraumatic Eyes: normal inspection, EOMI Neck: supple Respiratory/Chest: Decreased breath sounds, CTA, No accessory muscle use Cardiovascular: regular, no murmur Abdomen/GI:Soft, Non tender, Bowel sounds present Extremities/Musculoskeletal:normal inspection, + mild edema, right upper extremity swelling, erythema, tender - much improved now Neurologic/Psych:AAOX3, grossly no focal neurological deficits Skin: normal color, warm Results & Data Results & Data Vital Signs (Past 12 Hours) Vital Signs Temp Pulse Pulse Resp BP Pulse Ox O2 Del Method 08/10/24 11:16 36.5 C 45 L 17 110/68 94 Room Air 08/10/24 08:08 69 08/10/24 07:27 57 L 08/10/24 07:10 36.8 C 57 L 19 128/68 95 Room Air 08/10/24 02:55 36.3 C L 61 18 135/68 96 Room Air Laboratory Results 08/10/24 08/10/24 08/10/24 Range/Units 11:02 07:02 06:36 WBC 8.72 (4.8-10.8) K/ul RBC 3.71 L (4.70-6.10) M/uL Hgb 9.1 L (14.0-18.0) g/dl Hct 30.8 L (42.0-52.0) % MCV 83.0 (80.0-100.0) fL MCH 24.5 L (25.0-34.0) pg MCHC 29.5 L (32.0-36.0) g/dL RDW Std Deviation 69.2 H (36.4-46.3) fL RDW Coeff of Freddie 23.4 H (11.5-14.5) % Plt Count 256 (130-400) K/uL MPV 10.7 (9.4-12.4) fL Sodium 137 (136-145) mmol/L Potassium 4.0 (3.5-5.1) mmol/L Chloride 102 (98-107) mmol/L Carbon Dioxide 29 (21-32) mmol/L Anion Gap 6 (3-11) BUN 20 (6-23) mg/dl Creatinine 1.14 (0.6-1.4) mg/dl Est Cr Clr Drug Dosing 70.7 ml/min eGFR 68.76 BUN/Creatinine Ratio 17.5 (10-20) Glucose 159 H (70-99(Fasting)) mg/dl POC Glucose 234 H 170 H (70-99) mg/dl Calcium 9.2 (8.6-10.3) mg/dl Phosphorus 3.7 (2.5-4.9) mg/dl Magnesium 2.4 (1.7-2.4) mg/dl Total Bilirubin 0.5 (0.2-1.0) mg/dl AST 21 (13-39) U/L ALT 24 (7-52) U/L Alkaline Phosphatase 92 (34-104) U/L Total Protein 7.1 (6.0-8.3) gm/dl Albumin 3.8 (3.4-5.0) gm/dl Globulin 3.3 (2.5-4.0) gm/dl Albumin/Globulin Ratio 1.2 (0.9-2) 08/09/24 08/09/24 Range/Units 20:24 16:21 WBC (4.8-10.8) K/ul RBC (4.70-6.10) M/uL Hgb (14.0-18.0) g/dl Hct (42.0-52.0) % MCV (80.0-100.0) fL MCH (25.0-34.0) pg MCHC (32.0-36.0) g/dL RDW Std Deviation (36.4-46.3) fL RDW Coeff of Freddie (11.5-14.5) % Plt Count (130-400) K/uL MPV (9.4-12.4) fL Sodium (136-145) mmol/L Potassium (3.5-5.1) mmol/L Chloride (98-107) mmol/L Carbon Dioxide (21-32) mmol/L Anion Gap (3-11) BUN (6-23) mg/dl Creatinine (0.6-1.4) mg/dl Est Cr Clr Drug Dosing ml/min eGFR BUN/Creatinine Ratio (10-20) Glucose (70-99(Fasting)) mg/dl POC Glucose 186 H 112 H (70-99) mg/dl Calcium (8.6-10.3) mg/dl Phosphorus (2.5-4.9) mg/dl Magnesium (1.7-2.4) mg/dl Total Bilirubin (0.2-1.0) mg/dl AST (13-39) U/L ALT (7-52) U/L Alkaline Phosphatase (34-104) U/L Total Protein (6.0-8.3) gm/dl Albumin (3.4-5.0) gm/dl Globulin (2.5-4.0) gm/dl Albumin/Globulin Ratio (0.9-2) Medications Administered Current Inpatient Medications Acetaminophen (Acetaminophen 500 Mg Tab) 1,000 mg PO Q8H PRN PRN Reason: Pain Stop: 08/30/24 11:16 Last Admin: 08/09/24 19:53 Dose: 1,000 mg Amiodarone HCl (Amiodarone 200 Mg Tab) 200 mg PO BIDM [facility] Stop: 09/01/24 16:59 Last Admin: 08/10/24 08:03 Dose: 200 mg Apixaban (Apixaban 5 Mg Tablet) 5 mg PO BID DANYEL Stop: 09/06/24 20:59 Last Admin: 08/10/24 08:04 Dose: 5 mg Aspirin (Aspirin 81 Mg Chew) 81 mg PO DAILY DANYEL Stop: 08/30/24 11:44 Last Admin: 08/10/24 08:14 Dose: 81 mg Benzonatate (Benzonatate 100 Mg Capsule) 100 mg PO TID PRN PRN Reason: Cough Stop: 09/06/24 19:57 Last Admin: 08/08/24 15:57 Dose: 100 mg Bisacodyl (Bisacodyl 10 Mg Supp) 10 mg ME DAILY PRN PRN Reason: Constipation Stop: 09/03/24 15:40 Cyanocobalamin (Cyanocobalamin (B-12) 500 Mcg Tablet) 1,000 mcg PO DAILY DANYEL Stop: 08/31/24 08:59 Last Admin: 08/10/24 08:04 Dose: 1,000 mcg Dextrose (Dextrose 50% 50 Ml Syringe) 25 - 50 ml IV UD PRN; Protocol PRN Reason: Hypoglycemia Protocol Stop: 08/30/24 11:29 Docusate Sodium (Docusate Sodium 100 Mg Cap) 100 mg PO BID DANYEL Stop: 09/03/24 15:39 Last Admin: 08/10/24 08:14 Dose: 100 mg Finasteride (Finasteride 5 Mg Tab) 5 mg PO QAM DANYEL Stop: 08/30/24 11:44 Last Admin: 08/10/24 08:06 Dose: 5 mg Folic Acid (Folic Acid 1 Mg Tab) 1 mg PO DAILY DANYEL Stop: 08/31/24 08:59 Last Admin: 08/10/24 08:05 Dose: 1 mg Glucagon (Glucagon For Inj 1 Mg Vial) 1 mg SQ UD PRN; Protocol PRN Reason: Hypoglycemia Protocol Stop: 08/30/24 11:29 Glucose (Glucose 40% Gel 15 Gm Tube) 15 - 30 gm PO UD PRN; Protocol PRN Reason: Hypoglycemia Protocol Stop: 08/30/24 11:29 Glucose (Glucose 10 Tab/Tube) 4 - 8 tab PO UD PRN; Protocol PRN Reason: Hypoglycemia Protocol Stop: 08/30/24 11:29 Guaifenesin (Guaifenesin 600 Mg Tabcr) 600 mg PO Q12 DANYEL Stop: 09/07/24 20:59 Last Admin: 08/10/24 08:06 Dose: 600 mg Heparin Sodium (Beef Lung) (Heparin 10 Unit/Ml 5 Ml Flush) 5 ml FLUSH PRN PRN PRN Reason: Flush Stop: 09/08/24 15:01 Last Admin: 08/09/24 16:49 Dose: 5 ml Ampicillin Sodium 2,000 mg/ (Sodium Chloride) 100 mls @ 200 mls/hr IV Q4H [facility] Stop: 09/12/24 15:29 Last Infusion: 08/10/24 12:16 Dose: Infused Ceftriaxone Sodium (Rocephin) 2,000 mg in 50 mls @ 100 mls/hr IV Q12 DANYEL Stop: 09/13/24 11:44 Last Infusion: 08/10/24 09:29 Dose: Infused Insulin Aspart (Insulin Aspart Per Unit Charge) 0 units SC ACHS [facility] Stop: 08/30/24 11:29 Last Admin: 08/10/24 12:23 Dose: 14 units Insulin Glargine (Lantus Per Unit Charge) 18 units SC BID [facility] Stop: 09/09/24 08:59 Last Admin: 08/10/24 09:02 Dose: 18 units Lactobacillus Acidophilus (Advanced Probiotic 625 Mg Capsule) 1,250 mg PO DAILY [facility] Stop: 08/30/24 14:14 Last Admin: 08/10/24 08:06 Dose: 1,250 mg Latanoprost (Latanoprost 0.005% Op Soln 2.5 Ml Btl) 1 drops OPB HS [facility] Stop: 08/30/24 20:59 Last Admin: 08/09/24 21:01 Dose: 1 drops Magnesium Hydroxide (Magnesium Hydroxide Susp 30 Ml Udc) 30 ml PO Q12H PRN PRN Reason: Constipation Stop: 08/30/24 11:16 Menthol (Cough Drop (Sugar Free) Sally 24 Sally/1 Box) 1 sally BUCCAL Q2H PRN PRN Reason: Sore Throat Stop: 09/08/24 09:23 Last Admin: 08/09/24 19:51 Dose: 1 sally Metoprolol Succinate (Metoprolol Succ 50mg Ext Rel Tab) 50 mg PO QAM [facility] Stop: 08/30/24 11:44 Last Admin: 08/10/24 08:07 Dose: 50 mg Miscellaneous (Carbohydrates For Hypoglycemia ) 15 - 30 gm PO UD PRN PRN Reason: Hypoglycemia Protocol Stop: 08/30/24 11:29 Miscellaneous Information (Pharmacy Glycemic Mgmt Consult) 1 each N/A UD PRN PRN Reason: Consult Stop: 08/30/24 11:29 Morphine Sulfate (Morphine Sulfate 4 Mg/Ml 1 Ml Carp\Vial) 2 mg IV Q4H PRN PRN Reason: Pain Stop: 08/18/24 01:45 Multivitamins (Multivitamin Tab) 1 tab PO QAM DANYEL Stop: 08/31/24 08:59 Last Admin: 08/10/24 08:07 Dose: 1 tab Nitroglycerin (Nitroglycerin Sl 0.4 Mg/Tab Tab) 0.4 mg SL Q5M PRN PRN Reason: Chest Pain Stop: 09/03/24 01:33 Last Admin: 08/04/24 01:58 Dose: 0.4 mg Ondansetron HCl (Ondansetron Inj 2 Mg/Ml 2 Ml Vial) 4 mg IV Q6H PRN PRN Reason: Nausea And Vomiting Stop: 09/01/24 18:09 Last Admin: 08/02/24 18:18 Dose: 4 mg Oxycodone HCl (Oxycodone Hcl Ir 5 Mg Tab (Immediate Release)) 5 mg PO Q4H PRN PRN Reason: Pain Stop: 08/18/24 01:35 Last Admin: 08/04/24 07:28 Dose: 5 mg Pantoprazole Sodium (Pantoprazole 40 Mg Tab) 40 mg PO DAILY DANYEL Stop: 08/30/24 11:44 Last Admin: 08/10/24 08:08 Dose: 40 mg Rosuvastatin Calcium (Rosuvastatin Calcium 20 Mg Tab) 40 mg PO HS DANYEL Stop: 08/30/24 20:59 Last Admin: 08/09/24 21:01 Dose: 40 mg Sodium Chloride (Sodium Chloride 0.65% Na Soln 45 Ml ([place])) 1 sprays NA TID DANYEL Stop: 09/07/24 20:59 Last Admin: 08/10/24 08:50 Dose: 1 sprays Tamsulosin HCl (Tamsulosin Hcl 0.4 Mg Cap) 0.4 mg PO HS DANYEL Stop: 08/30/24 20:59 Last Admin: 08/09/24 21:01 Dose: 0.4 mg Torsemide (Torsemide 20 Mg Tab) 40 mg PO QAM DANYEL Stop: 09/10/24 08:59 Vitamin D (Cholecalciferol 125 Mcg (5,000 Units) Tab) 125 mcg PO DAILY DANYEL Stop: 08/30/24 11:44 Last Admin: 08/10/24 08:05 Dose: 125 mcg (6) Hyperlipidemia Hyperlipidemia type: unspecified Qualified Code(s): E78.5 - Hyperlipidemia, unspecified (7) CAD (coronary artery disease) Associated angina: unspecified whether angina present Coronary Disease- Associated Artery/Lesion type: unspecified vessel or lesion type [place] vs. transplanted heart: [place] heart Qualified Code(s): I25.10 - Atherosclerotic heart disease of [place] coronary artery without angina pectoris
[2024-08-11 06:46] LABS: Hematocrit (blood only) 30.4 % (42.0-52.0); Mean Corpuscular Hemoglobin 24.7 pg (25.0-34.0); Mean Corpuscular Hgb Conc 29.6 g/dL (32.0-36.0); Mean Corpuscular Volume 83.3 fL (80.0-100.0); Mean Platelet Volume 10.3 fL (9.4-12.4); Platelet Count 228 K/uL (130-400); RDW Coefficient of Variation 23.5 % (11.5-14.5); RDW Standard Deviation 70.1 fL (36.4-46.3); Red Blood Count 3.65 M/uL (4.70-6.10); White Blood Count 8.56 K/ul (4.8-10.8)
[2024-08-11 07:10] LABS: BUN Creatinine Ratio 21.2 (10-20); Calcium 9.1 mg/dl (8.6-10.3); Creatinine Clr Calc Pharmacy 60.7 ml/min; Magnesium 2.4 mg/dl (1.7-2.4); Phosphorus 4.1 mg/dl (2.5-4.9); Potassium 3.9 mmol/L (3.5-5.1)
[2024-08-11] MEDS: TORSEMIDE 20 MG TAB PO SCH (08:08)
--- NOTE | 2024-08-11 08:27 | Cardiology Progress Note ---
Date of Service August 11, 2024 Assessment & Plan (1) Endocarditis: (2) Enterococcal bacteremia: (3) S/P ICD (internal cardiac defibrillator) procedure: Plan: -Extracted 08/03/2024 (4) History of sustained ventricular tachycardia: (5) History of transcatheter aortic valve replacement (TAVR): (6) Atrial flutter: Plan: 08/08/2024 * Continue ampicillin and Rocephin for now with hopes to hear of the spectrum of antibiotics. * Continue furosemide, 40 mg today and daily. * Continue metoprolol and amiodarone. * Eliquis added, hemoglobin has been stable. * Wearable defibrillator fitted, delivered 08/09/2024: * patient is stable from a cardiac perspective. he shows some improvement in his volume status. Agree with continuing Furosemide 40mg IV daily. Closely monitor renal function and serum electrolytes. * Daily weights on standing scale. Strict I&O. -4kg weight deficit per Nursing notes. * Goal serum K > 4.0 and serum Mag > 2.0 * continues with A-fib/flutter on telemetry, asymptomatic. Continue Amiodarone and metoprolol. No profound lows or highs on telemetry. * Assure wearable defibrillator has been fitted and remains at bedside. Ready for when patient is appropriate for discharge. Concern is ensuring that any rehab facility he is discharged to is aware and accepts him with this device. May just need education gap filled. * Continue Eliquis 5mg PO BID. No bleeding concerns. HgB remains stable. * assess fluid status in the AM * ID to determine antibiotic plan for when patient is discharged, continued management per primary team. 08/10/2024: -Patient continues to demonstrate clinical improvement, but remains with volume overload on exam. -Give a one time additional dose of Furosemide 40mg IV today. Starting tomorrow transition to Torsemide 40mg PO daily. Strict I&O, daily weights with a standing scale. -Close monitoring of renal function and serum electrolytes. Goal serum K > 4.0 and Serum mag > 2.0 -Assure wearable defibrillator has been fitted and remains at bedside. Ready for when patient is appropriate for discharge. Concern is ensuring that any rehab facility he is discharged to is aware and accepts him with this device. May just need education gap filled. -Continue Eliquis 5mg PO BID. No bleeding concerns. HgB remains stable. -assess fluid status in the AM -Reviewed patient's record and Infectious disease plan of care is outlined below. May see Communication report dated 08/02/[address] Parada: Date of Service: August 02, 2024 Enterococcus faecalis bacteremia, ampicillin sensitive, mobile echodensities identified on ICD lead via ADOLFO. Agree with removal, luckily his blood cultures have become negative, reasonable to deescalate to ampicillin and ceftriaxone and if patient continues expectedly With consistently cleared blood cultures he can continue these antibiotics for a total of 6 weeks from the date of lead removal. - discontinue vancomycin - ceftriaxone 2 g IV q.12 hours - ampicillin 2 g IV q.4 hours or 12 g every 24 hours continuous infusion To complete total of 6 weeks from 08/0309/13/2024 ( based on removal date) - CBC with differential, CMP q.week while on antibiotics - reasonable to replace new device after at least 72 hours as long as patient remains stable - patient will need follow-up in ID Clinic within 4-6 weeks 08/11/2024: -patient is stable from a cardiac perspective. -Continue Torsemide 40mg by mouth daily as ordered to maintain optimal fluid balance as patient will be receiving a significant amount of IV antibiotics over the course of the next few weeks -Close OP lab monitoring -Assure wearable defibrillator to be worn at time of discharge -Continue Eliquis 5mg PO BID. H/H stable, no bleeding concerns. -Continue Toprol xl 50mg by mouth daily -Continue crestor 40mg daily -patient is appropriate for discharge when ok with primary team and bed available at facility -Patient to have close OP cardiology follow up in 3-4 weeks Case has been discussed with Dr. Allen. I spent a total of 30 minutes on the date of service in preparation, delivery, documentation of the care provided to the patient excluding any time spent in the performance of separately billed services. CYNDI Crabtree [facility] [address] Admission and Anticipated Discharge Date Admission Date: July 31, 2024 Supervising Physician Co-Signing Physician Notes Attending attestation: Case reviewed with the advanced practitioner. I have personally performed a history and physical examination on the patient. I have reviewed the advanced practitioner's documentation on the date of service referenced in note, and I agree with, and take responsibility for the plan of care. Stable for transfer to SNF when bed available on medication plan as outlined. I spent a total of 20 minutes coordinating, documenting, and providing care for this patient excluding time spent in the performance of separately billed services or time spent by another provider. Conor Allen DO Subjective 08/11/2024:Patient seen and examined in follow up today. Feeling well. He is sitting out on the side of bed without new concerns. continues with some nasal congestion. No chest pain, pressure, palpitations, no shortness of breath. Labs, vitals, diagnostics, telemetry and documentation reviewed. Telemetry reviewed showing A-flutter rates 60's. No acute events overnight. -765cc fluid deficit -5kg Review of Systems Review of Systems: All systems reviewed & are unremarkable except as noted in HPI & below Physical Exam Constitutional: well developed and well nourished; no acute distress Neck: normal visual inspection and trachea midline Respiratory: normal respiratory effort; no respiratory distress and no labored breathing Auscultation: lungs clear to auscultation bilaterally; no crackles, no rales, no rhonchi and no wheezes Cardiovascular: Rate/Rhythm: + irregularly irregular Heart Sounds: normal S1, normal S2 and + murmur (+1/6 systolic) Vessels: dorsalis pedis pulses present; no JVD Extremities: + edema (trace to BLE) Skin: normal turgor; no rashes Psychiatric: A+Ox3, euthymic affect Results & Data Vital Signs (Past 12 Hours) Vital Signs Temp Pulse Pulse Pulse Resp BP Pulse Ox 08/11/24 07:55 36.5 C 62 20 129/78 94 08/11/24 07:09 58 L 08/11/24 03:35 36.0 C L 60 18 135/74 96 08/11/24 03:21 60 14 95 08/10/24 23:39 36.6 C 53 L 17 121/69 96 08/10/24 21:50 70 20 98 08/10/24 21:49 74 O2 Del Method O2 Flow Rate 08/11/24 07:55 Room Air 08/11/24 07:09 08/11/24 03:35 CPAP 08/11/24 03:21 08/10/24 23:39 CPAP 08/10/24 21:50 1 08/10/24 21:49 Laboratory Results CBC 08/11/24 Range/Units 06:23 WBC 8.56 (4.8-10.8) K/ul RBC 3.65 L (4.70-6.10) M/uL Hgb 9.0 L (14.0-18.0) g/dl Hct 30.4 L (42.0-52.0) % Plt Count 228 (130-400) K/uL Comprehensive Metabolic Panel 08/11/24 Range/Units 06:23 Sodium 138 (136-145) mmol/L Potassium 3.9 (3.5-5.1) mmol/L Chloride 102 (98-107) mmol/L Carbon Dioxide 30 (21-32) mmol/L BUN 28 H (6-23) mg/dl Creatinine 1.32 (0.6-1.4) mg/dl Glucose 145 H (70-99(Fasting)) mg/dl Calcium 9.1 (8.6-10.3) mg/dl Intake and Output 08/10/24 08/11/24 08/11/24 22:59 06:59 14:59 Intake Total 250 / 1060 200 / 1060 250 / 250 Output Total 925 / 1825 Balance 250 / -765 -725 / -765 250 / 250 Intake: IV 250 / 700 200 / 700 250 / 250 Ampicillin 2,000 mg In Sodium 200 / 600 200 / 600 200 / 200 Chlor 0.9% Mini-B 100 ml @ 200 mls/hr IV Q4H [facility] Rx#:[id number] cefTRIAXone SODIUM 2,000 mg In 50 / 100 50 / 50 50 ml @ 100 mls/hr IV Q12 [facility] Rx#:[id number] Output: Urine 925 / 1825 Other: Weight 103.1 kg Weight Measurement Method Built in [facility] (1) Endocarditis Chronicity: acute Endocarditis type: infective Infective endocarditis organism: bacterial Qualified Code(s): I33.0 - Acute and subacute infective endocarditis
--- NOTE | 2024-08-11 17:47 | Hospitalist Progress Note ---
Date of Service August 11, 2024 Assessment & Plan (1) Severe sepsis: Plan: Rafael Cantu is a 69y/o M with PMHx significant for severe aortic stenosis s/p TAVR on 06/19/24, chronic LBBB, Mobitz type 2 second degree AV block s/p pacemaker placement on 07/02/24 with postoperative course complicated by episodes of sustained ventricular tachycardia requiring upgrade to an ICD on 07/04/24, HTN, HLD, mild nonobstructive CAD, DMII with diabetic nephropathy, REMBERTO on CPAP, pulmonary emphysema, longstanding iron deficiency anemia, BPH with LUTS, benign paroxysmal vertigo, glaucoma of both eyes, depression, GERD and generalized osteoarthritis who presented to the ED via EMS with complaints of fever, chills and generalized weakness. Patient with recent invasive cardiac procedures including TAVR on 06/19/24 for severe and pacemaker placement on 07/02/24 with postoperative course complicated by episodes of sustained ventricular tachycardia requiring upgrade to an ICD on 07/04/24. 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 EF 55 to 60%. Moderate concentric LVH. TAVR bioprosthesis is present. No significant bioprosthetic aortic valve regurgitation. Gradient is normal for prosthetic arctic valve. Moderate mitral annular calcification. Mild tricuspid regurgitation. Estimated systolic blood pressure 43 mmHg. No evidence of vegetation within the limitations of imaging modality. --S/P ADOLFO: Mobile echodensity) to the ICD lead as it transverses through the right atrium. Imaging consistent with vegetation or thrombus. Left atrium is moderately dilated. No thrombus detected in the left atrial appendage. Lactic acidosis resolved with IV fluids --S/P ICD extraction by on 08/04/24 Continue antibiotics: vancomycin, cefepime, gentamicin>> transitioned to Rocephin, ampicillin Appreciate cardiology, infectious disease input Would likely need 6 weeks of antibiotic course from first negative blood cultures. 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 Patient has been receiving IV Venofer as outpatient Currently no signs of bleeding Anemia workup reviewed Needs follow-up with hematology on discharge Received IV Venofer Leukopenia, thrombocytopenia resolved Hemoglobin 9.0 today Monitor CBC No bleeding issues currently Atrial flutter with rapid ventricular response--POA ICD interrogation Currently no ICD as above IV amiodarone discontinued Continue amiodarone, metoprolol Given stable hemoglobin, thrombocytopenia resolved-- started anticoagulation with Eliquis, per cardiology Appreciate cardiology input Right cephalic vein thrombosis Likely due to IV line placement IV line removed previous hospitalist discussed with on 08/03/2024: Recommends to avoid any systemic anticoagulation Conservative management for now If clinically worsens, we will repeat Doppler to reassess clot burden Clinically improving Cardiology started patient on Eliquis as above Back pain likely due to dextroscoliosis, spondylolisthesis --Lumbar spine x-ray: Moderately severe dextroscoliosis. Severe degenerative spondylosis with probable elements of spinal stenosis through the mid and lower lumbar spine. Spondylolysis with grade 1 spondylolisthesis of L5 on S1. -- Sacrum/coccygeal x-ray:Spondylolysis with grade 1 spondylolisthesis of L5-S1. Otherwise negative for acute bony abnormality. --MRI Lumbar Spine:Degenerative changes. -- Minimize IV narcotics as able has tendency to develop constipation Bowel regimen as needed Appreciate orthopedics input: Conservative management for now PT OT: Recommends to return home (2) Elevated troponin: Plan: Likely demand ischemia secondary to sepsis, atrial flutter RVR (3) History of transcatheter aortic valve replacement (TAVR): Plan: Severe s/p TAVR performed on 06/19/[address] [facility]. Follows with [facility] as an outpatient. (4) Hyponatremia: Plan: Resolved with IV fluids Monitor sodium levels, now pt diuresed (5) Thrombocytopenia: Plan: Likely secondary to sepsis Currently no acute bleeding issues Resolved Monitor (6) Hyperlipidemia: Plan: Continue statin (7) CAD (coronary artery disease): Plan: Continue aspirin, metoprolol, statin (8) History of sustained ventricular tachycardia: (9) S/P ICD (internal cardiac defibrillator) procedure: Plan: Mobitz type 2 second degree AV block s/p pacemaker placement on 07/02/24 with postoperative course complicated by episodes of sustained ventricular tachycardia requiring upgrade to an ICD on 07/04/24. Other Chronic Medical Conditions: REMBERTO - Continue CPAP HS. HTN - continue current medications, monitor blood pressure DVT Px - eliquis Code Status: DNR/DNI Disposition: [facility]/ [facility] Admission and Anticipated Discharge Date Admission Date: July 31, 2024 Subjective Pt seen in follow up bacteremia ICD removed 08/03 ID consult note on 08/02 Cardiology consulted - diuresis w/ po torsemide now, cont. eliquis. Plan to DC to snf likely tmrw Overall pt feels well Pt denies any chest pain, dyspnea, nausea, vomiting, abdominal pain Upper extremity edema, erythema continues to improve PICC line placed on (08/09/2024) Review of Systems Review of Systems: All systems reviewed & are unremarkable except as noted in Subjective Physical Exam Physical Exam: General Appearance: Obese, no apparent distress Head: normocephalic, Atraumatic Eyes: normal inspection, EOMI Neck: supple Respiratory/Chest: Decreased breath sounds, CTA, No accessory muscle use Cardiovascular: regular, no murmur Abdomen/GI: Soft, Non tender, Bowel sounds present Extremities/Musculoskeletal: normal inspection, + mild edema, right upper extremity swelling, erythema, tender - much improved now Neurologic/Psych: AAOX3, grossly no focal neurological deficits Skin: normal color, warm Results & Data Results & Data Vital Signs (Past 12 Hours) Vital Signs Temp Pulse Pulse Pulse Resp BP Pulse Ox 08/11/24 16:10 36.5 C 74 66 18 118/74 94 08/11/24 15:33 69 08/11/24 12:04 36.4 C L 74 16 130/86 93 08/11/24 07:55 36.5 C 62 20 129/78 94 08/11/24 07:45 08/11/24 07:09 58 L O2 Del Method 08/11/24 16:10 Room Air 08/11/24 15:33 08/11/24 12:04 Room Air 08/11/24 07:55 Room Air 08/11/24 07:45 Room Air 08/11/24 07:09 Laboratory Results 08/11/24 08/11/24 08/11/24 Range/Units 16:22 11:22 07:16 WBC (4.8-10.8) K/ul RBC (4.70-6.10) M/uL Hgb (14.0-18.0) g/dl Hct (42.0-52.0) % MCV (80.0-100.0) fL MCH (25.0-34.0) pg MCHC (32.0-36.0) g/dL RDW Std Deviation (36.4-46.3) fL RDW Coeff of Freddie (11.5-14.5) % Plt Count (130-400) K/uL MPV (9.4-12.4) fL Sodium (136-145) mmol/L Potassium (3.5-5.1) mmol/L Chloride (98-107) mmol/L Carbon Dioxide (21-32) mmol/L Anion Gap (3-11) BUN (6-23) mg/dl Creatinine (0.6-1.4) mg/dl Est Cr Clr Drug Dosing ml/min eGFR BUN/Creatinine Ratio (10-20) Glucose (70-99(Fasting)) mg/dl POC Glucose 222 H 197 H 164 H (70-99) mg/dl Calcium (8.6-10.3) mg/dl Phosphorus (2.5-4.9) mg/dl Magnesium (1.7-2.4) mg/dl 08/11/24 08/10/24 Range/Units 06:23 20:17 WBC 8.56 (4.8-10.8) K/ul RBC 3.65 L (4.70-6.10) M/uL Hgb 9.0 L (14.0-18.0) g/dl Hct 30.4 L (42.0-52.0) % MCV 83.3 (80.0-100.0) fL MCH 24.7 L (25.0-34.0) pg MCHC 29.6 L (32.0-36.0) g/dL RDW Std Deviation 70.1 H (36.4-46.3) fL RDW Coeff of Freddie 23.5 H (11.5-14.5) % Plt Count 228 (130-400) K/uL MPV 10.3 (9.4-12.4) fL Sodium 138 (136-145) mmol/L Potassium 3.9 (3.5-5.1) mmol/L Chloride 102 (98-107) mmol/L Carbon Dioxide 30 (21-32) mmol/L Anion Gap 6 (3-11) BUN 28 H (6-23) mg/dl Creatinine 1.32 (0.6-1.4) mg/dl Est Cr Clr Drug Dosing 60.7 ml/min eGFR 57.67 BUN/Creatinine Ratio 21.2 H (10-20) Glucose 145 H (70-99(Fasting)) mg/dl POC Glucose 108 H (70-99) mg/dl Calcium 9.1 (8.6-10.3) mg/dl Phosphorus 4.1 (2.5-4.9) mg/dl Magnesium 2.4 (1.7-2.4) mg/dl Medications Administered Current Inpatient Medications Acetaminophen (Acetaminophen 500 Mg Tab) 1,000 mg PO Q8H PRN PRN Reason: Pain Stop: 08/30/24 11:16 Last Admin: 08/10/24 21:23 Dose: 1,000 mg Amiodarone HCl (Amiodarone 200 Mg Tab) 200 mg PO BIDM [facility] Stop: 09/01/24 16:59 Last Admin: 08/11/24 17:32 Dose: 200 mg Apixaban (Apixaban 5 Mg Tablet) 5 mg PO BID [facility] Stop: 09/06/24 20:59 Last Admin: 08/11/24 08:08 Dose: 5 mg Aspirin (Aspirin 81 Mg Chew) 81 mg PO DAILY [facility] Stop: 08/30/24 11:44 Last Admin: 08/11/24 08:04 Dose: 81 mg Benzonatate (Benzonatate 100 Mg Capsule) 100 mg PO TID PRN PRN Reason: Cough Stop: 09/06/24 19:57 Last Admin: 08/08/24 15:57 Dose: 100 mg Bisacodyl (Bisacodyl 10 Mg Supp) 10 mg [place] DAILY PRN PRN Reason: Constipation Stop: 09/03/24 15:40 Cyanocobalamin (Cyanocobalamin (B-12) 500 Mcg Tablet) 1,000 mcg PO DAILY [facility] Stop: 08/31/24 08:59 Last Admin: 08/11/24 08:05 Dose: 1,000 mcg Dextrose (Dextrose 50% 50 Ml Syringe) 25 - 50 ml IV UD PRN; Protocol PRN Reason: Hypoglycemia Protocol Stop: 08/30/24 11:29 Docusate Sodium (Docusate Sodium 100 Mg Cap) 100 mg PO BID [facility] Stop: 09/03/24 15:39 Last Admin: 08/11/24 08:04 Dose: 100 mg Finasteride (Finasteride 5 Mg Tab) 5 mg PO QAM [facility] Stop: 08/30/24 11:44 Last Admin: 08/11/24 08:07 Dose: 5 mg Folic Acid (Folic Acid 1 Mg Tab) 1 mg PO DAILY [facility] Stop: 08/31/24 08:59 Last Admin: 08/11/24 08:07 Dose: 1 mg Glucagon (Glucagon For Inj 1 Mg Vial) 1 mg SQ UD PRN; Protocol PRN Reason: Hypoglycemia Protocol Stop: 08/30/24 11:29 Glucose (Glucose 40% Gel 15 Gm Tube) 15 - 30 gm PO UD PRN; Protocol PRN Reason: Hypoglycemia Protocol Stop: 08/30/24 11:29 Glucose (Glucose 10 Tab/Tube) 4 - 8 tab PO UD PRN; Protocol PRN Reason: Hypoglycemia Protocol Stop: 08/30/24 11:29 Guaifenesin (Guaifenesin 600 Mg Tabcr) 600 mg PO Q12 [facility] Stop: 09/07/24 20:59 Last Admin: 08/11/24 08:08 Dose: 600 mg Heparin Sodium (Beef Lung) (Heparin 10 Unit/Ml 5 Ml Flush) 5 ml FLUSH PRN PRN PRN Reason: Flush Stop: 09/08/24 15:01 Last Admin: 08/09/24 16:49 Dose: 5 ml Ampicillin Sodium 2,000 mg/ (Sodium Chloride) 100 mls @ 200 mls/hr IV Q4H [facility] Stop: 09/12/24 15:29 Last Infusion: 08/11/24 17:23 Dose: Infused Ceftriaxone Sodium (Rocephin) 2,000 mg in 50 mls @ 100 mls/hr IV Q12 [facility] Stop: 09/13/24 11:44 Last Infusion: 08/11/24 10:01 Dose: Infused Insulin Aspart (Insulin Aspart Per Unit Charge) 0 units SC ACHS [facility] Stop: 08/30/24 11:29 Last Admin: 08/11/24 17:28 Dose: 17 units Insulin Glargine (Lantus Per Unit Charge) 18 units SC BID [facility] Stop: 09/09/24 08:59 Last Admin: 08/11/24 08:22 Dose: 18 units Lactobacillus Acidophilus (Advanced Probiotic 625 Mg Capsule) 1,250 mg PO DAILY [facility] Stop: 08/30/24 14:14 Last Admin: 08/11/24 08:06 Dose: 1,250 mg Latanoprost (Latanoprost 0.005% Op Soln 2.5 Ml Btl) 1 drops OPB HS [facility] Stop: 08/30/24 20:59 Last Admin: 08/10/24 20:51 Dose: 1 drops Magnesium Hydroxide (Magnesium Hydroxide Susp 30 Ml Udc) 30 ml PO Q12H PRN PRN Reason: Constipation Stop: 08/30/24 11:16 Menthol (Cough Drop (Sugar Free) Sally 24 Sally/1 Box) 1 sally BUCCAL Q2H PRN PRN Reason: Sore Throat Stop: 09/08/24 09:23 Last Admin: 08/09/24 19:51 Dose: 1 sally Metoprolol Succinate (Metoprolol Succ 50mg Ext Rel Tab) 50 mg PO QAM [facility] Stop: 08/30/24 11:44 Last Admin: 08/11/24 08:06 Dose: 50 mg Miscellaneous (Carbohydrates For Hypoglycemia ) 15 - 30 gm PO UD PRN PRN Reason: Hypoglycemia Protocol Stop: 08/30/24 11:29 Miscellaneous Information (Pharmacy Glycemic Mgmt Consult) 1 each N/A UD PRN PRN Reason: Consult Stop: 08/30/24 11:29 Morphine Sulfate (Morphine Sulfate 4 Mg/Ml 1 Ml Carp\Vial) 2 mg IV Q4H PRN PRN Reason: Pain Stop: 08/18/24 01:45 Multivitamins (Multivitamin Tab) 1 tab PO QAM [facility] Stop: 08/31/24 08:59 Last Admin: 08/11/24 08:06 Dose: 1 tab Nitroglycerin (Nitroglycerin Sl 0.4 Mg/Tab Tab) 0.4 mg SL Q5M PRN PRN Reason: Chest Pain Stop: 09/03/24 01:33 Last Admin: 08/04/24 01:58 Dose: 0.4 mg Ondansetron HCl (Ondansetron Inj 2 Mg/Ml 2 Ml Vial) 4 mg IV Q6H PRN PRN Reason: Nausea And Vomiting Stop: 09/01/24 18:09 Last Admin: 08/02/24 18:18 Dose: 4 mg Oxycodone HCl (Oxycodone Hcl Ir 5 Mg Tab (Immediate Release)) 5 mg PO Q4H PRN PRN Reason: Pain Stop: 08/18/24 01:35 Last Admin: 08/04/24 07:28 Dose: 5 mg Pantoprazole Sodium (Pantoprazole 40 Mg Tab) 40 mg PO DAILY [facility] Stop: 08/30/24 11:44 Last Admin: 08/11/24 08:08 Dose: 40 mg Rosuvastatin Calcium (Rosuvastatin Calcium 20 Mg Tab) 40 mg PO HS [facility] Stop: 08/30/24 20:59 Last Admin: 08/10/24 20:52 Dose: 40 mg Sodium Chloride (Sodium Chloride 0.65% Na Soln 45 Ml (Leslie)) 1 sprays NA TID [facility] Stop: 09/07/24 20:59 Last Admin: 08/11/24 14:03 Dose: 1 sprays Tamsulosin HCl (Tamsulosin Hcl 0.4 Mg Cap) 0.4 mg PO HS [facility] Stop: 08/30/24 20:59 Last Admin: 08/10/24 20:52 Dose: 0.4 mg Torsemide (Torsemide 20 Mg Tab) 40 mg PO QAM [facility] Stop: 09/10/24 08:59 Last Admin: 08/11/24 08:08 Dose: 40 mg Vitamin D (Cholecalciferol 125 Mcg (5,000 Units) Tab) 125 mcg PO DAILY [facility] Stop: 08/30/24 11:44 Last Admin: 08/11/24 08:08 Dose: 125 mcg (6) Hyperlipidemia Hyperlipidemia type: unspecified Qualified Code(s): E78.5 - Hyperlipidemia, unspecified (7) CAD (coronary artery disease) Coronary Disease-Associated Artery/Lesion type: unspecified vessel or lesion type [place] vs. transplanted heart: [place] heart Associated angina: unspecified whether angina present Qualified Code(s): I25.10 - Atherosclerotic heart disease of [place] coronary artery without angina pectoris
[2024-08-12 06:41] LABS: Hematocrit (blood only) 29.3 % (42.0-52.0); Hemoglobin 8.4 g/dl (14.0-18.0); Mean Corpuscular Hemoglobin 24.1 pg (25.0-34.0); Mean Corpuscular Hgb Conc 28.7 g/dL (32.0-36.0); Mean Corpuscular Volume 84.2 fL (80.0-100.0); Platelet Count 243 K/uL (130-400); RDW Coefficient of Variation 23.2 % (11.5-14.5); RDW Standard Deviation 69.8 fL (36.4-46.3); Red Blood Count 3.48 M/uL (4.70-6.10); White Blood Count 7.85 K/ul (4.8-10.8)
[2024-08-12 07:14] LABS: BUN Creatinine Ratio 26.8 (10-20); Calcium 8.9 mg/dl (8.6-10.3); Creatinine Clr Calc Pharmacy 64.7 ml/min; Magnesium 2.3 mg/dl (1.7-2.4); Potassium 3.8 mmol/L (3.5-5.1)
[2024-08-12 08:13] VITALS: O2SAT 94
--- NOTE | 2024-08-12 09:12 | Discharge Summary ---
Date of Service August 12, 2024 Admission HPI Per Admitting Provider Rafael Cantu is a 69y/o M with PMHx significant for severe aortic stenosis s/p TAVR on 06/19/24, chronic LBBB, Mobitz type 2 second degree AV block s/p pacemaker placement on 07/02/24 with postoperative course complicated by episodes of sustained ventricular tachycardia requiring upgrade to an ICD on 07/04/24, HTN, HLD, mild nonobstructive CAD, DMII with diabetic nephropathy, REMBERTO on CPAP, pulmonary emphysema, longstanding iron deficiency anemia, BPH with LUTS, benign paroxysmal vertigo, glaucoma of both eyes, depression, GERD and generalized osteoarthritis who presented to the ED via EMS with complaints of fever, chills and generalized weakness. History obtained from the patient, discussion with ED provider and associated chart review. Patient seen at bedside in the ED with Dr. Mullins. Endorses chills and generalized weakness since this past Tuesday. He has been feeling so weak to the point where he becomes extremely fatigued with minimal exertion. Mentions that he was so weak Tuesday evening that he could not even ambulate to the restroom and was unfortunately incontinent of his urine. Reports having fevers at home as well. Has also been experiencing dysuria and increased urinary frequency. Also endorsing malodorous urine, however he has not hydrating or eating well since Tuesday due to not feeling well. No hematuria. Denies any abdominal pain or diarrhea. Has not had a bowel movement since Tuesday. No reported headaches or neck stiffness. No increase in leg swelling. Denies any bodily wounds or open sores. No erythema, pain to palpation or drainage from his pacemaker/ICD insertion site on the right upper aspect of his chest; mentions this area seems to be healing well. No alcohol or tobacco use. No recreational drug use. Meets severe sepsis criteria on admission given evidence of HR > 90, temp > 38C, leukocytosis, suspected source of infection and lactic acidosis. CXR unremarkable. Initial laboratory evaluation reviewed. WBC count 12.38k with neutrophilic predominance. Thrombocytopenic with platelet count of 118k. Chronic anemia with baseline Hgb around 7-9. Lactic acidosis with initial lactate of 4.1, repeat lactate of 2.1 s/p 2L NSS in the ED. Procalcitonin 2.27; UA without overt evidence of infection. RVP negative. Noted to be hyponatremic with sodium level of 131, suspect due to poor oral intake. Hyperglycemic with BSG of 236. Elevated troponin with initial level of 31.9, repeat level of 30.7. Follows with [facility] as an outpatient. TTE most recently performed on 07/19/24 with the following findings: normal LV cavity size, moderately increased concentric LV wall thickness, normal LV wall motion, LVEF of 55 to 59%, grade I DD, trivial paravalvular AV prosthesis regurgitation, borderline enlarged aortic root, mildly enlarged proximal ascending thoracic aorta and moderate mitral regurgitation. Admission Exam Per Admitting Provider On exam, head to toe exam revealed no wounds, clear to auscultation lungs bilaterally, tachycardic, regular rhythm, systolic murmur on aortic valve consistent with TAVR. 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 Enterococcus bacteremia Discharge Exam General Appearance: Obese M, no apparent distress Head: normocephalic, Atraumatic Eyes: normal inspection, EOMI Neck: supple Respiratory/Chest: Decreased breath sounds, CTA, No accessory muscle use Cardiovascular: regular, no murmur Abdomen/GI: Soft, Non tender, Bowel sounds present Extremities/Musculoskeletal: normal inspection, + mild edema, right upper extremity swelling, erythema, tender - much improved now/ resolved Neurologic/Psych: AAOX3, grossly no focal neurological deficits Skin: normal color, warm Discharge Data Allergies Allergy/AdvReac Type Severity Reaction Status Date / Time nickel Allergy Unknown RASH Verified 07/04/24 15:10 tetanus toxoid, adsorbed Allergy Unknown ITCHING Verified 07/04/24 15:10 empagliflozin AdvReac Unknown URINARY Verified 07/04/24 15:10 [From Jardiance] TRACT INFECTION lisinopril AdvReac Unknown Cough Verified 07/04/24 15:10 polyethylene glycol 3350 AdvReac Unknown Verified 07/04/24 15:10 [From Miralax] Consultations 07/31/24 09:50 ED Decision to Admit Stat 07/31/24 12:04 Consult Cardiology Routine 08/01/24 08:00 Consult Infectious Diseases Routine 08/01/24 10:28 Consult Anesthesiology Routine 08/06/24 08:00 Consult Orthopedic Spine Surgery Routine Procedures Performed Operation Date: 08/03/24 13:00 Actual Procedures s ICD Lead Extraction - Divya Nation DO s Lead, Extraction Dual Pacing - Divya Nation DO p ICD Removal - Divya Nation DO Ordered Studies 07/31/24 10:43 CT abd pelvis IV con only Stat FINDINGS: Pacer leads are partially imaged. There is mild interlobular septal thickening. No pneumatosis, free air or portal venous gas is present. Mild hepatosplenomegaly is unchanged. There are no hepatic lesions. There is no biliary or pancreatic ductal dilatation. Bilateral perinephric fluid is unchanged. There is no hydronephrosis. Nephrograms are symmetric. No peripancreatic or pericholecystic infiltration is present. No abdominal or pelvic lymphadenopathy. Caliber and wall thickness of small and large bowel are normal. There is sigmoid diverticulosis without evidence for acute diverticulitis. The appendix is normal. No fluid collections are identified. Multilevel degenerative changes within lumbar spine are similar in appearance to prior CT. No areas of bony erosion are identified. IMPRESSION: 1. No acute process within the abdomen or pelvis. 2. No bowel obstruction. No bowel wall thickening. Sigmoid diverticulosis. No evidence for acute diverticulitis. 3. Mild hepatosplenomegaly, unchanged. 4. Mild interstitial pulmonary edema. CT chest diagnostic w con Stat IMPRESSION: 1. No evidence of abscess adjacent to the pacemaker battery. No pericardial e ffusion. 2. Mild mediastinal lymphadenopathy. No other acute findings seen. 3. Emphysema with no pneumonia or pleural effusion. There are a few small pulmonary nodules for which follow-up chest CT is suggested in one year. 08/02/24 18:02 US venous doppler UE RT Stat Impression: 1. Superficial venous thrombosis involving the right cephalic vein 2. No evidence of right arm deep venous thrombosis 08/03/24 07:15 EP Lab Images for PACS ONCE 08/04/24 01:58 CT angio chest PE protocol Stat IMPRESSION: 1. No evidence of pulmonary embolism. 2. Stable dilated main pulmonary artery. 3. Interval development of bilateral pleural effusion and smooth interlobular septal thickening in bilateral lungs, predominantly in bilateral upper lobes and smooth fissural thickening-- Likely changes of Pulmonary edema. 4. Stable Centrilobular emphysematous changes in bilateral upper lobes. 5. Interval mild increase in size of mediastinal lymph nodes. 08/05/24 08:22 MR lumbar spine wo/w con Routine Conus is located at the level of L1. Severe disc space narrowing at T12-L1, L1-L2 and L2-L3. Moderate narrowing at L3-L4. At L1-2 there is disc bulge resulting in mild central stenosis in the left paracentral region. There is mild left foraminal stenosis. There is moderate bilateral facet arthropathy more severe on the left side. Right foramen is patent. At L2-L3 there is generalized disc bulging resulting in mild central stenosis. No foraminal stenosis. There is moderate facet arthropathy with fluid in the joint space. At L3 L4 there is generalized disc bulging resulting in moderate central stenosis. There is moderate facet arthropathy with fluid in the joint space. There is mild right foraminal stenosis. At L4-5 there is no central or foraminal stenosis. There is moderate facet arthropathy. At L5-S1 there is minimal anterolisthesis of L5. No significant central or foraminal stenosis. There is moderate to severe facet arthropathy. Suspicion of presence of bilateral spondylolysis. Following injection of contrast material no evidence of pathologic enhancement. Impression Degenerative changes. Hospital Course (1) Severe sepsis: Rafael Cantu is a 69y/o M with PMHx significant for severe aortic stenosis s/p TAVR on 06/19/24, chronic LBBB, Mobitz type 2 second degree AV block s/p pacemaker placement on 07/02/24 with postoperative course complicated by episodes of sustained ventricular tachycardia requiring upgrade to an ICD on 07/04/24, HTN, HLD, mild nonobstructive CAD, DMII with diabetic nephropathy, REMBERTO on CPAP, pulmonary emphysema, longstanding iron deficiency anemia, BPH with LUTS, benign paroxysmal vertigo, glaucoma of both eyes, depression, GERD and generalized osteoarthritis who presented to the ED via EMS with complaints of fever, chills and generalized weakness. Patient with recent invasive cardiac procedures including TAVR on 06/19/24 for severe and pacemaker placement on 07/02/24 with postoperative course complicated by episodes of sustained ventricular tachycardia requiring upgrade to an ICD on 07/04/24. 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 EF 55 to 60%. Moderate concentric LVH. TAVR bioprosthesis is present. No significant bioprosthetic aortic valve regurgitation. Gradient is normal for prosthetic arctic valve. Moderate mitral annular calcification. Mild tricuspid regurgitation. Estimated systolic blood pressure 43 mmHg. No evidence of vegetation within the limitations of imaging modality. --S/P ADOLFO: Mobile echodensity) to the ICD lead as it transverses through the right atrium. Imaging consistent with vegetation or thrombus. Left atrium is moderately dilated. No thrombus detected in the left atrial appendage. Lactic acidosis resolved with IV fluids --S/P ICD extraction by on 08/03/24 Continue antibiotics: vancomycin, cefepime, gentamicin>> transitioned to Rocephin, ampicillin Appreciate cardiology, infectious disease input Would likely need 6 weeks of antibiotic course from first negative blood cultures. Confirmed with infectious disease on 08/06/2024 PICC line placed on 08/09/2024 Monitor volume status, on po torsemide 40 mg daily now, as per cardiology Assure Vest arranged Per ID 1.Continue CTX 2 gm iv q12 hours and ampicillin 2 gm iv q4 hours (or 12 gm/24 hours continuous infusion) to complete total 6 weeks from 08/03 to 09/13/24 2.Check CBC w/ diff and CMP while on abx therapy 3.The patient will need f/u w/ outpatient ID clinic w/in 4-6 weeks ------ Per cardiology -patient is stable from a cardiac perspective. -Continue Torsemide 40mg by mouth daily to maintain optimal fluid balance as patient will be receiving a significant amount of IV antibiotics over the course of the next few weeks -Close OP lab monitoring -Assure wearable defibrillator to be worn at time of discharge -Continue Eliquis 5mg PO BID. H/H stable, no bleeding concerns. 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 Patient has been receiving IV Venofer as outpatient Currently no signs of bleeding Anemia workup reviewed Needs follow-up with hematology on discharge Received IV Venofer Leukopenia, thrombocytopenia resolved Hemoglobin been 8-9 Monitor CBC No bleeding issues currently Atrial flutter with rapid ventricular response--POA ICD interrogation Currently no ICD as above IV amiodarone discontinued Continue amiodarone, metoprolol Given stable hemoglobin, thrombocytopenia resolved-- started anticoagulation with Eliquis, per cardiology Appreciate cardiology input Right cephalic vein thrombosis Likely due to IV line placement IV line removed previous hospitalist discussed with on 08/03/2024: Recommends to avoid any systemic anticoagulation at that time Clinically improving Cardiology started patient on Eliquis as above Back pain likely due to dextroscoliosis, spondylolisthesis --Lumbar spine x-ray: Moderately severe dextroscoliosis. Severe degenerative spondylosis with probable elements of spinal stenosis through the mid and lower lumbar spine. Spondylolysis with grade 1 spondylolisthesis of L5 on S1. -- Sacrum/coccygeal x-ray:Spondylolysis with grade 1 spondylolisthesis of L5-S1. Otherwise negative for acute bony abnormality. --MRI Lumbar Spine:Degenerative changes. -- Minimize IV narcotics as able has tendency to develop constipation Bowel regimen as needed Appreciate orthopedics input: Conservative management for now PT/OT (2) Elevated troponin: Likely demand ischemia secondary to sepsis, atrial flutter RVR (3) History of transcatheter aortic valve replacement (TAVR): Severe s/p TAVR performed on 06/19/24 at [facility]. Follows with [facility] as an outpatient. (4) Hyponatremia: Resolved with IV fluids Monitor sodium levels, now pt diuresed (5) Thrombocytopenia: Likely secondary to sepsis Currently no acute bleeding issues Resolved Monitor (6) Hyperlipidemia: Continue statin (7) CAD (coronary artery disease): Continue aspirin, metoprolol, statin (8) History of sustained ventricular tachycardia: (9) S/P ICD (internal cardiac defibrillator) procedure: Mobitz type 2 second degree AV block s/p pacemaker placement on 07/02/24 with postoperative course complicated by episodes of sustained ventricular tachycardia requiring upgrade to an ICD on 07/04/24. Other Chronic Medical Conditions: REMBERTO - Continue CPAP HS. 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 You will need to finish IV antibiotics - ceftriaxone and ampicillin - EOT 09/13/2024 Take your medications as prescribed. If you have any questions about your medications, please contact and discuss with your health care providers. 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 - If you can, also try to check your blood sugar overnight (~2-4 am) a few times. - If blood sugar levels are reasonable before bed and trend upward/increase by morning, you are experiencing something we call the consuelo phenomenon. The consuelo phenomenon toni common cause of higher morning blood sugar levels in people with diabetes. During sleep, the body releases hormones such as growth hormone, cortisol, and glucagon.These hormones stimulate the liver to produce extra glucose overnight. When you have diabetes, your body often times cannot make extra insulin needed to help. To help improve morning blood sugar levels, your diabetes medications may need to be adjusted- discuss this further with your outpatient provider. You can also try experimenting with a small snack or no snack before bed to see if anything helps improve morning blood sugar levels: 1.) eat no snack x a few nights. 2.) eat a protein only snack (cheese or nuts or celery/peanut butter) x a few nights. 3.) eat a small carb/protein snack (6 club crackers/cheese or peanut butter or slice whole grain toast/peanut butter or small apple sliced/peanut butter, etc.) - If blood sugar levels are reasonable before bed and drop lower overnight but rebound higher by morning, you are experiencing something we call the somogyi effect. To prevent this from happening, your Glimepiride may need to be discontinued. Please discuss further with your outpatient provider. - If blood sugar levels are elevated at bedtime and remain elevated overnight, we need to adjust your evening meal (more non-starchy vegetables and protein and less carbs/starches) or add activity after evening meal to help improve morning blood sugar levels. Pending Studies at Discharge: No Stand-Alone Forms: My [facility] Skilled Items Patient informed of condition?: Yes DNR: Yes Discharge Level of Care: Skilled Communicable Disease: No Discharge Prognosis: Stable Lines: PICC Urinary Catheter: No Medications and DC Order Prescriptions: New Eliquis 5 mg Tablet 5 mg PO BID Qty: 60 0RF amiodarone 200 mg Tablet 200 mg PO BIDM Qty: 60 0RF torsemide 20 mg Tablet 40 mg PO QAM Qty: 60 0RF Advanced Probiotic 625 mg (10 billion cell) Capsule 1 cap PO DAILY Qty: 30 0RF guaifenesin [Mucinex] 600 mg Tablet Extended Release 12hr 600 mg PO Q12 Qty: 10 0RF docusate sodium 100 mg Capsule 100 mg PO BID Qty: 10 0RF tamsulosin 0.4 mg Capsule 0.4 mg PO HS Qty: 30 0RF aspirin [Children's Aspirin] 81 mg Tablet,Chewable 81 mg PO DAILY Qty: 30 0RF pantoprazole 40 mg Tablet,Delayed Release (Dr/Ec) 40 mg PO DAILY Qty: 30 0RF metoprolol succinate 50 mg Tablet Extended Release 24 Hr 50 mg PO QAM Qty: 30 0RF rosuvastatin 20 mg Tablet 40 mg PO HS Qty: 30 0RF acetaminophen [Tylenol Extra Strength] 500 mg Tablet 1,000 mg PO Q8H PRN (Reason: fever or pain) Qty: 10 0RF ceftriaxone 2 gram recon soln 2 g IV Q12H ampicillin sodium 2 gram recon soln 2 g IV Q4H Continued multivitamin Tablet 1 tab PO QAM Rx Instructions: otc unable to verify dutasteride 0.5 mg Capsule 0.5 mg PO QAM rosuvastatin 40 mg Tablet 40 mg PO HS tamsulosin 0.4 mg Capsule 0.4 mg PO HS timolol maleate 0.25 % drops 2 drp OPB DAILY latanoprost 0.005 % drops 1 drp OPB HS cyanocobalamin (vitamin B-12) [Vitamin B-12] 1,000 mcg Tablet 1,000 mcg PO DAILY pantoprazole 40 mg tablet,delayed release (DR/EC) 40 mg PO DAILY metoprolol succinate 50 mg Tablet Extended Release 24 Hr 50 mg PO QAM 30 Days Qty: 30 1RF oxycodone 5 mg Tablet 5 mg PO QID PRN (Reason: SEVERE PAIN) Qty: 15 0RF acetaminophen 500 mg Tablet 1,000 mg PO DIRECTED PRN (Reason: Pain) Qty: 0 ascorbic acid (vitamin C) [Vitamin C] 1,000 mg Tablet 1 g PO BID aspirin 81 mg Tablet,Chewable 81 mg PO DAILY folic acid 1 mg Tablet 1 mg PO DAILY cholecalciferol (vitamin D3) [Vitamin D3] 125 mcg (5,000 unit) Tablet 125 mcg PO DAILY metformin 1,000 mg Tablet 1,000 mg PO BID Qty: 30 0RF glimepiride 2 mg Tablet 2 mg PO QAM Qty: 30 0RF Discontinued furosemide 20 mg tablet 20 mg PO DAILY PRN (Reason: Weight Gain/Leg Swelling) amiodarone 200 mg tablet 200 mg PO DAILY Discharge Orders: Discharge Order (Routine); Ordered 08/12/24 Ordered By: Maximus Mcdaniel Admission Data Admit Date/Time: 07/31/24 10:42 Attending Provider: Maximus Mcdaniel Admit Provider: Renny Mullins Primary Care Provider: Declan Dejesus Other Providers: Renny Mullins; Good Crenshaw; Kevin Arellano; Sally Sauer; Parmjit Knight I.; Majro Littlejohn II; Nancy Mcgowan; Yonatan Martinez; Dre Torrez; Raj Palmer; Israel Paraad; Breann Bautista; Mattie Bhatia; Twila Leung; Lorraine James; Vasile Martins; Marcos Dawkins; Woody Ruth; Barry Day; Shara Mackey; Perico Erazo; Quinten Rosales; Ramez Akhtar; Ashley Henderson E; Yonatan Braun; Ly Braun; Luis Eduardo Douglas E; Beth Krause; Timmy David; Zina Singletary; Iva Hayes; Raza Meneses; Keshia Valdez; Dolly Knapp; Josseline Cornell; Lizzie Greene; Zhang Greene V; Jeremy Canada; Mattie Gibson; Armaan Escalera; Jocelynn Pro; Zhang Mancilla; Thai Henderson; Lucho Brownlee; Leann Andrews; Beba Mas; Zhang Granado; Gilberto Mays; Charity Monzon; Raghu Hernandez; Anisha Franco; Niharika Zepeda; Conor Anglin; Hansel Quick; Fabby Umana; Woody Herrera; Tequila Mendiola; Raul Lopez; Brayden Marcum; Baron Chadwick; Vasile Longoria Jr; Carola Muro; Jessica Hdez; Evy Rojas; Raza Bashir; Demetris Way; Jessica Mujica; Bay Best; Danyel Dahl; Barry Beckwith; Marco Werner; Sonja Hitchcock; Vandana García; Joelle Arenas; Mai Everett; Janene Madison; Kika Bright; Justin Yeh Jr; Cici Morocho; Keshia Peck; Lincoln Madera; [facility]ian[facility] [place]; [facility]; Washington Guido; Sonu Carl
[2024-08-12 11:47] VITALS: RESP 20; TEMP 98.2
[2024-08-12 11:56] VITALS: BP 111/68; PULSE 74
--- NOTE | 2024-08-13 14:58 | Operative Report ---
Post Operative Report DICTATED BY:Divya Nation D.O. DATE OF PROCEDURE: 08/03/2024 PREOPERATIVE DIAGNOSES: Bacteremia and IE POSTOPERATIVE DIAGNOSIS: Same PROCEDURE: A BiVentricular rate responsive permanent pacemaker explantation under fluoroscopic guidance. SURGEON: Divya Nation DO ASSISTANTS: None. ANESTHESIA: Monitored conscious sedation administered under my supervision by Barry Noonan Start time 15:10 end time 16:08, a total of 5 mg of Versed and 100 mcg of fentanyl. INTRAVENOUS FLUIDS: 0 mL. CONTRAST: None ANTIBIOTICS: 2 grams of Ancef. ADDITIONAL MEDICATIONS: None BLOOD LOSS: 20 mL. URINE OUTPUT: Not applicable. SPECIMENS: None. FINDINGS: See below. DRAINS: None. COMPLICATIONS: None. CONDITION: Stable. INDICATIONS: This is a 69-year-old gentleman who has a past medical history intermittent CHB s/p ppm 07/02/2024, LBBB, TAVR 06/19/2024, HTN, HLD, DM, S/p TKA, REMBERTO on CPAP, CAD mild non-obstructive disease, BPH, H?o AVM, iron deficiency anemia, emphysema, syncopal episode which correlated with VT as seen on his ppm interrogation s/p upgrade to a BiV ICD on 07/04/2024. He was admitted to the hospital a month after multiple cardiac procedures that where he was found to be bacteremic and ADOLFO suggested positive infective endocarditis on one of the leads probably the ICD lead in the area of the RA. He was recommended an upgrade to a BiV ICD. CONSENT: Consent was obtained prior to the patient going into the electrophysiology lab. The patient was informed of the risks, benefits, and alternatives to the procedure. Risks include, but not limited to, sudden cardiac , cardiac arrhythmias, cerebrovascular accident, myocardial infarction, injury to his blood vessels, chamber of the heart, bleeding and infection. The patient understood these risks and agreed to the procedure as planned. Informed consent was obtained. DESCRIPTION OF PROCEDURE: The patient was brought into electrophysiology lab in a fasting state. He was connected to continuous cardiac monitoring. A timeout was performed to ensure the patient's identity and procedure correctly. He was prepped and draped in the left infraclavicular space in normal surgical standard fashion. Monitored conscious sedation was given throughout the procedure for the patient's comfort level. [place] precautions were maintained throughout the procedure. Prophylactic antibiotics were given prior to incision. A 20 mL of 1% lidocaine and bupivacaine mixture were given in the prior surgical incision. The prior incision was opened with blunt dissection. There was no pus or discharge in the pocket to suggest active infection. The pocket was swapped with wound cultures x 1. Then the pacemaker was removed from the pocket and the leads were detached from the device. The suture sleeve sutures were then removed. Stylets were then placed down the lead. Then the screws of the lead were retracted. Then with romeo retraction the leads were extracted from the body under fluoroscopic guidance. The pocket was flushed with vancomycin and saline wash. Then the incision was closed in a normal 3 layer fashion. The incision was closed in a 3-layer fashion using 2-0 Vicryl interrupted suture, followed by 3-0 Vicryl interrupted suture, followed by 4-0 Monocryl. Primaseal dressing was placed. EQUIPMENT Explanted: 1. Pulse generator is a Winkler Model Number [id number] SN: [id number] implanted 07/04/2024 2. Right atrial lead, Winkler SJ [id number] SN: [id number] implanted 07/02/2024 3. Left bundle lead, Winkler [id number] SN: [id number] implanted 07/02/2024 IMPRESSION: Successful dual chamber rate responsive permanent pacemaker explant under fluoroscopic guidance due to bacteremia and IE, PLAN: Monitor the patient post-procedure. Return to telemetry. IV antibiotics per ID. keep dressing on and dry. follow up in our office upon discharge.
--- NOTE | 2024-08-14 14:38 | Coding Query ---
CODING QUERY To promote full compliance with coding requirements relating to patient care, provider participation is requested in all cases of snuff grinder and screener uncertainty. 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 ( x) Infective endocarditis on the ICD lead ( ) Other: Please specify Physician's Response(s): Thank you Iliana Peña Principal Diagnosis: "that condition established after study, to be chiefly responsible for occasioning the admission of the patient to the hospital for care." Co-Existing Principal Diagnosis: "when two or more diagnoses equally meet the criteria for principal diagnosis as determined by the circumstances of admission, diagnostic work up, and/or therapy provided, and the Alphabetic Index, Tabular List, or another coding guideline does not provide sequencing direction, any one of the diagnoses may be sequenced first." "When the physician has documented what appears to be a current diagnosis in the body of the record, but has not included the diagnosis in the final diagnostic statement, the physician should be asked whether the diagnosis should be added." (Source [facility]oding [facility] 2 QTR90. p3-4) JOSELYN
== END 2024-08-12 12:34 | DRG 314 ==
LOC: ED 07:09 → EDINP 10:41 → SUATTDRO 10:42 → 2S 11:19

== ENCOUNTER 2024-08-16 14:44 | Inpatient (IN) ==
--- NOTE | 2024-08-16 15:38 | Emergency Department Note ---
Impression & Plan Anemia ADMIT ED Provider Note HPI: History obtained from patient. The patient is a 69-year-old gentleman with history of atrial fibrillation, status post ICD with subsequent removal secondary to infection, history of TAVR, who presents the emergency department with a chief complaint of generalized weakness and fatigue for the past 3 days. Patient states he is currently at [facility] where he is recovering from septicemia and pacemaker removal about 3 weeks ago. Patient has a LifeVest in place. Patient denies any focal complaint of pain, he states in general he is just felt unwell and he has not been wanting to get out of bed and move very much. He states he has a diminished appetite. Patient denies any chest pain or shortness of breath, denies any headache, denies any abdominal pain, denies any nausea or vomiting. ROS: - Per HPI Differential Diagnosis: Symptomatic anemia, sepsis/infection, critical electrolyte abnormalities, acute dehydration/acute kidney injury, ACS, CHF, amongst other potential pathologies. *Outpatient medications and allergy history reviewed. PE: General: Alert, no acute distress HEENT: Normocephalic, trachea midline Eyes: Extraocular eye movement is intact, no scleral erythema Pulmonary: Clear to auscultation bilaterally, no wheezing Cardio: Regular rate and rhythm GI: Abdomen is soft to palpation : No suprapubic tenderness MSK: No evidence of trauma or malformation of the extremities, no edema, LifeVest in place across the torso Skin: No evidence of rash Neuro: Alert, no focal deficits Psychiatric: Cooperative INDEPENDENT INTERPRETATIONS: clinical research monitor: (As interpreted by myself): - An order was placed for continuous cardiac monitoring - Patient was noted to be in Atrial fibrillation with a rate of 90 EKG: (As interpreted by myself): Rate: 89 Rhythm: Atrial flutter Intervals: CT interval 208 ms, QTc 518 ms, otherwise within normal limits ST changes: No ST elevation Time: 1449 Chest x-ray: (As interpreted by myself): Trace bilateral pleural effusion Interventions provided in ED: -Packed red blood cell transfusion Medical Decision Making: IV was established and lab work obtained, patient was placed on surveillance monitor. Lab work shows no leukocytosis, hemoglobin is below baseline at 7.1, platelet count is normal, CMP does not show any evidence of any critical findings. Lactic acid is normal, troponin is negative x 1, procalcitonin is low. Urinalysis does not show any evidence of infection. Viral panel testing is negative. Patient has no fever, no leukocytosis, procalcitonin is low, lactic acid is normal. I have low suspicion for infection at this time. Given the patient's significant weakness with ambulation, I suspect that he is suffering from symptomatic anemia. Patient does have a history of chronic anemia secondary to iron deficiency, I think he would benefit from packed red blood cell transfusion and overnight observation admission. I discussed this with the patient and he was in agreement. Case was then discussed with the on-call providers for [facility] and the patient was placed for admission in stable condition to the hospitalist service. Consultants/Discussions held with other healthcare providers: -Hospitalist, Dr. Botello Disposition discussion held by myself with: -Patient Diagnosis: 1. Symptomatic anemia, acute Disposition: Admission Yonatan Parikh DO Emergency Medicine Past Med/Surg History Problem List (Updated 08/16/24 @ 21:56 by Yonatan Parikh DO) Atrial flutter Spondylolisthesis at L5-S1 level Endocarditis Enterococcal bacteremia Atrial flutter with rapid ventricular response S/P ICD (internal cardiac defibrillator) procedure History of sustained ventricular tachycardia CAD (coronary artery disease) History of transcatheter aortic valve replacement (TAVR) Hyponatremia Severe sepsis Elevated troponin (Acute) Elevated lactic acid level (Acute) Thrombocytopenia (Acute) Elevated procalcitonin (Acute) Leukocytosis (Acute) Fever (Acute) Generalized weakness (Acute) ICD (implantable cardioverter-defibrillator) in place Pacemaker Sustained ventricular fibrillation (Acute) Syncope and collapse (Acute) Chronic anemia Hypomagnesemia S/P TAVR (transcatheter aortic valve replacement) Ventricular tachycardia Syncope and collapse Aortic stenosis (Acute) Generalized weakness (Acute) Dizziness (Acute) Symptomatic severe aortic stenosis with normal ejection fraction Symptomatic anemia (Acute) Acute GI bleeding (Acute) Occult blood in stools Acute on chronic anemia Osteoarthritis of right knee Anemia (Acute) Medical History Aortic stenosis, severe BPH (benign prostatic hyperplasia) REMBERTO on CPAP Obesity Dyslipidemia HTN (hypertension) Diabetes mellitus, type II History of colon polyps BENIGN Scoliosis Osteoarthritis BPH (benign prostatic hyperplasia) GERD (gastroesophageal reflux disease) Not an issue recently Diabetes mellitus, type 2 Anemia Glaucoma RESOLVED S/P SURGICAL INTERVENTION Hyperlipidemia Sleep apnea CPAP, COMPLIANT. Surgical History History of tonsillectomy Hx of repair of rotator cuff "bilateral" History of total right knee replacement (TKR) History of cardiac cath ABNORMAL STRESS TEST IN 2017 - NO STENTS. 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) History of repair of rotator cuff RT/LEFT History of esophagogastroduodenoscopy (EGD) History of colonoscopy History of tooth extraction History of tonsillectomy History of adenoidectomy History of myringotomy Family History Grandmother (Maternal) Family history of diabetes mellitus Mother Family history of esophageal cancer Sister Family history of diabetes mellitus Social History Smoking Status: Former smoker Tobacco Type: Cigarettes Second Hand Exposure: No; Do You Dip or Chew Tobacco: No; Hx Alcohol Use: No Hx Substance Use: No Preferred Language: [place] Communication Ability: Effective Instrumentation Engineering Technician Required: No Beliefs That Will Affect Care: None marital status: Current Living Situation: Alone Current Living Situation Comment: currently in rehab facility Feels Safe at Home: Yes Assistive Devices: CPAP Allergies Allergies Allergy/AdvReac Type Severity Reaction Status Date / Time nickel Allergy Unknown RASH Verified 07/04/24 15:10 tetanus toxoid, adsorbed Allergy Unknown ITCHING Verified 07/04/24 15:10 empagliflozin AdvReac Unknown URINARY Verified 07/04/24 15:10 [From Jardiance] TRACT INFECTION lisinopril AdvReac Unknown Cough Verified 07/04/24 15:10 polyethylene glycol 3350 AdvReac Unknown Verified 07/04/24 15:10 [From Miralax] Home Meds Home Medications Medication Instructions Recorded Confirmed dutasteride 0.5 mg capsule 0.5 mg PO QAM 08/11/18 08/16/24 multivitamin 1 tab PO QAM 08/11/18 08/16/24 rosuvastatin 40 mg tablet 40 mg PO HS 08/11/18 08/16/24 timolol maleate 0.25 % eye drops 2 drp OPB QAM 11/02/23 08/16/24 ascorbic acid (vitamin C) 1,000 mg 1 g PO BID 07/02/24 08/16/24 tablet (Vitamin C) aspirin 81 mg chewable tablet 81 mg PO DAILY 07/02/24 08/16/24 cholecalciferol (vitamin D3) 125 125 mcg PO DAILY 07/02/24 08/16/24 mcg (5,000 unit) tablet (Vitamin D3) folic acid 1 mg tablet 1 mg PO DAILY 07/02/24 08/16/24 cyanocobalamin (vitamin B-12) 1,000 mcg PO DAILY 07/04/24 08/16/24 1,000 mcg tablet (Vitamin B-12) latanoprost 0.005 % eye drops 1 drp OPB HS 07/04/24 08/16/24 Saccharomyces boulardii 250 mg 250 mg PO DAILY 08/16/24 08/16/24 capsule acetaminophen 325 mg tablet 650 mg PO Q4 PRN Fever > 100.4 F 08/16/24 08/16/24 (Tylenol) Or Pain dapagliflozin propanediol 10 mg 10 mg PO DAILY 08/16/24 08/16/24 tablet (Farxiga) ferrous sulfate 325 mg (65 mg 325 mg PO DAILY 08/16/24 08/16/24 iron) tablet oxycodone 5 mg tablet 5 mg PO Q6 PRN SEVERE PAIN 08/16/24 08/16/24 pantoprazole 40 mg tablet,delayed 40 mg PO QAM 08/16/24 08/16/24 release sodium chloride 0.9 % 10 ml IV Q6H 08/16/24 08/16/24 torsemide 40 mg tablet 40 mg PO QAM 08/16/24 08/16/24 Previous Rx's Medication Instructions Recorded amiodarone 200 mg tablet 200 mg PO BIDM #60 tabs 08/12/24 ampicillin sodium 2 gram 2 g IV Q4H 08/12/24 intravenous solution apixaban 5 mg tablet (Eliquis) 5 mg PO BID #60 tabs 08/12/24 ceftriaxone 2 gram intravenous 2 g IV Q12H 08/12/24 solution docusate sodium 100 mg capsule 100 mg PO BID #10 caps 08/12/24 glimepiride 2 mg tablet 2 mg PO QAM #30 tabs 08/12/24 guaifenesin 600 mg tablet, 600 mg PO Q12 #10 tabs 08/12/24 extended release 12 hr (Mucinex) metformin 1,000 mg tablet 1,000 mg PO BID #30 tabs 08/12/24 metoprolol succinate 50 mg 50 mg PO QAM #30 tabs 08/12/24 tablet,extended release 24 hr tamsulosin 0.4 mg capsule 0.4 mg PO HS #30 caps 08/12/24 Results & Data (ED) Vital Signs Vital Signs - 24 hr 08/16/24 14:51 08/16/24 14:55 08/16/24 14:57 Temperature Temperature Source Pulse Rate 88 89 Pulse Rate from SpO2 Sensor 90 Respiratory Rate 17 Respiratory Depth Blood Pressure 121/74 Blood Pressure Mean 90 Pulse Oximetry 86 L Oxygen Delivery Method Sepsis Recent Fever Within 48 Hours Sepsis New/Unexplained Change in Mental Status Sepsis Action Taken by Nursing 08/16/24 15:00 08/16/24 15:03 08/16/24 15:03 Temperature 36.8 C Temperature Source Oral Pulse Rate 88 88 Pulse Rate from SpO2 Sensor 85 Respiratory Rate 18 21 Respiratory Depth Normal Blood Pressure 130/58 L 130/58 L Blood Pressure Mean 83 82 Pulse Oximetry 90 91 Oxygen Delivery Method Room Air Sepsis Recent Fever Within 48 Hours No Sepsis New/Unexplained Change in Mental Status No Sepsis Action Taken by Nursing No Action Required 08/16/24 15:30 08/16/24 15:30 08/16/24 15:45 Temperature Temperature Source Pulse Rate 88 88 Pulse Rate from SpO2 Sensor 90 Respiratory Rate 20 21 Respiratory Depth Blood Pressure 112/81 Blood Pressure Mean 97 Pulse Oximetry Oxygen Delivery Method Sepsis Recent Fever Within 48 Hours Sepsis New/Unexplained Change in Mental Status Sepsis Action Taken by Nursing 08/16/24 15:50 08/16/24 15:57 08/16/24 16:00 Temperature Temperature Source Pulse Rate 87 Pulse Rate from SpO2 Sensor 87 Respiratory Rate 20 Respiratory Depth Blood Pressure 108/67 100/62 Blood Pressure Mean 78 76 Pulse Oximetry 92 Oxygen Delivery Method Sepsis Recent Fever Within 48 Hours Sepsis New/Unexplained Change in Mental Status Sepsis Action Taken by Nursing 08/16/24 16:03 08/16/24 16:15 08/16/24 16:30 Temperature Temperature Source Pulse Rate 89 99 H Pulse Rate from SpO2 Sensor 89 83 Respiratory Rate 20 22 Respiratory Depth Blood Pressure 102/56 L Blood Pressure Mean 73 Pulse Oximetry 90 93 Oxygen Delivery Method Room Air Room Air Sepsis Recent Fever Within 48 Hours Sepsis New/Unexplained Change in Mental Status Sepsis Action Taken by Nursing 08/16/24 16:42 08/16/24 16:57 08/16/24 17:00 Temperature Temperature Source Pulse Rate 87 89 Pulse Rate from SpO2 Sensor 89 Respiratory Rate 18 21 Respiratory Depth Blood Pressure 93/68 L Blood Pressure Mean 76 Pulse Oximetry 93 Oxygen Delivery Method Room Air Sepsis Recent Fever Within 48 Hours Sepsis New/Unexplained Change in Mental Status Sepsis Action Taken by Nursing 08/16/24 17:17 08/16/24 17:21 08/16/24 17:30 Temperature Temperature Source Pulse Rate 81 Pulse Rate from SpO2 Sensor 85 Respiratory Rate 20 Respiratory Depth Blood Pressure 127/85 132/83 Blood Pressure Mean 110 89 Pulse Oximetry 92 Oxygen Delivery Method Room Air Sepsis Recent Fever Within 48 Hours Sepsis New/Unexplained Change in Mental Status Sepsis Action Taken by Nursing 08/16/24 17:30 Temperature Temperature Source Pulse Rate 85 Pulse Rate from SpO2 Sensor 89 Respiratory Rate 17 Respiratory Depth Blood Pressure Blood Pressure Mean Pulse Oximetry 95 Oxygen Delivery Method Room Air Sepsis Recent Fever Within 48 Hours Sepsis New/Unexplained Change in Mental Status Sepsis Action Taken by Nursing Laboratory Data 08/16/24 21:35 08/16/24 14:55 Lab Results 08/16/24 08/16/24 08/16/24 Range/Units 14:55 15:41 17:02 WBC 9.26 (4.8-10.8) K/ul RBC 2.86 L (4.70-6.10) M/uL Hgb 7.1 L (14.0-18.0) g/dl Hct 24.1 L (42.0-52.0) % MCV 84.3 (80.0-100.0) fL MCH 24.8 L (25.0-34.0) pg MCHC 29.5 L (32.0-36.0) g/dL RDW Std Deviation 71.7 H (36.4-46.3) fL RDW Coeff of Freddie 23.4 H (11.5-14.5) % Plt Count 277 (130-400) K/uL MPV 10.7 (9.4-12.4) fL Immature Gran % (Auto) 0.4 % Neut % (Auto) 84.7 % Lymph % (Auto) 5.9 % [place] % (Auto) 5.9 % Eos % (Auto) 1.9 % Baso % (Auto) 1.2 % Neut # (Auto) 7.83 H (1.40-6.50) K/uL Lymph # (Auto) 0.55 L (1.20-3.40) K/uL [place] # (Auto) 0.55 (0.11-0.59) K/uL Eos # (Auto) 0.18 (0.00-0.50) K/uL Baso # (Auto) 0.11 (0.00-0.20) K/uL Immature Gran # (Auto) 0.04 (0.01-0.20) K/uL Polychromasia 1+ Anisocytosis Present Sodium 142 (136-145) mmol/L Potassium 3.6 (3.5-5.1) mmol/L Chloride 101 (98-107) mmol/L Carbon Dioxide 31 (21-32) mmol/L Anion Gap 10 (3-11) BUN 35 H (6-23) mg/dl Creatinine 1.27 (0.6-1.4) mg/dl Est Cr Clr Drug Dosing 62.4 ml/min eGFR 60.40 BUN/Creatinine Ratio 27.6 H (10-20) Glucose 149 H (70-99(Fasting)) mg/dl Lactate 1.5 (0.4-2.0) mmol/L Calcium 9.5 (8.6-10.3) mg/dl Magnesium 1.9 (1.7-2.4) mg/dl Total Bilirubin 0.5 (0.2-1.0) mg/dl Direct Bilirubin 0.1 (0-0.2) mg/dl AST 15 (13-39) U/L ALT 17 (7-52) U/L Alkaline Phosphatase 80 (34-104) U/L Troponin I High Sens 6.6 (0-20) pg/ml Total Protein 6.9 (6.0-8.3) gm/dl Albumin 3.8 (3.4-5.0) gm/dl Procalcitonin 0.13 (0-0.5) ng/ml SARS-CoV-2 (PCR) NEGATIVE (Negative) Influenza Type A (PCR) Negative (Neg) Influenza Type B (PCR) Negative (Neg) RSV (RT-PCR) Negative (Neg) Blood Type AB Positive Antibody Screen NEGATIVE Crossmatch See Detail Imaging Data Radiologist's Impression: Chest X-Ray 08/16/24 15:28 XR chest 1V portable CLINICAL HISTORY: weak COMPARISON STUDY: 08/09/2024 FINDINGS: There is minimal blunting of the costophrenic angles bilaterally suggesting small effusions. The findings are otherwise unchanged demonstrating a chronic cardiomegaly with pulmonary vascular congestion. There is no focal airspace opacity. There is no pneumothorax. A right arm PICC line is identified with the tip near the cavoatrial junction. A prosthetic aortic valve is noted. IMPRESSION: Suspect new development of trace pleural effusions bilaterally; no additional changes since the prior study. ACT 112: Negative or not required by law. Electronically signed by: Nohemy Lind M.D. 08/16/2024 3:57 PM Discharge Plan Visit Data Chief Complaint: Weakness Stated Complaint: WEAKNESS, LETHARGIC ED Provider: Yonatan Parikh Discharge Problem: Anemia Patient Disposition: Admitted As Inpatient Discharge Instructions Interventions: ED Discharge Assessment Last Done: 08/16/24 20:12
[2024-08-16 15:55] LABS: Basophils # (auto) 0.11 K/uL (0.00-0.20); Basophils % (auto) 1.2 %; Eosinophils # (auto) 0.18 K/uL (0.00-0.50); Eosinophils % (auto) 1.9 %; Hematocrit (blood only) 24.1 % (42.0-52.0); Hemoglobin 7.1 g/dl (14.0-18.0); Immature Granulocytes # (auto) 0.04 K/uL (0.01-0.20); Immature Granulocytes % (auto) 0.4 %; Lymphocytes # (auto) 0.55 K/uL (1.20-3.40); Lymphocytes % (auto) 5.9 %; Mean Corpuscular Hemoglobin 24.8 pg (25.0-34.0); Mean Corpuscular Hgb Conc 29.5 g/dL (32.0-36.0); Mean Corpuscular Volume 84.3 fL (80.0-100.0); Mean Platelet Volume 10.7 fL (9.4-12.4); Monocytes # (auto) 0.55 K/uL (0.11-0.59); Monocytes % (auto) 5.9 %; Neutrophils # (auto) 7.83 K/uL (1.40-6.50); Neutrophils % (auto) 84.7 %; Platelet Count 277 K/uL (130-400); RDW Coefficient of Variation 23.4 % (11.5-14.5); RDW Standard Deviation 71.7 fL (36.4-46.3); Red Blood Count 2.86 M/uL (4.70-6.10); White Blood Count 9.26 K/ul (4.8-10.8)
--- NOTE | 2024-08-16 15:59 | XRay Report ---
XR chest 1V portable CLINICAL HISTORY: weak COMPARISON STUDY: 08/09/2024 FINDINGS: There is minimal blunting of the costophrenic angles bilaterally suggesting small effusions . The findings are otherwise unchanged demonstrating a chronic cardiomegaly with pulmonary vascular c ongestion. There is no focal airspace opacity. There is no pneumothorax. A right arm PICC line is gonzález ntified with the tip near the cavoatrial junction. A prosthetic aortic valve is noted. IMPRESSION: Suspect new development of trace pleural effusions bilaterally; no additional changes si nce the prior study. ACT 112: Negative or not required by law. Electronically signed by: Nohemy Lind M.D. 08/16/2024 3:57 PM
[2024-08-16 16:09] LABS: Albumin Level 3.8 gm/dl (3.4-5.0); BUN Creatinine Ratio 27.6 (10-20); Bilirubin Direct 0.1 mg/dl (0-0.2); Bilirubin,Total 0.5 mg/dl (0.2-1.0); Calcium 9.5 mg/dl (8.6-10.3); Creatinine Clr Calc Pharmacy 62.4 ml/min; Magnesium 1.9 mg/dl (1.7-2.4); Potassium 3.6 mmol/L (3.5-5.1); Total Protein 6.9 gm/dl (6.0-8.3)
[2024-08-16 16:14] LABS: Troponin I High Sensitivity 6.6 pg/ml (0-20)
--- NOTE | 2024-08-16 16:19 | Electrocardiogram Report ---
Test Reason : Blood Pressure : */* mmHG Vent. Rate : 89 BPM Atrial Rate : 89 BPM P-R Int : 208 ms QRS Dur : 110 ms QT Int : 426 ms P-R-T Axes : * -40 43 degrees QTcB Int : 518 ms Atrial flutter Left anterior fascicular block Left ventricular hypertrophy with repolarization abnormality Prolonged QT Abnormal ECG When compared with ECG of 07-Aug-2024 07:45, Left bundle branch block is no longer Present Confirmed by Dixon Moreno ([id number]) on 08/16/2024 4:19:02 PM Referred By: Confirmed By: Dixon Moreno
[2024-08-16 16:23] LABS: Anisocytosis Present; Polychromasia 1+
[2024-08-16 16:27] LABS: Influenza A virus by PCR Negative (Neg); Influenza B virus by PCR Negative (Neg); RSV by PCR Negative (Neg); SARS CoV2 RNA(COVID-19) Ceph NEGATIVE (Negative)
[2024-08-16] MEDS ORDERED: SODIUM CHLORIDE 0.9% 100 ML IV PRN (16:33)
--- NOTE | 2024-08-16 17:33 | History & Physical Report ---
Date of Service August 16, 2024 Assessment & Plan (1) Generalized weakness: (2) Anemia: Plan Rafael Cantu is a 69y/o M with PMHx significant for severe aortic stenosis s/p TAVR on 06/19/24, chronic LBBB, Mobitz type 2 second degree AV block s/p pacemaker placement on 07/02/24 with postoperative course complicated by episodes of sustained ventricular tachycardia requiring upgrade to an ICD on 07/04/24, HTN, HLD, mild nonobstructive CAD, DMII with diabetic nephropathy, REMBERTO on CPAP, pulmonary emphysema, longstanding iron deficiency anemia, BPH with LUTS, benign paroxysmal vertigo, glaucoma of both eyes, depression, GERD and generalized osteoarthritis. Patient with recent invasive cardiac procedures including TAVR on 06/19/24 for severe and pacemaker placement on 07/02/24 with postoperative course complicated by episodes of sustained ventricular tachycardia requiring upgrade to an ICD on 07/04/24. Pt with recent admission and prolonged course with infected pacemaker, bacteremia, endocarditis and subsequent removal of the pacemaker on 08/13/24. Currently has Lifevest in place. He is admitted and being treated for the following: Generalized weakness Acute on chronic Anemia Symptomatic anemia Possible GI Bleed Pt presenting from acute rehab with concerns for progressing weakness Noted hgb drop from 9 range to 7.1 on admission Pt noting multiple episodes of black/bloody stools FOBT pending AM anemia panel pending (iron studies, folate and b12) s/p 1U pRBCs in the ED, repeat H/h pending PT/OT Holding home Eliquis, resume as soon as able. Consider cardiology consult for further anticoag recs GI consulted, appreciate further recs Consider hematology consult Hx of TAVR Hx of pacemaker placement with subsequent removal LifeVest in place HTN CAD EKG noting atrial flutter Trop x 1 wnl, continue trend Consider cardiology consult Holding home torsemide in setting of possible GI bleed and lower blood pressures, resume as able Continue other home cardiac meds including metoprolol Holding home elqiuis as noted above in setting of anemia and possible GI bleed requiring transfusion telemetry monitoring Bacteremia Endocarditis Per ID : "Continue CTX 2 gm iv q12 hours and ampicillin 2 gm iv q4 hours (or 12 gm/24 hours continuous infusion) to complete total 6 weeks from 08/03 to 09/13/24" Continue other home meds as ordered Diet: clears, NPO after midnight for GI eval DVT prophylaxis: SCDs Dispo: admit to PCU/tele History of Present Illness Chief Complaint: weakness Primary Care Provider: MD Rafael Shay is a 69y/o M with PMHx significant for severe aortic stenosis s/p TAVR on 06/19/24, chronic LBBB, Mobitz type 2 second degree AV block s/p pacemaker placement on 07/02/24 with postoperative course complicated by episodes of sustained ventricular tachycardia requiring upgrade to an ICD on 07/04/24, HTN, HLD, mild nonobstructive CAD, DMII with diabetic nephropathy, REMBERTO on CPAP, pulmonary emphysema, longstanding iron deficiency anemia, BPH with LUTS, benign paroxysmal vertigo, glaucoma of both eyes, depression, GERD and generalized osteoarthritis. Patient with recent invasive cardiac procedures including TAVR on 06/19/24 for severe and pacemaker placement on 07/02/24 with postoperative course complicated by episodes of sustained ventricular tachycardia requiring upgrade to an ICD on 07/04/24. Pt with recent admission and prolonged course with infected pacemaker, bacteremia, endocarditis and subsequent removal of the pacemaker on 08/13/24. Currently has Lifevest in place. States that for the past 4 days he has been having increasing weakness with ambulation, unable to ambulate as far as he typically would. 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 feels very tired. Notes he has been having bloody bowel movements for some time. Denies associated SOB or chest pain. States he was evaluated at his rehab facility and advised to present to the ED for further evaluation. Allergies Allergy/AdvReac Type Severity Reaction Status Date / Time nickel Allergy Unknown RASH Verified 07/04/24 15:10 tetanus toxoid, adsorbed Allergy Unknown ITCHING Verified 07/04/24 15:10 empagliflozin AdvReac Unknown URINARY Verified 07/04/24 15:10 [From Jardiance] TRACT INFECTION lisinopril AdvReac Unknown Cough Verified 07/04/24 15:10 polyethylene glycol 3350 AdvReac Unknown Verified 07/04/24 15:10 [From Miralax] Home Medications Medication Instructions Recorded Confirmed Type dutasteride 0.5 mg capsule 0.5 mg PO QAM 08/11/18 08/16/24 History multivitamin 1 tab PO QAM 08/11/18 08/16/24 History rosuvastatin 40 mg tablet 40 mg PO HS 08/11/18 08/16/24 History timolol maleate 0.25 % eye drops 2 drp OPB QAM 11/02/23 08/16/24 History ascorbic acid (vitamin C) 1,000 mg 1 g PO BID 07/02/24 08/16/24 History tablet (Vitamin C) aspirin 81 mg chewable tablet 81 mg PO DAILY 07/02/24 08/16/24 History cholecalciferol (vitamin D3) 125 125 mcg PO DAILY 07/02/24 08/16/24 History mcg (5,000 unit) tablet (Vitamin D3) folic acid 1 mg tablet 1 mg PO DAILY 07/02/24 08/16/24 History cyanocobalamin (vitamin B-12) 1,000 mcg PO DAILY 07/04/24 08/16/24 History 1,000 mcg tablet (Vitamin B-12) latanoprost 0.005 % eye drops 1 drp OPB HS 07/04/24 08/16/24 History amiodarone 200 mg tablet 200 mg PO BIDM #60 tabs 08/12/24 08/16/24 Rx ampicillin sodium 2 gram 2 g IV Q4H 08/12/24 08/16/24 Rx intravenous solution apixaban 5 mg tablet (Eliquis) 5 mg PO BID #60 tabs 08/12/24 08/16/24 Rx ceftriaxone 2 gram intravenous 2 g IV Q12H 08/12/24 08/16/24 Rx solution docusate sodium 100 mg capsule 100 mg PO BID #10 caps 08/12/24 08/16/24 Rx glimepiride 2 mg tablet 2 mg PO QAM #30 tabs 08/12/24 08/16/24 Rx guaifenesin 600 mg tablet, 600 mg PO Q12 #10 tabs 08/12/24 08/16/24 Rx extended release 12 hr (Mucinex) metformin 1,000 mg tablet 1,000 mg PO BID #30 tabs 08/12/24 08/16/24 Rx metoprolol succinate 50 mg 50 mg PO QAM #30 tabs 08/12/24 08/16/24 Rx tablet,extended release 24 hr tamsulosin 0.4 mg capsule 0.4 mg PO HS #30 caps 08/12/24 08/16/24 Rx Saccharomyces boulardii 250 mg 250 mg PO DAILY 08/16/24 08/16/24 History capsule acetaminophen 325 mg tablet 650 mg PO Q4 PRN Fever > 100.4 F 08/16/24 08/16/24 History (Tylenol) Or Pain dapagliflozin propanediol 10 mg 10 mg PO DAILY 08/16/24 08/16/24 History tablet (Farxiga) ferrous sulfate 325 mg (65 mg 325 mg PO DAILY 08/16/24 08/16/24 History iron) tablet oxycodone 5 mg tablet 5 mg PO Q6 PRN SEVERE PAIN 08/16/24 08/16/24 History pantoprazole 40 mg tablet,delayed 40 mg PO QAM 08/16/24 08/16/24 History release sodium chloride 0.9 % 10 ml IV Q6H 08/16/24 08/16/24 History torsemide 40 mg tablet 40 mg PO QAM 08/16/24 08/16/24 History Past Med/Surg History Problem List (Updated 08/07/24 @ 15:41 by Conor Allen DO) Atrial flutter Spondylolisthesis at L5-S1 level Endocarditis Enterococcal bacteremia Atrial flutter with rapid ventricular response S/P ICD (internal cardiac defibrillator) procedure History of sustained ventricular tachycardia CAD (coronary artery disease) History of transcatheter aortic valve replacement (TAVR) Hyponatremia Severe sepsis Elevated troponin (Acute) Elevated lactic acid level (Acute) Thrombocytopenia (Acute) Elevated procalcitonin (Acute) Leukocytosis (Acute) Fever (Acute) Generalized weakness (Acute) ICD (implantable cardioverter-defibrillator) in place Pacemaker Sustained ventricular fibrillation (Acute) Syncope and collapse (Acute) Chronic anemia Hypomagnesemia S/P TAVR (transcatheter aortic valve replacement) Ventricular tachycardia Syncope and collapse Aortic stenosis (Acute) Generalized weakness (Acute) Dizziness (Acute) Symptomatic severe aortic stenosis with normal ejection fraction Symptomatic anemia (Acute) Acute GI bleeding (Acute) Occult blood in stools Acute on chronic anemia Osteoarthritis of right knee Anemia (Acute) Medical History Aortic stenosis, severe BPH (benign prostatic hyperplasia) REMBERTO on CPAP Obesity Dyslipidemia HTN (hypertension) Diabetes mellitus, type II History of colon polyps BENIGN Scoliosis Osteoarthritis BPH (benign prostatic hyperplasia) GERD (gastroesophageal reflux disease) Not an issue recently Diabetes mellitus, type 2 Anemia Glaucoma RESOLVED S/P SURGICAL INTERVENTION Hyperlipidemia Sleep apnea CPAP, COMPLIANT. Surgical History History of tonsillectomy Hx of repair of rotator cuff "bilateral" History of total right knee replacement (TKR) History of cardiac cath ABNORMAL STRESS TEST IN 2017 - NO STENTS. 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) History of repair of rotator cuff RT/LEFT History of esophagogastroduodenoscopy (EGD) History of colonoscopy History of tooth extraction History of tonsillectomy History of adenoidectomy History of myringotomy Family History Grandmother (Maternal) Family history of diabetes mellitus Mother Family history of esophageal cancer Sister Family history of diabetes mellitus Social History Smoking Status: Former smoker Tobacco Type: Cigarettes Second Hand Exposure: No; Do You Dip or Chew Tobacco: No; Hx Alcohol Use: No Hx Substance Use: No Preferred Language: Kuwaiti Communication Ability: Effective Building Mover Required: No Beliefs That Will Affect Care: None marital status: Current Living Situation: Alone Current Living Situation Comment: currently in rehab facility Feels Safe at Home: Yes Assistive Devices: CPAP Review of Systems Review of Systems: All systems reviewed & are unremarkable except as noted in Subjective Physical Exam Physical Exam: General: Alert, oriented. No acute distress Psych: Appropriate mood and affect HEENT: NC/AT CV: RRR, lifevest in place Resp: Breath sounds clear bilaterally, no increased effort of breathing Abdomen:Soft, nontender Extremities: trace edema in lower extremities bilaterally. Results & Data Results & Data Vital Signs (Past 12 Hours) Vital Signs Temp Pulse Resp BP Pulse Ox O2 Del Method 08/16/24 16:42 87 18 08/16/24 16:30 102/56 L 08/16/24 16:15 99 H 22 93 Room Air 08/16/24 16:03 89 20 90 Room Air 04/03/25 16:00 100/62 08/16/24 15:57 87 20 92 08/16/24 15:50 108/67 08/16/24 15:45 88 21 08/16/24 15:30 88 20 08/16/24 15:30 112/81 08/16/24 15:03 88 21 91 08/16/24 15:03 36.8 C 88 18 130/58 L 90 Room Air 08/16/24 15:00 130/58 L 08/16/24 14:57 89 17 86 L 08/16/24 14:55 88 08/16/24 14:51 121/74 Diagnostic Findings Chest X-Ray 08/16/24 15:28 XR chest 1V portable CLINICAL HISTORY: weak COMPARISON STUDY: 08/09/2024 FINDINGS: There is minimal blunting of the costophrenic angles bilaterally suggesting small effusions. The findings are otherwise unchanged demonstrating a chronic cardiomegaly with pulmonary vascular congestion. There is no focal airspace opacity. There is no pneumothorax. A right arm PICC line is identified with the tip near the cavoatrial junction. A prosthetic aortic valve is noted. IMPRESSION: Suspect new development of trace pleural effusions bilaterally; no additional changes since the prior study. ACT 112: Negative or not required by law. Electronically signed by: Nohemy Lind M.D. 08/16/2024 3:57 PM
[2024-08-16 18:24] LABS: Appearance Urine Clear (Clear); Bacteria Urine Automated None Seen (None Seen); Bilirubin Urine Negative (Negative); Blood Urine Negative (Negative); Color Urine Yellow; Epithelial Cell Urine Auto 0-2 /hpf (0-2); Glucose Urine UA 2+ (Negative); Ketones Urine Negative (Negative); Leukocyte Esterase Urine Negative (Negative); Nitrite Urine Negative (Negative); Protein Urine Trace (Negative); RBC Urine Automated 0-2 /hpf (0-2); Specific Gravity Urine 1.015 (1.000-1.030); Urobilinogen Urine Negative (Negative); WBC Urine Automated 0-5 /hpf (0-5)
[2024-08-16] MEDS ORDERED: oxyCODONE HCL IR 5 MG TAB (IMMEDIATE RELEASE) PO PRN (21:28)
[2024-08-16] MEDS ORDERED: AMPICILLIN SOD 1 GM VIAL IV SCH (21:28)
[2024-08-16] MEDS ORDERED: GLUCOSE 10 TAB/TUBE PO PRN (21:28)
[2024-08-16] MEDS ORDERED: GLUCAGON FOR INJ 1 MG VIAL SQ PRN (21:28)
[2024-08-16] MEDS ORDERED: CARBOHYDRATES FOR HYPOGLYCEMIA PO PRN (21:28)
[2024-08-16] MEDS ORDERED: DEXTROSE 50% 50 ML SYRINGE IV PRN (21:28)
[2024-08-16] MEDS ORDERED: GLUCOSE 40% GEL 15 GM TUBE PO PRN (21:28)
[2024-08-16 21:48] LABS: Hematocrit (blood only) 25.2 % (42.0-52.0); Hemoglobin 7.8 g/dl (14.0-18.0)
[2024-08-16] MEDS: INSULIN ASPART PER UNIT CHARGE SC SCH (22:16)
[2024-08-16] MEDS: TAMSULOSIN HCL 0.4 MG CAP PO SCH (22:23)
[2024-08-16] MEDS: ROSUVASTATIN CALCIUM 20 MG TAB PO SCH (22:23)
[2024-08-16] MEDS: ASCORBIC ACID 500 MG TAB PO SCH (22:23)
[2024-08-16] MEDS: DOCUSATE SODIUM 100 MG CAP PO SCH (22:23)
[2024-08-16] MEDS: guaiFENesin 600 MG TABCR PO SCH (22:23)
[2024-08-16] MEDS: AMPICILLIN 2,000 MG in SODIUM CHLOR 0.9% MINI-B 100 ML IV SCH (22:26)
[2024-08-16] MEDS: cefTRIAXone SODIUM 2,000 MG/50 ML BAG IV SCH (22:26)
[2024-08-16] MEDS: ACETAMINOPHEN 325 MG TAB PO PRN (22:55)
[2024-08-17] MEDS ORDERED: ATROPINE SULFATE 0.1 MG/ML 10ML SYR IV PRN (00:01)
[2024-08-17] MEDS: MAGNESIUM SULFATE / D5W 1 GM/100 ML BAG IV ONE (00:09)
[2024-08-17] MEDS: POTASSIUM CHLORIDE CRTAB 20 MEQ TABCR PO STA (00:10)
--- OUTSIDE RECORDS SUMMARY | 2024-08-17 02:54 | External Medical Summary | Summary of Care ---
Author Name Unknown Organization [facility] [address] [facility] [address] Phone [phone] Care Team Providers Care Breaker Mechanic Name Role Phone Declan Dejesus MD Primary Care Provider [phone] Reason for Visit * Reason Onset Date Comments No Show 08/09/2024 Encounter Details Date Type Department Care Team (Late st Contact Info) Description 08/09/2024 Telephone Hematology/Oncology [facility] [place] [address] [facility] [phone] Bruna Funk CRNP [address] [facility] [place] [address] No Show Allergies Active Allergy Reactions Criticality Noted Date Comments Empagliflozin 10/06/2020 Fungal infection, urinary frequency Lisinopril Cough Polyethylene Glycol Other (Please comment) Low 04/26/2024 Severe gas Nickel Rash 09/13/2011 Tetanus Toxoids Rash 09/13/2011 documented as of this encounter (statuses as of 08/15/2024) Medications MULTI VITAMIN MENS PO TABS one by mouth daily Active Glimepiride 2 MG Oral Tablet (Amaryl) TAKE ONE TABLET BY MOUTH DAILY WITH BREAKFAST 90 Tablet 3 08/13/2024 10:24 AM EDT 11/21/19 24 Active Latanoprost 0.005 % Ophthalmic Solution (Xalatan) Instill 1 drop into both eyes at bedtime 10 mL 3 07/17/2024 1:46 PM EST 01/18/20 24 Active Timolol Maleate 0.25 % Ophthalmic Solution (Timoptic) Instill 2 Drops into both eyes in the morning. 15 mL 3 08/08/2024 4:51 PM EDT 02/13/20 24 Active Acetaminophen 500 MG Oral [...] mouth once a day 90 Tablet 3 08/02/2024 1:26 PM EDT 05/02/20 24 Active metFORMIN HCl 1000 MG Oral Tablet (Glucophage)Indica tions:Type 2 diabetes mellitus with hemoglobin A1c goal of less than 7.0% (HCC) Take 1 Tablet by mouth in the morning and 1 Tablet before bedtime with meals 180 Tablet 3 08/02/2024 1:26 PM EDT 05/02/20 24 Active CPAP every night at [...] 06/29/2024 3:45 PM EST 06/26/19 25 Active Furosemide [...] mg by mouth in the morning. Active Dutasteride 0.5 MG Oral Capsule (Avodart)Indicatio ns:BPH with obstruction/lower urinary tract symptoms Take 1 Capsule by mouth in the morning. 90 Capsule 3 08/03/2024 2:20 PM EDT 08/02/19 Active documented as of this encounter (statuses as of 08/15/2024) Active Problems Problem Noted Date Diagnosed Date Glaucoma 06/26/2024 Pulmonary emphysema 06/26/2024 S/P TAVR (transcatheter aortic valve replacement ) 06/20/2024 History of arteriovenous malformation (AVM) 05/17 Edema of right lower leg 06/07/2024 Atherosclerosis of [place] co ronary artery without angina pectoris 05/11/2024 [...] as of this encounter (statuses as of 08/15/2024) Resolved Problems Problem Noted Date Diagnosed Date Resolved Date Primary open-angle glaucoma, right eye, moderate stage 10/16/2020 08/15/2023 Overview (08/15/2023): Noted on pl as OU moderate Glaucoma 08/27/2013 06/07/2022 Overview (06/07/2022): More specific dx on pl HTN, goal below 140/80 07/03/201210/29 Overview: Per HTN Protocol documented as of this encounter (statuses as of 08/15/2024) Immunizations Name Administration Dates Next Due COVID-19 mRNA, LNP-s, No Pre serve, 2-Dose Series (Moderna) 08/19/2020,07/22/2020 COVID-19, MRNA-LNP, PF, 50 M CG/0.5 mL, 12 YRS AND ABOVE, IM (MODERNA-Spikevax) 04/04/2023 COVID-19, mRNA, LNP-s, PF, B ooster, 100mcg/0.5mg (Moderna) 04/16/2021 Covid-19 Ad26, Single Dose (Sylvia/J&J) 08/19/2020,07/22/2020 Pneumococcal Conjugate Vacci ne, 20-valent ([id number]) 05/20/2023 Pneumococcal Polysaccharide PPV23 (Pneumovax) 03/11/2009,10/11/2008(Deferred: Patient [...] encounter Miscellaneous Notes * Telephone Encounter - Beth Garza OSA - 08/14/2024 12:05 PM EDT Left message * Telephone Encounter - Korina Horvath RN - 08/13/2024 7:09 AM EDT Patient discharged from [facility] [place] [facility] [place] * Telephone Encounter - Thuy Arias OSA - 08/10/2024 9:25 AM EDT Pt calling in to apologize. He had cancelled the treatment for yesterday, but forgot to cancel the appointment with Bruna Funk. He has been admitted for the last 10 days. He will call to reschedule whenever he gets discharged. * Telephone Encounter - Beth Garza OSA - 08/10/2024 9:04 AM EDT Left message * Telephone Encounter - Beth Garza OSA - 08/09/2024 3:16 PM EDT My g sent * Telephone Encounter - Lori Gray MED ASSIST - 08/09/2024 3:03 PM EDT Pt did not show for his appointment 08/09/24 with Bruna Funk. Please call to reschedule. Thank You documented in this encounter Plan of Treatment Upcoming Encounters Date Type Department Care Team (Late st Contact Info) Description 10/09/2024 10:00 AM EDT Cardiac Studies Cardiology, [facility] [address] [place] [phone] Edvin Bradshaw [facility] [address] [place] [address] 10/17/2024 8:00 AM EDT Office Visit Family Practice, [facility] Gallegos [address] [phone] Declan Dejesus MD [address] [address] [address] 12/26/2024 9:30 AM EDT Cardiac Studies Cardiac Studies, [facility] [address] [place] [phone] 12/31/2024 2:00 PM EDT Office Visit Cardiology, [facility] [address] [place] [phone] Kareen Boyd CRNP [address] [place] [address] 07/29/2025 10:00 AM EDT Nurse Only Ancillary Department, [facility]leigh Kamara [address] [phone] Ashleigh Nurse Annual Wellness [address] [address] Health Maintenance Due Date Last Done Comments Alpha-1 Antitrypsin 1971 Sigmoidoscopy 1998 Fecal Occult Blood Test 01/14/2024 01/14/20 23, 01/13/2023, 01/15/2022, Additional history exists COVID-19 Vaccine ( season) 2024 04/04/2023, 04/16/2021, 08/19/2020, Additional history exists HbA1c 10/03/2024 04/05/2024, 060 09/2023, 10/19/2023, Additional history exists Albumin/Creatinine Ratio 03/26/2025 024, 01/04/2023, 07/05/2022, Additional history exists B-12 06/08/2025 06/08/2024, 1206/2023, 07/20/2023 O2 ASSESSMENT COMPLETED IN PAST YEAR FOR COPD 06/19/2025 06/19/2024 Adult Wellness Visit 07/24/2025 07/24/2024, 07/20/19 24 Depression Screening 07/24/2025 07/24/2024 Diabetic Foot Exam 07/24/2025 07/24/2024, 0 07/20/2023, 01/03/2017, Additional history exists Diabetic Eye Exam 07/25/2025 07/25/2024, , 07/25/2024, Additional history exists GFR 07/26/2025 07/26/2024, 0 07/2024, 06/20/2024, Additional history exists Cologuard 2026 2023, 05/16, 05/25/2023 Colonoscopy 05/02/2029 05/02/2024, 04/15, 06/29/2023, Additional history exists Colorectal Cancer Screening 05/02/2029 AAA Screening Completed 10/18/2018, 06/0 09/2018, 11/11/2014, Additional history exists Pneumococcal Vaccine: 50+ Years Completed 05/20/2023, 03/11/2009 Zoster Vaccines Completed 06/10/2023, 04/04/2023 Influenza Vaccine (FLU shot) Completed 08/2024, 04/04/2023, 03/11/2022, Additional history exists Lung Cancer Screening Completed 07/31/2024 HPV (Gardasil) Vaccine Aged Out No lo [...] this encounter Medical Devices Implanted Type Area Casting Agent Device Identifier Shelf Expiration Date Model / Serial / Lot Iol Mx60 14.0 Implanted:Qty: 1 on 10/19/2019 by Ankit Ny MD at OR [facility] Right: Eye 04/14/2020 MX60 / [id number] / [id number] Implanted:Qty: 1 on 10/30/2019 by Ankit Ny MD at OR [facility] Left: Eye 02/12/2021 MX60 / [id number] / [id number] Clip Ultra 360 235cm - [id number] Implanted:Qty: 1 on 05/02/2024 by Omid Bonner MD at OR [facility] Colon [employer] : ENDOSCOPY [id number] 12/26/2026 [id number] / / [id number] Clip Ultra 360 235cm - [id number] Implanted:Qty: 1 on 05/02/2024 by Omid Bonner MD at OR [facility] Colon [employer] ENDOSCOPY [id number] 12/26/2026 [id number] / / [id number] Clip Ultra 360 235cm - [id number] Implanted:Qty: 1 on 05/02/2024 by Omid Bonner MD at OR [facility] Colon [employer] ENDOSCOPY [id number] 12/26/2026 [id number] / / [id number] Catheter Hemostatic 235cm 2.8mm [address]mm [address] Latexfree - [id number] Implanted:Qty: 1 on 06/08/2024 by Belén Hernadez MD at OR [facility] [employer] ENDOSCOPY [id number] 01/01/2027 [id number] / / [id number] Clip Ultra 360 235cm - [id number] Implanted:Qty: 1 on 06/08/2024 by Belén Hernadez MD at OR [facility] [employer] ENDOS[employer] [id number] 03/06/2027 [id number] / / [id number] Catheter Hemostatic 235cm 2.8mm [address] Latexfree - [id number] Implanted:Qty: 1 on 06/08/2024 by Belén Hernadez MD at OR [facility] [employer] ENDOS[employer] [id number] 01/30/2027 [id number] / / [id number] Clip Ultra 360 235cm - [id number] Implanted:Qty: 1 on 06/08/2024 by Belén Hernadez MD at OR [facility] [employer] ENDOS[employer] [id number] 12/27/2026 [id number] / / [id number] Catheter Hemostatic 235cm 2.8mm [address] Latexfree - [id number] Implanted:Qty: 1 on 06/08/2024 by Belén Hernadez MD at OR [facility] [employer] ENDOSCOPY [id number] 01/30/2027 [id number] / / [id number] Clip Ultra 360 235cm - [id number] Implanted:Qty: 1 on 06/08/2024 by Belén Hernadez MD at OR [facility] [employer] ENDOSCOPY [id number] 12/27/2026 [id number] / / [id number] Clip Ultra 360 235cm - [id number] Implanted:Qty: 1 on 06/08/2024 by Belén Hernadez MD at OR [facility] [employer] ENDOS[employer] [id number] 12/26/2026 [id number] / / [id number] Clip Ultra 360 235cm - [id number] Implanted:Qty: 1 on 06/08/2024 by Belén Hernadez MD at OR [facility] [employer] ENDOS[employer] [id number] 12/27/2026 [id number] / / [id number] Clip Hemostatic 18mm Assurance - [id number] Implanted:Qty: 1 on 06/08/2024 by Belén Hernadez MD at OR [facility] [employer] [id number] 01/02/2027 [id number] / / [id number] Catheter Hemostatic 235cm 2.8mm [address] Latexfree - [id number] Implanted:Qty: 1 on 06/08/2024 by Belén Hernadez MD at OR [facility] [employer] ENDOS[employer] [id number] 01/30/2027 [id number] / / [id number] Catheter Hemostatic 235cm 2.8mm [address] Latexfree - [id number] Implanted:Qty: 1 on 06/08/2024 by Belén Hernadez MD at OR [facility] [employer] ENDOS[employer] [id number] 01/30/2027 [id number] / / [id number] Clip Hemostatic 11mm Assurance - [id number] Implanted:Qty: 1 on 06/08/2024 by Belén Hernadez MD at OR [facility] [employer] 11/14/2026 [id number] / / [id number] Catheter Hemostatic 235cm 2.8mm [address] Latexfree - [id number] Implanted:Qty: 1 on 06/08/2024 by Belén Hernadez MD at OR [facility] [employer] ENDOSCOPY [id number] 01/01/2027 [id number] / / [id number] Catheter Hemostatic 235cm 2.8mm [address] Latexfree - [id number] Implanted:Qty: 1 on 06/08/2024 by Belén Hernadez MD at OR [facility] [employer] ENDOS[employer] [id number] 01/30/2027 [id number] / / [id number] Valve Transcath Resilia 26mm - [id number] - [id number] Implanted:Qty: 1 on 06/19/2024 by Khang Mir MD at [facility] [employer] [id number] 09/27/2026 [id number] / [id number] / [id number] documented as of this encounter Advance Directives [...] the patient have Health Care Power of Hog Stomach Preparer? Yes, not currently available * No Code Date Activated Date Inactivated Comments 05/01/2024 11:50 AM 05/02/2024 9:14 AM This orde r reflects the patients wishes and were consensually agreed upon. Question Answer Comments Discussion of Advance Directives occurred with: Patient Healthcare Agents on File Name Relationship Healthcare Agent [facility] p Communication Mattie Branch Adult Child First Alternat e Health Care Agent (per Health Care Power of Hog Stomach Preparer document) Care Teams Breaker Mechanic Relationship Specialty Start Date End Date September, Declan Person MD [address] [address] PCP - General Family Medicine 05/20/23 documented as of this encounter
--- OUTSIDE RECORDS SUMMARY | 2024-08-17 02:54 | External Medical Summary | Summary of Care ---
Author Name Unknown Organization [facility] Address [address] [facility] [address] Phone [phone] Care Team Providers Care Physics Teacher Name Role Phone Declan Dejesus MD Primary Care Provider [phone] Reason for Visit * Reason Onset Date Comments No Show 08/09/2024 Encounter Details Date Type Department Care Team (Late st Contact Info) Description 08/09/2024 Telephone Hematology/Oncology [facility] [address] [facility] [address] Bruna Funk CRNP [address] [facility] [place] [address] No Show Allergies Active Allergy Reactions Criticality Noted Date Comments Empagliflozin 10/06/2020 Fungal infection, urinary frequency Lisinopril Cough Polyethylene Glycol Other (Please comment) Low 04/26/2024 Severe gas Nickel Rash 09/13/2011 Tetanus Toxoids Rash 09/13/2011 documented as of this encounter (statuses as of 08/14/2024) Medications MULTI VITAMIN MENS PO TABS one [...] as of this encounter (statuses as of 08/14/2024) Active Problems Problem Noted Date Diagnosed Date Glaucoma 06/26/2024 Pulmonary emphysema 06/26/2024 S/P TAVR (transcatheter aortic valve replacement ) 06/20/2024 History of arteriovenous malformation (AVM) 05/17 Edema of right lower leg 06/07/2024 Atherosclerosis of [place] co ronary artery without angina pectoris 05/11/2024 [...] as of this encounter (statuses as of 08/14/2024) Resolved Problems Problem Noted Date Diagnosed Date Resolved Date Primary open-angle glaucoma, right eye, moderate stage 10/16/2020 08/15/2023 Overview (08/15/2023): Noted on pl as OU moderate Glaucoma 08/27/2013 06/07/2022 Overview (06/07/2022): More specific dx on pl HTN, goal below 140/80 07/03/201210/29 Overview: Per HTN Protocol documented as of this encounter (statuses as of 08/14/2024) Immunizations Name Administration Dates Next Due COVID-19 mRNA, LNP-s, No Pre serve, 2-Dose Series (Moderna) 08/19/2020,07/22/2020 COVID-19, MRNA-LNP, PF, 50 M CG/0.5 mL, 12 YRS AND ABOVE, IM (MODERNA-Spikevax) 04/04/2023 COVID-19, mRNA, LNP-s, PF, B ooster, 100mcg/0.5mg (Moderna) 04/16/2021 Covid-19 Ad26, Single Dose (Sylvia/J&J) 08/19/2020,07/22/2020 Pneumococcal Conjugate Vacci ne, 20-valent ([id number]) 05/20/2023 Pneumococcal Polysaccharide PPV23 (Pneumovax) 03/11/2009,10/11/2008(Deferred: Patient [...] 08/13/2024 7:09 AM EDT Patient discharged from [facility] 08/12/24 to [facility]. * Telephone Encounter - Thuy Arias OSA [...] 10/09/2024 10:00 AM EDT Cardiac Studies Cardiology, [facility] [address] [place] [phone] Edvin Bradshaw [facility] [address] [place] [address] 10/17/2024 8:00 AM EDT Office Visit Family Practice, Ashleigh Gallegos [address] [phone] Declan Dejesus MD [address] [address] 12/26/2024 9:30 AM EDT Cardiac Studies Cardiac Studies, [facility] [address] [place] [phone] 12/31/2024 2:00 PM EDT Office Visit Cardiology, [facility] [address] [place] [address] Kareen Boyd CRNP [address] [place] [address] 07/29/2025 10:00 AM EDT Nurse Only Ancillary Department, Ashleigh Kamara [address] [phone] Ashleigh Nurse Annual Wellness [address] [address] [address] Health Maintenance Due Date Last Done Comments [...] this encounter Medical Devices Implanted Type Area Health Type Technician Device Identifier Shelf Expiration Date Model / Serial / Lot Iol Mx60 14.0 Implanted:Qty: 1 on 10/19/2019 by Ankit Ny MD at OR [facility] Right: Eye 04/14/2020 MX60 / [id number] / Mx60 Implanted:Qty: 1 on 10/30/2019 by Ankit Ny MD at OR [facility] Left: Eye 02/12/2021 MX60 / [id number] / [id number] Clip Ultra 360 235cm - [id number] Implanted:Qty: 1 on 05/02/2024 by Omid Bonner MD at OR [facility] Colon [employer] ENDOSCOPY [id number] 12/26/2026 [id number] / / [id number] Clip Ultra 360 235cm - [id number] Implanted:Qty: 1 on 05/02/2024 by Omid Bonner MD at OR [facility] Colon [employer] ENDOSCOPY [id number] 12/26/2026 [id number] / / [id number] Clip Ultra 360 235cm - [id number] Implanted:Qty: 1 on 05/02/2024 by Omid Bonner MD at OR [facility] Colon [employer] ENDOSCOPY [id number] 12/26/2026 [id number] / / [id number] Catheter Hemostatic 235cm 2.8mm [address]mm [address] Latexfree - [id number] Implanted:Qty: 1 on 06/08/2024 by Belén Hernadez MD at OR [facility] [employer] ENDOS[employer] [id number] 01/01/2027 [id number] / / [id number] Clip Ultra 360 235cm - [id number] Implanted:Qty: 1 on 06/08/2024 by Belén Hernadez MD at OR [facility] [employer] ENDOS[employer] [id number] 03/06/2027 [id number] / / [id number] Catheter Hemostatic 235cm 2.8mm [address]mm [address] Latexfree - [id number] Implanted:Qty: 1 on 06/08/2024 by Belén Hernadez MD at OR [facility] [employer] ENDOS[employer] [id number] 01/30/2027 [id number] / / [id number] Clip Ultra 360 235cm - [id number] Implanted:Qty: 1 on 06/08/2024 by Belén Hernadez MD at OR [facility] [employer] ENDOS[employer] [id number] 12/27/2026 [id number] / / [id number] Catheter Hemostatic 235cm 2.8mm [address]mm [address] Latexfree - [id number] Implanted:Qty: 1 on 06/08/2024 by Belén Hernadez MD at OR [facility] [employer] ENDOSCOPY [id number] 01/30/2027 [id number] / / [id number] Clip Ultra 360 235cm - [id number] Implanted:Qty: 1 on 06/08/2024 by Belén Hernadez MD at OR [facility] [employer] ENDOSCOPY [id number] 12/27/2026 [id number] / / [id number] Clip Ultra 360 235cm - [id number] Implanted:Qty: 1 on 06/08/2024 by Belén Hernadez MD at OR [facility] [employer] ENDOSCOPY [id number] 12/26/2026 [id number] / / [id number] Clip Ultra 360 235cm - [id number] Implanted:Qty: 1 on 06/08/2024 by Belén Hernadez MD at OR [facility] [employer] ENDOSCOPY [id number] 12/27/2026 [id number] / / [id number] Clip Hemostatic 18mm Assurance - [id number] Implanted:Qty: 1 on 06/08/2024 by Belén Hernadez MD at OR [facility] [employer] [id number] 01/02/2027 [id number] / / [id number] Catheter Hemostatic 235cm 2.8mm [address]mm [address] Latexfree - [id number] Implanted:Qty: 1 on 06/08/2024 by Belén Hernadez MD at OR [facility] [employer] ENDOS[employer] [id number] 01/30/2027 [id number] / / [id number] Catheter Hemostatic 235cm 2.8mm [address]mm [address] Latexfree - [id number] Implanted:Qty: 1 on 06/08/2024 by Belén Hernadez MD at OR [facility] [employer] ENDOSCOPY [id number] 01/30/2027 [id number] / / [id number] Clip Hemostatic 11mm Assurance - [id number] Implanted:Qty: 1 on 06/08/2024 by Belén Hernadez MD at OR [facility] [employer] 11/14/2026 [id number] / / [id number] Catheter Hemostatic 235cm 2.8mm [address]mm [address] Latexfree - [id number] Implanted:Qty: 1 on 06/08/2024 by Belén Hernadez MD at OR [facility] [employer] ENDOSCOPY [id number] 01/01/2027 [id number] / / [id number] Catheter Hemostatic 235cm 2.8mm [address]mm [address] Latexfree - [id number] Implanted:Qty: 1 on 06/08/2024 by Belén Hernadez MD at OR [facility] [employer] ENDOS[employer] [id number] 01/30/2027 [id number] / / [id number] Valve Transcath Resilia 26mm - [id number] - [id number] Implanted:Qty: 1 on 06/19/2024 by Khang Mir MD at [facility] [employer] [id number] 09/27/2026 [id number] / [id number] / [id number] documented as of this encounter Advance Directives [...] the patient have Health Care Power of Sewing Department Supervisor? Yes, not currently available * No Code Date Activated Date Inactivated Comments 05/01/2024 11:50 AM 05/02/2024 9:14 AM This orde r reflects the patients wishes and were consensually agreed upon. Question Answer Comments Discussion of Advance Directives occurred with: Patient Healthcare Agents on File Name Relationship Healthcare Agent [facility] p Communication Mattie Branch Adult Child First Alternat e Health Care Agent (per Health Care Power of Sewing Department Supervisor document) Care Teams Physics Teacher Relationship Specialty Start Date End Date September, Declan Person MD [address] [address] PCP - General Family Medicine 05/20/23 documented as of this encounter
--- OUTSIDE RECORDS SUMMARY | 2024-08-17 02:54 | External Medical Summary | Summary of Care ---
Author Name Unknown Organization [facility] Address [address] [facility] [address] Phone [phone] Care Team Providers Care Field Operations Technician Name Role Phone Declan Dejessu MD Primary Care Provider [phone] Reason for Visit * Reason Onset Date Comments No Show 08/09/2024 Encounter Details Date Type Department Care Team (Late st Contact Info) Description 08/09/2024 Telephone Hematology/Oncology [facility] [address] [facility] [address] Bruna Funk CRNP [address] [facility] [place] [address] No Show Allergies Active Allergy Reactions Criticality Noted Date Comments Empagliflozin 10/06/2020 Fungal infection, urinary frequency Lisinopril Cough Polyethylene Glycol Other (Please comment) Low 04/26/2024 Severe gas Nickel Rash 09/13/2011 Tetanus Toxoids Rash 09/13/2011 documented as of this encounter (statuses as of 08/16/2024) Medications MULTI VITAMIN MENS PO TABS one [...] as of this encounter (statuses as of 08/16/2024) Active Problems Problem Noted Date Diagnosed Date Glaucoma 06/26/2024 Pulmonary emphysema 06/26/2024 S/P TAVR (transcatheter aortic valve replacement ) 06/20/2024 History of arteriovenous malformation (AVM) 05/17 Edema of right lower leg 06/07/2024 Atherosclerosis of [place] co ronary artery without angina pectoris 05/11/2024 [...] as of this encounter (statuses as of 08/16/2024) Resolved Problems Problem Noted Date Diagnosed Date Resolved Date Primary open-angle glaucoma, right eye, moderate stage 10/16/2020 08/15/2023 Overview (08/15/2023): Noted on pl as OU moderate Glaucoma 08/27/2013 06/07/2022 Overview (06/07/2022): More specific dx on pl HTN, goal below 140/80 07/03/201210/29 Overview: Per HTN Protocol documented as of this encounter (statuses as of 08/16/2024) Immunizations Name Administration Dates Next Due COVID-19 mRNA, LNP-s, No Pre serve, 2-Dose Series (Moderna) 08/19/2020,07/22/2020 COVID-19, MRNA-LNP, PF, 50 M CG/0.5 mL, 12 YRS AND ABOVE, IM (MODERNA-Spikevax) 04/04/2023 COVID-19, mRNA, LNP-s, PF, B ooster, 100mcg/0.5mg (Moderna) 04/16/2021 Covid-19 Ad26, Single Dose (Sylvia/J&J) 08/19/2020,07/22/2020 Pneumococcal Conjugate Vacci ne, 20-valent ([id number]) 05/20/2023 Pneumococcal Polysaccharide PPV23 (Pneumovax) 03/11/2009,10/11/2008(Deferred: Patient [...] Telephone Encounter - Beth Garza OSA - 08/16/2024 8:51 AM EDT Left message * Telephone Encounter - Beth Garza OSA - 08/14/2024 12:05 PM EDT Left message * Telephone Encounter - Korina Horvath RN - 08/13/2024 7:09 AM EDT Patient discharged from [facility] 08/12/24 to [facility] [place] [place]. * Telephone Encounter - Thuy Arias OSA [...] 10:00 AM EDT Cardiac Studies Cardiology, [facility] [address] [phone] Edvin Bradshaw [facility] [address] [place] [address] 10/17/2024 8:00 AM EDT Office Visit [facility] [address] [facility] [place] [address] Declan Dejesus MD [address] [facility] [place] [address] 12/26/2024 9:30 AM EDT Cardiac Studies Cardiac Studies, [facility] [address] [place] [address] 12/31/2024 2:00 PM EDT Office Visit Cardiology, [facility] [address] [place] [address] Kareen Boyd CRNP [address] [place] [address] 07/29/2025 10:00 AM EDT Nurse Only Ancillary Department, [address] [address] [address] Ashleigh, Nurse Annual Wellness [address] [address] [address] Health Maintenance Due Date Last Done Comments [...] this encounter Medical Devices Implanted Type Area Fleet Director Device Identifier Shelf Expiration Date Model / Serial / Lot Iol Mx60 14.0 Implanted:Qty: 1 on 10/19/2019 by Ankit Ny MD at OR [facility] Right: Eye 04/14/2020 MX60 / [id number] / Mx60 Implanted:Qty: 1 on 10/30/2019 by Ankit Ny MD at OR [facility] Left: Eye 02/12/2021 MX60 / [id number] / [id number] Clip Ultra 360 235cm - [id number] Implanted:Qty: 1 on 05/02/2024 by Omid Bonner MD at OR [facility] Colon [employer] : ENDOSCOPY [id number] 12/26/2026 [id number] / / [id number] Clip Ultra 360 235cm - [id number] Implanted:Qty: 1 on 05/02/2024 by Omid Bonner MD at OR [facility] Colon [employer] ENDOSCOPY [id number] 12/26/2026 [id number] / / [id number] Clip Ultra 360 235cm - [id number] Implanted:Qty: 1 on 05/02/2024 by Omid Bonner MD at OR [facility] Colon [employer] ENDOSCOPY [id number] 12/26/2026 [id number] / / [id number] Catheter Hemostatic 235cm 2.8mm [address]mm [address] Latexfree - [id number] Implanted:Qty: 1 on 06/08/2024 by Belén Hernadez MD at OR [facility] [employer] ENDOSCOPY [id number] 01/01/2027 [id number] / / [id number] Clip Ultra 360 235cm - [id number] Implanted:Qty: 1 on 06/08/2024 by Belén Hernadez MD at OR [facility] [employer] ENDOSCOPY [id number] 03/06/2027 [id number] / / [id number] Catheter Hemostatic 235cm 2.8mm [address]mm [address] Latexfree - [id number] Implanted:Qty: 1 on 06/08/2024 by Belén Hernadez MD at OR [facility] [employer] ENDOSCOPY [id number] 01/30/2027 [id number] / / [id number] Clip Ultra 360 235cm - [id number] Implanted:Qty: 1 on 06/08/2024 by Belén Hernadez MD at OR [facility] [employer] ENDOSCOPY [id number] 12/27/2026 [id number] / / [id number] Catheter Hemostatic 235cm 2.8mm [address]mm [address] Latexfree - [id number] Implanted:Qty: 1 on 06/08/2024 by Belén Hernadez MD at OR [facility] [employer] ENDOSCOPY [id number] 01/30/2027 [id number] / / [id number] Clip Ultra 360 235cm - [id number] Implanted:Qty: 1 on 06/08/2024 by Belén Hernadez MD at OR [facility] [employer] ENDOSCOPY [id number] 12/27/2026 [id number] / / [id number] Clip Ultra 360 235cm - [id number] Implanted:Qty: 1 on 06/08/2024 by Belén Hernadez MD at OR [facility] [employer] ENDOSCOPY [id number] 12/26/2026 [id number] / / [id number] Clip Ultra 360 235cm - [id number] Implanted:Qty: 1 on 06/08/2024 by Belén Hernadez MD at OR [facility] [employer] ENDOSCOPY [id number] 12/27/2026 [id number] / / [id number] Clip Hemostatic 18mm Assurance - [id number] Implanted:Qty: 1 on 06/08/2024 by Belén Hernadez MD at OR [facility] [employer] [id number] 01/02/2027 [id number] / / [id number] Catheter Hemostatic 235cm 2.8mm [address] Latexfree - [id number] Implanted:Qty: 1 on 06/08/2024 by Belén Hernadez MD at OR [facility] [employer] ENDOSCOPY [id number] 01/30/2027 [id number] / / [id number] Catheter Hemostatic 235cm 2.8mm [address] Latexfree - [id number] Implanted:Qty: 1 on 06/08/2024 by Belén Hernadez MD at OR [facility] [employer] ENDOSCOPY [id number] 01/30/2027 [id number] / / [id number] Clip Hemostatic 11mm Assurance - [id number] Implanted:Qty: 1 on 06/08/2024 by Belén Hernadez MD at OR [facility] [employer] 11/14/2026 [id number] / / [id number] Catheter Hemostatic 235cm 2.8mm [address] Latexfree - [id number] Implanted:Qty: 1 on 06/08/2024 by Belén Hernadez MD at OR [facility] [employer] ENDOSCOPY [id number] 01/01/2027 [id number] / / [id number] Catheter Hemostatic 235cm 2.8mm [address] Latexfree - [id number] Implanted:Qty: 1 on 06/08/2024 by Belén Hernadez MD at OR [facility] [employer] ENDOSCOPY [id number] 01/30/2027 [id number] / / [id number] Valve Transcath Resilia 26mm - [id number] - [id number] Implanted:Qty: 1 on 06/19/2024 by Khang Mir MD at [facility] [employer] [id number] 09/27/2026 [id number] / [id number] / [id number] documented as of this encounter Advance Directives [...] the patient have Health Care Power of State Epidemiologist? Yes, not currently available * No Code Date Activated Date Inactivated Comments 05/01/2024 11:50 AM 05/02/2024 9:14 AM This orde r reflects the patients wishes and were consensually agreed upon. Question Answer Comments Discussion of Advance Directives occurred with: Patient Healthcare Agents on File Name Relationship Healthcare Agent [facility] Communication Mattie Quinterosmerman Adult Child First Alternat e Health Care Agent (per Health Care Power of State Epidemiologist document) Care Teams Field Operations Technician Relationship Specialty Start Date End Date September, Declan Person MD [facility] [place] [address] PCP - General Family Medicine 05/20/23 documented as of this encounter
--- OUTSIDE RECORDS SUMMARY | 2024-08-17 02:55 | External Medical Summary | Summary of Care ---
Author Name Unknown Organization [facility] Address [address] [facility] [address] Phone [phone] Care Team Providers Care Junior Paralegal Name Role Phone Declan Dejesus MD Primary Care Provider [phone] Reason for Visit * Reason Onset Date Comments No Show 08/09/2024 Encounter Details Date Type Department Care Team (Late st Contact Info) Description 08/09/2024 Telephone Hematology/Oncology [facility] [place] [facility] [address] Bruna Funk CRNP [facility] [place] [address] No Show Allergies Active Allergy Reactions Criticality Noted Date Comments Empagliflozin 10/06/2020 Fungal infection, urinary frequency Lisinopril Cough Polyethylene Glycol Other (Please comment) Low 04/26/2024 Severe gas Nickel Rash 09/13/2011 Tetanus Toxoids Rash 09/13/2011 documented as of this encounter (statuses as of 08/10/2024) Medications MULTI VITAMIN MENS PO TABS one [...] as of this encounter (statuses as of 08/10/2024) Active Problems Problem Noted Date Diagnosed Date Glaucoma 06/26/2024 Pulmonary emphysema 06/26/2024 S/P TAVR (transcatheter aortic valve replacement ) 06/20/2024 History of arteriovenous malformation (AVM) 05/17 Edema of right lower leg 06/07/2024 Atherosclerosis of [place] co ronary artery without angina pectoris 05/11/2024 [...] as of this encounter (statuses as of 08/10/2024) Resolved Problems Problem Noted Date Diagnosed Date Resolved Date Primary open-angle glaucoma, right eye, moderate stage 10/16/2020 08/15/2023 Overview (08/15/2023): Noted on pl as OU moderate Glaucoma 08/27/2013 06/07/2022 Overview (06/07/2022): More specific dx on pl HTN, goal below 140/80 07/03/201210/29 Overview: Per HTN Protocol documented as of this encounter (statuses as of 08/10/2024) Immunizations Name Administration Dates Next Due COVID-19 mRNA, LNP-s, No Pre serve, 2-Dose Series (Moderna) 08/19/2020,07/22/2020 COVID-19, MRNA-LNP, PF, 50 M CG/0.5 mL, 12 YRS AND ABOVE, IM (MODERNA-Spikevax) 04/04/2023 COVID-19, mRNA, LNP-s, PF, B ooster, 100mcg/0.5mg (Moderna) 04/16/2021 Covid-19 Ad26, Single Dose (Sylvia/J&J) 08/19/2020,07/22/2020 Pneumococcal Conjugate Vacci ne, 20-valent (Rxpyktg12) 05/20/2023 Pneumococcal Polysaccharide PPV23 (Pneumovax) 03/11/2009,10/11/2008(Deferred: Patient [...] encounter Miscellaneous Notes * Telephone Encounter - Thuy Arias OSA [...] 10:00 AM EDT Cardiac Studies Cardiology, [facility] [address] [place] [address] [facility] [address] [place] [address] 10/17/2024 8:00 AM EDT Office Visit Family [facility] [place] [address] [place] [phone] Declan Dejesus MD [address] [place] [address] 12/26/2024 9:30 AM EDT Cardiac Studies Cardiac Studies, [facility] [address] [place] [phone] 12/31/2024 2:00 PM EDT Office Visit Cardiology, [facility] [address] [place] [phone] Kareen Boyd CRNP [address] [place] [address] 07/29/2025 10:00 AM EDT Nurse Only Ancillary Department, [place] [address] [place] [phone] Ashleigh, Nurse Annual Wellness [address] [place] [address] Health Maintenance Due Date Last Done Comments [...] 07/25/2024, Additional history exists GFR 07/26/2025 07/26/2024, 07/2024, [...] this encounter Medical Devices Implanted Type Area Revenue Specialist Device Identifier Shelf Expiration Date Model / Serial / Lot Iol Mx60 14.0 Implanted:Qty: 1 on 10/19/2019 by Ankit Ny MD at OR [facility] Right: Eye 04/14/2020 MX60 / [id number] / [id number] Implanted:Qty: 1 on 10/30/2019 by Ankit Ny MD at OR [facility] Left: Eye 02/12/2021 MX60 / [id number] / [id number] Clip Ultra 360 235cm - [id number] Implanted:Qty: 1 on 05/02/2024 by Omid Bonner MD at OR [facility] Colon [employer] ENDOSCOPY [id number] 12/26/2026 [id number] / / [id number] Clip Ultra 360 235cm - [id number] Implanted:Qty: 1 on 05/02/2024 by Omid Bonner MD at OR [facility] Colon [employer] ENDOSCOPY [id number] 12/26/2026 [id number] / / [id number] Clip Ultra 360 235cm - [id number] Implanted:Qty: 1 on 05/02/2024 by Omid Bonner MD at OR [facility] Colon [employer] ENDOSCOPY [id number] 12/26/2026 [id number] / / [id number] Catheter Hemostatic 235cm 2.8mm 11mm Cl[address] Latexfree - [id number] Implanted:Qty: 1 on 06/08/2024 by Belén Hernadez MD at OR [facility] [employer] ENDOSCOPY [id number] 01/01/2027 [id number] / / [id number] Clip Ultra 360 235cm - [id number] Implanted:Qty: 1 on 06/08/2024 by Belén Hernadez MD at OR [facility] [employer] ENDOSCOPY [id number] 03/06/2027 [id number] / / [id number] Catheter Hemostatic 235cm 2.8mm [address]mm [address] Latexfree - [id number] Implanted:Qty: 1 on 06/08/2024 by Belén Hernadez MD at OR [facility] [employer] ENDOSCOPY [id number] 01/30/2027 [id number] / / [id number] Clip Ultra 360 235cm - [id number] Implanted:Qty: 1 on 06/08/2024 by Belén Hernadez MD at OR [facility] [employer] ENDOSCOPY [id number] 12/27/2026 [id number] / / [id number] Catheter Hemostatic 235cm 2.8mm [address]mm [address] Latexfree - [id number] Implanted:Qty: 1 on 06/08/2024 by Belén Hernadez MD at OR [facility] [employer] ENDOSCOPY [id number] 01/30/2027 [id number] / / [id number] Clip Ultra 360 235cm - [id number] Implanted:Qty: 1 on 06/08/2024 by Belén Hernadez MD at OR [facility] [employer] ENDOSCOPY [id number] 12/27/2026 [id number] / / [id number] Clip Ultra 360 235cm - [id number] Implanted:Qty: 1 on 06/08/2024 by Belén Hernadez MD at OR [facility] [employer] ENDOSCOPY [id number] 12/26/2026 [id number] / / [id number] Clip Ultra 360 235cm - [id number] Implanted:Qty: 1 on 06/08/2024 by Belén Hernadez MD at OR [facility] [employer] ENDOSCOPY [id number] 12/27/2026 [id number] / / [id number] Clip Hemostatic 18mm Assurance - [id number] Implanted:Qty: 1 on 06/08/2024 by Belén Hernadez MD at OR [facility] [employer] [id number] 01/02/2027 [id number] / / [id number] Catheter Hemostatic 235cm 2.8mm [address]mm [address] Latexfree - [id number] Implanted:Qty: 1 on 06/08/2024 by Belén Hernadez MD at OR [facility] [employer] ENDOSCOPY [id number] 01/30/2027 [id number] / / [id number] Catheter Hemostatic 235cm 2.8mm [address]mm [address] Latexfree - [id number] Implanted:Qty: 1 on 06/08/2024 by Belén Hernadez MD at OR [facility] [employer] ENDOSCOPY [id number] 01/30/2027 [id number] / / [id number] Clip Hemostatic 11mm Assurance - [id number] Implanted:Qty: 1 on 06/08/2024 by Belén Hernadez MD at OR [facility] [employer] 11/14/2026 [id number] / / [id number] Catheter Hemostatic 235cm 2.8mm [address] Latexfree - [id number] Implanted:Qty: 1 on 06/08/2024 by Belén Hernadez MD at OR [facility] [employer] ENDOSCOPY [id number] 01/01/2027 [id number] / / [id number] Catheter Hemostatic 235cm 2.8mm 11mm [address] Latexfree - [id number] Implanted:Qty: 1 on 06/08/2024 by Belén Hernadez MD at OR [facility] [employer] ENDOSCOPY [id number] 01/30/2027 [id number] / / [id number] Valve Transcath Resilia 26mm - [id number] - [id number] Implanted:Qty: 1 on 06/19/2024 by Khang Mir MD at [facility] [employer] [id number] 09/27/2026 [id number] / [id number] / [id number] documented as of this encounter Advance Directives [...] the patient have Health Care Power of Employment Legal Assistant? Yes, not currently available * No Code Date Activated Date Inactivated Comments 05/01/2024 11:50 AM 05/02/2024 9:14 AM This orde r reflects the patients wishes and were consensually agreed upon. Question Answer Comments Discussion of Advance Directives occurred with: Patient Healthcare Agents on File Name Relationship Healthcare Agent [facility] Communication Mattie Branch Adult Child First Alternat e Health Care Agent (per Health Care Power of Employment Legal Assistant document) Care Teams Junior Paralegal Relationship Specialty Start Date End Date September, Declan Person MD [address] [place] [id number] PCP - General Family Medicine 05/20/23 documented as of this encounter
--- OUTSIDE RECORDS SUMMARY | 2024-08-17 02:55 | External Medical Summary | Summary of Care ---
Author Name Unknown Organization [facility] Address [address] [facility] [address] Phone [phone] Care Team Providers Care Milking Machine Technician Name Role Phone Declan Dejesus MD Primary Care Provider [phone] Reason for Visit * Reason Onset Date Comments No Show 08/09/2024 Encounter Details Date Type Department Care Team (Late st Contact Info) Description 08/09/2024 Telephone Hematology/Oncology [facility] [place] [address] [facility] [address] Bruna Funk CRNP [address] [facility] [place] [address] No Show Allergies [...] of right lower leg 06/07/2024 Atherosclerosis of [place] co ronary artery without angina pectoris 05/11/2024 [...] (Sylvia/J&J) 08/19/2020,07/22/2020 Pneumococcal Conjugate Vacci ne, 20-valent (Lwkicym53) 05/20/2023 Pneumococcal Polysaccharide PPV23 (Pneumovax) 03/11/2009,10/11/2008(Deferred: Patient [...] 10:00 AM EDT Cardiac Studies Cardiology, [facility] [address] [place] [address] [facility] [address] [place] [address] 10/17/2024 8:00 AM EDT Office Visit Family [facility] [place] [address] [place] [phone] Declan Dejesus MD [address] [place] [address] 12/26/2024 9:30 AM EDT Cardiac Studies Cardiac Studies, [facility] [address] [place] [address] 12/31/2024 2:00 PM EDT Office Visit Cardiology, [facility] [address] [place] [phone] Kareen Boyd CRNP [address] [place] [address] 07/29/2025 10:00 AM EDT Nurse Only Ancillary Department, [place] [address] [place] [phone] Ashleigh, Nurse Annual Wellness [address] [place] [address] Health Maintenance Due Date Last Done Comments [...] this encounter Medical Devices Implanted Type Area Taxicab Dispatcher Device Identifier Shelf Expiration Date Model / Serial / Lot Iol Mx60 14.0 Implanted:Qty: 1 on 10/19/2019 by Ankit Ny MD at OR [facility] Right: Eye 04/14/2020 MX60 / [id number] / Mx60 Implanted:Qty: 1 on 10/30/2019 by Ankit Ny MD at OR [facility] Left: Eye 02/12/2021 MX60 / [id number] 2 / [id number] Clip Ultra 360 235cm - [id number] Implanted:Qty: 1 on 05/02/2024 by Omid Bonner MD at OR [facility] Colon [employer] ENDOSCOPY [id number] 12/26/2026 [id number] / / [id number] Clip Ultra 360 235cm - [id number] Implanted:Qty: 1 on 05/02/2024 by Omid Bonner MD at OR [facility] Colon [employer] ENDOSCOPY [id number] 12/26/2026 [id number] / / [id number] Clip Ultra 360 235cm - [id number] Implanted:Qty: 1 on 05/02/2024 by Omid Bonner MD at OR [facility] Colon [employer] ENDOSCOPY [id number] 12/26/2026 [id number] / / [id number] Catheter Hemostatic 235cm 2.8mm [address] Latexfree - [id number] Implanted:Qty: 1 on 06/08/2024 by Belén Hernadez MD at OR [facility] [employer] ENDOS[employer] [id number] 01/01/2027 [id number] / / [id number] Clip Ultra 360 235cm - [id number] Implanted:Qty: 1 on 06/08/2024 by Belén Hernadez MD at OR [facility] [employer] ENDOS[employer] [id number] 03/06/2027 [id number] / / [id number] Catheter Hemostatic 235cm 2.8mm [address] Latexfree - [id number] Implanted:Qty: 1 on 06/08/2024 by Belén Hernadez MD at OR [facility] [employer] ENDOSCOPY [id number] 01/30/2027 [id number] / / [id number] Clip Ultra 360 235cm - [id number] Implanted:Qty: 1 on 06/08/2024 by Belén Hernadez MD at OR [facility] [employer] ENDOSCOPY [id number] 12/27/2026 [id number] / / [id number] Catheter Hemostatic 235cm 2.8mm [address] Latexfree - [id number] Implanted:Qty: 1 on 06/08/2024 by Belén Hernadez MD at OR [facility] [employer] ENDOSCOPY [id number] 01/30/2027 [id number] / / [id number] Clip Ultra 360 235cm - [id number] Implanted:Qty: 1 on 06/08/2024 by Belén Hernadez MD at OR [facility] [employer] ENDOSCOPY [id number] 12/27/2026 [id number] / / [id number] Clip Ultra 360 235cm - [id number] Implanted:Qty: 1 on 06/08/2024 by Belén Hernadez MD at OR [facility] [employer] ENDOSCOPY [id number] 12/26/2026 [id number] / / [id number] Clip Ultra 360 235cm - [id number] Implanted:Qty: 1 on 06/08/2024 by Belén Hernadez MD at OR [facility] [employer] ENDOSCOPY [id number] 12/27/2026 [id number] / / [id number] Clip Hemostatic 18mm Assurance - [id number] Implanted:Qty: 1 on 06/08/2024 by Belén Hernadez MD at OR [facility] [employer] [id number] 01/02/2027 [id number] / / [id number] Catheter Hemostatic 235cm 2.8mm [address] Latexfree - [id number] Implanted:Qty: 1 on 06/08/2024 by Belén Hernadez MD at OR [facility] [employer] ENDOSCOPY [id number] 01/30/2027 [id number] / / [id number] Catheter Hemostatic 235cm 2.8mm [address] Latexfree - [id number] Implanted:Qty: 1 on 06/08/2024 by Belén Hernadez MD at OR [facility] [employer] ENDOSCOPY [id number] 01/30/2027 [id number] / / [id number] Clip Hemostatic 11mm Assurance - [id number] Implanted:Qty: 1 on 06/08/2024 by Belén Hernadez MD at OR [facility] [employer] 11/14/2026 [id number] / / [id number] Catheter Hemostatic 235cm 2.8mm [address] Latexfree - [id number] Implanted:Qty: 1 on 06/08/2024 by Belén Hernadez MD at OR [facility] [employer] ENDOSCOPY [id number] 01/01/2027 [id number] / / [id number] Catheter Hemostatic 235cm 2.8mm [address]mm [address] Latexfree - [id number] Implanted:Qty: 1 on 06/08/2024 by Belén Hernadez MD at OR [facility] [employer] ENDOSCOPY [id number] 01/30/2027 [id number] / / [id number] Valve Transcath Resilia 26mm - [id number] - [id number] Implanted:Qty: 1 on 06/19/2024 by Khagn Mir MD at [facility] [employer] [id number] 09/27/2026 [id number] / [id number] / [id number] documented as of this encounter Advance Directives [...] the patient have Health Care Power of Publicity Director? Yes, not currently available * No Code Date Activated Date Inactivated Comments 05/01/2024 11:50 AM 05/02/2024 9:14 AM This orde r reflects the patients wishes and were consensually agreed upon. Question Answer Comments Discussion of Advance Directives occurred with: Patient Healthcare Agents on File Name Relationship Healthcare Agent [facility] Communication Mattie Branch Adult Child First Alternat e Health Care Agent (per Health Care Power of Publicity Director document) Care Teams Milking Machine Technician Relationship Specialty Start Date End Date September, Declan Person MD [address] [place] [id number] PCP - General Family Medicine 05/20/23 documented as of this encounter
--- OUTSIDE RECORDS SUMMARY | 2024-08-17 02:55 | External Medical Summary | Summary of Care ---
Author Name Unknown Organization [facility] Address [address] [facility] [address] Phone [phone] Care Team Providers Care Global Mobility Specialist Name Role Phone Declan Dejesus MD Primary Care Provider [phone] Reason for Visit * Reason Onset Date Comments No Show 08/09/2024 Encounter Details Date Type Department Care Team (Late st Contact Info) Description 08/09/2024 Telephone Hematology/Oncology [facility] [address] Bruna Funk CRNP 400 [facility] [place] [address] No Show Allergies Active Allergy Reactions Criticality Noted Date Comments Empagliflozin 10/06/2020 Fungal infection, urinary frequency Lisinopril Cough Polyethylene Glycol Other (Please comment) Low 04/26/2024 Severe gas Nickel Rash 09/13/2011 Tetanus Toxoids Rash 09/13/2011 documented as of this encounter (statuses as of 08/09/2024) Medications MULTI VITAMIN MENS PO TABS one [...] as of this encounter (statuses as of 08/09/2024) Active Problems Problem Noted Date Diagnosed Date Glaucoma 06/26/2024 Pulmonary emphysema 06/26/2024 S/P TAVR (transcatheter aortic valve replacement ) 06/20/2024 History of arteriovenous malformation (AVM) 05/17 Edema of right lower leg 06/07/2024 Atherosclerosis of [place] co ronary artery without angina pectoris 05/11/2024 [...] as of this encounter (statuses as of 08/09/2024) Resolved Problems Problem Noted Date Diagnosed Date Resolved Date Primary open-angle glaucoma, right eye, moderate stage 10/16/2020 08/15/2023 Overview (08/15/2023): Noted on pl as OU moderate Glaucoma 08/27/2013 06/07/2022 Overview (06/07/2022): More specific dx on pl HTN, goal below 140/80 07/03/201210/29 Overview: Per HTN Protocol documented as of this encounter (statuses as of 08/09/2024) Immunizations Name Administration Dates Next Due COVID-19 mRNA, LNP-s, No Pre serve, 2-Dose Series (Moderna) 08/19/2020,07/22/2020 COVID-19, MRNA-LNP, PF, 50 M CG/0.5 mL, 12 YRS AND ABOVE, IM (MODERNA-Spikevax) 04/04/2023 COVID-19, mRNA, LNP-s, PF, B ooster, 100mcg/0.5mg (Moderna) 04/16/2021 Covid-19 Ad26, Single Dose (Sylvia/J&J) 08/19/2020,07/22/2020 Pneumococcal Conjugate Vacci ne, 20-valent (Rvuyfrg15) 05/20/2023 Pneumococcal Polysaccharide PPV23 (Pneumovax) 03/11/2009,10/11/2008(Deferred: Patient [...] 10/09/2024 10:00 AM EDT Cardiac Studies Cardiology, [facility] [address] [place] [address] [facility] [address] [place] [address] 10/17/2024 8:00 AM EDT Office Visit [facility], [place] [address] [place] [phone] Declan Dejesus MD [address] [place] [address] 12/26/2024 9:30 AM EDT Cardiac Studies Cardiac Studies, [facility] [address] [place] [address] 12/31/2024 2:00 PM EDT Office Visit Cardiology, [facility] [address] [place] [phone] Kareen Boyd CRNP [address] [place] [address] 07/29/2025 10:00 AM EDT Nurse Only Ancillary Department, [place] [place] [phone] Ashleigh Nurse [facility] [place] [address] Health Maintenance Due Date Last Done Comments [...] this encounter Medical Devices Implanted Type Area Integrity Engineer Device Identifier Shelf Expiration Date Model / Serial / Lot Iol Mx60 14.0 Implanted:Qty: 1 on 10/19/2019 by Ankit Ny MD at OR [facility] Right: Eye 04/14/2020 MX60 / [id number] / Mx60 Implanted:Qty: 1 on 10/30/2019 by Ankit Ny MD at OR [facility] Left: Eye 02/12/2021 MX60 / [id number] 2 / [id number] Clip Ultra 360 235cm - [id number] Implanted:Qty: 1 on 05/02/2024 by Omid Bonner MD at OR [facility] Colon [employer] END[employer] [id number] 12/26/2026 [id number] / / [id number] Clip Ultra 360 235cm - [id number] Implanted:Qty: 1 on 05/02/2024 by Omid Bonner MD at OR [facility] Colon [employer] ENDOS[employer] [id number] 12/26/2026 [id number] / / [id number] Clip Ultra 360 235cm - [id number] Implanted:Qty: 1 on 05/02/2024 by Omid Bonner MD at OR [facility] Colon [employer] ENDOS[employer] [id number] 12/26/2026 [id number] / / [id number] Catheter Hemostatic 235cm 2.8mm [address] Latexfree - [id number] Implanted:Qty: 1 on 06/08/2024 by Belén Hernadez MD at OR [facility] [employer] END[employer] [id number] 01/01/2027 [id number] / / [id number] Clip Ultra 360 235cm - [id number] Implanted:Qty: 1 on 06/08/2024 by Belén Hernadez MD at OR [facility] [employer] END[employer] [id number] 03/06/2027 [id number] / / [id number] Catheter Hemostatic 235cm 2.8mm [address] Latexfree - [id number] Implanted:Qty: 1 on 06/08/2024 by Belén Hernadez MD at OR [facility] [employer] ENDOS[employer] [id number] 01/30/2027 [id number] / / [id number] Clip Ultra 360 235cm - [id number] Implanted:Qty: 1 on 06/08/2024 by Belén Hernadez MD at OR [facility] [employer] [id number] 12/27/2026 [id number] / / [id number] Catheter Hemostatic 235cm 2.8mm [address] Latexfree - [id number] Implanted:Qty: 1 on 06/08/2024 by Belén Hernadez MD at OR [facility] [employer] END[employer] [id number] 01/30/2027 [id number] / / [id number] Clip Ultra 360 235cm - [id number] Implanted:Qty: 1 on 06/08/2024 by Belén Hernadez MD at OR [facility] [employer] END[employer] [id number] 12/27/2026 [id number] / / [id number] Clip Ultra 360 235cm - [id number] Implanted:Qty: 1 on 06/08/2024 by Belén Hernadez MD at OR [facility] [employer] ENDOS[employer] [id number] 12/26/2026 [id number] / / [id number] Clip Ultra 360 235cm - [id number] Implanted:Qty: 1 on 06/08/2024 by Belén Hernadez MD at OR [facility] [employer] ENDOS[employer] [id number] 12/27/2026 [id number] / / [id number] Clip Hemostatic 18mm Assurance - [id number] Implanted:Qty: 1 on 06/08/2024 by Belén Hernadez MD at OR [facility] [employer] [id number] 01/02/2027 [id number] Catheter Hemostatic 235cm 2.8mm [address] Latexfree - [id number] Implanted:Qty: 1 on 06/08/2024 by Belén Hernadez MD at OR [facility] [employer] ENDOS[employer] [id number] 01/30/2027 [id number] / / [id number] Catheter Hemostatic 235cm 2.8mm [address] Latexfree - [id number] Implanted:Qty: 1 on 06/08/2024 by Belén Hernadez MD at OR [facility] [employer] ENDOS[employer] [id number] 01/30/2027 [id number] / / [id number] Clip Hemostatic 11mm Assurance - [id number] Implanted:Qty: 1 on 06/08/2024 by Belén Hernadez MD at OR [facility] [employer] 11/14/2026 [id number] Catheter Hemostatic 235cm 2.8mm [address] Latexfree - [id number] Implanted:Qty: 1 on 06/08/2024 by Belén Hernadez MD at OR [facility] [employer] ENDOS[employer] [id number] 01/01/2027 [id number] / / [id number] Catheter Hemostatic 235cm 2.8mm [address] Latexfree - [id number] Implanted:Qty: 1 on 06/08/2024 by Belén Hernadez MD at OR [facility] [employer] END[employer] [id number] 01/30/2027 [id number] / / [id number] Valve Transcath Resilia 26mm - [id number] - [id number] Implanted:Qty: 1 on 06/19/2024 by Khang Mir MD at [facility] [employer] [id number] 09/27/2026 [id number] / [id number] / [id number] documented as of this encounter Advance Directives [...] the patient have Health Care Power of Payroll And Benefits Assistant? Yes, not currently available * No Code Date Activated Date Inactivated Comments 05/01/2024 11:50 AM 05/02/2024 9:14 AM This orde r reflects the patients wishes and were consensually agreed upon. Question Answer Comments Discussion of Advance Directives occurred with: Patient Healthcare Agents on File Name Relationship Healthcare Agent [facility] Communication Mattie Branch Adult Child First Alternat e Health Care Agent (per Health Care Power of Payroll And Benefits Assistant document) Care Teams Global Mobility Specialist Relationship Specialty Start Date End Date September, Declan Person MD [address] [place] [address] PCP - General Family Medicine 05/20/23 documented as of this encounter
--- OUTSIDE RECORDS SUMMARY | 2024-08-17 02:55 | External Medical Summary | Summary of Care ---
Author Name Unknown Organization [facility] Address [address] [place] [facility] [place] [address] Phone [phone] Care Team Providers Care Electrochemist Name Role Phone SeptemberDeclan MD Primary Care Provider [phone] Encounter Details Date Type Department Care Team (Late st Contact Info) Description 08/06/2024 Orders Only [facility] [place] St[place]elf[place] Gallegos [address] [phone] SeptemberDeclan MD [address] [address] Allergies Active Allergy Reactions Criticality Noted Date Comments Empagliflozin 10/06/2020 Fungal infection, urinary frequency Lisinopril Cough Polyethylene Glycol Other (Please comment) Low 04/26/2024 Severe gas Nickel Rash 09/13/2011 Tetanus Toxoids Rash 09/13/2011 documented as of this encounter (statuses as of 08/06/2024) Medications MULTI VITAMIN MENS PO TABS one by mouth daily Active Glimepiride 2 MG Oral Tablet (Amaryl) TAKE ONE TABLET BY MOUTH DAILY WITH BREAKFAST 90 Tablet 3 05/19/2024 3:36 PM EST 11/21/19 Active Latanoprost 0.005 % Ophthalmic Solution (Xalatan) [...] Capsule by mouth at bedtime. 90 Capsule 06/14/2024 6:43 PM EST 06/12/19 25 Active [...] as of this encounter (statuses as of 08/06/2024) Active Problems Problem Noted Date Diagnosed Date Glaucoma 06/26/2024 Pulmonary emphysema 06/26/2024 S/P TAVR (transcatheter aortic valve replacement ) 06/20/2024 History of arteriovenous malformation (AVM) 05/17 Edema of right lower leg 06/07/2024 Atherosclerosis of [place] co ronary artery without angina pectoris 05/11/2024 [...] as of this encounter (statuses as of 08/06/2024) Resolved Problems Problem Noted Date Diagnosed Date Resolved Date Primary open-angle glaucoma, right eye, moderate stage 10/16/2020 08/15/2023 Overview (08/15/2023): Noted on pl as OU moderate Glaucoma 08/27/2013 06/07/2022 Overview (06/07/2022): More specific dx on pl HTN, goal below 140/80 07/03/201210/29 Overview: Per HTN Protocol documented as of this encounter (statuses as of 08/06/2024) Immunizations Name Administration Dates Next Due COVID-19 mRNA, LNP-s, No Pre serve, 2-Dose Series (Moderna) 08/19/2020,07/22/2020 COVID-19, MRNA-LNP, PF, 50 M CG/0.5 mL, 12 YRS AND ABOVE, IM (MODERNA-Spikevax) 04/04/2023 COVID-19, mRNA, LNP-s, PF, B ooster, 100mcg/0.5mg (Moderna) 04/16/2021 Covid-19 Ad26, Single Dose (Sylvia/J&J) 08/19/2020,07/22/2020 Pneumococcal Conjugate Vacci ne, 20-valent ([id number]) 05/20/2023 Pneumococcal Polysaccharide PPV23 (Pneumovax) 03/11/2009,10/11/2008(Deferred: Patient [...] Team (Late st Contact Info) Description 08/09/2024 12:30 PM EDT Hem/Onc Treatment Hematology/[place]cology [place], [place] [address] [place] [phone] Susie, Chair 8 Hem Onc [facility] [address] [facility] [place] [address] 08/09/2024 2:30 PM EDT Office Visit Hematology/Oncology [facility] [place] [address] [facility] [place] [address] Bruna Funk CRNP [address] [place] [address] [place] [address] 10/09/2024 10:00 AM EDT Cardiac Studies Cardiology, [facility] [address] [phone] [facility] [address] [address] 10/17/2024 8:00 AM EDT Office Visit [facility] [address] [place] [phone] Declan Dejesus MD [address] [facility] [place] [address] 12/26/2024 9:30 AM EDT Cardiac Studies Cardiac Studies, [facility] [address] [address] [phone] 12/31/2024 2:00 PM EDT Office Visit Cardiology, [facility] [address] [place] [phone] Kareen Boyd CRNP [address] [place] [address] 07/29/2025 10:00 AM EDT Nurse Only Ancillary Department, Ashleigh Kamara [address] [phone] Ashleigh Nurse Annual Wellness [address] [address] Health Maintenance Due Date Last Done Comments [...] this encounter Medical Devices Implanted Type Area Cottrell Operator Device Identifier Shelf Expiration Date Model / Serial / Lot Iol Mx60 14.0 Implanted:Qty: 1 on 10/19/2019 by Ankit Ny MD at OR [facility] Right: Eye 04/14/2020 MX60 / [id number] / [id number] Implanted:Qty: 1 on 10/30/2019 by Ankit Ny MD at OR [facility] Left: Eye 02/12/2021 MX60 / [id number] 2 / [id number] Clip Ultra 360 235cm - [id number] Implanted:Qty: 1 on 05/02/2024 by Omid Bonner MD at OR [facility] Colon [employer] ENDOSCOPY [id number] 12/26/2026 [id number] / / [id number] Clip Ultra 360 235cm - [id number] Implanted:Qty: 1 on 05/02/2024 by Omid Bonner MD at OR [facility] Colon [employer] : ENDOSCOPY [id number] 12/26/2026 [id number] / / [id number] Clip Ultra 360 235cm - [id number] Implanted:Qty: 1 on 05/02/2024 by Omid Bonner MD at OR [facility] Colon [employer] ENDOSCOPY [id number] 12/26/2026 [id number] / / [id number] Catheter Hemostatic 235cm 2.8mm 11mm Cl[address] Latexfree - [id number] Implanted:Qty: 1 on 06/08/2024 by Belén Hernadez MD at OR [facility] [employer] ENDOSCOPY [id number] 01/01/2027 [id number] / / [id number] Clip Ultra 360 235cm - [id number] Implanted:Qty: 1 on 06/08/2024 by Belén Hernadez MD at OR [facility] [employer] ENDOSCOPY [id number] 03/06/2027 [id number] / / [id number] Catheter Hemostatic 235cm 2.8mm [address]mm [address] Latexfree - [id number] Implanted:Qty: 1 on 06/08/2024 by Belén Hernadez MD at OR [facility] [employer] ENDOSCOPY [id number] 01/30/2027 [id number] / / [id number] Clip Ultra 360 235cm - [id number] Implanted:Qty: 1 on 06/08/2024 by Belén Hernadez MD at OR [facility] [employer] ENDOSCOPY [id number] 12/27/2026 [id number] / / [id number] Catheter Hemostatic 235cm 2.8mm [address]mm [address] Latexfree - [id number] Implanted:Qty: 1 on 06/08/2024 by Belén Hernadez MD at OR [facility] [employer] ENDOSCOPY [id number] 01/30/2027 [id number] / / [id number] Clip Ultra 360 235cm - [id number] Implanted:Qty: 1 on 06/08/2024 by Belén Hernadez MD at OR [facility] [employer] ENDOSCOPY [id number] 12/27/2026 [id number] / / [id number] Clip Ultra 360 235cm - [id number] Implanted:Qty: 1 on 06/08/2024 by Belén Hernadez MD at OR [facility] [employer] ENDOSCOPY [id number] 12/26/2026 [id number] / / [id number] Clip Ultra 360 235cm - [id number] Implanted:Qty: 1 on 06/08/2024 by Belén Hernadez MD at OR [facility] [employer] ENDOSCOPY [id number] 12/27/2026 [id number] / / [id number] Clip Hemostatic 18mm Assurance - [id number] Implanted:Qty: 1 on 06/08/2024 by Belén Hernadez MD at OR [facility] [employer] [id number] 01/02/2027 [id number] / [id number] Catheter Hemostatic 235cm 2.8mm [address]mm [address] Latexfree - [id number] Implanted:Qty: 1 on 06/08/2024 by Belén Hernadez MD at OR [facility] [employer] ENDOSCOPY [id number] 01/30/2027 [id number] / / [id number] Catheter Hemostatic 235cm 2.8mm [address] Latexfree - [id number] Implanted:Qty: 1 on 06/08/2024 by Belén Hernadez MD at OR [facility] [employer] ENDOSCOPY [id number] 01/30/2027 [id number] / / [id number] Clip Hemostatic 11mm Assurance - [id number] Implanted:Qty: 1 on 06/08/2024 by Belén Hernadez MD at OR [facility] [employer] 11/14/2026 [id number] Catheter Hemostatic 235cm 2.8mm [address]mm [address] Latexfree - [id number] Implanted:Qty: 1 on 06/08/2024 by Belén Hernadez MD at OR [facility] [employer] ENDOSCOPY [id number] 01/01/2027 [id number] / / [id number] Catheter Hemostatic 235cm 2.8mm [address]mm [address] Latexfree - [id number] Implanted:Qty: 1 on 06/08/2024 by Belén Hernadez MD at OR [facility] [employer] ENDOSCOPY [id number] 01/30/2027 [id number] / / [id number] Valve Transcath Resilia 26mm - [id number] - [id number] Implanted:Qty: 1 on 06/19/2024 by Khang Mir MD at [facility] [employer] [id number] 09/27/2026 [id number] / [id number] / [id number] documented as of this encounter Procedures Procedure Name Priority Date/Time Associated Diagnosis Comments CT CHEST W CONTRAST Routine 07/31/2024 documented in this encounter Results * CT CHEST W CONTRAST (07/31/2024) Anatomical Region Laterality Modality Chest, Body, Cardio Other 07/31/2024 us Renny Mullins DO RAD CT Final Re sult documented in this encounter Advance Directives * [...] the patient have Health Care Power of Body Builder Apprentice? Yes, not currently available * No Code Date Activated Date Inactivated Comments 05/01/2024 11:50 AM 05/02/2024 9:14 AM This orde r reflects the patients wishes and were consensually agreed upon. Question Answer Comments Discussion of Advance Directives occurred with: Patient Healthcare Agents on File Name Relationship [facility] Mattie Branch Adult Child First Alternat e Health Care Agent (per Health Care Power of Body Builder Apprentice document) Care Teams Electrochemist Relationship Specialty Start Date End Date September, Declan Person MD [address] [facility] [place] [address] PCP - General Family Medicine 05/20/23 documented as of this encounter
--- OUTSIDE RECORDS SUMMARY | 2024-08-17 02:55 | External Medical Summary | Summary of Care ---
Author Name Unknown Organization [facility] Address [address] [address] Phone [phone] Care Team Providers Care Electrolysis Operator Name Role Phone Declan Dejesus MD Primary Care Provider [phone] Reason for Visit * Reason Onset Date Comments No Show 08/09/2024 Encounter Details Date Type Department Care Team (Late st Contact Info) Description 08/09/2024 Telephone Hematology/Oncology [facility] [place] [address] [facility] [phone] Bruna Funk CRNP [address] [facility] [place] [address] No Show Allergies Active Allergy Reactions Criticality Noted Date Comments Empagliflozin 10/06/2020 Fungal infection, urinary frequency Lisinopril Cough Polyethylene Glycol Other (Please comment) Low 04/26/2024 Severe gas Nickel Rash 09/13/2011 Tetanus Toxoids Rash 09/13/2011 documented as of this encounter (statuses as of 08/13/2024) Medications MULTI VITAMIN MENS PO TABS one [...] as of this encounter (statuses as of 08/13/2024) Active Problems Problem Noted Date Diagnosed Date Glaucoma 06/26/2024 Pulmonary emphysema 06/26/2024 S/P TAVR (transcatheter aortic valve replacement ) 06/20/2024 History of arteriovenous malformation (AVM) 05/17 Edema of right lower leg 06/07/2024 Atherosclerosis of [place] co ronary artery without angina pectoris 05/11/2024 [...] as of this encounter (statuses as of 08/13/2024) Resolved Problems Problem Noted Date Diagnosed Date Resolved Date Primary open-angle glaucoma, right eye, moderate stage 10/16/2020 08/15/2023 Overview (08/15/2023): Noted on pl as OU moderate Glaucoma 08/27/2013 06/07/2022 Overview (06/07/2022): More specific dx on pl HTN, goal below 140/80 07/03/201210/29 Overview: Per HTN Protocol documented as of this encounter (statuses as of 08/13/2024) Immunizations Name Administration Dates Next Due COVID-19 mRNA, LNP-s, No Pre serve, 2-Dose Series (Moderna) 08/19/2020,07/22/2020 COVID-19, MRNA-LNP, PF, 50 M CG/0.5 mL, 12 YRS AND ABOVE, IM (MODERNA-Spikevax) 04/04/2023 COVID-19, mRNA, LNP-s, PF, B ooster, 100mcg/0.5mg (Moderna) 04/16/2021 Covid-19 Ad26, Single Dose (Sylvia/J&J) 08/19/2020,07/22/2020 Pneumococcal Conjugate Vacci ne, 20-valent ([id number]) 05/20/2023 Pneumococcal Polysaccharide PPV23 (Pneumovax) 03/11/2009,10/11/2008(Deferred: Patient [...] encounter Miscellaneous Notes * Telephone Encounter - Korina Horvath RN - 08/13/2024 7:09 AM EDT Patient discharged from [facility] 08/12/24 to [facility]. * Telephone Encounter - Thuy Arias [...] Studies Cardiology, [facility] [address] [place] [phone] [facility] [address] [place] [address] 10/17/2024 8:00 AM EDT Office Visit Family Practice, Ashleigh Gallegos [address] [phone] Declan Dejesus MD [address] [address] 12/26/2024 9:30 AM EDT Cardiac Studies Cardiac Studies, [facility] [address] [address] [address] 12/31/2024 2:00 PM EDT Office Visit Cardiology, [facility] [address] [phone] Kareen Boyd CRNP [address] [place] [address] [address] 07/29/2025 10:00 AM EDT Nurse Only Ancillary Department, Ashleigh Kamara [address] [phone] Nurse Ashleigh Annual Wellness [address] [address] Health Maintenance Due Date Last Done Comments [...] this encounter Medical Devices Implanted Type Area Assistant Professor Of Music Device Identifier Shelf Expiration Date Model / Serial / Lot Iol Mx60 14.0 Implanted:Qty: 1 on 10/19/2019 by Ankit Ny MD at OR [facility] Right: Eye 04/14/2020 MX60 / [id number] / Mx60 Implanted:Qty: 1 on 10/30/2019 by Ankit Ny MD at OR [facility] Left: Eye 02/12/2021 MX60 / [id number] / [id number] Clip Ultra 360 235cm - [id number] Implanted:Qty: 1 on 05/02/2024 by Omid Bonner MD at OR [facility] Colon [employer] ENDOSCOPY [id number] 12/26/2026 [id number] / / [id number] Clip Ultra 360 235cm - [id number] Implanted:Qty: 1 on 05/02/2024 by Omid Bonner MD at OR [facility] Colon [employer] ENDOSCOPY [id number] 12/26/2026 [id number] / / [id number] Clip Ultra 360 235cm - [id number] Implanted:Qty: 1 on 05/02/2024 by Omid Bonner MD at OR [facility] Colon [employer] ENDOSCOPY [id number] 12/26/2026 [id number] / / [id number] Catheter Hemostatic 235cm 2.8mm [address] Latexfree - [id number] Implanted:Qty: 1 on 06/08/2024 by Belén Hernadez MD at OR [facility] [employer] ENDOS[employer] [id number] 01/01/2027 [id number] / / [id number] Clip Ultra 360 235cm - [id number] Implanted:Qty: 1 on 06/08/2024 by Belén Hernadez MD at OR [facility] [employer] ENDOS[employer] [id number] 03/06/2027 [id number] / / [id number] Catheter Hemostatic 235cm 2.8mm [address] Latexfree - [id number] Implanted:Qty: 1 on 06/08/2024 by Belén Hernadez MD at OR [facility] [employer] ENDOS[employer] [id number] 01/30/2027 [id number] / / [id number] Clip Ultra 360 235cm - [id number] Implanted:Qty: 1 on 06/08/2024 by Belén Hernadez MD at OR [facility] [employer] ENDOS[employer] [id number] 12/27/2026 [id number] / / [id number] Catheter Hemostatic 235cm 2.8mm [address] Latexfree - [id number] Implanted:Qty: 1 on 06/08/2024 by Belén Hernadez MD at OR [facility] [employer] ENDOS[employer] [id number] 01/30/2027 [id number] / / [id number] Clip Ultra 360 235cm - [id number] Implanted:Qty: 1 on 06/08/2024 by Belén Hernadez MD at OR [facility] [employer] ENDOS[employer] [id number] 12/27/2026 [id number] / / [id number] Clip Ultra 360 235cm - [id number] Implanted:Qty: 1 on 06/08/2024 by Belén Hernadez MD at OR [facility] [employer] ENDOSCOPY [id number] 12/26/2026 [id number] / / [id number] Clip Ultra 360 235cm - [id number] Implanted:Qty: 1 on 06/08/2024 by Belén Hernadez MD at OR [facility] [employer] ENDOS[employer] [id number] 12/27/2026 [id number] / / [id number] Clip Hemostatic 18mm Assurance - [id number] Implanted:Qty: 1 on 06/08/2024 by Belén Hernadez MD at OR [facility] [employer] [id number] 01/02/2027 [id number] Catheter Hemostatic 235cm 2.8mm [address] Latexfree - [id number] Implanted:Qty: 1 on 06/08/2024 by Belén Hernadez MD at OR [facility] [employer] ENDOS[employer] [id number] 01/30/2027 [id number] / / [id number] Catheter Hemostatic 235cm 2.8mm [address] Latexfree - [id number] Implanted:Qty: 1 on 06/08/2024 by Belné Hernadez MD at OR [facility] [employer] ENDOS[employer] [id number] 01/30/2027 [id number] / / [id number] Clip Hemostatic 11mm Assurance - [id number] Implanted:Qty: 1 on 06/08/2024 by Belén Hernadez MD at OR [facility] [employer] 11/14/2026 [id number] / / [id number] Catheter Hemostatic 235cm 2.8mm [address] Latexfree - [id number] Implanted:Qty: 1 on 06/08/2024 by Belén Hernadez MD at OR [facility] [employer] ENDOS[employer] [id number] 01/01/2027 [id number] / / [id number] Catheter Hemostatic 235cm 2.8mm [address] Latexfree - [id number] Implanted:Qty: 1 on 06/08/2024 by Belén Hernadez MD at OR [facility] [employer] ENDOS[employer] [id number] 01/30/2027 [id number] / / [id number] Valve Transcath Resilia 26mm - [id number] - [id number] Implanted:Qty: 1 on 06/19/2024 by Khang Mir MD at [facility] [employer] [id number] 09/27/2026 [id number] / [id number] / [id number] documented as of this encounter Advance Directives [...] the patient have Health Care Power of Regional Marketing Director? Yes, not currently available * No Code Date Activated Date Inactivated Comments 05/01/2024 11:50 AM 05/02/2024 9:14 AM This orde r reflects the patients wishes and were consensually agreed upon. Question Answer Comments Discussion of Advance Directives occurred with: Patient Healthcare Agents on File Name Relationship Healthcare Agent [facility] Communication Mattie Branch Adult Child First Alternat e Health Care Agent (per Health Care Power of Regional Marketing Director document) Care Teams Electrolysis Operator Relationship Specialty Start Date End Date September, Declan Person MD [address] [address] [address] PCP - General Family Medicine 05/20/23 documented as of this encounter
--- OUTSIDE RECORDS SUMMARY | 2024-08-17 02:55 | External Medical Summary | Summary of Care ---
Author Name Unknown Organization [facility] [address] [facility] [address] Phone [phone] Care Team Providers Care Garden Implement Mechanic Name Role Phone Declan Dejesus MD Primary Care Provider [phone] Reason for Visit * Reason Onset Date Comments No Show 08/09/2024 Encounter Details Date Type Department Care Team (Late st Contact Info) Description 08/09/2024 Telephone Hematology/Oncology [facility] [place] [facility] [address] Bruna Funk CRNP 400 [facility] [place] [address] No Show Allergies Active Allergy Reactions [...] of right lower leg 06/07/2024 Atherosclerosis of [place] co ronary artery without angina pectoris 05/11/2024 [...] (Sylvia/J&J) 08/19/2020,07/22/2020 Pneumococcal Conjugate Vacci ne, 20-valent ([id number]) 05/20/2023 Pneumococcal Polysaccharide PPV23 (Pneumovax) 03/11/2009,10/11/2008(Deferred: Patient [...] 10/09/2024 10:00 AM EDT Cardiac Studies Cardiology, [facility] [address] [place] [address] [facility] [address] [place] [address] 10/17/2024 8:00 AM EDT Office Visit [facility], Ashleigh Gallegos [address] [place] [phone] Declan Dejesus MD [address] [address] 12/26/2024 9:30 AM EDT Cardiac Studies Cardiac Studies, [facility] [address] [place] [phone] 12/31/2024 2:00 PM EDT Office Visit Cardiology, [facility] [address] [place] [phone] Kareen Boyd CRNP [address] [place] [address] 07/29/2025 10:00 AM EDT Nurse Only Ancillary Department, [address] [place] [address] [phone] Ashleigh Nurse [facility] [address] [facility] [place] [address] Health Maintenance Due Date Last Done Comments [...] this encounter Medical Devices Implanted Type Area Roller Mill Tender Device Identifier Shelf Expiration Date Model / Serial / Lot Iol Mx60 14.0 Implanted:Qty: 1 on 10/19/2019 by Ankit Ny MD at OR [facility] Right: Eye 04/14/2020 MX60 / [id number] / [id number] Implanted:Qty: 1 on 10/30/2019 by Ankit Ny MD at OR [facility] Left: Eye 02/12/2021 [id number] / [id number] / [id number] Clip Ultra 360 235cm - [id number] Implanted:Qty: 1 on 05/02/2024 by Omid Bonner MD at OR [facility] Colon [employer] ENDOSCOPY [id number] 12/26/2026 [id number] / / [id number] Clip Ultra 360 235cm - [id number] Implanted:Qty: 1 on 05/02/2024 by Omid Bonner MD at OR [facility] Colon [employer] : ENDOSCOPY [id number] 12/26/2026 [id number] / / [id number] Clip Ultra 360 235cm - [id number] Implanted:Qty: 1 on 05/02/2024 by Omid Bonner MD at OR [facility] Colon [employer] ENDOSCOPY [id number] 12/26/2026 [id number] / / [id number] Catheter Hemostatic 235cm 2.8mm 11mm Clip [address] Latexfree - [id number] Implanted:Qty: 1 on 06/08/2024 by Belén Hernadez MD at OR [facility] [employer] ENDOSCOPY [id number] 01/01/2027 [id number] / / [id number] Clip Ultra 360 235cm - [id number] Implanted:Qty: 1 on 06/08/2024 by Belén Hernadez MD at OR [facility] [employer] ENDOSCOPY [id number] 03/06/2027 [id number] / / [id number] Catheter Hemostatic 235cm 2.8mm 11mm [address] Latexfree - [id number] Implanted:Qty: 1 on 06/08/2024 by Belén Hernadez MD at OR [facility] [employer] ENDOSCOPY [id number] 01/30/2027 [id number] / / [id number] Clip Ultra 360 235cm - [id number] Implanted:Qty: 1 on 06/08/2024 by Belén Hernadez MD at OR [facility] [employer] ENDOSCOPY [id number] 12/27/2026 [id number] / / [id number] Catheter Hemostatic 235cm 2.8mm 11mm [address] Latexfree - [id number] Implanted:Qty: 1 on 06/08/2024 by Belén Hernadez MD at OR [facility] [employer] ENDOSCOPY [id number] 01/30/2027 [id number] / / [id number] Clip Ultra 360 235cm - [id number] Implanted:Qty: 1 on 06/08/2024 by Belén Hernadez MD at OR [facility] [employer] ENDOSCOPY [id number] 12/27/2026 [id number] / / [id number] Clip Ultra 360 235cm - [id number] Implanted:Qty: 1 on 06/08/2024 by Belén Hernadez MD at OR [facility] [employer] ENDOSCOPY [id number] 12/26/2026 [id number] / / [id number] Clip Ultra 360 235cm - [id number] Implanted:Qty: 1 on 06/08/2024 by Belén Hernadez MD at OR [facility] [employer] ENDOSCOPY [id number] 12/27/2026 [id number] / / [id number] Clip Hemostatic 18mm Assurance - [id number] Implanted:Qty: 1 on 06/08/2024 by Belén Hernadez MD at OR [facility] [employer] [id number] 01/02/2027 [id number] Catheter Hemostatic 235cm 2.8mm 11mm [address] Latexfree - [id number] Implanted:Qty: 1 on 06/08/2024 by Belén Hernadez MD at OR [facility] [employer] ENDOSCOPY [id number] 01/30/2027 [id number] / / [id number] Catheter Hemostatic 235cm 2.8mm 11mm [address] Latexfree - [id number] Implanted:Qty: 1 on 06/08/2024 by Belén Hernadez MD at OR [facility] [employer] ENDOSCOPY [id number] 01/30/2027 [id number] / / [id number] Clip Hemostatic 11mm Assurance - [id number] Implanted:Qty: 1 on 06/08/2024 by Belén Hernadez MD at OR [facility] [employer] 11/14/2026 [id number] Catheter Hemostatic 235cm 2.8mm 11mm [address] Latexfree - [id number] Implanted:Qty: 1 on 06/08/2024 by Belén Hernadez MD at OR [facility] [employer] ENDOSCOPY [id number] 01/01/2027 [id number] / / [id number] Catheter Hemostatic 235cm 2.8mm 11mm [address] Latexfree - [id number] Implanted:Qty: 1 on 06/08/2024 by Belén Hernadez MD at OR [facility] [employer] ENDOSCOPY [id number] 01/30/2027 [id number] / / [id number] Valve Transcath Resilia 26mm - [id number] - [id number] Implanted:Qty: 1 on 06/19/2024 by Khang Mir MD at [facility] [employer] [id number] 09/27/2026 [id number] / [id number] / [id number] documented as of this encounter Advance Directives [...] the patient have Health Care Power of Vat Skimmer? Yes, not currently available * No Code Date Activated Date Inactivated Comments 05/01/2024 11:50 AM 05/02/2024 9:14 AM This orde r reflects the patients wishes and were consensually agreed upon. Question Answer Comments Discussion of Advance Directives occurred with: Patient Healthcare Agents on File Name Relationship [facility] Mattie Branch Adult Child First Alternat e Health Care Agent (per Health Care Power of Vat Skimmer document) Care Teams Garden Implement Mechanic Relationship Specialty Start Date End Date September, Declan Person MD [address] [address] PCP - General Family Medicine 05/20/23 documented as of this encounter
--- OUTSIDE RECORDS SUMMARY | 2024-08-17 02:55 | External Medical Summary | Summary of Care ---
Author Name Unknown Organization [facility] Address [address] [facility] [place] [address] Phone [phone] Care Team Providers Care Drupal Architect Name Role Phone Declan Dejesus MD Primary Care Provider [phone] Encounter Details Date Type Department Care Team (Late st Contact Info) Description 08/01/2024 Result Scan Unspecified Department Good Crenshaw O, DO [address] [place] [address] <No scans attached> Allergies Active Allergy Reactions Criticality Noted Date Comments Empagliflozin 10/06/2020 Fungal infection, urinary frequency Lisinopril Cough Polyethylene Glycol Other (Please comment) Low 04/26/2024 Severe gas Nickel Rash 09/13/2011 Tetanus Toxoids Rash 09/13/2011 documented as of this encounter (statuses as of 08/07/2024) Medications MULTI VITAMIN MENS PO TABS one [...] by mouth in the morning. 90 Tablet 06/29/2024 3:45 PM EST 06/26/19 25 Active [...] as of this encounter (statuses as of 08/07/2024) Active Problems Problem Noted Date Diagnosed Date Glaucoma 06/26/2024 Pulmonary emphysema 06/26/2024 S/P TAVR (transcatheter aortic valve replacement ) 06/20/2024 History of arteriovenous malformation (AVM) 05/17 Edema of right lower leg 06/07/2024 Atherosclerosis of [place] co ronary artery without angina pectoris 05/11/2024 [...] as of this encounter (statuses as of 08/07/2024) Resolved Problems Problem Noted Date Diagnosed Date Resolved Date Primary open-angle glaucoma, right eye, moderate stage 10/16/2020 08/15/2023 Overview (08/15/2023): Noted on pl as OU moderate Glaucoma 08/27/2013 06/07/2022 Overview (06/07/2022): More specific dx on pl HTN, goal below 140/80 07/03/201210/29 Overview: Per HTN Protocol documented as of this encounter (statuses as of 08/07/2024) Immunizations Name Administration Dates Next Due COVID-19 mRNA, LNP-s, No Pre serve, 2-Dose Series (Moderna) 08/19/2020,07/22/2020 COVID-19, MRNA-LNP, PF, 50 M CG/0.5 mL, 12 YRS AND ABOVE, IM (MODERNA-Spikevax) 04/04/2023 COVID-19, mRNA, LNP-s, PF, B ooster, 100mcg/0.5mg (Moderna) 04/16/2021 Covid-19 Ad26, Single Dose (Sylvia/J&J) 08/19/2020,07/22/2020 Pneumococcal Conjugate Vacci ne, 20-valent (Fbqxvdk07) 05/20/2023 Pneumococcal Polysaccharide PPV23 (Pneumovax) 03/11/2009,10/11/2008(Deferred: Patient [...] 12:30 PM EDT Hem/Onc Treatment Hematology/Oncology Treatment, [place] [address] [facility] [address] [place] [address] Susie, Chair 8 Hem Onc [facility] [address] [facility] [place] [address] 08/09/2024 2:30 PM EDT Office Visit Hematology/Oncology [facility] [place] 200 [facility] [place] [phone] Bruna Funk CRNP [address] [place] [address] [place] [address] 10/09/2024 10:00 AM EDT Cardiac Studies Cardiology, [facility] [address] [place] [phone] Edvin Bradshaw [facility] [address] [place] [address] 10/17/2024 8:00 AM EDT [facility] [address] [facility] [place] [phone] Declan Dejesus MD [address] [facility] [place] [address] 12/26/2024 9:30 AM EDT Cardiac Studies Cardiac Studies, [facility] [address] [place] [phone] 12/31/2024 2:00 PM EDT Office Visit Cardiology, [facility] [address] [place] [phone] Kareen Boyd CRNP [address] [place] [address] 07/29/2025 10:00 AM EDT Nurse Only Ancillary Department, Ashleigh Dilllissa [address] [address] [phone] Ashleigh Nurse Annual Wellness [address] [facility] [place] [address] Health Maintenance Due Date Last Done Comments Alpha-1 Antitrypsin 1971 Sigmoidoscopy 1998 Fecal Occult Blood Test 01/14/2024 01/14/20 23, 01/13/2023, 01/15/2022, Additional history exists COVID-19 Vaccine ( season) 2024 04/04/2023, 04/16/2021, 08/19/2020, Additional history exists HbA1c 10/03/2024 04/05/2024, 06/0 09/2023, 10/19/2023, Additional history exists Albumin/Creatinine Ratio 03/26/2025 024, 01/04/2023, 07/05/2022, Additional history exists B-12 06/08/2025 06/08/2024, 12/0 06/2023, 07/20/2023 O2 [...] this encounter Medical Devices Implanted Type Area Vermin Exterminator Device Identifier Shelf Expiration Date Model / Serial / Lot Iol Mx60 14.0 Implanted:Qty: 1 on 10/19/2019 by Ankit Ny MD at OR [facility] Right: Eye 04/14/2020 MX60 / [id number] / [id number] Implanted:Qty: 1 on 10/30/2019 by Ankit Ny MD at OR [facility] Left: Eye 02/12/2021 [id number] / [id number] 2 / [id number] Clip Ultra 360 235cm - [id number] Implanted:Qty: 1 on 05/02/2024 by Omid Bonner MD at OR [facility] Colon [employer] : ENDOSCOPY [id number] 12/26/2026 [id number] / / [id number] Clip Ultra 360 235cm - [id number] Implanted:Qty: 1 on 05/02/2024 by Omid Bonner MD at OR [facility] Colon [employer] ENDOSCOPY [id number] 12/26/2026 [id number] / / [id number] Clip Ultra 360 235cm - [id number] Implanted:Qty: 1 on 05/02/2024 by Omid Bonner MD at OR [facility] Colon [employer] ENDOSCOPY [id number] 12/26/2026 [id number] / / [id number] Catheter Hemostatic 235cm 2.8mm [address]mm [address] Latexfree - [id number] Implanted:Qty: 1 on 06/08/2024 by Belén Hernadez MD at OR [facility] [employer] ENDOSCOPY [id number] 01/01/2027 [id number] / / [id number] Clip Ultra 360 235cm - [id number] Implanted:Qty: 1 on 06/08/2024 by Belén Hernadez MD at OR [facility] [employer] ENDOSCOPY [id number] 03/06/2027 [id number] / / [id number] Catheter Hemostatic 235cm 2.8mm [address]mm [address] Latexfree - [id number] Implanted:Qty: 1 on 06/08/2024 by Belén Hernadez MD at OR [facility] [employer] ENDOSCOPY [id number] 01/30/2027 [id number] / / [id number] Clip Ultra 360 235cm - [id number] Implanted:Qty: 1 on 06/08/2024 by Belén Hernadez MD at OR [facility] [employer] ENDOSCOPY [id number] 12/27/2026 [id number] / / [id number] Catheter Hemostatic 235cm 2.8mm [address] Latexfree - [id number] Implanted:Qty: 1 on 06/08/2024 by Belén Hernadez MD at OR [facility] [employer] ENDOSCOPY [id number] 01/30/2027 [id number] / / [id number] Clip Ultra 360 235cm - [id number] Implanted:Qty: 1 on 06/08/2024 by Belén Hernadez MD at OR [facility] [employer] ENDOSCOPY [id number] 12/27/2026 [id number] / / [id number] Clip Ultra 360 235cm - [id number] Implanted:Qty: 1 on 06/08/2024 by Belén Hernadez MD at OR [facility] [employer] ENDOSCOPY [id number] 12/26/2026 [id number] / / [id number] Clip Ultra 360 235cm - [id number] Implanted:Qty: 1 on 06/08/2024 by Belén Hernadez MD at OR [facility] [employer] ENDOSCOPY [id number] 12/27/2026 [id number] / / [id number] Clip Hemostatic 18mm Assurance - [id number] Implanted:Qty: 1 on 06/08/2024 by Belén Hernadez MD at OR [facility] [employer] [id number] 01/02/2027 [id number] / / [id number] Catheter Hemostatic 235cm 2.8mm [address] Latexfree - [id number] Implanted:Qty: 1 on 06/08/2024 by Belén Hernadez MD at OR [facility] [employer] ENDOSCOPY [id number] 01/30/2027 [id number] / / [id number] Catheter Hemostatic 235cm 2.8mm [address] Latexfree - [id number] Implanted:Qty: 1 on 06/08/2024 by Belén Hernadez MD at OR [facility] [employer] ENDOSCOPY [id number] 01/30/2027 [id number] / / [id number] Clip Hemostatic 11mm Assurance - [id number] Implanted:Qty: 1 on 06/08/2024 by Belén Hernadez MD at OR [facility] [employer] 11/14/2026 [id number] / / [id number] Catheter Hemostatic 235cm 2.8mm [address] Latexfree - [id number] Implanted:Qty: 1 on 06/08/2024 by Belén Hernadez MD at OR [facility] [employer] ENDOSCOPY [id number] 01/01/2027 [id number] / / [id number] Catheter Hemostatic 235cm 2.8mm [address] Latexfree - [id number] Implanted:Qty: 1 on 06/08/2024 by Belén Hernadez MD at OR [facility] [employer] ENDOSCOPY [id number] 01/30/2027 [id number] / / [id number] Valve Transcath Resilia 26mm - [id number] - [id number] Implanted:Qty: 1 on 06/19/2024 by Khang Mir MD at [facility] Jukely [id number] 09/27/2026 [id number] / [id number] / [id number] documented as of this encounter Procedures Procedure Name Priority Date/Time Associated Diagnosis Comments ECHOCARDIOLOGY SCANNED RESULT 08/01/2024 documented in this encounter Results * ECHOCARDIOLOGY SCANNED RESULT (08/01/2024) 08/01/2024 Good Crenshaw DO ECHOCARDIOLOGY Final Resul t documented in this encounter Advance Directives * [...] the patient have Health Care Power of American Sign Language Interpreter? Yes, not currently available * No Code [...] Care Agent (per Health Care Power of American Sign Language Interpreter document) Care Teams Drupal Architect Relationship Specialty Start Date End Date September, Declan Person MD [address] [facility] [place] [address] PCP - General Family Medicine 05/20/23 documented as of this encounter
--- OUTSIDE RECORDS SUMMARY | 2024-08-17 02:55 | External Medical Summary | Summary of Care ---
Author Name Unknown Organization [facility] Address [address] [facility] [address] Phone [phone] Care Team Providers Care Saddle Stitcher Name Role Phone Declan Dejesus MD Primary Care Provider [phone] Reason for Visit * Reason Onset Date Comments No Show 08/09/2024 Encounter Details Date Type Department Care Team (Late st Contact Info) Description 08/09/2024 Telephone Hematology/Oncology [facility] [place] [address] [facility] [address] Bruna Funk CRNP [address] [facility] [place] [address] No Show [...] of right lower leg 06/07/2024 Atherosclerosis of [place] co ronary artery without angina pectoris 05/11/2024 [...] (Sylvia/J&J) 08/19/2020,07/22/2020 Pneumococcal Conjugate Vacci ne, 20-valent (Zoxonwa57) 05/20/2023 Pneumococcal Polysaccharide PPV23 (Pneumovax) 03/11/2009,10/11/2008(Deferred: Patient [...] show for his appointment 08/09/24 with Bruna Fnuk. Please call to reschedule. Thank You documented in this encounter Plan of Treatment Upcoming Encounters Date Type Department Care Team (Late st Contact Info) Description 10/09/2024 10:00 AM EDT Cardiac Studies Cardiology, [facility] [address] [place] [address] Edvin Bradshaw [facility] [address] [place] [address] 10/17/2024 8:00 AM EDT Office Visit Family [facility] [place] [address] [place] [phone] Declan Dejesus MD [address] [place] [address] 12/26/2024 9:30 AM EDT Cardiac Studies Cardiac Studies, [facility] [address] [place] [phone] 12/31/2024 2:00 PM EDT Office Visit Cardiology, [facility] [address] [place] [phone] Kareen Boyd CRNP [address] [place] [address] 07/29/2025 10:00 AM EDT Nurse Only Ancillary Department, Ashleigh [address] [place] [phone] Ashleigh, Nurse Annual Wellness [address] [place] [address] Health Maintenance Due Date Last Done Comments [...] this encounter Medical Devices Implanted Type Area Recreation Therapy Aides Teacher Device Identifier Shelf Expiration Date Model / Serial / Lot Iol Mx60 14.0 Implanted:Qty: 1 on 10/19/2019 by Ankit Ny MD at OR [facility] Right: Eye 04/14/2020 MX60 / [id number] / Mx60 Implanted:Qty: 1 on 10/30/2019 by Ankit Ny MD at OR [facility] Left: Eye 02/12/2021 MX60 / [id number] 2 / [id number] Clip Ultra 360 235cm - [id number] Implanted:Qty: 1 on 05/02/2024 by Omid Bonner MD at OR [facility] Colon [employer] ENDOSCOPY [id number] 12/26/2026 [id number] / / [id number] Clip Ultra 360 235cm - [id number] Implanted:Qty: 1 on 05/02/2024 by Omid Bonner MD at OR [facility] Colon [employer] ENDOSCOPY [id number] 12/26/2026 [id number] / / [id number] Clip Ultra 360 235cm - [id number] Implanted:Qty: 1 on 05/02/2024 by Omid Bonner MD at OR [facility] Colon [employer] ENDOSCOPY [id number] 12/26/2026 [id number] / / [id number] Catheter Hemostatic 235cm 2.8mm [address]mm [address] Latexfree - [id number] Implanted:Qty: 1 on 06/08/2024 by Belén Hernadez MD at OR [facility] [employer] ENDOSCOPY [id number] 01/01/2027 [id number] / / [id number] Clip Ultra 360 235cm - [id number] Implanted:Qty: 1 on 06/08/2024 by Belén Hernadez MD at OR [facility] [employer] ENDOSCOPY [id number] 03/06/2027 [id number] / / [id number] Catheter Hemostatic 235cm 2.8mm [address] Latexfree - [id number] Implanted:Qty: 1 on 06/08/2024 by Belén Hernadez MD at OR [facility] [employer] ENDOSCOPY [id number] 01/30/2027 [id number] / / [id number] Clip Ultra 360 235cm - [id number] Implanted:Qty: 1 on 06/08/2024 by Belén Hernadez MD at OR [facility] [employer] ENDOSCOPY [id number] 12/27/2026 [id number] / / [id number] Catheter Hemostatic 235cm 2.8mm [address] Latexfree - [id number] Implanted:Qty: 1 on 06/08/2024 by Belén Hernadez MD at OR [facility] [employer] ENDOSCOPY [id number] 01/30/2027 [id number] / / [id number] Clip Ultra 360 235cm - [id number] Implanted:Qty: 1 on 06/08/2024 by Belén Hernadez MD at OR [facility] [employer] ENDOSCOPY [id number] 12/27/2026 [id number] / / [id number] Clip Ultra 360 235cm - [id number] Implanted:Qty: 1 on 06/08/2024 by Belén Hernadez MD at OR [facility] [employer] ENDOSCOPY [id number] 12/26/2026 [id number] / / [id number] Clip Ultra 360 235cm - [id number] Implanted:Qty: 1 on 06/08/2024 by Belén Hernadez MD at OR [facility] [employer] ENDOSCOPY [id number] 12/27/2026 [id number] / / [id number] Clip Hemostatic 18mm Assurance - [id number] Implanted:Qty: 1 on 06/08/2024 by Belén Hernadez MD at OR [facility] [employer] [id number] 01/02/2027 [id number] / / [id number] Catheter Hemostatic 235cm 2.8mm [address]mm [address] Latexfree - [id number] Implanted:Qty: 1 on 06/08/2024 by Belén Hernadez MD at OR [facility] [employer] ENDOSCOPY [id number] 01/30/2027 [id number] / / [id number] Catheter Hemostatic 235cm 2.8mm [address]mm [address] Latexfree - [id number] Implanted:Qty: 1 on 06/08/2024 by Belén Hernadez MD at OR [facility] [employer] ENDOSCOPY [id number] 01/30/2027 [id number] / / [id number] Clip Hemostatic 11mm Assurance - [id number] Implanted:Qty: 1 on 06/08/2024 by Belén Hernadez MD at OR [facility] [employer] 11/14/2026 [id number] / / [id number] Catheter Hemostatic 235cm 2.8mm [address] Latexfree - [id number] Implanted:Qty: 1 on 06/08/2024 by Belén Hernadez MD at OR [facility] [employer] ENDOS[employer] [id number] 01/01/2027 [id number] / / [id number] Catheter Hemostatic 235cm 2.8mm [address] Latexfree - [id number] Implanted:Qty: 1 on 06/08/2024 by Belén Hernadez MD at OR [facility] [employer] ENDOS[employer] [id number] 01/30/2027 [id number] / / [id number] Valve Transcath Resilia 26mm - [id number] - [id number] Implanted:Qty: 1 on 06/19/2024 by Khang Mir MD at [facility]S [facility] [employer] [id number] 09/27/2026 [id number] / [id number] / [id number] documented as of this encounter Advance Directives [...] the patient have Health Care Power of Ship'S Carpenter? Yes, not currently available * No Code Date Activated Date Inactivated Comments 05/01/2024 11:50 AM 05/02/2024 9:14 AM This orde r reflects the patients wishes and were consensually agreed upon. Question Answer Comments Discussion of Advance Directives occurred with: Patient Healthcare Agents on File Name Relationship [facility] Mattie Branch Adult Child First Alternat e Health Care Agent (per Health Care Power of Ship'S Carpenter document) Care Teams Saddle Stitcher Relationship Specialty Start Date End Date September, Declan Person MD [address] [place] [address] PCP - General Family Medicine 05/20/23 documented as of this encounter
--- OUTSIDE RECORDS SUMMARY | 2024-08-17 02:56 | External Medical Summary | Summary of Care ---
Author Name Unknown Organization [facility] Address [address] [place] [address] Phone [phone] Care Team Providers Care Radiological Defense Officer Name Role Phone Kole Estrada MD Primary Care Provider Reason for Visit * Reason Comments Medication Refill Encounter Details Date Type Department Care Team (Late st Contact Info) Description 07/31/2024 Refill [facility] [place] Gallegos [address] [phone] SeptemberKole MD [address] [facility] [place] [address] BPH with obstruction/lower urinary tract symptoms Allergies Active Allergy Reactions Criticality Noted Date Comments Empagliflozin 10/06/2020 Fungal infection, urinary frequency Lisinopril Cough Polyethylene Glycol Other (Please comment) Low 04/26/2024 Severe gas Nickel Rash 09/13/2011 Tetanus Toxoids Rash 09/13/2011 documented as of this encounter (statuses as of 08/01/2024) Medications MULTI VITAMIN MENS PO TABS one [...] mouth in the morning. 90 Capsule 3 08/02/19 25 Active Dutasteride 0.5 MG Oral Capsule (Avodart)Indicatio ns:BPH with obstruction/lower urinary tract symptoms Take 1 Capsule by mouth in the morning. 90 Capsule 3 4 10:16 AM EST 08/19/19 24 025 Discontin ued(Refil l) documented as of this encounter (statuses as of 08/01/2024) Active Problems Problem Noted Date Diagnosed Date Glaucoma 06/26/2024 Pulmonary emphysema 06/26/2024 S/P TAVR (transcatheter aortic valve replacement ) 06/20/2024 History of arteriovenous malformation (AVM) 05/17 Edema of right lower leg 06/07/2024 Atherosclerosis of eek co ronary artery without angina pectoris 05/11/2024 [...] as of this encounter (statuses as of 08/01/2024) Resolved Problems Problem Noted Date Diagnosed Date Resolved Date Primary open-angle glaucoma, right eye, moderate stage 10/16/2020 08/15/2023 Overview (08/15/2023): Noted on pl as OU moderate Glaucoma 08/27/2013 06/07/2022 Overview (06/07/2022): More specific dx on pl HTN, goal below 140/80 07/03/201210/29 Overview: Per HTN Protocol documented as of this encounter (statuses as of 08/01/2024) Immunizations Name Administration Dates Next Due COVID-19 mRNA, LNP-s, No Pre serve, 2-Dose Series (Moderna) 08/19/2020,07/22/2020 COVID-19, MRNA-LNP, PF, 50 M CG/0.5 mL, 12 YRS AND ABOVE, IM (MODERNA-Spikevax) 04/04/2023 COVID-19, mRNA, LNP-s, PF, B ooster, 100mcg/0.5mg (Moderna) 04/16/2021 Covid-19 Ad26, Single Dose (Sylvia/J&J) 08/19/2020,07/22/2020 Pneumococcal Conjugate Vacci ne, 20-valent (Vsrcidq96) 05/20/2023 Pneumococcal Polysaccharide PPV23 (Pneumovax) 03/11/2009,10/11/2008(Deferred: Patient [...] Assessment Author Yes 06/07/2024 11:53 PM EST Yeyn Bowman RN * Do you have difficulty [...] encounter Miscellaneous Notes * Telephone Encounter - Kayla Fisher RPh - 08/01/2024 4:48 AM EDTSigned Prescriptions: Disp Refills Dutasteride 0.5 MG Oral Capsule (Avodart) 90 Cap*3 Sig: Take 1 Capsule by mouth in the morning.Authorizing Provider: KOLE ESTRADA User: KAYLA FISHER documented in this encounter Plan of Treatment Upcoming Encounters Date Type Department Care Team (Late st Contact Info) Description 08/09/2024 12:30 PM EDT Hem/Onc Treatment Hematology/Oncology Treatment, [place] [address] [place] [address] Susie, Chair 8 Hem Onc [place] [address] [place] [address] 08/09/2024 2:30 PM EDT Office Visit Hematology/Oncology [facility] Susie [address] [place] [address] Bruna Funk CRNP [address] [place] [address] 10/09/2024 10:00 AM EDT Cardiac Studies Cardiology, [facility] [address] [address] Edvin Bradshaw [facility] [address] [place] [address] 10/17/2024 8:00 AM EDT Office Visit Family Practice, [place] [address] [facility] [facility] [place] [phone] Kole Estrada MD [address] [address] 12/26/2024 9:30 AM EDT Cardiac Studies Cardiac Studies, [facility] [address] [place] [address] 12/31/2024 2:00 PM EDT Office Visit Cardiology, [facility] [address] [facility] [place] [address] Kareen Boyd CRNP [address] [place] [address] 07/29/2025 10:00 AM EDT Nurse Only Ancillary Department, Ashleigh Kamara [address] [facility] [place] [phone] Ashleigh Nurse [facility] [address] [address] Health Maintenance Due Date Last Done Comments [...] this encounter Medical Devices Implanted Type Area [employer] Device Identifier Shelf Expiration Date Model / Serial / Lot Iol Mx60 14.0 Implanted:Qty: 1 on 10/19/2019 by Ankit Ny MD at OR [facility] Right: Eye 04/14/2020 MX60 / [id number] / [id number] Implanted:Qty: 1 on 10/30/2019 by Ankit Ny MD at OR [facility] Left: Eye 02/12/2021 MX60 / [id number] / [id number] Clip Ultra 360 235cm - [id number] Implanted:Qty: 1 on 05/02/2024 by Omid Bonner MD at OR [facility] Colon [employer] ENDOSCOPY [id number] 12/26/2026 [id number] / / [id number] Clip Ultra 360 235cm - [id number] Implanted:Qty: 1 on 05/02/2024 by Omid Bonner MD at OR [facility] Colon [employer] ENDOSCOPY [id number] 12/26/2026 [id number] / / [id number] Clip Ultra 360 235cm - [id number] Implanted:Qty: 1 on 05/02/2024 by Omid Bonner MD at OR [facility] Colon [employer] [id number] 12/26/2026 [id number] / / [id number] Catheter Hemostatic 235cm 2.8mm 11mm Cl[address] Latexfree - [id number] Implanted:Qty: 1 on 06/08/2024 by Belén Hernadez MD at OR [facility] [employer] [id number] 01/01/2027 [id number] / / [id number] Clip Ultra 360 235cm - [id number] Implanted:Qty: 1 on 06/08/2024 by Belén Hernadez MD at OR [facility] [employer] [id number] 03/06/2027 [id number] / / [id number] Catheter Hemostatic 235cm 2.8mm 11mm [address] Latexfree - [id number] Implanted:Qty: 1 on 06/08/2024 by Belén Hernadez MD at OR [facility] [employer] [id number] 01/30/2027 [id number] / / [id number] Clip Ultra 360 235cm - [id number] Implanted:Qty: 1 on 06/08/2024 by Belén Hernadez MD at OR [facility] [employer] [id number] 12/27/2026 [id number] / / [id number] Catheter Hemostatic 235cm 2.8mm [address] Latexfree - [id number] Implanted:Qty: 1 on 06/08/2024 by Belén Hernadez MD at OR [facility] [employer] END[employer] [id number] 01/30/2027 [id number] / / [id number] Clip Ultra 360 235cm - [id number] Implanted:Qty: 1 on 06/08/2024 by Belén Hernadez MD at OR [facility] [employer] ENDOS[employer] [id number] 12/27/2026 [id number] / / [id number] Clip Ultra 360 235cm - [id number] Implanted:Qty: 1 on 06/08/2024 by Belén Hernadez MD at OR [facility] [employer] [id number] 12/26/2026 [id number] / / [id number] Clip Ultra 360 235cm - [id number] Implanted:Qty: 1 on 06/08/2024 by Belén Hernadez MD at OR [facility] [employer] [id number] 12/27/2026 [id number] / / [id number] Clip Hemostatic 18mm Assurance - [id number] Implanted:Qty: 1 on 06/08/2024 by Belén Hernadez MD at OR [facility] [employer] [id number] 01/02/2027 [id number] / / [id number] Catheter Hemostatic 235cm 2.8mm [address] Latexfree - [id number] Implanted:Qty: 1 on 06/08/2024 by Belén Hernadez MD at OR [facility] [employer] [id number] 01/30/2027 [id number] / / [id number] Catheter Hemostatic 235cm 2.8mm [address]mm [address] Latexfree - [id number] Implanted:Qty: 1 on 06/08/2024 by Belén Hernadez MD at OR [facility] [employer] [id number] 01/30/2027 [id number] / / [id number] Clip Hemostatic 11mm Assurance - [id number] Implanted:Qty: 1 on 06/08/2024 by Belén Hernadez MD at OR [facility] [employer] 11/14/2026 [id number] Catheter Hemostatic 235cm 2.8mm [address] Latexfree - [id number] Implanted:Qty: 1 on 06/08/2024 by Belén Hernadez MD at OR [facility] [employer] [id number] 01/01/2027 [id number] / / [id number] Catheter Hemostatic 235cm 2.8mm [address] Latexfree - [id number] Implanted:Qty: 1 on 06/08/2024 by Belén Hernadez MD at OR [facility] [employer] [id number] 01/30/2027 [id number] / / [id number] Valve Transcath Resilia 26mm - [id number] - [id number] Implanted:Qty: 1 on 06/19/2024 by Khang Mir MD at [facility] [employer] [id number] 09/27/2026 [id number] / [id number] / [id number] documented as of this encounter Visit Diagnoses Diagnosis BPH with obstruction/lower urinary tract symptoms Hypertrophy of prostate with urinary obstruction and other lower urinary tract symptoms (LUTS) documented in this encounter Advance Directives * [...] the patient have Health Care Power of Manager Lan? Yes, not currently available * No Code Date Activated Date Inactivated Comments 05/01/2024 11:50 AM 05/02/2024 9:14 AM This orde r reflects the patients wishes and were consensually agreed upon. Question Answer Comments Discussion of Advance Directives occurred with: Patient Healthcare Agents on File Name Relationship Healthcare Agent [facility] p Communication Mattie Branch Adult Child First Alternat e Health Care Agent (per Health Care Power of Manager Lan document) Care Teams Radiological Defense Officer Relationship Specialty Start Date End Date September, Kole Person MD [address] [address] PCP - General Family Medicine 05/20/23 documented as of this encounter
[2024-08-17 06:35] LABS: Basophils # (auto) 0.08 K/uL (0.00-0.20); Basophils % (auto) 1.1 %; Eosinophils # (auto) 0.19 K/uL (0.00-0.50); Eosinophils % (auto) 2.6 %; Hematocrit (blood only) 25.8 % (42.0-52.0); Hemoglobin 7.6 g/dl (14.0-18.0); Immature Granulocytes # (auto) 0.03 K/uL (0.01-0.20); Immature Granulocytes % (auto) 0.4 %; Lymphocytes # (auto) 0.76 K/uL (1.20-3.40); Lymphocytes % (auto) 10.3 %; Mean Corpuscular Hemoglobin 25.1 pg (25.0-34.0); Mean Corpuscular Hgb Conc 29.5 g/dL (32.0-36.0); Mean Corpuscular Volume 85.1 fL (80.0-100.0); Mean Platelet Volume 10.8 fL (9.4-12.4); Monocytes # (auto) 0.58 K/uL (0.11-0.59); Monocytes % (auto) 7.8 %; Neutrophils # (auto) 5.76 K/uL (1.40-6.50); Neutrophils % (auto) 77.8 %; Platelet Count 261 K/uL (130-400); RDW Coefficient of Variation 22.3 % (11.5-14.5); RDW Standard Deviation 68.3 fL (36.4-46.3); Red Blood Count 3.03 M/uL (4.70-6.10)
--- NOTE | 2024-08-17 06:51 | Communication Note ---
Date of Service: August 17, 2024 Patient with episodic bradycardia heart rate 30s. Patient asymptomatic as per RN. Josafat Episodic bradycardia Hold amiodarone and Toprol-XL for now Cardiology consult in a.m.
[2024-08-17 07:12] LABS: Albumin Globulin Ratio 1.3 (0.9-2); Albumin Level 3.7 gm/dl (3.4-5.0); Anisocytosis Present; Bilirubin,Total 0.7 mg/dl (0.2-1.0); Calcium 9.5 mg/dl (8.6-10.3); Creatinine Clr Calc Pharmacy 69.2 ml/min; Globulin 2.9 gm/dl (2.5-4.0); Magnesium 2.3 mg/dl (1.7-2.4); Microcytosis Present; Ovalocytes 1+; Phosphorus 4.2 mg/dl (2.5-4.9); Total Protein 6.6 gm/dl (6.0-8.3)
[2024-08-17 07:14] LABS: Folate (Folic Acid),Ser orPlas > 22.30 ng/ml (>5.38)
[2024-08-17 07:15] LABS: Vitamin B12 1326 pg/ml (180-914)
[2024-08-17 07:31] LABS: Ferritin 53.2 ng/ml (8-388)
[2024-08-17] MEDS: SACCHAROMYCES BOULARDII 250 MG CAP PO SCH (08:53)
[2024-08-17] MEDS: FINASTERIDE 5 MG TAB PO SCH (08:54)
[2024-08-17] MEDS: CYANOCOBALAMIN (B-12) 500 MCG TABLET PO SCH (08:55)
[2024-08-17] MEDS: MULTIVITAMIN TAB PO SCH (08:55)
[2024-08-17] MEDS: PANTOprazole 40 MG TAB PO SCH (08:55)
[2024-08-17] MEDS: FERROUS SULFATE 325 MG TAB PO SCH (08:56)
[2024-08-17] MEDS: FOLIC ACID 1 MG TAB PO SCH (08:56)
[2024-08-17] MEDS: CHOLECALCIFEROL 125 MCG (5,000 UNITS) TAB PO SCH (08:56)
[2024-08-17] MEDS ORDERED: METOPROLOL SUCC 50MG EXT REL TAB PO SCH (09:00)
[2024-08-17] MEDS: IRON SUCROSE 300 MG in SODIUM CHLORIDE 0.9% 250 ML IV ONE (10:41)
[2024-08-17] MEDS: METOPROLOL SUCC 25MG EXT REL TAB PO SCH (10:42)
--- NOTE | 2024-08-17 10:55 | Gastrointestinal Consultation ---
Date of Consultation August 17, 2024 Assessment & Plan (1) Anemia: Patient is a 69 year old male with a significant recent cardiac course of severe aortic stenosis s/p TAVR on 06/19/24, chronic LBBB, Mobitz type 2 second degree AV block s/p pacemaker placement on 07/02/24 with postoperative course complicated by episodes of sustained ventricular tachycardia requiring upgrade to an ICD on 07/04/24. Patient with recent admission and prolonged course with infected pacemaker, bacteremia, endocarditis and subsequent removal of the pacemaker on 08/13/24. Currently has Life vest in place. he does report some darker stools but he seems to have been taking oral iron as an outpatient. He does not appear to have any active GI bleeding. - recommend continue to follow hgb/hct and transfuse as needed. - continue with protonix 40mg once daily. - he was given venofer today. - given recent work up and seemingly lack of evidence for a GI bleed with significant recent cardiac events, would hold off on any endoscopic work up. - he reports having had a capsule endoscopy, we will attempt to get these records. If not, could consider this as an outpatient to evaluate for small bowel AVMs. Supervising Physician Co-Signing Physician Notes I personally saw and examined the patient. I have reviewed the chart and agree with the documentation provided by the HEALTH SCIENCES PROGRAM COORDINATOR including discussion about the assessment, treatment and plan. Briefly, 69 year old male with a significant recent cardiac course of severe aortic stenosis s/p TAVR on 06/19/24, chronic LBBB, Mobitz type 2 second degree AV block s/p pacemaker placement on 07/02/24 with postoperative course complicated by episodes of sustained ventricular tachycardia requiring upgrade to an ICD on 07/04/24. Patient with recent admission and prolonged course with infected pacemaker, bacteremia, endocarditis and subsequent removal of the pacemaker on 08/13/24. Currently has Life vest in place. he does report some darker stools but he seems to have been taking oral iron as an outpatient. He does not appear to have any active GI bleeding. He has had an extensive GI workup in March. 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 After he improves from a cardiac standpoint, he should get a enteroscopy outpatient with [facility]. He should continue on iron infusions especially when he goes to rehab as this will keep up with his blood counts. I think his anemia is multifactorial and GI blood loss from AVMs is likely contributing. I told him that we will need to take iron infusions chronically as AVMs can come back History of Present Illness Reason for Consultation: anemia Requesting Physician: Odilia Botello MD Attending Physician: Sonu Carl MD History of Present Illness Patient is a 69 year old male with a past medical history significant for severe aortic stenosis s/p TAVR on 06/19/24, chronic LBBB, Mobitz type 2 second degree AV block s/p pacemaker placement on 07/02/24 with postoperative course complicated by episodes of sustained ventricular tachycardia requiring upgrade to an ICD on 07/04/24. Patient with recent admission and prolonged course with infected pacemaker, bacteremia, endocarditis and subsequent removal of the pacemaker on 08/13/24. Currently has Lifevest in place. GI asked to see for anemia. he does admit to some darker stools, but outpatient medications does list ferrous sulfate. he is not sure what all he takes as pills are just given to him to take. he had a recent colonoscopy and EGD (see below). He also believes he had a capsule endoscopy done at [facility] when he was admitted there in April 2024 but I do not have these results. rest of GI ROS are unremarkable. 08/16/24 hgb 7.1 which trended to 7.8 and to 7.6. Colonoscopy 05/02/2024 at [facility]: Preparation of the colon was fair. - The examined portion of the ileum was normal. - Diverticulosis in the sigmoid colon. - Internal hemorrhoids. - A single non-bleeding colonic angioectasia. Treated with argon beam coagulation. Clips (MR conditional) were placed. - The examination was otherwise normal on direct and retroflexion views. - No specimens collected. 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 Pylori Duodenitis in the bulb Colonoscopy 06/2023: - The examined colon appeared normal. - Sigmoid diverticulosis in the sigmoid colon. - Internal hemorrhoids. - The examination was otherwise normal on direct and retroflexion views. Allergies Allergy/AdvReac Type Severity Reaction Status Date / Time nickel Allergy Unknown RASH Verified 07/04/24 15:10 tetanus toxoid, adsorbed Allergy Unknown ITCHING Verified 07/04/24 15:10 empagliflozin AdvReac Unknown URINARY Verified 07/04/24 15:10 [From Jardiance] TRACT INFECTION lisinopril AdvReac Unknown Cough Verified 07/04/24 15:10 polyethylene glycol 3350 AdvReac Unknown Verified 07/04/24 15:10 [From Miralax] Home Medications Medication Instructions Recorded Confirmed Type dutasteride 0.5 mg capsule 0.5 mg PO QAM 08/11/18 08/16/24 History multivitamin 1 tab PO QAM 08/11/18 08/16/24 History rosuvastatin 40 mg tablet 40 mg PO HS 08/11/18 08/16/24 History timolol maleate 0.25 % eye drops 2 drp OPB QAM 11/02/23 08/16/24 History ascorbic acid (vitamin C) 1,000 mg 1 g PO BID 07/02/24 08/16/24 History tablet (Vitamin C) aspirin 81 mg chewable tablet 81 mg PO DAILY 07/02/24 08/16/24 History cholecalciferol (vitamin D3) 125 125 mcg PO DAILY 07/02/24 08/16/24 History mcg (5,000 unit) tablet (Vitamin D3) folic acid 1 mg tablet 1 mg PO DAILY 07/02/24 08/16/24 History cyanocobalamin (vitamin B-12) 1,000 mcg PO DAILY 07/04/24 08/16/24 History 1,000 mcg tablet (Vitamin B-12) latanoprost 0.005 % eye drops 1 drp OPB HS 07/04/24 08/16/24 History amiodarone 200 mg tablet 200 mg PO BIDM #60 tabs 08/12/24 08/16/24 Rx ampicillin sodium 2 gram 2 g IV Q4H 08/12/24 08/16/24 Rx intravenous solution apixaban 5 mg tablet (Eliquis) 5 mg PO BID #60 tabs 08/12/24 08/16/24 Rx ceftriaxone 2 gram intravenous 2 g IV Q12H 08/12/24 08/16/24 Rx solution docusate sodium 100 mg capsule 100 mg PO BID #10 caps 08/12/24 08/16/24 Rx glimepiride 2 mg tablet 2 mg PO QAM #30 tabs 08/12/24 08/16/24 Rx guaifenesin 600 mg tablet, 600 mg PO Q12 #10 tabs 08/12/24 08/16/24 Rx extended release 12 hr (Mucinex) metformin 1,000 mg tablet 1,000 mg PO BID #30 tabs 08/12/24 08/16/24 Rx metoprolol succinate 50 mg 50 mg PO QAM #30 tabs 08/12/24 08/16/24 Rx tablet,extended release 24 hr tamsulosin 0.4 mg capsule 0.4 mg PO HS #30 caps 08/12/24 08/16/24 Rx Saccharomyces boulardii 250 mg 250 mg PO DAILY 08/16/24 08/16/24 History capsule acetaminophen 325 mg tablet 650 mg PO Q4 PRN Fever > 100.4 F 08/16/24 08/16/24 History (Tylenol) Or Pain dapagliflozin propanediol 10 mg 10 mg PO DAILY 08/16/24 08/16/24 History tablet (Farxiga) ferrous sulfate 325 mg (65 mg 325 mg PO DAILY 08/16/24 08/16/24 History iron) tablet oxycodone 5 mg tablet 5 mg PO Q6 PRN SEVERE PAIN 08/16/24 08/16/24 History pantoprazole 40 mg tablet,delayed 40 mg PO QAM 08/16/24 08/16/24 History release sodium chloride 0.9 % 10 ml IV Q6H 08/16/24 08/16/24 History torsemide 40 mg tablet 40 mg PO QAM 08/16/24 08/16/24 History Patient History Medical History Aortic stenosis, severe BPH (benign prostatic hyperplasia) REMBERTO on CPAP Obesity Dyslipidemia HTN (hypertension) Diabetes mellitus, type II History of colon polyps BENIGN Scoliosis Osteoarthritis BPH (benign prostatic hyperplasia) GERD (gastroesophageal reflux disease) Not an issue recently Diabetes mellitus, type 2 Anemia Glaucoma RESOLVED S/P SURGICAL INTERVENTION Hyperlipidemia Sleep apnea CPAP, COMPLIANT. Surgical History History of tonsillectomy Hx of repair of rotator cuff "bilateral" History of total right knee replacement (TKR) History of cardiac cath ABNORMAL STRESS TEST IN 2017 - NO STENTS. 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) History of repair of rotator cuff RT/LEFT History of esophagogastroduodenoscopy (EGD) History of colonoscopy History of tooth extraction History of tonsillectomy History of adenoidectomy History of myringotomy Family History Grandmother (Maternal) Family history of diabetes mellitus Mother Family history of esophageal cancer Sister Family history of diabetes mellitus Social History Smoking Status: Never smoker Tobacco Type: Cigarettes Second Hand Exposure: No; Do You Dip or Chew Tobacco: No; Tobacco Cessation Education Requested by Patient: No Hx Alcohol Use: Yes Alcohol type: beer Hx Substance Use: No Preferred Language: Malay Communication Ability: Effective 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 Beliefs That Will Affect Care: None marital status: Current Living Situation: Rehab Current Living Situation Comment: currently in rehab facility Other Information That Helps Us Care for You: No Feels Safe at Home: Yes Safety Concerns: Feels Safe At This Time Assistive Devices: CPAP, Glasses and Other Assistive Devices Comment: lifevest Review of Systems Review of Systems: All systems reviewed & are unremarkable except as noted in HPI & below Physical Exam Constitutional: WD/WN, vitals as above Respiratory: normal respiratory effort, lungs clear to auscultation Cardiovascular: regular rate, rhythm. Gastrointestinal (Abdomen): normal bowel sounds, soft, nontender, no hepatosplenomegaly Psychiatric: Orientation: alert and oriented x 3 Affect: euthymic affect Results & Data Vital Signs (Past 12 Hours) Vital Signs Temp Pulse Pulse Resp BP Pulse Ox O2 Del Method 08/17/24 08:19 Room Air 08/17/24 07:44 97.7 F 77 18 101/65 92 Room Air 08/17/24 06:59 59 L 08/17/24 02:52 98.4 F 20 115/67 95 Nasal Cannula 08/17/24 02:38 81 08/17/24 02:29 72 20 92 08/16/24 23:40 CPAP 08/16/24 23:32 76 21 91 O2 Flow Rate FiO2 08/17/24 08:19 08/17/24 07:44 08/17/24 06:59 08/17/24 02:52 2 08/17/24 02:38 08/17/24 02:29 21 08/16/24 23:40 08/16/24 23:32 21 Coding Level of Care Code 95655 INT INP/OBS CARE Diagnoses Anemia D64.9
--- NOTE | 2024-08-17 11:30 | Cardiology Consultation ---
Date of Consultation August 17, 2024 Assessment & Plan (1) Acute on chronic anemia: (2) Symptomatic anemia: (3) Atrial flutter: (4) History of sustained ventricular tachycardia: (5) Enterococcal bacteremia: Plan Patient admitted with worsening SOB, fatigue, nausea and lack of appetite, concerns for acute on chronic anemia with possible GI bleed Acceptable to hold Eliquis for now. GI consulted. IV iron supplemented. Monitor Hbg. Transfuse for goal of Hbg at least 8. Recent complex history of sepsis/bacteremia with infected ICD. ICD extracted last admission. No symptoms of acute sepsis Continue IV antibiotics daily for total of 6 weeks as previously recommended by ID. Persistent atrial flutter, controlled rates on exam Amio and metoprolol held overnight due to concerns for transient bradycardia. No prolonged R to R intervals or symptomatic events. HR in the 50-60's at rest Continue/resume amiodarone 200 mg BID for now to prevent sustained VT. Continue life vest Will reduce metoprolol to 25 mg daily Eliquis on hold until hbg stabilizes. Case discussed with Dr. Crenshaw I spent a total of 60 minutes on the date of service in preparation, delivery, and documentation of the care provided to this patient, excluding any time spent in the performance of separately billed services. Zina Acuna PA-C Department of Cardiology, [facility] This chart was completed in part utilizing Speech Voice Recognition Software. Grammatical errors, random word insertions, pronoun errors, and incomplete sentences are an occasional consequence of this system due to software limitations, ambient noise, and hardware issues. Any formal questions or concerns about the content, text, or information contained within the body of this dictation should be directly addressed to the provider for clarification. Supervising Physician Co-Signing Physician Notes I have personally performed a history and physical examination on the patient. I have reviewed the advance practitioner's documentation, and I agree with, and take responsibility for the plan of care. 69-year male admitted with fatigue, nausea, lack of appetite as well as concerns regarding acute on chronic anemia with possible GI bleeding. Cardiology consulted regarding transient bradycardia overnight without associated symptoms. Minimum heart rate approximately 40 bpm during sleep. No indication for temporary pacemaker implantation at this time. Acceptable to hold Eliquis pending further evaluation of anemia, possible GI bleeding. Reduce metoprolol to 25 mg daily. Continue amiodarone as ordered. Thank you for allowing us to take part in the care of your patient. I spent a total of 30 minutes on the date of service in preparation, delivery, and documentation of the care provided to this patient, excluding any time spent in the performance of separately billed services. Good Crenshaw DO, [facility] History of Present Illness Reason for Consultation: SOB; Bradycardia Requesting Physician: Reji Hospitalist Attending Physician: Dr. Crenshaw History of Present Illness Patient is a complex 69 year old male admitted to [facility] with weakness, nausea, lack of appetite and SOB with exertion. Upon admission found to have worsening of his chronic anemia with hbg of 7.1. He reports chronic dark/tarry stools. He reports nausea and lack of appetite for the last few days. GI consulted. Received IV iron supplements this morning. Eliquis placed on hold. Overnight there was concern for an episode bradycardia during sleep. No significant prolonged R to R intervals. Persistent flutter. Patient denies symptoms. Overnight physician held amio and metoprolol. At time of consult, patient resting in bed feeling "ok". He denies dizziness or lightheadedness. No chest pain. No fever or chills. No SOB at rest, orthopnea. No acute cardiac complaints He had recent complex hospitalizations: 1. S/p TAVR for severe with # 26mm Restrepo Roxana S3 Ultra Resilia valve (post dilated with one additional cc of volume) 06/19/24 2. High degree AV block with syncope leading to PPM 07/02/23 then with Sustained VT post PPM and received an ICD upgrade on 07/04 3. Admitted for sepsis/ bacteremia on 07/31 - + Enterococcus bacteremia with vegetation on the ICD lead. Wearing Assure Life vest. 4. ICD extracted on 08/03/24 - ongoing 6 weeks of IV antibiotics upon discharge 5. Persistent atrial flutter and VT - on chronic amiodarone 200 mg BID, Eliquis and metoprolol. Allergies Allergy/AdvReac Type Severity Reaction Status Date / Time nickel Allergy Unknown RASH Verified 07/04/24 15:10 tetanus toxoid, adsorbed Allergy Unknown ITCHING Verified 07/04/24 15:10 empagliflozin AdvReac Unknown URINARY Verified 07/04/24 15:10 [From Jardiance] TRACT INFECTION lisinopril AdvReac Unknown Cough Verified 07/04/24 15:10 polyethylene glycol 3350 AdvReac Unknown Verified 07/04/24 15:10 [From Miralax] Home Medications Medication Instructions Recorded Confirmed Type dutasteride 0.5 mg capsule 0.5 mg PO QAM 08/11/18 08/16/24 History multivitamin 1 tab PO QAM 08/11/18 08/16/24 History rosuvastatin 40 mg tablet 40 mg PO HS 08/11/18 08/16/24 History timolol maleate 0.25 % eye drops 2 drp OPB QAM 11/02/23 08/16/24 History ascorbic acid (vitamin C) 1,000 mg 1 g PO BID 07/02/24 08/16/24 History tablet (Vitamin C) aspirin 81 mg chewable tablet 81 mg PO DAILY 07/02/24 08/16/24 History cholecalciferol (vitamin D3) 125 125 mcg PO DAILY 07/02/24 08/16/24 History mcg (5,000 unit) tablet (Vitamin D3) folic acid 1 mg tablet 1 mg PO DAILY 07/02/24 08/16/24 History cyanocobalamin (vitamin B-12) 1,000 mcg PO DAILY 07/04/24 08/16/24 History 1,000 mcg tablet (Vitamin B-12) latanoprost 0.005 % eye drops 1 drp OPB HS 07/04/24 08/16/24 History amiodarone 200 mg tablet 200 mg PO BIDM #60 tabs 08/12/24 08/16/24 Rx ampicillin sodium 2 gram 2 g IV Q4H 08/12/24 08/16/24 Rx intravenous solution apixaban 5 mg tablet (Eliquis) 5 mg PO BID #60 tabs 08/12/24 08/16/24 Rx ceftriaxone 2 gram intravenous 2 g IV Q12H 08/12/24 08/16/24 Rx solution docusate sodium 100 mg capsule 100 mg PO BID #10 caps 08/12/24 08/16/24 Rx glimepiride 2 mg tablet 2 mg PO QAM #30 tabs 08/12/24 08/16/24 Rx guaifenesin 600 mg tablet, 600 mg PO Q12 #10 tabs 08/12/24 08/16/24 Rx extended release 12 hr (Mucinex) metformin 1,000 mg tablet 1,000 mg PO BID #30 tabs 08/12/24 08/16/24 Rx metoprolol succinate 50 mg 50 mg PO QAM #30 tabs 08/12/24 08/16/24 Rx tablet,extended release 24 hr tamsulosin 0.4 mg capsule 0.4 mg PO HS #30 caps 08/12/24 08/16/24 Rx Saccharomyces boulardii 250 mg 250 mg PO DAILY 08/16/24 08/16/24 History capsule acetaminophen 325 mg tablet 650 mg PO Q4 PRN Fever > 100.4 F 08/16/24 08/16/24 History (Tylenol) Or Pain dapagliflozin propanediol 10 mg 10 mg PO DAILY 08/16/24 08/16/24 History tablet (Farxiga) ferrous sulfate 325 mg (65 mg 325 mg PO DAILY 08/16/24 08/16/24 History iron) tablet oxycodone 5 mg tablet 5 mg PO Q6 PRN SEVERE PAIN 08/16/24 08/16/24 History pantoprazole 40 mg tablet,delayed 40 mg PO QAM 08/16/24 08/16/24 History release sodium chloride 0.9 % 10 ml IV Q6H 08/16/24 08/16/24 History torsemide 40 mg tablet 40 mg PO QAM 08/16/24 08/16/24 History Patient History Medical History Aortic stenosis, severe BPH (benign prostatic hyperplasia) REMBERTO on CPAP Obesity Dyslipidemia HTN (hypertension) Diabetes mellitus, type II History of colon polyps BENIGN Scoliosis Osteoarthritis BPH (benign prostatic hyperplasia) GERD (gastroesophageal reflux disease) Not an issue recently Diabetes mellitus, type 2 Anemia Glaucoma RESOLVED S/P SURGICAL INTERVENTION Hyperlipidemia Sleep apnea CPAP, COMPLIANT. Surgical History History of tonsillectomy Hx of repair of rotator cuff "bilateral" History of total right knee replacement (TKR) History of cardiac cath ABNORMAL STRESS TEST IN 2017 - NO STENTS. 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) History of repair of rotator cuff RT/LEFT History of esophagogastroduodenoscopy (EGD) History of colonoscopy History of tooth extraction History of tonsillectomy History of adenoidectomy History of myringotomy Family History Grandmother (Maternal) Family history of diabetes mellitus Mother Family history of esophageal cancer Sister Family history of diabetes mellitus Social History Smoking Status: Never smoker Tobacco Type: Cigarettes Second Hand Exposure: No; Do You Dip or Chew Tobacco: No; Tobacco Cessation Education Requested by Patient: No Hx Alcohol Use: Yes Alcohol type: beer Hx Substance Use: No Preferred Language: Croatian Communication Ability: Effective 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 Beliefs That Will Affect Care: None marital status: Current Living Situation: Rehab Current Living Situation Comment: currently in rehab facility Other Information That Helps Us Care for You: No Feels Safe at Home: Yes Safety Concerns: Feels Safe At This Time Assistive Devices: CPAP, Glasses and Other Assistive Devices Comment: lifevest Review of Systems Review of Systems: All systems reviewed & are unremarkable except as noted in HPI & below Physical Exam Constitutional: WD/WN, vitals as above Neck: trachea midline, no thyromegaly normal visual inspection Respiratory: normal respiratory effort, lungs clear to auscultation Cardiovascular: Rate/Rhythm: regular rate and regular rhythm Heart Sounds: normal S1 and normal S2; no murmur Extremities: no edema Gastrointestinal (Abdomen): normal bowel sounds, soft, nontender, no hepatosplenomegaly Neurologic: PERRL, EOMI, accommodation nl, no face palsy, no dysarthria Results & Data Vital Signs (Past 12 Hours) Vital Signs Temp Pulse Pulse Resp BP Pulse Ox O2 Del Method 08/17/24 11:16 36.7 C 92 H 18 109/64 90 Room Air 08/17/24 08:19 Room Air 08/17/24 07:44 36.5 C 77 18 101/65 92 Room Air 08/17/24 06:59 59 L 08/17/24 02:52 36.9 C 20 115/67 95 Nasal Cannula 08/17/24 02:38 81 08/17/24 02:29 72 20 92 08/16/24 23:40 CPAP 08/16/24 23:32 76 21 91 O2 Flow Rate FiO2 08/17/24 11:16 08/17/24 08:19 08/17/24 07:44 08/17/24 06:59 08/17/24 02:52 2 08/17/24 02:38 08/17/24 02:29 21 08/16/24 23:40 08/16/24 23:32 21 Laboratory Results Cardiac Enzymes 08/16/24 08/16/24 08/17/24 Range/Units 14:55 21:35 06:02 AST 15 13 (13-39) U/L Troponin I High Sens 6.6 7.5 (0-20) pg/ml CBC 08/16/24 08/16/24 08/17/24 Range/Units 14:55 21:35 06:02 WBC 9.26 7.40 (4.8-10.8) K/ul RBC 2.86 L 3.03 L (4.70-6.10) M/uL Hgb 7.1 L 7.8 L 7.6 L (14.0-18.0) g/dl Hct 24.1 L 25.2 L 25.8 L (42.0-52.0) % Plt Count 277 261 (130-400) K/uL Neut # (Auto) 7.83 H 5.76 (1.40-6.50) K/uL Lymph # (Auto) 0.55 L 0.76 L (1.20-3.40) K/uL [place] # (Auto) 0.55 0.58 (0.11-0.59) K/uL Eos # (Auto) 0.18 0.19 (0.00-0.50) K/uL Baso # (Auto) 0.11 0.08 (0.00-0.20) K/uL Comprehensive Metabolic Panel 08/16/24 08/17/24 Range/Units 14:55 06:02 Sodium 142 140 (136-145) mmol/L Potassium 3.6 4.0 (3.5-5.1) mmol/L Chloride 101 102 (98-107) mmol/L Carbon Dioxide 31 33 H (21-32) mmol/L BUN 35 H 31 H (6-23) mg/dl Creatinine 1.27 1.15 (0.6-1.4) mg/dl Glucose 149 H 132 H (70-99(Fasting)) mg/dl Calcium 9.5 9.5 (8.6-10.3) mg/dl Direct Bilirubin 0.1 (0-0.2) mg/dl AST 15 13 (13-39) U/L ALT 17 14 (7-52) U/L Alkaline Phosphatase 80 73 (34-104) U/L Total Protein 6.9 6.6 (6.0-8.3) gm/dl Albumin 3.8 3.7 (3.4-5.0) gm/dl Intake and Output 08/16/24 08/17/24 08/17/24 22:59 06:59 14:59 Intake Total 0 / 450 450 / 450 150 / 150 Balance 0 / 450 450 / 450 150 / 150 Intake: IV 450 / 450 150 / 150 Ampicillin 2,000 mg In Sodium 300 / 300 100 / 100 Chlor 0.9% Mini-B 100 ml @ 200 mls/hr IV Q4H [facility] Rx#:[id number] Magnesium Sulfate / D5w 1 gm In 100 / 100 100 ml @ 50 mls/hr IV ONE ONE Rx#:[id number] cefTRIAXone SODIUM 2,000 mg In 50 / 50 50 / 50 50 ml @ 100 mls/hr IV Q12H [facility] Rx#:[id number] Intake (Blood Product) Amt 0 / 0 Packed Cells, Leukoreduced 0 / 0 Unit [id number] Other: # Unmeasured Voids 1 1 Weight 97.976 kg Weight Measurement Method Built in [facility] Diagnostic Findings Telemetry reviewed: Persistent atrial flutter with rates ranging 50-80's. No symptomatic bradycardia or pauses. No VT. EKG reviewed from 08/16/24: atrial flutter at 89 bmp LAFB Borderline prolonged QT interval. Medications Administered Current Inpatient Medications Acetaminophen (Acetaminophen 325 Mg Tab) 650 mg PO Q4 PRN PRN Reason: Fever > 100.4 F Or Pain Stop: 09/15/24 21:27 Last Admin: 08/16/24 22:55 Dose: 650 mg Amiodarone HCl (Amiodarone 200 Mg Tab) 200 mg PO BIDM [facility] Stop: 09/16/24 07:59 Ascorbic Acid (Ascorbic Acid 500 Mg Tab) 1,000 mg PO BID [facility] Stop: 09/15/24 21:44 Last Admin: 08/17/24 08:56 Dose: 1,000 mg Atropine Sulfate (Atropine Sulfate 0.1 Mg/Ml 10ml Syr) 1 mg IV Q3M PRN PRN Reason: symptomatic bradycardia Stop: 09/16/24 00:00 Cyanocobalamin (Cyanocobalamin (B-12) 500 Mcg Tablet) 1,000 mcg PO DAILY [facility] Stop: 09/16/24 08:59 Last Admin: 08/17/24 08:55 Dose: 1,000 mcg Dextrose (Dextrose 50% 50 Ml Syringe) 25 - 50 ml IV UD PRN; Protocol PRN Reason: Hypoglycemia Protocol Stop: 09/15/24 21:27 Docusate Sodium (Docusate Sodium 100 Mg Cap) 100 mg PO BID [facility] Stop: 09/15/24 21:27 Last Admin: 08/17/24 08:58 Dose: 100 mg Ferrous Sulfate (Ferrous Sulfate 325 Mg Tab) 325 mg PO DAILY [facility] Stop: 09/16/24 08:59 Last Admin: 08/17/24 08:56 Dose: 325 mg Finasteride (Finasteride 5 Mg Tab) 5 mg PO QAM [facility] Stop: 09/16/24 08:59 Last Admin: 08/17/24 08:54 Dose: 5 mg Folic Acid (Folic Acid 1 Mg Tab) 1 mg PO DAILY [facility] Stop: 09/16/24 08:59 Last Admin: 08/17/24 08:56 Dose: 1 mg Glucagon (Glucagon For Inj 1 Mg Vial) 1 mg SQ UD PRN; Protocol PRN Reason: Hypoglycemia Protocol Stop: 09/15/24 21:27 Glucose (Glucose 40% Gel 15 Gm Tube) 15 - 30 gm PO UD PRN; Protocol PRN Reason: Hypoglycemia Protocol Stop: 09/15/24 21:27 Glucose (Glucose 10 Tab/Tube) 4 - 8 tab PO UD PRN; Protocol PRN Reason: Hypoglycemia Protocol Stop: 09/15/24 21:27 Guaifenesin (Guaifenesin 600 Mg Tabcr) 600 mg PO Q12 [facility] Stop: 09/15/24 21:27 Last Admin: 08/17/24 08:56 Dose: 600 mg Heparin Sodium (Beef Lung) (Heparin 10 Unit/Ml 5 Ml Flush) 5 ml FLUSH PRN PRN PRN Reason: Flush Stop: 09/16/24 03:41 Ceftriaxone Sodium (Rocephin) 2,000 mg in 50 mls @ 100 mls/hr IV Q12H [facility] Stop: 09/27/24 21:59 Last Infusion: 08/17/24 10:52 Dose: Infused Ampicillin Sodium 2,000 mg/ (Sodium Chloride) 100 mls @ 200 mls/hr IV Q4H [facility] Stop: 09/27/24 21:59 Last Infusion: 08/17/24 09:28 Dose: Infused Insulin Aspart (Insulin Aspart Per Unit Charge) 0 units SC ACHS [facility] Stop: 09/15/24 21:27 Last Admin: 08/17/24 08:31 Dose: Not Given Metoprolol Succinate (Metoprolol Succ 25mg Ext Rel Tab) 25 mg PO QAM [facility] Stop: 09/16/24 09:44 Last Admin: 08/17/24 10:42 Dose: 25 mg Miscellaneous (Carbohydrates For Hypoglycemia ) 15 - 30 gm PO UD PRN PRN Reason: Hypoglycemia Protocol Stop: 09/15/24 21:27 Multivitamins (Multivitamin Tab) [facility] Stop: 09/16/24 08:59 Last Admin: 08/17/24 08:55 Dose: 1 tab Oxycodone HCl (Oxycodone Hcl Ir 5 Mg Tab (Immediate Release)) 5 mg PO Q6 PRN PRN Reason: SEVERE PAIN Stop: 08/30/24 21:27 Pantoprazole Sodium (Pantoprazole 40 Mg Tab) 40 mg PO QAM [facility] Stop: 09/16/24 08:59 Last Admin: 08/17/24 08:55 Dose: 40 mg Rosuvastatin Calcium (Rosuvastatin Calcium 20 Mg Tab) 40 mg PO [facility] Stop: 09/15/24 21:27 Last Admin: 08/16/24 22:23 Dose: 40 mg Saccharomyces Boulardii (Saccharomyces Boulardii 250 Mg Cap) 250 mg PO DAILY [facility] Stop: 09/16/24 08:59 Last Admin: 08/17/24 08:53 Dose: 250 mg Tamsulosin HCl (Tamsulosin Hcl 0.4 Mg Cap) 0.4 mg PO [facility] Stop: 09/15/24 21:27 Last Admin: 08/16/24 22:23 Dose: 0.4 mg Vitamin D (Cholecalciferol 125 Mcg (5,000 Units) Tab) 125 mcg PO DAILY [facility] Stop: 09/16/24 08:59 Last Admin: 08/17/24 08:56 Dose: 125 mcg
--- NOTE | 2024-08-17 15:03 | Hospitalist Progress Note ---
Date of Service August 17, 2024 Assessment & Plan (1) Generalized weakness: (2) Anemia: Plan Rafael Cantu is a 69y/o M with PMHx significant for severe aortic stenosis s/p TAVR on 06/19/24, chronic LBBB, Mobitz type 2 second degree AV block s/p pacemaker placement on 07/02/24 with postoperative course complicated by episodes of sustained ventricular tachycardia requiring upgrade to an ICD on 07/04/24, HTN, HLD, mild nonobstructive CAD, DMII with diabetic nephropathy, REMBERTO on CPAP, pulmonary emphysema, longstanding iron deficiency anemia, BPH with LUTS, benign paroxysmal vertigo, glaucoma of both eyes, depression, GERD and generalized osteoarthritis. Patient with recent invasive cardiac procedures including TAVR on 06/19/24 for severe and pacemaker placement on 07/02/24 with postoperative course complicated by episodes of sustained ventricular tachycardia requiring upgrade to an ICD on 07/04/24. Pt with recent admission and prolonged course with infected pacemaker, bacteremia, endocarditis and subsequent removal of the pacemaker on 08/13/24. Currently has Lifevest in place. 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 Patient has been receiving IV Venofer as outpatient S/P 1 unit PRBCs S/P venofer X1 dose FOBT pending Serum iron 26 Monitor H&H and transfuse as needed Appreciate GI input Aspirin, Eliquis on hold Will need follow-up with hematology show Continue PPI PT OT, fall precautions Transient bradycardia H/OAtrial flutter H/O SVT Amiodarone, metoprolol resumed Metoprolol succinate dose was decreased to 25 mg daily Eliquis held for now Appreciate cardiology input Continue LifeVest Chronic troponin elevation Likely demand ischemia Hx of TAVR Hx of pacemaker placement with subsequent removal LifeVest in place HTN CAD --Torsemide currently held Monitor volume status closely Continue metoprolol, rosuvastatin Aspirin on hold Enterococcus Bacteremia Infective endocarditis Continue Rocephin, ampicillin as previously recommended to finish IV antibiotic course till 09/13/2024 DVT Px: SCDs Re: Melena CODE STATUS DNI DNR Admission and Anticipated Discharge Date Admission Date: August 16, 2024 Subjective Patient is seen and examined at bedside States feeling very weak and tired Also reports dyspnea on exertion Denies any chest pain, dizziness, nausea, vomiting, abdominal pain Last melena yesterday per patient Patient had 1 unit PRBCs overnight Review of Systems Review of Systems: All systems reviewed & are unremarkable except as noted in Subjective Physical Exam Physical Exam: Physical Exam: Vitals signs as noted above General Appearance:Obese, no apparent distress Head: normocephalic, Atraumatic Eyes: normal inspection, EOMI Neck: supple, Trachea midline Respiratory/Chest: Decreased breath sounds, CTA, No accessory muscle use Cardiovascular: Irregularly irregular, no murmur, +vest Abdomen/GI:Soft, Non tender, Bowel sounds present Extremities/Musculoskeletal:normal inspection, 12+ edema Neurologic/Psych:AAOX3, grossly no focal neurological deficits Skin: normal color, warm Results & Data Results & Data Vital Signs (Past 12 Hours) Vital Signs Temp Pulse Pulse Resp BP Pulse Ox O2 Del Method 08/17/24 14:18 88 08/17/24 11:16 36.7 C 92 H 18 109/64 90 Room Air 08/17/24 08:19 Room Air 08/17/24 07:44 36.5 C 77 18 101/65 92 Room Air 08/17/24 06:59 59 L Laboratory Results Short CBC 08/16/24 08/16/24 08/17/24 Range/Units 14:55 21:35 06:02 WBC 9.26 7.40 (4.8-10.8) K/ul Hgb 7.1 L 7.8 L 7.6 L (14.0-18.0) g/dl Hct 24.1 L 25.2 L 25.8 L (42.0-52.0) % Plt Count 277 261 (130-400) K/uL BMP 08/16/24 08/17/24 14:55 06:02 Sodium 142 140 Potassium 3.6 4.0 Chloride 101 102 Carbon Dioxide 31 33 H BUN 35 H 31 H Creatinine 1.27 1.15 Glucose 149 H 132 H Calcium 9.5 9.5 Liver Function 08/16/24 08/17/24 Range/Units 14:55 06:02 Total Bilirubin 0.5 0.7 (0.2-1.0) mg/dl Direct Bilirubin 0.1 (0-0.2) mg/dl AST 15 13 (13-39) U/L ALT 17 14 (7-52) U/L Alkaline Phosphatase 80 73 (34-104) U/L Albumin 3.8 3.7 (3.4-5.0) gm/dl Urine 08/16/24 Range/Units 18:12 Urine Color Yellow Urine Appearance Clear (Clear) Urine pH 5.0 (4.5-7.5) Ur Specific [place] 1.015 (1.000-1.030) Urine Protein Trace H (Negative) Urine Glucose (UA) 2+ H (Negative)
[2024-08-17] MEDS: AMIODARONE 200 MG TAB PO SCH (17:14)
[2024-08-17] MEDS: SIMETHICONE 80 MG CHEW PO ONE (20:26)
[2024-08-18 07:55] LABS: Hemoglobin 7.4 g/dl (14.0-18.0)
[2024-08-18 08:12] LABS: BUN Creatinine Ratio 17.3 (10-20); Calcium 9.3 mg/dl (8.6-10.3); Creatinine Clr Calc Pharmacy 76.5 ml/min; Magnesium 2.2 mg/dl (1.7-2.4); Potassium 3.9 mmol/L (3.5-5.1)
[2024-08-18] MEDS ORDERED: SODIUM CHLORIDE 0.9% 100 ML IV PRN (09:09)
[2024-08-18 14:32] LABS: Hematocrit (blood only) 27.9 % (42.0-52.0); Hemoglobin 8.3 g/dl (14.0-18.0)
--- NOTE | 2024-08-18 15:23 | Hospitalist Progress Note ---
Date of Service August 18, 2024 Assessment & Plan (1) Generalized weakness: (2) Anemia: Plan Rafael Cantu is a 69y/o M with PMHx significant for severe aortic stenosis s/p TAVR on 06/19/24, chronic LBBB, Mobitz type 2 second degree AV block s/p pacemaker placement on 07/02/24 with postoperative course complicated by episodes of sustained ventricular tachycardia requiring upgrade to an ICD on 07/04/24, HTN, HLD, mild nonobstructive CAD, DMII with diabetic nephropathy, REMBERTO on CPAP, pulmonary emphysema, longstanding iron deficiency anemia, BPH with LUTS, benign paroxysmal vertigo, glaucoma of both eyes, depression, GERD and generalized osteoarthritis. Patient with recent invasive cardiac procedures including TAVR on 06/19/24 for severe and pacemaker placement on 07/02/24 with postoperative course complicated by episodes of sustained ventricular tachycardia requiring upgrade to an ICD on 07/04/24. Pt with recent admission and prolonged course with infected pacemaker, bacteremia, endocarditis and subsequent removal of the pacemaker on 08/13/24. Currently has Lifevest in place. 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 10 angiectasia's were clipped with total 13 clips. S/P 2 unit PRBCs S/P venofer X1 dose FOBT pending Serum iron 26 Monitor H&H and transfuse as needed Appreciate GI input Aspirin, Eliquis on hold Will need follow-up with hematology show Continue PPI PT OT, fall precautions Hemoglobin 8.3 S/P PRBC transfusion today Discussed with GI prior to resuming aspirin and Eliquis once hemoglobin stable Transient bradycardia H/OAtrial flutter H/O SVT Amiodarone, metoprolol resumed Metoprolol succinate dose was decreased to 25 mg daily Eliquis held for now Appreciate cardiology input Continue LifeVest Chronic troponin elevation Likely demand ischemia Hx of TAVR Hx of pacemaker placement with subsequent removal LifeVest in place HTN CAD --Torsemide currently held Monitor volume status closely Continue metoprolol, rosuvastatin Aspirin on hold Enterococcus Bacteremia Infective endocarditis Continue Rocephin, ampicillin as previously recommended to finish IV antibiotic course till 09/13/2024 DVT Px: SCDs Re: Melena CODE STATUS DNI DNR Admission and Anticipated Discharge Date Admission Date: August 16, 2024 Subjective Patient is seen and examined at bedside States feeling better today Reports having black bowel movement overnight No other complaints today Denies any chest pain, dizziness, nausea, vomiting, abdominal pain Review of Systems Review of Systems: All systems reviewed & are unremarkable except as noted in Subjective Physical Exam Physical Exam: Physical Exam: Vitals signs as noted above General Appearance:Obese, no apparent distress Head: normocephalic, Atraumatic Eyes: normal inspection, EOMI Neck: supple, Trachea midline Respiratory/Chest: Decreased breath sounds, CTA, No accessory muscle use Cardiovascular: Irregularly irregular, no murmur, +vest Abdomen/GI:Soft, Non tender, Bowel sounds present Extremities/Musculoskeletal:normal inspection, 12+ edema Neurologic/Psych:AAOX3, grossly no focal neurological deficits Skin: normal color, warm Results & Data Results & Data Vital Signs (Past 12 Hours) Vital Signs Temp Pulse Pulse Resp BP BP Pulse Ox 08/18/24 14:49 36.9 C 86 18 115/66 94 08/18/24 13:14 36.8 C 78 16 121/71 95 08/18/24 10:55 36.7 C 70 14 108/62 95 08/18/24 10:55 36.7 C 54 L 18 100/60 91 08/18/24 10:40 36.8 C 78 16 100/52 L 95 08/18/24 10:24 36.7 C 60 16 97/62 L 97 08/18/24 07:00 60 08/18/24 06:56 36.4 C L 95 H 18 111/66 95 08/18/24 03:52 62 18 121/65 95 O2 Del Method 08/18/24 14:49 Room Air 08/18/24 13:14 08/18/24 10:55 08/18/24 10:55 Room Air 08/18/24 10:40 08/18/24 10:24 08/18/24 07:00 08/18/24 06:56 Room Air 08/18/24 03:52 BiPAP Laboratory Results Short CBC 08/18/24 08/18/24 Range/Units 07:29 14:04 Hgb 7.4 L 8.3 L (14.0-18.0) g/dl Hct 25.0 L 27.9 L (42.0-52.0) % BMP 08/18/24 07:29 Sodium 140 Potassium 3.9 Chloride 106 Carbon Dioxide 29 BUN 18 Creatinine 1.04 Glucose 136 H Calcium 9.3
[2024-08-19 07:05] LABS: Hematocrit (blood only) 26.7 % (42.0-52.0); Mean Corpuscular Hemoglobin 26.2 pg (25.0-34.0); Mean Corpuscular Volume 87.5 fL (80.0-100.0); Platelet Count 233 K/uL (130-400); RDW Coefficient of Variation 21.4 % (11.5-14.5); RDW Standard Deviation 66.4 fL (36.4-46.3); Red Blood Count 3.05 M/uL (4.70-6.10); White Blood Count 6.95 K/ul (4.8-10.8)
[2024-08-19 07:19] LABS: BUN Creatinine Ratio 15.2 (10-20); Calcium 9.1 mg/dl (8.6-10.3); Creatinine Clr Calc Pharmacy 80.6 ml/min; Potassium 3.9 mmol/L (3.5-5.1)
[2024-08-19] MEDS: IRON SUCROSE 300 MG in SODIUM CHLORIDE 0.9% 250 ML IV ONE (09:28)
--- NOTE | 2024-08-19 14:39 | Hospitalist Progress Note ---
Date of Service August 19, 2024 Assessment & Plan (1) Generalized weakness: (2) Anemia: Plan Rafael Cantu is a 69y/o M with PMHx significant for severe aortic stenosis s/p TAVR on 06/19/24, chronic LBBB, Mobitz type 2 second degree AV block s/p pacemaker placement on 07/02/24 with postoperative course complicated by episodes of sustained ventricular tachycardia requiring upgrade to an ICD on 07/04/24, HTN, HLD, mild nonobstructive CAD, DMII with diabetic nephropathy, REMBERTO on CPAP, pulmonary emphysema, longstanding iron deficiency anemia, BPH with LUTS, benign paroxysmal vertigo, glaucoma of both eyes, depression, GERD and generalized osteoarthritis. Patient with recent invasive cardiac procedures including TAVR on 06/19/24 for severe and pacemaker placement on 07/02/24 with postoperative course complicated by episodes of sustained ventricular tachycardia requiring upgrade to an ICD on 07/04/24. Pt with recent admission and prolonged course with infected pacemaker, bacteremia, endocarditis and subsequent removal of the pacemaker on 08/13/24. Currently has Lifevest in place. 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 10 angiectasia's were clipped with total 13 clips. S/P 2 unit PRBCs S/P venofer X 2 doses Serum iron 26 Appreciate GI input Aspirin, Eliquis on hold Will need follow-up with hematology on discharge Continue PPI PT OT, fall precautions Hemoglobin 8.0 today Discussed with GI today: Recommends to keep n.p.o. after midnight for possible EGD tomorrow Monitor CBC closely Transient bradycardia H/OAtrial flutter H/O SVT Amiodarone, metoprolol resumed Metoprolol succinate dose was decreased to 25 mg daily Eliquis held for now Appreciate cardiology input Continue LifeVest Chronic troponin elevation Likely demand ischemia Hx of TAVR Hx of pacemaker placement with subsequent removal LifeVest in place HTN CAD --Torsemide currently held Monitor volume status closely Continue metoprolol, rosuvastatin Aspirin on hold Enterococcus Bacteremia Infective endocarditis Continue Rocephin, ampicillin as previously recommended to finish IV antibiotic course till 09/13/2024 DVT Px: SCDs Re: Melena CODE STATUS DNI DNR Disposition Rehab as able Admission and Anticipated Discharge Date Admission Date: August 16, 2024 Subjective Patient is seen and examined at bedside Reports last melanotic bowel movement yesterday overnight Discussed with GI today Still has some dyspnea on exertion Denies any chest pain, dizziness, nausea, vomiting, abdominal pain No other complaints today Review of Systems Review of Systems: All systems reviewed & are unremarkable except as noted in Subjective Physical Exam Physical Exam: Physical Exam: Vitals signs as noted above General Appearance:Obese, no apparent distress Head: normocephalic, Atraumatic Eyes: normal inspection, EOMI Neck: supple, Trachea midline Respiratory/Chest: Decreased breath sounds, CTA, No accessory muscle use Cardiovascular: Irregularly irregular, no murmur, +vest Abdomen/GI:Soft, Non tender, Bowel sounds present Extremities/Musculoskeletal:normal inspection, 12+ edema Neurologic/Psych:AAOX3, grossly no focal neurological deficits Skin: normal color, warm Results & Data Results & Data Vital Signs (Past 12 Hours) Vital Signs Temp Pulse Pulse Resp BP Pulse Ox O2 Del Method 08/19/24 10:50 36.3 C L 62 18 105/60 94 Room Air 08/19/24 07:50 36.8 C 87 18 113/70 92 Room Air 08/19/24 07:00 59 L 08/19/24 03:09 74 19 95 08/19/24 03:05 36.5 C 56 L 18 112/71 95 Room Air FiO2 08/19/24 10:50 08/19/24 07:50 08/19/24 07:00 08/19/24 03:09 21 08/19/24 03:05 Laboratory Results Short CBC 08/19/24 Range/Units 06:26 WBC 6.95 (4.8-10.8) K/ul Hgb 8.0 L (14.0-18.0) g/dl Hct 26.7 L (42.0-52.0) % Plt Count 233 (130-400) K/uL BMP 08/19/24 06:26 Sodium 141 Potassium 3.9 Chloride 108 H Carbon Dioxide 28 BUN 15 Creatinine 0.99 Glucose 145 H Calcium 9.1
[2024-08-19] MEDS: PANTOprazole 40 MG TAB PO SCH (21:04)
[2024-08-20] MEDS: INSULIN ASPART PER UNIT CHARGE SC SCH ×2 (06:40→16:58)
[2024-08-20] MEDS ORDERED: Nursing to Pharmacy Communication SCH ×2 (06:45→15:45)
[2024-08-20] MEDS: FUROSEMIDE INJ 20 MG/2 ML VIAL IV ONE (06:47)
[2024-08-20 07:37] LABS: Hemoglobin 8.1 g/dl (14.0-18.0)
--- NOTE | 2024-08-20 12:16 | Gastroenterology Progress Note ---
Date of Service August 20, 2024 Assessment & Plan (1) Chronic anemia: Plan: Patient does not seem to be having any active GI bleeding. hgb stable. Discussed case with Dr. Garcia. - In light of being stable without active GI bleeding and significant cardiac history, would defer upper endoscopy at this time. - continue to follow hgb/hct. - continue with protonix 40mg BID. - he should have an enteroscopy set up with his home GI at [facility] upon discharge given history of small bowel AVMs. Admission and Anticipated Discharge Date Admission Date: August 16, 2024 Supervising Physician Co-Signing Physician Notes I saw and examined this patient with our nurse practitioner and agree with her assessment and plan. Reviewed capsule report from [facility] which demonstrated several vascular ectasias in the proximal and mid small bowel. These apparently were treated endoscopically after the capsule study. This was done recently. Reasonable to resume his Eliquis in light of the fact that his hemoglobin remained stable now and he has not had a bowel movement for 48 hours. However he is someone who is at increased risk for chronic blood loss due to being on anticoagulation in the setting of small bowel vascular ectasias. He may be a candidate for thalidomide or octreotide if he has recurrent bleeding Subjective Patient reportedly had a dark stool on Tuesday, none since. hgb stable at 8.1 (previously 8). rest of GI ros are unremarkable. Colonoscopy 05/02/2024 at [facility]: Preparation of the colon was fair. - The examined portion of the ileum was normal. - Diverticulosis in the sigmoid colon. - Internal hemorrhoids. - A single non-bleeding colonic angioectasia. Treated with argon beam coagulation. Clips (MR conditional) were placed. - The examination was otherwise normal on direct and retroflexion views. - No specimens collected. 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 Pylori Duodenitis in the bulb Colonoscopy 06/2023: - The examined colon appeared normal. - Sigmoid diverticulosis in the sigmoid colon. - Internal hemorrhoids. - The examination was otherwise normal on direct and retroflexion views. Review of Systems Review of Systems: All systems reviewed & are unremarkable except as noted in HPI & below Physical Exam Constitutional: WD/WN, vitals as above Respiratory: normal respiratory effort, lungs clear to auscultation Cardiovascular: Rate/Rhythm: regular rate and regular rhythm Gastrointestinal (Abdomen): normal bowel sounds, soft, nontender, no hepatosplenomegaly Psychiatric: Orientation: alert and oriented x 3 Affect: euthymic affect Results & Data Results & Data Vital Signs (Past 12 Hours) Vital Signs Temp Pulse Pulse Resp BP Pulse Ox O2 Del Method 08/20/24 11:23 97.5 F L 67 18 117/66 93 Room Air 08/20/24 07:47 49 L 08/20/24 07:06 97.5 F L 67 18 124/71 97 CPAP 08/20/24 02:39 70 20 94 08/20/24 02:38 97.7 F 87 20 124/75 96 CPAP 08/20/24 02:03 50 L FiO2 08/20/24 11:23 08/20/24 07:47 08/20/24 07:06 08/20/24 02:39 21 08/20/24 02:38 08/20/24 02:03 Laboratory Results Laboratory Results - last 48 hr 08/16/24 08/18/24 08/19/24 17:02 20:06 06:26 WBC 6.95 RBC 3.05 L Hgb 8.0 L Hct 26.7 L MCV 87.5 MCH 26.2 MCHC 30.0 L RDW Std Deviation 66.4 H RDW Coeff of Freddie 21.4 H Plt Count 233 MPV 11.0 Sodium 141 Potassium 3.9 Chloride 108 H Carbon Dioxide 28 Anion Gap 5 BUN 15 Creatinine 0.99 Est Cr Clr Drug Dosing 80.6 eGFR 81.44 BUN/Creatinine Ratio 15.2 Glucose 145 H POC Glucose 142 H Calcium 9.1 Crossmatch See Detail 08/19/24 08/19/24 08/19/24 07:00 10:49 16:00 WBC RBC Hgb Hct MCV MCH MCHC RDW Std Deviation RDW Coeff of Freddie Plt Count MPV Sodium Potassium Chloride Carbon Dioxide Anion Gap BUN Creatinine Est Cr Clr Drug Dosing eGFR BUN/Creatinine Ratio Glucose POC Glucose 168 H 219 H 136 H Calcium Crossmatch 08/19/24 08/20/24 08/20/24 20:14 06:08 07:03 WBC RBC Hgb Hct MCV MCH MCHC RDW Std Deviation RDW Coeff of Freddie Plt Count MPV Sodium Potassium Chloride Carbon Dioxide Anion Gap BUN Creatinine Est Cr Clr Drug Dosing eGFR BUN/Creatinine Ratio Glucose POC Glucose 154 H 162 H 168 H Calcium Crossmatch 08/20/24 08/20/24 08/20/24 07:19 11:38 16:13 WBC RBC Hgb 8.1 L Hct 27.0 L MCV MCH MCHC RDW Std Deviation RDW Coeff of Freddie Plt Count MPV Sodium Potassium Chloride Carbon Dioxide Anion Gap BUN Creatinine Est Cr Clr Drug Dosing eGFR BUN/Creatinine Ratio Glucose POC Glucose 197 H 165 H Calcium Crossmatch Coding Level of Care Code 08461 SUB INP/OBS CARE 2/35MIN Diagnoses Chronic anemia D64.9
--- NOTE | 2024-08-20 15:29 | Hospitalist Progress Note ---
Date of Service August 20, 2024 Assessment & Plan (1) Generalized weakness: (2) Anemia: Plan Rafael Cantu is a 69y/o M with PMHx significant for severe aortic stenosis s/p TAVR on 06/19/24, chronic LBBB, Mobitz type 2 second degree AV block s/p pacemaker placement on 07/02/24 with postoperative course complicated by episodes of sustained ventricular tachycardia requiring upgrade to an ICD on 07/04/24, HTN, HLD, mild nonobstructive CAD, DMII with diabetic nephropathy, REMBERTO on CPAP, pulmonary emphysema, longstanding iron deficiency anemia, BPH with LUTS, benign paroxysmal vertigo, glaucoma of both eyes, depression, GERD and generalized osteoarthritis. Patient with recent invasive cardiac procedures including TAVR on 06/19/24 for severe and pacemaker placement on 07/02/24 with postoperative course complicated by episodes of sustained ventricular tachycardia requiring upgrade to an ICD on 07/04/24. Pt with recent admission and prolonged course with infected pacemaker, bacteremia, endocarditis and subsequent removal of the pacemaker on 08/13/24. Currently has Lifevest in place. 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 10 angiectasia's were clipped with total 13 clips. S/P 2 unit PRBCs S/P venofer X 2 doses Serum iron 26 Appreciate GI input Aspirin, Eliquis on hold Will need follow-up with hematology on discharge Continue PPI PT OT, fall precautions Hemoglobin 8.1 today Discussed with GI today: Continue PPI twice daily. Plan for EGD/resuming aspirin, Eliquis to be determined No melena today Transient bradycardia H/OAtrial flutter H/O SVT Amiodarone, metoprolol resumed Metoprolol succinate dose was decreased to 25 mg daily Eliquis held for now Appreciate cardiology input Continue LifeVest Chronic troponin elevation Likely demand ischemia Hx of TAVR Hx of pacemaker placement with subsequent removal LifeVest in place HTN CAD --Torsemide currently held Monitor volume status closely Continue metoprolol, rosuvastatin Aspirin on hold Enterococcus Bacteremia Infective endocarditis Continue Rocephin, ampicillin as previously recommended to finish IV antibiotic course till 09/13/2024 DVT Px: SCDs Re: Melena CODE STATUS DNI DNR Disposition Rehab as able Admission and Anticipated Discharge Date Admission Date: August 16, 2024 Subjective Patient is seen and examined at bedside Denies any melena overnight or this morning Discussed with GI today No other complaints today Some dyspnea on exertion Denies any chest pain, dizziness, nausea, vomiting, abdominal pain Review of Systems Review of Systems: All systems reviewed & are unremarkable except as noted in Subjective Physical Exam Physical Exam: Physical Exam: Vitals signs as noted above General Appearance:Obese, no apparent distress Head: normocephalic, Atraumatic Eyes: normal inspection, EOMI Neck: supple, Trachea midline Respiratory/Chest: Decreased breath sounds, CTA, No accessory muscle use Cardiovascular: Irregularly irregular, no murmur, +vest Abdomen/GI:Soft, Non tender, Bowel sounds present Extremities/Musculoskeletal:normal inspection, 12+ edema Neurologic/Psych:AAOX3, grossly no focal neurological deficits Skin: normal color, warm Results & Data Results & Data Vital Signs (Past 12 Hours) Vital Signs Temp Pulse Pulse Resp BP Pulse Ox O2 Del Method 08/20/24 15:00 08/20/24 11:23 36.4 C L 67 18 117/66 93 Room Air 08/20/24 07:47 49 L 08/20/24 07:06 36.4 C L 67 18 124/71 97 CPAP O2 Del Method 08/20/24 15:00 Room Air 08/20/24 11:23 08/20/24 07:47 08/20/24 07:06 Laboratory Results Short CBC 08/20/24 Range/Units 07:19 Hgb 8.1 L (14.0-18.0) g/dl Hct 27.0 L (42.0-52.0) %
[2024-08-21 07:44] LABS: Hematocrit (blood only) 28.4 % (42.0-52.0); Hemoglobin 8.4 g/dl (14.0-18.0); Mean Corpuscular Hemoglobin 26.6 pg (25.0-34.0); Mean Corpuscular Hgb Conc 29.6 g/dL (32.0-36.0); Mean Corpuscular Volume 89.9 fL (80.0-100.0); Mean Platelet Volume 10.6 fL (9.4-12.4); Platelet Count 196 K/uL (130-400); RDW Coefficient of Variation 23.2 % (11.5-14.5); RDW Standard Deviation 71.7 fL (36.4-46.3); Red Blood Count 3.16 M/uL (4.70-6.10); White Blood Count 7.82 K/ul (4.8-10.8)
[2024-08-21 07:46] LABS: Calcium 8.9 mg/dl (8.6-10.3); Creatinine Clr Calc Pharmacy 69.8 ml/min; Potassium 3.9 mmol/L (3.5-5.1)
--- NOTE | 2024-08-21 10:46 | Gastroenterology Progress Note ---
Date of Service August 21, 2024 Assessment & Plan (1) Anemia: Plan Patient is planned to restart anticoagulation. will need to monitor for bleeding while doing so. - continue to follow hgb/hct. transfuse as needed. - continue with protonix 40mg BID. Admission and Anticipated Discharge Date Admission Date: August 16, 2024 Supervising Physician Co-Signing Physician Notes I saw and examined this patient with our nurse practitioner and agree with her assessment and plan. Denies any abdominal pain. Hemoglobin hematocrit stable. No overt bleeding. Agree with starting anticoagulation and antiplatelet therapy. Can follow-up with us in the GI office as an outpatient. Subjective Patient has not had any signs of active GI bleeding. GI ros unremarkable. 08/21 hgb 8.4 (previously 8.1). Review of Systems Review of Systems: All systems reviewed & are unremarkable except as noted in HPI & below Physical Exam Constitutional: WD/WN, vitals as above Respiratory: normal respiratory effort, lungs clear to auscultation Cardiovascular: Rate/Rhythm: regular rate and regular rhythm Gastrointestinal (Abdomen): normal bowel sounds, soft, nontender, no hepatosplenomegaly Psychiatric: Orientation: alert and oriented x 3 Affect: euthymic affect Results & Data Results & Data Vital Signs (Past 12 Hours) Vital Signs Temp Pulse Pulse Resp BP Pulse Ox O2 Del Method 08/21/24 08:00 52 L 08/21/24 07:00 97.7 F 54 L 18 113/63 93 Room Air 08/21/24 02:56 97.7 F 52 L 20 110/65 97 CPAP 08/21/24 02:48 52 L 22 95 08/20/24 23:30 52 L 21 95 08/20/24 22:51 97.7 F 77 20 114/69 97 CPAP FiO2 08/21/24 08:00 08/21/24 07:00 08/21/24 02:56 08/21/24 02:48 21 08/20/24 23:30 21 08/20/24 22:51 Laboratory Results Laboratory Results - last 48 hr 08/19/24 08/19/24 08/20/24 16:00 20:14 06:08 WBC RBC Hgb Hct MCV MCH MCHC RDW Std Deviation RDW Coeff of Freddie Plt Count MPV Sodium Potassium Chloride Carbon Dioxide Anion Gap BUN Creatinine Est Cr Clr Drug Dosing eGFR BUN/Creatinine Ratio Glucose POC Glucose 136 H 154 H 162 H Calcium 08/20/24 08/20/24 08/20/24 07:03 07:19 11:38 WBC RBC Hgb 8.1 L Hct 27.0 L MCV MCH MCHC RDW Std Deviation RDW Coeff of Freddie Plt Count MPV Sodium Potassium Chloride Carbon Dioxide Anion Gap BUN Creatinine Est Cr Clr Drug Dosing eGFR BUN/Creatinine Ratio Glucose POC Glucose 168 H 197 H Calcium 08/20/24 08/20/24 08/21/24 16:13 20:12 06:59 WBC RBC Hgb Hct MCV MCH MCHC RDW Std Deviation RDW Coeff of Freddie Plt Count MPV Sodium Potassium Chloride Carbon Dioxide Anion Gap BUN Creatinine Est Cr Clr Drug Dosing eGFR BUN/Creatinine Ratio Glucose POC Glucose 165 H 119 H 178 H Calcium 08/21/24 08/21/24 07:08 11:17 WBC 7.82 RBC 3.16 L Hgb 8.4 L Hct 28.4 L MCV 89.9 MCH 26.6 MCHC 29.6 L RDW Std Deviation 71.7 H RDW Coeff of Freddie 23.2 H Plt Count 196 MPV 10.6 Sodium 140 Potassium 3.9 Chloride 109 H Carbon Dioxide 25 Anion Gap 6 BUN 15 Creatinine 1.15 Est Cr Clr Drug Dosing 69.8 eGFR 68.04 BUN/Creatinine Ratio 13.0 Glucose 171 H POC Glucose 166 H Calcium 8.9 Coding Level of Care Code 48170 SUB INP/OBS CARE 06/09MIN Diagnoses Anemia D64.9
[2024-08-21] MEDS ORDERED: APIXABAN 5 MG TABLET PO SCH (11:15)
[2024-08-21] MEDS: ASPIRIN 81 MG CHEW PO SCH (12:42)
[2024-08-21] MEDS: POLYETHYLENE (MIRALAX) 17 GM PACK PO ONE (15:17)
--- NOTE | 2024-08-21 15:58 | Hospitalist Progress Note ---
Date of Service August 21, 2024 Assessment & Plan (1) Generalized weakness: (2) Anemia: Plan Rafael Cantu is a 69y/o M with PMHx significant for severe aortic stenosis s/p TAVR on 06/19/24, chronic LBBB, Mobitz type 2 second degree AV block s/p pacemaker placement on 07/02/24 with postoperative course complicated by episodes of sustained ventricular tachycardia requiring upgrade to an ICD on 07/04/24, HTN, HLD, mild nonobstructive CAD, DMII with diabetic nephropathy, REMBERTO on CPAP, pulmonary emphysema, longstanding iron deficiency anemia, BPH with LUTS, benign paroxysmal vertigo, glaucoma of both eyes, depression, GERD and generalized osteoarthritis. Patient with recent invasive cardiac procedures including TAVR on 06/19/24 for severe and pacemaker placement on 07/02/24 with postoperative course complicated by episodes of sustained ventricular tachycardia requiring upgrade to an ICD on 07/04/24. Pt with recent admission and prolonged course with infected pacemaker, bacteremia, endocarditis and subsequent removal of the pacemaker on 08/13/24. Currently has Lifevest in place. 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 10 angiectasia's were clipped with total 13 clips. S/P 2 unit PRBCs S/P venofer X 2 doses Serum iron 26 Appreciate GI input and recommendations- the patient is not for any EGD/colonoscopy now Will need follow-up with hematology on discharge Continue PPI twice daily Hemoglobin remains stable and the patient denies any significant symptoms No more evidence of acute blood loss Will get PT OT for possible placement Transient bradycardia H/OAtrial flutter H/O SVT Amiodarone, metoprolol resumed Metoprolol succinate dose was decreased to 25 mg daily Appreciate cardiology input and recommendation Continue LifeVest Aspirin and Eliquis were on hold since admission due to acute GI bleed and low hemoglobin Discussed with GI and both the medicine can be restarted Will start aspirin this morning and Eliquis this afternoon Chronic troponin elevation Likely demand ischemia Hx of TAVR Hx of pacemaker placement with subsequent removal LifeVest in place HTN CAD --Torsemide currently held Monitor volume status closely Continue metoprolol, rosuvastatin Aspirin and Eliquis have been restarted Enterococcus Bacteremia Infective endocarditis Continue Rocephin, ampicillin as previously recommended to finish IV antibiotic course till 09/13/2024 DVT Px: SCDs Re: Melena CODE STATUS DNI DNR Disposition Rehab as able Admission and Anticipated Discharge Date Admission Date: August 16, 2024 Subjective 08/21/2024 The patient was seen and examined in telemetry unit He has been feeling much better but has not have any bowel movement for the last 4 days Denies any cardiac symptoms, no abdominal pain nausea and or vomiting Awaiting PT evaluation for placement Review of Systems Review of Systems: All systems reviewed and are unremarkable except as noted below Physical Exam Physical Exam: Sitting at the edge of the bed without any acute distress Constitutional: well developed, well nourished, + ill appearing and + obese Eyes: PERRL, conjunctivae normal, anicteric sclerae ENMT: external ear and nose normal, oropharynx normal Neck: trachea midline, no thyromegaly Respiratory: no respiratory distress Auscultation: lungs clear to auscultation bilaterally Cardiovascular: Rate/Rhythm: regular rate and regular rhythm; not tachycardic Heart Sounds: normal S1 and normal S2; no murmur Extremities: + edema ( trace edema bilaterally) Gastrointestinal (Abdomen): Inspection/Auscultation: + abdomen distended and normal bowel sounds Percussion/Palpation: abdomen soft; abdomen nontender Musculoskeletal: No acute arthritis involving any of the joint Neurologic: normal touch/pain/proprioception and moves all extremities; no focal motor deficits Psychiatric: A+Ox3, euthymic affect Lymphatic: no cervical or axillary lymphadenopathy Results & Data Results & Data Vital Signs (Past 12 Hours) Vital Signs Temp Pulse Pulse Resp BP Pulse Ox Pulse Ox 08/21/24 15:00 96 08/21/24 11:18 36.4 C L 54 L 18 114/66 96 08/21/24 08:00 52 L 08/21/24 07:00 36.5 C 54 L 18 113/63 93 O2 Del Method O2 Del Method 08/21/24 15:00 Room Air 08/21/24 11:18 Room Air 08/21/24 08:00 08/21/24 07:00 Room Air Laboratory Results Short CBC 08/21/24 Range/Units 07:08 WBC 7.82 (4.8-10.8) K/ul Hgb 8.4 L (14.0-18.0) g/dl Hct 28.4 L (42.0-52.0) % Plt Count 196 (130-400) K/uL BMP 08/21/24 07:08 Sodium 140 Potassium 3.9 Chloride 109 H Carbon Dioxide 25 BUN 15 Creatinine 1.15 Glucose 171 H Calcium 8.9 Medications Administered Current Inpatient Medications Acetaminophen (Acetaminophen 325 Mg Tab) 650 mg PO Q4 PRN PRN Reason: Fever > 100.4 F Or Pain Stop: 09/15/24 21:27 Last Admin: 08/16/24 22:55 Dose: 650 mg Amiodarone HCl (Amiodarone 200 Mg Tab) 200 mg PO BIDM [facility] Stop: 09/16/24 07:59 Last Admin: 08/21/24 08:37 Dose: 200 mg Apixaban (Apixaban 5 Mg Tablet) 5 mg PO BID [facility] Stop: 09/20/24 20:59 Ascorbic Acid (Ascorbic Acid 500 Mg Tab) 1,000 mg PO BID [facility] Stop: 09/15/24 21:44 Last Admin: 08/21/24 08:36 Dose: 1,000 mg Aspirin (Aspirin 81 Mg Chew) 81 mg PO DAILY [facility] Stop: 09/20/24 11:14 Last Admin: 08/21/24 12:42 Dose: 81 mg Atropine Sulfate (Atropine Sulfate 0.1 Mg/Ml 10ml Syr) 1 mg IV Q3M PRN PRN Reason: symptomatic bradycardia Stop: 09/16/24 00:00 Cyanocobalamin (Cyanocobalamin (B-12) 500 Mcg Tablet) 1,000 mcg PO DAILY [facility] Stop: 09/16/24 08:59 Last Admin: 08/21/24 08:38 Dose: 1,000 mcg Dextrose (Dextrose 50% 50 Ml Syringe) 25 - 50 ml IV UD PRN; Protocol PRN Reason: Hypoglycemia Protocol Stop: 09/15/24 21:27 Docusate Sodium (Docusate Sodium 100 Mg Cap) 100 mg PO BID [facility] Stop: 09/15/24 21:27 Last Admin: 08/21/24 08:39 Dose: 100 mg Ferrous Sulfate (Ferrous Sulfate 325 Mg Tab) 325 mg PO DAILY [facility] Stop: 09/16/24 08:59 Last Admin: 08/21/24 08:37 Dose: 325 mg Finasteride (Finasteride 5 Mg Tab) 5 mg PO QAM [facility] Stop: 09/16/24 08:59 Last Admin: 08/21/24 08:38 Dose: 5 mg Folic Acid (Folic Acid 1 Mg Tab) 1 mg PO DAILY [facility] Stop: 09/16/24 08:59 Last Admin: 08/21/24 08:38 Dose: 1 mg Glucagon (Glucagon For Inj 1 Mg Vial) 1 mg SQ UD PRN; Protocol PRN Reason: Hypoglycemia Protocol Stop: 09/15/24 21:27 Glucose (Glucose 40% Gel 15 Gm Tube) 15 - 30 gm PO UD PRN; Protocol PRN Reason: Hypoglycemia Protocol Stop: 09/15/24 21:27 Glucose (Glucose 10 Tab/Tube) 4 - 8 tab PO UD PRN; Protocol PRN Reason: Hypoglycemia Protocol Stop: 09/15/24 21:27 Guaifenesin (Guaifenesin 600 Mg Tabcr) 600 mg PO Q12 [facility] Stop: 09/15/24 21:27 Last Admin: 08/21/24 08:37 Dose: 600 mg Heparin Sodium (Beef Lung) (Heparin 10 Unit/Ml 5 Ml Flush) 5 ml FLUSH PRN PRN PRN Reason: Flush Stop: 09/16/24 03:41 Last Admin: 08/21/24 11:06 Dose: 5 ml Ceftriaxone Sodium (Rocephin) 2,000 mg in 50 mls @ 100 mls/hr IV Q12H [facility] Stop: 09/27/24 21:59 Last Infusion: 08/21/24 09:06 Dose: Infused Ampicillin Sodium 2,000 mg/ (Sodium Chloride) 100 mls @ 200 mls/hr IV Q4H [facility] Stop: 09/27/24 21:59 Last Infusion: 08/21/24 15:06 Dose: Infused Insulin Aspart (Insulin Aspart Per Unit Charge) 0 units SC ACHS [facility] Stop: 09/19/24 05:59 Last Admin: 08/21/24 12:01 Dose: 4 units Metoprolol Succinate (Metoprolol Succ 25mg Ext Rel Tab) 25 mg PO QAM [facility] Stop: 09/16/24 09:44 Last Admin: 08/21/24 08:37 Dose: 25 mg Miscellaneous (Carbohydrates For Hypoglycemia ) 15 - 30 gm PO UD PRN PRN Reason: Hypoglycemia Protocol Stop: 09/15/24 21:27 Multivitamins (Multivitamin Tab) 1 tab PO QAM [facility] Stop: 09/16/24 08:59 Last Admin: 08/21/24 08:38 Dose: 1 tab Oxycodone HCl (Oxycodone Hcl Ir 5 Mg Tab (Immediate Release)) 5 mg PO Q6 PRN PRN Reason: SEVERE PAIN Stop: 08/30/24 21:27 Pantoprazole Sodium (Pantoprazole 40 Mg Tab) 40 mg PO BID [facility] Stop: 09/18/24 20:59 Last Admin: 08/21/24 08:37 Dose: 40 mg Rosuvastatin Calcium (Rosuvastatin Calcium 20 Mg Tab) 40 mg PO HS [facility] Stop: 09/15/24 21:27 Last Admin: 08/20/24 20:35 Dose: 40 mg Saccharomyces Boulardii (Saccharomyces Boulardii 250 Mg Cap) 250 mg PO DAILY [facility] Stop: 09/16/24 08:59 Last Admin: 08/21/24 08:35 Dose: 250 mg Tamsulosin HCl (Tamsulosin Hcl 0.4 Mg Cap) 0.4 mg PO HS [facility] Stop: 09/15/24 21:27 Last Admin: 08/20/24 20:38 Dose: 0.4 mg Vitamin D (Cholecalciferol 125 Mcg (5,000 Units) Tab) 125 mcg PO DAILY [facility] Stop: 09/16/24 08:59 Last Admin: 08/21/24 08:38 Dose: 125 mcg
[2024-08-21] MEDS: APIXABAN 5 MG TABLET PO SCH (20:39)
[2024-08-22] MEDS: bisacodyL 10 MG SUPP PR STA (07:16)
[2024-08-22 07:34] LABS: Basophils # (auto) 0.01 K/uL (0.00-0.20); Basophils % (auto) 0.2 %; Eosinophils # (auto) 0.25 K/uL (0.00-0.50); Eosinophils % (auto) 3.8 %; Hematocrit (blood only) 27.3 % (42.0-52.0); Hemoglobin 8.1 g/dl (14.0-18.0); Immature Granulocytes # (auto) 0.04 K/uL (0.01-0.20); Immature Granulocytes % (auto) 0.6 %; Lymphocytes # (auto) 0.44 K/uL (1.20-3.40); Lymphocytes % (auto) 6.7 %; Mean Corpuscular Hgb Conc 29.7 g/dL (32.0-36.0); Mean Platelet Volume 10.8 fL (9.4-12.4); Monocytes # (auto) 0.46 K/uL (0.11-0.59); Neutrophils # (auto) 5.35 K/uL (1.40-6.50); Neutrophils % (auto) 81.7 %; Platelet Count 173 K/uL (130-400); RDW Coefficient of Variation 23.7 % (11.5-14.5); RDW Standard Deviation 78.4 fL (36.4-46.3); White Blood Count 6.55 K/ul (4.8-10.8)
[2024-08-22 07:52] LABS: Anisocytosis Present; Polychromasia 1+; Tear Drop Cells 1+
[2024-08-22 08:00] LABS: BUN Creatinine Ratio 11.8 (10-20); Calcium 8.7 mg/dl (8.6-10.3); Creatinine Clr Calc Pharmacy 73.1 ml/min; Magnesium 2.1 mg/dl (1.7-2.4); Potassium 3.9 mmol/L (3.5-5.1)
--- NOTE | 2024-08-22 09:39 | Hospitalist Progress Note ---
Date of Service August 22, 2024 Assessment & Plan (1) Generalized weakness: (2) Anemia: Plan Rafael Cantu is a 69y/o M with PMHx significant for severe aortic stenosis s/p TAVR on 06/19/24, chronic LBBB, Mobitz type 2 second degree AV block s/p pacemaker placement on 07/02/24 with postoperative course complicated by episodes of sustained ventricular tachycardia requiring upgrade to an ICD on 07/04/24, HTN, HLD, mild nonobstructive CAD, DMII with diabetic nephropathy, REMBERTO on CPAP, pulmonary emphysema, longstanding iron deficiency anemia, BPH with LUTS, benign paroxysmal vertigo, glaucoma of both eyes, depression, GERD and generalized osteoarthritis. Patient with recent invasive cardiac procedures including TAVR on 06/19/24 for severe and pacemaker placement on 07/02/24 with postoperative course complicated by episodes of sustained ventricular tachycardia requiring upgrade to an ICD on 07/04/24. Pt with recent admission and prolonged course with infected pacemaker, bacteremia, endocarditis and subsequent removal of the pacemaker on 08/13/24. Currently has Lifevest in place. 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 10 angiectasia's were clipped with total 13 clips. S/P 2 unit PRBCs S/P venofer X 2 doses Serum iron 26 Appreciate GI input and recommendations- the patient is not for any EGD/colonoscopy now Will need follow-up with hematology on discharge Continue PPI twice daily Hemoglobin remains stable and the patient denies any significant symptoms No more evidence of acute blood loss PT recommended rehab and the patient is medically stable to be transferred to rehab when accepted He has had bowel movement and his hemoglobin remained stable Transient bradycardia H/OAtrial flutter H/O SVT Amiodarone, metoprolol resumed Metoprolol succinate dose was decreased to 25 mg daily Appreciate cardiology input and recommendation Continue LifeVest Aspirin and Eliquis were on hold since admission due to acute GI bleed and low hemoglobin Discussed with GI and both the medicine can be restarted Will start aspirin this morning and Eliquis this afternoon His heart rate remains stable Chronic troponin elevation Likely demand ischemia Hx of TAVR Hx of pacemaker placement with subsequent removal LifeVest in place HTN CAD --Torsemide currently held Monitor volume status closely Continue metoprolol, rosuvastatin Aspirin and Eliquis have been restarted Enterococcus Bacteremia Infective endocarditis Continue Rocephin, ampicillin as previously recommended to finish IV antibiotic course till 09/13/2024 He will have antibiotic as planned until 09/13/2024 DVT Px: SCDs Re: Melena CODE STATUS DNI DNR Disposition Rehab as able Admission and Anticipated Discharge Date Admission Date: August 16, 2024 Subjective 08/21/2024 The patient was seen and examined in telemetry unit He has been feeling much better but has not have any bowel movement for the last 4 days Denies any cardiac symptoms, no abdominal pain nausea and or vomiting Awaiting PT evaluation for placement 08/22/2024 The patient was seen and examined in telemetry unit He has been feeling much better today and denies any symptoms He has had bowel movement and that was black in color but not soft Denies any other significant symptoms Review of Systems Review of Systems: All systems reviewed and are unremarkable except as noted below Physical Exam Physical Exam: Sitting at the edge of the bed without any acute distress Constitutional: well developed, well nourished, + ill appearing and + obese Eyes: PERRL, conjunctivae normal, anicteric sclerae ENMT: external ear and nose normal, oropharynx normal Neck: trachea midline, no thyromegaly Respiratory: no respiratory distress Auscultation: lungs clear to auscultation bilaterally Cardiovascular: Rate/Rhythm: regular rate and regular rhythm; not tachycardic Heart Sounds: normal S1 and normal S2; no murmur Extremities: + edema ( trace edema bilaterally) Gastrointestinal (Abdomen): Inspection/Auscultation: + abdomen distended and normal bowel sounds Percussion/Palpation: abdomen soft; abdomen nontender Neurologic: normal touch/pain/proprioception and moves all extremities; no focal motor deficits Psychiatric: A+Ox3, euthymic affect Lymphatic: no cervical or axillary lymphadenopathy Results & Data Results & Data Vital Signs (Past 12 Hours) Vital Signs Temp Pulse Pulse Resp BP Pulse Ox O2 Del Method 08/22/24 07:50 89 08/22/24 07:20 52 L 08/22/24 06:58 36.4 C L 52 L 18 100/55 L 91 Room Air 08/22/24 02:38 36.7 C 52 L 19 129/66 96 BiPAP 08/22/24 02:00 95 H 26 H 96 08/21/24 23:09 36.5 C 52 L 20 121/67 96 BiPAP 08/21/24 22:33 52 L 19 94 08/21/24 21:41 52 L FiO2 08/22/24 07:50 08/22/24 07:20 08/22/24 06:58 08/22/24 02:38 08/22/24 02:00 21 08/21/24 23:09 08/21/24 22:33 21 08/21/24 21:41 Laboratory Results Short CBC 08/22/24 Range/Units 07:15 WBC 6.55 (4.8-10.8) K/ul Hgb 8.1 L (14.0-18.0) g/dl Hct 27.3 L (42.0-52.0) % Plt Count 173 (130-400) K/uL BMP 08/22/24 07:15 Sodium 139 Potassium 3.9 Chloride 108 H Carbon Dioxide 26 BUN 13 Creatinine 1.10 Glucose 154 H Calcium 8.7 Medications Administered Current Inpatient Medications Acetaminophen (Acetaminophen 325 Mg Tab) 650 mg PO Q4 PRN PRN Reason: Fever > 100.4 F Or Pain Stop: 09/15/24 21:27 Last Admin: 08/16/24 22:55 Dose: 650 mg Amiodarone HCl (Amiodarone 200 Mg Tab) 200 mg PO BIDM [facility] Stop: 09/16/24 07:59 Last Admin: 08/22/24 08:35 Dose: 200 mg Apixaban (Apixaban 5 Mg Tablet) 5 mg PO BID [facility] Stop: 09/20/24 20:59 Last Admin: 08/22/24 08:33 Dose: 5 mg Ascorbic Acid (Ascorbic Acid 500 Mg Tab) 1,000 mg PO BID [facility] Stop: 09/15/24 21:44 Last Admin: 08/22/24 08:34 Dose: 1,000 mg Aspirin (Aspirin 81 Mg Chew) 81 mg PO DAILY [facility] Stop: 09/20/24 11:14 Last Admin: 08/22/24 08:33 Dose: 81 mg Atropine Sulfate (Atropine Sulfate 0.1 Mg/Ml 10ml Syr) 1 mg IV Q3M PRN PRN Reason: symptomatic bradycardia Stop: 09/16/24 00:00 Cyanocobalamin (Cyanocobalamin (B-12) 500 Mcg Tablet) 1,000 mcg PO DAILY [facility] Stop: 09/16/24 08:59 Last Admin: 08/22/24 08:34 Dose: 1,000 mcg Dextrose (Dextrose 50% 50 Ml Syringe) 25 - 50 ml IV UD PRN; Protocol PRN Reason: Hypoglycemia Protocol Stop: 09/15/24 21:27 Docusate Sodium (Docusate Sodium 100 Mg Cap) 100 mg PO BID [facility] Stop: 09/15/24 21:27 Last Admin: 08/22/24 08:33 Dose: 100 mg Ferrous Sulfate (Ferrous Sulfate 325 Mg Tab) 325 mg PO DAILY [facility] Stop: 09/16/24 08:59 Last Admin: 08/22/24 08:35 Dose: 325 mg Finasteride (Finasteride 5 Mg Tab) 5 mg PO QAM [facility] Stop: 09/16/24 08:59 Last Admin: 08/22/24 08:32 Dose: 5 mg Folic Acid (Folic Acid 1 Mg Tab) 1 mg PO DAILY [facility] Stop: 09/16/24 08:59 Last Admin: 08/22/24 08:35 Dose: 1 mg Glucagon (Glucagon For Inj 1 Mg Vial) 1 mg SQ UD PRN; Protocol PRN Reason: Hypoglycemia Protocol Stop: 09/15/24 21:27 Glucose (Glucose 40% Gel 15 Gm Tube) 15 - 30 gm PO UD PRN; Protocol PRN Reason: Hypoglycemia Protocol Stop: 09/15/24 21:27 Glucose (Glucose 10 Tab/Tube) 4 - 8 tab PO UD PRN; Protocol PRN Reason: Hypoglycemia Protocol Stop: 09/15/24 21:27 Guaifenesin (Guaifenesin 600 Mg Tabcr) 600 mg PO Q12 [facility] Stop: 09/15/24 21:27 Last Admin: 08/22/24 08:34 Dose: 600 mg Heparin Sodium (Beef Lung) (Heparin 10 Unit/Ml 5 Ml Flush) 5 ml FLUSH PRN PRN PRN Reason: Flush Stop: 09/16/24 03:41 Last Admin: 08/22/24 08:34 Dose: 5 ml Ceftriaxone Sodium (Rocephin) 2,000 mg in 50 mls @ 100 mls/hr IV Q12H [facility] Stop: 09/27/24 21:59 Last Admin: 08/22/24 09:26 Dose: 100 mls/hr Ampicillin Sodium 2,000 mg/ (Sodium Chloride) 100 mls @ 200 mls/hr IV Q4H [facility] Stop: 09/27/24 21:59 Last Infusion: 08/22/24 09:32 Dose: 0 mls/hr Insulin Aspart (Insulin Aspart Per Unit Charge) 0 units SC ACHS [facility] Stop: 09/19/24 05:59 Last Admin: 08/22/24 08:37 Dose: 3 units Metoprolol Succinate (Metoprolol Succ 25mg Ext Rel Tab) 25 mg PO QAM [facility] Stop: 09/16/24 09:44 Last Admin: 08/22/24 08:34 Dose: 25 mg Miscellaneous (Carbohydrates For Hypoglycemia ) 15 - 30 gm PO UD PRN PRN Reason: Hypoglycemia Protocol Stop: 09/15/24 21:27 Multivitamins (Multivitamin Tab) [facility] Stop: 09/16/24 08:59 Last Admin: 08/22/24 08:35 Dose: 1 tab Oxycodone HCl (Oxycodone Hcl Ir 5 Mg Tab (Immediate Release)) 5 mg PO Q6 PRN PRN Reason: SEVERE PAIN Stop: 08/30/24 21:27 Pantoprazole Sodium (Pantoprazole 40 Mg Tab) 40 mg PO BID [facility] Stop: 09/18/24 20:59 Last Admin: 08/22/24 08:35 Dose: 40 mg Rosuvastatin Calcium (Rosuvastatin Calcium 20 Mg Tab) 40 mg PO [facility] Stop: 09/15/24 21:27 Last Admin: 08/21/24 20:39 Dose: 40 mg Saccharomyces Boulardii (Saccharomyces Boulardii 250 Mg Cap) 250 mg PO DAILY [facility] Stop: 09/16/24 08:59 Last Admin: 08/22/24 08:33 Dose: 250 mg Tamsulosin HCl (Tamsulosin Hcl 0.4 Mg Cap) 0.4 mg PO [facility] Stop: 09/15/24 21:27 Last Admin: 08/21/24 20:40 Dose: 0.4 mg Vitamin D (Cholecalciferol 125 Mcg (5,000 Units) Tab) 125 mcg PO DAILY [facility] Stop: 09/16/24 08:59 Last Admin: 08/22/24 08:35 Dose: 125 mcg
[2024-08-23 02:46] VITALS: TEMP 98.1
[2024-08-23 08:03] VITALS: PULSE 84; RESP 20; O2SAT 93
--- NOTE | 2024-08-23 08:03 | Hospitalist Progress Note ---
Date of Service August 23, 2024 Assessment & Plan (1) Generalized weakness: (2) Anemia: Plan Rafael Cantu is a 69y/o M with PMHx significant for severe aortic stenosis s/p TAVR on 06/19/24, chronic LBBB, Mobitz type 2 second degree AV block s/p pacemaker placement on 07/02/24 with postoperative course complicated by episodes of sustained ventricular tachycardia requiring upgrade to an ICD on 07/04/24, HTN, HLD, mild nonobstructive CAD, DMII with diabetic nephropathy, REMBERTO on CPAP, pulmonary emphysema, longstanding iron deficiency anemia, BPH with LUTS, benign paroxysmal vertigo, glaucoma of both eyes, depression, GERD and generalized osteoarthritis. Patient with recent invasive cardiac procedures including TAVR on 06/19/24 for severe and pacemaker placement on 07/02/24 with postoperative course complicated by episodes of sustained ventricular tachycardia requiring upgrade to an ICD on 07/04/24. Pt with recent admission and prolonged course with infected pacemaker, bacteremia, endocarditis and subsequent removal of the pacemaker on 08/13/24. Currently has Lifevest in place. 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 10 angiectasia's were clipped with total 13 clips. S/P 2 unit PRBCs S/P venofer X 2 doses Serum iron 26 Appreciate GI input and recommendations- the patient is not for any EGD/colonoscopy now Will need follow-up with hematology on discharge Continue PPI twice daily Hemoglobin remains stable and the patient denies any significant symptoms No more evidence of acute blood loss PT recommended rehab and the patient is medically stable to be transferred to rehab when accepted He has had bowel movement and his hemoglobin remained stable Remains medically stable to be discharged Transient bradycardia H/OAtrial flutter H/O SVT Amiodarone, metoprolol resumed Metoprolol succinate dose was decreased to 25 mg daily Appreciate cardiology input and recommendation Continue LifeVest Aspirin and Eliquis were on hold since admission due to acute GI bleed and low hemoglobin Discussed with GI and both the medicine can be restarted Will start aspirin this morning and Eliquis this afternoon His heart rate remains stable Chronic troponin elevation Likely demand ischemia Hx of TAVR Hx of pacemaker placement with subsequent removal LifeVest in place HTN CAD --Torsemide currently held Monitor volume status closely Continue metoprolol, rosuvastatin Aspirin and Eliquis have been restarted Enterococcus Bacteremia Infective endocarditis Continue Rocephin, ampicillin as previously recommended to finish IV antibiotic course till 09/13/2024 He will have antibiotic as planned until 09/13/2024 DVT Px: SCDs Re: Melena CODE STATUS DNI DNR Disposition Rehab as able Admission and Anticipated Discharge Date Admission Date: August 16, 2024 Subjective 08/21/2024 The patient was seen and examined in telemetry unit He has been feeling much better but has not have any bowel movement for the last 4 days Denies any cardiac symptoms, no abdominal pain nausea and or vomiting Awaiting PT evaluation for placement 08/22/2024 The patient was seen and examined in telemetry unit He has been feeling much better today and denies any symptoms He has had bowel movement and that was black in color but not soft Denies any other significant symptoms 08/23/2024 The patient was seen and examined in telemetry unit He has been stable and ready to go home this morning Denies any significant symptoms Review of Systems Review of Systems: All systems reviewed and are unremarkable except as noted below Physical Exam Physical Exam: Sitting at the edge of the bed without any acute distress Constitutional: well developed, well nourished, + ill appearing and + obese Eyes: PERRL, conjunctivae normal, anicteric sclerae ENMT: external ear and nose normal, oropharynx normal Neck: trachea midline, no thyromegaly Respiratory: no respiratory distress Auscultation: lungs clear to auscultation bilaterally Cardiovascular: Rate/Rhythm: regular rate and regular rhythm; not tachycardic Heart Sounds: normal S1 and normal S2; no murmur Extremities: + edema ( trace edema bilaterally) Gastrointestinal (Abdomen): Inspection/Auscultation: + abdomen distended and normal bowel sounds Percussion/Palpation: abdomen soft; abdomen nontender Neurologic: normal touch/pain/proprioception and moves all extremities; no focal motor deficits Psychiatric: A+Ox3, euthymic affect Lymphatic: no cervical or axillary lymphadenopathy Results & Data Results & Data Vital Signs (Past 12 Hours) Vital Signs Temp Pulse Pulse Resp BP Pulse Ox O2 Del Method 08/23/24 03:15 51 L 16 96 08/23/24 02:45 36.7 C 51 L 19 127/81 96 BiPAP 08/22/24 23:47 66 19 118/70 97 BiPAP 08/22/24 22:39 91 H 19 97 08/22/24 22:06 52 L 08/22/24 20:11 36.9 C 54 L 20 114/54 L 95 Room Air FiO2 08/23/24 03:15 21 08/23/24 02:45 08/22/24 23:47 08/22/24 22:39 08/22/24 22:06 08/22/24 20:11
[2024-08-23 08:22] VITALS: BP 115/66
--- NOTE | 2024-08-24 08:18 | Discharge Summary ---
Date of Service August 24, 2024 Admission HPI Per Admitting Provider Rafael Cantu is a 69y/o M with PMHx significant for severe aortic stenosis s/p TAVR on 06/19/24, chronic LBBB, Mobitz type 2 second degree AV block s/p pacemaker placement on 07/02/24 with postoperative course complicated by episodes of sustained ventricular tachycardia requiring upgrade to an ICD on 07/04/24, HTN, HLD, mild nonobstructive CAD, DMII with diabetic nephropathy, REMBERTO on CPAP, pulmonary emphysema, longstanding iron deficiency anemia, BPH with LUTS, benign paroxysmal vertigo, glaucoma of both eyes, depression, GERD and generalized osteoarthritis. Patient with recent invasive cardiac procedures including TAVR on 06/19/24 for severe and pacemaker placement on 07/02/24 with postoperative course complicated by episodes of sustained ventricular tachycardia requiring upgrade to an ICD on 07/04/24. Pt with recent admission and prolonged course with infected pacemaker, bacteremia, endocarditis and subsequent removal of the pacemaker on 08/13/24. Currently has Lifevest in place. States that for the past 4 days he has been having increasing weakness with ambulation, unable to ambulate as far as he typically would. States that he has not been able to work with PT at the long term. feels very tired. Notes he has been having bloody bowel movements for some time. Denies associated SOB or chest pain. States he was evaluated at his rehab facility and advised to present to the ED for further evaluation. Admission Exam Per Admitting Provider Physical Exam: General: Alert, oriented. No acute distress Psych: Appropriate mood and affect HEENT: NC/AT CV: RRR, lifevest in place Resp: Breath sounds clear bilaterally, no increased effort of breathing Abdomen:Soft, nontender Extremities: trace edema in lower extremities bilaterally. Principal Diagnosis Symptomatic anemia, history of atrial flutter and SVT, history of TAVR, history of pacemaker placement and subsequent removal with LifeVest in place, Enterococcus bacteremia with ongoing IV antibiotic Discharge Exam Sitting at the edge of the bed without any acute distress Constitutional well developed, well nourished, + ill appearing and + obese Eyes PERRL, conjunctivae normal, anicteric sclerae ENMT external ear and nose normal, oropharynx normal Neck trachea midline, no thyromegaly Respiratory no respiratory distress Auscultation: lungs clear to auscultation bilaterally Cardiovascular Rate/Rhythm: regular rate and regular rhythm; not tachycardic Heart Sounds: normal S1 and normal S2; no murmur Extremities: + edema ( trace edema bilaterally) Gastrointestinal (Abdomen) Inspection/Auscultation: + abdomen distended and normal bowel sounds Percussion/Palpation: abdomen soft; abdomen nontender Neurologic normal touch/pain/proprioception and moves all extremities; no focal motor deficits Psychiatric A+Ox3, euthymic affect Lymphatic no cervical or axillary lymphadenopathy Discharge Data Allergies Allergy/AdvReac Type Severity Reaction Status Date / Time nickel Allergy Unknown RASH Verified 07/04/24 15:10 tetanus toxoid, adsorbed Allergy Unknown ITCHING Verified 07/04/24 15:10 empagliflozin AdvReac Unknown URINARY Verified 07/04/24 15:10 [From Jardiance] TRACT INFECTION lisinopril AdvReac Unknown Cough Verified 07/04/24 15:10 polyethylene glycol 3350 AdvReac Unknown Verified 07/04/24 15:10 [From Miralax] Consultations 08/16/24 16:50 ED Decision to Admit Stat 08/16/24 20:30 Consult Gastroenterology Routine 08/17/24 00:01 Consult Cardiology Routine Hospital Course (1) Generalized weakness: (2) Anemia: Niharika Cantu is a 69y/o M with PMHx significant for severe aortic stenosis s/p TAVR on 06/19/24, chronic LBBB, Mobitz type 2 second degree AV block s/p pacemaker placement on 07/02/24 with postoperative course complicated by episodes of sustained ventricular tachycardia requiring upgrade to an ICD on 07/04/24, HTN, HLD, mild nonobstructive CAD, DMII with diabetic nephropathy, REMBERTO on CPAP, pulmonary emphysema, longstanding iron deficiency anemia, BPH with LUTS, benign paroxysmal vertigo, glaucoma of both eyes, depression, GERD and generalized osteoarthritis. Patient with recent invasive cardiac procedures including TAVR on 06/19/24 for severe and pacemaker placement on 07/02/24 with postoperative course complicated by episodes of sustained ventricular tachycardia requiring upgrade to an ICD on 07/04/24. Pt with recent admission and prolonged course with infected pacemaker, bacteremia, endocarditis and subsequent removal of the pacemaker on 08/13/24. Currently has Lifevest in place. 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 10 angiectasia's were clipped with total 13 clips. S/P 2 unit PRBCs S/P venofer X 2 doses Serum iron 26 Appreciate GI input and recommendations- the patient is not for any EGD/colonoscopy now Will need follow-up with hematology on discharge Continue PPI twice daily Hemoglobin remains stable and the patient denies any significant symptoms No more evidence of acute blood loss PT recommended rehab and the patient is medically stable to be transferred to rehab when accepted He has had bowel movement and his hemoglobin remained stable Remains medically stable to be discharged Transient bradycardia H/OAtrial flutter H/O SVT Amiodarone, metoprolol resumed Metoprolol succinate dose was decreased to 25 mg daily Appreciate cardiology input and recommendation Continue LifeVest Aspirin and Eliquis were on hold since admission due to acute GI bleed and low hemoglobin Discussed with GI and both the medicine can be restarted Will start aspirin this morning and Eliquis this afternoon His heart rate remains stable Chronic troponin elevation Likely demand ischemia Hx of TAVR Hx of pacemaker placement with subsequent removal LifeVest in place HTN CAD --Torsemide currently held Monitor volume status closely Continue metoprolol, rosuvastatin Aspirin and Eliquis have been restarted Enterococcus Bacteremia Infective endocarditis Continue Rocephin, ampicillin as previously recommended to finish IV antibiotic course till 09/13/2024 He will have antibiotic as planned until 09/13/2024 DVT Px: SCDs Re: Melena CODE STATUS DNI DNR Disposition Rehab as able Total Time Total Time Spent Total Time Spent (In Minutes): 40 Minutes Discharge Plan Discharge Items Patient Disposition: Transfer Nursing Home Fac Reason For Visit: WEAKNESS Discharge Diagnosis: Symptomatic anemia, history of atrial flutter and SVT, history of TAVR, history of pacemaker placement and subsequent removal with LifeVest in place, Enterococcus bacteremia with ongoing IV antibiotic Condition on Discharge: Fair Activity: Resume your previous activity Non-emergency contact: Primary Care Provider Call non-emergency contact if: you have any medication questions and your symptoms worsen Follow-up/Referrals: Declan Dejesus MD [Primary Care Provider] - ( Please make an appointment with the PCP within 7 days following discharge from the facility) Diet: Carb Consistent or DM2 Addtl Attending Provider Instructions: Please take precautions to avoid falls Keep on your LifeVest as advised by the executive community planning Take your medications as advised Continue IV antibiotics till 09/13/2024 as advised by ID specialist and continue to monitor blood test as advised by him as well Please note that your metoprolol dose has been decreased to 25 mg once daily Your iron infusion will be arranged through outpatient bull driver as before Pending Studies at Discharge: No Stand-Alone Forms: My [facility] Skilled Items Patient informed of condition?: Yes DNR: Yes Discharge Level of Care: Skilled Communicable Disease: No Discharge Prognosis: Stable Lines: None Urinary Catheter: No Medications and DC Order Prescriptions: Continued multivitamin Tablet 1 tab PO QAM dutasteride 0.5 mg Capsule 0.5 mg PO QAM rosuvastatin 40 mg Tablet 40 mg PO HS timolol maleate 0.25 % drops 2 drp OPB QAM latanoprost 0.005 % drops 1 drp OPB HS cyanocobalamin (vitamin B-12) [Vitamin B-12] 1,000 mcg Tablet 1,000 mcg PO DAILY ascorbic acid (vitamin C) [Vitamin C] 1,000 mg Tablet 1 g PO BID aspirin 81 mg Tablet,Chewable 81 mg PO DAILY folic acid 1 mg Tablet 1 mg PO DAILY cholecalciferol (vitamin D3) [Vitamin D3] 125 mcg (5,000 unit) Tablet 125 mcg PO DAILY Eliquis 5 mg Tablet 5 mg PO BID Qty: 60 0RF amiodarone 200 mg Tablet 200 mg PO BIDM Qty: 60 0RF guaifenesin [Mucinex] 600 mg Tablet Extended Release 12hr 600 mg PO Q12 Qty: 10 0RF docusate sodium 100 mg Capsule 100 mg PO BID Qty: 10 0RF tamsulosin 0.4 mg Capsule 0.4 mg PO HS Qty: 30 0RF glimepiride 2 mg Tablet 2 mg PO QAM Qty: 30 0RF ceftriaxone 2 gram recon soln 2 g IV Q12H Rx Instructions: TAKE UNTIL 09/13/24 ampicillin sodium 2 gram recon soln 2 g IV Q4H Rx Instructions: TAKE UNTIL 09/13/24 metformin 1,000 mg Tablet 1,000 mg PO BID Qty: 30 0RF pantoprazole 40 mg tablet,delayed release (DR/EC) 40 mg PO QAM oxycodone 5 mg tablet 5 mg PO Q6 PRN (Reason: SEVERE PAIN) ferrous sulfate 325 mg (65 mg iron) Tablet 325 mg PO DAILY dapagliflozin propanediol [Farxiga] 10 mg Tablet 10 mg PO DAILY torsemide 40 mg Tablet 40 mg PO QAM Saccharomyces boulardii 250 mg Capsule 250 mg PO DAILY acetaminophen [Tylenol] 325 mg Tablet 650 mg PO Q4 PRN (Reason: Fever > 100.4 F Or Pain) sodium chloride 0.9 % Solution 10 ml IV Q6H Rx Instructions: administer before and after IV drug administration as part of [facility] protocol Changed metoprolol succinate 50 mg Tablet Extended Release 24 Hr 25 mg PO QAM Qty: 30 0RF Discharge Orders: Discharge Order (Routine); Ordered 08/23/24 Ordered By: Mukund Ibanez Admission Data Admit Date/Time: 08/16/24 17:33 Attending Provider: Mukund Ibanez Admit Provider: Odilia Botello Primary Care Provider: Declan Dejesus Other Providers: Odilia Botello; Angus Simms; Beth Croft; Conor Allen; Mandeep Shrestha; Good Crenshaw; Woody Sethi; Yonatan Durham; Zina Acuna; Divya Nation; Fernando Estes Ashley M.; Floyd [place]; Mario Newell; Adalgisa Glass; Diana Diana; Kareen Boyd; Nena Aponte; Paul Castillo; Nai Gusman; Bernarda Brooke; Sonu Carl; [facility] Other Interventions: Discharge Summary Assessment (RN) Last Done: 08/23/24 08:17
== END 2024-08-23 09:49 | DRG 377 ==
LOC: ED 14:44 → 2S 17:33 → SUATTDRO 17:33 → 2S 20:12